=== PATIENT | female | born 1945 | race Caucasian/White ===

== ENCOUNTER 2018-07-31 06:57 | Inpatient (IN) | payer MEDICARE, OTHER ==
[2018-07-31 07:40] LABS: Basophils % (Auto) 0.5 % (0.0-1.8); Eosinophils # (Auto) 0.1 K/mm3 (0.0-0.4); Eosinophils % (Auto) 0.6 % (0.0-4.3); Hematocrit 25.4 % (30.3-42.9); Hemoglobin 8.3 gm/dl (10.1-14.3); Lymphocytes # (Auto) 0.5 K/mm3 (1.2-5.4); Mean Corpuscular HGB Conc 33 % (30-34); Mean Corpuscular Volume 76 fl (79-97); Monocytes # (Auto) 0.5 K/mm3 (0.0-0.8); Platelet Count 275 K/mm3 (140-440); Red Blood Count 3.35 M/mm3 (3.65-5.03); Red Cell Distribution Width 18.6 % (13.2-15.2)
[2018-07-31] MEDS ORDERED: NACL 0.9% 500 ML 500 ML IV ONE (07:59)
[2018-07-31] MEDS ORDERED: ZOFRAN IV ONE ×2 (07:59→10:54)
--- NOTE | 2018-07-31 08:00 | Emergency Department Report ---
ED Abdominal Pain HPI - General Chief Complaint: Nausea/Vomiting/Diarrhea Stated Complaint: NNV Time Seen by Provider: 07/31/18 07:54 Source: patient Mode of arrival: Ambulatory Limitations: No Limitations - History of Present Illness Initial Comments: Patient is a 73-year-old female who presents to emergency room for nausea vomiting and epigastric abdominal pain. Patient states her symptoms started last night at 8 PM and are worsening. Patient states her abdominal pain is a 10 out of 10. Patient states her pain is worse with vomiting and movement. Patient states her pain is better with rest. Patient states her pain is not radiating. Patient states she has a past medical history of diabetes, hypertension and GERD. Medication list reviewed. MD Complaint: abdominal pain -: Sudden Location: epigastric Radiation: none Migration to: no migration Severity: severe Severity scale (0 -10): 10 Quality: sharp Consistency: constant Improves With: eating, vomiting, movement Worsens With: rest Associated Symptoms: nausea, vomiting. denies: diarrhea, fever, chills, constipation, dysuria, hematemesis, hematochezia, melena, hematuria, syncope - Related Data Home Medications Medication Instructions Recorded Confirmed Last Taken Furosemide [Lasix] 20 mg PO QDAY 07/31/18 07/31/18 Unknown HYDROcodone/APAP 5-325 [[place] 1 each PO Q4HR PRN 07/31/18 07/31/18 Unknown 5/325] Pantoprazole Sodium [Protonix] 40 mg PO DAILY 07/31/18 07/31/18 Unknown amLODIPine [Norvasc] 10 mg PO DAILY 07/31/18 07/31/18 Unknown hydrALAZINE [Apresoline TAB] 100 mg PO TID 07/31/18 07/31/18 Unknown Allergies Allergy/AdvReac Type Severity Reaction Status Date / Time No Known Allergies Allergy Verified 07/31/18 07:06 ED Review of Systems ROS: Stated complaint: NNV Other details as noted in HPI Constitutional: denies: chills, fever Eyes: denies: eye pain, eye discharge, vision change ENT: denies: ear pain, throat pain Respiratory: denies: cough, shortness of breath, wheezing Cardiovascular: denies: chest pain, palpitations Endocrine: no symptoms reported Gastrointestinal: abdominal pain, nausea, vomiting. denies: diarrhea Genitourinary: denies: urgency, dysuria, discharge Musculoskeletal: denies: back pain, joint swelling, arthralgia Skin: denies: rash, lesions Neurological: denies: headache, weakness, paresthesias Psychiatric: denies: anxiety, depression Hematological/Lymphatic: denies: easy bleeding, easy bruising ED Past Medical Hx - Past Medical History Previous Medical History?: Yes Hx Hypertension: Yes Hx Diabetes: Yes Hx Liver Disease: No Hx Renal Disease: No - Surgical History Past Surgical History?: No - Family History Family history: no significant - Social History Smoking Status: Never Smoker Substance Use Type: None - Medications Home Medications: Home Medications Medication Instructions Recorded Confirmed Last Taken Type Furosemide [Lasix] 20 mg PO QDAY 07/31/18 07/31/18 Unknown History HYDROcodone/APAP 5-325 [[place] 1 each PO Q4HR PRN 07/31/18 07/31/18 Unknown History 5/325] Pantoprazole Sodium [Protonix] 40 mg PO DAILY 07/31/18 07/31/18 Unknown History amLODIPine [Norvasc] 10 mg PO DAILY 07/31/18 07/31/18 Unknown History hydrALAZINE [Apresoline TAB] 100 mg PO TID 07/31/18 07/31/18 Unknown History ED Physical Exam - General Limitations: No Limitations General appearance: alert, in no apparent distress - Head Head exam: Present: atraumatic, normocephalic - Eye Eye exam: Present: normal appearance - ENT ENT exam: Present: mucous membranes dry - Neck Neck exam: Present: normal inspection - Respiratory Respiratory exam: Present: normal lung sounds bilaterally. Absent: respiratory distress - Cardiovascular Cardiovascular Exam: Present: regular rate, normal rhythm. Absent: systolic murmur, diastolic murmur, rubs, gallop - GI/Abdominal GI/Abdominal exam: Present: soft, tenderness (epigastric tenderness), normal bowel sounds - Extremities Exam Extremities exam: Present: normal inspection - Back Exam Back exam: Present: normal inspection - Neurological Exam Neurological exam: Present: alert, oriented X3 - Psychiatric Psychiatric exam: Present: normal affect, normal mood - Skin Skin exam: Present: warm, dry, intact, normal color. Absent: rash ED Course Vital Signs 07/31/18 07/31/18 07/31/18 07:09 07:41 07:45 Temperature 97.9 F Pulse Rate 90 88 Respiratory 16 11 L 13 Rate Blood Pressure Blood Pressure 164/65 [Left] O2 Sat by Pulse 95 93 Oximetry 07/31/18 07/31/18 07/31/18 08:00 08:15 08:30 Temperature Pulse Rate 88 88 88 Respiratory 17 19 10 L Rate Blood Pressure 159/65 160/65 153/65 Blood Pressure [Left] O2 Sat by Pulse 93 89 91 Oximetry 07/31/18 07/31/18 07/31/18 08:45 08:48 09:00 Temperature 97.7 F Pulse Rate 86 87 Respiratory 17 16 Rate Blood Pressure 154/64 158/66 Blood Pressure [Left] O2 Sat by Pulse 92 91 Oximetry 07/31/18 07/31/18 07/31/18 09:21 09:31 09:45 Temperature Pulse Rate 102 H 86 86 Respiratory 16 15 Rate Blood Pressure 158/66 158/66 158/66 Blood Pressure [Left] O2 Sat by Pulse 96 92 94 Oximetry 07/31/18 07/31/18 07/31/18 10:01 10:15 10:30 Temperature Pulse Rate 87 86 86 Respiratory 20 15 10 L Rate Blood Pressure 158/66 153/67 155/70 Blood Pressure [Left] O2 Sat by Pulse 94 94 91 Oximetry 07/31/18 07/31/18 07/31/18 10:45 11:00 11:15 Temperature Pulse Rate 86 84 91 H Respiratory 14 10 L 21 Rate Blood Pressure 153/66 153/66 150/67 Blood Pressure [Left] O2 Sat by Pulse 93 92 94 Oximetry - Reevaluation(s) Reevaluation #1: Discussed all results with patient. Patient will be admitted to the hospitalist service. Patient agrees to plan of care. Patient denies history of kidney problems but does have history of anemia She is complaining of worsening abdominal pain. Patient was given Dilaudid and more saline. 07/31/18 10:53 - Consultations Consultation #1: Hospitalist consulted for admission. Hospitalist to admit patient. Hospitalist to assume care patient. 07/31/18 10:42 ED Medical Decision Making - Lab Data Result diagrams: 07/31/18 07:30 07/31/18 07:30 - Radiology Data Radiology results: report reviewed CT ABDOMEN PELVIS WITHOUT CONTRAST: HISTORY: abdominal pain. COMPARISON: none. TECHNIQUE: Helical CT in 1.25mm intervals without IV contrast. Sagittal and coronal reconstructions. FINDINGS: Lung bases: Normal heart size. Small layering left pleural effusion and moderate layering right pleural effusion are identified. Mild atelectatic changes are identified in the lower lung zones. No obvious infiltrate. Liver: Normal. Biliary system: Cholecystectomy changes. Pancreas: Normal. Spleen: Normal. Kidneys/ureters/bladder: Normal. Adrenal glands: Normal. Aorta: Mild scattered calcifications. No aneurysm. Intestines: There are a few scattered diverticula throughout the colon. No evidence for bowel obstruction or focal inflammation. Appendix: Normal. Pelvic viscera: Hysterectomy changes are suspected. The ovaries are unremarkable. Ascites: None. Adenopathy: None. Musculoskeletal: Moderate thoracolumbar spondylosis is identified. No evidence for fracture or suspicious bony lesion. IMPRESSION: No acute abdominal process is identified. Bilateral pleural effusions. Mild diverticulosis of the colon. Surgical changes as described. - Medical Decision Making Patient is a 73-year-old female presents emergency room with abdominal pain, nausea and vomiting. Patient's labs are unremarkable except for acute renal failure, anemia and electrolyte imbalances. Patient was admitted to the hospitalist service. Patient's CT scan is negative. - Differential Diagnosis gastroenteritis. Abdominal pain. Nausea and vomiting. Critical Care Time: Yes Critical care attestation.: If time is entered above; I have spent that time in minutes in the direct care of this critically ill patient, excluding procedure time. Critical Care Time: 35 minutes ED Disposition Clinical Impression: Acute renal insufficiency, Hyponatremia, Gastroenteritis, Dehydration Abdominal pain Qualifiers: Abdominal location: epigastric Qualified Code(s): R10.13 - Epigastric pain UTI (urinary tract infection) Qualifiers: Urinary tract infection type: acute cystitis Hematuria presence: with hematuria Qualified Code(s): N30.01 - Acute cystitis with hematuria Intractable nausea and vomiting Qualifiers: Vomiting type: unspecified Qualified Code(s): R11.2 - Nausea with vomiting, unspecified Renal failure Qualifiers: Renal failure chronicity: acute Acute renal failure type: unspecified Qualified Code(s): N17.9 - Acute kidney failure, unspecified Anemia Qualifiers: Anemia type: unspecified type Qualified Code(s): D64.9 - Anemia, unspecified Disposition: DC-09 OP ADMIT IP TO THIS HOSP Is pt being admited?: Yes Does the pt Need Aspirin: No Condition: Critical Time of Disposition: 10:53
[2018-07-31 08:03] LABS: Albumin 3.2 g/dL (3.9-5); Calcium 8.4 mg/dL (8.4-10.2)
[2018-07-31 08:09] LABS: Bacteria,Urine 2+ /HPF (Negative); Bilirubin,Urine NEG (Negative); Blood,Urine NEG (Negative); Color,Urine Yellow (Yellow); Mucus,Urine FEW /HPF; Urobilinogen,Urine < 2.0 mg/dL (<2.0)
[2018-07-31 08:13] LABS: WBC,Urine > 182.0 /HPF (0.0-6.0)
--- NOTE | 2018-07-31 09:42 | Cat Scan Report ---
CT ABDOMEN PELVIS WITHOUT CONTRAST: HISTORY: abdominal pain. COMPARISON: none. TECHNIQUE: Helical CT in 1.25mm intervals without IV contrast. Sagittal and coronal reconstructions. FINDINGS: Lung bases: Normal heart size. Small layering left pleural effusion and moderate layering right pleural effusion are identified. Mild atelectatic changes are identified in the lower lung zones. No obvious infiltrate. Liver: Normal. Biliary system: Cholecystectomy changes. Pancreas: Normal. Spleen: Normal. Kidneys/ureters/bladder: Normal. Adrenal glands: Normal. Aorta: Mild scattered calcifications. No aneurysm. Intestines: There are a few scattered diverticula throughout the colon. No evidence for bowel obstruction or focal inflammation. Appendix: Normal. Pelvic viscera: Hysterectomy changes are suspected. The ovaries are unremarkable. Ascites: None. Adenopathy: None. Musculoskeletal: Moderate thoracolumbar spondylosis is identified. No evidence for fracture or suspicious bony lesion. IMPRESSION: No acute abdominal process is identified. Bilateral pleural effusions. Mild diverticulosis of the colon. Surgical changes as described.
[2018-07-31] MEDS ORDERED: DILAUDID IV ONE (10:54)
[2018-07-31] MEDS ORDERED: NACL 0.9% 1000 ML 1,000 ML IV ONE (10:54)
[2018-07-31] MEDS ORDERED: NACL 0.9% 1000 ML 1,000 ML IV SCH (11:00)
[2018-07-31] MEDS ORDERED: PROVENTIL IH PRN (11:00)
[2018-07-31] MEDS ORDERED: TYLENOL PO PRN (11:00)
[2018-07-31] MEDS ORDERED: SODIUM CHLORIDE FLUSH SYRINGE 10 ML IV PRN (11:00)
[2018-07-31] MEDS ORDERED: D50W (25GM) Syringe IV PRN ×2 (11:01→11:05)
--- NOTE | 2018-07-31 11:05 | History and Physical Report ---
History of Present Illness Date of examination: 07/31/18 Date of admission: 07/31/2018 Chief complaint: Abdominal Pain, Nausea and vomiting. History of present illness: Patient is a 73-year-old female with past medical history of hypertension, GERD, diastolic congestive heart failure, diabetes mellitus, acute kidney injury with an unknown baseline but appears to have a CK D recent hospitalization at [facility] with a creatinine of 1.6, pulmonary edema with a recent contrast-induced nephropathy. I do not have the last creatinine number on discharge from the hospital when she was seen on the . She presents to the hospital complaining of abdominal pain epigastric in nature with associated nausea vomiting worsening to the early hours of this morning. Based on around 8 PM. She was admitted with her in intensity. At the hospital the pain has subsi ded somewhat but still present. Patient was noted to have significantly normal kidney function numbers. She also has been unable to keep any food down. Past History Past Medical History: diabetes, hypertension, hyperlipidemia Past Surgical History: cholecystectomy Social history: no significant social history, full code. denies: smoking, alcohol abuse, prescription drug abuse, IV drug use Family history: no significant family history Medications and Allergies Allergies Allergy/AdvReac Type Severity Reaction Status Date / Time No Known Allergies Allergy Verified 07/31/18 07:06 Home Medications Medication Instructions Recorded Confirmed Last Taken Type Furosemide [Lasix] 20 mg PO QDAY 07/31/18 07/31/18 Unknown History HYDROcodone/APAP 5-325 [[place] 1 each PO Q4HR PRN 07/31/18 07/31/18 Unknown History 5/325] Pantoprazole Sodium [Protonix] 40 mg PO DAILY 07/31/18 07/31/18 Unknown History amLODIPine [Norvasc] 10 mg PO DAILY 07/31/18 07/31/18 Unknown History hydrALAZINE [Apresoline TAB] 100 mg PO TID 07/31/18 07/31/18 Unknown History Active Meds: Active Medications Acetaminophen (Tylenol) 650 mg PO Q4H PRN PRN Reason: Pain MILD(1-3)/Fever >100.5/CASTELLANOS Albuterol (Proventil) 2.5 mg IH Q3HRT PRN PRN Reason: Shortness Of Breath Dextrose (D50w (25gm) Syringe) 50 ml IV PRN PRN PRN Reason: Hypoglycemia Sodium Chloride (Nacl 0.9% 1000 Ml) 1,000 mls @ 999 mls/hr IV BOLUS ONE Stop: 07/31/18 11:54 Sodium Chloride (Nacl 0.9% 1000 Ml) 1,000 mls @ 150 mls/hr IV DIRECT TERA Stop: 08/01/18 23:59 Ceftriaxone Sodium (Rocephin/Ns 1 Gm/50 Ml) 1 gm in 50 mls @ 100 mls/hr IV Q24HR TERA; Protocol Morphine Sulfate (Morphine) 2 mg IV Q4H PRN PRN Reason: Pain, Moderate (4-6) Ondansetron HCl (Zofran) 4 mg IV Q4H PRN PRN Reason: Nausea And Vomiting Sodium Chloride (Sodium Chloride Flush Syringe 10 Ml) 10 ml IV BID TERA Sodium Chloride (Sodium Chloride Flush Syringe 10 Ml) 10 ml IV PRN PRN PRN Reason: LINE FLUSH Exam - Physical Exam Narrative exam: VITAL SIGNS: Reviewed. GENERAL: The patient appeared well nourished and normally developed, Vital signs as documented. HEAD: No signs of head trauma. EYES: Pupils are equal. Extraocular motions intact. EARS: Hearing grossly intact. MOUTH: Oropharynx is normal. NECK: No adenopathy, no JVD. Mildly tender on the right side. CHEST: Chest with clear breath sounds bilaterally. No wheezes, rales, or rhonchi. CARDIAC: Regular rate and rhythm. S1 and S2, without murmurs, gallops, or rubs. VASCULAR: No Edema. Peripheral pulses normal and equal in all extremities. ABDOMEN: Tender at epigastric region with no rebound or guarding, Soft, non distended. no masses palpated. Bowel Sounds normal. MUSCULOSKELETAL: Good range of motion of all major joints. Extremities without clubbing, cyanosis or edema. NEUROLOGIC EXAM: Alert and oriented x 3 No focal sensory or strength deficits. Speech normal. Follows commands. PSYCHIATRIC: Mood normal. SKIN: No rash or lesions. - Constitutional Vitals: Temp Pulse Resp BP Pulse Ox 97.7 F 86 10 L 155/70 91 07/31/18 08:48 07/31/18 10:30 07/31/18 10:30 07/31/18 10:30 07/31/18 10:30 Results - Labs CBC & Chem 7: 07/31/18 07:30 07/31/18 07:30 Labs: Laboratory Last Values WBC 9.5 K/mm3 (4.5-11.0) 07/31/18 07:30 RBC 3.35 M/mm3 (3.65-5.03) L 07/31/18 07:30 Hgb 8.3 gm/dl (10.1-14.3) L 07/31/18 07:30 Hct 25.4 % (30.3-42.9) L 07/31/18 07:30 MCV 76 fl (79-97) L 07/31/18 07:30 MCH 25 pg (28-32) L 07/31/18 07:30 MCHC 33 % (30-34) 07/31/18 07:30 RDW 18.6 % (13.2-15.2) H 07/31/18 07:30 Plt Count 275 K/mm3 (140-440) 07/31/18 07:30 Lymph % (Auto) 5.0 % (13.4-35.0) L 07/31/18 07:30 [place] % (Auto) 5.0 % (0.0-7.3) 07/31/18 07:30 Eos % (Auto) 0.6 % (0.0-4.3) 07/31/18 07:30 Baso % (Auto) 0.5 % (0.0-1.8) 07/31/18 07:30 Lymph # 0.5 K/mm3 (1.2-5.4) L 07/31/18 07:30 [place] # 0.5 K/mm3 (0.0-0.8) 07/31/18 07:30 Eos # 0.1 K/mm3 (0.0-0.4) 07/31/18 07:30 Baso # 0.0 K/mm3 (0.0-0.1) 07/31/18 07:30 Seg Neutrophils % 88.9 % (40.0-70.0) H 07/31/18 07:30 Seg Neutrophils # 8.4 K/mm3 (1.8-7.7) H 07/31/18 07:30 Sodium 126 mmol/L (137-145) L 07/31/18 07:30 Potassium 4.4 mmol/L (3.6-5.0) 07/31/18 07:30 Chloride 90.2 mmol/L (98-107) L 07/31/18 07:30 Carbon Dioxide 20 mmol/L (22-30) L 07/31/18 07:30 20 mmol/L 07/31/18 07:30 BUN 37 mg/dL (7-17) H 07/31/18 07:30 2.7 mg/dL (0.7-1.2) H 07/31/18 07:30 Estimated GFR 17 ml/min 07/31/18 07:30 14 % 07/31/18 07:30 Glucose 198 mg/dL (65-100) H 07/31/18 07:30 Calcium 8.4 mg/dL (8.4-10.2) 07/31/18 07:30 0.30 mg/dL (0.1-1.2) 07/31/18 07:30 AST 106 units/L (5-40) H 07/31/18 07:30 ALT 76 units/L (7-56) H 07/31/18 07:30 99 units/L (35-129) 07/31/18 07:30 6.8 g/dL (6.3-8.2) 07/31/18 07:30 3.2 g/dL (3.9-5) L 07/31/18 07:30 0.9 % 07/31/18 07:30 34 units/L (13-60) 07/31/18 07:30 Yellow (Yellow) 07/31/18 07:58 Cloudy (Clear) 07/31/18 07:58 5.0 (5.0-7.0) 07/31/18 07:58 Ur Specific [place] 1.011 (1.003-1.030) 07/31/18 07:58 100 mg/dl mg/dL (Negative) 07/31/18 07:58 Neg mg/dL (Negative) 07/31/18 07:58 Neg mg/dL (Negative) 07/31/18 07:58 Neg (Negative) 07/31/18 07:58 Neg (Negative) 07/31/18 07:58 Neg (Negative) 07/31/18 07:58 < 2.0 mg/dL (<2.0) 07/31/18 07:58 Ur Leukocyte Esterase Lg (Negative) 07/31/18 07:58 > 182.0 /HPF (0.0-6.0) H 07/31/18 07:58 12.0 /HPF (0.0-6.0) 07/31/18 07:58 U Epithel Cells (Auto) 1.0 /HPF (0-13.0) 07/31/18 07:58 2+ /HPF (Negative) 07/31/18 07:58 3+ /HPF 07/31/18 07:58 Few /HPF 07/31/18 07:58 3+ /HPF 07/31/18 07:58 Assessment and Plan Assessment and plan: Patient is a 73-year-old female with past medical history of hypertension, GERD, diastolic congestive heart failure, diabetes mellitus, acute kidney injury with an unknown baseline but appears to have a CK D recent hospitalization at [facility] with a creatinine of 1.6, pulmonary edema with a recent contrast-induced nephropathy. I do not have the last creatinine number on discharge from the hospital when she was seen on the . She presents to the hospital complaining of abdominal pain epigastric in nature with associated nausea vomiting worsening to the early hours of this morning. Based on around 8 PM. She was admitted with her in intensity. At the hospital the pain has subsided somewhat but still present. Patient was noted to have significantly normal kidney function numbers. She also has been unable to keep any food down. ROS except as noted in HPI all 14 point system has been reviewed with patient and otherwise negative CT ABDOMEN PELVIS WITHOUT CONTRAST: No acute abdominal process is identified. Bilateral pleural effusions. Mild diverticulosis of the colon. Acute kidney injury secondary to visible nephropathy on chronic kidney disease stage III Recent diagnosis of contrast-induced nephropathy Acute cystitis with no evidence of sepsis HypoNatremia Anemia of chronic disease Peritoneal irritation Abdominal pain epigastric in nature Acute gastroenteritis stable diastolic congestive heart failure Recent pulmonary edema Bilateral pleural effusions Diabetes mellitus with hyperglycemia Hypertension Obesity Plan Admit patient to medical surgical unit. IV hydration and monitor Na levels also Monitor pulmonary status, sooner recent pulmonary edema with underlying congestive heart failure diastolic in nature Resume medications except the nephrotoxic medication Start patient on Rocephin. IV. Obtain urine culture Nephrology consult Plan of care discussed with the patient and family at bedside DVT prophylaxis Advance Directives: Yes Plan of care discussed with patient/family: Yes
[2018-07-31] MEDS ORDERED: MAXIPIME/NS 2 GM/100 ML 2 GM/100 ML BAG IV ONE (11:08)
[2018-07-31 11:47] LABS: Creatinine,Urine 108.9 mg/dL (0.1-20.0); Protein/Creatinine Ratio,Urine 1.54
--- NOTE | 2018-07-31 12:18 | Ultrasound Report ---
ULTRASOUND RENAL BILATERAL HISTORY: FLORIDALMA. TECHNIQUE: transabdominal ultrasound with color Doppler interrogation. COMPARISON: none. FINDINGS: The right kidney measures 10.1cm. Right renal cortex: 1.5cm. The left kidney measures 9.7cm. Left renal cortex: 1.3cm. The kidneys are normal size, contour and position. There is increased renal cortical echotexture bilaterally consistent with nonspecific renal parenchymal disease. Corticomedullary differentiation is preserved. A 2.8 cm cyst is noted in the superior left kidney. No evidence for mass, nephrolithiasis, hydronephrosis or perinephric fluid. The views of the bladder and the region of the ureters appear normal. IMPRESSION: Nonspecific renal parenchymal disease. Left renal cyst.
[2018-07-31] MEDS: ZOFRAN IV PRN (13:27)
[2018-07-31] MEDS: HumaLOG SUB-Q SCH ×2 (13:31→22:47)
[2018-07-31] MEDS: ROCEPHIN/NS 1 GM/50 ML 1 GM/50 ML BAG IV SCH (15:50)
[2018-07-31 16:20] LABS: Alanine Aminotransferase 77 units/L (7-56); Albumin 3.2 g/dL (3.9-5); Calcium 8.4 mg/dL (8.4-10.2)
[2018-07-31 16:24] LABS: Bilirubin,Direct < 0.2 mg/dL (0-0.2)
[2018-07-31] MEDS ORDERED: BENTYL PO PRN (19:02)
[2018-07-31] MEDS: MORPHINE IV PRN (20:15)
[2018-08-01] MEDS: ZOFRAN IV PRN ×2 (02:39→07:40)
[2018-08-01 06:58] LABS: Basophils % (Auto) 0.2 % (0.0-1.8); Eosinophils % (Auto) 0.1 % (0.0-4.3); Hematocrit 23.7 % (30.3-42.9); Hemoglobin 7.8 gm/dl (10.1-14.3); Lymphocytes # (Auto) 0.6 K/mm3 (1.2-5.4); Lymphocytes % (Auto) 6.3 % (13.4-35.0); Mean Corpuscular HGB Conc 33 % (30-34); Mean Corpuscular Volume 76 fl (79-97); Monocytes # (Auto) 0.6 K/mm3 (0.0-0.8); Monocytes % (Auto) 6.9 % (0.0-7.3); Platelet Count 291 K/mm3 (140-440); Red Blood Count 3.11 M/mm3 (3.65-5.03); Red Cell Distribution Width 18.8 % (13.2-15.2)
[2018-08-01 07:25] LABS: Calcium 8.3 mg/dL (8.4-10.2)
[2018-08-01] MEDS: MORPHINE IV PRN ×2 (07:40→22:18)
[2018-08-01] MEDS: SODIUM CHLORIDE FLUSH SYRINGE 10 ML IV SCH ×2 (10:16→22:28)
[2018-08-01] MEDS: ROCEPHIN/NS 1 GM/50 ML 1 GM/50 ML BAG IV SCH (10:16)
[2018-08-01 11:11] LABS: Hepatitis B Surface Antigen Non-Reactive (Negative); Hepatitis C Virus Antibody Non-Reactive (NonReactive)
--- NOTE | 2018-08-01 11:59 | Consultation ---
History of Present Illness - Reason for Consult Consult date: 08/01/18 - History of Present Illness This is a 73 year old female who presents to the hospital for abdominal pain with associated nausea and vomiting that has been present for 2 days now per son at bedside. Patient does not speak Telugu but son at bedside does. On evaluation patient was noted to have an elevated serum creatinine of 2.4. Labs from [facility] showed 07/24/18-serum creatinine was 2.51, 07/25/18-serum creatinine was 2.23, 07/26/18 was 1.8. Patient was hospitalized there in [facility] for Acute Diastolic Heart failure and underwent CTA of Chest with IV contrast during that hospitalization and was diagnosed with RASHEL vs Cardiorenal Syndrome as it relates to her renal disease. Her serum creatinine prior to contrast was 1.6 on 07/22/18. She was discharged on 07/29/18 from [facility] on Lasix 20 mg po daily. Renal ultrasound done showed 2.8cm cyst on left kidney and no hydronephrosis. Patient has history of Hypertension, Diabetes Mellitus and GERD. We are being consulted for management of this patient's Acute on Chronic Kidney Disease. Past History Past Medical History: diabetes, hypertension, hyperlipidemia Past Surgical History: cholecystectomy Social history: no significant social history, full code. denies: smoking, alcohol abuse, prescription drug abuse, IV drug use Family history: no significant family history Medications and Allergies Allergies Allergy/AdvReac Type Severity Reaction Status Date / Time No Known Allergies Allergy Verified 07/31/18 07:06 Home Medications Medication Instructions Recorded Confirmed Last Taken Type Furosemide [Lasix] 20 mg PO QDAY 07/31/18 07/31/18 Unknown History HYDROcodone/APAP 5-325 [[place] 1 each PO Q4HR PRN 07/31/18 07/31/18 Unknown History 5/325] Pantoprazole Sodium [Protonix] 40 mg PO DAILY 07/31/18 07/31/18 Unknown History Tamsulosin 0.4 mg PO HS 07/31/18 07/31/18 07/30/18 21:00 History amLODIPine [Norvasc] 10 mg PO DAILY 07/31/18 07/31/18 Unknown History hydrALAZINE [Apresoline TAB] 100 mg PO TID 07/31/18 07/31/18 Unknown History Active Meds: Active Medications Acetaminophen (Tylenol) 650 mg PO Q4H PRN PRN Reason: Pain MILD(1-3)/Fever >100.5/CASTELLANOS Albuterol (Proventil) 2.5 mg IH Q3HRT PRN PRN Reason: Shortness Of Breath Dextrose (D50w (25gm) Syringe) 50 ml IV PRN PRN PRN Reason: Hypoglycemia Dicyclomine HCl (Bentyl) 10 mg PO QID PRN PRN Reason: Nausea And Vomiting Hydralazine HCl (Apresoline) 10 mg IV Q4H PRN PRN Reason: SBP>160 OR DBP>105 Ceftriaxone Sodium (Rocephin/Ns 1 Gm/50 Ml) 1 gm in 50 mls @ 100 mls/hr IV Q24HR [facility]; Protocol Last Admin: 08/01/18 10:16 Dose: 100 mls/hr Documented by: Dextrose/Sodium Chloride (D5ns) 1,000 mls @ 100 mls/hr IV DIRECT TERA Insulin Human Lispro (Humalog) 0 unit SUB-Q Q6HR [facility]; Protocol Last Admin: 07/31/18 22:47 Dose: 2 unit Documented by: Morphine Sulfate (Morphine) 2 mg IV Q4H PRN PRN Reason: Pain, Moderate (4-6) Last Admin: 08/01/18 07:40 Dose: 2 mg Documented by: Ondansetron HCl (Zofran) 4 mg IV Q4H PRN PRN Reason: Nausea And Vomiting Last Admin: 08/01/18 07:40 Dose: 4 mg Documented by: Promethazine HCl (Phenergan) 12.5 mg ME Q6H PRN PRN Reason: Nausea And Vomiting Sodium Chloride (Sodium Chloride Flush Syringe 10 Ml) 10 ml IV BID TERA Last Admin: 08/01/18 10:16 Dose: 10 ml Documented by: Sodium Chloride (Sodium Chloride Flush Syringe 10 Ml) 10 ml IV PRN PRN PRN Reason: LINE FLUSH Review of Systems Constitutional: fatigue, poor appetite, no weight loss, no weight gain, no fever, no chills, no sweats Ears, nose, mouth and throat: no ear pain, no ear discharge, no tinnitis, no decreased hearing, no nose pain, no nasal congestion, no nasal discharge Cardiovascular: no chest pain, no orthopnea, no palpitations, no rapid/irregular heart beat, no edema, no syncope, no lightheadedness, no shortness of breath Respiratory: no cough with sputum, no excessive sputum, no hemoptysis, no shortness of breath, no dyspnea on exertion Gastrointestinal: abdominal pain, nausea, vomiting, no diarrhea, no constipation , no change in bowel habits Genitourinary Female: no pelvic pain, no flank pain, no menorrhagia, no dysuria, no urinary frequency, no urgency Musculoskeletal: no neck stiffness, no neck pain, no shooting arm pain, no arm numbness/tingling, no low back pain, no shooting leg pain Integumentary: no rash, no pruritis, no sores, no wounds, no jaundice Neurological: no transient paralysis, no paralysis, no parathesias, no numbness, no tingling, no seizures, no syncope Psychiatric: change in appetite, no memory loss, no change in sleep habits, no sleep disturbances, no insomnia, no hypersomnia Endocrine: no cold intolerance, no heat intolerance, no polyphagia, no excessive thirst, no polydipsia, no polyuria, no nocturia Exam - Vital Signs Vital signs: Vital Signs Temp Pulse Resp BP Pulse Ox 97.9 F 90 16 164/65 95 07/31/18 07:09 07/31/18 07:09 07/31/18 07:09 07/31/18 07:09 07/31/18 07:09 - General Appearance General appearance: well-developed, fatigue EENT: ATNC, PERRL, hearing intact, vision intact Neck: Present: neck supple, trachea midline Respiratory: Decreased Breath Sounds Heart: regular, S1S2 Gastrointestinal: Present: normoactive bowel sounds Integumentary: warm and dry Neurologic: alert and oriented x3 Musculoskeletal: Present: other (no edema) Results - Lab Results 08/01/18 05:07 08/01/18 05:07 Most recent lab results Calcium 8.3 mg/dL (8.4-10.2) L 08/01/18 05:07 108.9 mg/dL (0.1-20.0) H 07/31/18 Unknown 168 mg/dL (5-11.8) H 07/31/18 Unknown Assessment and Plan Acute Renal Failure seconary to prerenal etiology secondary to N/V on CKD stage 3-4 due to HTN and DM, also recent history of RASHEL and diuretics use with Lasix -Renal labs reviewed. Current serum creatinine 2.6 today, yesterdays' serum creatinine was 2.4. -Labs from [facility] showed 07/24/18-serum creatinine was 2.51, 07/25/18-serum creatinine was 2.23, 07/26/18 was 1.8. -Her serum creatinine prior to CTA contrast at [facility] was 1.6 on 07/22/18. -Renal Ultrasound done showed- known left renal cyst. Monitor outpatiently with renal ultrasound. -Patient has compensated Diastolic Heart Failure -Echo at [facility] on 07/22/18 showed LVEF was 62% -Was on Lasix 20 mg po daily at home -Holding home Lasix for now -On IV hydration with NS@ 75 ml/hr -Obtain CXR to assess volume status -Urine lytes reviewed, has proteinuria likely from DM -Monitor I/O's -Obtain daily weights -Renally dose medications -Will monitor renal function closely Nausea/Vomiting: -Abdominal CT- negative for acute process -NPO -On IVF -Has levated liver enzymes -May need GI consult UTI: -On IV Rocephin -On IV fluids -As per primary Hypertension: -Reconcile home medications -No NITIN or ARB for now until renal function stabilizes Diabetes Mellitus: -On insulin a per primary Compensated Diastolic Heart Failure: -Echo at [facility] on 07/22/18 showed LVEF was 62%
[2018-08-01] MEDS ORDERED: PHENERGAN PR PRN (12:30)
[2018-08-01] MEDS: D5NS 1,000 ML IV SCH (12:46)
--- NOTE | 2018-08-01 12:53 | Progress Note ---
Assessment and Plan Assessment and plan: Patient is a 73-year-old female with past medical history of hypertension, GERD, diastolic congestive heart failure, diabetes mellitus, acute kidney injury with an unknown baseline but appears to have a CK D recent hospitalization at [facility] with a creatinine of 1.6, pulmonary edema with a recent contrast-induced nephropathy. I do not have the last creatinine number on discharge from the hospital when she was seen on the . She presents to the hospital complaining of abdominal pain epigastric in nature with associated nausea vomiting worsening to the early hours of this morning. Based on around 8 PM. She was admitted with her in intensity. At the hospital the pain has subsided somewhat but still present. Patient was noted to have significantly normal kidney function numbers. She also has been unable to keep any food down. CT ABDOMEN PELVIS WITHOUT CONTRAST: No acute abdominal process is identified. Bilateral pleural effusions. Mild diverticulosis of the colon. Acute kidney injury secondary to visible nephropathy on chronic kidney disease stage III and underlying HTN and dm Recent diagnosis of contrast-induced nephropathy Intractable Nausea and vomiting Acute cystitis with no evidence of sepsis HypoNatremia Anemia of chronic disease Left renal cyst Peritoneal irritation Abdominal pain epigastric in nature Acute gastroenteritis stable diastolic congestive heart failure Recent pulmonary edema Bilateral pleural effusions Diabetes mellitus with hyperglycemia Hypertension Obesity Plan Continue supportive care IV hydration and monitor Na levels also Continue to Hold lasix CXR cho at [facility] on 07/22/18 showed LVEF was 62% Labs from [facility] showed 07/24/18-serum creatinine was 2.51, 07/25/18-serum creatinine was 2.23, 07/26/18 was 1.8. Monitor pulmonary status, sooner recent pulmonary edema with underlying congestive heart failure diastolic in nature Resume medications except the nephrotoxic medication Start patient on Rocephin IV. Obtain urine culture Nephrology consult Plan of care discussed with the patient and family at bedside DVT prophylaxis History Interval history: Patient seen and examined still with nausea and vomiting, unable to keep any food down. Hospitalist Physical - Physical exam Narrative exam: VITAL SIGNS: Reviewed. GENERAL: The patient appeared well nourished and normally developed, Vital signs as documented. HEAD: No signs of head trauma. EYES: Pupils are equal. Extraocular motions intact. EARS: Hearing grossly intact. MOUTH: Oropharynx is normal. NECK: No adenopathy, no JVD. Mildly tender on the right side. CHEST: Chest with clear breath sounds bilaterally. No wheezes, rales, or rhonchi. CARDIAC: Regular rate and rhythm. S1 and S2, without murmurs, gallops, or rubs. VASCULAR: No Edema. Peripheral pulses normal and equal in all extremities. ABDOMEN: Tender at epigastric region with no rebound or guarding, Soft, non distended. no masses palpated. Bowel Sounds normal. MUSCULOSKELETAL: Good range of motion of all major joints. Extremities without clubbing, cyanosis or edema. NEUROLOGIC EXAM: Alert and oriented x 3 No focal sensory or strength deficits. Speech normal. Follows commands. PSYCHIATRIC: Mood normal. SKIN: stage 1 decub ulcer POA - Constitutional Vitals: Temp Pulse Resp BP Pulse Ox 99.0 F 83 20 162/70 93 08/01/18 08:01 08/01/18 08:05 08/01/18 07:28 08/01/18 08:05 08/01/18 08:05 Results - Labs CBC & Chem 7: 08/01/18 05:07 08/01/18 05:07 Labs: Laboratory Last Values WBC 9.3 K/mm3 (4.5-11.0) 08/01/18 05:07 RBC 3.11 M/mm3 (3.65-5.03) L 08/01/18 05:07 Hgb 7.8 gm/dl (10.1-14.3) L 08/01/18 05:07 Hct 23.7 % (30.3-42.9) L 08/01/18 05:07 MCV 76 fl (79-97) L 08/01/18 05:07 MCH 25 pg (28-32) L 08/01/18 05:07 MCHC 33 % (30-34) 08/01/18 05:07 RDW 18.8 % (13.2-15.2) H 08/01/18 05:07 Plt Count 291 K/mm3 (140-440) 08/01/18 05:07 Lymph % (Auto) 6.3 % (13.4-35.0) L 08/01/18 05:07 [place] % (Auto) 6.9 % (0.0-7.3) 08/01/18 05:07 Eos % (Auto) 0.1 % (0.0-4.3) 08/01/18 05:07 Baso % (Auto) 0.2 % (0.0-1.8) 08/01/18 05:07 Lymph # 0.6 K/mm3 (1.2-5.4) L 08/01/18 05:07 [place] # 0.6 K/mm3 (0.0-0.8) 08/01/18 05:07 Eos # 0.0 K/mm3 (0.0-0.4) 08/01/18 05:07 Baso # 0.0 K/mm3 (0.0-0.1) 08/01/18 05:07 Seg Neutrophils % 86.5 % (40.0-70.0) H 08/01/18 05:07 Seg Neutrophils # 8.0 K/mm3 (1.8-7.7) H 08/01/18 05:07 Sodium 134 mmol/L (137-145) L 08/01/18 05:07 Potassium 4.6 mmol/L (3.6-5.0) 08/01/18 05:07 Chloride 98.5 mmol/L (98-107) 08/01/18 05:07 Carbon Dioxide 19 mmol/L (22-30) L 08/01/18 05:07 21 mmol/L 08/01/18 05:07 BUN 37 mg/dL (7-17) H 08/01/18 05:07 2.6 mg/dL (0.7-1.2) H 08/01/18 05:07 Estimated GFR 18 ml/min 08/01/18 05:07 14 % 08/01/18 05:07 Glucose 149 mg/dL (65-100) H 08/01/18 05:07 POC Glucose 148 (70-105) H 08/01/18 12:00 306 Mosm/kg 07/31/18 12:31 Calcium 8.3 mg/dL (8.4-10.2) L 08/01/18 05:07 0.20 mg/dL (0.1-1.2) 08/01/18 05:07 < 0.2 mg/dL (0-0.2) 07/31/18 15:07 0.1 mg/dL 07/31/18 15:07 AST 87 units/L (5-40) H 08/01/18 05:07 ALT 78 units/L (7-56) H 08/01/18 05:07 100 units/L (35-129) 08/01/18 05:07 6.5 g/dL (6.3-8.2) 08/01/18 05:07 3.0 g/dL (3.9-5) L 08/01/18 05:07 0.9 % 08/01/18 05:07 34 units/L (13-60) 07/31/18 07:30 Yellow (Yellow) 07/31/18 07:58 Cloudy (Clear) 07/31/18 07:58 5.0 (5.0-7.0) 07/31/18 07:58 Ur Specific [place] 1.011 (1.003-1.030) 07/31/18 07:58 100 mg/dl mg/dL (Negative) 07/31/18 07:58 Neg mg/dL (Negative) 07/31/18 07:58 Neg mg/dL (Negative) 07/31/18 07:58 Neg (Negative) 07/31/18 07:58 Neg (Negative) 07/31/18 07:58 Neg (Negative) 07/31/18 07:58 < 2.0 mg/dL (<2.0) 07/31/18 07:58 Ur Leukocyte Esterase Lg (Negative) 07/31/18 07:58 > 182.0 /HPF (0.0-6.0) H 07/31/18 07:58 12.0 /HPF (0.0-6.0) 07/31/18 07:58 U Epithel Cells (Auto) 1.0 /HPF (0-13.0) 07/31/18 07:58 2+ /HPF (Negative) 07/31/18 07:58 3+ /HPF 07/31/18 07:58 Few /HPF 07/31/18 07:58 3+ /HPF 07/31/18 07:58 268 Mosm/kg 07/31/18 Unknown 108.9 mg/dL (0.1-20.0) H 07/31/18 Unknown Protein/Creatinin Ratio 1.54 07/31/18 Unknown 168 mg/dL (5-11.8) H 07/31/18 Unknown Hepatitis A IgM Ab Non-reactive (NonReactive) 08/01/18 09:36 Hep Bs Antigen Non-reactive (Negative) 08/01/18 09:36 Hep B Core IgM Ab Non-reactive (NonReactive) 08/01/18 09:36 Non-reactive (NonReactive) 08/01/18 09:36 Active Medications - Current Medications Current Medications: Generic Name Dose Route Start Last Admin Trade Name Freq PRN Reason Stop Dose Admin Acetaminophen 650 mg 07/31/18 11:00 Tylenol PO Q4H PRN Pain MILD(1-3)/Fever >100.5/CASTELLANOS Albuterol 2.5 mg 07/31/18 11:00 Proventil IH Q3HRT PRN Shortness Of Breath Dextrose 50 ml 07/31/18 11:05 D50w (25gm) Syringe IV PRN PRN Hypoglycemia Dicyclomine HCl 10 mg 07/31/18 19:02 Bentyl PO QID PRN Nausea And Vomiting Hydralazine HCl 10 mg 08/01/18 09:19 Apresoline IV Q4H PRN SBP>160 OR DBP>105 Ceftriaxone Sodium 1 gm in 50 mls @ 100 mls/hr 07/31/18 12:00 08/01/18 10:16 Rocephin/Ns 1 Gm/50 Ml IV 100 mls/hr Q24HR TERA Administration Protocol Dextrose/Sodium Chloride 1,000 mls @ 100 mls/hr 08/01/18 11:00 08/01/18 12:46 D5ns IV 100 mls/hr DIRECT TERA Administration Insulin Human Lispro 0 unit 07/31/18 12:00 07/31/18 22:47 Humalog SUB-Q 2 unit Q6HR TERA Administration Protocol Morphine Sulfate 2 mg 07/31/18 11:01 08/01/18 07:40 Morphine IV 2 mg Q4H PRN Administration Pain, Moderate (4-6) Ondansetron HCl 4 mg 07/31/18 11:00 08/01/18 07:40 Zofran IV 4 mg Q4H PRN Administration Nausea And Vomiting Promethazine HCl 12.5 mg 08/01/18 12:30 08/01/18 12:46 Phenergan NE 12.5 mg Q6H PRN Administration Nausea And Vomiting Sodium Chloride 10 ml 07/31/18 22:00 08/01/18 10:16 Sodium Chloride Flush Syringe 10 Ml IV 10 ml BID TERA Administration Sodium Chloride 10 ml 07/31/18 11:00 Sodium Chloride Flush Syringe 10 Ml IV PRN PRN LINE FLUSH
[2018-08-01] MEDS: HumaLOG SUB-Q SCH ×2 (13:01→23:44)
--- NOTE | 2018-08-01 16:12 | XRay Report ---
PROCEDURE: XR CHEST 1V AP TECHNIQUE: Chest radiograph single view. HISTORY: Heart Failure COMPARISONS: None . FINDINGS: Limited examination due to prominent soft tissue attenuation. Posterior lung bases obscured. Cardiac silhouette size slightly enlarged possibly with mild vascular congestion. Nonspecific patchy and interstitial opacity is noted in both midlungs. Nonspecific consolidation in both lung bases may be pleural effusions. No pneumothorax. No visible acute displaced fracture. IMPRESSION: Nonspecific consolidation in both lung bases may be pleural effusions Slight cardiomegaly Patchy and interstitial opacities in both mid lungs may be edema, vascular congestion, and/or pneumon itis This document is electronically signed by Juan Troncoso MD., August 01 2018 05:10:28 PM ET
--- NOTE | 2018-08-01 19:47 | Gastroenterology Consultation ---
History of Present Illness - Reason for Consult Consult date: 08/01/18 nausea/vomiting, abdominal pain Requesting physician: KOFI DÍAZ - History of Present Illness This is a 73 yo Australian speaking female with pmh of HTN, GERD, diastolic heart fialure, DM, and FLORIDALMA admitted for epigastric abdominal pain and intractable nausea/vomiting. GI consulted for evaluation of nausea/vomiting. Patient was admitted at [facility] for dyspnea and was treated for diastol ic heart failure and ruled out PE with negative CT chest. She was discharged on Friday and starting , she has had frequent nausea/vomiting. Could not keep anything down associated with vomiting and epigastric pain. No hematemesis or blood in the stool/melena. Prior to this, she had not GI issues. No prior EGD or colonoscopy. During [facility] admission, she had blood transfusion for anemia, which is not clear if acute or chronic. Past History Past Medical History: diabetes, hypertension, hyperlipidemia Past Surgical History: cholecystectomy Social history: no significant social history, full code. denies: smoking, alcohol abuse, prescription drug abuse, IV drug use Family history: no significant family history Medications and Allergies Allergies Allergy/AdvReac Type Severity Reaction Status Date / Time No Known Allergies Allergy Verified 07/31/18 07:06 Home Medications Medication Instructions Recorded Confirmed Last Taken Type Furosemide [Lasix] 20 mg PO QDAY 07/31/18 07/31/18 Unknown History HYDROcodone/APAP 5-325 [[place] 1 each PO Q4HR PRN 07/31/18 07/31/18 Unknown Hist ory 5/325] Pantoprazole Sodium [Protonix] 40 mg PO DAILY 07/31/18 07/31/18 Unknown History Tamsulosin 0.4 mg PO HS 07/31/18 07/31/18 07/30/18 21:00 History amLODIPine [Norvasc] 10 mg PO DAILY 07/31/18 07/31/18 Unknown History hydrALAZINE [Apresoline TAB] 100 mg PO TID 07/31/18 07/31/18 Unknown History Active Meds: Active Medications Acetaminophen (Tylenol) 650 mg PO Q4H PRN PRN Reason: Pain MILD(1-3)/Fever >100.5/CASTELLANOS Albuterol (Proventil) 2.5 mg IH Q3HRT PRN PRN Reason: Shortness Of Breath Dextrose (D50w (25gm) Syringe) 50 ml IV PRN PRN PRN Reason: Hypoglycemia Dicyclomine HCl (Bentyl) 10 mg PO QID PRN PRN Reason: Nausea And Vomiting Hydralazine HCl (Apresoline) 10 mg IV Q4H PRN PRN Reason: SBP>160 OR DBP>105 Ceftriaxone Sodium (Rocephin/Ns 1 Gm/50 Ml) 1 gm in 50 mls @ 100 mls/hr IV Q24HR [facility]; Protocol Last Admin: 08/01/18 10:16 Dose: 100 mls/hr Documented by: Dextrose/Sodium Chloride (D5ns) 1,000 mls @ 100 mls/hr IV DIRECT TERA Last Admin: 08/01/18 12:46 Dose: 100 mls/hr Documented by: Insulin Human Lispro (Humalog) 0 unit SUB-Q Q6HR [facility]; Protocol Last Admin: 08/01/18 13:01 Dose: Not Given Documented by: Morphine Sulfate (Morphine) 2 mg IV Q4H PRN PRN Reason: Pain, Moderate (4-6) Last Admin: 08/01/18 07:40 Dose: 2 mg Documented by: Ondansetron HCl (Zofran) 4 mg IV Q4H PRN PRN Reason: Nausea And Vomiting Last Admin: 08/01/18 07:40 Dose: 4 mg Documented by: Promethazine HCl (Phenergan) 12.5 mg SC Q6H PRN PRN Reason: Nausea And Vomiting Last Admin: 08/01/18 12:46 Dose: 12.5 mg Documented by: Sodium Chloride (Sodium Chloride Flush Syringe 10 Ml) 10 ml IV BID [facility] Last Admin: 08/01/18 10:16 Dose: 10 ml Documented by: Sodium Chloride (Sodium Chloride Flush Syringe 10 Ml) 10 ml IV PRN PRN PRN Reason: LINE FLUSH Review of Systems - Review of Systems All systems: negative Constitutional: no weight loss, no weight gain Cardiovascular: no chest pain, no edema Gastrointestinal: abdominal pain, nausea, vomiting, loss of appetite, no diarrhe a, no BRBPR, no melena, no hematochezia Psychiatric: no anxiety Exam - Constitutional Vital Signs: Temp Pulse Resp BP Pulse Ox 97.8 F 94 H 20 155/49 94 08/01/18 13:02 08/01/18 13:02 08/01/18 13:02 08/01/18 13:02 08/01/18 13:37 General appearance: no acute distress, well-nourished - EENT Eyes: EOM intact ENT: hearing intact, clear oral mucosa - Neck Neck: supple - Respiratory Respiratory effort: normal Respiratory: bilateral: CTA - Breasts Breasts: deferred - Cardiovascular Rhythm: regular Heart Sounds: Present: S1 & S2 Extremities: pulses intact, No edema, normal color, Full ROM - Gastrointestinal General gastrointestinal: Present: soft, tender, non-distended, normal bowel sounds - Integumentary Integumentary: Present: clear, warm, dry - Neurologic Neurological: alert and oriented x3 - Psychiatric Psychiatric: appropriate mood/affect - Labs CBC & Chem 7: 08/01/18 05:07 08/01/18 05:07 Lab Results: Laboratory Results - last 24 hr 07/31/18 08/01/18 08/01/18 21:01 05:07 05:07 WBC 9.3 RBC 3.11 L Hgb 7.8 L Hct 23.7 L MCV 76 L MCH 25 L MCHC 33 RDW 18.8 H Plt Count 291 Lymph % (Auto) 6.3 L [place] % (Auto) 6.9 Eos % (Auto) 0.1 Baso % (Auto) 0.2 Lymph # 0.6 L [place] # 0.6 Eos # 0.0 Baso # 0.0 Seg Neutrophils % 86.5 H Seg Neutrophils # 8.0 H Sodium 134 L Potassium 4.6 Chloride 98.5 Carbon Dioxide 19 L Anion Gap 21 BUN 37 H Creatinine 2.6 H Estimated GFR 18 BUN/Creatinine Ratio 14 Glucose 149 H POC Glucose 213 H Calcium 8.3 L Total Bilirubin 0.20 AST 87 H ALT 78 H Alkaline Phosphatase 100 Total Protein 6.5 Albumin 3.0 L Albumin/Globulin Ratio 0.9 Urine Sodium Hepatitis A IgM Ab Hep Bs Antigen Hep B Core IgM Ab Hepatitis C Antibody 08/01/18 08/01/18 08/01/18 07:50 09:36 12:00 WBC RBC Hgb Hct MCV MCH MCHC RDW Plt Count Lymph % (Auto) [place] % (Auto) Eos % (Auto) Baso % (Auto) Lymph # [place] # Eos # Baso # Seg Neutrophils % Seg Neutrophils # Sodium Potassium Chloride Carbon Dioxide Anion Gap BUN Creatinine Estimated GFR BUN/Creatinine Ratio Glucose POC Glucose 150 H 148 H Calcium Total Bilirubin AST ALT Alkaline Phosphatase Total Protein Albumin Albumin/Globulin Ratio Urine Sodium Hepatitis A IgM Ab Non-reactive Hep Bs Antigen Non-reactive Hep B Core IgM Ab Non-reactive Hepatitis C Antibody Non-reactive 08/01/18 08/01/18 08/01/18 13:01 14:48 16:57 WBC RBC Hgb Hct MCV MCH MCHC RDW Plt Count Lymph % (Auto) [place] % (Auto) Eos % (Auto) Baso % (Auto) Lymph # [place] # Eos # Baso # Seg Neutrophils % Seg Neutrophils # Sodium Potassium Chloride Carbon Dioxide Anion Gap BUN Creatinine Estimated GFR BUN/Creatinine Ratio Glucose POC Glucose 174 H 254 H Calcium Total Bilirubin AST ALT Alkaline Phosphatase Total Protein Albumin Albumin/Globulin Ratio Urine Sodium 43 Hepatitis A IgM Ab Hep Bs Antigen Hep B Core IgM Ab Hepatitis C Antibody - Imaging CT Scan: report reviewed Assessment and Plan This is a 73 yo Australian speaking female with pmh of HTN, GERD, diastolic heart failure, DM, and FLORIDALMA admitted for epigastric abdominal pain and intractable nausea/vomiting. GI consulted for evaluation of nausea/vomiting. # Epigastric pain # Intractable nausea/vomiting - symptoms for past 2-3 days since admission at [facility] for dyspnea due to heart failure. - broad ddx including viral gastroenteritis, gastroparesis, H pylori gastritis, vs PUD. - reviewed CT imaging showing b/l pleural effusion, evidence of cholecystectomy, and diverticulosis. Rec: - continue with antiemetics prn. can switch to reglan prn if zofran and phenergan not effective - consider EGD if symptoms persist. Will need to ensure she is optimized pulmonary marie for sedation given signs of pleural effusion and possible vascular congestion on imaging. - continue with PPI. - will follow. - Patient Problems (1) Abdominal pain Current Visit: Yes Status: Acute Qualifiers: Abdominal location: epigastric Qualified Code(s): R10.13 - Epigastric pain (2) Anemia Current Visit: Yes Status: Acute Qualifiers: Anemia type: unspecified type Qualified Code(s): D64.9 - Anemia, unspecified (3) Intractable nausea and vomiting Current Visit: Yes Status: Acute Qualifiers: Vomiting type: unspecified Qualified Code(s): R11.2 - Nausea with vomiting, unspecified
[2018-08-01] MEDS: PROTONIX PO SCH (22:01)
[2018-08-01] MEDS: APRESOLINE IV PRN (23:42)
[2018-08-02] MEDS: HumaLOG SUB-Q SCH ×3 (00:25→17:54)
[2018-08-02] MEDS: MORPHINE IV PRN (03:40)
[2018-08-02] MEDS: APRESOLINE IV PRN ×3 (03:43→19:57)
[2018-08-02] MEDS: ZOFRAN IV PRN ×2 (03:56→10:36)
[2018-08-02 06:20] LABS: Basophils % (Auto) 0.4 % (0.0-1.8); Eosinophils % (Auto) 0.1 % (0.0-4.3); Hematocrit 26.8 % (30.3-42.9); Hemoglobin 8.7 gm/dl (10.1-14.3); Lymphocytes # (Auto) 0.5 K/mm3 (1.2-5.4); Lymphocytes % (Auto) 5.9 % (13.4-35.0); Mean Corpuscular HGB Conc 33 % (30-34); Mean Corpuscular Volume 76 fl (79-97); Monocytes # (Auto) 0.5 K/mm3 (0.0-0.8); Monocytes % (Auto) 5.3 % (0.0-7.3); Platelet Count 371 K/mm3 (140-440); Red Blood Count 3.51 M/mm3 (3.65-5.03); Red Cell Distribution Width 19.2 % (13.2-15.2)
[2018-08-02 09:45] LABS: Calcium 8.7 mg/dL (8.4-10.2)
--- NOTE | 2018-08-02 09:46 | XRay Report ---
PROCEDURE: XR CHEST ROUTINE 2V TECHNIQUE: PA and lateral chest radiographs were obtained. HISTORY: shortness of breath COMPARISONS: Chest x-ray August 01, 2018. FINDINGS: Heart: Heart size top normal. Mediastinum/Vessels: Trachea midline. Mild atherosclerotic tortuosity aorta. Lungs/Pleural space: Basilar aeration improved. Diaphragms visible. Decreased effusion and airspace opacity. Vascular and interstitial prominence remains.. Small bilateral effusions remain. Bony thorax: No acute osseous abnormality. IMPRESSION: Improved basilar aeration with decreased airspace disease and effusion. This document is electronically signed by Qasim Mrak MD., August 02 2018 10:44:41 AM ET
[2018-08-02] MEDS ORDERED: SOLU-Medrol IV ONE (10:00)
[2018-08-02] MEDS ORDERED: BUMEX IV ONE (10:00)
[2018-08-02] MEDS: DUONEB *Not for PRN Use IH SCH (10:28)
[2018-08-02] MEDS: ROCEPHIN/NS 1 GM/50 ML 1 GM/50 ML BAG IV SCH (10:32)
[2018-08-02] MEDS: D5NS 1,000 ML IV SCH ×2 (10:33→10:39)
--- NOTE | 2018-08-02 11:21 | Progress Note ---
Assessment and Plan Acute Renal Failure seconary to prerenal etiology secondary to N/V on CKD stage 3-4 due to HTN and DM, also recent history of RASHEL and diuretics use with Lasix -Renal labs reviewed. Current serum creatinine trend down to 2.0 today, yesterdays' serum creatinine was 2.6. -Labs from [facility] showed 07/24/18-serum creatinine was 2.51, 07/25/18-serum creatinine was 2.23, 07/26/18 was 1.8. -Her serum creatinine prior to CTA contrast at [facility] was 1.6 on 07/22/18. -Renal Ultrasound done showed- known left renal cyst. Monitor outpatiently with renal ultrasound. -Patient has compensated Diastolic Heart Failure -Echo at [facility] on 07/22/18 showed LVEF was 62% -Was on Lasix 20 mg po daily at home -Holding home Lasix for now -On IV hydration with D5NS@ 50 ml/hr -CXR- improved basilar aeration -Urine lytes reviewed, has proteinuria likely from DM -Monitor I/O's -Obtain daily weights -Renally dose medications -Will continue to monitor renal function closely Nausea/Vomiting: -Abdominal CT- negative for acute process -NPO -On IVF -On po Protonix -Has elevated liver enzymes -GI onboard, planning to do EGD UTI: -On IV Rocephin -On IV fluids -As per primary Hypertension: -Has prn IV Hydralazine. Start Amlodipine 10 mg po daily -No NITIN or ARB for now until renal function stabilizes Diabetes Mellitus: -On insulin a per primary Compensated Diastolic Heart Failure: -Echo at [facility] on 07/22/18 showed LVEF was 62% Subjective Date of service: 08/02/18 Principal diagnosis: ARF on CKD Interval history: Patient seen lying in bed. C/O abdominal pain. Son at bedside. Objective - Vital Signs Vital signs: Vital Signs - 12hr 08/01/18 08/02/18 08/02/18 23:42 03:23 03:43 Temperature 98.5 F Pulse Rate 99 H 98 H 99 H Pulse Rate [ Anterior Bilateral Throughout] Respiratory 20 Rate Respiratory Rate [Anterior Bilateral Throughout] Blood Pressure 190/80 194/87 194/87 O2 Sat by Pulse 94 Oximetry 08/02/18 08/02/18 08/02/18 08:09 10:00 10:29 Temperature 97.9 F Pulse Rate 96 H Pulse Rate [ 94 H Anterior Bilateral Throughout] Respiratory 20 Rate Respiratory 18 Rate [Anterior Bilateral Throughout] Blood Pressure 185/77 O2 Sat by Pulse 95 96 Oximetry - General Appearance General appearance: well-developed, fatigue EENT: ATNC, PERRL Neck: no JVD, supple Respiratory: Present: Decreased Breath Sounds Cardiology: S1S2 Gastrointestinal: normoactive bowel sounds Integumentary: warm and dry Neurologic: other (Awake and alert) Musculoskeletal: other (No edema) - Lab 08/02/18 06:10 08/02/18 06:10 Most recent lab results Calcium 8.7 mg/dL (8.4-10.2) 08/02/18 06:10 Phosphorus 4.10 mg/dL (2.5-4.5) 08/02/18 06:10 108.9 mg/dL (0.1-20.0) H 07/31/18 Unknown 43 mmol/L 08/01/18 14:48 168 mg/dL (5-11.8) H 07/31/18 Unknown Medications & Allergies - Medications Allergies/Adverse Reactions: Allergies No Known Allergies Allergy (Verified 07/31/18 07:06) Home Medications: Home Medications Medication Instructions Recorded Confirmed Last Taken Type Furosemide [Lasix] 20 mg PO QDAY 07/31/18 07/31/18 Unknown History HYDROcodone/APAP 5-325 [[place] 1 each PO Q4HR PRN 07/31/18 07/31/18 Unknown History 5/325] Pantoprazole Sodium [Protonix] 40 mg PO DAILY 07/31/18 07/31/18 Unknown History Tamsulosin 0.4 mg PO HS 07/31/18 07/31/18 07/30/18 21:00 History amLODIPine [Norvasc] 10 mg PO DAILY 07/31/18 07/31/18 Unknown History hydrALAZINE [Apresoline TAB] 100 mg PO TID 07/31/18 07/31/18 Unknown History Active Medications: Generic Name Dose Route Start Last Admin Trade Name Freq PRN Reason Stop Dose Admin Acetaminophen 650 mg 07/31/18 11:00 Tylenol PO Q4H PRN Pain MILD(1-3)/Fever >100.5/CASTELLANOS Albuterol 2.5 mg 07/31/18 11:00 Proventil IH Q3HRT PRN Shortness Of Breath Albuterol/Ipratropium 1 ampul 08/02/18 10:00 08/02/18 10:28 Duoneb *Not For Prn Use* IH 1 ampul Q6HRT TERA Administration Dextrose 50 ml 07/31/18 11:05 D50w (25gm) Syringe IV PRN PRN Hypoglycemia Dicyclomine HCl 10 mg 07/31/18 19:02 Bentyl PO QID PRN Nausea And Vomiting Hydralazine HCl 10 mg 08/01/18 09:19 08/02/18 03:43 Apresoline IV 10 mg Q4H PRN Administration SBP>160 OR DBP>105 Ceftriaxone Sodium 1 gm in 50 mls @ 100 mls/hr 07/31/18 12:00 08/02/18 10:32 Rocephin/Ns 1 Gm/50 Ml IV 100 mls/hr Q24HR TERA Administration Protocol Dextrose/Sodium Chloride 1,000 mls @ 50 mls/hr 08/01/18 11:00 08/02/18 10:39 D5ns IV 100 mls/hr DIRECT TERA Administration Insulin Human Lispro 0 unit 07/31/18 12:00 08/02/18 00:25 Humalog SUB-Q 2 unit Q6HR TERA Administration Protocol Morphine Sulfate 2 mg 07/31/18 11:01 08/02/18 03:40 Morphine IV 2 mg Q4H PRN Administration Pain, Moderate (4-6) Ondansetron HCl 4 mg 07/31/18 11:00 08/02/18 10:36 Zofran IV 4 mg Q4H PRN Administration Nausea And Vomiting Pantoprazole Sodium 40 mg 08/01/18 20:00 08/01/18 22:01 Protonix PO 40 mg QDAY TERA Administration Promethazine HCl 12.5 mg 08/01/18 12:30 08/01/18 12:46 Phenergan [place] 12.5 mg Q6H PRN Administration Nausea And Vomiting Sodium Chloride 10 ml 07/31/18 22:00 08/01/18 22:28 Sodium Chloride Flush Syringe 10 Ml IV 10 ml BID TERA Administration Sodium Chloride 10 ml 07/31/18 11:00 Sodium Chloride Flush Syringe 10 Ml IV PRN PRN LINE FLUSH
[2018-08-02] MEDS ORDERED: NACL 0.9% 1000 ML 1,000 ML ONE (12:52)
[2018-08-02] MEDS: NACL 0.9% 1000 ML 1,000 ML IV SCH (13:07)
--- NOTE | 2018-08-02 13:08 | Anesthesia Consultation ---
Anesthesia Consult and Med Hx Date of service: 08/02/18 - Airway Anesthetic Teeth Evaluation: Good ROM Head & Neck: Adequate Mental/Hyoid Distance: Adequate Mallampati Class: Class II Intubation Access Assessment: Good - Pulmonary Exam CTA: Yes - Cardiac Exam Cardiac Exam: No Murmur - Pre-Operative Health Status ASA Pre-Surgery Classification: ASA3 Proposed Anesthetic Plan: MAC - Cardiovascular System Hx Hypertension: Yes - Endocrine Hx Renal Disease: No Hx Liver Disease: No - Other Systems Hx Obesity: Yes
--- NOTE | 2018-08-02 13:09 | Anesthesia Day of Surgery ---
Anesthesia Day of Surgery - Day of Surgery Patient Examined: Yes Patient H&P Reviewed: Yes Patient is NPO: Yes Beta Blockers: No
[2018-08-02] MEDS ORDERED: DIPRIVAN 10 MG/ML IV ONE (13:15)
[2018-08-02] MEDS ORDERED: AMIDATE IV ONE (13:15)
[2018-08-02] MEDS ORDERED: XYLOCAINE 2% INFILTRATI ONE (13:15)
[2018-08-02] MEDS ORDERED: VERSED ONE (13:15)
[2018-08-02] MEDS ORDERED: HumuLIN R SUB-Q ONE (13:17)
[2018-08-02] MEDS ORDERED: HumuLIN R ONE (13:17)
[2018-08-02] MEDS ORDERED: ZOFRAN ONE (13:20)
[2018-08-02] MEDS ORDERED: NACL 0.9% 100 ML ONE (13:20)
--- NOTE | 2018-08-02 13:42 | Operative Report ---
Operative Report Operative Report: Date of procedure: 08/02/2018 Procedure: Esophagogastroduodenoscopy with biopsies Preprocedure diagnosis: nausea/vomiting, epigastric pain Post procedure diagnosis: antral and body gastritis, thickened mucosa Endoscopist: Lukasz Bailey MD Anesthesia: Monitored anesthesia care per anesthesia department Medications: Propofol per anesthesia Estimated blood loss: 0 After careful discussion of the nature and purpose of the procedure as well as details the technique risks benefits and alternatives consent was obtained. The patient was placed in the left lateral decubitus position and medicated per anesthesia. The tip of the Olympus 190 video scope was passed per orum under direct vision into the esophagus and advanced into the stomach and descending duodenum. The examined portion of the duodenum appeared normal. The scope was withdrawn into the stomach and the stomach then gently insufflated with air. The antrum showed erythematous mucosa with thickened gastric folds in a ring- like fashion. Biopsies were obtained from the antrum and the body. The stomach was further insufflated and the scope was then retroflexed and partially withdrawn. The cardia, and fundus of the stomach revealed normal findings. The distal body showed erythematous congested mucosa. There was a moderate amount of bile in the stomach. The scope was then withdrawn in the forward position. The esophagogastric junction was at 35 cm. The esophageal body was normal throughout. The procedure was was well tolerated and the patient was observed in recovery. Impressions: 1. Gastria antrum and body gastritis with erythema and congestion. 2. Thickened gastric fold in a ring-like circumferential fashion in the distal antrum. 3. Biospies obtained from the antrum and the body. 4. Moderate amount of bile in the stomach. 5. Otherwise, normal exam without any signs of gastric outlet obstruction. Plan: 1. Continue with PPI PO. 2. Add carafate TID between meals. 3. Clear liquid diet. 4. Will switch to reglan if continues to have nausea/vomiting 5. Follow up pathology results.
[2018-08-02] MEDS ORDERED: REGLAN IV PRN (14:10)
--- NOTE | 2018-08-02 14:10 | Progress Note ---
Assessment and Plan Assessment and plan: Patient is a 73-year-old female with past medical history of hypertension, GERD, diastolic congestive heart failure, diabetes mellitus, acute kidney injury with an unknown baseline but appears to have a CK D recent hospitalization at [facility] with a creatinine of 1.6, pulmonary edema with a recent contrast-induced nephropathy. I do not have the last creatinine number on discharge from the hospital when she was seen on the . She presents to the hospital complaining of abdominal pain epigastric in nature with associated nausea vomiting worsening to the early hours of this morning. Based on around 8 PM. She was admitted with her in intensity. At the hospital the pain has subsided somewhat but still present. Patient was noted to have significantly normal kidney function numbers. She also has been unable to keep any food down. Labs from [facility] showed 07/24/18-serum creatinine was 2.51, 07/25/18-serum creatinine was 2.23, 07/26/18 was 1.8. At the time there was concern for GI bleed for which she recieved 2 units of PRBC per family and lso a concern for contrast indued nephropathy Since admission, patient had remained NPO due to nausea with vomiting Hydration was given but renal function got worse Nephrology started trial BUMEX Repeat cxr shows improvement in bilateral opacitiy and pleural effusion Patient underwent EGD which showed Impressions: 1. Gastria antrum and body gastritis with erythema and congestion. 2. Thickened gastric fold in a ring-like circumferential fashion in the distal antrum. 3. Biospies obtained from the antrum and the body. 4. Moderate amount of bile in the stomach. 5. Otherwise, normal exam without any signs of gastric outlet obstruction. Plan: 1. Continue with PPI PO. 2. Add carafate TID between meals. 3. Clear liquid diet. 4. Will switch to reglan if continues to have nausea/vomiting 5. Follow up pathology results. CT ABDOMEN PELVIS WITHOUT CONTRAST: No acute abdominal process is identified. Bilateral pleural effusions. Mild diverticulosis of the colon. Acute kidney injury secondary to visible nephropathy on chronic kidney disease stage III and underlying HTN and dm Gastia antrum with congestion and erythema Recent diagnosis of contrast-induced nephropathy Intractable Nausea and vomiting Acute cystitis with no evidence of sepsis HypoNatremia- resolved Anemia of chronic disease Left renal cyst Peritoneal irritation Abdominal pain epigastric in nature Acute gastroenteritis stable diastolic congestive heart failure Recent pulmonary edema Bilateral pleural effusions Diabetes mellitus with hyperglycemia Hypertension Obesity Plan Continue supportive care stop Fluids Give a dose of Solumedrol IVF discontinued, expect improvement in blood glucose Give bumex Start Reglan as recommended if tolerating diet can be discharged in am Pulmonary eval Echo at [facility] on 07/22/18 showed LVEF was 62% Continue Rocephin Obtain urine culture Nephrology consult noted Plan of care discussed with the patient and family at bedside DVT prophylaxis History Interval history: Patient seen and examined still with nausea and vomiting, unable to keep any food down. Family at bedside. No shortness of breath reported. No fever. Hospitalist Physical - Physical exam Narrative exam: VITAL SIGNS: Reviewed. GENERAL: The patient appeared well nourished and normally developed, ill appearing Vital signs as documented. HEAD: No signs of head trauma. EYES: Pupils are equal. Extraocular motions intact. EARS: Hearing grossly intact. MOUTH: Oropharynx is normal. NECK: No adenopathy, no JVD. Mildly tender on the right side. CHEST: Chest with clear breath sounds bilaterally. No wheezes, rales, or rhonchi. CARDIAC: Regular rate and rhythm. S1 and S2, without murmurs, gallops, or rubs. VASCULAR: No Edema. Peripheral pulses normal and equal in all extremities. ABDOMEN: Tender at epigastric region with no rebound or guarding, Soft, non distended. no masses palpated. Bowel Sounds normal. MUSCULOSKELETAL: Good range of motion of all major joints. Extremities without clubbing, cyanosis or edema. NEUROLOGIC EXAM: Alert and oriented x 3 No focal sensory or strength deficits. Speech normal. Follows commands. PSYCHIATRIC: Mood normal. SKIN: stage 1 decub ulcer POA - Constitutional Vitals: Temp Pulse Resp BP Pulse Ox 98.2 F 101 H 15 188/84 96 08/02/18 12:40 08/02/18 12:40 08/02/18 12:40 08/02/18 12:40 08/02/18 12:40 Results - Labs CBC & Chem 7: 08/02/18 06:10 08/02/18 06:10 Labs: Laboratory Last Values WBC 8.6 K/mm3 (4.5-11.0) 08/02/18 06:10 RBC 3.51 M/mm3 (3.65-5.03) L 08/02/18 06:10 Hgb 8.7 gm/dl (10.1-14.3) L 08/02/18 06:10 Hct 26.8 % (30.3-42.9) L 08/02/18 06:10 MCV 76 fl (79-97) L 08/02/18 06:10 MCH 25 pg (28-32) L 08/02/18 06:10 MCHC 33 % (30-34) 08/02/18 06:10 RDW 19.2 % (13.2-15.2) H 08/02/18 06:10 Plt Count 371 K/mm3 (140-440) 08/02/18 06:10 Lymph % (Auto) 5.9 % (13.4-35.0) L 08/02/18 06:10 [place] % (Auto) 5.3 % (0.0-7.3) 08/02/18 06:10 Eos % (Auto) 0.1 % (0.0-4.3) 08/02/18 06:10 Baso % (Auto) 0.4 % (0.0-1.8) 08/02/18 06:10 Lymph # 0.5 K/mm3 (1.2-5.4) L 08/02/18 06:10 [place] # 0.5 K/mm3 (0.0-0.8) 08/02/18 06:10 Eos # 0.0 K/mm3 (0.0-0.4) 08/02/18 06:10 Baso # 0.0 K/mm3 (0.0-0.1) 08/02/18 06:10 Seg Neutrophils % 88.3 % (40.0-70.0) H 08/02/18 06:10 Seg Neutrophils # 7.6 K/mm3 (1.8-7.7) 08/02/18 06:10 Sodium 138 mmol/L (137-145) 08/02/18 06:10 Potassium 4.3 mmol/L (3.6-5.0) 08/02/18 06:10 Chloride 101.8 mmol/L (98-107) 08/02/18 06:10 Carbon Dioxide 19 mmol/L (22-30) L 08/02/18 06:10 22 mmol/L 08/02/18 06:10 BUN 31 mg/dL (7-17) H 08/02/18 06:10 2.0 mg/dL (0.7-1.2) H 08/02/18 06:10 Estimated GFR 24 ml/min 08/02/18 06:10 16 % 08/02/18 06:10 Glucose 234 mg/dL (65-100) H 08/02/18 06:10 POC Glucose 265 (70-105) H 08/02/18 13:44 306 Mosm/kg 07/31/18 12:31 Calcium 8.7 mg/dL (8.4-10.2) 08/02/18 06:10 Phosphorus 4.10 mg/dL (2.5-4.5) 08/02/18 06:10 0.20 mg/dL (0.1-1.2) 08/01/18 05:07 < 0.2 mg/dL (0-0.2) 07/31/18 15:07 0.1 mg/dL 07/31/18 15:07 AST 87 units/L (5-40) H 08/01/18 05:07 ALT 78 units/L (7-56) H 08/01/18 05:07 100 units/L (35-129) 08/01/18 05:07 6.5 g/dL (6.3-8.2) 08/01/18 05:07 3.0 g/dL (3.9-5) L 08/01/18 05:07 0.9 % 08/01/18 05:07 34 units/L (13-60) 07/31/18 07:30 Yellow (Yellow) 07/31/18 07:58 Cloudy (Clear) 07/31/18 07:58 5.0 (5.0-7.0) 07/31/18 07:58 Ur Specific [place] 1.011 (1.003-1.030) 07/31/18 07:58 100 mg/dl mg/dL (Negative) 07/31/18 07:58 Neg mg/dL (Negative) 07/31/18 07:58 Neg mg/dL (Negative) 07/31/18 07:58 Neg (Negative) 07/31/18 07:58 Neg (Negative) 07/31/18 07:58 Neg (Negative) 07/31/18 07:58 < 2.0 mg/dL (<2.0) 07/31/18 07:58 Ur Leukocyte Esterase Lg (Negative) 07/31/18 07:58 > 182.0 /HPF (0.0-6.0) H 07/31/18 07:58 12.0 /HPF (0.0-6.0) 07/31/18 07:58 U Epithel Cells (Auto) 1.0 /HPF (0-13.0) 07/31/18 07:58 2+ /HPF (Negative) 07/31/18 07:58 3+ /HPF 07/31/18 07:58 Few /HPF 07/31/18 07:58 3+ /HPF 07/31/18 07:58 268 Mosm/kg 07/31/18 Unknown 108.9 mg/dL (0.1-20.0) H 07/31/18 Unknown Protein/Creatinin Ratio 1.54 07/31/18 Unknown 43 mmol/L 08/01/18 14:48 168 mg/dL (5-11.8) H 07/31/18 Unknown Hepatitis A IgM Ab Non-reactive (NonReactive) 08/01/18 09:36 Hep Bs Antigen Non-reactive (Negative) 08/01/18 09:36 Hep B Core IgM Ab Non-reactive (NonReactive) 08/01/18 09:36 Non-reactive (NonReactive) 08/01/18 09:36 Active Medications - Current Medications Current Medications: Generic Name Dose Route Start Last Admin Trade Name Freq PRN Reason Stop Dose Admin Acetaminophen 650 mg 07/31/18 11:00 Tylenol PO Q4H PRN Pain MILD(1-3)/Fever >100.5/CASTELLANOS Albuterol 2.5 mg 07/31/18 11:00 Proventil IH Q3HRT PRN Shortness Of Breath Albuterol/Ipratropium 1 ampul 08/02/18 10:00 08/02/18 10:28 Duoneb *Not For Prn Use* IH 1 ampul Q6HRT TERA Administration Amlodipine Besylate 10 mg 08/02/18 12:00 Norvasc PO QDAY TERA Dextrose 50 ml 07/31/18 11:05 D50w (25gm) Syringe IV PRN PRN Hypoglycemia Dicyclomine HCl 10 mg 07/31/18 19:02 Bentyl PO QID PRN Nausea And Vomiting Hydralazine HCl 10 mg 08/01/18 09:19 08/02/18 03:43 Apresoline IV 10 mg Q4H PRN Administration SBP>160 OR DBP>105 Ceftriaxone Sodium 1 gm in 50 mls @ 100 mls/hr 07/31/18 12:00 08/02/18 10:32 Rocephin/Ns 1 Gm/50 Ml IV 100 mls/hr Q24HR TERA Administration Protocol Sodium Chloride 1,000 mls @ 50 mls/hr 08/02/18 13:00 08/02/18 13:07 Nacl 0.9% 1000 Ml IV 50 mls/hr DIRECT TERA Administration Insulin Human Lispro 0 unit 07/31/18 12:00 08/02/18 12:00 Humalog SUB-Q Not Given Q6HR TERA Protocol Morphine Sulfate 2 mg 07/31/18 11:01 08/02/18 03:40 Morphine IV 2 mg Q4H PRN Administration Pain, Moderate (4-6) Ondansetron HCl 4 mg 07/31/18 11:00 08/02/18 10:36 Zofran IV 4 mg Q4H PRN Administration Nausea And Vomiting Pantoprazole Sodium 40 mg 08/01/18 20:00 08/01/18 22:01 Protonix PO 40 mg QDAY TERA Administration Promethazine HCl 12.5 mg 08/01/18 12:30 08/01/18 12:46 Phenergan [place] 12.5 mg Q6H PRN Administration Nausea And Vomiting Sodium Chloride 10 ml 07/31/18 22:00 08/01/18 22:28 Sodium Chloride Flush Syringe 10 Ml IV 10 ml BID TERA Administration Sodium Chloride 10 ml 07/31/18 11:00 Sodium Chloride Flush Syringe 10 Ml IV PRN PRN LINE FLUSH
[2018-08-02] MEDS: NORVASC PO SCH (14:51)
[2018-08-02] MEDS: PROTONIX PO SCH (14:58)
[2018-08-02] MEDS: SODIUM CHLORIDE FLUSH SYRINGE 10 ML IV SCH ×2 (15:09→22:30)
--- NOTE | 2018-08-02 15:24 | Consultation ---
History of Present Illness Consult date: 08/02/18 Requesting physician: KOFI DÍAZ Reason for consult: pleural effusion, other (Pre-op clearance) History of present illness: PULMONARY/CCM CONSULT NOTE (Full dictation # [id number]) Please see dictated notes for full details A&P: Acute Hypoxemic Resp Failure Bilateral Pleural Effusions (R>L) FLORIDALMA (recent contrast nephropathy) Obesity - get right therapeutic and diagnostic thoracentesis (suspect transudate related to renal failure +/- CMOP) - wean oxygen to keep sats > 90% - s/p EGD (mild to moderate david-op risk) .... thanks for the consult .... further recommendations to follow Past History Past Medical History: diabetes, hypertension, hyperlipidemia Past Surgical History: cholecystectomy Social history: no significant social history, full code. denies: smoking, alcohol abuse, prescription drug abuse, IV drug use Family history: no significant family history Medications and Allergies Allergies Allergy/AdvReac Type Severity Reaction Status Date / Time No Known Allergies Allergy Verified 07/31/18 07:06 Home Medications Medication Instructions Recorded Confirmed Last Taken Type Furosemide [Lasix TAB] 20 mg PO QDAY 07/31/18 08/10/18 08/09/18 History HYDROcodone/APAP 5-325 [[place] 1 each PO Q4HR PRN 07/31/18 08/10/18 Unknown History 5-325 mg TAB] Pantoprazole Sodium [Protonix] 40 mg PO DAILY 07/31/18 08/10/18 08/09/18 History Tamsulosin 0.4 mg PO HS 07/31/18 08/10/18 08/09/18 History amLODIPine [Norvasc] 10 mg PO DAILY 07/31/18 08/10/18 08/09/18 History hydrALAZINE [Apresoline TAB] 100 mg PO TID 07/31/18 08/10/18 08/09/18 History ALBUTEROL Inhaler (OR & NICU) 2 puff IH QID PRN #1 inhalation 08/07/18 08/10/18 Unknown Rx [ProAir HFA Inhaler] Ipratropium/Albuter (Nf) 2 puff IH QID #1 inha 08/07/18 08/10/18 Unknown Rx [Combivent Inhaler] Sucralfate [Carafate] 1 gm PO ACHS #30 tablet 08/07/18 08/10/18 08/09/18 Rx cefUROXime [Ceftin] 250 mg PO Q12H #20 tablet 08/07/18 08/10/18 08/09/18 Rx Insulin Regular, Human [HumuLIN R] 0 unit SQ AC #1 vial 08/11/18 Unknown Rx Active Meds: Active Medications Acetaminophen (Tylenol) 650 mg PO Q4H PRN PRN Reason: Pain MILD(1-3)/Fever >100.5/CASTELLANOS Albuterol (Proventil) 2.5 mg IH Q3HRT PRN PRN Reason: Shortness Of Breath Albuterol/Ipratropium (Duoneb *Not For Prn Use*) 1 ampul IH Q6HRT [facility] Last Admin: 08/02/18 10:28 Dose: 1 ampul Documented by: Amlodipine Besylate (Norvasc) 10 mg PO QDAY [facility] Last Admin: 08/02/18 14:51 Dose: 10 mg Documented by: Dextrose (D50w (25gm) Syringe) 50 ml IV PRN PRN PRN Reason: Hypoglycemia Dicyclomine HCl (Bentyl) 10 mg PO QID PRN PRN Reason: Nausea And Vomiting Hydralazine HCl (Apresoline) 10 mg IV Q4H PRN PRN Reason: SBP>160 OR DBP>105 Last Admin: 08/02/18 14:51 Dose: 10 mg Documented by: Ceftriaxone Sodium (Rocephin/Ns 1 Gm/50 Ml) 1 gm in 50 mls @ 100 mls/hr IV Q24HR [facility]; Protocol Last Admin: 08/02/18 10:32 Dose: 100 mls/hr Documented by: Sodium Chloride (Nacl 0.9% 1000 Ml) 1,000 mls @ 50 mls/hr IV DIRECT TERA Last Admin: 08/02/18 13:07 Dose: 50 mls/hr Documented by: Insulin Human Lispro (Humalog) 0 unit SUB-Q Q6HR [facility]; Protocol Last Admin: 08/02/18 12:00 Dose: Not Given Documented by: Metoclopramide HCl (Reglan) 10 mg IV Q6H PRN PRN Reason: Nausea And Vomiting Last Admin: 08/02/18 14:52 Dose: 10 mg Documented by: Morphine Sulfate (Morphine) 2 mg IV Q4H PRN PRN Reason: Pain, Moderate (4-6) Last Admin: 08/02/18 03:40 Dose: 2 mg Documented by: Ondansetron HCl (Zofran) 4 mg IV Q4H PRN PRN Reason: Nausea And Vomiting Last Admin: 08/02/18 10:36 Dose: 4 mg Documented by: Pantoprazole Sodium (Protonix) 40 mg PO QDAY [facility] Last Admin: 08/02/18 14:58 Dose: 40 mg Documented by: Promethazine HCl (Phenergan) 12.5 mg [place] Q6H PRN PRN Reason: Nausea And Vomiting Last Admin: 08/01/18 12:46 Dose: 12.5 mg Documented by: Sodium Chloride (Sodium Chloride Flush Syringe 10 Ml) 10 ml IV BID [facility] Last Admin: 08/02/18 15:09 Dose: 10 ml Documented by: Sodium Chloride (Sodium Chloride Flush Syringe 10 Ml) 10 ml IV PRN PRN PRN Reason: LINE FLUSH Physical Examination Vital signs: Vital Signs Temp Pulse Resp BP Pulse Ox 97.9 F 90 16 164/65 95 07/31/18 07:09 07/31/18 07:09 07/31/18 07:09 07/31/18 07:09 07/31/18 07:09 Results - Laboratory Findings CBC and BMP: 08/04/18 06:45 08/07/18 05:16 Abnormal lab findings: Abnormal Labs 07/31/18 07/31/18 07/31/18 07:30 07:30 07:58 RBC 3.35 L Hgb 8.3 L Hct 25.4 L MCV 76 L MCH 25 L RDW 18.6 H Lymph % (Auto) 5.0 L Lymph # 0.5 L Seg Neutrophils % 88.9 H Seg Neutrophils # 8.4 H Sodium 126 L Chloride 90.2 L Carbon Dioxide 20 L BUN 37 H Creatinine 2.7 H Glucose 198 H POC Glucose Calcium AST 106 H ALT 76 H Albumin 3.2 L Urine WBC (Auto) > 182.0 H Urine Creatinine Urine Total Protein 07/31/18 07/31/18 07/31/18 15:07 15:07 16:51 RBC Hgb Hct MCV MCH RDW Lymph % (Auto) Lymph # Seg Neutrophils % Seg Neutrophils # Sodium 129 L Chloride 93.4 L Carbon Dioxide 21 L BUN 37 H Creatinine 2.4 H Glucose 198 H POC Glucose 196 H Calcium AST 98 H ALT 77 H Albumin 3.2 L Urine WBC (Auto) Urine Creatinine Urine Total Protein 07/31/18 07/31/18 08/01/18 21:01 Unknown 05:07 RBC 3.11 L Hgb 7.8 L Hct 23.7 L MCV 76 L MCH 25 L RDW 18.8 H Lymph % (Auto) 6.3 L Lymph # 0.6 L Seg Neutrophils % 86.5 H Seg Neutrophils # 8.0 H Sodium Chloride Carbon Dioxide BUN Creatinine Glucose POC Glucose 213 H Calcium AST ALT Albumin Urine WBC (Auto) Urine Creatinine 108.9 H Urine Total Protein 168 H 08/01/18 08/01/18 08/01/18 05:07 07:50 12:00 RBC Hgb Hct MCV MCH RDW Lymph % (Auto) Lymph # Seg Neutrophils % Seg Neutrophils # Sodium 134 L Chloride Carbon Dioxide 19 L BUN 37 H Creatinine 2.6 H Glucose 149 H POC Glucose 150 H 148 H Calcium 8.3 L AST 87 H ALT 78 H Albumin 3.0 L Urine WBC (Auto) Urine Creatinine Urine Total Protein 08/01/18 08/01/18 08/01/18 13:01 16:57 23:28 RBC Hgb Hct MCV MCH RDW Lymph % (Auto) Lymph # Seg Neutrophils % Seg Neutrophils # Sodium Chloride Carbon Dioxide BUN Creatinine Glucose POC Glucose 174 H 254 H 221 H Calcium AST ALT Albumin Urine WBC (Auto) Urine Creatinine Urine Total Protein 08/02/18 08/02/18 08/02/18 06:10 06:10 11:30 RBC 3.51 L Hgb 8.7 L Hct 26.8 L MCV 76 L MCH 25 L RDW 19.2 H Lymph % (Auto) 5.9 L Lymph # 0.5 L Seg Neutrophils % 88.3 H Seg Neutrophils # Sodium Chloride Carbon Dioxide 19 L BUN 31 H Creatinine 2.0 H Glucose 234 H POC Glucose 235 H Calcium AST ALT Albumin Urine WBC (Auto) Urine Creatinine Urine Total Protein 08/02/18 08/02/18 13:08 13:44 RBC Hgb Hct MCV MCH RDW Lymph % (Auto) Lymph # Seg Neutrophils % Seg Neutrophils # Sodium Chloride Carbon Dioxide BUN Creatinine Glucose POC Glucose 279 H 265 H Calcium AST ALT Albumin Urine WBC (Auto) Urine Creatinine Urine Total Protein
[2018-08-02 21:19] LABS: Albumin 3.4 g/dL (3.9-5); Calcium 8.6 mg/dL (8.4-10.2)
[2018-08-02 21:23] LABS: INR 1.15 (0.87-1.13)
[2018-08-03] MEDS: NACL 0.9% 1000 ML 1,000 ML IV SCH (00:08)
[2018-08-03] MEDS: HumaLOG SUB-Q SCH ×4 (00:30→17:51)
[2018-08-03] MEDS: DUONEB *Not for PRN Use IH SCH ×5 (01:00→20:00)
[2018-08-03] MEDS: APRESOLINE IV PRN ×2 (02:52→09:55)
[2018-08-03 06:26] LABS: Hematocrit 27.1 % (30.3-42.9); Hemoglobin 8.7 gm/dl (10.1-14.3); Mean Corpuscular HGB Conc 32 % (30-34); Mean Corpuscular Volume 78 fl (79-97); Platelet Count 387 K/mm3 (140-440); Red Cell Distribution Width 19.6 % (13.2-15.2)
--- NOTE | 2018-08-03 08:51 | Progress Note ---
Assessment and Plan Assessment and plan: --Hypertensive urgency; continue current antihypertensives Add hydralazine 25 3 times a day, when necessary hydralazine IV Closely monitor --Acute kidney injury; secondary to vasomotor nephropathy on chronic kidney disease stage II and underlying diabetic and hypertensive nephropathy, gentle hydration, nephrology following --Recent diagnosis of contrast-induced nephropathy --Intractable Nausea and vomiting ----Acute gastritis; status post EGD Continue PPI, advance diet as tolerated --Acute cystitis with no evidence of sepsis --HypoNatremia- resolved --Anemia of chronic disease --stable diastolic congestive heart failur --Bilateral pleural effusions; thoracentesis scheduled for today Pulmonary following, follow fluid analysis --Diabetes mellitus with hyperglycemia --Obesity; BMI 39.6 --Dnew-gl-oxwmbbzw malnutrition/hypoalbuminemia --DVT prophylaxis --FULL CODE STATUS Plan of care reviewed with the patient, daughter at the bedside and his nurse History Interval history: Patient seen and examined medical records reviewed Communicated through a bilingual family member No new events reported by the nursing Patient feels better , no new complaints Vital signs noted Schedule for thoracentesis today Hospitalist Physical - Constitutional Vitals: Temp Pulse Resp BP Pulse Ox 97.9 F 99 H 18 178/80 96 08/03/18 07:51 08/03/18 08:19 08/03/18 08:19 08/03/18 07:51 08/03/18 08:09 General appearance: Present: no acute distress, well-nourished, obese (morbidly obese) - EENT Eyes: Present: PERRL, EOM intact - Neck Neck: Present: supple, normal ROM - Respiratory Respiratory effort: normal Respiratory: bilateral: diminished, negative: rales, rhonchi, wheezing - Cardiovascular Rhythm: regular Heart Sounds: Present: S1 & S2 - Extremities Extremities: no ischemia, No edema - Abdominal General gastrointestinal: soft, non-tender, non-distended, normal bowel sounds - Integumentary Integumentary: Present: clear, warm - Psychiatric Psychiatric: appropriate mood/affect, cooperative, other (confused at times) - Neurologic Neurologic: moves all extremities Results - Labs CBC & Chem 7: 08/03/18 05:04 08/03/18 05:04 Labs: Laboratory Last Values WBC 10.3 K/mm3 (4.5-11.0) 08/03/18 05:04 RBC 3.50 M/mm3 (3.65-5.03) L 08/03/18 05:04 Hgb 8.7 gm/dl (10.1-14.3) L 08/03/18 05:04 Hct 27.1 % (30.3-42.9) L 08/03/18 05:04 MCV 78 fl (79-97) L 08/03/18 05:04 MCH 25 pg (28-32) L 08/03/18 05:04 MCHC 32 % (30-34) 08/03/18 05:04 RDW 19.6 % (13.2-15.2) H 08/03/18 05:04 Plt Count 387 K/mm3 (140-440) 08/03/18 05:04 Lymph % (Auto) 5.9 % (13.4-35.0) L 08/02/18 06:10 [place] % (Auto) 5.3 % (0.0-7.3) 08/02/18 06:10 Eos % (Auto) 0.1 % (0.0-4.3) 08/02/18 06:10 Baso % (Auto) 0.4 % (0.0-1.8) 08/02/18 06:10 Lymph # 0.5 K/mm3 (1.2-5.4) L 08/02/18 06:10 [place] # 0.5 K/mm3 (0.0-0.8) 08/02/18 06:10 Eos # 0.0 K/mm3 (0.0-0.4) 08/02/18 06:10 Baso # 0.0 K/mm3 (0.0-0.1) 08/02/18 06:10 Seg Neutrophils % 88.3 % (40.0-70.0) H 08/02/18 06:10 Seg Neutrophils # 7.6 K/mm3 (1.8-7.7) 08/02/18 06:10 PT 15.4 Sec. (12.2-14.9) H 08/02/18 20:51 INR 1.15 (0.87-1.13) H 08/02/18 20:51 Sodium 141 mmol/L (137-145) 08/03/18 05:04 Potassium 4.2 mmol/L (3.6-5.0) 08/03/18 05:04 Chloride 107.7 mmol/L (98-107) H 08/03/18 05:04 Carbon Dioxide 21 mmol/L (22-30) L 08/03/18 05:04 17 mmol/L 08/03/18 05:04 BUN 29 mg/dL (7-17) H 08/03/18 05:04 1.8 mg/dL (0.7-1.2) H 08/03/18 05:04 Estimated GFR 28 ml/min 08/03/18 05:04 16 % 08/03/18 05:04 Glucose 222 mg/dL (65-100) H 08/03/18 05:04 POC Glucose 186 (70-105) H 08/03/18 06:05 306 Mosm/kg 07/31/18 12:31 Calcium 9.0 mg/dL (8.4-10.2) 08/03/18 05:04 Phosphorus 3.80 mg/dL (2.5-4.5) 08/03/18 05:04 0.20 mg/dL (0.1-1.2) 08/02/18 20:51 < 0.2 mg/dL (0-0.2) 07/31/18 15:07 0.1 mg/dL 07/31/18 15:07 AST 37 units/L (5-40) 08/02/18 20:51 ALT 65 units/L (7-56) H 08/02/18 20:51 105 units/L (35-129) 08/02/18 20:51 215 units/L (91-180) H 08/02/18 20:51 7.1 g/dL (6.3-8.2) 08/02/18 20:51 3.4 g/dL (3.9-5) L 08/02/18 20:51 0.9 % 08/02/18 20:51 34 units/L (13-60) 07/31/18 07:30 Yellow (Yellow) 07/31/18 07:58 Cloudy (Clear) 07/31/18 07:58 5.0 (5.0-7.0) 07/31/18 07:58 Ur Specific [place] 1.011 (1.003-1.030) 07/31/18 07:58 100 mg/dl mg/dL (Negative) 07/31/18 07:58 Neg mg/dL (Negative) 07/31/18 07:58 Neg mg/dL (Negative) 07/31/18 07:58 Neg (Negative) 07/31/18 07:58 Neg (Negative) 07/31/18 07:58 Neg (Negative) 07/31/18 07:58 < 2.0 mg/dL (<2.0) 07/31/18 07:58 Ur Leukocyte Esterase Lg (Negative) 07/31/18 07:58 > 182.0 /HPF (0.0-6.0) H 07/31/18 07:58 12.0 /HPF (0.0-6.0) 07/31/18 07:58 U Epithel Cells (Auto) 1.0 /HPF (0-13.0) 07/31/18 07:58 2+ /HPF (Negative) 07/31/18 07:58 3+ /HPF 07/31/18 07:58 Few /HPF 07/31/18 07:58 3+ /HPF 07/31/18 07:58 268 Mosm/kg 07/31/18 Unknown 108.9 mg/dL (0.1-20.0) H 07/31/18 Unknown Protein/Creatinin Ratio 1.54 07/31/18 Unknown 43 mmol/L 08/01/18 14:48 168 mg/dL (5-11.8) H 07/31/18 Unknown Hepatitis A IgM Ab Non-reactive (NonReactive) 08/01/18 09:36 Hep Bs Antigen Non-reactive (Negative) 08/01/18 09:36 Hep B Core IgM Ab Non-reactive (NonReactive) 08/01/18 09:36 Non-reactive (NonReactive) 08/01/18 09:36 Active Medications - Current Medications Current Medications: Generic Name Dose Route Start Last Admin Trade Name Freq PRN Reason Stop Dose Admin Acetaminophen 650 mg 07/31/18 11:00 08/02/18 19:55 Tylenol PO 650 mg Q4H PRN Administration Pain MILD(1-3)/Fever >100.5/CASTELLANOS Albuterol 2.5 mg 07/31/18 11:00 Proventil IH Q3HRT PRN Shortness Of Breath Albuterol/Ipratropium 1 ampul 08/02/18 10:00 08/03/18 08:07 Duoneb *Not For Prn Use* IH 1 ampul Q6HRT [facility] Administration Amlodipine Besylate 10 mg 08/02/18 12:00 08/02/18 14:51 Norvasc PO 10 mg QDAY [facility] Administration Dextrose 50 ml 07/31/18 11:05 D50w (25gm) Syringe IV PRN PRN Hypoglycemia Dicyclomine HCl 10 mg 07/31/18 19:02 Bentyl PO QID PRN Nausea And Vomiting Hydralazine HCl 10 mg 08/01/18 09:19 08/03/18 02:52 Apresoline IV 10 mg Q4H PRN Administration SBP>160 OR DBP>105 Hydralazine HCl 25 mg 08/03/18 14:00 Apresoline PO Q8HR [facility] Ceftriaxone Sodium 1 gm in 50 mls @ 100 mls/hr 07/31/18 12:00 08/02/18 10:32 Rocephin/Ns 1 Gm/50 Ml IV 100 mls/hr Q24HR [facility] Administration Protocol Sodium Chloride 1,000 mls @ 50 mls/hr 08/02/18 13:00 08/03/18 00:08 Nacl 0.9% 1000 Ml IV 50 mls/hr DIRECT TERA Administration Insulin Human Lispro 0 unit 07/31/18 12:00 08/03/18 06:10 Humalog SUB-Q Not Given Q6HR [facility] Protocol Metoclopramide HCl 10 mg 08/02/18 14:10 08/02/18 14:52 Reglan IV 10 mg Q6H PRN Administration Nausea And Vomiting Morphine Sulfate 2 mg 07/31/18 11:01 08/02/18 03:40 Morphine IV 2 mg Q4H PRN Administration Pain, Moderate (4-6) Ondansetron HCl 4 mg 07/31/18 11:00 08/02/18 10:36 Zofran IV 4 mg Q4H PRN Administration Nausea And Vomiting Pantoprazole Sodium 40 mg 08/01/18 20:00 08/02/18 14:58 Protonix PO 40 mg QDAY [facility] Administration Promethazine HCl 12.5 mg 08/01/18 12:30 08/01/18 12:46 Phenergan [place] 12.5 mg Q6H PRN Administration Nausea And Vomiting Sodium Chloride 10 ml 07/31/18 22:00 08/02/18 22:30 Sodium Chloride Flush Syringe 10 Ml IV 10 ml BID [facility] Administration Sodium Chloride 10 ml 07/31/18 11:00 Sodium Chloride Flush Syringe 10 Ml IV PRN PRN LINE FLUSH
[2018-08-03] MEDS: ROCEPHIN/NS 1 GM/50 ML 1 GM/50 ML BAG IV SCH (09:47)
[2018-08-03] MEDS: SODIUM CHLORIDE FLUSH SYRINGE 10 ML IV SCH ×2 (09:49→21:51)
--- NOTE | 2018-08-03 11:30 | Progress Note ---
Assessment and Plan Acute Renal Failure seconary to prerenal etiology secondary to N/V on CKD stage 3-4 due to HTN and DM, also recent history of RASHEL and diuretics use with Lasix -Renal labs reviewed. Current serum creatinine trend down to 1.8 today, yesterdays' serum creatinine was 2.0. -Labs from [facility] showed 07/24/18-serum creatinine was 2.51, 07/25/18-serum creatinine was 2.23, 07/26/18 was 1.8. -Her serum creatinine prior to CTA contrast at [facility] was 1.6 on 07/22/18. -Renal Ultrasound done showed- known left renal cyst. Monitor outpatiently with renal ultrasound. -Patient has compensated Diastolic Heart Failure -Echo at [facility] on 07/22/18 showed LVEF was 62% -Was on Lasix 20 mg po daily at home -Holding home Lasix for now -On IV hydration with D5NS@ 50 ml/hr -CXR- improved basilar aeration -Urine lytes reviewed, has proteinuria likely from DM -Monitor I/O's -Obtain daily weights -Renally dose medications -Will continue to monitor renal function closely Nausea/Vomiting: -Abdominal CT- negative for acute process -NPO -On IVF -On po Protonix -Has elevated liver enzymes -GI onboard, planning to do EGD UTI: -On IV Rocephin -On IV fluids -As per primary Hypertension: -Has prn IV Hydralazine. -On Amlodipine 10 mg po daily -No NITIN or ARB for now until renal function stabilizes Diabetes Mellitus: -On insulin a per primary Compensated Diastolic Heart Failure: -Echo at [facility] on 07/22/18 showed LVEF was 62% Subjective Date of service: 08/03/18 Principal diagnosis: ARF on CKD Interval history: Patient seen lying in bed. C/o abdominal pain. Daughter at bedside. Objective - Vital Signs Vital signs: Vital Signs - 12hr 08/03/18 08/03/18 08/03/18 02:18 02:52 07:51 Temperature 97.9 F Pulse Rate 109 H 109 H 98 H Pulse Rate [ Anterior Bilateral Throughout] Respiratory 20 Rate Respiratory Rate [Anterior Bilateral Throughout] Blood Pressure 178/80 178/80 Blood Pressure 178/80 [Left] O2 Sat by Pulse 96 Oximetry 08/03/18 08/03/18 08/03/18 08:09 08:19 09:55 Temperature Pulse Rate 104 H Pulse Rate [ 96 H 99 H Anterior Bilateral Throughout] Respiratory Rate Respiratory 18 18 Rate [Anterior Bilateral Throughout] Blood Pressure 182/76 Blood Pressure [Left] O2 Sat by Pulse 96 95 Oximetry 08/03/18 10:00 Temperature Pulse Rate Pulse Rate [ Anterior Bilateral Throughout] Respiratory 18 Rate Respiratory Rate [Anterior Bilateral Throughout] Blood Pressure Blood Pressure [Left] O2 Sat by Pulse Oximetry - General Appearance General appearance: well-developed, fatigue EENT: ATNC, PERRL Neck: no JVD, supple Respiratory: Present: Decreased Breath Sounds Cardiology: tachycardia, S1S2 Gastrointestinal: normoactive bowel sounds Integumentary: warm and dry Neurologic: other (Awake and alert) Musculoskeletal: other (No edema) - Lab 08/03/18 05:04 08/03/18 05:04 Most recent lab results Calcium 9.0 mg/dL (8.4-10.2) 08/03/18 05:04 Phosphorus 3.80 mg/dL (2.5-4.5) 08/03/18 05:04 108.9 mg/dL (0.1-20.0) H 07/31/18 Unknown 43 mmol/L 08/01/18 14:48 168 mg/dL (5-11.8) H 07/31/18 Unknown Medications & Allergies - Medications Allergies/Adverse Reactions: Allergies No Known Allergies Allergy (Verified 07/31/18 07:06) Home Medications: Home Medications Medication Instructions Recorded Confirmed Last Taken Type Furosemide [Lasix] 20 mg PO QDAY 07/31/18 07/31/18 Unknown History HYDROcodone/APAP 5-325 [[place] 1 each PO Q4HR PRN 07/31/18 07/31/18 Unknown History 5/325] Pantoprazole Sodium [Protonix] 40 mg PO DAILY 07/31/18 07/31/18 Unknown History Tamsulosin 0.4 mg PO HS 07/31/18 07/31/18 07/30/18 21:00 History amLODIPine [Norvasc] 10 mg PO DAILY 07/31/18 07/31/18 Unknown History hydrALAZINE [Apresoline TAB] 100 mg PO TID 07/31/18 07/31/18 Unknown History Active Medications: Generic Name Dose Route Start Last Admin Trade Name Freq PRN Reason Stop Dose Admin Acetaminophen 650 mg 07/31/18 11:00 08/02/18 19:55 Tylenol PO 650 mg Q4H PRN Administration Pain MILD(1-3)/Fever >100.5/CASTELLANOS Albuterol 2.5 mg 07/31/18 11:00 Proventil IH Q3HRT PRN Shortness Of Breath Albuterol/Ipratropium 1 ampul 08/02/18 10:00 08/03/18 08:07 Duoneb *Not For Prn Use* IH 1 ampul Q6HRT [facility] Administration Amlodipine Besylate 10 mg 08/02/18 12:00 08/02/18 14:51 Norvasc PO 10 mg QDAY [facility] Administration Dextrose 50 ml 07/31/18 11:05 D50w (25gm) Syringe IV PRN PRN Hypoglycemia Dicyclomine HCl 10 mg 07/31/18 19:02 Bentyl PO QID PRN Nausea And Vomiting Hydralazine HCl 10 mg 08/01/18 09:19 08/03/18 09:55 Apresoline IV 10 mg Q4H PRN Administration SBP>160 OR DBP>105 Hydralazine HCl 25 mg 08/03/18 14:00 Apresoline PO Q8HR TERA Ceftriaxone Sodium 1 gm in 50 mls @ 100 mls/hr 07/31/18 12:00 08/03/18 09:47 Rocephin/Ns 1 Gm/50 Ml IV 100 mls/hr Q24HR [facility] Administration Protocol Sodium Chloride 1,000 mls @ 50 mls/hr 08/02/18 13:00 08/03/18 00:08 Nacl 0.9% 1000 Ml IV 50 mls/hr DIRECT TERA Administration Insulin Human Lispro 0 unit 07/31/18 12:00 08/03/18 06:10 Humalog SUB-Q Not Given Q6HR [facility] Protocol Metoclopramide HCl 10 mg 08/02/18 14:10 08/02/18 14:52 Reglan IV 10 mg Q6H PRN Administration Nausea And Vomiting Morphine Sulfate 2 mg 07/31/18 11:01 08/02/18 03:40 Morphine IV 2 mg Q4H PRN Administration Pain, Moderate (4-6) Ondansetron HCl 4 mg 07/31/18 11:00 08/02/18 10:36 Zofran IV 4 mg Q4H PRN Administration Nausea And Vomiting Pantoprazole Sodium 40 mg 08/01/18 20:00 08/02/18 14:58 Protonix PO 40 mg QDAY [facility] Administration Promethazine HCl 12.5 mg 08/01/18 12:30 08/01/18 12:46 Phenergan [place] 12.5 mg Q6H PRN Administration Nausea And Vomiting Sodium Chloride 10 ml 07/31/18 22:00 08/03/18 09:49 Sodium Chloride Flush Syringe 10 Ml IV 10 ml BID TERA Administration Sodium Chloride 10 ml 07/31/18 11:00 Sodium Chloride Flush Syringe 10 Ml IV PRN PRN LINE FLUSH
[2018-08-03] MEDS: NORVASC PO SCH (11:40)
[2018-08-03] MEDS: PROTONIX PO SCH (11:41)
--- NOTE | 2018-08-03 13:40 | Ultrasound Report ---
ULTRASOUND THORACENTESIS History: Right pleural effusion Description of procedure: Informed consent was obtained from the patient's daughter who served as personal support worker. Sterile technique was utilized. 1% lidocaine for skin anesthesia. Using ultrasound guidance, a 5 [place] centesis needle was advanced into the right pleural space. There was spontaneous return of clear yellow fluid. 600 cc of fluid was aspirated. 120 cc of fluid was sent to the lab for analysis. No complications. IMPRESSION: Successful ultrasound-guided right thoracentesis.
--- NOTE | 2018-08-03 13:57 | Procedure Note ---
Date of procedure: 08/03/18 Pre-op diagnosis: right pleural effusion Post-op diagnosis: same Procedure: US right thoracentesis Findings: small right pleural fluid Anesthesia: local Surgeon: JUAN BUCHANAN Estimated blood loss: none Pathology: list (120cc) Specimen disposition: to lab Condition: stable Disposition: floor
--- NOTE | 2018-08-03 14:18 | Progress Note ---
Assessment and Plan Patient resting on 2 litres O2. O2 saturation 94%. No acute respiratory distress.Complaining slight cough . Denies hemoptysis.Patient has right thoracentesis to day.Procedure is uneventful. Patients thoracentesis chest xray reported complete evacuation of right pleural effusion. No pneumothorax. - Patient Problems (1) Pleural effusion, right Current Visit: Yes Status: Acute Plan to address problem: Patient undergone right thoracentesis. Pleural fluid results pending. Post thoracentesis chest xray reported complete evacuation of right pleural effusion. No pneumothorax. (2) Hyponatremia Current Visit: Yes Status: Acute Plan to address problem: Improved . Todays NA+ 141. (3) Intractable nausea and vomiting Current Visit: Yes Status: Acute Qualifiers: Vomiting type: unspecified Qualified Code(s): R11.2 - Nausea with vomiting, unspecified Plan to address problem: Management as per primary care and gastroenterology. (4) Abdominal pain Current Visit: Yes Status: Acute Qualifiers: Abdominal location: epigastric Qualified Code(s): R10.13 - Epigastric pain Plan to address problem: Management as per primary care, surgery and gastroenterology. (5) Acute renal insufficiency Current Visit: Yes Status: Acute Plan to address problem: Management as per primary care and nephrology. (6) Anemia Current Visit: Yes Status: Acute Qualifiers: Anemia type: unspecified type Qualified Code(s): D64.9 - Anemia, unspecified Plan to address problem: Management as per primary care. (7) Dehydration Current Visit: Yes Status: Acute Plan to address problem: Improving. Management as per primary care. (8) Gastroenteritis Current Visit: Yes Status: Acute Plan to address problem: Management as per primary care and gastroenterology. (9) Morbid obesity with BMI of 40.0-44.9, adult Current Visit: Yes Status: Acute Plan to address problem: Weight reduction diet when abdominal pain got better. Recommend sleep study as out patient. Subjective Date of service: 08/03/18 Principal diagnosis: ARF on CKD Interval history: Patient resting on 2 litres O2. O2 saturation 94%. No acute respiratory distress.Complaining slight cough . Denies hemoptysis.Patient has right thoracentesis to day.Procedure is uneventful. Patients thoracentesis chest xray reported complete evacuation of right pleural effusion. No pneumothorax. Objective Vital Signs - 12hr 08/03/18 08/03/1819 02:18 02:52 07:51 Temperature 97.9 F Pulse Rate 109 H 109 H 98 H Pulse Rate [ Anterior Bilateral Throughout] Respiratory 20 Rate Respiratory Rate [Anterior Bilateral Throughout] Blood Pressure 178/80 178/80 Blood Pressure 178/80 [Left] O2 Sat by Pulse 96 Oximetry 08/03/18 08/03/18 08/03/18 08:09 08:19 09:55 Temperature Pulse Rate 104 H Pulse Rate [ 96 H 99 H Anterior Bilateral Throughout] Respiratory Rate Respiratory 18 18 Rate [Anterior Bilateral Throughout] Blood Pressure 182/76 Blood Pressure [Left] O2 Sat by Pulse 96 95 Oximetry 08/03/18 08/03/18 08/03/18 10:00 11:40 11:42 Temperature Pulse Rate 100 H 103 H 104 H Pulse Rate [ Anterior Bilateral Throughout] Respiratory 18 Rate Respiratory Rate [Anterior Bilateral Throughout] Blood Pressure 183/78 183/78 Blood Pressure [Left] O2 Sat by Pulse 97 Oximetry 08/03/18 11:54 Temperature 98.4 F Pulse Rate 103 H Pulse Rate [ Anterior Bilateral Throughout] Respiratory 20 Rate Respiratory Rate [Anterior Bilateral Throughout] Blood Pressure 171/85 Blood Pressure [Left] O2 Sat by Pulse 95 Oximetry Constitutional: no acute distress, alert Eyes: non-icteric Neck: supple, no lymphadenopathy Effort: mildly labored Ascultation: Bilateral: diminished breath sounds Cardiovascular: regular rate and rhythm Gastrointestinal: normoactive bowel sounds, soft, non-tender Integumentary: normal Extremities: no cyanosis, no edema Neurologic: normal mental status, non-focal exam, pupils equal and round, CN II- XII normal Psychiatric: mood appropriate CBC and BMP: 08/03/18 05:04 08/03/18 05:04 ABG, PT/INR, D-dimer: PT/INR, D-dimer PT 15.4 Sec. (12.2-14.9) H 08/02/18 20:51 INR 1.15 (0.87-1.13) H 08/02/18 20:51 Abnormal lab findings: Abnormal Labs 07/31/18 07/31/18 07/31/18 07:30 07:30 07:58 RBC 3.35 L Hgb 8.3 L Hct 25.4 L MCV 76 L MCH 25 L RDW 18.6 H Lymph % (Auto) 5.0 L Lymph # 0.5 L Seg Neutrophils % 88.9 H Seg Neutrophils # 8.4 H PT INR Sodium 126 L Chloride 90.2 L Carbon Dioxide 20 L BUN 37 H Creatinine 2.7 H Glucose 198 H POC Glucose Calcium AST 106 H ALT 76 H Lactate Dehydrogenase Albumin 3.2 L Urine WBC (Auto) > 182.0 H Urine Creatinine Urine Total Protein 07/31/18 07/31/18 07/31/18 15:07 15:07 16:51 RBC Hgb Hct MCV MCH RDW Lymph % (Auto) Lymph # Seg Neutrophils % Seg Neutrophils # PT INR Sodium 129 L Chloride 93.4 L Carbon Dioxide 21 L BUN 37 H Creatinine 2.4 H Glucose 198 H POC Glucose 196 H Calcium AST 98 H ALT 77 H Lactate Dehydrogenase Albumin 3.2 L Urine WBC (Auto) Urine Creatinine Urine Total Protein 07/31/18 07/31/18 08/01/18 21:01 Unknown 05:07 RBC 3.11 L Hgb 7.8 L Hct 23.7 L MCV 76 L MCH 25 L RDW 18.8 H Lymph % (Auto) 6.3 L Lymph # 0.6 L Seg Neutrophils % 86.5 H Seg Neutrophils # 8.0 H PT INR Sodium Chloride Carbon Dioxide BUN Creatinine Glucose POC Glucose 213 H Calcium AST ALT Lactate Dehydrogenase Albumin Urine WBC (Auto) Urine Creatinine 108.9 H Urine Total Protein 168 H 08/01/18 08/01/18 08/01/18 05:07 07:50 12:00 RBC Hgb Hct MCV MCH RDW Lymph % (Auto) Lymph # Seg Neutrophils % Seg Neutrophils # PT INR Sodium 134 L Chloride Carbon Dioxide 19 L BUN 37 H Creatinine 2.6 H Glucose 149 H POC Glucose 150 H 148 H Calcium 8.3 L AST 87 H ALT 78 H Lactate Dehydrogenase Albumin 3.0 L Urine WBC (Auto) Urine Creatinine Urine Total Protein 08/01/18 08/01/18 08/01/18 13:01 16:57 23:28 RBC Hgb Hct MCV MCH RDW Lymph % (Auto) Lymph # Seg Neutrophils % Seg Neutrophils # PT INR Sodium Chloride Carbon Dioxide BUN Creatinine Glucose POC Glucose 174 H 254 H 221 H Calcium AST ALT Lactate Dehydrogenase Albumin Urine WBC (Auto) Urine Creatinine Urine Total Protein 08/02/18 08/02/18 08/02/18 06:10 06:10 11:30 RBC 3.51 L Hgb 8.7 L Hct 26.8 L MCV 76 L MCH 25 L RDW 19.2 H Lymph % (Auto) 5.9 L Lymph # 0.5 L Seg Neutrophils % 88.3 H Seg Neutrophils # PT INR Sodium Chloride Carbon Dioxide 19 L BUN 31 H Creatinine 2.0 H Glucose 234 H POC Glucose 235 H Calcium AST ALT Lactate Dehydrogenase Albumin Urine WBC (Auto) Urine Creatinine Urine Total Protein 08/02/18 08/02/18 08/02/18 13:08 13:44 17:35 RBC Hgb Hct MCV MCH RDW Lymph % (Auto) Lymph # Seg Neutrophils % Seg Neutrophils # PT INR Sodium Chloride Carbon Dioxide BUN Creatinine Glucose POC Glucose 279 H 265 H 301 H Calcium AST ALT Lactate Dehydrogenase Albumin Urine WBC (Auto) Urine Creatinine Urine Total Protein 08/02/18 08/02/18 08/03/18 20:51 20:51 00:00 RBC Hgb Hct MCV MCH RDW Lymph % (Auto) Lymph # Seg Neutrophils % Seg Neutrophils # PT 15.4 H INR 1.15 H Sodium 136 L Chloride Carbon Dioxide 21 L BUN 31 H Creatinine 2.0 H Glucose 355 H POC Glucose 313 H Calcium AST ALT 65 H Lactate Dehydrogenase 215 H Albumin 3.4 L Urine WBC (Auto) Urine Creatinine Urine Total Protein 08/03/18 08/03/18 08/03/18 05:04 05:04 06:05 RBC 3.50 L Hgb 8.7 L Hct 27.1 L MCV 78 L MCH 25 L RDW 19.6 H Lymph % (Auto) Lymph # Seg Neutrophils % Seg Neutrophils # PT INR Sodium Chloride 107.7 H Carbon Dioxide 21 L BUN 29 H Creatinine 1.8 H Glucose 222 H POC Glucose 186 H Calcium AST ALT Lactate Dehydrogenase Albumin Urine WBC (Auto) Urine Creatinine Urine Total Protein 08/03/18 12:00 RBC Hgb Hct MCV MCH RDW Lymph % (Auto) Lymph # Seg Neutrophils % Seg Neutrophils # PT INR Sodium Chloride Carbon Dioxide BUN Creatinine Glucose POC Glucose 216 H Calcium AST ALT Lactate Dehydrogenase Albumin Urine WBC (Auto) Urine Creatinine Urine Total Protein Chest x-ray: report reviewed (Post thoracentesis chest xray, complete evacuation of right pleural effusion. No Pneumothorax.), image reviewed
[2018-08-03] MEDS: APRESOLINE PO SCH ×2 (14:31→21:50)
--- NOTE | 2018-08-03 14:54 | XRay Report ---
AP CHEST: HISTORY: Shortness of breath, recent right thoracentesis Recent ultrasound-guided right thoracentesis was performed. Complete evacuation of the right pleural fluid is demonstrated. No pneumothorax. Mild cardiomegaly and pulmonary venous congestion are present. IMPRESSION: Complete evacuation of the right pleural effusion. No pneumothorax.
--- NOTE | 2018-08-03 17:10 | Gastroenterology Progress Note ---
Assessment and Plan This is a 73 yo [place] speaking female with pmh of HTN, GERD, diastolic heart failure, DM, and FLORIDALMA admitted for epigastric abdominal pain and intractable nausea/vomiting. GI consulted for evaluation of nausea/vomiting. # Epigastric pain # Intractable nausea/vomiting - symptoms for past 2-3 days since admission at [facility] for dyspnea due to heart failure. - broad ddx including viral gastroenteritis, gastroparesis, H pylori gastritis, vs PUD. - reviewed CT imaging showing b/l pleural effusion, evidence of cholecystectomy, and diverticulosis. - s/p EGD with findings of gastritis and thickened gastric folds. Bx results pending. - clinically improving. tolerating liquids Rec: - continue with PPI oral - antiemetic prn - supportive care - management for pleural effusion per primary/pulmonary service - will sign off. Please call with questions. - Patient Problems (1) Abdominal pain Current Visit: Yes Status: Acute Qualifiers: Abdominal location: epigastric Qualified Code(s): R10.13 - Epigastric pain (2) Anemia Current Visit: Yes Status: Acute Qualifiers: Anemia type: unspecified type Qualified Code(s): D64.9 - Anemia, unspecified (3) Intractable nausea and vomiting Current Visit: Yes Status: Acute Qualifiers: Vomiting type: unspecified Qualified Code(s): R11.2 - Nausea with vomiting, unspecified Subjective Date of service: 08/03/18 Principal diagnosis: ARF on CKD Interval history: Patient had EGD yesterday with findings of gastritis. Reports tolerating liquids well today no abdominal pain or vomiting. Objective - Constitutional Vitals: Temp Pulse Resp BP Pulse Ox 98.0 F 102 H 20 155/67 99 08/03/18 14:30 08/03/18 15:47 08/03/18 15:47 08/03/18 14:31 08/03/18 14:30 - EENT ENT: hearing intact, clear oral mucosa, dentition normal - Neck Neck: supple, normal ROM - Respiratory Respiratory effort: normal Respiratory: bilateral: CTA - Cardiovascular Rhythm: regular - Extremities Extremities: pulses intact, No edema, normal color, Full ROM - Gastrointestinal General gastrointestinal: Present: soft, non-tender, non-distended, normal bowel sounds - Integumentary Integumentary: Present: clear, warm, dry - Neurologic Neurological: alert and oriented x3 - Labs CBC & Chem 7: 08/03/18 05:04 08/03/18 05:04 Labs: Laboratory Results - last 24 hr 08/02/18 08/02/18 08/02/18 17:35 20:51 20:51 WBC RBC Hgb Hct MCV MCH MCHC RDW Plt Count PT 15.4 H INR 1.15 H Sodium 136 L Potassium 4.2 Chloride 102.3 Carbon Dioxide 21 L Anion Gap 17 BUN 31 H Creatinine 2.0 H Estimated GFR 24 BUN/Creatinine Ratio 16 Glucose 355 H POC Glucose 301 H Calcium 8.6 Phosphorus Total Bilirubin 0.20 AST 37 ALT 65 H Alkaline Phosphatase 105 Lactate Dehydrogenase 215 H Total Protein 7.1 Albumin 3.4 L Albumin/Globulin Ratio 0.9 08/03/18 08/03/18 08/03/18 00:00 05:04 05:04 WBC 10.3 RBC 3.50 L Hgb 8.7 L Hct 27.1 L MCV 78 L MCH 25 L MCHC 32 RDW 19.6 H Plt Count 387 PT INR Sodium 141 Potassium 4.2 Chloride 107.7 H Carbon Dioxide 21 L Anion Gap 17 BUN 29 H Creatinine 1.8 H Estimated GFR 28 BUN/Creatinine Ratio 16 Glucose 222 H POC Glucose 313 H Calcium 9.0 Phosphorus 3.80 Total Bilirubin AST ALT Alkaline Phosphatase Lactate Dehydrogenase Total Protein Albumin Albumin/Globulin Ratio 08/03/18 08/03/18 06:05 12:00 WBC RBC Hgb Hct MCV MCH MCHC RDW Plt Count PT INR Sodium Potassium Chloride Carbon Dioxide Anion Gap BUN Creatinine Estimated GFR BUN/Creatinine Ratio Glucose POC Glucose 186 H 216 H Calcium Phosphorus Total Bilirubin AST ALT Alkaline Phosphatase Lactate Dehydrogenase Total Protein Albumin Albumin/Globulin Ratio
[2018-08-04] MEDS: HumaLOG SUB-Q SCH ×4 (00:34→17:39)
[2018-08-04] MEDS: NACL 0.9% 1000 ML 1,000 ML IV SCH ×2 (00:35→22:20)
[2018-08-04] MEDS: APRESOLINE IV PRN (03:53)
[2018-08-04] MEDS: APRESOLINE PO SCH ×3 (05:44→22:11)
[2018-08-04] MEDS: DUONEB *Not for PRN Use IH SCH ×3 (07:53→19:40)
[2018-08-04 08:12] LABS: Calcium 8.6 mg/dL (8.4-10.2)
[2018-08-04 08:32] LABS: Basophils % (Auto) 0.3 % (0.0-1.8); Eosinophils % (Auto) 0.3 % (0.0-4.3); Hematocrit 26.6 % (30.3-42.9); Hemoglobin 8.8 gm/dl (10.1-14.3); Lymphocytes # (Auto) 0.7 K/mm3 (1.2-5.4); Lymphocytes % (Auto) 6.7 % (13.4-35.0); Mean Corpuscular HGB Conc 33 % (30-34); Mean Corpuscular Volume 77 fl (79-97); Monocytes # (Auto) 0.7 K/mm3 (0.0-0.8); Monocytes % (Auto) 6.7 % (0.0-7.3); Platelet Count 352 K/mm3 (140-440); Red Blood Count 3.47 M/mm3 (3.65-5.03); Red Cell Distribution Width 19.7 % (13.2-15.2)
--- NOTE | 2018-08-04 10:21 | Progress Note ---
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 Cr fairly stable. -Labs from [facility] showed 07/24/18-serum creatinine was 2.51, 07/25/18-serum creatinine was 2.23, 07/26/18 was 1.8. -Her serum creatinine prior to CTA contrast at [facility] was 1.6 on 07/22/18. -Renal Ultrasound done showed- known left renal cyst. Monitor outpatient with renal ultrasound. -Patient has compensated Diastolic Heart Failure -Echo at [facility] on 07/22/18 showed LVEF was 62% -Was on Lasix 20 mg po daily at home -Holding home Lasix for now -On IV hydration with D5NS@ 50 ml/hr -CXR- improved basilar aeration -Urine lytes reviewed, has proteinuria likely from DM -Monitor I/O's -Obtain daily weights -Renally dose medications -Will continue to monitor renal function closely Nausea/Vomiting: -Abdominal CT- negative for acute process -On po Protonix -Has elevated liver enzymes -GI on board UTI: -As per primary Hypertension: -No NITIN or ARB for now until renal function stabilizes Diabetes Mellitus: -On insulin a per primary Compensated Diastolic Heart Failure: -Echo at [facility] on 07/22/18 showed LVEF was 62% Subjective Date of service: 08/04/18 Principal diagnosis: ARF on CKD Interval history: Making urine. Objective - Exam Narrative Exam: General appearance: well-developed, fatigue EENT: ATNC, PERRL Neck: no JVD, supple Respiratory: Present: Decreased Breath Sounds Cardiology: tachycardia, S1S2 Gastrointestinal: normoactive bowel sounds Integumentary: warm and dry Neurologic: other (Awake and alert) Musculoskeletal: other (No edema) - Vital Signs Vital signs: Vital Signs - 12hr 08/04/18 08/04/18 08/04/18 01:51 03:53 05:38 Temperature 97.6 F Pulse Rate 95 H 96 H Pulse Rate [ Anterior Bilateral Throughout] Respiratory 20 Rate Respiratory Rate [Anterior Bilateral Throughout] Blood Pressure 172/76 169/81 Blood Pressure 172/76 [Left] O2 Sat by Pulse 95 Oximetry 08/04/18 08/04/18 08/04/18 05:39 05:44 07:42 Temperature 98.3 F Pulse Rate 104 H 104 H 101 H Pulse Rate [ Anterior Bilateral Throughout] Respiratory 20 Rate Respiratory Rate [Anterior Bilateral Throughout] Blood Pressure 169/81 187/84 Blood Pressure 168/81 [Left] O2 Sat by Pulse 95 Oximetry 08/04/18 08/04/18 08/04/18 07:53 08:02 08:04 Temperature Pulse Rate Pulse Rate [ 99 H 98 H Anterior Bilateral Throughout] Respiratory Rate Respiratory 20 20 Rate [Anterior Bilateral Throughout] Blood Pressure Blood Pressure [Left] O2 Sat by Pulse 95 Oximetry - Lab 08/04/18 06:45 08/04/18 06:45 Most recent lab results Calcium 8.6 mg/dL (8.4-10.2) 08/04/18 06:45 Phosphorus 3.80 mg/dL (2.5-4.5) 08/03/18 05:04 Magnesium 1.80 mg/dL (1.7-2.3) 08/04/18 06:45 108.9 mg/dL (0.1-20.0) H 07/31/18 Unknown 43 mmol/L 08/01/18 14:48 168 mg/dL (5-11.8) H 07/31/18 Unknown Medications & Allergies - Medications Allergies/Adverse Reactions: Allergies No Known Allergies Allergy (Verified 07/31/18 07:06) Home Medications: Home Medications Medication Instructions Recorded Confirmed Last Taken Type Furosemide [Lasix] 20 mg PO QDAY 07/31/18 07/31/18 Unknown History HYDROcodone/APAP 5-325 [Aspers 1 each PO Q4HR PRN 07/31/18 07/31/18 Unknown History 5/325] Pantoprazole Sodium [Protonix] 40 mg PO DAILY 07/31/18 07/31/18 Unknown History Tamsulosin 0.4 mg PO HS 07/31/18 07/31/18 07/30/18 21:00 History amLODIPine [Norvasc] 10 mg PO DAILY 07/31/18 07/31/18 Unknown History hydrALAZINE [Apresoline TAB] 100 mg PO TID 07/31/18 07/31/18 Unknown History Active Medications: Generic Name Dose Route Start Last Admin Trade Name Freq PRN Reason Stop Dose Admin Acetaminophen 650 mg 07/31/18 11:00 06/02/19 19:55 Tylenol PO 650 mg Q4H PRN Administration Pain MILD(1-3)/Fever >100.5/CASTELLANOS Albuterol 2.5 mg 07/31/18 11:00 Proventil IH Q3HRT PRN Shortness Of Breath Albuterol/Ipratropium 1 ampul 08/03/18 20:00 08/04/18 07:53 Duoneb *Not For Prn Use* IH 1 ampul TIDRT TERA Administration Amlodipine Besylate 10 mg 08/02/18 12:00 08/03/18 11:40 Norvasc PO 10 mg QDAY TERA Administration Dextrose 50 ml 07/31/18 11:05 D50w (25gm) Syringe IV PRN PRN Hypoglycemia Dicyclomine HCl 10 mg 07/31/18 19:02 Bentyl PO QID PRN Nausea And Vomiting Hydralazine HCl 10 mg 08/01/18 09:19 08/04/18 03:53 Apresoline IV 10 mg Q4H PRN Administration SBP>160 OR DBP>105 Hydralazine HCl 25 mg 08/03/18 14:00 08/04/18 05:44 Apresoline PO 25 mg Q8HR TERA Administration Ceftriaxone Sodium 1 gm in 50 mls @ 100 mls/hr 07/31/18 12:00 08/03/18 09:47 Rocephin/Ns 1 Gm/50 Ml IV 100 mls/hr Q24HR TERA Administration Protocol Sodium Chloride 1,000 mls @ 50 mls/hr 08/02/18 13:00 08/04/18 00:35 Nacl 0.9% 1000 Ml IV 50 mls/hr DIRECT TERA Administration Insulin Human Lispro 0 unit 07/31/18 12:00 08/04/18 06:35 Humalog SUB-Q 1 unit Q6HR TERA Administration Protocol Metoclopramide HCl 10 mg 08/02/18 14:10 08/02/18 14:52 Reglan IV 10 mg Q6H PRN Administration Nausea And Vomiting Morphine Sulfate 2 mg 07/31/18 11:01 08/02/18 03:40 Morphine IV 2 mg Q4H PRN Administration Pain, Moderate (4-6) Ondansetron HCl 4 mg 07/31/18 11:00 08/02/18 10:36 Zofran IV 4 mg Q4H PRN Administration Nausea And Vomiting Pantoprazole Sodium 40 mg 08/01/18 20:00 08/03/18 11:41 Protonix PO 40 mg QDAY TERA Administration Promethazine HCl 12.5 mg 08/01/18 12:30 08/01/18 12:46 Phenergan MT 12.5 mg Q6H PRN Administration Nausea And Vomiting Sodium Chloride 10 ml 07/31/18 22:00 08/03/18 21:51 Sodium Chloride Flush Syringe 10 Ml IV 10 ml BID TERA Administration Sodium Chloride 10 ml 07/31/18 11:00 Sodium Chloride Flush Syringe 10 Ml IV PRN PRN LINE FLUSH
[2018-08-04] MEDS: ROCEPHIN/NS 1 GM/50 ML 1 GM/50 ML BAG IV SCH (10:26)
[2018-08-04] MEDS: SODIUM CHLORIDE FLUSH SYRINGE 10 ML IV SCH ×2 (10:26→22:12)
[2018-08-04] MEDS: NORVASC PO SCH (10:26)
[2018-08-04] MEDS: PROTONIX PO SCH (10:26)
--- NOTE | 2018-08-04 14:18 | Progress Note ---
Assessment and Plan Patient sleeping on 2 litres O2. O2 saturation 9%. No acute respiratory distress.Patient has right thoracentesis yesterday.Procedure is uneventful. Patients thoracentesis chest xray reported complete evacuation of right pleural effusion. No pneumothorax. Pleural fluid results still pending. - Patient Problems (1) Pleural effusion, right Current Visit: Yes Status: Acute Plan to address problem: Patient undergone right thoracentesis. Pleural fluid results pending. Post thoracentesis chest xray reported complete evacuation of right pleural effusion. No pneumothorax. (2) Hyponatremia Current Visit: Yes Status: Acute Plan to address problem: Improved . Todays NA+ 139. (3) Intractable nausea and vomiting Current Visit: Yes Status: Acute Qualifiers: Vomiting type: unspecified Qualified Code(s): R11.2 - Nausea with vomiting, unspecified Plan to address problem: Management as per primary care and gastroenterology. (4) Abdominal pain Current Visit: Yes Status: Acute Qualifiers: Abdominal location: epigastric Qualified Code(s): R10.13 - Epigastric pain Plan to address problem: Management as per primary care, surgery and gastroenterology. (5) Acute renal insufficiency Current Visit: Yes Status: Acute Plan to address problem: Management as per primary care and nephrology. (6) Anemia Current Visit: Yes Status: Acute Qualifiers: Anemia type: unspecified type Qualified Code(s): D64.9 - Anemia, uns pecified Plan to address problem: Management as per primary care. (7) Dehydration Current Visit: Yes Status: Acute Plan to address problem: Improving. Management as per primary care. (8) Gastroenteritis Current Visit: Yes Status: Acute Plan to address problem: Management as per primary care and gastroenterology. (9) Morbid obesity with BMI of 40.0-44.9, adult Current Visit: Yes Status: Acute Plan to address problem: Weight reduction diet when abdominal pain got better. Recommend sleep study as out patient. Subjective Date of service: 08/04/18 Principal diagnosis: ARF on CKD Interval history: Patient sleeping on 2 litres O2. O2 saturation 9%. No acute respiratory distress.Patient has right thoracentesis yesterday.Procedure is uneventful. Patients thoracentesis chest xray reported complete evacuation of right pleural effusion. No pneumothorax. Pleural fluid results still pending. Objective Vital Signs - 12hr 08/04/18 08/04/18 08/04/18 03:53 05:38 05:39 Temperature Pulse Rate 96 H 104 H Pulse Rate [ Anterior Bilateral Throughout] Respiratory Rate Respiratory Rate [Anterior Bilateral Throughout] Blood Pressure 172/76 169/81 Blood Pressure 168/81 [Left] O2 Sat by Pulse Oximetry 08/04/18 08/04/18 08/04/18 05:44 07:42 07:53 Temperature 98.3 F Pulse Rate 104 H 101 H Pulse Rate [ 99 H Anterior Bilateral Throughout] Respiratory 20 Rate Respiratory 20 Rate [Anterior Bilateral Throughout] Blood Pressure 169/81 187/84 Blood Pressure [Left] O2 Sat by Pulse 95 Oximetry 08/04/18 08/04/18 08/04/18 08:02 08:04 10:00 Temperature Pulse Rate 101 H Pulse Rate [ 98 H Anterior Bilateral Throughout] Respiratory Rate Respiratory 20 Rate [Anterior Bilateral Throughout] Blood Pressure Blood Pressure [Left] O2 Sat by Pulse 95 Oximetry 08/04/18 08/04/18 08/04/18 10:26 13:48 13:57 Temperature Pulse Rate 101 H Pulse Rate [ 94 H 92 H Anterior Bilateral Throughout] Respiratory Rate Respiratory 20 20 Rate [Anterior Bilateral Throughout] Blood Pressure 187/84 Blood Pressure [Left] O2 Sat by Pulse Oximetry Constitutional: no acute distress, asleep Eyes: non-icteric Neck: supple, no lymphadenopathy Effort: mildly labored Ascultation: Bilateral: diminished breath sounds Cardiovascular: regular rate and rhythm Gastrointestinal: normoactive bowel sounds, soft, non-tender Integumentary: normal Extremities: no cyanosis, no edema Neurologic: normal mental status, non-focal exam, pupils equal and round, CN II- XII normal Psychiatric: mood appropriate CBC and BMP: 08/04/18 06:45 08/04/18 06:45 ABG, PT/INR, D-dimer: PT/INR, D-dimer PT 15.4 Sec. (12.2-14.9) H 08/02/18 20:51 INR 1.15 (0.87-1.13) H 08/02/18 20:51 Abnormal lab findings: Abnormal Labs 07/31/18 07/31/18 07/31/18 07:30 07:30 07:58 RBC 3.35 L Hgb 8.3 L Hct 25.4 L MCV 76 L MCH 25 L RDW 18.6 H Lymph % (Auto) 5.0 L Lymph # 0.5 L Seg Neutrophils % 88.9 H Seg Neutrophils # 8.4 H PT INR Sodium 126 L Chloride 90.2 L Carbon Dioxide 20 L BUN 37 H Creatinine 2.7 H Glucose 198 H POC Glucose Calcium AST 106 H ALT 76 H Lactate Dehydrogenase Albumin 3.2 L Urine WBC (Auto) > 182.0 H Urine Creatinine Urine Total Protein 07/31/18 07/31/18 07/31/18 15:07 15:07 16:51 RBC Hgb Hct MCV MCH RDW Lymph % (Auto) Lymph # Seg Neutrophils % Seg Neutrophils # PT INR Sodium 129 L Chloride 93.4 L Carbon Dioxide 21 L BUN 37 H Creatinine 2.4 H Glucose 198 H POC Glucose 196 H Calcium AST 98 H ALT 77 H Lactate Dehydrogenase Albumin 3.2 L Urine WBC (Auto) Urine Creatinine Urine Total Protein 07/31/18 07/31/18 08/01/18 21:01 Unknown 05:07 RBC 3.11 L Hgb 7.8 L Hct 23.7 L MCV 76 L MCH 25 L RDW 18.8 H Lymph % (Auto) 6.3 L Lymph # 0.6 L Seg Neutrophils % 86.5 H Seg Neutrophils # 8.0 H PT INR Sodium Chloride Carbon Dioxide BUN Creatinine Glucose POC Glucose 213 H Calcium AST ALT Lactate Dehydrogenase Albumin Urine WBC (Auto) Urine Creatinine 108.9 H Urine Total Protein 168 H 08/01/18 08/01/18 08/01/18 05:07 07:50 12:00 RBC Hgb Hct MCV MCH RDW Lymph % (Auto) Lymph # Seg Neutrophils % Seg Neutrophils # PT INR Sodium 134 L Chloride Carbon Dioxide 19 L BUN 37 H Creatinine 2.6 H Glucose 149 H POC Glucose 150 H 148 H Calcium 8.3 L AST 87 H ALT 78 H Lactate Dehydrogenase Albumin 3.0 L Urine WBC (Auto) Urine Creatinine Urine Total Protein 08/01/18 08/01/18 08/01/18 13:01 16:57 23:28 RBC Hgb Hct MCV MCH RDW Lymph % (Auto) Lymph # Seg Neutrophils % Seg Neutrophils # PT INR Sodium Chloride Carbon Dioxide BUN Creatinine Glucose POC Glucose 174 H 254 H 221 H Calcium AST ALT Lactate Dehydrogenase Albumin Urine WBC (Auto) Urine Creatinine Urine Total Protein 08/02/18 08/02/18 08/02/18 06:10 06:10 11:30 RBC 3.51 L Hgb 8.7 L Hct 26.8 L MCV 76 L MCH 25 L RDW 19.2 H Lymph % (Auto) 5.9 L Lymph # 0.5 L Seg Neutrophils % 88.3 H Seg Neutrophils # PT INR Sodium Chloride Carbon Dioxide 19 L BUN 31 H Creatinine 2.0 H Glucose 234 H POC Glucose 235 H Calcium AST ALT Lactate Dehydrogenase Albumin Urine WBC (Auto) Urine Creatinine Urine Total Protein 08/02/18 08/02/18 08/02/18 13:08 13:44 17:35 RBC Hgb Hct MCV MCH RDW Lymph % (Auto) Lymph # Seg Neutrophils % Seg Neutrophils # PT INR Sodium Chloride Carbon Dioxide BUN Creatinine Glucose POC Glucose 279 H 265 H 301 H Calcium AST ALT Lactate Dehydrogenase Albumin Urine WBC (Auto) Urine Creatinine Urine Total Protein 08/02/18 08/02/18 08/03/18 20:51 20:51 00:00 RBC Hgb Hct MCV MCH RDW Lymph % (Auto) Lymph # Seg Neutrophils % Seg Neutrophils # PT 15.4 H INR 1.15 H Sodium 136 L Chloride Carbon Dioxide 21 L BUN 31 H Creatinine 2.0 H Glucose 355 H POC Glucose 313 H Calcium AST ALT 65 H Lactate Dehydrogenase 215 H Albumin 3.4 L Urine WBC (Auto) Urine Creatinine Urine Total Protein 08/03/18 08/03/18 08/03/18 05:04 05:04 06:05 RBC 3.50 L Hgb 8.7 L Hct 27.1 L MCV 78 L MCH 25 L RDW 19.6 H Lymph % (Auto) Lymph # Seg Neutrophils % Seg Neutrophils # PT INR Sodium Chloride 107.7 H Carbon Dioxide 21 L BUN 29 H Creatinine 1.8 H Glucose 222 H POC Glucose 186 H Calcium AST ALT Lactate Dehydrogenase Albumin Urine WBC (Auto) Urine Creatinine Urine Total Protein 08/03/18 08/03/18 08/04/18 12:00 17:33 00:12 RBC Hgb Hct MCV MCH RDW Lymph % (Auto) Lymph # Seg Neutrophils % Seg Neutrophils # PT INR Sodium Chloride Carbon Dioxide BUN Creatinine Glucose POC Glucose 216 H 287 H 232 H Calcium AST ALT Lactate Dehydrogenase Albumin Urine WBC (Auto) Urine Creatinine Urine Total Protein 08/04/18 08/04/18 08/04/18 06:05 06:45 06:45 RBC 3.47 L Hgb 8.8 L Hct 26.6 L MCV 77 L MCH 25 L RDW 19.7 H Lymph % (Auto) 6.7 L Lymph # 0.7 L Seg Neutrophils % 86.0 H Seg Neutrophils # 9.4 H PT INR Sodium Chloride Carbon Dioxide 21 L BUN 29 H Creatinine 2.0 H Glucose 176 H POC Glucose 174 H Calcium AST ALT Lactate Dehydrogenase Albumin Urine WBC (Auto) Urine Creatinine Urine Total Protein 08/04/18 12:14 RBC Hgb Hct MCV MCH RDW Lymph % (Auto) Lymph # Seg Neutrophils % Seg Neutrophils # PT INR Sodium Chloride Carbon Dioxide BUN Creatinine Glucose POC Glucose 267 H Calcium AST ALT Lactate Dehydrogenase Albumin Urine WBC (Auto) Urine Creatinine Urine Total Protein
--- NOTE | 2018-08-04 18:22 | Progress Note ---
Assessment and Plan Assessment and plan: --Hypertensive urgency; continue current antihypertensives Add hydralazine 25 3 times a day, when necessary hydralazine IV Closely monitor --Acute kidney injury; secondary to vasomotor nephropathy on chronic kidney disease stage II and underlying diabetic and hypertensive nephropathy, gentle hydration, nephrology following --Recent diagnosis of contrast-induced nephropathy --Intractable Nausea and vomiting ----Acute gastritis; status post EGD Continue PPI, advance diet as tolerated --Acute cystitis /urinary tract infection gram-negative rods Continue Rocephin and follow sensitivities --HypoNatremia- resolved --Anemia of chronic disease --stable diastolic congestive heart failur --Bilateral pleural effusions;s/p Rt. thoracentesis Removal of 600 mL pleural fluid, analysis pending Pulmonary following, follow fluid analysis, cultures --Diabetes mellitus with hyperglycemia --Obesity; BMI 39.6 --[id number] malnutrition/hypoalbuminemia --DVT prophylaxis --FULL CODE STATUS Plan of care reviewed with the patient, daughter at the bedside and his nurse History Interval history: Conversation through the help of a bilingual family member[son] Patient seen and examined medical records reviewed No new events reported by the nursing staff Patient underwent thoracic synthesis and removal of 600 and pleural fluid Analysis pending Vital signs noted Hospitalist Physical - Constitutional Vitals: Temp Pulse Resp BP Pulse Ox 98.0 F 94 H 20 131/72 95 08/04/18 14:00 08/04/18 14:00 08/04/18 14:00 08/04/18 15:27 08/04/18 14:00 General appearance: Present: no acute distress, well-nourished, obese (morbidly obese) - EENT Eyes: Present: PERRL, EOM intact - Neck Neck: Present: supple, normal ROM - Respiratory Respiratory effort: normal Respiratory: bilateral: diminished, negative: rales, rhonchi, wheezing - Cardiovascular Rhythm: regular Heart Sounds: Present: S1 & S2 - Extremities Extremities: no ischemia, No edema - Abdominal General gastrointestinal: soft, non-tender, non-distended, normal bowel sounds - Integumentary Integumentary: Present: clear, warm - Psychiatric Psychiatric: appropriate mood/affect, cooperative - Neurologic Neurologic: CNII-XII intact, moves all extremities Results - Labs CBC & Chem 7: 08/04/18 06:45 08/04/18 06:45 Labs: Laboratory Last Values WBC 10.9 K/mm3 (4.5-11.0) 08/04/18 06:45 RBC 3.47 M/mm3 (3.65-5.03) L 08/04/18 06:45 Hgb 8.8 gm/dl (10.1-14.3) L 08/04/18 06:45 Hct 26.6 % (30.3-42.9) L 08/04/18 06:45 MCV 77 fl (79-97) L 08/04/18 06:45 MCH 25 pg (28-32) L 08/04/18 06:45 MCHC 33 % (30-34) 08/04/18 06:45 RDW 19.7 % (13.2-15.2) H 08/04/18 06:45 Plt Count 352 K/mm3 (140-440) 08/04/18 06:45 Lymph % (Auto) 6.7 % (13.4-35.0) L 08/04/18 06:45 [place] % (Auto) 6.7 % (0.0-7.3) 08/04/18 06:45 Eos % (Auto) 0.3 % (0.0-4.3) 08/04/18 06:45 Baso % (Auto) 0.3 % (0.0-1.8) 08/04/18 06:45 Lymph # 0.7 K/mm3 (1.2-5.4) L 08/04/18 06:45 [place] # 0.7 K/mm3 (0.0-0.8) 08/04/18 06:45 Eos # 0.0 K/mm3 (0.0-0.4) 08/04/18 06:45 Baso # 0.0 K/mm3 (0.0-0.1) 08/04/18 06:45 Seg Neutrophils % 86.0 % (40.0-70.0) H 08/04/18 06:45 Seg Neutrophils # 9.4 K/mm3 (1.8-7.7) H 08/04/18 06:45 PT 15.4 Sec. (12.2-14.9) H 08/02/18 20:51 INR 1.15 (0.87-1.13) H 08/02/18 20:51 Sodium 139 mmol/L (137-145) 08/04/18 06:45 Potassium 4.0 mmol/L (3.6-5.0) 08/04/18 06:45 Chloride 104.6 mmol/L (98-107) 08/04/18 06:45 Carbon Dioxide 21 mmol/L (22-30) L 08/04/18 06:45 17 mmol/L 08/04/18 06:45 BUN 29 mg/dL (7-17) H 08/04/18 06:45 2.0 mg/dL (0.7-1.2) H 08/04/18 06:45 Estimated GFR 24 ml/min 08/04/18 06:45 15 % 08/04/18 06:45 Glucose 176 mg/dL (65-100) H 08/04/18 06:45 POC Glucose 196 (70-105) H 08/04/18 17:11 306 Mosm/kg 07/31/18 12:31 Calcium 8.6 mg/dL (8.4-10.2) 08/04/18 06:45 Phosphorus 3.80 mg/dL (2.5-4.5) 08/03/18 05:04 Magnesium 1.80 mg/dL (1.7-2.3) 08/04/18 06:45 0.20 mg/dL (0.1-1.2) 08/02/18 20:51 < 0.2 mg/dL (0-0.2) 07/31/18 15:07 0.1 mg/dL 07/31/18 15:07 AST 37 units/L (5-40) 08/02/18 20:51 ALT 65 units/L (7-56) H 08/02/18 20:51 105 units/L (35-129) 08/02/18 20:51 215 units/L (91-180) H 08/02/18 20:51 7.1 g/dL (6.3-8.2) 08/02/18 20:51 3.4 g/dL (3.9-5) L 08/02/18 20:51 0.9 % 08/02/18 20:51 34 units/L (13-60) 07/31/18 07:30 Yellow (Yellow) 07/31/18 07:58 Cloudy (Clear) 07/31/18 07:58 5.0 (5.0-7.0) 07/31/18 07:58 Ur Specific [place] 1.011 (1.003-1.030) 07/31/18 07:58 100 mg/dl mg/dL (Negative) 07/31/18 07:58 Neg mg/dL (Negative) 07/31/18 07:58 Neg mg/dL (Negative) 07/31/18 07:58 Neg (Negative) 07/31/18 07:58 Neg (Negative) 07/31/18 07:58 Neg (Negative) 07/31/18 07:58 < 2.0 mg/dL (<2.0) 07/31/18 07:58 Ur Leukocyte Esterase Lg (Negative) 07/31/18 07:58 > 182.0 /HPF (0.0-6.0) H 07/31/18 07:58 12.0 /HPF (0.0-6.0) 07/31/18 07:58 U Epithel Cells (Auto) 1.0 /HPF (0-13.0) 07/31/18 07:58 2+ /HPF (Negative) 07/31/18 07:58 3+ /HPF 07/31/18 07:58 Few /HPF 07/31/18 07:58 3+ /HPF 07/31/18 07:58 268 Mosm/kg 07/31/18 Unknown 108.9 mg/dL (0.1-20.0) H 07/31/18 Unknown Protein/Creatinin Ratio 1.54 07/31/18 Unknown 43 mmol/L 08/01/18 14:48 168 mg/dL (5-11.8) H 07/31/18 Unknown Hepatitis A IgM Ab Non-reactive (NonReactive) 08/01/18 09:36 Hep Bs Antigen Non-reactive (Negative) 08/01/18 09:36 Hep B Core IgM Ab Non-reactive (NonReactive) 08/01/18 09:36 Non-reactive (NonReactive) 08/01/18 09:36 Active Medications - Current Medications Current Medications: Generic Name Dose Route Start Last Admin Trade Name Freq PRN Reason Stop Dose Admin Acetaminophen 650 mg 07/31/18 11:00 08/02/18 19:55 Tylenol PO 650 mg Q4H PRN Administration Pain MILD(1-3)/Fever >100.5/CASTELLANOS Albuterol 2.5 mg 07/31/18 11:00 Proventil IH Q3HRT PRN Shortness Of Breath Albuterol/Ipratropium 1 ampul 08/03/18 20:00 08/04/18 13:48 Duoneb *Not For Prn Use* IH 1 ampul TIDRT TERA Administration Amlodipine Besylate 10 mg 08/02/18 12:00 08/04/18 10:26 Norvasc PO 10 mg QDAY TERA Administration Dextrose 50 ml 07/31/18 11:05 D50w (25gm) Syringe IV PRN PRN Hypoglycemia Dicyclomine HCl 10 mg 07/31/18 19:02 Bentyl PO QID PRN Nausea And Vomiting Hydralazine HCl 10 mg 08/01/18 09:19 08/04/18 03:53 Apresoline IV 10 mg Q4H PRN Administration SBP>160 OR DBP>105 Hydralazine HCl 25 mg 08/03/18 14:00 08/04/18 15:27 Apresoline PO 25 mg Q8HR TERA Administration Ceftriaxone Sodium 1 gm in 50 mls @ 100 mls/hr 07/31/18 12:00 08/04/18 10:26 Rocephin/Ns 1 Gm/50 Ml IV 100 mls/hr Q24HR TERA Administration Protocol Sodium Chloride 1,000 mls @ 50 mls/hr 08/02/18 13:00 08/04/18 00:35 Nacl 0.9% 1000 Ml IV 50 mls/hr DIRECT TERA Administration Insulin Human Lispro 0 unit 07/31/18 12:00 08/04/18 17:39 Humalog SUB-Q 1 unit Q6HR TERA Administration Protocol Metoclopramide HCl 10 mg 08/02/18 14:10 08/02/18 14:52 Reglan IV 10 mg Q6H PRN Administration Nausea And Vomiting Morphine Sulfate 2 mg 07/31/18 11:01 08/02/18 03:40 Morphine IV 2 mg Q4H PRN Administration Pain, Moderate (4-6) Ondansetron HCl 4 mg 07/31/18 11:00 08/02/18 10:36 Zofran IV 4 mg Q4H PRN Administration Nausea And Vomiting Pantoprazole Sodium 40 mg 08/01/18 20:00 08/04/18 10:26 Protonix PO 40 mg QDAY TERA Administration Promethazine HCl 12.5 mg 08/01/18 12:30 08/01/18 12:46 Phenergan [place] 12.5 mg Q6H PRN Administration Nausea And Vomiting Sodium Chloride 10 ml 07/31/18 22:00 08/04/18 10:26 Sodium Chloride Flush Syringe 10 Ml IV 10 ml BID TERA Administration Sodium Chloride 10 ml 07/31/18 11:00 Sodium Chloride Flush Syringe 10 Ml IV PRN PRN LINE FLUSH
[2018-08-05] MEDS: HumaLOG SUB-Q SCH ×5 (00:38→18:12)
[2018-08-05] MEDS: APRESOLINE PO SCH ×3 (06:40→22:22)
[2018-08-05 06:42] LABS: Calcium 8.2 mg/dL (8.4-10.2)
[2018-08-05] MEDS: DUONEB *Not for PRN Use IH SCH ×3 (08:35→22:11)
[2018-08-05] MEDS: SODIUM CHLORIDE FLUSH SYRINGE 10 ML IV SCH ×2 (10:22→22:22)
[2018-08-05] MEDS: PROTONIX PO SCH (10:22)
[2018-08-05] MEDS: ROCEPHIN/NS 1 GM/50 ML 1 GM/50 ML BAG IV SCH (10:22)
[2018-08-05] MEDS: NORVASC PO SCH (10:22)
--- NOTE | 2018-08-05 10:37 | Progress Note ---
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 Cr slightly up. Monitor. -Labs from [facility] showed 07/24/18-serum creatinine was 2.51, 07/25/18-serum creatinine was 2.23, 07/26/18 was 1.8. -Her serum creatinine prior to CTA contrast at [facility] was 1.6 on 07/22/18. -Renal Ultrasound done showed- known left renal cyst. Monitor outpatient with renal ultrasound. -Patient has compensated Diastolic Heart Failure -Echo at [facility] on 07/22/18 showed LVEF was 62% -Was on Lasix 20 mg po daily at home -Holding home Lasix for now -On IV hydration with D5NS@ 50 ml/hr -CXR- improved basilar aeration -Urine lytes reviewed, has proteinuria likely from DM -Monitor I/O's -Obtain daily weights -Renally dose medications -Will continue to monitor renal function closely Nausea/Vomiting: -Abdominal CT- negative for acute process -On po Protonix -Has elevated liver enzymes -GI on board UTI: -As per primary Hypertension: -No NITIN or ARB for now until renal function stabilizes Diabetes Mellitus: -On insulin a per primary Compensated Diastolic Heart Failure: -Echo at [facility] on 07/22/18 showed LVEF was 62% Subjective Date of service: 08/05/18 Principal diagnosis: ARF on CKD Interval history: Making urine. Objective - Exam Narrative Exam: General appearance: well-developed, fatigue EENT: ATNC, PERRL Neck: no JVD, supple Respiratory: Present: Decreased Breath Sounds Cardiology: tachycardia, S1S2 Gastrointestinal: normoactive bowel sounds Integumentary: warm and dry Neurologic: other (Awake and alert) Musculoskeletal: other (No edema) - Vital Signs Vital signs: Vital Signs - 12hr 08/05/18 08/05/18 08/05/18 02:00 02:04 06:40 Temperature 98.6 F Pulse Rate 108 H 93 H 94 H Respiratory 20 Rate Blood Pressure 139/83 140/82 O2 Sat by Pulse 88 93 Oximetry 08/05/18 08/05/18 07:43 10:22 Temperature 97.7 F Pulse Rate 90 90 Respiratory 20 Rate Blood Pressure 137/69 137/69 O2 Sat by Pulse 98 Oximetry - Lab 08/04/18 06:45 08/05/18 05:10 Most recent lab results Calcium 8.2 mg/dL (8.4-10.2) L 08/05/18 05:10 Phosphorus 3.80 mg/dL (2.5-4.5) 08/03/18 05:04 Magnesium 1.70 mg/dL (1.7-2.3) 08/05/18 05:10 108.9 mg/dL (0.1-20.0) H 07/31/18 Unknown 43 mmol/L 08/01/18 14:48 168 mg/dL (5-11.8) H 07/31/18 Unknown Medications & Allergies - Medications Allergies/Adverse Reactions: Allergies No Known Allergies Allergy (Verified 07/31/18 07:06) Home Medications: Home Medications Medication Instructions Recorded Confirmed Last Taken Type Furosemide [Lasix] 20 mg PO QDAY 07/31/18 07/31/18 Unknown History HYDROcodone/APAP 5-325 [[place] 1 each PO Q4HR PRN 07/31/18 07/31/18 Unknown History 5/325] Pantoprazole Sodium [Protonix] 40 mg PO DAILY 07/31/18 07/31/18 Unknown History Tamsulosin 0.4 mg PO HS 07/31/18 07/31/18 07/30/18 21:00 History amLODIPine [Norvasc] 10 mg PO DAILY 07/31/18 07/31/18 Unknown History hydrALAZINE [Apresoline TAB] 100 mg PO TID 07/31/18 07/31/18 Unknown History Active Medications: Generic Name Dose Route Start Last Admin Trade Name Freq PRN Reason Stop Dose Admin Acetaminophen 650 mg 07/31/18 11:00 08/02/18 19:55 Tylenol PO 650 mg Q4H PRN Administration Pain MILD(1-3)/Fever >100.5/CASTELLANOS Albuterol 2.5 mg 07/31/18 11:00 Proventil IH Q3HRT PRN Shortness Of Breath Albuterol/Ipratropium 1 ampul 08/03/18 20:00 08/05/18 08:35 Duoneb *Not For Prn Use* IH 1 ampul TIDRT TREA Administration Amlodipine Besylate 10 mg 08/02/18 12:00 08/05/18 10:22 Norvasc PO 10 mg QDAY TERA Administration Dextrose 50 ml 07/31/18 11:05 D50w (25gm) Syringe IV PRN PRN Hypoglycemia Dicyclomine HCl 10 mg 07/31/18 19:02 Bentyl PO QID PRN Nausea And Vomiting Hydralazine HCl 10 mg 08/01/18 09:19 08/04/18 03:53 Apresoline IV 10 mg Q4H PRN Administration SBP>160 OR DBP>105 Hydralazine HCl 25 mg 08/03/18 14:00 08/05/18 06:40 Apresoline PO 25 mg Q8HR TERA Administration Ceftriaxone Sodium 1 gm in 50 mls @ 100 mls/hr 07/31/18 12:00 08/05/18 10:22 Rocephin/Ns 1 Gm/50 Ml IV 100 mls/hr Q24HR TERA Administration Protocol Sodium Chloride 1,000 mls @ 50 mls/hr 08/02/18 13:00 08/04/18 22:20 Nacl 0.9% 1000 Ml IV 50 mls/hr DIRECT TERA Administration Insulin Human Lispro 0 unit 07/31/18 12:00 08/05/18 06:40 Humalog SUB-Q Not Given Q6HR [facility] Protocol Metoclopramide HCl 10 mg 08/02/18 14:10 08/02/18 14:52 Reglan IV 10 mg Q6H PRN Administration Nausea And Vomiting Morphine Sulfate 2 mg 07/31/18 11:01 08/02/18 03:40 Morphine IV 2 mg Q4H PRN Administration Pain, Moderate (4-6) Ondansetron HCl 4 mg 07/31/18 11:00 08/02/18 10:36 Zofran IV 4 mg Q4H PRN Administration Nausea And Vomiting Pantoprazole Sodium 40 mg 08/01/18 20:00 08/05/18 10:22 Protonix PO 40 mg QDAY TERA Administration Promethazine HCl 12.5 mg 08/01/18 12:30 08/01/18 12:46 Phenergan [place] 12.5 mg Q6H PRN Administration Nausea And Vomiting Sodium Chloride 10 ml 07/31/18 22:00 08/05/18 10:22 Sodium Chloride Flush Syringe 10 Ml IV 10 ml BID TERA Administration Sodium Chloride 10 ml 07/31/18 11:00 Sodium Chloride Flush Syringe 10 Ml IV PRN PRN LINE FLUSH
--- NOTE | 2018-08-05 11:31 | Progress Note ---
Assessment and Plan Patient awake. On 2 litres O2. O2 saturation 94% . No acute respiratory distress at rest. Complaining shortness of breath on exertion..Patient has right thoracentesis .Procedure is uneventful. Patients Post thoracentesis chest xray reported complete evacuation of right pleural effusion. No pneumothorax. Pleural fluid results still pending . Obtaining ABGs on room air. Repeating chest xray PA and Lateral. - Patient Problems (1) Pleural effusion, right Current Visit: Yes Status: Acute Plan to address problem: Patient undergone right thoracentesis. Pleural fluid results pending. Post thoracentesis chest xray reported complete evacuation of right pleural effusion. No pneumothorax. (2) Hyponatremia Current Visit: Yes Status: Acute Plan to address problem: Improved . Todays NA+ 138. (3) Intractable nausea and vomiting Current Visit: Yes Status: Acute Qualifiers: Vomiting type: unspecified Qualified Code(s): R11.2 - Nausea with vomiting, unspecified Plan to address problem: Management as per primary care and gastroenterology. (4) Abdominal pain Current Visit: Yes Status: Acute Qualifiers: Abdominal location: epigastric Qualified Code(s): R10.13 - Epigastric pain Plan to address problem: Management as per primary care, surgery and gastroenterology. (5) Acute renal insufficiency Current Visit: Yes Status: Acute Plan to address problem: Management as per primary care and nephrology. (6) Anemia Current Visit: Yes Status: Acute Qualifiers: Anemia type: unspecified type Qualified Code(s): D64.9 - Anemia, unspecified Plan to address problem: Management as per primary care. (7) Dehydration Current Visit: Yes Status: Acute Plan to address problem: Improving. Management as per primary care. (8) Gastroenteritis Current Visit: Yes Status: Acute Plan to address problem: Management as per primary care and gastroenterology. (9) Morbid obesity with BMI of 40.0-44.9, adult Current Visit: Yes Status: Acute Plan to address problem: Weight reduction diet when abdominal pain got better. Recommend sleep study as out patient. Subjective Date of service: 08/05/18 Principal diagnosis: ARF on CKD Interval history: Patient awake. On 2 litres O2. O2 saturation 94% . No acute respiratory distress at rest. Complaining shortness of breath on exertion..Patient has right thoracentesis .Procedure is uneventful. Patients Post thoracentesis chest xray reported complete evacuation of right pleural effusion. No pneumothorax. Pleural fluid results still pending . Obtaining ABGs on room air. Repeating chest xray PA and Lateral. Objective Vital Signs - 12hr 08/05/18 08/05/18 08/05/18 02:00 02:04 06:40 Temperature 98.6 F Pulse Rate 108 H 93 H 94 H Respiratory 20 Rate Blood Pressure 139/83 140/82 O2 Sat by Pulse 88 93 Oximetry 08/05/18 08/05/18 07:43 10:22 Temperature 97.7 F Pulse Rate 90 90 Respiratory 20 Rate Blood Pressure 137/69 137/69 O2 Sat by Pulse 98 Oximetry Constitutional: no acute distress, alert Eyes: non-icteric Neck: supple, no lymphadenopathy Effort: mildly labored Ascultation: Bilateral: diminished breath sounds Cardiovascular: regular rate and rhythm Gastrointestinal: normoactive bowel sounds, soft, non-tender Integumentary: normal Extremities: no cyanosis, no edema Neurologic: normal mental status, non-focal exam, pupils equal and round, CN II- XII normal Psychiatric: mood appropriate CBC and BMP: 08/04/18 06:45 08/05/18 05:10 ABG, PT/INR, D-dimer: PT/INR, D-dimer PT 15.4 Sec. (12.2-14.9) H 08/02/18 20:51 INR 1.15 (0.87-1.13) H 08/02/18 20:51 Abnormal lab findings: Abnormal Labs 07/31/18 07/31/18 07/31/18 07:30 07:30 07:58 RBC 3.35 L Hgb 8.3 L Hct 25.4 L MCV 76 L MCH 25 L RDW 18.6 H Lymph % (Auto) 5.0 L Lymph # 0.5 L Seg Neutrophils % 88.9 H Seg Neutrophils # 8.4 H PT INR Sodium 126 L Chloride 90.2 L Carbon Dioxide 20 L BUN 37 H Creatinine 2.7 H Glucose 198 H POC Glucose Calcium AST 106 H ALT 76 H Lactate Dehydrogenase Albumin 3.2 L Urine WBC (Auto) > 182.0 H Urine Creatinine Urine Total Protein 07/31/18 07/31/18 07/31/18 15:07 15:07 16:51 RBC Hgb Hct MCV MCH RDW Lymph % (Auto) Lymph # Seg Neutrophils % Seg Neutrophils # PT INR Sodium 129 L Chloride 93.4 L Carbon Dioxide 21 L BUN 37 H Creatinine 2.4 H Glucose 198 H POC Glucose 196 H Calcium AST 98 H ALT 77 H Lactate Dehydrogenase Albumin 3.2 L Urine WBC (Auto) Urine Creatinine Urine Total Protein 07/31/18 07/31/18 08/01/18 21:01 Unknown 05:07 RBC 3.11 L Hgb 7.8 L Hct 23.7 L MCV 76 L MCH 25 L RDW 18.8 H Lymph % (Auto) 6.3 L Lymph # 0.6 L Seg Neutrophils % 86.5 H Seg Neutrophils # 8.0 H PT INR Sodium Chloride Carbon Dioxide BUN Creatinine Glucose POC Glucose 213 H Calcium AST ALT Lactate Dehydrogenase Albumin Urine WBC (Auto) Urine Creatinine 108.9 H Urine Total Protein 168 H 08/01/18 08/01/18 08/01/18 05:07 07:50 12:00 RBC Hgb Hct MCV MCH RDW Lymph % (Auto) Lymph # Seg Neutrophils % Seg Neutrophils # PT INR Sodium 134 L Chloride Carbon Dioxide 19 L BUN 37 H Creatinine 2.6 H Glucose 149 H POC Glucose 150 H 148 H Calcium 8.3 L AST 87 H ALT 78 H Lactate Dehydrogenase Albumin 3.0 L Urine WBC (Auto) Urine Creatinine Urine Total Protein 08/01/18 08/01/18 08/01/18 13:01 16:57 23:28 RBC Hgb Hct MCV MCH RDW Lymph % (Auto) Lymph # Seg Neutrophils % Seg Neutrophils # PT INR Sodium Chloride Carbon Dioxide BUN Creatinine Glucose POC Glucose 174 H 254 H 221 H Calcium AST ALT Lactate Dehydrogenase Albumin Urine WBC (Auto) Urine Creatinine Urine Total Protein 08/02/18 08/02/18 08/02/18 06:10 06:10 11:30 RBC 3.51 L Hgb 8.7 L Hct 26.8 L MCV 76 L MCH 25 L RDW 19.2 H Lymph % (Auto) 5.9 L Lymph # 0.5 L Seg Neutrophils % 88.3 H Seg Neutrophils # PT INR Sodium Chloride Carbon Dioxide 19 L BUN 31 H Creatinine 2.0 H Glucose 234 H POC Glucose 235 H Calcium AST ALT Lactate Dehydrogenase Albumin Urine WBC (Auto) Urine Creatinine Urine Total Protein 08/02/18 08/02/18 08/02/18 13:08 13:44 17:35 RBC Hgb Hct MCV MCH RDW Lymph % (Auto) Lymph # Seg Neutrophils % Seg Neutrophils # PT INR Sodium Chloride Carbon Dioxide BUN Creatinine Glucose POC Glucose 279 H 265 H 301 H Calcium AST ALT Lactate Dehydrogenase Albumin Urine WBC (Auto) Urine Creatinine Urine Total Protein 08/02/18 08/02/18 08/03/18 20:51 20:51 00:00 RBC Hgb Hct MCV MCH RDW Lymph % (Auto) Lymph # Seg Neutrophils % Seg Neutrophils # PT 15.4 H INR 1.15 H Sodium 136 L Chloride Carbon Dioxide 21 L BUN 31 H Creatinine 2.0 H Glucose 355 H POC Glucose 313 H Calcium AST ALT 65 H Lactate Dehydrogenase 215 H Albumin 3.4 L Urine WBC (Auto) Urine Creatinine Urine Total Protein 08/03/18 08/03/18 08/03/18 05:04 05:04 06:05 RBC 3.50 L Hgb 8.7 L Hct 27.1 L MCV 78 L MCH 25 L RDW 19.6 H Lymph % (Auto) Lymph # Seg Neutrophils % Seg Neutrophils # PT INR Sodium Chloride 107.7 H Carbon Dioxide 21 L BUN 29 H Creatinine 1.8 H Glucose 222 H POC Glucose 186 H Calcium AST ALT Lactate Dehydrogenase Albumin Urine WBC (Auto) Urine Creatinine Urine Total Protein 08/03/18 08/03/18 08/04/18 12:00 17:33 00:12 RBC Hgb Hct MCV MCH RDW Lymph % (Auto) Lymph # Seg Neutrophils % Seg Neutrophils # PT INR Sodium Chloride Carbon Dioxide BUN Creatinine Glucose POC Glucose 216 H 287 H 232 H Calcium AST ALT Lactate Dehydrogenase Albumin Urine WBC (Auto) Urine Creatinine Urine Total Protein 08/04/18 08/04/18 08/04/18 06:05 06:45 06:45 RBC 3.47 L Hgb 8.8 L Hct 26.6 L MCV 77 L MCH 25 L RDW 19.7 H Lymph % (Auto) 6.7 L Lymph # 0.7 L Seg Neutrophils % 86.0 H Seg Neutrophils # 9.4 H PT INR Sodium Chloride Carbon Dioxide 21 L BUN 29 H Creatinine 2.0 H Glucose 176 H POC Glucose 174 H Calcium AST ALT Lactate Dehydrogenase Albumin Urine WBC (Auto) Urine Creatinine Urine Total Protein 08/04/18 08/04/18 08/04/18 12:14 17:11 23:46 RBC Hgb Hct MCV MCH RDW Lymph % (Auto) Lymph # Seg Neutrophils % Seg Neutrophils # PT INR Sodium Chloride Carbon Dioxide BUN Creatinine Glucose POC Glucose 267 H 196 H 215 H Calcium AST ALT Lactate Dehydrogenase Albumin Urine WBC (Auto) Urine Creatinine Urine Total Protein 08/05/18 08/05/18 05:10 05:56 RBC Hgb Hct MCV MCH RDW Lymph % (Auto) Lymph # Seg Neutrophils % Seg Neutrophils # PT INR Sodium Chloride Carbon Dioxide 21 L BUN 29 H Creatinine 2.2 H Glucose 115 H POC Glucose 114 H Calcium 8.2 L AST ALT Lactate Dehydrogenase Albumin Urine WBC (Auto) Urine Creatinine Urine Total Protein
[2018-08-05] MEDS: NACL 0.9% 1000 ML 1,000 ML IV SCH (12:11)
--- NOTE | 2018-08-05 19:02 | Progress Note ---
Assessment and Plan Assessment and plan: --Bilateral pleural effusions;s/p Rt. thoracentesis Removal of 600 mL pleural fluid, analysis pending Pulmonary following, follow fluid analysis, cultures --Acute cystitis /urinary tract infection gram-negative rods Continue Rocephin and follow sensitivities --Hypertensive urgency; continue current antihypertensives Add hydralazine 25 3 times a day, when necessary hydralazine IV Closely monitor --Acute kidney injury; secondary to vasomotor nephropathy on chronic kidney disease stage II and underlying diabetic and hypertensive nephropathy, gentle hydration, nephrology following --Recent diagnosis of contrast-induced nephropathy --Intractable Nausea and vomiting ----Acute gastritis; status post EGD Continue PPI, advance diet as tolerated --HypoNatremia- resolved --Anemia of chronic disease --stable diastolic congestive heart failur --Diabetes mellitus with hyperglycemia --Obesity; BMI 39.6 --[id number] malnutrition/hypoalbuminemia --DVT prophylaxis --FULL CODE STATUS Plan of care reviewed with the patient, daughter at the bedside and his nurse History Interval history: Patient seen and examined medical records reviewed Patient feels better no new complaints On IV antibiotics for UTI Escherichia coli Underwent thoracentesis, awaiting fluid analysis Alert awake oriented 3 Vital signs noted Hospitalist Physical - Constitutional Vitals: Temp Pulse Resp BP Pulse Ox 98.3 F 90 18 136/74 94 08/05/18 13:22 08/05/18 16:35 08/05/18 16:35 08/05/18 13:22 08/05/18 13:22 General appearance: Present: no acute distress, well-nourished, obese (morbidly obese) - EENT Eyes: Present: PERRL, EOM intact - Neck Neck: Present: supple, normal ROM - Respiratory Respiratory effort: normal Respiratory: bilateral: diminished, negative: rales, rhonchi, wheezing - Cardiovascular Rhythm: regular Heart Sounds: Present: S1 & S2 - Extremities Extremities: no ischemia, No edema - Abdominal General gastrointestinal: soft, non-tender, non-distended, normal bowel sounds - Integumentary Integumentary: Present: clear, warm - Psychiatric Psychiatric: appropriate mood/affect, cooperative - Neurologic Neurologic: moves all extremities Results - Labs CBC & Chem 7: 08/04/18 06:45 08/05/18 05:10 Labs: Laboratory Last Values WBC 10.9 K/mm3 (4.5-11.0) 08/04/18 06:45 RBC 3.47 M/mm3 (3.65-5.03) L 08/04/18 06:45 Hgb 8.8 gm/dl (10.1-14.3) L 08/04/18 06:45 Hct 26.6 % (30.3-42.9) L 08/04/18 06:45 MCV 77 fl (79-97) L 08/04/18 06:45 MCH 25 pg (28-32) L 08/04/18 06:45 MCHC 33 % (30-34) 08/04/18 06:45 RDW 19.7 % (13.2-15.2) H 08/04/18 06:45 Plt Count 352 K/mm3 (140-440) 08/04/18 06:45 Lymph % (Auto) 6.7 % (13.4-35.0) L 08/04/18 06:45 [place] % (Auto) 6.7 % (0.0-7.3) 08/04/18 06:45 Eos % (Auto) 0.3 % (0.0-4.3) 08/04/18 06:45 Baso % (Auto) 0.3 % (0.0-1.8) 08/04/18 06:45 Lymph # 0.7 K/mm3 (1.2-5.4) L 08/04/18 06:45 [place] # 0.7 K/mm3 (0.0-0.8) 08/04/18 06:45 Eos # 0.0 K/mm3 (0.0-0.4) 08/04/18 06:45 Baso # 0.0 K/mm3 (0.0-0.1) 08/04/18 06:45 Seg Neutrophils % 86.0 % (40.0-70.0) H 08/04/18 06:45 Seg Neutrophils # 9.4 K/mm3 (1.8-7.7) H 08/04/18 06:45 PT 15.4 Sec. (12.2-14.9) H 08/02/18 20:51 INR 1.15 (0.87-1.13) H 08/02/18 20:51 Sodium 138 mmol/L (137-145) 08/05/18 05:10 Potassium 4.1 mmol/L (3.6-5.0) 08/05/18 05:10 Chloride 105.2 mmol/L (98-107) 08/05/18 05:10 Carbon Dioxide 21 mmol/L (22-30) L 08/05/18 05:10 16 mmol/L 08/05/18 05:10 BUN 29 mg/dL (7-17) H 08/05/18 05:10 2.2 mg/dL (0.7-1.2) H 08/05/18 05:10 Estimated GFR 22 ml/min 08/05/18 05:10 13 % 08/05/18 05:10 Glucose 115 mg/dL (65-100) H 08/05/18 05:10 POC Glucose 205 (70-105) H 08/05/18 17:25 306 Mosm/kg 07/31/18 12:31 Calcium 8.2 mg/dL (8.4-10.2) L 08/05/18 05:10 Phosphorus 3.80 mg/dL (2.5-4.5) 08/03/18 05:04 Magnesium 1.70 mg/dL (1.7-2.3) 08/05/18 05:10 0.20 mg/dL (0.1-1.2) 08/02/18 20:51 < 0.2 mg/dL (0-0.2) 07/31/18 15:07 0.1 mg/dL 07/31/18 15:07 AST 37 units/L (5-40) 08/02/18 20:51 ALT 65 units/L (7-56) H 08/02/18 20:51 105 units/L (35-129) 08/02/18 20:51 215 units/L (91-180) H 08/02/18 20:51 7.1 g/dL (6.3-8.2) 08/02/18 20:51 3.4 g/dL (3.9-5) L 08/02/18 20:51 0.9 % 08/02/18 20:51 34 units/L (13-60) 07/31/18 07:30 Yellow (Yellow) 07/31/18 07:58 Cloudy (Clear) 07/31/18 07:58 5.0 (5.0-7.0) 07/31/18 07:58 Ur Specific [place] 1.011 (1.003-1.030) 07/31/18 07:58 100 mg/dl mg/dL (Negative) 07/31/18 07:58 Neg mg/dL (Negative) 07/31/18 07:58 Neg mg/dL (Negative) 07/31/18 07:58 Neg (Negative) 07/31/18 07:58 Neg (Negative) 07/31/18 07:58 Neg (Negative) 07/31/18 07:58 < 2.0 mg/dL (<2.0) 07/31/18 07:58 Ur Leukocyte Esterase Lg (Negative) 07/31/18 07:58 > 182.0 /HPF (0.0-6.0) H 07/31/18 07:58 12.0 /HPF (0.0-6.0) 07/31/18 07:58 U Epithel Cells (Auto) 1.0 /HPF (0-13.0) 07/31/18 07:58 2+ /HPF (Negative) 07/31/18 07:58 3+ /HPF 07/31/18 07:58 Few /HPF 07/31/18 07:58 3+ /HPF 07/31/18 07:58 268 Mosm/kg 07/31/18 Unknown 108.9 mg/dL (0.1-20.0) H 07/31/18 Unknown Protein/Creatinin Ratio 1.54 07/31/18 Unknown 43 mmol/L 08/01/18 14:48 168 mg/dL (5-11.8) H 07/31/18 Unknown Hepatitis A IgM Ab Non-reactive (NonReactive) 08/01/18 09:36 Hep Bs Antigen Non-reactive (Negative) 08/01/18 09:36 Hep B Core IgM Ab Non-reactive (NonReactive) 08/01/18 09:36 Non-reactive (NonReactive) 08/01/18 09:36 Active Medications - Current Medications Current Medications: Generic Name Dose Route Start Last Admin Trade Name Freq PRN Reason Stop Dose Admin Acetaminophen 650 mg 07/31/18 11:00 08/02/18 19:55 Tylenol PO 650 mg Q4H PRN Administration Pain MILD(1-3)/Fever >100.5/CASTELLANOS Albuterol 2.5 mg 07/31/18 11:00 Proventil IH Q3HRT PRN Shortness Of Breath Albuterol/Ipratropium 1 ampul 08/03/18 20:00 08/05/18 16:20 Duoneb *Not For Prn Use* IH 1 ampul TIDRT TERA Administration Amlodipine Besylate 10 mg 08/02/18 12:00 08/05/18 10:22 Norvasc PO 10 mg QDAY TERA Administration Dextrose 50 ml 07/31/18 11:05 D50w (25gm) Syringe IV PRN PRN Hypoglycemia Dicyclomine HCl 10 mg 07/31/18 19:02 Bentyl PO QID PRN Nausea And Vomiting Hydralazine HCl 10 mg 08/01/18 09:19 08/04/18 03:53 Apresoline IV 10 mg Q4H PRN Administration SBP>160 OR DBP>105 Hydralazine HCl 25 mg 08/03/18 14:00 08/05/18 13:37 Apresoline PO 25 mg Q8HR TERA Administration Ceftriaxone Sodium 1 gm in 50 mls @ 100 mls/hr 07/31/18 12:00 08/05/18 10:22 Rocephin/Ns 1 Gm/50 Ml IV 100 mls/hr Q24HR TERA Administration Protocol Sodium Chloride 1,000 mls @ 50 mls/hr 08/02/18 13:00 08/05/18 12:11 Nacl 0.9% 1000 Ml IV 50 mls/hr DIRECT TERA Administration Insulin Human Lispro 0 unit 07/31/18 12:00 08/05/18 18:12 Humalog SUB-Q 2 unit Q6HR TERA Administration Protocol Metoclopramide HCl 10 mg 08/02/18 14:10 08/02/18 14:52 Reglan IV 10 mg Q6H PRN Administration Nausea And Vomiting Morphine Sulfate 2 mg 07/31/18 11:01 08/02/18 03:40 Morphine IV 2 mg Q4H PRN Administration Pain, Moderate (4-6) Ondansetron HCl 4 mg 07/31/18 11:00 08/02/18 10:36 Zofran IV 4 mg Q4H PRN Administration Nausea And Vomiting Pantoprazole Sodium 40 mg 08/01/18 20:00 08/05/18 10:22 Protonix PO 40 mg QDAY TERA Administration Promethazine HCl 12.5 mg 08/01/18 12:30 08/01/18 12:46 Phenergan [place] 12.5 mg Q6H PRN Administration Nausea And Vomiting Sodium Chloride 10 ml 07/31/18 22:00 08/05/18 10:22 Sodium Chloride Flush Syringe 10 Ml IV 10 ml BID TERA Administration Sodium Chloride 10 ml 07/31/18 11:00 Sodium Chloride Flush Syringe 10 Ml IV PRN PRN LINE FLUSH
[2018-08-06] MEDS: HumaLOG SUB-Q SCH ×5 (00:45→18:40)
[2018-08-06] MEDS: APRESOLINE PO SCH ×3 (06:28→22:57)
[2018-08-06 06:45] LABS: Calcium 8.3 mg/dL (8.4-10.2)
--- NOTE | 2018-08-06 08:31 | XRay Report ---
ROUTINE CHEST, TWO VIEWS: HISTORY: Followup thoracentesis. Small bilateral pleural effusions are identified on the lateral image only. The lungs are clear otherwise. Mild hyperinflation is noted. Mild cardiomegaly and pulmonary venous congestion. No pneumothorax. IMPRESSION: Mild COPD and CHF as described.
--- NOTE | 2018-08-06 08:37 | Progress Note ---
Assessment and Plan Acute Hypoxemic Resp Failure on supplemental oxygen Bilateral Pleural Effusions (R>L) s/p thoracentesis FLORIDALMA (recent contrast nephropathy) Morbid Obesity Sleep apnea Pulmonary HTN, moderate RVSP 46 Acute kidney injury secondary to visible nephropathy on chronic kidney disease stage III and underlying HTN and dm Gastritis antrum with congestion and erythema Recent diagnosis of contrast-induced nephropathy Intractable Nausea and vomiting Acute cystitis with no evidence of sepsis Plan - Wean supplemental oxygen to keep O2 saturations >90% -Home oxygen evaluation when discharge appropriate -Increase activity, PT/OT -Monitor renal function closely, avoid nephrotoxic agents -Bronchodilators per protocol -Follow final pleural fluid report -Needs outpatient in lab sleep study when discharged , so she can get PAP therapy, the patient has pulmonary hypertension which could be as a result of untreated sleep apnea -Weight loss and life style modifications on discharge Discussed in details with RT and RN Updated the patient and her daughter at the bedside re care plan Initiate discharge planning Subjective Date of service: 08/06/18 Principal diagnosis: ARF on CKD Interval history: Patient is seen today for: Acute Hypoxemic Resp Failure,Bilateral Pleural Effusions (R>L), FLORIDALMA (recent contrast nephropathy) Morbid Obesity Seen and examined at bedside; 24hour events reviewed; Vitals, labs, medications, chart and imaging reviewed; nursing and respiratory care staff consulted; no adverse overnight events reported to me; Daughter at the bedside. Patient has on going shortness of breath, requiring supplemental oxygen. No sleeping well at night. She denies any chest pain, no nausea or vomiting, no diarrhea. Ambulated with PT yesterday. No fevers or chills, no cough. Generally beginning to feel better Objective Vital Signs - 12hr 08/05/18 08/05/18 08/05/18 21:13 21:52 22:00 Temperature 98.0 F Pulse Rate 81 86 Pulse Rate [ Anterior Bilateral Throughout] Respiratory 20 Rate Respiratory Rate [Anterior Bilateral Throughout] Blood Pressure 145/56 O2 Sat by Pulse 92 94 97 Oximetry 08/05/18 08/05/18 08/05/18 22:12 22:14 22:22 Temperature Pulse Rate 86 Pulse Rate [ 84 Anterior Bilateral Throughout] Respiratory Rate Respiratory 20 Rate [Anterior Bilateral Throughout] Blood Pressure 145/60 O2 Sat by Pulse 94 Oximetry 08/06/18 08/06/18 08/06/18 01:55 06:28 07:21 Temperature 98.5 F Pulse Rate 82 80 87 Pulse Rate [ Anterior Bilateral Throughout] Respiratory 20 Rate Respiratory Rate [Anterior Bilateral Throughout] Blood Pressure 177/87 170/84 148/58 O2 Sat by Pulse 92 93 Oximetry 08/06/18 08/06/18 07:50 08:02 Temperature 98.3 F Pulse Rate Pulse Rate [ Anterior Bilateral Throughout] Respiratory Rate Respiratory Rate [Anterior Bilateral Throughout] Blood Pressure O2 Sat by Pulse 93 Oximetry Constitutional: no acute distress, alert Eyes: non-icteric ENT: oropharynx moist, other (Mallampatti score 4/4, short neck) Neck: supple, no lymphadenopathy, no JVD, other Effort: mildly labored Ascultation: Bilateral: diminished breath sounds Cardiovascular: regular rate and rhythm, other (S1,S2, no murmurs) Gastrointestinal: normoactive bowel sounds, soft, non-tender, other (BS present and normoactive) Integumentary: normal Extremities: no cyanosis, no edema, pink and warm, pulses normal, no ischemia or petechiae Neurologic: normal mental status, non-focal exam, pupils equal and round, CN II- XII normal Psychiatric: mood appropriate, anxious CBC and BMP: 08/04/18 06:45 08/07/18 05:16 ABG, PT/INR, D-dimer: PT/INR, D-dimer PT 15.4 Sec. (12.2-14.9) H 08/02/18 20:51 INR 1.15 (0.87-1.13) H 08/02/18 20:51 Abnormal lab findings: Abnormal Labs 07/31/18 07/31/18 07/31/18 07:30 07:30 07:58 RBC 3.35 L Hgb 8.3 L Hct 25.4 L MCV 76 L MCH 25 L RDW 18.6 H Lymph % (Auto) 5.0 L Lymph # 0.5 L Seg Neutrophils % 88.9 H Seg Neutrophils # 8.4 H PT INR Sodium 126 L Chloride 90.2 L Carbon Dioxide 20 L BUN 37 H Creatinine 2.7 H Glucose 198 H POC Glucose Calcium AST 106 H ALT 76 H Lactate Dehydrogenase Albumin 3.2 L Urine WBC (Auto) > 182.0 H Urine Creatinine Urine Total Protein 07/31/18 07/31/18 07/31/18 15:07 15:07 16:51 RBC Hgb Hct MCV MCH RDW Lymph % (Auto) Lymph # Seg Neutrophils % Seg Neutrophils # PT INR Sodium 129 L Chloride 93.4 L Carbon Dioxide 21 L BUN 37 H Creatinine 2.4 H Glucose 198 H POC Glucose 196 H Calcium AST 98 H ALT 77 H Lactate Dehydrogenase Albumin 3.2 L Urine WBC (Auto) Urine Creatinine Urine Total Protein 07/31/18 07/31/18 08/01/18 21:01 Unknown 05:07 RBC 3.11 L Hgb 7.8 L Hct 23.7 L MCV 76 L MCH 25 L RDW 18.8 H Lymph % (Auto) 6.3 L Lymph # 0.6 L Seg Neutrophils % 86.5 H Seg Neutrophils # 8.0 H PT INR Sodium Chloride Carbon Dioxide BUN Creatinine Glucose POC Glucose 213 H Calcium AST ALT Lactate Dehydrogenase Albumin Urine WBC (Auto) Urine Creatinine 108.9 H Urine Total Protein 168 H 08/01/18 08/01/18 08/01/18 05:07 07:50 12:00 RBC Hgb Hct MCV MCH RDW Lymph % (Auto) Lymph # Seg Neutrophils % Seg Neutrophils # PT INR Sodium 134 L Chloride Carbon Dioxide 19 L BUN 37 H Creatinine 2.6 H Glucose 149 H POC Glucose 150 H 148 H Calcium 8.3 L AST 87 H ALT 78 H Lactate Dehydrogenase Albumin 3.0 L Urine WBC (Auto) Urine Creatinine Urine Total Protein 08/01/18 08/01/18 08/01/18 13:01 16:57 23:28 RBC Hgb Hct MCV MCH RDW Lymph % (Auto) Lymph # Seg Neutrophils % Seg Neutrophils # PT INR Sodium Chloride Carbon Dioxide BUN Creatinine Glucose POC Glucose 174 H 254 H 221 H Calcium AST ALT Lactate Dehydrogenase Albumin Urine WBC (Auto) Urine Creatinine Urine Total Protein 08/02/18 08/02/18 08/02/18 06:10 06:10 11:30 RBC 3.51 L Hgb 8.7 L Hct 26.8 L MCV 76 L MCH 25 L RDW 19.2 H Lymph % (Auto) 5.9 L Lymph # 0.5 L Seg Neutrophils % 88.3 H Seg Neutrophils # PT INR Sodium Chloride Carbon Dioxide 19 L BUN 31 H Creatinine 2.0 H Glucose 234 H POC Glucose 235 H Calcium AST ALT Lactate Dehydrogenase Albumin Urine WBC (Auto) Urine Creatinine Urine Total Protein 08/02/18 08/02/18 08/02/18 13:08 13:44 17:35 RBC Hgb Hct MCV MCH RDW Lymph % (Auto) Lymph # Seg Neutrophils % Seg Neutrophils # PT INR Sodium Chloride Carbon Dioxide BUN Creatinine Glucose POC Glucose 279 H 265 H 301 H Calcium AST ALT Lactate Dehydrogenase Albumin Urine WBC (Auto) Urine Creatinine Urine Total Protein 08/02/18 08/02/18 08/03/18 20:51 20:51 00:00 RBC Hgb Hct MCV MCH RDW Lymph % (Auto) Lymph # Seg Neutrophils % Seg Neutrophils # PT 15.4 H INR 1.15 H Sodium 136 L Chloride Carbon Dioxide 21 L BUN 31 H Creatinine 2.0 H Glucose 355 H POC Glucose 313 H Calcium AST ALT 65 H Lactate Dehydrogenase 215 H Albumin 3.4 L Urine WBC (Auto) Urine Creatinine Urine Total Protein 08/03/18 08/03/18 08/03/18 05:04 05:04 06:05 RBC 3.50 L Hgb 8.7 L Hct 27.1 L MCV 78 L MCH 25 L RDW 19.6 H Lymph % (Auto) Lymph # Seg Neutrophils % Seg Neutrophils # PT INR Sodium Chloride 107.7 H Carbon Dioxide 21 L BUN 29 H Creatinine 1.8 H Glucose 222 H POC Glucose 186 H Calcium AST ALT Lactate Dehydrogenase Albumin Urine WBC (Auto) Urine Creatinine Urine Total Protein 08/03/18 08/03/18 08/04/18 12:00 17:33 00:12 RBC Hgb Hct MCV MCH RDW Lymph % (Auto) Lymph # Seg Neutrophils % Seg Neutrophils # PT INR Sodium Chloride Carbon Dioxide BUN Creatinine Glucose POC Glucose 216 H 287 H 232 H Calcium AST ALT Lactate Dehydrogenase Albumin Urine WBC (Auto) Urine Creatinine Urine Total Protein 08/04/18 08/04/18 08/04/18 06:05 06:45 06:45 RBC 3.47 L Hgb 8.8 L Hct 26.6 L MCV 77 L MCH 25 L RDW 19.7 H Lymph % (Auto) 6.7 L Lymph # 0.7 L Seg Neutrophils % 86.0 H Seg Neutrophils # 9.4 H PT INR Sodium Chloride Carbon Dioxide 21 L BUN 29 H Creatinine 2.0 H Glucose 176 H POC Glucose 174 H Calcium AST ALT Lactate Dehydrogenase Albumin Urine WBC (Auto) Urine Creatinine Urine Total Protein 08/04/18 08/04/18 08/04/18 12:14 17:11 23:46 RBC Hgb Hct MCV MCH RDW Lymph % (Auto) Lymph # Seg Neutrophils % Seg Neutrophils # PT INR Sodium Chloride Carbon Dioxide BUN Creatinine Glucose POC Glucose 267 H 196 H 215 H Calcium AST ALT Lactate Dehydrogenase Albumin Urine WBC (Auto) Urine Creatinine Urine Total Protein 08/05/18 08/05/18 08/05/18 05:10 05:56 11:45 RBC Hgb Hct MCV MCH RDW Lymph % (Auto) Lymph # Seg Neutrophils % Seg Neutrophils # PT INR Sodium Chloride Carbon Dioxide 21 L BUN 29 H Creatinine 2.2 H Glucose 115 H POC Glucose 114 H 198 H Calcium 8.2 L AST ALT Lactate Dehydrogenase Albumin Urine WBC (Auto) Urine Creatinine Urine Total Protein 08/05/18 08/06/18 08/06/18 17:25 00:39 05:39 RBC Hgb Hct MCV MCH RDW Lymph % (Auto) Lymph # Seg Neutrophils % Seg Neutrophils # PT INR Sodium Chloride 108.8 H Carbon Dioxide 20 L BUN 29 H Creatinine 2.2 H Glucose 156 H POC Glucose 205 H 174 H Calcium 8.3 L AST ALT Lactate Dehydrogenase Albumin Urine WBC (Auto) Urine Creatinine Urine Total Protein 08/06/18 06:08 RBC Hgb Hct MCV MCH RDW Lymph % (Auto) Lymph # Seg Neutrophils % Seg Neutrophils # PT INR Sodium Chloride Carbon Dioxide BUN Creatinine Glucose POC Glucose 165 H Calcium AST ALT Lactate Dehydrogenase Albumin Urine WBC (Auto) Urine Creatinine Urine Total Protein Chest x-ray: image reviewed Additional Studies: Echo report reviewed. EF 50-55%; RVSP 46 Pleural fluid- Cytology--clusters of atypical cells, possibly reactive. Pending immunostains to r/o malignancy Allied health notes reviewed: nursing
[2018-08-06] MEDS: SODIUM CHLORIDE FLUSH SYRINGE 10 ML IV SCH ×2 (09:29→22:57)
[2018-08-06] MEDS: ROCEPHIN/NS 1 GM/50 ML 1 GM/50 ML BAG IV SCH (09:29)
[2018-08-06] MEDS: PROTONIX PO SCH (09:32)
[2018-08-06] MEDS: NORVASC PO SCH (09:32)
[2018-08-06] MEDS: DUONEB *Not for PRN Use IH SCH ×3 (09:55→19:26)
--- NOTE | 2018-08-06 11:02 | Progress Note ---
Assessment and Plan Aute Renal Failure seconary to prerenal etiology secondary to N/V on CKD stage 3-4 due to HTN and DM, also recent history of RASHEL and diuretics use with Lasix -decreased kidney function but stable Cr and BUN -Labs from [facility] showed 07/24/18-serum creatinine was 2.51, 07/25/18-serum creatinine was 2.23, 07/26/18 was 1.8. -Renal Ultrasound done showed- known left renal cyst. Monitor outpatient with renal ultrasound. -Patient has compensated Diastolic Heart Failure -Echo at [facility] on 07/22/18 showed LVEF was 62% - d/c IVF -Monitor I/O's -Obtain daily weights -Renally dose medications -Will continue to monitor renal function closely Nausea/Vomiting: -Abdominal CT- negative for acute process -On po Protonix -Has elevated liver enzymes -GI on board UTI: -As per primary Hypertension: -No NITIN or ARB for now until renal function stabilizes Diabetes Mellitus: -On insulin a per primary Compensated Diastolic Heart Failure: -Echo at [facility] on 07/22/18 showed LVEF was 62% Sunday Rosario MD [phone] Subjective Date of service: 08/06/18 Principal diagnosis: ARF on CKD Interval history: feels weak, family at bedside, all questions answered Objective - Vital Signs Vital signs: Vital Signs - 12hr 08/06/18 08/06/18 08/06/18 01:55 06:28 07:21 Temperature 98.5 F Pulse Rate 82 80 87 Pulse Rate [ Anterior Bilateral Throughout] Respiratory 20 Rate Respiratory Rate [Anterior Bilateral Throughout] Blood Pressure 177/87 170/84 148/58 O2 Sat by Pulse 92 93 Oximetry 08/06/18 08/06/18 08/06/18 07:50 08:02 09:55 Temperature 98.3 F Pulse Rate Pulse Rate [ 85 Anterior Bilateral Throughout] Respiratory Rate Respiratory 18 Rate [Anterior Bilateral Throughout] Blood Pressure O2 Sat by Pulse 93 Oximetry 08/06/18 08/06/18 09:59 10:08 Temperature Pulse Rate Pulse Rate [ 86 Anterior Bilateral Throughout] Respiratory Rate Respiratory 18 Rate [Anterior Bilateral Throughout] Blood Pressure O2 Sat by Pulse 97 Oximetry - General Appearance General appearance: well-developed, well-nourished, obese EENT: ATNC, PERRL, mucous membranes moist Neck: no JVD, no carotid bruit Respiratory: Present: Decreased Breath Sounds Cardiology: regular, S1S2 Gastrointestinal: normoactive bowel sounds, no tenderness, no distended Integumentary: no rash, warm and dry Neurologic: no focal deficit, no asterixis, alert and oriented x3 Musculoskeletal: other (azucena edema in BLE) Psychiatric: mood/affect appropriate, cooperative - Lab 08/04/18 06:45 08/06/18 05:39 Most recent lab results Calcium 8.3 mg/dL (8.4-10.2) L 08/06/18 05:39 Phosphorus 3.80 mg/dL (2.5-4.5) 08/03/18 05:04 Magnesium 1.70 mg/dL (1.7-2.3) 08/05/18 05:10 108.9 mg/dL (0.1-20.0) H 07/31/18 Unknown 43 mmol/L 08/01/18 14:48 168 mg/dL (5-11.8) H 07/31/18 Unknown Medications & Allergies - Medications Allergies/Adverse Reactions: Allergies No Known Allergies Allergy (Verified 07/31/18 07:06) Home Medications: Home Medications Medication Instructions Recorded Confirmed Last Taken Type Furosemide [Lasix] 20 mg PO QDAY 07/31/18 07/31/18 Unknown History HYDROcodone/APAP 5-325 [[place] 1 each PO Q4HR PRN 07/31/18 07/31/18 Unknown History 5/325] Pantoprazole Sodium [Protonix] 40 mg PO DAILY 07/31/18 07/31/18 Unknown History Tamsulosin 0.4 mg PO HS 07/31/18 07/31/18 07/30/18 21:00 History amLODIPine [Norvasc] 10 mg PO DAILY 07/31/18 07/31/18 Unknown History hydrALAZINE [Apresoline TAB] 100 mg PO TID 07/31/18 07/31/18 Unknown History Active Medications: Generic Name Dose Route Start Last Admin Trade Name Freq PRN Reason Stop Dose Admin Acetaminophen 650 mg 07/31/18 11:00 08/02/18 19:55 Tylenol PO 650 mg Q4H PRN Administration Pain MILD(1-3)/Fever >100.5/CASTELLANOS Albuterol 2.5 mg 07/31/18 11:00 Proventil IH Q3HRT PRN Shortness Of Breath Albuterol/Ipratropium 1 ampul 08/03/18 20:00 08/06/18 09:55 Duoneb *Not For Prn Use* IH 1 ampul TIDRT TERA Administration Amlodipine Besylate 10 mg 08/02/18 12:00 08/06/18 09:32 Norvasc PO 10 mg QDAY TERA Administration Dextrose 50 ml 07/31/18 11:05 D50w (25gm) Syringe IV PRN PRN Hypoglycemia Dicyclomine HCl 10 mg 07/31/18 19:02 Bentyl PO QID PRN Nausea And Vomiting Hydralazine HCl 10 mg 08/01/18 09:19 08/04/18 03:53 Apresoline IV 10 mg Q4H PRN Administration SBP>160 OR DBP>105 Hydralazine HCl 25 mg 08/03/18 14:00 08/06/18 06:28 Apresoline PO 25 mg Q8HR TERA Administration Ceftriaxone Sodium 1 gm in 50 mls @ 100 mls/hr 07/31/18 12:00 08/06/18 09:29 Rocephin/Ns 1 Gm/50 Ml IV 100 mls/hr Q24HR TEAR Administration Protocol Sodium Chloride 1,000 mls @ 50 mls/hr 08/02/18 13:00 08/05/18 12:11 Nacl 0.9% 1000 Ml IV 50 mls/hr DIRECT TEAR Administration Insulin Human Lispro 0 unit 07/31/18 12:00 08/06/18 06:28 Humalog SUB-Q 1 unit Q6HR TERA Administration Protocol Metoclopramide HCl 10 mg 08/02/18 14:10 08/02/18 14:52 Reglan IV 10 mg Q6H PRN Administration Nausea And Vomiting Morphine Sulfate 2 mg 07/31/18 11:01 08/02/18 03:40 Morphine IV 2 mg Q4H PRN Administration Pain, Moderate (4-6) Ondansetron HCl 4 mg 07/31/18 11:00 08/02/18 10:36 Zofran IV 4 mg Q4H PRN Administration Nausea And Vomiting Pantoprazole Sodium 40 mg 08/01/18 20:00 08/06/18 09:32 Protonix PO 40 mg QDAY TERA Administration Promethazine HCl 12.5 mg 06/01/19 12:30 08/01/18 12:46 Phenergan [place] 12.5 mg Q6H PRN Administration Nausea And Vomiting Sodium Chloride 10 ml 07/31/18 22:00 08/06/18 09:29 Sodium Chloride Flush Syringe 10 Ml IV 10 ml BID TERA Administration Sodium Chloride 10 ml 07/31/18 11:00 Sodium Chloride Flush Syringe 10 Ml IV PRN PRN LINE FLUSH
--- NOTE | 2018-08-06 11:04 | Progress Note ---
Assessment and Plan Assessment and plan: --Bilateral pleural effusions;s/p Rt. thoracentesis Removal of 600 mL pleural fluid, analysis pending Pulmonary following, follow fluid analysis, cultures --Acute cystitis /urinary tract infection gram-negative rods Continue Rocephin and follow sensitivities --Hypertensive urgency; continue current antihypertensives Add hydralazine 25 3 times a day, when necessary hydralazine IV Closely monitor --Acute kidney injury; secondary to vasomotor nephropathy on chronic kidney disease stage II and underlying diabetic and hypertensive nephropathy, gentle hydration, nephrology following --Recent diagnosis of contrast-induced nephropathy --Intractable Nausea and vomiting ----Acute gastritis; status post EGD Continue PPI, advance diet as tolerated --HypoNatremia- resolved --Anemia of chronic disease --stable diastolic congestive heart failur --Diabetes mellitus with hyperglycemia --Obesity; BMI 39.6 --[id number] malnutrition/hypoalbuminemia --DVT prophylaxis --FULL CODE STATUS Plan of care reviewed with the patient, daughter at the bedside and his nurse History Interval history: Patient seen and exam and medical records reviewed Complaints of mild shortness of breath O2 sats less than 88, indication for home oxygen Patient denies chest pain No nausea or vomiting Vital signs noted Hospitalist Physical - Constitutional Vitals: Temp Pulse Resp BP Pulse Ox 98.3 F 86 18 148/58 97 08/06/18 07:50 08/06/18 10:08 08/06/18 10:08 08/06/18 07:21 08/06/18 09:59 General appearance: Present: no acute distress, well-nourished, obese (morbidly obese) - EENT Eyes: Present: PERRL, EOM intact - Neck Neck: Present: supple, normal ROM - Respiratory Respiratory effort: normal Respiratory: bilateral: diminished, rhonchi, negative: rales, wheezing - Cardiovascular Rhythm: regular Heart Sounds: Present: S1 & S2 - Extremities Extremities: no ischemia, No edema - Abdominal General gastrointestinal: soft, non-tender, non-distended, normal bowel sounds - Integumentary Integumentary: Present: clear, warm - Psychiatric Psychiatric: appropriate mood/affect, cooperative - Neurologic Neurologic: CNII-XII intact, moves all extremities Results - Labs CBC & Chem 7: 08/04/18 06:45 08/06/18 05:39 Labs: Laboratory Last Values WBC 10.9 K/mm3 (4.5-11.0) 08/04/18 06:45 RBC 3.47 M/mm3 (3.65-5.03) L 08/04/18 06:45 Hgb 8.8 gm/dl (10.1-14.3) L 08/04/18 06:45 Hct 26.6 % (30.3-42.9) L 08/04/18 06:45 MCV 77 fl (79-97) L 08/04/18 06:45 MCH 25 pg (28-32) L 08/04/18 06:45 MCHC 33 % (30-34) 08/04/18 06:45 RDW 19.7 % (13.2-15.2) H 08/04/18 06:45 Plt Count 352 K/mm3 (140-440) 08/04/18 06:45 Lymph % (Auto) 6.7 % (13.4-35.0) L 08/04/18 06:45 [place] % (Auto) 6.7 % (0.0-7.3) 08/04/18 06:45 Eos % (Auto) 0.3 % (0.0-4.3) 08/04/18 06:45 Baso % (Auto) 0.3 % (0.0-1.8) 08/04/18 06:45 Lymph # 0.7 K/mm3 (1.2-5.4) L 08/04/18 06:45 [place] # 0.7 K/mm3 (0.0-0.8) 08/04/18 06:45 Eos # 0.0 K/mm3 (0.0-0.4) 08/04/18 06:45 Baso # 0.0 K/mm3 (0.0-0.1) 08/04/18 06:45 Seg Neutrophils % 86.0 % (40.0-70.0) H 08/04/18 06:45 Seg Neutrophils # 9.4 K/mm3 (1.8-7.7) H 08/04/18 06:45 PT 15.4 Sec. (12.2-14.9) H 08/02/18 20:51 INR 1.15 (0.87-1.13) H 08/02/18 20:51 Sodium 139 mmol/L (137-145) 08/06/18 05:39 Potassium 4.1 mmol/L (3.6-5.0) 08/06/18 05:39 Chloride 108.8 mmol/L (98-107) H 08/06/18 05:39 Carbon Dioxide 20 mmol/L (22-30) L 08/06/18 05:39 14 mmol/L 08/06/18 05:39 BUN 29 mg/dL (7-17) H 08/06/18 05:39 2.2 mg/dL (0.7-1.2) H 08/06/18 05:39 Estimated GFR 22 ml/min 08/06/18 05:39 13 % 08/06/18 05:39 Glucose 156 mg/dL (65-100) H 08/06/18 05:39 POC Glucose 165 (70-105) H 08/06/18 06:08 306 Mosm/kg 07/31/18 12:31 Calcium 8.3 mg/dL (8.4-10.2) L 08/06/18 05:39 Phosphorus 3.80 mg/dL (2.5-4.5) 08/03/18 05:04 Magnesium 1.70 mg/dL (1.7-2.3) 08/05/18 05:10 0.20 mg/dL (0.1-1.2) 08/02/18 20:51 < 0.2 mg/dL (0-0.2) 07/31/18 15:07 0.1 mg/dL 07/31/18 15:07 AST 37 units/L (5-40) 08/02/18 20:51 ALT 65 units/L (7-56) H 08/02/18 20:51 105 units/L (35-129) 08/02/18 20:51 215 units/L (91-180) H 08/02/18 20:51 7.1 g/dL (6.3-8.2) 08/02/18 20:51 3.4 g/dL (3.9-5) L 08/02/18 20:51 0.9 % 08/02/18 20:51 34 units/L (13-60) 07/31/18 07:30 Yellow (Yellow) 07/31/18 07:58 Cloudy (Clear) 07/31/18 07:58 5.0 (5.0-7.0) 07/31/18 07:58 Ur Specific [place] 1.011 (1.003-1.030) 07/31/18 07:58 100 mg/dl mg/dL (Negative) 07/31/18 07:58 Neg mg/dL (Negative) 07/31/18 07:58 Neg mg/dL (Negative) 07/31/18 07:58 Neg (Negative) 07/31/18 07:58 Neg (Negative) 07/31/18 07:58 Neg (Negative) 07/31/18 07:58 < 2.0 mg/dL (<2.0) 07/31/18 07:58 Ur Leukocyte Esterase Lg (Negative) 07/31/18 07:58 > 182.0 /HPF (0.0-6.0) H 07/31/18 07:58 12.0 /HPF (0.0-6.0) 07/31/18 07:58 U Epithel Cells (Auto) 1.0 /HPF (0-13.0) 07/31/18 07:58 2+ /HPF (Negative) 07/31/18 07:58 3+ /HPF 07/31/18 07:58 Few /HPF 07/31/18 07:58 3+ /HPF 07/31/18 07:58 268 Mosm/kg 07/31/18 Unknown 108.9 mg/dL (0.1-20.0) H 07/31/18 Unknown Protein/Creatinin Ratio 1.54 07/31/18 Unknown 43 mmol/L 08/01/18 14:48 168 mg/dL (5-11.8) H 07/31/18 Unknown Hepatitis A IgM Ab Non-reactive (NonReactive) 08/01/18 09:36 Hep Bs Antigen Non-reactive (Negative) 08/01/18 09:36 Hep B Core IgM Ab Non-reactive (NonReactive) 08/01/18 09:36 Non-reactive (NonReactive) 08/01/18 09:36 Active Medications - Current Medications Current Medications: Generic Name Dose Route Start Last Admin Trade Name Freq PRN Reason Stop Dose Admin Acetaminophen 650 mg 07/31/18 11:00 08/02/18 19:55 Tylenol PO 650 mg Q4H PRN Administration Pain MILD(1-3)/Fever >100.5/CASTELLANOS Albuterol 2.5 mg 07/31/18 11:00 Proventil IH Q3HRT PRN Shortness Of Breath Albuterol/Ipratropium 1 ampul 08/03/18 20:00 08/06/18 09:55 Duoneb *Not For Prn Use* IH 1 ampul TIDRT TERA Administration Amlodipine Besylate 10 mg 08/02/18 12:00 08/06/18 09:32 Norvasc PO 10 mg QDAY TERA Administration Dextrose 50 ml 07/31/18 11:05 D50w (25gm) Syringe IV PRN PRN Hypoglycemia Dicyclomine HCl 10 mg 07/31/18 19:02 Bentyl PO QID PRN Nausea And Vomiting Hydralazine HCl 10 mg 08/01/18 09:19 08/04/18 03:53 Apresoline IV 10 mg Q4H PRN Administration SBP>160 OR DBP>105 Hydralazine HCl 25 mg 08/03/18 14:00 08/06/18 06:28 Apresoline PO 25 mg Q8HR TERA Administration Ceftriaxone Sodium 1 gm in 50 mls @ 100 mls/hr 07/31/18 12:00 08/06/18 09:29 Rocephin/Ns 1 Gm/50 Ml IV 100 mls/hr Q24HR TERA Administration Protocol Insulin Human Lispro 0 unit 07/31/18 12:00 08/06/18 06:28 Humalog SUB-Q 1 unit Q6HR TERA Administration Protocol Metoclopramide HCl 10 mg 08/02/18 14:10 08/02/18 14:52 Reglan IV 10 mg Q6H PRN Administration Nausea And Vomiting Morphine Sulfate 2 mg 07/31/18 11:01 08/02/18 03:40 Morphine IV 2 mg Q4H PRN Administration Pain, Moderate (4-6) Ondansetron HCl 4 mg 07/31/18 11:00 08/02/18 10:36 Zofran IV 4 mg Q4H PRN Administration Nausea And Vomiting Pantoprazole Sodium 40 mg 08/01/18 20:00 08/06/18 09:32 Protonix PO 40 mg QDAY TERA Administration Promethazine HCl 12.5 mg 08/01/18 12:30 08/01/18 12:46 Phenergan [place] 12.5 mg Q6H PRN Administration Nausea And Vomiting Sodium Chloride 10 ml 07/31/18 22:00 08/06/18 09:29 Sodium Chloride Flush Syringe 10 Ml IV 10 ml BID TERA Administration Sodium Chloride 10 ml 07/31/18 11:00 Sodium Chloride Flush Syringe 10 Ml IV PRN PRN LINE FLUSH
[2018-08-07] MEDS: HumaLOG SUB-Q SCH ×2 (01:07→07:41)
[2018-08-07] MEDS: APRESOLINE PO SCH ×2 (06:39→13:39)
--- NOTE | 2018-08-07 07:42 | Progress Note ---
Assessment and Plan Acute Hypoxemic Resp Failure on supplemental oxygen Bilateral Pleural Effusions (R>L) s/p thoracentesis FLORIDALMA (recent contrast nephropathy) Morbid Obesity Sleep apnea Pulmonary HTN, moderate RVSP 46 Acute kidney injury secondary to visible nephropathy on chronic kidney disease stage III and underlying HTN and dm Gastritis antrum with congestion and erythema Recent diagnosis of contrast-induced nephropathy Intractable Nausea and vomiting Acute cystitis with no evidence of sepsis Plan - Wean supplemental oxygen to keep O2 saturations >90% -Home oxygen evaluation when discharge appropriate -Increase activity, PT/OT -Monitor renal function closely, avoid nephrotoxic agents -Bronchodilators per protocol -Follow final pleural fluid report -Needs outpatient in lab sleep study when discharged , so she can get PAP therapy, the patient has pulmonary hypertension which could be as a result of untreated sleep apnea -Weight loss and life style modifications on discharge Discussed in details with RT and RN Updated the patient and her daughter at the bedside re care plan Initiate discharge planning, discussed with hospitalist service. From respiratory standpoint she is ready for discharge planning with out patietn follow up. However there is a slight worsening of her renal function today, compared to yesterday. Subjective Date of service: 08/07/18 Principal diagnosis: ARF on CKD Interval history: Patient is seen today for: Acute Hypoxemic Resp Failure,Bilateral Pleural Effusions (R>L), FLORIDALMA (recent contrast nephropathy) Morbid Obesity Seen and examined at bedside; 24hour events reviewed; Vitals, labs, medications, chart and imaging reviewed; nursing and respiratory care staff consulted; no adverse overnight events reported to me; Daughter at the bedside. Patient has on going shortness of breath, requiring supplemental oxygen. She denies any chest pain, no nausea or vomiting, no diarrhea. Ambulated with PT yesterday, failed 6 minute walk keyana. No fevers or chills, no cough. Generally beginning to feel better, slept well last night Objective Vital Signs - 12hr 08/06/18 08/06/18 08/07/18 22:00 22:57 02:05 Temperature 97.9 F Pulse Rate 87 80 Respiratory 18 Rate Blood Pressure 147/69 162/79 O2 Sat by Pulse 93 94 Oximetry Constitutional: no acute distress, alert Eyes: non-icteric ENT: oropharynx moist, other (Mallampatti score 4/4, short neck) Neck: supple, no lymphadenopathy, no JVD, other Effort: mildly labored Ascultation: Bilateral: diminished breath sounds Cardiovascular: regular rate and rhythm, other (S1,S2, no murmurs) Gastrointestinal: normoactive bowel sounds, soft, non-tender, other (BS present and normoactive) Integumentary: normal Extremities: no cyanosis, no edema, pink and warm, pulses normal, no ischemia or petechiae Neurologic: normal mental status, non-focal exam, pupils equal and round, CN II- XII normal Psychiatric: mood appropriate, anxious CBC and BMP: 08/04/18 06:45 08/07/18 05:16 ABG, PT/INR, D-dimer: ABG POC ABG pH 7.318 (7.35-7.45) L 08/06/18 16:55 POC ABG pCO2 36.8 (35-45) 08/06/18 16:55 POC ABG HCO3 18.8 (22-26 mml/L) 08/06/18 16:55 POC ABG Total CO2 20 (23-27mmol/L) 08/06/18 16:55 POC ABG O2 Sat 72 08/06/18 16:55 PT/INR, D-dimer PT 15.4 Sec. (12.2-14.9) H 08/02/18 20:51 INR 1.15 (0.87-1.13) H 08/02/18 20:51 Abnormal lab findings: Abnormal Labs 07/31/18 07/31/18 07/31/18 07:30 07:30 07:58 RBC 3.35 L Hgb 8.3 L Hct 25.4 L MCV 76 L MCH 25 L RDW 18.6 H Lymph % (Auto) 5.0 L Lymph # 0.5 L Seg Neutrophils % 88.9 H Seg Neutrophils # 8.4 H PT INR POC ABG pH Sodium 126 L Chloride 90.2 L Carbon Dioxide 20 L BUN 37 H Creatinine 2.7 H Glucose 198 H POC Glucose Calcium AST 106 H ALT 76 H Lactate Dehydrogenase Albumin 3.2 L Urine WBC (Auto) > 182.0 H Urine Creatinine Urine Total Protein 07/31/18 07/31/18 07/31/18 15:07 15:07 16:51 RBC Hgb Hct MCV MCH RDW Lymph % (Auto) Lymph # Seg Neutrophils % Seg Neutrophils # PT INR POC ABG pH Sodium 129 L Chloride 93.4 L Carbon Dioxide 21 L BUN 37 H Creatinine 2.4 H Glucose 198 H POC Glucose 196 H Calcium AST 98 H ALT 77 H Lactate Dehydrogenase Albumin 3.2 L Urine WBC (Auto) Urine Creatinine Urine Total Protein 07/31/18 07/31/18 08/01/18 21:01 Unknown 05:07 RBC 3.11 L Hgb 7.8 L Hct 23.7 L MCV 76 L MCH 25 L RDW 18.8 H Lymph % (Auto) 6.3 L Lymph # 0.6 L Seg Neutrophils % 86.5 H Seg Neutrophils # 8.0 H PT INR POC ABG pH Sodium Chloride Carbon Dioxide BUN Creatinine Glucose POC Glucose 213 H Calcium AST ALT Lactate Dehydrogenase Albumin Urine WBC (Auto) Urine Creatinine 108.9 H Urine Total Protein 168 H 08/01/18 08/01/18 08/01/18 05:07 07:50 12:00 RBC Hgb Hct MCV MCH RDW Lymph % (Auto) Lymph # Seg Neutrophils % Seg Neutrophils # PT INR POC ABG pH Sodium 134 L Chloride Carbon Dioxide 19 L BUN 37 H Creatinine 2.6 H Glucose 149 H POC Glucose 150 H 148 H Calcium 8.3 L AST 87 H ALT 78 H Lactate Dehydrogenase Albumin 3.0 L Urine WBC (Auto) Urine Creatinine Urine Total Protein 08/01/18 08/01/18 08/01/18 13:01 16:57 23:28 RBC Hgb Hct MCV MCH RDW Lymph % (Auto) Lymph # Seg Neutrophils % Seg Neutrophils # PT INR POC ABG pH Sodium Chloride Carbon Dioxide BUN Creatinine Glucose POC Glucose 174 H 254 H 221 H Calcium AST ALT Lactate Dehydrogenase Albumin Urine WBC (Auto) Urine Creatinine Urine Total Protein 08/02/18 08/02/18 08/02/18 06:10 06:10 11:30 RBC 3.51 L Hgb 8.7 L Hct 26.8 L MCV 76 L MCH 25 L RDW 19.2 H Lymph % (Auto) 5.9 L Lymph # 0.5 L Seg Neutrophils % 88.3 H Seg Neutrophils # PT INR POC ABG pH Sodium Chloride Carbon Dioxide 19 L BUN 31 H Creatinine 2.0 H Glucose 234 H POC Glucose 235 H Calcium AST ALT Lactate Dehydrogenase Albumin Urine WBC (Auto) Urine Creatinine Urine Total Protein 08/02/18 08/02/18 08/02/18 13:08 13:44 17:35 RBC Hgb Hct MCV MCH RDW Lymph % (Auto) Lymph # Seg Neutrophils % Seg Neutrophils # PT INR POC ABG pH Sodium Chloride Carbon Dioxide BUN Creatinine Glucose POC Glucose 279 H 265 H 301 H Calcium AST ALT Lactate Dehydrogenase Albumin Urine WBC (Auto) Urine Creatinine Urine Total Protein 08/02/18 08/02/18 08/03/18 20:51 20:51 00:00 RBC Hgb Hct MCV MCH RDW Lymph % (Auto) Lymph # Seg Neutrophils % Seg Neutrophils # PT 15.4 H INR 1.15 H POC ABG pH Sodium 136 L Chloride Carbon Dioxide 21 L BUN 31 H Creatinine 2.0 H Glucose 355 H POC Glucose 313 H Calcium AST ALT 65 H Lactate Dehydrogenase 215 H Albumin 3.4 L Urine WBC (Auto) Urine Creatinine Urine Total Protein 08/03/18 08/03/18 08/03/18 05:04 05:04 06:05 RBC 3.50 L Hgb 8.7 L Hct 27.1 L MCV 78 L MCH 25 L RDW 19.6 H Lymph % (Auto) Lymph # Seg Neutrophils % Seg Neutrophils # PT INR POC ABG pH Sodium Chloride 107.7 H Carbon Dioxide 21 L BUN 29 H Creatinine 1.8 H Glucose 222 H POC Glucose 186 H Calcium AST ALT Lactate Dehydrogenase Albumin Urine WBC (Auto) Urine Creatinine Urine Total Protein 08/03/18 08/03/18 08/04/18 12:00 17:33 00:12 RBC Hgb Hct MCV MCH RDW Lymph % (Auto) Lymph # Seg Neutrophils % Seg Neutrophils # PT INR POC ABG pH Sodium Chloride Carbon Dioxide BUN Creatinine Glucose POC Glucose 216 H 287 H 232 H Calcium AST ALT Lactate Dehydrogenase Albumin Urine WBC (Auto) Urine Creatinine Urine Total Protein 08/04/18 08/04/18 08/04/18 06:05 06:45 06:45 RBC 3.47 L Hgb 8.8 L Hct 26.6 L MCV 77 L MCH 25 L RDW 19.7 H Lymph % (Auto) 6.7 L Lymph # 0.7 L Seg Neutrophils % 86.0 H Seg Neutrophils # 9.4 H PT INR POC ABG pH Sodium Chloride Carbon Dioxide 21 L BUN 29 H Creatinine 2.0 H Glucose 176 H POC Glucose 174 H Calcium AST ALT Lactate Dehydrogenase Albumin Urine WBC (Auto) Urine Creatinine Urine Total Protein 08/04/18 08/04/18 08/04/18 12:14 17:11 23:46 RBC Hgb Hct MCV MCH RDW Lymph % (Auto) Lymph # Seg Neutrophils % Seg Neutrophils # PT INR POC ABG pH Sodium Chloride Carbon Dioxide BUN Creatinine Glucose POC Glucose 267 H 196 H 215 H Calcium AST ALT Lactate Dehydrogenase Albumin Urine WBC (Auto) Urine Creatinine Urine Total Protein 08/05/18 08/05/18 08/05/18 05:10 05:56 11:45 RBC Hgb Hct MCV MCH RDW Lymph % (Auto) Lymph # Seg Neutrophils % Seg Neutrophils # PT INR POC ABG pH Sodium Chloride Carbon Dioxide 21 L BUN 29 H Creatinine 2.2 H Glucose 115 H POC Glucose 114 H 198 H Calcium 8.2 L AST ALT Lactate Dehydrogenase Albumin Urine WBC (Auto) Urine Creatinine Urine Total Protein 08/05/18 08/06/18 08/06/18 17:25 00:39 05:39 RBC Hgb Hct MCV MCH RDW Lymph % (Auto) Lymph # Seg Neutrophils % Seg Neutrophils # PT INR POC ABG pH Sodium Chloride 108.8 H Carbon Dioxide 20 L BUN 29 H Creatinine 2.2 H Glucose 156 H POC Glucose 205 H 174 H Calcium 8.3 L AST ALT Lactate Dehydrogenase Albumin Urine WBC (Auto) Urine Creatinine Urine Total Protein 08/06/18 08/06/18 08/06/18 06:08 11:44 16:55 RBC Hgb Hct MCV MCH RDW Lymph % (Auto) Lymph # Seg Neutrophils % Seg Neutrophils # PT INR POC ABG pH 7.318 L Sodium Chloride Carbon Dioxide BUN Creatinine Glucose POC Glucose 165 H 319 H Calcium AST ALT Lactate Dehydrogenase Albumin Urine WBC (Auto) Urine Creatinine Urine Total Protein 08/06/18 08/07/18 08/07/18 17:17 00:13 05:16 RBC Hgb Hct MCV MCH RDW Lymph % (Auto) Lymph # Seg Neutrophils % Seg Neutrophils # PT INR POC ABG pH Sodium Chloride Carbon Dioxide 21 L BUN 31 H Creatinine 2.5 H Glucose 160 H POC Glucose 192 H 288 H Calcium 8.0 L AST ALT Lactate Dehydrogenase Albumin Urine WBC (Auto) Urine Creatinine Urine Total Protein 08/07/18 06:19 RBC Hgb Hct MCV MCH RDW Lymph % (Auto) Lymph # Seg Neutrophils % Seg Neutrophils # PT INR POC ABG pH Sodium Chloride Carbon Dioxide BUN Creatinine Glucose POC Glucose 177 H Calcium AST ALT Lactate Dehydrogenase Albumin Urine WBC (Auto) Urine Creatinine Urine Total Protein Chest x-ray: image reviewed Allied health notes reviewed: nursing
--- NOTE | 2018-08-07 08:54 | Progress Note ---
Assessment and Plan Aute Renal Failure seconary to prerenal etiology secondary to N/V on CKD stage 3-4 due to HTN and DM, also recent history of RASHEL and diuretics use with Lasix -noted increased Cr since yesterday, if cont to rise but will avoid IVF for now due to edema in BLEm, she already has been challenged adequately -Labs from [facility] showed 07/24/18-serum creatinine was 2.51, 07/25/18-serum creatinine was 2.23, 07/26/18 was 1.8. -Renal Ultrasound done showed- known left renal cyst. Monitor outpatient with renal ultrasound. -Patient has compensated Diastolic Heart Failure -Echo at [facility] on 07/22/18 showed LVEF was 62% -Monitor I/O's -Obtain daily weights -Renally dose medications -Will continue to monitor renal function closely Nausea/Vomiting: -Abdominal CT- negative for acute process -On po Protonix -Has elevated liver enzymes -GI on board UTI: -As per primary Hypertension: -No NITIN or ARB for now until renal function stabilizes Diabetes Mellitus: -On insulin a per primary Compensated Diastolic Heart Failure: -Echo at [facility] on 07/22/18 showed LVEF was 62% Subjective Date of service: 08/07/18 Principal diagnosis: ARF on CKD Interval history: weak with mild SOB, family at bedside, all questions answered Objective - Vital Signs Vital signs: Vital Signs - 12hr 08/06/18 08/06/18 08/07/18 22:00 22:57 02:05 Temperature 97.9 F Pulse Rate 87 80 Respiratory 18 Rate Blood Pressure 147/69 162/79 Blood Pressure [Left] O2 Sat by Pulse 93 94 Oximetry 08/07/18 08/07/18 08/07/18 07:25 08:46 08:47 Temperature 98.3 F Pulse Rate 84 89 Respiratory 20 Rate Blood Pressure 175/76 158/81 Blood Pressure 158/81 [Left] O2 Sat by Pulse 96 Oximetry - General Appearance General appearance: well-developed, well-nourished, obese EENT: ATNC, PERRL, mucous membranes moist Neck: no JVD, no carotid bruit Respiratory: Present: Clear to Ascultation. Absent: Rales, Ronchi Cardiology: regular, S1S2 Gastrointestinal: normoactive bowel sounds, no tenderness, no distended Integumentary: no rash, warm and dry Neurologic: no focal deficit, no asterixis, alert and oriented x3 Musculoskeletal: other (1+ pitting edema in BLE) Psychiatric: mood/affect appropriate, cooperative - Lab 08/04/18 06:45 08/07/18 05:16 Most recent lab results Calcium 8.0 mg/dL (8.4-10.2) L 08/07/18 05:16 Phosphorus 3.80 mg/dL (2.5-4.5) 08/03/18 05:04 Magnesium 1.70 mg/dL (1.7-2.3) 08/05/18 05:10 108.9 mg/dL (0.1-20.0) H 07/31/18 Unknown 43 mmol/L 08/01/18 14:48 168 mg/dL (5-11.8) H 07/31/18 Unknown Medications & Allergies - Medications Allergies/Adverse Reactions: Allergies No Known Allergies Allergy (Verified 07/31/18 07:06) Home Medications: Home Medications Medication Instructions Recorded Confirmed Last Taken Type Furosemide [Lasix] 20 mg PO QDAY 07/31/18 07/31/18 Unknown History HYDROcodone/APAP 5-325 [[place] 1 each PO Q4HR PRN 07/31/18 07/31/18 Unknown History 5/325] Pantoprazole Sodium [Protonix] 40 mg PO DAILY 07/31/18 07/31/18 Unknown History Tamsulosin 0.4 mg PO HS 07/31/18 07/31/18 07/30/18 21:00 History amLODIPine [Norvasc] 10 mg PO DAILY 07/31/18 07/31/18 Unknown History hydrALAZINE [Apresoline TAB] 100 mg PO TID 07/31/18 07/31/18 Unknown History Active Medications: Generic Name Dose Route Start Last Admin Trade Name Freq PRN Reason Stop Dose Admin Acetaminophen 650 mg 07/31/18 11:00 08/02/18 19:55 Tylenol PO 650 mg Q4H PRN Administration Pain MILD(1-3)/Fever >100.5/CASTELLANOS Albuterol 2.5 mg 07/31/18 11:00 Proventil IH Q3HRT PRN Shortness Of Breath Albuterol/Ipratropium 1 ampul 08/03/18 20:00 08/06/18 19:26 Duoneb *Not For Prn Use* IH 1 ampul TIDRT TERA Administration Amlodipine Besylate 10 mg 08/02/18 12:00 08/06/18 09:32 Norvasc PO 10 mg QDAY TERA Administration Dextrose 50 ml 07/31/18 11:05 D50w (25gm) Syringe IV PRN PRN Hypoglycemia Dicyclomine HCl 10 mg 07/31/18 19:02 Bentyl PO QID PRN Nausea And Vomiting Hydralazine HCl 10 mg 08/01/18 09:19 08/04/18 03:53 Apresoline IV 10 mg Q4H PRN Administration SBP>160 OR DBP>105 Hydralazine HCl 25 mg 08/03/18 14:00 08/07/18 06:39 Apresoline PO 25 mg Q8HR TERA Administration Ceftriaxone Sodium 1 gm in 50 mls @ 100 mls/hr 07/31/18 12:00 08/06/18 10:59 Rocephin/Ns 1 Gm/50 Ml IV Infused Q24HR TERA Infusion Protocol Insulin Human Lispro 0 unit 08/07/18 11:30 Humalog SUB-Q ACHS TERA Protocol Metoclopramide HCl 10 mg 08/02/18 14:10 08/02/18 14:52 Reglan IV 10 mg Q6H PRN Administration Nausea And Vomiting Morphine Sulfate 2 mg 07/31/18 11:01 08/02/18 03:40 Morphine IV 2 mg Q4H PRN Administration Pain, Moderate (4-6) Ondansetron HCl 4 mg 07/31/18 11:00 08/02/18 10:36 Zofran IV 4 mg Q4H PRN Administration Nausea And Vomiting Pantoprazole Sodium 40 mg 08/01/18 20:00 08/06/18 09:32 Protonix PO 40 mg QDAY TERA Administration Promethazine HCl 12.5 mg 08/01/18 12:30 08/01/18 12:46 Phenergan LA 12.5 mg Q6H PRN Administration Nausea And Vomiting Sodium Chloride 10 ml 07/31/18 22:00 08/06/18 22:57 Sodium Chloride Flush Syringe 10 Ml IV 10 ml BID TERA Administration Sodium Chloride 10 ml 07/31/18 11:00 Sodium Chloride Flush Syringe 10 Ml IV PRN PRN LINE FLUSH
--- NOTE | 2018-08-07 08:57 | Progress Note ---
Assessment and Plan Assessment and plan: --Bilateral pleural effusions;s/p Rt. thoracentesis Removal of 600 mL pleural fluid, analysis pending Pulmonary following, follow fluid analysis, cultures --Acute cystitis /urinary tract infection gram-negative rods Continue Rocephin and follow sensitivities --Hypertensive urgency; continue current antihypertensives Add hydralazine 25 3 times a day, when necessary hydralazine IV Closely monitor --Acute kidney injury; secondary to vasomotor nephropathy on chronic kidney disease stage II and underlying diabetic and hypertensive nephropathy, gentle hydration, nephrology following --Recent diagnosis of contrast-induced nephropathy --Intractable Nausea and vomiting ----Acute gastritis; status post EGD Continue PPI, advance diet as tolerated --HypoNatremia- resolved --Anemia of chronic disease --stable diastolic congestive heart failur --Diabetes mellitus with hyperglycemia --Obesity; BMI 39.6 --[id number] malnutrition/hypoalbuminemia --DVT prophylaxis --FULL CODE STATUS Plan of care reviewed with the patient, daughter at the bedside and his nurse Hospitalist Physical - Constitutional Vitals: Temp Pulse Resp BP Pulse Ox 98.3 F 89 20 158/81 96 08/07/18 07:25 08/07/18 08:47 08/07/18 07:25 08/07/18 08:47 08/07/18 07:25 General appearance: Present: no acute distress, well-nourished, obese (morbidly obese) Results - Labs CBC & Chem 7: 08/04/18 06:45 08/07/18 05:16 Labs: Laboratory Last Values WBC 10.9 K/mm3 (4.5-11.0) 08/04/18 06:45 RBC 3.47 M/mm3 (3.65-5.03) L 08/04/18 06:45 Hgb 8.8 gm/dl (10.1-14.3) L 08/04/18 06:45 Hct 26.6 % (30.3-42.9) L 08/04/18 06:45 MCV 77 fl (79-97) L 08/04/18 06:45 MCH 25 pg (28-32) L 08/04/18 06:45 MCHC 33 % (30-34) 08/04/18 06:45 RDW 19.7 % (13.2-15.2) H 08/04/18 06:45 Plt Count 352 K/mm3 (140-440) 08/04/18 06:45 Lymph % (Auto) 6.7 % (13.4-35.0) L 08/04/18 06:45 [place] % (Auto) 6.7 % (0.0-7.3) 08/04/18 06:45 Eos % (Auto) 0.3 % (0.0-4.3) 08/04/18 06:45 Baso % (Auto) 0.3 % (0.0-1.8) 08/04/18 06:45 Lymph # 0.7 K/mm3 (1.2-5.4) L 08/04/18 06:45 [place] # 0.7 K/mm3 (0.0-0.8) 08/04/18 06:45 Eos # 0.0 K/mm3 (0.0-0.4) 08/04/18 06:45 Baso # 0.0 K/mm3 (0.0-0.1) 08/04/18 06:45 Seg Neutrophils % 86.0 % (40.0-70.0) H 08/04/18 06:45 Seg Neutrophils # 9.4 K/mm3 (1.8-7.7) H 08/04/18 06:45 PT 15.4 Sec. (12.2-14.9) H 08/02/18 20:51 INR 1.15 (0.87-1.13) H 08/02/18 20:51 POC ABG pH 7.318 (7.35-7.45) L 08/06/18 16:55 POC ABG pCO2 36.8 (35-45) 08/06/18 16:55 POC ABG HCO3 18.8 (22-26 mml/L) 08/06/18 16:55 POC ABG Total CO2 20 (23-27mmol/L) 08/06/18 16:55 POC ABG O2 Sat 72 08/06/18 16:55 POC ABG Base Excess -7 ((-2) - (+3)mmol/L) 08/06/18 16:55 21 % 08/06/18 16:55 Sodium 139 mmol/L (137-145) 08/07/18 05:16 Potassium 4.3 mmol/L (3.6-5.0) 08/07/18 05:16 Chloride 106.5 mmol/L (98-107) 08/07/18 05:16 Carbon Dioxide 21 mmol/L (22-30) L 08/07/18 05:16 16 mmol/L 08/07/18 05:16 BUN 31 mg/dL (7-17) H 08/07/18 05:16 2.5 mg/dL (0.7-1.2) H 08/07/18 05:16 Estimated GFR 19 ml/min 08/07/18 05:16 12 % 08/07/18 05:16 Glucose 160 mg/dL (65-100) H 08/07/18 05:16 POC Glucose 177 (70-105) H 08/07/18 06:19 306 Mosm/kg 07/31/18 12:31 Calcium 8.0 mg/dL (8.4-10.2) L 08/07/18 05:16 Phosphorus 3.80 mg/dL (2.5-4.5) 08/03/18 05:04 Magnesium 1.70 mg/dL (1.7-2.3) 08/05/18 05:10 0.20 mg/dL (0.1-1.2) 08/02/18 20:51 < 0.2 mg/dL (0-0.2) 07/31/18 15:07 0.1 mg/dL 07/31/18 15:07 AST 37 units/L (5-40) 08/02/18 20:51 ALT 65 units/L (7-56) H 08/02/18 20:51 105 units/L (35-129) 08/02/18 20:51 215 units/L (91-180) H 08/02/18 20:51 7.1 g/dL (6.3-8.2) 08/02/18 20:51 3.4 g/dL (3.9-5) L 08/02/18 20:51 0.9 % 08/02/18 20:51 34 units/L (13-60) 07/31/18 07:30 Yellow (Yellow) 07/31/18 07:58 Cloudy (Clear) 07/31/18 07:58 5.0 (5.0-7.0) 07/31/18 07:58 Ur Specific [place] 1.011 (1.003-1.030) 07/31/18 07:58 100 mg/dl mg/dL (Negative) 07/31/18 07:58 Neg mg/dL (Negative) 07/31/18 07:58 Neg mg/dL (Negative) 07/31/18 07:58 Neg (Negative) 07/31/18 07:58 Neg (Negative) 07/31/18 07:58 Neg (Negative) 07/31/18 07:58 < 2.0 mg/dL (<2.0) 07/31/18 07:58 Ur Leukocyte Esterase Lg (Negative) 07/31/18 07:58 > 182.0 /HPF (0.0-6.0) H 07/31/18 07:58 12.0 /HPF (0.0-6.0) 07/31/18 07:58 U Epithel Cells (Auto) 1.0 /HPF (0-13.0) 07/31/18 07:58 2+ /HPF (Negative) 07/31/18 07:58 3+ /HPF 07/31/18 07:58 Few /HPF 07/31/18 07:58 3+ /HPF 07/31/18 07:58 268 Mosm/kg 07/31/18 Unknown 108.9 mg/dL (0.1-20.0) H 07/31/18 Unknown Protein/Creatinin Ratio 1.54 07/31/18 Unknown 43 mmol/L 08/01/18 14:48 168 mg/dL (5-11.8) H 07/31/18 Unknown Hepatitis A IgM Ab Non-reactive (NonReactive) 08/01/18 09:36 Hep Bs Antigen Non-reactive (Negative) 08/01/18 09:36 Hep B Core IgM Ab Non-reactive (NonReactive) 08/01/18 09:36 Non-reactive (NonReactive) 08/01/18 09:36 Active Medications - Current Medications Current Medications: Generic Name Dose Route Start Last Admin Trade Name Freq PRN Reason Stop Dose Admin Acetaminophen 650 mg 07/31/18 11:00 08/02/18 19:55 Tylenol PO 650 mg Q4H PRN Administration Pain MILD(1-3)/Fever >100.5/CASTELLANOS Albuterol 2.5 mg 07/31/18 11:00 Proventil IH Q3HRT PRN Shortness Of Breath Albuterol/Ipratropium 1 ampul 08/03/18 20:00 08/06/18 19:26 Duoneb *Not For Prn Use* IH 1 ampul TIDRT TERA Administration Amlodipine Besylate 10 mg 08/02/18 12:00 08/06/18 09:32 Norvasc PO 10 mg QDAY TERA Administration Dextrose 50 ml 07/31/18 11:05 D50w (25gm) Syringe IV PRN PRN Hypoglycemia Dicyclomine HCl 10 mg 07/31/18 19:02 Bentyl PO QID PRN Nausea And Vomiting Hydralazine HCl 10 mg 08/01/18 09:19 08/04/18 03:53 Apresoline IV 10 mg Q4H PRN Administration SBP>160 OR DBP>105 Hydralazine HCl 25 mg 08/03/18 14:00 08/07/18 06:39 Apresoline PO 25 mg Q8HR TERA Administration Ceftriaxone Sodium 1 gm in 50 mls @ 100 mls/hr 07/31/18 12:00 08/06/18 10:59 Rocephin/Ns 1 Gm/50 Ml IV Infused Q24HR TERA Infusion Protocol Insulin Human Lispro 0 unit 08/07/18 11:30 Humalog SUB-Q ACHS [facility] Protocol Metoclopramide HCl 10 mg 08/02/18 14:10 08/02/18 14:52 Reglan IV 10 mg Q6H PRN Administration Nausea And Vomiting Morphine Sulfate 2 mg 07/31/18 11:01 08/02/18 03:40 Morphine IV 2 mg Q4H PRN Administration Pain, Moderate (4-6) Ondansetron HCl 4 mg 07/31/18 11:00 08/02/18 10:36 Zofran IV 4 mg Q4H PRN Administration Nausea And Vomiting Pantoprazole Sodium 40 mg 08/01/18 20:00 08/06/18 09:32 Protonix PO 40 mg QDAY TERA Administration Promethazine HCl 12.5 mg 08/01/18 12:30 08/01/18 12:46 Phenergan PA 12.5 mg Q6H PRN Administration Nausea And Vomiting Sodium Chloride 10 ml 07/31/18 22:00 08/06/18 22:57 Sodium Chloride Flush Syringe 10 Ml IV 10 ml BID TERA Administration Sodium Chloride 10 ml 07/31/18 11:00 Sodium Chloride Flush Syringe 10 Ml IV PRN PRN LINE FLUSH
[2018-08-07] MEDS: DUONEB *Not for PRN Use IH SCH (09:14)
[2018-08-07] MEDS: NORVASC PO SCH (09:33)
[2018-08-07] MEDS: PROTONIX PO SCH (09:33)
[2018-08-07] MEDS: ROCEPHIN/NS 1 GM/50 ML 1 GM/50 ML BAG IV SCH (09:33)
[2018-08-07] MEDS: SODIUM CHLORIDE FLUSH SYRINGE 10 ML IV SCH (09:34)
[2018-08-07 09:58] LABS: LDH,Body Fluid 56; Total Protein,Body Fluid < 3.0 (15.0-45.0)
[2018-08-07] MEDS ORDERED: HumaLOG SUB-Q SCH (11:30)
[2018-08-07 13:40] VITALS: BP 144/71
--- NOTE | 2018-08-07 14:40 | Discharge Summary ---
Providers - Providers Date of Admission: 07/31/18 10:56 Date of discharge: 08/07/18 Attending physician: PIERRE SCHMITT 07/31/18 14:31 Consult to Physician [CONS] Routine Comment: JUSTO Consulting Provider: STACY HERNANDEZ Physician Instructions: JAYLYN WAS NOTIFIED. Reason For Exam: FLORIDALMA 08/01/18 10:49 Consult to Physician [CONS] Routine Comment: JUSTO Consulting Provider: PETERSON IVLLANUEVA Physician Instructions: CONSULT WAS CALLED TO /RAGHU Reason For Exam: persistant nausea and vomiting. ?recent GI bleed 08/02/18 07:24 Consult to Physician [CONS] Routine Comment: Consulting Provider: RODRIGUEZ SALEH Physician Instructions: Reason For Exam: clearance for EGD, pleural effusion 08/04/18 19:53 Physical Therapy Evaluation and Treat [CONS] Routine Comment: Reason For Exam: gen debility/evaln for home PT Primary care physician: [facility], Hospitalization Reason for admission: Epigastric and abdominal pain /intractable nausea vomiting Condition: Fair Pertinent studies: CT abdomen and pelvis Renal ultrasound Chest x-ray Echocardiogram Procedures: ;s/p Rt. thoracentesis Removal of 600 mL pleural fluid, s/p EGD :antral and body gastritis, thickened mucosa s/p biopsy Hospital course: 73-year-old female with past medical history of hypertension, GERD, diastolic congestive heart failure, diabetes mellitus, acute kidney injury with an unknown baseline but appears to have a CK D recent hospitalization at [facility] with a creatinine of 1.6, pulmonary edema with a recent contrast-induced nephropathy. discharge from the hospital when she was seen on the . She presents to the hospital complaining of abdominal pain epigastric in nature with associated nausea vomiting worsening to the early hours of this morning. Based on around 8 PM. She was admitted with her in intensity. At the hospital the pain has subsided somewhat but still present. Patient was noted to have significantly normal kidney function numbers. She also has been unable to keep any food down. She was symptomatically managed, Evaluated by GI, underwent EGD and biopsies as mentioned above Patient was also noted to have bilateral pleural effusion right more than left, underwent ultrasound-guided thoracentesis and removal of the pleural fluid Fluid analysis so far is negative, pending results will be followed by school psychologist upon follow-up visit Patient is a physical therapy, very hypoxic , need for home oxygen evaluation was done patient needed 3-4 L of nasal cannula oxygen Patient also advised to follow with school psychologist for outpatient sleep study, and pulmonary function tests Renal function significantly improved however still elevated creatinine, advised to follow with car body inspector for further evaluation Today patient is hemodynamically and clinically stable for discharge Discharge diagnosis and management: --Bilateral pleural effusions;s/p Rt. thoracentesis Removal of 600 mL pleural fluid, analysis pending Pulmonary following, follow fluid analysis, cultures --Acute cystitis /urinary tract infection gram-negative rods Continue Rocephin and follow sensitivities --Hypertensive urgency; continue current antihypertensives Add hydralazine 25 3 times a day, when necessary hydralazine IV Closely monitor --Acute kidney injury; secondary to vasomotor nephropathy on chronic kidney disease stage II and underlying diabetic and hypertensive nephropathy, gentle hydration, nephrology following --Recent diagnosis of contrast-induced nephropathy --Intractable Nausea and vomiting ----Acute gastritis; status post EGD Continue PPI, advance diet as tolerated --HypoNatremia- resolved --Anemia of chronic disease --stable diastolic congestive heart failur --Diabetes mellitus with hyperglycemia --Obesity; BMI 39.6 --[id number] malnutrition/hypoalbuminemia Cleared by pulmonary, nephrology, GI for discharge and follow up with them in the office for scheduled Disposition: [id number] HOME UNDER HOME [facility] Time spent for discharge: 32 min Core Measure Documentation - Palliative Care Palliative Care/ Comfort Measures: Not Applicable - Core Measures Any of the following diagnoses?: none Exam - Constitutional Vitals: Temp Pulse Resp BP Pulse Ox 98.3 F 89 20 144/71 96 08/07/18 07:25 08/07/18 13:39 08/07/18 10:00 08/07/18 13:39 08/07/18 10:00 General appearance: Present: no acute distress, well-nourished, obese - EENT Eyes: Present: PERRL - Neck Neck: Present: supple, normal ROM - Respiratory Respiratory effort: normal Respiratory: bilateral: diminished, rhonchi, negative: rales, wheezing - Cardiovascular Rhythm: regular Heart Sounds: Present: S1 & S2 - Extremities Extremities: no ischemia, No edema - Abdominal General gastrointestinal: Present: soft, non-tender, non-distended, normal bowel sounds - Integumentary Integumentary: Present: clear, warm - Musculoskeletal Musculoskeletal: strength equal bilaterally - Psychiatric Psychiatric: appropriate mood/affect, cooperative - Neurologic Neurologic: moves all extremities Plan Activity: advance as tolerated, fall precautions Diet: diabetic Additional Instructions: Patient is being discharged with home oxygen 3 L continuous. Need outpatient sleep studies and pulmonary function tests at school psychologist office. Advise weight reduction when medically stable Follow up with: VENU MARTINEZ MD [Staff Physician] - 7 Days AMANDA HILLMAN MD [Staff Physician] - [address] [facility] MD DAYNE [Primary Care Provider] - 3-5 Days RALPH WEINER MD [Staff Physician] - 7 Days Prescriptions: Sucralfate [Carafate] 1 gm PO ACHS #30 tablet cefUROXime [Ceftin] 250 mg PO Q12H #20 tablet Ipratropium/Albuter (Nf) [Combivent (Nf)] 2 puff IH QID #1 inha glipiZIDE [Glucotrol] 5 mg PO BID #60 tablet ALBUTEROL Inhaler (OR & NICU) [ProAir HFA Inhaler] 2 puff IH QID PRN #1 inhalation PRN Reason: Shortness Of Breath
== END 2018-08-07 15:55 | disposition home health service (06) | DRG 682 ==
LOC: ED 06:57 → 2B-ACE 10:56
PROVIDERS: ADMIT Internal Medicine; ATTEND Internal Medicine
PROC: 0DB78ZX Excision of Stomach, Pylorus, Via Natural or Artificial Opening Endoscopic, Diagnostic (ICD-10-PCS; 2018-08-02)
PROC: 0W993ZZ Drainage of Right Pleural Cavity, Percutaneous Approach (ICD-10-PCS; 2018-08-03)
PROC: 4A033R1 Measurement of Arterial Saturation, Peripheral, Percutaneous Approach (ICD-10-PCS; principal; 2018-08-06)
DX: N17.0 Acute kidney failure with tubular necrosis (principal); K65.9 Peritonitis, unspecified; J96.01 Acute respiratory failure with hypoxia; E87.1 Hypo-osmolality and hyponatremia; E44.0 Moderate protein-calorie malnutrition; N30.01 Acute cystitis with hematuria; I50.32 Chronic diastolic (congestive) heart failure; I13.0 Hypertensive heart and chronic kidney disease with heart failure and stage 1 through stage 4 chronic kidney disease, or unspecified chronic kidney disease; J91.8 Pleural effusion in other conditions classified elsewhere; N18.4 Chronic kidney disease, stage 4 (severe); K29.00 Acute gastritis without bleeding; R11.2 Nausea with vomiting, unspecified; E11.22 Type 2 diabetes mellitus with diabetic chronic kidney disease; I16.0 Hypertensive urgency; K21.9 Gastro-esophageal reflux disease without esophagitis; K52.9 Noninfective gastroenteritis and colitis, unspecified; E86.0 Dehydration; E78.5 Hyperlipidemia, unspecified; D63.8 Anemia in other chronic diseases classified elsewhere; E11.65 Type 2 diabetes mellitus with hyperglycemia; K57.30 Diverticulosis of large intestine without perforation or abscess without bleeding; N28.1 Cyst of kidney, acquired; I27.20 Pulmonary hypertension, unspecified; E66.01 Morbid (severe) obesity due to excess calories; Z90.49 Acquired absence of other specified parts of digestive tract; Z68.39 Body mass index [BMI] 39.0-39.9, adult
CPT/HCPCS: 32555; 36415; 36600; 71045; 71046; 74176; 76770; 80048; 80053; 80074; 80076; 81001; 82570; 82803; 82962; 83605; 83615; 83690; 83735; 83930; 83935; 84100; 84156; 84160; 84300; 85025; 85027; 85610; 87076; 87086; 87116; 87186; 88112; 88305; 88341; 88342; 93306; 94640; 94760; 96374; 96375; G0378; J0360; J0696; J1170; J1815; J2250; J2270; J2405; J2704; J2765; J2930; J7030; J7040; J7042

== ENCOUNTER 2018-08-09 22:01 | Observation (INO) | payer MEDICARE ==
--- NOTE | 2018-08-09 22:20 | Emergency Department Report ---
HPI - General Time Seen by Provider: 08/09/18 22:07 - HPI HPI: Room 22 The patient is a 73-year-old female presented with a chief complaint of hypoglycemia. The patient has a history of diabetes and states she took her glipizide at 10:00 this morning. For breakfast the patient had eggs and soup. The patient didn't eat anything else until 16:00 when she had some vegetables and soup. Family states the proximal one hour prior to arrival the patient's face looked "weird" and the patient was unable to talk or walk. Family checked her glucose and it was 37. EMS was called.. In the ED the patient states when her blood sugar was low she felt heavy all over but now she feels improved. Patient currently denies complaints Location: [See above] Duration: [See above] Quality: [See above] Severity: [See above] Modifying factors: [see above] Context: [see above] Mode of transportation: [not driving] ED Past Medical Hx - Past Medical History Previous Medical History?: Yes Hx Hypertension: Yes Hx Congestive Heart Failure: Yes Hx Diabetes: Yes Hx GERD: Yes Additional medical history: Home O2 3-4 L - Surgical History Past Surgical History?: No - Family History Family history: no significant - Social History Smoking Status: Never Smoker Substance Use Type: None - Medications Home Medications: Home Medications Medication Instructions Recorded Confirmed Last Taken Type Furosemide [Lasix TAB] 20 mg PO QDAY 07/31/18 07/31/18 Unknown History HYDROcodone/APAP 5-325 [[place] 1 each PO Q4HR PRN 07/31/18 07/31/18 Unknown History 5-325 mg TAB] Pantoprazole Sodium [Protonix] 40 mg PO DAILY 07/31/18 07/31/18 Unknown History Tamsulosin 0.4 mg PO HS 07/31/18 07/31/18 07/30/18 21:00 History amLODIPine [Norvasc] 10 mg PO DAILY 07/31/18 07/31/18 Unknown History hydrALAZINE [Apresoline TAB] 100 mg PO TID 07/31/18 07/31/18 Unknown History ALBUTEROL Inhaler (OR & NICU) 2 puff IH QID PRN #1 inhalation 08/07/18 Unknown Rx [ProAir HFA Inhaler] Ipratropium/Albuter (Nf) 2 puff IH QID #1 inha 08/07/18 Unknown Rx [Combivent (Nf)] Sucralfate [Carafate] 1 gm PO ACHS #30 tablet 08/07/18 Unknown Rx cefUROXime [Ceftin] 250 mg PO Q12H #20 tablet 08/07/18 Unknown Rx glipiZIDE [Glucotrol] 5 mg PO BID #60 tablet 08/07/18 Unknown Rx ED Review of Systems ROS: Stated complaint: LOW BLOOD SUGAR Other details as noted in HPI Constitutional: weakness Eyes: denies: eye pain ENT: denies: throat pain Respiratory: no symptoms reported Cardiovascular: denies: chest pain Endocrine: no symptoms reported Gastrointestinal: denies: abdominal pain Musculoskeletal: denies: back pain Neurological: confusion, other (difficulty speaking) Physical Exam - Physical Exam Physical Exam: GENERAL: The patient is well-developed well-nourished female lying on stretcher not appear to be in acute distress. [] HEENT: Normocephalic. Atraumatic. Extraocular motions are intact. Patient has moist mucous membranes. NECK: Supple. Trachea midline CHEST/LUNGS: Clear to auscultation. There is no respiratory distress noted. HEART/CARDIOVASCULAR: Regular. There is no tachycardia. There is no gallop rub or murmur. ABDOMEN: Abdomen is soft, nontender. Patient has normal bowel sounds. There is no abdominal distention. SKIN: There is no rash. There is no edema. There is no diaphoresis. NEURO: The patient is awake, alert, and oriented. The patient is cooperative. The patient has no focal neurologic deficits. The patient has normal speech. Cranial nerves II through XII grossly intact, no drift MUSCULOSKELETAL: There is no evidence of acute injury. ED Medical Decision Making - Lab Data Result diagrams: 08/09/18 22:57 08/09/18 22:57 Laboratory Tests 08/09/18 08/09/18 08/09/18 22:21 22:40 22:57 WBC 8.8 RBC 3.36 L Hgb 8.5 L Hct 26.4 L MCV 79 MCH 25 L MCHC 32 RDW 21.3 H Plt Count 282 Lymph % (Auto) 6.8 L [place] % (Auto) 6.4 Eos % (Auto) 2.1 Baso % (Auto) 0.2 Lymph # 0.6 L [place] # 0.6 Eos # 0.2 Baso # 0.0 Seg Neutrophils % 84.5 H Seg Neutrophils # 7.4 Sodium Potassium Chloride Carbon Dioxide Anion Gap BUN Creatinine Estimated GFR BUN/Creatinine Ratio Glucose POC Glucose 77 58 L Calcium Total Creatine Kinase CK-MB (CK-2) CK-MB (CK-2) Rel Index Troponin T 08/09/18 08/09/18 22:57 23:09 WBC RBC Hgb Hct MCV MCH MCHC RDW Plt Count Lymph % (Auto) [place] % (Auto) Eos % (Auto) Baso % (Auto) Lymph # [place] # Eos # Baso # Seg Neutrophils % Seg Neutrophils # Sodium 134 L Potassium 4.3 Chloride 102.7 Carbon Dioxide 19 L Anion Gap 17 BUN 29 H Creatinine 1.7 H Estimated GFR 29 BUN/Creatinine Ratio 17 Glucose 127 H POC Glucose 130 H Calcium 8.5 Total Creatine Kinase 52 CK-MB (CK-2) 3.6 CK-MB (CK-2) Rel Index 6.9 H Troponin T < 0.010 - EKG Data -: EKG Interpreted by Me EKG shows normal: sinus rhythm Rate: normal - EKG Data When compared to previous EKG there are: previous EKG unavailable Interpretation: nonspecific ST-T wave dee (T-wave inversion in lead 3, V3, V4) - Differential Diagnosis hypoglycemia Critical care attestation.: If time is entered above; I have spent that time in minutes in the direct care of this critically ill patient, excluding procedure time. ED Disposition Clinical Impression: Hypoglycemia secondary to sulfonylurea Disposition: OP ADMIT IP TO THIS HOSP Is pt being admited?: Yes Does the pt Need Aspirin: No Condition: Fair Time of Disposition: 23:52 (hospitalist paged (Dr. Gris Fox))
[2018-08-09] MEDS ORDERED: D50W (25GM) Syringe IV ONE (22:35)
[2018-08-09 23:23] LABS: Basophils % (Auto) 0.2 % (0.0-1.8); Eosinophils # (Auto) 0.2 K/mm3 (0.0-0.4); Eosinophils % (Auto) 2.1 % (0.0-4.3); Hematocrit 26.4 % (30.3-42.9); Hemoglobin 8.5 gm/dl (10.1-14.3); Lymphocytes # (Auto) 0.6 K/mm3 (1.2-5.4); Lymphocytes % (Auto) 6.8 % (13.4-35.0); Mean Corpuscular HGB Conc 32 % (30-34); Mean Corpuscular Volume 79 fl (79-97); Monocytes # (Auto) 0.6 K/mm3 (0.0-0.8); Monocytes % (Auto) 6.4 % (0.0-7.3); Platelet Count 282 K/mm3 (140-440); Red Blood Count 3.36 M/mm3 (3.65-5.03)
[2018-08-09 23:30] LABS: Red Cell Distribution Width 21.3 % (13.2-15.2)
[2018-08-09 23:45] LABS: Creatine Kinase MB 3.6 ng/mL (0.0-4.0)
[2018-08-09 23:47] LABS: BUN/Creatinine Ratio 17; Blood Urea Nitrogen 29 mg/dL (7-17); Calcium 8.5 mg/dL (8.4-10.2); Hemolysis Index 5
[2018-08-10] MEDS ORDERED: SODIUM CHLORIDE FLUSH SYRINGE 10 ML IV PRN (00:14)
[2018-08-10] MEDS ORDERED: D50W (25GM) Syringe IV PRN (00:14)
[2018-08-10] MEDS ORDERED: PROVENTIL IH PRN (00:14)
[2018-08-10] MEDS ORDERED: ZOFRAN IV PRN (00:14)
[2018-08-10] MEDS ORDERED: TYLENOL PO PRN (00:14)
--- NOTE | 2018-08-10 00:49 | History and Physical Report ---
<OSCAR LEBRON - Last Filed: 08/10/18 01:14> History of Present Illness Date of examination: 08/10/18 Date of admission: 08/10/18 00:14 Chief complaint: Hypoglycemia History of present illness: 73-year-old [place]ruguayan-speaking female with history of chronic respiratory failure on 3-4L continuous supplemental oxygen, hypertension, GERD, heart failure, diabetes, CKD, pulmonary edema, contrast-induced nephropathy, bilateral pleural effusions status post therapeutic thoracentesis on 08/03/18, presents to [facility] ED via EMS with complaints of hypoglycemia. Vision is daughter is at bedside and patient has requested that her daughter translates. According to patient's daughter around 5:30 PM yesterday patient had a "weird look" on her face and was unable to talk or ambulate. The daughter checked her patient's blood sugar and it was 37. EMS was called and patient was transferred to a facility for further evaluation and treatment. Daughter states that mom had breakfast which consisted of 2 eggs, soup and a fruit drink. Patient did not have lunch but "picked on things" throughout the day. Patient had dinner around 4 PM which consisted of vegetables, lentil soup, and water to drink. Since arriving to our facility patient states that her symptoms have resolved. A review of medical records shows pt was recently discharges on 08/07/18. She was treated for acute respiratory failure, bilateral pleural effusions R>L, acute cystitis, HTN urgency, FLORIDALMA, hyperglycemia, hyponatremia, and anemia of chronic disease. 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 She was discharged with home oxygen. Denies decreased appetite, poor oral intake, headache, nausea, diaphoresis, chest pain, dyspnea, cough, hemoptysis, or fever Past History Past Medical History: anemia, diabetes, GERD ( GERD), heart failure, hypertension, other (CKD, pulmonary edema, contrast-induced nephropathy, bilateral pleural effusions s/p thoracentesis on 08/03/18, chronic respiratory failure on home oxygen) Past Surgical History: No surgical history Social history: lives with family Family history: no significant family history Medications and Allergies Allergies Allergy/AdvReac Type Severity Reaction Status Date / Time No Known Allergies Allergy Verified 07/31/18 07:06 Home Medications Medication Instructions Recorded Confirmed Last Taken Type Furosemide [Lasix TAB] 20 mg PO QDAY 07/31/18 08/10/18 08/09/18 History HYDROcodone/APAP 5-325 [[facility] 1 each PO Q4HR PRN 07/31/18 08/10/18 Unknown History 5-325 mg TAB] Pantoprazole Sodium [Protonix] 40 mg PO DAILY 07/31/18 08/10/18 08/09/18 History Tamsulosin 0.4 mg PO HS 07/31/18 08/10/18 08/09/18 History amLODIPine [Norvasc] 10 mg PO DAILY 07/31/18 08/10/18 08/09/18 History hydrALAZINE [Apresoline TAB] 100 mg PO TID 07/31/18 08/10/18 08/09/18 History ALBUTEROL Inhaler (OR & NICU) 2 puff IH QID PRN #1 inhalation 08/07/18 08/10/18 Unknown Rx [ProAir HFA Inhaler] Ipratropium/Albuter (Nf) 2 puff IH QID #1 inha 08/07/18 08/10/18 Unknown Rx [Combivent (Nf)] Sucralfate [Carafate] 1 gm PO ACHS #30 tablet 08/07/18 08/10/18 08/09/18 Rx cefUROXime [Ceftin] 250 mg PO Q12H #20 tablet 08/07/18 08/10/18 08/09/18 Rx glipiZIDE [Glucotrol] 5 mg PO BID #60 tablet 08/07/18 08/10/18 08/09/18 Rx Active Meds: Active Medications Acetaminophen (Tylenol) 650 mg PO Q4H PRN PRN Reason: Pain MILD(1-3)/Fever >100.5/CASTELLANOS Albuterol (Proventil) 2.5 mg IH Q4HRT PRN PRN Reason: Shortness Of Breath Amlodipine Besylate (Norvasc) 10 mg PO DAILY TERA Dextrose (D50w (25gm) Syringe) 50 ml IV PRN PRN PRN Reason: Hypoglycemia Docusate Sodium (Colace) 100 mg PO BID TERA Hydralazine HCl (Apresoline) 100 mg PO TID TERA Ondansetron HCl (Zofran) 4 mg IV Q8H PRN PRN Reason: Nausea And Vomiting Pantoprazole Sodium (Protonix) 40 mg PO DAILY TERA Sodium Chloride (Sodium Chloride Flush Syringe 10 Ml) 10 ml IV BID TERA Sodium Chloride (Sodium Chloride Flush Syringe 10 Ml) 10 ml IV PRN PRN PRN Reason: LINE FLUSH Sucralfate (Carafate) 1 gm PO ACHS TERA Review of Systems All systems: negative (reviewed and no additional remarkable complaints except as noted below) Endocrine: fatigue, other (unable to ambulate, unable to walk which has now been resolved) Exam - Physical Exam Narrative exam: Physical exam General appearance: Present: No acute distress, [place]ayan-speaking older adult female, alert and oriented 3 - EENT Eyes: Present: PERRL, EOM intact ENT: hearing intact, normal dentition - Neck Neck: Present: supple, normal ROM - Respiratory Respiratory effort: Non-labored Respiratory: bilateral: diminished (bases), on 3 L supplemental oxygen - Cardiovascular Heart rate: 78 (bpm) Rhythm: Sinus rhythm regular Heart Sounds: Present: S1 & S2. Absent: rub, click - Extremities Extremities: no ischemia, pulses intact, abnormal (bilateral lower extremity trace edema) - Peripheral Assessment Peripheral Pulses: within normal limits - Abdominal General gastrointestinal: soft, non-tender, normal bowel sounds - Integumentary Integumentary: Present: warm, dry - Musculoskeletal Musculoskeletal: generalized weakness -Neurological Neurological: CNII-XII intact - Psychiatric Psychiatric: Appropriate for situation, cooperative - Constitutional Vitals: Temp Pulse Resp BP Pulse Ox 98.6 F 72 16 187/93 97 08/09/18 22:12 08/10/18 00:16 08/10/18 00:16 08/10/18 00:16 08/10/18 00:16 Results - Labs CBC & Chem 7: 08/09/18 22:57 08/09/18 22:57 Labs: Laboratory Last Values WBC 8.8 K/mm3 (4.5-11.0) 08/09/18 22:57 RBC 3.36 M/mm3 (3.65-5.03) L 08/09/18 22:57 Hgb 8.5 gm/dl (10.1-14.3) L 08/09/18 22:57 Hct 26.4 % (30.3-42.9) L 08/09/18 22:57 MCV 79 fl (79-97) 08/09/18 22:57 MCH 25 pg (28-32) L 08/09/18 22:57 MCHC 32 % (30-34) 08/09/18 22:57 RDW 21.3 % (13.2-15.2) H 08/09/18 22:57 Plt Count 282 K/mm3 (140-440) 08/09/18 22:57 Lymph % (Auto) 6.8 % (13.4-35.0) L 08/09/18 22:57 [place] % (Auto) 6.4 % (0.0-7.3) 08/09/18 22:57 Eos % (Auto) 2.1 % (0.0-4.3) 08/09/18 22:57 Baso % (Auto) 0.2 % (0.0-1.8) 08/09/18 22:57 Lymph # 0.6 K/mm3 (1.2-5.4) L 08/09/18 22:57 [place] # 0.6 K/mm3 (0.0-0.8) 08/09/18 22:57 Eos # 0.2 K/mm3 (0.0-0.4) 08/09/18 22:57 Baso # 0.0 K/mm3 (0.0-0.1) 08/09/18 22:57 Seg Neutrophils % 84.5 % (40.0-70.0) H 08/09/18 22:57 Seg Neutrophils # 7.4 K/mm3 (1.8-7.7) 08/09/18 22:57 Sodium 134 mmol/L (137-145) L 08/09/18 22:57 Potassium 4.3 mmol/L (3.6-5.0) 08/09/18 22:57 Chloride 102.7 mmol/L (98-107) 08/09/18 22:57 Carbon Dioxide 19 mmol/L (22-30) L 08/09/18 22:57 17 mmol/L 08/09/18 22:57 BUN 29 mg/dL (7-17) H 08/09/18 22:57 1.7 mg/dL (0.7-1.2) H 08/09/18 22:57 Estimated GFR 29 ml/min 08/09/18 22:57 17 % 08/09/18 22:57 Glucose 127 mg/dL (65-100) H 08/09/18 22:57 POC Glucose 70 (70-105) 08/09/18 23:57 Calcium 8.5 mg/dL (8.4-10.2) 08/09/18 22:57 52 units/L (30-135) 08/09/18 22:57 CK-MB (CK-2) 3.6 ng/mL (0.0-4.0) 08/09/18 22:57 CK-MB (CK-2) Rel Index 6.9 (0-4) H 08/09/18 22:57 < 0.010 ng/mL (0.00-0.029) 08/09/18 22:57 Short CBC 08/09/18 08/09/18 08/09/18 Range/Units 22:21 22:40 22:57 WBC 8.8 (4.5-11.0) K/mm3 RBC 3.36 L (3.65-5.03) M/mm3 Hgb 8.5 L (10.1-14.3) gm/dl Hct 26.4 L (30.3-42.9) % MCV 79 (79-97) fl MCH 25 L (28-32) pg MCHC 32 (30-34) % RDW 21.3 H (13.2-15.2) % Plt Count 282 (140-440) K/mm3 Lymph % (Auto) 6.8 L (13.4-35.0) % [place] % (Auto) 6.4 (0.0-7.3) % Eos % (Auto) 2.1 (0.0-4.3) % Baso % (Auto) 0.2 (0.0-1.8) % Lymph # 0.6 L (1.2-5.4) K/mm3 [place] # 0.6 (0.0-0.8) K/mm3 Eos # 0.2 (0.0-0.4) K/mm3 Baso # 0.0 (0.0-0.1) K/mm3 Seg Neutrophils % 84.5 H (40.0-70.0) % Seg Neutrophils # 7.4 (1.8-7.7) K/mm3 Sodium (137-145) mmol/L Potassium (3.6-5.0) mmol/L Chloride (98-107) mmol/L Carbon Dioxide (22-30) mmol/L Anion Gap mmol/L BUN (7-17) mg/dL Creatinine (0.7-1.2) mg/dL Estimated GFR ml/min BUN/Creatinine Ratio % Glucose (65-100) mg/dL POC Glucose 77 58 L (70-105) Calcium (8.4-10.2) mg/dL Total Creatine Kinase (30-135) units/L CK-MB (CK-2) (0.0-4.0) ng/mL CK-MB (CK-2) Rel Index (0-4) Troponin T (0.00-0.029) ng/mL 08/09/18 08/09/18 08/09/18 Range/Units 22:57 23:09 23:57 WBC (4.5-11.0) K/mm3 RBC (3.65-5.03) M/mm3 Hgb (10.1-14.3) gm/dl Hct (30.3-42.9) % MCV (79-97) fl MCH (28-32) pg MCHC (30-34) % RDW (13.2-15.2) % Plt Count (140-440) K/mm3 Lymph % (Auto) (13.4-35.0) % [place] % (Auto) (0.0-7.3) % Eos % (Auto) (0.0-4.3) % Baso % (Auto) (0.0-1.8) % Lymph # (1.2-5.4) K/mm3 [place] # (0.0-0.8) K/mm3 Eos # (0.0-0.4) K/mm3 Baso # (0.0-0.1) K/mm3 Seg Neutrophils % (40.0-70.0) % Seg Neutrophils # (1.8-7.7) K/mm3 Sodium 134 L (137-145) mmol/L Potassium 4.3 (3.6-5.0) mmol/L Chloride 102.7 (98-107) mmol/L Carbon Dioxide 19 L (22-30) mmol/L Anion Gap 17 mmol/L BUN 29 H (7-17) mg/dL Creatinine 1.7 H (0.7-1.2) mg/dL Estimated GFR 29 ml/min BUN/Creatinine Ratio 17 % Glucose 127 H (65-100) mg/dL POC Glucose 130 H 70 (70-105) Calcium 8.5 (8.4-10.2) mg/dL Total Creatine Kinase 52 (30-135) units/L CK-MB (CK-2) 3.6 (0.0-4.0) ng/mL CK-MB (CK-2) Rel Index 6.9 H (0-4) Troponin T < 0.010 (0.00-0.029) ng/mL BMP 08/09/18 22:57 Sodium 134 L Potassium 4.3 Chloride 102.7 Carbon Dioxide 19 L BUN 29 H Creatinine 1.7 H Glucose 127 H Calcium 8.5 Cardiac Enzymes 08/09/18 Range/Units 22:57 Total Creatine Kinase 52 (30-135) units/L CK-MB (CK-2) 3.6 (0.0-4.0) ng/mL Troponin T < 0.010 (0.00-0.029) ng/mL - Imaging and Cardiology EKG: image reviewed (70 bpm sinus rhythm) Assessment and Plan Assessment and plan: 73-year-old [place]ayan-speaking female with history of chronic respiratory failure on 3-4L continuous supplemental oxygen, hypertension, GERD, heart failure, diabetes, CKD, pulmonary edema, contrast-induced nephropathy, bilateral pleural effusions status post therapeutic thoracentesis on 08/03/18, presents to [facility] ED via EMS with complaints of hypoglycemia. Initial BG on arrival was 58 she was given an amp D50, cup of juice, and wilder crackers. Her BG improved to 130 for a short period, and then dropped to 70. Will admit to [facility]. Hypoglycemia- likely secondary to glipizide DM2 HTN Urgency Hyponatremia Chronic hypoxic respiratory failure GERD CHF CKD3 Hx of bilateral pleural effusions s/p thoracentesis 08/03 Plan: Continue supportive care Q1hr POC BG monitoring Hypoglycemic protocol Hold glipizide for now; may benefit from another class of oral antihyperglycemic medication Monitor I&O's Monitor BP Resume home antihypertensive medication IV hydralazine when necessary Continue supplemental oxygen Monitor saturation Monitor electrolytes Na 134 monitor for now Continue Protonix 40mg daily DVT PPX on Heaparin and SCD's This patient was seen in conjunction with Dr. Luke Fox. Advance Directives: No VTE prophylaxis?: Chemical Plan of care discussed with patient/family: Yes <JOSE JUAN FOX - Last Filed: 08/10/18 04:54> History of Present Illness Date of admission: 08/10/18 00:14 Medications and Allergies Active Meds: Active Medications Acetaminophen (Tylenol) 650 mg PO Q4H PRN PRN Reason: Pain MILD(1-3)/Fever >100.5/CASTELLANOS Albuterol (Proventil) 2.5 mg IH Q4HRT PRN PRN Reason: Shortness Of Breath Amlodipine Besylate (Norvasc) 10 mg PO DAILY TERA Dextrose (D50w (25gm) Syringe) 50 ml IV PRN PRN PRN Reason: Hypoglycemia Last Admin: 08/10/18 00:51 Dose: 50 ml Documented by: Docusate Sodium (Colace) 100 mg PO BID TERA Heparin Sodium (Porcine) (Heparin) 5,000 unit SUB-Q Q12HR TERA Hydralazine HCl (Apresoline) 100 mg PO TID TERA Hydralazine HCl (Apresoline) 10 mg IV Q4HR PRN PRN Reason: Blood Pressure Ondansetron HCl (Zofran) 4 mg IV Q8H PRN PRN Reason: Nausea And Vomiting Pantoprazole Sodium (Protonix) 40 mg PO DAILY TERA Sodium Chloride (Sodium Chloride Flush Syringe 10 Ml) 10 ml IV BID TERA Sodium Chloride (Sodium Chloride Flush Syringe 10 Ml) 10 ml IV PRN PRN PRN Reason: LINE FLUSH Sucralfate (Carafate) 1 gm PO ACHS [facility] Exam - Constitutional Vitals: Temp Pulse Resp BP Pulse Ox 98.8 F 68 18 156/62 99 08/10/18 04:00 08/10/18 04:00 08/10/18 04:32 08/10/18 04:00 08/10/18 04:00 Results - Labs CBC & Chem 7: 08/09/18 22:57 08/09/18 22:57 Labs: Laboratory Last Values WBC 8.8 K/mm3 (4.5-11.0) 08/09/18 22:57 RBC 3.36 M/mm3 (3.65-5.03) L 08/09/18 22:57 Hgb 8.5 gm/dl (10.1-14.3) L 08/09/18 22:57 Hct 26.4 % (30.3-42.9) L 08/09/18 22:57 MCV 79 fl (79-97) 08/09/18 22:57 MCH 25 pg (28-32) L 08/09/18 22:57 MCHC 32 % (30-34) 08/09/18 22:57 RDW 21.3 % (13.2-15.2) H 08/09/18 22:57 Plt Count 282 K/mm3 (140-440) 08/09/18 22:57 Lymph % (Auto) 6.8 % (13.4-35.0) L 08/09/18 22:57 [place] % (Auto) 6.4 % (0.0-7.3) 08/09/18 22:57 Eos % (Auto) 2.1 % (0.0-4.3) 08/09/18 22:57 Baso % (Auto) 0.2 % (0.0-1.8) 08/09/18 22:57 Lymph # 0.6 K/mm3 (1.2-5.4) L 08/09/18 22:57 [place] # 0.6 K/mm3 (0.0-0.8) 08/09/18 22:57 Eos # 0.2 K/mm3 (0.0-0.4) 08/09/18 22:57 Baso # 0.0 K/mm3 (0.0-0.1) 08/09/18 22:57 Seg Neutrophils % 84.5 % (40.0-70.0) H 08/09/18 22:57 Seg Neutrophils # 7.4 K/mm3 (1.8-7.7) 08/09/18 22:57 Sodium 134 mmol/L (137-145) L 08/09/18 22:57 Potassium 4.3 mmol/L (3.6-5.0) 08/09/18 22:57 Chloride 102.7 mmol/L (98-107) 08/09/18 22:57 Carbon Dioxide 19 mmol/L (22-30) L 08/09/18 22:57 17 mmol/L 08/09/18 22:57 BUN 29 mg/dL (7-17) H 08/09/18 22:57 1.7 mg/dL (0.7-1.2) H 08/09/18 22:57 Estimated GFR 29 ml/min 08/09/18 22:57 17 % 08/09/18 22:57 Glucose 127 mg/dL (65-100) H 08/09/18 22:57 POC Glucose 74 (70-105) 08/10/18 04:09 6.1 % (4-6) H 08/10/18 00:44 Calcium 8.5 mg/dL (8.4-10.2) 08/09/18 22:57 52 units/L (30-135) 08/09/18 22:57 CK-MB (CK-2) 3.6 ng/mL (0.0-4.0) 08/09/18 22:57 CK-MB (CK-2) Rel Index 6.9 (0-4) H 08/09/18 22:57 < 0.010 ng/mL (0.00-0.029) 08/09/18 22:57 Assessment and Plan Assessment and plan: 73 -year-old with a history of diabetes, on oral agents, decrease oral intake, hypertension, GERD, CHF, chronic kidney disease was brought to the emergency room for hypo-glycemia. Her blood sugars drop twice in the emergency room, admitted with every hour blood sugar check, supplement with D50, check cardiac enzymes, UA. Agree with other plan as stated above. Patient seen and examined, d/w RELISH BLENDER
[2018-08-10] MEDS ORDERED: D50W (25GM) Syringe IV ONE (00:50)
[2018-08-10] MEDS ORDERED: APRESOLINE IV PRN (00:57)
[2018-08-10 06:34] LABS: Creatine Kinase MB 3.7 ng/mL (0.0-4.0)
[2018-08-10] MEDS ORDERED: HumuLIN R SUB-Q SCH (07:30)
[2018-08-10] MEDS: CARAFATE PO SCH ×4 (08:55→22:05)
[2018-08-10] MEDS: APRESOLINE PO SCH ×3 (08:55→20:06)
[2018-08-10] MEDS ORDERED: NON-FORMULARY (Pantoprazole Sodium [Protonix] 40 MG) PO SCH (10:00)
[2018-08-10] MEDS: HEPARIN SUB-Q SCH ×2 (10:26→22:05)
[2018-08-10] MEDS: COLACE PO SCH ×2 (10:26→22:05)
[2018-08-10] MEDS: NORVASC PO SCH (10:28)
[2018-08-10] MEDS: PROTONIX PO SCH (10:28)
[2018-08-10] MEDS: SODIUM CHLORIDE FLUSH SYRINGE 10 ML IV SCH ×2 (10:29→22:06)
--- NOTE | 2018-08-10 10:51 | Event Note ---
Date: 08/10/18 Patient with hypoglycemia. I have seen and examined her. Hold Glipizide. Check fingerstick glucose q 2hrs.
[2018-08-10 11:43] LABS: Creatine Kinase MB 3.2 ng/mL (0.0-4.0)
[2018-08-10 22:30] LABS: Bacteria,Urine 1+ /HPF (Negative); Bilirubin,Urine NEG (Negative); Blood,Urine NEG (Negative); Color,Urine Yellow (Yellow); Mucus,Urine FEW /HPF; Urobilinogen,Urine < 2.0 mg/dL (<2.0)
[2018-08-11 06:07] LABS: Basophils # (Auto) 0.1 K/mm3 (0.0-0.1); Basophils % (Auto) 1.2 % (0.0-1.8); Eosinophils # (Auto) 0.5 K/mm3 (0.0-0.4); Eosinophils % (Auto) 7.8 % (0.0-4.3); Hematocrit 23.7 % (30.3-42.9); Hemoglobin 7.6 gm/dl (10.1-14.3); Lymphocytes # (Auto) 0.8 K/mm3 (1.2-5.4); Mean Corpuscular HGB Conc 32 % (30-34); Mean Corpuscular Volume 79 fl (79-97); Monocytes # (Auto) 0.6 K/mm3 (0.0-0.8); Monocytes % (Auto) 9.1 % (0.0-7.3); Platelet Count 280 K/mm3 (140-440); Red Blood Count 3.02 M/mm3 (3.65-5.03)
[2018-08-11 06:19] LABS: Red Cell Distribution Width 21.6 % (13.2-15.2)
[2018-08-11 06:33] LABS: Calcium 8.3 mg/dL (8.4-10.2)
--- NOTE | 2018-08-11 07:27 | Discharge Summary ---
Providers - Providers Date of Admission: 08/10/18 00:14 Attending physician: KOFI DÍAZ MD 08/10/18 00:14 Consult to Dietitian/Nutrition [CONS] Routine Physician Instructions: Reason For Exam: Reason for Consult: Poor oral intake [facility] Reason for admission: hypoglycemia Condition: Stable Hospital course: 73-year-old Malaysian-speaking female with history of chronic respiratory failure on 3-4L continuous supplemental oxygen, hypertension, GERD, heart failure, diabetes, CKD, pulmonary edema, contrast-induced nephropathy, bilateral pleural effusions status post therapeutic thoracentesis on 08/03/18, presents to [facility] ED via EMS with complaints of hypoglycemia. Vision is daughter is at bedside and patient has requested that her daughter translates. According to patient's daughter around 5:30 PM yesterday patient had a "weird look" on her face and was unable to talk or ambulate. The daughter checked her patient's blood sugar and it was 37. EMS was called and patient was transferred to a facility for further evaluation and treatment. Daughter states that mom had breakfast which consisted of 2 eggs, soup and a fruit drink. Patient did not have lunch but "picked on things" throughout the day. Patient had dinner around 4 PM which consisted of vegetables, lentil soup, and water to drink. Since arriving to our facility patient states that her symptoms have resolved. A review of medical records shows pt was recently discharges on 08/07/18. She was treated for acute respiratory failure, bilateral pleural effusions R>L, acute cystitis, HTN urgency, FLORIDALMA, hyperglycemia, hyponatremia, and anemia of chronic disease. 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 She was discharged with home oxygen. Denies decreased appetite, poor oral intake, headache, nausea, diaphoresis, chest pain, dyspnea, cough, hemoptysis, or fever Patient on this admission was noted to be on Glipizd at home which was initiated on discharge from prior admission. This has been discontinued and patient is to continue with insulin and sliding scale to be adjusted by primary care physician. Discharge diagnosis Hypoglycemia- likely secondary to glipizide DM2 HTN Urgency Hyponatremia Chronic hypoxic respiratory failure GERD CHF CKD3 Hx of bilateral pleural effusions s/p thoracentesis 08/03 Disposition: [id number] HOME UNDER HOME HL[facility] Time spent for discharge: 35 mins Core Measure Documentation - Palliative Care Palliative Care/ Comfort Measures: Not Applicable - Core Measures Any of the following diagnoses?: none Exam - Physical Exam Narrative exam: General appearance: Present: No acute distress, Malaysian-speaking older adult female, alert and oriented 3 - EENT Eyes: Present: PERRL, EOM intact ENT: hearing intact, normal dentition - Neck Neck: Present: supple, normal ROM - Respiratory Respiratory effort: Non-labored Respiratory: bilateral: diminished (bases), on 3 L supplemental oxygen - Cardiovascular Heart rate: 78 (bpm) Rhythm: Sinus rhythm regular Heart Sounds: Present: S1 & S2. Absent: rub, click - Extremities Extremities: no ischemia, pulses intact, abnormal (bilateral lower extremity trace edema) - Peripheral Assessment Peripheral Pulses: within normal limits - Abdominal General gastrointestinal: soft, non-tender, normal bowel sounds - Integumentary Integumentary: Present: warm, dry - Musculoskeletal Musculoskeletal: generalized weakness -Neurological Neurological: CNII-XII intact - Psychiatric Psychiatric: Appropriate for situation, cooperative - Constitutional Vitals: Temp Pulse Resp BP Pulse Ox 98.9 F 78 20 153/60 96 08/11/18 03:04 08/11/18 03:04 08/11/18 03:04 08/11/18 03:04 08/11/18 03:04 Plan Activity: advance as tolerated, fall precautions Diet: diabetic, renal Special Instructions: record daily weights, record daily BP diary, record blood sugar diary, home health RN Follow up with: [facility] MD DAYNE [Primary Care Provider] - 7 Days VENU MARTINEZ MD [Staff Physician] - 7 Days SINDI MITTAL MD [Staff Physician] - 7 Days Prescriptions: Insulin Regular, Human [HumuLIN R] 0 unit SQ AC #1 vial Other Discharge Orders: Glucometer (Amb) Location: None Selected Glucometer supplies[Amb] Location: None Selected
[2018-08-11] MEDS: CARAFATE PO SCH ×2 (08:24→11:50)
[2018-08-11] MEDS: APRESOLINE PO SCH (08:24)
[2018-08-11] MEDS: COLACE PO SCH (09:44)
[2018-08-11] MEDS: NORVASC PO SCH (09:45)
[2018-08-11] MEDS: PROTONIX PO SCH (09:45)
[2018-08-11 09:46] VITALS: BP 166/63
[2018-08-11] MEDS: SODIUM CHLORIDE FLUSH SYRINGE 10 ML IV SCH (09:46)
[2018-08-11] MEDS: HEPARIN SUB-Q SCH (09:46)
--- NOTE | 2018-08-13 10:44 | Consultation ---
The patient is a 73-year-old female with past medical history significant, which complexed amongst other things for her diagnosis of chronic kidney disease and recent admission for an acute on chronic kidney injury with contrast-induced nephropathy as the presumed etiology. This was during a hospitalization at [facility] a few days before this presentation. She came into the Emergency Room complaining of abdominal pain epigastric in nature with nausea and vomiting. It got worse on the morning of presentation, began the day before she came in. As part of the evaluation, a chest x-ray was also done. The chest x-ray reported pleural effusion, ____. Also as part of our evaluation, there is a need for possible endoscopy and preprocedural pulmonary clearance was requested for her bilateral pleural effusions. When I stopped by to see her, she was resting in bed. Her daughter was in the room, was able to assist with translation. She denied any fevers or chills. She denied any chest wall trauma. She denied any history of prior pleural effusions. She denies any tobacco use or abuse history. She denied any sick contacts. She admitted to some, I believe, lower extremity swelling bilaterally that at all ____ few days that really is much of history of this presentation as I have. PAST MEDICAL HISTORY: Hypertension, diabetes. She is obese as she has had the recent acute kidney injury, presumed due to contrast-induced nephropathy. PAST SURGICAL HISTORY: She denies. Medications she was on at that time I stopped by to see her were reviewed. Pertinent medications included the following: Tylenol 650 mg p.o. q. 4 hours p.r.n. mild pain or fevers greater than 100.5 degrees Fahrenheit, DuoNeb nebulizer treatments nebulized q. 6 hours, amlodipine 10 mg p.o. daily, dicyclomine (Bentyl) 10 mg p.o. q.i.d. p.r.n. nausea and vomiting, hydralazine 10 mg IV q. 4 hours p.r.n. systolic blood pressure greater than 160 mmHg or diastolic greater than 105, Rocephin 1 gram IV daily, insulin via sliding scale, Reglan 10 mg IV q. 6 hours p.r.n. nausea and vomiting, morphine 2 mg IV q. 4 hours p.r.n. moderate pain, Zofran 4 mg IV q. 4 hours p.r.n. nausea and vomiting, Protonix 40 mg p.o. daily. ALLERGIES: No known drug allergies. DIET: Obese lady. Her daughter denies acute weight loss or gain in the preceding few weeks to months. FAMILY AND SOCIAL HISTORY: Lives in the community. Denies alcohol, tobacco, or illicit drug use or abuse. Family history is otherwise noncontributory. REVIEW OF SYSTEMS: Difficult to obtain, but no loss of consciousness, no new onset seizures, no new onset focal weakness, no gross hematochezia or melena, no gross hematuria, no hematemesis, no hemoptysis, no palpitations. Denied heat or cold intolerance. Denied polydipsia or polyuria. Denied any new onset leg pain. She does admit to the swelling. Complete 13-system review of systems obtained. Pertinent positives and/or negatives as in body of history above, otherwise noncontributory. PHYSICAL EXAMINATION: VITAL SIGNS: At initial presentation review of the vital signs, she was afebrile, temperature 97.9 degrees Fahrenheit with a pulse of 90, respiratory rate of 16, blood pressure 164/65 and O2 sats were 95%, inspired oxygen concentration at that time was not recorded. When I stopped by to see her, O2 sats were about 98%; however, that was on 2 liters nasal cannula. GENERAL: She is an elderly looking obese female, normocephalic, atraumatic, talking to me in slightly interrupted sentences with mildly increased respiratory effort. EXAMINATION OF THE HEAD, EYES, EARS, NOSE AND THROAT: She was anicteric. No conjunctival erythema. Oropharynx was moist. There was a Mallampati #3 oropharynx. No gross jugular venous distention, no thyromegaly. NECK: Grossly, there were no palpable lymph nodes in the supraclavicular or submandibular lymph node chains. LUNGS: Auscultation of both lung nair revealed diminished bibasilar air entry; however, clear to auscultation otherwise. Slightly diminished bilateral breath sounds also. HEART: Heart sounds 1 and 2 are heard. They were regular in rate and rhythm without rubs or murmurs. ABDOMEN: Soft, full, bowel sounds are positive, nontender, no palpable hepatosplenomegaly. She did have some epigastric tenderness that was mild. No rebound, no guarding. EXTREMITIES: Without overt digital clubbing or cyanosis. Trace bipedal pitting edema. Pedal pulses were palpable bilaterally and strong. NEUROLOGIC: Pupils were equal, round, about 3 mm, reactive to light. Extraocular muscle movements were intact. She moved all 4 extremities spontaneously. SKIN: The skin was of normal turgor without overt cellulitis or rashes. LABORATORY DATA: From my review were as follows: Admission white cell count 9500, hemoglobin 8.3, hematocrit 25.4 and platelet count of 275. No band forms. Serum sodium was 126, potassium 4.4, chloride 90, bicarbonate 20, BUN 37, creatinine 2.7 and a glucose of 198. AST was up at 108, ALT was up at 76. Albumin was slightly down at 3.2. Urinalysis showed large leukocyte esterase with greater than 182 white cells per high power field. Acute hepatitis panel was negative. Urine cultures were sent and results were pending. Radiographic studies have been reviewed. A chest x-ray done on admission does show borderline cardiomegaly, bilateral pleural effusions mild to moderate and mild hilar congestion consistent with mild pulmonary edema. She also had a CT of the abdomen and pelvis. I have reviewed the films, certainly does show a moderate right pleural effusion. They report no acute intraabdominal process was found. ASSESSMENT: 1. Acute hypoxemic respiratory failure presumably secondary to #2. 2. Bilateral pleural effusions with mild pulmonary edema, presumably secondary to #3. 3. Acute kidney injury, presumed secondary to contrast nephropathy. 4. Hypertension. 5. Diabetes. 6. Obesity. 7. Anemia that is microcytic. 8. Elevated serum transaminases. 9. Hypoalbuminemia. 10. Urinary tract infection. PLAN: The urinary tract infection may well be responsible for abdominal pain and abdominal symptoms. I do note that she according to her has never had effusions. This is the first time while I do feel this might all be a transudate secondary to the kidney injury and possible cardiomyopathy. I will go ahead and send her for a thoracentesis, especially taken at age into consideration, will go for right thoracentesis considering the size of that effusion. It will be therapeutic as well as hopefully diagnostic. We will send for studies to include LDH levels, total protein levels and cytology. Supplemental oxygen will be continued to keep sats greater than or equal to about 90%. Aspiration precautions will be maintained. Bilevel positive airway pressure ventilation therapy will be offered on a p.r.n. basis. She will benefit from an outpatient sleep study. She is going to be placed on GI and DVT prophylaxis. If possible, we should get the thoracentesis first before we go around for the EGD procedure, but otherwise she probably will be [id number] risk for perioperative or periprocedural pulmonary complications. Flu and pneumonia vaccination will be addressed per protocol. Thank you very much for the consult, Dr. Goss. We will follow along. We will make further recommendations as picture progresses/becomes better. JOB# [id number] PAOLA/PATTI
== END 2018-08-11 12:24 | disposition home health service (06) ==
LOC: ED 22:01 → IMCU 08-10 00:14 → 2B-ACE 08-10 14:56
PROVIDERS: ADMIT Internal Medicine; ATTEND Internal Medicine
DX: E11.649 Type 2 diabetes mellitus with hypoglycemia without coma (principal); I16.0 Hypertensive urgency; E87.1 Hypo-osmolality and hyponatremia; J96.11 Chronic respiratory failure with hypoxia; I13.0 Hypertensive heart and chronic kidney disease with heart failure and stage 1 through stage 4 chronic kidney disease, or unspecified chronic kidney disease; E11.22 Type 2 diabetes mellitus with diabetic chronic kidney disease; N18.3 Chronic kidney disease, stage 3 (moderate); I50.9 Heart failure, unspecified; K21.9 Gastro-esophageal reflux disease without esophagitis; J91.8 Pleural effusion in other conditions classified elsewhere; D64.9 Anemia, unspecified; N28.9 Disorder of kidney and ureter, unspecified; N17.9 Acute kidney failure, unspecified; R26.2 Difficulty in walking, not elsewhere classified; Z79.899 Other long term (current) drug therapy
CPT/HCPCS: 36415; 80048; 81001; 82550; 82553; 82962; 83036; 84484; 85025; 93005; 93010; 96372; 96374; 96376; 97116; 97164; 99284; G0378; J1644

== ENCOUNTER 2018-09-14 07:47 | Outpatient (CLI) | payer MEDICARE ==
[2018-09-14 08:10] LABS: Hematocrit 30.7 % (30.3-42.9); Hemoglobin 9.8 gm/dl (10.1-14.3); Mean Corpuscular HGB Conc 32 % (30-34); Mean Corpuscular Volume 81 fl (79-97); Platelet Count 239 K/mm3 (140-440); Red Blood Count 3.82 M/mm3 (3.65-5.03)
[2018-09-14 08:12] LABS: Red Cell Distribution Width 20.6 % (13.2-15.2)
[2018-09-14 08:18] LABS: Bacteria,Urine 3+ /HPF (Negative); Bilirubin,Urine NEG (Negative); Blood,Urine NEG (Negative); Color,Urine Yellow (Yellow); Mucus,Urine FEW /HPF; Protein,Urine >2000 mg dL mg/dL (Negative); Urobilinogen,Urine < 2.0 mg/dL (<2.0)
[2018-09-14 08:40] LABS: % Iron Saturation 6.01 %; Calcium 9.3 mg/dL (8.4-10.2)
[2018-09-14 12:14] LABS: Creatinine,Urine 97.2 mg/dL (0.1-20.0)
[2018-09-14 12:27] LABS: Protein/Creatinine Ratio,Urine 3.14
[2018-09-17 08:14] LABS: Vitamin D, 25-OH, D2 <4 ng/mL
== END 2018-09-14 07:48 | disposition home or self-care (01) ==
LOC: LAB 07:47
PROVIDERS: ATTEND Internal Medicine Nephrology
DX: I13.0 Hypertensive heart and chronic kidney disease with heart failure and stage 1 through stage 4 chronic kidney disease, or unspecified chronic kidney disease (principal); I50.9 Heart failure, unspecified; N18.9 Chronic kidney disease, unspecified; D63.1 Anemia in chronic kidney disease; N25.81 Secondary hyperparathyroidism of renal origin; E66.9 Obesity, unspecified; K21.9 Gastro-esophageal reflux disease without esophagitis
CPT/HCPCS: 36415; 80048; 81001; 82306; 82570; 82728; 83550; 83970; 84100; 84156; 85027

== ENCOUNTER 2018-12-01 09:25 | Outpatient (CLI) | payer MEDICARE ==
[2018-12-01 10:08] LABS: Hematocrit 32.1 % (30.3-42.9); Hemoglobin 10.5 gm/dl (10.1-14.3); Mean Corpuscular HGB Conc 33 % (30-34); Mean Corpuscular Volume 85 fl (79-97); Platelet Count 228 K/mm3 (140-440); Red Blood Count 3.79 M/mm3 (3.65-5.03); Red Cell Distribution Width 17.6 % (13.2-15.2)
[2018-12-01 10:11] LABS: Bilirubin,Urine NEG (Negative); Blood,Urine NEG (Negative); Color,Urine Yellow (Yellow); Urobilinogen,Urine < 2.0 mg/dL (<2.0); WBC,Urine < 1.0 /HPF (0.0-6.0)
[2018-12-01 10:29] LABS: Calcium 9.1 mg/dL (8.4-10.2)
[2018-12-05 13:04] LABS: Creatinine,Urine 41.7 mg/dL (0.1-20.0); Protein/Creatinine Ratio,Urine 1.63
== END 2018-12-01 09:26 | disposition home or self-care (01) ==
LOC: MAMMO 09:25 → LAB 09:25
PROVIDERS: ATTEND Internal Medicine Nephrology
DX: N18.3 Chronic kidney disease, stage 3 (moderate) (principal)
CPT/HCPCS: 36415; 80048; 81001; 82570; 84156; 85027

== ENCOUNTER 2019-02-25 08:19 | Outpatient (CLI) | payer MEDICARE ==
[2019-02-25 08:51] LABS: Hematocrit 31.5 % (30.3-42.9); Hemoglobin 10.6 gm/dl (10.1-14.3); Mean Corpuscular HGB Conc 34 % (30-34); Mean Corpuscular Volume 88 fl (79-97); Platelet Count 237 K/mm3 (140-440); Red Blood Count 3.58 M/mm3 (3.65-5.03); Red Cell Distribution Width 14.3 % (13.2-15.2)
[2019-02-25 08:53] LABS: Bacteria,Urine 1+ /HPF (Negative); Bilirubin,Urine NEG (Negative); Blood,Urine NEG (Negative); Color,Urine Straw (Yellow); Mucus,Urine FEW /HPF; Urobilinogen,Urine < 2.0 mg/dL (<2.0)
[2019-02-25 09:13] LABS: Calcium 9.3 mg/dL (8.4-10.2)
[2019-02-25 10:06] LABS: Creatinine,Urine 46.6 mg/dL (0.1-20.0); Protein/Creatinine Ratio,Urine 1.59
== END 2019-02-25 08:20 | disposition home or self-care (01) ==
LOC: LAB 08:19
PROVIDERS: ATTEND Internal Medicine Nephrology
DX: I12.9 Hypertensive chronic kidney disease with stage 1 through stage 4 chronic kidney disease, or unspecified chronic kidney disease (principal); N18.3 Chronic kidney disease, stage 3 (moderate)
CPT/HCPCS: 36415; 80048; 81001; 82570; 84156; 85027

== ENCOUNTER 2019-07-27 08:41 | Outpatient (CLI) | payer MEDICARE ==
[2019-07-27 09:40] LABS: Hematocrit 32.4 % (30.3-42.9); Hemoglobin 10.7 gm/dl (10.1-14.3); Mean Corpuscular HGB Conc 33 % (30-34); Mean Corpuscular Volume 88 fl (79-97); Platelet Count 237 K/mm3 (140-440); Red Blood Count 3.66 M/mm3 (3.65-5.03); Red Cell Distribution Width 14.3 % (13.2-15.2)
[2019-07-27 09:43] LABS: Bilirubin,Urine NEG (Negative); Blood,Urine NEG (Negative); Color,Urine Yellow (Yellow); Urobilinogen,Urine < 2.0 mg/dL (<2.0)
[2019-07-27 10:19] LABS: Calcium 9.4 mg/dL (8.4-10.2)
[2019-07-27 11:31] LABS: Creatinine,Urine 87.1 mg/dL (0.1-20.0)
[2019-07-27 11:43] LABS: Protein/Creatinine Ratio,Urine 3.07
[2019-07-30 13:17] LABS: Vitamin D, 25-OH, D2 <4 ng/mL
== END 2019-07-27 08:42 | disposition home or self-care (01) ==
LOC: LAB 08:41
PROVIDERS: ATTEND Internal Medicine Nephrology
DX: N25.81 Secondary hyperparathyroidism of renal origin (principal); N18.3 Chronic kidney disease, stage 3 (moderate)
CPT/HCPCS: 36415; 80048; 81001; 82306; 82570; 83970; 84100; 84156; 85027

== ENCOUNTER 2019-11-04 07:53 | Outpatient (CLI) | payer MEDICARE ==
[2019-11-04 08:22] LABS: Bilirubin,Urine NEG (Negative); Blood,Urine SM (Negative); Color,Urine Yellow (Yellow); Mucus,Urine FEW /HPF; Urobilinogen,Urine < 2.0 mg/dL (<2.0)
[2019-11-04 08:23] LABS: Protein,Urine >500 mg/dL (Negative)
[2019-11-04 08:41] LABS: Albumin 4.1 g/dL (3.9-5); Calcium 9.5 mg/dL (8.4-10.2)
[2019-11-04 11:47] LABS: Creatinine,Urine 63.7 mg/dL (0.1-20.0)
[2019-11-04 11:58] LABS: Protein/Creatinine Ratio,Urine 4.07
== END 2019-11-04 07:54 | disposition home or self-care (01) ==
LOC: LAB 07:53
PROVIDERS: ATTEND Internal Medicine Nephrology
DX: I12.9 Hypertensive chronic kidney disease with stage 1 through stage 4 chronic kidney disease, or unspecified chronic kidney disease (principal); N18.3 Chronic kidney disease, stage 3 (moderate); D63.1 Anemia in chronic kidney disease; R60.0 Localized edema; N25.81 Secondary hyperparathyroidism of renal origin
CPT/HCPCS: 36415; 80053; 81001; 82306; 82570; 83970; 84100; 84156

== ENCOUNTER 2019-11-11 13:12 | Emergency (ER) | payer MEDICARE ==
--- NOTE | 2019-11-11 14:04 | XRay Report ---
CHEST 2 VIEWS INDICATION / CLINICAL INFORMATION: Chest Pain. COMPARISON: None available. FINDINGS: SUPPORT DEVICES: None. HEART / MEDIASTINUM: No significant abnormality. LUNGS / PLEURA: No significant pulmonary or pleural abnormality. No pneumothorax. ADDITIONAL FINDINGS: No significant additional findings. IMPRESSION: No acute cardiopulmonary abnormality. Signer Name: Edis Erickson MD Signed: 11/11/2019 1:59 PM Workstation Name: [id number]
[2019-11-11] MEDS ORDERED: hydrALAZINE 100 MG TAB PO ONE (14:57)
[2019-11-11] MEDS ORDERED: amLODIPine 5 MG TAB PO ONE (14:57)
--- NOTE | 2019-11-11 14:59 | Emergency Department Report ---
ED General Adult HPI - General Chief complaint: High BP Stated complaint: ELEVATED HYPERTENSION PUI?: No Time Seen by Provider: 11/11/19 14:36 Source: patient, RN notes reviewed, old records reviewed Mode of arrival: Ambulatory Limitations: No Limitations - History of Present Illness Initial comments: The patient was evaluated in the emergency department for symptoms described in the history of present illness. He/she was evaluated in the context of the global COVID-19 pandemic, which necessitated consideration that the patient might be at risk for infection with the virus that causes COVID-19. Institutional protocols and algorithms that pertain to the evaluation of patients at risk for COVID-19 are in a state of rapid change based on information released by regulatory bodies including the CDC and federal and state organizations. These policies and algorithms were followed during the patient's care in the emergency department. Please note that these policies, procedures and recommendations changed on a rapid basis. Primary care doctor: Dr. Kris Berkowitz. Nephrology: Dr. Rosario pie filler: Patient advocate Ms Erum Bryant Patient is a pleasant 74-year-old female. She has a history of hypertension renal insufficiency, hypothyroidism and diabetes. She is currently on labetalol, 300 mg twice daily. She ran out of her medication. She ran out of her medication a few days ago. She went to her primary care doctor's office today to have her medication refilled. She was found to have asymptomatic hypertension, and thus referred to the emergency room. The patient denies all complaints at this time. She indicates that if her primary care doctor had not referred her to the emergency room for her asymptomatic hypertension, she would not have presented on her own. She specifically denies headache, neck pain, chest pain, abdominal pain, new or different shortness of breath, ocular pain, loss of vision, dysuria. She also indicates that she is not consuming caffeine, energy drinks or stimulants. Improves with: none Worsens with: none Associated Symptoms: denies other symptoms - Related Data Home Medications Medication Instructions Recorded Confirmed Last Taken Furosemide [Lasix TAB] 20 mg PO QDAY 07/31/18 08/10/18 08/09/18 HYDROcodone/APAP 5-325 [Rudolph 1 each PO Q4HR PRN 07/31/18 08/10/18 Unknown 5-325 mg TAB] Pantoprazole Sodium [Protonix] 40 mg PO DAILY 0508/10/18 08/09/18 Tamsulosin 0.4 mg PO HS 07/31/18 08/10/18 08/09/18 amLODIPine 10 mg PO DAILY 07/31/18 08/10/18 08/09/18 hydrALAZINE [Apresoline TAB] 100 mg PO TID 07/31/18 08/10/18 08/09/18 Previous Rx's Medication Instructions Recorded Last Taken Type Albuterol Mdi (or & Nicu Only) 2 puff IH QID PRN #1 inhalation 08/07/18 Unknown Rx [ProAir HFA Inhaler] Ipratropium/Albuter (Nf) 2 puff IH QID #1 inha 08/07/18 Unknown Rx [Combivent Inhaler] Sucralfate [Carafate] 1 gm PO ACHS #30 tablet 08/07/18 08/09/18 Rx cefUROXime [Ceftin] 250 mg PO Q12H #20 tablet 08/07/18 08/09/18 Rx Insulin Regular, Human [HumuLIN R] 0 unit SQ AC #1 vial 08/11/18 Unknown Rx Labetalol HCl [Labetalol 300mg TAB] 300 mg PO BID #60 tablet 11/11/19 Unknown Rx Allergies Allergy/AdvReac Type Severity Reaction Status Date / Time No Known Allergies Allergy Verified 07/31/18 07:06 ED Review of Systems ROS: Stated complaint: ELEVATED HYPERTENSION Other details as noted in HPI Comment: All other systems reviewed and negative ED Past Medical Hx - Past Medical History Hx Hypertension: Yes Hx Congestive Heart Failure: Yes Hx Diabetes: Yes Hx GERD: Yes Hx Liver Disease: No Hx Renal Disease: No Additional medical history: Home O2 3-4 L - Surgical History Past Surgical History?: No - Social History Smoking Status: Never Smoker - Medications Home Medications: Home Medications Medication Instructions Recorded Confirmed Last Taken Type Furosemide [Lasix TAB] 20 mg PO QDAY 07/31/18 08/10/18 08/09/18 History HYDROcodone/APAP 5-325 [Rudolph 1 each PO Q4HR PRN 07/31/18 08/10/18 Unknown History 5-325 mg TAB] Pantoprazole Sodium [Protonix] 40 mg PO DAILY 07/31/18 08/10/18 08/09/18 History Tamsulosin 0.4 mg PO HS 07/31/18 08/10/18 08/09/18 History amLODIPine 10 mg PO DAILY 07/31/18 08/10/18 08/09/18 History hydrALAZINE [Apresoline TAB] 100 mg PO TID 07/31/18 08/10/18 08/09/18 History Albuterol Mdi (or & Nicu Only) 2 puff IH QID PRN #1 inhalation 08/07/18 08/10/18 Unknown Rx [ProAir HFA Inhaler] Ipratropium/Albuter (Nf) 2 puff IH QID #1 inha 08/07/18 08/10/18 Unknown Rx [Combivent Inhaler] Sucralfate [Carafate] 1 gm PO ACHS #30 tablet 08/07/18 08/10/18 08/09/18 Rx cefUROXime [Ceftin] 250 mg PO Q12H #20 tablet 08/07/18 08/10/18 08/09/18 Rx Insulin Regular, Human [HumuLIN R] 0 unit SQ AC #1 vial 08/11/18 Unknown Rx Labetalol HCl [Labetalol 300mg TAB] 300 mg PO BID #60 tablet 11/11/19 Unknown Rx ED Physical Exam - General Limitations: Language Barrier General appearance: alert, in no apparent distress - Head Head exam: Present: atraumatic, normocephalic - Eye Eye exam: Present: normal appearance, PERRL, EOMI. Absent: nystagmus - ENT ENT exam: Present: normal exam, normal orophraynx, mucous membranes moist, normal external ear exam - Neck Neck exam: Present: normal inspection, full ROM. Absent: tenderness, meningismus - Respiratory Respiratory exam: Present: normal lung sounds bilaterally. Absent: respiratory distress - Cardiovascular Cardiovascular Exam: Present: regular rate, normal rhythm, normal heart sounds. Absent: bradycardia, tachycardia, irregular rhythm, systolic murmur, diastolic murmur, rubs, gallop - GI/Abdominal GI/Abdominal exam: Present: soft. Absent: distended, tenderness, guarding, rebound, rigid, pulsatile mass - Extremities Exam Extremities exam: Present: normal inspection, full ROM, other (2+ pulses noted in the bilateral upper and lower extremities. There is no palpable cord. negative Homans sign. Muscular compartments are soft. The pelvis is stable.). Absent: calf tenderness - Back Exam Back exam: Present: normal inspection, full ROM. Absent: tenderness, CVA tenderness (R), CVA tenderness (L), paraspinal tenderness, vertebral tenderness - Neurological Exam Neurological exam: Present: alert, normal gait, other (No facial droop. Tongue midline. Extraocular movements intact bilaterally. Facial sensation intact to light touch in V1, V2, V3 distribution bilaterally. 5 and a 5 strength in 4 extremities. Sensation intact to light touch in 4 extremities.) - Psychiatric Psychiatric exam: Present: normal affect, normal mood - Skin Skin exam: Present: warm, dry, intact, normal color. Absent: rash ED Course Vital Signs 11/11/19 11/11/19 11/11/19 13:28 14:30 14:32 Temperature 98.0 F Pulse Rate 76 Respiratory 18 14 18 Rate Blood Pressure 225/100 Blood Pressure [Right] O2 Sat by Pulse 97 98 98 Oximetry 11/11/19 11/11/19 11/11/19 14:33 14:36 14:44 Temperature Pulse Rate 74 74 74 Respiratory 20 Rate Blood Pressure Blood Pressure 180/95 [Right] O2 Sat by Pulse 98 Oximetry ED Medical Decision Making - EKG Data -: EKG Interpreted by Fl EKG shows normal: sinus rhythm Rate: normal - EKG Data 11/11/19 15:35 EKG today shows a sinus rhythm, 70 bpm, left axis deviation, left anterior fascicular block, left ventricular hypertrophy, QTC is prolonged, when compared to prior EKG, left ventricular hypertrophy is more pronounced, left axis deviation is more pronounced. The EKG is not a STEMI. - Radiology Data Radiology results: report reviewed, image reviewed X-ray of the chest is negative for acute disease - Medical Decision Making Vital Signs 11/11/19 11/11/19 11/11/19 13:28 14:30 14:32 Temperature 98.0 F Pulse Rate 76 Respiratory 18 14 18 Rate Blood Pressure 225/100 Blood Pressure [Right] O2 Sat by Pulse 97 98 98 Oximetry 11/11/19 11/11/19 11/11/19 14:33 14:36 14:44 Temperature Pulse Rate 74 74 74 Respiratory 20 Rate Blood Pressure Blood Pressure 180/95 [Right] O2 Sat by Pulse 98 Oximetry Differential diagnosis, including but not limited to: Chronic hypertension, medication refill Assessment and plan: 74-year-old female, who is pleasant, calm and cooperative, who is afebrile, with reassuring vital signs with exception of chronic hypertension, with no acute complaints at this time, with the exception of request for medication refill. We will give her her dose of labetalol. Please reference the [employer] clinical policy on hypertension which is not acutely symptomatic or decompensated. She has been out of her blood pressure medication for 2 days. She can follow-up with her outpatient primary care doctor. She has indicated that she does not require refills on any of her other prescriptions. Please note that an x-ray of the chest and an EKG were obtained prior to my personal evaluation of the patient. Critical care attestation.: If time is entered above; I have spent that time in minutes in the direct care of this critically ill patient, excluding procedure time. ED Disposition Clinical Impression: Medication refill Hypertension Qualifiers: Hypertension type: unspecified Qualified Code(s): I10 - Essential (primary) hypertension Disposition: DC- TO HOME OR SELFCARE Is pt being admited?: No Does the pt Need Aspirin: No Condition: Stable Instructions: Hypertension (ED) Additional Instructions: Do not take Motrin, ibuprofen, Naprosyn, Aleve. Limit salt intake. Avoid consumption of caffeine, energy drinks, and stimulants. Take blood pressure medication as directed. Follow-up with your primary care doctor or information analyst/kidney doctor within the next 3 to 4 weeks. Patient was found to have high blood pressure today in the emergency room. Long-term complications of hypertension and elevated blood pressure include stroke, heart attack, disability, paralysis, loss of quality of life. Please return to the emergency room right away with new pain, worsened pain, migration of pain, projectile vomiting, change in mental status, confusion, inability to tolerate liquid feeds, new, worsened or different symptoms not present on the initial emergency room evaluation. No tome Motrin, ibuprofeno, Naprosyn, Aleve. Limite el consumo de albert. Evite el consumo de cafena, bebidas energticas y estimulantes. Boswell los medicamentos para la presin arterial segn las indicaciones. Kimberley un seguimiento con sr mdico de atencin primaria o nefrlogo / mdico renal dentro de las prximas 3 a 4 semanas. Se descubri que el paciente carlene presin arterial chacorta hoy en la carmen de emergencias. Las complicaciones a maritza plazo de la hipertensin y la presin arterial elevada incluyen accidente cerebrovascular, ataque cardaco, discapacidad, parlisis y prdida de la calidad de negin. Regrese a la carmen de emergencias de inmediato con dolor nuevo, empeoramiento del dolor, migracin del dolor, vmitos en proyectil, cambio en el estado mental, confusin, incapacidad para tolerar alimentos lquidos, sntomas nuevos, empeorados o diferentes que no estn presentes en la evaluacin inicial de la carmen de emergencias. Prescriptions: Labetalol HCl [Labetalol 300mg TAB] 300 mg PO BID #60 tablet Referrals: VENU ROSARIO MD [Staff Physician] - 3-5 Days KRIS BERKOWITZ MD [Referring] - 3-5 Days Print Language: TAJIK
[2019-11-11 16:09] VITALS: BP 195/96
== END 2019-11-11 16:18 | disposition home or self-care (01) ==
LOC: ED 13:12
DX: I11.0 Hypertensive heart disease with heart failure (principal); I50.9 Heart failure, unspecified; E11.9 Type 2 diabetes mellitus without complications; K21.9 Gastro-esophageal reflux disease without esophagitis; Z76.0 Encounter for issue of repeat prescription; Z79.4 Long term (current) use of insulin; Z79.899 Other long term (current) drug therapy
CPT/HCPCS: 36415; 71046; 93005

== ENCOUNTER 2019-12-16 08:34 | Outpatient (CLI) | payer MEDICARE ==
[2019-12-16 09:17] LABS: Basophils # (Auto) 0.1 K/mm3 (0.0-0.1); Basophils % (Auto) 0.9 % (0.0-1.8); Eosinophils # (Auto) 0.5 K/mm3 (0.0-0.4); Eosinophils % (Auto) 7.8 % (0.0-4.3); Hematocrit 30.5 % (30.3-42.9); Lymphocytes # (Auto) 1.5 K/mm3 (1.2-5.4); Lymphocytes % (Auto) 24.4 % (13.4-35.0); Mean Corpuscular HGB Conc 33 % (30-34); Mean Corpuscular Volume 89 fl (79-97); Monocytes # (Auto) 0.5 K/mm3 (0.0-0.8); Monocytes % (Auto) 8.4 % (0.0-7.3); Platelet Count 251 K/mm3 (140-440); Red Blood Count 3.42 M/mm3 (3.65-5.03); Red Cell Distribution Width 14.1 % (13.2-15.2)
[2019-12-16 09:37] LABS: Bilirubin,Urine NEG (Negative); Blood,Urine NEG (Negative); Color,Urine Straw (Yellow); Mucus,Urine FEW /HPF; Urobilinogen,Urine < 2.0 mg/dL (<2.0)
[2019-12-16 09:39] LABS: Protein,Urine >500 mg/dL (Negative)
[2019-12-16 09:41] LABS: Calcium 9.1 mg/dL (8.4-10.2)
[2019-12-16 14:47] LABS: Creatinine,Urine 65.5 mg/dL (0.1-20.0)
[2019-12-16 14:59] LABS: Protein/Creatinine Ratio,Urine 3.04
== END 2019-12-16 08:35 | disposition home or self-care (01) ==
LOC: LAB 08:34
PROVIDERS: ATTEND Internal Medicine Nephrology
DX: N18.30 Chronic kidney disease, stage 3 unspecified (principal); R60.0 Localized edema; N25.81 Secondary hyperparathyroidism of renal origin
CPT/HCPCS: 36415; 80048; 81001; 82570; 83735; 84100; 84156; 85025

== ENCOUNTER 2020-03-02 08:30 | Outpatient (CLI) | payer MEDICARE ==
[2020-03-02 09:06] LABS: Hematocrit 30.4 % (30.3-42.9); Hemoglobin 10.2 gm/dl (10.1-14.3); Mean Corpuscular HGB Conc 34 % (30-34); Mean Corpuscular Volume 87 fl (79-97); Platelet Count 229 K/mm3 (140-440); Red Blood Count 3.49 M/mm3 (3.65-5.03); Red Cell Distribution Width 15.4 % (13.2-15.2)
[2020-03-02 09:08] LABS: Bilirubin,Urine NEG (Negative); Blood,Urine NEG (Negative); Color,Urine Yellow (Yellow); Urobilinogen,Urine < 2.0 mg/dL (<2.0)
[2020-03-02 09:11] LABS: Protein,Urine >500 mg/dL (Negative)
[2020-03-02 15:15] LABS: Protein/Creatinine Ratio,Urine 5.78
== END 2020-03-02 08:31 | disposition home or self-care (01) ==
LOC: LAB 08:30
PROVIDERS: ATTEND Internal Medicine Nephrology
DX: I12.9 Hypertensive chronic kidney disease with stage 1 through stage 4 chronic kidney disease, or unspecified chronic kidney disease (principal); N18.9 Chronic kidney disease, unspecified
CPT/HCPCS: 36415; 80048; 81001; 82570; 84156; 85027

== ENCOUNTER 2020-03-14 01:39 | Inpatient (IN) | payer MEDICARE ==
--- NOTE | 2020-03-14 02:06 | Emergency Department Report ---
ED Shortness of Breath HPI - General Chief Complaint: Dyspnea/Respdistress Stated Complaint: DIFF BREATHING Time Seen by Provider: 03/14/20 01:56 Source: patient, family Mode of arrival: Wheelchair Limitations: No Limitations - History of Present Illness Initial Comments: 75-year-old female, history of hypertension and diabetes, presents to ED with shortness of breath x1 day. Daughter reports over the last 3 days patient has had some nausea and vomiting. She was seen by her PCP and diagnosed with gastritis. Over the next couple of days patient developed a cough and is now having difficulty breathing. Patient denies fever, loss of smell or taste, body aches. No known exposure to anyone who has tested positive for COVID-19. MD Complaint: shortness of breath -: days(s) (1) Severity: moderate Consistency: constant Improves With: rest Worsens With: exertion Associated Symptoms: nausea/vomiting - Related Data Home Oxygen Therapy: No Previous Rx's Medication Instructions Recorded Last Taken Type Albuterol Mdi (or & Nicu Only) 2 puff IH QID PRN #1 inhalation 08/07/18 Unknown Rx [ProAir HFA Inhaler] Sucralfate [Carafate] 1 gm PO ACHS #30 tablet 08/07/18 03/13/20 Rx Insulin Regular, Human [HumuLIN R] 0 unit SQ AC #1 vial 08/11/18 Unknown Rx Labetalol HCl [Labetalol 300mg TAB] 300 mg PO BID #60 tablet 11/11/19 03/14/20 Rx Allergies Allergy/AdvReac Type Severity Reaction Status Date / Time No Known Allergies Allergy Verified 07/31/18 07:06 ED Review of Systems ROS: Stated complaint: DIFF BREATHING Other details as noted in HPI Comment: All other systems reviewed and negative Constitutional: denies: chills, fever ENT: other (Denies loss of smell or taste) Respiratory: cough, shortness of breath Gastrointestinal: nausea, vomiting ED Past Medical Hx - Past Medical History Previous Medical History?: Yes Hx Hypertension: Yes Hx Congestive Heart Failure: Yes Hx Diabetes: Yes Hx GERD: Yes Hx Liver Disease: No Hx Renal Disease: No Additional medical history: Home O2 3-4 L not anymore - Surgical History Past Surgical History?: Yes Additional Surgical History: hysterectom - Social History Smoking Status: Never Smoker Substance Use Type: None - Medications Home Medications: Home Medications Medication Instructions Recorded Confirmed Last Taken Type Albuterol Mdi (or & Nicu Only) 2 puff IH QID PRN #1 inhalation 08/07/18 03/14/20 Unknown Rx [ProAir HFA Inhaler] Sucralfate [Carafate] 1 gm PO ACHS #30 tablet 08/07/18 03/14/20 03/13/20 Rx Insulin Regular, Human [HumuLIN R] 0 unit SQ AC #1 vial 08/11/18 03/14/20 Unknown Rx Labetalol HCl [Labetalol 300mg TAB] 300 mg PO BID #60 tablet 11/11/19 03/14/20 03/14/20 Rx ED Physical Exam - General Limitations: No Limitations General appearance: alert, in no apparent distress - Head Head exam: Present: atraumatic, normocephalic - Eye Eye exam: Present: normal appearance - ENT ENT exam: Present: mucous membranes moist - Neck Neck exam: Present: normal inspection - Respiratory Respiratory exam: Present: normal lung sounds bilaterally, other (Slightly tachypneic) - Cardiovascular Cardiovascular Exam: Present: regular rate, normal rhythm - GI/Abdominal GI/Abdominal exam: Present: soft. Absent: distended, tenderness - Extremities Exam Extremities exam: Present: normal inspection - Neurological Exam Neurological exam: Present: alert, oriented X3 - Psychiatric Psychiatric exam: Present: normal affect, normal mood - Skin Skin exam: Present: warm, dry, intact, normal color ED Course Vital Signs 03/14/20 03/14/20 03/14/20 01:47 01:53 02:15 Temperature 98.6 F Pulse Rate 72 70 Respiratory 24 31 H Rate Blood Pressure 165/52 175/51 O2 Sat by Pulse 74 L 96 Oximetry 03/14/20 03/14/20 03/14/20 02:31 02:45 03:01 Temperature Pulse Rate 68 69 67 Respiratory 21 31 H 31 H Rate Blood Pressure 186/61 186/61 143/65 O2 Sat by Pulse 99 96 95 Oximetry 03/14/20 03:15 Temperature Pulse Rate 70 Respiratory 28 H Rate Blood Pressure 162/83 O2 Sat by Pulse 96 Oximetry ED Medical Decision Making - Lab Data Result diagrams: 03/14/20 02:52 03/14/20 02:52 - EKG Data -: EKG Interpreted by Me EKG shows normal: sinus rhythm, axis, intervals, QRS complexes, ST-T waves Rate: normal - EKG Data Interpretation: no acute changes - Radiology Data Radiology results: report reviewed, image reviewed - Medical Decision Making 75-year-old female presents to the ED with difficulty breathing x1 day. For the last couple of days patient has been having nausea, vomiting, generalized weakness. No fever. On presentation to the ED, O2 sats were 74% on room air. Patient placed on 6 L O2 via nasal cannula. Chest x-ray shows bilateral pulmonary opacities, worrisome for possible Covid infection. Covid markers are elevated. Blood cultures drawn. Patient given Rocephin, azithromycin, Decadron . Patient will be admitted to hospitalist, Dr. Borges, for further management. - Differential Diagnosis Pneumonia, CHF, COVID-19 Critical Care Time: Yes Critical care time in (mins) excluding proc time.: 35 Critical care attestation.: If time is entered above; I have spent that time in minutes in the direct care of this critically ill patient, excluding procedure time. Critical Care Time: 35 min ED Disposition Clinical Impression: Acute respiratory failure with hypoxia, Suspected COVID-19 virus infection, Acute renal failure superimposed on chronic kidney disease, Pneumonia Disposition: OP ADMIT IP TO THIS HOSP Is pt being admited?: Yes Condition: Stable Instructions: Bacterial Pneumonia (ED) Referrals: PRIMARY CARE, [Primary Care Provider] - 3-5 Days Time of Disposition: 04:00
--- NOTE | 2020-03-14 02:30 | XRay Report ---
CHEST 1 VIEW INDICATION / CLINICAL INFORMATION: cough, sob. COMPARISON: 11/11/2019 FINDINGS: SUPPORT DEVICES: None. HEART / MEDIASTINUM: Cardiac silhouette appears mildly enlarged. LUNGS / PLEURA: There are prominent bilateral pulmonary opacities with appearance most suggestive for multifocal bilateral pneumonia. No pneumothorax. ADDITIONAL FINDINGS: No significant additional findings. IMPRESSION: 1. Prominent bilateral pulmonary opacities most likely secondary to multifocal viral pneumonia. Signer Name: Diana Esteves MD Signed: 03/14/2020 2:26 AM Workstation Name: [facility]
[2020-03-14] MEDS ORDERED: cefTRIAXone/NS 1 GM/50 ML 1 GM/50 ML BAG IV ONE (02:34)
[2020-03-14] MEDS ORDERED: DEXAMETHASONE 4 MG TAB PO ONE (02:34)
[2020-03-14] MEDS ORDERED: AZITHROMYCIN 250 MG TAB PO ONE (02:34)
[2020-03-14 03:17] LABS: Basophils % (Auto) 0.2 % (0.0-1.8); Eosinophils % (Auto) 0.5 % (0.0-4.3); Hematocrit 28.8 % (30.3-42.9); Hemoglobin 9.4 gm/dl (10.1-14.3); Lymphocytes # (Auto) 0.6 K/mm3 (1.2-5.4); Lymphocytes % (Auto) 6.2 % (13.4-35.0); Mean Corpuscular HGB Conc 33 % (30-34); Mean Corpuscular Volume 85 fl (79-97); Monocytes # (Auto) 0.5 K/mm3 (0.0-0.8); Monocytes % (Auto) 5.5 % (0.0-7.3); Platelet Count 286 K/mm3 (140-440); Red Cell Distribution Width 15.6 % (13.2-15.2)
[2020-03-14 03:28] LABS: Albumin 2.8 g/dL (3.9-5); Calcium 7.8 mg/dL (8.4-10.2)
[2020-03-14 03:30] LABS: INR 1.05 (0.87-1.13); Partial Thromboplastin Time 33.7 Sec. (24.2-36.6)
[2020-03-14 03:33] LABS: C-Reactive Protein 10.3 mg/dL (0.00-1.30)
[2020-03-14] MEDS ORDERED: ALBUTEROL 8.5 GM MDI INHALATION IH PRN (04:19)
--- NOTE | 2020-03-14 04:35 | History and Physical Report ---
History of Present Illness Date of examination: 03/14/20 Chief complaint: Shortness of breath cough History of present illness: 75-year-old female, history of hypertension and diabetes was brought to the emergency room with shortness of breath x1 day. patient has had some nausea and vomiting. She was seen by her PCP and diagnosed with gastritis. Over the next couple of days patient developed a cough and is now having difficulty breathing. Patient denies fever, loss of smell or taste, body aches. No known exposure to anyone who has tested positive for COVID-19. In the emergency room patient was found to have COVID-19 positive test (U07.1, COVID-19) with Acute Pneumonia (J12.89, Other viral pneumonia) (If respiratory failure or sepsis present, add as separate assessment) Past History Past Medical History: diabetes, hypertension Medications and Allergies Allergies Allergy/AdvReac Type Severity Reaction Status Date / Time No Known Allergies Allergy Verified 07/31/18 07:06 Home Medications Medication Instructions Recorded Confirmed Last Taken Type Albuterol Mdi (or & Nicu Only) 2 puff IH QID PRN #1 inhalation 08/07/18 03/14/20 Unknown Rx [ProAir HFA Inhaler] Sucralfate [Carafate] 1 gm PO ACHS #30 tablet 08/07/18 03/14/20 03/13/20 Rx Insulin Regular, Human [HumuLIN R] 0 unit SQ AC #1 vial 08/11/18 03/14/20 Unknown Rx Labetalol HCl [Labetalol 300mg TAB] 300 mg PO BID #60 tablet 11/11/19 03/14/20 03/14/20 Rx Active Meds: Active Medications Albuterol (Albuterol 8.5 Gm Mdi Inhalation) 2 puff IH QID PRN PRN Reason: Shortness Of Breath Dexamethasone (Dexamethasone 4 Mg/Ml Vial) 6 mg IV DAILY TERA Famotidine (Famotidine 20 Mg Tab) 20 mg PO QAM TERA Heparin Sodium (Porcine) (Heparin 5,000 Unit/1 Ml Vial) 5,000 unit SUB-Q Q8HR TERA Ceftriaxone Sodium (Rocephin/Ns 2 Gm/100 Ml) 2 gm in 100 mls @ 200 mls/hr IV Q24HR TERA; Protocol Azithromycin 500 mg/ Sodium (Chloride) 250 mls @ 250 mls/hr IV Q24HR TERA; Protocol Labetalol HCl (Labetalol 100 Mg Tab) 100 mg PO BID TERA Labetalol HCl (Labetalol 200 Mg Tab) 200 mg PO BID TERA Pantoprazole Sodium (Pantoprazole 40 Mg Tab) 40 mg PO QDAC TERA Sucralfate (Sucralfate 1 Gm Tab) 1 gm PO ACHS TERA Review of Systems Ears, nose, mouth and throat: deferred Breasts: deferred Cardiovascular: shortness of breath Respiratory: cough, shortness of breath Exam - Constitutional Vitals: Temp Pulse Resp BP Pulse Ox 98.6 F 70 28 H 162/83 96 03/14/20 01:53 03/14/20 03:15 03/14/20 03:15 03/14/20 03:15 03/14/20 03:15 General appearance: Present: no acute distress, well-nourished - EENT Eyes: Present: PERRL ENT: hearing intact, clear oral mucosa - Neck Neck: Present: supple, normal ROM - Respiratory Respiratory effort: normal Respiratory: bilateral: diminished - Cardiovascular Rhythm: regular Heart Sounds: Present: S1 & S2 - Extremities Extremities: no ischemia Peripheral Pulses: within normal limits - Abdominal General gastrointestinal: Present: soft, non-tender, non-distended, normal bowel sounds Female genitourinary: Present: normal - Rectal Rectal Exam: deferred - Integumentary Integumentary: Present: clear, warm, dry - Musculoskeletal Musculoskeletal: gait normal, strength equal bilaterally - Psychiatric Psychiatric: appropriate mood/affect, intact judgment & insight - Neurologic Neurologic: CNII-XII intact, moves all extremities HEART Score - HEART Score Troponin: Troponin T 0.013 ng/mL (0.00-0.029) 03/14/20 02:52 Results - Labs CBC & Chem 7: 03/14/20 02:52 03/14/20 02:52 Labs: Laboratory Last Values WBC 9.3 K/mm3 (4.5-11.0) 03/14/20 02:52 RBC 3.40 M/mm3 (3.65-5.03) L 03/14/20 02:52 Hgb 9.4 gm/dl (10.1-14.3) L 03/14/20 02:52 Hct 28.8 % (30.3-42.9) L 03/14/20 02:52 MCV 85 fl (79-97) 03/14/20 02:52 MCH 28 pg (28-32) 03/14/20 02:52 MCHC 33 % (30-34) 03/14/20 02:52 RDW 15.6 % (13.2-15.2) H 03/14/20 02:52 Plt Count 286 K/mm3 (140-440) 03/14/20 02:52 Lymph % (Auto) 6.2 % (13.4-35.0) L 03/14/20 02:52 Tillman % (Auto) 5.5 % (0.0-7.3) 03/14/20 02:52 Eos % (Auto) 0.5 % (0.0-4.3) 03/14/20 02:52 Baso % (Auto) 0.2 % (0.0-1.8) 03/14/20 02:52 Lymph # (Auto) 0.6 K/mm3 (1.2-5.4) L 03/14/20 02:52 Tillman # (Auto) 0.5 K/mm3 (0.0-0.8) 03/14/20 02:52 Eos # (Auto) 0.0 K/mm3 (0.0-0.4) 03/14/20 02:52 Baso # (Auto) 0.0 K/mm3 (0.0-0.1) 03/14/20 02:52 Seg Neutrophils % 87.6 % (40.0-70.0) H 03/14/20 02:52 Seg Neutrophils # 8.2 K/mm3 (1.8-7.7) H 03/14/20 02:52 PT 13.6 Sec. (12.2-14.9) 03/14/20 02:52 INR 1.05 (0.87-1.13) 03/14/20 02:52 APTT 33.7 Sec. (24.2-36.6) 03/14/20 02:52 D-Dimer 845.52 ng/mlDDU (0-234) H 03/14/20 02:52 Sodium 131 mmol/L (137-145) L 03/14/20 02:52 Potassium 5.0 mmol/L (3.6-5.0) 03/14/20 02:52 Chloride 101.9 mmol/L (98-107) 03/14/20 02:52 Carbon Dioxide 17 mmol/L (22-30) L 03/14/20 02:52 Anion Gap 17 mmol/L 03/14/20 02:52 BUN 44 mg/dL (7-17) H 03/14/20 02:52 Creatinine 2.9 mg/dL (0.6-1.2) H 03/14/20 02:52 Estimated GFR 16 ml/min 03/14/20 02:52 BUN/Creatinine Ratio 15 % 03/14/20 02:52 Glucose 276 mg/dL (65-100) H 03/14/20 02:52 Lactic Acid 0.90 mmol/L (0.7-2.0) 03/14/20 02:52 Calcium 7.8 mg/dL (8.4-10.2) L 03/14/20 02:52 Ferritin 273.0 ng/mL (10.0-200.0) H 03/14/20 02:52 Total Bilirubin 0.30 mg/dL (0.1-1.2) 03/14/20 02:52 AST 26 units/L (5-40) 03/14/20 02:52 ALT 15 units/L (7-56) 03/14/20 02:52 Alkaline Phosphatase 89 units/L (35-129) 03/14/20 02:52 Lactate Dehydrogenase 413 units/L (91-180) H 03/14/20 02:52 Troponin T 0.013 ng/mL (0.00-0.029) 03/14/20 02:52 C-Reactive Protein 10.30 mg/dL (0.00-1.30) H 03/14/20 02:52 NT-Pro-B Natriuret Pep 45043 pg/mL (0-900) H 03/14/20 02:52 Total Protein 5.5 g/dL (6.3-8.2) L 03/14/20 02:52 Albumin 2.8 g/dL (3.9-5) L 03/14/20 02:52 Albumin/Globulin Ratio 1.0 % 03/14/20 02:52 Christina/IV: IV Catheter Type [Right INT / Saline Lock Antecubital] Assessment and Plan - Patient Problems (1) Acute renal failure superimposed on chronic kidney disease Current Visit: Yes Status: Acute Plan to address problem: Avoid nephrotoxic drug. Normal saline at the rate of 75 cc/h. We consulted n ephrology for further evaluation and treatment. Recheck CBC BMP in the morning. (2) Acute respiratory failure with hypoxia Current Visit: Yes Status: Acute Plan to address problem: Admit the patient to the medical telemetry. Put the patient on oxygen per nasal cannula 3 L/min. DuoNeb by nebulizer every 4 hours as needed. Decadron 6 mg IV daily. Rocephin 1 g IV daily and Zithromax 500 mg IV daily. To do the blood cultures sputum culture. Reconsult pulmonary as well as infectious disease for evaluation and treatment. We follow the inflammatory markers. Heparin 5000 units subcu every 8 hours (3) Pneumonia Current Visit: Yes Status: Acute Plan to address problem: Put the patient on oxygen per nasal cannula 3 L/min. DuoNeb by nebulizer every 4 hours as needed. Decadron 6 mg IV daily. Rocephin 1 g IV daily and Zithromax 500 mg IV daily. To do the blood cultures sputum culture. Reconsult pulmonary as well as infectious disease for evaluation and treatment. We follow the inflammatory markers. Heparin 5000 units subcu every 8 hours (4) Suspected COVID-19 virus infection Current Visit: Yes Status: Acute Plan to address problem: Put the patient on oxygen per nasal cannula 3 L/min. DuoNeb by nebulizer every 4 hours as needed. Decadron 6 mg IV daily. Rocephin 1 g IV daily and Zithromax 500 mg IV daily. To do the blood cultures sputum culture. Reconsult pulmonary as well as infectious disease for evaluation and treatment. We follow the inflammatory markers. Heparin 5000 units subcu every 8 hours
[2020-03-14] MEDS ORDERED: SODIUM CHLORIDE 0.9% 500 ML 500 ML IV SCH (05:00)
[2020-03-14] MEDS: HEPARIN 5,000 UNIT/1 ML VIAL SUB-Q SCH ×3 (06:02→23:06)
[2020-03-14 06:44] LABS: Hematocrit 30.7 % (30.3-42.9); Hemoglobin 9.9 gm/dl (10.1-14.3); Mean Corpuscular HGB Conc 32 % (30-34); Mean Corpuscular Volume 86 fl (79-97); Platelet Count 302 K/mm3 (140-440); Red Blood Count 3.57 M/mm3 (3.65-5.03); Red Cell Distribution Width 15.9 % (13.2-15.2)
[2020-03-14 06:45] LABS: Basophils % (Auto) 0.1 % (0.0-1.8); Eosinophils % (Auto) 0.1 % (0.0-4.3); Lymphocytes # (Auto) 0.5 K/mm3 (1.2-5.4); Lymphocytes % (Auto) 4.5 % (13.4-35.0); Monocytes # (Auto) 0.3 K/mm3 (0.0-0.8); Monocytes % (Auto) 3.4 % (0.0-7.3)
[2020-03-14] MEDS: SUCRALFATE 1 GM TAB PO SCH ×4 (07:24→23:07)
--- NOTE | 2020-03-14 09:07 | Consultation ---
History of Present Illness Consult date: 03/14/20 Reason for consult: hypoxemia, other (COVID 19) History of present illness: 75 y/o female with chronic renal disease is admitted with acute hypoxic respiratory failure secondary to COVID 19 pneumonia. Patient is currently on 12 liters at 40% with sats in the mid s. NO prior history of lung disease. She had some diarrhea earlier and was diagnosed with gastritis by her PCP. She then developed shortness of breath which is what brought her to the ED. Past History Past Medical History: diabetes, hypertension Medications and Allergies Allergies Allergy/AdvReac Type Severity Reaction Status Date / Time No Known Allergies Allergy Verified 07/31/18 07:06 Home Medications Medication Instructions Recorded Confirmed Last Taken Type Albuterol Mdi (or & Nicu Only) 2 puff IH QID PRN #1 inhalation 08/07/18 03/14/20 Unknown Rx [ProAir HFA Inhaler] Sucralfate [Carafate] 1 gm PO ACHS #30 tablet 08/07/18 03/14/20 03/13/20 Rx Insulin Regular, Human [HumuLIN R] 0 unit SQ AC #1 vial 08/11/18 03/14/20 Unknown Rx Labetalol HCl [Labetalol 300mg TAB] 300 mg PO BID #60 tablet 11/11/19 03/14/20 03/14/20 Rx Active Meds: Active Medications Albuterol (Albuterol 8.5 Gm Mdi Inhalation) 2 puff IH QID PRN PRN Reason: Shortness Of Breath Azithromycin (Azithromycin 250 Mg Tab) 500 mg PO QHS TERA Stop: 03/17/20 22:01 Dexamethasone (Dexamethasone 4 Mg/Ml Vial) 6 mg IV DAILY TERA Stop: 03/23/20 10:01 Famotidine (Famotidine 20 Mg Tab) 20 mg PO QAM TERA Heparin Sodium (Porcine) (Heparin 5,000 Unit/1 Ml Vial) 5,000 unit SUB-Q Q8HR TERA Last Admin: 03/14/20 06:02 Dose: 5,000 unit Documented by: Ceftriaxone Sodium (Rocephin/Ns 2 Gm/100 Ml) 2 gm in 100 mls @ 200 mls/hr IV Q24H TERA; Protocol Sodium Chloride (Nacl 0.9% 500 Ml) 500 mls @ 75 mls/hr IV DIRECT TERA Labetalol HCl (Labetalol 200 Mg Tab) 300 mg PO BID TERA Pantoprazole Sodium (Pantoprazole 40 Mg Tab) 40 mg PO QDAC TERA Sucralfate (Sucralfate 1 Gm Tab) 1 gm PO ACHS TERA Physical Examination Vital signs: Vital Signs Pulse Resp BP Pulse Ox 72 24 165/52 74 L 03/14/20 01:47 03/14/20 01:47 03/14/20 01:47 03/14/20 01:47 Patient not examined in person to preserve PPE during the global pandemic of COVID 19 Results - Laboratory Findings CBC and BMP: 03/14/20 05:40 03/14/20 02:52 PT/INR, D-dimer PT 13.6 Sec. (12.2-14.9) 03/14/20 02:52 INR 1.05 (0.87-1.13) 03/14/20 02:52 D-Dimer 845.52 ng/mlDDU (0-234) H 03/14/20 02:52 Abnormal lab findings: Abnormal Labs 03/14/20 03/14/20 03/14/20 02:52 02:52 02:52 RBC 3.40 L Hgb 9.4 L Hct 28.8 L RDW 15.6 H Lymph % (Auto) 6.2 L Lymph # (Auto) 0.6 L Seg Neutrophils % 87.6 H Seg Neutrophils # 8.2 H D-Dimer 845.52 H Sodium 131 L Carbon Dioxide 17 L BUN 44 H Creatinine 2.9 H Glucose 276 H Calcium 7.8 L Ferritin Lactate Dehydrogenase C-Reactive Protein NT-Pro-B Natriuret Pep Total Protein 5.5 L Albumin 2.8 L 03/14/20 03/14/20 03/14/20 02:52 02:52 05:40 RBC 3.57 L Hgb 9.9 L Hct RDW 15.9 H Lymph % (Auto) 4.5 L Lymph # (Auto) 0.5 L Seg Neutrophils % 91.9 H Seg Neutrophils # 9.2 H D-Dimer Sodium Carbon Dioxide BUN Creatinine Glucose Calcium Ferritin 273.0 H Lactate Dehydrogenase 413 H C-Reactive Protein 10.30 H NT-Pro-B Natriuret Pep 92366 H Total Protein Albumin 03/14/20 05:40 RBC Hgb Hct RDW Lymph % (Auto) Lymph # (Auto) Seg Neutrophils % Seg Neutrophils # D-Dimer Sodium Carbon Dioxide BUN Creatinine Glucose Calcium Ferritin Lactate Dehydrogenase C-Reactive Protein 11.90 H NT-Pro-B Natriuret Pep Total Protein Albumin - Diagnostic Findings Chest x-ray: report reviewed, image reviewed (unable to see image) Assessment and Plan 75 y/o female with acute respiratory failure secondary to COVID 19 pneumonia 1. Wean FiO2 for sats >88% 2. Prone as tolerated during the day and sleep prone at night if possible 3. Assess antibody status to see if patient would benefit from convalescent plasma 4. Agree with steroids for 10 days total 5. Patient does have chronic renal disease, but if possible would not give IVF. Need to keep these patients as dry as possible. Await renal follow up and recs 6. No aerosol therapy Guarded prognosis
[2020-03-14] MEDS ORDERED: dexAMETHasone 4 MG/ML VIAL IV SCH (10:00)
[2020-03-14] MEDS ORDERED: AZITHROMYCIN 500 MG in SODIUM CHLORIDE 0.9% 250ML 250 ML IV SCH (10:00)
[2020-03-14] MEDS ORDERED: FAMOTIDINE 20 MG TAB PO SCH (10:00)
[2020-03-14] MEDS: PANTOPRAZOLE 40 MG TAB PO SCH (11:24)
--- NOTE | 2020-03-14 11:44 | Consultation ---
History of Present Illness - Reason for Consult Consult date: 03/14/20 - History of Present Illness 75yr F c/o SOB & CXR revealed Pilateral Opacities consistent with COVID-19 Pneumonia. BUN/Cr 44/2.9 but prior renal status unknown Past History Past Medical History: diabetes, hypertension Social history: smoking, alcohol abuse, other (Pt with erratic respone) Family history: other (Difficult to obtain) Medications and Allergies Allergies Allergy/AdvReac Type Severity Reaction Status Date / Time No Known Allergies Allergy Verified 07/31/18 07:06 Home Medications Medication Instructions Recorded Confirmed Last Taken Type Albuterol Mdi (or & Nicu Only) 2 puff IH QID PRN #1 inhalation 08/07/18 03/14/20 Unknown Rx [ProAir HFA Inhaler] Sucralfate [Carafate] 1 gm PO ACHS #30 tablet 08/07/18 03/14/20 03/13/20 Rx Insulin Regular, Human [HumuLIN R] 0 unit SQ AC #1 vial 08/11/18 03/14/20 Unknown Rx Labetalol HCl [Labetalol 300mg TAB] 300 mg PO BID #60 tablet 11/11/19 03/14/20 03/14/20 Rx Active Meds: Active Medications Albuterol (Albuterol 8.5 Gm Mdi Inhalation) 2 puff IH QID PRN PRN Reason: Shortness Of Breath Azithromycin (Azithromycin 250 Mg Tab) 500 mg PO QHS TERA Stop: 03/17/20 22:01 Dexamethasone (Dexamethasone 4 Mg/Ml Vial) 6 mg IV DAILY TERA Stop: 03/23/20 10:01 Famotidine (Famotidine 20 Mg Tab) 20 mg PO QAM TERA Heparin Sodium (Porcine) (Heparin 5,000 Unit/1 Ml Vial) 5,000 unit SUB-Q Q8HR TERA Last Admin: 03/14/20 06:02 Dose: 5,000 unit Documented by: Ceftriaxone Sodium (Rocephin/Ns 2 Gm/100 Ml) 2 gm in 100 mls @ 200 mls/hr IV Q24H TERA; Protocol Sodium Chloride (Nacl 0.9% 500 Ml) 500 mls @ 75 mls/hr IV DIRECT TERA Labetalol HCl (Labetalol 200 Mg Tab) 300 mg PO BID TERA Pantoprazole Sodium (Pantoprazole 40 Mg Tab) 40 mg PO QDAC TERA Sucralfate (Sucralfate 1 Gm Tab) 1 gm PO ACHS TERA Review of Systems Constitutional: fatigue, no weight loss, no fever, no chills Cardiovascular: no chest pain, no orthopnea, no palpitations, no edema Respiratory: shortness of breath, no cough Gastrointestinal: no abdominal pain, no nausea, no vomiting, no diarrhea, no constipation Exam - Vital Signs Vital signs: Vital Signs Pulse Resp BP Pulse Ox 72 24 165/52 74 L 03/14/20 01:47 03/14/20 01:47 03/14/20 01:47 03/14/20 01:47 - General Appearance General appearance: well-developed, moderate distress (On O2 by N/c) EENT: mucous membranes moist, hearing intact, vision intact Neck: Present: neck supple. Absent: JVD/HJR Respiratory: Rales Heart: regular, S1S2 Gastrointestinal: Present: normal Neurologic: no focal deficit Results - Lab Results 03/14/20 05:40 03/14/20 02:52 Most recent lab results Calcium 7.8 mg/dL (8.4-10.2) L 03/14/20 02:52 Assessment and Plan FLORIDALMA (Acute Kidney Injury) - Likely prerenal azotemia 2/2 Dehydration R/o Acute on CKD - Currently Stage4. Possibly 2/2 HTN &/or DM HTN Electrolyte Imbalance - ?Hypovolemic HypoNa, A-G Metabolic Acidosis Plan: Spot Urine - UA/Micro, FENa, Prot/Cr ratio Renal u/s IVF with NS & f/u labs Review meds & adjust as necessary for better control Thanks very much, will f/u with you
[2020-03-14] MEDS ORDERED: SODIUM CHLORIDE 0.9% 1000 ML 1,000 ML IV SCH (12:15)
[2020-03-14] MEDS ORDERED: REMDESIVIR 200 MG in SODIUM CHLORIDE 0.9% 250ML 250 ML IV ONE (14:49)
[2020-03-14] MEDS ORDERED: FUROSEMIDE 40 MG/4 ML INJ IV ONE (14:56)
--- NOTE | 2020-03-14 15:40 | Progress Note ---
Assessment and Plan -- Acute renal failure superimposed on chronic kidney disease Likely due to vasomotor nephropathy Avoid nephrotoxic drug. Normal saline placed at the rate of 75 cc/h. We consulted nephrology for further evaluation and treatment. Recheck CBC BMP in the morning. -- Acute respiratory failure with hypoxia Due to COVID-19 pneumonia Patient currently on 6 L O2 DuoNeb by nebulizer every 4 hours as needed. Decadron 6 mg IV daily. Reconsult pulmonary as well as infectious disease for evaluation and treatment. We follow the inflammatory markers. --Diabetes mellitus type 2 Follow blood glucose with QACHS with SSI Consistent carb diet -- COVID-19 virus infection Start on dexamethasone, patient is not a candidate for remdesivir due to declining renal function DuoNeb by nebulizer every 4 hours as needed. Decadron 6 mg IV daily. Reconsult pulmonary as well as infectious disease for evaluation and treatment. We follow the inflammatory markers. --Morbid obesity, risks for poor outcome with COVID-19 Weight reduction diet and exercise when patient clinically more stable as outpatient --DVT prophylaxis, Heparin 5000 units subcu every 8 hours 03/14: Covid test is positive, started on dexamethasone. Will DC empiric antibiotics as procalcitonin level is normal. Follow ID recommendation, follow inflammatory markers. Patient is not a candidate for remdesivir due to declining renal function. Follow nephrology recommendation, monitor BMP Subjective Date of service: 03/14/20 Interval history: Patient seen and examined. Medical records and medication list reviewed. No acute event overnight noted by the RN. Patient complains of difficulty breathing even on resting. She is currently on 6 L nasal cannula Patient is tolerating diet. Patient tested positive for Covid Discussed plan of care at bedside with patient with a systolic mobile tonio editor [employer]. Objective - Exam Narrative Exam: Limited physical exam due to COVID-19 pandemic to minimize transmission of the disease. Vital reviewed and stable. GENERAL: well-developed morbidly obese elderly female on bed appeared to be in mild discomfort. HEENT: Normocephalic. Atraumatic. NECK: Supple. CHEST/LUNGS: breathing slightly labored with 6 L nasal cannula. HEART/CARDIOVASCULAR: Heart rate stable on telemetry ABDOMEN: Obese SKIN: There is no rash NEURO: No focal motor deficit. Follows command. MUSCULOSKELETAL: No joint effusion EXTRIMITY: No swelling, no cyanosis or clubbing. PSYCH: Cooperative. - Constitutional Vitals: Vital Signs - 12hr 03/14/20 03/14/20 03/14/20 03:45 04:00 04:31 Temperature Pulse Rate 70 71 70 Respiratory 31 H 35 H 28 H Rate Blood Pressure 145/79 197/82 139/85 Blood Pressure [Left] O2 Sat by Pulse 97 95 96 Oximetry 03/14/20 03/14/20 03/14/20 04:45 05:34 06:11 Temperature 97.5 F L 97.5 F L Pulse Rate 71 70 Respiratory 36 H 16 16 Rate Blood Pressure 139/85 172/56 Blood Pressure [Left] O2 Sat by Pulse 94 87 Oximetry 03/14/20 03/14/20 03/14/20 08:20 11:17 11:25 Temperature 98.3 F Pulse Rate 77 Respiratory 20 Rate Blood Pressure 190/70 Blood Pressure [Left] O2 Sat by Pulse 95 91 90 Oximetry 03/14/20 12:33 Temperature Pulse Rate 75 Respiratory 20 Rate Blood Pressure Blood Pressure 159/91 [Left] O2 Sat by Pulse 93 Oximetry - Labs CBC & Chem 7: 03/14/20 05:40 03/15/20 05:39 Labs: Abnormal lab results 03/14/20 03/14/20 03/14/20 Range/Units 02:52 02:52 02:52 RBC 3.40 L (3.65-5.03) M/mm3 Hgb 9.4 L (10.1-14.3) gm/dl Hct 28.8 L (30.3-42.9) % RDW 15.6 H (13.2-15.2) % Lymph % (Auto) 6.2 L (13.4-35.0) % Lymph # (Auto) 0.6 L (1.2-5.4) K/mm3 Seg Neutrophils % 87.6 H (40.0-70.0) % Seg Neutrophils # 8.2 H (1.8-7.7) K/mm3 D-Dimer 845.52 H (0-234) ng/mlDDU Sodium 131 L (137-145) mmol/L Carbon Dioxide 17 L (22-30) mmol/L BUN 44 H (7-17) mg/dL Creatinine 2.9 H (0.6-1.2) mg/dL Glucose 276 H (65-100) mg/dL Calcium 7.8 L (8.4-10.2) mg/dL Ferritin (10.0-200.0) ng/mL Lactate Dehydrogenase (91-180) units/L C-Reactive Protein (0.00-1.30) mg/dL NT-Pro-B Natriuret Pep (0-900) pg/mL Total Protein 5.5 L (6.3-8.2) g/dL Albumin 2.8 L (3.9-5) g/dL Coronavirus (PCR) (Negative) 03/14/20 03/14/20 03/14/20 Range/Units 02:52 02:52 05:40 RBC 3.57 L (3.65-5.03) M/mm3 Hgb 9.9 L (10.1-14.3) gm/dl Hct (30.3-42.9) % RDW 15.9 H (13.2-15.2) % Lymph % (Auto) 4.5 L (13.4-35.0) % Lymph # (Auto) 0.5 L (1.2-5.4) K/mm3 Seg Neutrophils % 91.9 H (40.0-70.0) % Seg Neutrophils # 9.2 H (1.8-7.7) K/mm3 D-Dimer (0-234) ng/mlDDU Sodium (137-145) mmol/L Carbon Dioxide (22-30) mmol/L BUN (7-17) mg/dL Creatinine (0.6-1.2) mg/dL Glucose (65-100) mg/dL Calcium (8.4-10.2) mg/dL Ferritin 273.0 H (10.0-200.0) ng/mL Lactate Dehydrogenase 413 H (91-180) units/L C-Reactive Protein 10.30 H (0.00-1.30) mg/dL NT-Pro-B Natriuret Pep 96517 H (0-900) pg/mL Total Protein (6.3-8.2) g/dL Albumin (3.9-5) g/dL Coronavirus (PCR) (Negative) 03/14/20 03/14/20 Range/Units 05:40 Unknown RBC (3.65-5.03) M/mm3 Hgb (10.1-14.3) gm/dl Hct (30.3-42.9) % RDW (13.2-15.2) % Lymph % (Auto) (13.4-35.0) % Lymph # (Auto) (1.2-5.4) K/mm3 Seg Neutrophils % (40.0-70.0) % Seg Neutrophils # (1.8-7.7) K/mm3 D-Dimer (0-234) ng/mlDDU Sodium (137-145) mmol/L Carbon Dioxide (22-30) mmol/L BUN (7-17) mg/dL Creatinine (0.6-1.2) mg/dL Glucose (65-100) mg/dL Calcium (8.4-10.2) mg/dL Ferritin (10.0-200.0) ng/mL Lactate Dehydrogenase (91-180) units/L C-Reactive Protein 11.90 H (0.00-1.30) mg/dL NT-Pro-B Natriuret Pep (0-900) pg/mL Total Protein (6.3-8.2) g/dL Albumin (3.9-5) g/dL Coronavirus (PCR) Positive A (Negative) HEART Score - HEART Score Troponin: Troponin T 0.013 ng/mL (0.00-0.029) 03/14/20 02:52
--- NOTE | 2020-03-14 16:55 | Consultation ---
History of Present Illness - Reason for Consult Consult date: 03/14/20 - History of Present Illness 75-year-old female past medical history hypertension, diabetes brought to emergency room because of shortness of breath. She also complained nausea and vomiting. Shortness of breath has been worsening since onset and now associated with cough. She denies any other symptoms such as fevers, chills, dysgeusia, myalgias. She denies any known exposures to Covid. Afebrile with a white count of 10. Covid positive. Procalcitonin 0.3 GFR 16. Blood cultures currently pending. She is currently on 6 L nasal cannula. Imaging personally reviewed: Chest x-ray: Bilateral pulmonary opacities Review of systems: Deferred due to PPE conservation strategy. Past History Past Medical History: diabetes, hypertension Social history: smoking, alcohol abuse, other (Pt with erratic respone) Family history: other (Difficult to obtain) Medications and Allergies Allergies Allergy/AdvReac Type Severity Reaction Status Date / Time No Known Allergies Allergy Verified 07/31/18 07:06 Home Medications Medication Instructions Recorded Confirmed Last Taken Type Albuterol Mdi (or & Nicu Only) 2 puff IH QID PRN #1 inhalation 08/07/18 03/14/20 Unknown Rx [ProAir HFA Inhaler] Sucralfate [Carafate] 1 gm PO ACHS #30 tablet 08/07/18 03/14/20 03/13/20 Rx Insulin Regular, Human [HumuLIN R] 0 unit SQ AC #1 vial 08/11/18 03/14/20 Unknown Rx Labetalol HCl [Labetalol 300mg TAB] 300 mg PO BID #60 tablet 11/11/19 03/14/20 03/14/20 Rx Active Meds: Active Medications Albuterol (Albuterol 8.5 Gm Mdi Inhalation) 2 puff IH QID PRN PRN Reason: Shortness Of Breath Dexamethasone (Dexamethasone 4 Mg/Ml Vial) 6 mg IV Q12HR TERA Stop: 03/18/20 22:01 Famotidine (Famotidine 20 Mg Tab) 20 mg PO QAM TERA Last Admin: 03/14/20 11:26 Dose: 20 mg Documented by: Heparin Sodium (Porcine) (Heparin 5,000 Unit/1 Ml Vial) 5,000 unit SUB-Q Q8HR TERA Last Admin: 03/14/20 16:27 Dose: 5,000 unit Documented by: Labetalol HCl (Labetalol 200 Mg Tab) 300 mg PO BID [facility] Last Admin: 03/14/20 11:25 Dose: 300 mg Documented by: Pantoprazole Sodium (Pantoprazole 40 Mg Tab) 40 mg PO QDAC [facility] Last Admin: 03/14/20 11:24 Dose: 40 mg Documented by: Sucralfate (Sucralfate 1 Gm Tab) 1 gm PO ACHS [facility] Last Admin: 03/14/20 16:27 Dose: 1 gm Documented by: Physical Examination - Physical Exam Narrative exam: Physical exam deferred due to PPE conservation strategy. Please refer to primary team's note. - Constitutional Vitals: Vital Signs Temp Pulse Resp BP Pulse Ox 98.3 F 75 20 159/91 93 03/14/20 11:17 03/14/20 12:33 03/14/20 12:33 03/14/20 12:33 03/14/20 12:33 Temperature -Last 24 Hours Temperature 98.3 F Temperature 97.5 F Temperature 97.5 F Temperature 98.6 F Results - Labs CBC & Chem 7: 03/14/20 05:40 03/14/20 02:52 Labs: Abnormal lab results 03/14/20 03/14/20 03/14/20 Range/Units 02:52 02:52 02:52 RBC 3.40 L (3.65-5.03) M/mm3 Hgb 9.4 L (10.1-14.3) gm/dl Hct 28.8 L (30.3-42.9) % RDW 15.6 H (13.2-15.2) % Lymph % (Auto) 6.2 L (13.4-35.0) % Lymph # (Auto) 0.6 L (1.2-5.4) K/mm3 Seg Neutrophils % 87.6 H (40.0-70.0) % Seg Neutrophils # 8.2 H (1.8-7.7) K/mm3 D-Dimer 845.52 H (0-234) ng/mlDDU Sodium 131 L (137-145) mmol/L Carbon Dioxide 17 L (22-30) mmol/L BUN 44 H (7-17) mg/dL Creatinine 2.9 H (0.6-1.2) mg/dL Glucose 276 H (65-100) mg/dL Calcium 7.8 L (8.4-10.2) mg/dL Ferritin (10.0-200.0) ng/mL Lactate Dehydrogenase (91-180) units/L C-Reactive Protein (0.00-1.30) mg/dL NT-Pro-B Natriuret Pep (0-900) pg/mL Total Protein 5.5 L (6.3-8.2) g/dL Albumin 2.8 L (3.9-5) g/dL Coronavirus (PCR) (Negative) 03/14/20 03/14/20 03/14/20 Range/Units 02:52 02:52 05:40 RBC 3.57 L (3.65-5.03) M/mm3 Hgb 9.9 L (10.1-14.3) gm/dl Hct (30.3-42.9) % RDW 15.9 H (13.2-15.2) % Lymph % (Auto) 4.5 L (13.4-35.0) % Lymph # (Auto) 0.5 L (1.2-5.4) K/mm3 Seg Neutrophils % 91.9 H (40.0-70.0) % Seg Neutrophils # 9.2 H (1.8-7.7) K/mm3 D-Dimer (0-234) ng/mlDDU Sodium (137-145) mmol/L Carbon Dioxide (22-30) mmol/L BUN (7-17) mg/dL Creatinine (0.6-1.2) mg/dL Glucose (65-100) mg/dL Calcium (8.4-10.2) mg/dL Ferritin 273.0 H (10.0-200.0) ng/mL Lactate Dehydrogenase 413 H (91-180) units/L C-Reactive Protein 10.30 H (0.00-1.30) mg/dL NT-Pro-B Natriuret Pep 73058 H (0-900) pg/mL Total Protein (6.3-8.2) g/dL Albumin (3.9-5) g/dL Coronavirus (PCR) (Negative) 03/14/20 03/14/20 Range/Units 05:40 Unknown RBC (3.65-5.03) M/mm3 Hgb (10.1-14.3) gm/dl Hct (30.3-42.9) % RDW (13.2-15.2) % Lymph % (Auto) (13.4-35.0) % Lymph # (Auto) (1.2-5.4) K/mm3 Seg Neutrophils % (40.0-70.0) % Seg Neutrophils # (1.8-7.7) K/mm3 D-Dimer (0-234) ng/mlDDU Sodium (137-145) mmol/L Carbon Dioxide (22-30) mmol/L BUN (7-17) mg/dL Creatinine (0.6-1.2) mg/dL Glucose (65-100) mg/dL Calcium (8.4-10.2) mg/dL Ferritin (10.0-200.0) ng/mL Lactate Dehydrogenase (91-180) units/L C-Reactive Protein 11.90 H (0.00-1.30) mg/dL NT-Pro-B Natriuret Pep (0-900) pg/mL Total Protein (6.3-8.2) g/dL Albumin (3.9-5) g/dL Coronavirus (PCR) Positive A (Negative) Assessment and Plan Cultures: Blood culture pending COVID-19 positive A/P: 75-year-old female past medical history hypertension, diabetes admitted with COVID-19 pneumonia #Severe COVID-19 pneumonia: Patient presented with a week of symptoms, chest x- ray with diffuse bilateral infiltrates. Inflammatory markers elevated #Acute hypoxemic respiratory failure: Likely secondary to COVID-19 infection. C urrently on 6 L nasal cannula #FLORIDALMA on CKD: Renally dose medications, not a candidate for remdesivir due to renal function. #Diabetes: tight glycemic control for best outcomes. Recs: -Dexamethasone 6 mg IV/PO daily for 10 days -Not a remdesivir candidate due to renal function -Okay to continue off antibiotics to normal procalcitonin. -Anticoagulation per hospital protocol -Proning as able -Obtain every 48 hour inflammatory markers Thank you for the consult, we will continue to follow. Joe Childress MD [facility] ([facility] O: [phone] F: [phone]
[2020-03-14] MEDS ORDERED: SODIUM CHLORIDE 0.9% 50 ML IVPB IV SCH (21:00)
[2020-03-14] MEDS ORDERED: cefTRIAXone/NS 2 GM/100 ML 2 GM/100 ML BAG IV SCH (22:00)
[2020-03-14] MEDS ORDERED: AZITHROMYCIN 250 MG TAB PO SCH (22:00)
[2020-03-14 22:52] LABS: Bacteria,Urine 1+ /HPF (Negative); Bilirubin,Urine NEG (Negative); Blood,Urine SM (Negative); Color,Urine Yellow (Yellow); Hyaline Casts,Urine 1 /LPF; Mucus,Urine FEW /HPF; RBC,Urine < 1.0 /HPF (0.0-6.0); Urobilinogen,Urine < 2.0 mg/dL (<2.0)
[2020-03-14 22:53] LABS: Protein,Urine >500 mg/dL (Negative)
[2020-03-14 22:55] LABS: Creatinine,Urine 89.5 mg/dL (0.1-20.0)
[2020-03-14] MEDS: dexAMETHasone 4 MG/ML VIAL IV SCH (23:05)
[2020-03-14 23:28] LABS: Protein/Creatinine Ratio,Urine 9.23
[2020-03-15] MEDS: HEPARIN 5,000 UNIT/1 ML VIAL SUB-Q SCH ×3 (06:02→21:30)
[2020-03-15 07:05] LABS: Calcium 8.8 mg/dL (8.4-10.2)
[2020-03-15] MEDS ORDERED: INSULIN REGULAR, HUMAN 100 UNIT/ML 3ML VIAL SUB-Q NR (09:15)
[2020-03-15] MEDS: PANTOPRAZOLE 40 MG TAB PO SCH (09:24)
[2020-03-15] MEDS: dexAMETHasone 4 MG/ML VIAL IV SCH (09:24)
[2020-03-15] MEDS: ZINC SULFATE 220 MG CAP PO SCH ×2 (09:24→21:28)
[2020-03-15] MEDS: SUCRALFATE 1 GM TAB PO SCH ×4 (09:24→21:29)
[2020-03-15] MEDS: ASCORBIC ACID 500 MG TAB PO SCH ×2 (09:25→21:29)
[2020-03-15] MEDS: CHOLECALCIFEROL (VIT D3) 5,000 UNIT TAB PO SCH (09:25)
[2020-03-15] MEDS: INSULIN REGULAR, HUMAN 100 UNIT/ML 3ML VIAL SUB-Q SCH ×5 (09:26→21:29)
[2020-03-15] MEDS: SODIUM CHLORIDE 0.9% 1000 ML 1,000 ML IV SCH ×2 (09:27→17:31)
[2020-03-15] MEDS ORDERED: INSULIN GLARGINE 100 UNITS/ML SUB-Q SCH (10:00)
--- NOTE | 2020-03-15 10:12 | Progress Note ---
Assessment and Plan 1. 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 Renal US ordered, pending. Monitor renal function. Decrease / stop IV fluids due to COVID PNA. Increase in the Creatinine level noted. Renal prognosis is guarded. Avoid nephrotoxic agents. Meds dosage based on GFR. Monitor for TECH[employer]CH[employer] needs. 2. FEN: Metabolic acidosis, PO Sodium bicarbonate. Hyponatremia, monitor. Monitor lytes. 3. Acute respiratory failure with hypoxia: Due to COVID-19 pneumonia. Patient currently on NC O2. DuoNeb by nebulizer every 4 hours as needed. Pulmonary consult. 4. COVID-19 virus infection: On Dexamethasone. Patient is not a candidate for remdesivir due to low GFR. ID consult. Follow the inflammatory markers. 5. Diabetes mellitus type 2: Follow blood glucose with QACHS with SSI. Consistent carb diet. 6. Hypertension: Monitor BP. 7. Anemia, POA: Monitor. Subjective: Patient was seen and examined at the bedside. Language barrier. Examination: General appearance: well-developed, well-nourished, appears stated age, obese, no distress HEENT: ATNC, ARUNA, vision intact Neck: supple Respiratory: rales heard Cardiology: regular, S1S2, no murmur Gastrointestinal: normoactive bowel sounds, no tenderness, not distended, obese Integumentary: no rash, warm and dry Neurologic: able to move extremities Ext: no edema Subjective Date of service: 03/15/20 Objective - Vital Signs Vital signs: Vital Signs - 12hr 03/14/20 03/15/20 03/15/20 22:31 02:47 04:22 Temperature 98.8 F 98.2 F Pulse Rate 73 73 Respiratory 17 17 Rate Blood Pressure 171/58 175/58 O2 Sat by Pulse 90 98 85 Oximetry - Lab 03/14/20 05:40 03/15/20 05:39 Most recent lab results Calcium 8.8 mg/dL (8.4-10.2) 03/15/20 05:39 Phosphorus 3.20 mg/dL (2.5-4.5) 03/15/20 05:39 Magnesium 2.00 mg/dL (1.7-2.3) 03/15/20 05:39 Urine Creatinine 89.5 mg/dL (0.1-20.0) H 03/14/20 Unknown Urine Total Protein 826 mg/dL (5-11.8) H 03/14/20 Unknown Medications & Allergies - Medications Allergies/Adverse Reactions: Allergies No Known Allergies Allergy (Verified 07/31/18 07:06) Home Medications: Home Medications Medication Instructions Recorded Confirmed Last Taken Type Albuterol Mdi (or & Nicu Only) 2 puff IH QID PRN #1 inhalation 08/07/18 03/14/20 Unknown Rx [ProAir HFA Inhaler] Sucralfate [Carafate] 1 gm PO ACHS #30 tablet 08/07/18 03/14/20 03/13/20 Rx Insulin Regular, Human [HumuLIN R] 0 unit SQ AC #1 vial 08/11/18 03/14/20 Un known Rx Labetalol HCl [Labetalol 300mg TAB] 300 mg PO BID #60 tablet 11/11/19 03/14/20 03/14/20 Rx Active Medications: Generic Name Dose Route Start Last Admin Trade Name Freq PRN Reason Stop Dose Admin Albuterol 2 puff 03/14/20 04:19 Albuterol 8.5 Gm Mdi Inhalation IH QID PRN Shortness Of Breath Ascorbic Acid 1,000 mg 03/15/20 10:00 03/15/20 09:25 Ascorbic Acid 500 Mg Tab PO 1,000 mg BID TERA Administration Cholecalciferol 5,000 unit 03/15/20 10:00 03/15/20 09:25 Cholecalciferol (Vit D3) 5,000 Unit Tab PO 5,000 unit DAILY TERA Administration Dexamethasone 6 mg 03/14/20 22:00 03/15/20 09:24 Dexamethasone 4 Mg/Ml Vial IV 03/18/20 22:01 6 mg Q12HR TERA Administration Heparin Sodium (Porcine) 5,000 unit 03/14/20 06:00 03/15/20 06:02 Heparin 5,000 Unit/1 Ml Vial SUB-Q 5,000 unit Q8HR TERA Administration Sodium Chloride 1,000 mls @ 100 mls/hr 03/15/20 09:15 03/15/20 09:27 Nacl 0.9% 1000 Ml IV 100 mls/hr DIRECT TERA Administration Insulin Glargine 10 units 03/15/20 10:00 Insulin Glargine 100 Units/Ml SUB-Q QAM TERA Insulin Human Regular 0 unit 03/15/20 11:30 03/15/20 09:26 Insulin Regular, Human 100 Unit/Ml 3ml Vial SUB-Q 10 unit ACHS TERA Administration Protocol Insulin Human Regular 10 unit 03/15/20 09:15 03/15/20 09:26 Insulin Regular, Human 100 Unit/Ml 3ml Vial SUB-Q 03/15/20 12:00 10 unit ONCE@0915 NR Administration Labetalol HCl 300 mg 03/14/20 10:00 03/15/20 09:24 Labetalol 200 Mg Tab PO 300 mg BID TERA Administration Pantoprazole Sodium 40 mg 03/14/20 07:30 03/15/20 09:24 Pantoprazole 40 Mg Tab PO 40 mg QDAC TERA Administration Sucralfate 1 gm 03/14/20 07:30 03/15/20 09:24 Sucralfate 1 Gm Tab PO 1 gm ACHS TERA Administration Zinc Sulfate 220 mg 03/15/20 10:00 03/15/20 09:24 Zinc Sulfate 220 Mg Cap PO 220 mg BID TERA Administration
--- NOTE | 2020-03-15 13:05 | Progress Note ---
Assessment and Plan -- Acute renal failure superimposed on chronic kidney disease Likely due to vasomotor nephropathy Avoid nephrotoxic drug. Normal saline placed at the rate of 75 cc/h. We consulted nephrology for further evaluation and treatment. Recheck CBC BMP in the morning. -- Acute respiratory failure with hypoxia Due to COVID-19 pneumonia Patient currently on 6 L O2 DuoNeb by nebulizer every 4 hours as needed. Decadron 6 mg IV daily. Reconsult pulmonary as well as infectious disease for evaluation and treatment. We follow the inflammatory markers. As needed IV Lasix to prevent pulmonary edema --Diabetes mellitus type 2 Follow blood glucose with QACHS with SSI Consistent carb diet, will add long-acting insulin -- COVID-19 virus infection Start on dexamethasone, patient is not a candidate for remdesivir due to declining renal function DuoNeb by nebulizer every 4 hours as needed. Decadron 6 mg IV daily. Reconsult pulmonary as well as infectious disease for evaluation and treatment. We follow the inflammatory markers. --Morbid obesity, risks for poor outcome with COVID-19 Weight reduction diet and exercise when patient clinically more stable as outpatient --DVT prophylaxis, Heparin 5000 units subcu every 8 hours 03/14: Covid test is positive, started on dexamethasone. Will DC empiric antibiotics as procalcitonin level is normal. Follow ID recommendation, follow inflammatory markers. Patient is not a candidate for remdesivir due to declining renal function. Follow nephrology recommendation, monitor BMP 03/15; blood glucose greater than 400 today, started on long-acting and premeal insulin along with sliding scale. patient WAS ON 40L VENTIM[place] THIS AM, now on 12 L high flow O2 today, will follow pulmonary recommendation. Continue Decadron, follow inflammatory markers, follow BMP, check A1c Subjective Date of service: 03/15/20 Interval history: Patient seen and examined. Medical records and medication list reviewed. No acute event overnight noted by the RN. Patient complains of difficulty breathing even on resting. She is currently on 12 L nasal cannula Patient is tolerating diet. 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 Objective - Exam Narrative Exam: Limited physical exam due to COVID-19 pandemic to minimize transmission of the disease. Vital reviewed and stable. GENERAL: well-developed morbidly obese elderly female on bed appeared to be in mild discomfort. HEENT: Normocephalic. Atraumatic. NECK: Supple. CHEST/LUNGS: breathing slightly labored with 12 L nasal cannula. HEART/CARDIOVASCULAR: Heart rate stable on telemetry ABDOMEN: Obese SKIN: There is no rash NEURO: No focal motor deficit. Follows command. MUSCULOSKELETAL: No joint effusion EXTRIMITY: No swelling, no cyanosis or clubbing. PSYCH: Cooperative. - Constitutional Vitals: Vital Signs - 12hr 03/15/20 03/15/20 03/15/20 02:47 04:22 10:27 Temperature 98.2 F 98.6 F Pulse Rate 73 79 Respiratory 17 18 Rate Blood Pressure 175/58 176/68 O2 Sat by Pulse 98 85 91 Oximetry - Labs CBC & Chem 7: 03/14/20 05:40 03/16/20 04:15 Labs: Abnormal lab results 03/14/20 03/14/20 03/15/20 Range/Units Unknown Unknown 05:39 Sodium 134 L (137-145) mmol/L Carbon Dioxide 15 L (22-30) mmol/L BUN 64 H (7-17) mg/dL Creatinine 3.5 H (0.6-1.2) mg/dL Glucose 532 H* (65-100) mg/dL POC Glucose (70-105) mg/dL Urine Creatinine 89.5 H (0.1-20.0) mg/dL Urine Total Protein 826 H (5-11.8) mg/dL Coronavirus (PCR) Positive A (Negative) 03/15/20 Range/Units 12:07 Sodium (137-145) mmol/L Carbon Dioxide (22-30) mmol/L BUN (7-17) mg/dL Creatinine (0.6-1.2) mg/dL Glucose (65-100) mg/dL POC Glucose 504 H (70-105) mg/dL Urine Creatinine (0.1-20.0) mg/dL Urine Total Protein (5-11.8) mg/dL Coronavirus (PCR) (Negative) HEART Score - HEART Score Troponin: Troponin T 0.013 ng/mL (0.00-0.029) 03/14/20 02:52
--- NOTE | 2020-03-15 13:22 | Progress Note ---
Assessment and Plan Cultures: Blood culture pending COVID-19 positive A/P: 75-year-old female past medical history hypertension, diabetes admitted with COVID-19 pneumonia #Severe COVID-19 pneumonia: Patient presented with a week of symptoms, chest x- ray with diffuse bilateral infiltrates. Inflammatory markers elevated #Acute hypoxemic respiratory failure: Likely secondary to COVID-19 infection. Currently on 8 L nasal cannula #FLORIDALMA on CKD: Renally dose medications, not a candidate for remdesivir due to renal function. #Diabetes: tight glycemic control for best outcomes. Recs: -Dexamethasone 6 mg IV/PO daily for 10 days -Not a remdesivir candidate due to renal function -Anticoagulation per hospital protocol -Proning as able -Obtain every 48 hour inflammatory markers Thank you for the consult, we will continue to follow. Joe Childress MD [facility] O: [phone] F: [phone] Subjective Date of service: 03/15/20 Interval history: Afebrile, normal white count. Currently on 8 L nasal cannula Objective - Exam Narrative Exam: Physical exam deferred due to PPE conservation strategy. Please refer to primary team's note. - Constitutional Vitals: Vital Signs Temp Pulse Resp BP Pulse Ox 98.6 F 79 18 176/68 91 03/15/20 10:27 03/15/20 10:27 03/15/20 10:27 03/15/20 10:27 03/15/20 10:27 Temperature -Last 24 Hours Temperature 98.6 F Temperature 98.2 F Temperature 98.8 F Temperature 99.5 F - Labs CBC & Chem 7: 03/14/20 05:40 03/15/20 05:39 Labs: Abnormal lab results 03/14/20 03/14/20 03/15/20 Range/Units Unknown Unknown 05:39 Sodium 134 L (137-145) mmol/L Carbon Dioxide 15 L (22-30) mmol/L BUN 64 H (7-17) mg/dL Creatinine 3.5 H (0.6-1.2) mg/dL Glucose 532 H* (65-100) mg/dL POC Glucose (70-105) mg/dL Urine Creatinine 89.5 H (0.1-20.0) mg/dL Urine Total Protein 826 H (5-11.8) mg/dL Coronavirus (PCR) Positive A (Negative) 03/15/20 Range/Units 12:07 Sodium (137-145) mmol/L Carbon Dioxide (22-30) mmol/L BUN (7-17) mg/dL Creatinine (0.6-1.2) mg/dL Glucose (65-100) mg/dL POC Glucose 504 H (70-105) mg/dL Urine Creatinine (0.1-20.0) mg/dL Urine Total Protein (5-11.8) mg/dL Coronavirus (PCR) (Negative)
--- NOTE | 2020-03-15 13:53 | Progress Note ---
Assessment and Plan 75 y/o female with acute respiratory failure secondary to COVID 19 pneumonia 03/15/20: No new recs from today, please see below. 1. Wean FiO2 for sats >88% 2. Prone as tolerated during the day and sleep prone at night if possible 3. Assess antibody status to see if patient would benefit from convalescent plasma 4. Agree with steroids for 10 days total 5. Patient does have chronic renal disease, but if possible would not give IVF. Need to keep these patients as dry as possible. Await renal follow up and recs 6. No aerosol therapy Guarded prognosis Subjective Date of service: 03/15/20 Interval history: No acute events. Weaned down to 8 liters. Objective Vital Signs - 12hr 03/15/20 03/15/20 03/15/20 02:47 04:22 10:27 Temperature 98.2 F 98.6 F Pulse Rate 73 79 Respiratory 17 18 Rate Blood Pressure 175/58 176/68 O2 Sat by Pulse 98 85 91 Oximetry CBC and BMP: 03/14/20 05:40 03/15/20 05:39 ABG, PT/INR, D-dimer: PT/INR, D-dimer PT 13.6 Sec. (12.2-14.9) 03/14/20 02:52 INR 1.05 (0.87-1.13) 03/14/20 02:52 D-Dimer 845.52 ng/mlDDU (0-234) H 03/14/20 02:52 Abnormal lab findings: Abnormal Labs 03/14/20 03/14/20 03/14/20 02:52 02:52 02:52 RBC 3.40 L Hgb 9.4 L Hct 28.8 L RDW 15.6 H Lymph % (Auto) 6.2 L Lymph # (Auto) 0.6 L Seg Neutrophils % 87.6 H Seg Neutrophils # 8.2 H D-Dimer 845.52 H Sodium 131 L Carbon Dioxide 17 L BUN 44 H Creatinine 2.9 H Glucose 276 H POC Glucose Calcium 7.8 L Ferritin Lactate Dehydrogenase C-Reactive Protein NT-Pro-B Natriuret Pep Total Protein 5.5 L Albumin 2.8 L Urine Creatinine Urine Total Protein Coronavirus (PCR) 03/14/20 03/14/20 03/14/20 02:52 02:52 05:40 RBC 3.57 L Hgb 9.9 L Hct RDW 15.9 H Lymph % (Auto) 4.5 L Lymph # (Auto) 0.5 L Seg Neutrophils % 91.9 H Seg Neutrophils # 9.2 H D-Dimer Sodium Carbon Dioxide BUN Creatinine Glucose POC Glucose Calcium Ferritin 273.0 H Lactate Dehydrogenase 413 H C-Reactive Protein 10.30 H NT-Pro-B Natriuret Pep 28955 H Total Protein Albumin Urine Creatinine Urine Total Protein Coronavirus (PCR) 03/14/20 03/14/20 03/14/20 05:40 Unknown Unknown RBC Hgb Hct RDW Lymph % (Auto) Lymph # (Auto) Seg Neutrophils % Seg Neutrophils # D-Dimer Sodium Carbon Dioxide BUN Creatinine Glucose POC Glucose Calcium Ferritin Lactate Dehydrogenase C-Reactive Protein 11.90 H NT-Pro-B Natriuret Pep Total Protein Albumin Urine Creatinine 89.5 H Urine Total Protein 826 H Coronavirus (PCR) Positive A 03/15/20 03/15/20 05:39 12:07 RBC Hgb Hct RDW Lymph % (Auto) Lymph # (Auto) Seg Neutrophils % Seg Neutrophils # D-Dimer Sodium 134 L Carbon Dioxide 15 L BUN 64 H Creatinine 3.5 H Glucose 532 H* POC Glucose 504 H Calcium Ferritin Lactate Dehydrogenase C-Reactive Protein NT-Pro-B Natriuret Pep Total Protein Albumin Urine Creatinine Urine Total Protein Coronavirus (PCR)
[2020-03-15] MEDS ORDERED: INSULIN GLARGINE 100 UNITS/ML SUB-Q ONE (17:00)
[2020-03-15] MEDS ORDERED: REMDESIVIR 100 MG in SODIUM CHLORIDE 0.9% 250ML 250 ML IV SCH (21:00)
[2020-03-15] MEDS: SODIUM BICARBONATE 650 MG TAB PO SCH (21:28)
[2020-03-16] MEDS: HEPARIN 5,000 UNIT/1 ML VIAL SUB-Q SCH ×3 (05:57→21:15)
[2020-03-16 06:36] LABS: Calcium 8.2 mg/dL (8.4-10.2)
[2020-03-16] MEDS: INSULIN REGULAR, HUMAN 100 UNIT/ML 3ML VIAL SUB-Q SCH ×7 (09:12→23:16)
[2020-03-16] MEDS: INSULIN GLARGINE 100 UNITS/ML SUB-Q SCH (09:12)
[2020-03-16] MEDS: SODIUM BICARBONATE 650 MG TAB PO SCH ×3 (09:12→21:10)
[2020-03-16] MEDS: CHOLECALCIFEROL (VIT D3) 5,000 UNIT TAB PO SCH (09:12)
[2020-03-16] MEDS: ASCORBIC ACID 500 MG TAB PO SCH ×2 (09:13→21:13)
[2020-03-16] MEDS: SUCRALFATE 1 GM TAB PO SCH ×4 (09:13→21:13)
[2020-03-16] MEDS: PANTOPRAZOLE 40 MG TAB PO SCH (09:13)
[2020-03-16] MEDS: ZINC SULFATE 220 MG CAP PO SCH ×2 (09:14→21:13)
--- NOTE | 2020-03-16 09:48 | Progress Note ---
Assessment and Plan 1. 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 Renal US ordered, pending. Nephrotic range proteinuria. Monitor renal function. Decrease / stop IV fluids due to COVID PNA. Increase in the Creatinine level noted. Renal prognosis is guarded. Avoid nephrotoxic agents. Meds dosage based on GFR. 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 2. FEN: Hyperkalemia, meds ordered. Metabolic acidosis, PO Sodium bicarbonate. Hyponatremia, improved, monitor. Diuretics as needed. Monitor lytes. 3. Acute respiratory failure with hypoxia: Due to COVID-19 pneumonia. Patient currently on NC O2. DuoNeb by nebulizer every 4 hours as needed. Followed by Pulmonary. 4. COVID-19 virus infection: On Dexamethasone. Patient is not a candidate for Remdesivir due to low GFR. Followed by ID. Follow the inflammatory markers. 5. Diabetes mellitus type 2: Follow blood glucose with QACHS with SSI. Consistent carb diet. 6. Hypertension: Monitor BP. 7. Anemia, POA: Monitor. Subjective: Patient was seen and examined at the bedside. Language barrier. Examination: General appearance: well-developed, well-nourished, appears stated age, obese, no distress HEENT: ATNC, ARUNA, vision intact Neck: supple Respiratory: faint rales heard Cardiology: regular, S1S2, no murmur Gastrointestinal: normoactive bowel sounds, no tenderness, not distended, obese Integumentary: no rash, warm and dry Neurologic: able to move extremities Ext: no edema Subjective Date of service: 03/16/20 Objective - Vital Signs Vital signs: Vital Signs - 12hr 03/15/20 03/15/20 03/15/20 22:00 23:00 23:34 Temperature Pulse Rate Respiratory 19 Rate Respiratory 18 Rate [Abdomen] Blood Pressure O2 Sat by Pulse 93 Oximetry 03/16/20 03/16/20 05:28 08:21 Temperature 97.5 F L Pulse Rate 69 Respiratory 20 Rate Respiratory Rate [Abdomen] Blood Pressure 178/67 O2 Sat by Pulse 90 94 Oximetry - Lab 03/14/20 05:40 03/16/20 04:15 Most recent lab results Calcium 8.2 mg/dL (8.4-10.2) L 03/16/20 04:15 Phosphorus 3.20 mg/dL (2.5-4.5) 03/15/20 05:39 Magnesium 2.00 mg/dL (1.7-2.3) 03/15/20 05:39 Urine Creatinine 89.5 mg/dL (0.1-20.0) H 03/14/20 Unknown Urine Total Protein 826 mg/dL (5-11.8) H 03/14/20 Unknown Medications & Allergies - Medications Allergies/Adverse Reactions: Allergies No Known Allergies Allergy (Verified 07/31/18 07:06) Home Medications: Home Medications Medication Instructions Recorded Confirmed Last Taken Type Albuterol Mdi (or & Nicu Only) 2 puff IH QID PRN #1 inhalation 08/07/18 03/14/20 Unknown Rx [ProAir HFA Inhaler] Sucralfate [Carafate] 1 gm PO ACHS #30 tablet 08/07/18 03/14/20 03/13/20 Rx Insulin Regular, Human [HumuLIN R] 0 unit SQ AC #1 vial 08/11/18 03/14/20 Unknown Rx Labetalol HCl [Labetalol 300mg TAB] 300 mg PO BID #60 tablet 11/11/19 03/14/20 03/14/20 Rx Active Medications: Generic Name Dose Route Start Last Admin Trade Name Freq PRN Reason Stop Dose Admin Albuterol 2 puff 03/14/20 04:19 Albuterol 8.5 Gm Mdi Inhalation IH QID PRN Shortness Of Breath Amlodipine Besylate 10 mg 03/16/20 10:00 Amlodipine 10 Mg Tab PO QDAY [facility] Ascorbic Acid 1,000 mg 03/15/20 10:00 03/16/20 09:13 Ascorbic Acid 500 Mg Tab PO 1,000 mg BID TERA Administration Carvedilol 6.25 mg 03/16/20 10:00 Carvedilol 6.25 Mg Tab PO BID TERA Cholecalciferol 5,000 unit 03/15/20 10:00 03/16/20 09:12 Cholecalciferol (Vit D3) 5,000 Unit Tab PO 5,000 unit DAILY TERA Administration Dexamethasone 6 mg 03/16/20 10:00 03/16/20 09:12 Dexamethasone 4 Mg/Ml Vial IV 03/16/20 14:00 6 mg Q24HR TERA Administration Dexamethasone 6 mg 03/17/20 10:00 Dexamethasone 4 Mg Tab PO 03/23/20 12:00 DAILY TERA Heparin Sodium (Porcine) 5,000 unit 03/14/20 06:00 03/16/20 05:57 Heparin 5,000 Unit/1 Ml Vial SUB-Q 5,000 unit Q8HR TERA Administration Hydralazine HCl 5 mg 03/16/20 09:43 Hydralazine 20 Mg/1 Ml Inj IV Q4HR PRN Hypertension Insulin Glargine 25 units 03/15/20 16:42 03/16/20 09:12 Insulin Glargine 100 Units/Ml SUB-Q 25 units QAM TERA Administration Insulin Human Regular 0 unit 03/15/20 11:30 03/16/20 09:12 Insulin Regular, Human 100 Unit/Ml 3ml Vial SUB-Q 6 unit ACHS TERA Administration Protocol Insulin Human Regular 10 unit 03/16/20 07:30 03/16/20 09:14 Insulin Regular, Human 100 Unit/Ml 3ml Vial SUB-Q 10 unit AC TERA Administration Labetalol HCl 300 mg 03/14/20 10:00 03/16/20 09:13 Labetalol 200 Mg Tab PO 300 mg BID TERA Administration Pantoprazole Sodium 40 mg 03/14/20 07:30 03/16/20 09:13 Pantoprazole 40 Mg Tab PO 40 mg QDAC TERA Administration Sodium Bicarbonate 650 mg 03/15/20 20:00 03/16/20 09:12 Sodium Bicarbonate 650 Mg Tab PO 650 mg TID TERA Administration Sucralfate 1 gm 03/14/20 07:30 03/16/20 09:13 Sucralfate 1 Gm Tab PO 1 gm ACHS TERA Administration Zinc Sulfate 220 mg 03/15/20 10:00 03/16/20 09:14 Zinc Sulfate 220 Mg Cap PO 220 mg BID TERA Administration
[2020-03-16] MEDS ORDERED: SODIUM POLYSTYRENE 15 GM/60 ML ORAL LIQD PO ONE (09:52)
[2020-03-16] MEDS ORDERED: SODIUM BICARB 8.4% 50 MEQ/50 ML SYRINGE IV NR (10:00)
[2020-03-16] MEDS ORDERED: DEXAMETHASONE 4 MG TAB PO SCH (10:00)
[2020-03-16] MEDS ORDERED: dexAMETHasone 4 MG/ML VIAL IV SCH (10:00)
[2020-03-16] MEDS ORDERED: SODIUM POLYSTYRENE 15 GM/60 ML ORAL LIQD PO NR (10:00)
[2020-03-16] MEDS ORDERED: FUROSEMIDE 40 MG/4 ML INJ IV NR (10:00)
[2020-03-16] MEDS: carvediloL 6.25 MG TAB PO SCH ×2 (10:18→21:13)
[2020-03-16] MEDS: amLODIPine 10 MG TAB PO SCH (10:18)
--- NOTE | 2020-03-16 12:01 | Progress Note ---
Assessment and Plan 75 y/o female with acute respiratory failure secondary to COVID 19 pneumonia 03/16/20: Continue to wean FiO2 for sats >88%. Still would consider checking antibodies to see if reactive and if patient would qualify for plasma therapy. 03/15/20: No new recs from today, please see below. 1. Wean FiO2 for sats >88% 2. Prone as tolerated during the day and sleep prone at night if possible 3. Assess antibody status to see if patient would benefit from convalescent plasma 4. Agree with steroids for 10 days total 5. Patient does have chronic renal disease, but if possible would not give IVF. Need to keep these patients as dry as possible. Await renal follow up and recs 6. No aerosol therapy Guarded prognosis Subjective Date of service: 03/16/20 Interval history: Down to 8 liters now. Sats in the mid 90's. No other acute events noted. Objective Vital Signs - 12hr 03/16/20 03/16/20 05:28 08:21 Temperature 97.5 F L Pulse Rate 69 Respiratory 20 Rate Blood Pressure 178/67 O2 Sat by Pulse 90 94 Oximetry CBC and BMP: 03/14/20 05:40 03/16/20 04:15 ABG, PT/INR, D-dimer: PT/INR, D-dimer PT 13.6 Sec. (12.2-14.9) 03/14/20 02:52 INR 1.05 (0.87-1.13) 03/14/20 02:52 D-Dimer 845.52 ng/mlDDU (0-234) H 03/14/20 02:52 Abnormal lab findings: Abnormal Labs 03/14/20 03/14/20 03/14/20 02:52 02:52 02:52 RBC 3.40 L Hgb 9.4 L Hct 28.8 L RDW 15.6 H Lymph % (Auto) 6.2 L Lymph # (Auto) 0.6 L Seg Neutrophils % 87.6 H Seg Neutrophils # 8.2 H D-Dimer 845.52 H Sodium 131 L Potassium Chloride Carbon Dioxide 17 L BUN 44 H Creatinine 2.9 H Glucose 276 H POC Glucose Hemoglobin A1c Calcium 7.8 L Ferritin Lactate Dehydrogenase C-Reactive Protein NT-Pro-B Natriuret Pep Total Protein 5.5 L Albumin 2.8 L Urine Creatinine Urine Total Protein Coronavirus (PCR) 03/14/20 03/14/20 03/14/20 02:52 02:52 05:40 RBC 3.57 L Hgb 9.9 L Hct RDW 15.9 H Lymph % (Auto) 4.5 L Lymph # (Auto) 0.5 L Seg Neutrophils % 91.9 H Seg Neutrophils # 9.2 H D-Dimer Sodium Potassium Chloride Carbon Dioxide BUN Creatinine Glucose POC Glucose Hemoglobin A1c Calcium Ferritin 273.0 H Lactate Dehydrogenase 413 H C-Reactive Protein 10.30 H NT-Pro-B Natriuret Pep 11143 H Total Protein Albumin Urine Creatinine Urine Total Protein Coronavirus (PCR) 03/14/20 03/14/20 03/14/20 05:40 Unknown Unknown RBC Hgb Hct RDW Lymph % (Auto) Lymph # (Auto) Seg Neutrophils % Seg Neutrophils # D-Dimer Sodium Potassium Chloride Carbon Dioxide BUN Creatinine Glucose POC Glucose Hemoglobin A1c Calcium Ferritin Lactate Dehydrogenase C-Reactive Protein 11.90 H NT-Pro-B Natriuret Pep Total Protein Albumin Urine Creatinine 89.5 H Urine Total Protein 826 H Coronavirus (PCR) Positive A 03/15/20 03/15/20 03/15/20 05:39 12:07 14:31 RBC Hgb Hct RDW Lymph % (Auto) Lymph # (Auto) Seg Neutrophils % Seg Neutrophils # D-Dimer Sodium 134 L Potassium Chloride Carbon Dioxide 15 L BUN 64 H Creatinine 3.5 H Glucose 532 H* POC Glucose 504 H Hemoglobin A1c 8.0 H Calcium Ferritin Lactate Dehydrogenase C-Reactive Protein NT-Pro-B Natriuret Pep Total Protein Albumin Urine Creatinine Urine Total Protein Coronavirus (PCR) 03/15/20 03/15/20 03/16/20 15:25 21:15 04:15 RBC Hgb Hct RDW Lymph % (Auto) Lymph # (Auto) Seg Neutrophils % Seg Neutrophils # D-Dimer Sodium Potassium 5.2 H Chloride 108.5 H Carbon Dioxide 15 L BUN 75 H Creatinine 3.6 H Glucose 305 H POC Glucose 528 H 438 H Hemoglobin A1c Calcium 8.2 L Ferritin Lactate Dehydrogenase C-Reactive Protein NT-Pro-B Natriuret Pep Total Protein Albumin Urine Creatinine Urine Total Protein Coronavirus (PCR) 03/16/20 03/16/20 08:05 11:29 RBC Hgb Hct RDW Lymph % (Auto) Lymph # (Auto) Seg Neutrophils % Seg Neutrophils # D-Dimer Sodium Potassium Chloride Carbon Dioxide BUN Creatinine Glucose POC Glucose 262 H 255 H Hemoglobin A1c Calcium Ferritin Lactate Dehydrogenase C-Reactive Protein NT-Pro-B Natriuret Pep Total Protein Albumin Urine Creatinine Urine Total Protein Coronavirus (PCR)
--- NOTE | 2020-03-16 12:18 | Progress Note ---
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 s/p gentle iv fluid but now d/aron We consulted nephrology for further evaluation and treatment. Recheck CBC BMP in the morning. -- Acute respiratory failure with hypoxia Due to COVID-19 pneumonia Patient currently on 6 L O2 DuoNeb by nebulizer every 4 hours as needed. Decadron 6 mg IV daily. Reconsult pulmonary as well as infectious disease for evaluation and treatment. We follow the inflammatory markers. As needed IV Lasix to prevent pulmonary edema --Diabetes mellitus type 2 Follow blood glucose with QACHS with SSI Consistent carb diet, will add long-acting insulin -- COVID-19 virus infection Start on dexamethasone, patient is not a candidate for remdesivir due to declining renal function DuoNeb by nebulizer every 4 hours as needed. Decadron 6 mg IV daily. Reconsult pulmonary as well as infectious disease for evaluation and treatment. We follow the inflammatory markers. --Morbid obesity, risks for poor outcome with COVID-19 Weight reduction diet and exercise when patient clinically more stable as outpatient --DVT prophylaxis, Heparin 5000 units subcu every 8 hours Daily course: 03/14: Covid test is positive, started on dexamethasone. Will DC empiric antibiotics as procalcitonin level is normal. Follow ID recommendation, follow inflammatory markers. Patient is not a candidate for remdesivir due to declining renal function. Follow nephrology recommendation, monitor BMP 03/15; blood glucose greater than 400 today, started on long-acting and premeal insulin along with sliding scale. patient WAS ON 40L [place] THIS AM, now on 12 L high flow O2 today, will follow pulmonary recommendation. Continue Decadron, follow inflammatory markers, follow BMP, check A1c 03/16: Patient today on 8L O2, cont to follow inflammatory markers. Continue Decadron, minimize iv fluid trnsfusion. follow bmp. Subjective Date of service: 03/16/20 Interval history: Patient seen and examined. Medical records and medication list reviewed. No acute event overnight noted by the RN. Patient complains of difficulty breathing even on resting. She is currently on 8 L nasal cannula Patient is tolerating diet. Patient tested positive for Covid Discussed plan of care at bedside with patient with a mobile [employer] front desk clerk. Objective - Exam Narrative Exam: Limited physical exam due to COVID-19 pandemic to minimize transmission of the disease. Vital reviewed and stable. GENERAL: well-developed morbidly obese elderly female on bed appeared to be in mild discomfort. HEENT: Normocephalic. Atraumatic. NECK: Supple. CHEST/LUNGS: breathing slightly labored with 12 L nasal cannula. HEART/CARDIOVASCULAR: Heart rate stable on telemetry ABDOMEN: Obese SKIN: There is no rash NEURO: No focal motor deficit. Follows command. MUSCULOSKELETAL: No joint effusion EXTRIMITY: No swelling, no cyanosis or clubbing. PSYCH: Cooperative. - Constitutional Vitals: Vital Signs - 12hr 03/16/20 03/16/20 05:28 08:21 Temperature 97.5 F L Pulse Rate 69 Respiratory 20 Rate Blood Pressure 178/67 O2 Sat by Pulse 90 94 Oximetry - Labs CBC & Chem 7: 03/14/20 05:40 03/17/20 04:32 Labs: Abnormal lab results 03/15/20 03/15/20 03/15/20 Range/Units 14:31 15:25 21:15 Potassium (3.6-5.0) mmol/L Chloride (98-107) mmol/L Carbon Dioxide (22-30) mmol/L BUN (7-17) mg/dL Creatinine (0.6-1.2) mg/dL Glucose (65-100) mg/dL POC Glucose 528 H 438 H (70-105) mg/dL Hemoglobin A1c 8.0 H (4-6) % Calcium (8.4-10.2) mg/dL 03/16/20 03/16/20 03/16/20 Range/Units 04:15 08:05 11:29 Potassium 5.2 H (3.6-5.0) mmol/L Chloride 108.5 H (98-107) mmol/L Carbon Dioxide 15 L (22-30) mmol/L BUN 75 H (7-17) mg/dL Creatinine 3.6 H (0.6-1.2) mg/dL Glucose 305 H (65-100) mg/dL POC Glucose 262 H 255 H (70-105) mg/dL Hemoglobin A1c (4-6) % Calcium 8.2 L (8.4-10.2) mg/dL HEART Score - HEART Score Troponin: Troponin T 0.013 ng/mL (0.00-0.029) 03/14/20 02:52
--- NOTE | 2020-03-16 16:03 | Progress Note ---
Assessment and Plan Cultures: Blood culture pending COVID-19 positive A/P: 75-year-old female past medical history hypertension, diabetes admitted with COVID-19 pneumonia #Severe COVID-19 pneumonia: Patient presented with a week of symptoms, chest x- ray with diffuse bilateral infiltrates. Inflammatory markers elevated #Acute hypoxemic respiratory failure: Likely secondary to COVID-19 infection. Currently on 8 L nasal cannula #FLORIDALMA on CKD: Renally dose medications, not a candidate for remdesivir due to renal function. #Diabetes: tight glycemic control for best outcomes. Recs: -Dexamethasone 6 mg IV/PO daily for 10 days -Not a remdesivir candidate due to renal function -Anticoagulation per hospital protocol -Proning as able -Obtain every 48 hour inflammatory markers Thank you for the consult, we will continue to follow. Joe Childress MD [facility], [facility] O: [phone] F: [phone] Subjective Date of service: 03/16/20 Interval history: Afebrile, no acute change. Currently on 8 L nasal cannula Objective - Exam Narrative Exam: Physical exam deferred due to PPE conservation strategy. Please refer to primary team's note. - Constitutional Vitals: Vital Signs Temp Pulse Resp BP Pulse Ox 97.7 F 64 24 213/78 95 03/16/20 11:26 03/16/20 11:26 03/16/20 11:26 03/16/20 11:26 03/16/20 11:26 Temperature -Last 24 Hours Temperature 97.7 F Temperature 97.5 F Temperature 98.7 F - Labs CBC & Chem 7: 03/14/20 05:40 03/16/20 04:15 Labs: Abnormal lab results 03/15/20 03/16/20 03/16/20 Range/Units 21:15 04:15 08:05 Potassium 5.2 H (3.6-5.0) mmol/L Chloride 108.5 H (98-107) mmol/L Carbon Dioxide 15 L (22-30) mmol/L BUN 75 H (7-17) mg/dL Creatinine 3.6 H (0.6-1.2) mg/dL Glucose 305 H (65-100) mg/dL POC Glucose 438 H 262 H (70-105) mg/dL Calcium 8.2 L (8.4-10.2) mg/dL 03/16/20 Range/Units 11:29 Potassium (3.6-5.0) mmol/L Chloride (98-107) mmol/L Carbon Dioxide (22-30) mmol/L BUN (7-17) mg/dL Creatinine (0.6-1.2) mg/dL Glucose (65-100) mg/dL POC Glucose 255 H (70-105) mg/dL Calcium (8.4-10.2) mg/dL
[2020-03-16] MEDS: hydrALAZINE 20 MG/1 ML INJ IV PRN (17:48)
[2020-03-17] MEDS: HEPARIN 5,000 UNIT/1 ML VIAL SUB-Q SCH ×3 (06:08→22:20)
[2020-03-17] MEDS: hydrALAZINE 20 MG/1 ML INJ IV PRN (06:09)
[2020-03-17 06:12] LABS: Calcium 8.4 mg/dL (8.4-10.2)
--- NOTE | 2020-03-17 07:28 | Progress Note ---
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 s/p gentle iv fluid but now d/aron We consulted nephrology for further evaluation and treatment. Recheck CBC BMP in the morning. -- Acute respiratory failure with hypoxia Due to COVID-19 pneumonia Patient currently on 6 L O2 DuoNeb by nebulizer every 4 hours as needed. Decadron 6 mg IV daily. Reconsult pulmonary as well as infectious disease for evaluation and treatment. We follow the inflammatory markers. As needed IV Lasix to prevent pulmonary edema --Diabetes mellitus type 2 Follow blood glucose with QACHS with SSI Consistent carb diet, will add long-acting insulin -- COVID-19 virus infection Start on dexamethasone, patient is not a candidate for remdesivir due to declining renal function DuoNeb by nebulizer every 4 hours as needed. Decadron 6 mg IV daily. Reconsult pulmonary as well as infectious disease for evaluation and treatment. We follow the inflammatory markers. --Morbid obesity, risks for poor outcome with COVID-19 Weight reduction diet and exercise when patient clinically more stable as outpatient --DVT prophylaxis, Heparin 5000 units subcu every 8 hours Daily course: 03/14: Covid test is positive, started on dexamethasone. Will DC empiric antibiotics as procalcitonin level is normal. Follow ID recommendation, follow inflammatory markers. Patient is not a candidate for remdesivir due to decli damari renal function. Follow nephrology recommendation, monitor BMP 03/15; blood glucose greater than 400 today, started on long-acting and premeal insulin along with sliding scale. patient WAS ON 40L [place] THIS AM, now on 12 L high flow O2 today, will follow pulmonary recommendation. Continue D ecadron, follow inflammatory markers, follow BMP, check A1c 03/16: Patient today on 8L O2, cont to follow inflammatory markers. Continue Decadron, minimize iv fluid trnsfusion. follow bmp. 03/17; patient is on 12 L of oxygen, ID is following the patient. Continue with Decadron. Nephrology is following. History Interval history: Patient admitted for hypoxia due to COVID-19 infection Patient is on 12 L of oxygen No complaints Hospitalist Physical - Physical exam Narrative exam: Not in cardiopulmonary distress. The patient appeared well nourished and normally developed. Vital signs as documented. Head exam is unremarkable. No scleral icterus . Neck is without jugular venous distension, thyromegaly, or carotid bruits. Lungs decreased breath sounds Cardiac exam reveals regular rate and Rhythm. Abdominal exam reveals normal bowel sounds, nontender, no organomegaly. Extremities are nonedematous and both femoral and pedal pulses are normal. HAND PATTERN MARKER: Alert and oriented 3. No focal weakness. - Constitutional Vitals: Temp Pulse Resp BP Pulse Ox 98.0 F 63 20 185/77 93 03/17/20 05:20 03/17/20 06:09 03/17/20 05:20 03/17/20 06:09 03/17/20 05:20 General appearance: Present: no acute distress, well-nourished HEART Score - HEART Score Troponin: Troponin T 0.013 ng/mL (0.00-0.029) 03/14/20 02:52 Results - Labs CBC & Chem 7: 03/14/20 05:40 03/17/20 04:32 Labs: Laboratory Last Values WBC 10.0 K/mm3 (4.5-11.0) 03/14/20 05:40 RBC 3.57 M/mm3 (3.65-5.03) L 03/14/20 05:40 Hgb 9.9 gm/dl (10.1-14.3) L 03/14/20 05:40 Hct 30.7 % (30.3-42.9) 03/14/20 05:40 MCV 86 fl (79-97) 03/14/20 05:40 MCH 28 pg (28-32) 03/14/20 05:40 MCHC 32 % (30-34) 03/14/20 05:40 RDW 15.9 % (13.2-15.2) H 03/14/20 05:40 Plt Count 302 K/mm3 (140-440) 03/14/20 05:40 Lymph % (Auto) 4.5 % (13.4-35.0) L 03/14/20 05:40 [place] % (Auto) 3.4 % (0.0-7.3) 03/14/20 05:40 Eos % (Auto) 0.1 % (0.0-4.3) 03/14/20 05:40 Baso % (Auto) 0.1 % (0.0-1.8) 03/14/20 05:40 Lymph # (Auto) 0.5 K/mm3 (1.2-5.4) L 03/14/20 05:40 [place] # (Auto) 0.3 K/mm3 (0.0-0.8) 03/14/20 05:40 Eos # (Auto) 0.0 K/mm3 (0.0-0.4) 03/14/20 05:40 Baso # (Auto) 0.0 K/mm3 (0.0-0.1) 03/14/20 05:40 Seg Neutrophils % 91.9 % (40.0-70.0) H 03/14/20 05:40 Seg Neutrophils # 9.2 K/mm3 (1.8-7.7) H 03/14/20 05:40 PT 13.6 Sec. (12.2-14.9) 03/14/20 02:52 INR 1.05 (0.87-1.13) 03/14/20 02:52 APTT 33.7 Sec. (24.2-36.6) 03/14/20 02:52 D-Dimer 845.52 ng/mlDDU (0-234) H 03/14/20 02:52 Sodium 143 mmol/L (137-145) 03/17/20 04:32 Potassium 3.7 mmol/L (3.6-5.0) D 03/17/20 04:32 Chloride 106.0 mmol/L (98-107) 03/17/20 04:32 Carbon Dioxide 20 mmol/L (22-30) L 03/17/20 04:32 Anion Gap 21 mmol/L 03/17/20 04:32 BUN 79 mg/dL (7-17) H 03/17/20 04:32 Creatinine 3.5 mg/dL (0.6-1.2) H 03/17/20 04:32 Estimated GFR 13 ml/min 03/17/20 04:32 BUN/Creatinine Ratio 23 % 03/17/20 04:32 Glucose 121 mg/dL (65-100) H 03/17/20 04:32 POC Glucose 195 mg/dL (70-105) H 03/16/20 23:01 Hemoglobin A1c 8.0 % (4-6) H 03/15/20 14:31 Osmolality 323 Mosm/kg 03/14/20 23:39 Lactic Acid 1.70 mmol/L (0.7-2.0) 03/14/20 05:40 Calcium 8.4 mg/dL (8.4-10.2) 03/17/20 04:32 Phosphorus 3.20 mg/dL (2.5-4.5) 03/15/20 05:39 Magnesium 2.00 mg/dL (1.7-2.3) 03/15/20 05:39 Ferritin 273.0 ng/mL (10.0-200.0) H 03/14/20 02:52 Total Bilirubin 0.30 mg/dL (0.1-1.2) 03/14/20 02:52 AST 26 units/L (5-40) 03/14/20 02:52 ALT 15 units/L (7-56) 03/14/20 02:52 Alkaline Phosphatase 89 units/L (35-129) 03/14/20 02:52 Lactate Dehydrogenase 413 units/L (91-180) H 03/14/20 02:52 Troponin T 0.013 ng/mL (0.00-0.029) 03/14/20 02:52 C-Reactive Protein 11.90 mg/dL (0.00-1.30) H 03/14/20 05:40 NT-Pro-B Natriuret Pep 55144 pg/mL (0-900) H 03/14/20 02:52 Total Protein 5.5 g/dL (6.3-8.2) L 03/14/20 02:52 Albumin 2.8 g/dL (3.9-5) L 03/14/20 02:52 Albumin/Globulin Ratio 1.0 % 03/14/20 02:52 Procalcitonin 0.30 ng/mL (<0.15) 03/14/20 02:52 Urine Color Yellow (Yellow) 03/14/20 Unknown Urine Turbidity Clear (Clear) 03/14/20 Unknown Urine pH 5.0 (5.0-7.0) 03/14/20 Unknown Ur Specific [place] 1.016 (1.003-1.030) 03/14/20 Unknown Urine Protein >500 mg/dL (Negative) 03/14/20 Unknown Urine Glucose (UA) >=500 mg/dL (Negative) 03/14/20 Unknown Urine Ketones Neg mg/dL (Negative) 03/14/20 Unknown Urine Blood Sm (Negative) 03/14/20 Unknown Urine Nitrite Neg (Negative) 03/14/20 Unknown Urine Bilirubin Neg (Negative) 03/14/20 Unknown Urine Urobilinogen < 2.0 mg/dL (<2.0) 03/14/20 Unknown Ur Leukocyte Esterase Neg (Negative) 03/14/20 Unknown Urine WBC (Auto) 2.0 /HPF (0.0-6.0) 03/14/20 Unknown Urine RBC (Auto) < 1.0 /HPF (0.0-6.0) 03/14/20 Unknown U Epithel Cells (Auto) 1.0 /HPF (0-13.0) 03/14/20 Unknown Urine Bacteria (Auto) 1+ /HPF (Negative) 03/14/20 Unknown Hyaline Casts 1 /LPF 03/14/20 Unknown Urine Mucus Few /HPF 03/14/20 Unknown Urine Yeast (Budding) 1+ /HPF 03/14/20 Unknown Urine Creatinine 89.5 mg/dL (0.1-20.0) H 03/14/20 Unknown Protein/Creatinin Ratio 9.23 03/14/20 Unknown Urine Total Protein 826 mg/dL (5-11.8) H 03/14/20 Unknown Coronavirus (PCR) Positive (Negative) A 03/14/20 Unknown Microbiology: Microbiology 03/14/20 02:52 Peripheral/Venous Blood Culture - Preliminary NO GROWTH AFTER 72 HOURS 03/14/20 02:52 Peripheral/Venous Blood Culture - Preliminary NO GROWTH AFTER 72 HOURS Christina/IV: Voiding Method Toilet IV Catheter Type [Right INT / Saline Lock Antecubital] Active Medications - Current Medications Current Medications: Generic Name Dose Route Start Last Admin Trade Name Freq PRN Reason Stop Dose Admin Albuterol 2 puff 03/14/20 04:19 Albuterol 8.5 Gm Mdi Inhalation IH QID PRN Shortness Of Breath Amlodipine Besylate 10 mg 03/16/20 10:00 03/16/20 10:18 Amlodipine 10 Mg Tab PO 10 mg QDAY TERA Administration Ascorbic Acid 1,000 mg 03/15/20 10:00 03/16/20 21:13 Ascorbic Acid 500 Mg Tab PO 1,000 mg BID TERA Administration Carvedilol 6.25 mg 03/16/20 10:00 03/16/20 21:13 Carvedilol 6.25 Mg Tab PO 6.25 mg BID TERA Administration Cholecalciferol 5,000 unit 03/15/20 10:00 03/16/20 09:12 Cholecalciferol (Vit D3) 5,000 Unit Tab PO 5,000 unit DAILY TERA Administration Dexamethasone 6 mg 03/17/20 10:00 Dexamethasone 4 Mg Tab PO 03/23/20 12:00 DAILY TERA Heparin Sodium (Porcine) 5,000 unit 03/14/20 06:00 03/17/20 06:08 Heparin 5,000 Unit/1 Ml Vial SUB-Q 5,000 unit Q8HR TERA Administration Hydralazine HCl 5 mg 03/16/20 09:43 03/17/20 06:09 Hydralazine 20 Mg/1 Ml Inj IV 5 mg Q4HR PRN Administration Hypertension Insulin Glargine 25 units 03/15/20 16:42 03/16/20 09:12 Insulin Glargine 100 Units/Ml SUB-Q 25 units QAM TERA Administration Insulin Human Regular 0 unit 03/15/20 11:30 03/16/20 23:16 Insulin Regular, Human 100 Unit/Ml 3ml Vial SUB-Q 3 unit ACHS [facility]–1983 Administration Protocol Insulin Human Regular 10 unit 03/16/20 07:30 03/16/20 17:30 Insulin Regular, Human 100 Unit/Ml 3ml Vial SUB-Q 10 unit AC TERA Administration Labetalol HCl 300 mg 03/14/20 10:00 03/16/20 21:15 Labetalol 200 Mg Tab PO 300 mg BID TERA Administration Pantoprazole Sodium 40 mg 03/14/20 07:30 03/16/20 09:13 Pantoprazole 40 Mg Tab PO 40 mg QDAC TERA Administration Sodium Bicarbonate 650 mg 03/15/20 20:00 03/16/20 21:10 Sodium Bicarbonate 650 Mg Tab PO 650 mg TID TERA Administration Sucralfate 1 gm 03/14/20 07:30 03/16/20 21:13 Sucralfate 1 Gm Tab PO 1 gm ACHS TERA Administration Zinc Sulfate 220 mg 03/15/20 10:00 03/16/20 21:13 Zinc Sulfate 220 Mg Cap PO 220 mg BID TERA Administration
--- NOTE | 2020-03-17 08:10 | Progress Note ---
Assessment and Plan 75 y/o female with acute respiratory failure secondary to COVID 19 pneumonia 03/17/20: Will ask RT to be more aggressive about weaning back down today. Still would check for antibodies to see if patient would qualify for plasma therapy. No additional IVF's unless absolutely necessary. Prognosis remains guarded. Continue steroids. May need to consider LTACH if weaning becomes more difficult and prolonged. 03/16/20: Continue to wean FiO2 for sats >88%. Still would consider checking antibodies to see if reactive and if patient would qualify for plasma therapy. 03/15/20: No new recs from today, please see below. 1. Wean FiO2 for sats >88% 2. Prone as tolerated during the day and sleep prone at night if possible 3. Assess antibody status to see if patient would benefit from convalescent plasma 4. Agree with steroids for 10 days total 5. Patient does have chronic renal disease, but if possible would not give IVF. Need to keep these patients as dry as possible. Await renal follow up and recs 6. No aerosol therapy Guarded prognosis Subjective Date of service: 03/17/20 Interval history: Apparently patient had some desats. Bumped up to 12 liters from 8. Last sat documented at 99%. Other vitals stable. REmainder is negative. Objective Vital Signs - 12hr 03/16/20 03/16/20 03/16/20 21:13 21:15 21:18 Temperature 97.3 F L Pulse Rate 82 82 82 Respiratory 18 Rate Respiratory Rate [Abdomen] Blood Pressure 189/84 189/84 189/84 O2 Sat by Pulse 96 Oximetry 03/16/20 03/16/20 03/17/20 22:00 23:14 00:00 Temperature Pulse Rate 74 Respiratory 20 18 Rate Respiratory 18 Rate [Abdomen] Blood Pressure 146/53 O2 Sat by Pulse 89 Oximetry 03/17/20 03/17/20 03/17/20 00:39 05:20 06:09 Temperature 98.0 F Pulse Rate 63 63 Respiratory 20 Rate Respiratory Rate [Abdomen] Blood Pressure 185/77 185/77 O2 Sat by Pulse 99 93 Oximetry CBC and BMP: 03/14/20 05:40 03/17/20 04:32 ABG, PT/INR, D-dimer: PT/INR, D-dimer PT 13.6 Sec. (12.2-14.9) 03/14/20 02:52 INR 1.05 (0.87-1.13) 03/14/20 02:52 D-Dimer 845.52 ng/mlDDU (0-234) H 03/14/20 02:52 Abnormal lab findings: Abnormal Labs 03/14/20 03/14/20 03/14/20 02:52 02:52 02:52 RBC 3.40 L Hgb 9.4 L Hct 28.8 L RDW 15.6 H Lymph % (Auto) 6.2 L Lymph # (Auto) 0.6 L Seg Neutrophils % 87.6 H Seg Neutrophils # 8.2 H D-Dimer 845.52 H Sodium 131 L Potassium Chloride Carbon Dioxide 17 L BUN 44 H Creatinine 2.9 H Glucose 276 H POC Glucose Hemoglobin A1c Calcium 7.8 L Ferritin Lactate Dehydrogenase C-Reactive Protein NT-Pro-B Natriuret Pep Total Protein 5.5 L Albumin 2.8 L Urine Creatinine Urine Total Protein Coronavirus (PCR) 03/14/20 03/14/20 03/14/20 02:52 02:52 05:40 RBC 3.57 L Hgb 9.9 L Hct RDW 15.9 H Lymph % (Auto) 4.5 L Lymph # (Auto) 0.5 L Seg Neutrophils % 91.9 H Seg Neutrophils # 9.2 H D-Dimer Sodium Potassium Chloride Carbon Dioxide BUN Creatinine Glucose POC Glucose Hemoglobin A1c Calcium Ferritin 273.0 H Lactate Dehydrogenase 413 H C-Reactive Protein 10.30 H NT-Pro-B Natriuret Pep 87227 H Total Protein Albumin Urine Creatinine Urine Total Protein Coronavirus (PCR) 03/14/20 03/14/20 03/14/20 05:40 Unknown Unknown RBC Hgb Hct RDW Lymph % (Auto) Lymph # (Auto) Seg Neutrophils % Seg Neutrophils # D-Dimer Sodium Potassium Chloride Carbon Dioxide BUN Creatinine Glucose POC Glucose Hemoglobin A1c Calcium Ferritin Lactate Dehydrogenase C-Reactive Protein 11.90 H NT-Pro-B Natriuret Pep Total Protein Albumin Urine Creatinine 89.5 H Urine Total Protein 826 H Coronavirus (PCR) Positive A 03/15/20 03/15/20 03/15/20 05:39 12:07 14:31 RBC Hgb Hct RDW Lymph % (Auto) Lymph # (Auto) Seg Neutrophils % Seg Neutrophils # D-Dimer Sodium 134 L Potassium Chloride Carbon Dioxide 15 L BUN 64 H Creatinine 3.5 H Glucose 532 H* POC Glucose 504 H Hemoglobin A1c 8.0 H Calcium Ferritin Lactate Dehydrogenase C-Reactive Protein NT-Pro-B Natriuret Pep Total Protein Albumin Urine Creatinine Urine Total Protein Coronavirus (PCR) 03/15/20 03/15/20 03/16/20 15:25 21:15 04:15 RBC Hgb Hct RDW Lymph % (Auto) Lymph # (Auto) Seg Neutrophils % Seg Neutrophils # D-Dimer Sodium Potassium 5.2 H Chloride 108.5 H Carbon Dioxide 15 L BUN 75 H Creatinine 3.6 H Glucose 305 H POC Glucose 528 H 438 H Hemoglobin A1c Calcium 8.2 L Ferritin Lactate Dehydrogenase C-Reactive Protein NT-Pro-B Natriuret Pep Total Protein Albumin Urine Creatinine Urine Total Protein Coronavirus (PCR) 03/16/20 03/16/20 03/16/20 08:05 11:29 17:25 RBC Hgb Hct RDW Lymph % (Auto) Lymph # (Auto) Seg Neutrophils % Seg Neutrophils # D-Dimer Sodium Potassium Chloride Carbon Dioxide BUN Creatinine Glucose POC Glucose 262 H 255 H 268 H Hemoglobin A1c Calcium Ferritin Lactate Dehydrogenase C-Reactive Protein NT-Pro-B Natriuret Pep Total Protein Albumin Urine Creatinine Urine Total Protein Coronavirus (PCR) 03/16/20 03/17/20 03/17/20 23:01 04:32 07:44 RBC Hgb Hct RDW Lymph % (Auto) Lymph # (Auto) Seg Neutrophils % Seg Neutrophils # D-Dimer Sodium Potassium Chloride Carbon Dioxide 20 L BUN 79 H Creatinine 3.5 H Glucose 121 H POC Glucose 195 H 129 H Hemoglobin A1c Calcium Ferritin Lactate Dehydrogenase C-Reactive Protein NT-Pro-B Natriuret Pep Total Protein Albumin Urine Creatinine Urine Total Protein Coronavirus (PCR)
[2020-03-17] MEDS: SODIUM BICARBONATE 650 MG TAB PO SCH ×3 (08:58→20:00)
[2020-03-17] MEDS: SUCRALFATE 1 GM TAB PO SCH ×4 (08:58→22:17)
[2020-03-17] MEDS: PANTOPRAZOLE 40 MG TAB PO SCH (08:59)
[2020-03-17] MEDS: INSULIN GLARGINE 100 UNITS/ML SUB-Q SCH (08:59)
[2020-03-17] MEDS: INSULIN REGULAR, HUMAN 100 UNIT/ML 3ML VIAL SUB-Q SCH ×7 (08:59→22:09)
[2020-03-17] MEDS: carvediloL 6.25 MG TAB PO SCH ×2 (09:00→22:18)
[2020-03-17] MEDS: ZINC SULFATE 220 MG CAP PO SCH ×2 (09:00→22:14)
[2020-03-17] MEDS: CHOLECALCIFEROL (VIT D3) 5,000 UNIT TAB PO SCH (09:00)
[2020-03-17] MEDS: ASCORBIC ACID 500 MG TAB PO SCH ×2 (09:00→22:14)
[2020-03-17] MEDS: DEXAMETHASONE 4 MG TAB PO SCH (09:00)
[2020-03-17] MEDS: amLODIPine 10 MG TAB PO SCH (09:01)
--- NOTE | 2020-03-17 10:16 | Progress Note ---
Assessment and Plan Cultures: Blood culture pending COVID-19 positive A/P: 75-year-old female past medical history hypertension, diabetes admitted with COVID-19 pneumonia #Severe COVID-19 pneumonia: Patient presented with a week of symptoms, chest x- ray with diffuse bilateral infiltrates. Inflammatory markers elevated #Acute hypoxemic respiratory failure: Likely secondary to COVID-19 infection. Currently on 12 L salter #FLORIDALMA on CKD: Renally dose medications, not a candidate for remdesivir due to renal function. #Diabetes: tight glycemic control for best outcomes. Recs: -Dexamethasone 6 mg IV/PO daily for 10 days -Not a remdesivir candidate due to renal function -Anticoagulation per hospital protocol -Proning as able -Obtain every 48 hour inflammatory markers As patient is not a remdesivir candidate, infectious disease will sign off at this time. Please call with any new questions. Joe Childress MD [facility] ([facility] O: [phone] F: [phone] Subjective Date of service: 03/17/20 Interval history: Afebrile, no acute changes. Currently on 12 L salter Objective - Exam Narrative Exam: Physical exam deferred due to PPE conservation strategy. Please refer to prima ry team's note. - Constitutional Vitals: Vital Signs Temp Pulse Resp BP Pulse Ox 98.0 F 63 20 185/77 93 03/17/20 05:20 03/17/20 06:09 03/17/20 05:20 03/17/20 06:09 03/17/20 05:20 Temperature -Last 24 Hours Temperature 98.0 F Temperature 97.3 F Temperature 97.9 F Temperature 97.7 F - Labs CBC & Chem 7: 03/14/20 05:40 03/17/20 04:32 Labs: Abnormal lab results 03/16/20 03/16/20 03/16/20 Range/Units 11:29 17:25 23:01 Carbon Dioxide (22-30) mmol/L BUN (7-17) mg/dL Creatinine (0.6-1.2) mg/dL Glucose (65-100) mg/dL POC Glucose 255 H 268 H 195 H (70-105) mg/dL 03/17/20 03/17/20 Range/Units 04:32 07:44 Carbon Dioxide 20 L (22-30) mmol/L BUN 79 H (7-17) mg/dL Creatinine 3.5 H (0.6-1.2) mg/dL Glucose 121 H (65-100) mg/dL POC Glucose 129 H (70-105) mg/dL
--- NOTE | 2020-03-17 13:49 | Progress Note ---
Assessment and Plan 1. 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 Renal US ordered, pending. Nephrotic range proteinuria. ANGIE, ANCA, GBM Ab, Complements and SPEP ordered. Monitor renal function. Creatinine leveled off. Renal prognosis is guarded. Avoid nephrotoxic agents. Meds dosage based on GFR. Monitor for RIGGER THIRD needs. 2. FEN: Hyperkalemia, improved. Metabolic acidosis, PO Sodium bicarbonate. Hyponatremia, improved, monitor. Diuretics as needed. Monitor lytes. 3. Acute respiratory failure with hypoxia: Due to COVID-19 pneumonia. Patient currently on [place] O2. DuoNeb as needed. Followed by Pulmonary. 4. COVID-19 virus infection: On Dexamethasone. Patient is not a candidate for Remdesivir due to low GFR. Followed by ID. Follow the inflammatory markers. 5. Diabetes mellitus type 2: Follow blood glucose with QACHS with SSI. Consistent carb diet. 6. Hypertension: Monitor BP. 7. Anemia, POA: Monitor. Subjective: Patient was seen and examined at the bedside. Language barrier. Examination: General appearance: well-developed, well-nourished, appears stated age, obese, no distress HEENT: [place], [place] Neck: supple Respiratory: faint rales heard Cardiology: regular, S1S2, no murmur Gastrointestinal: normoactive bowel sounds, no tenderness, not distended, obese Integumentary: no rash, warm and dry Neurologic: able to move extremities Ext: no edema Subjective Date of service: 03/17/20 Objective - Vital Signs Vital signs: Vital Signs - 12hr 03/17/20 03/17/20 03/17/20 05:20 06:09 12:36 Temperature 98.0 F 97.5 F L Pulse Rate 63 63 60 Respiratory 20 24 Rate Blood Pressure 185/77 185/77 142/61 O2 Sat by Pulse 93 88 Oximetry - Lab 03/14/20 05:40 03/17/20 04:32 Most recent lab results Calcium 8.4 mg/dL (8.4-10.2) 03/17/20 04:32 Phosphorus 3.20 mg/dL (2.5-4.5) 03/15/20 05:39 Magnesium 2.00 mg/dL (1.7-2.3) 03/15/20 05:39 Urine Creatinine 89.5 mg/dL (0.1-20.0) H 03/14/20 Unknown Urine Total Protein 826 mg/dL (5-11.8) H 03/14/20 Unknown Medications & Allergies - Medications Allergies/Adverse Reactions: Allergies No Known Allergies Allergy (Verified 07/31/18 07:06) Home Medications: Home Medications Medication Instructions Recorded Confirmed Last Taken Type Albuterol Mdi (or & Nicu Only) 2 puff IH QID PRN #1 inhalation 08/07/18 03/14/20 Unknown Rx [ProAir HFA Inhaler] Sucralfate [Carafate] 1 gm PO ACHS #30 tablet 08/07/18 03/14/20 03/13/20 Rx Insulin Regular, Human [HumuLIN R] 0 unit SQ AC #1 vial 08/11/18 03/14/20 Unknown Rx Labetalol HCl [Labetalol 300mg TAB] 300 mg PO BID #60 tablet 11/11/19 03/14/20 03/14/20 Rx Active Medications: Generic Name Dose Route Start Last Admin Trade Name Freq PRN Reason Stop Dose Admin Albuterol 2 puff 03/14/20 04:19 Albuterol 8.5 Gm Mdi Inhalation IH QID PRN Shortness Of Breath Amlodipine Besylate 10 mg 03/16/20 10:00 03/17/20 09:01 Amlodipine 10 Mg Tab PO 10 mg QDAY TERA Administration Ascorbic Acid 1,000 mg 03/15/20 10:00 03/17/20 09:00 Ascorbic Acid 500 Mg Tab PO 1,000 mg BID TERA Administration Carvedilol 6.25 mg 03/16/20 10:00 03/17/20 09:00 Carvedilol 6.25 Mg Tab PO 6.25 mg BID TERA Administration Cholecalciferol 5,000 unit 03/15/20 10:00 03/17/20 09:00 Cholecalciferol (Vit D3) 5,000 Unit Tab PO 5,000 unit DAILY TERA Administration Dexamethasone 6 mg 03/17/20 10:00 03/17/20 09:00 Dexamethasone 4 Mg Tab PO 03/23/20 12:00 6 mg DAILY TERA Administration Heparin Sodium (Porcine) 5,000 unit 03/14/20 06:00 03/17/20 13:15 Heparin 5,000 Unit/1 Ml Vial SUB-Q 5,000 unit Q8HR TERA Administration Hydralazine HCl 5 mg 03/16/20 09:43 03/17/20 06:09 Hydralazine 20 Mg/1 Ml Inj IV 5 mg Q4HR PRN Administration Hypertension Insulin Glargine 25 units 03/15/20 16:42 03/17/20 08:59 Insulin Glargine 100 Units/Ml SUB-Q 25 units QAM TERA Administration Insulin Human Regular 0 unit 03/15/20 11:30 03/17/20 13:16 Insulin Regular, Human 100 Unit/Ml 3ml Vial SUB-Q 6 unit ACHS TERA Administration Protocol Insulin Human Regular 10 unit 03/16/20 07:30 03/17/20 13:15 Insulin Regular, Human 100 Unit/Ml 3ml Vial SUB-Q 10 unit AC TERA Administration Labetalol HCl 300 mg 03/14/20 10:00 03/17/20 09:00 Labetalol 200 Mg Tab PO 300 mg BID TERA Administration Pantoprazole Sodium 40 mg 03/14/20 07:30 03/17/20 08:59 Pantoprazole 40 Mg Tab PO 40 mg QDAC TERA Administration Sodium Bicarbonate 650 mg 03/15/20 20:00 03/17/20 13:15 Sodium Bicarbonate 650 Mg Tab PO 650 mg TID TERA Administration Sucralfate 1 gm 03/14/20 07:30 03/17/20 13:15 Sucralfate 1 Gm Tab PO 1 gm ACHS TERA Administration Zinc Sulfate 220 mg 03/15/20 10:00 03/17/20 09:00 Zinc Sulfate 220 Mg Cap PO 220 mg BID TERA Administration
[2020-03-18] MEDS: HEPARIN 5,000 UNIT/1 ML VIAL SUB-Q SCH ×3 (06:44→22:02)
[2020-03-18 06:53] LABS: Calcium 8.4 mg/dL (8.4-10.2)
[2020-03-18] MEDS: SUCRALFATE 1 GM TAB PO SCH ×4 (07:00→22:02)
[2020-03-18] MEDS: INSULIN REGULAR, HUMAN 100 UNIT/ML 3ML VIAL SUB-Q SCH ×7 (07:03→22:12)
--- NOTE | 2020-03-18 08:09 | Progress Note ---
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 s/p gentle iv fluid but now d/aron We consulted nephrology for further evaluation and treatment. Recheck CBC BMP in the morning. -- Acute respiratory failure with hypoxia Due to COVID-19 pneumonia Patient currently on 6 L O2 DuoNeb by nebulizer every 4 hours as needed. Decadron 6 mg IV daily. Reconsult pulmonary as well as infectious disease for evaluation and treatment. We follow the inflammatory markers. As needed IV Lasix to prevent pulmonary edema --Diabetes mellitus type 2 Follow blood glucose with QACHS with SSI Consistent carb diet, will add long-acting insulin -- COVID-19 virus infection Start on dexamethasone, patient is not a candidate for remdesivir due to declining renal function DuoNeb by nebulizer every 4 hours as needed. Decadron 6 mg IV daily. Reconsult pulmonary as well as infectious disease for evaluation and treatment. We follow the inflammatory markers. --Morbid obesity, risks for poor outcome with COVID-19 Weight reduction diet and exercise when patient clinically more stable as outpatient --DVT prophylaxis, Heparin 5000 units subcu every 8 hours Daily course: 03/14: Covid test is positive, started on dexamethasone. Will DC empiric antibiotics as procalcitonin level is normal. Follow ID recommendation, follow inflammatory markers. Patient is not a candidate for remdesivir due to decli damari renal function. Follow nephrology recommendation, monitor BMP 03/15; blood glucose greater than 400 today, started on long-acting and premeal insulin along with sliding scale. patient WAS ON 40L [place] THIS AM, now on 12 L high flow O2 today, will follow pulmonary recommendation. Continue D ecadron, follow inflammatory markers, follow BMP, check A1c 03/16: Patient today on 8L O2, cont to follow inflammatory markers. Continue Decadron, minimize iv fluid trnsfusion. follow bmp. 03/17; patient is on 12 L of oxygen, ID is following the patient. Continue with Decadron. Nephrology is following. 03/18; patient is on 13 L of oxygen, ID and nephrology is following the patient. Patient is on Decadron, not a candidate for remdesivir because of her kidney function. Creatinine is trending down slightly. History Interval history: Patient admitted for hypoxia due to COVID-19 infection Patient is on 12 L of oxygen No complaints Management plan was discussed with her daughter Leena yesterday Hospitalist Physical - Physical exam Narrative exam: Not in cardiopulmonary distress. The patient appeared well nourished and normally developed. Vital signs as documented. Head exam is unremarkable. No scleral icterus . Neck is without jugular venous distension, thyromegaly, or carotid bruits. Lungs decreased breath sounds Cardiac exam reveals regular rate and Rhythm. Abdominal exam reveals normal bowel sounds, nontender, no organomegaly. Extremities are nonedematous and both femoral and pedal pulses are normal. [employer]: Alert and oriented 3. No focal weakness. - Constitutional Vitals: Temp Pulse Resp BP Pulse Ox 97.5 F L 67 18 144/62 93 03/17/20 23:23 03/17/20 23:23 03/17/20 23:23 03/17/20 23:23 03/18/20 04:36 General appearance: Present: no acute distress, well-nourished HEART Score - HEART Score Troponin: Troponin T 0.013 ng/mL (0.00-0.029) 03/14/20 02:52 Results - Labs CBC & Chem 7: 03/14/20 05:40 03/18/20 04:24 Labs: Laboratory Last Values WBC 10.0 K/mm3 (4.5-11.0) 03/14/20 05:40 RBC 3.57 M/mm3 (3.65-5.03) L 03/14/20 05:40 Hgb 9.9 gm/dl (10.1-14.3) L 03/14/20 05:40 Hct 30.7 % (30.3-42.9) 03/14/20 05:40 MCV 86 fl (79-97) 03/14/20 05:40 MCH 28 pg (28-32) 03/14/20 05:40 MCHC 32 % (30-34) 03/14/20 05:40 RDW 15.9 % (13.2-15.2) H 03/14/20 05:40 Plt Count 302 K/mm3 (140-440) 03/14/20 05:40 Lymph % (Auto) 4.5 % (13.4-35.0) L 03/14/20 05:40 [place] % (Auto) 3.4 % (0.0-7.3) 03/14/20 05:40 Eos % (Auto) 0.1 % (0.0-4.3) 03/14/20 05:40 Baso % (Auto) 0.1 % (0.0-1.8) 03/14/20 05:40 Lymph # (Auto) 0.5 K/mm3 (1.2-5.4) L 03/14/20 05:40 [place] # (Auto) 0.3 K/mm3 (0.0-0.8) 03/14/20 05:40 Eos # (Auto) 0.0 K/mm3 (0.0-0.4) 03/14/20 05:40 Baso # (Auto) 0.0 K/mm3 (0.0-0.1) 03/14/20 05:40 Seg Neutrophils % 91.9 % (40.0-70.0) H 03/14/20 05:40 Seg Neutrophils # 9.2 K/mm3 (1.8-7.7) H 03/14/20 05:40 PT 13.6 Sec. (12.2-14.9) 03/14/20 02:52 INR 1.05 (0.87-1.13) 03/14/20 02:52 APTT 33.7 Sec. (24.2-36.6) 03/14/20 02:52 D-Dimer 845.52 ng/mlDDU (0-234) H 03/14/20 02:52 Sodium 141 mmol/L (137-145) 03/18/20 04:24 Potassium 3.8 mmol/L (3.6-5.0) 03/18/20 04:24 Chloride 106.1 mmol/L (98-107) 03/18/20 04:24 Carbon Dioxide 20 mmol/L (22-30) L 03/18/20 04:24 Anion Gap 19 mmol/L 03/18/20 04:24 BUN 91 mg/dL (7-17) H 03/18/20 04:24 Creatinine 3.4 mg/dL (0.6-1.2) H 03/18/20 04:24 Estimated GFR 13 ml/min 03/18/20 04:24 BUN/Creatinine Ratio 27 % 03/18/20 04:24 Glucose 150 mg/dL (65-100) H 03/18/20 04:24 POC Glucose 218 mg/dL (70-105) H 03/17/20 22:04 Hemoglobin A1c 8.0 % (4-6) H 03/15/20 14:31 Osmolality 323 Mosm/kg 03/14/20 23:39 Lactic Acid 1.70 mmol/L (0.7-2.0) 03/14/20 05:40 Calcium 8.4 mg/dL (8.4-10.2) 03/18/20 04:24 Phosphorus 3.20 mg/dL (2.5-4.5) 03/15/20 05:39 Magnesium 2.00 mg/dL (1.7-2.3) 03/15/20 05:39 Ferritin 273.0 ng/mL (10.0-200.0) H 03/14/20 02:52 Total Bilirubin 0.30 mg/dL (0.1-1.2) 03/14/20 02:52 AST 26 units/L (5-40) 03/14/20 02:52 ALT 15 units/L (7-56) 03/14/20 02:52 Alkaline Phosphatase 89 units/L (35-129) 03/14/20 02:52 Lactate Dehydrogenase 413 units/L (91-180) H 03/14/20 02:52 Troponin T 0.013 ng/mL (0.00-0.029) 03/14/20 02:52 C-Reactive Protein 11.90 mg/dL (0.00-1.30) H 03/14/20 05:40 NT-Pro-B Natriuret Pep 08885 pg/mL (0-900) H 03/14/20 02:52 Total Protein 5.5 g/dL (6.3-8.2) L 03/14/20 02:52 Albumin 2.8 g/dL (3.9-5) L 03/14/20 02:52 Albumin/Globulin Ratio 1.0 % 03/14/20 02:52 Procalcitonin 0.30 ng/mL (<0.15) 03/14/20 02:52 Urine Color Yellow (Yellow) 03/14/20 Unknown Urine Turbidity Clear (Clear) 03/14/20 Unknown Urine pH 5.0 (5.0-7.0) 03/14/20 Unknown Ur Specific Jack 1.016 (1.003-1.030) 03/14/20 Unknown Urine Protein >500 mg/dL (Negative) 03/14/20 Unknown Urine Glucose (UA) >=500 mg/dL (Negative) 03/14/20 Unknown Urine Ketones Neg mg/dL (Negative) 03/14/20 Unknown Urine Blood Sm (Negative) 03/14/20 Unknown Urine Nitrite Neg (Negative) 03/14/20 Unknown Urine Bilirubin Neg (Negative) 03/14/20 Unknown Urine Urobilinogen < 2.0 mg/dL (<2.0) 03/14/20 Unknown Ur Leukocyte Esterase Neg (Negative) 03/14/20 Unknown Urine WBC (Auto) 2.0 /HPF (0.0-6.0) 03/14/20 Unknown Urine RBC (Auto) < 1.0 /HPF (0.0-6.0) 03/14/20 Unknown U Epithel Cells (Auto) 1.0 /HPF (0-13.0) 03/14/20 Unknown Urine Bacteria (Auto) 1+ /HPF (Negative) 03/14/20 Unknown Hyaline Casts 1 /LPF 03/14/20 Unknown Urine Mucus Few /HPF 03/14/20 Unknown Urine Yeast (Budding) 1+ /HPF 03/14/20 Unknown Urine Creatinine 89.5 mg/dL (0.1-20.0) H 03/14/20 Unknown Protein/Creatinin Ratio 9.23 03/14/20 Unknown Urine Total Protein 826 mg/dL (5-11.8) H 03/14/20 Unknown Coronavirus (PCR) Positive (Negative) A 03/14/20 Unknown Microbiology: Microbiology 03/14/20 02:52 Peripheral/Venous Blood Culture - Preliminary NO GROWTH AFTER 4 DAYS 03/14/20 02:52 Peripheral/Venous Blood Culture - Preliminary NO GROWTH AFTER 4 DAYS Christina/IV: Voiding Method Bedside Commode IV Catheter Type [Right INT / Saline Lock Antecubital] Active Medications - Current Medications Current Medications: Generic Name Dose Route Start Last Admin Trade Name Freq PRN Reason Stop Dose Admin Albuterol 2 puff 03/14/20 04:19 Albuterol 8.5 Gm Mdi Inhalation IH QID PRN Shortness Of Breath Amlodipine Besylate 10 mg 03/16/20 10:00 03/17/20 09:01 Amlodipine 10 Mg Tab PO 10 mg QDAY TERA Administration Ascorbic Acid 1,000 mg 03/15/20 10:00 03/17/20 22:14 Ascorbic Acid 500 Mg Tab PO 1,000 mg BID TERA Administration Carvedilol 6.25 mg 03/16/20 10:00 03/17/20 22:18 Carvedilol 6.25 Mg Tab PO 6.25 mg BID TERA Administration Cholecalciferol 5,000 unit 03/15/20 10:00 03/17/20 09:00 Cholecalciferol (Vit D3) 5,000 Unit Tab PO 5,000 unit DAILY TERA Administration Dexamethasone 6 mg 03/17/20 10:00 03/17/20 09:00 Dexamethasone 4 Mg Tab PO 03/23/20 12:00 6 mg DAILY TERA Administration Heparin Sodium (Porcine) 5,000 unit 03/14/20 06:00 03/18/20 06:44 Heparin 5,000 Unit/1 Ml Vial SUB-Q 5,000 unit Q8HR TERA Administration Hydralazine HCl 5 mg 03/16/20 09:43 03/17/20 06:09 Hydralazine 20 Mg/1 Ml Inj IV 5 mg Q4HR PRN Administration Hypertension Insulin Glargine 25 units 03/15/20 16:42 03/17/20 08:59 Insulin Glargine 100 Units/Ml SUB-Q 25 units QAM TERA Administration Insulin Human Regular 0 unit 03/15/20 11:30 03/17/20 22:09 Insulin Regular, Human 100 Unit/Ml 3ml Vial SUB-Q 4 unit ACHS TERA Administration Protocol Insulin Human Regular 10 unit 03/16/20 07:30 03/17/20 17:23 Insulin Regular, Human 100 Unit/Ml 3ml Vial SUB-Q 10 unit AC TERA Administration Labetalol HCl 300 mg 03/14/20 10:00 03/17/20 22:16 Labetalol 200 Mg Tab PO 300 mg BID TERA Administration Pantoprazole Sodium 40 mg 03/14/20 07:30 03/17/20 08:59 Pantoprazole 40 Mg Tab PO 40 mg QDAC TERA Administration Sodium Bicarbonate 650 mg 03/15/20 20:00 03/17/20 20:00 Sodium Bicarbonate 650 Mg Tab PO 650 mg TID TERA Administration Sucralfate 1 gm 03/14/20 07:30 03/17/20 22:17 Sucralfate 1 Gm Tab PO 1 gm ACHS TERA Administration Zinc Sulfate 220 mg 03/15/20 10:00 03/17/20 22:14 Zinc Sulfate 220 Mg Cap PO 220 mg BID TERA Administration
[2020-03-18] MEDS: SODIUM BICARBONATE 650 MG TAB PO SCH ×3 (09:57→22:01)
[2020-03-18] MEDS: DEXAMETHASONE 4 MG TAB PO SCH (10:00)
[2020-03-18] MEDS: INSULIN GLARGINE 100 UNITS/ML SUB-Q SCH (10:18)
[2020-03-18] MEDS: PANTOPRAZOLE 40 MG TAB PO SCH (10:18)
[2020-03-18] MEDS: ZINC SULFATE 220 MG CAP PO SCH ×2 (10:57→22:02)
[2020-03-18] MEDS: ASCORBIC ACID 500 MG TAB PO SCH ×2 (10:58→22:12)
[2020-03-18] MEDS: carvediloL 6.25 MG TAB PO SCH ×2 (10:58→22:02)
[2020-03-18] MEDS: CHOLECALCIFEROL (VIT D3) 5,000 UNIT TAB PO SCH (10:59)
[2020-03-18] MEDS: amLODIPine 10 MG TAB PO SCH (11:03)
[2020-03-18] MEDS ORDERED: FUROSEMIDE 20 MG/2 ML INJ IV ONE (12:21)
--- NOTE | 2020-03-18 12:23 | Progress Note ---
Assessment and Plan 75 y/o female with acute respiratory failure secondary to COVID 19 pneumonia 03/18/20: Wean FiO2 as tolerated. Will ask renal about the possiblity of HIGH dose lasix at least once to see if it will help with volume removal. Antibodies not assessed. Need to check with CM about LTACH availability and qualifications. 03/17/20: Will ask RT to be more aggressive about weaning back down today. Still would check for antibodies to see if patient would qualify for plasma therapy. No additional IVF's unless absolutely necessary. Prognosis remains guarded. Continue steroids. May need to consider LTACH if weaning becomes more difficult and prolonged. 03/16/20: Continue to wean FiO2 for sats >88%. Still would consider checking a ntibodies to see if reactive and if patient would qualify for plasma therapy. 03/15/20: No new recs from today, please see below. 1. Wean FiO2 for sats >88% 2. Prone as tolerated during the day and sleep prone at night if possible 3. Assess antibody status to see if patient would benefit from convalescent plasma 4. Agree with steroids for 10 days total 5. Patient does have chronic renal disease, but if possible would not give IVF. Need to keep these patients as dry as possible. Await renal follow up and recs 6. No aerosol therapy Guarded prognosis Subjective Date of service: 03/18/20 Interval history: Still on HFNC. Sats in the mid 90's. I/O not accurate but patient appears to be overall positive. Objective Vital Signs - 12hr 03/18/20 03/18/20 04:36 10:00 O2 Sat by Pulse 93 93 Oximetry CBC and BMP: 03/14/20 05:40 03/18/20 04:24 ABG, PT/INR, D-dimer: PT/INR, D-dimer PT 13.6 Sec. (12.2-14.9) 03/14/20 02:52 INR 1.05 (0.87-1.13) 03/14/20 02:52 D-Dimer 845.52 ng/mlDDU (0-234) H 03/14/20 02:52 Abnormal lab findings: Abnormal Labs 03/14/20 03/14/20 03/14/20 02:52 02:52 02:52 RBC 3.40 L Hgb 9.4 L Hct 28.8 L RDW 15.6 H Lymph % (Auto) 6.2 L Lymph # (Auto) 0.6 L Seg Neutrophils % 87.6 H Seg Neutrophils # 8.2 H D-Dimer 845.52 H Sodium 131 L Potassium Chloride Carbon Dioxide 17 L BUN 44 H Creatinine 2.9 H Glucose 276 H POC Glucose Hemoglobin A1c Calcium 7.8 L Ferritin Lactate Dehydrogenase C-Reactive Protein NT-Pro-B Natriuret Pep Total Protein 5.5 L Albumin 2.8 L Urine Creatinine Urine Total Protein Coronavirus (PCR) 03/14/20 03/14/20 03/14/20 02:52 02:52 05:40 RBC 3.57 L Hgb 9.9 L Hct RDW 15.9 H Lymph % (Auto) 4.5 L Lymph # (Auto) 0.5 L Seg Neutrophils % 91.9 H Seg Neutrophils # 9.2 H D-Dimer Sodium Potassium Chloride Carbon Dioxide BUN Creatinine Glucose POC Glucose Hemoglobin A1c Calcium Ferritin 273.0 H Lactate Dehydrogenase 413 H C-Reactive Protein 10.30 H NT-Pro-B Natriuret Pep 12677 H Total Protein Albumin Urine Creatinine Urine Total Protein Coronavirus (PCR) 03/14/20 03/14/20 03/14/20 05:40 Unknown Unknown RBC Hgb Hct RDW Lymph % (Auto) Lymph # (Auto) Seg Neutrophils % Seg Neutrophils # D-Dimer Sodium Potassium Chloride Carbon Dioxide BUN Creatinine Glucose POC Glucose Hemoglobin A1c Calcium Ferritin Lactate Dehydrogenase C-Reactive Protein 11.90 H NT-Pro-B Natriuret Pep Total Protein Albumin Urine Creatinine 89.5 H Urine Total Protein 826 H Coronavirus (PCR) Positive A 03/15/20 03/15/20 03/15/20 05:39 12:07 14:31 RBC Hgb Hct RDW Lymph % (Auto) Lymph # (Auto) Seg Neutrophils % Seg Neutrophils # D-Dimer Sodium 134 L Potassium Chloride Carbon Dioxide 15 L BUN 64 H Creatinine 3.5 H Glucose 532 H* POC Glucose 504 H Hemoglobin A1c 8.0 H Calcium Ferritin Lactate Dehydrogenase C-Reactive Protein NT-Pro-B Natriuret Pep Total Protein Albumin Urine Creatinine Urine Total Protein Coronavirus (PCR) 03/15/20 03/15/20 03/16/20 15:25 21:15 04:15 RBC Hgb Hct RDW Lymph % (Auto) Lymph # (Auto) Seg Neutrophils % Seg Neutrophils # D-Dimer Sodium Potassium 5.2 H Chloride 108.5 H Carbon Dioxide 15 L BUN 75 H Creatinine 3.6 H Glucose 305 H POC Glucose 528 H 438 H Hemoglobin A1c Calcium 8.2 L Ferritin Lactate Dehydrogenase C-Reactive Protein NT-Pro-B Natriuret Pep Total Protein Albumin Urine Creatinine Urine Total Protein Coronavirus (PCR) 03/16/20 03/16/20 03/16/20 08:05 11:29 17:25 RBC Hgb Hct RDW Lymph % (Auto) Lymph # (Auto) Seg Neutrophils % Seg Neutrophils # D-Dimer Sodium Potassium Chloride Carbon Dioxide BUN Creatinine Glucose POC Glucose 262 H 255 H 268 H Hemoglobin A1c Calcium Ferritin Lactate Dehydrogenase C-Reactive Protein NT-Pro-B Natriuret Pep Total Protein Albumin Urine Creatinine Urine Total Protein Coronavirus (PCR) 03/16/20 03/17/20 03/17/20 23:01 04:32 07:44 RBC Hgb Hct RDW Lymph % (Auto) Lymph # (Auto) Seg Neutrophils % Seg Neutrophils # D-Dimer Sodium Potassium Chloride Carbon Dioxide 20 L BUN 79 H Creatinine 3.5 H Glucose 121 H POC Glucose 195 H 129 H Hemoglobin A1c Calcium Ferritin Lactate Dehydrogenase C-Reactive Protein NT-Pro-B Natriuret Pep Total Protein Albumin Urine Creatinine Urine Total Protein Coronavirus (PCR) 03/17/20 03/17/20 03/17/20 12:33 16:12 22:04 RBC Hgb Hct RDW Lymph % (Auto) Lymph # (Auto) Seg Neutrophils % Seg Neutrophils # D-Dimer Sodium Potassium Chloride Carbon Dioxide BUN Creatinine Glucose POC Glucose 258 H 213 H 218 H Hemoglobin A1c Calcium Ferritin Lactate Dehydrogenase C-Reactive Protein NT-Pro-B Natriuret Pep Total Protein Albumin Urine Creatinine Urine Total Protein Coronavirus (PCR) 03/18/20 03/18/20 03/18/20 04:24 07:56 12:09 RBC Hgb Hct RDW Lymph % (Auto) Lymph # (Auto) Seg Neutrophils % Seg Neutrophils # D-Dimer Sodium Potassium Chloride Carbon Dioxide 20 L BUN 91 H Creatinine 3.4 H Glucose 150 H POC Glucose 118 H 254 H Hemoglobin A1c Calcium Ferritin Lactate Dehydrogenase C-Reactive Protein NT-Pro-B Natriuret Pep Total Protein Albumin Urine Creatinine Urine Total Protein Coronavirus (PCR)
--- NOTE | 2020-03-18 13:27 | Progress Note ---
Assessment and Plan 1. 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 Renal US ordered, pending. Nephrotic range proteinuria. ANGIE, ANCA, GBM Ab, Complements and SPEP ordered. Monitor renal function. Creatinine leveled off. Renal prognosis is guarded. Avoid nephrotoxic agents. Meds dosage based on GFR. Monitor for [employer] needs. 2. FEN: Hyperkalemia, improved. Metabolic acidosis, PO Sodium bicarbonate. Hyponatremia, improved, monitor. Diuretics as needed. Monitor lytes. 3. Acute respiratory failure with hypoxia: Due to COVID-19 pneumonia. Patient currently on NC O2. DuoNeb as needed. Followed by Pulmonary. 4. COVID-19 virus infection: On Dexamethasone. Patient is not a candidate for Remdesivir due to low GFR. Followed by ID. Follow the inflammatory markers. 5. Diabetes mellitus type 2: Follow blood glucose with QACHS with SSI. Consistent carb diet. 6. Hypertension: Monitor BP. 7. Anemia, POA: Monitor. Subjective: Patient was seen and examined at the bedside. Language barrier. Examination: General appearance: well-developed, well-nourished, appears stated age, obese, no distress HEENT: ATNC, [place] Neck: supple Respiratory: faint rales heard Cardiology: regular, S1S2, no murmur Gastrointestinal: normoactive bowel sounds, no tenderness, not distended, obese Integumentary: no rash, warm and dry Neurologic: able to move extremities Ext: no edema Subjective Date of service: 03/18/20 Objective - Vital Signs Vital signs: Vital Signs - 12hr 03/18/20 03/18/20 03/18/20 04:36 05:16 10:00 Temperature 97.6 F Pulse Rate 65 Respiratory 16 Rate Blood Pressure 128/50 O2 Sat by Pulse 93 90 93 Oximetry 03/18/20 12:01 Temperature 97.5 F L Pulse Rate 63 Respiratory 18 Rate Blood Pressure 173/71 O2 Sat by Pulse 93 Oximetry - Lab 03/14/20 05:40 03/18/20 04:24 Most recent lab results Calcium 8.4 mg/dL (8.4-10.2) 03/18/20 04:24 Phosphorus 3.20 mg/dL (2.5-4.5) 03/15/20 05:39 Magnesium 2.00 mg/dL (1.7-2.3) 03/15/20 05:39 Urine Creatinine 89.5 mg/dL (0.1-20.0) H 03/14/20 Unknown Urine Total Protein 826 mg/dL (5-11.8) H 03/14/20 Unknown Medications & Allergies - Medications Allergies/Adverse Reactions: Allergies No Known Allergies Allergy (Verified 07/31/18 07:06) Home Medications: Home Medications Medication Instructions Recorded Confirmed Last Taken Type Albuterol Mdi (or & Nicu Only) 2 puff IH QID PRN #1 inhalation 08/07/18 03/14/20 Unknown Rx [ProAir HFA Inhaler] Sucralfate [Carafate] 1 gm PO ACHS #30 tablet 08/07/18 03/14/20 03/13/20 Rx Insulin Regular, Human [HumuLIN R] 0 unit SQ AC #1 vial 08/11/18 03/14/20 Unkno wn Rx Labetalol HCl [Labetalol 300mg TAB] 300 mg PO BID #60 tablet 11/11/19 03/14/20 03/14/20 Rx Active Medications: Generic Name Dose Route Start Last Admin Trade Name Freq PRN Reason Stop Dose Admin Albuterol 2 puff 03/14/20 04:19 Albuterol 8.5 Gm Mdi Inhalation IH QID PRN Shortness Of Breath Amlodipine Besylate 10 mg 03/16/20 10:00 03/18/20 11:03 Amlodipine 10 Mg Tab PO 10 mg QDAY TERA Administration Ascorbic Acid 1,000 mg 03/15/20 10:00 03/18/20 10:58 Ascorbic Acid 500 Mg Tab PO 1,000 mg BID TERA Administration Carvedilol 6.25 mg 03/16/20 10:00 03/18/20 10:58 Carvedilol 6.25 Mg Tab PO 6.25 mg BID TERA Administration Cholecalciferol 5,000 unit 03/15/20 10:00 03/18/20 10:59 Cholecalciferol (Vit D3) 5,000 Unit Tab PO 5,000 unit DAILY TERA Administration Dexamethasone 6 mg 03/17/20 10:00 03/18/20 10:00 Dexamethasone 4 Mg Tab PO 03/23/20 12:00 6 mg DAILY TERA Administration Heparin Sodium (Porcine) 5,000 unit 03/14/20 06:00 03/18/20 06:44 Heparin 5,000 Unit/1 Ml Vial SUB-Q 5,000 unit Q8HR TERA Administration Hydralazine HCl 5 mg 03/16/20 09:43 03/17/20 06:09 Hydralazine 20 Mg/1 Ml Inj IV 5 mg Q4HR PRN Administration Hypertension Insulin Glargine 25 units 03/15/20 16:42 03/18/20 10:18 Insulin Glargine 100 Units/Ml SUB-Q 25 units QAM TERA Administration Insulin Human Regular 0 unit 03/15/20 11:30 03/18/20 07:03 Insulin Regular, Human 100 Unit/Ml 3ml Vial SUB-Q Not Given ACHS [facility] Protocol Insulin Human Regular 10 unit 03/16/20 07:30 03/18/20 12:06 Insulin Regular, Human 100 Unit/Ml 3ml Vial SUB-Q 10 unit AC TERA Administration Labetalol HCl 300 mg 03/14/20 10:00 03/18/20 10:01 Labetalol 200 Mg Tab PO 300 mg BID TERA Administration Pantoprazole Sodium 40 mg 03/14/20 07:30 03/18/20 10:18 Pantoprazole 40 Mg Tab PO 40 mg QDAC TERA Administration Sodium Bicarbonate 650 mg 03/15/20 20:00 03/18/20 09:57 Sodium Bicarbonate 650 Mg Tab PO 650 mg TID TERA Administration Sucralfate 1 gm 03/14/20 07:30 03/18/20 12:00 Sucralfate 1 Gm Tab PO 1 gm ACHS TERA Administration Zinc Sulfate 220 mg 03/15/20 10:00 03/18/20 10:57 Zinc Sulfate 220 Mg Cap PO 220 mg BID TERA Administration
[2020-03-19] MEDS: HEPARIN 5,000 UNIT/1 ML VIAL SUB-Q SCH ×3 (05:24→22:03)
--- NOTE | 2020-03-19 07:01 | Progress Note ---
Assessment and Plan 75 y/o female with acute respiratory failure secondary to COVID 19 pneumonia 03/19/20: no new recs for today. Still would consider at least a trial of high dose lasix to see if that will help with oxygen requirement. Ask CM this week about LTACH given prolonged weaning. 03/18/20: Wean FiO2 as tolerated. Will ask renal about the possiblity of HIGH dose lasix at least once to see if it will help with volume removal. Antibodies not assessed. Need to check with CM about LTACH availability and qualifications. 03/17/20: Will ask RT to be more aggressive about weaning back down today. Still would check for antibodies to see if patient would qualify for plasma therapy. No additional IVF's unless absolutely necessary. Prognosis remains guarded. Continue steroids. May need to consider LTACH if weaning becomes more difficult and prolonged. 03/16/20: Continue to wean FiO2 for sats >88%. Still would consider checking antibodies to see if reactive and if patient would qualify for plasma therapy. 03/15/20: No new recs from today, please see below. 1. Wean FiO2 for sats >88% 2. Prone as tolerated during the day and sleep prone at night if possible 3. Assess antibody status to see if patient would benefit from convalescent plasma 4. Agree with steroids for 10 days total 5. Patient does have chronic renal disease, but if possible would not give IVF. Need to keep these patients as dry as possible. Await renal follow up and recs 6. No aerosol therapy Guarded prognosis Subjective Date of service: 03/19/20 Interval history: No acute events. Still on HFNC. Was weaned to 8 liters on last evening but later that night had desats to 83% so bumped back up to 14 liters. Last documented sat was 91. Objective Vital Signs - 12hr 03/18/20 03/18/20 03/19/20 21:18 22:01 03:13 Temperature 97.3 F L Pulse Rate 59 L Respiratory 16 Rate Blood Pressure 153/56 O2 Sat by Pulse 89 89 96 Oximetry 03/19/20 03:57 Temperature 97.7 F Pulse Rate 61 Respiratory 20 Rate Blood Pressure 146/59 O2 Sat by Pulse 91 Oximetry CBC and BMP: 03/14/20 05:40 03/18/20 04:24 ABG, PT/INR, D-dimer: PT/INR, D-dimer PT 13.6 Sec. (12.2-14.9) 03/14/20 02:52 INR 1.05 (0.87-1.13) 03/14/20 02:52 D-Dimer 845.52 ng/mlDDU (0-234) H 03/14/20 02:52 Abnormal lab findings: Abnormal Labs 03/14/20 03/14/20 03/14/20 02:52 02:52 02:52 RBC 3.40 L Hgb 9.4 L Hct 28.8 L RDW 15.6 H Lymph % (Auto) 6.2 L Lymph # (Auto) 0.6 L Seg Neutrophils % 87.6 H Seg Neutrophils # 8.2 H D-Dimer 845.52 H Sodium 131 L Potassium Chloride Carbon Dioxide 17 L BUN 44 H Creatinine 2.9 H Glucose 276 H POC Glucose Hemoglobin A1c Calcium 7.8 L Ferritin Lactate Dehydrogenase C-Reactive Protein NT-Pro-B Natriuret Pep Total Protein 5.5 L Albumin 2.8 L Urine Creatinine Urine Total Protein Coronavirus (PCR) 03/14/20 03/14/20 03/14/20 02:52 02:52 05:40 RBC 3.57 L Hgb 9.9 L Hct RDW 15.9 H Lymph % (Auto) 4.5 L Lymph # (Auto) 0.5 L Seg Neutrophils % 91.9 H Seg Neutrophils # 9.2 H D-Dimer Sodium Potassium Chloride Carbon Dioxide BUN Creatinine Glucose POC Glucose Hemoglobin A1c Calcium Ferritin 273.0 H Lactate Dehydrogenase 413 H C-Reactive Protein 10.30 H NT-Pro-B Natriuret Pep 92510 H Total Protein Albumin Urine Creatinine Urine Total Protein Coronavirus (PCR) 03/14/20 03/14/20 03/14/20 05:40 Unknown Unknown RBC Hgb Hct RDW Lymph % (Auto) Lymph # (Auto) Seg Neutrophils % Seg Neutrophils # D-Dimer Sodium Potassium Chloride Carbon Dioxide BUN Creatinine Glucose POC Glucose Hemoglobin A1c Calcium Ferritin Lactate Dehydrogenase C-Reactive Protein 11.90 H NT-Pro-B Natriuret Pep Total Protein Albumin Urine Creatinine 89.5 H Urine Total Protein 826 H Coronavirus (PCR) Positive A 03/15/20 03/15/20 03/15/20 05:39 12:07 14:31 RBC Hgb Hct RDW Lymph % (Auto) Lymph # (Auto) Seg Neutrophils % Seg Neutrophils # D-Dimer Sodium 134 L Potassium Chloride Carbon Dioxide 15 L BUN 64 H Creatinine 3.5 H Glucose 532 H* POC Glucose 504 H Hemoglobin A1c 8.0 H Calcium Ferritin Lactate Dehydrogenase C-Reactive Protein NT-Pro-B Natriuret Pep Total Protein Albumin Urine Creatinine Urine Total Protein Coronavirus (PCR) 03/15/20 03/15/20 03/16/20 15:25 21:15 04:15 RBC Hgb Hct RDW Lymph % (Auto) Lymph # (Auto) Seg Neutrophils % Seg Neutrophils # D-Dimer Sodium Potassium 5.2 H Chloride 108.5 H Carbon Dioxide 15 L BUN 75 H Creatinine 3.6 H Glucose 305 H POC Glucose 528 H 438 H Hemoglobin A1c Calcium 8.2 L Ferritin Lactate Dehydrogenase C-Reactive Protein NT-Pro-B Natriuret Pep Total Protein Albumin Urine Creatinine Urine Total Protein Coronavirus (PCR) 03/16/20 03/16/20 03/16/20 08:05 11:29 17:25 RBC Hgb Hct RDW Lymph % (Auto) Lymph # (Auto) Seg Neutrophils % Seg Neutrophils # D-Dimer Sodium Potassium Chloride Carbon Dioxide BUN Creatinine Glucose POC Glucose 262 H 255 H 268 H Hemoglobin A1c Calcium Ferritin Lactate Dehydrogenase C-Reactive Protein NT-Pro-B Natriuret Pep Total Protein Albumin Urine Creatinine Urine Total Protein Coronavirus (PCR) 03/16/20 03/17/20 03/17/20 23:01 04:32 07:44 RBC Hgb Hct RDW Lymph % (Auto) Lymph # (Auto) Seg Neutrophils % Seg Neutrophils # D-Dimer Sodium Potassium Chloride Carbon Dioxide 20 L BUN 79 H Creatinine 3.5 H Glucose 121 H POC Glucose 195 H 129 H Hemoglobin A1c Calcium Ferritin Lactate Dehydrogenase C-Reactive Protein NT-Pro-B Natriuret Pep Total Protein Albumin Urine Creatinine Urine Total Protein Coronavirus (PCR) 03/17/20 03/17/20 03/17/20 12:33 16:12 22:04 RBC Hgb Hct RDW Lymph % (Auto) Lymph # (Auto) Seg Neutrophils % Seg Neutrophils # D-Dimer Sodium Potassium Chloride Carbon Dioxide BUN Creatinine Glucose POC Glucose 258 H 213 H 218 H Hemoglobin A1c Calcium Ferritin Lactate Dehydrogenase C-Reactive Protein NT-Pro-B Natriuret Pep Total Protein Albumin Urine Creatinine Urine Total Protein Coronavirus (PCR) 03/18/20 03/18/20 03/18/20 04:24 07:56 12:09 RBC Hgb Hct RDW Lymph % (Auto) Lymph # (Auto) Seg Neutrophils % Seg Neutrophils # D-Dimer Sodium Potassium Chloride Carbon Dioxide 20 L BUN 91 H Creatinine 3.4 H Glucose 150 H POC Glucose 118 H 254 H Hemoglobin A1c Calcium Ferritin Lactate Dehydrogenase C-Reactive Protein NT-Pro-B Natriuret Pep Total Protein Albumin Urine Creatinine Urine Total Protein Coronavirus (PCR) 03/18/20 03/18/20 16:51 21:59 RBC Hgb Hct RDW Lymph % (Auto) Lymph # (Auto) Seg Neutrophils % Seg Neutrophils # D-Dimer Sodium Potassium Chloride Carbon Dioxide BUN Creatinine Glucose POC Glucose 240 H 269 H Hemoglobin A1c Calcium Ferritin Lactate Dehydrogenase C-Reactive Protein NT-Pro-B Natriuret Pep Total Protein Albumin Urine Creatinine Urine Total Protein Coronavirus (PCR)
[2020-03-19 07:24] LABS: Calcium 8.4 mg/dL (8.4-10.2)
[2020-03-19] MEDS: INSULIN REGULAR, HUMAN 100 UNIT/ML 3ML VIAL SUB-Q SCH ×7 (08:00→22:05)
--- NOTE | 2020-03-19 08:45 | Progress Note ---
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 s/p gentle iv fluid but now d/aron We consulted nephrology for further evaluation and treatment. Recheck CBC BMP in the morning. -- Acute respiratory failure with hypoxia Due to COVID-19 pneumonia Patient currently on 6 L O2 DuoNeb by nebulizer every 4 hours as needed. Decadron 6 mg IV daily. Reconsult pulmonary as well as infectious disease for evaluation and treatment. We follow the inflammatory markers. As needed IV Lasix to prevent pulmonary edema --Diabetes mellitus type 2 Follow blood glucose with QACHS with SSI Consistent carb diet, will add long-acting insulin -- COVID-19 virus infection Start on dexamethasone, patient is not a candidate for remdesivir due to declining renal function DuoNeb by nebulizer every 4 hours as needed. Decadron 6 mg IV daily. Reconsult pulmonary as well as infectious disease for evaluation and treatment. We follow the inflammatory markers. --Morbid obesity, risks for poor outcome with COVID-19 Weight reduction diet and exercise when patient clinically more stable as outpatient --DVT prophylaxis, Heparin 5000 units subcu every 8 hours Daily course: 03/14: Covid test is positive, started on dexamethasone. Will DC empiric antibiotics as procalcitonin level is normal. Follow ID recommendation, follow inflammatory markers. Patient is not a candidate for remdesivir due to decli damari renal function. Follow nephrology recommendation, monitor BMP 03/15; blood glucose greater than 400 today, started on long-acting and premeal insulin along with sliding scale. patient WAS ON 40L [place] THIS AM, now on 12 L high flow O2 today, will follow pulmonary recommendation. Continue D ecadron, follow inflammatory markers, follow BMP, check A1c 03/16: Patient today on 8L O2, cont to follow inflammatory markers. Continue Decadron, minimize iv fluid trnsfusion. follow bmp. 03/17; patient is on 12 L of oxygen, ID is following the patient. Continue with Decadron. Nephrology is following. 03/18; patient is on 13 L of oxygen, ID and nephrology is following the patient. Patient is on Decadron, not a candidate for remdesivir because of her kidney function. Creatinine is trending down slightly. 03/19; patient is on 14 L of oxygen. ID, pulmonary and nephrology consult appreciated. Pulmonary recommends evaluation for LTAC because patient has prolonged weaning of high flow oxygen History Interval history: Patient admitted for hypoxia due to COVID-19 infection Patient is on 14 L of oxygen No complaints Management plan was discussed with her daughter Leena Hurtadoist Physical - Physical exam Narrative exam: Not in cardiopulmonary distress. The patient appeared well nourished and normally developed. Vital signs as documented. Head exam is unremarkable. No scleral icterus . Neck is without jugular venous distension, thyromegaly, or carotid bruits. Lungs decreased breath sounds Cardiac exam reveals regular rate and Rhythm. Abdominal exam reveals normal bowel sounds, nontender, no organomegaly. Extremities are nonedematous and both femoral and pedal pulses are normal. MONITORING ENGINEER: Alert and oriented 3. No focal weakness. - Constitutional Vitals: Temp Pulse Resp BP Pulse Ox 97.7 F 61 20 146/59 92 03/19/20 03:57 03/19/20 03:57 03/19/20 03:57 03/19/20 03:57 03/19/20 07:47 General appearance: Present: no acute distress, well-nourished HEART Score - HEART Score Troponin: Troponin T 0.013 ng/mL (0.00-0.029) 03/14/20 02:52 Results - Labs CBC & Chem 7: 03/14/20 05:40 03/19/20 04:34 Labs: Laboratory Last Values WBC 10.0 K/mm3 (4.5-11.0) 03/14/20 05:40 RBC 3.57 M/mm3 (3.65-5.03) L 03/14/20 05:40 Hgb 9.9 gm/dl (10.1-14.3) L 03/14/20 05:40 Hct 30.7 % (30.3-42.9) 03/14/20 05:40 MCV 86 fl (79-97) 03/14/20 05:40 MCH 28 pg (28-32) 03/14/20 05:40 MCHC 32 % (30-34) 03/14/20 05:40 RDW 15.9 % (13.2-15.2) H 03/14/20 05:40 Plt Count 302 K/mm3 (140-440) 03/14/20 05:40 Lymph % (Auto) 4.5 % (13.4-35.0) L 03/14/20 05:40 [place] % (Auto) 3.4 % (0.0-7.3) 03/14/20 05:40 Eos % (Auto) 0.1 % (0.0-4.3) 03/14/20 05:40 Baso % (Auto) 0.1 % (0.0-1.8) 03/14/20 05:40 Lymph # (Auto) 0.5 K/mm3 (1.2-5.4) L 03/14/20 05:40 [place] # (Auto) 0.3 K/mm3 (0.0-0.8) 03/14/20 05:40 Eos # (Auto) 0.0 K/mm3 (0.0-0.4) 03/14/20 05:40 Baso # (Auto) 0.0 K/mm3 (0.0-0.1) 03/14/20 05:40 Seg Neutrophils % 91.9 % (40.0-70.0) H 03/14/20 05:40 Seg Neutrophils # 9.2 K/mm3 (1.8-7.7) H 03/14/20 05:40 PT 13.6 Sec. (12.2-14.9) 03/14/20 02:52 INR 1.05 (0.87-1.13) 03/14/20 02:52 APTT 33.7 Sec. (24.2-36.6) 03/14/20 02:52 D-Dimer 845.52 ng/mlDDU (0-234) H 03/14/20 02:52 Sodium 139 mmol/L (137-145) 03/19/20 04:34 Potassium 3.9 mmol/L (3.6-5.0) 03/19/20 04:34 Chloride 102.8 mmol/L (98-107) 03/19/20 04:34 Carbon Dioxide 20 mmol/L (22-30) L 03/19/20 04:34 Anion Gap 20 mmol/L 03/19/20 04:34 BUN 94 mg/dL (7-17) H 03/19/20 04:34 Creatinine 3.4 mg/dL (0.6-1.2) H 03/19/20 04:34 Estimated GFR 13 ml/min 03/19/20 04:34 BUN/Creatinine Ratio 28 % 03/19/20 04:34 Glucose 132 mg/dL (65-100) H 03/19/20 04:34 POC Glucose 76 mg/dL (70-105) 03/19/20 07:42 Hemoglobin A1c 8.0 % (4-6) H 03/15/20 14:31 Osmolality 323 Mosm/kg 03/14/20 23:39 Lactic Acid 1.70 mmol/L (0.7-2.0) 03/14/20 05:40 Calcium 8.4 mg/dL (8.4-10.2) 03/19/20 04:34 Phosphorus 3.20 mg/dL (2.5-4.5) 03/15/20 05:39 Magnesium 2.00 mg/dL (1.7-2.3) 03/15/20 05:39 Ferritin 273.0 ng/mL (10.0-200.0) H 03/14/20 02:52 Total Bilirubin 0.30 mg/dL (0.1-1.2) 03/14/20 02:52 AST 26 units/L (5-40) 03/14/20 02:52 ALT 15 units/L (7-56) 03/14/20 02:52 Alkaline Phosphatase 89 units/L (35-129) 03/14/20 02:52 Lactate Dehydrogenase 413 units/L (91-180) H 03/14/20 02:52 Troponin T 0.013 ng/mL (0.00-0.029) 03/14/20 02:52 C-Reactive Protein 11.90 mg/dL (0.00-1.30) H 03/14/20 05:40 NT-Pro-B Natriuret Pep 91939 pg/mL (0-900) H 03/14/20 02:52 Total Protein 5.5 g/dL (6.3-8.2) L 03/14/20 02:52 Albumin 2.8 g/dL (3.9-5) L 03/14/20 02:52 Albumin/Globulin Ratio 1.0 % 03/14/20 02:52 Procalcitonin 0.30 ng/mL (<0.15) 03/14/20 02:52 Urine Color Yellow (Yellow) 03/14/20 Unknown Urine Turbidity Clear (Clear) 03/14/20 Unknown Urine pH 5.0 (5.0-7.0) 03/14/20 Unknown Ur Specific [place] 1.016 (1.003-1.030) 03/14/20 Unknown Urine Protein >500 mg/dL (Negative) 03/14/20 Unknown Urine Glucose (UA) >=500 mg/dL (Negative) 03/14/20 Unknown Urine Ketones Neg mg/dL (Negative) 03/14/20 Unknown Urine Blood Sm (Negative) 03/14/20 Unknown Urine Nitrite Neg (Negative) 03/14/20 Unknown Urine Bilirubin Neg (Negative) 03/14/20 Unknown Urine Urobilinogen < 2.0 mg/dL (<2.0) 03/14/20 Unknown Ur Leukocyte Esterase Neg (Negative) 03/14/20 Unknown Urine WBC (Auto) 2.0 /HPF (0.0-6.0) 03/14/20 Unknown Urine RBC (Auto) < 1.0 /HPF (0.0-6.0) 03/14/20 Unknown U Epithel Cells (Auto) 1.0 /HPF (0-13.0) 03/14/20 Unknown Urine Bacteria (Auto) 1+ /HPF (Negative) 03/14/20 Unknown Hyaline Casts 1 /LPF 03/14/20 Unknown Urine Mucus Few /HPF 03/14/20 Unknown Urine Yeast (Budding) 1+ /HPF 03/14/20 Unknown Urine Creatinine 89.5 mg/dL (0.1-20.0) H 03/14/20 Unknown Protein/Creatinin Ratio 9.23 03/14/20 Unknown Urine Total Protein 826 mg/dL (5-11.8) H 03/14/20 Unknown Coronavirus (PCR) Positive (Negative) A 03/14/20 Unknown Microbiology: Microbiology 03/14/20 02:52 Peripheral/Venous Blood Culture - Final NO GROWTH AFTER 5 DAYS 03/14/20 02:52 Peripheral/Venous Blood Culture - Final NO GROWTH AFTER 5 DAYS Christina/IV: Voiding Method Bedside Commode IV Catheter Type [Right INT / Saline Lock Antecubital] Active Medications - Current Medications Current Medications: Generic Name Dose Route Start Last Admin Trade Name Freq PRN Reason Stop Dose Admin Albuterol 2 puff 03/14/20 04:19 Albuterol 8.5 Gm Mdi Inhalation IH QID PRN Shortness Of Breath Amlodipine Besylate 10 mg 03/16/20 10:00 03/18/20 11:03 Amlodipine 10 Mg Tab PO 10 mg QDAY TERA Administration Ascorbic Acid 1,000 mg 03/15/20 10:00 03/18/20 22:12 Ascorbic Acid 500 Mg Tab PO 1,000 mg BID TERA Administration Carvedilol 6.25 mg 03/16/20 10:00 03/18/20 22:02 Carvedilol 6.25 Mg Tab PO 6.25 mg BID TERA Administration Cholecalciferol 5,000 unit 03/15/20 10:00 03/18/20 10:59 Cholecalciferol (Vit D3) 5,000 Unit Tab PO 5,000 unit DAILY TERA Administration Dexamethasone 6 mg 03/17/20 10:00 03/18/20 10:00 Dexamethasone 4 Mg Tab PO 03/23/20 12:00 6 mg DAILY TERA Administration Heparin Sodium (Porcine) 5,000 unit 03/14/20 06:00 03/19/20 05:24 Heparin 5,000 Unit/1 Ml Vial SUB-Q 5,000 unit Q8HR TERA Administration Hydralazine HCl 5 mg 03/16/20 09:43 03/17/20 06:09 Hydralazine 20 Mg/1 Ml Inj IV 5 mg Q4HR PRN Administration Hypertension Insulin Glargine 25 units 03/15/20 16:42 03/18/20 10:18 Insulin Glargine 100 Units/Ml SUB-Q 25 units QAM TERA Administration Insulin Human Regular 0 unit 03/15/20 11:30 03/18/20 22:12 Insulin Regular, Human 100 Unit/Ml 3ml Vial SUB-Q 6 unit ACHS TERA Administration Protocol Insulin Human Regular 10 unit 03/16/20 07:30 03/18/20 17:39 Insulin Regular, Human 100 Unit/Ml 3ml Vial SUB-Q 10 unit AC TERA Administration Labetalol HCl 300 mg 03/14/20 10:00 03/18/20 22:01 Labetalol 200 Mg Tab PO 300 mg BID TERA Administration Pantoprazole Sodium 40 mg 03/14/20 07:30 03/18/20 10:18 Pantoprazole 40 Mg Tab PO 40 mg QDAC TERA Administration Sodium Bicarbonate 650 mg 03/15/20 20:00 03/18/20 22:01 Sodium Bicarbonate 650 Mg Tab PO 650 mg TID TERA Administration Sucralfate 1 gm 03/14/20 07:30 03/18/20 22:02 Sucralfate 1 Gm Tab PO 1 gm ACHS TERA Administration Zinc Sulfate 220 mg 03/15/20 10:00 03/18/20 22:02 Zinc Sulfate 220 Mg Cap PO 220 mg BID TERA Administration
[2020-03-19] MEDS: SODIUM BICARBONATE 650 MG TAB PO SCH ×3 (10:00→22:03)
[2020-03-19] MEDS: SUCRALFATE 1 GM TAB PO SCH ×4 (10:38→22:03)
[2020-03-19] MEDS: carvediloL 6.25 MG TAB PO SCH ×2 (10:38→22:04)
[2020-03-19] MEDS: DEXAMETHASONE 4 MG TAB PO SCH (10:38)
[2020-03-19] MEDS: ASCORBIC ACID 500 MG TAB PO SCH ×2 (10:38→22:03)
[2020-03-19] MEDS: ZINC SULFATE 220 MG CAP PO SCH ×2 (10:38→22:03)
[2020-03-19] MEDS: amLODIPine 10 MG TAB PO SCH (10:39)
[2020-03-19] MEDS: CHOLECALCIFEROL (VIT D3) 5,000 UNIT TAB PO SCH (10:39)
[2020-03-19] MEDS: PANTOPRAZOLE 40 MG TAB PO SCH (10:49)
[2020-03-19] MEDS: INSULIN GLARGINE 100 UNITS/ML SUB-Q SCH (12:00)
--- NOTE | 2020-03-19 16:07 | Progress Note ---
Assessment and Plan 1. 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 Renal US ordered, pending. Nephrotic range proteinuria. ANGIE, ANCA, GBM Ab, Complements and SPEP ordered. Monitor renal function. Creatinine leveled off. Renal prognosis is guarded. Avoid nephrotoxic agents. Meds dosage based on GFR. Monitor for DENT REMOVER needs. 2. FEN: Hyperkalemia, improved. Metabolic acidosis, PO Sodium bicarbonate. Hyponatremia, improved, monitor. Diuretics as needed. Monitor lytes. 3. Acute respiratory failure with hypoxia: Due to COVID-19 pneumonia. Patient currently on NC O2. DuoNeb as needed. Followed by Pulmonary. 4. COVID-19 virus infection: On Dexamethasone. Patient is not a candidate for Remdesivir due to low GFR. Followed by ID. Follow the inflammatory markers. 5. Diabetes mellitus type 2: Follow blood glucose with QACHS with SSI. Consistent carb diet. 6. Hypertension: Monitor BP. 7. Anemia, POA: Monitor. Subjective: Patient was seen and examined at the bedside. No acute events reported overnight. Examination: General appearance: well-developed, well-nourished, appears stated age, obese, n o distress HEENT: ATNC, ARU[place] Neck: supple Respiratory: rales heard Cardiology: regular, S1S2, no murmur Gastrointestinal: normoactive bowel sounds, no tenderness, not distended, obese Integumentary: no rash, warm and dry Neurologic: able to move extremities Ext: no edema Subjective Date of service: 03/19/20 Objective - Vital Signs Vital signs: Vital Signs - 12hr 03/19/20 03/19/20 03/19/20 07:47 11:48 13:55 Temperature 97.3 F L Pulse Rate 55 L Respiratory 18 Rate Blood Pressure 161/59 O2 Sat by Pulse 92 93 95 Oximetry - Lab 03/14/20 05:40 03/20/20 04:29 Most recent lab results Calcium 8.4 mg/dL (8.4-10.2) 03/19/20 04:34 Phosphorus 3.20 mg/dL (2.5-4.5) 03/15/20 05:39 Magnesium 2.00 mg/dL (1.7-2.3) 03/15/20 05:39 Urine Creatinine 89.5 mg/dL (0.1-20.0) H 03/14/20 Unknown Urine Total Protein 826 mg/dL (5-11.8) H 03/14/20 Unknown Medications & Allergies - Medications Allergies/Adverse Reactions: Allergies No Known Allergies Allergy (Verified 07/31/18 07:06) Home Medications: Home Medications Medication Instructions Recorded Confirmed Last Taken Type Albuterol Mdi (or & Nicu Only) 2 puff IH QID PRN #1 inhalation 08/07/18 03/14/20 Unknown Rx [ProAir HFA Inhaler] Sucralfate [Carafate] 1 gm PO ACHS #30 tablet 08/07/18 03/14/20 03/13/20 Rx Insulin Regular, Human [HumuLIN R] 0 unit SQ AC #1 vial 08/11/18 03/14/20 Unknown Rx Labetalol HCl [Labetalol 300mg TAB] 300 mg PO BID #60 tablet 11/11/19 03/14/20 03/14/20 Rx Active Medications: Generic Name Dose Route Start Last Admin Trade Name Freq PRN Reason Stop Dose Admin Albuterol 2 puff 03/14/20 04:19 Albuterol 8.5 Gm Mdi Inhalation IH QID PRN Shortness Of Breath Amlodipine Besylate 10 mg 03/16/20 10:00 03/19/20 10:39 Amlodipine 10 Mg Tab PO 10 mg QDAY TERA Administration Ascorbic Acid 1,000 mg 03/15/20 10:00 03/19/20 10:38 Ascorbic Acid 500 Mg Tab PO 1,000 mg BID TERA Administration Carvedilol 6.25 mg 03/16/20 10:00 03/19/20 10:38 Carvedilol 6.25 Mg Tab PO 6.25 mg BID TERA Administration Cholecalciferol 5,000 unit 03/15/20 10:00 03/19/20 10:39 Cholecalciferol (Vit D3) 5,000 Unit Tab PO 5,000 unit DAILY TERA Administration Dexamethasone 6 mg 03/17/20 10:00 03/19/20 10:38 Dexamethasone 4 Mg Tab PO 03/23/20 12:00 6 mg DAILY TERA Administration Heparin Sodium (Porcine) 5,000 unit 03/14/20 06:00 03/19/20 05:24 Heparin 5,000 Unit/1 Ml Vial SUB-Q 5,000 unit Q8HR TERA Administration Hydralazine HCl 5 mg 03/16/20 09:43 03/17/20 06:09 Hydralazine 20 Mg/1 Ml Inj IV 5 mg Q4HR PRN Administration Hypertension Insulin Glargine 25 units 03/15/20 16:42 03/18/20 10:18 Insulin Glargine 100 Units/Ml SUB-Q 25 units QAM TERA Administration Insulin Human Regular 0 unit 03/15/20 11:30 03/18/20 22:12 Insulin Regular, Human 100 Unit/Ml 3ml Vial SUB-Q 6 unit ACHS TERA Administration Protocol Insulin Human Regular 10 unit 03/16/20 07:30 03/18/20 17:39 Insulin Regular, Human 100 Unit/Ml 3ml Vial SUB-Q 10 unit AC TERA Administration Labetalol HCl 300 mg 03/14/20 10:00 03/19/20 10:38 Labetalol 200 Mg Tab PO 300 mg BID TERA Administration Pantoprazole Sodium 40 mg 03/14/20 07:30 03/19/20 10:49 Pantoprazole 40 Mg Tab PO 40 mg QDAC TERA Administration Sodium Bicarbonate 650 mg 03/15/20 20:00 03/18/20 22:01 Sodium Bicarbonate 650 Mg Tab PO 650 mg TID TERA Administration Sucralfate 1 gm 03/14/20 07:30 03/19/20 10:38 Sucralfate 1 Gm Tab PO 1 gm ACHS TERA Administration Zinc Sulfate 220 mg 03/15/20 10:00 03/19/20 10:38 Zinc Sulfate 220 Mg Cap PO 220 mg BID TERA Administration
[2020-03-20] MEDS: HEPARIN 5,000 UNIT/1 ML VIAL SUB-Q SCH ×3 (05:11→22:29)
[2020-03-20 07:10] LABS: Calcium 8.3 mg/dL (8.4-10.2)
[2020-03-20] MEDS: INSULIN REGULAR, HUMAN 100 UNIT/ML 3ML VIAL SUB-Q SCH ×7 (07:30→22:28)
--- NOTE | 2020-03-20 07:53 | Progress Note ---
Assessment and Plan 1. 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 Renal US ordered, pending. Nephrotic range proteinuria. ANGIE, ANCA, GBM Ab, Complements and SPEP ordered. Monitor renal function. Creatinine leveled off. Renal prognosis is guarded. Avoid nephrotoxic agents. Meds dosage based on GFR. Monitor for BUSINESS COMMUNICATIONS INSTRUCTOR needs. 2. FEN: Hyperkalemia, improved. Metabolic acidosis, PO Sodium bicarbonate. Hyponatremia, monitor. Diuretics as needed. Monitor lytes. 3. Acute respiratory failure with hypoxia: Due to COVID-19 pneumonia. Patient currently on NC O2 (salter). DuoNeb as needed. Followed by Pulmonary. 4. COVID-19 virus infection: On Dexamethasone. Patient is not a candidate for Remdesivir due to low GFR. Followed by ID. Follow the inflammatory markers. 5. Diabetes mellitus type 2: Follow blood glucose with QACHS with SSI. Consistent carb diet. 6. Hypertension: Monitor BP. 7. Anemia, POA: Monitor. Subjective: Patient was seen and examined at the bedside. No acute events reported overnight. Examination: General appearance: well-developed, well-nourished, appears stated age, obese, no distress HEENT: ATNC, ARUNA Neck: supple Respiratory: rales heard Cardiology: regular, S1S2, no murmur Gastrointestinal: normoactive bowel sounds, no tenderness, not distended, obese Integumentary: no rash, warm and dry Neurologic: able to move extremities Ext: no edema Subjective Date of service: 03/20/20 Objective - Vital Signs Vital signs: Vital Signs - 12hr 03/19/20 03/20/20 03/20/20 21:59 04:00 04:03 Temperature 97.5 F L 97.8 F Pulse Rate 62 63 Respiratory 16 16 Rate Blood Pressure 146/57 Blood Pressure 148/55 [Left] O2 Sat by Pulse 93 87 87 Oximetry - Lab 03/14/20 05:40 03/20/20 04:29 Most recent lab results Calcium 8.3 mg/dL (8.4-10.2) L 03/20/20 04:29 Phosphorus 3.20 mg/dL (2.5-4.5) 03/15/20 05:39 Magnesium 2.00 mg/dL (1.7-2.3) 03/15/20 05:39 Urine Creatinine 89.5 mg/dL (0.1-20.0) H 03/14/20 Unknown Urine Total Protein 826 mg/dL (5-11.8) H 03/14/20 Unknown Medications & Allergies - Medications Allergies/Adverse Reactions: Allergies No Known Allergies Allergy (Verified 07/31/18 07:06) Home Medications: Home Medications Medication Instructions Recorded Confirmed Last Taken Type Albuterol Mdi (or & Nicu Only) 2 puff IH QID PRN #1 inhalation 08/07/18 03/14/20 Unknown Rx [ProAir HFA Inhaler] Sucralfate [Carafate] 1 gm PO ACHS #30 tablet 08/07/18 03/14/20 03/13/20 Rx Insulin Regular, Human [HumuLIN R] 0 unit SQ AC #1 vial 08/11/18 03/14/20 Unknown Rx Labetalol HCl [Labetalol 300mg TAB] 300 mg PO BID #60 tablet 11/11/19 03/14/20 03/14/20 Rx Active Medications: Generic Name Dose Route Start Last Admin Trade Name Freq PRN Reason Stop Dose Admin Albuterol 2 puff 03/14/20 04:19 Albuterol 8.5 Gm Mdi Inhalation IH QID PRN Shortness Of Breath Amlodipine Besylate 10 mg 03/16/20 10:00 03/19/20 10:39 Amlodipine 10 Mg Tab PO 10 mg QDAY TERA Administration Ascorbic Acid 1,000 mg 03/15/20 10:00 03/19/20 22:03 Ascorbic Acid 500 Mg Tab PO 1,000 mg BID TERA Administration Carvedilol 6.25 mg 03/16/20 10:00 03/19/20 22:04 Carvedilol 6.25 Mg Tab PO 6.25 mg BID TERA Administration Cholecalciferol 5,000 unit 03/15/20 10:00 03/19/20 10:39 Cholecalciferol (Vit D3) 5,000 Unit Tab PO 5,000 unit DAILY TERA Administration Dexamethasone 6 mg 03/17/20 10:00 03/19/20 10:38 Dexamethasone 4 Mg Tab PO 03/23/20 12:00 6 mg DAILY TERA Administration Heparin Sodium (Porcine) 5,000 unit 03/14/20 06:00 03/20/20 05:11 Heparin 5,000 Unit/1 Ml Vial SUB-Q 5,000 unit Q8HR TERA Administration Hydralazine HCl 5 mg 03/16/20 09:43 03/17/20 06:09 Hydralazine 20 Mg/1 Ml Inj IV 5 mg Q4HR PRN Administration Hypertension Insulin Glargine 25 units 03/15/20 16:42 03/19/20 12:00 Insulin Glargine 100 Units/Ml SUB-Q 25 units QAM TERA Administration Insulin Human Regular 0 unit 03/15/20 11:30 03/19/20 22:05 Insulin Regular, Human 100 Unit/Ml 3ml Vial SUB-Q 10 unit ACHS TERA Administration Protocol Insulin Human Regular 10 unit 03/16/20 07:30 03/19/20 17:28 Insulin Regular, Human 100 Unit/Ml 3ml Vial SUB-Q 10 unit AC TERA Administration Labetalol HCl 300 mg 03/14/20 10:00 03/19/20 22:05 Labetalol 200 Mg Tab PO 300 mg BID TERA Administration Pantoprazole Sodium 40 mg 03/14/20 07:30 03/19/20 10:49 Pantoprazole 40 Mg Tab PO 40 mg QDAC TERA Administration Sodium Bicarbonate 650 mg 03/15/20 20:00 03/19/20 22:03 Sodium Bicarbonate 650 Mg Tab PO 650 mg TID TERA Administration Sucralfate 1 gm 03/14/20 07:30 03/19/20 22:03 Sucralfate 1 Gm Tab PO 1 gm ACHS TERA Administration Zinc Sulfate 220 mg 03/15/20 10:00 03/19/20 22:03 Zinc Sulfate 220 Mg Cap PO 220 mg BID TERA Administration
[2020-03-20] MEDS: SUCRALFATE 1 GM TAB PO SCH ×4 (08:35→22:24)
[2020-03-20] MEDS: INSULIN GLARGINE 100 UNITS/ML SUB-Q SCH ×2 (08:36→13:15)
[2020-03-20] MEDS: PANTOPRAZOLE 40 MG TAB PO SCH (08:36)
[2020-03-20] MEDS: SODIUM BICARBONATE 650 MG TAB PO SCH ×3 (08:36→20:28)
[2020-03-20] MEDS: DEXAMETHASONE 4 MG TAB PO SCH (11:12)
[2020-03-20] MEDS: ASCORBIC ACID 500 MG TAB PO SCH ×2 (11:12→22:25)
[2020-03-20] MEDS: ZINC SULFATE 220 MG CAP PO SCH ×2 (11:14→22:25)
[2020-03-20] MEDS: amLODIPine 10 MG TAB PO SCH (11:19)
[2020-03-20] MEDS: carvediloL 6.25 MG TAB PO SCH ×2 (11:19→22:25)
[2020-03-20] MEDS: CHOLECALCIFEROL (VIT D3) 5,000 UNIT TAB PO SCH (11:20)
--- NOTE | 2020-03-20 12:41 | Progress Note ---
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 s/p gentle iv fluid but now d/aron We consulted nephrology for further evaluation and treatment. Recheck CBC BMP in the morning. -- Acute respiratory failure with hypoxia Due to COVID-19 pneumonia Patient currently on 6 L O2 DuoNeb by nebulizer every 4 hours as needed. Decadron 6 mg IV daily. Reconsult pulmonary as well as infectious disease for evaluation and treatment. We follow the inflammatory markers. As needed IV Lasix to prevent pulmonary edema --Diabetes mellitus type 2 Follow blood glucose with QACHS with SSI Consistent carb diet, will add long-acting insulin -- COVID-19 virus infection Start on dexamethasone, patient is not a candidate for remdesivir due to declining renal function DuoNeb by nebulizer every 4 hours as needed. Decadron 6 mg IV daily. Reconsult pulmonary as well as infectious disease for evaluation and treatment. We follow the inflammatory markers. --Morbid obesity, risks for poor outcome with COVID-19 Weight reduction diet and exercise when patient clinically more stable as outpatient --DVT prophylaxis, Heparin 5000 units subcu every 8 hours Daily course: 03/14: Covid test is positive, started on dexamethasone. Will DC empiric antibiotics as procalcitonin level is normal. Follow ID recommendation, follow inflammatory markers. Patient is not a candidate for remdesivir due to declining renal function. Follow nephrology recommendation, monitor BMP 03/15; blood glucose greater than 400 today, started on long-acting and premeal insulin along with sliding scale. patient WAS ON 40L [place] THIS AM, now on 12 L high flow O2 today, will follow pulmonary recommendation. Continue Decadron, follow inflammatory markers, follow BMP, check A1c 03/16: Patient today on 8L O2, cont to follow inflammatory markers. Continue Decadron, minimize iv fluid trnsfusion. follow bmp. 03/17; patient is on 12 L of oxygen, ID is following the patient. Continue with Decadron. Nephrology is following. 03/18; patient is on 13 L of oxygen, ID and nephrology is following the patient. Patient is on Decadron, not a candidate for remdesivir because of her kidney function. Creatinine is trending down slightly. 03/19; patient is on 14 L of oxygen. ID, pulmonary and nephrology consult appreciated. Pulmonary recommends evaluation for LTAC because patient has prolonged weaning of high flow oxygen. 03/20: patient on 12L O2 today, cont wean off O2 Subjective Date of service: 03/20/20 Interval history: Patient seen and examined. Medical records and medication list reviewed. No acute event overnight noted by the RN. Patient complains of difficulty breathing even on resting. She is currently on 12 L nasal cannula Patient is tolerating diet. Patient tested positive for Covid Discussed plan of care at bedside with patient with a mobile tonio egg breaking machine operator. Objective - Exam Narrative Exam: Limited physical exam due to COVID-19 pandemic to minimize transmission of the disease. Vital reviewed and stable. GENERAL: well-developed morbidly obese elderly female on bed appeared to be in mild discomfort. HEENT: Normocephalic. Atraumatic. NECK: Supple. CHEST/LUNGS: breathing slightly labored with 12 L nasal cannula. HEART/CARDIOVASCULAR: Heart rate stable on telemetry ABDOMEN: Obese SKIN: There is no rash NEURO: No focal motor deficit. Follows command. MUSCULOSKELETAL: No joint effusion EXTRIMITY: No swelling, no cyanosis or clubbing. PSYCH: Cooperative. - Constitutional Vitals: Vital Signs - 12hr 03/20/20 03/20/20 03/20/20 04:00 04:03 10:00 Temperature 97.8 F Pulse Rate 63 Respiratory 16 Rate Blood Pressure 146/57 O2 Sat by Pulse 87 87 98 Oximetry 03/20/20 11:19 Temperature Pulse Rate Respiratory Rate Blood Pressure 140/55 O2 Sat by Pulse Oximetry - Labs CBC & Chem 7: 03/14/20 05:40 03/24/20 04:23 Labs: Abnormal lab results 03/19/20 03/19/20 03/20/20 Range/Units 16:32 21:44 04:29 Sodium 136 L (137-145) mmol/L Carbon Dioxide 15 L (22-30) mmol/L BUN 107 H (7-17) mg/dL Creatinine 3.5 H (0.6-1.2) mg/dL Glucose 206 H (65-100) mg/dL POC Glucose 267 H 352 H (70-105) mg/dL Calcium 8.3 L (8.4-10.2) mg/dL 03/20/20 03/20/20 Range/Units 07:48 11:16 Sodium (137-145) mmol/L Carbon Dioxide (22-30) mmol/L BUN (7-17) mg/dL Creatinine (0.6-1.2) mg/dL Glucose (65-100) mg/dL POC Glucose 125 H 144 H (70-105) mg/dL Calcium (8.4-10.2) mg/dL HEART Score - HEART Score Troponin: Troponin T 0.013 ng/mL (0.00-0.029) 03/14/20 02:52
--- NOTE | 2020-03-20 14:00 | Ultrasound Report ---
ULTRASOUND RENAL INDICATION / CLINICAL INFORMATION: Acute kidney injury. COMPARISON: None available. FINDINGS: RIGHT KIDNEY: Length = 9.4 cm. [normal > 9 cm] - Parenchymal Thickness = 1.9 cm. [normal > 1.5 cm] - Echogenicity: Increased - Hydronephrosis: None. - Cyst or mass: No significant abnormality. - Stones: None seen. LEFT KIDNEY: Length = 9.7 cm. [normal > 9 cm] - Parenchymal Thickness = 1.5 cm. [normal > 1.5 cm] - Echogenicity: Increased - Hydronephrosis: None. - Cyst or mass: A 3 cm cyst is identified in the superior left kidney. - Stones: None seen. URINARY BLADDER: No significant abnormality. FREE FLUID: None. ADDITIONAL FINDINGS: None. IMPRESSION: Echogenic kidneys consistent with medical renal disease. No hydronephrosis. 3 cm left renal cyst. Signer Name: Bart Belle Jr, MD Signed: 03/20/2020 1:55 PM Workstation Name: [id number]
--- NOTE | 2020-03-20 14:50 | Progress Note ---
Assessment and Plan 75 y/o female with acute respiratory failure secondary to COVID 19 pneumonia 03/20/20: Continue to wean For sats >88%. Prone as tolerated if possible. Still would consider LTACH evaluation. 03/19/20: no new recs for today. Still would consider at least a trial of high dose lasix to see if that will help with oxygen requirement. Ask CM this week about LTACH given prolonged weaning. 03/18/20: Wean FiO2 as tolerated. Will ask renal about the possiblity of HIGH dose lasix at least once to see if it will help with volume removal. Antibodies not assessed. Need to check with CM about LTACH availability and qualifications. 03/17/20: Will ask RT to be more aggressive about weaning back down today. Still would check for antibodies to see if patient would qualify for plasma therapy. No additional IVF's unless absolutely necessary. Prognosis remains guarded. Continue steroids. May need to consider LTACH if weaning becomes more difficult and prolonged. 03/16/20: Continue to wean FiO2 for sats >88%. Still would consider checking antibodies to see if reactive and if patient would qualify for plasma therapy. 03/15/20: No new recs from today, please see below. 1. Wean FiO2 for sats >88% 2. Prone as tolerated during the day and sleep prone at night if possible 3. Assess antibody status to see if patient would benefit from convalescent plasma 4. Agree with steroids for 10 days total 5. Patient does have chronic renal disease, but if possible would not give IVF. Need to keep these patients as dry as possible. Await renal follow up and recs 6. No aerosol therapy Guarded prognosis Subjective Date of service: 03/20/20 Interval history: Down to 10 liters now. Sats holding. Objective Vital Signs - 12hr 03/20/20 03/20/20 03/20/20 04:00 04:03 08:00 Temperature 97.8 F Pulse Rate 63 Respiratory 16 Rate Blood Pressure 146/57 O2 Sat by Pulse 87 87 91 Oximetry 03/20/20 03/20/20 03/20/20 10:00 11:18 11:19 Temperature 97.8 F Pulse Rate 61 Respiratory 22 Rate Blood Pressure 147/55 140/55 O2 Sat by Pulse 98 84 Oximetry CBC and BMP: 03/14/20 05:40 03/20/20 04:29 ABG, PT/INR, D-dimer: PT/INR, D-dimer PT 13.6 Sec. (12.2-14.9) 03/14/20 02:52 INR 1.05 (0.87-1.13) 03/14/20 02:52 D-Dimer 845.52 ng/mlDDU (0-234) H 03/14/20 02:52 Abnormal lab findings: Abnormal Labs 03/14/20 03/14/20 03/14/20 02:52 02:52 02:52 RBC 3.40 L Hgb 9.4 L Hct 28.8 L RDW 15.6 H Lymph % (Auto) 6.2 L Lymph # (Auto) 0.6 L Seg Neutrophils % 87.6 H Seg Neutrophils # 8.2 H D-Dimer 845.52 H Sodium 131 L Potassium Chloride Carbon Dioxide 17 L BUN 44 H Creatinine 2.9 H Glucose 276 H POC Glucose Hemoglobin A1c Calcium 7.8 L Ferritin Lactate Dehydrogenase C-Reactive Protein NT-Pro-B Natriuret Pep Total Protein 5.5 L Albumin 2.8 L Urine Creatinine Urine Total Protein Coronavirus (PCR) 03/14/20 03/14/20 03/14/20 02:52 02:52 05:40 RBC 3.57 L Hgb 9.9 L Hct RDW 15.9 H Lymph % (Auto) 4.5 L Lymph # (Auto) 0.5 L Seg Neutrophils % 91.9 H Seg Neutrophils # 9.2 H D-Dimer Sodium Potassium Chloride Carbon Dioxide BUN Creatinine Glucose POC Glucose Hemoglobin A1c Calcium Ferritin 273.0 H Lactate Dehydrogenase 413 H C-Reactive Protein 10.30 H NT-Pro-B Natriuret Pep 23632 H Total Protein Albumin Urine Creatinine Urine Total Protein Coronavirus (PCR) 03/14/20 03/14/20 03/14/20 05:40 Unknown Unknown RBC Hgb Hct RDW Lymph % (Auto) Lymph # (Auto) Seg Neutrophils % Seg Neutrophils # D-Dimer Sodium Potassium Chloride Carbon Dioxide BUN Creatinine Glucose POC Glucose Hemoglobin A1c Calcium Ferritin Lactate Dehydrogenase C-Reactive Protein 11.90 H NT-Pro-B Natriuret Pep Total Protein Albumin Urine Creatinine 89.5 H Urine Total Protein 826 H Coronavirus (PCR) Positive A 03/15/20 03/15/20 03/15/20 05:39 12:07 14:31 RBC Hgb Hct RDW Lymph % (Auto) Lymph # (Auto) Seg Neutrophils % Seg Neutrophils # D-Dimer Sodium 134 L Potassium Chloride Carbon Dioxide 15 L BUN 64 H Creatinine 3.5 H Glucose 532 H* POC Glucose 504 H Hemoglobin A1c 8.0 H Calcium Ferritin Lactate Dehydrogenase C-Reactive Protein NT-Pro-B Natriuret Pep Total Protein Albumin Urine Creatinine Urine Total Protein Coronavirus (PCR) 03/15/20 03/15/20 03/16/20 15:25 21:15 04:15 RBC Hgb Hct RDW Lymph % (Auto) Lymph # (Auto) Seg Neutrophils % Seg Neutrophils # D-Dimer Sodium Potassium 5.2 H Chloride 108.5 H Carbon Dioxide 15 L BUN 75 H Creatinine 3.6 H Glucose 305 H POC Glucose 528 H 438 H Hemoglobin A1c Calcium 8.2 L Ferritin Lactate Dehydrogenase C-Reactive Protein NT-Pro-B Natriuret Pep Total Protein Albumin Urine Creatinine Urine Total Protein Coronavirus (PCR) 03/16/20 03/16/20 03/16/20 08:05 11:29 17:25 RBC Hgb Hct RDW Lymph % (Auto) Lymph # (Auto) Seg Neutrophils % Seg Neutrophils # D-Dimer Sodium Potassium Chloride Carbon Dioxide BUN Creatinine Glucose POC Glucose 262 H 255 H 268 H Hemoglobin A1c Calcium Ferritin Lactate Dehydrogenase C-Reactive Protein NT-Pro-B Natriuret Pep Total Protein Albumin Urine Creatinine Urine Total Protein Coronavirus (PCR) 03/16/20 03/17/20 03/17/20 23:01 04:32 07:44 RBC Hgb Hct RDW Lymph % (Auto) Lymph # (Auto) Seg Neutrophils % Seg Neutrophils # D-Dimer Sodium Potassium Chloride Carbon Dioxide 20 L BUN 79 H Creatinine 3.5 H Glucose 121 H POC Glucose 195 H 129 H Hemoglobin A1c Calcium Ferritin Lactate Dehydrogenase C-Reactive Protein NT-Pro-B Natriuret Pep Total Protein Albumin Urine Creatinine Urine Total Protein Coronavirus (PCR) 03/17/20 03/17/20 03/17/20 12:33 16:12 22:04 RBC Hgb Hct RDW Lymph % (Auto) Lymph # (Auto) Seg Neutrophils % Seg Neutrophils # D-Dimer Sodium Potassium Chloride Carbon Dioxide BUN Creatinine Glucose POC Glucose 258 H 213 H 218 H Hemoglobin A1c Calcium Ferritin Lactate Dehydrogenase C-Reactive Protein NT-Pro-B Natriuret Pep Total Protein Albumin Urine Creatinine Urine Total Protein Coronavirus (PCR) 03/18/20 03/18/20 03/18/20 04:24 07:56 12:09 RBC Hgb Hct RDW Lymph % (Auto) Lymph # (Auto) Seg Neutrophils % Seg Neutrophils # D-Dimer Sodium Potassium Chloride Carbon Dioxide 20 L BUN 91 H Creatinine 3.4 H Glucose 150 H POC Glucose 118 H 254 H Hemoglobin A1c Calcium Ferritin Lactate Dehydrogenase C-Reactive Protein NT-Pro-B Natriuret Pep Total Protein Albumin Urine Creatinine Urine Total Protein Coronavirus (PCR) 03/18/20 03/18/20 03/19/20 16:51 21:59 04:34 RBC Hgb Hct RDW Lymph % (Auto) Lymph # (Auto) Seg Neutrophils % Seg Neutrophils # D-Dimer Sodium Potassium Chloride Carbon Dioxide 20 L BUN 94 H Creatinine 3.4 H Glucose 132 H POC Glucose 240 H 269 H Hemoglobin A1c Calcium Ferritin Lactate Dehydrogenase C-Reactive Protein NT-Pro-B Natriuret Pep Total Protein Albumin Urine Creatinine Urine Total Protein Coronavirus (PCR) 03/19/20 03/19/20 03/19/20 11:45 16:32 21:44 RBC Hgb Hct RDW Lymph % (Auto) Lymph # (Auto) Seg Neutrophils % Seg Neutrophils # D-Dimer Sodium Potassium Chloride Carbon Dioxide BUN Creatinine Glucose POC Glucose 179 H 267 H 352 H Hemoglobin A1c Calcium Ferritin Lactate Dehydrogenase C-Reactive Protein NT-Pro-B Natriuret Pep Total Protein Albumin Urine Creatinine Urine Total Protein Coronavirus (PCR) 03/20/20 03/20/20 03/20/20 04:29 07:48 11:16 RBC Hgb Hct RDW Lymph % (Auto) Lymph # (Auto) Seg Neutrophils % Seg Neutrophils # D-Dimer Sodium 136 L Potassium Chloride Carbon Dioxide 15 L BUN 107 H Creatinine 3.5 H Glucose 206 H POC Glucose 125 H 144 H Hemoglobin A1c Calcium 8.3 L Ferritin Lactate Dehydrogenase C-Reactive Protein NT-Pro-B Natriuret Pep Total Protein Albumin Urine Creatinine Urine Total Protein Coronavirus (PCR)
[2020-03-21] MEDS: HEPARIN 5,000 UNIT/1 ML VIAL SUB-Q SCH ×3 (05:23→23:17)
[2020-03-21 05:53] LABS: Calcium 8.3 mg/dL (8.4-10.2)
[2020-03-21] MEDS: INSULIN REGULAR, HUMAN 100 UNIT/ML 3ML VIAL SUB-Q SCH ×7 (07:30→23:16)
[2020-03-21] MEDS: PANTOPRAZOLE 40 MG TAB PO SCH (07:45)
[2020-03-21] MEDS: SUCRALFATE 1 GM TAB PO SCH ×4 (07:45→23:17)
[2020-03-21] MEDS: SODIUM BICARBONATE 650 MG TAB PO SCH ×3 (07:45→23:16)
--- NOTE | 2020-03-21 07:54 | Progress Note ---
Assessment and Plan 1. 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 Renal US ordered, pending. Nephrotic range proteinuria. COmplements normal. ANGIE, ANCA, GBM Ab and SPEP ordered. Monitor renal function. Creatinine leveled off. High BUN - pt is on steroids. Renal prognosis is guarded. Avoid nephrotoxic agents. Meds dosage based on GFR. Monitor for CARE COORDINATOR needs. 2. FEN: Hyperkalemia, improved. Metabolic acidosis, PO Sodium bicarbonate. Hyponatremia, monitor. Diuretics as needed. Monitor lytes. 3. Acute respiratory failure with hypoxia: Due to COVID-19 pneumonia. Patient currently on NC O2 (salter). DuoNeb as needed. Followed by Pulmonary. 4. COVID-19 virus infection: On Dexamethasone. Patient is not a candidate for Remdesivir due to low GFR. Followed by ID. Follow the inflammatory markers. 5. Diabetes mellitus type 2: Follow blood glucose with QACHS with SSI. Consistent carb diet. 6. Hypertension: Monitor BP. 7. Anemia, POA: Monitor. Subjective: Patient was seen and examined at the bedside. No acute events reported overnight. Examination: General appearance: well-developed, well-nourished, appears stated age, obese, no distress HEENT: ATNC, ARUNA Neck: supple Respiratory: rales heard Cardiology: regular, S1S2, no murmur Gastrointestinal: normoactive bowel sounds, no tenderness, not distended, obese Integumentary: no rash, warm and dry Neurologic: able to move extremities Ext: no edema Subjective Date of service: 03/21/20 Objective - Vital Signs Vital signs: Vital Signs - 12hr 03/20/20 03/20/20 03/20/20 20:00 20:32 21:01 Temperature 97.5 F L Pulse Rate 63 Respiratory 18 20 Rate Respiratory Rate [Abdomen] Blood Pressure 127/56 127/49 O2 Sat by Pulse 95 93 Oximetry 03/20/20 03/20/20 03/20/20 22:00 22:07 22:25 Temperature Pulse Rate 61 Respiratory Rate Respiratory 18 Rate [Abdomen] Blood Pressure 127/56 O2 Sat by Pulse 95 Oximetry 03/20/20 03/21/20 03/21/20 22:30 03:34 04:25 Temperature 98.2 F Pulse Rate 61 66 Respiratory 20 Rate Respiratory Rate [Abdomen] Blood Pressure 127/56 158/68 O2 Sat by Pulse 93 93 Oximetry 03/21/20 07:47 Temperature Pulse Rate Respiratory Rate Respiratory Rate [Abdomen] Blood Pressure O2 Sat by Pulse 91 Oximetry - Lab 03/14/20 05:40 03/21/20 04:17 Most recent lab results Calcium 8.3 mg/dL (8.4-10.2) L 03/21/20 04:17 Phosphorus 3.20 mg/dL (2.5-4.5) 03/15/20 05:39 Magnesium 2.00 mg/dL (1.7-2.3) 03/15/20 05:39 Urine Creatinine 89.5 mg/dL (0.1-20.0) H 03/14/20 Unknown Urine Total Protein 826 mg/dL (5-11.8) H 03/14/20 Unknown Medications & Allergies - Medications Allergies/Adverse Reactions: Allergies No Known Allergies Allergy (Verified 07/31/18 07:06) Home Medications: Home Medications Medication Instructions Recorded Confirmed Last Taken Type Albuterol Mdi (or & Nicu Only) 2 puff IH QID PRN #1 inhalation 08/07/18 03/14/20 Unknown Rx [ProAir HFA Inhaler] Sucralfate [Carafate] 1 gm PO ACHS #30 tablet 08/07/18 03/14/20 03/13/20 Rx Insulin Regular, Human [HumuLIN R] 0 unit SQ AC #1 vial 08/11/18 03/14/20 Unknown Rx Labetalol HCl [Labetalol 300mg TAB] 300 mg PO BID #60 tablet 11/11/19 03/14/20 03/14/20 Rx Active Medications: Generic Name Dose Route Start Last Admin Trade Name Freq PRN Reason Stop Dose Admin Albuterol 2 puff 03/14/20 04:19 Albuterol 8.5 Gm Mdi Inhalation IH QID PRN Shortness Of Breath Amlodipine Besylate 10 mg 03/16/20 10:00 03/20/20 11:19 Amlodipine 10 Mg Tab PO 10 mg QDAY TERA Administration Ascorbic Acid 1,000 mg 03/15/20 10:00 03/20/20 22:25 Ascorbic Acid 500 Mg Tab PO 1,000 mg BID TREA Administration Carvedilol 6.25 mg 03/16/20 10:00 03/20/20 22:25 Carvedilol 6.25 Mg Tab PO 6.25 mg BID TERA Administration Cholecalciferol 5,000 unit 03/15/20 10:00 03/20/20 11:20 Cholecalciferol (Vit D3) 5,000 Unit Tab PO 5,000 unit DAILY TERA Administration Dexamethasone 6 mg 03/17/20 10:00 03/20/20 11:12 Dexamethasone 4 Mg Tab PO 03/23/20 12:00 6 mg DAILY TERA Administration Heparin Sodium (Porcine) 5,000 unit 03/14/20 06:00 03/21/20 05:23 Heparin 5,000 Unit/1 Ml Vial SUB-Q 5,000 unit Q8HR TERA Administration Hydralazine HCl 5 mg 03/16/20 09:43 03/17/20 06:09 Hydralazine 20 Mg/1 Ml Inj IV 5 mg Q4HR PRN Administration Hypertension Insulin Glargine 25 units 03/15/20 16:42 03/20/20 13:15 Insulin Glargine 100 Units/Ml SUB-Q Not Given QAM [facility] Insulin Human Regular 0 unit 03/15/20 11:30 03/21/20 07:34 Insulin Regular, Human 100 Unit/Ml 3ml Vial SUB-Q Not Given ACHS [facility] Protocol Insulin Human Regular 10 unit 03/16/20 07:30 03/20/20 17:36 Insulin Regular, Human 100 Unit/Ml 3ml Vial SUB-Q 10 unit AC TERA Administration Labetalol HCl 300 mg 03/14/20 10:00 03/20/20 22:30 Labetalol 200 Mg Tab PO Not Given BID TERA Pantoprazole Sodium 40 mg 03/14/20 07:30 03/21/20 07:45 Pantoprazole 40 Mg Tab PO 40 mg QDAC TERA Administration Sodium Bicarbonate 650 mg 03/15/20 20:00 03/21/20 07:45 Sodium Bicarbonate 650 Mg Tab PO 650 mg TID TERA Administration Sucralfate 1 gm 03/14/20 07:30 03/21/20 07:45 Sucralfate 1 Gm Tab PO 1 gm ACHS TERA Administration Zinc Sulfate 220 mg 03/15/20 10:00 03/20/20 22:25 Zinc Sulfate 220 Mg Cap PO 220 mg BID TERA Administration
[2020-03-21] MEDS: DEXAMETHASONE 4 MG TAB PO SCH (10:01)
[2020-03-21] MEDS: ASCORBIC ACID 500 MG TAB PO SCH ×2 (10:01→23:17)
[2020-03-21] MEDS: carvediloL 6.25 MG TAB PO SCH ×2 (10:01→23:18)
[2020-03-21] MEDS: amLODIPine 10 MG TAB PO SCH (10:03)
[2020-03-21] MEDS: ZINC SULFATE 220 MG CAP PO SCH ×2 (10:03→23:17)
[2020-03-21] MEDS: INSULIN GLARGINE 100 UNITS/ML SUB-Q SCH (10:04)
[2020-03-21] MEDS: CHOLECALCIFEROL (VIT D3) 5,000 UNIT TAB PO SCH (10:04)
--- NOTE | 2020-03-21 14:54 | Progress Note ---
Assessment and Plan 75 y/o female with acute respiratory failure secondary to COVID 19 pneumonia 03/21/20: Continue to wean for sats >88%. Proning if able. LTACH is still an option. 03/20/20: Continue to wean For sats >88%. Prone as tolerated if possible. Still would consider LTACH evaluation. 03/19/20: no new recs for today. Still would consider at least a trial of high dose lasix to see if that will help with oxygen requirement. Ask CM this week about LTACH given prolonged weaning. 03/18/20: Wean FiO2 as tolerated. Will ask renal about the possiblity of HIGH dose lasix at least once to see if it will help with volume removal. Antibodies not assessed. Need to check with CM about LTACH availability and qualifications. 03/17/20: Will ask RT to be more aggressive about weaning back down today. Still would check for antibodies to see if patient would qualify for plasma therapy. No additional IVF's unless absolutely necessary. Prognosis remains guarded. Continue steroids. May need to consider LTACH if weaning becomes more difficult and prolonged. 03/16/20: Continue to wean FiO2 for sats >88%. Still would consider checking antibodies to see if reactive and if patient would qualify for plasma therapy. 03/15/20: No new recs from today, please see below. 1. Wean FiO2 for sats >88% 2. Prone as tolerated during the day and sleep prone at night if possible 3. Assess antibody status to see if patient would benefit from convalescent plasma 4. Agree with steroids for 10 days total 5. Patient does have chronic renal disease, but if possible would not give IVF. Need to keep these patients as dry as possible. Await renal follow up and recs 6. No aerosol therapy Guarded prognosis Subjective Date of service: 03/21/20 Interval history: No acute events. down to 10 liters now. Good sats. Objective Vital Signs - 12hr 03/21/20 03/21/20 03/21/20 03:34 04:25 07:47 Temperature 98.2 F Pulse Rate 66 Respiratory 20 Rate Blood Pressure 158/68 O2 Sat by Pulse 93 93 91 Oximetry 03/21/20 03/21/20 03/21/20 07:58 09:40 09:55 Temperature Pulse Rate 66 Respiratory Rate Blood Pressure 150/80 O2 Sat by Pulse 91 91 Oximetry CBC and BMP: 03/14/20 05:40 03/21/20 04:17 ABG, PT/INR, D-dimer: PT/INR, D-dimer PT 13.6 Sec. (12.2-14.9) 03/14/20 02:52 INR 1.05 (0.87-1.13) 03/14/20 02:52 D-Dimer 845.52 ng/mlDDU (0-234) H 03/14/20 02:52 Abnormal lab findings: Abnormal Labs 03/14/20 03/14/20 03/14/20 02:52 02:52 02:52 RBC 3.40 L Hgb 9.4 L Hct 28.8 L RDW 15.6 H Lymph % (Auto) 6.2 L Lymph # (Auto) 0.6 L Seg Neutrophils % 87.6 H Seg Neutrophils # 8.2 H D-Dimer 845.52 H Sodium 131 L Potassium Chloride Carbon Dioxide 17 L BUN 44 H Creatinine 2.9 H Glucose 276 H POC Glucose Hemoglobin A1c Calcium 7.8 L Ferritin Lactate Dehydrogenase C-Reactive Protein NT-Pro-B Natriuret Pep Total Protein 5.5 L Albumin 2.8 L Urine Creatinine Urine Total Protein Coronavirus (PCR) 03/14/20 03/14/20 03/14/20 02:52 02:52 05:40 RBC 3.57 L Hgb 9.9 L Hct RDW 15.9 H Lymph % (Auto) 4.5 L Lymph # (Auto) 0.5 L Seg Neutrophils % 91.9 H Seg Neutrophils # 9.2 H D-Dimer Sodium Potassium Chloride Carbon Dioxide BUN Creatinine Glucose POC Glucose Hemoglobin A1c Calcium Ferritin 273.0 H Lactate Dehydrogenase 413 H C-Reactive Protein 10.30 H NT-Pro-B Natriuret Pep 41063 H Total Protein Albumin Urine Creatinine Urine Total Protein Coronavirus (PCR) 03/14/20 03/14/20 03/14/20 05:40 Unknown Unknown RBC Hgb Hct RDW Lymph % (Auto) Lymph # (Auto) Seg Neutrophils % Seg Neutrophils # D-Dimer Sodium Potassium Chloride Carbon Dioxide BUN Creatinine Glucose POC Glucose Hemoglobin A1c Calcium Ferritin Lactate Dehydrogenase C-Reactive Protein 11.90 H NT-Pro-B Natriuret Pep Total Protein Albumin Urine Creatinine 89.5 H Urine Total Protein 826 H Coronavirus (PCR) Positive A 03/15/20 03/15/20 03/15/20 05:39 12:07 14:31 RBC Hgb Hct RDW Lymph % (Auto) Lymph # (Auto) Seg Neutrophils % Seg Neutrophils # D-Dimer Sodium 134 L Potassium Chloride Carbon Dioxide 15 L BUN 64 H Creatinine 3.5 H Glucose 532 H* POC Glucose 504 H Hemoglobin A1c 8.0 H Calcium Ferritin Lactate Dehydrogenase C-Reactive Protein NT-Pro-B Natriuret Pep Total Protein Albumin Urine Creatinine Urine Total Protein Coronavirus (PCR) 03/15/20 03/15/20 03/16/20 15:25 21:15 04:15 RBC Hgb Hct RDW Lymph % (Auto) Lymph # (Auto) Seg Neutrophils % Seg Neutrophils # D-Dimer Sodium Potassium 5.2 H Chloride 108.5 H Carbon Dioxide 15 L BUN 75 H Creatinine 3.6 H Glucose 305 H POC Glucose 528 H 438 H Hemoglobin A1c Calcium 8.2 L Ferritin Lactate Dehydrogenase C-Reactive Protein NT-Pro-B Natriuret Pep Total Protein Albumin Urine Creatinine Urine Total Protein Coronavirus (PCR) 03/16/20 03/16/20 03/16/20 08:05 11:29 17:25 RBC Hgb Hct RDW Lymph % (Auto) Lymph # (Auto) Seg Neutrophils % Seg Neutrophils # D-Dimer Sodium Potassium Chloride Carbon Dioxide BUN Creatinine Glucose POC Glucose 262 H 255 H 268 H Hemoglobin A1c Calcium Ferritin Lactate Dehydrogenase C-Reactive Protein NT-Pro-B Natriuret Pep Total Protein Albumin Urine Creatinine Urine Total Protein Coronavirus (PCR) 03/16/20 03/17/20 03/17/20 23:01 04:32 07:44 RBC Hgb Hct RDW Lymph % (Auto) Lymph # (Auto) Seg Neutrophils % Seg Neutrophils # D-Dimer Sodium Potassium Chloride Carbon Dioxide 20 L BUN 79 H Creatinine 3.5 H Glucose 121 H POC Glucose 195 H 129 H Hemoglobin A1c Calcium Ferritin Lactate Dehydrogenase C-Reactive Protein NT-Pro-B Natriuret Pep Total Protein Albumin Urine Creatinine Urine Total Protein Coronavirus (PCR) 03/17/20 03/17/20 03/17/20 12:33 16:12 22:04 RBC Hgb Hct RDW Lymph % (Auto) Lymph # (Auto) Seg Neutrophils % Seg Neutrophils # D-Dimer Sodium Potassium Chloride Carbon Dioxide BUN Creatinine Glucose POC Glucose 258 H 213 H 218 H Hemoglobin A1c Calcium Ferritin Lactate Dehydrogenase C-Reactive Protein NT-Pro-B Natriuret Pep Total Protein Albumin Urine Creatinine Urine Total Protein Coronavirus (PCR) 03/18/20 03/18/20 03/18/20 04:24 07:56 12:09 RBC Hgb Hct RDW Lymph % (Auto) Lymph # (Auto) Seg Neutrophils % Seg Neutrophils # D-Dimer Sodium Potassium Chloride Carbon Dioxide 20 L BUN 91 H Creatinine 3.4 H Glucose 150 H POC Glucose 118 H 254 H Hemoglobin A1c Calcium Ferritin Lactate Dehydrogenase C-Reactive Protein NT-Pro-B Natriuret Pep Total Protein Albumin Urine Creatinine Urine Total Protein Coronavirus (PCR) 03/18/20 03/18/20 03/19/20 16:51 21:59 04:34 RBC Hgb Hct RDW Lymph % (Auto) Lymph # (Auto) Seg Neutrophils % Seg Neutrophils # D-Dimer Sodium Potassium Chloride Carbon Dioxide 20 L BUN 94 H Creatinine 3.4 H Glucose 132 H POC Glucose 240 H 269 H Hemoglobin A1c Calcium Ferritin Lactate Dehydrogenase C-Reactive Protein NT-Pro-B Natriuret Pep Total Protein Albumin Urine Creatinine Urine Total Protein Coronavirus (PCR) 03/19/20 03/19/20 03/19/20 11:45 16:32 21:44 RBC Hgb Hct RDW Lymph % (Auto) Lymph # (Auto) Seg Neutrophils % Seg Neutrophils # D-Dimer Sodium Potassium Chloride Carbon Dioxide BUN Creatinine Glucose POC Glucose 179 H 267 H 352 H Hemoglobin A1c Calcium Ferritin Lactate Dehydrogenase C-Reactive Protein NT-Pro-B Natriuret Pep Total Protein Albumin Urine Creatinine Urine Total Protein Coronavirus (PCR) 03/20/20 03/20/20 03/20/20 04:29 07:48 11:16 RBC Hgb Hct RDW Lymph % (Auto) Lymph # (Auto) Seg Neutrophils % Seg Neutrophils # D-Dimer Sodium 136 L Potassium Chloride Carbon Dioxide 15 L BUN 107 H Creatinine 3.5 H Glucose 206 H POC Glucose 125 H 144 H Hemoglobin A1c Calcium 8.3 L Ferritin Lactate Dehydrogenase C-Reactive Protein NT-Pro-B Natriuret Pep Total Protein Albumin Urine Creatinine Urine Total Protein Coronavirus (PCR) 03/20/20 03/20/20 03/21/20 17:25 21:00 04:17 RBC Hgb Hct RDW Lymph % (Auto) Lymph # (Auto) Seg Neutrophils % Seg Neutrophils # D-Dimer Sodium 136 L Potassium Chloride Carbon Dioxide 18 L BUN 111 H Creatinine 3.5 H Glucose POC Glucose 157 H 163 H Hemoglobin A1c Calcium 8.3 L Ferritin Lactate Dehydrogenase C-Reactive Protein NT-Pro-B Natriuret Pep Total Protein Albumin Urine Creatinine Urine Total Protein Coronavirus (PCR) 03/21/20 03/21/20 09:34 12:43 RBC Hgb Hct RDW Lymph % (Auto) Lymph # (Auto) Seg Neutrophils % Seg Neutrophils # D-Dimer Sodium Potassium Chloride Carbon Dioxide BUN Creatinine Glucose POC Glucose 219 H 209 H Hemoglobin A1c Calcium Ferritin Lactate Dehydrogenase C-Reactive Protein NT-Pro-B Natriuret Pep Total Protein Albumin Urine Creatinine Urine Total Protein Coronavirus (PCR)
--- NOTE | 2020-03-21 17:52 | Progress Note ---
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 s/p gentle iv fluid but now d/aron We consulted nephrology for further evaluation and treatment. Recheck CBC BMP in the morning. -- Acute respiratory failure with hypoxia Due to COVID-19 pneumonia DuoNeb by nebulizer every 4 hours as needed. completed Decadron 6 mg IV daily for 10 days. Reconsult pulmonary as well as infectious disease for evaluation and treatment. We follow the inflammatory markers. As needed IV Lasix to prevent pulmonary edema --Diabetes mellitus type 2 Follow blood glucose with QACHS with SSI Consistent carb diet, added long-acting insulin -- COVID-19 virus infection s/p 10 days dexamethasone, patient is not a candidate for remdesivir due to declining renal function DuoNeb by nebulizer every 4 hours as needed. Reconsulted pulmonary as well as infectious disease for evaluation and treatment. We follow the inflammatory markers. --Morbid obesity, risks for poor outcome with COVID-19 Weight reduction diet and exercise when patient clinically more stable as outpatient --DVT prophylaxis, Heparin 5000 units subcu every 8 hours Daily course: 03/14: Covid test is positive, started on dexamethasone. Will DC empiric antibiotics as procalcitonin level is normal. Follow ID recommendation, follow inflammatory markers. Patient is not a candidate for remdesivir due to declining renal function. Follow nephrology recommendation, monitor BMP 03/15; blood glucose greater than 400 today, started on long-acting and premeal insulin along with sliding scale. patient WAS ON 40L [place] THIS AM, now on 12 L high flow O2 today, will follow pulmonary recommendation. Continue Decadron, follow inflammatory markers, follow BMP, check A1c 03/16: Patient today on 8L O2, cont to follow inflammatory markers. Continue Decadron, minimize iv fluid trnsfusion. follow bmp. 03/17; patient is on 12 L of oxygen, ID is following the patient. Continue with Decadron. Nephrology is following. 03/18; patient is on 13 L of oxygen, ID and nephrology is following the patient. Patient is on Decadron, not a candidate for remdesivir because of her kidney fun ction. Creatinine is trending down slightly. 03/19; patient is on 14 L of oxygen. ID, pulmonary and nephrology consult appreciated. Pulmonary recommends evaluation for LTAC because patient has prolo nged weaning of high flow oxygen. 03/20: patient on 12L O2 today, cont wean off O2 03/21: patient remain on 10L O2. completed dexamethasone. wean off O2 as tolerated Subjective Date of service: 03/21/20 Interval history: Patient seen and examined. Medical records and medication list reviewed. No acute event overnight noted by the RN. Patient currently on 10 L nasal cannula Patient is tolerating diet. Discussed plan of care at bedside with patient with a mobile tonio box truck driver. Objective - Exam Narrative Exam: Limited physical exam due to COVID-19 pandemic to minimize transmission of the disease. Vital reviewed and stable. GENERAL: well-developed morbidly obese elderly female on bed appeared to be in mild discomfort. HEENT: Normocephalic. Atraumatic. NECK: Supple. CHEST/LUNGS: breathing slightly labored HEART/CARDIOVASCULAR: Heart rate stable on telemetry ABDOMEN: Obese SKIN: There is no rash NEURO: No focal motor deficit. Follows command. MUSCULOSKELETAL: No joint effusion EXTRIMITY: No swelling, no cyanosis or clubbing. PSYCH: Cooperative. - Constitutional Vitals: Vital Signs - 12hr 03/21/20 03/21/20 03/21/20 07:47 07:58 09:40 Pulse Rate Blood Pressure O2 Sat by Pulse 91 91 91 Oximetry 03/21/20 03/21/20 09:55 16:34 Pulse Rate 66 Blood Pressure 150/80 O2 Sat by Pulse 96 Oximetry - Labs CBC & Chem 7: 03/14/20 05:40 03/24/20 04:23 Labs: Abnormal lab results 03/20/20 03/21/20 03/21/20 Range/Units 21:00 04:17 09:34 Sodium 136 L (137-145) mmol/L Carbon Dioxide 18 L (22-30) mmol/L BUN 111 H (7-17) mg/dL Creatinine 3.5 H (0.6-1.2) mg/dL POC Glucose 163 H 219 H (70-105) mg/dL Calcium 8.3 L (8.4-10.2) mg/dL 03/21/20 03/21/20 Range/Units 12:43 15:56 Sodium (137-145) mmol/L Carbon Dioxide (22-30) mmol/L BUN (7-17) mg/dL Creatinine (0.6-1.2) mg/dL POC Glucose 209 H 210 H (70-105) mg/dL Calcium (8.4-10.2) mg/dL HEART Score - HEART Score Troponin: Troponin T 0.013 ng/mL (0.00-0.029) 03/14/20 02:52
[2020-03-21 22:14] LABS: Albumin 2.7 g/dL (3.8-4.8); Gamma Globulin 0.9 g/dL (0.8-1.7)
[2020-03-22] MEDS: HEPARIN 5,000 UNIT/1 ML VIAL SUB-Q SCH ×3 (05:25→21:32)
[2020-03-22 05:56] LABS: Calcium 7.6 mg/dL (8.4-10.2)
[2020-03-22] MEDS: INSULIN REGULAR, HUMAN 100 UNIT/ML 3ML VIAL SUB-Q SCH ×8 (08:00→21:43)
[2020-03-22] MEDS: SUCRALFATE 1 GM TAB PO SCH ×4 (08:06→21:31)
[2020-03-22] MEDS: PANTOPRAZOLE 40 MG TAB PO SCH (08:06)
[2020-03-22] MEDS: SODIUM BICARBONATE 650 MG TAB PO SCH (08:06)
--- NOTE | 2020-03-22 09:32 | Progress Note ---
Assessment and Plan 75 y/o female with acute respiratory failure secondary to COVID 19 pneumonia 03/22/20: Encouraged IMS to reach out to CM to check with LTACH option. Continue to try to wean for sats >88%. Please ask renal if high dose lasix is an option to help with volume removal to see if this will improve oxygenation. Prognosis remains guarded. 03/21/20: Continue to wean for sats >88%. Proning if able. LTACH is still an option. 03/20/20: Continue to wean For sats >88%. Prone as tolerated if possible. Still would consider LTACH evaluation. 03/19/20: no new recs for today. Still would consider at least a trial of high dose lasix to see if that will help with oxygen requirement. Ask CM this week about LTACH given prolonged weaning. 03/18/20: Wean FiO2 as tolerated. Will ask renal about the possiblity of HIGH dose lasix at least once to see if it will help with volume removal. Antibodies not assessed. Need to check with CM about LTACH availability and qualifications. 03/17/20: Will ask RT to be more aggressive about weaning back down today. Still would check for antibodies to see if patient would qualify for plasma ther apy. No additional IVF's unless absolutely necessary. Prognosis remains guarded. Continue steroids. May need to consider LTACH if weaning becomes more difficult and prolonged. 03/16/20: Continue to wean FiO2 for sats >88%. Still would consider checking antibodies to see if reactive and if patient would qualify for plasma therapy. 03/15/20: No new recs from today, please see below. 1. Wean FiO2 for sats >88% 2. Prone as tolerated during the day and sleep prone at night if possible 3. Assess antibody status to see if patient would benefit from convalescent plasma 4. Agree with steroids for 10 days total 5. Patient does have chronic renal disease, but if possible would not give IVF. Need to keep these patients as dry as possible. Await renal follow up and recs 6. No aerosol therapy Guarded prognosis Subjective Date of service: 03/22/20 Interval history: Overnight was actually weaned down to 5 liters. Not sure if she was proning or not. Found with a sat of [address] back up to 15, but now down to 10 again with sats in the high 90's. Objective Vital Signs - 12hr 03/21/20 03/22/20 03/22/20 22:36 01:30 05:05 Temperature 98.0 F 97.8 F Pulse Rate 64 58 L Respiratory 20 20 Rate Blood Pressure 147/54 159/57 O2 Sat by Pulse 94 78 L 93 Oximetry 03/22/20 07:48 Temperature Pulse Rate Respiratory Rate Blood Pressure O2 Sat by Pulse 98 Oximetry CBC and BMP: 03/14/20 05:40 03/22/20 04:14 ABG, PT/INR, D-dimer: PT/INR, D-dimer PT 13.6 Sec. (12.2-14.9) 03/14/20 02:52 INR 1.05 (0.87-1.13) 03/14/20 02:52 D-Dimer 845.52 ng/mlDDU (0-234) H 03/14/20 02:52 Abnormal lab findings: Abnormal Labs 03/14/20 03/14/20 03/14/20 02:52 02:52 02:52 RBC 3.40 L Hgb 9.4 L Hct 28.8 L RDW 15.6 H Lymph % (Auto) 6.2 L Lymph # (Auto) 0.6 L Seg Neutrophils % 87.6 H Seg Neutrophils # 8.2 H D-Dimer 845.52 H Sodium 131 L Potassium Chloride Carbon Dioxide 17 L BUN 44 H Creatinine 2.9 H Glucose 276 H POC Glucose Hemoglobin A1c Calcium 7.8 L Ferritin Lactate Dehydrogenase C-Reactive Protein NT-Pro-B Natriuret Pep Serum Total Protein Total Protein 5.5 L Albumin 2.8 L Pcpdf-2-Cmkjmmulj Txuwc-5-Ouokypazf PEP Interpretation Urine Creatinine Urine Total Protein Coronavirus (PCR) 03/14/20 03/14/20 03/14/20 02:52 02:52 05:40 RBC 3.57 L Hgb 9.9 L Hct RDW 15.9 H Lymph % (Auto) 4.5 L Lymph # (Auto) 0.5 L Seg Neutrophils % 91.9 H Seg Neutrophils # 9.2 H D-Dimer Sodium Potassium Chloride Carbon Dioxide BUN Creatinine Glucose POC Glucose Hemoglobin A1c Calcium Ferritin 273.0 H Lactate Dehydrogenase 413 H C-Reactive Protein 10.30 H NT-Pro-B Natriuret Pep 05275 H Serum Total Protein Total Protein Albumin Kjedw-8-Yamdjncce Qbjlh-9-Oqqzgznmj PEP Interpretation Urine Creatinine Urine Total Protein Coronavirus (PCR) 03/14/20 03/14/20 03/14/20 05:40 Unknown Unknown RBC Hgb Hct RDW Lymph % (Auto) Lymph # (Auto) Seg Neutrophils % Seg Neutrophils # D-Dimer Sodium Potassium Chloride Carbon Dioxide BUN Creatinine Glucose POC Glucose Hemoglobin A1c Calcium Ferritin Lactate Dehydrogenase C-Reactive Protein 11.90 H NT-Pro-B Natriuret Pep Serum Total Protein Total Protein Albumin Xsfvm-8-Kacslqpbj Mfwvo-9-Hoeswpltx PEP Interpretation Urine Creatinine 89.5 H Urine Total Protein 826 H Coronavirus (PCR) Positive A 03/15/20 03/15/20 03/15/20 05:39 12:07 14:31 RBC Hgb Hct RDW Lymph % (Auto) Lymph # (Auto) Seg Neutrophils % Seg Neutrophils # D-Dimer Sodium 134 L Potassium Chloride Carbon Dioxide 15 L BUN 64 H Creatinine 3.5 H Glucose 532 H* POC Glucose 504 H Hemoglobin A1c 8.0 H Calcium Ferritin Lactate Dehydrogenase C-Reactive Protein NT-Pro-B Natriuret Pep Serum Total Protein Total Protein Albumin Lpwcw-7-Ddhtlloxc Suhbs-2-Cgnxhjudv PEP Interpretation Urine Creatinine Urine Total Protein Coronavirus (PCR) 03/15/20 03/15/20 03/16/20 15:25 21:15 04:15 RBC Hgb Hct RDW Lymph % (Auto) Lymph # (Auto) Seg Neutrophils % Seg Neutrophils # D-Dimer Sodium Potassium 5.2 H Chloride 108.5 H Carbon Dioxide 15 L BUN 75 H Creatinine 3.6 H Glucose 305 H POC Glucose 528 H 438 H Hemoglobin A1c Calcium 8.2 L Ferritin Lactate Dehydrogenase C-Reactive Protein NT-Pro-B Natriuret Pep Serum Total Protein Total Protein Albumin Jntsi-4-Dicwosnod Dbcps-7-Qylacxbkj PEP Interpretation Urine Creatinine Urine Total Protein Coronavirus (PCR) 03/16/20 03/16/20 03/16/20 08:05 11:29 17:25 RBC Hgb Hct RDW Lymph % (Auto) Lymph # (Auto) Seg Neutrophils % Seg Neutrophils # D-Dimer Sodium Potassium Chloride Carbon Dioxide BUN Creatinine Glucose POC Glucose 262 H 255 H 268 H Hemoglobin A1c Calcium Ferritin Lactate Dehydrogenase C-Reactive Protein NT-Pro-B Natriuret Pep Serum Total Protein Total Protein Albumin Fhfdf-2-Zlhfvhpti Yykbj-4-Selxcbafa PEP Interpretation Urine Creatinine Urine Total Protein Coronavirus (PCR) 03/16/20 03/17/20 03/17/20 23:01 04:32 04:32 RBC Hgb Hct RDW Lymph % (Auto) Lymph # (Auto) Seg Neutrophils % Seg Neutrophils # D-Dimer Sodium Potassium Chloride Carbon Dioxide 20 L BUN 79 H Creatinine 3.5 H Glucose 121 H POC Glucose 195 H Hemoglobin A1c Calcium Ferritin Lactate Dehydrogenase C-Reactive Protein NT-Pro-B Natriuret Pep Serum Total Protein 6.0 L Total Protein Albumin 2.7 L Jjirr-4-Wnyfwemwe 0.6 H [place]-7-Cmwtoksdb 1.1 H PEP Interpretation see below H Urine Creatinine Urine Total Protein Coronavirus (PCR) 03/17/20 03/17/20 03/17/20 07:44 12:33 16:12 RBC Hgb Hct RDW Lymph % (Auto) Lymph # (Auto) Seg Neutrophils % Seg Neutrophils # D-Dimer Sodium Potassium Chloride Carbon Dioxide BUN Creatinine Glucose POC Glucose 129 H 258 H 213 H Hemoglobin A1c Calcium Ferritin Lactate Dehydrogenase C-Reactive Protein NT-Pro-B Natriuret Pep Serum Total Protein Total Protein Albumin Qwbmy-1-Egzvdabwb Qoeoq-7-Fbhqbsfim PEP Interpretation Urine Creatinine Urine Total Protein Coronavirus (PCR) 03/17/20 03/18/20 03/18/20 22:04 04:24 07:56 RBC Hgb Hct RDW Lymph % (Auto) Lymph # (Auto) Seg Neutrophils % Seg Neutrophils # D-Dimer Sodium Potassium Chloride Carbon Dioxide 20 L BUN 91 H Creatinine 3.4 H Glucose 150 H POC Glucose 218 H 118 H Hemoglobin A1c Calcium Ferritin Lactate Dehydrogenase C-Reactive Protein NT-Pro-B Natriuret Pep Serum Total Protein Total Protein Albumin Gsqqs-4-Dejyvgmyl Feead-5-Zmhtzxtyh PEP Interpretation Urine Creatinine Urine Total Protein Coronavirus (PCR) 03/18/20 03/18/20 03/18/20 12:09 16:51 21:59 RBC Hgb Hct RDW Lymph % (Auto) Lymph # (Auto) Seg Neutrophils % Seg Neutrophils # D-Dimer Sodium Potassium Chloride Carbon Dioxide BUN Creatinine Glucose POC Glucose 254 H 240 H 269 H Hemoglobin A1c Calcium Ferritin Lactate Dehydrogenase C-Reactive Protein NT-Pro-B Natriuret Pep Serum Total Protein Total Protein Albumin Qibtt-5-Zrkrnddmy Nmjhy-6-Asybmxhsr PEP Interpretation Urine Creatinine Urine Total Protein Coronavirus (PCR) 03/19/20 03/19/20 03/19/20 04:34 11:45 16:32 RBC Hgb Hct RDW Lymph % (Auto) Lymph # (Auto) Seg Neutrophils % Seg Neutrophils # D-Dimer Sodium Potassium Chloride Carbon Dioxide 20 L BUN 94 H Creatinine 3.4 H Glucose 132 H POC Glucose 179 H 267 H Hemoglobin A1c Calcium Ferritin Lactate Dehydrogenase C-Reactive Protein NT-Pro-B Natriuret Pep Serum Total Protein Total Protein Albumin Cvhjk-7-Dvawrbpan Bpreh-8-Oqdujikmz PEP Interpretation Urine Creatinine Urine Total Protein Coronavirus (PCR) 03/19/20 03/20/20 03/20/20 21:44 04:29 07:48 RBC Hgb Hct RDW Lymph % (Auto) Lymph # (Auto) Seg Neutrophils % Seg Neutrophils # D-Dimer Sodium 136 L Potassium Chloride Carbon Dioxide 15 L BUN 107 H Creatinine 3.5 H Glucose 206 H POC Glucose 352 H 125 H Hemoglobin A1c Calcium 8.3 L Ferritin Lactate Dehydrogenase C-Reactive Protein NT-Pro-B Natriuret Pep Serum Total Protein Total Protein Albumin Hddbh-1-Ygjlkoxbh Okrwj-1-Gdzyoaxbx PEP Interpretation Urine Creatinine Urine Total Protein Coronavirus (PCR) 03/20/20 03/20/20 03/20/20 11:16 17:25 21:00 RBC Hgb Hct RDW Lymph % (Auto) Lymph # (Auto) Seg Neutrophils % Seg Neutrophils # D-Dimer Sodium Potassium Chloride Carbon Dioxide BUN Creatinine Glucose POC Glucose 144 H 157 H 163 H Hemoglobin A1c Calcium Ferritin Lactate Dehydrogenase C-Reactive Protein NT-Pro-B Natriuret Pep Serum Total Protein Total Protein Albumin Vpvpf-4-Yrkwfdbdc Tjsea-6-Rygkedpqe PEP Interpretation Urine Creatinine Urine Total Protein Coronavirus (PCR) 03/21/20 03/21/20 03/21/20 04:17 09:34 12:43 RBC Hgb Hct RDW Lymph % (Auto) Lymph # (Auto) Seg Neutrophils % Seg Neutrophils # D-Dimer Sodium 136 L Potassium Chloride Carbon Dioxide 18 L BUN 111 H Creatinine 3.5 H Glucose POC Glucose 219 H 209 H Hemoglobin A1c Calcium 8.3 L Ferritin Lactate Dehydrogenase C-Reactive Protein NT-Pro-B Natriuret Pep Serum Total Protein Total Protein Albumin Jvmrs-4-Husfupsse Rztoq-8-Akuyjiuyu PEP Interpretation Urine Creatinine Urine Total Protein Coronavirus (PCR) 03/21/20 03/21/20 03/22/20 15:56 22:34 04:14 RBC Hgb Hct RDW Lymph % (Auto) Lymph # (Auto) Seg Neutrophils % Seg Neutrophils # D-Dimer Sodium 135 L Potassium Chloride Carbon Dioxide 21 L BUN 107 H Creatinine 3.6 H Glucose POC Glucose 210 H 198 H Hemoglobin A1c Calcium 7.6 L Ferritin Lactate Dehydrogenase C-Reactive Protein NT-Pro-B Natriuret Pep Serum Total Protein Total Protein Albumin Gxksb-3-Sopfnuned Bggya-8-Iqevvupbu PEP Interpretation Urine Creatinine Urine Total Protein Coronavirus (PCR) 03/22/20 03/22/20 07:28 08:40 RBC Hgb Hct RDW Lymph % (Auto) Lymph # (Auto) Seg Neutrophils % Seg Neutrophils # D-Dimer Sodium Potassium Chloride Carbon Dioxide BUN Creatinine Glucose POC Glucose 58 L 122 H Hemoglobin A1c Calcium Ferritin Lactate Dehydrogenase C-Reactive Protein NT-Pro-B Natriuret Pep Serum Total Protein Total Protein Albumin Fwesj-4-Lcbqdxkpw Nbsce-7-Msnzgehqd PEP Interpretation Urine Creatinine Urine Total Protein Coronavirus (PCR)
--- NOTE | 2020-03-22 09:39 | Progress Note ---
Assessment and Plan 1. 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 Renal US ordered, pending. Nephrotic range proteinuria. COmplements normal. ANGIE, ANCA, GBM Ab and SPEP pending. Monitor renal function. Creatinine leveled off. High BUN - pt is on steroids. Renal prognosis is guarded. Avoid nephrotoxic agents. Meds dosage based on GFR. Monitor for STUNNER ANIMAL needs. 2. FEN: Hyperkalemia, improved. Metabolic acidosis, PO Sodium bicarbonate. Hyponatremia, monitor. Suspected volume overload, IV Lasix ordered. Diuretics as needed. Monitor lytes. 3. Acute respiratory failure with hypoxia: Due to COVID-19 pneumonia. Patient currently on NC O2 (salter). DuoNeb as needed. Followed by Pulmonary. 4. COVID-19 virus infection: On Dexamethasone. Patient is not a candidate for Remdesivir due to low GFR. Followed by ID. Follow the inflammatory markers. 5. Diabetes mellitus type 2: Follow blood glucose with QACHS with SSI. Consistent carb diet. 6. Hypertension: Monitor BP. 7. Anemia, POA: Monitor. Subjective: Patient was seen and examined at the bedside. No acute events reported overnight. Examination: General appearance: well-developed, well-nourished, appears stated age, obese, no distress HEENT: ATNC, ARUNA Neck: supple Respiratory: rales heard Cardiology: regular, S1S2, no murmur Gastrointestinal: normoactive bowel sounds, no tenderness, not distended, obese Integumentary: no rash, warm and dry Neurologic: able to move extremities Ext: no edema Subjective Date of service: 03/22/20 Objective - Vital Signs Vital signs: Vital Signs - 12hr 03/21/20 03/22/20 03/22/20 22:36 01:30 05:05 Temperature 98.0 F 97.8 F Pulse Rate 64 58 L Respiratory 20 20 Rate Blood Pressure 147/54 159/57 O2 Sat by Pulse 94 78 L 93 Oximetry 03/22/20 07:48 Temperature Pulse Rate Respiratory Rate Blood Pressure O2 Sat by Pulse 98 Oximetry - Lab 03/14/20 05:40 03/22/20 04:14 Most recent lab results Calcium 7.6 mg/dL (8.4-10.2) L 03/22/20 04:14 Phosphorus 3.20 mg/dL (2.5-4.5) 03/15/20 05:39 Magnesium 2.00 mg/dL (1.7-2.3) 03/15/20 05:39 Urine Creatinine 89.5 mg/dL (0.1-20.0) H 03/14/20 Unknown Urine Total Protein 826 mg/dL (5-11.8) H 03/14/20 Unknown Medications & Allergies - Medications Allergies/Adverse Reactions: Allergies No Known Allergies Allergy (Verified 07/31/18 07:06) Home Medications: Home Medications Medication Instructions Recorded Confirmed Last Taken Type Albuterol Mdi (or & Nicu Only) 2 puff IH QID PRN #1 inhalation 08/07/18 03/14/20 Unknown Rx [ProAir HFA Inhaler] Sucralfate [Carafate] 1 gm PO ACHS #30 tablet 08/07/18 03/14/20 03/13/20 Rx Insulin Regular, Human [HumuLIN R] 0 unit SQ AC #1 vial 08/11/18 03/14/20 Unknown Rx Labetalol HCl [Labetalol 300mg TAB] 300 mg PO BID #60 tablet 11/11/19 03/14/20 03/14/20 Rx Active Medications: Generic Name Dose Route Start Last Admin Trade Name Freq PRN Reason Stop Dose Admin Albuterol 2 puff 03/14/20 04:19 Albuterol 8.5 Gm Mdi Inhalation IH QID PRN Shortness Of Breath Amlodipine Besylate 10 mg 03/16/20 10:00 03/21/20 10:03 Amlodipine 10 Mg Tab PO 10 mg QDAY TERA Administration Ascorbic Acid 1,000 mg 03/15/20 10:00 03/21/20 23:17 Ascorbic Acid 500 Mg Tab PO 1,000 mg BID TERA Administration Carvedilol 6.25 mg 03/16/20 10:00 03/21/20 23:18 Carvedilol 6.25 Mg Tab PO 6.25 mg BID TERA Administration Cholecalciferol 5,000 unit 03/15/20 10:00 03/21/20 10:04 Cholecalciferol (Vit D3) 5,000 Unit Tab PO 5,000 unit DAILY TERA Administration Dexamethasone 6 mg 03/17/20 10:00 03/21/20 10:01 Dexamethasone 4 Mg Tab PO 03/23/20 12:00 6 mg DAILY TERA Administration Heparin Sodium (Porcine) 5,000 unit 03/14/20 06:00 03/22/20 05:25 Heparin 5,000 Unit/1 Ml Vial SUB-Q 5,000 unit Q8HR TERA Administration Hydralazine HCl 5 mg 03/16/20 09:43 03/17/20 06:09 Hydralazine 20 Mg/1 Ml Inj IV 5 mg Q4HR PRN Administration Hypertension Insulin Glargine 15 units 03/22/20 10:00 Insulin Glargine 100 Units/Ml SUB-Q QAM TERA Insulin Human Regular 0 unit 03/15/20 11:30 03/22/20 08:00 Insulin Regular, Human 100 Unit/Ml 3ml Vial SUB-Q Not Given [facility] Protocol Insulin Human Regular 8 unit 03/21/20 16:30 03/21/20 16:30 Insulin Regular, Human 100 Unit/Ml 3ml Vial SUB-Q 8 unit AC TERA Administration Labetalol HCl 300 mg 03/14/20 10:00 03/21/20 23:17 Labetalol 200 Mg Tab PO 200 mg BID TERA Administration Pantoprazole Sodium 40 mg 03/14/20 07:30 03/22/20 08:06 Pantoprazole 40 Mg Tab PO 40 mg QDAC TERA Administration Sodium Bicarbonate 650 mg 03/15/20 20:00 03/22/20 08:06 Sodium Bicarbonate 650 Mg Tab PO 650 mg TID TERA Administration Sucralfate 1 gm 03/14/20 07:30 03/22/20 08:06 Sucralfate 1 Gm Tab PO 1 gm ACHS TERA Administration Zinc Sulfate 220 mg 03/15/20 10:00 03/21/20 23:17 Zinc Sulfate 220 Mg Cap PO 220 mg BID TERA Administration
--- NOTE | 2020-03-22 09:59 | XRay Report ---
CHEST 1 VIEW 03/22/2020 8:53 AM INDICATION / CLINICAL INFORMATION: SOB. COMPARISON: 03/14/2020 FINDINGS: SUPPORT DEVICES: None. HEART / MEDIASTINUM: Heart is mildly prominent, unchanged LUNGS / PLEURA: Diffuse bilateral pulmonary opacities persist. No pneumothorax. ADDITIONAL FINDINGS: No significant additional findings. IMPRESSION: 1. Diffuse bilateral pulmonary opacities persist which could represent multifocal bilateral pneumonia . No significant change. Signer Name: Maxwell Corrales MD Signed: 03/22/2020 9:55 AM Workstation Name: [id number]
[2020-03-22] MEDS: ASCORBIC ACID 500 MG TAB PO SCH ×2 (10:45→21:31)
[2020-03-22] MEDS: CHOLECALCIFEROL (VIT D3) 5,000 UNIT TAB PO SCH (10:45)
[2020-03-22] MEDS: DEXAMETHASONE 4 MG TAB PO SCH (10:45)
[2020-03-22] MEDS: ZINC SULFATE 220 MG CAP PO SCH ×2 (10:45→21:31)
[2020-03-22] MEDS: carvediloL 6.25 MG TAB PO SCH ×2 (10:46→21:31)
[2020-03-22] MEDS: amLODIPine 10 MG TAB PO SCH (10:46)
[2020-03-22] MEDS ORDERED: FUROSEMIDE 40 MG/4 ML INJ IV NR (11:30)
[2020-03-22 11:56] LABS: Myeloperoxidase Antibody <1.0 AI (<1.0)
[2020-03-22] MEDS: INSULIN GLARGINE 100 UNITS/ML SUB-Q SCH (12:28)
[2020-03-22 13:09] LABS: ANA Screen, IFA Negative (Negative)
--- NOTE | 2020-03-22 14:47 | Progress Note ---
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 s/p gentle iv fluid but now d/aron We consulted nephrology for further evaluation and treatment. Recheck CBC BMP in the morning. -- Acute respiratory failure with hypoxia Due to COVID-19 pneumonia DuoNeb by nebulizer every 4 hours as needed. completed Decadron 6 mg IV daily for 10 days. Reconsult pulmonary as well as infectious disease for evaluation and treatment. We follow the inflammatory markers. As needed IV Lasix to prevent pulmonary edema --Diabetes mellitus type 2 Follow blood glucose with QACHS with SSI Consistent carb diet, added long-acting insulin -- COVID-19 virus infection s/p 10 days dexamethasone, patient is not a candidate for remdesivir due to declining renal function DuoNeb by nebulizer every 4 hours as needed. Reconsulted pulmonary as well as infectious disease for evaluation and treatment. We follow the inflammatory markers. --Morbid obesity, risks for poor outcome with COVID-19 Weight reduction diet and exercise when patient clinically more stable as outpatient --DVT prophylaxis, Heparin 5000 units subcu every 8 hours Daily course: 03/14: Covid test is positive, started on dexamethasone. Will DC empiric antibiotics as procalcitonin level is normal. Follow ID recommendation, follow inflammatory markers. Patient is not a candidate for remdesivir due to declining renal function. Follow nephrology recommendation, monitor BMP 03/15; blood glucose greater than 400 today, started on long-acting and premeal insulin along with sliding scale. patient WAS ON 40L [place] THIS AM, now on 12 L high flow O2 today, will follow pulmonary recommendation. Continue Decadron, follow inflammatory markers, follow BMP, check A1c 03/16: Patient today on 8L O2, cont to follow inflammatory markers. Continue Decadron, minimize iv fluid trnsfusion. follow bmp. 03/17; patient is on 12 L of oxygen, ID is following the patient. Continue with Decadron. Nephrology is following. 03/18; patient is on 13 L of oxygen, ID and nephrology is following the patient. Patient is on Decadron, not a candidate for remdesivir because of her kidney fun ction. Creatinine is trending down slightly. 03/19; patient is on 14 L of oxygen. ID, pulmonary and nephrology consult appreciated. Pulmonary recommends evaluation for LTAC because patient has prolo nged weaning of high flow oxygen. 03/20: patient on 12L O2 today, cont wean off O2 03/21: patient remain on 10L O2. completed dexamethasone. wean off O2 as tolerated 03/22: cont to wean off O2, remains on high flow, sent referral for LTAC - pending Subjective Date of service: 03/22/20 Interval history: Patient seen and examined. Medical records and medication list reviewed. No acute event overnight noted by the RN. Patient currently on 10 L nasal cannula Patient is tolerating diet. Discussed plan of care at bedside with patient with a mobile tonio blueprint reader. Objective - Exam Narrative Exam: Limited physical exam due to COVID-19 pandemic to minimize transmission of the disease. Vital reviewed and stable. GENERAL: well-developed morbidly obese elderly female on bed appeared to be in mild discomfort. HEENT: Normocephalic. Atraumatic. NECK: Supple. CHEST/LUNGS: breathing slightly labored HEART/CARDIOVASCULAR: Heart rate stable on telemetry ABDOMEN: Obese SKIN: There is no rash NEURO: No focal motor deficit. Follows command. MUSCULOSKELETAL: No joint effusion EXTRIMITY: No swelling, no cyanosis or clubbing. PSYCH: Cooperative. - Constitutional Vitals: Vital Signs - 12hr 03/22/20 03/22/20 03/22/20 05:05 07:48 10:46 Temperature 97.8 F Pulse Rate 58 L Respiratory 20 Rate Blood Pressure 159/57 141/69 O2 Sat by Pulse 93 98 Oximetry 03/22/20 11:04 Temperature 97.7 F Pulse Rate 56 L Respiratory 22 Rate Blood Pressure 147/58 O2 Sat by Pulse 93 Oximetry - Labs CBC & Chem 7: 03/14/20 05:40 03/24/20 04:23 Labs: Abnormal lab results 03/17/20 03/21/20 03/21/20 Range/Units 04:32 15:56 22:34 Sodium (137-145) mmol/L Carbon Dioxide (22-30) mmol/L BUN (7-17) mg/dL Creatinine (0.6-1.2) mg/dL POC Glucose 210 H 198 H (70-105) mg/dL Calcium (8.4-10.2) mg/dL Serum Total Protein 6.0 L (6.1-8.1) g/dL Albumin 2.7 L (3.8-4.8) g/dL Egwfc-4-Ymkjvalez 0.6 H (0.2-0.3) g/dL Bnwyr-8-Qwkvtnchq 1.1 H (0.5-0.9) g/dL PEP Interpretation see below H 03/22/20 03/22/20 03/22/20 Range/Units 04:14 07:28 08:40 Sodium 135 L (137-145) mmol/L Carbon Dioxide 21 L (22-30) mmol/L BUN 107 H (7-17) mg/dL Creatinine 3.6 H (0.6-1.2) mg/dL POC Glucose 58 L 122 H (70-105) mg/dL Calcium 7.6 L (8.4-10.2) mg/dL Serum Total Protein (6.1-8.1) g/dL Albumin (3.8-4.8) g/dL Oapoz-2-Oesavogwe (0.2-0.3) g/dL Grqia-3-Vamnxyvri (0.5-0.9) g/dL PEP Interpretation 03/22/20 Range/Units 11:01 Sodium (137-145) mmol/L Carbon Dioxide (22-30) mmol/L BUN (7-17) mg/dL Creatinine (0.6-1.2) mg/dL POC Glucose 160 H (70-105) mg/dL Calcium (8.4-10.2) mg/dL Serum Total Protein (6.1-8.1) g/dL Albumin (3.8-4.8) g/dL Zngmt-8-Araroatow (0.2-0.3) g/dL Xednt-5-Vluetdbym (0.5-0.9) g/dL PEP Interpretation HEART Score - HEART Score Troponin: Troponin T 0.013 ng/mL (0.00-0.029) 03/14/20 02:52
[2020-03-23 06:05] LABS: Calcium 8.1 mg/dL (8.4-10.2)
[2020-03-23] MEDS: HEPARIN 5,000 UNIT/1 ML VIAL SUB-Q SCH ×3 (07:05→22:02)
[2020-03-23] MEDS: INSULIN REGULAR, HUMAN 100 UNIT/ML 3ML VIAL SUB-Q SCH ×7 (08:02→21:56)
[2020-03-23] MEDS: SUCRALFATE 1 GM TAB PO SCH ×4 (08:55→21:52)
[2020-03-23] MEDS: PANTOPRAZOLE 40 MG TAB PO SCH (08:55)
--- NOTE | 2020-03-23 08:56 | Progress Note ---
Assessment and Plan 1. 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 Renal US ordered, pending. Nephrotic range proteinuria. ANGIE, ANCA, Complements normal. SPEP negative for M-spike. GBM Ab pending. Monitor renal function. Creatinine leveled off. High BUN - 2/2 to steroids. Renal prognosis is guarded. Avoid nephrotoxic agents. Meds dosage based on GFR. Monitor for LEGAL PROCESS SPECIALIST needs. 2. FEN: Hyperkalemia, improved. Metabolic acidosis, PO Sodium bicarbonate. Hyponatremia, monitor. Suspected volume overload, IV Lasix. Monitor lytes. 3. Acute respiratory failure with hypoxia: Due to COVID-19 pneumonia. Patient currently on NC O2 (salter). DuoNeb as needed. Followed by Pulmonary. 4. COVID-19 virus infection: S/p Dexamethasone. Patient is not a candidate for Remdesivir due to low GFR. Followed by ID. Follow the inflammatory markers. 5. Diabetes mellitus type 2: Follow blood glucose with QACHS with SSI. Consistent carb diet. 6. Hypertension: Monitor BP. 7. Anemia, POA: Monitor. Subjective: Patient was seen and examined at the bedside. No acute events reported overnight. Examination: General appearance: well-developed, well-nourished, appears stated age, obese, no distress HEENT: ATNC, ARUNA Neck: supple Respiratory: rales heard Cardiology: regular, S1S2, no murmur Gastrointestinal: normoactive bowel sounds, no tenderness, not distended, obese Integumentary: no rash, warm and dry Neurologic: able to move extremities Ext: no edema Subjective Date of service: 03/23/20 Objective - Vital Signs Vital signs: Vital Signs - 12hr 03/22/20 03/22/20 03/22/20 21:05 21:30 21:31 Temperature 97.9 F Pulse Rate 62 78 78 Respiratory 16 Rate Blood Pressure 137/49 137/49 137/49 O2 Sat by Pulse 92 Oximetry 03/23/20 03/23/20 03/23/20 04:00 04:44 08:51 Temperature 98.0 F Pulse Rate 67 Respiratory 20 Rate Blood Pressure 141/60 O2 Sat by Pulse 97 91 92 Oximetry - Lab 03/14/20 05:40 03/23/20 04:26 Most recent lab results Calcium 8.1 mg/dL (8.4-10.2) L 03/23/20 04:26 Phosphorus 3.20 mg/dL (2.5-4.5) 03/15/20 05:39 Magnesium 2.00 mg/dL (1.7-2.3) 03/15/20 05:39 Urine Creatinine 89.5 mg/dL (0.1-20.0) H 03/14/20 Unknown Urine Total Protein 826 mg/dL (5-11.8) H 03/14/20 Unknown Medications & Allergies - Medications Allergies/Adverse Reactions: Allergies No Known Allergies Allergy (Verified 07/31/18 07:06) Home Medications: Home Medications Medication Instructions Recorded Confirmed Last Taken Type Albuterol Mdi (or & Nicu Only) 2 puff IH QID PRN #1 inhalation 08/07/18 03/14/20 Unknown Rx [ProAir HFA Inhaler] Sucralfate [Carafate] 1 gm PO ACHS #30 tablet 08/07/18 03/14/20 03/13/20 Rx Insulin Regular, Human [HumuLIN R] 0 unit SQ AC #1 vial 08/11/18 03/14/20 Unknown Rx Labetalol HCl [Labetalol 300mg TAB] 300 mg PO BID #60 tablet 11/11/19 03/14/20 03/14/20 Rx Active Medications: Generic Name Dose Route Start Last Admin Trade Name Freq PRN Reason Stop Dose Admin Albuterol 2 puff 03/14/20 04:19 Albuterol 8.5 Gm Mdi Inhalation IH QID PRN Shortness Of Breath Amlodipine Besylate 10 mg 03/16/20 10:00 03/22/20 10:46 Amlodipine 10 Mg Tab PO 10 mg QDAY TERA Administration Ascorbic Acid 1,000 mg 03/15/20 10:00 03/22/20 21:31 Ascorbic Acid 500 Mg Tab PO 1,000 mg BID TERA Administration Carvedilol 6.25 mg 03/16/20 10:00 03/22/20 21:31 Carvedilol 6.25 Mg Tab PO 6.25 mg BID TERA Administration Cholecalciferol 5,000 unit 03/15/20 10:00 03/22/20 10:45 Cholecalciferol (Vit D3) 5,000 Unit Tab PO 5,000 unit DAILY TERA Administration Dexamethasone 6 mg 03/17/20 10:00 03/22/20 10:45 Dexamethasone 4 Mg Tab PO 03/23/20 12:00 6 mg DAILY TERA Administration Heparin Sodium (Porcine) 5,000 unit 03/14/20 06:00 03/23/20 07:05 Heparin 5,000 Unit/1 Ml Vial SUB-Q 5,000 unit Q8HR TERA Administration Hydralazine HCl 5 mg 03/16/20 09:43 03/17/20 06:09 Hydralazine 20 Mg/1 Ml Inj IV 5 mg Q4HR PRN Administration Hypertension Insulin Glargine 15 units 03/22/20 10:00 03/22/20 12:28 Insulin Glargine 100 Units/Ml SUB-Q 15 units QAM TERA Administration Insulin Human Regular 0 unit 03/15/20 11:30 03/23/20 08:02 Insulin Regular, Human 100 Unit/Ml 3ml Vial SUB-Q Not Given ACHS [facility] Protocol Insulin Human Regular 8 unit 03/21/20 16:30 03/22/20 17:30 Insulin Regular, Human 100 Unit/Ml 3ml Vial SUB-Q 8 unit AC TERA Administration Labetalol HCl 300 mg 03/14/20 10:00 03/22/20 21:30 Labetalol 200 Mg Tab PO 300 mg BID TERA Administration Pantoprazole Sodium 40 mg 03/14/20 07:30 03/23/20 08:55 Pantoprazole 40 Mg Tab PO 40 mg QDAC TREA Administration Sucralfate 1 gm 03/14/20 07:30 03/23/20 08:55 Sucralfate 1 Gm Tab PO 1 gm ACHS TERA Administration Zinc Sulfate 220 mg 03/15/20 10:00 03/22/20 21:31 Zinc Sulfate 220 Mg Cap PO 220 mg BID TERA Administration
[2020-03-23] MEDS: ZINC SULFATE 220 MG CAP PO SCH ×2 (08:59→22:00)
[2020-03-23] MEDS: carvediloL 6.25 MG TAB PO SCH ×2 (08:59→21:53)
[2020-03-23] MEDS: CHOLECALCIFEROL (VIT D3) 5,000 UNIT TAB PO SCH (09:00)
[2020-03-23] MEDS: amLODIPine 10 MG TAB PO SCH (09:00)
[2020-03-23] MEDS: DEXAMETHASONE 4 MG TAB PO SCH (09:01)
[2020-03-23] MEDS: ASCORBIC ACID 500 MG TAB PO SCH ×2 (09:01→21:58)
[2020-03-23] MEDS: INSULIN GLARGINE 100 UNITS/ML SUB-Q SCH (09:02)
[2020-03-23] MEDS: FUROSEMIDE 40 MG/4 ML INJ IV SCH (12:26)
--- NOTE | 2020-03-23 13:10 | Progress Note ---
Assessment and Plan 75 y/o female with acute respiratory failure secondary to COVID 19 pneumonia 03/23/20: Continue to wean FiO2 as tolerated. Tough to tell with accurate I/O but does appear that lasix may have helped with oxygenation. Guarded prognosis. 03/22/20: Encouraged IMS to reach out to CM to check with LTACH option. Continue to try to wean for sats >88%. Please ask renal if high dose lasix is an option to help with volume removal to see if this will improve oxygenation. Prognosis remains guarded. 03/21/20: Continue to wean for sats >88%. Proning if able. LTACH is still an option. 03/20/20: Continue to wean For sats >88%. Prone as tolerated if possible. Still would consider LTACH evaluation. 03/19/20: no new recs for today. Still would consider at least a trial of high dose lasix to see if that will help with oxygen requirement. Ask CM this week about LTACH given prolonged weaning. 03/18/20: Wean FiO2 as tolerated. Will ask renal about the possiblity of HIGH dose lasix at least once to see if it will help with volume removal. Antibodies not assessed. Need to check with CM about LTACH availability and qualificatio ns. 03/17/20: Will ask RT to be more aggressive about weaning back down today. Still would check for antibodies to see if patient would qualify for plasma therapy. No additional IVF's unless absolutely necessary. Prognosis remains guarded. Continue steroids. May need to consider LTACH if weaning becomes more difficult and prolonged. 03/16/20: Continue to wean FiO2 for sats >88%. Still would consider checking antibodies to see if reactive and if patient would qualify for plasma therapy. 03/15/20: No new recs from today, please see below. 1. Wean FiO2 for sats >88% 2. Prone as tolerated during the day and sleep prone at night if possible 3. Assess antibody status to see if patient would benefit from convalescent plasma 4. Agree with steroids for 10 days total 5. Patient does have chronic renal disease, but if possible would not give IVF. Need to keep these patients as dry as possible. Await renal follow up and recs 6. No aerosol therapy Guarded prognosis Subjective Date of service: 03/23/20 Interval history: Down to 7 liters now on [place]. Good sats. Cr stable but BUN did bump. Got lasix yesterday. No output recorded so not sure how she responded to it. Objective Vital Signs - 12hr 03/23/20 03/23/20 03/23/20 04:00 04:44 08:51 Temperature 98.0 F Pulse Rate 67 Respiratory 20 Rate Blood Pressure 141/60 O2 Sat by Pulse 97 91 92 Oximetry 03/23/20 03/23/20 03/23/20 08:59 09:00 12:00 Temperature 97.9 F Pulse Rate 63 63 58 L Respiratory 18 Rate Blood Pressure 138/60 138/60 151/56 O2 Sat by Pulse 91 Oximetry CBC and BMP: 03/14/20 05:40 03/23/20 04:26 ABG, PT/INR, D-dimer: PT/INR, D-dimer PT 13.6 Sec. (12.2-14.9) 03/14/20 02:52 INR 1.05 (0.87-1.13) 03/14/20 02:52 D-Dimer 845.52 ng/mlDDU (0-234) H 03/14/20 02:52 Abnormal lab findings: Abnormal Labs 03/14/20 03/14/20 03/14/20 02:52 02:52 02:52 RBC 3.40 L Hgb 9.4 L Hct 28.8 L RDW 15.6 H Lymph % (Auto) 6.2 L Lymph # (Auto) 0.6 L Seg Neutrophils % 87.6 H Seg Neutrophils # 8.2 H D-Dimer 845.52 H Sodium 131 L Potassium Chloride Carbon Dioxide 17 L BUN 44 H Creatinine 2.9 H Glucose 276 H POC Glucose Hemoglobin A1c Calcium 7.8 L Ferritin Lactate Dehydrogenase C-Reactive Protein NT-Pro-B Natriuret Pep Serum Total Protein Total Protein 5.5 L Albumin 2.8 L Qxcna-4-Kjaamrhad Okanc-9-Avezgwtky PEP Interpretation Urine Creatinine Urine Total Protein Coronavirus (PCR) 03/14/20 03/14/20 03/14/20 02:52 02:52 05:40 RBC 3.57 L Hgb 9.9 L Hct RDW 15.9 H Lymph % (Auto) 4.5 L Lymph # (Auto) 0.5 L Seg Neutrophils % 91.9 H Seg Neutrophils # 9.2 H D-Dimer Sodium Potassium Chloride Carbon Dioxide BUN Creatinine Glucose POC Glucose Hemoglobin A1c Calcium Ferritin 273.0 H Lactate Dehydrogenase 413 H C-Reactive Protein 10.30 H NT-Pro-B Natriuret Pep 90106 H Serum Total Protein Total Protein Albumin Wppdj-2-Hpynidfrk Dkcqm-5-Dvbbomkmv PEP Interpretation Urine Creatinine Urine Total Protein Coronavirus (PCR) 03/14/20 03/14/20 03/14/20 05:40 Unknown Unknown RBC Hgb Hct RDW Lymph % (Auto) Lymph # (Auto) Seg Neutrophils % Seg Neutrophils # D-Dimer Sodium Potassium Chloride Carbon Dioxide BUN Creatinine Glucose POC Glucose Hemoglobin A1c Calcium Ferritin Lactate Dehydrogenase C-Reactive Protein 11.90 H NT-Pro-B Natriuret Pep Serum Total Protein Total Protein Albumin Slwwl-5-Eovfpeyyg Tgbhj-3-Sttvpqzrb PEP Interpretation Urine Creatinine 89.5 H Urine Total Protein 826 H Coronavirus (PCR) Positive A 03/15/20 03/15/20 03/15/20 05:39 12:07 14:31 RBC Hgb Hct RDW Lymph % (Auto) Lymph # (Auto) Seg Neutrophils % Seg Neutrophils # D-Dimer Sodium 134 L Potassium Chloride Carbon Dioxide 15 L BUN 64 H Creatinine 3.5 H Glucose 532 H* POC Glucose 504 H Hemoglobin A1c 8.0 H Calcium Ferritin Lactate Dehydrogenase C-Reactive Protein NT-Pro-B Natriuret Pep Serum Total Protein Total Protein Albumin Jksby-5-Eumwepubn Ybdjg-2-Huxrltnaq PEP Interpretation Urine Creatinine Urine Total Protein Coronavirus (PCR) 03/15/20 03/15/20 03/16/20 15:25 21:15 04:15 RBC Hgb Hct RDW Lymph % (Auto) Lymph # (Auto) Seg Neutrophils % Seg Neutrophils # D-Dimer Sodium Potassium 5.2 H Chloride 108.5 H Carbon Dioxide 15 L BUN 75 H Creatinine 3.6 H Glucose 305 H POC Glucose 528 H 438 H Hemoglobin A1c Calcium 8.2 L Ferritin Lactate Dehydrogenase C-Reactive Protein NT-Pro-B Natriuret Pep Serum Total Protein Total Protein Albumin Pppzp-2-Xkyfyigjs Hllrt-9-Dtwfdvtut PEP Interpretation Urine Creatinine Urine Total Protein Coronavirus (PCR) 03/16/20 03/16/20 03/16/20 08:05 11:29 17:25 RBC Hgb Hct RDW Lymph % (Auto) Lymph # (Auto) Seg Neutrophils % Seg Neutrophils # D-Dimer Sodium Potassium Chloride Carbon Dioxide BUN Creatinine Glucose POC Glucose 262 H 255 H 268 H Hemoglobin A1c Calcium Ferritin Lactate Dehydrogenase C-Reactive Protein NT-Pro-B Natriuret Pep Serum Total Protein Total Protein Albumin Exuzd-6-Ajqunzowo Drrsr-0-Ujarogmxi PEP Interpretation Urine Creatinine Urine Total Protein Coronavirus (PCR) 03/16/20 03/17/20 03/17/20 23:01 04:32 04:32 RBC Hgb Hct RDW Lymph % (Auto) Lymph # (Auto) Seg Neutrophils % Seg Neutrophils # D-Dimer Sodium Potassium Chloride Carbon Dioxide 20 L BUN 79 H Creatinine 3.5 H Glucose 121 H POC Glucose 195 H Hemoglobin A1c Calcium Ferritin Lactate Dehydrogenase C-Reactive Protein NT-Pro-B Natriuret Pep Serum Total Protein 6.0 L Total Protein Albumin 2.7 L Tmotf-3-Vkxkoefsw 0.6 H Jzmrm-4-Lzbjpxvxz 1.1 H PEP Interpretation see below H Urine Creatinine Urine Total Protein Coronavirus (PCR) 03/17/20 03/17/20 03/17/20 07:44 12:33 16:12 RBC Hgb Hct RDW Lymph % (Auto) Lymph # (Auto) Seg Neutrophils % Seg Neutrophils # D-Dimer Sodium Potassium Chloride Carbon Dioxide BUN Creatinine Glucose POC Glucose 129 H 258 H 213 H Hemoglobin A1c Calcium Ferritin Lactate Dehydrogenase C-Reactive Protein NT-Pro-B Natriuret Pep Serum Total Protein Total Protein Albumin Ukqjf-4-Hsnbumkqt Hlihj-1-Phhpdjhci PEP Interpretation Urine Creatinine Urine Total Protein Coronavirus (PCR) 03/17/20 03/18/20 03/18/20 22:04 04:24 07:56 RBC Hgb Hct RDW Lymph % (Auto) Lymph # (Auto) Seg Neutrophils % Seg Neutrophils # D-Dimer Sodium Potassium Chloride Carbon Dioxide 20 L BUN 91 H Creatinine 3.4 H Glucose 150 H POC Glucose 218 H 118 H Hemoglobin A1c Calcium Ferritin Lactate Dehydrogenase C-Reactive Protein NT-Pro-B Natriuret Pep Serum Total Protein Total Protein Albumin Nkqce-2-Yndkqspvr Bkckk-8-Pqlakbnqa PEP Interpretation Urine Creatinine Urine Total Protein Coronavirus (PCR) 03/18/20 03/18/20 03/18/20 12:09 16:51 21:59 RBC Hgb Hct RDW Lymph % (Auto) Lymph # (Auto) Seg Neutrophils % Seg Neutrophils # D-Dimer Sodium Potassium Chloride Carbon Dioxide BUN Creatinine Glucose POC Glucose 254 H 240 H 269 H Hemoglobin A1c Calcium Ferritin Lactate Dehydrogenase C-Reactive Protein NT-Pro-B Natriuret Pep Serum Total Protein Total Protein Albumin Acvrp-0-Ffimehlik Dluez-9-Hagfkmzsh PEP Interpretation Urine Creatinine Urine Total Protein Coronavirus (PCR) 03/19/20 03/19/20 03/19/20 04:34 11:45 16:32 RBC Hgb Hct RDW Lymph % (Auto) Lymph # (Auto) Seg Neutrophils % Seg Neutrophils # D-Dimer Sodium Potassium Chloride Carbon Dioxide 20 L BUN 94 H Creatinine 3.4 H Glucose 132 H POC Glucose 179 H 267 H Hemoglobin A1c Calcium Ferritin Lactate Dehydrogenase C-Reactive Protein NT-Pro-B Natriuret Pep Serum Total Protein Total Protein Albumin Fvzqm-8-Dnhctzuux Ijehc-8-Selkilclb PEP Interpretation Urine Creatinine Urine Total Protein Coronavirus (PCR) 03/19/20 03/20/20 03/20/20 21:44 04:29 07:48 RBC Hgb Hct RDW Lymph % (Auto) Lymph # (Auto) Seg Neutrophils % Seg Neutrophils # D-Dimer Sodium 136 L Potassium Chloride Carbon Dioxide 15 L BUN 107 H Creatinine 3.5 H Glucose 206 H POC Glucose 352 H 125 H Hemoglobin A1c Calcium 8.3 L Ferritin Lactate Dehydrogenase C-Reactive Protein NT-Pro-B Natriuret Pep Serum Total Protein Total Protein Albumin Sjlyw-5-Nsrhrgvpj Bufiy-8-Dplcnhgmn PEP Interpretation Urine Creatinine Urine Total Protein Coronavirus (PCR) 03/20/20 03/20/20 03/20/20 11:16 17:25 21:00 RBC Hgb Hct RDW Lymph % (Auto) Lymph # (Auto) Seg Neutrophils % Seg Neutrophils # D-Dimer Sodium Potassium Chloride Carbon Dioxide BUN Creatinine Glucose POC Glucose 144 H 157 H 163 H Hemoglobin A1c Calcium Ferritin Lactate Dehydrogenase C-Reactive Protein NT-Pro-B Natriuret Pep Serum Total Protein Total Protein Albumin Eldld-0-Vsslylkeq Ecmek-0-Ovuzfbsyr PEP Interpretation Urine Creatinine Urine Total Protein Coronavirus (PCR) 03/21/20 03/21/20 03/21/20 04:17 09:34 12:43 RBC Hgb Hct RDW Lymph % (Auto) Lymph # (Auto) Seg Neutrophils % Seg Neutrophils # D-Dimer Sodium 136 L Potassium Chloride Carbon Dioxide 18 L BUN 111 H Creatinine 3.5 H Glucose POC Glucose 219 H 209 H Hemoglobin A1c Calcium 8.3 L Ferritin Lactate Dehydrogenase C-Reactive Protein NT-Pro-B Natriuret Pep Serum Total Protein Total Protein Albumin Jrbix-4-Viavcalyg Hypix-0-Roxfnhvtj PEP Interpretation Urine Creatinine Urine Total Protein Coronavirus (PCR) 03/21/20 03/21/20 03/22/20 15:56 22:34 04:14 RBC Hgb Hct RDW Lymph % (Auto) Lymph # (Auto) Seg Neutrophils % Seg Neutrophils # D-Dimer Sodium 135 L Potassium Chloride Carbon Dioxide 21 L BUN 107 H Creatinine 3.6 H Glucose POC Glucose 210 H 198 H Hemoglobin A1c Calcium 7.6 L Ferritin Lactate Dehydrogenase C-Reactive Protein NT-Pro-B Natriuret Pep Serum Total Protein Total Protein Albumin Thndy-7-Hrtwomjmr Goiva-0-Zpiosgxwn PEP Interpretation Urine Creatinine Urine Total Protein Coronavirus (PCR) 03/22/20 03/22/20 03/22/20 07:28 08:40 11:01 RBC Hgb Hct RDW Lymph % (Auto) Lymph # (Auto) Seg Neutrophils % Seg Neutrophils # D-Dimer Sodium Potassium Chloride Carbon Dioxide BUN Creatinine Glucose POC Glucose 58 L 122 H 160 H Hemoglobin A1c Calcium Ferritin Lactate Dehydrogenase C-Reactive Protein NT-Pro-B Natriuret Pep Serum Total Protein Total Protein Albumin Hksxk-7-Bnztfdhlg Tzxnk-4-Xpciljdxo PEP Interpretation Urine Creatinine Urine Total Protein Coronavirus (PCR) 03/22/20 03/22/20 03/23/20 17:10 21:03 04:26 RBC Hgb Hct RDW Lymph % (Auto) Lymph # (Auto) Seg Neutrophils % Seg Neutrophils # D-Dimer Sodium 135 L Potassium Chloride Carbon Dioxide 18 L BUN 121 H Creatinine 3.6 H Glucose 173 H POC Glucose 139 H 166 H Hemoglobin A1c Calcium 8.1 L Ferritin Lactate Dehydrogenase C-Reactive Protein NT-Pro-B Natriuret Pep Serum Total Protein Total Protein Albumin Nyklf-9-Qgpuyxtzo Fvnks-3-Vgmlttnzr PEP Interpretation Urine Creatinine Urine Total Protein Coronavirus (PCR) 03/23/20 03/23/20 07:52 11:58 RBC Hgb Hct RDW Lymph % (Auto) Lymph # (Auto) Seg Neutrophils % Seg Neutrophils # D-Dimer Sodium Potassium Chloride Carbon Dioxide BUN Creatinine Glucose POC Glucose 138 H 252 H Hemoglobin A1c Calcium Ferritin Lactate Dehydrogenase C-Reactive Protein NT-Pro-B Natriuret Pep Serum Total Protein Total Protein Albumin Lolon-8-Jruwbzogd Ctidt-3-Kszdvykno PEP Interpretation Urine Creatinine Urine Total Protein Coronavirus (PCR)
--- NOTE | 2020-03-23 17:00 | Progress Note ---
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 s/p gentle iv fluid but now d/aron We consulted nephrology for further evaluation and treatment. Recheck CBC BMP in the morning. -- Acute respiratory failure with hypoxia Due to COVID-19 pneumonia DuoNeb by nebulizer every 4 hours as needed. completed Decadron 6 mg IV daily for 10 days. Reconsult pulmonary as well as infectious disease for evaluation and treatment. We follow the inflammatory markers. As needed IV Lasix to prevent pulmonary edema --Diabetes mellitus type 2 Follow blood glucose with QACHS with SSI Consistent carb diet, added long-acting insulin -- COVID-19 virus infection s/p 10 days dexamethasone, patient is not a candidate for remdesivir due to declining renal function DuoNeb by nebulizer every 4 hours as needed. Reconsulted pulmonary as well as infectious disease for evaluation and treatment. We follow the inflammatory markers. --Morbid obesity, risks for poor outcome with COVID-19 Weight reduction diet and exercise when patient clinically more stable as outpatient --DVT prophylaxis, Heparin 5000 units subcu every 8 hours Daily course: 03/14: Covid test is positive, started on dexamethasone. Will DC empiric antibiotics as procalcitonin level is normal. Follow ID recommendation, follow inflammatory markers. Patient is not a candidate for remdesivir due to declining renal function. Follow nephrology recommendation, monitor BMP 03/15; blood glucose greater than 400 today, started on long-acting and premeal insulin along with sliding scale. patient WAS ON 40L [place] THIS AM, now on 12 L high flow O2 today, will follow pulmonary recommendation. Continue Decadron, follow inflammatory markers, follow BMP, check A1c 03/16: Patient today on 8L O2, cont to follow inflammatory markers. Continue Decadron, minimize iv fluid trnsfusion. follow bmp. 03/17; patient is on 12 L of oxygen, ID is following the patient. Continue with Decadron. Nephrology is following. 03/18; patient is on 13 L of oxygen, ID and nephrology is following the patient. Patient is on Decadron, not a candidate for remdesivir because of her kidney fun ction. Creatinine is trending down slightly. 03/19; patient is on 14 L of oxygen. ID, pulmonary and nephrology consult appreciated. Pulmonary recommends evaluation for LTAC because patient has prolo nged weaning of high flow oxygen. 03/20: patient on 12L O2 today, cont wean off O2 03/21: patient remain on 10L O2. completed dexamethasone. wean off O2 as tolerated 03/22: cont to wean off O2, remains on high flow, sent referral for LTAC - pending 03/22: remains on 8L O2, pending LTAC, cont supportive care Subjective Date of service: 03/23/20 Interval history: Patient seen and examined. Medical records and medication list reviewed. No acute event overnight noted by the RN. Patient currently on 8 L nasal cannula Patient is tolerating diet. 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 Objective - Exam Narrative Exam: Limited physical exam due to COVID-19 pandemic to minimize transmission of the disease. Vital reviewed and stable. GENERAL: well-developed morbidly obese elderly female on bed appeared to be in mild discomfort. HEENT: Normocephalic. Atraumatic. NECK: Supple. CHEST/LUNGS: breathing slightly labored HEART/CARDIOVASCULAR: Heart rate stable on telemetry ABDOMEN: Obese SKIN: There is no rash NEURO: No focal motor deficit. Follows command. MUSCULOSKELETAL: No joint effusion EXTRIMITY: No swelling, no cyanosis or clubbing. PSYCH: Cooperative. - Constitutional Vitals: Vital Signs - 12hr 03/23/20 03/23/20 03/23/20 08:51 08:59 09:00 Temperature Pulse Rate 63 63 Respiratory Rate Blood Pressure 138/60 138/60 O2 Sat by Pulse 92 Oximetry 03/23/20 03/23/20 11:00 12:00 Temperature 97.9 F Pulse Rate 58 L Respiratory 18 Rate Blood Pressure 151/56 O2 Sat by Pulse 92 91 Oximetry - Labs CBC & Chem 7: 03/14/20 05:40 03/24/20 04:23 Labs: Abnormal lab results 03/22/20 03/22/20 03/23/20 Range/Units 17:10 21:03 04:26 Sodium 135 L (137-145) mmol/L Carbon Dioxide 18 L (22-30) mmol/L BUN 121 H (7-17) mg/dL Creatinine 3.6 H (0.6-1.2) mg/dL Glucose 173 H (65-100) mg/dL POC Glucose 139 H 166 H (70-105) mg/dL Calcium 8.1 L (8.4-10.2) mg/dL 03/23/20 03/23/20 03/23/20 Range/Units 07:52 11:58 16:35 Sodium (137-145) mmol/L Carbon Dioxide (22-30) mmol/L BUN (7-17) mg/dL Creatinine (0.6-1.2) mg/dL Glucose (65-100) mg/dL POC Glucose 138 H 252 H 272 H (70-105) mg/dL Calcium (8.4-10.2) mg/dL HEART Score - HEART Score Troponin: Troponin T 0.013 ng/mL (0.00-0.029) 03/14/20 02:52
[2020-03-24] MEDS: HEPARIN 5,000 UNIT/1 ML VIAL SUB-Q SCH ×3 (05:05→21:49)
[2020-03-24 07:07] LABS: Calcium 8.3 mg/dL (8.4-10.2)
--- NOTE | 2020-03-24 08:11 | Progress Note ---
Assessment and Plan 1. 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 Renal US negative for hydro. Nephrotic range proteinuria. ANGIE, ANCA, Complements normal. SPEP negative for M-spike. GBM Ab pending. Monitor renal function. I/O not reported. Creatinine level trending upwards. High BUN - 2/2 to steroids. Renal prognosis is guarded. Avoid nephrotoxic agents. Meds dosage based on GFR. Monitor for [employer] needs. 2. FEN: Hyperkalemia, improved. Metabolic acidosis, PO Sodium bicarbonate. Hyponatremia, monitor. Suspected volume overload, IV Lasix. Monitor lytes. 3. Acute respiratory failure with hypoxia: Due to COVID-19 pneumonia. Patient currently on NC O2 (salter). DuoNeb as needed. Followed by Pulmonary. 4. COVID-19 virus infection: S/p Dexamethasone. Patient is not a candidate for Remdesivir due to low GFR. Followed by ID. Follow the inflammatory markers. 5. Diabetes mellitus type 2: Follow blood glucose with QACHS with SSI. Consistent carb diet. 6. Hypertension: Monitor BP. 7. Anemia, POA: Monitor. Subjective: Patient was seen and examined at the bedside. No acute events reported overnight. Examination: General appearance: well-developed, well-nourished, appears stated age, obese, no distress HEENT: ATNC, ARUNA Neck: supple Respiratory: rales heard Cardiology: regular, S1S2, no murmur Gastrointestinal: normoactive bowel sounds, no tenderness, not distended, obese Integumentary: no rash, warm and dry Neurologic: able to move extremities Ext: no edema Subjective Date of service: 03/24/20 Objective - Vital Signs Vital signs: Vital Signs - 12hr 03/23/20 03/23/20 03/23/20 21:05 21:17 21:53 Temperature 97.9 F Pulse Rate 65 65 Respiratory 16 Rate Blood Pressure 142/59 142/59 O2 Sat by Pulse 92 91 Oximetry 03/23/20 03/23/20 03/24/20 21:59 23:00 04:56 Temperature 98.0 F Pulse Rate 65 61 Respiratory 16 Rate Blood Pressure 142/59 146/57 O2 Sat by Pulse 96 94 Oximetry - Lab 03/14/20 05:40 03/24/20 04:23 Most recent lab results Calcium 8.3 mg/dL (8.4-10.2) L 03/24/20 04:23 Phosphorus 3.20 mg/dL (2.5-4.5) 03/15/20 05:39 Magnesium 2.00 mg/dL (1.7-2.3) 03/15/20 05:39 Urine Creatinine 89.5 mg/dL (0.1-20.0) H 03/14/20 Unknown Urine Total Protein 826 mg/dL (5-11.8) H 03/14/20 Unknown Medications & Allergies - Medications Allergies/Adverse Reactions: Allergies No Known Allergies Allergy (Verified 07/31/18 07:06) Home Medications: Home Medications Medication Instructions Recorded Confirmed Last Taken Type Albuterol Mdi (or & Nicu Only) 2 puff IH QID PRN #1 inhalation 08/07/18 03/14/20 Unknown Rx [ProAir HFA Inhaler] Sucralfate [Carafate] 1 gm PO ACHS #30 tablet 08/07/18 03/14/20 03/13/20 Rx Insulin Regular, Human [HumuLIN R] 0 unit SQ AC #1 vial 08/11/18 03/14/20 Unknown Rx Labetalol HCl [Labetalol 300mg TAB] 300 mg PO BID #60 tablet 11/11/19 03/14/20 03/14/20 Rx Active Medications: Generic Name Dose Route Start Last Admin Trade Name Freq PRN Reason Stop Dose Admin Albuterol 2 puff 03/14/20 04:19 Albuterol 8.5 Gm Mdi Inhalation IH QID PRN Shortness Of Breath Amlodipine Besylate 10 mg 03/16/20 10:00 03/23/20 09:00 Amlodipine 10 Mg Tab PO 10 mg QDAY TERA Administration Ascorbic Acid 1,000 mg 03/15/20 10:00 03/23/20 21:58 Ascorbic Acid 500 Mg Tab PO 1,000 mg BID TERA Administration Carvedilol 6.25 mg 03/16/20 10:00 03/23/20 21:53 Carvedilol 6.25 Mg Tab PO 6.25 mg BID TERA Administration Cholecalciferol 5,000 unit 03/15/20 10:00 03/23/20 09:00 Cholecalciferol (Vit D3) 5,000 Unit Tab PO 5,000 unit DAILY TERA Administration Furosemide 80 mg 03/23/20 10:00 03/23/20 12:26 Furosemide 40 Mg/4 Ml Inj IV 80 mg QDAY TERA Administration Heparin Sodium (Porcine) 5,000 unit 03/14/20 06:00 03/24/20 05:05 Heparin 5,000 Unit/1 Ml Vial SUB-Q 5,000 unit Q8HR TERA Administration Hydralazine HCl 5 mg 03/16/20 09:43 03/17/20 06:09 Hydralazine 20 Mg/1 Ml Inj IV 5 mg Q4HR PRN Administration Hypertension Insulin Glargine 15 units 03/22/20 10:00 03/23/20 09:02 Insulin Glargine 100 Units/Ml SUB-Q 15 units QAM TERA Administration Insulin Human Regular 0 unit 03/15/20 11:30 03/23/20 21:56 Insulin Regular, Human 100 Unit/Ml 3ml Vial SUB-Q 8 unit ACHS TERA Administration Protocol Insulin Human Regular 8 unit 03/21/20 16:30 03/23/20 18:43 Insulin Regular, Human 100 Unit/Ml 3ml Vial SUB-Q 8 unit AC TERA Administration Labetalol HCl 300 mg 03/14/20 10:00 03/23/20 21:59 Labetalol 200 Mg Tab PO 300 mg BID TERA Administration Pantoprazole Sodium 40 mg 03/14/20 07:30 03/23/20 08:55 Pantoprazole 40 Mg Tab PO 40 mg QDAC TERA Administration Sucralfate 1 gm 03/14/20 07:30 03/23/20 21:52 Sucralfate 1 Gm Tab PO 1 gm ACHS TERA Administration Zinc Sulfate 220 mg 03/15/20 10:00 03/23/20 22:00 Zinc Sulfate 220 Mg Cap PO 220 mg BID TERA Administration
[2020-03-24] MEDS: INSULIN REGULAR, HUMAN 100 UNIT/ML 3ML VIAL SUB-Q SCH ×7 (08:37→22:18)
--- NOTE | 2020-03-24 08:48 | Progress Note ---
Assessment and Plan 75 y/o female with acute respiratory failure secondary to COVID 19 pneumonia 03/24/20: Continue to try to wean as tolerated. 4 maybe her new baseline. Follow up renal recs. Suggest CM work on oxygen for home. 03/23/20: Continue to wean FiO2 as tolerated. Tough to tell with accurate I/O but does appear that lasix may have helped with oxygenation. Guarded prognosis. 03/22/20: Encouraged IMS to reach out to CM to check with LTACH option. Continue to try to wean for sats >88%. Please ask renal if high dose lasix is an option to help with volume removal to see if this will improve oxygenation. Prognosis remains guarded. 03/21/20: Continue to wean for sats >88%. Proning if able. LTACH is still an option. 03/20/20: Continue to wean For sats >88%. Prone as tolerated if possible. Still would consider LTACH evaluation. 03/19/20: no new recs for today. Still would consider at least a trial of high dose lasix to see if that will help with oxygen requirement. Ask CM this week about LTACH given prolonged weaning. 03/18/20: Wean FiO2 as tolerated. Will ask renal about the possiblity of HIGH dose lasix at least once to see if it will help with volume removal. Antibodies not assessed. Need to check with CM about LTACH availability and qualifications. 03/17/20: Will ask RT to be more aggressive about weaning back down today. Still would check for antibodies to see if patient would qualify for plasma therapy. No additional IVF's unless absolutely necessary. Prognosis remains guarded. Continue steroids. May need to consider LTACH if weaning becomes more difficult and prolonged. 03/16/20: Continue to wean FiO2 for sats >88%. Still would consider checking antibodies to see if reactive and if patient would qualify for plasma therapy. 03/15/20: No new recs from today, please see below. 1. Wean FiO2 for sats >88% 2. Prone as tolerated during the day and sleep prone at night if possible 3. Assess antibody status to see if patient would benefit from convalescent plasma 4. Agree with steroids for 10 days total 5. Patient does have chronic renal disease, but if possible would not give IVF. Need to keep these patients as dry as possible. Await renal follow up and recs 6. No aerosol therapy Guarded prognosis Subjective Date of service: 03/24/20 Interval history: Stable on 4 liters. Sats in the low to mid 90's. Steroids finished yesterday. Objective Vital Signs - 12hr 03/23/20 03/23/20 03/23/20 21:05 21:17 21:53 Temperature 97.9 F Pulse Rate 65 65 Respiratory 16 Rate Blood Pressure 142/59 142/59 O2 Sat by Pulse 92 91 Oximetry 03/23/20 03/23/20 03/24/20 21:59 23:00 04:56 Temperature 98.0 F Pulse Rate 65 61 Respiratory 16 Rate Blood Pressure 142/59 146/57 O2 Sat by Pulse 96 94 Oximetry 03/24/20 08:42 Temperature Pulse Rate Respiratory Rate Blood Pressure O2 Sat by Pulse 91 Oximetry CBC and BMP: 03/14/20 05:40 03/24/20 04:23 ABG, PT/INR, D-dimer: PT/INR, D-dimer PT 13.6 Sec. (12.2-14.9) 03/14/20 02:52 INR 1.05 (0.87-1.13) 03/14/20 02:52 D-Dimer 845.52 ng/mlDDU (0-234) H 03/14/20 02:52 Abnormal lab findings: Abnormal Labs 03/14/20 03/14/20 03/14/20 02:52 02:52 02:52 RBC 3.40 L Hgb 9.4 L Hct 28.8 L RDW 15.6 H Lymph % (Auto) 6.2 L Lymph # (Auto) 0.6 L Seg Neutrophils % 87.6 H Seg Neutrophils # 8.2 H D-Dimer 845.52 H Sodium 131 L Potassium Chloride Carbon Dioxide 17 L BUN 44 H Creatinine 2.9 H Glucose 276 H POC Glucose Hemoglobin A1c Calcium 7.8 L Ferritin Lactate Dehydrogenase C-Reactive Protein NT-Pro-B Natriuret Pep Serum Total Protein Total Protein 5.5 L Albumin 2.8 L Yjyrq-3-Pdxwqczrt Qeomd-4-Rldpbgrgo PEP Interpretation Urine Creatinine Urine Total Protein Coronavirus (PCR) 03/14/20 03/14/20 03/14/20 02:52 02:52 05:40 RBC 3.57 L Hgb 9.9 L Hct RDW 15.9 H Lymph % (Auto) 4.5 L Lymph # (Auto) 0.5 L Seg Neutrophils % 91.9 H Seg Neutrophils # 9.2 H D-Dimer Sodium Potassium Chloride Carbon Dioxide BUN Creatinine Glucose POC Glucose Hemoglobin A1c Calcium Ferritin 273.0 H Lactate Dehydrogenase 413 H C-Reactive Protein 10.30 H NT-Pro-B Natriuret Pep 26904 H Serum Total Protein Total Protein Albumin Qyjxu-7-Bqtfdyhfh Irybu-5-Bruoljnsh PEP Interpretation Urine Creatinine Urine Total Protein Coronavirus (PCR) 03/14/20 03/14/20 03/14/20 05:40 Unknown Unknown RBC Hgb Hct RDW Lymph % (Auto) Lymph # (Auto) Seg Neutrophils % Seg Neutrophils # D-Dimer Sodium Potassium Chloride Carbon Dioxide BUN Creatinine Glucose POC Glucose Hemoglobin A1c Calcium Ferritin Lactate Dehydrogenase C-Reactive Protein 11.90 H NT-Pro-B Natriuret Pep Serum Total Protein Total Protein Albumin Pzzzl-1-Lphrpjadx Rajec-9-Ykcmmyhae PEP Interpretation Urine Creatinine 89.5 H Urine Total Protein 826 H Coronavirus (PCR) Positive A 03/15/20 03/15/20 03/15/20 05:39 12:07 14:31 RBC Hgb Hct RDW Lymph % (Auto) Lymph # (Auto) Seg Neutrophils % Seg Neutrophils # D-Dimer Sodium 134 L Potassium Chloride Carbon Dioxide 15 L BUN 64 H Creatinine 3.5 H Glucose 532 H* POC Glucose 504 H Hemoglobin A1c 8.0 H Calcium Ferritin Lactate Dehydrogenase C-Reactive Protein NT-Pro-B Natriuret Pep Serum Total Protein Total Protein Albumin Khjuf-7-Xqodrxhhq Ybazh-7-Mddlmjskw PEP Interpretation Urine Creatinine Urine Total Protein Coronavirus (PCR) 03/15/20 03/15/20 03/16/20 15:25 21:15 04:15 RBC Hgb Hct RDW Lymph % (Auto) Lymph # (Auto) Seg Neutrophils % Seg Neutrophils # D-Dimer Sodium Potassium 5.2 H Chloride 108.5 H Carbon Dioxide 15 L BUN 75 H Creatinine 3.6 H Glucose 305 H POC Glucose 528 H 438 H Hemoglobin A1c Calcium 8.2 L Ferritin Lactate Dehydrogenase C-Reactive Protein NT-Pro-B Natriuret Pep Serum Total Protein Total Protein Albumin Vpvlu-2-Dmckeymeg Nhkqm-7-Xbpngsjdt PEP Interpretation Urine Creatinine Urine Total Protein Coronavirus (PCR) 0103/16/20 03/16/20 08:05 11:29 17:25 RBC Hgb Hct RDW Lymph % (Auto) Lymph # (Auto) Seg Neutrophils % Seg Neutrophils # D-Dimer Sodium Potassium Chloride Carbon Dioxide BUN Creatinine Glucose POC Glucose 262 H 255 H 268 H Hemoglobin A1c Calcium Ferritin Lactate Dehydrogenase C-Reactive Protein NT-Pro-B Natriuret Pep Serum Total Protein Total Protein Albumin Uewgs-6-Yhjdkcqxq Wdpzv-0-Kxjeylajj PEP Interpretation Urine Creatinine Urine Total Protein Coronavirus (PCR) 03/16/20 03/17/20 03/17/20 23:01 04:32 04:32 RBC Hgb Hct RDW Lymph % (Auto) Lymph # (Auto) Seg Neutrophils % Seg Neutrophils # D-Dimer Sodium Potassium Chloride Carbon Dioxide 20 L BUN 79 H Creatinine 3.5 H Glucose 121 H POC Glucose 195 H Hemoglobin A1c Calcium Ferritin Lactate Dehydrogenase C-Reactive Protein NT-Pro-B Natriuret Pep Serum Total Protein 6.0 L Total Protein Albumin 2.7 L Coyiw-5-Hbcivpeei 0.6 H Hshbm-5-Gpevzpuko 1.1 H PEP Interpretation see below H Urine Creatinine Urine Total Protein Coronavirus (PCR) 03/17/20 03/17/20 03/17/20 07:44 12:33 16:12 RBC Hgb Hct RDW Lymph % (Auto) Lymph # (Auto) Seg Neutrophils % Seg Neutrophils # D-Dimer Sodium Potassium Chloride Carbon Dioxide BUN Creatinine Glucose POC Glucose 129 H 258 H 213 H Hemoglobin A1c Calcium Ferritin Lactate Dehydrogenase C-Reactive Protein NT-Pro-B Natriuret Pep Serum Total Protein Total Protein Albumin Mkuap-3-Bwlpcsbzq Wpchn-3-Ubnvvgxqe PEP Interpretation Urine Creatinine Urine Total Protein Coronavirus (PCR) 03/17/20 03/18/20 03/18/20 22:04 04:24 07:56 RBC Hgb Hct RDW Lymph % (Auto) Lymph # (Auto) Seg Neutrophils % Seg Neutrophils # D-Dimer Sodium Potassium Chloride Carbon Dioxide 20 L BUN 91 H Creatinine 3.4 H Glucose 150 H POC Glucose 218 H 118 H Hemoglobin A1c Calcium Ferritin Lactate Dehydrogenase C-Reactive Protein NT-Pro-B Natriuret Pep Serum Total Protein Total Protein Albumin Sahup-8-Pwsmdkoxy Xujhq-1-Iuqbgkxjk PEP Interpretation Urine Creatinine Urine Total Protein Coronavirus (PCR) 03/18/20 03/18/20 03/18/20 12:09 16:51 21:59 RBC Hgb Hct RDW Lymph % (Auto) Lymph # (Auto) Seg Neutrophils % Seg Neutrophils # D-Dimer Sodium Potassium Chloride Carbon Dioxide BUN Creatinine Glucose POC Glucose 254 H 240 H 269 H Hemoglobin A1c Calcium Ferritin Lactate Dehydrogenase C-Reactive Protein NT-Pro-B Natriuret Pep Serum Total Protein Total Protein Albumin Pwqgr-6-Ahtkgbhhx Finow-7-Nejihfrfn PEP Interpretation Urine Creatinine Urine Total Protein Coronavirus (PCR) 03/19/20 03/19/20 03/19/20 04:34 11:45 16:32 RBC Hgb Hct RDW Lymph % (Auto) Lymph # (Auto) Seg Neutrophils % Seg Neutrophils # D-Dimer Sodium Potassium Chloride Carbon Dioxide 20 L BUN 94 H Creatinine 3.4 H Glucose 132 H POC Glucose 179 H 267 H Hemoglobin A1c Calcium Ferritin Lactate Dehydrogenase C-Reactive Protein NT-Pro-B Natriuret Pep Serum Total Protein Total Protein Albumin Gqfqn-1-Fuvymklos Qqqsx-8-Jwrbtyjbe PEP Interpretation Urine Creatinine Urine Total Protein Coronavirus (PCR) 03/19/20 03/20/20 03/20/20 21:44 04:29 07:48 RBC Hgb Hct RDW Lymph % (Auto) Lymph # (Auto) Seg Neutrophils % Seg Neutrophils # D-Dimer Sodium 136 L Potassium Chloride Carbon Dioxide 15 L BUN 107 H Creatinine 3.5 H Glucose 206 H POC Glucose 352 H 125 H Hemoglobin A1c Calcium 8.3 L Ferritin Lactate Dehydrogenase C-Reactive Protein NT-Pro-B Natriuret Pep Serum Total Protein Total Protein Albumin Xvtpm-9-Cfloglykv Meucl-5-Hlysozdgc PEP Interpretation Urine Creatinine Urine Total Protein Coronavirus (PCR) 03/20/20 03/20/20 03/20/20 11:16 17:25 21:00 RBC Hgb Hct RDW Lymph % (Auto) Lymph # (Auto) Seg Neutrophils % Seg Neutrophils # D-Dimer Sodium Potassium Chloride Carbon Dioxide BUN Creatinine Glucose POC Glucose 144 H 157 H 163 H Hemoglobin A1c Calcium Ferritin Lactate Dehydrogenase C-Reactive Protein NT-Pro-B Natriuret Pep Serum Total Protein Total Protein Albumin Lycnc-6-Wyktlitln Entoy-2-Geqknjiti PEP Interpretation Urine Creatinine Urine Total Protein Coronavirus (PCR) 03/21/20 03/21/20 03/21/20 04:17 09:34 12:43 RBC Hgb Hct RDW Lymph % (Auto) Lymph # (Auto) Seg Neutrophils % Seg Neutrophils # D-Dimer Sodium 136 L Potassium Chloride Carbon Dioxide 18 L BUN 111 H Creatinine 3.5 H Glucose POC Glucose 219 H 209 H Hemoglobin A1c Calcium 8.3 L Ferritin Lactate Dehydrogenase C-Reactive Protein NT-Pro-B Natriuret Pep Serum Total Protein Total Protein Albumin Pstxc-5-Sargbouwv Bohqc-9-Cqwgyggam PEP Interpretation Urine Creatinine Urine Total Protein Coronavirus (PCR) 03/21/20 03/21/20 03/22/20 15:56 22:34 04:14 RBC Hgb Hct RDW Lymph % (Auto) Lymph # (Auto) Seg Neutrophils % Seg Neutrophils # D-Dimer Sodium 135 L Potassium Chloride Carbon Dioxide 21 L BUN 107 H Creatinine 3.6 H Glucose POC Glucose 210 H 198 H Hemoglobin A1c Calcium 7.6 L Ferritin Lactate Dehydrogenase C-Reactive Protein NT-Pro-B Natriuret Pep Serum Total Protein Total Protein Albumin Sowtz-3-Ewivzyrnv Hqqtz-9-Kohbrmbcm PEP Interpretation Urine Creatinine Urine Total Protein Coronavirus (PCR) 03/22/20 03/22/20 03/22/20 07:28 08:40 11:01 RBC Hgb Hct RDW Lymph % (Auto) Lymph # (Auto) Seg Neutrophils % Seg Neutrophils # D-Dimer Sodium Potassium Chloride Carbon Dioxide BUN Creatinine Glucose POC Glucose 58 L 122 H 160 H Hemoglobin A1c Calcium Ferritin Lactate Dehydrogenase C-Reactive Protein NT-Pro-B Natriuret Pep Serum Total Protein Total Protein Albumin Wxcdv-1-Wyvusuxjg Plipj-6-Curiwtseq PEP Interpretation Urine Creatinine Urine Total Protein Coronavirus (PCR) 03/22/20 03/22/20 03/23/20 17:10 21:03 04:26 RBC Hgb Hct RDW Lymph % (Auto) Lymph # (Auto) Seg Neutrophils % Seg Neutrophils # D-Dimer Sodium 135 L Potassium Chloride Carbon Dioxide 18 L BUN 121 H Creatinine 3.6 H Glucose 173 H POC Glucose 139 H 166 H Hemoglobin A1c Calcium 8.1 L Ferritin Lactate Dehydrogenase C-Reactive Protein NT-Pro-B Natriuret Pep Serum Total Protein Total Protein Albumin Nsqoo-8-Odupefjsr Kyhat-2-Nlecvxzvm PEP Interpretation Urine Creatinine Urine Total Protein Coronavirus (PCR) 03/23/20 03/23/20 03/23/20 07:52 11:58 16:35 RBC Hgb Hct RDW Lymph % (Auto) Lymph # (Auto) Seg Neutrophils % Seg Neutrophils # D-Dimer Sodium Potassium Chloride Carbon Dioxide BUN Creatinine Glucose POC Glucose 138 H 252 H 272 H Hemoglobin A1c Calcium Ferritin Lactate Dehydrogenase C-Reactive Protein NT-Pro-B Natriuret Pep Serum Total Protein Total Protein Albumin Jbmea-0-Aaxqfaibm Jxhbu-4-Izeboudhy PEP Interpretation Urine Creatinine Urine Total Protein Coronavirus (PCR) 03/23/20 03/24/20 21:16 04:23 RBC Hgb Hct RDW Lymph % (Auto) Lymph # (Auto) Seg Neutrophils % Seg Neutrophils # D-Dimer Sodium 135 L Potassium Chloride Carbon Dioxide 19 L BUN 125 H Creatinine 3.8 H Glucose 166 H POC Glucose 311 H Hemoglobin A1c Calcium 8.3 L Ferritin Lactate Dehydrogenase C-Reactive Protein NT-Pro-B Natriuret Pep Serum Total Protein Total Protein Albumin Aqclm-0-Hlchabscd Mqgod-1-Lwacnhkdh PEP Interpretation Urine Creatinine Urine Total Protein Coronavirus (PCR)
[2020-03-24] MEDS: ZINC SULFATE 220 MG CAP PO SCH ×2 (09:43→21:48)
[2020-03-24] MEDS: ASCORBIC ACID 500 MG TAB PO SCH ×2 (09:43→22:17)
[2020-03-24] MEDS: PANTOPRAZOLE 40 MG TAB PO SCH (09:43)
[2020-03-24] MEDS: SUCRALFATE 1 GM TAB PO SCH ×4 (09:43→21:48)
[2020-03-24] MEDS: FUROSEMIDE 40 MG/4 ML INJ IV SCH (09:45)
[2020-03-24] MEDS: amLODIPine 10 MG TAB PO SCH (09:45)
[2020-03-24] MEDS: carvediloL 6.25 MG TAB PO SCH ×2 (09:46→22:19)
[2020-03-24] MEDS: CHOLECALCIFEROL (VIT D3) 5,000 UNIT TAB PO SCH (09:47)
[2020-03-24] MEDS: INSULIN GLARGINE 100 UNITS/ML SUB-Q SCH (09:47)
--- NOTE | 2020-03-24 13:27 | Progress Note ---
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 s/p gentle iv fluid but now d/aron We consulted nephrology for further evaluation and treatment. Recheck CBC BMP in the morning. -- Acute respiratory failure with hypoxia Due to COVID-19 pneumonia DuoNeb by nebulizer every 4 hours as needed. completed Decadron 6 mg IV daily for 10 days. Reconsult pulmonary as well as infectious disease for evaluation and treatment. We follow the inflammatory markers. As needed IV Lasix to prevent pulmonary edema --Diabetes mellitus type 2 Follow blood glucose with QACHS with SSI Consistent carb diet, added long-acting insulin -- COVID-19 virus infection s/p 10 days dexamethasone, patient is not a candidate for remdesivir due to declining renal function DuoNeb by nebulizer every 4 hours and as needed. Reconsulted pulmonary as well as infectious disease for evaluation and treatment. We will cont to follow the inflammatory markers. --Morbid obesity, risks for poor outcome with COVID-19 Weight reduction diet and exercise when patient clinically more stable as outpatient --DVT prophylaxis, Heparin 5000 units subcu every 8 hours Daily course: 03/14: Covid test is positive, started on dexamethasone. Will DC empiric antibi otics as procalcitonin level is normal. Follow ID recommendation, follow inflammatory markers. Patient is not a candidate for remdesivir due to declining renal function. Follow nephrology recommendation, monitor BMP 03/15; blood glucose greater than 400 today, started on long-acting and premeal insulin along with sliding scale. patient WAS ON 40L VENTIMASK THIS AM, now on 12 L high flow O2 today, will follow pulmonary recommendation. Continue Decadron, follow inflammatory markers, follow BMP, check A1c 03/16: Patient today on 8L O2, cont to follow inflammatory markers. Continue Decadron, minimize iv fluid trnsfusion. follow bmp. 03/17; patient is on 12 L of oxygen, ID is following the patient. Continue with Decadron. Nephrology is following. 03/18; patient is on 13 L of oxygen, ID and nephrology is following the patient. Patient is on Decadron, not a candidate for remdesivir because of her kidney function. Creatinine is trending down slightly. 03/19; patient is on 14 L of oxygen. ID, pulmonary and nephrology consult appreciated. Pulmonary recommends evaluation for LTAC because patient has prolonged weaning of high flow oxygen. 03/20: patient on 12L O2 today, cont wean off O2 03/21: patient remain on 10L O2. completed dexamethasone. wean off O2 as tolerated 03/22: cont to wean off O2, remains on high flow, sent referral for LTAC - pending 03/23: remains on 8L O2, pending LTAC, cont supportive care 03/24: Patient accepted to [facility], waiting on insurance authorization. Re nga on supplemental O2, continue to provide supportive care, monitor BMP daily. Subjective Date of service: 03/24/20 Interval history: Patient seen and examined. Medical records and medication list reviewed. No acute event overnight noted by the RN. Patient currently on 7 L nasal cannula Patient is tolerating diet. Discussed plan of care at bedside with patient with a mobile tonio mobile marketing manager. Objective - Exam Narrative Exam: Limited physical exam due to COVID-19 pandemic to minimize transmission of the disease. Vital reviewed and stable. GENERAL: well-developed morbidly obese elderly female on bed appeared to be in mild discomfort. HEENT: Normocephalic. Atraumatic. NECK: Supple. CHEST/LUNGS: breathing slightly labored HEART/CARDIOVASCULAR: Heart rate stable on telemetry ABDOMEN: Obese SKIN: There is no rash NEURO: No focal motor deficit. Follows command. MUSCULOSKELETAL: No joint effusion EXTRIMITY: No swelling, no cyanosis or clubbing. PSYCH: Cooperative. - Constitutional Vitals: Vital Signs - 12hr 03/24/20 03/24/20 03/24/20 04:56 08:42 09:45 Temperature 98.0 F Pulse Rate 61 57 L Respiratory 16 Rate Blood Pressure 146/57 136/54 Blood Pressure [Left] O2 Sat by Pulse 94 91 Oximetry 03/24/20 03/24/20 09:46 13:08 Temperature 98.2 F Pulse Rate 57 L 89 Respiratory 18 Rate Blood Pressure 136/54 Blood Pressure 138/54 [Left] O2 Sat by Pulse Oximetry - Labs CBC & Chem 7: 03/14/20 05:40 03/25/20 04:16 Labs: Abnormal lab results 03/23/20 03/23/20 03/24/20 Range/Units 16:35 21:16 04:23 Sodium 135 L (137-145) mmol/L Carbon Dioxide 19 L (22-30) mmol/L BUN 125 H (7-17) mg/dL Creatinine 3.8 H (0.6-1.2) mg/dL Glucose 166 H (65-100) mg/dL POC Glucose 272 H 311 H (70-105) mg/dL Calcium 8.3 L (8.4-10.2) mg/dL 03/24/20 Range/Units 11:16 Sodium (137-145) mmol/L Carbon Dioxide (22-30) mmol/L BUN (7-17) mg/dL Creatinine (0.6-1.2) mg/dL Glucose (65-100) mg/dL POC Glucose 168 H (70-105) mg/dL Calcium (8.4-10.2) mg/dL HEART Score - HEART Score Troponin: Troponin T 0.013 ng/mL (0.00-0.029) 03/14/20 02:52
[2020-03-25] MEDS ORDERED: ALBUTEROL 2.5 MG/3 ML NEBU IH PRN (05:40)
[2020-03-25] MEDS: HEPARIN 5,000 UNIT/1 ML VIAL SUB-Q SCH ×3 (06:14→23:39)
[2020-03-25 06:19] LABS: Calcium 8.3 mg/dL (8.4-10.2)
[2020-03-25] MEDS: INSULIN REGULAR, HUMAN 100 UNIT/ML 3ML VIAL SUB-Q SCH ×7 (08:07→22:59)
[2020-03-25] MEDS: PANTOPRAZOLE 40 MG TAB PO SCH (08:12)
[2020-03-25] MEDS: SUCRALFATE 1 GM TAB PO SCH ×4 (08:13→23:39)
[2020-03-25] MEDS: INSULIN GLARGINE 100 UNITS/ML SUB-Q SCH (10:13)
[2020-03-25] MEDS: ASCORBIC ACID 500 MG TAB PO SCH ×2 (10:29→23:38)
[2020-03-25] MEDS: ZINC SULFATE 220 MG CAP PO SCH ×2 (10:31→23:39)
[2020-03-25] MEDS: CHOLECALCIFEROL (VIT D3) 5,000 UNIT TAB PO SCH (10:33)
[2020-03-25] MEDS: carvediloL 6.25 MG TAB PO SCH ×2 (10:45→23:39)
[2020-03-25] MEDS: FUROSEMIDE 40 MG/4 ML INJ IV SCH (10:48)
[2020-03-25] MEDS: amLODIPine 10 MG TAB PO SCH (10:50)
--- NOTE | 2020-03-25 11:02 | Progress Note ---
Assessment and Plan 75-year-old female past medical history hypertension, CKD, diabetes admitted with COVID-19 pneumonia: -- Acute renal failure superimposed on chronic kidney disease Likely due to vasomotor nephropathy and COVID Avoid nephrotoxic drug. s/p gentle iv fluid but now d/aron We consulted nephrology for further evaluation and treatment. Recheck CBC BMP in the morning. -- Acute respiratory failure with hypoxia Due to COVID-19 pneumonia DuoNeb by nebulizer every 4 hours as needed. completed Decadron 6 mg IV daily for 10 days. Not a candidate for remdesivir for CKD Reconsult pulmonary as well as infectious disease for evaluation and treatment. We follow the inflammatory markers. As needed IV Lasix to prevent pulmonary edema --Diabetes mellitus type 2 Follow blood glucose with QACHS with SSI Consistent carb diet, added long-acting insulin -- COVID-19 virus infection s/p 10 days dexamethasone, patient is not a candidate for remdesivir due to declining renal function DuoNeb by nebulizer every 4 hours and as needed. Reconsulted pulmonary as well as infectious disease for evaluation and treatment. We will cont to follow the inflammatory markers. --Morbid obesity, risks for poor outcome with COVID-19 Weight reduction diet and exercise when patient clinically more stable as outpatient --DVT prophylaxis, Heparin 5000 units subcu every 8 hours Daily course: 03/14: Covid test is positive, started on dexamethasone. Will DC empiric antibiotics as procalcitonin level is normal. Follow ID recommendation, follow inflammatory markers. Patient is not a candidate for remdesivir due to decl ining renal function. Follow nephrology recommendation, monitor BMP 03/15; blood glucose greater than 400 today, started on long-acting and premeal insulin along with sliding scale. patient WAS ON 40L VENTIMASK THIS AM, now on 12 L high flow O2 today, will follow pulmonary recommendation. Continue Decadron, follow inflammatory markers, follow BMP, check A1c 03/16: Patient today on 8L O2, cont to follow inflammatory markers. Continue Decadron, minimize iv fluid trnsfusion. follow bmp. 03/17; patient is on 12 L of oxygen, ID is following the patient. Continue with Decadron. Nephrology is following. 03/18; patient is on 13 L of oxygen, ID and nephrology is following the patient. Patient is on Decadron, not a candidate for remdesivir because of her kidney function. Creatinine is trending down slightly. 03/19; patient is on 14 L of oxygen. ID, pulmonary and nephrology consult appreciated. Pulmonary recommends evaluation for LTAC because patient has prolonged weaning of high flow oxygen. 03/20: patient on 12L O2 today, cont wean off O2 03/21: patient remain on 10L O2. completed dexamethasone. wean off O2 as tolerated 03/22: cont to wean off O2, remains on high flow, sent referral for LTAC - pending 03/23: remains on 8L O2, pending LTAC, cont supportive care 03/24: Patient accepted to [facility], waiting on insurance authorization. Remains on supplemental O2, continue to provide supportive care, monitor BMP daily. 03/25: patient on 4L O2 today. need home O2 on discharge, consult CM. assess ambulatory O2 requirement. renal function cont to decline, cont to monitor Subjective Date of service: 03/25/20 Interval history: Patient seen and examined. Medical records and medication list reviewed. No acute event overnight noted by the RN. Patient currently on 4 L nasal cannula Patient is tolerating diet. Discussed plan of care at bedside with patient with a mobile tonio communication engineer. Objective - Exam Narrative Exam: Limited physical exam due to COVID-19 pandemic to minimize transmission of the disease. Vital reviewed and stable. GENERAL: well-developed morbidly obese elderly female on bed appeared to be in mild discomfort. HEENT: Normocephalic. Atraumatic. NECK: Supple. CHEST/LUNGS: breathing slightly labored HEART/CARDIOVASCULAR: Heart rate stable on telemetry ABDOMEN: Obese SKIN: There is no rash NEURO: No focal motor deficit. Follows command. MUSCULOSKELETAL: No joint effusion EXTRIMITY: No swelling, no cyanosis or clubbing. PSYCH: Cooperative. - Constitutional Vitals: Vital Signs - 12hr 03/24/20 03/25/20 03/25/20 23:00 02:43 04:59 Temperature 97.6 F Pulse Rate 78 Respiratory 20 Rate Blood Pressure 129/53 O2 Sat by Pulse 94 96 95 Oximetry - Labs CBC & Chem 7: 03/14/20 05:40 03/26/20 04:57 Labs: Abnormal lab results 03/24/20 03/24/20 03/24/20 Range/Units 11:16 16:22 21:28 Carbon Dioxide (22-30) mmol/L BUN (7-17) mg/dL Creatinine (0.6-1.2) mg/dL POC Glucose 168 H 127 H 196 H (70-105) mg/dL Calcium (8.4-10.2) mg/dL 03/25/20 Range/Units 04:16 Carbon Dioxide 18 L (22-30) mmol/L BUN 128 H (7-17) mg/dL Creatinine 3.9 H (0.6-1.2) mg/dL POC Glucose (70-105) mg/dL Calcium 8.3 L (8.4-10.2) mg/dL HEART Score - HEART Score Troponin: Troponin T 0.013 ng/mL (0.00-0.029) 03/14/20 02:52
--- NOTE | 2020-03-25 14:05 | Progress Note ---
Assessment and Plan 1. 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 Renal US negative for hydro. Nephrotic range proteinuria. ANGIE, ANCA, Complements and GBM Ab negative. SPEP negative for M-spike. Monitor renal function. I/O not reported. BUN and Creatinine level trending upwards. Renal prognosis is guarded. Avoid nephrotoxic agents. Meds dosage based on GFR. Monitor for [employer] needs. 2. FEN: Hyperkalemia, improved. Metabolic acidosis, PO Sodium bicarbonate. Hyponatremia, improving, monitor. Suspected volume overload, IV Lasix. Monitor lytes. 3. Acute respiratory failure with hypoxia: Due to COVID-19 pneumonia. Patient currently on NC O2. DuoNeb as needed. Followed by Pulmonary. 4. COVID-19 virus infection: S/p Dexamethasone. Patient is not a candidate for Remdesivir due to low GFR. Followed by ID. Follow the inflammatory markers. 5. Diabetes mellitus type 2: Follow blood glucose with QACHS with SSI. Consistent carb diet. 6. Hypertension: Monitor BP. 7. Anemia, POA: Monitor. Subjective: Patient was seen and examined at the bedside. No acute events reported overnight. Examination: General appearance: well-developed, well-nourished, appears stated age, obese, no distress HEENT: ATNC, ARUNA Neck: supple Respiratory: rales heard Cardiology: regular, S1S2, no murmur Gastrointestinal: normoactive bowel sounds, no tenderness, not distended, obese Integumentary: no rash, warm and dry Neurologic: able to move extremities Ext: no edema Subjective Date of service: 03/25/20 Objective - Vital Signs Vital signs: Vital Signs - 12hr 03/25/20 03/25/20 03/25/20 02:43 04:59 10:00 Temperature 97.6 F Pulse Rate 78 Respiratory 20 Rate Blood Pressure 129/53 O2 Sat by Pulse 96 95 96 Oximetry 03/25/20 03/25/20 03/25/20 10:43 10:45 10:51 Temperature Pulse Rate 71 72 Respiratory Rate Blood Pressure 143/53 141/53 O2 Sat by Pulse 95 Oximetry 03/25/20 11:16 Temperature 98.0 F Pulse Rate 74 Respiratory 24 Rate Blood Pressure 136/55 O2 Sat by Pulse 94 Oximetry - Lab 03/14/20 05:40 03/25/20 04:16 Most recent lab results Calcium 8.3 mg/dL (8.4-10.2) L 03/25/20 04:16 Phosphorus 3.20 mg/dL (2.5-4.5) 03/15/20 05:39 Magnesium 2.00 mg/dL (1.7-2.3) 03/15/20 05:39 Urine Creatinine 89.5 mg/dL (0.1-20.0) H 03/14/20 Unknown Urine Total Protein 826 mg/dL (5-11.8) H 03/14/20 Unknown Medications & Allergies - Medications Allergies/Adverse Reactions: Allergies No Known Allergies Allergy (Verified 07/31/18 07:06) Home Medications: Home Medications Medication Instructions Recorded Confirmed Last Taken Type Albuterol Mdi (or & Nicu Only) 2 puff IH QID PRN #1 inhalation 08/07/18 03/14/20 Unknown Rx [ProAir HFA Inhaler] Sucralfate [Carafate] 1 gm PO ACHS #30 tablet 08/07/18 03/14/20 03/13/20 Rx Insulin Regular, Human [HumuLIN R] 0 unit SQ AC #1 vial 08/11/18 03/14/20 Unkn own Rx Labetalol HCl [Labetalol 300mg TAB] 300 mg PO BID #60 tablet 11/11/19 03/14/20 03/14/20 Rx Active Medications: Generic Name Dose Route Start Last Admin Trade Name Freq PRN Reason Stop Dose Admin Albuterol 2 puff 03/14/20 04:19 Albuterol 8.5 Gm Mdi Inhalation IH QID PRN Shortness Of Breath Amlodipine Besylate 10 mg 03/16/20 10:00 03/25/20 10:50 Amlodipine 10 Mg Tab PO 10 mg QDAY TERA Administration Ascorbic Acid 1,000 mg 03/15/20 10:00 03/25/20 10:29 Ascorbic Acid 500 Mg Tab PO 1,000 mg BID TERA Administration Carvedilol 6.25 mg 03/16/20 10:00 03/25/20 10:45 Carvedilol 6.25 Mg Tab PO 6.25 mg BID TERA Administration Cholecalciferol 5,000 unit 03/15/20 10:00 03/25/20 10:33 Cholecalciferol (Vit D3) 5,000 Unit Tab PO 5,000 unit DAILY TEAR Administration Furosemide 80 mg 03/23/20 10:00 03/25/20 10:48 Furosemide 40 Mg/4 Ml Inj IV 80 mg QDAY TERA Administration Heparin Sodium (Porcine) 5,000 unit 03/14/20 06:00 03/25/20 06:14 Heparin 5,000 Unit/1 Ml Vial SUB-Q 5,000 unit Q8HR TERA Administration Hydralazine HCl 5 mg 03/16/20 09:43 03/17/20 06:09 Hydralazine 20 Mg/1 Ml Inj IV 5 mg Q4HR PRN Administration Hypertension Insulin Glargine 15 units 03/22/20 10:00 03/25/20 10:13 Insulin Glargine 100 Units/Ml SUB-Q Not Given QAM [facility] Insulin Human Regular 0 unit 03/15/20 11:30 03/25/20 12:31 Insulin Regular, Human 100 Unit/Ml 3ml Vial SUB-Q 3 unit ACHS TERA Administration Protocol Insulin Human Regular 8 unit 03/21/20 16:30 03/25/20 12:33 Insulin Regular, Human 100 Unit/Ml 3ml Vial SUB-Q 8 unit AC TERA Administration Labetalol HCl 300 mg 03/14/20 10:00 03/25/20 10:43 Labetalol 200 Mg Tab PO 300 mg BID TERA Administration Pantoprazole Sodium 40 mg 03/14/20 07:30 03/25/20 08:12 Pantoprazole 40 Mg Tab PO 40 mg QDAC TERA Administration Sucralfate 1 gm 03/14/20 07:30 03/25/20 12:30 Sucralfate 1 Gm Tab PO 1 gm ACHS TERA Administration Zinc Sulfate 220 mg 03/15/20 10:00 03/25/20 10:31 Zinc Sulfate 220 Mg Cap PO 220 mg BID TERA Administration
[2020-03-25] MEDS ORDERED: ACETAMINOPHEN 325 MG TAB PO PRN (15:57)
--- NOTE | 2020-03-25 20:35 | Progress Note ---
Assessment and Plan Imp: 1. Covid-19 2. Viral pneumonia 3. Acute respiratory failure, hypoxia 4. FLORIDALMA 5. Morbid obesity Rec: 1. On 3L NC; cont. current therapy with close monitoring 2. Complex decision-making Plan of care reviewed w/ patient, she understands/agrees Subjective Date of service: 03/25/20 Principal diagnosis: Covid-19 Interval history: No events. Awake, alert. No complaints. Active Medications Acetaminophen (Acetaminophen 325 Mg Tab) 650 mg PO Q4H PRN PRN Reason: Pain, Mild (1-3) Last Admin: 03/25/20 16:14 Dose: 650 mg Documented by: Albuterol (Albuterol 8.5 Gm Mdi Inhalation) 2 puff IH QID PRN PRN Reason: Shortness Of Breath Amlodipine Besylate (Amlodipine 10 Mg Tab) 10 mg PO QDAY [facility] Last Admin: 03/25/20 10:50 Dose: 10 mg Documented by: Ascorbic Acid (Ascorbic Acid 500 Mg Tab) 1,000 mg PO BID [facility] Last Admin: 03/25/20 10:29 Dose: 1,000 mg Documented by: Carvedilol (Carvedilol 6.25 Mg Tab) 6.25 mg PO BID [facility] Last Admin: 03/25/20 10:45 Dose: 6.25 mg Documented by: Cholecalciferol (Cholecalciferol (Vit D3) 5,000 Unit Tab) 5,000 unit PO DAILY [facility] Last Admin: 03/25/20 10:33 Dose: 5,000 unit Documented by: Furosemide (Furosemide 40 Mg/4 Ml Inj) 80 mg IV QDAY [facility] Last Admin: 03/25/20 10:48 Dose: 80 mg Documented by: Heparin Sodium (Porcine) (Heparin 5,000 Unit/1 Ml Vial) 5,000 unit SUB-Q Q8HR [facility] Last Admin: 03/25/20 16:19 Dose: 5,000 unit Documented by: Hydralazine HCl (Hydralazine 20 Mg/1 Ml Inj) 5 mg IV Q4HR PRN PRN Reason: Hypertension Last Admin: 03/17/20 06:09 Dose: 5 mg Documented by: Insulin Glargine (Insulin Glargine 100 Units/Ml) 15 units SUB-Q QAM [facility] Last Admin: 03/25/20 10:13 Dose: Not Given Documented by: Insulin Human Regular (Insulin Regular, Human 100 Unit/Ml 3ml Vial) 0 unit SUB- Q ACHS [facility]; Protocol Last Admin: 03/25/20 17:58 Dose: 3 unit Documented by: Insulin Human Regular (Insulin Regular, Human 100 Unit/Ml 3ml Vial) 8 unit SUB- Q AC [facility] Last Admin: 03/25/20 17:51 Dose: Not Given Documented by: Labetalol HCl (Labetalol 200 Mg Tab) 300 mg PO BID [facility] Last Admin: 03/25/20 10:43 Dose: 300 mg Documented by: Pantoprazole Sodium (Pantoprazole 40 Mg Tab) 40 mg PO QDAC [facility] Last Admin: 03/25/20 08:12 Dose: 40 mg Documented by: Sucralfate (Sucralfate 1 Gm Tab) [address] [facility] Last Admin: 03/25/20 16:19 Dose: 1 gm Documented by: Zinc Sulfate (Zinc Sulfate 220 Mg Cap) 220 mg PO BID [facility] Last Admin: 03/25/20 10:31 Dose: 220 mg Documented by: Objective Vital Signs - 12hr 03/25/20 03/25/20 03/25/20 10:00 10:43 10:45 Temperature Pulse Rate 71 72 Respiratory Rate Blood Pressure 143/53 141/53 O2 Sat by Pulse 96 Oximetry 03/25/20 03/25/20 03/25/20 10:51 11:00 11:16 Temperature 98.0 F Pulse Rate 74 Respiratory 24 Rate Blood Pressure 136/55 O2 Sat by Pulse 95 93 94 Oximetry 03/25/20 03/25/20 16:20 16:43 Temperature 98.3 F Pulse Rate 65 Respiratory 26 H Rate Blood Pressure 116/46 O2 Sat by Pulse 93 95 Oximetry Constitutional: no acute distress, alert Eyes: non-icteric ENT: oropharynx moist Neck: supple Effort: normal (mild tachypnea) Cardiovascular: regular rate and rhythm (no mrg) Gastrointestinal: normoactive bowel sounds, soft, non-tender, non-distended Integumentary: normal Extremities: no cyanosis, no edema, pink and warm Neurologic: normal mental status, non-focal exam, pupils equal and round Psychiatric: mood appropriate, affect normal CBC and BMP: 03/14/20 05:40 03/25/20 04:16 ABG, PT/INR, D-dimer: PT/INR, D-dimer PT 13.6 Sec. (12.2-14.9) 03/14/20 02:52 INR 1.05 (0.87-1.13) 03/14/20 02:52 D-Dimer 845.52 ng/mlDDU (0-234) H 03/14/20 02:52 Abnormal lab findings: Abnormal Labs 03/14/20 03/14/20 03/14/20 02:52 02:52 02:52 RBC 3.40 L Hgb 9.4 L Hct 28.8 L RDW 15.6 H Lymph % (Auto) 6.2 L Lymph # (Auto) 0.6 L Seg Neutrophils % 87.6 H Seg Neutrophils # 8.2 H D-Dimer 845.52 H Sodium 131 L Potassium Chloride Carbon Dioxide 17 L BUN 44 H Creatinine 2.9 H Glucose 276 H POC Glucose Hemoglobin A1c Calcium 7.8 L Ferritin Lactate Dehydrogenase C-Reactive Protein NT-Pro-B Natriuret Pep Serum Total Protein Total Protein 5.5 L Albumin 2.8 L Miluz-6-Vcxokgbtk Hwmuu-8-Gjkjmvkzi PEP Interpretation Urine Creatinine Urine Total Protein Coronavirus (PCR) 03/14/20 03/14/20 03/14/20 02:52 02:52 05:40 RBC 3.57 L Hgb 9.9 L Hct RDW 15.9 H Lymph % (Auto) 4.5 L Lymph # (Auto) 0.5 L Seg Neutrophils % 91.9 H Seg Neutrophils # 9.2 H D-Dimer Sodium Potassium Chloride Carbon Dioxide BUN Creatinine Glucose POC Glucose Hemoglobin A1c Calcium Ferritin 273.0 H Lactate Dehydrogenase 413 H C-Reactive Protein 10.30 H NT-Pro-B Natriuret Pep 90133 H Serum Total Protein Total Protein Albumin Rhjet-0-Cuuqpoqyd Wyjus-9-Imwpedthr PEP Interpretation Urine Creatinine Urine Total Protein Coronavirus (PCR) 03/14/20 03/14/20 03/14/20 05:40 Unknown Unknown RBC Hgb Hct RDW Lymph % (Auto) Lymph # (Auto) Seg Neutrophils % Seg Neutrophils # D-Dimer Sodium Potassium Chloride Carbon Dioxide BUN Creatinine Glucose POC Glucose Hemoglobin A1c Calcium Ferritin Lactate Dehydrogenase C-Reactive Protein 11.90 H NT-Pro-B Natriuret Pep Serum Total Protein Total Protein Albumin Snpvk-8-Sgqgflegh Jtxwq-9-Ksajfledz PEP Interpretation Urine Creatinine 89.5 H Urine Total Protein 826 H Coronavirus (PCR) Positive A 03/15/20 03/15/20 03/15/20 05:39 12:07 14:31 RBC Hgb Hct RDW Lymph % (Auto) Lymph # (Auto) Seg Neutrophils % Seg Neutrophils # D-Dimer Sodium 134 L Potassium Chloride Carbon Dioxide 15 L BUN 64 H Creatinine 3.5 H Glucose 532 H* POC Glucose 504 H Hemoglobin A1c 8.0 H Calcium Ferritin Lactate Dehydrogenase C-Reactive Protein NT-Pro-B Natriuret Pep Serum Total Protein Total Protein Albumin Ichmj-3-Poifhumwn Ieiuq-2-Yzixjfqhb PEP Interpretation Urine Creatinine Urine Total Protein Coronavirus (PCR) 03/15/20 03/15/20 03/16/20 15:25 21:15 04:15 RBC Hgb Hct RDW Lymph % (Auto) Lymph # (Auto) Seg Neutrophils % Seg Neutrophils # D-Dimer Sodium Potassium 5.2 H Chloride 108.5 H Carbon Dioxide 15 L BUN 75 H Creatinine 3.6 H Glucose 305 H POC Glucose 528 H 438 H Hemoglobin A1c Calcium 8.2 L Ferritin Lactate Dehydrogenase C-Reactive Protein NT-Pro-B Natriuret Pep Serum Total Protein Total Protein Albumin Jmtkm-2-Zyzjpggbe Jeyeh-4-Fcknbmfdh PEP Interpretation Urine Creatinine Urine Total Protein Coronavirus (PCR) 03/16/20 03/16/20 03/16/20 08:05 11:29 17:25 RBC Hgb Hct RDW Lymph % (Auto) Lymph # (Auto) Seg Neutrophils % Seg Neutrophils # D-Dimer Sodium Potassium Chloride Carbon Dioxide BUN Creatinine Glucose POC Glucose 262 H 255 H 268 H Hemoglobin A1c Calcium Ferritin Lactate Dehydrogenase C-Reactive Protein NT-Pro-B Natriuret Pep Serum Total Protein Total Protein Albumin Esdbj-0-[place] Fvfjm-5-Smevxszfg PEP Interpretation Urine Creatinine Urine Total Protein Coronavirus (PCR) 03/16/20 03/17/20 03/17/20 23:01 04:32 04:32 RBC Hgb Hct RDW Lymph % (Auto) Lymph # (Auto) Seg Neutrophils % Seg Neutrophils # D-Dimer Sodium Potassium Chloride Carbon Dioxide 20 L BUN 79 H Creatinine 3.5 H Glucose 121 H POC Glucose 195 H Hemoglobin A1c Calcium Ferritin Lactate Dehydrogenase C-Reactive Protein NT-Pro-B Natriuret Pep Serum Total Protein 6.0 L Total Protein Albumin 2.7 L Yduwu-7-Ipzmavhkm 0.6 H Bcgim-0-Zudscyatd 1.1 H PEP Interpretation see below H Urine Creatinine Urine Total Protein Coronavirus (PCR) 03/17/20 03/17/20 03/17/20 07:44 12:33 16:12 RBC Hgb Hct RDW Lymph % (Auto) Lymph # (Auto) Seg Neutrophils % Seg Neutrophils # D-Dimer Sodium Potassium Chloride Carbon Dioxide BUN Creatinine Glucose POC Glucose 129 H 258 H 213 H Hemoglobin A1c Calcium Ferritin Lactate Dehydrogenase C-Reactive Protein NT-Pro-B Natriuret Pep Serum Total Protein Total Protein Albumin Xrfjo-7-Uaxxzcqnj Hyuld-2-Vylhfovhf PEP Interpretation Urine Creatinine Urine Total Protein Coronavirus (PCR) 03/17/20 03/18/20 03/18/20 22:04 04:24 07:56 RBC Hgb Hct RDW Lymph % (Auto) Lymph # (Auto) Seg Neutrophils % Seg Neutrophils # D-Dimer Sodium Potassium Chloride Carbon Dioxide 20 L BUN 91 H Creatinine 3.4 H Glucose 150 H POC Glucose 218 H 118 H Hemoglobin A1c Calcium Ferritin Lactate Dehydrogenase C-Reactive Protein NT-Pro-B Natriuret Pep Serum Total Protein Total Protein Albumin Ardju-3-Qmdnvidsk Ijhzz-8-Vzxoguged PEP Interpretation Urine Creatinine Urine Total Protein Coronavirus (PCR) 03/18/20 03/18/20 03/18/20 12:09 16:51 21:59 RBC Hgb Hct RDW Lymph % (Auto) Lymph # (Auto) Seg Neutrophils % Seg Neutrophils # D-Dimer Sodium Potassium Chloride Carbon Dioxide BUN Creatinine Glucose POC Glucose 254 H 240 H 269 H Hemoglobin A1c Calcium Ferritin Lactate Dehydrogenase C-Reactive Protein NT-Pro-B Natriuret Pep Serum Total Protein Total Protein Albumin Hxylt-0-Ubrpedfuj Ufcnt-6-Riodijsjy PEP Interpretation Urine Creatinine Urine Total Protein Coronavirus (PCR) 03/19/20 03/19/20 03/19/20 04:34 11:45 16:32 RBC Hgb Hct RDW Lymph % (Auto) Lymph # (Auto) Seg Neutrophils % Seg Neutrophils # D-Dimer Sodium Potassium Chloride Carbon Dioxide 20 L BUN 94 H Creatinine 3.4 H Glucose 132 H POC Glucose 179 H 267 H Hemoglobin A1c Calcium Ferritin Lactate Dehydrogenase C-Reactive Protein NT-Pro-B Natriuret Pep Serum Total Protein Total Protein Albumin Ewske-8-Hzqkobmel Ibxia-3-Sdkswnvop PEP Interpretation Urine Creatinine Urine Total Protein Coronavirus (PCR) 03/19/20 03/20/20 03/20/20 21:44 04:29 07:48 RBC Hgb Hct RDW Lymph % (Auto) Lymph # (Auto) Seg Neutrophils % Seg Neutrophils # D-Dimer Sodium 136 L Potassium Chloride Carbon Dioxide 15 L BUN 107 H Creatinine 3.5 H Glucose 206 H POC Glucose 352 H 125 H Hemoglobin A1c Calcium 8.3 L Ferritin Lactate Dehydrogenase C-Reactive Protein NT-Pro-B Natriuret Pep Serum Total Protein Total Protein Albumin Jwscz-9-Iotudgetm Jcced-3-Nnamaljhe PEP Interpretation Urine Creatinine Urine Total Protein Coronavirus (PCR) 03/20/20 03/20/20 03/20/20 11:16 17:25 21:00 RBC Hgb Hct RDW Lymph % (Auto) Lymph # (Auto) Seg Neutrophils % Seg Neutrophils # D-Dimer Sodium Potassium Chloride Carbon Dioxide BUN Creatinine Glucose POC Glucose 144 H 157 H 163 H Hemoglobin A1c Calcium Ferritin Lactate Dehydrogenase C-Reactive Protein NT-Pro-B Natriuret Pep Serum Total Protein Total Protein Albumin Zqbmu-1-Zwszihnba Yxrko-4-Ysnnlzcnv PEP Interpretation Urine Creatinine Urine Total Protein Coronavirus (PCR) 03/21/20 03/21/20 03/21/20 04:17 09:34 12:43 RBC Hgb Hct RDW Lymph % (Auto) Lymph # (Auto) Seg Neutrophils % Seg Neutrophils # D-Dimer Sodium 136 L Potassium Chloride Carbon Dioxide 18 L BUN 111 H Creatinine 3.5 H Glucose POC Glucose 219 H 209 H Hemoglobin A1c Calcium 8.3 L Ferritin Lactate Dehydrogenase C-Reactive Protein NT-Pro-B Natriuret Pep Serum Total Protein Total Protein Albumin Uqwob-4-Lqxldrxoz Mnicw-4-Afqbxvrem PEP Interpretation Urine Creatinine Urine Total Protein Coronavirus (PCR) 03/21/20 03/21/20 03/22/20 15:56 22:34 04:14 RBC Hgb Hct RDW Lymph % (Auto) Lymph # (Auto) Seg Neutrophils % Seg Neutrophils # D-Dimer Sodium 135 L Potassium Chloride Carbon Dioxide 21 L BUN 107 H Creatinine 3.6 H Glucose POC Glucose 210 H 198 H Hemoglobin A1c Calcium 7.6 L Ferritin Lactate Dehydrogenase C-Reactive Protein NT-Pro-B Natriuret Pep Serum Total Protein Total Protein Albumin Gkftq-9-Rimzxlvty Utrqj-3-Vqbayehth PEP Interpretation Urine Creatinine Urine Total Protein Coronavirus (PCR) 0103/22/20 03/22/20 07:28 08:40 11:01 RBC Hgb Hct RDW Lymph % (Auto) Lymph # (Auto) Seg Neutrophils % Seg Neutrophils # D-Dimer Sodium Potassium Chloride Carbon Dioxide BUN Creatinine Glucose POC Glucose 58 L 122 H 160 H Hemoglobin A1c Calcium Ferritin Lactate Dehydrogenase C-Reactive Protein NT-Pro-B Natriuret Pep Serum Total Protein Total Protein Albumin Wpnfy-8-Ideactkxr Axbyh-9-Ncnyfnjnw PEP Interpretation Urine Creatinine Urine Total Protein Coronavirus (PCR) 03/22/20 03/22/20 03/23/20 17:10 21:03 04:26 RBC Hgb Hct RDW Lymph % (Auto) Lymph # (Auto) Seg Neutrophils % Seg Neutrophils # D-Dimer Sodium 135 L Potassium Chloride Carbon Dioxide 18 L BUN 121 H Creatinine 3.6 H Glucose 173 H POC Glucose 139 H 166 H Hemoglobin A1c Calcium 8.1 L Ferritin Lactate Dehydrogenase C-Reactive Protein NT-Pro-B Natriuret Pep Serum Total Protein Total Protein Albumin Vgzio-5-Kracblfkh Grihz-2-Crvpspoeo PEP Interpretation Urine Creatinine Urine Total Protein Coronavirus (PCR) 03/23/20 03/23/20 03/23/20 07:52 11:58 16:35 RBC Hgb Hct RDW Lymph % (Auto) Lymph # (Auto) Seg Neutrophils % Seg Neutrophils # D-Dimer Sodium Potassium Chloride Carbon Dioxide BUN Creatinine Glucose POC Glucose 138 H 252 H 272 H Hemoglobin A1c Calcium Ferritin Lactate Dehydrogenase C-Reactive Protein NT-Pro-B Natriuret Pep Serum Total Protein Total Protein Albumin Nyxpr-7-Fnbebnqfo Mzifn-0-Ztocssaln PEP Interpretation Urine Creatinine Urine Total Protein Coronavirus (PCR) 03/23/20 03/24/20 03/24/20 21:16 04:23 11:16 RBC Hgb Hct RDW Lymph % (Auto) Lymph # (Auto) Seg Neutrophils % Seg Neutrophils # D-Dimer Sodium 135 L Potassium Chloride Carbon Dioxide 19 L BUN 125 H Creatinine 3.8 H Glucose 166 H POC Glucose 311 H 168 H Hemoglobin A1c Calcium 8.3 L Ferritin Lactate Dehydrogenase C-Reactive Protein NT-Pro-B Natriuret Pep Serum Total Protein Total Protein Albumin Clndl-9-Fzepgvotg Pyjzu-3-Lyfkcmxph PEP Interpretation Urine Creatinine Urine Total Protein Coronavirus (PCR) 03/24/20 03/24/20 03/25/20 16:22 21:28 04:16 RBC Hgb Hct RDW Lymph % (Auto) Lymph # (Auto) Seg Neutrophils % Seg Neutrophils # D-Dimer Sodium Potassium Chloride Carbon Dioxide 18 L BUN 128 H Creatinine 3.9 H Glucose POC Glucose 127 H 196 H Hemoglobin A1c Calcium 8.3 L Ferritin Lactate Dehydrogenase C-Reactive Protein NT-Pro-B Natriuret Pep Serum Total Protein Total Protein Albumin Nhizw-4-Mlvfehgif Lbcvt-9-Xmfkrbtkg PEP Interpretation Urine Creatinine Urine Total Protein Coronavirus (PCR) 03/25/20 03/25/20 11:14 16:42 RBC Hgb Hct RDW Lymph % (Auto) Lymph # (Auto) Seg Neutrophils % Seg Neutrophils # D-Dimer Sodium Potassium Chloride Carbon Dioxide BUN Creatinine Glucose POC Glucose 170 H 155 H Hemoglobin A1c Calcium Ferritin Lactate Dehydrogenase C-Reactive Protein NT-Pro-B Natriuret Pep Serum Total Protein Total Protein Albumin Xrpba-1-Kvigxigro Tnbex-2-Xjlrzdycj PEP Interpretation Urine Creatinine Urine Total Protein Coronavirus (PCR) Chest x-ray: report reviewed, image reviewed
[2020-03-26] MEDS: HEPARIN 5,000 UNIT/1 ML VIAL SUB-Q SCH ×3 (05:43→21:02)
[2020-03-26 06:30] LABS: Calcium 8.1 mg/dL (8.4-10.2)
[2020-03-26] MEDS: INSULIN REGULAR, HUMAN 100 UNIT/ML 3ML VIAL SUB-Q SCH ×7 (09:05→23:25)
[2020-03-26] MEDS: SUCRALFATE 1 GM TAB PO SCH ×4 (09:06→21:01)
[2020-03-26] MEDS: PANTOPRAZOLE 40 MG TAB PO SCH (09:06)
[2020-03-26] MEDS: ASCORBIC ACID 500 MG TAB PO SCH ×2 (10:54→21:01)
[2020-03-26] MEDS: amLODIPine 10 MG TAB PO SCH (10:55)
[2020-03-26] MEDS: CHOLECALCIFEROL (VIT D3) 5,000 UNIT TAB PO SCH (10:56)
[2020-03-26] MEDS: FUROSEMIDE 40 MG/4 ML INJ IV SCH (10:56)
[2020-03-26] MEDS: ZINC SULFATE 220 MG CAP PO SCH ×2 (10:56→21:02)
[2020-03-26] MEDS: INSULIN GLARGINE 100 UNITS/ML SUB-Q SCH (10:57)
[2020-03-26] MEDS: carvediloL 6.25 MG TAB PO SCH ×2 (11:01→22:22)
[2020-03-26] MEDS ORDERED: ONDANSETRON 4 MG/2 ML INJ IV PRN (13:15)
--- NOTE | 2020-03-26 13:50 | Progress Note ---
Assessment and Plan 1. 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 Renal US negative for hydro. Nephrotic range proteinuria. ANGIE, ANCA, Complements and GBM Ab negative. SPEP negative for M-spike. Monitor renal function. I/O not reported. BUN and Creatinine level trending upwards. Renal prognosis is guarded. Avoid nephrotoxic agents. Meds dosage based on GFR. Monitor for [employer] needs. Likely need hemodialysis soon. 2. FEN: Hyperkalemia, improved. Metabolic acidosis, PO Sodium bicarbonate. Hyponatremia, improved, monitor. Suspected volume overload, IV Lasix. Monitor lytes. 3. Acute respiratory failure with hypoxia: Due to COVID-19 pneumonia. Patient currently on NC O2. DuoNeb as needed. Followed by Pulmonary. 4. COVID-19 virus infection: S/p Dexamethasone. Patient is not a candidate for Remdesivir due to low GFR. Followed by ID. Follow the inflammatory markers. 5. Diabetes mellitus type 2: Follow blood glucose with QACHS with SSI. Consistent carb diet. 6. Hypertension: Monitor BP. 7. Anemia, POA: Monitor. Subjective: Patient was seen and examined at the bedside. Per RN pt is nauseated with decrease in appetite. Examination: General appearance: well-developed, well-nourished, appears stated age, obese, no distress HEENT: ATNC, ARUNA Neck: supple Respiratory: rales heard Cardiology: regular, S1S2, no murmur Gastrointestinal: normoactive bowel sounds, no tenderness, not distended, obese Integumentary: no rash, warm and dry Neurologic: able to move extremities Ext: no edema Subjective Date of service: 03/26/20 Principal diagnosis: Covid-19 Objective - Vital Signs Vital signs: Vital Signs - 12hr 03/26/20 03/26/20 03/26/20 05:34 05:35 10:54 Temperature 68.1 F L 98.1 F Pulse Rate 78 63 Pulse Rate [ Right Radial] Respiratory 20 Rate Blood Pressure 138/64 124/54 Blood Pressure [Left] O2 Sat by Pulse 93 Oximetry 03/26/20 03/26/20 03/26/20 10:55 10:57 11:00 Temperature 97.5 F L Pulse Rate 63 63 Pulse Rate [ 76 Right Radial] Respiratory 16 20 Rate Blood Pressure 124/54 Blood Pressure 124/54 [Left] O2 Sat by Pulse 94 94 Oximetry 03/26/20 11:01 Temperature Pulse Rate 63 Pulse Rate [ Right Radial] Respiratory Rate Blood Pressure 124/54 Blood Pressure [Left] O2 Sat by Pulse Oximetry - Lab 03/14/20 05:40 03/26/20 04:57 Most recent lab results Calcium 8.1 mg/dL (8.4-10.2) L 03/26/20 04:57 Phosphorus 3.20 mg/dL (2.5-4.5) 03/15/20 05:39 Magnesium 2.00 mg/dL (1.7-2.3) 03/15/20 05:39 Urine Creatinine 89.5 mg/dL (0.1-20.0) H 03/14/20 Unknown Urine Total Protein 826 mg/dL (5-11.8) H 03/14/20 Unknown Medications & Allergies - Medications Allergies/Adverse Reactions: Allergies No Known Allergies Allergy (Verified 07/31/18 07:06) Home Medications: Home Medications Medication Instructions Recorded Confirmed Last Taken Type Albuterol Mdi (or & Nicu Only) 2 puff IH QID PRN #1 inhalation 08/07/18 03/14/20 Unknown Rx [ProAir HFA Inhaler] Sucralfate [Carafate] 1 gm PO ACHS #30 tablet 08/07/18 03/14/20 03/13/20 Rx Insulin Regular, Human [HumuLIN R] 0 unit SQ AC #1 vial 08/11/18 03/14/20 Unknown Rx Labetalol HCl [Labetalol 300mg TAB] 300 mg PO BID #60 tablet 11/11/19 03/14/20 03/14/20 Rx Active Medications: Generic Name Dose Route Start Last Admin Trade Name Freq PRN Reason Stop Dose Admin Acetaminophen 650 mg 03/25/20 15:57 03/25/20 16:14 Acetaminophen 325 Mg Tab PO 650 mg Q4H PRN Administration Pain, Mild (1-3) Albuterol 2 puff 03/14/20 04:19 Albuterol 8.5 Gm Mdi Inhalation IH QID PRN Shortness Of Breath Amlodipine Besylate 10 mg 03/16/20 10:00 03/26/20 10:55 Amlodipine 10 Mg Tab PO 10 mg QDAY TERA Administration Ascorbic Acid 1,000 mg 03/15/20 10:00 03/26/20 10:54 Ascorbic Acid 500 Mg Tab PO 1,000 mg BID TERA Administration Carvedilol 6.25 mg 03/16/20 10:00 03/26/20 11:01 Carvedilol 6.25 Mg Tab PO 6.25 mg BID TERA Administration Cholecalciferol 5,000 unit 03/15/20 10:00 03/26/20 10:56 Cholecalciferol (Vit D3) 5,000 Unit Tab PO 5,000 unit DAILY TERA Administration Furosemide 80 mg 03/23/20 10:00 03/26/20 10:56 Furosemide 40 Mg/4 Ml Inj IV 80 mg QDAY TERA Administration Heparin Sodium (Porcine) 5,000 unit 03/14/20 06:00 03/26/20 05:43 Heparin 5,000 Unit/1 Ml Vial SUB-Q 5,000 unit Q8HR TERA Administration Hydralazine HCl 5 mg 03/16/20 09:43 03/17/20 06:09 Hydralazine 20 Mg/1 Ml Inj IV 5 mg Q4HR PRN Administration Hypertension Insulin Glargine 15 units 03/22/20 10:00 03/26/20 10:57 Insulin Glargine 100 Units/Ml SUB-Q Not Given QAM [facility] Insulin Human Regular 0 unit 03/15/20 11:30 03/26/20 12:57 Insulin Regular, Human 100 Unit/Ml 3ml Vial SUB-Q 6 unit ACHS TERA Administration Protocol Insulin Human Regular 8 unit 03/21/20 16:30 03/26/20 13:00 Insulin Regular, Human 100 Unit/Ml 3ml Vial SUB-Q 8 unit AC TERA Administration Labetalol HCl 300 mg 03/14/20 10:00 03/26/20 10:54 Labetalol 200 Mg Tab PO 300 mg BID TERA Administration Ondansetron HCl 4 mg 03/26/20 13:15 Ondansetron 4 Mg/2 Ml Inj IV Q8H PRN N/V unrelieved by Raymond Pantoprazole Sodium 40 mg 03/14/20 07:30 03/26/20 09:06 Pantoprazole 40 Mg Tab PO 40 mg QDAC TERA Administration Sucralfate 1 gm 03/14/20 07:30 03/26/20 12:57 Sucralfate 1 Gm Tab PO 1 gm ACHS TERA Administration Zinc Sulfate 220 mg 03/15/20 10:00 03/26/20 10:56 Zinc Sulfate 220 Mg Cap PO 220 mg BID TERA Administration
--- NOTE | 2020-03-26 19:35 | Progress Note ---
Assessment and Plan Imp: 1. Covid-19 2. Viral pneumonia 3. Acute respiratory failure, hypoxia 4. FLORIDALMA 5. Morbid obesity Rec: 1. On 3L NC; cont. current therapy with close monitoring 2. Complex decision-making Plan of care reviewed w/ patient, she understands/agrees Subjective Date of service: 03/26/20 Principal diagnosis: Covid-19 Interval history: No events. Awake, alert. No complaints. Active Medications Acetaminophen (Acetaminophen 325 Mg Tab) 650 mg PO Q4H PRN PRN Reason: Pain, Mild (1-3) Last Admin: 03/25/20 16:14 Dose: 650 mg Documented by: Albuterol (Albuterol 8.5 Gm Mdi Inhalation) 2 puff IH QID PRN PRN Reason: Shortness Of Breath Amlodipine Besylate (Amlodipine 10 Mg Tab) 10 mg PO QDAY [facility] Last Admin: 03/26/20 10:55 Dose: 10 mg Documented by: Ascorbic Acid (Ascorbic Acid 500 Mg Tab) 1,000 mg PO BID [facility] Last Admin: 03/26/20 10:54 Dose: 1,000 mg Documented by: Carvedilol (Carvedilol 6.25 Mg Tab) 6.25 mg PO BID [facility] Last Admin: 03/26/20 11:01 Dose: 6.25 mg Documented by: Cholecalciferol (Cholecalciferol (Vit D3) 5,000 Unit Tab) 5,000 unit PO DAILY [facility] Last Admin: 03/26/20 10:56 Dose: 5,000 unit Documented by: Furosemide (Furosemide 40 Mg/4 Ml Inj) 80 mg IV QDAY [facility] Last Admin: 03/26/20 10:56 Dose: 80 mg Documented by: Heparin Sodium (Porcine) (Heparin 5,000 Unit/1 Ml Vial) 5,000 unit SUB-Q Q8HR [facility] Last Admin: 03/26/20 14:00 Dose: 5,000 unit Documented by: Hydralazine HCl (Hydralazine 20 Mg/1 Ml Inj) 5 mg IV Q4HR PRN PRN Reason: Hypertension Last Admin: 03/17/20 06:09 Dose: 5 mg Documented by: Insulin Glargine (Insulin Glargine 100 Units/Ml) 15 units SUB-Q QAM [facility] Last Admin: 03/26/20 10:57 Dose: Not Given Documented by: Insulin Human Regular (Insulin Regular, Human 100 Unit/Ml 3ml Vial) 0 unit SUB- Q ACHS [facility]; Protocol Last Admin: 03/26/20 18:04 Dose: 4 unit Documented by: Insulin Human Regular (Insulin Regular, Human 100 Unit/Ml 3ml Vial) 8 unit SUB- Q [facility] Last Admin: 03/26/20 18:05 Dose: 8 unit Documented by: Labetalol HCl (Labetalol 200 Mg Tab) 300 mg PO BID [facility] Last Admin: 03/26/20 10:54 Dose: 300 mg Documented by: Ondansetron HCl (Ondansetron 4 Mg/2 Ml Inj) 4 mg IV Q8H PRN PRN Reason: N/V unrelieved by Reglan Last Admin: 03/26/20 14:01 Dose: 4 mg Documented by: Pantoprazole Sodium ([facility]antoprazole 40 Mg Tab) [facility] Last Admin: 03/26/20 09:06 Dose: 40 mg Documented by: Sucralfate (Sucralfate 1 Gm Tab) 1 gm PO [facility] Last Admin: 03/26/20 17:59 Dose: 1 gm Documented by: Zinc Sulfate (Zinc Sulfate 220 Mg Cap) 220 mg PO BID [facility] Last Admin: 03/26/20 10:56 Dose: 220 mg Documented by: Objective Vital Signs - 12hr 03/26/20 03/26/20 03/26/20 10:54 10:55 10:57 Temperature 97.5 F L Pulse Rate 63 63 63 Pulse Rate [ Right Radial] Respiratory 16 Rate Blood Pressure 124/54 124/54 Blood Pressure 124/54 [Left] O2 Sat by Pulse 94 Oximetry 03/26/20 03/26/20 03/26/20 11:00 11:01 12:37 Temperature 98.0 F Pulse Rate 63 65 Pulse Rate [ 76 Right Radial] Respiratory 20 24 Rate Blood Pressure 124/54 139/57 Blood Pressure [Left] O2 Sat by Pulse 94 91 Oximetry 03/26/20 16:13 Temperature 98.3 F Pulse Rate 61 Pulse Rate [ Right Radial] Respiratory 18 Rate Blood Pressure 134/50 Blood Pressure [Left] O2 Sat by Pulse 96 Oximetry Constitutional: no acute distress, alert Eyes: non-icteric ENT: oropharynx moist Neck: supple Effort: normal (mild tachypnea) Ascultation: Bilateral: rales Cardiovascular: regular rate and rhythm (no mrg) Gastrointestinal: normoactive bowel sounds, soft, non-tender, non-distended Integumentary: normal Extremities: no cyanosis, no edema, pink and warm Neurologic: normal mental status, non-focal exam, pupils equal and round Psychiatric: mood appropriate, affect normal CBC and BMP: 03/14/20 05:40 03/26/20 04:57 ABG, PT/INR, D-dimer: PT/INR, D-dimer PT 13.6 Sec. (12.2-14.9) 03/14/20 02:52 INR 1.05 (0.87-1.13) 03/14/20 02:52 D-Dimer 845.52 ng/mlDDU (0-234) H 03/14/20 02:52 Abnormal lab findings: Abnormal Labs 03/14/20 03/14/20 03/14/20 02:52 02:52 02:52 RBC 3.40 L Hgb 9.4 L Hct 28.8 L RDW 15.6 H Lymph % (Auto) 6.2 L Lymph # (Auto) 0.6 L Seg Neutrophils % 87.6 H Seg Neutrophils # 8.2 H D-Dimer 845.52 H Sodium 131 L Potassium Chloride Carbon Dioxide 17 L BUN 44 H Creatinine 2.9 H Glucose 276 H POC Glucose Hemoglobin A1c Calcium 7.8 L Ferritin Lactate Dehydrogenase C-Reactive Protein NT-Pro-B Natriuret Pep Serum Total Protein Total Protein 5.5 L Albumin 2.8 L Wwndf-0-Emgoehtyj Yselm-7-Ixfrgdaex PEP Interpretation Urine Creatinine Urine Total Protein Coronavirus (PCR) 03/14/20 03/14/20 03/14/20 02:52 02:52 05:40 RBC 3.57 L Hgb 9.9 L Hct RDW 15.9 H Lymph % (Auto) 4.5 L Lymph # (Auto) 0.5 L Seg Neutrophils % 91.9 H Seg Neutrophils # 9.2 H D-Dimer Sodium Potassium Chloride Carbon Dioxide BUN Creatinine Glucose POC Glucose Hemoglobin A1c Calcium Ferritin 273.0 H Lactate Dehydrogenase 413 H C-Reactive Protein 10.30 H NT-Pro-B Natriuret Pep 68309 H Serum Total Protein Total Protein Albumin Ycwko-5-Uzkqbiocg Adkvk-5-Etrlyjdrj PEP Interpretation Urine Creatinine Urine Total Protein Coronavirus (PCR) 03/14/20 03/14/20 03/14/20 05:40 Unknown Unknown RBC Hgb Hct RDW Lymph % (Auto) Lymph # (Auto) Seg Neutrophils % Seg Neutrophils # D-Dimer Sodium Potassium Chloride Carbon Dioxide BUN Creatinine Glucose POC Glucose Hemoglobin A1c Calcium Ferritin Lactate Dehydrogenase C-Reactive Protein 11.90 H NT-Pro-B Natriuret Pep Serum Total Protein Total Protein Albumin Mbkig-3-Ronmkqlnd Zyler-7-Afkivrmxd PEP Interpretation Urine Creatinine 89.5 H Urine Total Protein 826 H Coronavirus (PCR) Positive A 03/15/20 03/15/20 03/15/20 05:39 12:07 14:31 RBC Hgb Hct RDW Lymph % (Auto) Lymph # (Auto) Seg Neutrophils % Seg Neutrophils # D-Dimer Sodium 134 L Potassium Chloride Carbon Dioxide 15 L BUN 64 H Creatinine 3.5 H Glucose 532 H* POC Glucose 504 H Hemoglobin A1c 8.0 H Calcium Ferritin Lactate Dehydrogenase C-Reactive Protein NT-Pro-B Natriuret Pep Serum Total Protein Total Protein Albumin Urkuw-9-Lcjqrbzok Qludc-6-Ccdckkwas PEP Interpretation Urine Creatinine Urine Total Protein Coronavirus (PCR) 03/15/20 03/15/20 03/16/20 15:25 21:15 04:15 RBC Hgb Hct RDW Lymph % (Auto) Lymph # (Auto) Seg Neutrophils % Seg Neutrophils # D-Dimer Sodium Potassium 5.2 H Chloride 108.5 H Carbon Dioxide 15 L BUN 75 H Creatinine 3.6 H Glucose 305 H POC Glucose 528 H 438 H Hemoglobin A1c Calcium 8.2 L Ferritin Lactate Dehydrogenase C-Reactive Protein NT-Pro-B Natriuret Pep Serum Total Protein Total Protein Albumin Mzrfz-8-Raimfvttt Tysfm-9-Hoajqskie PEP Interpretation Urine Creatinine Urine Total Protein Coronavirus (PCR) 03/16/20 03/16/20 03/16/20 08:05 11:29 17:25 RBC Hgb Hct RDW Lymph % (Auto) Lymph # (Auto) Seg Neutrophils % Seg Neutrophils # D-Dimer Sodium Potassium Chloride Carbon Dioxide BUN Creatinine Glucose POC Glucose 262 H 255 H 268 H Hemoglobin A1c Calcium Ferritin Lactate Dehydrogenase C-Reactive Protein NT-Pro-B Natriuret Pep Serum Total Protein Total Protein Albumin Eoyke-6-Zzsxaaptv Ijwnq-3-Qputzyeqm PEP Interpretation Urine Creatinine Urine Total Protein Coronavirus (PCR) 03/16/20 03/17/2021 23:01 04:32 04:32 RBC Hgb Hct RDW Lymph % (Auto) Lymph # (Auto) Seg Neutrophils % Seg Neutrophils # D-Dimer Sodium Potassium Chloride Carbon Dioxide 20 L BUN 79 H Creatinine 3.5 H Glucose 121 H POC Glucose 195 H Hemoglobin A1c Calcium Ferritin Lactate Dehydrogenase C-Reactive Protein NT-Pro-B Natriuret Pep Serum Total Protein 6.0 L Total Protein Albumin 2.7 L Xygop-4-Qsxruoqhp 0.6 H Mgqwa-6-Zrykdwkja 1.1 H PEP Interpretation see below H Urine Creatinine Urine Total Protein Coronavirus (PCR) 03/17/20 03/17/20 03/17/20 07:44 12:33 16:12 RBC Hgb Hct RDW Lymph % (Auto) Lymph # (Auto) Seg Neutrophils % Seg Neutrophils # D-Dimer Sodium Potassium Chloride Carbon Dioxide BUN Creatinine Glucose POC Glucose 129 H 258 H 213 H Hemoglobin A1c Calcium Ferritin Lactate Dehydrogenase C-Reactive Protein NT-Pro-B Natriuret Pep Serum Total Protein Total Protein Albumin Dketj-8-Zjtektdbr Kxddg-0-Cjyklyvtp PEP Interpretation Urine Creatinine Urine Total Protein Coronavirus (PCR) 03/17/20 03/18/20 03/18/20 22:04 04:24 07:56 RBC Hgb Hct RDW Lymph % (Auto) Lymph # (Auto) Seg Neutrophils % Seg Neutrophils # D-Dimer Sodium Potassium Chloride Carbon Dioxide 20 L BUN 91 H Creatinine 3.4 H Glucose 150 H POC Glucose 218 H 118 H Hemoglobin A1c Calcium Ferritin Lactate Dehydrogenase C-Reactive Protein NT-Pro-B Natriuret Pep Serum Total Protein Total Protein Albumin Cotgj-9-Fznalaqkb Xjdri-0-Bkrewvgrs PEP Interpretation Urine Creatinine Urine Total Protein Coronavirus (PCR) 03/18/20 03/18/20 03/18/20 12:09 16:51 21:59 RBC Hgb Hct RDW Lymph % (Auto) Lymph # (Auto) Seg Neutrophils % Seg Neutrophils # D-Dimer Sodium Potassium Chloride Carbon Dioxide BUN Creatinine Glucose POC Glucose 254 H 240 H 269 H Hemoglobin A1c Calcium Ferritin Lactate Dehydrogenase C-Reactive Protein NT-Pro-B Natriuret Pep Serum Total Protein Total Protein Albumin Dkiyc-2-Cetkhkrlx Fhdci-9-Typreeswf PEP Interpretation Urine Creatinine Urine Total Protein Coronavirus (PCR) 03/19/20 03/19/20 03/19/20 04:34 11:45 16:32 RBC Hgb Hct RDW Lymph % (Auto) Lymph # (Auto) Seg Neutrophils % Seg Neutrophils # D-Dimer Sodium Potassium Chloride Carbon Dioxide 20 L BUN 94 H Creatinine 3.4 H Glucose 132 H POC Glucose 179 H 267 H Hemoglobin A1c Calcium Ferritin Lactate Dehydrogenase C-Reactive Protein NT-Pro-B Natriuret Pep Serum Total Protein Total Protein Albumin Jdpwc-3-Oewrbtjfa Hasgn-7-Kvpyriflr PEP Interpretation Urine Creatinine Urine Total Protein Coronavirus (PCR) 03/19/20 03/20/20 03/20/20 21:44 04:29 07:48 RBC Hgb Hct RDW Lymph % (Auto) Lymph # (Auto) Seg Neutrophils % Seg Neutrophils # D-Dimer Sodium 136 L Potassium Chloride Carbon Dioxide 15 L BUN 107 H Creatinine 3.5 H Glucose 206 H POC Glucose 352 H 125 H Hemoglobin A1c Calcium 8.3 L Ferritin Lactate Dehydrogenase C-Reactive Protein NT-Pro-B Natriuret Pep Serum Total Protein Total Protein Albumin Cgpxf-8-Ivdkgxpau Jkzlt-5-Xizdmllts PEP Interpretation Urine Creatinine Urine Total Protein Coronavirus (PCR) 03/20/20 03/20/20 03/20/20 11:16 17:25 21:00 RBC Hgb Hct RDW Lymph % (Auto) Lymph # (Auto) Seg Neutrophils % Seg Neutrophils # D-Dimer Sodium Potassium Chloride Carbon Dioxide BUN Creatinine Glucose POC Glucose 144 H 157 H 163 H Hemoglobin A1c Calcium Ferritin Lactate Dehydrogenase C-Reactive Protein NT-Pro-B Natriuret Pep Serum Total Protein Total Protein Albumin Dvlmm-9-Rwtvysgph Dprsg-6-Xcbwcnflh PEP Interpretation Urine Creatinine Urine Total Protein Coronavirus (PCR) 03/21/20 03/21/20 03/21/20 04:17 09:34 12:43 RBC Hgb Hct RDW Lymph % (Auto) Lymph # (Auto) Seg Neutrophils % Seg Neutrophils # D-Dimer Sodium 136 L Potassium Chloride Carbon Dioxide 18 L BUN 111 H Creatinine 3.5 H Glucose POC Glucose 219 H 209 H Hemoglobin A1c Calcium 8.3 L Ferritin Lactate Dehydrogenase C-Reactive Protein NT-Pro-B Natriuret Pep Serum Total Protein Total Protein Albumin Wftsf-1-Uwmtldnfp Qgoad-2-Rnqvlomqx PEP Interpretation Urine Creatinine Urine Total Protein Coronavirus (PCR) 03/21/20 03/21/20 03/22/20 15:56 22:34 04:14 RBC Hgb Hct RDW Lymph % (Auto) Lymph # (Auto) Seg Neutrophils % Seg Neutrophils # D-Dimer Sodium 135 L Potassium Chloride Carbon Dioxide 21 L BUN 107 H Creatinine 3.6 H Glucose POC Glucose 210 H 198 H Hemoglobin A1c Calcium 7.6 L Ferritin Lactate Dehydrogenase C-Reactive Protein NT-Pro-B Natriuret Pep Serum Total Protein Total Protein Albumin Nufwy-5-Hjeqqzsiq Eeplx-5-Uuvkqbqrd PEP Interpretation Urine Creatinine Urine Total Protein Coronavirus (PCR) 03/22/20 03/22/20 03/22/20 07:28 08:40 11:01 RBC Hgb Hct RDW Lymph % (Auto) Lymph # (Auto) Seg Neutrophils % Seg Neutrophils # D-Dimer Sodium Potassium Chloride Carbon Dioxide BUN Creatinine Glucose POC Glucose 58 L 122 H 160 H Hemoglobin A1c Calcium Ferritin Lactate Dehydrogenase C-Reactive Protein NT-Pro-B Natriuret Pep Serum Total Protein Total Protein Albumin Gibnj-5-Pdldqlygb Yqaao-0-Jqlfipzxd PEP Interpretation Urine Creatinine Urine Total Protein Coronavirus (PCR) 03/22/20 03/22/20 03/23/20 17:10 21:03 04:26 RBC Hgb Hct RDW Lymph % (Auto) Lymph # (Auto) Seg Neutrophils % Seg Neutrophils # D-Dimer Sodium 135 L Potassium Chloride Carbon Dioxide 18 L BUN 121 H Creatinine 3.6 H Glucose 173 H POC Glucose 139 H 166 H Hemoglobin A1c Calcium 8.1 L Ferritin Lactate Dehydrogenase C-Reactive Protein NT-Pro-B Natriuret Pep Serum Total Protein Total Protein Albumin Lzphy-8-Nyqnwljji Ijjoj-1-Mgfpaqeoo PEP Interpretation Urine Creatinine Urine Total Protein Coronavirus (PCR) 03/23/20 03/23/20 03/23/20 07:52 11:58 16:35 RBC Hgb Hct RDW Lymph % (Auto) Lymph # (Auto) Seg Neutrophils % Seg Neutrophils # D-Dimer Sodium Potassium Chloride Carbon Dioxide BUN Creatinine Glucose POC Glucose 138 H 252 H 272 H Hemoglobin A1c Calcium Ferritin Lactate Dehydrogenase C-Reactive Protein NT-Pro-B Natriuret Pep Serum Total Protein Total Protein Albumin Sbgda-5-Lnvuordpc Aolfn-0-Bvrihlxjr PEP Interpretation Urine Creatinine Urine Total Protein Coronavirus (PCR) 03/23/20 03/24/20 03/24/20 21:16 04:23 11:16 RBC Hgb Hct RDW Lymph % (Auto) Lymph # (Auto) Seg Neutrophils % Seg Neutrophils # D-Dimer Sodium 135 L Potassium Chloride Carbon Dioxide 19 L BUN 125 H Creatinine 3.8 H Glucose 166 H POC Glucose 311 H 168 H Hemoglobin A1c Calcium 8.3 L Ferritin Lactate Dehydrogenase C-Reactive Protein NT-Pro-B Natriuret Pep Serum Total Protein Total Protein Albumin Pwxkc-6-Luumqgcfn Nqmdk-5-Sjdxyduxv PEP Interpretation Urine Creatinine Urine Total Protein Coronavirus (PCR) 03/24/20 03/24/20 03/25/20 16:22 21:28 04:16 RBC Hgb Hct RDW Lymph % (Auto) Lymph # (Auto) Seg Neutrophils % Seg Neutrophils # D-Dimer Sodium Potassium Chloride Carbon Dioxide 18 L BUN 128 H Creatinine 3.9 H Glucose POC Glucose 127 H 196 H Hemoglobin A1c Calcium 8.3 L Ferritin Lactate Dehydrogenase C-Reactive Protein NT-Pro-B Natriuret Pep Serum Total Protein Total Protein Albumin Sgpef-3-Bfygpesmr Mrhrv-5-Jpiypeiyk PEP Interpretation Urine Creatinine Urine Total Protein Coronavirus (PCR) 03/25/20 03/25/20 03/25/20 11:14 16:42 22:07 RBC Hgb Hct RDW Lymph % (Auto) Lymph # (Auto) Seg Neutrophils % Seg Neutrophils # D-Dimer Sodium Potassium Chloride Carbon Dioxide BUN Creatinine Glucose POC Glucose 170 H 155 H 126 H Hemoglobin A1c Calcium Ferritin Lactate Dehydrogenase C-Reactive Protein NT-Pro-B Natriuret Pep Serum Total Protein Total Protein Albumin Itiam-4-Wobuazwiq Mmjdg-2-Pmnylpuld PEP Interpretation Urine Creatinine Urine Total Protein Coronavirus (PCR) 03/26/20 03/26/20 03/26/20 04:57 07:51 11:42 RBC Hgb Hct RDW Lymph % (Auto) Lymph # (Auto) Seg Neutrophils % Seg Neutrophils # D-Dimer Sodium Potassium Chloride Carbon Dioxide 21 L BUN 127 H Creatinine 4.0 H Glucose 126 H POC Glucose 135 H 257 H Hemoglobin A1c Calcium 8.1 L Ferritin Lactate Dehydrogenase C-Reactive Protein NT-Pro-B Natriuret Pep Serum Total Protein Total Protein Albumin Eazie-8-Xjfqauzbt Zqfws-5-Tihbdgnqf PEP Interpretation Urine Creatinine Urine Total Protein Coronavirus (PCR) 03/26/20 16:31 RBC Hgb Hct RDW Lymph % (Auto) Lymph # (Auto) Seg Neutrophils % Seg Neutrophils # D-Dimer Sodium Potassium Chloride Carbon Dioxide BUN Creatinine Glucose POC Glucose 234 H Hemoglobin A1c Calcium Ferritin Lactate Dehydrogenase C-Reactive Protein NT-Pro-B Natriuret Pep Serum Total Protein Total Protein Albumin Pqlej-8-Kmhlvonsp Knbor-6-Oqgebowff PEP Interpretation Urine Creatinine Urine Total Protein Coronavirus (PCR) Chest x-ray: report reviewed, image reviewed
[2020-03-27 06:08] LABS: Basophils % (Auto) 0.1 % (0.0-1.8); Eosinophils # (Auto) 0.4 K/mm3 (0.0-0.4); Eosinophils % (Auto) 3.2 % (0.0-4.3); Hematocrit 28.1 % (30.3-42.9); Lymphocytes # (Auto) 0.5 K/mm3 (1.2-5.4); Lymphocytes % (Auto) 4.6 % (13.4-35.0); Mean Corpuscular HGB Conc 32 % (30-34); Mean Corpuscular Volume 86 fl (79-97); Monocytes # (Auto) 0.9 K/mm3 (0.0-0.8); Monocytes % (Auto) 7.6 % (0.0-7.3); Platelet Count 268 K/mm3 (140-440); Red Blood Count 3.27 M/mm3 (3.65-5.03); Red Cell Distribution Width 16.6 % (13.2-15.2)
[2020-03-27 06:11] LABS: Calcium 8.3 mg/dL (8.4-10.2)
[2020-03-27] MEDS: HEPARIN 5,000 UNIT/1 ML VIAL SUB-Q SCH ×3 (06:22→21:45)
[2020-03-27] MEDS: INSULIN REGULAR, HUMAN 100 UNIT/ML 3ML VIAL SUB-Q SCH ×9 (08:00→21:48)
[2020-03-27] MEDS: PANTOPRAZOLE 40 MG TAB PO SCH (09:06)
[2020-03-27] MEDS: SUCRALFATE 1 GM TAB PO SCH ×4 (09:07→21:45)
--- NOTE | 2020-03-27 09:30 | Progress Note ---
Assessment and Plan 1. 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 Renal US negative for hydro. Nephrotic range proteinuria. ANGIE, ANCA, Complements and GBM Ab negative. SPEP negative for M-spike. Monitor renal function. I/O not reported. Creatinine leveled off. Renal prognosis is guarded. Avoid nephrotoxic agents. Meds dosage based on GFR. Monitor for MAP PLOTTER needs. No acute indication for MAP PLOTTER today. Also spoke to her daughter over the phone and and discussed the treatment optio ns if the renal function declines, possibly hemodialysis. She voiced understanding. 2. FEN: Hyperkalemia, improved. Metabolic acidosis, PO Sodium bicarbonate. Hyponatremia, improved, monitor. Suspected volume overload, IV Lasix. Goal is to keep euvolemic. Monitor lytes. 3. Acute respiratory failure with hypoxia: Due to COVID-19 pneumonia. Patient currently on [place] O2. DuoNeb as needed. Followed by Pulmonary. 4. COVID-19 virus infection: S/p Dexamethasone. Patient is not a candidate for Remdesivir due to low GFR. Followed by ID. Follow the inflammatory markers. 5. Diabetes mellitus type 2: Follow blood glucose with QACHS with SSI. Consistent carb diet. 6. Hypertension: Monitor BP. 7. Anemia, POA: Monitor. D/w Subjective: Patient was seen and examined at the bedside. Spoke to patient thru the marketing services coordinator phone at the bedside. She is doing ok. Decreased appetite. Sleeping ok. Able to get to the commode. No N, V, muscle weakness or confusion. Examination: General appearance: well-developed, well-nourished, appears stated age, obese, no distress, NC O2 HEENT: ATNC, [place] Neck: supple Respiratory: rales heard Cardiology: regular, S1S2, no murmur Gastrointestinal: normoactive bowel sounds, no tenderness, not distended, obese Integumentary: no rash, warm and dry Neurologic: conversing, able to move extremities Ext: no edema Subjective Date of service: 03/27/20 Principal diagnosis: Covid-19 Objective - Vital Signs Vital signs: Vital Signs - 12hr 03/26/20 03/26/20 03/26/20 21:34 22:22 22:23 Temperature 97.1 F L Pulse Rate 65 65 65 Respiratory 22 Rate Blood Pressure 137/47 137/47 137/47 O2 Sat by Pulse 94 Oximetry 03/27/20 03/27/20 03:34 07:55 Temperature 98.3 F Pulse Rate 71 Respiratory 25 H Rate Blood Pressure 139/51 O2 Sat by Pulse 92 96 Oximetry - Lab 03/27/20 03:52 03/27/20 03:52 Most recent lab results Calcium 8.3 mg/dL (8.4-10.2) L 03/27/20 03:52 Phosphorus 3.20 mg/dL (2.5-4.5) 03/15/20 05:39 Magnesium 2.00 mg/dL (1.7-2.3) 03/15/20 05:39 Urine Creatinine 89.5 mg/dL (0.1-20.0) H 03/14/20 Unknown Urine Total Protein 826 mg/dL (5-11.8) H 03/14/20 Unknown Medications & Allergies - Medications Allergies/Adverse Reactions: Allergies No Known Allergies Allergy (Verified 07/31/18 07:06) Home Medications: Home Medications Medication Instructions Recorded Confirmed Last Taken Type Albuterol Mdi (or & Nicu Only) 2 puff IH QID PRN #1 inhalation 08/07/18 03/14/20 Unknown Rx [ProAir HFA Inhaler] Sucralfate [Carafate] 1 gm PO ACHS #30 tablet 08/07/18 03/14/20 03/13/20 Rx Insulin Regular, Human [HumuLIN R] 0 unit SQ AC #1 vial 08/11/18 03/14/20 Unknown Rx Labetalol HCl [Labetalol 300mg TAB] 300 mg PO BID #60 tablet 11/11/19 03/14/20 03/14/20 Rx Active Medications: Generic Name Dose Route Start Last Admin Trade Name Freq PRN Reason Stop Dose Admin Acetaminophen 650 mg 03/25/20 15:57 03/25/20 16:14 Acetaminophen 325 Mg Tab PO 650 mg Q4H PRN Administration Pain, Mild (1-3) Albuterol 2 puff 03/14/20 04:19 Albuterol 8.5 Gm Mdi Inhalation IH QID PRN Shortness Of Breath Amlodipine Besylate 10 mg 03/16/20 10:00 03/26/20 10:55 Amlodipine 10 Mg Tab PO 10 mg QDAY TERA Administration Ascorbic Acid 1,000 mg 03/15/20 10:00 03/26/20 21:01 Ascorbic Acid 500 Mg Tab PO 1,000 mg BID TERA Administration Carvedilol 6.25 mg 03/16/20 10:00 03/26/20 22:22 Carvedilol 6.25 Mg Tab PO Not Given BID TERA Cholecalciferol 5,000 unit 03/15/20 10:00 03/26/20 10:56 Cholecalciferol (Vit D3) 5,000 Unit Tab PO 5,000 unit DAILY TERA Administration Furosemide 80 mg 03/23/20 10:00 03/26/20 10:56 Furosemide 40 Mg/4 Ml Inj IV 80 mg QDAY TERA Administration Heparin Sodium (Porcine) 5,000 unit 03/14/20 06:00 03/27/20 06:22 Heparin 5,000 Unit/1 Ml Vial SUB-Q 5,000 unit Q8HR TERA Administration Hydralazine HCl 5 mg 03/16/20 09:43 03/17/20 06:09 Hydralazine 20 Mg/1 Ml Inj IV 5 mg Q4HR PRN Administration Hypertension Insulin Glargine 15 units 03/22/20 10:00 03/26/20 10:57 Insulin Glargine 100 Units/Ml SUB-Q Not Given QAM [facility] Insulin Human Regular 0 unit 03/15/20 11:30 03/27/20 08:00 Insulin Regular, Human 100 Unit/Ml 3ml Vial SUB-Q Not Given ACHS [facility] Protocol Insulin Human Regular 8 unit 03/21/20 16:30 03/27/20 09:08 Insulin Regular, Human 100 Unit/Ml 3ml Vial SUB-Q 8 unit AC TERA Administration Labetalol HCl 300 mg 03/14/20 10:00 03/26/20 22:23 Labetalol 200 Mg Tab PO Not Given BID TERA Ondansetron HCl 4 mg 03/26/20 13:15 03/26/20 14:01 Ondansetron 4 Mg/2 Ml Inj IV 4 mg Q8H PRN Administration N/V unrelieved by Raymond Pantoprazole Sodium 40 mg 03/14/20 07:30 03/27/20 09:06 Pantoprazole 40 Mg Tab PO 40 mg QDAC [facility] Administration Sucralfate 1 gm 03/14/20 07:30 03/27/20 09:07 Sucralfate 1 Gm Tab PO 1 gm ACHS TERA Administration Zinc Sulfate 220 mg 03/15/20 10:00 03/26/20 21:02 Zinc Sulfate 220 Mg Cap PO 220 mg BID TERA Administration
--- NOTE | 2020-03-27 10:04 | Progress Note ---
Assessment and Plan 75-year-old female past medical history hypertension, CKD, diabetes admitted with COVID-19 pneumonia: -- Acute renal failure superimposed on chronic kidney disease Likely due to vasomotor nephropathy and COVID Avoid nephrotoxic drug. s/p gentle iv fluid but now d/aron We consulted nephrology for further evaluation and treatment. Recheck CBC BMP in the morning. -- Acute respiratory failure with hypoxia Due to COVID-19 pneumonia DuoNeb by nebulizer every 4 hours as needed. completed Decadron 6 mg IV daily for 10 days. Not a candidate for remdesivir for CKD Reconsult pulmonary as well as infectious disease for evaluation and treatment. We follow the inflammatory markers. As needed IV Lasix to prevent pulmonary edema --Diabetes mellitus type 2 Follow blood glucose with QACHS with SSI Consistent carb diet, added long-acting insulin -- COVID-19 virus infection s/p 10 days dexamethasone, patient is not a candidate for remdesivir due to declining renal function DuoNeb by nebulizer every 4 hours and as needed. Reconsulted pulmonary as well as infectious disease for evaluation and treatment. We will cont to follow the inflammatory markers. --Morbid obesity, risks for poor outcome with COVID-19 Weight reduction diet and exercise when patient clinically more stable as outpatient --DVT prophylaxis, Heparin 5000 units subcu every 8 hours Daily course: 03/14: Covid test is positive, started on dexamethasone. Will DC empiric antibiotics as procalcitonin level is normal. Follow ID recommendation, follow inflammatory markers. Patient is not a candidate for remdesivir due to decl ining renal function. Follow nephrology recommendation, monitor BMP 03/15; blood glucose greater than 400 today, started on long-acting and premeal insulin along with sliding scale. patient WAS ON 40L [place] THIS AM, now on 12 L high flow O2 today, will follow pulmonary recommendation. Continue Decadron, follow inflammatory markers, follow BMP, check A1c 03/16: Patient today on 8L O2, cont to follow inflammatory markers. Continue Decadron, minimize iv fluid trnsfusion. follow bmp. 03/17; patient is on 12 L of oxygen, ID is following the patient. Continue with Decadron. Nephrology is following. 03/18; patient is on 13 L of oxygen, ID and nephrology is following the patient. Patient is on Decadron, not a candidate for remdesivir because of her kidney function. Creatinine is trending down slightly. 03/19; patient is on 14 L of oxygen. ID, pulmonary and nephrology consult appreciated. Pulmonary recommends evaluation for LTAC because patient has prolonged weaning of high flow oxygen. 03/20: patient on 12L O2 today, cont wean off O2 03/21: patient remain on 10L O2. completed dexamethasone. wean off O2 as tolerated 03/22: cont to wean off O2, remains on high flow, sent referral for LTAC - pending 03/23: remains on 8L O2, pending LTAC, cont supportive care 03/24: Patient accepted to [facility], waiting on insurance authorization. Remains on supplemental O2, continue to provide supportive care, monitor BMP daily. 03/25: patient on 4L O2 today. need home O2 on discharge, consult CM. assess ambulatory O2 requirement. renal function cont to decline, cont to monitor 03/26: patient remains on 4L o2. will arrange home O2. wait for renal function to stabilize, monitor BMP Subjective Date of service: 03/26/20 Principal diagnosis: Covid-19 Interval history: Patient seen and examined. Medical records and medication list reviewed. No acute event overnight noted by the RN. Patient currently on 4 L nasal cannula Patient is tolerating diet. Discussed plan of care at bedside with patient with a mobile tonio bone process operator. Objective - Exam Narrative Exam: Limited physical exam due to COVID-19 pandemic to minimize transmission of the disease. Vital reviewed and stable. GENERAL: well-developed morbidly obese elderly female on bed appeared to be in mild discomfort. HEENT: Normocephalic. Atraumatic. NECK: Supple. CHEST/LUNGS: breathing slightly labored HEART/CARDIOVASCULAR: Heart rate stable on telemetry ABDOMEN: Obese SKIN: There is no rash NEURO: No focal motor deficit. Follows command. MUSCULOSKELETAL: No joint effusion EXTRIMITY: No swelling, no cyanosis or clubbing. PSYCH: Cooperative. - Constitutional Vitals: Vital Signs - 12hr 03/26/20 03/26/20 03/27/20 22:22 22:23 03:34 Temperature 98.3 F Pulse Rate 65 65 71 Respiratory 25 H Rate Blood Pressure 137/47 137/47 139/51 O2 Sat by Pulse 92 Oximetry 03/27/20 07:55 Temperature Pulse Rate Respiratory Rate Blood Pressure O2 Sat by Pulse 96 Oximetry - Labs CBC & Chem 7: 03/27/20 03:52 03/27/20 03:52 Labs: Abnormal lab results 03/26/20 03/26/20 03/26/20 Range/Units 11:42 16:31 21:31 WBC (4.5-11.0) K/mm3 RBC (3.65-5.03) M/mm3 Hgb (10.1-14.3) gm/dl Hct (30.3-42.9) % RDW (13.2-15.2) % Lymph % (Auto) (13.4-35.0) % [place] % (Auto) (0.0-7.3) % Lymph # (Auto) (1.2-5.4) K/mm3 [place] # (Auto) (0.0-0.8) K/mm3 Seg Neutrophils % (40.0-70.0) % Seg Neutrophils # (1.8-7.7) K/mm3 Sodium (137-145) mmol/L BUN (7-17) mg/dL Creatinine (0.6-1.2) mg/dL Glucose (65-100) mg/dL POC Glucose 257 H 234 H 176 H (70-105) mg/dL Calcium (8.4-10.2) mg/dL 03/27/20 03/27/20 03/27/20 Range/Units 03:52 03:52 07:51 WBC 11.9 H (4.5-11.0) K/mm3 RBC 3.27 L (3.65-5.03) M/mm3 Hgb 9.0 L (10.1-14.3) gm/dl Hct 28.1 L (30.3-42.9) % RDW 16.6 H (13.2-15.2) % Lymph % (Auto) 4.6 L (13.4-35.0) % [place] % (Auto) 7.6 H (0.0-7.3) % Lymph # (Auto) 0.5 L (1.2-5.4) K/mm3 [place] # (Auto) 0.9 H (0.0-0.8) K/mm3 Seg Neutrophils % 84.5 H (40.0-70.0) % Seg Neutrophils # 10.0 H (1.8-7.7) K/mm3 Sodium 136 L (137-145) mmol/L BUN 105 H (7-17) mg/dL Creatinine 4.0 H (0.6-1.2) mg/dL Glucose 123 H (65-100) mg/dL POC Glucose 130 H (70-105) mg/dL Calcium 8.3 L (8.4-10.2) mg/dL HEART Score - HEART Score Troponin: Troponin T 0.013 ng/mL (0.00-0.029) 03/14/20 02:52
--- NOTE | 2020-03-27 10:44 | Progress Note ---
Assessment and Plan 75 y/o female with acute respiratory failure secondary to COVID 19 pneumonia 03/27/20: Ok with discharge with home O2. Obtain ambulatory sat with oxygen if possible to determine exertion needs. 03/24/20: Continue to try to wean as tolerated. 4 maybe her new baseline. Follow up renal recs. Suggest CM work on oxygen for home. 03/23/20: Continue to wean FiO2 as tolerated. Tough to tell with accurate I/O but does appear that lasix may have helped with oxygenation. Guarded prognosis. 03/22/20: Encouraged IMS to reach out to CM to check with LTACH option. Continue to try to wean for sats >88%. Please ask renal if high dose lasix is an option to help with volume removal to see if this will improve oxygenation. Prognosis remains guarded. 03/21/20: Continue to wean for sats >88%. Proning if able. LTACH is still an option. 03/20/20: Continue to wean For sats >88%. Prone as tolerated if possible. Still would consider LTACH evaluation. 03/19/20: no new recs for today. Still would consider at least a trial of high dose lasix to see if that will help with oxygen requirement. Ask CM this week about LTACH given prolonged weaning. 03/18/20: Wean FiO2 as tolerated. Will ask renal about the possiblity of HIGH dose lasix at least once to see if it will help with volume removal. Antibodies not assessed. Need to check with CM about LTACH availability and qualifications. 03/17/20: Will ask RT to be more aggressive about weaning back down today. Still would check for antibodies to see if patient would qualify for plasma therapy. No additional IVF's unless absolutely necessary. Prognosis remains guarded. Continue steroids. May need to consider LTACH if weaning becomes more difficult and prolonged. 03/16/20: Continue to wean FiO2 for sats >88%. Still would consider checking antibodies to see if reactive and if patient would qualify for plasma therapy. 03/15/20: No new recs from today, please see below. 1. Wean FiO2 for sats >88% 2. Prone as tolerated during the day and sleep prone at night if possible 3. Assess antibody status to see if patient would benefit from convalescent plasma 4. Agree with steroids for 10 days total 5. Patient does have chronic renal disease, but if possible would not give IVF. Need to keep these patients as dry as possible. Await renal follow up and recs 6. No aerosol therapy Guarded prognosis Subjective Date of service: 03/27/20 Principal diagnosis: Covid-19 Interval history: No acute events. Down to 3 liters. Good sats. Objective Vital Signs - 12hr 03/27/20 03/27/20 03:34 07:55 Temperature 98.3 F Pulse Rate 71 Respiratory 25 H Rate Blood Pressure 139/51 O2 Sat by Pulse 92 96 Oximetry Constitutional: no acute distress, alert Eyes: non-icteric ENT: oropharynx moist Neck: supple Effort: normal (mild tachypnea) Ascultation: Bilateral: rales Cardiovascular: regular rate and rhythm (no mrg) Gastrointestinal: normoactive bowel sounds, soft, non-tender, non-distended Integumentary: normal Extremities: no cyanosis, no edema, pink and warm Neurologic: normal mental status, non-focal exam, pupils equal and round Psychiatric: mood appropriate, affect normal CBC and BMP: 03/27/20 03:52 03/27/20 03:52 ABG, PT/INR, D-dimer: PT/INR, D-dimer PT 13.6 Sec. (12.2-14.9) 03/14/20 02:52 INR 1.05 (0.87-1.13) 03/14/20 02:52 D-Dimer 845.52 ng/mlDDU (0-234) H 03/14/20 02:52 Abnormal lab findings: Abnormal Labs 03/14/20 03/14/20 03/14/20 02:52 02:52 02:52 WBC RBC 3.40 L Hgb 9.4 L Hct 28.8 L RDW 15.6 H Lymph % (Auto) 6.2 L Boyd % (Auto) Lymph # (Auto) 0.6 L [place] # (Auto) Seg Neutrophils % 87.6 H Seg Neutrophils # 8.2 H D-Dimer 845.52 H Sodium 131 L Potassium Chloride Carbon Dioxide 17 L BUN 44 H Creatinine 2.9 H Glucose 276 H POC Glucose Hemoglobin A1c Calcium 7.8 L Ferritin Lactate Dehydrogenase C-Reactive Protein NT-Pro-B Natriuret Pep Serum Total Protein Total Protein 5.5 L Albumin 2.8 L Xirbh-6-Nrulikatr Sehzz-8-Hyijqiljq PEP Interpretation Urine Creatinine Urine Total Protein Coronavirus (PCR) 03/14/20 03/14/20 03/14/20 02:52 02:52 05:40 WBC RBC 3.57 L Hgb 9.9 L Hct RDW 15.9 H Lymph % (Auto) 4.5 L [place] % (Auto) Lymph # (Auto) 0.5 L [place] # (Auto) Seg Neutrophils % 91.9 H Seg Neutrophils # 9.2 H D-Dimer Sodium Potassium Chloride Carbon Dioxide BUN Creatinine Glucose POC Glucose Hemoglobin A1c Calcium Ferritin 273.0 H Lactate Dehydrogenase 413 H C-Reactive Protein 10.30 H NT-Pro-B Natriuret Pep 65787 H Serum Total Protein Total Protein Albumin Jjcid-7-Dttukefqp Biabh-5-Tjqvxevzm PEP Interpretation Urine Creatinine Urine Total Protein Coronavirus (PCR) 03/14/20 03/14/20 03/14/20 05:40 Unknown Unknown WBC RBC Hgb Hct RDW Lymph % (Auto) [place] % (Auto) Lymph # (Auto) [place] # (Auto) Seg Neutrophils % Seg Neutrophils # D-Dimer Sodium Potassium Chloride Carbon Dioxide BUN Creatinine Glucose POC Glucose Hemoglobin A1c Calcium Ferritin Lactate Dehydrogenase C-Reactive Protein 11.90 H NT-Pro-B Natriuret Pep Serum Total Protein Total Protein Albumin Xaqmj-2-Xavdecyjh Ppnxl-3-Drzccxiix PEP Interpretation Urine Creatinine 89.5 H Urine Total Protein 826 H Coronavirus (PCR) Positive A 03/15/20 03/15/20 03/15/20 05:39 12:07 14:31 WBC RBC Hgb Hct RDW Lymph % (Auto) [place] % (Auto) Lymph # (Auto) [place] # (Auto) Seg Neutrophils % Seg Neutrophils # D-Dimer Sodium 134 L Potassium Chloride Carbon Dioxide 15 L BUN 64 H Creatinine 3.5 H Glucose 532 H* POC Glucose 504 H Hemoglobin A1c 8.0 H Calcium Ferritin Lactate Dehydrogenase C-Reactive Protein NT-Pro-B Natriuret Pep Serum Total Protein Total Protein Albumin Rwcyc-9-Ypnamqtsp Rsrzz-7-Upcsylwle PEP Interpretation Urine Creatinine Urine Total Protein Coronavirus (PCR) 03/15/20 03/15/20 03/16/20 15:25 21:15 04:15 WBC RBC Hgb Hct RDW Lymph % (Auto) [place] % (Auto) Lymph # (Auto) [place] # (Auto) Seg Neutrophils % Seg Neutrophils # D-Dimer Sodium Potassium 5.2 H Chloride 108.5 H Carbon Dioxide 15 L BUN 75 H Creatinine 3.6 H Glucose 305 H POC Glucose 528 H 438 H Hemoglobin A1c Calcium 8.2 L Ferritin Lactate Dehydrogenase C-Reactive Protein NT-Pro-B Natriuret Pep Serum Total Protein Total Protein Albumin Gxuns-2-Zzwsfkzkx Fsorh-7-Yijokitcb PEP Interpretation Urine Creatinine Urine Total Protein Coronavirus (PCR) 03/16/20 03/16/20 03/16/20 08:05 11:29 17:25 WBC RBC Hgb Hct RDW Lymph % (Auto) [place] % (Auto) Lymph # (Auto) [place] # (Auto) Seg Neutrophils % Seg Neutrophils # D-Dimer Sodium Potassium Chloride Carbon Dioxide BUN Creatinine Glucose POC Glucose 262 H 255 H 268 H Hemoglobin A1c Calcium Ferritin Lactate Dehydrogenase C-Reactive Protein NT-Pro-B Natriuret Pep Serum Total Protein Total Protein Albumin Ypzvo-0-Jxyhrsgap Mamkv-3-Tihcjviyp PEP Interpretation Urine Creatinine Urine Total Protein Coronavirus (PCR) 03/16/20 03/17/20 03/17/20 23:01 04:32 04:32 WBC RBC Hgb Hct RDW Lymph % (Auto) [place] % (Auto) Lymph # (Auto) [place] # (Auto) Seg Neutrophils % Seg Neutrophils # D-Dimer Sodium Potassium Chloride Carbon Dioxide 20 L BUN 79 H Creatinine 3.5 H Glucose 121 H POC Glucose 195 H Hemoglobin A1c Calcium Ferritin Lactate Dehydrogenase C-Reactive Protein NT-Pro-B Natriuret Pep Serum Total Protein 6.0 L Total Protein Albumin 2.7 L Znkjl-4-Ifhjzcdjx 0.6 H Knnzq-7-Mmwrlgdjj 1.1 H PEP Interpretation see below H Urine Creatinine Urine Total Protein Coronavirus (PCR) 03/17/20 03/17/20 03/17/20 07:44 12:33 16:12 WBC RBC Hgb Hct RDW Lymph % (Auto) [place] % (Auto) Lymph # (Auto) [place] # (Auto) Seg Neutrophils % Seg Neutrophils # D-Dimer Sodium Potassium Chloride Carbon Dioxide BUN Creatinine Glucose POC Glucose 129 H 258 H 213 H Hemoglobin A1c Calcium Ferritin Lactate Dehydrogenase C-Reactive Protein NT-Pro-B Natriuret Pep Serum Total Protein Total Protein Albumin Ztawr-6-Frqzzambv Tzvbu-1-Dzcuiicud PEP Interpretation Urine Creatinine Urine Total Protein Coronavirus (PCR) 03/17/20 03/18/20 03/18/20 22:04 04:24 07:56 WBC RBC Hgb Hct RDW Lymph % (Auto) [place] % (Auto) Lymph # (Auto) [place] # (Auto) Seg Neutrophils % Seg Neutrophils # D-Dimer Sodium Potassium Chloride Carbon Dioxide 20 L BUN 91 H Creatinine 3.4 H Glucose 150 H POC Glucose 218 H 118 H Hemoglobin A1c Calcium Ferritin Lactate Dehydrogenase C-Reactive Protein NT-Pro-B Natriuret Pep Serum Total Protein Total Protein Albumin Ttvqb-3-Rkvdyudvv Pzsmg-3-Ogiavefbk PEP Interpretation Urine Creatinine Urine Total Protein Coronavirus (PCR) 03/18/20 03/18/20 03/18/20 12:09 16:51 21:59 WBC RBC Hgb Hct RDW Lymph % (Auto) [place] % (Auto) Lymph # (Auto) [place] # (Auto) Seg Neutrophils % Seg Neutrophils # D-Dimer Sodium Potassium Chloride Carbon Dioxide BUN Creatinine Glucose POC Glucose 254 H 240 H 269 H Hemoglobin A1c Calcium Ferritin Lactate Dehydrogenase C-Reactive Protein NT-Pro-B Natriuret Pep Serum Total Protein Total Protein Albumin Aeeut-1-Bimbduekb Qvvoh-7-Keyqoagvh PEP Interpretation Urine Creatinine Urine Total Protein Coronavirus (PCR) 03/19/20 03/19/20 03/19/20 04:34 11:45 16:32 WBC RBC Hgb Hct RDW Lymph % (Auto) [place] % (Auto) Lymph # (Auto) [place] # (Auto) Seg Neutrophils % Seg Neutrophils # D-Dimer Sodium Potassium Chloride Carbon Dioxide 20 L BUN 94 H Creatinine 3.4 H Glucose 132 H POC Glucose 179 H 267 H Hemoglobin A1c Calcium Ferritin Lactate Dehydrogenase C-Reactive Protein NT-Pro-B Natriuret Pep Serum Total Protein Total Protein Albumin Orcgn-4-Iasvahzhe Aesff-8-Qortojadg PEP Interpretation Urine Creatinine Urine Total Protein Coronavirus (PCR) 03/19/20 03/20/20 03/20/20 21:44 04:29 07:48 WBC RBC Hgb Hct RDW Lymph % (Auto) [place] % (Auto) Lymph # (Auto) [place] # (Auto) Seg Neutrophils % Seg Neutrophils # D-Dimer Sodium 136 L Potassium Chloride Carbon Dioxide 15 L BUN 107 H Creatinine 3.5 H Glucose 206 H POC Glucose 352 H 125 H Hemoglobin A1c Calcium 8.3 L Ferritin Lactate Dehydrogenase C-Reactive Protein NT-Pro-B Natriuret Pep Serum Total Protein Total Protein Albumin Iluyw-1-Pqssjygml Jaotz-1-Ikqmjslkd PEP Interpretation Urine Creatinine Urine Total Protein Coronavirus (PCR) 03/20/20 03/20/20 03/20/20 11:16 17:25 21:00 WBC RBC Hgb Hct RDW Lymph % (Auto) [place] % (Auto) Lymph # (Auto) [place] # (Auto) Seg Neutrophils % Seg Neutrophils # D-Dimer Sodium Potassium Chloride Carbon Dioxide BUN Creatinine Glucose POC Glucose 144 H 157 H 163 H Hemoglobin A1c Calcium Ferritin Lactate Dehydrogenase C-Reactive Protein NT-Pro-B Natriuret Pep Serum Total Protein Total Protein Albumin Ubeix-6-Nssvdnwzw Gicao-6-Tiehymvch PEP Interpretation Urine Creatinine Urine Total Protein Coronavirus (PCR) 03/21/20 03/21/20 03/21/20 04:17 09:34 12:43 WBC RBC Hgb Hct RDW Lymph % (Auto) [place] % (Auto) Lymph # (Auto) [place] # (Auto) Seg Neutrophils % Seg Neutrophils # D-Dimer Sodium 136 L Potassium Chloride Carbon Dioxide 18 L BUN 111 H Creatinine 3.5 H Glucose POC Glucose 219 H 209 H Hemoglobin A1c Calcium 8.3 L Ferritin Lactate Dehydrogenase C-Reactive Protein NT-Pro-B Natriuret Pep Serum Total Protein Total Protein Albumin Wtlzk-3-Vdvfvndqg Grhzo-5-Samexyfru PEP Interpretation Urine Creatinine Urine Total Protein Coronavirus (PCR) 03/21/20 03/21/20 03/22/20 15:56 22:34 04:14 WBC RBC Hgb Hct RDW Lymph % (Auto) [place] % (Auto) Lymph # (Auto) [place] # (Auto) Seg Neutrophils % Seg Neutrophils # D-Dimer Sodium 135 L Potassium Chloride Carbon Dioxide 21 L BUN 107 H Creatinine 3.6 H Glucose POC Glucose 210 H 198 H Hemoglobin A1c Calcium 7.6 L Ferritin Lactate Dehydrogenase C-Reactive Protein NT-Pro-B Natriuret Pep Serum Total Protein Total Protein Albumin Jfwkj-0-Iqcbqhznq Xjjho-4-Geonkbwod PEP Interpretation Urine Creatinine Urine Total Protein Coronavirus (PCR) 03/22/20 03/22/20 03/22/20 07:28 08:40 11:01 WBC RBC Hgb Hct RDW Lymph % (Auto) [place] % (Auto) Lymph # (Auto) [place] # (Auto) Seg Neutrophils % Seg Neutrophils # D-Dimer Sodium Potassium Chloride Carbon Dioxide BUN Creatinine Glucose POC Glucose 58 L 122 H 160 H Hemoglobin A1c Calcium Ferritin Lactate Dehydrogenase C-Reactive Protein NT-Pro-B Natriuret Pep Serum Total Protein Total Protein Albumin Kkatz-9-Fcjzrtpjn Gmblo-3-Qoccyeknv PEP Interpretation Urine Creatinine Urine Total Protein Coronavirus (PCR) 03/22/20 03/22/20 03/23/20 17:10 21:03 04:26 WBC RBC Hgb Hct RDW Lymph % (Auto) Boyd % (Auto) Lymph # (Auto) [place] # (Auto) Seg Neutrophils % Seg Neutrophils # D-Dimer Sodium 135 L Potassium Chloride Carbon Dioxide 18 L BUN 121 H Creatinine 3.6 H Glucose 173 H POC Glucose 139 H 166 H Hemoglobin A1c Calcium 8.1 L Ferritin Lactate Dehydrogenase C-Reactive Protein NT-Pro-B Natriuret Pep Serum Total Protein Total Protein Albumin Vaolv-4-Zxcnymerw Ocrlm-5-Vqnylwkwb PEP Interpretation Urine Creatinine Urine Total Protein Coronavirus (PCR) 03/23/20 03/23/20 03/23/20 07:52 11:58 16:35 WBC RBC Hgb Hct RDW Lymph % (Auto) [place] % (Auto) Lymph # (Auto) Boyd # (Auto) Seg Neutrophils % Seg Neutrophils # D-Dimer Sodium Potassium Chloride Carbon Dioxide BUN Creatinine Glucose POC Glucose 138 H 252 H 272 H Hemoglobin A1c Calcium Ferritin Lactate Dehydrogenase C-Reactive Protein NT-Pro-B Natriuret Pep Serum Total Protein Total Protein Albumin Habkf-2-Jonkbwjoc Hhppa-0-Hgkmjambt PEP Interpretation Urine Creatinine Urine Total Protein Coronavirus (PCR) 03/23/20 03/24/20 03/24/20 21:16 04:23 11:16 WBC RBC Hgb Hct RDW Lymph % (Auto) [place] % (Auto) Lymph # (Auto) [place] # (Auto) Seg Neutrophils % Seg Neutrophils # D-Dimer Sodium 135 L Potassium Chloride Carbon Dioxide 19 L BUN 125 H Creatinine 3.8 H Glucose 166 H POC Glucose 311 H 168 H Hemoglobin A1c Calcium 8.3 L Ferritin Lactate Dehydrogenase C-Reactive Protein NT-Pro-B Natriuret Pep Serum Total Protein Total Protein Albumin Hnivp-6-Eujmtyuuo Srjjk-9-Udbxtbgvc PEP Interpretation Urine Creatinine Urine Total Protein Coronavirus (PCR) 03/24/20 03/24/20 03/25/20 16:22 21:28 04:16 WBC RBC Hgb Hct RDW Lymph % (Auto) Boyd % (Auto) Lymph # (Auto) [place] # (Auto) Seg Neutrophils % Seg Neutrophils # D-Dimer Sodium Potassium Chloride Carbon Dioxide 18 L BUN 128 H Creatinine 3.9 H Glucose POC Glucose 127 H 196 H Hemoglobin A1c Calcium 8.3 L Ferritin Lactate Dehydrogenase C-Reactive Protein NT-Pro-B Natriuret Pep Serum Total Protein Total Protein Albumin Hhbgn-0-Pgezhnokc Opslz-1-Cwmtnwnjr PEP Interpretation Urine Creatinine Urine Total Protein Coronavirus (PCR) 03/25/20 03/25/20 03/25/20 11:14 16:42 22:07 WBC RBC Hgb Hct RDW Lymph % (Auto) Boyd % (Auto) Lymph # (Auto) Boyd # (Auto) Seg Neutrophils % Seg Neutrophils # D-Dimer Sodium Potassium Chloride Carbon Dioxide BUN Creatinine Glucose POC Glucose 170 H 155 H 126 H Hemoglobin A1c Calcium Ferritin Lactate Dehydrogenase C-Reactive Protein NT-Pro-B Natriuret Pep Serum Total Protein Total Protein Albumin Dgutq-1-Rbvvkpskc Cypug-5-Urolglwsn PEP Interpretation Urine Creatinine Urine Total Protein Coronavirus (PCR) 03/26/20 03/26/20 03/26/20 04:57 07:51 11:42 WBC RBC Hgb Hct RDW Lymph % (Auto) [place] % (Auto) Lymph # (Auto) Boyd # (Auto) Seg Neutrophils % Seg Neutrophils # D-Dimer Sodium Potassium Chloride Carbon Dioxide 21 L BUN 127 H Creatinine 4.0 H Glucose 126 H POC Glucose 135 H 257 H Hemoglobin A1c Calcium 8.1 L Ferritin Lactate Dehydrogenase C-Reactive Protein NT-Pro-B Natriuret Pep Serum Total Protein Total Protein Albumin Wxaoa-2-Upmmvdwkk Vvqli-6-Xrepqinnn PEP Interpretation Urine Creatinine Urine Total Protein Coronavirus (PCR) 03/26/20 03/26/20 03/27/20 16:31 21:31 03:52 WBC RBC Hgb Hct RDW Lymph % (Auto) [place] % (Auto) Lymph # (Auto) Boyd # (Auto) Seg Neutrophils % Seg Neutrophils # D-Dimer Sodium 136 L Potassium Chloride Carbon Dioxide BUN 105 H Creatinine 4.0 H Glucose 123 H POC Glucose 234 H 176 H Hemoglobin A1c Calcium 8.3 L Ferritin Lactate Dehydrogenase C-Reactive Protein NT-Pro-B Natriuret Pep Serum Total Protein Total Protein Albumin Gqvnp-5-[place] Euhch-7-Bsirtxvnx PEP Interpretation Urine Creatinine Urine Total Protein Coronavirus (PCR) 01/25/21 01/25/21 03:52 07:51 WBC 11.9 H RBC 3.27 L Hgb 9.0 L Hct 28.1 L RDW 16.6 H Lymph % (Auto) 4.6 L Boyd % (Auto) 7.6 H Lymph # (Auto) 0.5 L Boyd # (Auto) 0.9 H Seg Neutrophils % 84.5 H Seg Neutrophils # 10.0 H D-Dimer Sodium Potassium Chloride Carbon Dioxide BUN Creatinine Glucose POC Glucose 130 H Hemoglobin A1c Calcium Ferritin Lactate Dehydrogenase C-Reactive Protein NT-Pro-B Natriuret Pep Serum Total Protein Total Protein Albumin Gvzfl-9-Eaeyhdamr Yhwaf-6-Makpqregq PEP Interpretation Urine Creatinine Urine Total Protein Coronavirus (PCR)
[2020-03-27] MEDS: amLODIPine 10 MG TAB PO SCH (11:26)
[2020-03-27] MEDS: ASCORBIC ACID 500 MG TAB PO SCH ×2 (11:26→21:56)
[2020-03-27] MEDS: CHOLECALCIFEROL (VIT D3) 5,000 UNIT TAB PO SCH (11:26)
[2020-03-27] MEDS: carvediloL 6.25 MG TAB PO SCH (11:27)
[2020-03-27] MEDS: FUROSEMIDE 40 MG/4 ML INJ IV SCH (11:27)
[2020-03-27] MEDS: INSULIN GLARGINE 100 UNITS/ML SUB-Q SCH (11:28)
[2020-03-27] MEDS: ZINC SULFATE 220 MG CAP PO SCH ×2 (11:28→21:46)
--- NOTE | 2020-03-27 13:10 | Progress Note ---
Assessment and Plan 75-year-old female past medical history hypertension, CKD, diabetes admitted with COVID-19 pneumonia: -- Acute renal failure superimposed on chronic kidney disease Likely due to vasomotor nephropathy and COVID Avoid nephrotoxic drug. s/p gentle iv fluid but now d/aron We consulted nephrology for further evaluation and treatment. Recheck CBC BMP in the morning. -- Acute respiratory failure with hypoxia Due to COVID-19 pneumonia DuoNeb by nebulizer every 4 hours as needed. completed Decadron 6 mg IV daily for 10 days. Not a candidate for remdesivir for CKD Reconsult pulmonary as well as infectious disease for evaluation and treatment. We follow the inflammatory markers. As needed IV Lasix to prevent pulmonary edema --Diabetes mellitus type 2 Follow blood glucose with QACHS with SSI Consistent carb diet, added long-acting insulin -- COVID-19 virus infection s/p 10 days dexamethasone, patient is not a candidate for remdesivir due to declining renal function DuoNeb by nebulizer every 4 hours and as needed. Reconsulted pulmonary as well as infectious disease for evaluation and treatment. We will cont to follow the inflammatory markers. --Morbid obesity, risks for poor outcome with COVID-19 Weight reduction diet and exercise when patient clinically more stable as outpatient --DVT prophylaxis, Heparin 5000 units subcu every 8 hours Daily course: 03/14: Covid test is positive, started on dexamethasone. Will DC empiric antibiotics as procalcitonin level is normal. Follow ID recommendation, follow inflammatory markers. Patient is not a candidate for remdesivir due to decl ining renal function. Follow nephrology recommendation, monitor BMP 03/15; blood glucose greater than 400 today, started on long-acting and premeal insulin along with sliding scale. patient WAS ON 40L [place] THIS AM, now on 12 L high flow O2 today, will follow pulmonary recommendation. Continue Decadron, follow inflammatory markers, follow BMP, check A1c 03/16: Patient today on 8L O2, cont to follow inflammatory markers. Continue Decadron, minimize iv fluid trnsfusion. follow bmp. 03/17; patient is on 12 L of oxygen, ID is following the patient. Continue with Decadron. Nephrology is following. 03/18; patient is on 13 L of oxygen, ID and nephrology is following the patient. Patient is on Decadron, not a candidate for remdesivir because of her kidney function. Creatinine is trending down slightly. 03/19; patient is on 14 L of oxygen. ID, pulmonary and nephrology consult appreciated. Pulmonary recommends evaluation for LTAC because patient has prolonged weaning of high flow oxygen. 03/20: patient on 12L O2 today, cont wean off O2 03/21: patient remain on 10L O2. completed dexamethasone. wean off O2 as tolerated 03/22: cont to wean off O2, remains on high flow, sent referral for LTAC - pending 03/23: remains on 8L O2, pending LTAC, cont supportive care 03/24: Patient accepted to [facility], waiting on insurance authorization. Remains on supplemental O2, continue to provide supportive care, monitor BMP daily. 03/25: patient on 4L O2 today. need home O2 on discharge, consult CM. assess ambulatory O2 requirement. renal function cont to decline, cont to monitor 03/26: patient remains on 4L o2. will arrange home O2. wait for renal function to stabilize, monitor BMP 03/27: Patient need rehab and remains on 4L with elevated BUN/cr. cont to monitor, accepted to LTAC but they can only take her tomorrow am. cont to follow Subjective Date of service: 03/27/20 Principal diagnosis: Covid-19 Objective - Constitutional Vitals: Vital Signs - 12hr 03/27/20 03/27/20 03/27/20 03:34 07:55 11:06 Temperature 98.3 F 99.4 F Pulse Rate 71 68 Respiratory 25 H 24 Rate Blood Pressure 139/51 139/53 O2 Sat by Pulse 92 96 95 Oximetry 03/27/20 03/27/20 11:26 11:27 Temperature Pulse Rate Respiratory Rate Blood Pressure 139/53 139/53 O2 Sat by Pulse Oximetry - Labs CBC & Chem 7: 03/27/20 03:52 03/27/20 03:52 Labs: Abnormal lab results 03/26/20 03/26/20 03/27/20 Range/Units 16:31 21:31 03:52 WBC (4.5-11.0) K/mm3 RBC (3.65-5.03) M/mm3 Hgb (10.1-14.3) gm/dl Hct (30.3-42.9) % RDW (13.2-15.2) % Lymph % (Auto) (13.4-35.0) % [place] % (Auto) (0.0-7.3) % Lymph # (Auto) (1.2-5.4) K/mm3 [place] # (Auto) (0.0-0.8) K/mm3 Seg Neutrophils % (40.0-70.0) % Seg Neutrophils # (1.8-7.7) K/mm3 Sodium 136 L (137-145) mmol/L BUN 105 H (7-17) mg/dL Creatinine 4.0 H (0.6-1.2) mg/dL Glucose 123 H (65-100) mg/dL POC Glucose 234 H 176 H (70-105) mg/dL Calcium 8.3 L (8.4-10.2) mg/dL 03/27/20 03/27/20 03/27/20 Range/Units 03:52 07:51 11:04 WBC 11.9 H (4.5-11.0) K/mm3 RBC 3.27 L (3.65-5.03) M/mm3 Hgb 9.0 L (10.1-14.3) gm/dl Hct 28.1 L (30.3-42.9) % RDW 16.6 H (13.2-15.2) % Lymph % (Auto) 4.6 L (13.4-35.0) % [place] % (Auto) 7.6 H (0.0-7.3) % Lymph # (Auto) 0.5 L (1.2-5.4) K/mm3 [place] # (Auto) 0.9 H (0.0-0.8) K/mm3 Seg Neutrophils % 84.5 H (40.0-70.0) % Seg Neutrophils # 10.0 H (1.8-7.7) K/mm3 Sodium (137-145) mmol/L BUN (7-17) mg/dL Creatinine (0.6-1.2) mg/dL Glucose (65-100) mg/dL POC Glucose 130 H 189 H (70-105) mg/dL Calcium (8.4-10.2) mg/dL HEART Score - HEART Score Troponin: Troponin T 0.013 ng/mL (0.00-0.029) 03/14/20 02:52
--- NOTE | 2020-03-27 14:21 | Discharge Summary ---
Providers - Providers Date of Admission: 03/14/20 10:10 Date of discharge: 03/28/20 Attending physician: BRIAN RAM 03/14/20 04:20 Consult to Physician [CONS] Routine Comment: Consulting Provider: JONA PAPPAS Physician Instructions: Reason For Exam: COVID-19 positive test (U07.1, COVID-19) with A 03/14/20 04:25 Consult to Physician [CONS] Routine Comment: Consulting Provider: LUPE WILSON Physician Instructions: COVID-19 positive test (U07.1, COVID-19) with A Reason For Exam: COVID-19 positive test (U07.1, COVID-19) with A 03/14/20 04:28 Consult to Physician [CONS] Routine Comment: Consulting Provider: JOSE ADLER Physician Instructions: Chronic kidney disease Reason For Exam: Chronic kidney disease 03/26/20 11:18 Physical Therapy Evaluation and Treat [CONS] Routine Comment: Reason For Exam: Debility Primary care physician: DEALERSHIP MANAGER Hospitalization Condition: Stable Pertinent studies: CXR Renal US Hospital course: 75-year-old female past medical history hypertension, CKD, diabetes admitted with COVID-19 pneumonia: Daily course: 03/14: Covid test is positive, started on dexamethasone. Will DC empiric antibiotics as procalcitonin level is normal. Follow ID recommendation, follow inflammatory markers. Patient is not a candidate for remdesivir due to declining renal function. Follow nephrology recommendation, monitor BMP 03/15; blood glucose greater than 400 today, started on long-acting and premeal insulin along with sliding scale. patient WAS ON 40L [place] THIS AM, now on 12 L high flow O2 today, will follow pulmonary recommendation. Continue Decadron, follow inflammatory markers, follow BMP, check A1c 03/16: Patient today on 8L O2, cont to follow inflammatory markers. Continue Decadron, minimize iv fluid trnsfusion. follow bmp. 03/17; patient is on 12 L of oxygen, ID is following the patient. Continue with Decadron. Nephrology is following. 03/18; patient is on 13 L of oxygen, ID and nephrology is following the patient. Patient is on Decadron, not a candidate for remdesivir because of her kidney function. Creatinine is trending down slightly. 03/19; patient is on 14 L of oxygen. ID, pulmonary and nephrology consult appreciated. Pulmonary recommends evaluation for LTAC because patient has prolonged weaning of high flow oxygen. 03/20: patient on 12L O2 today, cont wean off O2 03/21: patient remain on 10L O2. completed dexamethasone. wean off O2 as tolerated 03/22: cont to wean off O2, remains on high flow, sent referral for LTAC - pending 03/23: remains on 8L O2, pending LTAC, cont supportive care 03/24: Patient accepted to [facility], waiting on insurance authorization. Remains on supplemental O2, continue to provide supportive care, monitor BMP daily. 03/25: patient on 4L O2 today. need home O2 on discharge, consult CM. assess ambulatory O2 requirement. renal function cont to decline, cont to monitor 03/26: patient remains on 4L o2. will arrange home O2. wait for renal function to stabilize, monitor BMP 03/27: Patient remains on 4L and pulmonary cleared for discharge to home. Also discussed with nephrology and patient will be followed up as an outpatient for possible hemodialysis in the near future. Patient is clinically stable to go home with home O2. also accepted to LTAC and can accept her tomorrow. 03/28: patient clinically stable and maintaining O2 sat with 3L n/c. Clinically stable for discharge. Discharge Diagnosis and Mx: -- Acute renal failure superimposed on chronic kidney disease Likely due to vasomotor nephropathy and COVID Avoid nephrotoxic drug. s/p gentle iv fluid but now d/aron We consulted nephrology for further evaluation and treatment. Patient may need hemodialysis near future which will be followed up as an outpatient by Dr. Vazquez -- Acute respiratory failure with hypoxia Due to COVID-19 pneumonia s/p DuoNeb by nebulizer every 4 hours as needed. completed Decadron 6 mg IV daily for 10 days. Not a candidate for remdesivir for CKD s/p As needed IV Lasix to prevent pulmonary edema Need 4 L home O2 for discharge --Diabetes mellitus type 2 Follow blood glucose with QACHS with SSI Consistent carb diet, added long-acting insulin -- COVID-19 virus infection s/p 10 days dexamethasone, patient is not a candidate for remdesivir due to declining renal function s/p DuoNeb by nebulizer every 4 hours and as needed. --Morbid obesity, risks for poor outcome with COVID-19 Weight reduction diet and exercise when patient clinically more stable as outpatient --DVT prophylaxis, Heparin 5000 units subcu every 8 hours Disposition: DC/[place]-[address] [facility] Time spent for discharge: 34 minutes Core Measure Documentation - Palliative Care Palliative Care/ Comfort Measures: Not Applicable - Core Measures Any of the following diagnoses?: none Exam - Physical Exam Narrative exam: Limited physical exam due to COVID-19 pandemic to minimize transmission of the disease. Vital reviewed and stable. GENERAL: well-developed morbidly obese elderly female on bed appeared to be in mild discomfort. HEENT: Normocephalic. Atraumatic. NECK: Supple. CHEST/LUNGS: breathing slightly labored HEART/CARDIOVASCULAR: Heart rate stable on telemetry ABDOMEN: Obese SKIN: There is no rash NEURO: No focal motor deficit. Follows command. MUSCULOSKELETAL: No joint effusion EXTRIMITY: No swelling, no cyanosis or clubbing. PSYCH: Cooperative. - Constitutional Vitals: Temp Pulse Resp BP Pulse Ox 99.4 F 68 24 139/53 95 03/27/20 11:06 03/27/20 11:06 03/27/20 11:06 03/27/20 11:27 03/27/20 11:06 Plan Activity: fall precautions Weight Bearing Status: Non-Weight Bearing Diet: diabetic, renal Special Instructions: record daily BP diary, record blood sugar diary Additional Instructions: Repeat BMP in 1 week. Follow-up with road traffic controller in 1 week Follow up with: ROBY MORRIS MD [Primary Care Provider] - 3-5 Days KIET VAZQUEZ MD [Staff Physician] - 7 Days Prescriptions: amLODIPine 10 mg PO QDAY #30 tablet Insulin Glargine [Lantus VIAL] 15 units SUB-Q QAM #1 vial Furosemide [Lasix TAB] 80 mg PO DAILY #14 tablet
[2020-03-27] MEDS ORDERED: INSULIN REGULAR, HUMAN 100 UNITS/1 ML ONE (21:51)
[2020-03-28 05:46] LABS: Calcium 8.1 mg/dL (8.4-10.2)
[2020-03-28] MEDS: HEPARIN 5,000 UNIT/1 ML VIAL SUB-Q SCH (05:59)
--- NOTE | 2020-03-28 08:28 | Progress Note ---
Assessment and Plan 75 y/o female with acute respiratory failure secondary to COVID 19 pneumonia 03/28/20: No objection to discharge today. 03/27/20: Ok with discharge with home O2. Obtain ambulatory sat with oxygen if possible to determine exertion needs. 03/24/20: Continue to try to wean as tolerated. 4 maybe her new baseline. Follow up renal recs. Suggest CM work on oxygen for home. 03/23/20: Continue to wean FiO2 as tolerated. Tough to tell with accurate I/O but does appear that lasix may have helped with oxygenation. Guarded prognosis. 03/22/20: Encouraged IMS to reach out to CM to check with LTACH option. Continue to try to wean for sats >88%. Please ask renal if high dose lasix is an option to help with volume removal to see if this will improve oxygenation. Prognosis remains guarded. 03/21/20: Continue to wean for sats >88%. Proning if able. LTACH is still an option. 03/20/20: Continue to wean For sats >88%. Prone as tolerated if possible. Still would consider LTACH evaluation. 03/19/20: no new recs for today. Still would consider at least a trial of high dose lasix to see if that will help with oxygen requirement. Ask CM this week about LTACH given prolonged weaning. 03/18/20: Wean FiO2 as tolerated. Will ask renal about the possiblity of HIGH dose lasix at least once to see if it will help with volume removal. Antibodies not assessed. Need to check with CM about LTACH availability and qualificati ons. 03/17/20: Will ask RT to be more aggressive about weaning back down today. Still would check for antibodies to see if patient would qualify for plasma therapy. No additional IVF's unless absolutely necessary. Prognosis remains guarded. Continue steroids. May need to consider LTACH if weaning becomes more difficult and prolonged. 03/16/20: Continue to wean FiO2 for sats >88%. Still would consider checking antibodies to see if reactive and if patient would qualify for plasma therapy. 03/15/20: No new recs from today, please see below. 1. Wean FiO2 for sats >88% 2. Prone as tolerated during the day and sleep prone at night if possible 3. Assess antibody status to see if patient would benefit from convalescent plasma 4. Agree with steroids for 10 days total 5. Patient does have chronic renal disease, but if possible would not give IVF. Need to keep these patients as dry as possible. Await renal follow up and recs 6. No aerosol therapy Guarded prognosis Subjective Date of service: 03/28/20 Principal diagnosis: Covid-19 Interval history: Patient to be discharged to [facility] today. Objective Vital Signs - 12hr 03/27/20 03/27/20 03/28/20 22:00 23:20 00:20 Temperature 98.7 F Pulse Rate 66 68 66 Respiratory 18 Rate Blood Pressure 118/46 Blood Pressure 119/36 118/46 [Left] O2 Sat by Pulse 95 Oximetry 03/28/20 05:54 Temperature 97.9 F Pulse Rate 66 Respiratory 16 Rate Blood Pressure 139/57 Blood Pressure [Left] O2 Sat by Pulse 94 Oximetry Constitutional: no acute distress, alert Eyes: non-icteric ENT: oropharynx moist Neck: supple Effort: normal (mild tachypnea) Ascultation: Bilateral: rales Cardiovascular: regular rate and rhythm (no mrg) Gastrointestinal: normoactive bowel sounds, soft, non-tender, non-distended Integumentary: normal Extremities: no cyanosis, no edema, pink and warm Neurologic: normal mental status, non-focal exam, pupils equal and round Psychiatric: mood appropriate, affect normal CBC and BMP: 03/27/20 03:52 03/28/20 04:37 ABG, PT/INR, D-dimer: PT/INR, D-dimer PT 13.6 Sec. (12.2-14.9) 03/14/20 02:52 INR 1.05 (0.87-1.13) 03/14/20 02:52 D-Dimer 845.52 ng/mlDDU (0-234) H 03/14/20 02:52 Abnormal lab findings: Abnormal Labs 03/14/20 03/14/20 03/14/20 02:52 02:52 02:52 WBC RBC 3.40 L Hgb 9.4 L Hct 28.8 L RDW 15.6 H Lymph % (Auto) 6.2 L [place] % (Auto) Lymph # (Auto) 0.6 L [place] # (Auto) Seg Neutrophils % 87.6 H Seg Neutrophils # 8.2 H D-Dimer 845.52 H Sodium 131 L Potassium Chloride Carbon Dioxide 17 L BUN 44 H Creatinine 2.9 H Glucose 276 H POC Glucose Hemoglobin A1c Calcium 7.8 L Ferritin Lactate Dehydrogenase C-Reactive Protein NT-Pro-B Natriuret Pep Serum Total Protein Total Protein 5.5 L Albumin 2.8 L Bzbmx-6-Hkksutbou Elhig-0-Tpovvwllz PEP Interpretation Urine Creatinine Urine Total Protein Coronavirus (PCR) 03/14/20 03/14/20 03/14/20 02:52 02:52 05:40 WBC RBC 3.57 L Hgb 9.9 L Hct RDW 15.9 H Lymph % (Auto) 4.5 L [place] % (Auto) Lymph # (Auto) 0.5 L [place] # (Auto) Seg Neutrophils % 91.9 H Seg Neutrophils # 9.2 H D-Dimer Sodium Potassium Chloride Carbon Dioxide BUN Creatinine Glucose POC Glucose Hemoglobin A1c Calcium Ferritin 273.0 H Lactate Dehydrogenase 413 H C-Reactive Protein 10.30 H NT-Pro-B Natriuret Pep 54777 H Serum Total Protein Total Protein Albumin Ifekj-6-Gslsofalx Gqoml-3-Uclxxvvrx PEP Interpretation Urine Creatinine Urine Total Protein Coronavirus (PCR) 03/14/20 03/14/20 03/14/20 05:40 Unknown Unknown WBC RBC Hgb Hct RDW Lymph % (Auto) [place] % (Auto) Lymph # (Auto) [place] # (Auto) Seg Neutrophils % Seg Neutrophils # D-Dimer Sodium Potassium Chloride Carbon Dioxide BUN Creatinine Glucose POC Glucose Hemoglobin A1c Calcium Ferritin Lactate Dehydrogenase C-Reactive Protein 11.90 H NT-Pro-B Natriuret Pep Serum Total Protein Total Protein Albumin Anrhh-8-Uiyzbhtpm Rgefg-1-Yiguyzixg PEP Interpretation Urine Creatinine 89.5 H Urine Total Protein 826 H Coronavirus (PCR) Positive A 03/15/20 03/15/20 03/15/20 05:39 12:07 14:31 WBC RBC Hgb Hct RDW Lymph % (Auto) [place] % (Auto) Lymph # (Auto) [place] # (Auto) Seg Neutrophils % Seg Neutrophils # D-Dimer Sodium 134 L Potassium Chloride Carbon Dioxide 15 L BUN 64 H Creatinine 3.5 H Glucose 532 H* POC Glucose 504 H Hemoglobin A1c 8.0 H Calcium Ferritin Lactate Dehydrogenase C-Reactive Protein NT-Pro-B Natriuret Pep Serum Total Protein Total Protein Albumin Fdkwe-2-Dayiyhrwf Irhxh-4-Nhstqywxj PEP Interpretation Urine Creatinine Urine Total Protein Coronavirus (PCR) 03/15/20 03/15/20 03/16/20 15:25 21:15 04:15 WBC RBC Hgb Hct RDW Lymph % (Auto) [place] % (Auto) Lymph # (Auto) [place] # (Auto) Seg Neutrophils % Seg Neutrophils # D-Dimer Sodium Potassium 5.2 H Chloride 108.5 H Carbon Dioxide 15 L BUN 75 H Creatinine 3.6 H Glucose 305 H POC Glucose 528 H 438 H Hemoglobin A1c Calcium 8.2 L Ferritin Lactate Dehydrogenase C-Reactive Protein NT-Pro-B Natriuret Pep Serum Total Protein Total Protein Albumin Plxyl-5-Pkhpclbpu Lhbth-9-Mcvjcldyw PEP Interpretation Urine Creatinine Urine Total Protein Coronavirus (PCR) 03/16/20 03/16/20 03/16/20 08:05 11:29 17:25 WBC RBC Hgb Hct RDW Lymph % (Auto) [place] % (Auto) Lymph # (Auto) [place] # (Auto) Seg Neutrophils % Seg Neutrophils # D-Dimer Sodium Potassium Chloride Carbon Dioxide BUN Creatinine Glucose POC Glucose 262 H 255 H 268 H Hemoglobin A1c Calcium Ferritin Lactate Dehydrogenase C-Reactive Protein NT-Pro-B Natriuret Pep Serum Total Protein Total Protein Albumin Czrjr-6-Averbkbyy Cjagf-3-Sroqbzsee PEP Interpretation Urine Creatinine Urine Total Protein Coronavirus (PCR) 03/16/20 03/17/20 03/17/20 23:01 04:32 04:32 WBC RBC Hgb Hct RDW Lymph % (Auto) [place] % (Auto) Lymph # (Auto) [place] # (Auto) Seg Neutrophils % Seg Neutrophils # D-Dimer Sodium Potassium Chloride Carbon Dioxide 20 L BUN 79 H Creatinine 3.5 H Glucose 121 H POC Glucose 195 H Hemoglobin A1c Calcium Ferritin Lactate Dehydrogenase C-Reactive Protein NT-Pro-B Natriuret Pep Serum Total Protein 6.0 L Total Protein Albumin 2.7 L Acgwz-4-Epioeffqq 0.6 H Lenua-1-Qinzfhlle 1.1 H PEP Interpretation see below H Urine Creatinine Urine Total Protein Coronavirus (PCR) 03/17/20 03/17/20 03/17/20 07:44 12:33 16:12 WBC RBC Hgb Hct RDW Lymph % (Auto) [place] % (Auto) Lymph # (Auto) [place] # (Auto) Seg Neutrophils % Seg Neutrophils # D-Dimer Sodium Potassium Chloride Carbon Dioxide BUN Creatinine Glucose POC Glucose 129 H 258 H 213 H Hemoglobin A1c Calcium Ferritin Lactate Dehydrogenase C-Reactive Protein NT-Pro-B Natriuret Pep Serum Total Protein Total Protein Albumin Dgejv-6-Swuowxqon Rekpk-7-Quujtfysw PEP Interpretation Urine Creatinine Urine Total Protein Coronavirus (PCR) 03/17/20 03/18/20 03/18/20 22:04 04:24 07:56 WBC RBC Hgb Hct RDW Lymph % (Auto) [place] % (Auto) Lymph # (Auto) [place] # (Auto) Seg Neutrophils % Seg Neutrophils # D-Dimer Sodium Potassium Chloride Carbon Dioxide 20 L BUN 91 H Creatinine 3.4 H Glucose 150 H POC Glucose 218 H 118 H Hemoglobin A1c Calcium Ferritin Lactate Dehydrogenase C-Reactive Protein NT-Pro-B Natriuret Pep Serum Total Protein Total Protein Albumin Jhbjm-0-Hsjmhiomu Rxekq-0-Frofrcwwr PEP Interpretation Urine Creatinine Urine Total Protein Coronavirus (PCR) 03/18/20 03/18/20 03/18/20 12:09 16:51 21:59 WBC RBC Hgb Hct RDW Lymph % (Auto) [place] % (Auto) Lymph # (Auto) [place] # (Auto) Seg Neutrophils % Seg Neutrophils # D-Dimer Sodium Potassium Chloride Carbon Dioxide BUN Creatinine Glucose POC Glucose 254 H 240 H 269 H Hemoglobin A1c Calcium Ferritin Lactate Dehydrogenase C-Reactive Protein NT-Pro-B Natriuret Pep Serum Total Protein Total Protein Albumin Mfurw-4-Tdcgbijiq Souzm-9-Bkqaccvub PEP Interpretation Urine Creatinine Urine Total Protein Coronavirus (PCR) 03/19/20 03/19/20 03/19/20 04:34 11:45 16:32 WBC RBC Hgb Hct RDW Lymph % (Auto) [place] % (Auto) Lymph # (Auto) [place] # (Auto) Seg Neutrophils % Seg Neutrophils # D-Dimer Sodium Potassium Chloride Carbon Dioxide 20 L BUN 94 H Creatinine 3.4 H Glucose 132 H POC Glucose 179 H 267 H Hemoglobin A1c Calcium Ferritin Lactate Dehydrogenase C-Reactive Protein NT-Pro-B Natriuret Pep Serum Total Protein Total Protein Albumin Ddslx-1-Yzclittlc Jfqer-4-Gimvdkxhs PEP Interpretation Urine Creatinine Urine Total Protein Coronavirus (PCR) 03/19/20 03/20/20 03/20/20 21:44 04:29 07:48 WBC RBC Hgb Hct RDW Lymph % (Auto) [place] % (Auto) Lymph # (Auto) [place] # (Auto) Seg Neutrophils % Seg Neutrophils # D-Dimer Sodium 136 L Potassium Chloride Carbon Dioxide 15 L BUN 107 H Creatinine 3.5 H Glucose 206 H POC Glucose 352 H 125 H Hemoglobin A1c Calcium 8.3 L Ferritin Lactate Dehydrogenase C-Reactive Protein NT-Pro-B Natriuret Pep Serum Total Protein Total Protein Albumin Ydcok-1-Ytbcpnkug Sidhz-0-Qspnluzth PEP Interpretation Urine Creatinine Urine Total Protein Coronavirus (PCR) 03/20/20 03/20/20 03/20/20 11:16 17:25 21:00 WBC RBC Hgb Hct RDW Lymph % (Auto) [place] % (Auto) Lymph # (Auto) [place] # (Auto) Seg Neutrophils % Seg Neutrophils # D-Dimer Sodium Potassium Chloride Carbon Dioxide BUN Creatinine Glucose POC Glucose 144 H 157 H 163 H Hemoglobin A1c Calcium Ferritin Lactate Dehydrogenase C-Reactive Protein NT-Pro-B Natriuret Pep Serum Total Protein Total Protein Albumin Nnrlw-1-Tcduwtzii Bkcyk-9-Kmdabjucd PEP Interpretation Urine Creatinine Urine Total Protein Coronavirus (PCR) 03/21/20 03/21/20 03/21/20 04:17 09:34 12:43 WBC RBC Hgb Hct RDW Lymph % (Auto) [place] % (Auto) Lymph # (Auto) [place] # (Auto) Seg Neutrophils % Seg Neutrophils # D-Dimer Sodium 136 L Potassium Chloride Carbon Dioxide 18 L BUN 111 H Creatinine 3.5 H Glucose POC Glucose 219 H 209 H Hemoglobin A1c Calcium 8.3 L Ferritin Lactate Dehydrogenase C-Reactive Protein NT-Pro-B Natriuret Pep Serum Total Protein Total Protein Albumin Frpeb-0-Mbwakopwt Ptghg-1-Pnvmwvzax PEP Interpretation Urine Creatinine Urine Total Protein Coronavirus (PCR) 03/21/20 03/21/20 03/22/20 15:56 22:34 04:14 WBC RBC Hgb Hct RDW Lymph % (Auto) [place] % (Auto) Lymph # (Auto) [place] # (Auto) Seg Neutrophils % Seg Neutrophils # D-Dimer Sodium 135 L Potassium Chloride Carbon Dioxide 21 L BUN 107 H Creatinine 3.6 H Glucose POC Glucose 210 H 198 H Hemoglobin A1c Calcium 7.6 L Ferritin Lactate Dehydrogenase C-Reactive Protein NT-Pro-B Natriuret Pep Serum Total Protein Total Protein Albumin Qjtdp-1-Keafydbev Emgjx-7-Njvcdmszs PEP Interpretation Urine Creatinine Urine Total Protein Coronavirus (PCR) 03/22/20 03/22/20 03/22/20 07:28 08:40 11:01 WBC RBC Hgb Hct RDW Lymph % (Auto) [place] % (Auto) Lymph # (Auto) [place] # (Auto) Seg Neutrophils % Seg Neutrophils # D-Dimer Sodium Potassium Chloride Carbon Dioxide BUN Creatinine Glucose POC Glucose 58 L 122 H 160 H Hemoglobin A1c Calcium Ferritin Lactate Dehydrogenase C-Reactive Protein NT-Pro-B Natriuret Pep Serum Total Protein Total Protein Albumin Qfjbv-8-Ccxrrymxj Srkre-2-Ptbgkzfhc PEP Interpretation Urine Creatinine Urine Total Protein Coronavirus (PCR) 03/22/20 03/22/20 03/23/20 17:10 21:03 04:26 WBC RBC Hgb Hct RDW Lymph % (Auto) [place] % (Auto) Lymph # (Auto) [place] # (Auto) Seg Neutrophils % Seg Neutrophils # D-Dimer Sodium 135 L Potassium Chloride Carbon Dioxide 18 L BUN 121 H Creatinine 3.6 H Glucose 173 H POC Glucose 139 H 166 H Hemoglobin A1c Calcium 8.1 L Ferritin Lactate Dehydrogenase C-Reactive Protein NT-Pro-B Natriuret Pep Serum Total Protein Total Protein Albumin Qefsx-1-Cmzxvdsex Ynxxy-3-Wotqrmpnq PEP Interpretation Urine Creatinine Urine Total Protein Coronavirus (PCR) 03/23/20 03/23/20 03/23/20 07:52 11:58 16:35 WBC RBC Hgb Hct RDW Lymph % (Auto) [place] % (Auto) Lymph # (Auto) [place] # (Auto) Seg Neutrophils % Seg Neutrophils # D-Dimer Sodium Potassium Chloride Carbon Dioxide BUN Creatinine Glucose POC Glucose 138 H 252 H 272 H Hemoglobin A1c Calcium Ferritin Lactate Dehydrogenase C-Reactive Protein NT-Pro-B Natriuret Pep Serum Total Protein Total Protein Albumin Peceh-0-Ueondxjwp Pofrr-6-Tnckesotq PEP Interpretation Urine Creatinine Urine Total Protein Coronavirus (PCR) 03/23/20 03/24/20 03/24/20 21:16 04:23 11:16 WBC RBC Hgb Hct RDW Lymph % (Auto) [place] % (Auto) Lymph # (Auto) [place] # (Auto) Seg Neutrophils % Seg Neutrophils # D-Dimer Sodium 135 L Potassium Chloride Carbon Dioxide 19 L BUN 125 H Creatinine 3.8 H Glucose 166 H POC Glucose 311 H 168 H Hemoglobin A1c Calcium 8.3 L Ferritin Lactate Dehydrogenase C-Reactive Protein NT-Pro-B Natriuret Pep Serum Total Protein Total Protein Albumin Vpmfl-9-Lwdjscxep Cuqag-0-Dfmiilfdp PEP Interpretation Urine Creatinine Urine Total Protein Coronavirus (PCR) 03/24/20 03/24/20 03/25/20 16:22 21:28 04:16 WBC RBC Hgb Hct RDW Lymph % (Auto) [place] % (Auto) Lymph # (Auto) [place] # (Auto) Seg Neutrophils % Seg Neutrophils # D-Dimer Sodium Potassium Chloride Carbon Dioxide 18 L BUN 128 H Creatinine 3.9 H Glucose POC Glucose 127 H 196 H Hemoglobin A1c Calcium 8.3 L Ferritin Lactate Dehydrogenase C-Reactive Protein NT-Pro-B Natriuret Pep Serum Total Protein Total Protein Albumin Vmufh-5-Eksmnkxgf Ktrcy-7-Sogrvnsca PEP Interpretation Urine Creatinine Urine Total Protein Coronavirus (PCR) 03/25/20 03/25/20 03/25/20 11:14 16:42 22:07 WBC RBC Hgb Hct RDW Lymph % (Auto) [place] % (Auto) Lymph # (Auto) [place] # (Auto) Seg Neutrophils % Seg Neutrophils # D-Dimer Sodium Potassium Chloride Carbon Dioxide BUN Creatinine Glucose POC Glucose 170 H 155 H 126 H Hemoglobin A1c Calcium Ferritin Lactate Dehydrogenase C-Reactive Protein NT-Pro-B Natriuret Pep Serum Total Protein Total Protein Albumin Otxjl-7-Muiyodtsm Wlqwc-0-Hpwkvnmek PEP Interpretation Urine Creatinine Urine Total Protein Coronavirus (PCR) 03/26/20 03/26/20 03/26/20 04:57 07:51 11:42 WBC RBC Hgb Hct RDW Lymph % (Auto) [place] % (Auto) Lymph # (Auto) [place] # (Auto) Seg Neutrophils % Seg Neutrophils # D-Dimer Sodium Potassium Chloride Carbon Dioxide 21 L BUN 127 H Creatinine 4.0 H Glucose 126 H POC Glucose 135 H 257 H Hemoglobin A1c Calcium 8.1 L Ferritin Lactate Dehydrogenase C-Reactive Protein NT-Pro-B Natriuret Pep Serum Total Protein Total Protein Albumin Cpuhi-5-Ympardego Quguy-4-Lmzvytkyh PEP Interpretation Urine Creatinine Urine Total Protein Coronavirus (PCR) 03/26/20 03/26/20 03/27/20 16:31 21:31 03:52 WBC RBC Hgb Hct RDW Lymph % (Auto) [place] % (Auto) Lymph # (Auto) [place] # (Auto) Seg Neutrophils % Seg Neutrophils # D-Dimer Sodium 136 L Potassium Chloride Carbon Dioxide BUN 105 H Creatinine 4.0 H Glucose 123 H POC Glucose 234 H 176 H Hemoglobin A1c Calcium 8.3 L Ferritin Lactate Dehydrogenase C-Reactive Protein NT-Pro-B Natriuret Pep Serum Total Protein Total Protein Albumin Obdnh-4-Imyplntly Erfka-5-Mymiyfaxi PEP Interpretation Urine Creatinine Urine Total Protein Coronavirus (PCR) 03/27/20 03/27/20 03/27/20 03:52 07:51 11:04 WBC 11.9 H RBC 3.27 L Hgb 9.0 L Hct 28.1 L RDW 16.6 H Lymph % (Auto) 4.6 L [place] % (Auto) 7.6 H Lymph # (Auto) 0.5 L [place] # (Auto) 0.9 H Seg Neutrophils % 84.5 H Seg Neutrophils # 10.0 H D-Dimer Sodium Potassium Chloride Carbon Dioxide BUN Creatinine Glucose POC Glucose 130 H 189 H Hemoglobin A1c Calcium Ferritin Lactate Dehydrogenase C-Reactive Protein NT-Pro-B Natriuret Pep Serum Total Protein Total Protein Albumin Ikyzr-4-Xabupxzma Hgxum-2-Bkicvujuo PEP Interpretation Urine Creatinine Urine Total Protein Coronavirus (PCR) 03/27/20 03/27/20 03/28/20 16:58 21:46 04:37 WBC RBC Hgb Hct RDW Lymph % (Auto) [place] % (Auto) Lymph # (Auto) [place] # (Auto) Seg Neutrophils % Seg Neutrophils # D-Dimer Sodium Potassium Chloride Carbon Dioxide 20 L BUN 101 H Creatinine 4.0 H Glucose 135 H POC Glucose 157 H 199 H Hemoglobin A1c Calcium 8.1 L Ferritin Lactate Dehydrogenase C-Reactive Protein NT-Pro-B Natriuret Pep Serum Total Protein Total Protein Albumin Fcknw-2-Swaprzptc Mhrpi-8-Hemkjpqdj PEP Interpretation Urine Creatinine Urine Total Protein Coronavirus (PCR)
--- NOTE | 2020-03-28 08:42 | Progress Note ---
Assessment and Plan 1. 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 Renal US negative for hydro. Nephrotic range proteinuria. ANGIE, ANCA, Complements and GBM Ab negative. SPEP negative for M-spike. Monitor renal function. I/O not reported. Creatinine leveled off. Renal prognosis is guarded. Avoid nephrotoxic agents. Meds dosage based on GFR. Monitor for KEG VARNISHER needs. No acute indication for KEG VARNISHER today. Also spoke to her daughter (03/27) over the phone and and discussed the treatment options if the renal function declines, possibly hemodialysis. She voiced understanding. 2. FEN: Hyperkalemia, improved. Metabolic acidosis, PO Sodium bicarbonate. Hyponatremia, improved, monitor. Suspected volume overload, IV Lasix. Goal is to keep euvolemic. Monitor lytes. 3. Acute respiratory failure with hypoxia: Due to COVID-19 pneumonia. Patient currently on NC O2. DuoNeb as needed. Followed by Pulmonary. 4. COVID-19 virus infection: S/p Dexamethasone. Patient is not a candidate for Remdesivir due to low GFR. Followed by ID. Follow the inflammatory markers. 5. Diabetes mellitus type 2: Follow blood glucose with QACHS with SSI. Consistent carb diet. 6. Hypertension: Monitor BP. 7. Anemia, POA: Monitor. F/u with me in 1-2 weeks. Subjective: Patient was seen and examined at the bedside. Doing ok. Examination: General appearance: well-developed, well-nourished, appears stated age, obese, no distress, NC O2 HEENT: ATNC, ARUNA Neck: supple Respiratory: rales heard Cardiology: regular, S1S2, no murmur Gastrointestinal: normoactive bowel sounds, no tenderness, not distended, obese Integumentary: no rash, warm and dry Neurologic: conversing, able to move extremities Ext: no edema Subjective Date of service: 03/28/20 Principal diagnosis: Covid-19 Objective - Vital Signs Vital signs: Vital Signs - 12hr 03/27/20 03/27/20 03/28/20 22:00 23:20 00:20 Temperature 98.7 F Pulse Rate 66 68 66 Respiratory 18 Rate Blood Pressure 118/46 Blood Pressure 119/36 118/46 [Left] O2 Sat by Pulse 95 Oximetry 03/28/20 03/28/20 05:54 08:37 Temperature 97.9 F Pulse Rate 66 Respiratory 16 Rate Blood Pressure 139/57 Blood Pressure [Left] O2 Sat by Pulse 94 92 Oximetry - Lab 03/27/20 03:52 03/28/20 04:37 Most recent lab results Calcium 8.1 mg/dL (8.4-10.2) L 03/28/20 04:37 Phosphorus 3.20 mg/dL (2.5-4.5) 03/15/20 05:39 Magnesium 2.00 mg/dL (1.7-2.3) 03/15/20 05:39 Urine Creatinine 89.5 mg/dL (0.1-20.0) H 03/14/20 Unknown Urine Total Protein 826 mg/dL (5-11.8) H 03/14/20 Unknown Medications & Allergies - Medications Allergies/Adverse Reactions: Allergies No Known Allergies Allergy (Verified 07/31/18 07:06) Home Medications: Home Medications Medication Instructions Recorded Confirmed Last Taken Type Albuterol Mdi (or & Nicu Only) 2 puff IH QID PRN #1 inhalation 08/07/18 03/14/20 Unknown Rx [ProAir HFA Inhaler] Sucralfate [Carafate] 1 gm PO ACHS #30 tablet 08/07/18 03/14/20 03/13/20 Rx Insulin Regular, Human [HumuLIN R] 0 unit SQ AC #1 vial 08/11/18 03/14/20 Unknown Rx Labetalol HCl [Labetalol 300mg TAB] 300 mg PO BID #60 tablet 11/11/19 03/14/20 03/14/20 Rx Furosemide [Lasix TAB] 80 mg PO DAILY #14 tablet 03/27/20 Unknown Rx Insulin Glargine [Lantus VIAL] 15 units SUB-Q QAM #1 vial 03/27/20 Unknown Rx amLODIPine 10 mg PO QDAY #30 tablet 03/27/20 Unknown Rx Active Medications: Generic Name Dose Route Start Last Admin Trade Name Freq PRN Reason Stop Dose Admin Acetaminophen 650 mg 03/25/20 15:57 03/25/20 16:14 Acetaminophen 325 Mg Tab PO 650 mg Q4H PRN Administration Pain, Mild (1-3) Albuterol 2 puff 03/14/20 04:19 Albuterol 8.5 Gm Mdi Inhalation IH QID PRN Shortness Of Breath Amlodipine Besylate 10 mg 03/16/20 10:00 03/27/20 11:26 Amlodipine 10 Mg Tab PO 10 mg QDAY TERA Administration Ascorbic Acid 1,000 mg 03/15/20 10:00 03/27/20 21:56 Ascorbic Acid 500 Mg Tab PO 1,000 mg BID TERA Administration Cholecalciferol 5,000 unit 03/15/20 10:00 03/27/20 11:26 Cholecalciferol (Vit D3) 5,000 Unit Tab PO 5,000 unit DAILY TERA Administration Furosemide 80 mg 03/23/20 10:00 03/27/20 11:27 Furosemide 40 Mg/4 Ml Inj IV 80 mg QDAY TERA Administration Heparin Sodium (Porcine) 5,000 unit 03/14/20 06:00 03/28/20 05:59 Heparin 5,000 Unit/1 Ml Vial SUB-Q 5,000 unit Q8HR TERA Administration Hydralazine HCl 5 mg 03/16/20 09:43 03/17/20 06:09 Hydralazine 20 Mg/1 Ml Inj IV 5 mg Q4HR PRN Administration Hypertension Insulin Glargine 15 units 03/22/20 10:00 03/27/20 11:28 Insulin Glargine 100 Units/Ml SUB-Q 15 units QAM TERA Administration Insulin Human Regular 0 unit 03/15/20 11:30 03/27/20 21:48 Insulin Regular, Human 100 Unit/Ml 3ml Vial SUB-Q 3 unit ACHS TERA Administration Protocol Insulin Human Regular 8 unit 03/21/20 16:30 03/27/20 17:41 Insulin Regular, Human 100 Unit/Ml 3ml Vial SUB-Q Not Given AC TERA Labetalol HCl 300 mg 03/14/20 10:00 03/27/20 22:00 Labetalol 200 Mg Tab PO Not Given BID TERA Ondansetron HCl 4 mg 03/26/20 13:15 03/26/20 14:01 Ondansetron 4 Mg/2 Ml Inj IV 4 mg Q8H PRN Administration N/V unrelieved by Raymond Pantoprazole Sodium 40 mg 03/14/20 07:30 03/27/20 09:06 Pantoprazole 40 Mg Tab PO 40 mg QDAC TERA Administration Sucralfate 1 gm 03/14/20 07:30 03/27/20 21:45 Sucralfate 1 Gm Tab PO 1 gm ACHS TERA Administration Zinc Sulfate 220 mg 03/15/20 10:00 03/27/20 21:46 Zinc Sulfate 220 Mg Cap PO 220 mg BID TERA Administration
[2020-03-28] MEDS: SUCRALFATE 1 GM TAB PO SCH (08:47)
[2020-03-28] MEDS: INSULIN REGULAR, HUMAN 100 UNIT/ML 3ML VIAL SUB-Q SCH ×2 (08:47→09:08)
[2020-03-28] MEDS: PANTOPRAZOLE 40 MG TAB PO SCH (08:48)
[2020-03-28] MEDS: FUROSEMIDE 40 MG/4 ML INJ IV SCH (09:00)
[2020-03-28] MEDS: amLODIPine 10 MG TAB PO SCH (09:00)
[2020-03-28] MEDS: CHOLECALCIFEROL (VIT D3) 5,000 UNIT TAB PO SCH (09:01)
[2020-03-28] MEDS: ASCORBIC ACID 500 MG TAB PO SCH (09:01)
[2020-03-28] MEDS: ZINC SULFATE 220 MG CAP PO SCH (09:06)
[2020-03-28] MEDS: INSULIN GLARGINE 100 UNITS/ML SUB-Q SCH (09:08)
--- NOTE | 2020-03-28 10:46 | Progress Note ---
Assessment and Plan 75-year-old female past medical history hypertension, CKD, diabetes admitted with COVID-19 pneumonia: -- Acute renal failure superimposed on chronic kidney disease Likely due to vasomotor nephropathy and COVID Avoid nephrotoxic drug. s/p gentle iv fluid but now d/aron We consulted nephrology for further evaluation and treatment. Recheck CBC BMP in the morning. -- Acute respiratory failure with hypoxia Due to COVID-19 pneumonia DuoNeb by nebulizer every 4 hours as needed. completed Decadron 6 mg IV daily for 10 days. Not a candidate for remdesivir for CKD Reconsult pulmonary as well as infectious disease for evaluation and treatment. We follow the inflammatory markers. As needed IV Lasix to prevent pulmonary edema --Diabetes mellitus type 2 Follow blood glucose with QACHS with SSI Consistent carb diet, added long-acting insulin -- COVID-19 virus infection s/p 10 days dexamethasone, patient is not a candidate for remdesivir due to declining renal function DuoNeb by nebulizer every 4 hours and as needed. Reconsulted pulmonary as well as infectious disease for evaluation and treatment. We will cont to follow the inflammatory markers. --Morbid obesity, risks for poor outcome with COVID-19 Weight reduction diet and exercise when patient clinically more stable as outpatient --DVT prophylaxis, Heparin 5000 units subcu every 8 hours Daily course: 03/14: Covid test is positive, started on dexamethasone. Will DC empiric antibiotics as procalcitonin level is normal. Follow ID recommendation, follow inflammatory markers. Patient is not a candidate for remdesivir due to dec lining renal function. Follow nephrology recommendation, monitor BMP 03/15; blood glucose greater than 400 today, started on long-acting and premeal insulin along with sliding scale. patient WAS ON 40L [place] THIS AM, now on 12 L high flow O2 today, will follow pulmonary recommendation. Continue Decadron, follow inflammatory markers, follow BMP, check A1c 03/16: Patient today on 8L O2, cont to follow inflammatory markers. Continue Decadron, minimize iv fluid trnsfusion. follow bmp. 03/17; patient is on 12 L of oxygen, ID is following the patient. Continue with Decadron. Nephrology is following. 03/18; patient is on 13 L of oxygen, ID and nephrology is following the patient. Patient is on Decadron, not a candidate for remdesivir because of her kidney function. Creatinine is trending down slightly. 03/19; patient is on 14 L of oxygen. ID, pulmonary and nephrology consult appreciated. Pulmonary recommends evaluation for LTAC because patient has prolonged weaning of high flow oxygen. 03/20: patient on 12L O2 today, cont wean off O2 03/21: patient remain on 10L O2. completed dexamethasone. wean off O2 as tolerated 03/22: cont to wean off O2, remains on high flow, sent referral for LTAC - pending 03/23: remains on 8L O2, pending LTAC, cont supportive care 03/24: Patient accepted to [facility], waiting on insurance authorization. Remains on supplemental O2, continue to provide supportive care, monitor BMP daily. 03/25: patient on 4L O2 today. need home O2 on discharge, consult CM. assess ambulatory O2 requirement. renal function cont to decline, cont to monitor 03/26: patient remains on 4L o2. will arrange home O2. wait for renal function to stabilize, monitor BMP 03/27: Patient remains on 4L and pulmonary cleared for discharge to home. Also discussed with nephrology and patient will be followed up as an outpatient for possible hemodialysis in the near future. Patient is clinically stable to go home with home O2. also accepted to LTAC and can accept her tomorrow. Subjective Date of service: 03/27/20 Principal diagnosis: Covid-19 Interval history: Patient seen and examined. Medical records and medication list reviewed. No acute event overnight noted by the RN. Patient currently on 4 L nasal cannula Patient is tolerating diet. Discussed plan of care at bedside with patient with a mobile tonio welfare director. Objective - Exam Narrative Exam: Limited physical exam due to COVID-19 pandemic to minimize transmission of the disease. Vital reviewed and stable. GENERAL: well-developed morbidly obese elderly female on bed appeared to be in mild discomfort. HEENT: Normocephalic. Atraumatic. NECK: Supple. CHEST/LUNGS: breathing slightly labored HEART/CARDIOVASCULAR: Heart rate stable on telemetry ABDOMEN: Obese SKIN: There is no rash NEURO: No focal motor deficit. Follows command. MUSCULOSKELETAL: No joint effusion EXTRIMITY: No swelling, no cyanosis or clubbing. PSYCH: Cooperative. - Constitutional Vitals: Vital Signs - 12hr 03/27/20 03/28/20 03/28/20 23:20 00:20 05:54 Temperature 98.7 F 97.9 F Pulse Rate 68 66 66 Respiratory 18 16 Rate Blood Pressure 139/57 Blood Pressure 119/36 118/46 [Left] O2 Sat by Pulse 95 94 Oximetry 03/28/20 08:37 Temperature Pulse Rate Respiratory Rate Blood Pressure Blood Pressure [Left] O2 Sat by Pulse 92 Oximetry - Labs CBC & Chem 7: 03/27/20 03:52 03/28/20 04:37 Labs: Abnormal lab results 03/27/20 03/27/20 03/27/20 Range/Units 11:04 16:58 21:46 Carbon Dioxide (22-30) mmol/L BUN (7-17) mg/dL Creatinine (0.6-1.2) mg/dL Glucose (65-100) mg/dL POC Glucose 189 H 157 H 199 H (70-105) mg/dL Calcium (8.4-10.2) mg/dL 03/28/20 Range/Units 04:37 Carbon Dioxide 20 L (22-30) mmol/L BUN 101 H (7-17) mg/dL Creatinine 4.0 H (0.6-1.2) mg/dL Glucose 135 H (65-100) mg/dL POC Glucose (70-105) mg/dL Calcium 8.1 L (8.4-10.2) mg/dL HEART Score - HEART Score Troponin: Troponin T 0.013 ng/mL (0.00-0.029) 03/14/20 02:52
[2020-03-28 17:29] VITALS: BP 131/49
== END 2020-03-28 11:15 | DRG 177 ==
LOC: ED 01:39 → 3A 04:07 → OBSVTOIN 10:10
PROVIDERS: ADMIT Hospitalist; ATTEND Internal Medicine
DX: U07.1 COVID-19 (principal); J96.01 Acute respiratory failure with hypoxia; N17.0 Acute kidney failure with tubular necrosis; J12.82 Pneumonia due to coronavirus disease 2019; I13.0 Hypertensive heart and chronic kidney disease with heart failure and stage 1 through stage 4 chronic kidney disease, or unspecified chronic kidney disease; E87.1 Hypo-osmolality and hyponatremia; K21.9 Gastro-esophageal reflux disease without esophagitis; I50.9 Heart failure, unspecified; E11.22 Type 2 diabetes mellitus with diabetic chronic kidney disease; F10.10 Alcohol abuse, uncomplicated; D64.9 Anemia, unspecified; N18.30 Chronic kidney disease, stage 3 unspecified; E87.5 Hyperkalemia; Y90.9 Presence of alcohol in blood, level not specified; E66.01 Morbid (severe) obesity due to excess calories; Z79.899 Other long term (current) drug therapy; Z90.710 Acquired absence of both cervix and uterus; Z79.51 Long term (current) use of inhaled steroids; Z79.84 Long term (current) use of oral hypoglycemic drugs; Z68.39 Body mass index [BMI] 39.0-39.9, adult
CPT/HCPCS: 36415; 71045; 76770; 80048; 80053; 81001; 82140; 82570; 82728; 82962; 83036; 83520; 83615; 83735; 83880; 83930; 84100; 84145; 84156; 84165; 84484; 85025; 85379; 85610; 85730; 86021; 86038; 86140; 86160; 87040; 93005; 94640; 94760; 96365; G0378; J0360; J0696; J1100; J1644; J1815; J1940; J2405; J7030; J8540; U0003

== ENCOUNTER 2020-08-25 10:58 | Inpatient (IN) | payer MEDICARE ==
--- NOTE | 2020-08-25 11:04 | Emergency Department Report ---
ED CPR HPI - General Stated Complaint: CARDIAC Time Seen by Provider: 08/25/20 10:59 - History of Present Illness Initial Comments: Chief complaint: Cardiac arrest This is a 75-year-old female with history of diabetes mellitus and pneumonia who presents in cardiac arrest. Patient was last known well at 0940 am according to family's report to EMS. Patient was found unresponsive 0950. EMS discovered patient at 0958 apneic, unresponsive. Patient was pulseless. Asystole was the intial rhythm. Patient received chest compressions for 15 minutes. Patient received two doses of epinephrine. Patient also received naloxone. Patient had slightly elevated blood sugar per EMS. Blood sugar was in the 200s range. Patient was intubated in the field was agonal ETT. After 15 minutes of ACLS, ROSC achieved. History obtained from EMR additional medical history includes hypertension, CKD, GERD, CHF, hypertension According to electronic medical record patient was admitted to this hospital for COVID-19 pneumonia in March of this year. Patient required high flow oxygen. After prolonged hospitalization, patient was discharged home with oxygen via nasal cannula. MD Complaint: found unresponsive, stopped breathing Place: home Bystander CPR Performed: No (No compressions were performed by family) Shock Advised: No Downtime Before ACLS Arrival (mins): 10 Initial Findings in the Field: unresponsive, other rhythm (Asystole) ROSC in the Field: Yes Associated Injuries: No Treatments Prior to Arrival: intubation, epinephrine mgs # (2 doses of epinephrine), other (1 dose of Narcan) - Related Data Previous Rx's Medication Instructions Recorded Last Taken Type Albuterol Mdi (or & Nicu Only) 2 puff IH QID PRN #1 inhalation 08/07/18 Unknown Rx [ProAir HFA Inhaler] Sucralfate [Carafate] 1 gm PO ACHS #30 tablet 08/07/18 03/13/20 Rx Insulin Regular, Human [HumuLIN R] 0 unit SQ AC #1 vial 08/11/18 Unknown Rx Labetalol HCl [Labetalol 300mg TAB] 300 mg PO BID #60 tablet 11/11/19 03/14/20 Rx Furosemide [Lasix TAB] 80 mg PO DAILY #14 tablet 03/27/20 Unknown Rx Insulin Glargine [Lantus VIAL] 15 units SUB-Q QAM #1 vial 03/27/20 Unknown Rx amLODIPine 10 mg PO QDAY #30 tablet 03/27/20 Unknown Rx Allergies Allergy/AdvReac Type Severity Reaction Status Date / Time No Known Allergies Allergy Verified 07/31/18 07:06 ED Review of Systems ROS: Stated complaint: CARDIAC Other details as noted in HPI Comment: Unobtainable due to pts medical conditions (Lifeless unresponsive status post cardiac arrest) ED Past Medical Hx - Past Medical History Previous Medical History?: Yes Hx Hypertension: Yes Hx Congestive Heart Failure: Yes Hx Diabetes: Yes Hx GERD: Yes Hx Liver Disease: No Hx Renal Disease: No Additional medical history: Home O2 3-4 L - Surgical History Past Surgical History?: Yes Additional Surgical History: hysterectomy - Social History Smoking Status: Never Smoker Substance Use Type: None - Medications Home Medications: Home Medications Medication Instructions Recorded Confirmed Last Taken Type Albuterol Mdi (or & Nicu Only) 2 puff IH QID PRN #1 inhalation 08/07/18 03/14/20 Unknown Rx [ProAir HFA Inhaler] Sucralfate [Carafate] 1 gm PO ACHS #30 tablet 08/07/18 03/14/20 03/13/20 Rx Insulin Regular, Human [HumuLIN R] 0 unit SQ AC #1 vial 08/11/18 03/14/20 Unknown Rx Labetalol HCl [Labetalol 300mg TAB] 300 mg PO BID #60 tablet 11/11/19 03/14/20 03/14/20 Rx Furosemide [Lasix TAB] 80 mg PO DAILY #14 tablet 03/27/20 Unknown Rx Insulin Glargine [Lantus VIAL] 15 units SUB-Q QAM #1 vial 03/27/20 Unknown Rx amLODIPine 10 mg PO QDAY #30 tablet 03/27/20 Unknown Rx ED Physical Exam - General Limitations: Other (Cardiac arrest lifeless) General appearance: other (Pale lifeless no spontaneous movement eyes open) - Head Head exam: Present: atraumatic, normocephalic - Eye Eye exam: Present: other (Eyes open, dried corneas pupils fixed dilated ) - ENT ENT exam: Present: other (Pale mucosa ETT in place) - Neck Neck exam: Present: normal inspection - Respiratory Respiratory exam: Present: decreased breath sounds. Absent: wheezes, rales, rhonchi - Cardiovascular Cardiovascular Exam: Present: normal rhythm, bradycardia, systolic murmur. 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) - Back Exam Back exam: Present: normal inspection - Neurological Exam Neurological exam: Present: other (Lifeless nonresponsive no spontaneous movement) - Psychiatric Psychiatric exam: Present: other (Lifeless nonresponsive) - Skin Skin exam: Present: dry, intact, pallor ED Course Vital Signs 08/25/20 08/25/20 08/25/20 10:42 10:46 10:50 Temperature Pulse Rate 53 L 53 L 53 L Respiratory 16 8 L 9 L Rate Blood Pressure 159/69 159/69 O2 Sat by Pulse 95 99 100 Oximetry 08/25/20 08/25/20 08/25/20 10:56 10:58 11:00 Temperature Pulse Rate 52 L 52 L 53 L Respiratory 16 11 L Rate Blood Pressure 159/69 165/78 157/63 O2 Sat by Pulse 100 100 100 Oximetry 08/25/20 08/25/20 08/25/20 11:06 11:09 11:10 Temperature 97.5 F L Pulse Rate 52 L 48 L 54 L Respiratory 14 18 20 Rate Blood Pressure 168/73 157/62 168/73 O2 Sat by Pulse 100 100 100 Oximetry 08/25/20 08/25/20 08/25/20 11:16 11:20 11:21 Temperature Pulse Rate 50 L 48 L Respiratory 17 18 18 Rate Blood Pressure 168/73 157/62 O2 Sat by Pulse 100 100 100 Oximetry 08/25/20 08/25/20 08/25/20 11:25 11:31 11:35 Temperature Pulse Rate 46 L 46 L 46 L Respiratory 18 18 18 Rate Blood Pressure 157/62 163/70 163/70 O2 Sat by Pulse 100 100 100 Oximetry 08/25/20 08/25/20 08/25/20 11:41 11:45 11:51 Temperature Pulse Rate 47 L 47 L 46 L Respiratory 15 16 5 L Rate Blood Pressure 141/60 141/60 153/67 O2 Sat by Pulse 100 100 100 Oximetry 08/25/20 08/25/20 08/25/20 11:55 12:01 12:05 Temperature Pulse Rate 47 L 57 L 56 L Respiratory 5 L 18 18 Rate Blood Pressure 153/67 163/67 163/67 O2 Sat by Pulse 100 100 100 Oximetry 08/25/20 08/25/20 08/25/20 12:11 12:15 12:21 Temperature Pulse Rate 56 L 56 L 56 L Respiratory 15 18 18 Rate Blood Pressure 181/75 181/75 190/79 O2 Sat by Pulse 100 100 100 Oximetry 08/25/20 08/25/20 08/25/20 12:25 12:31 12:35 Temperature Pulse Rate 55 L 55 L 54 L Respiratory 18 18 18 Rate Blood Pressure 190/79 195/79 195/79 O2 Sat by Pulse 100 100 100 Oximetry 08/25/20 08/25/20 08/25/20 12:41 12:45 12:51 Temperature Pulse Rate 53 L 53 L 52 L Respiratory 18 18 18 Rate Blood Pressure 197/80 197/80 200/83 O2 Sat by Pulse 100 100 100 Oximetry 08/25/20 08/25/20 08/25/20 12:55 13:00 13:33 Temperature Pulse Rate 53 L 53 L 61 Respiratory 18 18 18 Rate Blood Pressure 197/80 197/80 204/84 O2 Sat by Pulse 100 100 100 Oximetry 08/25/20 08/25/20 08/25/20 13:35 13:41 13:45 Temperature Pulse Rate 61 61 61 Respiratory 18 18 18 Rate Blood Pressure 204/84 197/82 197/82 O2 Sat by Pulse 100 100 100 Oximetry 08/25/20 08/25/20 08/25/20 13:51 13:55 14:01 Temperature Pulse Rate 61 60 66 Respiratory 18 18 18 Rate Blood Pressure 206/83 206/83 202/79 O2 Sat by Pulse 100 100 98 Oximetry 08/25/20 08/25/20 14:05 14:11 Temperature Pulse Rate 69 68 Respiratory 18 18 Rate Blood Pressure 202/79 195/80 O2 Sat by Pulse 98 98 Oximetry ED Medical Decision Making - Lab Data Result diagrams: 08/25/20 11:23 08/25/20 11:23 - EKG Data -: EKG Interpreted by Ct EKG shows normal: sinus rhythm, axis Rate: bradycardia - EKG Data Interpretation: nonspecific ST-T wave dee 08/25/20 12:13 EKG obtained 1207 EKG interpreted by ga Sinus bradycardia rate 55 bpm normal axis normal QTC no ST elevation nonspecific T wave pattern - Radiology Data Radiology results: report reviewed Patient Name: MARI YOUNG Gender: Female Date of : 1945 Referring Provider: GUADALUPE BOJORQUEZ Organization: [facility] Accession Number: [id number] Requested Date: August 25, 2020 11:06 Report Status: Final Requested Procedure: 1 Procedure Description: CT abdomen pelvis w con Modality: CT Findings Reporting MD: Johan Sosa Dictation Time: August 25, 2020 13:15 Events Administrative Assistant: Not available Parking Meter Attendant Date: CT ABDOMEN AND PELVIS WITH IV CONTRAST INDICATION: unresponsive cardiac arrest 100 ML OMNI 350 . COMPARISON: CT 07/31/2018. TECHNIQUE: All CT scans at this facility use dose modulation, automated exposure control, iterative reconstruction or weight based dosing, when appropriate, to reduce radiation dose to as low as reasonably achievable. FINDINGS: Skeletal System: No acute abnormality. ABDOMEN: Liver: No significant abnormality. Gallbladder: Removed. Bile Ducts: No significant abnormality. Pancreas: No significant abnormality. Spleen: No significant abnormality. Adrenals: No significant abnormality. Right Kidney: No significant abnormality. There is a tiny exophytic lower pole cyst. Left Kidney: No significant abnormality. There is a simple cyst in the medial cortex of the upper pole. Upper GI tract: Esophagogastric tube is in satisfactory position. Lymph Nodes: No significant adenopathy. Aorta: No significant abnormality. Additional Findings: There is mild anasarca. PELVIS: Colon: No acute abnormality. Diverticulosis is noted. Urinary Bladder and Distal Ureters: There is a Christina catheter, gas in the lumen is likely related to the catheter placement. Appendix: No significant abnormality. Lymph Nodes: No significant adenopathy. Additional Findings: There is trace free fluid in the pelvis. IMPRESSION: 1. No acute process in the abdomen or pelvis. 2. Incidental findings, as above. 3. Chest findings are reported separately. [facility] [address], [address] [place] [address] P [phone] F [phone] [facility] - Report exported on Aug 25, 2020 13:48:11 -[id number] - Page 2 of 2 Signer Name: Johan Sosa MD Signed: 08/25/2020 1:15 PM Workstation Name: [id number] Patient Name: MARI YOUNG Gender: Female Date of : 1945 Referring Provider: GUADALUPE BOJORQUEZ Organization: [facility] Accession Number: [id number] Requested Date: August 25, 2020 11:06 Report Status: Final Requested Procedure: 1 Procedure Description: CT abdomen pelvis w con Modality: CT Findings Reporting MD: Johan Sosa Dictation Time: August 25, 2020 13:15 Events Administrative Assistant: Not available Parking Meter Attendant Date: CT ABDOMEN AND PELVIS WITH IV CONTRAST INDICATION: unresponsive cardiac arrest 100 ML OMNI 350 . COMPARISON: CT 07/31/2018. TECHNIQUE: All CT scans at this facility use dose modulation, automated exposure control, iterative reconstruction or weight based dosing, when appropriate, to reduce radiation dose to as low as reasonably achievable. FINDINGS: Skeletal System: No acute abnormality. ABDOMEN: Liver: No significant abnormality. Gallbladder: Removed. Bile Ducts: No significant abnormality. Pancreas: No significant abnormality. Spleen: No significant abnormality. Adrenals: No significant abnormality. Right Kidney: No significant abnormality. There is a tiny exophytic lower pole cyst. Left Kidney: No significant abnormality. There is a simple cyst in the medial cortex of the upper pole. Upper GI tract: Esophagogastric tube is in satisfactory position. Lymph Nodes: No significant adenopathy. Aorta: No significant abnormality. Additional Findings: There is mild anasarca. PELVIS: Colon: No acute abnormality. Diverticulosis is noted. Urinary Bladder and Distal Ureters: There is a Christina catheter, gas in the lumen is likely related to the catheter placement. Appendix: No significant abnormality. Lymph Nodes: No significant adenopathy. Additional Findings: There is trace free fluid in the pelvis. IMPRESSION: 1. No acute process in the abdomen or pelvis. 2. Incidental findings, as above. 3. Chest findings are reported separately. [facility] [address], [address] [place] [address] P [phone] F [phone] [facility] - Report exported on Aug 25, 2020 13:48:11 -[id number] - Page 2 of 2 Signer Name: Johan Sosa MD Signed: 08/25/2020 1:15 PM Workstation Name: [id number] Patient Name: MARI YOUNG Gender: Female Date of : 1945 Referring Provider: GUADALUPE BOJORQUEZ Organization: [facility] Accession Number: [id number] Requested Date: August 25, 2020 11:06 Report Status: Final Requested Procedure: 1 Procedure Description: CT head/brain wo con Modality: CT Findings Reporting MD: Jacinto Dillon Dictation Time: August 25, 2020 13:15 Events Administrative Assistant: Not available Parking Meter Attendant Date: CT BRAIN: 08/25/2020 INDICATION / CLINICAL INFORMATION: unresponsive cardiac arrest. COMPARISON: None available. FINDINGS: BRAIN/INTRACRANIAL STRUCTURES: Unenhanced CT images of the brain demonstrate no evidence of acute abnormality. Ventricles and sulci are slightly prominent in size, consistent with age-related atrophic change. There is no evidence of acute ischemic injury, hemorrhage, or mass. There are no abnormal extra-axial fluid collections. EXTRACRANIAL STRUCTURES: Unremarkable. IMPRESSION: No CT evidence of acute abnormality. All CT scans at this location are performed using dose reduction to ALARA by means of automated exposure control. Signer Name: Jacinto Dillon MD Signed: 08/25/2020 1:15 PM Workstation Name: [id number] . Patient Name: MARI YOUNG Gender: Female Date of : 1945 Referring Provider: GUADALUPE BOJORQUEZ Organization: [facility] Accession Number: [id number] Requested Date: August 25, 2020 11:05 Report Status: Final Requested Procedure: 1 Procedure Description: XR chest 1V ap Modality: XR Findings Reporting MD: Renzo Russell Dictation Time: August 25, 2020 11:09 Events Administrative Assistant: Not available Parking Meter Attendant Date: CHEST 1 VIEW 08/25/2020 11:00 AM INDICATION / CLINICAL INFORMATION: cardiac arrest. COMPARISON: 08/20/2020 FINDINGS: SUPPORT DEVICES: The tip of ET tube is in the right main bronchus. NG tube is seen extending below the diaphragm. HEART / MEDIASTINUM: Stable. LUNGS / PLEURA: Worsening patchy bilateral opacities. No pneumothorax. ADDITIONAL FINDINGS: No significant additional findings. IMPRESSION: 1. ET tube tip is in the right main bronchus and retraction is necessary. 2. Worsening patchy bilateral pulmonary opacities. Signer Name: Renzo Russell MD Signed: 08/25/2020 11:09 AM Workstation Name: [id number] - Medical Decision Making 1. Ms. Campos is a 75-year-old female with several comorbidities who presents status post asystole cardiac arrest. Patient maintained blood pressure without vasopressor therapy however with persistent bradycardia. Differential diagnosis includes septic shock, arrhythmia due to hyperkalemia, arrhythmia due to structural heart disease. 2. Acute on chronic kidney injury possibly due to progressive diabetic nephropathy. Hyperkalemia addressed with calcium, sodium bicarbonate and insulin/dextrose therapy 3. CT chest revealed bilateral pleural effusions differential diagnosis includes multifocal pneumonia, pulmonary contusion due to chest compression, aspiration pneumonitis, malignancy. Treatment deferred to hospitalist team. 4. Anoxic encephalopathy: Patient GCS 3, no spontaneous movement. Pupils fixed dilated with dried corneas. Prognosis is extremely poor. Patient admitted to CCU in poor condition Critical Care Time: Yes Critical care time in (mins) excluding proc time.: 40 Critical care attestation.: If time is entered above; I have spent that time in minutes in the direct care of this critically ill patient, excluding procedure time. 40 minutes of critical care time excluding procedures were used in the care of the patient. After hearing EMS report, I asked charge nurse to contact respiratory therapist. Ventilator was brought to the treatment room prior to patient's arrival. Code cart made available. I waited for patient to arrive in the treatment room. I obtained history from EMS at the bedside. I discussed treatment plan with the nursing team members and respiratory therapist. I reviewed electronic record. I kept the family members informed. Patient required multiple interventions and reassessments. ED Disposition Clinical Impression: Cardiac arrest, Anoxic encephalopathy, Acute renal failure superimposed on chronic kidney disease, Acute respiratory failure, Multifocal pneumonia Disposition: OP ADMIT IP TO THIS HOSP Is pt being admited?: Yes Does the pt Need Aspirin: No Condition: Poor Instructions: Bacterial Pneumonia (ED)
[2020-08-25] MEDS ORDERED: SODIUM CHLORIDE 0.9% 1000 ML 1,000 ML IV ONE (11:05)
[2020-08-25] MEDS ORDERED: LIP THERAPY VASELINE TP PRN (11:07)
[2020-08-25] MEDS ORDERED: MINERAL OIL/PETROLATUM, WHITE OPHTH OINT 3.5 GM OU PRN (11:07)
[2020-08-25] MEDS ORDERED: FAMOTIDINE 20 MG/2 ML INJ IV ONE (11:55)
[2020-08-25 11:57] LABS: Bacteria,Urine 1+ /HPF (Negative); Bilirubin,Urine NEG (Negative); Blood,Urine SM (Negative); Color,Urine Yellow (Yellow); Hyaline Casts,Urine 28 /LPF; Renal Epithelial Cells,Urine 4 /LPF; Urobilinogen,Urine < 2.0 mg/dL (<2.0)
[2020-08-25 12:00] LABS: Protein,Urine >500 mg/dL (Negative)
--- NOTE | 2020-08-25 12:13 | XRay Report ---
CHEST 1 VIEW 08/25/2020 11:00 AM INDICATION / CLINICAL INFORMATION: cardiac arrest. COMPARISON: 08/20/2020 FINDINGS: SUPPORT DEVICES: The tip of ET tube is in the right main bronchus. NG tube is seen extending below th e diaphragm. HEART / MEDIASTINUM: Stable. LUNGS / PLEURA: Worsening patchy bilateral opacities. No pneumothorax. ADDITIONAL FINDINGS: No significant additional findings. IMPRESSION: 1. ET tube tip is in the right main bronchus and retraction is necessary. 2. Worsening patchy bilateral pulmonary opacities. Signer Name: Renzo Russell MD Signed: 08/25/2020 12:09 PM Workstation Name: [id number]
[2020-08-25 12:14] LABS: Hematocrit 27.6 % (30.3-42.9); Hemoglobin 8.6 gm/dl (10.1-14.3); Mean Corpuscular HGB Conc 31 % (30-34); Mean Corpuscular Volume 86 fl (79-97); Platelet Count 212 K/mm3 (140-440); Red Blood Count 3.22 M/mm3 (3.65-5.03); Red Cell Distribution Width 15.6 % (13.2-15.2)
[2020-08-25 12:43] LABS: Albumin 3.4 g/dL (3.9-5); Calcium 8.1 mg/dL (8.4-10.2)
[2020-08-25 12:49] LABS: Band Neutrophils # (Manual) 0.2 K/mm3; Total Cells Counted 100
[2020-08-25 12:50] LABS: Anisocytosis 1+; Ovalocytes 1+; Platelet Estimate Consistent w Auto; Poikilocytosis 1+; Tear Drop Cells Rare
[2020-08-25] MEDS ORDERED: DEXTROSE 50% IN WATER (25GM) 50 ML VIAL IV ONE (12:52)
[2020-08-25] MEDS ORDERED: INSULIN REGULAR, HUMAN 100 UNITS/1 ML IV ONE (12:52)
[2020-08-25] MEDS ORDERED: CALCIUM GLUCONATE 1,000 MG in SODIUM CHLORIDE 0.9% 100 ML IV ONE (12:53)
[2020-08-25] MEDS ORDERED: SODIUM BICARB 8.4% 50 MEQ/50 ML SYRINGE IV ONE (12:53)
[2020-08-25] MEDS ORDERED: DEXTROSE 50% IN WATER (25GM) 50 ML SYRINGE IV ONE (13:00)
[2020-08-25 13:47] LABS: Chol/HDL Ratio 3.16 %
--- NOTE | 2020-08-25 14:19 | Cat Scan Report ---
CT ABDOMEN AND PELVIS WITH IV CONTRAST INDICATION: unresponsive cardiac arrest 100 ML OMNI 350 . COMPARISON: CT 07/31/2018. TECHNIQUE: All CT scans at this facility use dose modulation, automated exposure control, iterative reconstructi on or weight based dosing, when appropriate, to reduce radiation dose to as low as reasonably achieva ble. FINDINGS: Skeletal System: No acute abnormality. ABDOMEN: Liver: No significant abnormality. Gallbladder: Removed. Bile Ducts: No significant abnormality. Pancreas: No significant abnormality. Spleen: No significant abnormality. Adrenals: No significant abnormality. Right Kidney: No significant abnormality. There is a tiny exophytic lower pole cyst. Left Kidney: No significant abnormality. There is a simple cyst in the medial cortex of the upper femi e. Upper GI tract: Esophagogastric tube is in satisfactory position. Lymph Nodes: No significant adenopathy. Aorta: No significant abnormality. Additional Findings: There is mild anasarca. PELVIS: Colon: No acute abnormality. Diverticulosis is noted. Urinary Bladder and Distal Ureters: There is a Christina catheter, gas in the lumen is likely related to the catheter placement. Appendix: No significant abnormality. Lymph Nodes: No significant adenopathy. Additional Findings: There is trace free fluid in the pelvis. IMPRESSION: 1. No acute process in the abdomen or pelvis. 2. Incidental findings, as above. 3. Chest findings are reported separately. Signer Name: Johan Sosa MD Signed: 08/25/2020 2:15 PM Workstation Name: [id number]
--- NOTE | 2020-08-25 14:19 | Cat Scan Report ---
CTA CHEST WITH IV CONTRAST INDICATION / CLINICAL INFORMATION: unresponsive cardiac arrest 100 ML OMNI 350 . TECHNIQUE: Axial CT images were obtained through the chest after injection of IV contrast. 3 plane MIP and/or 3D reconstructions were produced. All CT scans at this location are performed using CT dose reduction f or ALARA by means of automated exposure control. COMPARISON: None available. FINDINGS: PULMONARY ARTERIES: No pulmonary emboli. THORACIC AORTA: No significant abnormality. HEART: Cardiac enlargement. CORONARY ARTERIES: No significant calcification. PLEURA: Large bilateral pleural effusions. No pneumothorax. LYMPH NODES: No significant adenopathy. LUNGS: Bilateral prominent interstitium with patchy airspace disease throughout both lungs ADDITIONAL FINDINGS: Endotracheal tubes in good position SKELETAL STRUCTURES: No significant osseous abnormality. IMPRESSION: 1. No CT evidence for pulmonary embolism. 2. Bilateral pulmonary process with large bilateral pleural effusions, pneumonia is a concern. Pulmon alison edema, similar appearance Signer Name: Kenny Alvarado MD Signed: 08/25/2020 2:15 PM Workstation Name: [id number]
--- NOTE | 2020-08-25 14:20 | Cat Scan Report ---
CT BRAIN: 08/25/2020 INDICATION / CLINICAL INFORMATION: unresponsive cardiac arrest. COMPARISON: None available. FINDINGS: BRAIN/INTRACRANIAL STRUCTURES: Unenhanced CT images of the brain demonstrate no evidence of acute abn ormality. Ventricles and sulci are slightly prominent in size, consistent with age-related atrophic change. There is no evidence of acute ischemic injury, hemorrhage, or mass. There are no abnormal extra-axial fluid collections. EXTRACRANIAL STRUCTURES: Unremarkable. IMPRESSION: No CT evidence of acute abnormality. All CT scans at this location are performed using dose reduction to ALARA by means of automated expos ure control. Signer Name: Jacinto Dillon MD Signed: 08/25/2020 2:15 PM Workstation Name: [id number]
--- NOTE | 2020-08-25 14:47 | History and Physical Report ---
History of Present Illness Chief complaint: Unresponsive History of present illness: 75 YO Female with Obesity Hypoventilation Syndrome, DM, CHF, GERD, HTN, Chronic Respiratory Failure on Home Oxygen @3L NC presents to ED for evaluation. Patient is intubated and on ventilatory support at the time of my evaluation and unable to provide history. Patient history provided by EMS staff, ED staff, as well as patient's family who was made available by telephone interview. As per family the patient was in her usual state of health upon awakening from sleep around 0830 hrs. The patient was found down and unresponsive at 0950 hrs. EMS was notified and upon arrival the patient was found to be unresponsive and asystolic arrest. Patient treated" with ACLS protocol with eventual return of perfusing cardiac rhythm. Patient subsequently transported to [facility] for further care and evaluation of the aforementioned symptoms. The patient was seen and evaluated in the emergency department. All lab and imaging studies reviewed. Patient was found to have acute hypoxemic respiratory failure and was subsequently intubated and placed on ventilatory support. Patient also underwent chest x-ray and was found to have bilateral pneumonia, as well as systemic inflammatory response syndrome. Critical care team consulted in ED. Patient admitted to ICU and initiated on pneumonia protocol. Cardiology team consulted. No further history is obtainable. Prior admission on 03/14/2020 reviewed. All medication listed at time of admission has been reconciled. Advanced care planning conducted in ED. Past History Past Medical History: diabetes, GERD, heart failure, hypertension, other (See HPI) Past Surgical History: hysterectomy Social history: , lives with family. denies: smoking, alcohol abuse, prescription drug abuse Family history: diabetes, hypertension Medications and Allergies Allergies Allergy/AdvReac Type Severity Reaction Status Date / Time No Known Allergies Allergy Verified 07/31/18 07:06 Home Medications Medication Instructions Recorded Confirmed Last Taken Type Albuterol Mdi (or & Nicu Only) 2 puff IH QID PRN #1 inhalation 08/07/18 03/14/20 Unknown Rx [ProAir HFA Inhaler] Sucralfate [Carafate] 1 gm PO ACHS #30 tablet 08/07/18 03/14/20 03/13/20 Rx Insulin Regular, Human [HumuLIN R] 0 unit SQ AC #1 vial 08/11/18 03/14/20 Unknown Rx Labetalol HCl [Labetalol 300mg TAB] 300 mg PO BID #60 tablet 11/11/19 03/14/20 03/14/20 Rx Furosemide [Lasix TAB] 80 mg PO DAILY #14 tablet 03/27/20 Unknown Rx Insulin Glargine [Lantus VIAL] 15 units SUB-Q QAM #1 vial 03/27/20 Unknown Rx amLODIPine 10 mg PO QDAY #30 tablet 03/27/20 Unknown Rx Active Meds: Active Medications Famotidine (Famotidine 20 Mg/2 Ml Inj) 20 mg IV BID TERA Hydrophilic Ointment (Lip Therapy Vaseline) 1 applic TP Q2HR PRN PRN Reason: Dry Lips Last Admin: 08/25/20 11:57 Dose: 1 applic Documented by: Multi-Ingred Cream/Lotion/Oil/Oint (Mineral Oil/Petrolatum, White Ophth Oint 3.5 Gm) 1 applic OU Q4HR PRN PRN Reason: Dry Eye(s) Senna/Docusate Sodium (Sennosides/Docusate Sodium 8.6/50 Mg Tab) 1 tab FEEDTUBE BID [facility] Review of Systems ROS unobtainable: due to endotracheal tube, due to mental status Exam - Constitutional Vitals: Temp Pulse Resp BP Pulse Ox 97.5 F L 68 18 195/80 98 08/25/20 11:09 08/25/20 14:11 08/25/20 14:11 08/25/20 14:11 08/25/20 14:11 General appearance: Present: severe distress, obese - EENT Eyes: Present: PERRL ENT: clear oral mucosa, hearing decreased - Neck Neck: Present: supple, normal ROM - Respiratory Respiratory effort: labored Respiratory: bilateral: diminished, rhonchi - Cardiovascular Heart Sounds: Present: S1 & S2. Absent: rub, click - Extremities Extremities: pulses symmetrical, No edema Peripheral Pulses: within normal limits - Abdominal General gastrointestinal: Present: soft, non-tender, non-distended, normal bowel sounds Female genitourinary: Present: normal - Integumentary Integumentary: Present: clear, dry, decreased turgor - Musculoskeletal Musculoskeletal: generalized weakness - Psychiatric Psychiatric: no appropriate mood/affect, no intact judgment & insight, no memory intact - Neurologic Neurologic: CNII-XII intact, no focal deficits, moves all extremities, no gait normal HEART Score - HEART Score Troponin: Troponin T 0.057 ng/mL (0.00-0.029) H 08/25/20 11:23 Results - Labs CBC & Chem 7: 08/25/20 11:23 08/25/20 11:23 Labs: Abnormal lab results 08/25/20 08/25/20 08/25/20 Range/Units 11:14 11:17 11:23 WBC 11.5 H (4.5-11.0) K/mm3 RBC 3.22 L (3.65-5.03) M/mm3 Hgb 8.6 L (10.1-14.3) gm/dl Hct 27.6 L (30.3-42.9) % MCH 27 L (28-32) pg RDW 15.6 H (13.2-15.2) % Seg Neuts % (Manual) 89.0 H (40.0-70.0) % Lymphocytes % (Manual) 5.0 L (13.4-35.0) % Seg Neutrophils # Man 10.2 H (1.8-7.7) K/mm3 Lymphocytes # (Manual) 0.6 L (1.2-5.4) K/mm3 D-Dimer (0-234) ng/mlDDU ABG pH 7.290 L (7.320-7.450) POC ABG pO2 161.1 H (83-108) mmHg ABG Hemoglobin 8.9 L (12.0-17.5) ABG Oxyhemoglobin 98.6 H (94-98) ABG Sodium 135.2 L (136.0-145.0) mmol/L ABG Potassium 5.9 H (3.40-4.50) mmol/L ABG Glucose 210 H (65-95) mg/dL Carboxyhemoglobin 0.4 L (0.5-1.5) Potassium (3.6-5.0) mmol/L Carbon Dioxide (22-30) mmol/L BUN (7-17) mg/dL Creatinine (0.6-1.2) mg/dL Glucose (65-100) mg/dL POC Glucose (70-105) mg/dL Lactic Acid (0.7-2.0) mmol/L Calcium (8.4-10.2) mg/dL AST (5-40) units/L ALT (7-56) units/L Troponin T (0.00-0.029) ng/mL Total Protein (6.3-8.2) g/dL Albumin (3.9-5) g/dL Arterial Blood Glucose 210 H (65-95) mg/dL Arterial Blood Ionized Calcium 4.4 L (4.6-5.3) mg/dL Urine WBC (Auto) 31.0 H (0.0-6.0) /HPF 08/25/20 08/25/20 08/25/20 Range/Units 11:23 11:23 11:23 WBC (4.5-11.0) K/mm3 RBC (3.65-5.03) M/mm3 Hgb (10.1-14.3) gm/dl Hct (30.3-42.9) % MCH (28-32) pg RDW (13.2-15.2) % Seg Neuts % (Manual) (40.0-70.0) % Lymphocytes % (Manual) (13.4-35.0) % Seg Neutrophils # Man (1.8-7.7) K/mm3 Lymphocytes # (Manual) (1.2-5.4) K/mm3 D-Dimer > 29815 H (0-234) ng/mlDDU ABG pH (7.320-7.450) POC ABG pO2 (83-108) mmHg ABG Hemoglobin (12.0-17.5) ABG Oxyhemoglobin (94-98) ABG Sodium (136.0-145.0) mmol/L ABG Potassium (3.40-4.50) mmol/L ABG Glucose (65-95) mg/dL Carboxyhemoglobin (0.5-1.5) Potassium 6.4 H* (3.6-5.0) mmol/L Carbon Dioxide 21 L (22-30) mmol/L BUN 52 H (7-17) mg/dL Creatinine 3.5 H (0.6-1.2) mg/dL Glucose 194 H (65-100) mg/dL POC Glucose (70-105) mg/dL Lactic Acid 3.30 H* (0.7-2.0) mmol/L Calcium 8.1 L (8.4-10.2) mg/dL AST 103 H (5-40) units/L ALT 77 H (7-56) units/L Troponin T 0.057 H (0.00-0.029) ng/mL Total Protein 5.8 L (6.3-8.2) g/dL Albumin 3.4 L (3.9-5) g/dL Arterial Blood Glucose (65-95) mg/dL Arterial Blood Ionized Calcium (4.6-5.3) mg/dL Urine WBC (Auto) (0.0-6.0) /HPF 08/25/20 Range/Units 13:51 WBC (4.5-11.0) K/mm3 RBC (3.65-5.03) M/mm3 Hgb (10.1-14.3) gm/dl Hct (30.3-42.9) % MCH (28-32) pg RDW (13.2-15.2) % Seg Neuts % (Manual) (40.0-70.0) % Lymphocytes % (Manual) (13.4-35.0) % Seg Neutrophils # Man (1.8-7.7) K/mm3 Lymphocytes # (Manual) (1.2-5.4) K/mm3 D-Dimer (0-234) ng/mlDDU ABG pH (7.320-7.450) POC ABG pO2 (83-108) mmHg ABG Hemoglobin (12.0-17.5) ABG Oxyhemoglobin (94-98) ABG Sodium (136.0-145.0) mmol/L ABG Potassium (3.40-4.50) mmol/L ABG Glucose (65-95) mg/dL Carboxyhemoglobin (0.5-1.5) Potassium (3.6-5.0) mmol/L Carbon Dioxide (22-30) mmol/L BUN (7-17) mg/dL Creatinine (0.6-1.2) mg/dL Glucose (65-100) mg/dL POC Glucose 188 H (70-105) mg/dL Lactic Acid (0.7-2.0) mmol/L Calcium (8.4-10.2) mg/dL AST (5-40) units/L ALT (7-56) units/L Troponin T (0.00-0.029) ng/mL Total Protein (6.3-8.2) g/dL Albumin (3.9-5) g/dL Arterial Blood Glucose (65-95) mg/dL Arterial Blood Ionized Calcium (4.6-5.3) mg/dL Urine WBC (Auto) (0.0-6.0) /HPF Assessment and Plan - Patient Problems (1) Acute respiratory failure with hypoxia Current Visit: No Status: Acute Plan to address problem: Patient dependent on ventilatory support: Wean vent as tolerated, critical care team consulted in ED, sedation holiday, daily spontaneous breathing trial, daily arterial blood gas, The high probability of a clinically significant, sudden or life threatening deterioration of the [cardiac, pulmonary, neuro, renal, infectious disease] system(s) required my full and direct attention, intervention and personal management. The aggregate critical care time was [65] minutes. This time is in addition to time spent performing reported procedures but includes the following: [x] Data Review and interpretation [x] Patient assessment and monitoring of vital signs [x] Documentation [x] Medication orders and management (2) Anoxic encephalopathy Current Visit: Yes Status: Acute Plan to address problem: CT head, neuro check, supportive care, (3) Cardiac arrest Current Visit: Yes Status: Acute Plan to address problem: Patient treated" with ACLS protocol with the eventual return of perfusing cardiac rhythm. Echocardiogram ordered and is pending at time of admission, cardiology team consulted, (4) Multifocal pneumonia Current Visit: Yes Status: Acute Plan to address problem: Pneumonia protocol: Chest x-ray, CBC, CMP, IV antibiotic therapy, blood culture. (5) DVT prophylaxis Current Visit: Yes Status: Acute Plan to address problem: SCD to bilateral lower extremities while in bed, prophylactic anticoagulation (6) Advance care planning Current Visit: Yes Status: Acute Plan to address problem: Disease education conducted, care plan discussed, diagnoses discussed, prognosis discussed, patient remains full code, patient poor prognosis related family members. Patient family knowledge understanding and agreement with current care plan. Patient is full code, +30 minutes. Jhonny Payton
[2020-08-25] MEDS ORDERED: ALBUTEROL 2.5 MG/3 ML NEBU IH PRN (14:55)
--- NOTE | 2020-08-25 15:12 | XRay Report ---
CHEST 1 VIEW 08/25/2020 2:04 PM INDICATION / CLINICAL INFORMATION: tube placement; resp distress. COMPARISON: CTA chest on 08/25/2020 FINDINGS: SUPPORT DEVICES: ET tube tip is about 4 cm above the isabel. NG tube is seen extending below the diap hragm. HEART / MEDIASTINUM: Stable. LUNGS / PLEURA: Stable diffuse pulmonary opacities. No pneumothorax. ADDITIONAL FINDINGS: No significant additional findings. IMPRESSION: 1. Endotracheal tube in expected position. Signer Name: Renzo Russell MD Signed: 08/25/2020 3:07 PM Workstation Name: [id number]
[2020-08-25] MEDS ORDERED: DEXTROSE 50% IN WATER (25GM) 50 ML SYRINGE IV PRN (18:46)
[2020-08-25] MEDS ORDERED: LORazepam 2 MG/ML VIAL ONE (20:16)
[2020-08-25] MEDS ORDERED: LORazepam 2 MG/ML VIAL IV PRN (20:22)
[2020-08-25] MEDS: INSULIN LISPRO 100 UNIT/ML SUB-Q SCH (20:34)
[2020-08-25] MEDS ORDERED: LORazepam 2 MG/ML VIAL IV ONE (20:48)
[2020-08-25] MEDS ORDERED: levETIRAcetam 1000 MG/NS 0.75% 1,000 MG/100 ML BAG IV ONE (21:00)
[2020-08-25] MEDS ORDERED: levETIRAcetam 1,000 MG in DEXTROSE 5% IN WATER 100 ML IV ONE (21:00)
[2020-08-25] MEDS: FAMOTIDINE 20 MG/2 ML INJ IV SCH (21:09)
[2020-08-25] MEDS: SENNOSIDES/DOCUSATE SODIUM 8.6/50 MG TAB FEEDTUBE SCH (21:09)
[2020-08-26] MEDS ORDERED: MIDAZOLAM 100 MG in SODIUM CHLORIDE 0.9% 80 ML IV SCH (01:20)
[2020-08-26] MEDS ORDERED: MIDAZOLAM 2 MG/2 ML INJ IV PRN (01:20)
[2020-08-26] MEDS ORDERED: hydrALAZINE 20 MG/1 ML INJ IV STA (01:31)
[2020-08-26 06:09] LABS: Hematocrit 25.6 % (30.3-42.9); Hemoglobin 8.3 gm/dl (10.1-14.3); Mean Corpuscular HGB Conc 32 % (30-34); Mean Corpuscular Volume 84 fl (79-97); Platelet Count 188 K/mm3 (140-440); Red Blood Count 3.05 M/mm3 (3.65-5.03); Red Cell Distribution Width 15.3 % (13.2-15.2)
[2020-08-26 06:52] LABS: Albumin 2.9 g/dL (3.9-5); Calcium 8.3 mg/dL (8.4-10.2)
--- NOTE | 2020-08-26 08:02 | XRay Report ---
CHEST 1 VIEW INDICATION / CLINICAL INFORMATION: follow up respiratory failure. FINDINGS: SUPPORT DEVICES: No significant change in position. HEART / MEDIASTINUM: The cardiomediastinal silhouette has not significantly changed in the interim. LUNGS / PLEURA: Severe bilateral airspace disease has not significantly improved from yesterday's exa m Signer Name: Luis Taylor MD Signed: 08/26/2020 7:58 AM Workstation Name: [id number]
[2020-08-26 08:05] LABS: Total Cells Counted 100
[2020-08-26 08:06] LABS: Anisocytosis 1+; Platelet Estimate Consistent w Auto
[2020-08-26] MEDS: INSULIN LISPRO 100 UNIT/ML SUB-Q SCH ×3 (09:14→17:52)
[2020-08-26] MEDS: FAMOTIDINE 20 MG/2 ML INJ IV SCH (09:15)
[2020-08-26] MEDS: SENNOSIDES/DOCUSATE SODIUM 8.6/50 MG TAB FEEDTUBE SCH ×2 (09:15→21:22)
--- NOTE | 2020-08-26 10:20 | Progress Note ---
Assessment and Plan Assessment and plan: 75 YO Female with Obesity Hypoventilation Syndrome, DM, CHF, GERD, HTN, Chronic Respiratory Failure on Home Oxygen @3L NC presents to ED for evaluation. Patient is intubated and on ventilatory support at the time of my evaluation and unable to provide history. Patient history provided by EMS staff, ED staff, as well as patient's family who was made available by telephone interview. As per family the patient was in her usual state of health upon awakening from sleep around 0830 hrs. The patient was found down and unresponsive at 0950 hrs. EMS was notified and upon arrival the patient was found to be unresponsive and asystolic arrest. Patient treated" with ACLS protocol with eventual return of perfusing cardiac rhythm. Patient subsequently transported to [facility] for further care and evaluation of the aforementioned symptoms. The patient was seen and evaluated in the emergency department. All lab and imaging studies reviewed. Patient was found to have acute hypoxemic respiratory failure and was subsequently intubated and placed on ventilatory support. Patient also underwent chest x-ray and was found to have bilateral pneumonia, as well as systemic inflammatory response syndrome. Critical care team consulted in ED. Patient admitted to ICU and initiated on pneumonia protocol. Cardiology team consulted. No further history is obtainable. Prior admission on 03/14/2020 reviewed. All medication listed at time of admission has been reconciled. Advanced care planning conducted in ED. Assessment and Plan - Patient Problems (1) Acute respiratory failure with hypoxia Current Visit: No Status: Acute Plan to address problem: Patient dependent on ventilatory support: Wean vent as tolerated, critical care team consulted in ED, sedation holiday, daily spontaneous breathing trial, daily arterial blood gas, The high probability of a clinically significant, sudden or life threatening deterioration of the [cardiac, pulmonary, neuro, renal, infectious disease] system(s) required my full and direct attention, intervention and personal management. The aggregate critical care time was [65] minutes. This time is in addition to time spent performing reported procedures but includes the following: [x] Data Review and interpretation [x] Patient assessment and monitoring of vital signs [x] Documentation [x] Medication orders and management (2) Anoxic encephalopathy Current Visit: Yes Status: Acute Plan to address problem: CT head, neuro check, supportive care, (3) Cardiac arrest Current Visit: Yes Status: Acute Plan to address problem: Patient treated" with ACLS protocol with the eventual return of perfusing cardiac rhythm. Echocardiogram ordered and is pending at time of admission, cardiology team consulted, (4) Multifocal pneumonia Current Visit: Yes Status: Acute Plan to address problem: Pneumonia protocol: Chest x-ray, CBC, CMP, IV antibiotic therapy, blood culture. (5) DVT prophylaxis Current Visit: Yes Status: Acute Plan to address problem: SCD to bilateral lower extremities while in bed, prophylactic anticoagulation (6) Advance care planning Current Visit: Yes Status: Acute Plan to address problem: Disease education conducted, care plan discussed, diagnoses discussed, prognosis discussed, patient remains full code, patient poor prognosis related family members. Patient family knowledge understanding and agreement with current care plan. Patient is full code, +30 minutes. Jhonny Payton 08/26/20 patient is seen and examined. Patient is on vent. WBC 17.9 and hemoglobin 8.3 hematocrit 25.6. Patient may have 1 episode of questionable seizure. Patient BUN is 56 creatinine 3.4. Will consult nephrology. We also start the patient on Rocephin 2 g IV daily and Zithromax. Aspirin 81 mg p.o. daily and Lipitor. Patient is having echocardiogram. Cardiology and critical care will see the patient as consult tension. Continue current management. We have started on NG tube feeding and consult nutrition for evaluation. Recheck CBC BMP in the morning. Case discussed with daughter Leena [phone] History Interval history: Patient is seen and examined Lab and medication reviewed Patient is on vent. WBC 17.9. Hemoglobin 8.3 hematocrit 25.6 Hospitalist Physical - Constitutional Vitals: Temp Pulse Resp BP Pulse Ox 99.0 F 71 18 162/67 98 08/26/20 07:00 08/26/20 08:00 08/26/20 05:51 08/26/20 08:00 08/26/20 08:00 General appearance: Present: severe distress, obese - EENT Eyes: Present: PERRL ENT: clear oral mucosa, dentition normal - Neck Neck: Present: supple, normal ROM - Respiratory Respiratory effort: normal Respiratory: left: diminished - Cardiovascular Rhythm: regular Heart Sounds: Present: S1 & S2 - Extremities Extremities: no ischemia Peripheral Pulses: within normal limits - Abdominal General gastrointestinal: soft, non-tender, normal bowel sounds - Psychiatric Psychiatric: other (On vent) - Neurologic Neurologic: other (On vent) HEART Score - HEART Score Troponin: Troponin T 0.057 ng/mL (0.00-0.029) H 08/25/20 11:23 Results - Labs CBC & Chem 7: 08/26/20 05:04 08/26/20 05:04 Labs: Laboratory Last Values WBC 17.9 K/mm3 (4.5-11.0) H 08/26/20 05:04 RBC 3.05 M/mm3 (3.65-5.03) L 08/26/20 05:04 Hgb 8.3 gm/dl (10.1-14.3) L 08/26/20 05:04 Hct 25.6 % (30.3-42.9) L 08/26/20 05:04 MCV 84 fl (79-97) 08/26/20 05:04 MCH 27 pg (28-32) L 08/26/20 05:04 MCHC 32 % (30-34) 08/26/20 05:04 RDW 15.3 % (13.2-15.2) H 08/26/20 05:04 Plt Count 188 K/mm3 (140-440) 08/26/20 05:04 Add Manual Diff Complete 08/26/20 05:04 Total Counted 100 08/26/20 05:04 Seg Neutrophils % [place] 08/26/20 05:04 Seg Neuts % (Manual) 96.0 % (40.0-70.0) H 08/26/20 05:04 Band Neutrophils % 2.0 % 08/25/20 11:23 Lymphocytes % (Manual) 1.0 % (13.4-35.0) L 08/26/20 05:04 Monocytes % (Manual) 3.0 % (0.0-7.3) 08/26/20 05:04 Eosinophils % (Manual) 3.0 % (0.0-4.3) 08/25/20 11:23 Metamyelocytes % 1.0 % 08/25/20 11:23 Nucleated RBC % Not Reportable 08/26/20 05:04 Seg Neutrophils # Man 17.2 K/mm3 (1.8-7.7) H 08/26/20 05:04 Band Neutrophils # 0.0 K/mm3 08/26/20 05:04 Lymphocytes # (Manual) 0.2 K/mm3 (1.2-5.4) L 08/26/20 05:04 Abs React Lymphs (Man) 0.0 K/mm3 08/26/20 05:04 Monocytes # (Manual) 0.5 K/mm3 (0.0-0.8) 08/26/20 05:04 Eosinophils # (Manual) 0.0 K/mm3 (0.0-0.4) 08/26/20 05:04 Basophils # (Manual) 0.0 K/mm3 (0.0-0.1) 08/26/20 05:04 Metamyelocytes # 0.0 K/mm3 08/26/20 05:04 Myelocytes # 0.0 K/mm3 08/26/20 05:04 Promyelocytes # 0.0 K/mm3 08/26/20 05:04 Blast Cells # 0.0 K/mm3 08/26/20 05:04 WBC Morphology Not Reportable 08/26/20 05:04 Hypersegmented Neuts Not Reportable 08/26/20 05:04 Hyposegmented Neuts Not Reportable 08/26/20 05:04 Hypogranular Neuts Not Reportable 08/26/20 05:04 Smudge Cells Not Reportable 08/26/20 05:04 Toxic Granulation Not Reportable 08/26/20 05:04 Toxic Vacuolation Not Reportable 08/26/20 05:04 Dohle Bodies Not Reportable 08/26/20 05:04 Pelger-Huet Anomaly Not Reportable 08/26/20 05:04 Jannette Rods Not Reportable 08/26/20 05:04 Platelet Estimate Consistent w auto 08/26/20 05:04 Clumped Platelets Not Reportable 08/26/20 05:04 Plt Clumps, EDTA Not Reportable 08/26/20 05:04 Large Platelets Not Reportable 08/26/20 05:04 Giant Platelets Not Reportable 08/26/20 05:04 Platelet Satelliting Not Reportable 08/26/20 05:04 Plt Morphology Comment Not Reportable 08/26/20 05:04 RBC Morphology Not Reportable 08/26/20 05:04 Dimorphic RBCs Not Reportable 08/26/20 05:04 Polychromasia Not Reportable 08/26/20 05:04 Hypochromasia Not Reportable 08/26/20 05:04 Poikilocytosis Not Reportable 08/26/20 05:04 Anisocytosis 1+ 08/26/20 05:04 Microcytosis Not Reportable 08/26/20 05:04 Macrocytosis Not Reportable 08/26/20 05:04 Spherocytes Not Reportable 08/26/20 05:04 Pappenheimer Bodies Not Reportable 08/26/20 05:04 Sickle Cells Not Reportable 08/26/20 05:04 Target Cells Not Reportable 08/26/20 05:04 Tear Drop Cells Not Reportable 08/26/20 05:04 Ovalocytes Not Reportable 08/26/20 05:04 Helmet Cells Not Reportable 08/26/20 05:04 Fernando-Barbourmeade Bodies Not Reportable 08/26/20 05:04 Troy Rings Not Reportable 08/26/20 05:04 Lindsey Cells Not Reportable 08/26/20 05:04 Bite Cells Not Reportable 08/26/20 05:04 Crenated Cell Not Reportable 08/26/20 05:04 Elliptocytes Not Reportable 08/26/20 05:04 Acanthocytes (Spur) Not Reportable 08/26/20 05:04 Rouleaux Not Reportable 08/26/20 05:04 Hemoglobin C Crystals Not Reportable 08/26/20 05:04 Schistocytes Not Reportable 08/26/20 05:04 Malaria parasites Not Reportable 08/26/20 05:04 Shabbir Bodies Not Reportable 08/26/20 05:04 Hem Pathologist Commnt No 08/26/20 05:04 D-Dimer > 40348 ng/mlDDU (0-234) H 08/25/20 11:23 ABG pH 7.433 (7.320-7.450) 08/26/20 04:14 POC ABG pCO2 34.4 mmHg (32.0-48.0) 08/26/20 04:14 POC ABG pO2 131.3 mmHg (83-108) H 08/26/20 04:14 POC ABG HCO3 22.5 08/26/20 04:14 ABG O2 Saturation 98.7 (0-100) 08/26/20 04:14 POC ABG Base Excess -1.5 08/26/20 04:14 ABG Hemoglobin 8.6 (12.0-17.5) L 08/26/20 04:14 ABG Oxyhemoglobin 98.2 (94-98) H 08/26/20 04:14 ABG Methemoglobin 0.3 (0.0-1.5) 08/26/20 04:14 ABG Sodium 136.3 mmol/L (136.0-145.0) 08/26/20 04:14 ABG Potassium 4.3 mmol/L (3.40-4.50) 08/26/20 04:14 ABG Chloride 103.0 mmol/L (98-107) 08/26/20 04:14 ABG Glucose 182 mg/dL (65-95) H 08/26/20 04:14 Carboxyhemoglobin 0.2 (0.5-1.5) L 08/26/20 04:14 FiO2 % 70.0 08/26/20 04:14 Sodium 140 mmol/L (137-145) 08/26/20 05:04 Potassium 4.6 mmol/L (3.6-5.0) D 08/26/20 05:04 Chloride 103.3 mmol/L (98-107) 08/26/20 05:04 Carbon Dioxide 24 mmol/L (22-30) 08/26/20 05:04 Anion Gap 17 mmol/L 08/26/20 05:04 BUN 56 mg/dL (7-17) H 08/26/20 05:04 Creatinine 3.4 mg/dL (0.6-1.2) H 08/26/20 05:04 Estimated GFR 13 ml/min 08/26/20 05:04 BUN/Creatinine Ratio 16 % 08/26/20 05:04 Glucose 187 mg/dL (65-100) H 08/26/20 05:04 POC Glucose 171 mg/dL (70-105) H 08/26/20 07:36 Lactic Acid 1.80 mmol/L (0.7-2.0) 08/25/20 12:45 Calcium 8.3 mg/dL (8.4-10.2) L 08/26/20 05:04 Total Bilirubin 0.20 mg/dL (0.1-1.2) 08/26/20 05:04 AST 54 units/L (5-40) H 08/26/20 05:04 ALT 57 units/L (7-56) H 08/26/20 05:04 Alkaline Phosphatase 83 units/L (35-129) 08/26/20 05:04 Troponin T 0.057 ng/mL (0.00-0.029) H 08/25/20 11:23 Total Protein 5.4 g/dL (6.3-8.2) L 08/26/20 05:04 Albumin 2.9 g/dL (3.9-5) L 08/26/20 05:04 Albumin/Globulin Ratio 1.2 % 08/26/20 05:04 Triglycerides 89 mg/dL (2-149) 08/25/20 11:23 Cholesterol 158 mg/dL (50-199) 08/25/20 11:23 LDL Cholesterol Direct 101 mg/dL (50-130) 08/25/20 11:23 HDL Cholesterol 50 mg/dL (40-59) 08/25/20 11:23 Cholesterol/HDL Ratio 3.16 % 08/25/20 11:23 Arterial Blood Glucose 182 mg/dL (65-95) H 08/26/20 04:14 Arterial Blood Ionized Calcium 4.3 mg/dL (4.6-5.3) L 08/26/20 04:14 Urine Color Yellow (Yellow) 08/25/20 11:17 Urine Turbidity Cloudy (Clear) 08/25/20 11:17 Urine pH 7.0 (5.0-7.0) 08/25/20 11:17 Ur Specific Wittmann 1.012 (1.003-1.030) 08/25/20 11:17 Urine Protein >500 mg/dL (Negative) 08/25/20 11:17 Urine Glucose (UA) >=500 mg/dL (Negative) 08/25/20 11:17 Urine Ketones Neg mg/dL (Negative) 08/25/20 11:17 Urine Blood Sm (Negative) 08/25/20 11:17 Urine Nitrite Neg (Negative) 08/25/20 11:17 Urine Bilirubin Neg (Negative) 08/25/20 11:17 Urine Urobilinogen < 2.0 mg/dL (<2.0) 08/25/20 11:17 Ur Leukocyte Esterase Neg (Negative) 08/25/20 11:17 Urine WBC (Auto) 31.0 /HPF (0.0-6.0) H 08/25/20 11:17 Urine RBC (Auto) 28.0 /HPF (0.0-6.0) 08/25/20 11:17 U Epithel Cells (Auto) 5.0 /HPF (0-13.0) 08/25/20 11:17 Urine Bacteria (Auto) 1+ /HPF (Negative) 08/25/20 11:17 Urine WBC Clumps Few /HPF 08/25/20 11:17 Ur Renal Epithelial Cell 4 /LPF 08/25/20 11:17 Hyaline Casts 28 /LPF 08/25/20 11:17 Microbiology: Microbiology 08/25/20 11:23 Peripheral/Venous Blood Culture - Preliminary Culture in Progress 08/25/20 11:23 Peripheral/Venous Blood Culture - Preliminary Culture in Progress - Imaging and Cardiology Chest x-ray: report reviewed Christina/IV: Voiding Method Indwelling Catheter Active Medications - Current Medications Current Medications: Generic Name Dose Route Start Last Admin Trade Name Freq PRN Reason Stop Dose Admin Albuterol 2.5 mg 08/25/20 14:55 Albuterol 2.5 Mg/3 Ml Nebu IH Q3HRT PRN Shortness Of Breath Aspirin 81 mg 08/27/20 10:00 Aspirin 81 Mg Tab Chew PO QDAY TERA Atorvastatin Calcium 40 mg 08/26/20 22:00 Atorvastatin 40 Mg Tab PO QHS TERA Azithromycin 250 mg 08/27/20 10:00 Azithromycin 250 Mg Tab PO QDAY [facility] Protocol Dextrose 50 ml 08/25/20 18:46 Dextrose 50% In Water (25gm) 50 Ml Syringe IV Q30MIN PRN Hypoglycemia Protocol Famotidine 20 mg 08/25/20 22:00 08/26/20 09:15 Famotidine 20 Mg/2 Ml Inj IV 20 mg BID TERA Administration Hydralazine HCl 10 mg 08/26/20 01:20 Hydralazine 20 Mg/1 Ml Inj IV Q4HR PRN Blood Pressure Hydrophilic Ointment 1 applic 08/25/20 11:07 08/25/20 11:57 Lip Therapy Vaseline TP 1 applic Q2HR PRN Administration Dry Lips Levetiracetam 500 mg/ Dextrose 105 mls @ 400 mls/hr 08/26/20 10:00 IV Q12HR TERA Propofol 1,000 mg in 100 mls @ 2.838 mls/hr 08/25/20 20:48 08/26/20 08:00 Diprivan 10 Mg/Ml IV 35 mcg/kg/min TITR TERA 19.866 mls/hr Administration Protocol 5 MCG/KG/MIN Midazolam HCl 100 mg/ Sodium 100 mls @ 1 mls/hr 08/26/20 01:20 08/26/20 09:14 Chloride IV 2 mg/hr TITR TERA 2 mls/hr Titration Protocol 1 MG/HR Ceftriaxone Sodium 2 gm in 100 mls @ 200 mls/hr 08/26/20 11:00 Rocephin/Ns 2 Gm/100 Ml IV Q24H TERA Protocol Insulin Human Lispro 0 unit 08/25/20 22:00 08/26/20 09:14 Insulin Lispro 100 Unit/Ml SUB-Q Not Given ACHS [facility] Protocol Midazolam HCl 2 mg 08/26/20 01:20 Midazolam 2 Mg/2 Ml Inj IV Q10MIN PRN for control seizures Multi-Ingred Cream/Lotion/Oil/Oint 1 applic 08/25/20 11:07 Mineral Oil/Petrolatum, White Ophth Oint 3.5 Gm OU Q4HR PRN Dry Eye(s) Senna/Docusate Sodium 1 tab 08/25/20 22:00 08/26/20 09:15 Sennosides/Docusate Sodium 8.6/50 Mg Tab FEEDTUBE 1 tab BID TERA Administration Sodium Chloride 10 ml 08/25/20 22:00 08/26/20 09:16 Sodium Chloride 0.9% 10 Ml Flush Syringe IV 10 ml BID TERA Administration Sodium Chloride 10 ml 08/25/20 14:55 08/26/20 01:50 Sodium Chloride 0.9% 10 Ml Flush Syringe IV 10 ml PRN PRN Administration LINE FLUSH Nutrition/Malnutrition Assess - Malnutrition Assessment Minimum of two criteria: Yes - Attestation Statement I have reviewed and agreed w/ Malnutrition eval & tx plan: Yes
[2020-08-26] MEDS: cefTRIAXone/NS 2 GM/100 ML 2 GM/100 ML BAG IV SCH (11:09)
[2020-08-26] MEDS: levETIRAcetam 500 MG in DEXTROSE 5% IN WATER 100 ML IV SCH (11:10)
[2020-08-26] MEDS: hydrALAZINE 20 MG/1 ML INJ IV PRN (11:40)
[2020-08-26] MEDS ORDERED: LIPASE 10,500/PROTEASE 25,000/AMYLASE 43,750 (UNITS) DR CAP FEEDTUBE PRN (12:15)
[2020-08-26] MEDS ORDERED: SIMPLE SYRUP 15 ML FEEDTUBE PRN ×2 (12:15)
[2020-08-26] MEDS ORDERED: SODIUM BICARBONATE 325 MG TAB FEEDTUBE PRN (12:15)
--- NOTE | 2020-08-26 13:13 | Consultation ---
History of Present Illness - Reason for Consult Consult date: 08/26/20 acute renal failure, chronic renal failure - History of Present Illness The patient is a 75 YO female with history significant for Obesity, DM type 2, CHF, GERD, HTN, Chronic Respiratory Failure on Home Oxygen @3L [place], proteinuria and CKD stage 4 who presented to [facility] ED s/p Cardiac arrest. Patient was not able to provide any history an there was no family member at the bedside. Patient was last known well at 0940 am according to family's report to EMS. Patient was found unresponsive 0950. EMS discovered patient at 0958 apneic, unresponsive. Patient was pulseless. Asystole was the intial rhythm. Patient received chest compressions for 15 minutes. Patient received two doses of epinephrine. Patient also received naloxone. Per EMS intial blood sugar was in the 200s range. Patient was intubated in the field. After 15 minutes of ACLS, ROSC achieved. Currently patient is intubated, on vent and admitted to ICU. CXR showed bilateral pneumonia. Labs significant for Creat 3.4 and BUN 56. Nephrology was consulted for further evaluation and treatment of FLORIDALMA and hyperkalemia. Past History Past Medical History: diabetes, GERD, heart failure, hypertension, renal failure, other (See HPI) Past Surgical History: hysterectomy Social history: , lives with family. denies: smoking, alcohol abuse, prescription drug abuse Family history: diabetes, hypertension Medications and Allergies Allergies Allergy/AdvReac Type Severity Reaction Status Date / Time No Known Allergies Allergy Verified 07/31/18 07:06 Home Medications Medication Instructions Recorded Confirmed Last Taken Type Albuterol Mdi (or & Nicu Only) 2 puff IH QID PRN #1 inhalation 08/07/18 03/14/20 Unknown Rx [ProAir HFA Inhaler] Sucralfate [Carafate] 1 gm PO ACHS #30 tablet 08/07/18 03/14/20 03/13/20 Rx Insulin Regular, Human [HumuLIN R] 0 unit SQ AC #1 vial 08/11/18 03/14/20 Unknown Rx Labetalol HCl [Labetalol 300mg TAB] 300 mg PO BID #60 tablet 11/11/19 03/14/20 03/14/20 Rx Furosemide [Lasix TAB] 80 mg PO DAILY #14 tablet 03/27/20 Unknown Rx Insulin Glargine [Lantus VIAL] 15 units SUB-Q QAM #1 vial 03/27/20 Unknown Rx amLODIPine 10 mg PO QDAY #30 tablet 03/27/20 Unknown Rx Active Meds: Active Medications Albuterol (Albuterol 2.5 Mg/3 Ml Nebu) 2.5 mg IH Q3HRT PRN PRN Reason: Shortness Of Breath Lipase/Protease/Amylase (Lipase 10,500/Protease 25,000/Amylase 43,750 (Units) Dr Gu) 1 each FEEDTUBE PRN PRN PRN Reason: For Clogged Feeding Tube Aspirin (Aspirin 81 Mg Tab Chew) 81 mg PO QDAY TERA Atorvastatin Calcium (Atorvastatin 40 Mg Tab) 40 mg PO QHS TERA Azithromycin (Azithromycin 250 Mg Tab) 250 mg PO QDAY TERA; Protocol Dextrose (Dextrose 50% In Water (25gm) 50 Ml Syringe) 50 ml IV Q30MIN PRN; Protocol PRN Reason: Hypoglycemia Famotidine (Famotidine 20 Mg/2 Ml Inj) 20 mg IV DAILY TERA Hydralazine HCl (Hydralazine 20 Mg/1 Ml Inj) 10 mg IV Q4HR PRN PRN Reason: Blood Pressure Last Admin: 08/26/20 11:40 Dose: 10 mg Documented by: Hydrophilic Ointment (Lip Therapy Vaseline) 1 applic TP Q2HR PRN PRN Reason: Dry Lips Last Admin: 08/25/20 11:57 Dose: 1 applic Documented by: Levetiracetam 500 mg/ Dextrose 105 mls @ 400 mls/hr IV Q12HR TERA Last Admin: 08/26/20 11:10 Dose: 400 mls/hr Documented by: Propofol (Diprivan 10 Mg/Ml) 1,000 mg in 100 mls @ 2.838 mls/hr IV TITR TERA; Protocol Last Admin: 08/26/20 13:07 Dose: 35 mcg/kg/min, 19.866 mls/hr Documented by: Midazolam HCl 100 mg/ Sodium (Chloride) 100 mls @ 1 mls/hr IV TITR TERA; Protocol Last Titration: 08/26/20 09:14 Dose: 2 mg/hr, 2 mls/hr Documented by: Ceftriaxone Sodium (Rocephin/Ns 2 Gm/100 Ml) 2 gm in 100 mls @ 200 mls/hr IV Q24H TERA; Protocol Last Admin: 08/26/20 11:09 Dose: 200 mls/hr Documented by: Insulin Human Lispro (Insulin Lispro 100 Unit/Ml) 0 unit SUB-Q ACHS [facility]; Protocol Last Admin: 08/26/20 13:09 Dose: 2 unit Documented by: Midazolam HCl (Midazolam 2 Mg/2 Ml Inj) 2 mg IV Q10MIN PRN PRN Reason: for control seizures Multi-Ingred Cream/Lotion/Oil/Oint (Mineral Oil/Petrolatum, White Ophth Oint 3.5 Gm) 1 applic OU Q4HR PRN PRN Reason: Dry Eye(s) Senna/Docusate Sodium (Sennosides/Docusate Sodium 8.6/50 Mg Tab) 1 tab FEEDTUBE BID [facility] Last Admin: 08/26/20 09:15 Dose: 1 tab Documented by: Simple Syrup (Simple Syrup 15 Ml) 15 ml FEEDTUBE PRN PRN PRN Reason: Hypoglycemia Simple Syrup (Simple Syrup 15 Ml) 30 ml FEEDTUBE PRN PRN PRN Reason: Hypoglycemia Sodium Bicarbonate (Sodium Bicarbonate 325 Mg Tab) 325 mg FEEDTUBE PRN PRN PRN Reason: For Clogged Feeding Tube Sodium Chloride (Sodium Chloride 0.9% 10 Ml Flush Syringe) 10 ml IV BID [facility] Last Admin: 08/26/20 09:16 Dose: 10 ml Documented by: Sodium Chloride (Sodium Chloride 0.9% 10 Ml Flush Syringe) 10 ml IV PRN PRN PRN Reason: LINE FLUSH Last Admin: 08/26/20 01:50 Dose: 10 ml Documented by: Review of Systems ROS unobtainable: due to mental status Exam - Vital Signs Vital signs: Vital Signs Pulse Resp Pulse Ox 53 L 16 95 08/25/20 10:42 08/25/20 10:42 08/25/20 10:42 Results - Lab Results 08/26/20 05:04 08/26/20 05:04 Most recent lab results ABG pH 7.433 (7.320-7.450) 08/26/20 04:14 ABG O2 Saturation 98.7 (0-100) 08/26/20 04:14 Calcium 8.3 mg/dL (8.4-10.2) L 08/26/20 05:04 Assessment and Plan 1. Acute kidney injury: Vasomotor FLORIDALMA superimposed on CKD stage 4 in the setting Cardiac arrest. Low FeNa. CT abdomen negative for hydro. Monitor renal function. Renal prognosis is guarded. Avoid nephrotoxic agents. Meds dosage based on GFR. Monitor for [employer]CE[employer] EXPORT AGENT needs. No acute indication for [employer]CE[employer] EXPORT AGENT today. 2. FEN: Hyperkalemia, improved. Metabolic acidosis, improving. Monitor lytes. 3. Acute respiratory failure with hypoxia: 2/2 b/p pneumonia. Covid test negative. Intubated, on vent. Abx for CAP. Pulmonary consulted. 4. S/p OOH Cardiac arrest: Monitor. Cards consulted. 5. Diabetes mellitus type 2: Follow blood glucose. 6. Hypertension: Monitor BP. 7. Anemia, POA: Monitor. Subjective: Patient was seen and examined at the bedside. Examination: General appearance: well-developed, well-nourished, appears stated age, intubated, on vent HEENT: ATNC Neck: supple Respiratory: coarse breath sounds Cardiology: regular, S1S2, no murmur Gastrointestinal: soft, bowel sounds heard, not tender Integumentary: no rash, warm and dry Neurologic: not responding Ext: no edema : Christina catheter
--- NOTE | 2020-08-26 16:48 | Consultation ---
History of Present Illness Consult date: 08/26/20 Requesting physician: ROSALVA CAMARILLO Reason for consult: other (Cardiac Arrest with [facility]; AHRF on MVS) History of present illness: PULMONARY/CCM CONSULT NOTE (Full dictation # [id number]) Please see dictated notes for full details Past History Past Medical History: diabetes, GERD, heart failure, hypertension, other (See HPI) Past Surgical History: hysterectomy Social history: , lives with family. denies: smoking, alcohol abuse, prescription drug abuse Family history: diabetes, hypertension Medications and Allergies Allergies Allergy/AdvReac Type Severity Reaction Status Date / Time No Known Allergies Allergy Verified 07/31/18 07:06 Home Medications Medication Instructions Recorded Confirmed Last Taken Type Albuterol Mdi (or & Nicu Only) 2 puff IH QID PRN #1 inhalation 08/07/18 03/14/20 Unknown Rx [ProAir HFA Inhaler] Sucralfate [Carafate] 1 gm PO ACHS #30 tablet 08/07/18 03/14/20 03/13/20 Rx Insulin Regular, Human [HumuLIN R] 0 unit SQ AC #1 vial 08/11/18 03/14/20 Unknown Rx Labetalol HCl [Labetalol 300mg TAB] 300 mg PO BID #60 tablet 11/11/19 03/14/20 03/14/20 Rx Furosemide [Lasix TAB] 80 mg PO DAILY #14 tablet 03/27/20 Unknown Rx Insulin Glargine [Lantus VIAL] 15 units SUB-Q QAM #1 vial 03/27/20 Unknown Rx amLODIPine 10 mg PO QDAY #30 tablet 03/27/20 Unknown Rx Active Meds: Active Medications Albuterol (Albuterol 2.5 Mg/3 Ml Nebu) 2.5 mg IH Q3HRT PRN PRN Reason: Shortness Of Breath Lipase/Protease/Amylase (Lipase 10,500/Protease 25,000/Amylase 43,750 (Units) Dr Gu) 1 each FEEDTUBE PRN PRN PRN Reason: For Clogged Feeding Tube Aspirin (Aspirin 81 Mg Tab Chew) 81 mg PO QDAY TERA Atorvastatin Calcium (Atorvastatin 40 Mg Tab) 40 mg PO QHS TERA Azithromycin (Azithromycin 250 Mg Tab) 250 mg PO QDAY TERA; Protocol Dextrose (Dextrose 50% In Water (25gm) 50 Ml Syringe) 50 ml IV Q30MIN PRN; Protocol PRN Reason: Hypoglycemia Famotidine (Famotidine 20 Mg/2 Ml Inj) 20 mg IV DAILY TERA Hydralazine HCl (Hydralazine 20 Mg/1 Ml Inj) 10 mg IV Q4HR PRN PRN Reason: Blood Pressure Last Admin: 08/26/20 11:40 Dose: 10 mg Documented by: Hydrophilic Ointment (Lip Therapy Vaseline) 1 applic TP Q2HR PRN PRN Reason: Dry Lips Last Admin: 08/25/20 11:57 Dose: 1 applic Documented by: Levetiracetam 500 mg/ Dextrose 105 mls @ 400 mls/hr IV Q12HR TERA Last Admin: 08/26/20 11:10 Dose: 400 mls/hr Documented by: Propofol (Diprivan 10 Mg/Ml) 1,000 mg in 100 mls @ 2.838 mls/hr IV TITR TERA; Protocol Last Admin: 08/26/20 13:07 Dose: 35 mcg/kg/min, 19.866 mls/hr Documented by: Midazolam HCl 100 mg/ Sodium (Chloride) 100 mls @ 1 mls/hr IV TITR TERA; Protocol Last Titration: 08/26/20 09:14 Dose: 2 mg/hr, 2 mls/hr Documented by: Ceftriaxone Sodium (Rocephin/Ns 2 Gm/100 Ml) 2 gm in 100 mls @ 200 mls/hr IV Q24H TERA; Protocol Last Admin: 08/26/20 11:09 Dose: 200 mls/hr Documented by: Insulin Human Lispro (Insulin Lispro 100 Unit/Ml) 0 unit SUB-Q ACHS TERA; Protocol Last Admin: 08/26/20 13:09 Dose: 2 unit Documented by: Midazolam HCl (Midazolam 2 Mg/2 Ml Inj) 2 mg IV Q10MIN PRN PRN Reason: for control seizures Multi-Ingred Cream/Lotion/Oil/Oint (Mineral Oil/Petrolatum, White Ophth Oint 3.5 Gm) 1 applic OU Q4HR PRN PRN Reason: Dry Eye(s) Senna/Docusate Sodium (Sennosides/Docusate Sodium 8.6/50 Mg Tab) 1 tab FEEDTUBE BID TERA Last Admin: 08/26/20 09:15 Dose: 1 tab Documented by: Simple Syrup (Simple Syrup 15 Ml) 15 ml FEEDTUBE PRN PRN PRN Reason: Hypoglycemia Simple Syrup (Simple Syrup 15 Ml) 30 ml FEEDTUBE PRN PRN PRN Reason: Hypoglycemia Sodium Bicarbonate (Sodium Bicarbonate 325 Mg Tab) 325 mg FEEDTUBE PRN PRN PRN Reason: For Clogged Feeding Tube Sodium Chloride (Sodium Chloride 0.9% 10 Ml Flush Syringe) 10 ml IV BID TERA Last Admin: 08/26/20 09:16 Dose: 10 ml Documented by: Sodium Chloride (Sodium Chloride 0.9% 10 Ml Flush Syringe) 10 ml IV PRN PRN PRN Reason: LINE FLUSH Last Admin: 08/26/20 01:50 Dose: 10 ml Documented by: Physical Examination Vital signs: Vital Signs Pulse Resp Pulse Ox 53 L 16 95 08/25/20 10:42 08/25/20 10:42 08/25/20 10:42 Results - Laboratory Findings CBC and BMP: 08/26/20 05:04 08/26/20 05:04 ABG ABG pH 7.433 (7.320-7.450) 08/26/20 04:14 POC ABG pCO2 34.4 mmHg (32.0-48.0) 08/26/20 04:14 POC ABG pO2 131.3 mmHg (83-108) H 08/26/20 04:14 POC ABG HCO3 22.5 08/26/20 04:14 ABG O2 Saturation 98.7 (0-100) 08/26/20 04:14 PT/INR, D-dimer D-Dimer > 23697 ng/mlDDU (0-234) H 08/25/20 11:23 Abnormal lab findings: Abnormal Labs 08/25/20 08/25/20 08/25/20 11:14 11:17 11:23 WBC 11.5 H RBC 3.22 L Hgb 8.6 L Hct 27.6 L MCH 27 L RDW 15.6 H Seg Neuts % (Manual) 89.0 H Lymphocytes % (Manual) 5.0 L Seg Neutrophils # Man 10.2 H Lymphocytes # (Manual) 0.6 L D-Dimer ABG pH 7.290 L POC ABG pO2 161.1 H ABG Hemoglobin 8.9 L ABG Oxyhemoglobin 98.6 H ABG Sodium 135.2 L ABG Potassium 5.9 H ABG Glucose 210 H Carboxyhemoglobin 0.4 L Potassium Carbon Dioxide BUN Creatinine Glucose POC Glucose Lactic Acid Calcium AST ALT Troponin T Total Protein Albumin Arterial Blood Glucose 210 H Arterial Blood Ionized Calcium 4.4 L Urine WBC (Auto) 31.0 H 08/25/20 08/25/20 08/25/20 11:23 11:23 11:23 WBC RBC Hgb Hct MCH RDW Seg Neuts % (Manual) Lymphocytes % (Manual) Seg Neutrophils # Man Lymphocytes # (Manual) D-Dimer > 50068 H ABG pH POC ABG pO2 ABG Hemoglobin ABG Oxyhemoglobin ABG Sodium ABG Potassium ABG Glucose Carboxyhemoglobin Potassium 6.4 H* Carbon Dioxide 21 L BUN 52 H Creatinine 3.5 H Glucose 194 H POC Glucose Lactic Acid 3.30 H* Calcium 8.1 L AST 103 H ALT 77 H Troponin T 0.057 H Total Protein 5.8 L Albumin 3.4 L Arterial Blood Glucose Arterial Blood Ionized Calcium Urine WBC (Auto) 08/25/20 08/25/20 08/25/20 13:51 15:45 20:34 WBC RBC Hgb Hct MCH RDW Seg Neuts % (Manual) Lymphocytes % (Manual) Seg Neutrophils # Man Lymphocytes # (Manual) D-Dimer ABG pH POC ABG pO2 66.3 L ABG Hemoglobin 9.1 L ABG Oxyhemoglobin 92.5 L ABG Sodium ABG Potassium ABG Glucose 225 H Carboxyhemoglobin Potassium Carbon Dioxide BUN Creatinine Glucose POC Glucose 188 H 233 H Lactic Acid Calcium AST ALT Troponin T Total Protein Albumin Arterial Blood Glucose 225 H Arterial Blood Ionized Calcium 4.4 L Urine WBC (Auto) 08/26/20 08/26/20 08/26/20 04:14 05:04 05:04 WBC 17.9 H RBC 3.05 L Hgb 8.3 L Hct 25.6 L MCH 27 L RDW 15.3 H Seg Neuts % (Manual) 96.0 H Lymphocytes % (Manual) 1.0 L Seg Neutrophils # Man 17.2 H Lymphocytes # (Manual) 0.2 L D-Dimer ABG pH POC ABG pO2 131.3 H ABG Hemoglobin 8.6 L ABG Oxyhemoglobin 98.2 H ABG Sodium ABG Potassium ABG Glucose 182 H Carboxyhemoglobin 0.2 L Potassium Carbon Dioxide BUN 56 H Creatinine 3.4 H Glucose 187 H POC Glucose Lactic Acid Calcium 8.3 L AST 54 H ALT 57 H Troponin T Total Protein 5.4 L Albumin 2.9 L Arterial Blood Glucose 182 H Arterial Blood Ionized Calcium 4.3 L Urine WBC (Auto) 08/26/20 08/26/20 08/26/20 05:40 07:36 11:54 WBC RBC Hgb Hct MCH RDW Seg Neuts % (Manual) Lymphocytes % (Manual) Seg Neutrophils # Man Lymphocytes # (Manual) D-Dimer ABG pH POC ABG pO2 ABG Hemoglobin ABG Oxyhemoglobin ABG Sodium ABG Potassium ABG Glucose Carboxyhemoglobin Potassium Carbon Dioxide BUN Creatinine Glucose POC Glucose 179 H 171 H 190 H Lactic Acid Calcium AST ALT Troponin T Total Protein Albumin Arterial Blood Glucose Arterial Blood Ionized Calcium Urine WBC (Auto) 08/26/20 15:14 WBC RBC Hgb Hct MCH RDW Seg Neuts % (Manual) Lymphocytes % (Manual) Seg Neutrophils # Man Lymphocytes # (Manual) D-Dimer ABG pH POC ABG pO2 ABG Hemoglobin ABG Oxyhemoglobin ABG Sodium ABG Potassium ABG Glucose Carboxyhemoglobin Potassium Carbon Dioxide BUN Creatinine Glucose POC Glucose 158 H Lactic Acid Calcium AST ALT Troponin T Total Protein Albumin Arterial Blood Glucose Arterial Blood Ionized Calcium Urine WBC (Auto)
[2020-08-26] MEDS ORDERED: fentaNYL 100 MCG/2 ML INJ IV PRN (17:11)
[2020-08-26] MEDS: FUROSEMIDE 40 MG/4 ML INJ IV SCH (17:46)
[2020-08-26] MEDS: fentaNYL DRIP Premix 2,000 MCG/100 ML BAG IV SCH (17:49)
[2020-08-26 18:16] LABS: Creatinine,Urine 67.4 mg/dL (0.1-20.0)
[2020-08-26] MEDS ORDERED: DEXTROSE 50% IN WATER (25GM) 50 ML SYRINGE IV PRN (19:18)
[2020-08-26] MEDS: HEPARIN 5,000 UNIT/1 ML VIAL SUB-Q SCH (21:22)
--- NOTE | 2020-08-26 22:41 | Consultation ---
DATE OF CONSULTATION: 08/26/2020 CARDIOLOGY CONSULTATION REFERRING PHYSICIAN: Hospitalist tom. The patient is seen in room #255. HISTORY OF PRESENT ILLNESS: The patient is a 75-year-old female with obesity hypoventilation syndrome, diabetes, heart failure, hypertension, chronic respiratory failure on home O2, was found down at home, unknown downtime, was in asystole when brought to the emergency room. Return of spontaneous circulation after ACLS protocol. The patient is intubated and sedated. Recent admission from 03/23 is also reviewed. At that time, the patient was discharged with COVID pneumonia and placed at LTAC on home O2. She is now sedated, intubated, and unresponsive. She is on no pressors. PAST MEDICAL HISTORY: As per chart. Diabetes, GERD. Her last echocardiogram was 08/16/2018. This revealed ejection fraction of 50%-55%, mild LVH, [id number] pulmonary hypertension. Echocardiogram from 08/25/2020 revealed EF of 40%-45%, [id number] pulmonary hypertension. EKG reveals sinus bradycardia, heart rate of 57, nonspecific ST-T wave changes. PHYSICAL EXAMINATION: VITAL SIGNS: She is in sinus rhythm at this point. Blood pressure is 150s/60s. O2 sat is 99% on ventilator. HEENT: Sclerae are anicteric. PERRLA. NECK: Supple no masses. CHEST: Decreased breath sounds at bilateral bases. Overall, moderate air movement. CARDIAC: Regular rhythm, S1, S2. ABDOMEN: Soft, nontender, nondistended. Normoactive bowel sounds in all 4 quadrants. EXTREMITIES: No cyanosis, clubbing, or edema. Good peripheral pulses. SKIN: Dry and intact. No rashes. LABORATORY DATA: EKG is aforementioned. Hemoglobin is 8.3, hematocrit 25.6, WBC is 17.9, platelets are 188. Potassium is 4.6, was 6.4 initially. Creatinine is 3.4. glucose 187. Troponin is 0.057. Chest x-ray shows bilateral severe airspace disease. ASSESSMENT AND PLAN: In summary, the patient is a 75-year-old female with acute cardiopulmonary arrest with asystole of unclear etiology. EKG and troponin are unremarkable at this time. Echocardiogram is reviewed. This may very well be a primary pulmonary event, but we will follow along. Her cardiac status is acceptable at this time. Pulmonary critical care consultation is pending. Thank you for this consultation. We will follow along. TID: [id number] RECEIPT: [id number] SBM/VIS
--- NOTE | 2020-08-27 00:21 | Consultation ---
DATE OF CONSULTATION: 08/26/2020 PULMONARY CRITICAL CARE CONSULTATION DATE OF CONSULTATION: 08/26/2020. CONSULTING PHYSICIAN: Dr. Fernando Rodriguez. REASON FOR CONSULTATION: Cardiac arrest with return of spontaneous circulation, acute hypoxemic respiratory failure, on mechanical ventilatory support. CHIEF COMPLAINT/HISTORY OF PRESENT ILLNESS: The patient is a 75-year-old female with past medical history significant amongst other things both for a diagnosis of diabetes, but also obesity hypoventilation syndrome and chronic hypoxemic respiratory failure, on baseline home oxygen of 3 liters nasal cannula, presented to the Emergency Department. According to the EMS, she was in her usual state of health at awakening from sleep around 8:00 a.m. on the morning of presentation. An hour later, she was found down and unresponsive. EMS found the patient with asystole arrest. ACLS protocol was started. There was return of spontaneous circulation. In the Emergency Room, she was diagnosed with acute hypoxemic respiratory failure. She was intubated, placed on mechanical ventilatory support. A chest x-ray revealed bilateral pneumonia. She was also diagnosed with systemic inflammatory response syndrome. She was admitted to the intensive care unit on the pneumonia protocol. We are asked to assist with management. When I stopped by to see her, she was resting in bed. She was sedated, I believe she was on Versed and propofol at that time. Well sedated to a scale of at least about -1 to -2. I do not have any history of vomiting or overt aspiration, although I cannot rule out that out. Family had denied tobacco use or abuse. The above is as much of the history of presentation as I have. PAST MEDICAL HISTORY: Obesity hypoventilation syndrome, chronic hypoxemic respiratory failure, diabetes, congestive heart failure, gastroesophageal reflux disease, hypertension. She is obese. PAST SURGICAL HISTORY: She has had a hysterectomy. MEDICATIONS: She was on at the time I stopped by to see her, according to the medication included the following: Albuterol 2.5 mg nebulized q.3h hours p.r.n. shortness of breath. Baby aspirin 81 mg p.o. daily, all p.o. meds via the feeding tube. Lipitor 40 mg p.o. at bedtime, Zithromax 250 mg p.o. daily, Rocephin 2 grams IV daily, Pepcid 20 mg IV daily, hydralazine 10 mg IV q. 4 hours p.r.n. elevated blood pressure, insulin via sliding scale. Versed drip was going at 2 mg per hour, propofol was going at 35 mcg per kilogram per minute. Docusate senna, docusate 1 tablet p.o. b.i.d. ALLERGIES: No known drug allergies. DIET: Obese lady, acute weight loss or gain history is unknown. FAMILY AND SOCIAL HISTORY: Lives in the community. , lives with her family. Family had denied alcohol, tobacco, or illicit drug use or abuse. There is a family history of diabetes and hypertension. REVIEW OF SYSTEMS: Unobtainable secondary to patient's medical and mental condition. Since she has been here, no gross hematochezia or melena, no gross hematuria, no bloody tracheal secretions, no witnessed seizures. No hematemesis. Review of systems is otherwise unobtainable or as in the body of the history above. PHYSICAL EXAMINATION: VITAL SIGNS: At presentation in the Emergency Room first vital temperature I have 97.5 rectally, pulse was 53, respiratory rate was 16, blood pressure was 159/69, O2 sats were 95%, inspired oxygen concentration at that time was not recorded. When I stopped by to see her, O2 sats were 98% that was on the assist control mode of ventilation, rate of 18, tidal volume 450, PEEP, I believe of 6 on 40% FiO2. GENERAL: Elderly looking, obese female. Normocephalic, atraumatic, looks her stated age, resting in bed without significant patient-ventilator dyssynchrony. HEENT: Anicteric, no conjunctival erythema. Oropharynx was moist. ET tube was taped around 24 cm at the lip. NECK: No gross jugular venous distention, no thyromegaly. Grossly, there were no palpable lymph nodes in the supraclavicular or submandibular lymph node chains. LUNGS: Auscultation of both lung nair, good bilateral breath sounds. Occasional basilar rhonchi, no wheezing. HEART: Sounds 1 and 2 are heard at the time of my evaluation, regular rate and rhythm without overt rubs or murmurs. ABDOMEN: Soft, full, bowel sounds are positive, nontender, no palpable hepatosplenomegaly. EXTREMITIES: Without overt digital clubbing or cyanosis, no pedal edema. Pedal pulses are 2+ bilaterally. NEUROLOGIC: Pupils are equal, round, about 3 mm, very sluggishly reactive to light. Extraocular muscle movements cannot be assessed. She did not have any spontaneous movements for me or follow commands while I was in the room and she was on sedation. SKIN: Normal turgor in the areas I examined without overt cellulitis or rash. Please see the wound care nurses' notes for full description of her skin. PSYCHIATRIC: Mood and affect could not be assessed. She was sedated. LABORATORY DATA: From my review as follows: Admission white cell count 11,500, hemoglobin 8.6, hematocrit 27.6, platelet count was 212. No significant band forms on the manual differential. No parasites seen. D-dimer was greater than 10,000. Arterial blood gas showed a pH of 7.29, pCO2 of 42, pO2 of 161 that was on 70% FIO2. Today on the above-mentioned ventilator settings, ABG 7.4 on the pH 7.43, pCO2 of 34, pO2 of 131 on 70% FiO2 at that time on the above-mentioned vent settings. Presentation serum sodium was 138, potassium was 6.4, chloride 104, bicarbonate was 21, BUN was 52. Creatinine was 3.5, glucose was 194. Lactic acid level was up at 3.3, AST was 103, ALT 77. Troponin up at 0.057, albumin 3.4, otherwise liver function test within normal limits. LDL cholesterol 101. Lactic acid is now within level normal limits. Urinalysis, small blood, negative for nitrites and leukocyte esterase. She did have 31 white cells per high power field. She has had coronavirus PCR testing was negative. Two sets of blood cultures, tracheal aspirate urine cultures no growth to date. Radiographic studies have been reviewed. I have also reviewed the radiologist's interpretation. A CT scan of the head was done, it was read as no CT evidence of an acute abnormality. Presentation chest x-ray shows diffuse bilateral infiltrates, cardiomegaly. The film is rotated to the left. Most recent chest x-ray continues to show diffuse bilateral infiltrates. I cannot rule out small bilateral pleural effusions. There is gross cardiomegaly. ET tube tip is at the level of the aortic knob. No gross pneumothorax, no gross bony fractures that I can see. The infiltrates appear to be slowly improving. She has had an echocardiogram that shows EF of 40-45% with right ventricular systolic pressures elevated at 45 mmHg. ASSESSMENT: 1. Acute hypoxemic respiratory failure, now on mechanical ventilatory support. 2. Cardiac arrest with return of spontaneous circulation. 3. Acute encephalopathy, toxic metabolic versus anoxic. 4. Multifocal pneumonia. 5. Possible bilateral pulmonary edema. 6. Congestive heart failure with an acute exacerbation. 7. Anemia, that is normocytic. 8. Hyperkalemia, now resolved. 9. Lactic acidosis, resolved. 10. Acute kidney injury, possible chronic component. 11. Elevated serum transaminases. 12. Non-ST elevation MA. 13. Oropharyngeal dysphagia. PLAN: We will keep her on full mechanical ventilatory support in the short time. Ventilator-associated pneumonia bundle has been introduced. Oxygen will be weaned to keep sats greater than or equal to about 90%. Aspiration precautions will be maintained. Blood pressure is pretty decent. She is not on any vasopressors. I do believe that she will benefit from diuresis as I do feel that some of this infiltrates, probably pulmonary edema, either as a result of renal failure, congestive heart failure or both. I do note that Nephrology consultation has been placed. I will order urine electrolytes. Calculated fractional excretion of sodium. In the meantime, I will start her on Lasix 40 mg IV b.i.d. for 4 doses and see how she responds and to follow her BUN and creatinine at that time. Empiric community-acquired pneumonia therapy will also be continued. Azithromycin will be increased to 500 mg daily and she will get 3 to 5 days of treatment on azithromycin and 5 days of Rocephin. She is appropriately on GI prophylaxis. She will be placed on DVT prophylaxis with heparin. Enteral nutrition will be the feeding modality of choice. A follow azotemia management will be deferred to the insulation machine operator. Neurology consultation is appropriate. It will be deferred to the attending physician. Flu and pneumonia vaccination will be addressed per protocol. Cardiology consultation will also be of benefit for management of her congestive heart failure. Non-ST elevation myocardial infarction. Thank you very much for the consult. We will follow along and make further recommendations as picture progresses/becomes clearer. She is critically ill on life-sustaining interventions including mechanical ventilatory support at very high risk of from cardiopulmonary system decompensation. At this time, I spent about 35-40 minutes of critical care time without overlap and excluding any procedural time that may be necessary. TID: [id number] RECEIPT: [id number] PAOLA/KRISTI
--- NOTE | 2020-08-27 04:22 | XRay Report ---
CHEST 1 VIEW INDICATION / CLINICAL INFORMATION: follow up respiratory failure. FINDINGS: SUPPORT DEVICES: No significant change in position. HEART / MEDIASTINUM: The cardiomediastinal silhouette has not significantly changed in the interim. LUNGS / PLEURA: Bilateral airspace disease has not significantly improved yesterday's exam. Worsening lung volumes. Signer Name: Luis Taylor MD Signed: 08/27/2020 4:18 AM Workstation Name: [id number]
[2020-08-27] MEDS: FUROSEMIDE 40 MG/4 ML INJ IV SCH ×2 (05:54→18:00)
[2020-08-27] MEDS: INSULIN LISPRO 100 UNIT/ML SUB-Q SCH ×3 (07:33→17:44)
[2020-08-27 07:48] LABS: Basophils % (Auto) 0.4 % (0.0-1.8); Eosinophils # (Auto) 0.3 K/mm3 (0.0-0.4); Eosinophils % (Auto) 2.2 % (0.0-4.3); Hematocrit 24.4 % (30.3-42.9); Hemoglobin 8.1 gm/dl (10.1-14.3); Lymphocytes # (Auto) 0.8 K/mm3 (1.2-5.4); Lymphocytes % (Auto) 5.9 % (13.4-35.0); Mean Corpuscular HGB Conc 33 % (30-34); Mean Corpuscular Volume 84 fl (79-97); Monocytes # (Auto) 0.6 K/mm3 (0.0-0.8); Monocytes % (Auto) 4.6 % (0.0-7.3); Platelet Count 190 K/mm3 (140-440); Red Blood Count 2.92 M/mm3 (3.65-5.03); Red Cell Distribution Width 15.4 % (13.2-15.2)
[2020-08-27 08:56] LABS: Albumin 2.6 g/dL (3.9-5); Calcium 8.5 mg/dL (8.4-10.2)
[2020-08-27] MEDS: HEPARIN 5,000 UNIT/1 ML VIAL SUB-Q SCH ×2 (09:10→21:17)
[2020-08-27] MEDS: SENNOSIDES/DOCUSATE SODIUM 8.6/50 MG TAB FEEDTUBE SCH ×2 (09:13→21:17)
[2020-08-27] MEDS: ASPIRIN 81 MG TAB CHEW PO SCH (09:13)
[2020-08-27] MEDS: levETIRAcetam 500 MG in DEXTROSE 5% IN WATER 100 ML IV SCH ×3 (09:14→21:17)
--- NOTE | 2020-08-27 09:20 | Progress Note ---
Assessment and Plan 1. Acute kidney injury: Vasomotor FLORIDALMA superimposed on CKD stage 4 in the setting Cardiac arrest. Low FeNa. CT abdomen negative for hydro. Monitor renal function. Creatinine leveled off. Renal prognosis is guarded. Avoid nephrotoxic agents. Meds dosage based on GFR. Monitor for PSYCHIATRIC ASSISTANT needs. No acute indication for PSYCHIATRIC ASSISTANT today. 2. FEN: Hyperkalemia, improved. Metabolic acidosis, improved. Monitor lytes. 3. Acute respiratory failure with hypoxia: 2/2 b/p pneumonia. Covid test negative. Intubated, on vent. Abx for CAP. Followed by Pulmonary. 4. S/p OOH Cardiac arrest: Monitor. Followed by Cards. 5. Diabetes mellitus type 2: Follow blood glucose. 6. Hypertension: Monitor BP. 7. Anemia, POA: Monitor. Subjective: Patient was seen and examined at the bedside. Examination: General appearance: well-developed, well-nourished, appears stated age, intubated, on vent HEENT: ATNC Neck: supple Respiratory: coarse breath sounds Cardiology: regular, S1S2, no murmur Gastrointestinal: soft, bowel sounds heard, not tender Integumentary: no rash, warm and dry Neurologic: not responding Ext: no edema : Christina catheter Subjective Date of service: 08/27/20 Objective - Vital Signs Vital signs: Vital Signs - 12hr 08/26/20 08/26/20 08/26/20 21:20 21:30 21:40 Temperature Pulse Rate 59 L 61 60 Respiratory 18 18 18 Rate Blood Pressure 137/54 153/53 153/53 O2 Sat by Pulse 99 97 99 Oximetry 08/26/20 08/26/20 08/26/20 21:50 22:00 22:10 Temperature Pulse Rate 60 62 63 Respiratory 18 18 18 Rate Blood Pressure 131/51 124/55 124/55 O2 Sat by Pulse 99 99 100 Oximetry 08/26/20 08/26/20 08/26/20 22:20 22:30 22:40 Temperature Pulse Rate 64 64 64 Respiratory 18 18 18 Rate Blood Pressure 149/55 150/58 150/58 O2 Sat by Pulse 99 99 100 Oximetry 08/26/20 08/26/20 08/26/20 22:50 23:00 23:02 Temperature Pulse Rate 63 63 63 Respiratory 18 18 Rate Blood Pressure 160/58 156/60 160/58 O2 Sat by Pulse 100 99 100 Oximetry 08/26/20 08/26/20 08/26/20 23:10 23:20 23:26 Temperature Pulse Rate 62 62 63 Respiratory 18 18 18 Rate Blood Pressure 156/60 165/61 138/54 O2 Sat by Pulse 100 100 100 Oximetry 08/26/20 08/26/20 08/26/20 23:30 23:40 23:50 Temperature Pulse Rate 63 62 63 Respiratory 18 18 18 Rate Blood Pressure 167/62 167/62 169/62 O2 Sat by Pulse 100 100 100 Oximetry 08/26/20 08/26/20 08/27/20 23:56 23:57 00:00 Temperature 98.0 F Pulse Rate 63 75 Respiratory 18 18 Rate Blood Pressure 165/61 154/67 O2 Sat by Pulse 100 99 Oximetry 08/27/20 08/27/20 08/27/20 00:10 00:20 00:30 Temperature Pulse Rate 74 63 62 Respiratory 18 18 19 Rate Blood Pressure 154/67 174/72 169/64 O2 Sat by Pulse 100 100 Oximetry 08/27/20 08/27/20 08/27/20 00:40 00:50 01:00 Temperature Pulse Rate 75 63 63 Respiratory 18 18 18 Rate Blood Pressure 169/64 161/63 167/63 O2 Sat by Pulse 100 100 99 Oximetry 08/27/20 08/27/20 08/27/20 01:10 01:20 01:30 Temperature Pulse Rate 63 63 61 Respiratory 18 14 18 Rate Blood Pressure 167/63 171/62 167/68 O2 Sat by Pulse 100 98 96 Oximetry 08/27/20 08/27/20 08/27/20 01:40 01:50 02:00 Temperature Pulse Rate 61 61 61 Respiratory 18 18 18 Rate Blood Pressure 167/68 167/67 167/68 O2 Sat by Pulse 97 97 97 Oximetry 08/27/20 08/27/20 08/27/20 02:10 02:20 02:30 Temperature Pulse Rate 64 60 61 Respiratory 18 18 18 Rate Blood Pressure 167/68 171/68 169/69 O2 Sat by Pulse 98 98 Oximetry 08/27/20 08/27/20 08/27/20 02:40 02:50 03:00 Temperature Pulse Rate 61 61 62 Respiratory 18 18 18 Rate Blood Pressure 169/69 166/59 176/72 O2 Sat by Pulse 98 98 97 Oximetry 08/27/20 08/27/20 08/27/20 03:10 03:20 03:30 Temperature Pulse Rate 62 62 62 Respiratory 18 18 17 Rate Blood Pressure 176/72 176/72 173/77 O2 Sat by Pulse 98 98 96 Oximetry 08/27/20 08/27/20 08/27/20 03:35 03:40 03:50 Temperature Pulse Rate 80 82 82 Respiratory 18 18 Rate Blood Pressure 173/77 173/77 187/82 O2 Sat by Pulse 98 97 97 Oximetry 08/27/20 08/27/20 08/27/20 04:00 04:10 04:20 Temperature 98.3 F Pulse Rate 82 67 64 Respiratory 18 18 18 Rate Blood Pressure 175/87 176/72 168/72 O2 Sat by Pulse 97 97 97 Oximetry 08/27/20 08/27/20 08/27/20 04:30 04:40 04:50 Temperature Pulse Rate 67 73 64 Respiratory 18 18 18 Rate Blood Pressure 177/73 177/73 176/82 O2 Sat by Pulse 97 97 Oximetry 08/27/20 08/27/20 08/27/20 05:00 05:10 05:20 Temperature Pulse Rate 74 72 76 Respiratory 18 18 18 Rate Blood Pressure 183/85 183/85 182/73 O2 Sat by Pulse 97 97 97 Oximetry 08/27/20 08/27/20 08/27/20 05:30 05:40 05:50 Temperature Pulse Rate 73 82 83 Respiratory 18 18 18 Rate Blood Pressure 184/82 184/82 174/71 O2 Sat by Pulse 96 97 97 Oximetry 08/27/20 08/27/20 08/27/20 06:00 06:10 06:20 Temperature Pulse Rate 73 65 67 Respiratory 18 18 18 Rate Blood Pressure 190/83 190/83 183/71 O2 Sat by Pulse 97 98 97 Oximetry 08/27/20 08/27/20 08/27/20 06:30 06:40 06:50 Temperature Pulse Rate 80 77 71 Respiratory 18 18 18 Rate Blood Pressure 163/65 163/65 173/65 O2 Sat by Pulse 94 97 97 Oximetry 08/27/20 08/27/20 08/27/20 07:00 07:10 07:17 Temperature 98.0 F Pulse Rate 81 87 Respiratory 18 18 Rate Blood Pressure 162/74 183/71 O2 Sat by Pulse 96 97 Oximetry 08/27/20 08/27/2021 07:20 07:26 07:30 Temperature Pulse Rate 86 69 88 Respiratory 18 18 Rate Blood Pressure 172/77 156/61 172/77 O2 Sat by Pulse 97 97 97 Oximetry 08/27/20 08/27/20 08/27/20 07:40 07:50 08:00 Temperature Pulse Rate 88 88 79 Respiratory 18 18 18 Rate Blood Pressure 156/61 162/71 O2 Sat by Pulse 97 97 96 Oximetry 08/27/20 08:10 Temperature Pulse Rate 81 Respiratory 18 Rate Blood Pressure 162/71 O2 Sat by Pulse 98 Oximetry - Lab 08/27/20 07:24 08/27/20 07:24 Most recent lab results ABG pH 7.454 (7.320-7.450) H 08/27/20 04:10 ABG O2 Saturation 95.0 (0-100) 08/27/20 04:10 Calcium 8.5 mg/dL (8.4-10.2) 08/27/20 07:24 Urine Creatinine 67.4 mg/dL (0.1-20.0) H 08/26/20 17:00 Urine Sodium 12 mmol/L 08/26/20 17:00 Medications & Allergies - Medications Allergies/Adverse Reactions: Allergies No Known Allergies Allergy (Verified 07/31/18 07:06) Home Medications: Home Medications Medication Instructions Recorded Confirmed Last Taken Type Albuterol Mdi (or & Nicu Only) 2 puff IH QID PRN #1 inhalation 08/07/18 03/14/20 Unknown Rx [ProAir HFA Inhaler] Sucralfate [Carafate] 1 gm PO ACHS #30 tablet 08/07/18 03/14/20 03/13/20 Rx Insulin Regular, Human [HumuLIN R] 0 unit SQ AC #1 vial 08/11/18 03/14/20 Unknown Rx Labetalol HCl [Labetalol 300mg TAB] 300 mg PO BID #60 tablet 11/11/19 03/14/20 03/14/20 Rx Furosemide [Lasix TAB] 80 mg PO DAILY #14 tablet 03/27/20 Unknown Rx Insulin Glargine [Lantus VIAL] 15 units SUB-Q QAM #1 vial 03/27/20 Unknown Rx amLODIPine 10 mg PO QDAY #30 tablet 03/27/20 Unknown Rx Active Medications: Generic Name Dose Route Start Last Admin Trade Name Freq PRN Reason Stop Dose Admin Albuterol 2.5 mg 08/25/20 14:55 Albuterol 2.5 Mg/3 Ml Nebu IH Q3HRT PRN Shortness Of Breath Lipase/Protease/Amylase 1 each 08/26/20 12:15 Lipase 10,500/Protease 25,000/Amylase 43,750 (Units) Dr Gu FEEDTUBE PRN PRN For Clogged Feeding Tube Aspirin 81 mg 08/27/20 10:00 08/27/20 09:13 Aspirin 81 Mg Tab Chew PO 81 mg QDAY TERA Administration Atorvastatin Calcium 40 mg 08/26/20 22:00 08/26/20 21:22 Atorvastatin 40 Mg Tab PO 40 mg QHS TERA Administration Azithromycin 250 mg 08/27/20 10:00 08/27/20 09:17 Azithromycin 250 Mg Tab PO 250 mg QDAY TERA Administration Protocol Dextrose 50 ml 08/25/20 18:46 Dextrose 50% In Water (25gm) 50 Ml Syringe IV Q30MIN PRN Hypoglycemia Protocol Dextrose 50 ml 08/26/20 19:18 Dextrose 50% In Water (25gm) 50 Ml Syringe IV Q30MIN PRN Hypoglycemia Protocol Famotidine 20 mg 08/27/20 10:00 08/27/20 09:13 Famotidine 20 Mg/2 Ml Inj IV 20 mg DAILY TERA Administration Fentanyl 50 mcg 08/26/20 17:11 Fentanyl 100 Mcg/2 Ml Inj IV Q10MIN PRN ANALGESIA Furosemide 40 mg 08/26/20 18:00 08/27/20 05:54 Furosemide 40 Mg/4 Ml Inj IV 08/28/20 06:01 40 mg 0600,1800 TERA Administration Heparin Sodium (Porcine) 5,000 unit 08/26/20 22:00 08/27/20 09:10 Heparin 5,000 Unit/1 Ml Vial SUB-Q 5,000 unit Q12HR TERA Administration Hydralazine HCl 10 mg 08/26/20 01:20 08/26/20 11:40 Hydralazine 20 Mg/1 Ml Inj IV 10 mg Q4HR PRN Administration Blood Pressure Hydrophilic Ointment 1 applic 08/25/20 11:07 08/25/20 11:57 Lip Therapy Vaseline TP 1 applic Q2HR PRN Administration Dry Lips Levetiracetam 500 mg/ Dextrose 105 mls @ 400 mls/hr 08/26/20 10:00 08/27/20 09:15 IV 400 mls/hr Q12HR TERA Administration Propofol 1,000 mg in 100 mls @ 2.838 mls/hr 08/25/20 20:48 08/27/20 06:37 Diprivan 10 Mg/Ml IV 35 mcg/kg/min TITR TERA 19.866 mls/hr Administration Protocol 5 MCG/KG/MIN Ceftriaxone Sodium 2 gm in 100 mls @ 200 mls/hr 08/26/20 11:00 08/26/20 11:09 Rocephin/Ns 2 Gm/100 Ml IV 200 mls/hr Q24H TERA Administration Protocol Fentanyl Citrate 2,000 mcg in 100 mls @ 4.605 mls/hr 08/26/20 18:00 08/26/20 17:49 Fentanyl Drip Premix IV 1 mcg/kg/hr TITR TERA 4.605 mls/hr Administration Protocol 1 MCG/KG/HR Insulin Human Lispro 0 unit 08/27/20 12:00 Insulin Lispro 100 Unit/Ml SUB-Q Q6HR TERA Protocol Multi-Ingred Cream/Lotion/Oil/Oint 1 applic 08/25/20 11:07 Mineral Oil/Petrolatum, White Ophth Oint 3.5 Gm OU Q4HR PRN Dry Eye(s) Senna/Docusate Sodium 1 tab 08/25/20 22:00 08/27/20 09:13 Sennosides/Docusate Sodium 8.6/50 Mg Tab FEEDTUBE 1 tab BID TERA Administration Simple Syrup 15 ml 08/26/20 12:15 Simple Syrup 15 Ml FEEDTUBE PRN PRN Hypoglycemia Simple Syrup 30 ml 08/26/20 12:15 Simple Syrup 15 Ml FEEDTUBE PRN PRN Hypoglycemia Sodium Bicarbonate 325 mg 08/26/20 12:15 Sodium Bicarbonate 325 Mg Tab FEEDTUBE PRN PRN For Clogged Feeding Tube Sodium Chloride 10 ml 08/25/20 22:00 08/27/20 09:15 Sodium Chloride 0.9% 10 Ml Flush Syringe IV 10 ml BID TERA Administration Sodium Chloride 10 ml 08/25/20 14:55 08/26/20 01:50 Sodium Chloride 0.9% 10 Ml Flush Syringe IV 10 ml PRN PRN Administration LINE FLUSH
[2020-08-27] MEDS ORDERED: AZITHROMYCIN 250 MG TAB PO SCH (10:00)
[2020-08-27] MEDS ORDERED: FAMOTIDINE 20 MG/2 ML INJ IV SCH (10:00)
--- NOTE | 2020-08-27 11:09 | Progress Note ---
Assessment and Plan Assessment and plan: 75 YO Female with Obesity Hypoventilation Syndrome, DM, CHF, GERD, HTN, Chronic Respiratory Failure on Home Oxygen @3L NC presents to ED for evaluation. Patient is intubated and on ventilatory support at the time of my evaluation and unable to provide history. Patient history provided by EMS staff, ED staff, as well as patient's family who was made available by telephone interview. As per family the patient was in her usual state of health upon awakening from sleep around 0830 hrs. The patient was found down and unresponsive at 0950 hrs. EMS was notified and upon arrival the patient was found to be unresponsive and asystolic arrest. Patient treated" with ACLS protocol with eventual return of perfusing cardiac rhythm. Patient subsequently transported to [facility] for further care and evaluation of the aforementioned symptoms. The patient was seen and evaluated in the emergency department. All lab and imaging studies reviewed. Patient was found to have acute hypoxemic respiratory failure and was subsequently intubated and placed on ventilatory support. Patient also underwent chest x-ray and was found to have bilateral pneumonia, as well as systemic inflammatory response syndrome. Critical care team consulted in ED. Patient admitted to ICU and initiated on pneumonia protocol. Cardiology team consulted. No further history is obtainable. Prior admission on 03/14/2020 reviewed. All medication listed at time of admission has been reconciled. Advanced care planning conducted in ED. Assessment and Plan - Patient Problems (1) Acute respiratory failure with hypoxia Current Visit: No Status: Acute Plan to address problem: Patient dependent on ventilatory support: Wean vent as tolerated, critical care team consulted in ED, sedation holiday, daily spontaneous breathing trial, daily arterial blood gas, (2) Anoxic encephalopathy Current Visit: Yes Status: Acute Plan to address problem: CT head, neuro check, supportive care, (3) Cardiac arrest Current Visit: Yes Status: Acute Plan to address problem: Patient treated" with ACLS protocol with the eventual return of perfusing cardiac rhythm. Echocardiogram ordered and is pending at time of admission, cardiology team consulted, (4) Multifocal pneumonia Current Visit: Yes Status: Acute Plan to address problem: Pneumonia protocol: Chest x-ray, CBC, CMP, IV antibiotic therapy, blood culture. 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 Patient family knowledge understanding and agreement with current care plan. Patient is full code, +30 minutes. Jhonny Payton 08/26/20 patient is seen and examined. Patient is on vent. WBC 17.9 and hemogl obin 8.3 hematocrit 25.6. Patient may have 1 episode of questionable seizure. Patient BUN is 56 creatinine 3.4. Will consult nephrology. We also start the patient on Rocephin 2 g IV daily and Zithromax. Aspirin 81 mg p.o. daily and Lipitor. Patient is having echocardiogram. Cardiology and critical care will see the patient as consult tension. Continue current management. We have started on NG tube feeding and consult nutrition for evaluation. Recheck CBC BMP in the morning. Case discussed with daughter Leena [id number] 08/27: Patient remains on full ventilatory support, considering concern for seizure yesterday under the circumstance of out of hospital cardiac arrest, and concern for anoxic encephalopathy, will proceed with Neurology consultation. The high probability of a clinically significant, sudden or life threatening deterioration of the [cardiac, pulmonary, neuro, renal, infectious disease] system(s) required my full and direct attention, intervention and personal ma kimi. The aggregate critical care time was [65] minutes. This time is in addition to time spent performing reported procedures but includes the following: [x] Data Review and interpretation [x] Patient assessment and monitoring of vital signs [x] Documentation [x] Medication orders and management History Interval history: Patient seen and examined, remains on the vent, unresponsive. Hospitalist Physical - Physical exam Narrative exam: General appearance: Present: Resting on the ventilator, obese - EENT Eyes: Present: PERRL ENT: clear oral mucosa, dentition normal - Neck Neck: Present: supple, normal ROM - Respiratory Respiratory effort: normal Respiratory: left: diminished - Cardiovascular Rhythm: regular Heart Sounds: Present: S1 & S2 - Extremities Extremities: no ischemia Peripheral Pulses: within normal limits - Abdominal General gastrointestinal: soft, non-tender, normal bowel sounds - Psychiatric Psychiatric: other (On vent) - Neurologic Neurologic: other (On vent) - Constitutional Vitals: Temp Pulse Resp BP Pulse Ox 98.0 F 85 18 189/75 97 08/27/20 07:17 08/27/20 09:30 08/27/20 09:30 08/27/20 09:30 08/27/20 09:30 General appearance: Present: severe distress, obese HEART Score - HEART Score Troponin: Troponin T 0.057 ng/mL (0.00-0.029) H 08/25/20 11:23 Results - Labs CBC & Chem 7: 08/28/20 04:19 08/28/20 04:19 Labs: Laboratory Last Values WBC 12.7 K/mm3 (4.5-11.0) H 08/27/20 07:24 RBC 2.92 M/mm3 (3.65-5.03) L 08/27/20 07:24 Hgb 8.1 gm/dl (10.1-14.3) L 08/27/20 07:24 Hct 24.4 % (30.3-42.9) L 08/27/20 07:24 MCV 84 fl (79-97) 08/27/20 07:24 MCH 28 pg (28-32) 08/27/20 07:24 MCHC 33 % (30-34) 08/27/20 07:24 RDW 15.4 % (13.2-15.2) H 08/27/20 07:24 Plt Count 190 K/mm3 (140-440) 08/27/20 07:24 Lymph % (Auto) 5.9 % (13.4-35.0) L 08/27/20 07:24 Bond % (Auto) 4.6 % (0.0-7.3) 08/27/20 07:24 Eos % (Auto) 2.2 % (0.0-4.3) 08/27/20 07:24 Baso % (Auto) 0.4 % (0.0-1.8) 08/27/20 07:24 Lymph # (Auto) 0.8 K/mm3 (1.2-5.4) L 08/27/20 07:24 Bond # (Auto) 0.6 K/mm3 (0.0-0.8) 08/27/20 07:24 Eos # (Auto) 0.3 K/mm3 (0.0-0.4) 08/27/20 07:24 Baso # (Auto) 0.0 K/mm3 (0.0-0.1) 08/27/20 07:24 Add Manual Diff Complete 08/26/20 05:04 Total Counted 100 08/26/20 05:04 Seg Neutrophils % 86.9 % (40.0-70.0) H 08/27/20 07:24 Seg Neuts % (Manual) 96.0 % (40.0-70.0) H 08/26/20 05:04 Band Neutrophils % 2.0 % 08/25/20 11:23 Lymphocytes % (Manual) 1.0 % (13.4-35.0) L 08/26/20 05:04 Monocytes % (Manual) 3.0 % (0.0-7.3) 08/26/20 05:04 Eosinophils % (Manual) 3.0 % (0.0-4.3) 08/25/20 11:23 Metamyelocytes % 1.0 % 08/25/20 11:23 Nucleated RBC % Not Reportable 08/26/20 05:04 Seg Neutrophils # 11.0 K/mm3 (1.8-7.7) H 08/27/20 07:24 Seg Neutrophils # Man 17.2 K/mm3 (1.8-7.7) H 08/26/20 05:04 Band Neutrophils # 0.0 K/mm3 08/26/20 05:04 Lymphocytes # (Manual) 0.2 K/mm3 (1.2-5.4) L 08/26/20 05:04 Abs React Lymphs (Man) 0.0 K/mm3 08/26/20 05:04 Monocytes # (Manual) 0.5 K/mm3 (0.0-0.8) 08/26/20 05:04 Eosinophils # (Manual) 0.0 K/mm3 (0.0-0.4) 08/26/20 05:04 Basophils # (Manual) 0.0 K/mm3 (0.0-0.1) 08/26/20 05:04 Metamyelocytes # 0.0 K/mm3 08/26/20 05:04 Myelocytes # 0.0 K/mm3 08/26/20 05:04 Promyelocytes # 0.0 K/mm3 08/26/20 05:04 Blast Cells # 0.0 K/mm3 08/26/20 05:04 WBC Morphology Not Reportable 08/26/20 05:04 Hypersegmented Neuts Not Reportable 08/26/20 05:04 Hyposegmented Neuts Not Reportable 08/26/20 05:04 Hypogranular Neuts Not Reportable 08/26/20 05:04 Smudge Cells Not Reportable 08/26/20 05:04 Toxic Granulation Not Reportable 08/26/20 05:04 Toxic Vacuolation Not Reportable 08/26/20 05:04 Dohle Bodies Not Reportable 08/26/20 05:04 Pelger-Huet Anomaly Not Reportable 08/26/20 05:04 Jannette Rods Not Reportable 08/26/20 05:04 Platelet Estimate Consistent w auto 08/26/20 05:04 Clumped Platelets Not Reportable 08/26/20 05:04 Plt Clumps, EDTA Not Reportable 08/26/20 05:04 Large Platelets Not Reportable 08/26/20 05:04 Giant Platelets Not Reportable 08/26/20 05:04 Platelet Satelliting Not Reportable 08/26/20 05:04 Plt Morphology Comment Not Reportable 08/26/20 05:04 RBC Morphology Not Reportable 08/26/20 05:04 Dimorphic RBCs Not Reportable 08/26/20 05:04 Polychromasia Not Reportable 08/26/20 05:04 Hypochromasia Not Reportable 08/26/20 05:04 Poikilocytosis Not Reportable 08/26/20 05:04 Anisocytosis 1+ 08/26/20 05:04 Microcytosis Not Reportable 08/26/20 05:04 Macrocytosis Not Reportable 08/26/20 05:04 Spherocytes Not Reportable 08/26/20 05:04 Pappenheimer Bodies Not Reportable 08/26/20 05:04 Sickle Cells Not Reportable 08/26/20 05:04 Target Cells Not Reportable 08/26/20 05:04 Tear Drop Cells Not Reportable 08/26/20 05:04 Ovalocytes Not Reportable 08/26/20 05:04 Helmet Cells Not Reportable 08/26/20 05:04 Fernando-[place] Bodies Not Reportable 08/26/20 05:04 [place] Rings Not Reportable 08/26/20 05:04 Lindsey Cells Not Reportable 08/26/20 05:04 Bite Cells Not Reportable 08/26/20 05:04 Crenated Cell Not Reportable 08/26/20 05:04 Elliptocytes Not Reportable 08/26/20 05:04 Acanthocytes (Spur) Not Reportable 08/26/20 05:04 Rouleaux Not Reportable 08/26/20 05:04 Hemoglobin C Crystals Not Reportable 08/26/20 05:04 Schistocytes Not Reportable 08/26/20 05:04 Malaria parasites Not Reportable 08/26/20 05:04 Shabbir Bodies Not Reportable 08/26/20 05:04 Hem Pathologist Commnt No 08/26/20 05:04 D-Dimer > 36155 ng/mlDDU (0-234) H 08/25/20 11:23 ABG pH 7.454 (7.320-7.450) H 08/27/20 04:10 POC ABG pCO2 33.7 mmHg (32.0-48.0) 08/27/20 04:10 POC ABG pO2 74.9 mmHg (83-108) L 08/27/20 04:10 POC ABG HCO3 23.1 08/27/20 04:10 ABG O2 Saturation 95.0 (0-100) 08/27/20 04:10 POC ABG Base Excess -0.6 08/27/20 04:10 ABG Hemoglobin 7.9 (12.0-17.5) L 08/27/20 04:10 ABG Oxyhemoglobin 94.0 (94-98) 08/27/20 04:10 ABG Methemoglobin 0.3 (0.0-1.5) 08/27/20 04:10 ABG Sodium 136.3 mmol/L (136.0-145.0) 08/27/20 04:10 ABG Potassium 3.8 mmol/L (3.40-4.50) 08/27/20 04:10 ABG Chloride 103.0 mmol/L (98-107) 08/27/20 04:10 ABG Glucose 117 mg/dL (65-95) H 08/27/20 04:10 Carboxyhemoglobin 0.8 (0.5-1.5) 08/27/20 04:10 FiO2 % 40.0 08/27/20 04:10 Sodium 137 mmol/L (137-145) 08/27/20 07:24 Potassium 3.7 mmol/L (3.6-5.0) 08/27/20 07:24 Chloride 101.0 mmol/L (98-107) 08/27/20 07:24 Carbon Dioxide 27 mmol/L (22-30) 08/27/20 07:24 Anion Gap 13 mmol/L 08/27/20 07:24 BUN 60 mg/dL (7-17) H 08/27/20 07:24 Creatinine 3.6 mg/dL (0.6-1.2) H 08/27/20 07:24 Estimated GFR 12 ml/min 08/27/20 07:24 BUN/Creatinine Ratio 17 % 08/27/20 07:24 Glucose 135 mg/dL (65-100) H 08/27/20 07:24 POC Glucose 117 mg/dL (70-105) H 08/27/20 05:12 Lactic Acid 1.80 mmol/L (0.7-2.0) 08/25/20 12:45 Calcium 8.5 mg/dL (8.4-10.2) 08/27/20 07:24 Total Bilirubin 0.20 mg/dL (0.1-1.2) 08/27/20 07:24 AST 39 units/L (5-40) 08/27/20 07:24 ALT 35 units/L (7-56) 08/27/20 07:24 Alkaline Phosphatase 83 units/L (35-129) 08/27/20 07:24 Troponin T 0.057 ng/mL (0.00-0.029) H 08/25/20 11:23 C-Reactive Protein 7.80 mg/dL (0.00-1.30) H 08/26/20 18:50 Total Protein 5.3 g/dL (6.3-8.2) L 08/27/20 07:24 Albumin 2.6 g/dL (3.9-5) L 08/27/20 07:24 Albumin/Globulin Ratio 1.0 % 08/27/20 07:24 Triglycerides 89 mg/dL (2-149) 08/25/20 11:23 Cholesterol 158 mg/dL (50-199) 08/25/20 11:23 LDL Cholesterol Direct 101 mg/dL (50-130) 08/25/20 11:23 HDL Cholesterol 50 mg/dL (40-59) 08/25/20 11:23 Cholesterol/HDL Ratio 3.16 % 08/25/20 11:23 Procalcitonin 0.41 ng/mL (<0.15) 08/26/20 18:50 Arterial Blood Glucose 117 mg/dL (65-95) H 08/27/20 04:10 Arterial Blood Ionized Calcium 4.4 mg/dL (4.6-5.3) L 08/27/20 04:10 Urine Color Yellow (Yellow) 08/25/20 11:17 Urine Turbidity Cloudy (Clear) 08/25/20 11:17 Urine pH 7.0 (5.0-7.0) 08/25/20 11:17 Ur Specific [place] 1.012 (1.003-1.030) 08/25/20 11:17 Urine Protein >500 mg/dL (Negative) 08/25/20 11:17 Urine Glucose (UA) >=500 mg/dL (Negative) 08/25/20 11:17 Urine Ketones Neg mg/dL (Negative) 08/25/20 11:17 Urine Blood Sm (Negative) 08/25/20 11:17 Urine Nitrite Neg (Negative) 08/25/20 11:17 Urine Bilirubin Neg (Negative) 08/25/20 11:17 Urine Urobilinogen < 2.0 mg/dL (<2.0) 08/25/20 11:17 Ur Leukocyte Esterase Neg (Negative) 08/25/20 11:17 Urine WBC (Auto) 31.0 /HPF (0.0-6.0) H 08/25/20 11:17 Urine RBC (Auto) 28.0 /HPF (0.0-6.0) 08/25/20 11:17 U Epithel Cells (Auto) 5.0 /HPF (0-13.0) 08/25/20 11:17 Urine Bacteria (Auto) 1+ /HPF (Negative) 08/25/20 11:17 Urine WBC Clumps Few /HPF 08/25/20 11:17 Ur Renal Epithelial Cell 4 /LPF 08/25/20 11:17 Hyaline Casts 28 /LPF 08/25/20 11:17 Urine Creatinine 67.4 mg/dL (0.1-20.0) H 08/26/20 17:00 Urine Sodium 12 mmol/L 08/26/20 17:00 Coronavirus (PCR) Negative (Negative) 08/26/20 Unknown Microbiology: Microbiology 08/25/20 11:29 Sputum - Endotracheal Wash Sputum Culture - Preliminary 08/25/20 11:23 Peripheral/Venous Blood Culture - Preliminary NO GROWTH AFTER 24 HOURS 08/25/20 11:23 Peripheral/Venous Blood Culture - Preliminary NO GROWTH AFTER 24 HOURS 08/25/20 11:17 Urine,Clean Catch Urine Culture - Preliminary Christina/IV: Voiding Method Indwelling Catheter Active Medications - Current Medications Current Medications: Generic Name Dose Route Start Last Admin Trade Name Freq PRN Reason Stop Dose Admin Albuterol 2.5 mg 08/25/20 14:55 Albuterol 2.5 Mg/3 Ml Nebu IH Q3HRT PRN Shortness Of Breath Lipase/Protease/Amylase 1 each 08/26/20 12:15 Lipase 10,500/Protease 25,000/Amylase 43,750 (Units) Dr Gu FEEDTUBE PRN PRN For Clogged Feeding Tube Aspirin 81 mg 08/27/20 10:00 08/27/20 09:13 Aspirin 81 Mg Tab Chew PO 81 mg QDAY TERA Administration Atorvastatin Calcium 40 mg 08/26/20 22:00 08/26/20 21:22 Atorvastatin 40 Mg Tab PO 40 mg QHS TERA Administration Azithromycin 250 mg 08/27/20 10:00 08/27/20 09:17 Azithromycin 250 Mg Tab PO 250 mg QDAY TERA Administration Protocol Dextrose 50 ml 08/25/20 18:46 Dextrose 50% In Water (25gm) 50 Ml Syringe IV Q30MIN PRN Hypoglycemia Protocol Dextrose 50 ml 08/26/20 19:18 Dextrose 50% In Water (25gm) 50 Ml Syringe IV Q30MIN PRN Hypoglycemia Protocol Famotidine 20 mg 08/27/20 10:00 08/27/20 09:13 Famotidine 20 Mg/2 Ml Inj IV 20 mg DAILY TERA Administration Fentanyl 50 mcg 08/26/20 17:11 Fentanyl 100 Mcg/2 Ml Inj IV Q10MIN PRN ANALGESIA Furosemide 40 mg 08/26/20 18:00 08/27/20 05:54 Furosemide 40 Mg/4 Ml Inj IV 08/28/20 06:01 40 mg 0600,1800 TERA Administration Heparin Sodium (Porcine) 5,000 unit 08/26/20 22:00 08/27/20 09:10 Heparin 5,000 Unit/1 Ml Vial SUB-Q 5,000 unit Q12HR TERA Administration Hydralazine HCl 10 mg 08/26/20 01:20 08/26/20 11:40 Hydralazine 20 Mg/1 Ml Inj IV 10 mg Q4HR PRN Administration Blood Pressure Hydrophilic Ointment 1 applic 08/25/20 11:07 08/25/20 11:57 Lip Therapy Vaseline TP 1 applic Q2HR PRN Administration Dry Lips Levetiracetam 500 mg/ Dextrose 105 mls @ 400 mls/hr 08/26/20 10:00 08/27/20 09:15 IV 400 mls/hr Q12HR TERA Administration Propofol 1,000 mg in 100 mls @ 2.838 mls/hr 08/25/20 20:48 08/27/20 09:15 Diprivan 10 Mg/Ml IV 25 mcg/kg/min TITR TERA 14.19 mls/hr Titration Protocol 5 MCG/KG/MIN Ceftriaxone Sodium 2 gm in 100 mls @ 200 mls/hr 08/26/20 11:00 08/26/20 11:09 Rocephin/Ns 2 Gm/100 Ml IV 200 mls/hr Q24H TERA Administration Protocol Fentanyl Citrate 2,000 mcg in 100 mls @ 4.605 mls/hr 08/26/20 18:00 08/26/20 17:49 Fentanyl Drip Premix IV 1 mcg/kg/hr TITR TERA 4.605 mls/hr Administration Protocol 1 MCG/KG/HR Insulin Human Lispro 0 unit 08/27/20 12:00 Insulin Lispro 100 Unit/Ml SUB-Q Q6HR TERA Protocol Multi-Ingred Cream/Lotion/Oil/Oint 1 applic 08/25/20 11:07 Mineral Oil/Petrolatum, White Ophth Oint 3.5 Gm OU Q4HR PRN Dry Eye(s) Senna/Docusate Sodium 1 tab 08/25/20 22:00 08/27/20 09:13 Sennosides/Docusate Sodium 8.6/50 Mg Tab FEEDTUBE 1 tab BID TERA Administration Simple Syrup 15 ml 08/26/20 12:15 Simple Syrup 15 Ml FEEDTUBE PRN PRN Hypoglycemia Simple Syrup 30 ml 08/26/20 12:15 Simple Syrup 15 Ml FEEDTUBE PRN PRN Hypoglycemia Sodium Bicarbonate 325 mg 08/26/20 12:15 Sodium Bicarbonate 325 Mg Tab FEEDTUBE PRN PRN For Clogged Feeding Tube Sodium Chloride 10 ml 08/25/20 22:00 08/27/20 09:15 Sodium Chloride 0.9% 10 Ml Flush Syringe IV 10 ml BID TERA Administration Sodium Chloride 10 ml 08/25/20 14:55 08/26/20 01:50 Sodium Chloride 0.9% 10 Ml Flush Syringe IV 10 ml PRN PRN Administration LINE FLUSH Nutrition/Malnutrition Assess - Dietary Evaluation Nutrition/Malnutrition Findings: Nutrition Notes Start: 08/26/20 10:21 Freq: Status: Active Protocol: Document 08/26/20 10:21 CW (Rec: 08/26/20 10:54 CW [id number]) Nutrition Notes Need for Assessment generated from: MD Order,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 Initial or Follow up Assessment Current Diagnosis Acute Kidney Injury,CKD(stage I-IV),Diabetes,Hypertension, Heart Failure,Respiratory Failure Other Pertinent Diagnosis cardiac arrest, acute encephalopathy, pneu, anoxIC brain injury, GERD Current Diet NPO Labs/Tests BUN 56 Cr 3.4 BG 187 Pertinent Medications [place] propofol at 19.866 ml/hr (524 kcal) [id number] 50 mEQ Humulin NS 1L Height 5 ft 5 in Weight 92.1 kg [place] Body Weight (kg) 56.81 BMI 33.7 Weight change and time frame +2% x 5 months per past chart history Weight Status Obese Subjective/Other Information MD consult for evaluate nutritional intake. RN consult for hx of hcewing difficulty. RN consult for skin risk. Leroy score of 12. Skin is intact. Pt unabel to provide hx on chewing at this time.Per past chart hx pt had a regular consistency diet. Pt on mechanical vent. Recommend initiatig TF regimen of Nepro once medically feasible. Per MD notes, NGT has been placed. Addendum: TF consult order received. TF order placed. Burn Absent Trauma Absent Skin Integrity/Comment intact Current % PO Negligible Minimum of two criteria No physical signs of malnutrition #1 Nutrition Diagnosis Inadequate oral intake Etiology mechanically ventilated As Evidenced by Signs and Symptoms Pt unabel to consume via PO at this time Is patient on ventilator? Yes Is Patient Ambulatory and/or Out of Bed No REE-([place]-St. Jeor-confined to bed) 1700.436 Kcal/Kg value to use for calculation 14 Approximate Energy Requirements Using 1289 kcal/Kg Calculation Used for Recommendations Kcal/kg Additional Notes protein needs: >114g (>2 g/ kgIBW) fluid needs 1500 - 1900 ml or per MD order Nutrition Intervention Change Diet Order: Initiate nutrition support when medically feasible Nutrition Support: Recommend Nepro at 30 ml/hr with a free water flush of 130 ml q4h Kcal 1,296 Protein (gm) 58 Fluid (mL) 523 Goal #1 Meet at least 75% of kcal and protein needs as best as possible Anticipated Discharge Needs: unable to determine at this time Follow-Up By: 08/28/20 Additional Comments F/U vent status; propofol status; renal labs
[2020-08-27] MEDS: fentaNYL DRIP Premix 2,000 MCG/100 ML BAG IV SCH (11:15)
[2020-08-27] MEDS: cefTRIAXone/NS 2 GM/100 ML 2 GM/100 ML BAG IV SCH (11:28)
--- NOTE | 2020-08-27 11:52 | Progress Note ---
Assessment and Plan Please see detailed consultation from yesterday. 75-year-old female: 1. Status post cardiopulmonary arrest with unknown downtime (asystole was primary noted rhythm). * Intubated and sedated 2. Acute kidney injury with metabolic acidemia. 3. Likely anoxic encephalopathy. 4. Questionable multifocal pneumonia 5. Mild cardiomyopathy 6. Hypertension 7. History of diabetes 8. Obesity hypoventilation syndrome 9. Anemia 10. Coronavirus negative Echocardiogram is reviewed. We will initiate low-dose IV beta-skylar. Continue as needed IV hydralazine. Continue aspirin therapy. Guarded/grim prognosis given the above. We will follow. - Patient Problems (1) Acute renal failure superimposed on chronic kidney disease Current Visit: Yes Status: Acute (2) Anoxic brain injury Current Visit: Yes Status: Acute (3) Anoxic encephalopathy Current Visit: Yes Status: Acute (4) Cardiac arrest Current Visit: Yes Status: Acute (5) Multifocal pneumonia Current Visit: Yes Status: Acute (6) Acute respiratory failure with hypoxia Current Visit: No Status: Acute (7) Anemia Current Visit: No Status: Acute Qualifiers: Anemia type: unspecified type Qualified Code(s): D64.9 - Anemia, unspecified Subjective Date of service: 08/27/20 Interval history: No changes overnight. No acute events overnight. Objective Vital Signs Temp Pulse Resp BP Pulse Ox 08/27/20 11:44 98.0 F 08/27/20 09:30 85 18 189/75 97 08/27/20 09:20 86 18 187/74 99 08/27/20 09:10 74 18 182/72 99 08/27/20 09:00 82 18 182/72 98 08/27/20 08:50 84 18 181/74 98 08/27/20 08:40 83 18 183/74 98 08/27/20 08:30 76 18 183/74 97 08/27/20 08:20 87 18 161/75 98 08/27/20 08:10 81 18 162/71 98 08/27/20 08:00 79 18 162/71 96 08/27/20 07:50 88 18 156/61 97 08/27/20 07:40 88 18 97 08/27/20 07:30 88 18 172/77 97 08/27/20 07:26 69 156/61 97 08/27/20 07:20 86 18 172/77 97 08/27/20 07:17 98.0 F 08/27/20 07:10 87 18 183/71 97 08/27/20 07:00 81 18 162/74 96 08/27/20 06:50 71 18 173/65 97 08/27/20 06:40 77 18 163/65 97 08/27/20 06:30 80 18 163/65 94 08/27/20 06:20 67 18 183/71 97 08/27/20 06:10 65 18 190/83 98 08/27/20 06:00 73 18 190/83 97 08/27/20 05:50 83 18 174/71 97 08/27/20 05:40 82 18 184/82 97 08/27/20 05:30 73 18 184/82 96 08/27/20 05:20 76 18 182/73 97 08/27/20 05:10 72 18 183/85 97 08/27/20 05:00 74 18 183/85 97 08/27/20 04:50 64 18 176/82 97 08/27/20 04:40 73 18 177/73 97 08/27/20 04:30 67 18 177/73 08/27/20 04:20 64 18 168/72 97 08/27/20 04:10 67 18 176/72 97 08/27/20 04:00 98.3 F 82 18 175/87 97 08/27/20 03:50 82 18 187/82 97 08/27/20 03:40 82 18 173/77 97 08/27/20 03:35 80 173/77 98 08/27/20 03:30 62 17 173/77 96 08/27/20 03:20 62 18 176/72 98 08/27/20 03:10 62 18 176/72 98 08/27/20 03:00 62 18 176/72 97 08/27/20 02:50 61 18 166/59 98 08/27/20 02:40 61 18 169/69 98 08/27/20 02:30 61 18 169/69 08/27/20 02:20 60 18 171/68 98 08/27/20 02:10 64 18 167/68 98 08/27/20 02:00 61 18 167/68 97 08/27/20 01:50 61 18 167/67 97 08/27/20 01:40 61 18 167/68 97 06/27/21 01:30 61 18 167/68 96 08/27/20 01:20 63 14 171/62 98 08/27/20 01:10 63 18 167/63 100 08/27/20 01:00 63 18 167/63 99 08/27/20 00:50 63 18 161/63 100 08/27/20 00:40 75 18 169/64 100 08/27/20 00:30 62 19 169/64 08/27/20 00:20 63 18 174/72 100 08/27/20 00:10 74 18 154/67 100 08/27/20 00:00 75 18 154/67 99 08/26/20 23:57 98.0 F 08/26/20 23:56 63 18 165/61 100 08/26/20 23:50 63 18 169/62 100 08/26/20 23:40 62 18 167/62 100 08/26/20 23:30 63 18 167/62 100 08/26/20 23:26 63 18 138/54 100 08/26/20 23:20 62 18 165/61 100 08/26/20 23:10 62 18 156/60 100 08/26/20 23:02 63 160/58 100 08/26/20 23:00 63 18 156/60 99 08/26/20 22:50 63 18 160/58 100 08/26/20 22:40 64 18 150/58 100 08/26/20 22:30 64 18 150/58 99 08/26/20 22:20 64 18 149/55 99 08/26/20 22:10 63 18 124/55 100 08/26/20 22:00 62 18 124/55 99 08/26/20 21:50 60 18 131/51 99 08/26/20 21:40 60 18 153/53 99 08/26/20 21:30 61 18 153/53 97 08/26/20 21:20 59 L 18 137/54 99 08/26/20 21:10 59 L 18 149/56 99 08/26/20 21:00 59 L 18 149/56 98 08/26/20 20:50 59 L 18 140/53 99 08/26/20 20:40 59 L 18 144/56 99 08/26/20 20:30 59 L 18 106/55 97 08/26/20 20:20 59 L 18 106/55 99 08/26/20 20:10 59 L 18 99/57 98 08/26/20 20:00 60 18 113/59 96 08/26/20 19:53 97.9 F 08/26/20 19:50 60 18 113/59 98 08/26/20 19:40 63 18 105/60 98 08/26/20 19:30 61 18 105/60 97 08/26/20 19:20 58 L 18 124/52 98 08/26/20 19:16 63 105/60 98 08/26/20 19:10 57 L 18 150/58 98 08/26/20 19:00 60 18 150/58 97 08/26/20 18:50 61 18 148/55 99 08/26/20 18:40 61 18 151/62 98 08/26/20 18:30 62 18 151/62 96 08/26/20 18:20 63 18 140/55 98 08/26/20 18:10 64 18 152/59 98 08/26/20 18:00 64 17 152/59 96 08/26/20 17:50 63 18 138/54 97 08/26/20 17:40 63 18 143/55 97 08/26/20 17:30 63 18 143/55 96 08/26/20 17:20 62 18 138/54 96 08/26/20 17:10 62 18 132/54 96 08/26/20 17:00 63 18 152/60 96 08/26/20 16:50 64 18 152/60 97 08/26/20 16:40 66 18 146/58 99 08/26/20 16:30 66 18 146/58 97 08/26/20 16:20 65 18 146/56 99 08/26/20 16:10 65 18 146/58 99 08/26/20 16:00 68 18 146/58 96 08/26/20 15:50 67 18 147/57 98 08/26/20 15:40 66 18 142/55 98 08/26/20 15:30 67 18 142/55 96 08/26/20 15:23 98.8 F 08/26/20 15:20 66 18 140/58 98 08/26/20 15:10 71 18 137/57 98 08/26/20 15:04 77 136/57 97 08/26/20 15:00 71 18 137/57 95 08/26/20 14:50 72 18 135/56 97 08/26/20 14:40 73 18 133/57 97 08/26/20 14:30 73 18 133/57 95 08/26/20 14:20 77 18 136/57 97 08/26/20 14:10 66 18 129/53 97 08/26/20 14:00 66 18 129/53 95 08/26/20 13:50 67 18 133/55 97 08/26/20 13:40 68 18 138/56 97 08/26/20 13:30 69 18 138/56 96 08/26/20 13:20 71 18 151/63 97 08/26/20 13:10 75 19 165/69 98 08/26/20 13:00 76 22 165/69 95 08/26/20 12:50 75 22 151/63 98 08/26/20 12:40 74 22 146/57 98 08/26/20 12:30 74 22 146/57 95 08/26/20 12:20 75 19 143/56 98 08/26/20 12:10 72 19 146/68 98 08/26/20 12:00 98.5 F 69 18 121/49 96 08/26/20 11:50 68 18 123/52 98 - Labs and Meds Cardiac Enzymes 08/27/20 Range/Units 07:24 AST 39 (5-40) units/L CBC 08/27/20 Range/Units 07:24 WBC 12.7 H (4.5-11.0) K/mm3 RBC 2.92 L (3.65-5.03) M/mm3 Hgb 8.1 L (10.1-14.3) gm/dl Hct 24.4 L (30.3-42.9) % Plt Count 190 (140-440) K/mm3 Lymph # (Auto) 0.8 L (1.2-5.4) K/mm3 [place] # (Auto) 0.6 (0.0-0.8) K/mm3 Eos # (Auto) 0.3 (0.0-0.4) K/mm3 Baso # (Auto) 0.0 (0.0-0.1) K/mm3 Comprehensive Metabolic Panel 08/27/20 Range/Units 07:24 Sodium 137 (137-145) mmol/L Potassium 3.7 (3.6-5.0) mmol/L Chloride 101.0 (98-107) mmol/L Carbon Dioxide 27 (22-30) mmol/L BUN 60 H (7-17) mg/dL Creatinine 3.6 H (0.6-1.2) mg/dL Glucose 135 H (65-100) mg/dL Calcium 8.5 (8.4-10.2) mg/dL AST 39 (5-40) units/L ALT 35 (7-56) units/L Alkaline Phosphatase 83 (35-129) units/L Total Protein 5.3 L (6.3-8.2) g/dL Albumin 2.6 L (3.9-5) g/dL
[2020-08-27] MEDS: METOPROLOL TARTRATE 5 MG/5 ML INJ IV SCH ×2 (13:56→18:42)
--- NOTE | 2020-08-27 16:21 | Progress Note ---
Assessment and Plan Acute hypoxemic respiratory failure Cardiac arrest with ROSC Acute encephalopathy Multifocal pneumonia Possible bilateral pulmonary edema Congestive heart failure with an acute exacerbation Anemia Hyperkalemia Lactic acidosis Acute kidney injury Elevated serum transaminases Non-ST elevation MT Oropharyngeal dysphagia -reduced set rate to 14/min - continue to wean supplemental oxygen for target O2 sat's > 92% acutely - VAP bundle addressed - continue lung protective strategies - continue bronchodilators with pulmonary hygiene per RT - continue Daily SAT and SBT assessment as tolerated - wean per pulmonary driven protocols otherwise - continue accuchecks with glycemic control per SSI (While critically ill target blood glucose of 140-180 mg/dL; avoid hypoglycemia) - sedation prn for target RASS -1 to -2 - avoid nephrotoxins, renally dose all medications - continue to avoid benzodiazepine's, reduce the possibility of delirium - complete AB's per ID rec's - prn analgesia per CPOT score - Maintenance of sleep-wake cycle, avoid delirium - enteral nutritional support at goal rate as tolerated - G.I. & VTE prophylaxis - PT/OT/ROM exercises - continue mobility protocols for pressure ulcer prophylaxis - Monitor hemodynamics closely - continue other care per attending / other consultants - discharge planning ongoing concurrently COVID SPECIFIC INTERVENTIONS - COVID-19 PCR negative .... Re-evaluate in am & prn CONDITION: CRITICAL PROGNOSIS: GUARDED CODE STATUS: FULL CODE The high probability of a clinically significant, sudden or life-threatening deterioration of the [respiratory, cardiovascular & neurologic] system(s) required my full and direct attention, intervention and personal management. The aggregate critical care time was [33] minutes without overlap. Time includes spent on; [x] Data Review and interpretation [x] Patient assessment and monitoring of vital signs [x] Documentation [x] Medication orders and management Subjective Date of service: 08/27/20 Principal diagnosis: Ac. hypoxemic resp failure; Cardiac arrest; AMS; AE-CHF; Hyperkalemia; FLORIDALMA Interval history: Patient is seen today for: Acute hypoxemic respiratory failure; Cardiac arrest with ROSC; Acute encephalopathy; Multifocal pneumonia; pulmonary edema; AE-CHF; Hyperkalemia; FLORIDALMA; NSTEMI Seen and examined at bedside; 24hour events reviewed; nursing and respiratory care staff consulted; no adverse overnight events reported to me; resting in bed; remains on MVS; AMS is persistent; afebrile; no emesis or overt aspiration and no seizures Objective Vital Signs - 12hr 08/27/20 08/27/20 08/27/20 04:20 04:30 04:40 Temperature Pulse Rate 64 67 73 Respiratory 18 18 18 Rate Blood Pressure 168/72 177/73 177/73 O2 Sat by Pulse 97 97 Oximetry 08/27/20 08/27/20 08/27/20 04:50 05:00 05:10 Temperature Pulse Rate 64 74 72 Respiratory 18 18 18 Rate Blood Pressure 176/82 183/85 183/85 O2 Sat by Pulse 97 97 97 Oximetry 08/27/20 08/27/20 08/27/20 05:20 05:30 05:40 Temperature Pulse Rate 76 73 82 Respiratory 18 18 18 Rate Blood Pressure 182/73 184/82 184/82 O2 Sat by Pulse 97 96 97 Oximetry 08/27/20 08/27/20 08/27/20 05:50 06:00 06:10 Temperature Pulse Rate 83 73 65 Respiratory 18 18 18 Rate Blood Pressure 174/71 190/83 190/83 O2 Sat by Pulse 97 97 98 Oximetry 08/27/20 08/27/20 08/27/20 06:20 06:30 06:40 Temperature Pulse Rate 67 80 77 Respiratory 18 18 18 Rate Blood Pressure 183/71 163/65 163/65 O2 Sat by Pulse 97 94 97 Oximetry 08/27/20 08/27/20 08/27/20 06:50 07:00 07:10 Temperature Pulse Rate 71 81 87 Respiratory 18 18 18 Rate Blood Pressure 173/65 162/74 183/71 O2 Sat by Pulse 97 96 97 Oximetry 08/27/20 08/27/20 08/27/20 07:17 07:20 07:26 Temperature 98.0 F Pulse Rate 86 69 Respiratory 18 Rate Blood Pressure 172/77 156/61 O2 Sat by Pulse 97 97 Oximetry 08/27/20 08/27/20 08/27/20 07:30 07:40 07:50 Temperature Pulse Rate 88 88 88 Respiratory 18 18 18 Rate Blood Pressure 172/77 156/61 O2 Sat by Pulse 97 97 97 Oximetry 08/27/20 08/27/20 08/27/20 08:00 08:10 08:20 Temperature Pulse Rate 79 81 87 Respiratory 18 18 18 Rate Blood Pressure 162/71 162/71 161/75 O2 Sat by Pulse 96 98 98 Oximetry 08/27/20 08/27/20 08/27/20 08:30 08:40 08:50 Temperature Pulse Rate 76 83 84 Respiratory 18 18 18 Rate Blood Pressure 183/74 183/74 181/74 O2 Sat by Pulse 97 98 98 Oximetry 08/27/20 08/27/20 08/27/20 09:00 09:10 09:20 Temperature Pulse Rate 82 74 86 Respiratory 18 18 18 Rate Blood Pressure 182/72 182/72 187/74 O2 Sat by Pulse 98 99 99 Oximetry 08/27/20 08/27/20 08/27/20 09:30 09:40 09:50 Temperature Pulse Rate 85 77 83 Respiratory 18 18 18 Rate Blood Pressure 189/75 189/75 189/75 O2 Sat by Pulse 97 99 99 Oximetry 08/27/20 08/27/20 08/27/20 10:00 10:10 10:20 Temperature Pulse Rate 85 83 86 Respiratory 18 18 18 Rate Blood Pressure 174/81 174/81 174/81 O2 Sat by Pulse 97 98 99 Oximetry 08/27/20 08/27/20 08/27/20 10:30 10:40 10:50 Temperature Pulse Rate 89 88 75 Respiratory 18 18 18 Rate Blood Pressure 169/80 169/80 169/80 O2 Sat by Pulse 97 99 99 Oximetry 08/27/20 08/27/20 08/27/20 11:00 11:10 11:20 Temperature Pulse Rate 85 89 78 Respiratory 18 18 18 Rate Blood Pressure 176/83 176/83 176/83 O2 Sat by Pulse 98 99 98 Oximetry 08/27/20 08/27/20 08/27/20 11:30 11:40 11:44 Temperature 98.0 F Pulse Rate 82 89 Respiratory 18 18 Rate Blood Pressure 181/68 181/68 O2 Sat by Pulse 97 99 Oximetry 08/27/20 08/27/20 08/27/20 11:50 11:55 12:00 Temperature Pulse Rate 83 85 84 Respiratory 18 18 Rate Blood Pressure 181/68 173/69 173/69 O2 Sat by Pulse 97 97 98 Oximetry 08/27/20 08/27/20 08/27/20 12:10 12:20 12:30 Temperature Pulse Rate 83 82 85 Respiratory 18 17 18 Rate Blood Pressure 173/69 173/69 162/70 O2 Sat by Pulse 97 97 97 Oximetry 06/27/21 06/27/21 06/27/21 12:40 12:50 13:00 Temperature Pulse Rate 80 84 85 Respiratory 18 18 18 Rate Blood Pressure 162/70 162/70 159/70 O2 Sat by Pulse 97 97 97 Oximetry 08/27/20 08/27/20 08/27/20 13:10 13:20 13:30 Temperature Pulse Rate 82 83 93 H Respiratory 18 18 18 Rate Blood Pressure 159/70 159/70 149/79 O2 Sat by Pulse 98 99 95 Oximetry 08/27/20 08/27/20 08/27/20 13:40 13:50 13:56 Temperature Pulse Rate 85 76 84 Respiratory 0 L 18 Rate Blood Pressure 149/79 149/79 152/79 O2 Sat by Pulse 95 Oximetry 08/27/20 08/27/20 08/27/20 14:00 14:10 14:20 Temperature Pulse Rate 79 81 81 Respiratory 18 18 18 Rate Blood Pressure 151/74 151/74 151/74 O2 Sat by Pulse 97 97 Oximetry 08/27/20 08/27/20 08/27/20 14:30 15:31 16:00 Temperature 98.8 F Pulse Rate 79 81 Respiratory 17 Rate Blood Pressure 171/77 171/72 O2 Sat by Pulse 96 98 Oximetry Constitutional: other (elderly obese female with mildly increased respirtatory effort at rest on MVS ) Eyes: non-icteric ENT: oropharynx moist, other (ETT 24 cm DIMAS) Neck: supple, no lymphadenopathy, no JVD Effort: mildly labored Ascultation: Bilateral: diminished breath sounds, rhonchi Percussion: Bilateral: not dull Cardiovascular: regular rate and rhythm Gastrointestinal: normoactive bowel sounds, soft, non-tender, non-distended Integumentary: normal Extremities: no cyanosis, no edema, pulses normal, no ischemia or petechiae Neurologic: non-focal exam (grossly), pupils equal and round, unable to assess Psychiatric: other (unable to assess re: AMS) CBC and BMP: 08/29/20 04:32 08/29/20 04:32 ABG, PT/INR, D-dimer: ABG ABG pH 7.454 (7.320-7.450) H 08/27/20 04:10 POC ABG pCO2 33.7 mmHg (32.0-48.0) 08/27/20 04:10 POC ABG pO2 74.9 mmHg (83-108) L 08/27/20 04:10 POC ABG HCO3 23.1 08/27/20 04:10 ABG O2 Saturation 95.0 (0-100) 08/27/20 04:10 PT/INR, D-dimer D-Dimer > 94907 ng/mlDDU (0-234) H 08/25/20 11:23 Abnormal lab findings: Abnormal Labs 08/25/20 08/25/20 08/25/20 11:14 11:17 11:23 WBC 11.5 H RBC 3.22 L Hgb 8.6 L Hct 27.6 L MCH 27 L RDW 15.6 H Lymph % (Auto) Lymph # (Auto) Seg Neutrophils % Seg Neuts % (Manual) 89.0 H Lymphocytes % (Manual) 5.0 L Seg Neutrophils # Seg Neutrophils # Man 10.2 H Lymphocytes # (Manual) 0.6 L D-Dimer ABG pH 7.290 L POC ABG pO2 161.1 H ABG Hemoglobin 8.9 L ABG Oxyhemoglobin 98.6 H ABG Sodium 135.2 L ABG Potassium 5.9 H ABG Glucose 210 H Carboxyhemoglobin 0.4 L Potassium Carbon Dioxide BUN Creatinine Glucose POC Glucose Lactic Acid Calcium AST ALT Troponin T C-Reactive Protein Total Protein Albumin Arterial Blood Glucose 210 H Arterial Blood Ionized Calcium 4.4 L Urine WBC (Auto) 31.0 H Urine Creatinine 08/25/20 08/25/20 08/25/20 11:23 11:23 11:23 WBC RBC Hgb Hct MCH RDW Lymph % (Auto) Lymph # (Auto) Seg Neutrophils % Seg Neuts % (Manual) Lymphocytes % (Manual) Seg Neutrophils # Seg Neutrophils # Man Lymphocytes # (Manual) D-Dimer > 88287 H ABG pH POC ABG pO2 ABG Hemoglobin ABG Oxyhemoglobin ABG Sodium ABG Potassium ABG Glucose Carboxyhemoglobin Potassium 6.4 H* Carbon Dioxide 21 L BUN 52 H Creatinine 3.5 H Glucose 194 H POC Glucose Lactic Acid 3.30 H* Calcium 8.1 L AST 103 H ALT 77 H Troponin T 0.057 H C-Reactive Protein Total Protein 5.8 L Albumin 3.4 L Arterial Blood Glucose Arterial Blood Ionized Calcium Urine WBC (Auto) Urine Creatinine 08/25/20 08/25/20 08/25/20 13:51 15:45 20:34 WBC RBC Hgb Hct MCH RDW Lymph % (Auto) Lymph # (Auto) Seg Neutrophils % Seg Neuts % (Manual) Lymphocytes % (Manual) Seg Neutrophils # Seg Neutrophils # Man Lymphocytes # (Manual) D-Dimer ABG pH POC ABG pO2 66.3 L ABG Hemoglobin 9.1 L ABG Oxyhemoglobin 92.5 L ABG Sodium ABG Potassium ABG Glucose 225 H Carboxyhemoglobin Potassium Carbon Dioxide BUN Creatinine Glucose POC Glucose 188 H 233 H Lactic Acid Calcium AST ALT Troponin T C-Reactive Protein Total Protein Albumin Arterial Blood Glucose 225 H Arterial Blood Ionized Calcium 4.4 L Urine WBC (Auto) Urine Creatinine 08/26/20 08/26/20 08/26/20 04:14 05:04 05:04 WBC 17.9 H RBC 3.05 L Hgb 8.3 L Hct 25.6 L MCH 27 L RDW 15.3 H Lymph % (Auto) Lymph # (Auto) Seg Neutrophils % Seg Neuts % (Manual) 96.0 H Lymphocytes % (Manual) 1.0 L Seg Neutrophils # Seg Neutrophils # Man 17.2 H Lymphocytes # (Manual) 0.2 L D-Dimer ABG pH POC ABG pO2 131.3 H ABG Hemoglobin 8.6 L ABG Oxyhemoglobin 98.2 H ABG Sodium ABG Potassium ABG Glucose 182 H Carboxyhemoglobin 0.2 L Potassium Carbon Dioxide BUN 56 H Creatinine 3.4 H Glucose 187 H POC Glucose Lactic Acid Calcium 8.3 L AST 54 H ALT 57 H Troponin T C-Reactive Protein Total Protein 5.4 L Albumin 2.9 L Arterial Blood Glucose 182 H Arterial Blood Ionized Calcium 4.3 L Urine WBC (Auto) Urine Creatinine 08/26/20 08/26/20 08/26/20 05:40 07:36 11:54 WBC RBC Hgb Hct MCH RDW Lymph % (Auto) Lymph # (Auto) Seg Neutrophils % Seg Neuts % (Manual) Lymphocytes % (Manual) Seg Neutrophils # Seg Neutrophils # Man Lymphocytes # (Manual) D-Dimer ABG pH POC ABG pO2 ABG Hemoglobin ABG Oxyhemoglobin ABG Sodium ABG Potassium ABG Glucose Carboxyhemoglobin Potassium Carbon Dioxide BUN Creatinine Glucose POC Glucose 179 H 171 H 190 H Lactic Acid Calcium AST ALT Troponin T C-Reactive Protein Total Protein Albumin Arterial Blood Glucose Arterial Blood Ionized Calcium Urine WBC (Auto) Urine Creatinine 0608/26/20 08/26/20 15:14 17:00 18:50 WBC RBC Hgb Hct MCH RDW Lymph % (Auto) Lymph # (Auto) Seg Neutrophils % Seg Neuts % (Manual) Lymphocytes % (Manual) Seg Neutrophils # Seg Neutrophils # Man Lymphocytes # (Manual) D-Dimer ABG pH POC ABG pO2 ABG Hemoglobin ABG Oxyhemoglobin ABG Sodium ABG Potassium ABG Glucose Carboxyhemoglobin Potassium Carbon Dioxide BUN Creatinine Glucose POC Glucose 158 H Lactic Acid Calcium AST ALT Troponin T C-Reactive Protein 7.80 H Total Protein Albumin Arterial Blood Glucose Arterial Blood Ionized Calcium Urine WBC (Auto) Urine Creatinine 67.4 H 08/26/20 08/27/20 08/27/20 22:01 04:10 05:12 WBC RBC Hgb Hct MCH RDW Lymph % (Auto) Lymph # (Auto) Seg Neutrophils % Seg Neuts % (Manual) Lymphocytes % (Manual) Seg Neutrophils # Seg Neutrophils # Man Lymphocytes # (Manual) D-Dimer ABG pH 7.454 H POC ABG pO2 74.9 L ABG Hemoglobin 7.9 L ABG Oxyhemoglobin ABG Sodium ABG Potassium ABG Glucose 117 H Carboxyhemoglobin Potassium Carbon Dioxide BUN Creatinine Glucose POC Glucose 122 H 117 H Lactic Acid Calcium AST ALT Troponin T C-Reactive Protein Total Protein Albumin Arterial Blood Glucose 117 H Arterial Blood Ionized Calcium 4.4 L Urine WBC (Auto) Urine Creatinine 08/27/20 08/27/20 08/27/20 07:24 07:24 11:08 WBC 12.7 H RBC 2.92 L Hgb 8.1 L Hct 24.4 L MCH RDW 15.4 H Lymph % (Auto) 5.9 L Lymph # (Auto) 0.8 L Seg Neutrophils % 86.9 H Seg Neuts % (Manual) Lymphocytes % (Manual) Seg Neutrophils # 11.0 H Seg Neutrophils # Man Lymphocytes # (Manual) D-Dimer ABG pH POC ABG pO2 ABG Hemoglobin ABG Oxyhemoglobin ABG Sodium ABG Potassium ABG Glucose Carboxyhemoglobin Potassium Carbon Dioxide BUN 60 H Creatinine 3.6 H Glucose 135 H POC Glucose 139 H Lactic Acid Calcium AST ALT Troponin T C-Reactive Protein Total Protein 5.3 L Albumin 2.6 L Arterial Blood Glucose Arterial Blood Ionized Calcium Urine WBC (Auto) Urine Creatinine 08/27/20 11:19 WBC RBC Hgb Hct MCH RDW Lymph % (Auto) Lymph # (Auto) Seg Neutrophils % Seg Neuts % (Manual) Lymphocytes % (Manual) Seg Neutrophils # Seg Neutrophils # Man Lymphocytes # (Manual) D-Dimer ABG pH POC ABG pO2 ABG Hemoglobin ABG Oxyhemoglobin ABG Sodium ABG Potassium ABG Glucose Carboxyhemoglobin Potassium Carbon Dioxide BUN Creatinine Glucose POC Glucose 143 H Lactic Acid Calcium AST ALT Troponin T C-Reactive Protein Total Protein Albumin Arterial Blood Glucose Arterial Blood Ionized Calcium Urine WBC (Auto) Urine Creatinine Chest x-ray: image reviewed (very lordotic film; + basilar atelectasis; stable t o slightly worse from yesterday) Allied health notes reviewed: nursing
[2020-08-28] MEDS: METOPROLOL TARTRATE 5 MG/5 ML INJ IV SCH ×4 (01:57→19:42)
--- NOTE | 2020-08-28 03:33 | XRay Report ---
CHEST 1 VIEW INDICATION / CLINICAL INFORMATION: follow up respiratory failure. FINDINGS: SUPPORT DEVICES: No significant change in position. HEART / MEDIASTINUM: The cardiomediastinal silhouette has not significantly changed in the interim. LUNGS / PLEURA: Persistent severe pleural parenchymal opacities project throughout both lungs. Signer Name: Luis Taylor MD Signed: 08/28/2020 3:28 AM Workstation Name: [id number]
[2020-08-28] MEDS: INSULIN LISPRO 100 UNIT/ML SUB-Q SCH ×5 (03:43→23:25)
[2020-08-28 04:10] LABS: ABG Base Excess 0.8 mmol/L (-2.0-3.0); ABG Methemoglobin 0.6 % (0.0-1.5); ABG Oxygen Saturation 95.9 % (95.0-99.0); ABG PCO2 52.4 mm Hg; ABG PH 7.329 pH Units (7.350-7.450); ABG PO2 76.7 mm Hg (80.0-90.0)
[2020-08-28 04:47] LABS: Hematocrit 23.6 % (30.3-42.9); Hemoglobin 7.8 gm/dl (10.1-14.3); Mean Corpuscular HGB Conc 33 % (30-34); Mean Corpuscular Volume 84 fl (79-97); Platelet Count 188 K/mm3 (140-440); Red Cell Distribution Width 15.8 % (13.2-15.2)
[2020-08-28 05:17] LABS: Alanine Aminotransferase 27 units/L (7-56); Albumin 2.4 g/dL (3.9-5); Blood Urea Nitrogen 64 mg/dL (7-17); Hemolysis Index 2
[2020-08-28 05:27] LABS: BUN/Creatinine Ratio 17
[2020-08-28] MEDS: FUROSEMIDE 40 MG/4 ML INJ IV SCH (06:27)
--- NOTE | 2020-08-28 07:58 | Progress Note ---
Assessment and Plan Acute hypoxemic respiratory failure Cardiac arrest with ROSC Acute encephalopathy Multifocal pneumonia Possible bilateral pulmonary edema Congestive heart failure with an acute exacerbation Anemia Hyperkalemia Lactic acidosis Acute kidney injury Elevated serum transaminases Non-ST elevation AK Oropharyngeal dysphagia -reduced set rate to 12/min for respiratory alkalosis - continue totitrate supplemental oxygen for target sPO2 89-92% -Follow up on EEG- called for it to be done - VAP bundle addressed - continue lung protective strategies - continue bronchodilators with pulmonary hygiene per RT - continue Daily SAT and SBT assessment as tolerated - continue accuchecks with glycemic control per SSI (while critically ill target blood glucose of 140-180 mg/dL; avoid hypoglycemia) - avoid nephrotoxins, renally dose all medications - continue to avoid benzodiazepines, reduce the possibility of delirium - enteral nutritional support at goal rate as tolerated -Stress ulcer and VTE prophylaxis - PT/OT/ROM exercises - continue mobility, off loading and frequent turning per facility protocol for pressure ulcer prevention - continue to monitor hemodynamics closely - continue other care per attending / other consultants COVID SPECIFIC INTERVENTIONS - COVID-19 PCR negative CONDITION: CRITICAL PROGNOSIS: GUARDED CODE STATUS: FULL CODE The high probability of a clinically significant, sudden or life-threatening deterioration of the [respiratory, cardiovascular & neurologic] system(s) required my full and direct attention, intervention and personal management. The aggregate critical care time was [33] minutes without overlap. Time includes spent on; [x] Data Review and interpretation [x] Patient assessment and monitoring of vital signs [x] Documentation [x] Medication orders and management Subjective Date of service: 08/28/20 Principal diagnosis: Ac. hypoxemic resp failure; Cardiac arrest; AMS; AE-CHF; Hyperkalemia; FLORIDALMA Interval history: Patient is seen today for: Acute hypoxemic respiratory failure; Cardiac arrest with ROSC; Acute encephalopathy; Multifocal pneumonia; pulmonary edema; AE-CHF; Hyperkalemia; FLORIDALMA; NSTEMI Seen and examined at bedside; 24hour events reviewed; nursing and respiratory care staff consulted; no adverse overnight events reported to me; resting in bed; remains on MVS; AMS is persistent; afebrile; no emesis or overt aspiration and no seizures EEG pending;Poor blood pressure control with episodes of tachycardia Objective Vital Signs - 12hr 08/27/20 08/27/20 08/27/20 20:00 20:10 20:20 Temperature 99.0 F Pulse Rate 76 78 79 Respiratory 14 15 13 Rate Blood Pressure 148/63 150/62 150/62 O2 Sat by Pulse 92 95 95 Oximetry 08/27/20 08/27/20 08/27/20 20:30 20:40 20:50 Temperature Pulse Rate 80 80 79 Respiratory 13 13 12 Rate Blood Pressure 158/70 158/70 158/70 O2 Sat by Pulse 94 95 96 Oximetry 08/27/20 08/27/20 08/27/20 21:00 21:10 21:20 Temperature Pulse Rate 78 78 78 Respiratory 14 14 14 Rate Blood Pressure 158/69 158/69 158/69 O2 Sat by Pulse 95 95 95 Oximetry 08/27/20 08/27/20 08/27/20 21:30 21:40 21:50 Temperature Pulse Rate 78 77 77 Respiratory 14 13 14 Rate Blood Pressure 151/68 151/68 151/68 O2 Sat by Pulse 95 96 96 Oximetry 08/27/20 08/27/20 08/27/20 22:00 22:10 22:20 Temperature Pulse Rate 77 76 76 Respiratory 14 13 15 Rate Blood Pressure 154/69 154/69 154/69 O2 Sat by Pulse 96 95 96 Oximetry 08/27/20 08/27/20 08/27/20 22:30 22:40 22:48 Temperature Pulse Rate 76 75 74 Respiratory 14 14 14 Rate Blood Pressure 148/65 148/65 148/65 O2 Sat by Pulse 95 95 95 Oximetry 08/27/20 08/27/20 08/27/20 22:50 23:00 23:10 Temperature Pulse Rate 74 74 73 Respiratory 12 17 15 Rate Blood Pressure 148/65 146/65 146/65 O2 Sat by Pulse 94 94 95 Oximetry 08/27/20 08/27/20 08/27/20 23:20 23:30 23:33 Temperature Pulse Rate 73 73 73 Respiratory 14 14 Rate Blood Pressure 146/65 146/59 146/65 O2 Sat by Pulse 96 95 95 Oximetry 08/27/20 08/27/20 08/28/20 23:40 23:50 00:00 Temperature 99.6 F Pulse Rate 71 71 71 Respiratory 14 14 13 Rate Blood Pressure 146/59 146/59 144/59 O2 Sat by Pulse 96 96 95 Oximetry 08/28/20 08/28/20 08/28/20 00:10 00:20 00:30 Temperature Pulse Rate 70 71 72 Respiratory 14 14 14 Rate Blood Pressure 144/59 144/59 143/57 O2 Sat by Pulse 96 96 94 Oximetry 08/28/20 08/28/20 08/28/20 00:40 00:50 01:00 Temperature Pulse Rate 73 71 71 Respiratory 14 14 14 Rate Blood Pressure 143/57 143/57 148/55 O2 Sat by Pulse 94 94 92 Oximetry 08/28/20 08/28/20 08/28/20 01:10 01:20 01:30 Temperature Pulse Rate 70 70 70 Respiratory 14 15 14 Rate Blood Pressure 148/55 148/55 137/52 O2 Sat by Pulse 93 93 93 Oximetry 08/28/20 08/28/20 08/28/20 01:40 01:50 02:00 Temperature Pulse Rate 90 87 87 Respiratory 14 14 14 Rate Blood Pressure 137/52 137/52 143/55 O2 Sat by Pulse 92 92 90 Oximetry 08/28/20 08/28/20 08/28/20 02:10 02:20 02:30 Temperature Pulse Rate 74 73 73 Respiratory 14 14 14 Rate Blood Pressure 143/55 143/55 140/55 O2 Sat by Pulse 91 91 92 Oximetry 08/28/20 08/28/20 08/28/20 02:40 02:50 03:00 Temperature Pulse Rate 71 70 69 Respiratory 14 14 14 Rate Blood Pressure 140/55 143/55 127/51 O2 Sat by Pulse 93 93 93 Oximetry 08/28/20 08/28/20 08/28/20 03:10 03:20 03:30 Temperature Pulse Rate 69 68 68 Respiratory 14 14 14 Rate Blood Pressure 127/51 127/51 133/56 O2 Sat by Pulse 94 95 94 Oximetry 08/28/20 08/28/20 08/28/20 03:36 03:40 03:50 Temperature 99.1 F Pulse Rate 67 67 66 Respiratory 14 14 Rate Blood Pressure 127/51 133/56 133/56 O2 Sat by Pulse 95 95 96 Oximetry 08/28/20 08/28/20 08/28/20 04:00 04:10 04:20 Temperature Pulse Rate 66 66 65 Respiratory 14 14 14 Rate Blood Pressure 134/54 134/54 134/54 O2 Sat by Pulse 95 96 97 Oximetry 08/28/20 08/28/20 08/28/20 04:30 04:40 04:50 Temperature Pulse Rate 65 64 66 Respiratory 14 14 14 Rate Blood Pressure 135/55 135/55 135/55 O2 Sat by Pulse 96 98 96 Oximetry 08/28/20 08/28/20 08/28/20 05:00 05:10 05:20 Temperature Pulse Rate 66 65 65 Respiratory 14 14 14 Rate Blood Pressure 135/55 135/55 135/55 O2 Sat by Pulse 95 97 97 Oximetry 08/28/20 08/28/20 08/28/20 05:30 05:40 05:50 Temperature Pulse Rate 66 66 65 Respiratory 14 14 14 Rate Blood Pressure 129/52 129/52 129/52 O2 Sat by Pulse 96 97 97 Oximetry 08/28/20 08/28/20 08/28/20 06:00 06:10 06:20 Temperature Pulse Rate 65 64 64 Respiratory 18 18 18 Rate Blood Pressure 132/54 132/54 132/54 O2 Sat by Pulse 97 99 99 Oximetry 08/28/20 08/28/20 08/28/20 06:30 06:40 06:50 Temperature Pulse Rate 79 84 68 Respiratory 18 15 18 Rate Blood Pressure 132/54 181/74 181/74 O2 Sat by Pulse 98 99 98 Oximetry 08/28/20 08/28/20 08/28/20 07:00 07:10 07:20 Temperature 97.8 F Pulse Rate 66 64 65 Respiratory 18 18 19 Rate Blood Pressure 167/69 167/69 167/69 O2 Sat by Pulse 96 98 98 Oximetry 08/28/20 08/28/20 07:30 07:40 Temperature Pulse Rate 67 70 Respiratory 18 18 Rate Blood Pressure 187/75 187/75 O2 Sat by Pulse 99 Oximetry Constitutional: other (elderly obese female with mildly increased respirtatory effort at rest on MVS ) Eyes: non-icteric ENT: oropharynx moist, other (ETT 24 cm DIMAS) Neck: supple, no lymphadenopathy, no JVD Effort: mildly labored Ascultation: Bilateral: diminished breath sounds, rhonchi Percussion: Bilateral: not dull Cardiovascular: regular rate and rhythm, other (S1,S2) Gastrointestinal: normoactive bowel sounds, soft, non-tender, non-distended Integumentary: normal Extremities: no cyanosis, no edema, pulses normal, no ischemia or petechiae Neurologic: pupils equal and round, unable to assess, other (encephalopathic) Psychiatric: other (unable to assess re: AMS) CBC and BMP: 09/01/20 09:41 09/01/20 09:41 ABG, PT/INR, D-dimer: ABG ABG pH 7.329 pH Units (7.350-7.450) L 08/28/20 03:50 POC ABG pCO2 33.7 mmHg (32.0-48.0) 08/27/20 04:10 ABG pCO2 52.4 mm Hg 08/28/20 03:50 POC ABG pO2 74.9 mmHg (83-108) L 08/27/20 04:10 ABG pO2 76.7 mm Hg (80.0-90.0) L 08/28/20 03:50 POC ABG HCO3 23.1 08/27/20 04:10 ABG O2 Saturation 95.9 % (95.0-99.0) 08/28/20 03:50 PT/INR, D-dimer D-Dimer > 92706 ng/mlDDU (0-234) H 08/25/20 11:23 Abnormal lab findings: Abnormal Labs 08/25/20 08/25/20 08/25/20 11:14 11:17 11:23 WBC 11.5 H RBC 3.22 L Hgb 8.6 L Hct 27.6 L MCH 27 L RDW 15.6 H Lymph % (Auto) Lymph # (Auto) Seg Neutrophils % Seg Neuts % (Manual) 89.0 H Lymphocytes % (Manual) 5.0 L Seg Neutrophils # Seg Neutrophils # Man 10.2 H Lymphocytes # (Manual) 0.6 L D-Dimer ABG pH 7.290 L POC ABG pO2 161.1 H ABG pO2 ABG HCO3 ABG Hemoglobin 8.9 L ABG Oxyhemoglobin 98.6 H ABG Sodium 135.2 L ABG Potassium 5.9 H ABG Glucose 210 H Oxyhemoglobin Carboxyhemoglobin 0.4 L Sodium Potassium Carbon Dioxide BUN Creatinine Glucose POC Glucose Lactic Acid Calcium AST ALT Troponin T C-Reactive Protein Total Protein Albumin Arterial Blood Glucose 210 H Arterial Blood Ionized Calcium 4.4 L Urine WBC (Auto) 31.0 H Urine Creatinine 08/25/20 08/25/20 08/25/20 11:23 11:23 11:23 WBC RBC Hgb Hct MCH RDW Lymph % (Auto) Lymph # (Auto) Seg Neutrophils % Seg Neuts % (Manual) Lymphocytes % (Manual) Seg Neutrophils # Seg Neutrophils # Man Lymphocytes # (Manual) D-Dimer > 72626 H ABG pH POC ABG pO2 ABG pO2 ABG HCO3 ABG Hemoglobin ABG Oxyhemoglobin ABG Sodium ABG Potassium ABG Glucose Oxyhemoglobin Carboxyhemoglobin Sodium Potassium 6.4 H* Carbon Dioxide 21 L BUN 52 H Creatinine 3.5 H Glucose 194 H POC Glucose Lactic Acid 3.30 H* Calcium 8.1 L AST 103 H ALT 77 H Troponin T 0.057 H C-Reactive Protein Total Protein 5.8 L Albumin 3.4 L Arterial Blood Glucose Arterial Blood Ionized Calcium Urine WBC (Auto) Urine Creatinine 08/25/20 08/25/20 08/25/20 13:51 15:45 20:34 WBC RBC Hgb Hct MCH RDW Lymph % (Auto) Lymph # (Auto) Seg Neutrophils % Seg Neuts % (Manual) Lymphocytes % (Manual) Seg Neutrophils # Seg Neutrophils # Man Lymphocytes # (Manual) D-Dimer ABG pH POC ABG pO2 66.3 L ABG pO2 ABG HCO3 ABG Hemoglobin 9.1 L ABG Oxyhemoglobin 92.5 L ABG Sodium ABG Potassium ABG Glucose 225 H Oxyhemoglobin Carboxyhemoglobin Sodium Potassium Carbon Dioxide BUN Creatinine Glucose POC Glucose 188 H 233 H Lactic Acid Calcium AST ALT Troponin T C-Reactive Protein Total Protein Albumin Arterial Blood Glucose 225 H Arterial Blood Ionized Calcium 4.4 L Urine WBC (Auto) Urine Creatinine 08/26/20 08/26/20 08/26/20 04:14 05:04 05:04 WBC 17.9 H RBC 3.05 L Hgb 8.3 L Hct 25.6 L MCH 27 L RDW 15.3 H Lymph % (Auto) Lymph # (Auto) Seg Neutrophils % Seg Neuts % (Manual) 96.0 H Lymphocytes % (Manual) 1.0 L Seg Neutrophils # Seg Neutrophils # Man 17.2 H Lymphocytes # (Manual) 0.2 L D-Dimer ABG pH POC ABG pO2 131.3 H ABG pO2 ABG HCO3 ABG Hemoglobin 8.6 L ABG Oxyhemoglobin 98.2 H ABG Sodium ABG Potassium ABG Glucose 182 H Oxyhemoglobin Carboxyhemoglobin 0.2 L Sodium Potassium Carbon Dioxide BUN 56 H Creatinine 3.4 H Glucose 187 H POC Glucose Lactic Acid Calcium 8.3 L AST 54 H ALT 57 H Troponin T C-Reactive Protein Total Protein 5.4 L Albumin 2.9 L Arterial Blood Glucose 182 H Arterial Blood Ionized Calcium 4.3 L Urine WBC (Auto) Urine Creatinine 08/26/20 08/26/20 08/26/20 05:40 07:36 11:54 WBC RBC Hgb Hct MCH RDW Lymph % (Auto) Lymph # (Auto) Seg Neutrophils % Seg Neuts % (Manual) Lymphocytes % (Manual) Seg Neutrophils # Seg Neutrophils # Man Lymphocytes # (Manual) D-Dimer ABG pH POC ABG pO2 ABG pO2 ABG HCO3 ABG Hemoglobin ABG Oxyhemoglobin ABG Sodium ABG Potassium ABG Glucose Oxyhemoglobin Carboxyhemoglobin Sodium Potassium Carbon Dioxide BUN Creatinine Glucose POC Glucose 179 H 171 H 190 H Lactic Acid Calcium AST ALT Troponin T C-Reactive Protein Total Protein Albumin Arterial Blood Glucose Arterial Blood Ionized Calcium Urine WBC (Auto) Urine Creatinine 08/26/20 08/26/20 08/26/20 15:14 17:00 18:50 WBC RBC Hgb Hct MCH RDW Lymph % (Auto) Lymph # (Auto) Seg Neutrophils % Seg Neuts % (Manual) Lymphocytes % (Manual) Seg Neutrophils # Seg Neutrophils # Man Lymphocytes # (Manual) D-Dimer ABG pH POC ABG pO2 ABG pO2 ABG HCO3 ABG Hemoglobin ABG Oxyhemoglobin ABG Sodium ABG Potassium ABG Glucose Oxyhemoglobin Carboxyhemoglobin Sodium Potassium Carbon Dioxide BUN Creatinine Glucose POC Glucose 158 H Lactic Acid Calcium AST ALT Troponin T C-Reactive Protein 7.80 H Total Protein Albumin Arterial Blood Glucose Arterial Blood Ionized Calcium Urine WBC (Auto) Urine Creatinine 67.4 H 08/26/20 08/27/20 08/27/20 22:01 04:10 05:12 WBC RBC Hgb Hct MCH RDW Lymph % (Auto) Lymph # (Auto) Seg Neutrophils % Seg Neuts % (Manual) Lymphocytes % (Manual) Seg Neutrophils # Seg Neutrophils # Man Lymphocytes # (Manual) D-Dimer ABG pH 7.454 H POC ABG pO2 74.9 L ABG pO2 ABG HCO3 ABG Hemoglobin 7.9 L ABG Oxyhemoglobin ABG Sodium ABG Potassium ABG Glucose 117 H Oxyhemoglobin Carboxyhemoglobin Sodium Potassium Carbon Dioxide BUN Creatinine Glucose POC Glucose 122 H 117 H Lactic Acid Calcium AST ALT Troponin T C-Reactive Protein Total Protein Albumin Arterial Blood Glucose 117 H Arterial Blood Ionized Calcium 4.4 L Urine WBC (Auto) Urine Creatinine 08/27/20 08/27/20 08/27/20 07:24 07:24 11:08 WBC 12.7 H RBC 2.92 L Hgb 8.1 L Hct 24.4 L MCH RDW 15.4 H Lymph % (Auto) 5.9 L Lymph # (Auto) 0.8 L Seg Neutrophils % 86.9 H Seg Neuts % (Manual) Lymphocytes % (Manual) Seg Neutrophils # 11.0 H Seg Neutrophils # Man Lymphocytes # (Manual) D-Dimer ABG pH POC ABG pO2 ABG pO2 ABG HCO3 ABG Hemoglobin ABG Oxyhemoglobin ABG Sodium ABG Potassium ABG Glucose Oxyhemoglobin Carboxyhemoglobin Sodium Potassium Carbon Dioxide BUN 60 H Creatinine 3.6 H Glucose 135 H POC Glucose 139 H Lactic Acid Calcium AST ALT Troponin T C-Reactive Protein Total Protein 5.3 L Albumin 2.6 L Arterial Blood Glucose Arterial Blood Ionized Calcium Urine WBC (Auto) Urine Creatinine 08/27/20 08/27/20 08/27/20 11:19 17:31 23:25 WBC RBC Hgb Hct MCH RDW Lymph % (Auto) Lymph # (Auto) Seg Neutrophils % Seg Neuts % (Manual) Lymphocytes % (Manual) Seg Neutrophils # Seg Neutrophils # Man Lymphocytes # (Manual) D-Dimer ABG pH POC ABG pO2 ABG pO2 ABG HCO3 ABG Hemoglobin ABG Oxyhemoglobin ABG Sodium ABG Potassium ABG Glucose Oxyhemoglobin Carboxyhemoglobin Sodium Potassium Carbon Dioxide BUN Creatinine Glucose POC Glucose 143 H 140 H 123 H Lactic Acid Calcium AST ALT Troponin T C-Reactive Protein Total Protein Albumin Arterial Blood Glucose Arterial Blood Ionized Calcium Urine WBC (Auto) Urine Creatinine 08/28/20 08/28/20 08/28/20 03:50 04:19 04:19 WBC RBC 2.80 L Hgb 7.8 L Hct 23.6 L MCH RDW 15.8 H Lymph % (Auto) Lymph # (Auto) Seg Neutrophils % Seg Neuts % (Manual) Lymphocytes % (Manual) Seg Neutrophils # Seg Neutrophils # Man Lymphocytes # (Manual) D-Dimer ABG pH 7.329 L POC ABG pO2 ABG pO2 76.7 L ABG HCO3 27.0 H ABG Hemoglobin 7.5 L ABG Oxyhemoglobin ABG Sodium ABG Potassium ABG Glucose Oxyhemoglobin 93.6 L Carboxyhemoglobin Sodium 135 L Potassium Carbon Dioxide BUN 64 H Creatinine 3.8 H Glucose 143 H POC Glucose Lactic Acid Calcium 8.0 L AST ALT Troponin T C-Reactive Protein Total Protein 4.8 L Albumin 2.4 L Arterial Blood Glucose Arterial Blood Ionized Calcium Urine WBC (Auto) Urine Creatinine 08/28/20 05:35 WBC RBC Hgb Hct MCH RDW Lymph % (Auto) Lymph # (Auto) Seg Neutrophils % Seg Neuts % (Manual) Lymphocytes % (Manual) Seg Neutrophils # Seg Neutrophils # Man Lymphocytes # (Manual) D-Dimer ABG pH POC ABG pO2 ABG pO2 ABG HCO3 ABG Hemoglobin ABG Oxyhemoglobin ABG Sodium ABG Potassium ABG Glucose Oxyhemoglobin Carboxyhemoglobin Sodium Potassium Carbon Dioxide BUN Creatinine Glucose POC Glucose 147 H Lactic Acid Calcium AST ALT Troponin T C-Reactive Protein Total Protein Albumin Arterial Blood Glucose Arterial Blood Ionized Calcium Urine WBC (Auto) Urine Creatinine Allied health notes reviewed: nursing
[2020-08-28] MEDS: hydrALAZINE 20 MG/1 ML INJ IV PRN ×3 (08:14→21:22)
--- NOTE | 2020-08-28 08:28 | Progress Note ---
Assessment and Plan 1. Acute kidney injury: Vasomotor FLORIDALMA superimposed on CKD stage 4 in the setting Cardiac arrest. Low FeNa. CT abdomen negative for hydro. Monitor renal function. Creatinine level is increasing. Non-oliguric. Renal prognosis is guarded. Avoid nephrotoxic agents. Meds dosage based on GFR. Monitor for [employer] needs. No acute indication for [employer] today. 2. FEN: Hyperkalemia, improved. Metabolic acidosis, improved. Monitor lytes. 3. Acute respiratory failure with hypoxia: 2/2 b/p pneumonia. Covid test negative. Intubated, on vent. Abx for CAP. Followed by Pulmonary. 4. S/p OOH Cardiac arrest: Monitor. Followed by Cards. 5. Diabetes mellitus type 2: Follow blood glucose. 6. Hypertension: Monitor BP. 7. Anemia, POA: Monitor. 8. Anoxic encephalopathy. Subjective: Patient was seen and examined at the bedside. Examination: General appearance: well-developed, well-nourished, appears stated age, intubated, on vent HEENT: ATNC, pupils not reacting to light Neck: supple Respiratory: coarse breath sounds Cardiology: regular, S1S2, no murmur Gastrointestinal: soft, bowel sounds heard, not tender Integumentary: no rash, warm and dry Neurologic: not responding Ext: no edema : Christina catheter Subjective Date of service: 08/28/20 Principal diagnosis: Ac. hypoxemic resp failure; Cardiac arrest; AMS; AE-CHF; Hyperkalemia; FLORIDALMA Objective - Vital Signs Vital signs: Vital Signs - 12hr 08/27/20 08/27/20 08/27/20 20:30 20:40 20:50 Temperature Pulse Rate 80 80 79 Respiratory 13 13 12 Rate Blood Pressure 158/70 158/70 158/70 O2 Sat by Pulse 94 95 96 Oximetry 08/27/20 08/27/20 08/27/20 21:00 21:10 21:20 Temperature Pulse Rate 78 78 78 Respiratory 14 14 14 Rate Blood Pressure 158/69 158/69 158/69 O2 Sat by Pulse 95 95 95 Oximetry 08/27/20 08/27/20 08/27/20 21:30 21:40 21:50 Temperature Pulse Rate 78 77 77 Respiratory 14 13 14 Rate Blood Pressure 151/68 151/68 151/68 O2 Sat by Pulse 95 96 96 Oximetry 08/27/20 08/27/2021 22:00 22:10 22:20 Temperature Pulse Rate 77 76 76 Respiratory 14 13 15 Rate Blood Pressure 154/69 154/69 154/69 O2 Sat by Pulse 96 95 96 Oximetry 08/27/20 08/27/20 08/27/20 22:30 22:40 22:48 Temperature Pulse Rate 76 75 74 Respiratory 14 14 14 Rate Blood Pressure 148/65 148/65 148/65 O2 Sat by Pulse 95 95 95 Oximetry 08/27/20 08/27/20 08/27/20 22:50 23:00 23:10 Temperature Pulse Rate 74 74 73 Respiratory 12 17 15 Rate Blood Pressure 148/65 146/65 146/65 O2 Sat by Pulse 94 94 95 Oximetry 08/27/20 08/27/20 08/27/20 23:20 23:30 23:33 Temperature Pulse Rate 73 73 73 Respiratory 14 14 Rate Blood Pressure 146/65 146/59 146/65 O2 Sat by Pulse 96 95 95 Oximetry 08/27/20 08/27/20 08/28/20 23:40 23:50 00:00 Temperature 99.6 F Pulse Rate 71 71 71 Respiratory 14 14 13 Rate Blood Pressure 146/59 146/59 144/59 O2 Sat by Pulse 96 96 95 Oximetry 08/28/20 08/28/20 08/28/20 00:10 00:20 00:30 Temperature Pulse Rate 70 71 72 Respiratory 14 14 14 Rate Blood Pressure 144/59 144/59 143/57 O2 Sat by Pulse 96 96 94 Oximetry 08/28/20 08/28/20 08/28/20 00:40 00:50 01:00 Temperature Pulse Rate 73 71 71 Respiratory 14 14 14 Rate Blood Pressure 143/57 143/57 148/55 O2 Sat by Pulse 94 94 92 Oximetry 08/28/20 08/28/20 08/28/20 01:10 01:20 01:30 Temperature Pulse Rate 70 70 70 Respiratory 14 15 14 Rate Blood Pressure 148/55 148/55 137/52 O2 Sat by Pulse 93 93 93 Oximetry 08/28/20 08/28/20 08/28/20 01:40 01:50 02:00 Temperature Pulse Rate 90 87 87 Respiratory 14 14 14 Rate Blood Pressure 137/52 137/52 143/55 O2 Sat by Pulse 92 92 90 Oximetry 08/28/20 08/28/20 08/28/20 02:10 02:20 02:30 Temperature Pulse Rate 74 73 73 Respiratory 14 14 14 Rate Blood Pressure 143/55 143/55 140/55 O2 Sat by Pulse 91 91 92 Oximetry 08/28/20 08/28/20 08/28/20 02:40 02:50 03:00 Temperature Pulse Rate 71 70 69 Respiratory 14 14 14 Rate Blood Pressure 140/55 143/55 127/51 O2 Sat by Pulse 93 93 93 Oximetry 08/28/20 08/28/20 08/28/20 03:10 03:20 03:30 Temperature Pulse Rate 69 68 68 Respiratory 14 14 14 Rate Blood Pressure 127/51 127/51 133/56 O2 Sat by Pulse 94 95 94 Oximetry 08/28/20 08/28/20 08/28/20 03:36 03:40 03:50 Temperature 99.1 F Pulse Rate 67 67 66 Respiratory 14 14 Rate Blood Pressure 127/51 133/56 133/56 O2 Sat by Pulse 95 95 96 Oximetry 08/28/20 08/28/20 08/28/20 04:00 04:10 04:20 Temperature Pulse Rate 66 66 65 Respiratory 14 14 14 Rate Blood Pressure 134/54 134/54 134/54 O2 Sat by Pulse 95 96 97 Oximetry 08/28/20 08/28/20 08/28/20 04:30 04:40 04:50 Temperature Pulse Rate 65 64 66 Respiratory 14 14 14 Rate Blood Pressure 135/55 135/55 135/55 O2 Sat by Pulse 96 98 96 Oximetry 08/28/20 08/28/20 08/28/20 05:00 05:10 05:20 Temperature Pulse Rate 66 65 65 Respiratory 14 14 14 Rate Blood Pressure 135/55 135/55 135/55 O2 Sat by Pulse 95 97 97 Oximetry 08/28/20 08/28/20 08/28/20 05:30 05:40 05:50 Temperature Pulse Rate 66 66 65 Respiratory 14 14 14 Rate Blood Pressure 129/52 129/52 129/52 O2 Sat by Pulse 96 97 97 Oximetry 08/28/20 08/28/20 08/28/20 06:00 06:10 06:20 Temperature Pulse Rate 65 64 64 Respiratory 18 18 18 Rate Blood Pressure 132/54 132/54 132/54 O2 Sat by Pulse 97 99 99 Oximetry 08/28/20 08/28/20 08/28/20 06:30 06:40 06:50 Temperature Pulse Rate 79 84 68 Respiratory 18 15 18 Rate Blood Pressure 132/54 181/74 181/74 O2 Sat by Pulse 98 99 98 Oximetry 08/28/20 08/28/20 08/28/20 07:00 07:10 07:20 Temperature 97.8 F Pulse Rate 66 64 65 Respiratory 18 18 19 Rate Blood Pressure 167/69 167/69 167/69 O2 Sat by Pulse 96 98 98 Oximetry 08/28/20 08/28/20 08/28/20 07:30 07:40 08:14 Temperature Pulse Rate 67 70 69 Respiratory 18 18 Rate Blood Pressure 187/75 187/75 211/81 O2 Sat by Pulse 99 Oximetry - Lab 08/28/20 04:19 08/28/20 04:19 Most recent lab results ABG pH 7.329 pH Units (7.350-7.450) L 08/28/20 03:50 ABG pCO2 52.4 mm Hg 08/28/20 03:50 ABG pO2 76.7 mm Hg (80.0-90.0) L 08/28/20 03:50 ABG HCO3 27.0 mmol/L (20.0-26.0) H 08/28/20 03:50 ABG O2 Saturation 95.9 % (95.0-99.0) 08/28/20 03:50 Calcium 8.0 mg/dL (8.4-10.2) L 08/28/20 04:19 Urine Creatinine 67.4 mg/dL (0.1-20.0) H 08/26/20 17:00 Urine Sodium 12 mmol/L 08/26/20 17:00 Medications & Allergies - Medications Allergies/Adverse Reactions: Allergies No Known Allergies Allergy (Verified 07/31/18 07:06) Home Medications: Home Medications Medication Instructions Recorded Confirmed Last Taken Type Albuterol Mdi (or & Nicu Only) 2 puff IH QID PRN #1 inhalation 08/07/18 03/14/20 Unknown Rx [ProAir HFA Inhaler] Sucralfate [Carafate] 1 gm PO ACHS #30 tablet 08/07/18 03/14/20 03/13/20 Rx Insulin Regular, Human [HumuLIN R] 0 unit SQ AC #1 vial 08/11/18 03/14/20 Unknown Rx Labetalol HCl [Labetalol 300mg TAB] 300 mg PO BID #60 tablet 11/11/19 03/14/20 03/14/20 Rx Furosemide [Lasix TAB] 80 mg PO DAILY #14 tablet 03/27/20 Unknown Rx Insulin Glargine [Lantus VIAL] 15 units SUB-Q QAM #1 vial 03/27/20 Unknown Rx amLODIPine 10 mg PO QDAY #30 tablet 03/27/20 Unknown Rx Active Medications: Generic Name Dose Route Start Last Admin Trade Name Freq PRN Reason Stop Dose Admin Albuterol 2.5 mg 08/25/20 14:55 Albuterol 2.5 Mg/3 Ml Nebu IH Q3HRT PRN Shortness Of Breath Amlodipine Besylate 5 mg 08/28/20 10:00 Amlodipine 5 Mg Tab PO QDAY TERA Lipase/Protease/Amylase 1 each 08/26/20 12:15 Lipase 10,500/Protease 25,000/Amylase 43,750 (Units) Dr Gu FEEDTUBE PRN PRN For Clogged Feeding Tube Aspirin 81 mg 08/27/20 10:00 08/27/20 09:13 Aspirin 81 Mg Tab Chew PO 81 mg QDAY TERA Administration Atorvastatin Calcium 40 mg 08/26/20 22:00 08/27/20 21:17 Atorvastatin 40 Mg Tab PO 40 mg QHS TERA Administration Azithromycin 250 mg 08/28/20 10:00 Azithromycin 250 Mg Tab PO 08/31/20 10:01 QDAY TERA Protocol Dextrose 50 ml 08/26/20 19:18 Dextrose 50% In Water (25gm) 50 Ml Syringe IV Q30MIN PRN Hypoglycemia Protocol Famotidine 20 mg 08/28/20 10:00 Famotidine 20 Mg Tab PO DAILY TERA Fentanyl 50 mcg 08/26/20 17:11 Fentanyl 100 Mcg/2 Ml Inj IV Q10MIN PRN ANALGESIA Heparin Sodium (Porcine) 5,000 unit 08/26/20 22:00 08/27/20 21:17 Heparin 5,000 Unit/1 Ml Vial SUB-Q 5,000 unit Q12HR TERA Administration Hydralazine HCl 10 mg 08/26/20 01:20 08/28/20 08:14 Hydralazine 20 Mg/1 Ml Inj IV 10 mg Q4HR PRN Administration Blood Pressure Hydrophilic Ointment 1 applic 08/25/20 11:07 08/25/20 11:57 Lip Therapy Vaseline TP 1 applic Q2HR PRN Administration Dry Lips Levetiracetam 500 mg/ Dextrose 105 mls @ 400 mls/hr 08/26/20 10:00 08/27/20 21:17 IV 400 mls/hr Q12HR TERA Administration Propofol 1,000 mg in 100 mls @ 2.838 mls/hr 08/25/20 20:48 08/28/20 00:33 Diprivan 10 Mg/Ml IV 30 mcg/kg/min TITR TERA 17.028 mls/hr Administration Protocol 5 MCG/KG/MIN Ceftriaxone Sodium 2 gm in 100 mls @ 200 mls/hr 08/26/20 11:00 08/27/20 11:28 Rocephin/Ns 2 Gm/100 Ml IV 08/30/20 11:29 200 mls/hr Q24H TERA Administration Protocol Fentanyl Citrate 2,000 mcg in 100 mls @ 4.605 mls/hr 08/26/20 18:00 08/27/20 11:15 Fentanyl Drip Premix IV 1 mcg/kg/hr TITR TERA 4.605 mls/hr Administration Protocol 1 MCG/KG/HR Insulin Human Lispro 0 unit 08/27/20 12:00 08/28/20 03:43 Insulin Lispro 100 Unit/Ml SUB-Q Not Given Q6HR [facility] Protocol Metoprolol Tartrate 2.5 mg 08/27/20 13:30 08/28/20 01:57 Metoprolol Tartrate 5 Mg/5 Ml Inj IV 2.5 mg Q6H TERA Administration Multi-Ingred Cream/Lotion/Oil/Oint 1 applic 08/25/20 11:07 Mineral Oil/Petrolatum, White Ophth Oint 3.5 Gm OU Q4HR PRN Dry Eye(s) Senna/Docusate Sodium 1 tab 08/25/20 22:00 08/27/20 21:17 Sennosides/Docusate Sodium 8.6/50 Mg Tab FEEDTUBE 1 tab BID TERA Administration Simple Syrup 15 ml 08/26/20 12:15 Simple Syrup 15 Ml FEEDTUBE PRN PRN Hypoglycemia Simple Syrup 30 ml 08/26/20 12:15 Simple Syrup 15 Ml FEEDTUBE PRN PRN Hypoglycemia Sodium Bicarbonate 325 mg 08/26/20 12:15 Sodium Bicarbonate 325 Mg Tab FEEDTUBE PRN PRN For Clogged Feeding Tube Sodium Chloride 10 ml 08/25/20 22:00 08/27/20 21:22 Sodium Chloride 0.9% 10 Ml Flush Syringe IV 10 ml BID TERA Administration Sodium Chloride 10 ml 08/25/20 14:55 08/26/20 01:50 Sodium Chloride 0.9% 10 Ml Flush Syringe IV 10 ml PRN PRN Administration LINE FLUSH
[2020-08-28] MEDS: amLODIPine 5 MG TAB PO SCH (09:11)
[2020-08-28] MEDS: AZITHROMYCIN 250 MG TAB PO SCH (09:12)
[2020-08-28] MEDS: HEPARIN 5,000 UNIT/1 ML VIAL SUB-Q SCH ×2 (09:13→21:24)
[2020-08-28] MEDS: FAMOTIDINE 20 MG TAB PO SCH (09:13)
[2020-08-28] MEDS: SENNOSIDES/DOCUSATE SODIUM 8.6/50 MG TAB FEEDTUBE SCH ×2 (09:17→21:23)
[2020-08-28] MEDS: levETIRAcetam 500 MG in DEXTROSE 5% IN WATER 100 ML IV SCH ×2 (09:20→21:22)
[2020-08-28] MEDS: ASPIRIN 81 MG TAB CHEW PO SCH (09:52)
[2020-08-28] MEDS: cefTRIAXone/NS 2 GM/100 ML 2 GM/100 ML BAG IV SCH (10:39)
--- NOTE | 2020-08-28 13:23 | Progress Note ---
Assessment and Plan S/p cardiac arrest with ROSC * Prevailing rhythm during arrest is reportedly asystole. Patient is currently off sedation and unresponsive. Anoxic injury is suspected Acute respiratory failure and suspected multifocal pneumonia * Currently intubated management per primary team Mild cardiomyopathy * Echocardiogram reviewed: LVEF is 40 to 45%. LV is normal size. LV SF is mildly decreased. Mild diastolic dysfunction. Right ventricle is mildly dilated. Moderate pulmonary hypertension RVSP 45 mmHg. * Continue GDMT: Aspirin 81, atorvastatin 40, metoprolol 2.5 mg IV every 6, no NITIN/ARB in setting of FLORIDALMA. Acute kidney injury in setting of chronic renal disease * No NITIN/ARB in setting of FLORIDALMA. Avoid nephrotoxic agents Hypertension * Optimize antihypertensive regimen: Initiate hydralazine 50 mg 3 times daily DVT prophylaxis * Heparin SQ Cardiology will follow This patient was seen in conjunction with Dr. Monge who agrees with assessment and plan of care - Patient Problems (1) Cardiac arrest Current Visit: Yes Status: Acute (2) Anoxic encephalopathy Current Visit: Yes Status: Acute (3) Acute respiratory failure Current Visit: Yes Status: Acute (4) Multifocal pneumonia Current Visit: Yes Status: Acute (5) Acute renal failure superimposed on chronic kidney disease Current Visit: Yes Status: Acute (6) Cardiomyopathy Current Visit: Yes Status: Chronic (7) Diabetes Current Visit: Yes Status: Chronic (8) Hypertension Current Visit: Yes Status: Chronic (9) DVT prophylaxis Current Visit: Yes Status: Acute (10) Anemia Current Visit: Yes Status: Chronic Qualifiers: Anemia type: unspecified type Qualified Code(s): D64.9 - Anemia, unspecified Subjective Date of service: 08/28/20 Principal diagnosis: Ac. hypoxemic resp failure; Cardiac arrest; AMS; AE-CHF; Hyperkalemia; FLORIDALMA Interval history: Patient is currently intubated and unresponsive. Anoxic injury is suspected Telemetry reviewed: Sinus bradycardia 58. No events Objective Last Vital Signs Temp 97.8 F 08/28/20 07:00 Pulse 84 08/28/20 12:13 Resp 18 08/28/20 11:10 BP 198/83 08/28/20 12:13 Pulse Ox 97 08/28/20 11:25 - Physical Examination General: Other (Intubated unresponsive) HEENT: Positive: Normocephaly, Mucus Membranes Moist Neck: Positive: neck supple, trachea midline Cardiac: Positive: Reg Rate and Rhythm Lungs: Positive: Ventilated Respirations Neuro: Positive: Other (Intubated unresponsive) Abdomen: Positive: Unremarkable Skin: Negative: Rash Musculoskeletal: other (Intubated unresponsive) Extremities: Present: upper extr. pulses, lower extr. pulses. Absent: edema - Labs and Meds Cardiac Enzymes 08/28/20 Range/Units 04:19 AST 37 (5-40) units/L CBC 08/28/20 Range/Units 04:19 WBC 10.6 (4.5-11.0) K/mm3 RBC 2.80 L (3.65-5.03) M/mm3 Hgb 7.8 L (10.1-14.3) gm/dl Hct 23.6 L (30.3-42.9) % Plt Count 188 (140-440) K/mm3 Comprehensive Metabolic Panel 08/28/20 Range/Units 04:19 Sodium 135 L (137-145) mmol/L Potassium 4.1 (3.6-5.0) mmol/L Chloride 98.3 (98-107) mmol/L Carbon Dioxide 28 (22-30) mmol/L BUN 64 H (7-17) mg/dL Creatinine 3.8 H (0.6-1.2) mg/dL Glucose 143 H (65-100) mg/dL Calcium 8.0 L (8.4-10.2) mg/dL AST 37 (5-40) units/L ALT 27 (7-56) units/L Alkaline Phosphatase 84 (35-129) units/L Total Protein 4.8 L (6.3-8.2) g/dL Albumin 2.4 L (3.9-5) g/dL - Imaging and Cardiology EKG: report reviewed, image reviewed Echo: report reviewed (Echocardiogram reviewed: LVEF is 40 to 45%. LV is normal size. LV SF is mildly decreased. Mild diastolic dysfunction. Right ventricle is mildly dilated. Moderate pulmonary hypertension RVSP 45 mmHg. ) - Telemetry EKG Rhythm: Sinus Bradycardia - EKG Sinus rhythms and dysrhythmias: sinus bradycardia - Allied health notes Allied health notes reviewed: nursing
[2020-08-28] MEDS: hydrALAZINE 25 MG TAB PO SCH ×2 (14:05→21:22)
--- NOTE | 2020-08-28 15:23 | Consultation ---
History of Present Illness Consult date: 08/28/20 Reason for Consult: s/p Cardiac Arrest; Encephalopathy Chief complaint: Acute Encephalopathy s/p cardiac arrest History of present illness: 75 yo female with chf, htn, dm, ckdx, neuropathy, who presents with an out of hospital cardiac arrest with ROSC requiring at least 15 minutes of ACLS. Patient is noted to be encephalopathic and noted with quadriplegia. Per RN, no clinical seizure activity is noted. Per daughter, the patient has always had problems with her legs. Patient has not received any sedation for >48 hours. Past History Past Medical History: diabetes, GERD, heart failure, hypertension, renal failure, other (See HPI) Past Surgical History: hysterectomy Social history: , lives with family. denies: smoking, alcohol abuse, prescription drug abuse Family history: diabetes, hypertension Medications and Allergies Allergies Allergy/AdvReac Type Severity Reaction Status Date / Time No Known Allergies Allergy Verified 07/31/18 07:06 Home Medications Medication Instructions Recorded Confirmed Last Taken Type Albuterol Mdi (or & Nicu Only) 2 puff IH QID PRN #1 inhalation 08/07/18 03/14/20 Unknown Rx [ProAir HFA Inhaler] Sucralfate [Carafate] 1 gm PO ACHS #30 tablet 08/07/18 03/14/20 03/13/20 Rx Insulin Regular, Human [HumuLIN R] 0 unit SQ AC #1 vial 08/11/18 03/14/20 Unkno wn Rx Labetalol HCl [Labetalol 300mg TAB] 300 mg PO BID #60 tablet 11/11/19 03/14/20 03/14/20 Rx Furosemide [Lasix TAB] 80 mg PO DAILY #14 tablet 03/27/20 Unknown Rx Insulin Glargine [Lantus VIAL] 15 units SUB-Q QAM #1 vial 03/27/20 Unknown Rx amLODIPine 10 mg PO QDAY #30 tablet 03/27/20 Unknown Rx Active Meds: Active Medications Albuterol (Albuterol 2.5 Mg/3 Ml Nebu) 2.5 mg IH Q3HRT PRN PRN Reason: Shortness Of Breath Amlodipine Besylate (Amlodipine 5 Mg Tab) 5 mg PO QDAY TERA Last Admin: 08/28/20 09:11 Dose: 5 mg Documented by: Lipase/Protease/Amylase (Lipase 10,500/Protease 25,000/Amylase 43,750 (Units) Dr Gu) 1 each FEEDTUBE PRN PRN PRN Reason: For Clogged Feeding Tube Aspirin (Aspirin 81 Mg Tab Chew) 81 mg PO QDAY [facility] Last Admin: 08/28/20 09:52 Dose: 81 mg Documented by: Atorvastatin Calcium (Atorvastatin 40 Mg Tab) 40 mg PO QHS [facility] Last Admin: 08/27/20 21:17 Dose: 40 mg Documented by: Azithromycin (Azithromycin 250 Mg Tab) 250 mg PO QDAY [facility]; Protocol Stop: 08/31/20 10:01 Last Admin: 08/28/20 09:12 Dose: 250 mg Documented by: Dextrose (Dextrose 50% In Water (25gm) 50 Ml Syringe) 50 ml IV Q30MIN PRN; Protocol PRN Reason: Hypoglycemia Famotidine (Famotidine 20 Mg Tab) 20 mg PO DAILY [facility] Last Admin: 08/28/20 09:13 Dose: 20 mg Documented by: Fentanyl (Fentanyl 100 Mcg/2 Ml Inj) 50 mcg IV Q10MIN PRN PRN Reason: ANALGESIA Heparin Sodium (Porcine) (Heparin 5,000 Unit/1 Ml Vial) 5,000 unit SUB-Q Q12HR [facility] Last Admin: 08/28/20 09:13 Dose: 5,000 unit Documented by: Hydralazine HCl (Hydralazine 20 Mg/1 Ml Inj) 10 mg IV Q4HR PRN PRN Reason: Blood Pressure Last Admin: 08/28/20 12:13 Dose: 10 mg Documented by: Hydralazine HCl (Hydralazine 25 Mg Tab) 50 mg PO Q8HR [facility] Hydrophilic Ointment (Lip Therapy Vaseline) 1 applic TP Q2HR PRN PRN Reason: Dry Lips Last Admin: 08/25/20 11:57 Dose: 1 applic Documented by: Levetiracetam 500 mg/ Dextrose 105 mls @ 400 mls/hr IV Q12HR [facility] Last Admin: 08/28/20 09:20 Dose: 400 mls/hr Documented by: Propofol (Diprivan 10 Mg/Ml) 1,000 mg in 100 mls @ 2.838 mls/hr IV TITR [facility]; Protocol Last Titration: 08/28/20 07:45 Dose: Infused Documented by: Ceftriaxone Sodium (Rocephin/Ns 2 Gm/100 Ml) 2 gm in 100 mls @ 200 mls/hr IV Q24H [facility]; Protocol Stop: 08/30/20 11:29 Last Admin: 08/28/20 10:39 Dose: 200 mls/hr Documented by: Fentanyl Citrate (Fentanyl Drip Premix) 2,000 mcg in 100 mls @ 4.605 mls/hr IV TITR [facility]; Protocol Last Titration: 08/28/20 08:54 Dose: 0 mcg/kg/hr, 0 mls/hr Documented by: Insulin Human Lispro (Insulin Lispro 100 Unit/Ml) 0 unit SUB-Q Q6HR [facility]; Protocol Last Admin: 08/28/20 11:53 Dose: 2 unit Documented by: Metoprolol Tartrate (Metoprolol Tartrate 5 Mg/5 Ml Inj) 2.5 mg IV Q6H [facility] Last Admin: 08/28/20 07:12 Dose: 2.5 mg Documented by: Multi-Ingred Cream/Lotion/Oil/Oint (Mineral Oil/Petrolatum, White Ophth Oint 3.5 Gm) 1 applic OU Q4HR PRN PRN Reason: Dry Eye(s) Senna/Docusate Sodium (Sennosides/Docusate Sodium 8.6/50 Mg Tab) 1 tab FEEDTUBE BID [facility] Last Admin: 08/28/20 09:17 Dose: 1 tab Documented by: Simple Syrup (Simple Syrup 15 Ml) 15 ml FEEDTUBE PRN PRN PRN Reason: Hypoglycemia Simple Syrup (Simple Syrup 15 Ml) 30 ml FEEDTUBE PRN PRN PRN Reason: Hypoglycemia Sodium Bicarbonate (Sodium Bicarbonate 325 Mg Tab) 325 mg FEEDTUBE PRN PRN PRN Reason: For Clogged Feeding Tube Sodium Chloride (Sodium Chloride 0.9% 10 Ml Flush Syringe) 10 ml IV BID TERA Last Admin: 08/28/20 09:18 Dose: 10 ml Documented by: Sodium Chloride (Sodium Chloride 0.9% 10 Ml Flush Syringe) 10 ml IV PRN PRN PRN Reason: LINE FLUSH Last Admin: 08/26/20 01:50 Dose: 10 ml Documented by: Review of Systems ROS unobtainable: due to mental status Physical Examination - Vital Signs Vital Signs: Vital Signs Pulse Resp Pulse Ox 53 L 16 95 08/25/20 10:42 08/25/20 10:42 08/25/20 10:42 - Physical Exam Narrative exam: Gen: nad, well-nourished, intubated; Head: normocephalic; Eyes: right gaze preference; no ptosis appreciated; ENT: +ETT; CVS: warm and well-perfused; Pulm: no respiratory distress; GI: non-distended, protuberant; Ext: no cyanosis or edema at distal extremities; Skin: no acute rash or hives at distal extremities; Heme: no bruising or ecchymosis at distal extremities; Neuro: comatose, intubated, CN 2 - non-reactive pupils, CN 3, 4, 6 - oculocephalic absent, CN 5/7 - corneal reflex intact on left, CN 9/10 - cough reflex elicited via ETT, CN 11/12 - pt cannot cooperate secondary to LOC; Motor/Sensory - 0/5 at all exts to tactile stimuli; Cerebellar/Gait - pt cannot cooperate secondary to LOC; NIHSS>30; Results - Laboratory Findings CBC and BMP: 08/28/20 04:19 08/28/20 04:19 Abnormal Lab Findings: Abnormal Labs 08/25/20 08/25/20 08/25/20 11:14 11:17 11:23 WBC 11.5 H RBC 3.22 L Hgb 8.6 L Hct 27.6 L MCH 27 L RDW 15.6 H Lymph % (Auto) Lymph # (Auto) Seg Neutrophils % Seg Neuts % (Manual) 89.0 H Lymphocytes % (Manual) 5.0 L Seg Neutrophils # Seg Neutrophils # Man 10.2 H Lymphocytes # (Manual) 0.6 L D-Dimer ABG pH 7.290 L POC ABG pO2 161.1 H ABG pO2 ABG HCO3 ABG Hemoglobin 8.9 L ABG Oxyhemoglobin 98.6 H ABG Sodium 135.2 L ABG Potassium 5.9 H ABG Glucose 210 H Oxyhemoglobin Carboxyhemoglobin 0.4 L Sodium Potassium Carbon Dioxide BUN Creatinine Glucose POC Glucose Lactic Acid Calcium AST ALT Troponin T C-Reactive Protein Total Protein Albumin Arterial Blood Glucose 210 H Arterial Blood Ionized Calcium 4.4 L Urine WBC (Auto) 31.0 H Urine Creatinine 08/25/20 08/25/20 08/25/20 11:23 11:23 11:23 WBC RBC Hgb Hct MCH RDW Lymph % (Auto) Lymph # (Auto) Seg Neutrophils % Seg Neuts % (Manual) Lymphocytes % (Manual) Seg Neutrophils # Seg Neutrophils # Man Lymphocytes # (Manual) D-Dimer > 48896 H ABG pH POC ABG pO2 ABG pO2 ABG HCO3 ABG Hemoglobin ABG Oxyhemoglobin ABG Sodium ABG Potassium ABG Glucose Oxyhemoglobin Carboxyhemoglobin Sodium Potassium 6.4 H* Carbon Dioxide 21 L BUN 52 H Creatinine 3.5 H Glucose 194 H POC Glucose Lactic Acid 3.30 H* Calcium 8.1 L AST 103 H ALT 77 H Troponin T 0.057 H C-Reactive Protein Total Protein 5.8 L Albumin 3.4 L Arterial Blood Glucose Arterial Blood Ionized Calcium Urine WBC (Auto) Urine Creatinine 08/25/20 08/25/20 08/25/20 13:51 15:45 20:34 WBC RBC Hgb Hct MCH RDW Lymph % (Auto) Lymph # (Auto) Seg Neutrophils % Seg Neuts % (Manual) Lymphocytes % (Manual) Seg Neutrophils # Seg Neutrophils # Man Lymphocytes # (Manual) D-Dimer ABG pH POC ABG pO2 66.3 L ABG pO2 ABG HCO3 ABG Hemoglobin 9.1 L ABG Oxyhemoglobin 92.5 L ABG Sodium ABG Potassium ABG Glucose 225 H Oxyhemoglobin Carboxyhemoglobin Sodium Potassium Carbon Dioxide BUN Creatinine Glucose POC Glucose 188 H 233 H Lactic Acid Calcium AST ALT Troponin T C-Reactive Protein Total Protein Albumin Arterial Blood Glucose 225 H Arterial Blood Ionized Calcium 4.4 L Urine WBC (Auto) Urine Creatinine 08/26/20 08/26/20 08/26/20 04:14 05:04 05:04 WBC 17.9 H RBC 3.05 L Hgb 8.3 L Hct 25.6 L MCH 27 L RDW 15.3 H Lymph % (Auto) Lymph # (Auto) Seg Neutrophils % Seg Neuts % (Manual) 96.0 H Lymphocytes % (Manual) 1.0 L Seg Neutrophils # Seg Neutrophils # Man 17.2 H Lymphocytes # (Manual) 0.2 L D-Dimer ABG pH POC ABG pO2 131.3 H ABG pO2 ABG HCO3 ABG Hemoglobin 8.6 L ABG Oxyhemoglobin 98.2 H ABG Sodium ABG Potassium ABG Glucose 182 H Oxyhemoglobin Carboxyhemoglobin 0.2 L Sodium Potassium Carbon Dioxide BUN 56 H Creatinine 3.4 H Glucose 187 H POC Glucose Lactic Acid Calcium 8.3 L AST 54 H ALT 57 H Troponin T C-Reactive Protein Total Protein 5.4 L Albumin 2.9 L Arterial Blood Glucose 182 H Arterial Blood Ionized Calcium 4.3 L Urine WBC (Auto) Urine Creatinine 08/26/20 08/26/20 08/26/20 05:40 07:36 11:54 WBC RBC Hgb Hct MCH RDW Lymph % (Auto) Lymph # (Auto) Seg Neutrophils % Seg Neuts % (Manual) Lymphocytes % (Manual) Seg Neutrophils # Seg Neutrophils # Man Lymphocytes # (Manual) D-Dimer ABG pH POC ABG pO2 ABG pO2 ABG HCO3 ABG Hemoglobin ABG Oxyhemoglobin ABG Sodium ABG Potassium ABG Glucose Oxyhemoglobin Carboxyhemoglobin Sodium Potassium Carbon Dioxide BUN Creatinine Glucose POC Glucose 179 H 171 H 190 H Lactic Acid Calcium AST ALT Troponin T C-Reactive Protein Total Protein Albumin Arterial Blood Glucose Arterial Blood Ionized Calcium Urine WBC (Auto) Urine Creatinine 08/26/20 08/26/20 08/26/20 15:14 17:00 18:50 WBC RBC Hgb Hct MCH RDW Lymph % (Auto) Lymph # (Auto) Seg Neutrophils % Seg Neuts % (Manual) Lymphocytes % (Manual) Seg Neutrophils # Seg Neutrophils # Man Lymphocytes # (Manual) D-Dimer ABG pH POC ABG pO2 ABG pO2 ABG HCO3 ABG Hemoglobin ABG Oxyhemoglobin ABG Sodium ABG Potassium ABG Glucose Oxyhemoglobin Carboxyhemoglobin Sodium Potassium Carbon Dioxide BUN Creatinine Glucose POC Glucose 158 H Lactic Acid Calcium AST ALT Troponin T C-Reactive Protein 7.80 H Total Protein Albumin Arterial Blood Glucose Arterial Blood Ionized Calcium Urine WBC (Auto) Urine Creatinine 67.4 H 08/26/20 08/27/20 08/27/20 22:01 04:10 05:12 WBC RBC Hgb Hct MCH RDW Lymph % (Auto) Lymph # (Auto) Seg Neutrophils % Seg Neuts % (Manual) Lymphocytes % (Manual) Seg Neutrophils # Seg Neutrophils # Man Lymphocytes # (Manual) D-Dimer ABG pH 7.454 H POC ABG pO2 74.9 L ABG pO2 ABG HCO3 ABG Hemoglobin 7.9 L ABG Oxyhemoglobin ABG Sodium ABG Potassium ABG Glucose 117 H Oxyhemoglobin Carboxyhemoglobin Sodium Potassium Carbon Dioxide BUN Creatinine Glucose POC Glucose 122 H 117 H Lactic Acid Calcium AST ALT Troponin T C-Reactive Protein Total Protein Albumin Arterial Blood Glucose 117 H Arterial Blood Ionized Calcium 4.4 L Urine WBC (Auto) Urine Creatinine 08/27/20 08/27/20 08/27/20 07:24 07:24 11:08 WBC 12.7 H RBC 2.92 L Hgb 8.1 L Hct 24.4 L MCH RDW 15.4 H Lymph % (Auto) 5.9 L Lymph # (Auto) 0.8 L Seg Neutrophils % 86.9 H Seg Neuts % (Manual) Lymphocytes % (Manual) Seg Neutrophils # 11.0 H Seg Neutrophils # Man Lymphocytes # (Manual) D-Dimer ABG pH POC ABG pO2 ABG pO2 ABG HCO3 ABG Hemoglobin ABG Oxyhemoglobin ABG Sodium ABG Potassium ABG Glucose Oxyhemoglobin Carboxyhemoglobin Sodium Potassium Carbon Dioxide BUN 60 H Creatinine 3.6 H Glucose 135 H POC Glucose 139 H Lactic Acid Calcium AST ALT Troponin T C-Reactive Protein Total Protein 5.3 L Albumin 2.6 L Arterial Blood Glucose Arterial Blood Ionized Calcium Urine WBC (Auto) Urine Creatinine 08/27/20 08/27/20 08/27/20 11:19 17:31 23:25 WBC RBC Hgb Hct MCH RDW Lymph % (Auto) Lymph # (Auto) Seg Neutrophils % Seg Neuts % (Manual) Lymphocytes % (Manual) Seg Neutrophils # Seg Neutrophils # Man Lymphocytes # (Manual) D-Dimer ABG pH POC ABG pO2 ABG pO2 ABG HCO3 ABG Hemoglobin ABG Oxyhemoglobin ABG Sodium ABG Potassium ABG Glucose Oxyhemoglobin Carboxyhemoglobin Sodium Potassium Carbon Dioxide BUN Creatinine Glucose POC Glucose 143 H 140 H 123 H Lactic Acid Calcium AST ALT Troponin T C-Reactive Protein Total Protein Albumin Arterial Blood Glucose Arterial Blood Ionized Calcium Urine WBC (Auto) Urine Creatinine 08/28/20 08/28/20 08/28/20 03:50 04:19 04:19 WBC RBC 2.80 L Hgb 7.8 L Hct 23.6 L MCH RDW 15.8 H Lymph % (Auto) Lymph # (Auto) Seg Neutrophils % Seg Neuts % (Manual) Lymphocytes % (Manual) Seg Neutrophils # Seg Neutrophils # Man Lymphocytes # (Manual) D-Dimer ABG pH 7.329 L POC ABG pO2 ABG pO2 76.7 L ABG HCO3 27.0 H ABG Hemoglobin 7.5 L ABG Oxyhemoglobin ABG Sodium ABG Potassium ABG Glucose Oxyhemoglobin 93.6 L Carboxyhemoglobin Sodium 135 L Potassium Carbon Dioxide BUN 64 H Creatinine 3.8 H Glucose 143 H POC Glucose Lactic Acid Calcium 8.0 L AST ALT Troponin T C-Reactive Protein Total Protein 4.8 L Albumin 2.4 L Arterial Blood Glucose Arterial Blood Ionized Calcium Urine WBC (Auto) Urine Creatinine 08/28/20 08/28/20 05:35 11:22 WBC RBC Hgb Hct MCH RDW Lymph % (Auto) Lymph # (Auto) Seg Neutrophils % Seg Neuts % (Manual) Lymphocytes % (Manual) Seg Neutrophils # Seg Neutrophils # Man Lymphocytes # (Manual) D-Dimer ABG pH POC ABG pO2 ABG pO2 ABG HCO3 ABG Hemoglobin ABG Oxyhemoglobin ABG Sodium ABG Potassium ABG Glucose Oxyhemoglobin Carboxyhemoglobin Sodium Potassium Carbon Dioxide BUN Creatinine Glucose POC Glucose 147 H 182 H Lactic Acid Calcium AST ALT Troponin T C-Reactive Protein Total Protein Albumin Arterial Blood Glucose Arterial Blood Ionized Calcium Urine WBC (Auto) Urine Creatinine Assessment and Plan 75 yo female with chf, htn, dm, ckdx, neuropathy, who presents with an out of hospital cardiac arrest with ROSC requiring at least 15 minutes of ACLS. Patient is noted to be encephalopathic and noted with quadriplegia. Per RN, no clinical seizure activity is noted. Per daughter, the patient has always had problems with her legs. Patient has not received any sedation for >48 hours. 1. Hypoxic / Anoxic Encephalopathy - recommend MR Brain w/o contrast if pt can tolerate. 2. Seizure - awaiting EEG findings. 3. Metabolic Encephalopathy - in the setting acidosis, respiratory failure, acute on chronic renal failure w/ uremia. 4. Acute Ischemic Stroke - ASA 325 mg NGT qday, statin therapy for a goal LDL of 70; MR Brain w/o contrast w/ further studies based on MR findings. 5. Out of Hospital Cardiac Arrest - cardiac prognosis per Cardiology. 6. HTN - SBP 160-200 mmHg / DBP 80-100 mmHg x 72 hours. 7. DM - maintain euglycemia. 8. Concern for a poor prognosis is raised based on clinical history / exam. Awaiting MRI / EEG findings. Judson Martino MD Neurology
--- NOTE | 2020-08-28 17:46 | Progress Note ---
<ERICHMIN SandeepMaura - Last Filed: 08/28/20 17:50> Assessment and Plan Assessment and plan: This is a 75-year-old female with CHF, OHS DM, CKD, morbid obesity, GERD, hypertension, chronic respiratory failure admitted s/p cardiac arrest S/p cardiac arrest -ACLS per EMS with ROSC -Cardiology, neurology, CCM consulted and appreciate recommendations Acute hypoxic respiratory failure -Chronic respiratory insufficiency at home with 3 L oxygen via nasal cannula -Intubated for airway protection and hypoxia and adamant -Mechanical ventilation -Wean as tolerated -CCM consulted, patient recommendation -VAP bundle -Pulmonary hygiene Anoxic encephalopathy -Neurology consulted, appreciate recommendations -08/25 CT head shows no CT evidence of acute abnormality -08/28 MRI brain without contrast pending Seizure -08/28 EEG pending -Valeri -Seizure/aspiration precautions Multifocal pneumonia -08/25 CXR shows worsening patchy bilateral pulmonary opacities -08/25 CTA chest shows no evidence of pulmonary embolism, bilateral pulmonary processes with large bilateral pleural effusions, pneumonia is a concern, pulmonary edema could be a similar appearance versus pulmonary edema -Antibiotic therapy with Zithromax and Rocephin -Pulmonary hygiene, VAP bundle Mild cardiomyopathy -08/25 echocardiogram shows LVEF 40 to 45%, LV normal size, LV systolic function mildly decreased, mild diastolic dysfunction, mildly dilated right ventricle, pulmonary hypertension RVSP 45 mmHg -Continue aspirin, statin, metoprolol -Avoid NITIN/ARB in setting of FLORIDALMA Elevated D-Dimer -Ddimer >1000 -CTA (-) PE -heparin subq -s/p cardaic arrest FLORIDALMA on CKD secondary to patient under nephropathy -Nephrology consulted, patient recommendations -Strict intake and output -Daily weights -Avoid nephrotoxic medications ? Acute Ischemic Stroke - ASA 325 mg NGT qday, statin therapy for a goal LDL of 70 -MR Brain w/o contrast w/ further studies based on MR findings. Diabetes mellitus -SSI -Accu-Cheks every 6 -Tube feedings Anemia -Admit H/H 8.6/27.8 -Transfuse for hemoglobin less than 7 -Trend CBC Hypertension -Resume home amlodipine -Initiate hydralazine 50mg TID per cardiology -Blood pressure monitoring per protocol -IV hydralazine as needed Morbid obesity -Dietary and lifestyle modification counseling when appropriate DVT/GI prophylaxis: SCDs to bilateral lower extremities while in bed, heparin subcu, PPI Disposition: ICU Lines: PIV, foreman catheter History Interval history: This is a 69-year-old female with OHS, DM, CKD stage IV, morbid obesity CHF, GERD, HTN, chronic respiratory failure on 3 L of home oxygen via nasal cannula who presented to the emergency department on 08/25 after being found down unresponsive at 0950 hours by family and upon EMS arrival she was unresponsive and asystolic arrest. Patient was treated with ACLS protocol with eventual ROSC after at least 15 minutes of ACLS and patient was transported to [facility] In the emergency department patient was found to have acute hypoxic respiratory failure and subsequently intubated on vasopressor support, she underwent a CXR which showed bilateral pneumonia and exam is consistent with SIRS. [facility] and cardiology were consulted and patient was admitted to the hospital service with acute hypoxic respiratory failure, anoxic encephalopathy, s/p cardiac arrest, multifocal pneumonia, FLORIDALMA on CKD. 08/26/20 patient is seen and examined. Patient is on vent. WBC 17.9 and hemoglobin 8.3 hematocrit 25.6. Patient may have 1 episode of questionable seizure. Patient BUN is 56 creatinine 3.4. Will consult nephrology. We also start the patient on Rocephin 2 g IV daily and Zithromax. Aspirin 81 mg p.o. daily and Lipitor. Patient is having echocardiogram. Cardiology and critical care will see the patient as consult tension. Continue current management. We have started on NG tube feeding and consult nutrition for evaluation. Recheck CBC BMP in the morning. Case discussed with daughter Leena [phone] 08/27: Patient remains on full ventilatory support, considering concern for seizure yesterday under the circumstance of out of hospital cardiac arrest, and concern for anoxic encephalopathy, will proceed with Neurology consultation. 08/28: At the time my examination patient sedation of propofol 30 and fentanyl 1 was being held and she was on CMV tidal and 450, rate of 18, PEEP of 6 and FiO2 of 35%. Neurology was consulted. I updated the patient's daughter Leena Payton at bedside and told her of the pending tests the neurologist has ordered. Hospitalist Physical - Constitutional Vitals: Temp Pulse Resp BP Pulse Ox 97.8 F 66 18 147/61 99 08/28/20 16:00 08/28/20 17:30 08/28/20 17:30 08/28/20 17:30 08/28/20 17:30 General appearance: Present: obese - EENT Eyes: Absent: PERRL, EOM intact ENT: clear oral mucosa - Neck Neck: Absent: masses or JVD, cervical LAD - Respiratory Respiratory effort: normal Respiratory: bilateral: diminished - Cardiovascular Rhythm: regular Heart Sounds: Present: S1 & S2. Absent: systolic murmur, diastolic murmur - Extremities Extremities: no ischemia, pulses intact, pulses symmetrical, No edema, normal temperature, normal color Peripheral Pulses: within normal limits - Abdominal General gastrointestinal: soft, non-tender, non-distended, normal bowel sounds - Integumentary Integumentary: Present: warm, dry - Psychiatric Psychiatric: other (not interactive) - Neurologic Neurologic: other (pupils not reactive to light, no gag, hypoactive cough reflex) - Allied Health Allied health notes reviewed: nursing, RT, social work HEART Score - HEART Score Troponin: Troponin T 0.057 ng/mL (0.00-0.029) H 08/25/20 11:23 Results - Labs CBC & Chem 7: 08/28/20 04:19 08/28/20 04:19 Labs: Laboratory Last Values WBC 10.6 K/mm3 (4.5-11.0) 08/28/20 04:19 RBC 2.80 M/mm3 (3.65-5.03) L 08/28/20 04:19 Hgb 7.8 gm/dl (10.1-14.3) L 08/28/20 04:19 Hct 23.6 % (30.3-42.9) L 08/28/20 04:19 MCV 84 fl (79-97) 08/28/20 04:19 MCH 28 pg (28-32) 08/28/20 04:19 MCHC 33 % (30-34) 08/28/20 04:19 RDW 15.8 % (13.2-15.2) H 08/28/20 04:19 Plt Count 188 K/mm3 (140-440) 08/28/20 04:19 Lymph % (Auto) 5.9 % (13.4-35.0) L 08/27/20 07:24 Clinch % (Auto) 4.6 % (0.0-7.3) 08/27/20 07:24 Eos % (Auto) 2.2 % (0.0-4.3) 08/27/20 07:24 Baso % (Auto) 0.4 % (0.0-1.8) 08/27/20 07:24 Lymph # (Auto) 0.8 K/mm3 (1.2-5.4) L 08/27/20 07:24 Clinch # (Auto) 0.6 K/mm3 (0.0-0.8) 08/27/20 07:24 Eos # (Auto) 0.3 K/mm3 (0.0-0.4) 08/27/20 07:24 Baso # (Auto) 0.0 K/mm3 (0.0-0.1) 08/27/20 07:24 Add Manual Diff Complete 08/26/20 05:04 Total Counted 100 08/26/20 05:04 Seg Neutrophils % 86.9 % (40.0-70.0) H 08/27/20 07:24 Seg Neuts % (Manual) 96.0 % (40.0-70.0) H 08/26/20 05:04 Band Neutrophils % 2.0 % 08/25/20 11:23 Lymphocytes % (Manual) 1.0 % (13.4-35.0) L 08/26/20 05:04 Monocytes % (Manual) 3.0 % (0.0-7.3) 08/26/20 05:04 Eosinophils % (Manual) 3.0 % (0.0-4.3) 08/25/20 11:23 Metamyelocytes % 1.0 % 08/25/20 11:23 Nucleated RBC % Not Reportable 08/26/20 05:04 Seg Neutrophils # 11.0 K/mm3 (1.8-7.7) H 08/27/20 07:24 Seg Neutrophils # Man 17.2 K/mm3 (1.8-7.7) H 08/26/20 05:04 Band Neutrophils # 0.0 K/mm3 08/26/20 05:04 Lymphocytes # (Manual) 0.2 K/mm3 (1.2-5.4) L 08/26/20 05:04 Abs React Lymphs (Man) 0.0 K/mm3 08/26/20 05:04 Monocytes # (Manual) 0.5 K/mm3 (0.0-0.8) 08/26/20 05:04 Eosinophils # (Manual) 0.0 K/mm3 (0.0-0.4) 08/26/20 05:04 Basophils # (Manual) 0.0 K/mm3 (0.0-0.1) 08/26/20 05:04 Metamyelocytes # 0.0 K/mm3 08/26/20 05:04 Myelocytes # 0.0 K/mm3 08/26/20 05:04 Promyelocytes # 0.0 K/mm3 08/26/20 05:04 Blast Cells # 0.0 K/mm3 08/26/20 05:04 WBC Morphology Not Reportable 08/26/20 05:04 Hypersegmented Neuts Not Reportable 08/26/20 05:04 Hyposegmented Neuts Not Reportable 08/26/20 05:04 Hypogranular Neuts Not Reportable 08/26/20 05:04 Smudge Cells Not Reportable 08/26/20 05:04 Toxic Granulation Not Reportable 08/26/20 05:04 Toxic Vacuolation Not Reportable 08/26/20 05:04 Dohle Bodies Not Reportable 08/26/20 05:04 Pelger-Huet Anomaly Not Reportable 08/26/20 05:04 Jannette Rods Not Reportable 08/26/20 05:04 Platelet Estimate Consistent w auto 08/26/20 05:04 Clumped Platelets Not Reportable 08/26/20 05:04 Plt Clumps, EDTA Not Reportable 08/26/20 05:04 Large Platelets Not Reportable 08/26/20 05:04 Giant Platelets Not Reportable 08/26/20 05:04 Platelet Satelliting Not Reportable 08/26/20 05:04 Plt Morphology Comment Not Reportable 08/26/20 05:04 RBC Morphology Not Reportable 08/26/20 05:04 Dimorphic RBCs Not Reportable 08/26/20 05:04 Polychromasia Not Reportable 08/26/20 05:04 Hypochromasia Not Reportable 08/26/20 05:04 Poikilocytosis Not Reportable 08/26/20 05:04 Anisocytosis 1+ 08/26/20 05:04 Microcytosis Not Reportable 08/26/20 05:04 Macrocytosis Not Reportable 08/26/20 05:04 Spherocytes Not Reportable 08/26/20 05:04 Pappenheimer Bodies Not Reportable 08/26/20 05:04 Sickle Cells Not Reportable 08/26/20 05:04 Target Cells Not Reportable 08/26/20 05:04 Tear Drop Cells Not Reportable 08/26/20 05:04 Ovalocytes Not Reportable 08/26/20 05:04 Helmet Cells Not Reportable 08/26/20 05:04 [place] Bodies Not Reportable 08/26/20 05:04 [place] Rings Not Reportable 08/26/20 05:04 [place] Cells Not Reportable 08/26/20 05:04 Bite Cells Not Reportable 08/26/20 05:04 Crenated Cell Not Reportable 08/26/20 05:04 Elliptocytes Not Reportable 08/26/20 05:04 Acanthocytes (Spur) Not Reportable 08/26/20 05:04 Rouleaux Not Reportable 08/26/20 05:04 Hemoglobin C Crystals Not Reportable 08/26/20 05:04 Schistocytes Not Reportable 08/26/20 05:04 Malaria parasites Not Reportable 08/26/20 05:04 Shabbir Bodies Not Reportable 08/26/20 05:04 Hem Pathologist Commnt No 08/26/20 05:04 D-Dimer > 65534 ng/mlDDU (0-234) H 08/25/20 11:23 ABG pH 7.329 pH Units (7.350-7.450) L 08/28/20 03:50 POC ABG pCO2 33.7 mmHg (32.0-48.0) 08/27/20 04:10 ABG pCO2 52.4 mm Hg 08/28/20 03:50 POC ABG pO2 74.9 mmHg (83-108) L 08/27/20 04:10 ABG pO2 76.7 mm Hg (80.0-90.0) L 08/28/20 03:50 POC ABG HCO3 23.1 08/27/20 04:10 ABG HCO3 27.0 mmol/L (20.0-26.0) H 08/28/20 03:50 ABG O2 Saturation 95.9 % (95.0-99.0) 08/28/20 03:50 ABG O2 Content 10.1 (0.0-44) 08/28/20 03:50 POC ABG Base Excess -0.6 08/27/20 04:10 ABG Base Excess 0.8 mmol/L (-2.0-3.0) 08/28/20 03:50 ABG Hemoglobin 7.5 gm/dl (12.0-16.0) L 08/28/20 03:50 ABG Oxyhemoglobin 94.0 (94-98) 08/27/20 04:10 ABG Carboxyhemoglobin 1.8 % (0.0-5.0) 08/28/20 03:50 ABG Methemoglobin 0.6 % (0.0-1.5) 08/28/20 03:50 ABG Sodium 136.3 mmol/L (136.0-145.0) 08/27/20 04:10 ABG Potassium 3.8 mmol/L (3.40-4.50) 08/27/20 04:10 ABG Chloride 103.0 mmol/L (98-107) 08/27/20 04:10 ABG Glucose 117 mg/dL (65-95) H 08/27/20 04:10 Oxyhemoglobin 93.6 % (95.0-99.0) L 08/28/20 03:50 Carboxyhemoglobin 0.8 (0.5-1.5) 08/27/20 04:10 FiO2 35 % 08/28/20 03:50 FiO2 % 40.0 08/27/20 04:10 Sodium 135 mmol/L (137-145) L 08/28/20 04:19 Potassium 4.1 mmol/L (3.6-5.0) 08/28/20 04:19 Chloride 98.3 mmol/L (98-107) 08/28/20 04:19 Carbon Dioxide 28 mmol/L (22-30) 08/28/20 04:19 Anion Gap 13 mmol/L 08/28/20 04:19 BUN 64 mg/dL (7-17) H 08/28/20 04:19 Creatinine 3.8 mg/dL (0.6-1.2) H 08/28/20 04:19 Estimated GFR 12 ml/min 08/28/20 04:19 BUN/Creatinine Ratio 17 % 08/28/20 04:19 Glucose 143 mg/dL (65-100) H 08/28/20 04:19 POC Glucose 216 mg/dL (70-105) H 08/28/20 17:18 Lactic Acid 1.80 mmol/L (0.7-2.0) 08/25/20 12:45 Calcium 8.0 mg/dL (8.4-10.2) L 08/28/20 04:19 Total Bilirubin < 0.20 mg/dL (0.1-1.2) 08/28/20 04:19 AST 37 units/L (5-40) 08/28/20 04:19 ALT 27 units/L (7-56) 08/28/20 04:19 Alkaline Phosphatase 84 units/L (35-129) 08/28/20 04:19 Troponin T 0.057 ng/mL (0.00-0.029) H 08/25/20 11:23 C-Reactive Protein 7.80 mg/dL (0.00-1.30) H 08/26/20 18:50 Total Protein 4.8 g/dL (6.3-8.2) L 08/28/20 04:19 Albumin 2.4 g/dL (3.9-5) L 08/28/20 04:19 Albumin/Globulin Ratio 1.0 % 08/28/20 04:19 Triglycerides 89 mg/dL (2-149) 08/25/20 11:23 Cholesterol 158 mg/dL (50-199) 08/25/20 11:23 LDL Cholesterol Direct 101 mg/dL (50-130) 08/25/20 11:23 HDL Cholesterol 50 mg/dL (40-59) 08/25/20 11:23 Cholesterol/HDL Ratio 3.16 % 08/25/20 11:23 Procalcitonin 0.41 ng/mL (<0.15) 08/26/20 18:50 Arterial Blood Glucose 117 mg/dL (65-95) H 08/27/20 04:10 Arterial Blood Ionized Calcium 4.4 mg/dL (4.6-5.3) L 08/27/20 04:10 Urine Color Yellow (Yellow) 08/25/20 11:17 Urine Turbidity Cloudy (Clear) 08/25/20 11:17 Urine pH 7.0 (5.0-7.0) 08/25/20 11:17 Ur Specific [place] 1.012 (1.003-1.030) 08/25/20 11:17 Urine Protein >500 mg/dL (Negative) 08/25/20 11:17 Urine Glucose (UA) >=500 mg/dL (Negative) 08/25/20 11:17 Urine Ketones Neg mg/dL (Negative) 08/25/20 11:17 Urine Blood Sm (Negative) 08/25/20 11:17 Urine Nitrite Neg (Negative) 08/25/20 11:17 Urine Bilirubin Neg (Negative) 08/25/20 11:17 Urine Urobilinogen < 2.0 mg/dL (<2.0) 08/25/20 11:17 Ur Leukocyte Esterase Neg (Negative) 08/25/20 11:17 Urine WBC (Auto) 31.0 /HPF (0.0-6.0) H 08/25/20 11:17 Urine RBC (Auto) 28.0 /HPF (0.0-6.0) 08/25/20 11:17 U Epithel Cells (Auto) 5.0 /HPF (0-13.0) 08/25/20 11:17 Urine Bacteria (Auto) 1+ /HPF (Negative) 08/25/20 11:17 Urine WBC Clumps Few /HPF 08/25/20 11:17 Ur Renal Epithelial Cell 4 /LPF 08/25/20 11:17 Hyaline Casts 28 /LPF 08/25/20 11:17 Urine Creatinine 67.4 mg/dL (0.1-20.0) H 08/26/20 17:00 Urine Sodium 12 mmol/L 08/26/20 17:00 Coronavirus (PCR) Negative (Negative) 08/26/20 Unknown Microbiology: Microbiology 08/25/20 11:23 Peripheral/Venous Blood Culture - Preliminary NO GROWTH AFTER 72 HOURS 08/25/20 11:23 Peripheral/Venous Blood Culture - Preliminary NO GROWTH AFTER 72 HOURS Foreman/IV: Voiding Method Indwelling Catheter Active Medications - Current Medications Current Medications: Generic Name Dose Route Start Last Admin Trade Name Freq PRN Reason Stop Dose Admin Albuterol 2.5 mg 08/25/20 14:55 Albuterol 2.5 Mg/3 Ml Nebu IH Q3HRT PRN Shortness Of Breath Amlodipine Besylate 5 mg 08/28/20 10:00 08/28/20 09:11 Amlodipine 5 Mg Tab PO 5 mg QDAY TERA Administration Lipase/Protease/Amylase 1 each 08/26/20 12:15 Lipase 10,500/Protease 25,000/Amylase 43,750 (Units) Dr Gu FEEDTUBE PRN PRN For Clogged Feeding Tube Aspirin 81 mg 08/27/20 10:00 08/28/20 09:52 Aspirin 81 Mg Tab Chew PO 81 mg QDAY TERA Administration Atorvastatin Calcium 40 mg 08/26/20 22:00 08/27/20 21:17 Atorvastatin 40 Mg Tab PO 40 mg QHS TERA Administration Azithromycin 250 mg 08/28/20 10:00 08/28/20 09:12 Azithromycin 250 Mg Tab PO 08/31/20 10:01 250 mg QDAY TERA Administration Protocol Dextrose 50 ml 08/26/20 19:18 Dextrose 50% In Water (25gm) 50 Ml Syringe IV Q30MIN PRN Hypoglycemia Protocol Famotidine 20 mg 08/28/20 10:00 08/28/20 09:13 Famotidine 20 Mg Tab PO 20 mg DAILY TERA Administration Fentanyl 50 mcg 08/26/20 17:11 Fentanyl 100 Mcg/2 Ml Inj IV Q10MIN PRN ANALGESIA Heparin Sodium (Porcine) 5,000 unit 08/26/20 22:00 08/28/20 09:13 Heparin 5,000 Unit/1 Ml Vial SUB-Q 5,000 unit Q12HR TERA Administration Hydralazine HCl 10 mg 08/26/20 01:20 08/28/20 12:13 Hydralazine 20 Mg/1 Ml Inj IV 10 mg Q4HR PRN Administration Blood Pressure Hydralazine HCl 50 mg 08/28/20 14:00 08/28/20 14:05 Hydralazine 25 Mg Tab PO 50 mg Q8HR TERA Administration Hydrophilic Ointment 1 applic 08/25/20 11:07 08/25/20 11:57 Lip Therapy Vaseline TP 1 applic Q2HR PRN Administration Dry Lips Levetiracetam 500 mg/ Dextrose 105 mls @ 400 mls/hr 08/26/20 10:00 08/28/20 09:20 IV 400 mls/hr Q12HR TERA Administration Propofol 1,000 mg in 100 mls @ 2.838 mls/hr 08/25/20 20:48 08/28/20 07:45 Diprivan 10 Mg/Ml IV Infused TITR TERA Titration Protocol 5 MCG/KG/MIN Ceftriaxone Sodium 2 gm in 100 mls @ 200 mls/hr 08/26/20 11:00 08/28/20 10:39 Rocephin/Ns 2 Gm/100 Ml IV 08/30/20 11:29 200 mls/hr Q24H TERA Administration Protocol Fentanyl Citrate 2,000 mcg in 100 mls @ 4.605 mls/hr 08/26/20 18:00 08/28/20 08:54 Fentanyl Drip Premix IV 0 mcg/kg/hr TITR TERA 0 mls/hr Titration Protocol 1 MCG/KG/HR Insulin Human Lispro 0 unit 08/27/20 12:00 08/28/20 17:26 Insulin Lispro 100 Unit/Ml SUB-Q 3 unit Q6HR TERA Administration Protocol Metoprolol Tartrate 2.5 mg 08/27/20 13:30 08/28/20 13:05 Metoprolol Tartrate 5 Mg/5 Ml Inj IV 2.5 mg Q6H TERA Administration Multi-Ingred Cream/Lotion/Oil/Oint 1 applic 08/25/20 11:07 Mineral Oil/Petrolatum, White Ophth Oint 3.5 Gm OU Q4HR PRN Dry Eye(s) Senna/Docusate Sodium 1 tab 08/25/20 22:00 08/28/20 09:17 Sennosides/Docusate Sodium 8.6/50 Mg Tab FEEDTUBE 1 tab BID TERA Administration Simple Syrup 15 ml 08/26/20 12:15 Simple Syrup 15 Ml FEEDTUBE PRN PRN Hypoglycemia Simple Syrup 30 ml 08/26/20 12:15 Simple Syrup 15 Ml FEEDTUBE PRN PRN Hypoglycemia Sodium Bicarbonate 325 mg 08/26/20 12:15 Sodium Bicarbonate 325 Mg Tab FEEDTUBE PRN PRN For Clogged Feeding Tube Sodium Chloride 10 ml 08/25/20 22:00 08/28/20 09:18 Sodium Chloride 0.9% 10 Ml Flush Syringe IV 10 ml BID TERA Administration Sodium Chloride 10 ml 08/25/20 14:55 08/26/20 01:50 Sodium Chloride 0.9% 10 Ml Flush Syringe IV 10 ml PRN PRN Administration LINE FLUSH Nutrition/Malnutrition Assess - Dietary Evaluation Nutrition/Malnutrition Findings: Nutrition Notes Start: 08/26/20 10:21 Freq: Status: Active Protocol: Document 08/28/20 11:02 (Rec: 08/28/20 11:06 [id number]) Nutrition Notes Initial or Follow up Reassessment Current Diagnosis Acute Kidney Injury,CKD(stage I-IV),Diabetes,Hypertension, Heart Failure,Respiratory Failure Other Pertinent Diagnosis cardiac arrest, acute encephalopathy, pneu, anoxIC brain injury, GERD Current Diet Nepro 1.8 at 30 ml/hr Labs/Tests Na 135 BUN 64 Cr 3.8 Pertinent Medications Propofol at 17.028 ml/hr ( 449kcal) Lasix Height 5 ft 5 in Weight 92.1 kg [place] Body Weight (kg) 56.81 BMI 33.7 Weight Status Obese Subjective/Other Information FU for TF tolerance and propofol. Pt still receiving substantial amount of calories from propofol. Per RN, pt tolerating TF. Percent of energy/protein needs met: 100%/58% Burn Absent Trauma Absent Current % PO Negligible Minimum of two criteria No physical signs of malnutrition #1 Nutrition Diagnosis Inadequate oral intake Diagnosis Progress(for reassessment Continues documentation) Is patient on ventilator? Yes Is Patient Ambulatory and/or Out of Bed No REE-([facility]-confined to bed) 1700.436 Kcal/Kg value to use for calculation 14 Approximate Energy Requirements Using 1289 kcal/Kg Calculation Used for Recommendations Kcal/kg Additional Notes protein needs: >114g (>2 g/ kgIBW) fluid needs 1500 - 1900 ml or per MD order Nutrition Intervention Change Diet Order: Continue TF Nutrition Support: Recommend Nepro at 30 ml/hr with a free water flush of 130 ml q4h Kcal 1,296 Protein (gm) 58 Fluid (mL) 523 Goal #1 Meet at least 75% of kcal and protein needs as best as possible Anticipated Discharge Needs: unable to determine at this time Follow-Up By: 08/30/20 Additional Comments FU for TF tolernace and propofol rate <KOFI DÍAZ - Last Filed: 09/07/20 07:19> Assessment and Plan Assessment and plan: I saw and evaluated the patient. I agree with the findings and the plan of care as documented in the Nurse Practitioner's~note, with the following corrections and additions. Hospitalist Physical - Constitutional Vitals: Temp Pulse Resp BP Pulse Ox 98.8 F 65 13 89/41 97 09/07/20 03:35 07/08/21 06:26 09/07/20 06:00 09/07/20 06:26 09/07/20 06:00 HEART Score - HEART Score Troponin: Troponin T 0.057 ng/mL (0.00-0.029) H 08/25/20 11:23 Results - Labs CBC & Chem 7: 09/06/20 Unknown 09/06/20 Unknown Labs: Laboratory Last Values WBC 17.3 K/mm3 (4.5-11.0) H 09/06/20 Unknown RBC 3.25 M/mm3 (3.65-5.03) L 09/06/20 Unknown Hgb 8.7 gm/dl (10.1-14.3) L 09/06/20 Unknown Hct 26.2 % (30.3-42.9) L 09/06/20 Unknown MCV 81 fl (79-97) 09/06/20 Unknown MCH 27 pg (28-32) L 09/06/20 Unknown MCHC 33 % (30-34) 09/06/20 Unknown RDW 15.6 % (13.2-15.2) H 09/06/20 Unknown Plt Count 388 K/mm3 (140-440) 09/06/20 Unknown Lymph % (Auto) 4.4 % (13.4-35.0) L 09/06/20 Unknown Clinch % (Auto) 4.1 % (0.0-7.3) 09/06/20 Unknown Eos % (Auto) 1.9 % (0.0-4.3) 09/06/20 Unknown Baso % (Auto) 0.1 % (0.0-1.8) 09/06/20 Unknown Lymph # (Auto) 0.8 K/mm3 (1.2-5.4) L 09/06/20 Unknown Clinch # (Auto) 0.7 K/mm3 (0.0-0.8) 09/06/20 Unknown Eos # (Auto) 0.3 K/mm3 (0.0-0.4) 09/06/20 Unknown Baso # (Auto) 0.0 K/mm3 (0.0-0.1) 09/06/20 Unknown Add Manual Diff Complete 08/26/20 05:04 Total Counted 100 08/26/20 05:04 Seg Neutrophils % 89.5 % (40.0-70.0) H 09/06/20 Unknown Seg Neuts % (Manual) 96.0 % (40.0-70.0) H 08/26/20 05:04 Band Neutrophils % 2.0 % 08/25/20 11:23 Lymphocytes % (Manual) 1.0 % (13.4-35.0) L 08/26/20 05:04 Monocytes % (Manual) 3.0 % (0.0-7.3) 08/26/20 05:04 Eosinophils % (Manual) 3.0 % (0.0-4.3) 08/25/20 11:23 Metamyelocytes % 1.0 % 08/25/20 11:23 Nucleated RBC % Not Reportable 08/26/20 05:04 Seg Neutrophils # 15.5 K/mm3 (1.8-7.7) H 09/06/20 Unknown Seg Neutrophils # Man 17.2 K/mm3 (1.8-7.7) H 08/26/20 05:04 Band Neutrophils # 0.0 K/mm3 08/26/20 05:04 Lymphocytes # (Manual) 0.2 K/mm3 (1.2-5.4) L 08/26/20 05:04 Abs React Lymphs (Man) 0.0 K/mm3 08/26/20 05:04 Monocytes # (Manual) 0.5 K/mm3 (0.0-0.8) 08/26/20 05:04 Eosinophils # (Manual) 0.0 K/mm3 (0.0-0.4) 08/26/20 05:04 Basophils # (Manual) 0.0 K/mm3 (0.0-0.1) 08/26/20 05:04 Metamyelocytes # 0.0 K/mm3 08/26/20 05:04 Myelocytes # 0.0 K/mm3 08/26/20 05:04 Promyelocytes # 0.0 K/mm3 08/26/20 05:04 Blast Cells # 0.0 K/mm3 08/26/20 05:04 WBC Morphology Not Reportable 08/26/20 05:04 Hypersegmented Neuts Not Reportable 08/26/20 05:04 Hyposegmented Neuts Not Reportable 08/26/20 05:04 Hypogranular Neuts Not Reportable 08/26/20 05:04 Smudge Cells Not Reportable 08/26/20 05:04 Toxic Granulation Not Reportable 08/26/20 05:04 Toxic Vacuolation Not Reportable 08/26/20 05:04 Dohle Bodies Not Reportable 08/26/20 05:04 Pelger-Huet Anomaly Not Reportable 08/26/20 05:04 Jannette Rods Not Reportable 08/26/20 05:04 Platelet Estimate Consistent w auto 08/26/20 05:04 Clumped Platelets Not Reportable 08/26/20 05:04 Plt Clumps, EDTA Not Reportable 08/26/20 05:04 Large Platelets Not Reportable 08/26/20 05:04 Giant Platelets Not Reportable 08/26/20 05:04 Platelet Satelliting Not Reportable 08/26/20 05:04 Plt Morphology Comment Not Reportable 08/26/20 05:04 RBC Morphology Not Reportable 08/26/20 05:04 Dimorphic RBCs Not Reportable 08/26/20 05:04 Polychromasia Not Reportable 08/26/20 05:04 Hypochromasia Not Reportable 08/26/20 05:04 Poikilocytosis Not Reportable 08/26/20 05:04 Anisocytosis 1+ 08/26/20 05:04 Microcytosis Not Reportable 08/26/20 05:04 Macrocytosis Not Reportable 08/26/20 05:04 Spherocytes Not Reportable 08/26/20 05:04 Pappenheimer Bodies Not Reportable 08/26/20 05:04 Sickle Cells Not Reportable 08/26/20 05:04 Target Cells Not Reportable 08/26/20 05:04 Tear Drop Cells Not Reportable 08/26/20 05:04 Ovalocytes Not Reportable 08/26/20 05:04 Helmet Cells Not Reportable 08/26/20 05:04 [place] Bodies Not Reportable 08/26/20 05:04 [place] Rings Not Reportable 08/26/20 05:04 [place] Cells Not Reportable 08/26/20 05:04 Bite Cells Not Reportable 08/26/20 05:04 Crenated Cell Not Reportable 08/26/20 05:04 Elliptocytes Not Reportable 08/26/20 05:04 Acanthocytes (Spur) Not Reportable 08/26/20 05:04 Rouleaux Not Reportable 08/26/20 05:04 Hemoglobin C Crystals Not Reportable 08/26/20 05:04 Schistocytes Not Reportable 08/26/20 05:04 Malaria parasites Not Reportable 08/26/20 05:04 Shabbir Bodies Not Reportable 08/26/20 05:04 Hem Pathologist Commnt No 08/26/20 05:04 D-Dimer > 98650 ng/mlDDU (0-234) H 08/25/20 11:23 ABG pH 7.462 (7.320-7.450) H 09/01/20 12:51 POC ABG pCO2 39.5 mmHg (32.0-48.0) 09/01/20 12:51 ABG pCO2 36.6 mm Hg 08/31/20 04:10 POC ABG pO2 102.7 mmHg (83-108) 09/01/20 12:51 ABG pO2 99.6 mm Hg (80.0-90.0) H 08/31/20 04:10 POC ABG HCO3 27.6 09/01/20 12:51 ABG HCO3 24.9 mmol/L (20.0-26.0) 08/31/20 04:10 ABG O2 Saturation 98.0 (0-100) 09/01/20 12:51 ABG O2 Content 11.6 (0.0-44) 08/31/20 04:10 POC ABG Base Excess 3.6 09/01/20 12:51 ABG Base Excess 1.0 mmol/L (-2.0-3.0) 08/31/20 04:10 ABG Hemoglobin 9.5 (12.0-17.5) L 09/01/20 12:51 ABG Oxyhemoglobin 97.3 (94-98) 09/01/20 12:51 ABG Carboxyhemoglobin 1.4 % (0.0-5.0) 08/31/20 04:10 ABG Methemoglobin 0.3 (0.0-1.5) 09/01/20 12:51 ABG Sodium 130.4 mmol/L (136.0-145.0) L 09/01/20 12:51 ABG Potassium 3.4 mmol/L (3.40-4.50) 09/01/20 12:51 ABG Chloride 98.0 mmol/L (98-107) 09/01/20 12:51 ABG Glucose 208 mg/dL (65-95) H 09/01/20 12:51 Oxyhemoglobin 95.9 % (95.0-99.0) 08/31/20 04:10 Carboxyhemoglobin 0.4 (0.5-1.5) L 09/01/20 12:51 FiO2 30 % 08/31/20 04:10 FiO2 % 30.0 09/01/20 12:51 Sodium 132 mmol/L (137-145) L 09/06/20 Unknown Potassium 4.1 mmol/L (3.6-5.0) 09/06/20 Unknown Chloride 91.9 mmol/L (98-107) L 09/06/20 Unknown Carbon Dioxide 29 mmol/L (22-30) 09/06/20 Unknown Anion Gap 15 mmol/L 09/06/20 Unknown BUN 104 mg/dL (7-17) H 09/06/20 Unknown Creatinine 3.8 mg/dL (0.6-1.2) H 09/06/20 Unknown Estimated GFR 12 ml/min 09/06/20 Unknown BUN/Creatinine Ratio 27 % 09/06/20 Unknown Glucose 177 mg/dL (65-100) H 09/06/20 Unknown POC Glucose 151 mg/dL (70-105) H 09/07/20 05:36 Lactic Acid 1.80 mmol/L (0.7-2.0) 08/25/20 12:45 Calcium 8.8 mg/dL (8.4-10.2) 09/06/20 Unknown Phosphorus 4.60 mg/dL (2.5-4.5) H 09/01/20 09:41 Magnesium 2.60 mg/dL (1.7-2.3) H 09/06/20 Unknown Total Bilirubin < 0.20 mg/dL (0.1-1.2) 08/28/20 04:19 AST 37 units/L (5-40) 08/28/20 04:19 ALT 27 units/L (7-56) 08/28/20 04:19 Alkaline Phosphatase 84 units/L (35-129) 08/28/20 04:19 Troponin T 0.057 ng/mL (0.00-0.029) H 08/25/20 11:23 C-Reactive Protein 7.80 mg/dL (0.00-1.30) H 08/26/20 18:50 Total Protein 4.8 g/dL (6.3-8.2) L 08/28/20 04:19 Albumin 2.4 g/dL (3.9-5) L 08/28/20 04:19 Albumin/Globulin Ratio 1.0 % 08/28/20 04:19 Triglycerides 111 mg/dL (2-149) 08/29/20 04:32 Cholesterol 158 mg/dL (50-199) 08/25/20 11:23 LDL Cholesterol Direct 101 mg/dL (50-130) 08/25/20 11:23 HDL Cholesterol 50 mg/dL (40-59) 08/25/20 11:23 Cholesterol/HDL Ratio 3.16 % 08/25/20 11:23 Procalcitonin 0.41 ng/mL (<0.15) 08/26/20 18:50 Arterial Blood Glucose 208 mg/dL (65-95) H 09/01/20 12:51 Arterial Blood Ionized Calcium 4.5 mg/dL (4.6-5.3) L 09/01/20 12:51 Urine Color Yellow (Yellow) 08/25/20 11:17 Urine Turbidity Cloudy (Clear) 08/25/20 11:17 Urine pH 7.0 (5.0-7.0) 08/25/20 11:17 Ur Specific [place] 1.012 (1.003-1.030) 08/25/20 11:17 Urine Protein >500 mg/dL (Negative) 08/25/20 11:17 Urine Glucose (UA) >=500 mg/dL (Negative) 08/25/20 11:17 Urine Ketones Neg mg/dL (Negative) 08/25/20 11:17 Urine Blood Sm (Negative) 08/25/20 11:17 Urine Nitrite Neg (Negative) 08/25/20 11:17 Urine Bilirubin Neg (Negative) 08/25/20 11:17 Urine Urobilinogen < 2.0 mg/dL (<2.0) 08/25/20 11:17 Ur Leukocyte Esterase Neg (Negative) 08/25/20 11:17 Urine WBC (Auto) 31.0 /HPF (0.0-6.0) H 08/25/20 11:17 Urine RBC (Auto) 28.0 /HPF (0.0-6.0) 08/25/20 11:17 U Epithel Cells (Auto) 5.0 /HPF (0-13.0) 08/25/20 11:17 Urine Bacteria (Auto) 1+ /HPF (Negative) 08/25/20 11:17 Urine WBC Clumps Few /HPF 08/25/20 11:17 Ur Renal Epithelial Cell 4 /LPF 08/25/20 11:17 Hyaline Casts 28 /LPF 08/25/20 11:17 Urine Creatinine 67.4 mg/dL (0.1-20.0) H 08/26/20 17:00 Urine Sodium 12 mmol/L 08/26/20 17:00 Coronavirus (PCR) Negative (Negative) 08/26/20 Unknown Foreman/IV: Voiding Method Indwelling Catheter Active Medications - Current Medications Current Medications: Generic Name Dose Route Start Last Admin Trade Name Freq PRN Reason Stop Dose Admin Albuterol 2.5 mg 08/25/20 14:55 Albuterol 2.5 Mg/3 Ml Nebu IH Q3HRT PRN Shortness Of Breath Lipase/Protease/Amylase 1 each 08/26/20 12:15 Lipase 10,500/Protease 25,000/Amylase 43,750 (Units) Dr Gu FEEDTUBE PRN PRN For Clogged Feeding Tube Aspirin 81 mg 08/27/20 10:00 09/06/20 09:54 Aspirin 81 Mg Tab Chew PO 81 mg QDAY TERA Administration Atorvastatin Calcium 40 mg 08/26/20 22:00 09/06/20 22:06 Atorvastatin 40 Mg Tab PO 40 mg QHS TERA Administration Atropine Sulfate 0.5 mg 09/05/20 13:09 09/05/20 13:44 Atropine 0.1% (1 Mg/10 Ml) Cardiac Syringe IV 0.5 mg Q5MIN PRN Administration Bradycardia Dextrose 50 ml 08/26/20 19:18 Dextrose 50% In Water (25gm) 50 Ml Syringe IV Q30MIN PRN Hypoglycemia Protocol Famotidine 20 mg 08/28/20 10:00 09/06/20 09:54 Famotidine 20 Mg Tab PO 20 mg DAILY TERA Administration Heparin Sodium (Porcine) 5,000 unit 08/26/20 22:00 09/06/20 22:06 Heparin 5,000 Unit/1 Ml Vial SUB-Q 5,000 unit Q12HR TERA Administration Hydralazine HCl 10 mg 08/26/20 01:20 09/04/20 11:06 Hydralazine 20 Mg/1 Ml Inj IV 10 mg Q4HR PRN Administration Blood Pressure Hydralazine HCl 50 mg 09/01/20 14:00 09/07/20 06:26 Hydralazine 25 Mg Tab PO Not Given Q8HR TERA Hydrophilic Ointment 1 applic 08/25/20 11:07 08/25/20 11:57 Lip Therapy Vaseline TP 1 applic Q2HR PRN Administration Dry Lips Lacosamide 200 mg/ Sodium 120 mls @ 100 mls/hr 09/04/20 11:00 09/06/20 22:05 Chloride IV 100 mls/hr Q12H TERA Administration Levetiracetam 500 mg/ Dextrose 105 mls @ 400 mls/hr 09/04/20 11:00 09/06/20 22:06 IV 400 mls/hr Q12HR TERA Administration Valproate Sodium 750 mg/ 107.5 mls @ 100 mls/hr 09/05/20 14:00 09/07/20 06:25 Sodium Chloride IV 100 mls/hr Q8HR TERA Administration Dopamine HCl/Dextrose 800 mg in 250 mls @ 3.563 mls/hr 09/05/20 15:00 09/07/20 06:25 Intropin Drip 800 Mg/D5w 250 Ml IV 6 mcg/kg/min TITR TERA 10.688 mls/hr Administration Protocol 2 MCG/KG/MIN Midazolam HCl 100 mg/ Sodium 100 mls @ 1 mls/hr 09/06/20 14:00 09/06/20 15:46 Chloride IV 1 mg/hr TITR TERA 1 mls/hr Administration Protocol 1 MG/HR Insulin Glargine 25 units 09/01/20 22:00 09/06/20 22:06 Insulin Glargine 100 Units/Ml SUB-Q 25 units QHS TERA Administration Insulin Human Lispro 0 unit 08/27/20 12:00 09/07/20 06:27 Insulin Lispro 100 Unit/Ml SUB-Q 2 unit Q6HR TERA Administration Protocol Lorazepam 2 mg 09/03/20 15:12 09/05/20 13:41 Lorazepam 2 Mg/Ml Vial IV 2 mg Q1H PRN Administration Seizures Multi-Ingred Cream/Lotion/Oil/Oint 1 applic 08/25/20 11:07 Mineral Oil/Petrolatum, White Ophth Oint 3.5 Gm OU Q4HR PRN Dry Eye(s) Senna/Docusate Sodium 1 tab 08/25/20 22:00 09/06/20 22:06 Sennosides/Docusate Sodium 8.6/50 Mg Tab FEEDTUBE 1 tab BID TERA Administration Simple Syrup 15 ml 08/26/20 12:15 Simple Syrup 15 Ml FEEDTUBE PRN PRN Hypoglycemia Simple Syrup 30 ml 08/26/20 12:15 Simple Syrup 15 Ml FEEDTUBE PRN PRN Hypoglycemia Sodium Bicarbonate 325 mg 08/26/20 12:15 Sodium Bicarbonate 325 Mg Tab FEEDTUBE PRN PRN For Clogged Feeding Tube Sodium Chloride 10 ml 08/25/20 22:00 09/06/20 22:12 Sodium Chloride 0.9% 10 Ml Flush Syringe IV 10 ml BID TERA Administration Sodium Chloride 10 ml 08/25/20 14:55 08/29/20 04:05 Sodium Chloride 0.9% 10 Ml Flush Syringe IV 10 ml PRN PRN Administration LINE FLUSH Tamsulosin HCl 0.8 mg 09/06/20 10:00 09/06/20 09:54 Tamsulosin 0.4 Mg Cap PO 0.8 mg QDAY TERA Administration Nutrition/Malnutrition Assess - Dietary Evaluation Nutrition/Malnutrition Findings: Nutrition Notes Start: 08/26/20 10:21 Freq: Status: Active Protocol: Document 09/06/20 10:14 (Rec: 09/06/20 10:15 [id number]) Nutrition Notes Initial or Follow up Brief Note Current Diagnosis Acute Kidney Injury,CKD(stage I-IV),Diabetes,Hypertension, Heart Failure,Respiratory Failure Other Pertinent Diagnosis cardiac arrest, acute encephalopathy, pneu, anoxIC brain injury, GERD Current Diet Nepro 1.8 at 30 ml/hr Subjective/Other Information FU off for possible trach and PEG this AM. Pt previously tolerating. Pt had BM on 09/03. Nutrition Intervention Follow-Up By: 09/08/20 Additional Comments FU for TF restart and tolerance
[2020-08-28] MEDS ORDERED: INSULIN GLARGINE 100 UNITS/ML SUB-Q SCH (22:00)
[2020-08-29] MEDS: METOPROLOL TARTRATE 5 MG/5 ML INJ IV SCH ×2 (01:55→09:10)
--- NOTE | 2020-08-29 03:30 | XRay Report ---
CHEST 1 VIEW INDICATION / CLINICAL INFORMATION: follow up respiratory failure. FINDINGS: SUPPORT DEVICES: No significant change in position. HEART / MEDIASTINUM: The cardiomediastinal silhouette has not significantly changed in the interim. LUNGS / PLEURA: Bilateral pleural parenchymal opacities have minimally improved from yesterday's exam . Signer Name: Luis Taylor MD Signed: 08/29/2020 3:25 AM Workstation Name: [id number]
[2020-08-29] MEDS: hydrALAZINE 20 MG/1 ML INJ IV PRN (04:03)
[2020-08-29 05:07] LABS: Mean Corpuscular HGB Conc 33 % (30-34); Mean Corpuscular Volume 83 fl (79-97); Platelet Count 192 K/mm3 (140-440); Red Blood Count 3.25 M/mm3 (3.65-5.03); Red Cell Distribution Width 16.1 % (13.2-15.2)
[2020-08-29] MEDS: INSULIN LISPRO 100 UNIT/ML SUB-Q SCH ×3 (05:07→18:06)
[2020-08-29] MEDS: hydrALAZINE 25 MG TAB PO SCH ×3 (05:09→21:33)
[2020-08-29 05:14] LABS: ABG HCO3 25.3 mmol/L (20.0-26.0); ABG Methemoglobin 0.5 % (0.0-1.5); ABG Oxygen Saturation 97.1 % (95.0-99.0); ABG PCO2 38.5 mm Hg; ABG PH 7.435 pH Units (7.350-7.450); ABG PO2 86.1 mm Hg (80.0-90.0)
[2020-08-29 05:26] LABS: Calcium 8.2 mg/dL (8.4-10.2)
[2020-08-29] MEDS: SENNOSIDES/DOCUSATE SODIUM 8.6/50 MG TAB FEEDTUBE SCH ×2 (09:13→21:33)
[2020-08-29] MEDS: ASPIRIN 81 MG TAB CHEW PO SCH (09:13)
[2020-08-29] MEDS: FAMOTIDINE 20 MG TAB PO SCH (09:14)
[2020-08-29] MEDS: AZITHROMYCIN 250 MG TAB PO SCH (09:14)
[2020-08-29] MEDS: amLODIPine 5 MG TAB PO SCH (09:14)
[2020-08-29] MEDS: HEPARIN 5,000 UNIT/1 ML VIAL SUB-Q SCH ×2 (09:16→21:32)
[2020-08-29] MEDS: levETIRAcetam 500 MG in DEXTROSE 5% IN WATER 100 ML IV SCH ×2 (09:18→21:34)
--- NOTE | 2020-08-29 09:23 | Progress Note ---
Assessment and Plan S/p cardiac arrest with ROSC * Prevailing rhythm during arrest is reportedly asystole. Patient is currently off sedation and unresponsive. Anoxic injury is suspected * Neurology is following. MRI brain, EEG is pending. Neurology recommends permissive hypertension x72 hours. Acute respiratory failure and suspected multifocal pneumonia * Currently intubated, management per primary team. Patient has been off sedation for 48 hours. Continues to be unresponsive. Mild cardiomyopathy * Echocardiogram reviewed: LVEF is 40 to 45%. LV is normal size. LV SF is mildly decreased. Mild diastolic dysfunction. Right ventricle is mildly dilated. Moderate pulmonary hypertension RVSP 45 mmHg. * Continue GDMT: Aspirin 81, atorvastatin 40, metoprolol 2.5 mg IV every 6, no NITIN/ARB in setting of FLORIDALMA. Acute kidney injury in setting of chronic renal disease * No NITIN/ARB in setting of FLORIDALMA. Avoid nephrotoxic agents Hypertension * Reduce Hydralazine to 25mg TID per neurology recommendations for permissive HTN x 72 hours. We will plan to optimize hypertensive regimen once okay per neurology. DVT prophylaxis * Heparin SQ Cardiology will follow This patient was seen in conjunction with Dr. Monge who agrees with assessment and plan of care - Patient Problems (1) Cardiac arrest Current Visit: Yes Status: Acute (2) Anoxic encephalopathy Current Visit: Yes Status: Acute (3) Acute respiratory failure Current Visit: Yes Status: Acute (4) Multifocal pneumonia Current Visit: Yes Status: Acute (5) Acute renal failure superimposed on chronic kidney disease Current Visit: Yes Status: Acute (6) Cardiomyopathy Current Visit: Yes Status: Chronic (7) Diabetes Current Visit: Yes Status: Chronic (8) Hypertension Current Visit: Yes Status: Chronic (9) DVT prophylaxis Current Visit: Yes Status: Acute (10) Anemia Current Visit: Yes Status: Chronic Qualifiers: Anemia type: unspecified type Qualified Code(s): D64.9 - Anemia, unspecified Subjective Date of service: 08/29/20 Principal diagnosis: Ac. hypoxemic resp failure; Cardiac arrest; AMS; AE-CHF; Hyperkalemia; FLORIDALMA Interval history: Patient is currently intubated and unresponsive. Anoxic injury is suspected Telemetry reviewed: Sinus rhythm 82. No events Objective Last Vital Signs Temp 97.8 F 08/29/20 12:00 Pulse 77 08/29/20 12:36 Resp 27 H 08/29/20 12:36 BP 129/61 08/29/20 12:36 Pulse Ox 97 06/29/21 12:36 - Physical Examination General: Other (Intubated unresponsive) HEENT: Positive: Normocephaly, Mucus Membranes Moist Neck: Positive: neck supple, trachea midline Cardiac: Positive: Reg Rate and Rhythm, S1/S2 Lungs: Positive: Ventilated Respirations Neuro: Positive: Other (Intubated unresponsive) Abdomen: Positive: Unremarkable Skin: Negative: Rash Musculoskeletal: other (Intubated unresponsive) Extremities: Present: upper extr. pulses, lower extr. pulses. Absent: edema - Labs and Meds Lipids 08/29/20 Range/Units 04:32 Triglycerides 111 (2-149) mg/dL CBC 08/29/20 Range/Units 04:32 WBC 10.8 (4.5-11.0) K/mm3 RBC 3.25 L (3.65-5.03) M/mm3 Hgb 9.0 L (10.1-14.3) gm/dl Hct 27.0 L (30.3-42.9) % Plt Count 192 (140-440) K/mm3 Comprehensive Metabolic Panel 08/29/20 Range/Units 04:32 Sodium 135 L (137-145) mmol/L Potassium 3.9 (3.6-5.0) mmol/L Chloride 96.0 L (98-107) mmol/L Carbon Dioxide 25 (22-30) mmol/L BUN 67 H (7-17) mg/dL Creatinine 3.8 H (0.6-1.2) mg/dL Glucose 200 H (65-100) mg/dL Calcium 8.2 L (8.4-10.2) mg/dL - Imaging and Cardiology EKG: report reviewed, image reviewed Echo: report reviewed (Echocardiogram reviewed: LVEF is 40 to 45%. LV is normal size. LV SF is mildly decreased. Mild diastolic dysfunction. Right ventricle is mildly dilated. Moderate pulmonary hypertension RVSP 45 mmHg. ) - Telemetry EKG Rhythm: Sinus Rhythm - EKG Sinus rhythms and dysrhythmias: sinus bradycardia - Allied health notes Allied health notes reviewed: nursing
--- NOTE | 2020-08-29 10:05 | Progress Note ---
Assessment and Plan 1. Acute kidney injury: Vasomotor FLORIDALMA superimposed on CKD stage 4 in the setting Cardiac arrest. Low FeNa. CT abdomen negative for hydro. Monitor renal function. Creatinine leveled off. Non-oliguric. Renal prognosis is guarded. Avoid nephrotoxic agents. Meds dosage based on GFR. Monitor for [employer] needs. 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 2. FEN: Hyperkalemia, improved. Metabolic acidosis, improved. Monitor lytes. 3. Acute respiratory failure with hypoxia: 2/2 b/p pneumonia. Covid test negative. Intubated, on vent. Abx for CAP. Followed by Pulmonary. 4. S/p OOH Cardiac arrest: Monitor. Followed by Cards. 5. Diabetes mellitus type 2: Follow blood glucose. 6. Hypertension: Monitor BP. 7. Anemia, POA: Monitor. 8. Anoxic encephalopathy. Subjective: Patient was seen and examined at the bedside. Examination: General appearance: well-developed, well-nourished, appears stated age, intubated, on vent HEENT: ATNC, pupils not reacting to light Neck: supple Respiratory: coarse breath sounds Cardiology: regular, S1S2, no murmur Gastrointestinal: soft, bowel sounds heard, not tender Integumentary: no rash, warm and dry Neurologic: not responding Ext: trace dependent edema : Christina catheter Subjective Date of service: 08/29/20 Principal diagnosis: Ac. hypoxemic resp failure; Cardiac arrest; AMS; AE-CHF; Hyperkalemia; FLORIDALMA Objective - Vital Signs Vital signs: Vital Signs - 12hr 08/28/20 08/28/20 08/28/20 22:10 22:20 22:30 Temperature Pulse Rate 67 67 66 Respiratory 18 18 18 Rate Blood Pressure 148/58 138/59 138/59 O2 Sat by Pulse 97 97 97 Oximetry 08/28/20 08/28/20 08/28/20 22:40 22:50 22:59 Temperature Pulse Rate 66 66 66 Respiratory 18 18 Rate Blood Pressure 130/54 137/55 O2 Sat by Pulse 98 98 Oximetry 08/28/20 08/28/20 08/28/20 23:00 23:10 23:15 Temperature Pulse Rate 65 64 66 Respiratory 18 18 Rate Blood Pressure 137/55 134/55 O2 Sat by Pulse 98 98 Oximetry 08/28/20 08/28/20 08/28/20 23:20 23:22 23:30 Temperature Pulse Rate 70 70 67 Respiratory 18 18 18 Rate Blood Pressure 135/56 135/56 135/56 O2 Sat by Pulse 98 98 98 Oximetry 08/28/20 08/28/20 08/28/20 23:39 23:40 23:50 Temperature 98.6 F Pulse Rate 65 65 Respiratory 18 18 Rate Blood Pressure 134/53 133/53 O2 Sat by Pulse 98 98 Oximetry 08/29/20 08/29/20 08/29/20 00:00 00:05 00:10 Temperature Pulse Rate 64 64 64 Respiratory 18 18 Rate Blood Pressure 133/53 135/56 135/56 O2 Sat by Pulse 99 99 99 Oximetry 08/29/20 08/29/20 08/29/20 00:20 00:30 00:40 Temperature Pulse Rate 63 65 64 Respiratory 18 18 18 Rate Blood Pressure 123/51 123/51 142/58 O2 Sat by Pulse 99 99 98 Oximetry 08/29/20 08/29/20 08/29/20 00:50 01:00 01:10 Temperature Pulse Rate 63 63 62 Respiratory 18 18 18 Rate Blood Pressure 143/58 143/58 145/59 O2 Sat by Pulse 99 98 98 Oximetry 08/29/20 08/29/20 08/29/20 01:20 01:30 01:40 Temperature Pulse Rate 62 68 63 Respiratory 18 18 18 Rate Blood Pressure 140/56 140/56 171/63 O2 Sat by Pulse 99 98 99 Oximetry 08/29/20 08/29/20 08/29/20 01:50 01:55 02:00 Temperature Pulse Rate 62 62 61 Respiratory 18 18 Rate Blood Pressure 161/56 161/87 161/56 O2 Sat by Pulse 99 99 Oximetry 08/29/20 08/29/20 08/29/20 02:10 02:20 02:30 Temperature Pulse Rate 60 60 62 Respiratory 18 18 16 Rate Blood Pressure 187/52 129/52 129/52 O2 Sat by Pulse 98 99 99 Oximetry 08/29/20 08/29/20 08/29/20 02:40 02:50 03:00 Temperature Pulse Rate 69 94 H 74 Respiratory 18 20 18 Rate Blood Pressure 143/58 176/81 176/81 O2 Sat by Pulse 97 95 98 Oximetry 08/29/20 08/29/20 08/29/20 03:10 03:12 03:20 Temperature 97.7 F Pulse Rate 72 71 Respiratory 18 18 Rate Blood Pressure 200/79 200/79 O2 Sat by Pulse 98 99 Oximetry 08/29/20 08/29/20 08/29/20 03:30 03:40 03:41 Temperature Pulse Rate 68 89 83 Respiratory 18 29 H Rate Blood Pressure 200/79 194/68 194/68 O2 Sat by Pulse 100 54 L 100 Oximetry 08/29/20 08/29/20 08/29/20 03:50 04:00 04:03 Temperature Pulse Rate 77 75 73 Respiratory 18 18 Rate Blood Pressure 194/68 194/68 194/74 O2 Sat by Pulse 99 98 Oximetry 08/29/20 08/29/20 08/29/20 04:10 04:20 04:30 Temperature Pulse Rate 72 74 70 Respiratory 18 18 18 Rate Blood Pressure 194/74 161/69 161/69 O2 Sat by Pulse 98 99 98 Oximetry 08/29/20 08/29/20 08/29/20 04:40 04:50 05:00 Temperature Pulse Rate 72 72 72 Respiratory 18 18 18 Rate Blood Pressure 159/63 161/68 161/68 O2 Sat by Pulse 98 98 98 Oximetry 08/29/20 08/29/20 08/29/20 05:09 05:10 05:20 Temperature Pulse Rate 71 71 68 Respiratory 18 18 Rate Blood Pressure 155/66 155/66 154/58 O2 Sat by Pulse 98 98 Oximetry 08/29/20 08/29/20 08/29/20 05:30 05:40 05:50 Temperature Pulse Rate 72 70 71 Respiratory 18 18 18 Rate Blood Pressure 154/58 168/70 162/69 O2 Sat by Pulse 98 98 98 Oximetry 08/29/20 08/29/20 08/29/20 06:00 06:10 06:20 Temperature Pulse Rate 71 71 70 Respiratory 18 18 18 Rate Blood Pressure 162/69 166/69 166/70 O2 Sat by Pulse 98 98 98 Oximetry 08/29/20 08/29/20 08/29/20 06:30 06:40 07:56 Temperature 97.7 F Pulse Rate 68 72 Respiratory 18 18 Rate Blood Pressure 166/69 139/60 O2 Sat by Pulse 98 98 Oximetry 08/29/20 08/29/20 08/29/20 08:41 08:45 09:10 Temperature Pulse Rate 74 76 79 Respiratory 23 Rate Blood Pressure 105/79 197/74 187/69 O2 Sat by Pulse 100 97 Oximetry 08/29/20 09:14 Temperature Pulse Rate 74 Respiratory Rate Blood Pressure 187/89 O2 Sat by Pulse Oximetry - Lab 08/29/20 04:32 08/29/20 04:32 Most recent lab results ABG pH 7.435 pH Units (7.350-7.450) 08/29/20 04:50 ABG pCO2 38.5 mm Hg 08/29/20 04:50 ABG pO2 86.1 mm Hg (80.0-90.0) 08/29/20 04:50 ABG HCO3 25.3 mmol/L (20.0-26.0) 08/29/20 04:50 ABG O2 Saturation 97.1 % (95.0-99.0) 08/29/20 04:50 Calcium 8.2 mg/dL (8.4-10.2) L 08/29/20 04:32 Phosphorus 4.40 mg/dL (2.5-4.5) 08/29/20 04:32 Urine Creatinine 67.4 mg/dL (0.1-20.0) H 08/26/20 17:00 Urine Sodium 12 mmol/L 08/26/20 17:00 Medications & Allergies - Medications Allergies/Adverse Reactions: Allergies No Known Allergies Allergy (Verified 07/31/18 07:06) Home Medications: Home Medications Medication Instructions Recorded Confirmed Last Taken Type Albuterol Mdi (or & Nicu Only) 2 puff IH QID PRN #1 inhalation 08/07/18 03/14/20 Unknown Rx [ProAir HFA Inhaler] Sucralfate [Carafate] 1 gm PO ACHS #30 tablet 08/07/18 03/14/20 03/13/20 Rx Insulin Regular, Human [HumuLIN R] 0 unit SQ AC #1 vial 08/11/18 03/14/20 Unknown Rx Labetalol HCl [Labetalol 300mg TAB] 300 mg PO BID #60 tablet 11/11/19 03/14/20 03/14/20 Rx Furosemide [Lasix TAB] 80 mg PO DAILY #14 tablet 03/27/20 Unknown Rx Insulin Glargine [Lantus VIAL] 15 units SUB-Q QAM #1 vial 03/27/20 Unknown Rx amLODIPine 10 mg PO QDAY #30 tablet 03/27/20 Unknown Rx Active Medications: Generic Name Dose Route Start Last Admin Trade Name Freq PRN Reason Stop Dose Admin Albuterol 2.5 mg 08/25/20 14:55 Albuterol 2.5 Mg/3 Ml Nebu IH Q3HRT PRN Shortness Of Breath Amlodipine Besylate 5 mg 08/28/20 10:00 08/29/20 09:14 Amlodipine 5 Mg Tab PO 5 mg QDAY TERA Administration Lipase/Protease/Amylase 1 each 08/26/20 12:15 Lipase 10,500/Protease 25,000/Amylase 43,750 (Units) Dr Gu FEEDTUBE PRN PRN For Clogged Feeding Tube Aspirin 81 mg 08/27/20 10:00 08/29/20 09:13 Aspirin 81 Mg Tab Chew PO 81 mg QDAY TERA Administration Atorvastatin Calcium 40 mg 08/26/20 22:00 08/28/20 21:23 Atorvastatin 40 Mg Tab PO 40 mg QHS TERA Administration Azithromycin 250 mg 08/28/20 10:00 08/29/20 09:14 Azithromycin 250 Mg Tab PO 08/31/20 10:01 250 mg QDAY TERA Administration Protocol Dextrose 50 ml 08/26/20 19:18 Dextrose 50% In Water (25gm) 50 Ml Syringe IV Q30MIN PRN Hypoglycemia Protocol Famotidine 20 mg 08/28/20 10:00 08/29/20 09:14 Famotidine 20 Mg Tab PO 20 mg DAILY TERA Administration Fentanyl 50 mcg 08/26/20 17:11 Fentanyl 100 Mcg/2 Ml Inj IV Q10MIN PRN ANALGESIA Heparin Sodium (Porcine) 5,000 unit 08/26/20 22:00 08/29/20 09:16 Heparin 5,000 Unit/1 Ml Vial SUB-Q 5,000 unit Q12HR TERA Administration Hydralazine HCl 10 mg 08/26/20 01:20 08/29/20 04:03 Hydralazine 20 Mg/1 Ml Inj IV 10 mg Q4HR PRN Administration Blood Pressure Hydralazine HCl 50 mg 08/28/20 14:00 08/29/20 05:09 Hydralazine 25 Mg Tab PO 50 mg Q8HR TERA Administration Hydrophilic Ointment 1 applic 08/25/20 11:07 08/25/20 11:57 Lip Therapy Vaseline TP 1 applic Q2HR PRN Administration Dry Lips Levetiracetam 500 mg/ Dextrose 105 mls @ 400 mls/hr 08/26/20 10:00 08/29/20 09:18 IV 400 mls/hr Q12HR TERA Administration Propofol 1,000 mg in 100 mls @ 2.838 mls/hr 08/25/20 20:48 08/28/20 07:45 Diprivan 10 Mg/Ml IV Infused TITR TERA Titration Protocol 5 MCG/KG/MIN Ceftriaxone Sodium 2 gm in 100 mls @ 200 mls/hr 08/26/20 11:00 08/28/20 10:39 Rocephin/Ns 2 Gm/100 Ml IV 08/30/20 11:29 200 mls/hr Q24H TERA Administration Protocol Fentanyl Citrate 2,000 mcg in 100 mls @ 4.605 mls/hr 08/26/20 18:00 08/28/20 19:00 Fentanyl Drip Premix IV 0 mcg/kg/hr TITR TERA 0 mls/hr Titration Protocol 1 MCG/KG/HR Insulin Glargine 10 units 08/29/20 22:00 Insulin Glargine 100 Units/Ml SUB-Q QHS TERA Insulin Human Lispro 0 unit 08/27/20 12:00 08/29/20 05:07 Insulin Lispro 100 Unit/Ml SUB-Q 3 unit Q6HR TERA Administration Protocol Metoprolol Tartrate 2.5 mg 08/27/20 13:30 08/29/20 09:10 Metoprolol Tartrate 5 Mg/5 Ml Inj IV 2.5 mg Q6H TERA Administration Multi-Ingred Cream/Lotion/Oil/Oint 1 applic 08/25/20 11:07 Mineral Oil/Petrolatum, White Ophth Oint 3.5 Gm OU Q4HR PRN Dry Eye(s) Senna/Docusate Sodium 1 tab 08/25/20 22:00 08/29/20 09:13 Sennosides/Docusate Sodium 8.6/50 Mg Tab FEEDTUBE 1 tab BID TERA Administration Simple Syrup 15 ml 08/26/20 12:15 Simple Syrup 15 Ml FEEDTUBE PRN PRN Hypoglycemia Simple Syrup 30 ml 08/26/20 12:15 Simple Syrup 15 Ml FEEDTUBE PRN PRN Hypoglycemia Sodium Bicarbonate 325 mg 08/26/20 12:15 Sodium Bicarbonate 325 Mg Tab FEEDTUBE PRN PRN For Clogged Feeding Tube Sodium Chloride 10 ml 08/25/20 22:00 08/29/20 09:15 Sodium Chloride 0.9% 10 Ml Flush Syringe IV 10 ml BID TERA Administration Sodium Chloride 10 ml 08/25/20 14:55 08/29/20 04:05 Sodium Chloride 0.9% 10 Ml Flush Syringe IV 10 ml PRN PRN Administration LINE FLUSH
[2020-08-29 11:21] LABS: ABG Base Excess 1.4 mmol/L (-2.0-3.0); ABG HCO3 26.6 mmol/L (20.0-26.0); ABG Methemoglobin 0.6 % (0.0-1.5); ABG Oxygen Saturation 96.2 % (95.0-99.0); ABG PH 7.39 pH Units (7.350-7.450); ABG PO2 78.7 mm Hg (80.0-90.0)
[2020-08-29] MEDS: cefTRIAXone/NS 2 GM/100 ML 2 GM/100 ML BAG IV SCH (11:35)
[2020-08-29] MEDS ORDERED: LORazepam 2 MG/ML VIAL IV NR (11:36)
--- NOTE | 2020-08-29 12:53 | Progress Note ---
Assessment and Plan Acute hypoxemic respiratory failure Cardiac arrest with ROSC Acute encephalopathy Multifocal pneumonia Possible bilateral pulmonary edema Congestive heart failure with an acute exacerbation Anemia Hyperkalemia Lactic acidosis Acute kidney injury Elevated serum transaminases Non-ST elevation SD Oropharyngeal dysphagia - get US chest +/- thoracentesis - she will likely need a tracheostomy tube if AMS is persistent - neurology evaluation ongoing (for MRI) - change toprol from I.V. to p.o. - discontinue foreman catheter if OK with nephrology - azotemia management per nephrology team - continue care as below otherwise; - continue Daily SAT and SBT assessment as tolerated - continue to wean supplemental oxygen for target O2 sat's > 92% acutely - VAP bundle addressed - continue lung protective strategies - continue bronchodilators with pulmonary hygiene per RT - wean per pulmonary driven protocols otherwise - continue accuchecks with glycemic control per SSI (While critically ill target blood glucose of 140-180 mg/dL; avoid hypoglycemia) - sedation prn for target RASS -1 to -2 - avoid nephrotoxins, renally dose all medications - continue to avoid benzodiazepine's, reduce the possibility of delirium - complete AB's per ID rec's - prn analgesia per CPOT score - Maintenance of sleep-wake cycle, avoid delirium - enteral nutritional support at goal rate as tolerated - G.I. & VTE prophylaxis - PT/OT/ROM exercises - continue mobility protocols for pressure ulcer prophylaxis - Monitor hemodynamics closely - continue other care per attending / other consultants - discharge planning ongoing concurrently COVID SPECIFIC INTERVENTIONS - COVID-19 PCR negative .... Re-evaluate in am & prn CONDITION: CRITICAL PROGNOSIS: GUARDED CODE STATUS: FULL CODE The high probability of a clinically significant, sudden or life-threatening deterioration of the [respiratory, cardiovascular & neurologic] system(s) required my full and direct attention, intervention and personal management. The aggregate critical care time was [35] minutes without overlap. Time includes spent on; [x] Data Review and interpretation [x] Patient assessment and monitoring of vital signs [x] Documentation [x] Medication orders and management Subjective Date of service: 08/29/20 Principal diagnosis: Ac. hypoxemic resp failure; Cardiac arrest; AMS; AE-CHF; Hyperkalemia; FLORIDALMA Interval history: Patient is seen today for: Acute hypoxemic respiratory failure; Cardiac arrest with ROSC; Acute encephalopathy; Multifocal pneumonia; pulmonary edema; AE-CHF; Hyperkalemia; FLORIDALMA; NSTEMI Seen and examined at bedside; 24hour events reviewed; nursing and respiratory care staff consulted; no adverse overnight events reported to me; resting in bed; remains on MVS; tolerating SBT now with p-supp at 12; AMS is persistent Objective Vital Signs - 12hr 08/29/20 08/29/20 08/29/20 01:00 01:10 01:20 Temperature Pulse Rate 63 62 62 Respiratory 18 18 18 Rate Blood Pressure 143/58 145/59 140/56 O2 Sat by Pulse 98 98 99 Oximetry 08/29/20 08/29/20 08/29/20 01:30 01:40 01:50 Temperature Pulse Rate 68 63 62 Respiratory 18 18 18 Rate Blood Pressure 140/56 171/63 161/56 O2 Sat by Pulse 98 99 99 Oximetry 08/29/20 08/29/20 08/29/20 01:55 02:00 02:10 Temperature Pulse Rate 62 61 60 Respiratory 18 18 Rate Blood Pressure 161/87 161/56 187/52 O2 Sat by Pulse 99 98 Oximetry 08/29/20 08/29/20 08/29/20 02:20 02:30 02:40 Temperature Pulse Rate 60 62 69 Respiratory 18 16 18 Rate Blood Pressure 129/52 129/52 143/58 O2 Sat by Pulse 99 99 97 Oximetry 08/29/20 08/29/20 08/29/20 02:50 03:00 03:10 Temperature Pulse Rate 94 H 74 72 Respiratory 20 18 18 Rate Blood Pressure 176/81 176/81 200/79 O2 Sat by Pulse 95 98 98 Oximetry 08/29/20 08/29/20 08/29/20 03:12 03:20 03:30 Temperature 97.7 F Pulse Rate 71 68 Respiratory 18 18 Rate Blood Pressure 200/79 200/79 O2 Sat by Pulse 99 100 Oximetry 08/29/20 08/29/20 08/29/20 03:40 03:41 03:50 Temperature Pulse Rate 89 83 77 Respiratory 29 H 18 Rate Blood Pressure 194/68 194/68 194/68 O2 Sat by Pulse 54 L 100 99 Oximetry 08/29/20 08/29/20 08/29/20 04:00 04:03 04:10 Temperature Pulse Rate 75 73 72 Respiratory 18 18 Rate Blood Pressure 194/68 194/74 194/74 O2 Sat by Pulse 98 98 Oximetry 08/29/20 08/29/20 08/29/20 04:20 04:30 04:40 Temperature Pulse Rate 74 70 72 Respiratory 18 18 18 Rate Blood Pressure 161/69 161/69 159/63 O2 Sat by Pulse 99 98 98 Oximetry 08/29/20 08/29/20 08/29/20 04:50 05:00 05:09 Temperature Pulse Rate 72 72 71 Respiratory 18 18 Rate Blood Pressure 161/68 161/68 155/66 O2 Sat by Pulse 98 98 Oximetry 08/29/20 08/29/20 08/29/20 05:10 05:20 05:30 Temperature Pulse Rate 71 68 72 Respiratory 18 18 18 Rate Blood Pressure 155/66 154/58 154/58 O2 Sat by Pulse 98 98 98 Oximetry 08/29/20 08/29/20 08/29/20 05:40 05:50 06:00 Temperature Pulse Rate 70 71 71 Respiratory 18 18 18 Rate Blood Pressure 168/70 162/69 162/69 O2 Sat by Pulse 98 98 98 Oximetry 08/29/20 08/29/20 08/29/20 06:10 06:20 06:30 Temperature Pulse Rate 71 70 68 Respiratory 18 18 18 Rate Blood Pressure 166/69 166/70 166/69 O2 Sat by Pulse 98 98 98 Oximetry 08/29/20 08/29/20 08/29/20 06:40 07:56 08:41 Temperature 97.7 F Pulse Rate 72 74 Respiratory 18 Rate Blood Pressure 139/60 105/79 O2 Sat by Pulse 98 100 Oximetry 08/29/20 08/29/20 08/29/20 08:45 09:10 09:14 Temperature Pulse Rate 76 79 74 Respiratory 23 Rate Blood Pressure 197/74 187/69 187/89 O2 Sat by Pulse 97 Oximetry 08/29/20 12:36 Temperature Pulse Rate 77 Respiratory 27 H Rate Blood Pressure 129/61 O2 Sat by Pulse 97 Oximetry Constitutional: no acute distress, other (elderly obese female with mildly increased respirtatory effort at rest on MVS ) Eyes: non-icteric ENT: oropharynx moist, other (ETT 24 cm DIMAS) Neck: supple, no lymphadenopathy, no JVD Effort: mildly labored Ascultation: Bilateral: diminished breath sounds, rhonchi Percussion: Bilateral: not dull Cardiovascular: regular rate and rhythm Gastrointestinal: normoactive bowel sounds, soft, non-tender, non-distended Integumentary: normal Extremities: no cyanosis, no edema, pulses normal, no ischemia or petechiae Neurologic: non-focal exam (grossly), pupils equal and round, unable to assess Psychiatric: other (unable to assess re: AMS) CBC and BMP: 08/29/20 04:32 08/29/20 04:32 ABG, PT/INR, D-dimer: ABG ABG pH 7.390 pH Units (7.350-7.450) 08/29/20 11:10 POC ABG pCO2 33.7 mmHg (32.0-48.0) 08/27/20 04:10 ABG pCO2 45.0 mm Hg 08/29/20 11:10 POC ABG pO2 74.9 mmHg (83-108) L 08/27/20 04:10 ABG pO2 78.7 mm Hg (80.0-90.0) L 08/29/20 11:10 POC ABG HCO3 23.1 08/27/20 04:10 ABG O2 Saturation 96.2 % (95.0-99.0) 08/29/20 11:10 PT/INR, D-dimer D-Dimer > 77628 ng/mlDDU (0-234) H 08/25/20 11:23 Abnormal lab findings: Abnormal Labs 08/25/20 08/25/20 08/25/20 11:14 11:17 11:23 WBC 11.5 H RBC 3.22 L Hgb 8.6 L Hct 27.6 L MCH 27 L RDW 15.6 H Lymph % (Auto) Lymph # (Auto) Seg Neutrophils % Seg Neuts % (Manual) 89.0 H Lymphocytes % (Manual) 5.0 L Seg Neutrophils # Seg Neutrophils # Man 10.2 H Lymphocytes # (Manual) 0.6 L D-Dimer ABG pH 7.290 L POC ABG pO2 161.1 H ABG pO2 ABG HCO3 ABG Hemoglobin 8.9 L ABG Oxyhemoglobin 98.6 H ABG Sodium 135.2 L ABG Potassium 5.9 H ABG Glucose 210 H Oxyhemoglobin Carboxyhemoglobin 0.4 L Sodium Potassium Chloride Carbon Dioxide BUN Creatinine Glucose POC Glucose Lactic Acid Calcium AST ALT Troponin T C-Reactive Protein Total Protein Albumin Arterial Blood Glucose 210 H Arterial Blood Ionized Calcium 4.4 L Urine WBC (Auto) 31.0 H Urine Creatinine 08/25/20 08/25/20 08/25/20 11:23 11:23 11:23 WBC RBC Hgb Hct MCH RDW Lymph % (Auto) Lymph # (Auto) Seg Neutrophils % Seg Neuts % (Manual) Lymphocytes % (Manual) Seg Neutrophils # Seg Neutrophils # Man Lymphocytes # (Manual) D-Dimer > 40282 H ABG pH POC ABG pO2 ABG pO2 ABG HCO3 ABG Hemoglobin ABG Oxyhemoglobin ABG Sodium ABG Potassium ABG Glucose Oxyhemoglobin Carboxyhemoglobin Sodium Potassium 6.4 H* Chloride Carbon Dioxide 21 L BUN 52 H Creatinine 3.5 H Glucose 194 H POC Glucose Lactic Acid 3.30 H* Calcium 8.1 L AST 103 H ALT 77 H Troponin T 0.057 H C-Reactive Protein Total Protein 5.8 L Albumin 3.4 L Arterial Blood Glucose Arterial Blood Ionized Calcium Urine WBC (Auto) Urine Creatinine 08/25/20 08/25/20 08/25/20 13:51 15:45 20:34 WBC RBC Hgb Hct MCH RDW Lymph % (Auto) Lymph # (Auto) Seg Neutrophils % Seg Neuts % (Manual) Lymphocytes % (Manual) Seg Neutrophils # Seg Neutrophils # Man Lymphocytes # (Manual) D-Dimer ABG pH POC ABG pO2 66.3 L ABG pO2 ABG HCO3 ABG Hemoglobin 9.1 L ABG Oxyhemoglobin 92.5 L ABG Sodium ABG Potassium ABG Glucose 225 H Oxyhemoglobin Carboxyhemoglobin Sodium Potassium Chloride Carbon Dioxide BUN Creatinine Glucose POC Glucose 188 H 233 H Lactic Acid Calcium AST ALT Troponin T C-Reactive Protein Total Protein Albumin Arterial Blood Glucose 225 H Arterial Blood Ionized Calcium 4.4 L Urine WBC (Auto) Urine Creatinine 08/26/20 08/26/20 08/26/20 04:14 05:04 05:04 WBC 17.9 H RBC 3.05 L Hgb 8.3 L Hct 25.6 L MCH 27 L RDW 15.3 H Lymph % (Auto) Lymph # (Auto) Seg Neutrophils % Seg Neuts % (Manual) 96.0 H Lymphocytes % (Manual) 1.0 L Seg Neutrophils # Seg Neutrophils # Man 17.2 H Lymphocytes # (Manual) 0.2 L D-Dimer ABG pH POC ABG pO2 131.3 H ABG pO2 ABG HCO3 ABG Hemoglobin 8.6 L ABG Oxyhemoglobin 98.2 H ABG Sodium ABG Potassium ABG Glucose 182 H Oxyhemoglobin Carboxyhemoglobin 0.2 L Sodium Potassium Chloride Carbon Dioxide BUN 56 H Creatinine 3.4 H Glucose 187 H POC Glucose Lactic Acid Calcium 8.3 L AST 54 H ALT 57 H Troponin T C-Reactive Protein Total Protein 5.4 L Albumin 2.9 L Arterial Blood Glucose 182 H Arterial Blood Ionized Calcium 4.3 L Urine WBC (Auto) Urine Creatinine 08/26/20 08/26/20 08/26/20 05:40 07:36 11:54 WBC RBC Hgb Hct MCH RDW Lymph % (Auto) Lymph # (Auto) Seg Neutrophils % Seg Neuts % (Manual) Lymphocytes % (Manual) Seg Neutrophils # Seg Neutrophils # Man Lymphocytes # (Manual) D-Dimer ABG pH POC ABG pO2 ABG pO2 ABG HCO3 ABG Hemoglobin ABG Oxyhemoglobin ABG Sodium ABG Potassium ABG Glucose Oxyhemoglobin Carboxyhemoglobin Sodium Potassium Chloride Carbon Dioxide BUN Creatinine Glucose POC Glucose 179 H 171 H 190 H Lactic Acid Calcium AST ALT Troponin T C-Reactive Protein Total Protein Albumin Arterial Blood Glucose Arterial Blood Ionized Calcium Urine WBC (Auto) Urine Creatinine 08/26/20 08/26/20 08/26/20 15:14 17:00 18:50 WBC RBC Hgb Hct MCH RDW Lymph % (Auto) Lymph # (Auto) Seg Neutrophils % Seg Neuts % (Manual) Lymphocytes % (Manual) Seg Neutrophils # Seg Neutrophils # Man Lymphocytes # (Manual) D-Dimer ABG pH POC ABG pO2 ABG pO2 ABG HCO3 ABG Hemoglobin ABG Oxyhemoglobin ABG Sodium ABG Potassium ABG Glucose Oxyhemoglobin Carboxyhemoglobin Sodium Potassium Chloride Carbon Dioxide BUN Creatinine Glucose POC Glucose 158 H Lactic Acid Calcium AST ALT Troponin T C-Reactive Protein 7.80 H Total Protein Albumin Arterial Blood Glucose Arterial Blood Ionized Calcium Urine WBC (Auto) Urine Creatinine 67.4 H 08/26/20 08/27/20 08/27/20 22:01 04:10 05:12 WBC RBC Hgb Hct MCH RDW Lymph % (Auto) Lymph # (Auto) Seg Neutrophils % Seg Neuts % (Manual) Lymphocytes % (Manual) Seg Neutrophils # Seg Neutrophils # Man Lymphocytes # (Manual) D-Dimer ABG pH 7.454 H POC ABG pO2 74.9 L ABG pO2 ABG HCO3 ABG Hemoglobin 7.9 L ABG Oxyhemoglobin ABG Sodium ABG Potassium ABG Glucose 117 H Oxyhemoglobin Carboxyhemoglobin Sodium Potassium Chloride Carbon Dioxide BUN Creatinine Glucose POC Glucose 122 H 117 H Lactic Acid Calcium AST ALT Troponin T C-Reactive Protein Total Protein Albumin Arterial Blood Glucose 117 H Arterial Blood Ionized Calcium 4.4 L Urine WBC (Auto) Urine Creatinine 08/27/20 08/27/20 08/27/20 07:24 07:24 11:08 WBC 12.7 H RBC 2.92 L Hgb 8.1 L Hct 24.4 L MCH RDW 15.4 H Lymph % (Auto) 5.9 L Lymph # (Auto) 0.8 L Seg Neutrophils % 86.9 H Seg Neuts % (Manual) Lymphocytes % (Manual) Seg Neutrophils # 11.0 H Seg Neutrophils # Man Lymphocytes # (Manual) D-Dimer ABG pH POC ABG pO2 ABG pO2 ABG HCO3 ABG Hemoglobin ABG Oxyhemoglobin ABG Sodium ABG Potassium ABG Glucose Oxyhemoglobin Carboxyhemoglobin Sodium Potassium Chloride Carbon Dioxide BUN 60 H Creatinine 3.6 H Glucose 135 H POC Glucose 139 H Lactic Acid Calcium AST ALT Troponin T C-Reactive Protein Total Protein 5.3 L Albumin 2.6 L Arterial Blood Glucose Arterial Blood Ionized Calcium Urine WBC (Auto) Urine Creatinine 08/27/20 08/27/20 08/27/20 11:19 17:31 23:25 WBC RBC Hgb Hct MCH RDW Lymph % (Auto) Lymph # (Auto) Seg Neutrophils % Seg Neuts % (Manual) Lymphocytes % (Manual) Seg Neutrophils # Seg Neutrophils # Man Lymphocytes # (Manual) D-Dimer ABG pH POC ABG pO2 ABG pO2 ABG HCO3 ABG Hemoglobin ABG Oxyhemoglobin ABG Sodium ABG Potassium ABG Glucose Oxyhemoglobin Carboxyhemoglobin Sodium Potassium Chloride Carbon Dioxide BUN Creatinine Glucose POC Glucose 143 H 140 H 123 H Lactic Acid Calcium AST ALT Troponin T C-Reactive Protein Total Protein Albumin Arterial Blood Glucose Arterial Blood Ionized Calcium Urine WBC (Auto) Urine Creatinine 08/28/20 08/28/20 08/28/20 03:50 04:19 04:19 WBC RBC 2.80 L Hgb 7.8 L Hct 23.6 L MCH RDW 15.8 H Lymph % (Auto) Lymph # (Auto) Seg Neutrophils % Seg Neuts % (Manual) Lymphocytes % (Manual) Seg Neutrophils # Seg Neutrophils # Man Lymphocytes # (Manual) D-Dimer ABG pH 7.329 L POC ABG pO2 ABG pO2 76.7 L ABG HCO3 27.0 H ABG Hemoglobin 7.5 L ABG Oxyhemoglobin ABG Sodium ABG Potassium ABG Glucose Oxyhemoglobin 93.6 L Carboxyhemoglobin Sodium 135 L Potassium Chloride Carbon Dioxide BUN 64 H Creatinine 3.8 H Glucose 143 H POC Glucose Lactic Acid Calcium 8.0 L AST ALT Troponin T C-Reactive Protein Total Protein 4.8 L Albumin 2.4 L Arterial Blood Glucose Arterial Blood Ionized Calcium Urine WBC (Auto) Urine Creatinine 08/28/20 08/28/20 08/28/20 05:35 11:22 17:18 WBC RBC Hgb Hct MCH RDW Lymph % (Auto) Lymph # (Auto) Seg Neutrophils % Seg Neuts % (Manual) Lymphocytes % (Manual) Seg Neutrophils # Seg Neutrophils # Man Lymphocytes # (Manual) D-Dimer ABG pH POC ABG pO2 ABG pO2 ABG HCO3 ABG Hemoglobin ABG Oxyhemoglobin ABG Sodium ABG Potassium ABG Glucose Oxyhemoglobin Carboxyhemoglobin Sodium Potassium Chloride Carbon Dioxide BUN Creatinine Glucose POC Glucose 147 H 182 H 216 H Lactic Acid Calcium AST ALT Troponin T C-Reactive Protein Total Protein Albumin Arterial Blood Glucose Arterial Blood Ionized Calcium Urine WBC (Auto) Urine Creatinine 08/28/20 08/28/20 08/29/20 21:04 23:20 04:32 WBC RBC Hgb Hct MCH RDW Lymph % (Auto) Lymph # (Auto) Seg Neutrophils % Seg Neuts % (Manual) Lymphocytes % (Manual) Seg Neutrophils # Seg Neutrophils # Man Lymphocytes # (Manual) D-Dimer ABG pH POC ABG pO2 ABG pO2 ABG HCO3 ABG Hemoglobin ABG Oxyhemoglobin ABG Sodium ABG Potassium ABG Glucose Oxyhemoglobin Carboxyhemoglobin Sodium 135 L Potassium Chloride 96.0 L Carbon Dioxide BUN 67 H Creatinine 3.8 H Glucose 200 H POC Glucose 204 H 242 H Lactic Acid Calcium 8.2 L AST ALT Troponin T C-Reactive Protein Total Protein Albumin Arterial Blood Glucose Arterial Blood Ionized Calcium Urine WBC (Auto) Urine Creatinine 08/29/20 08/29/20 08/29/20 04:32 04:50 04:59 WBC RBC 3.25 L Hgb 9.0 L Hct 27.0 L MCH RDW 16.1 H Lymph % (Auto) Lymph # (Auto) Seg Neutrophils % Seg Neuts % (Manual) Lymphocytes % (Manual) Seg Neutrophils # Seg Neutrophils # Man Lymphocytes # (Manual) D-Dimer ABG pH POC ABG pO2 ABG pO2 ABG HCO3 ABG Hemoglobin 8.8 L ABG Oxyhemoglobin ABG Sodium ABG Potassium ABG Glucose Oxyhemoglobin Carboxyhemoglobin Sodium Potassium Chloride Carbon Dioxide BUN Creatinine Glucose POC Glucose 201 H Lactic Acid Calcium AST ALT Troponin T C-Reactive Protein Total Protein Albumin Arterial Blood Glucose Arterial Blood Ionized Calcium Urine WBC (Auto) Urine Creatinine 08/29/20 08/29/20 11:10 11:28 WBC RBC Hgb Hct MCH RDW Lymph % (Auto) Lymph # (Auto) Seg Neutrophils % Seg Neuts % (Manual) Lymphocytes % (Manual) Seg Neutrophils # Seg Neutrophils # Man Lymphocytes # (Manual) D-Dimer ABG pH POC ABG pO2 ABG pO2 78.7 L ABG HCO3 26.6 H ABG Hemoglobin 9.8 L ABG Oxyhemoglobin ABG Sodium ABG Potassium ABG Glucose Oxyhemoglobin 94.3 L Carboxyhemoglobin Sodium Potassium Chloride Carbon Dioxide BUN Creatinine Glucose POC Glucose 219 H Lactic Acid Calcium AST ALT Troponin T C-Reactive Protein Total Protein Albumin Arterial Blood Glucose Arterial Blood Ionized Calcium Urine WBC (Auto) Urine Creatinine Chest x-ray: image reviewed (persistent infiltrates / effusions) Allied health notes reviewed: nursing
--- NOTE | 2020-08-29 15:36 | Progress Note ---
<ERICHMIN HMaura - Last Filed: 08/29/20 15:37> Assessment and Plan Assessment and plan: This is a 75-year-old female with CHF, OHS DM, CKD, morbid obesity, GERD, hypertension, chronic respiratory failure admitted s/p cardiac arrest S/p cardiac arrest -ACLS per EMS with ROSC -Cardiology, neurology, CCM consulted and appreciate recommendations Acute hypoxic respiratory failure -Chronic respiratory insufficiency at home with 3 L oxygen via nasal cannula -Intubated for airway protection and hypoxia and adamant -Mechanical ventilation -Wean as tolerated -CCM consulted, patient recommendation -VAP bundle -Pulmonary hygiene Anoxic encephalopathy -Neurology consulted, appreciate recommendations -08/25 CT head shows no CT evidence of acute abnormality -08/28 MRI brain without contrast pending Seizure -08/28 EEG pending -Valeri -Seizure/aspiration precautions Multifocal pneumonia -08/25 CXR shows worsening patchy bilateral pulmonary opacities -08/25 CTA chest shows no evidence of pulmonary embolism, bilateral pulmonary processes with large bilateral pleural effusions, pneumonia is a concern, pulmonary edema could be a similar appearance versus pulmonary edema -Antibiotic therapy with Zithromax and Rocephin -Pulmonary hygiene, VAP bundle Mild cardiomyopathy -08/25 echocardiogram shows LVEF 40 to 45%, LV normal size, LV systolic function mildly decreased, mild diastolic dysfunction, mildly dilated right ventricle, pulmonary hypertension RVSP 45 mmHg -Continue aspirin, statin, metoprolol -Avoid NITIN/ARB in setting of FLORIDALMA Elevated D-Dimer -Ddimer >1000 -CTA (-) PE -heparin subq -s/p cardiac arrest Pleural effusions -Evidence on CT chest -Bilateral chest ultrasound ordered -Possible ultrasound-guided thoracentesis FLORIDALMA on CKD secondary to patient under nephropathy -Nephrology consulted, patient recommendations -Strict intake and output -Daily weights -Avoid nephrotoxic medications ? Acute Ischemic Stroke -ASA 325 mg NGT qday, statin therapy for a goal LDL of 70 -MR Brain w/o contrast w/ further studies based on MR findings. -Permissive hypertension for 72 hours per neurology Diabetes mellitus -SSI -Accu-Cheks every 6 -Tube feedings Anemia -Admit H/H 8.6/27.8 -Transfuse for hemoglobin less than 7 -Trend CBC Hypertension -Resume home amlodipine -Initiate hydralazine 50mg TID per cardiology -Blood pressure monitoring per protocol -IV hydralazine as needed Morbid obesity -Dietary and lifestyle modification counseling when appropriate DVT/GI prophylaxis: SCDs to bilateral lower extremities while in bed, heparin subcu, PPI Disposition: ICU Lines: PIV, foreman catheter/ remove if okay with nephrology The high probability of a clinically significant, sudden or life threatening deterioration of the [cardiac, pulmonary, neuro, renal, infectious disease] system(s) required my full and direct attention, intervention and personal management. The aggregate critical care time was [35] minutes. This time is in addition to time spent performing reported procedures but includes the followin g: [x] Data Review and interpretation [x] Patient assessment and monitoring of vital signs [x] Documentation [x] Medication orders and management History Interval history: This is a 69-year-old female with OHS, DM, CKD stage IV, morbid obesity CHF, GE RD, HTN, chronic respiratory failure on 3 L of home oxygen via nasal cannula who presented to the emergency department on 08/25 after being found down unresponsive at 0950 hours by family and upon EMS arrival she was unresponsive and asystolic arrest. Patient was treated with ACLS protocol with eventual ROSC after at least 15 minutes of ACLS and patient was transported to [facility]. In the emergency department patient was found to have acute hypoxic respiratory failure and subsequently intubated on vasopressor support, she underwent a CXR which showed bilateral pneumonia and exam is consistent with SIRS. CCM and cardiology were consulted and patient was admitted to the hospital service with acute hypoxic respiratory failure, anoxic encephalopathy, s/p cardiac arrest, multifocal pneumonia, FLORIDALMA on CKD. 08/26/20 patient is seen and examined. Patient is on vent. WBC 17.9 and hemoglobin 8.3 hematocrit 25.6. Patient may have 1 episode of questionable seizure. Patient BUN is 56 creatinine 3.4. Will consult nephrology. We also start the patient on Rocephin 2 g IV daily and Zithromax. Aspirin 81 mg p.o. daily and Lipitor. Patient is having echocardiogram. Cardiology and critical care will see the patient as consult tension. Continue current management. We have started on NG tube feeding and consult nutrition for evaluation. Recheck CBC BMP in the morning. Case discussed with daughter Leena [phone] 08/27: Patient remains on full ventilatory support, considering concern for seizure yesterday under the circumstance of out of hospital cardiac arrest, and concern for anoxic encephalopathy, will proceed with Neurology consultation. 08/28: At the time my examination patient sedation of propofol 30 and fentanyl 1 was being held and she was on CMV tidal and 450, rate of 18, PEEP of 6 and FiO2 of 35%. Neurology was consulted. I updated the patient's daughter Leena Payton at bedside and told her of the pending tests the neurologist has ordered. 08/29: Increase in Lantus due to persistent hypoglycemia, chest ultrasound ordered for possible thoracentesis by [facility], MRI brain pending. Remove Foreman catheter if okay with nephrology. Increase in beta-skylar by [facility] however cardiology decreased hydralazine per neurology recommendatiuons. At the time my examination patient was on CPAP trial pressure support of 12, PEEP of 6 and 35% FiO2. RT obtain an ABG we will continue CPAP as tolerated. Hospitalist Physical - Constitutional Vitals: Temp Pulse Resp BP Pulse Ox 97.8 F 73 26 H 162/68 97 08/29/20 12:00 08/29/20 14:15 08/29/20 14:00 08/29/20 14:15 08/29/20 14:00 General appearance: Present: obese - EENT Eyes: Present: PERRL, EOM intact ENT: poor dentition - Neck Neck: Present: normal ROM - Respiratory Respiratory effort: normal Respiratory: bilateral: diminished - Cardiovascular Rhythm: regular Heart Sounds: Present: S1 & S2. Absent: systolic murmur, diastolic murmur - Extremities Extremities: no ischemia, pulses intact, pulses symmetrical, normal temperature, normal color Peripheral Pulses: within normal limits - Abdominal General gastrointestinal: soft, non-tender, non-distended, normal bowel sounds - Integumentary Integumentary: Present: warm, dry - Neurologic Neurologic: other (weak cough, pupils not reactive to light, no response to verbal or tactile stimulation) - Allied Health Allied health notes reviewed: nursing, RT, social work HEART Score - HEART Score Troponin: Troponin T 0.057 ng/mL (0.00-0.029) H 08/25/20 11:23 Results - Labs CBC & Chem 7: 08/29/20 04:32 08/29/20 04:32 Labs: Laboratory Last Values WBC 10.8 K/mm3 (4.5-11.0) 08/29/20 04:32 RBC 3.25 M/mm3 (3.65-5.03) L 08/29/20 04:32 Hgb 9.0 gm/dl (10.1-14.3) L 08/29/20 04:32 Hct 27.0 % (30.3-42.9) L 08/29/20 04:32 MCV 83 fl (79-97) 08/29/20 04:32 MCH 28 pg (28-32) 08/29/20 04:32 MCHC 33 % (30-34) 08/29/20 04:32 RDW 16.1 % (13.2-15.2) H 08/29/20 04:32 Plt Count 192 K/mm3 (140-440) 08/29/20 04:32 Lymph % (Auto) 5.9 % (13.4-35.0) L 08/27/20 07:24 [place] % (Auto) 4.6 % (0.0-7.3) 08/27/20 07:24 Eos % (Auto) 2.2 % (0.0-4.3) 08/27/20 07:24 Baso % (Auto) 0.4 % (0.0-1.8) 08/27/20 07:24 Lymph # (Auto) 0.8 K/mm3 (1.2-5.4) L 08/27/20 07:24 [place] # (Auto) 0.6 K/mm3 (0.0-0.8) 08/27/20 07:24 Eos # (Auto) 0.3 K/mm3 (0.0-0.4) 08/27/20 07:24 Baso # (Auto) 0.0 K/mm3 (0.0-0.1) 08/27/20 07:24 Add Manual Diff Complete 08/26/20 05:04 Total Counted 100 08/26/20 05:04 Seg Neutrophils % 86.9 % (40.0-70.0) H 08/27/20 07:24 Seg Neuts % (Manual) 96.0 % (40.0-70.0) H 08/26/20 05:04 Band Neutrophils % 2.0 % 08/25/20 11:23 Lymphocytes % (Manual) 1.0 % (13.4-35.0) L 08/26/20 05:04 Monocytes % (Manual) 3.0 % (0.0-7.3) 08/26/20 05:04 Eosinophils % (Manual) 3.0 % (0.0-4.3) 08/25/20 11:23 Metamyelocytes % 1.0 % 08/25/20 11:23 Nucleated RBC % Not Reportable 08/26/20 05:04 Seg Neutrophils # 11.0 K/mm3 (1.8-7.7) H 08/27/20 07:24 Seg Neutrophils # Man 17.2 K/mm3 (1.8-7.7) H 08/26/20 05:04 Band Neutrophils # 0.0 K/mm3 08/26/20 05:04 Lymphocytes # (Manual) 0.2 K/mm3 (1.2-5.4) L 08/26/20 05:04 Abs React Lymphs (Man) 0.0 K/mm3 08/26/20 05:04 Monocytes # (Manual) 0.5 K/mm3 (0.0-0.8) 08/26/20 05:04 Eosinophils # (Manual) 0.0 K/mm3 (0.0-0.4) 08/26/20 05:04 Basophils # (Manual) 0.0 K/mm3 (0.0-0.1) 08/26/20 05:04 Metamyelocytes # 0.0 K/mm3 08/26/20 05:04 Myelocytes # 0.0 K/mm3 08/26/20 05:04 Promyelocytes # 0.0 K/mm3 08/26/20 05:04 Blast Cells # 0.0 K/mm3 08/26/20 05:04 WBC Morphology Not Reportable 08/26/20 05:04 Hypersegmented Neuts Not Reportable 08/26/20 05:04 Hyposegmented Neuts Not Reportable 08/26/20 05:04 Hypogranular Neuts Not Reportable 08/26/20 05:04 Smudge Cells Not Reportable 08/26/20 05:04 Toxic Granulation Not Reportable 08/26/20 05:04 Toxic Vacuolation Not Reportable 08/26/20 05:04 Dohle Bodies Not Reportable 08/26/20 05:04 Pelger-Huet Anomaly Not Reportable 08/26/20 05:04 Jannette Rods Not Reportable 08/26/20 05:04 Platelet Estimate Consistent w auto 08/26/20 05:04 Clumped Platelets Not Reportable 08/26/20 05:04 Plt Clumps, EDTA Not Reportable 08/26/20 05:04 Large Platelets Not Reportable 08/26/20 05:04 Giant Platelets Not Reportable 08/26/20 05:04 Platelet Satelliting Not Reportable 08/26/20 05:04 Plt Morphology Comment Not Reportable 08/26/20 05:04 RBC Morphology Not Reportable 08/26/20 05:04 Dimorphic RBCs Not Reportable 08/26/20 05:04 Polychromasia Not Reportable 08/26/20 05:04 Hypochromasia Not Reportable 08/26/20 05:04 Poikilocytosis Not Reportable 08/26/20 05:04 Anisocytosis 1+ 08/26/20 05:04 Microcytosis Not Reportable 08/26/20 05:04 Macrocytosis Not Reportable 08/26/20 05:04 Spherocytes Not Reportable 08/26/20 05:04 Pappenheimer Bodies Not Reportable 08/26/20 05:04 Sickle Cells Not Reportable 08/26/20 05:04 Target Cells Not Reportable 08/26/20 05:04 Tear Drop Cells Not Reportable 08/26/20 05:04 Ovalocytes Not Reportable 08/26/20 05:04 Helmet Cells Not Reportable 08/26/20 05:04 Fernando-Leach Bodies Not Reportable 08/26/20 05:04 [place] Rings Not Reportable 08/26/20 05:04 Spring Cells Not Reportable 08/26/20 05:04 Bite Cells Not Reportable 08/26/20 05:04 Crenated Cell Not Reportable 08/26/20 05:04 Elliptocytes Not Reportable 08/26/20 05:04 Acanthocytes (Spur) Not Reportable 08/26/20 05:04 Rouleaux Not Reportable 08/26/20 05:04 Hemoglobin C Crystals Not Reportable 08/26/20 05:04 Schistocytes Not Reportable 08/26/20 05:04 Malaria parasites Not Reportable 08/26/20 05:04 Shabbir Bodies Not Reportable 08/26/20 05:04 Hem Pathologist Commnt No 08/26/20 05:04 D-Dimer > 66497 ng/mlDDU (0-234) H 08/25/20 11:23 ABG pH 7.390 pH Units (7.350-7.450) 08/29/20 11:10 POC ABG pCO2 33.7 mmHg (32.0-48.0) 08/27/20 04:10 ABG pCO2 45.0 mm Hg 08/29/20 11:10 POC ABG pO2 74.9 mmHg (83-108) L 08/27/20 04:10 ABG pO2 78.7 mm Hg (80.0-90.0) L 08/29/20 11:10 POC ABG HCO3 23.1 08/27/20 04:10 ABG HCO3 26.6 mmol/L (20.0-26.0) H 08/29/20 11:10 ABG O2 Saturation 96.2 % (95.0-99.0) 08/29/20 11:10 ABG O2 Content 13.1 (0.0-44) 08/29/20 11:10 POC ABG Base Excess -0.6 08/27/20 04:10 ABG Base Excess 1.4 mmol/L (-2.0-3.0) 08/29/20 11:10 ABG Hemoglobin 9.8 gm/dl (12.0-16.0) L 08/29/20 11:10 ABG Oxyhemoglobin 94.0 (94-98) 08/27/20 04:10 ABG Carboxyhemoglobin 1.4 % (0.0-5.0) 08/29/20 11:10 ABG Methemoglobin 0.6 % (0.0-1.5) 08/29/20 11:10 ABG Sodium 136.3 mmol/L (136.0-145.0) 08/27/20 04:10 ABG Potassium 3.8 mmol/L (3.40-4.50) 08/27/20 04:10 ABG Chloride 103.0 mmol/L (98-107) 08/27/20 04:10 ABG Glucose 117 mg/dL (65-95) H 08/27/20 04:10 Oxyhemoglobin 94.3 % (95.0-99.0) L 08/29/20 11:10 Carboxyhemoglobin 0.8 (0.5-1.5) 08/27/20 04:10 FiO2 35 % 08/29/20 11:10 FiO2 % 40.0 08/27/20 04:10 Sodium 135 mmol/L (137-145) L 08/29/20 04:32 Potassium 3.9 mmol/L (3.6-5.0) 08/29/20 04:32 Chloride 96.0 mmol/L (98-107) L 08/29/20 04:32 Carbon Dioxide 25 mmol/L (22-30) 08/29/20 04:32 Anion Gap 18 mmol/L 08/29/20 04:32 BUN 67 mg/dL (7-17) H 08/29/20 04:32 Creatinine 3.8 mg/dL (0.6-1.2) H 08/29/20 04:32 Estimated GFR 12 ml/min 08/29/20 04:32 BUN/Creatinine Ratio 18 % 08/29/20 04:32 Glucose 200 mg/dL (65-100) H 08/29/20 04:32 POC Glucose 219 mg/dL (70-105) H 08/29/20 11:28 Lactic Acid 1.80 mmol/L (0.7-2.0) 08/25/20 12:45 Calcium 8.2 mg/dL (8.4-10.2) L 08/29/20 04:32 Phosphorus 4.40 mg/dL (2.5-4.5) 08/29/20 04:32 Total Bilirubin < 0.20 mg/dL (0.1-1.2) 08/28/20 04:19 AST 37 units/L (5-40) 08/28/20 04:19 ALT 27 units/L (7-56) 08/28/20 04:19 Alkaline Phosphatase 84 units/L (35-129) 08/28/20 04:19 Troponin T 0.057 ng/mL (0.00-0.029) H 08/25/20 11:23 C-Reactive Protein 7.80 mg/dL (0.00-1.30) H 08/26/20 18:50 Total Protein 4.8 g/dL (6.3-8.2) L 08/28/20 04:19 Albumin 2.4 g/dL (3.9-5) L 08/28/20 04:19 Albumin/Globulin Ratio 1.0 % 08/28/20 04:19 Triglycerides 111 mg/dL (2-149) 08/29/20 04:32 Cholesterol 158 mg/dL (50-199) 08/25/20 11:23 LDL Cholesterol Direct 101 mg/dL (50-130) 08/25/20 11:23 HDL Cholesterol 50 mg/dL (40-59) 08/25/20 11:23 Cholesterol/HDL Ratio 3.16 % 08/25/20 11:23 Procalcitonin 0.41 ng/mL (<0.15) 08/26/20 18:50 Arterial Blood Glucose 117 mg/dL (65-95) H 08/27/20 04:10 Arterial Blood Ionized Calcium 4.4 mg/dL (4.6-5.3) L 08/27/20 04:10 Urine Color Yellow (Yellow) 08/25/20 11:17 Urine Turbidity Cloudy (Clear) 08/25/20 11:17 Urine pH 7.0 (5.0-7.0) 08/25/20 11:17 Ur Specific [place] 1.012 (1.003-1.030) 08/25/20 11:17 Urine Protein >500 mg/dL (Negative) 08/25/20 11:17 Urine Glucose (UA) >=500 mg/dL (Negative) 08/25/20 11:17 Urine Ketones Neg mg/dL (Negative) 08/25/20 11:17 Urine Blood Sm (Negative) 08/25/20 11:17 Urine Nitrite Neg (Negative) 08/25/20 11:17 Urine Bilirubin Neg (Negative) 08/25/20 11:17 Urine Urobilinogen < 2.0 mg/dL (<2.0) 08/25/20 11:17 Ur Leukocyte Esterase Neg (Negative) 08/25/20 11:17 Urine WBC (Auto) 31.0 /HPF (0.0-6.0) H 08/25/20 11:17 Urine RBC (Auto) 28.0 /HPF (0.0-6.0) 08/25/20 11:17 U Epithel Cells (Auto) 5.0 /HPF (0-13.0) 08/25/20 11:17 Urine Bacteria (Auto) 1+ /HPF (Negative) 08/25/20 11:17 Urine WBC Clumps Few /HPF 08/25/20 11:17 Ur Renal Epithelial Cell 4 /LPF 08/25/20 11:17 Hyaline Casts 28 /LPF 08/25/20 11:17 Urine Creatinine 67.4 mg/dL (0.1-20.0) H 08/26/20 17:00 Urine Sodium 12 mmol/L 08/26/20 17:00 Coronavirus (PCR) Negative (Negative) 08/26/20 Unknown Microbiology: Microbiology 08/25/20 11:23 Peripheral/Venous Blood Culture - Preliminary NO GROWTH AFTER 4 DAYS 08/25/20 11:23 Peripheral/Venous Blood Culture - Preliminary NO GROWTH AFTER 4 DAYS Foreman/IV: Voiding Method Indwelling Catheter Active Medications - Current Medications Current Medications: Generic Name Dose Route Start Last Admin Trade Name Freq PRN Reason Stop Dose Admin Albuterol 2.5 mg 08/25/20 14:55 Albuterol 2.5 Mg/3 Ml Nebu IH Q3HRT PRN Shortness Of Breath Amlodipine Besylate 5 mg 08/28/20 10:00 08/29/20 09:14 Amlodipine 5 Mg Tab PO 5 mg QDAY TERA Administration Lipase/Protease/Amylase 1 each 08/26/20 12:15 Lipase 10,500/Protease 25,000/Amylase 43,750 (Units) Dr Gu FEEDTUBE PRN PRN For Clogged Feeding Tube Aspirin 81 mg 08/27/20 10:00 08/29/20 09:13 Aspirin 81 Mg Tab Chew PO 81 mg QDAY TERA Administration Atorvastatin Calcium 40 mg 08/26/20 22:00 08/28/20 21:23 Atorvastatin 40 Mg Tab PO 40 mg QHS TERA Administration Azithromycin 250 mg 08/28/20 10:00 08/29/20 09:14 Azithromycin 250 Mg Tab PO 08/31/20 10:01 250 mg QDAY TERA Administration Protocol Dextrose 50 ml 08/26/20 19:18 Dextrose 50% In Water (25gm) 50 Ml Syringe IV Q30MIN PRN Hypoglycemia Protocol Famotidine 20 mg 08/28/20 10:00 08/29/20 09:14 Famotidine 20 Mg Tab PO 20 mg DAILY TERA Administration Fentanyl 50 mcg 08/26/20 17:11 Fentanyl 100 Mcg/2 Ml Inj IV Q10MIN PRN ANALGESIA Heparin Sodium (Porcine) 5,000 unit 08/26/20 22:00 08/29/20 09:16 Heparin 5,000 Unit/1 Ml Vial SUB-Q 5,000 unit Q12HR TERA Administration Hydralazine HCl 10 mg 08/26/20 01:20 08/29/20 04:03 Hydralazine 20 Mg/1 Ml Inj IV 10 mg Q4HR PRN Administration Blood Pressure Hydralazine HCl 25 mg 08/29/20 15:00 08/29/20 14:15 Hydralazine 25 Mg Tab PO 25 mg Q8HR TERA Administration Hydrophilic Ointment 1 applic 08/25/20 11:07 08/25/20 11:57 Lip Therapy Vaseline TP 1 applic Q2HR PRN Administration Dry Lips Levetiracetam 500 mg/ Dextrose 105 mls @ 400 mls/hr 08/26/20 10:00 08/29/20 09:18 IV 400 mls/hr Q12HR TERA Administration Propofol 1,000 mg in 100 mls @ 2.838 mls/hr 08/25/20 20:48 08/28/20 07:45 Diprivan 10 Mg/Ml IV Infused TITR TERA Titration Protocol 5 MCG/KG/MIN Ceftriaxone Sodium 2 gm in 100 mls @ 200 mls/hr 08/26/20 11:00 08/29/20 11:35 Rocephin/Ns 2 Gm/100 Ml IV 08/30/20 11:29 200 mls/hr Q24H TERA Administration Protocol Fentanyl Citrate 2,000 mcg in 100 mls @ 4.605 mls/hr 08/26/20 18:00 08/28/20 19:00 Fentanyl Drip Premix IV 0 mcg/kg/hr TITR TERA 0 mls/hr Titration Protocol 1 MCG/KG/HR Insulin Glargine 10 units 08/29/20 22:00 Insulin Glargine 100 Units/Ml SUB-Q QHS TERA Insulin Human Lispro 0 unit 08/27/20 12:00 08/29/20 11:47 Insulin Lispro 100 Unit/Ml SUB-Q 3 unit Q6HR TERA Administration Protocol Lorazepam 1 mg 08/29/20 11:36 08/29/20 11:47 Lorazepam 2 Mg/Ml Vial IV 08/29/20 23:59 1 mg ONCE NR Administration Metoprolol Tartrate 12.5 mg 08/29/20 22:00 Metoprolol Tartrate 25 Mg Tab PO BID TERA Multi-Ingred Cream/Lotion/Oil/Oint 1 applic 08/25/20 11:07 Mineral Oil/Petrolatum, White Ophth Oint 3.5 Gm OU Q4HR PRN Dry Eye(s) Senna/Docusate Sodium 1 tab 08/25/20 22:00 08/29/20 09:13 Sennosides/Docusate Sodium 8.6/50 Mg Tab FEEDTUBE 1 tab BID TERA Administration Simple Syrup 15 ml 08/26/20 12:15 Simple Syrup 15 Ml FEEDTUBE PRN PRN Hypoglycemia Simple Syrup 30 ml 08/26/20 12:15 Simple Syrup 15 Ml FEEDTUBE PRN PRN Hypoglycemia Sodium Bicarbonate 325 mg 08/26/20 12:15 Sodium Bicarbonate 325 Mg Tab FEEDTUBE PRN PRN For Clogged Feeding Tube Sodium Chloride 10 ml 08/25/20 22:00 08/29/20 09:15 Sodium Chloride 0.9% 10 Ml Flush Syringe IV 10 ml BID TERA Administration Sodium Chloride 10 ml 08/25/20 14:55 08/29/20 04:05 Sodium Chloride 0.9% 10 Ml Flush Syringe IV 10 ml PRN PRN Administration LINE FLUSH Nutrition/Malnutrition Assess - Dietary Evaluation Nutrition/Malnutrition Findings: Nutrition Notes Start: 08/26/20 10:21 Freq: Status: Active Protocol: Document 08/28/20 11:02 (Rec: 08/28/20 11:06 [email or web address]) Nutrition Notes Initial or Follow up Reassessment Current Diagnosis Acute Kidney Injury,CKD(stage I-IV),Diabetes,Hypertension, Heart Failure,Respiratory Failure Other Pertinent Diagnosis cardiac arrest, acute encephalopathy, pneu, anoxIC brain injury, GERD Current Diet Nepro 1.8 at 30 ml/hr Labs/Tests Na 135 BUN 64 Cr 3.8 Pertinent Medications Propofol at 17.028 ml/hr ( 449kcal) Lasix Height 5 ft 5 in Weight 92.1 kg [place] Body Weight (kg) 56.81 BMI 33.7 Weight Status Obese Subjective/Other Information FU for TF tolerance and propofol. Pt still receiving substantial amount of calories from propofol. Per RN, pt tolerating TF. Percent of energy/protein needs met: 100%/58% Burn Absent Trauma Absent Current % PO Negligible Minimum of two criteria No physical signs of malnutrition #1 Nutrition Diagnosis Inadequate oral intake Diagnosis Progress(for reassessment Continues documentation) Is patient on ventilator? Yes Is Patient Ambulatory and/or Out of Bed No REE-([place]-confined to bed) 1700.436 Kcal/Kg value to use for calculation 14 Approximate Energy Requirements Using 1289 kcal/Kg Calculation Used for Recommendations Kcal/kg Additional Notes protein needs: >114g (>2 g/ kgIBW) fluid needs 1500 - 1900 ml or per MD order Nutrition Intervention Change Diet Order: Continue TF Nutrition Support: Recommend Nepro at 30 ml/hr with a free water flush of 130 ml q4h Kcal 1,296 Protein (gm) 58 Fluid (mL) 523 Goal #1 Meet at least 75% of kcal and protein needs as best as possible Anticipated Discharge Needs: unable to determine at this time Follow-Up By: 08/30/20 Additional Comments FU for TF tolernace and propofol rate <AMBER GONZALEZ - Last Filed: 08/29/20 15:47> Assessment and Plan Assessment and plan: Patient seen and examined, intubated, updated patient's daughter pertaining to MRI. Insulin has been adjusted. Neurology following. Prognosis is poor, possibly anoxic brain injury, will need to examine the MRI for confirmation. Hospitalist Physical - Constitutional Vitals: Temp Pulse Resp BP Pulse Ox 97.8 F 73 26 H 162/68 97 08/29/20 12:00 08/29/20 14:15 08/29/20 14:00 08/29/20 14:15 08/29/20 14:00 HEART Score - HEART Score Troponin: Troponin T 0.057 ng/mL (0.00-0.029) H 08/25/20 11:23 Results - Labs CBC & Chem 7: 08/29/20 04:32 08/29/20 04:32 Labs: Laboratory Last Values WBC 10.8 K/mm3 (4.5-11.0) 08/29/20 04:32 RBC 3.25 M/mm3 (3.65-5.03) L 08/29/20 04:32 Hgb 9.0 gm/dl (10.1-14.3) L 08/29/20 04:32 Hct 27.0 % (30.3-42.9) L 08/29/20 04:32 MCV 83 fl (79-97) 08/29/20 04:32 MCH 28 pg (28-32) 08/29/20 04:32 MCHC 33 % (30-34) 08/29/20 04:32 RDW 16.1 % (13.2-15.2) H 08/29/20 04:32 Plt Count 192 K/mm3 (140-440) 08/29/20 04:32 Lymph % (Auto) 5.9 % (13.4-35.0) L 08/27/20 07:24 [place] % (Auto) 4.6 % (0.0-7.3) 08/27/20 07:24 Eos % (Auto) 2.2 % (0.0-4.3) 08/27/20 07:24 Baso % (Auto) 0.4 % (0.0-1.8) 08/27/20 07:24 Lymph # (Auto) 0.8 K/mm3 (1.2-5.4) L 08/27/20 07:24 [place] # (Auto) 0.6 K/mm3 (0.0-0.8) 08/27/20 07:24 Eos # (Auto) 0.3 K/mm3 (0.0-0.4) 08/27/20 07:24 Baso # (Auto) 0.0 K/mm3 (0.0-0.1) 08/27/20 07:24 Add Manual Diff Complete 08/26/20 05:04 Total Counted 100 08/26/20 05:04 Seg Neutrophils % 86.9 % (40.0-70.0) H 08/27/20 07:24 Seg Neuts % (Manual) 96.0 % (40.0-70.0) H 08/26/20 05:04 Band Neutrophils % 2.0 % 08/25/20 11:23 Lymphocytes % (Manual) 1.0 % (13.4-35.0) L 08/26/20 05:04 Monocytes % (Manual) 3.0 % (0.0-7.3) 08/26/20 05:04 Eosinophils % (Manual) 3.0 % (0.0-4.3) 08/25/20 11:23 Metamyelocytes % 1.0 % 08/25/20 11:23 Nucleated RBC % Not Reportable 08/26/20 05:04 Seg Neutrophils # 11.0 K/mm3 (1.8-7.7) H 08/27/20 07:24 Seg Neutrophils # Man 17.2 K/mm3 (1.8-7.7) H 08/26/20 05:04 Band Neutrophils # 0.0 K/mm3 08/26/20 05:04 Lymphocytes # (Manual) 0.2 K/mm3 (1.2-5.4) L 08/26/20 05:04 Abs React Lymphs (Man) 0.0 K/mm3 08/26/20 05:04 Monocytes # (Manual) 0.5 K/mm3 (0.0-0.8) 08/26/20 05:04 Eosinophils # (Manual) 0.0 K/mm3 (0.0-0.4) 08/26/20 05:04 Basophils # (Manual) 0.0 K/mm3 (0.0-0.1) 08/26/20 05:04 Metamyelocytes # 0.0 K/mm3 08/26/20 05:04 Myelocytes # 0.0 K/mm3 08/26/20 05:04 Promyelocytes # 0.0 K/mm3 08/26/20 05:04 Blast Cells # 0.0 K/mm3 08/26/20 05:04 WBC Morphology Not Reportable 08/26/20 05:04 Hypersegmented Neuts Not Reportable 08/26/20 05:04 Hyposegmented Neuts Not Reportable 08/26/20 05:04 Hypogranular Neuts Not Reportable 08/26/20 05:04 Smudge Cells Not Reportable 08/26/20 05:04 Toxic Granulation Not Reportable 08/26/20 05:04 Toxic Vacuolation Not Reportable 08/26/20 05:04 Dohle Bodies Not Reportable 08/26/20 05:04 Pelger-Huet Anomaly Not Reportable 08/26/20 05:04 Jannette Rods Not Reportable 08/26/20 05:04 Platelet Estimate Consistent w auto 08/26/20 05:04 Clumped Platelets Not Reportable 08/26/20 05:04 Plt Clumps, EDTA Not Reportable 08/26/20 05:04 Large Platelets Not Reportable 08/26/20 05:04 Giant Platelets Not Reportable 08/26/20 05:04 Platelet Satelliting Not Reportable 08/26/20 05:04 Plt Morphology Comment Not Reportable 08/26/20 05:04 RBC Morphology Not Reportable 08/26/20 05:04 Dimorphic RBCs Not Reportable 08/26/20 05:04 Polychromasia Not Reportable 08/26/20 05:04 Hypochromasia Not Reportable 08/26/20 05:04 Poikilocytosis Not Reportable 08/26/20 05:04 Anisocytosis 1+ 08/26/20 05:04 Microcytosis Not Reportable 08/26/20 05:04 Macrocytosis Not Reportable 08/26/20 05:04 Spherocytes Not Reportable 08/26/20 05:04 Pappenheimer Bodies Not Reportable 08/26/20 05:04 Sickle Cells Not Reportable 08/26/20 05:04 Target Cells Not Reportable 08/26/20 05:04 Tear Drop Cells Not Reportable 08/26/20 05:04 Ovalocytes Not Reportable 08/26/20 05:04 Helmet Cells Not Reportable 08/26/20 05:04 Fernando-Leach Bodies Not Reportable 08/26/20 05:04 [place] Rings Not Reportable 08/26/20 05:04 Spring Cells Not Reportable 08/26/20 05:04 Bite Cells Not Reportable 08/26/20 05:04 Crenated Cell Not Reportable 08/26/20 05:04 Elliptocytes Not Reportable 08/26/20 05:04 Acanthocytes (Spur) Not Reportable 08/26/20 05:04 Rouleaux Not Reportable 08/26/20 05:04 Hemoglobin C Crystals Not Reportable 08/26/20 05:04 Schistocytes Not Reportable 08/26/20 05:04 Malaria parasites Not Reportable 08/26/20 05:04 Shabbir Bodies Not Reportable 08/26/20 05:04 Hem Pathologist Commnt No 08/26/20 05:04 D-Dimer > 09996 ng/mlDDU (0-234) H 08/25/20 11:23 ABG pH 7.390 pH Units (7.350-7.450) 08/29/20 11:10 POC ABG pCO2 33.7 mmHg (32.0-48.0) 08/27/20 04:10 ABG pCO2 45.0 mm Hg 08/29/20 11:10 POC ABG pO2 74.9 mmHg (83-108) L 08/27/20 04:10 ABG pO2 78.7 mm Hg (80.0-90.0) L 08/29/20 11:10 POC ABG HCO3 23.1 08/27/20 04:10 ABG HCO3 26.6 mmol/L (20.0-26.0) H 08/29/20 11:10 ABG O2 Saturation 96.2 % (95.0-99.0) 08/29/20 11:10 ABG O2 Content 13.1 (0.0-44) 08/29/20 11:10 POC ABG Base Excess -0.6 08/27/20 04:10 ABG Base Excess 1.4 mmol/L (-2.0-3.0) 08/29/20 11:10 ABG Hemoglobin 9.8 gm/dl (12.0-16.0) L 08/29/20 11:10 ABG Oxyhemoglobin 94.0 (94-98) 08/27/20 04:10 ABG Carboxyhemoglobin 1.4 % (0.0-5.0) 08/29/20 11:10 ABG Methemoglobin 0.6 % (0.0-1.5) 08/29/20 11:10 ABG Sodium 136.3 mmol/L (136.0-145.0) 08/27/20 04:10 ABG Potassium 3.8 mmol/L (3.40-4.50) 08/27/20 04:10 ABG Chloride 103.0 mmol/L (98-107) 08/27/20 04:10 ABG Glucose 117 mg/dL (65-95) H 08/27/20 04:10 Oxyhemoglobin 94.3 % (95.0-99.0) L 08/29/20 11:10 Carboxyhemoglobin 0.8 (0.5-1.5) 08/27/20 04:10 FiO2 35 % 08/29/20 11:10 FiO2 % 40.0 08/27/20 04:10 Sodium 135 mmol/L (137-145) L 08/29/20 04:32 Potassium 3.9 mmol/L (3.6-5.0) 08/29/20 04:32 Chloride 96.0 mmol/L (98-107) L 08/29/20 04:32 Carbon Dioxide 25 mmol/L (22-30) 08/29/20 04:32 Anion Gap 18 mmol/L 08/29/20 04:32 BUN 67 mg/dL (7-17) H 08/29/20 04:32 Creatinine 3.8 mg/dL (0.6-1.2) H 08/29/20 04:32 Estimated GFR 12 ml/min 08/29/20 04:32 BUN/Creatinine Ratio 18 % 08/29/20 04:32 Glucose 200 mg/dL (65-100) H 08/29/20 04:32 POC Glucose 219 mg/dL (70-105) H 08/29/20 11:28 Lactic Acid 1.80 mmol/L (0.7-2.0) 08/25/20 12:45 Calcium 8.2 mg/dL (8.4-10.2) L 08/29/20 04:32 Phosphorus 4.40 mg/dL (2.5-4.5) 08/29/20 04:32 Total Bilirubin < 0.20 mg/dL (0.1-1.2) 08/28/20 04:19 AST 37 units/L (5-40) 08/28/20 04:19 ALT 27 units/L (7-56) 08/28/20 04:19 Alkaline Phosphatase 84 units/L (35-129) 08/28/20 04:19 Troponin T 0.057 ng/mL (0.00-0.029) H 08/25/20 11:23 C-Reactive Protein 7.80 mg/dL (0.00-1.30) H 08/26/20 18:50 Total Protein 4.8 g/dL (6.3-8.2) L 08/28/20 04:19 Albumin 2.4 g/dL (3.9-5) L 08/28/20 04:19 Albumin/Globulin Ratio 1.0 % 08/28/20 04:19 Triglycerides 111 mg/dL (2-149) 08/29/20 04:32 Cholesterol 158 mg/dL (50-199) 08/25/20 11:23 LDL Cholesterol Direct 101 mg/dL (50-130) 08/25/20 11:23 HDL Cholesterol 50 mg/dL (40-59) 08/25/20 11:23 Cholesterol/HDL Ratio 3.16 % 08/25/20 11:23 Procalcitonin 0.41 ng/mL (<0.15) 08/26/20 18:50 Arterial Blood Glucose 117 mg/dL (65-95) H 08/27/20 04:10 Arterial Blood Ionized Calcium 4.4 mg/dL (4.6-5.3) L 08/27/20 04:10 Urine Color Yellow (Yellow) 08/25/20 11:17 Urine Turbidity Cloudy (Clear) 08/25/20 11:17 Urine pH 7.0 (5.0-7.0) 08/25/20 11:17 Ur Specific [place] 1.012 (1.003-1.030) 08/25/20 11:17 Urine Protein >500 mg/dL (Negative) 08/25/20 11:17 Urine Glucose (UA) >=500 mg/dL (Negative) 08/25/20 11:17 Urine Ketones Neg mg/dL (Negative) 08/25/20 11:17 Urine Blood Sm (Negative) 08/25/20 11:17 Urine Nitrite Neg (Negative) 08/25/20 11:17 Urine Bilirubin Neg (Negative) 08/25/20 11:17 Urine Urobilinogen < 2.0 mg/dL (<2.0) 08/25/20 11:17 Ur Leukocyte Esterase Neg (Negative) 08/25/20 11:17 Urine WBC (Auto) 31.0 /HPF (0.0-6.0) H 08/25/20 11:17 Urine RBC (Auto) 28.0 /HPF (0.0-6.0) 08/25/20 11:17 U Epithel Cells (Auto) 5.0 /HPF (0-13.0) 08/25/20 11:17 Urine Bacteria (Auto) 1+ /HPF (Negative) 08/25/20 11:17 Urine WBC Clumps Few /HPF 08/25/20 11:17 Ur Renal Epithelial Cell 4 /LPF 08/25/20 11:17 Hyaline Casts 28 /LPF 08/25/20 11:17 Urine Creatinine 67.4 mg/dL (0.1-20.0) H 08/26/20 17:00 Urine Sodium 12 mmol/L 08/26/20 17:00 Coronavirus (PCR) Negative (Negative) 08/26/20 Unknown Microbiology: Microbiology 08/25/20 11:23 Peripheral/Venous Blood Culture - Preliminary NO GROWTH AFTER 4 DAYS 08/25/20 11:23 Peripheral/Venous Blood Culture - Preliminary NO GROWTH AFTER 4 DAYS Foreman/IV: Voiding Method Indwelling Catheter Active Medications - Current Medications Current Medications: Generic Name Dose Route Start Last Admin Trade Name Freq PRN Reason Stop Dose Admin Albuterol 2.5 mg 08/25/20 14:55 Albuterol 2.5 Mg/3 Ml Nebu IH Q3HRT PRN Shortness Of Breath Amlodipine Besylate 5 mg 08/28/20 10:00 08/29/20 09:14 Amlodipine 5 Mg Tab PO 5 mg QDAY TERA Administration Lipase/Protease/Amylase 1 each 08/26/20 12:15 Lipase 10,500/Protease 25,000/Amylase 43,750 (Units) Dr Gu FEEDTUBE PRN PRN For Clogged Feeding Tube Aspirin 81 mg 08/27/20 10:00 08/29/20 09:13 Aspirin 81 Mg Tab Chew PO 81 mg QDAY TERA Administration Atorvastatin Calcium 40 mg 08/26/20 22:00 08/28/20 21:23 Atorvastatin 40 Mg Tab PO 40 mg QHS TERA Administration Azithromycin 250 mg 08/28/20 10:00 08/29/20 09:14 Azithromycin 250 Mg Tab PO 08/31/20 10:01 250 mg QDAY TERA Administration Protocol Dextrose 50 ml 08/26/20 19:18 Dextrose 50% In Water (25gm) 50 Ml Syringe IV Q30MIN PRN Hypoglycemia Protocol Famotidine 20 mg 08/28/20 10:00 08/29/20 09:14 Famotidine 20 Mg Tab PO 20 mg DAILY TERA Administration Fentanyl 50 mcg 08/26/20 17:11 Fentanyl 100 Mcg/2 Ml Inj IV Q10MIN PRN ANALGESIA Heparin Sodium (Porcine) 5,000 unit 08/26/20 22:00 08/29/20 09:16 Heparin 5,000 Unit/1 Ml Vial SUB-Q 5,000 unit Q12HR TERA Administration Hydralazine HCl 10 mg 08/26/20 01:20 08/29/20 04:03 Hydralazine 20 Mg/1 Ml Inj IV 10 mg Q4HR PRN Administration Blood Pressure Hydralazine HCl 25 mg 08/29/20 15:00 08/29/20 14:15 Hydralazine 25 Mg Tab PO 25 mg Q8HR TERA Administration Hydrophilic Ointment 1 applic 08/25/20 11:07 08/25/20 11:57 Lip Therapy Vaseline TP 1 applic Q2HR PRN Administration Dry Lips Levetiracetam 500 mg/ Dextrose 105 mls @ 400 mls/hr 08/26/20 10:00 08/29/20 09:18 IV 400 mls/hr Q12HR TERA Administration Propofol 1,000 mg in 100 mls @ 2.838 mls/hr 08/25/20 20:48 08/28/20 07:45 Diprivan 10 Mg/Ml IV Infused TITR TERA Titration Protocol 5 MCG/KG/MIN Ceftriaxone Sodium 2 gm in 100 mls @ 200 mls/hr 08/26/20 11:00 08/29/20 11:35 Rocephin/Ns 2 Gm/100 Ml IV 08/30/20 11:29 200 mls/hr Q24H TERA Administration Protocol Fentanyl Citrate 2,000 mcg in 100 mls @ 4.605 mls/hr 08/26/20 18:00 08/28/20 19:00 Fentanyl Drip Premix IV 0 mcg/kg/hr TITR TERA 0 mls/hr Titration Protocol 1 MCG/KG/HR Insulin Glargine 10 units 08/29/20 22:00 Insulin Glargine 100 Units/Ml SUB-Q QHS TERA Insulin Human Lispro 0 unit 08/27/20 12:00 08/29/20 11:47 Insulin Lispro 100 Unit/Ml SUB-Q 3 unit Q6HR TERA Administration Protocol Lorazepam 1 mg 08/29/20 11:36 08/29/20 11:47 Lorazepam 2 Mg/Ml Vial IV 08/29/20 23:59 1 mg ONCE NR Administration Metoprolol Tartrate 12.5 mg 08/29/20 22:00 Metoprolol Tartrate 25 Mg Tab PO BID TERA Multi-Ingred Cream/Lotion/Oil/Oint 1 applic 08/25/20 11:07 Mineral Oil/Petrolatum, White Ophth Oint 3.5 Gm OU Q4HR PRN Dry Eye(s) Senna/Docusate Sodium 1 tab 08/25/20 22:00 08/29/20 09:13 Sennosides/Docusate Sodium 8.6/50 Mg Tab FEEDTUBE 1 tab BID TERA Administration Simple Syrup 15 ml 08/26/20 12:15 Simple Syrup 15 Ml FEEDTUBE PRN PRN Hypoglycemia Simple Syrup 30 ml 08/26/20 12:15 Simple Syrup 15 Ml FEEDTUBE PRN PRN Hypoglycemia Sodium Bicarbonate 325 mg 08/26/20 12:15 Sodium Bicarbonate 325 Mg Tab FEEDTUBE PRN PRN For Clogged Feeding Tube Sodium Chloride 10 ml 08/25/20 22:00 08/29/20 09:15 Sodium Chloride 0.9% 10 Ml Flush Syringe IV 10 ml BID TERA Administration Sodium Chloride 10 ml 08/25/20 14:55 08/29/20 04:05 Sodium Chloride 0.9% 10 Ml Flush Syringe IV 10 ml PRN PRN Administration LINE FLUSH Nutrition/Malnutrition Assess - Dietary Evaluation Nutrition/Malnutrition Findings: Nutrition Notes Start: 08/26/20 10:21 Freq: Status: Active Protocol: Document 08/28/20 11:02 (Rec: 08/28/20 11:06 [email or web address]) Nutrition Notes Initial or Follow up Reassessment Current Diagnosis Acute Kidney Injury,CKD(stage I-IV),Diabetes,Hypertension, Heart Failure,Respiratory Failure Other Pertinent Diagnosis cardiac arrest, acute encephalopathy, pneu, anoxIC brain injury, GERD Current Diet Nepro 1.8 at 30 ml/hr Labs/Tests Na 135 BUN 64 Cr 3.8 Pertinent Medications Propofol at 17.028 ml/hr ( 449kcal) Lasix Height 5 ft 5 in Weight 92.1 kg [place] Body Weight (kg) 56.81 BMI 33.7 Weight Status Obese Subjective/Other Information FU for TF tolerance and propofol. Pt still receiving substantial amount of calories from propofol. Per RN, pt tolerating TF. Percent of energy/protein needs met: 100%/58% Burn Absent Trauma Absent Current % PO Negligible Minimum of two criteria No physical signs of malnutrition #1 Nutrition Diagnosis Inadequate oral intake Diagnosis Progress(for reassessment Continues documentation) Is patient on ventilator? Yes Is Patient Ambulatory and/or Out of Bed No REE-([facility]-confined to bed) 1700.436 Kcal/Kg value to use for calculation 14 Approximate Energy Requirements Using 1289 kcal/Kg Calculation Used for Recommendations Kcal/kg Additional Notes protein needs: >114g (>2 g/ kgIBW) fluid needs 1500 - 1900 ml or per MD order Nutrition Intervention Change Diet Order: Continue TF Nutrition Support: Recommend Nepro at 30 ml/hr with a free water flush of 130 ml q4h Kcal 1,296 Protein (gm) 58 Fluid (mL) 523 Goal #1 Meet at least 75% of kcal and protein needs as best as possible Anticipated Discharge Needs: unable to determine at this time Follow-Up By: 08/30/20 Additional Comments FU for TF tolernace and propofol rate
--- NOTE | 2020-08-29 18:47 | Magnetic Resonance Report ---
MR brain wo con INDICATION / CLINICAL INFORMATION: 75 years Female; encephalopathy. TECHNIQUE: Multiplanar, multisequence MR images of the brain were obtained. COMPARISON: CT-08/25/2020 FINDINGS: BRAIN / INTRACRANIAL CONTENTS: Diffusion imaging demonstrates increased signal in a symmetric pattern in the parietal-occipital regions. These findings are positive on the ADC map, suggesting the possib ility of acute/early subacute ischemia. Subtle increased signal is also seen in the corpus striatal r egions, as well as the thalami bilaterally. FLAIR imaging demonstrates significant increased signal in the corpus striatal regions and thalami, a nd mild increased signal in the parietal-occipital cortical areas. No significant white matter involv ement. No signs of significant mass effect. Otherwise, no acute hemorrhage, mass effect, midline shift, hydrocephalus, or acute, large territori al infarct. No chronic infarct or atrophy. No significant white matter abnormality. CRANIOCERVICAL JUNCTION: No significant abnormality. VASCULAR FLOW-VOIDS: No significant abnormality. ORBITS: No significant abnormality of visualized orbits. SINUSES / MASTOIDS: Patient appears be intubated. There is partial opacification of the paranasal sinuses with multiple air-fluid levels. Mild to moder ate mucosal thickening seen in the mastoids. Secretions are layering in the nasopharynx. ADDITIONAL FINDINGS: Small, simple cyst is seen adjacent to the masseter muscle on the left-of uncert ain clinical significance. Small amount of subcutaneous fluid is seen superficial to the posterior parietal bone the left. Pleas e clinically correlate. IMPRESSION: 1. Abnormal diffusion and FLAIR signal abnormality as described above. Differential diagnosis might i nclude hypoxic-ischemic brain injury, hypoglycemic encephalopathy, and perhaps Creutzfeldt-Cornelius dise ase. Please clinically correlate. 2. Otherwise, no focal mass, hemorrhage, or hydrocephalus seen. Signer Name: Russ Butcher MD, III Signed: 08/29/2020 6:43 PM Workstation Name: [id number]
[2020-08-29] MEDS: METOPROLOL TARTRATE 25 MG TAB PO SCH (21:34)
[2020-08-29] MEDS ORDERED: INSULIN GLARGINE 100 UNITS/ML SUB-Q SCH (22:00)
[2020-08-30] MEDS: INSULIN LISPRO 100 UNIT/ML SUB-Q SCH ×4 (00:13→17:57)
--- NOTE | 2020-08-30 02:26 | XRay Report ---
CHEST 1 VIEW INDICATION / CLINICAL INFORMATION: follow up respiratory failure. FINDINGS: SUPPORT DEVICES: No significant change in position. HEART / MEDIASTINUM: The cardiomediastinal silhouette has not significantly changed in the interim. LUNGS / PLEURA: Worsening bilateral pleural parenchymal opacities when compared to yesterday's exam. Signer Name: Luis Taylor MD Signed: 08/30/2020 2:22 AM Workstation Name: [id number]
[2020-08-30 04:51] LABS: Calcium 8.4 mg/dL (8.4-10.2)
[2020-08-30 05:33] LABS: ABG Base Excess 1.7 mmol/L (-2.0-3.0); ABG Methemoglobin 0.5 % (0.0-1.5); ABG Oxygen Saturation 97.6 % (95.0-99.0); ABG PCO2 39.4 mm Hg; ABG PH 7.437 pH Units (7.350-7.450)
[2020-08-30] MEDS: hydrALAZINE 25 MG TAB PO SCH ×3 (06:03→21:43)
--- NOTE | 2020-08-30 07:27 | Progress Note ---
Assessment and Plan 75 yo female with chf, htn, dm, ckdx, neuropathy, who presents with an out of hospital cardiac arrest with ROSC requiring at least 15 minutes of ACLS. Patient is noted to be encephalopathic and noted with quadriplegia. Per RN, no clinical seizure activity is noted. Per daughter, the patient has always had problems with her legs. Patient has not received any sedation for >48 hours. 1. Hypoxic / Anoxic Encephalopathy - confirmed on MR Brain w/o contrast; EEG results pending. 2. Seizure - pending EEG results. 3. Metabolic Encephalopathy - in the setting acidosis, respiratory failure, acute on chronic renal failure w/ uremia. 4. Out of Hospital Cardiac Arrest - cardiac prognosis per Cardiology. 5. HTN - SBP 160-200 mmHg / DBP 80-100 mmHg x 72 hours. 6. DM - maintain euglycemia. 7. Concern for a poor prognosis is raised based on clinical history / exam. Awaiting MRI / EEG findings. Judson Martino MD Neurology Subjective Date of service: 08/30/20 Principal diagnosis: Ac. hypoxemic resp failure; Cardiac arrest; AMS; AE-CHF; Hyperkalemia; FLORIDALMA Interval history: HPI - 75 yo female with chf, htn, dm, ckdx, neuropathy, who presents with an out of hospital cardiac arrest with ROSC requiring at least 15 minutes of ACLS. Patient is noted to be encephalopathic and noted with quadriplegia. Per RN, no clinical seizure activity is noted. Per daughter, the patient has always had problems with her legs. Patient has not received any sedation for >48 hours. Objective - Vital Sign Vital Signs - 12hr 08/29/20 08/29/20 08/29/20 19:31 20:00 20:04 Temperature 98.9 F Pulse Rate 70 80 67 Pulse Rate [ 74 From Monitor] Respiratory 18 18 18 Rate Respiratory Rate [Abdomen] Blood Pressure 134/61 135/67 113/55 O2 Sat by Pulse 99 100 100 Oximetry 08/29/20 08/29/20 08/29/20 20:25 20:30 21:01 Temperature Pulse Rate 64 65 88 Pulse Rate [ From Monitor] Respiratory 19 25 H Rate Respiratory Rate [Abdomen] Blood Pressure 135/67 122/54 216/104 O2 Sat by Pulse 100 100 100 Oximetry 08/29/20 08/29/20 08/29/20 21:31 21:33 21:34 Temperature Pulse Rate 83 84 84 Pulse Rate [ From Monitor] Respiratory 21 Rate Respiratory Rate [Abdomen] Blood Pressure 176/71 176/71 176/71 O2 Sat by Pulse 98 Oximetry 08/29/20 08/29/20 08/29/20 22:00 22:01 22:30 Temperature Pulse Rate 85 82 Pulse Rate [ From Monitor] Respiratory 21 20 Rate Respiratory 23 Rate [Abdomen] Blood Pressure 163/68 144/62 O2 Sat by Pulse 99 99 Oximetry 08/29/20 08/29/20 08/29/20 23:01 23:31 23:57 Temperature 98.0 F Pulse Rate 82 79 Pulse Rate [ From Monitor] Respiratory 22 21 Rate Respiratory Rate [Abdomen] Blood Pressure 178/70 185/74 O2 Sat by Pulse 99 99 Oximetry 08/30/20 08/30/20 08/30/20 00:00 00:01 00:31 Temperature Pulse Rate 75 77 81 Pulse Rate [ 74 From Monitor] Respiratory 25 H 19 21 Rate Respiratory Rate [Abdomen] Blood Pressure 173/72 178/75 O2 Sat by Pulse 98 99 99 Oximetry 08/30/20 08/30/20 08/30/20 00:43 01:00 01:31 Temperature Pulse Rate 79 82 86 Pulse Rate [ From Monitor] Respiratory 22 21 Rate Respiratory Rate [Abdomen] Blood Pressure 178/75 178/75 159/83 O2 Sat by Pulse 99 99 99 Oximetry 08/30/20 08/30/20 08/30/20 02:01 02:31 03:01 Temperature Pulse Rate 87 79 88 Pulse Rate [ From Monitor] Respiratory 22 20 21 Rate Respiratory Rate [Abdomen] Blood Pressure 157/73 162/64 171/61 O2 Sat by Pulse 100 99 98 Oximetry 08/30/20 08/30/20 08/30/20 03:30 03:31 04:00 Temperature 99.0 F Pulse Rate 86 80 Pulse Rate [ 74 From Monitor] Respiratory 22 24 Rate Respiratory Rate [Abdomen] Blood Pressure 160/64 147/66 O2 Sat by Pulse 99 99 Oximetry 08/30/20 08/30/20 08/30/20 04:17 04:31 05:01 Temperature Pulse Rate 87 84 80 Pulse Rate [ From Monitor] Respiratory 22 20 Rate Respiratory Rate [Abdomen] Blood Pressure 147/66 158/64 162/64 O2 Sat by Pulse 99 99 99 Oximetry 08/30/20 08/30/20 08/30/20 05:31 06:01 06:03 Temperature Pulse Rate 84 83 83 Pulse Rate [ From Monitor] Respiratory 23 22 Rate Respiratory Rate [Abdomen] Blood Pressure 133/64 147/72 147/72 O2 Sat by Pulse 98 98 Oximetry 08/30/20 08/30/20 08/30/20 06:31 07:00 07:01 Temperature 99.4 F Pulse Rate 83 85 Pulse Rate [ From Monitor] Respiratory 21 25 H Rate Respiratory Rate [Abdomen] Blood Pressure 167/65 177/63 O2 Sat by Pulse 97 88 Oximetry - Laboratory Findings CBC and BMP: 08/29/20 04:32 08/30/20 04:14 Abnormal Lab Findings: Abnormal Labs 08/25/20 08/25/20 08/25/20 11:14 11:17 11:23 WBC 11.5 H RBC 3.22 L Hgb 8.6 L Hct 27.6 L MCH 27 L RDW 15.6 H Lymph % (Auto) Lymph # (Auto) Seg Neutrophils % Seg Neuts % (Manual) 89.0 H Lymphocytes % (Manual) 5.0 L Seg Neutrophils # Seg Neutrophils # Man 10.2 H Lymphocytes # (Manual) 0.6 L D-Dimer ABG pH 7.290 L POC ABG pO2 161.1 H ABG pO2 ABG HCO3 ABG Hemoglobin 8.9 L ABG Oxyhemoglobin 98.6 H ABG Sodium 135.2 L ABG Potassium 5.9 H ABG Glucose 210 H Oxyhemoglobin Carboxyhemoglobin 0.4 L Sodium Potassium Chloride Carbon Dioxide BUN Creatinine Glucose POC Glucose Lactic Acid Calcium AST ALT Troponin T C-Reactive Protein Total Protein Albumin Arterial Blood Glucose 210 H Arterial Blood Ionized Calcium 4.4 L Urine WBC (Auto) 31.0 H Urine Creatinine 08/25/20 08/25/20 08/25/20 11:23 11:23 11:23 WBC RBC Hgb Hct MCH RDW Lymph % (Auto) Lymph # (Auto) Seg Neutrophils % Seg Neuts % (Manual) Lymphocytes % (Manual) Seg Neutrophils # Seg Neutrophils # Man Lymphocytes # (Manual) D-Dimer > 75657 H ABG pH POC ABG pO2 ABG pO2 ABG HCO3 ABG Hemoglobin ABG Oxyhemoglobin ABG Sodium ABG Potassium ABG Glucose Oxyhemoglobin Carboxyhemoglobin Sodium Potassium 6.4 H* Chloride Carbon Dioxide 21 L BUN 52 H Creatinine 3.5 H Glucose 194 H POC Glucose Lactic Acid 3.30 H* Calcium 8.1 L AST 103 H ALT 77 H Troponin T 0.057 H C-Reactive Protein Total Protein 5.8 L Albumin 3.4 L Arterial Blood Glucose Arterial Blood Ionized Calcium Urine WBC (Auto) Urine Creatinine 08/25/20 08/25/20 08/25/20 13:51 15:45 20:34 WBC RBC Hgb Hct MCH RDW Lymph % (Auto) Lymph # (Auto) Seg Neutrophils % Seg Neuts % (Manual) Lymphocytes % (Manual) Seg Neutrophils # Seg Neutrophils # Man Lymphocytes # (Manual) D-Dimer ABG pH POC ABG pO2 66.3 L ABG pO2 ABG HCO3 ABG Hemoglobin 9.1 L ABG Oxyhemoglobin 92.5 L ABG Sodium ABG Potassium ABG Glucose 225 H Oxyhemoglobin Carboxyhemoglobin Sodium Potassium Chloride Carbon Dioxide BUN Creatinine Glucose POC Glucose 188 H 233 H Lactic Acid Calcium AST ALT Troponin T C-Reactive Protein Total Protein Albumin Arterial Blood Glucose 225 H Arterial Blood Ionized Calcium 4.4 L Urine WBC (Auto) Urine Creatinine 08/26/20 08/26/20 08/26/20 04:14 05:04 05:04 WBC 17.9 H RBC 3.05 L Hgb 8.3 L Hct 25.6 L MCH 27 L RDW 15.3 H Lymph % (Auto) Lymph # (Auto) Seg Neutrophils % Seg Neuts % (Manual) 96.0 H Lymphocytes % (Manual) 1.0 L Seg Neutrophils # Seg Neutrophils # Man 17.2 H Lymphocytes # (Manual) 0.2 L D-Dimer ABG pH POC ABG pO2 131.3 H ABG pO2 ABG HCO3 ABG Hemoglobin 8.6 L ABG Oxyhemoglobin 98.2 H ABG Sodium ABG Potassium ABG Glucose 182 H Oxyhemoglobin Carboxyhemoglobin 0.2 L Sodium Potassium Chloride Carbon Dioxide BUN 56 H Creatinine 3.4 H Glucose 187 H POC Glucose Lactic Acid Calcium 8.3 L AST 54 H ALT 57 H Troponin T C-Reactive Protein Total Protein 5.4 L Albumin 2.9 L Arterial Blood Glucose 182 H Arterial Blood Ionized Calcium 4.3 L Urine WBC (Auto) Urine Creatinine 08/26/20 08/26/20 08/26/20 05:40 07:36 11:54 WBC RBC Hgb Hct MCH RDW Lymph % (Auto) Lymph # (Auto) Seg Neutrophils % Seg Neuts % (Manual) Lymphocytes % (Manual) Seg Neutrophils # Seg Neutrophils # Man Lymphocytes # (Manual) D-Dimer ABG pH POC ABG pO2 ABG pO2 ABG HCO3 ABG Hemoglobin ABG Oxyhemoglobin ABG Sodium ABG Potassium ABG Glucose Oxyhemoglobin Carboxyhemoglobin Sodium Potassium Chloride Carbon Dioxide BUN Creatinine Glucose POC Glucose 179 H 171 H 190 H Lactic Acid Calcium AST ALT Troponin T C-Reactive Protein Total Protein Albumin Arterial Blood Glucose Arterial Blood Ionized Calcium Urine WBC (Auto) Urine Creatinine 08/26/20 08/26/20 08/26/20 15:14 17:00 18:50 WBC RBC Hgb Hct MCH RDW Lymph % (Auto) Lymph # (Auto) Seg Neutrophils % Seg Neuts % (Manual) Lymphocytes % (Manual) Seg Neutrophils # Seg Neutrophils # Man Lymphocytes # (Manual) D-Dimer ABG pH POC ABG pO2 ABG pO2 ABG HCO3 ABG Hemoglobin ABG Oxyhemoglobin ABG Sodium ABG Potassium ABG Glucose Oxyhemoglobin Carboxyhemoglobin Sodium Potassium Chloride Carbon Dioxide BUN Creatinine Glucose POC Glucose 158 H Lactic Acid Calcium AST ALT Troponin T C-Reactive Protein 7.80 H Total Protein Albumin Arterial Blood Glucose Arterial Blood Ionized Calcium Urine WBC (Auto) Urine Creatinine 67.4 H 08/26/20 08/27/20 08/27/20 22:01 04:10 05:12 WBC RBC Hgb Hct MCH RDW Lymph % (Auto) Lymph # (Auto) Seg Neutrophils % Seg Neuts % (Manual) Lymphocytes % (Manual) Seg Neutrophils # Seg Neutrophils # Man Lymphocytes # (Manual) D-Dimer ABG pH 7.454 H POC ABG pO2 74.9 L ABG pO2 ABG HCO3 ABG Hemoglobin 7.9 L ABG Oxyhemoglobin ABG Sodium ABG Potassium ABG Glucose 117 H Oxyhemoglobin Carboxyhemoglobin Sodium Potassium Chloride Carbon Dioxide BUN Creatinine Glucose POC Glucose 122 H 117 H Lactic Acid Calcium AST ALT Troponin T C-Reactive Protein Total Protein Albumin Arterial Blood Glucose 117 H Arterial Blood Ionized Calcium 4.4 L Urine WBC (Auto) Urine Creatinine 08/27/20 08/27/20 08/27/20 07:24 07:24 11:08 WBC 12.7 H RBC 2.92 L Hgb 8.1 L Hct 24.4 L MCH RDW 15.4 H Lymph % (Auto) 5.9 L Lymph # (Auto) 0.8 L Seg Neutrophils % 86.9 H Seg Neuts % (Manual) Lymphocytes % (Manual) Seg Neutrophils # 11.0 H Seg Neutrophils # Man Lymphocytes # (Manual) D-Dimer ABG pH POC ABG pO2 ABG pO2 ABG HCO3 ABG Hemoglobin ABG Oxyhemoglobin ABG Sodium ABG Potassium ABG Glucose Oxyhemoglobin Carboxyhemoglobin Sodium Potassium Chloride Carbon Dioxide BUN 60 H Creatinine 3.6 H Glucose 135 H POC Glucose 139 H Lactic Acid Calcium AST ALT Troponin T C-Reactive Protein Total Protein 5.3 L Albumin 2.6 L Arterial Blood Glucose Arterial Blood Ionized Calcium Urine WBC (Auto) Urine Creatinine 08/27/20 08/27/20 08/27/20 11:19 17:31 23:25 WBC RBC Hgb Hct MCH RDW Lymph % (Auto) Lymph # (Auto) Seg Neutrophils % Seg Neuts % (Manual) Lymphocytes % (Manual) Seg Neutrophils # Seg Neutrophils # Man Lymphocytes # (Manual) D-Dimer ABG pH POC ABG pO2 ABG pO2 ABG HCO3 ABG Hemoglobin ABG Oxyhemoglobin ABG Sodium ABG Potassium ABG Glucose Oxyhemoglobin Carboxyhemoglobin Sodium Potassium Chloride Carbon Dioxide BUN Creatinine Glucose POC Glucose 143 H 140 H 123 H Lactic Acid Calcium AST ALT Troponin T C-Reactive Protein Total Protein Albumin Arterial Blood Glucose Arterial Blood Ionized Calcium Urine WBC (Auto) Urine Creatinine 08/28/20 08/28/20 08/28/20 03:50 04:19 04:19 WBC RBC 2.80 L Hgb 7.8 L Hct 23.6 L MCH RDW 15.8 H Lymph % (Auto) Lymph # (Auto) Seg Neutrophils % Seg Neuts % (Manual) Lymphocytes % (Manual) Seg Neutrophils # Seg Neutrophils # Man Lymphocytes # (Manual) D-Dimer ABG pH 7.329 L POC ABG pO2 ABG pO2 76.7 L ABG HCO3 27.0 H ABG Hemoglobin 7.5 L ABG Oxyhemoglobin ABG Sodium ABG Potassium ABG Glucose Oxyhemoglobin 93.6 L Carboxyhemoglobin Sodium 135 L Potassium Chloride Carbon Dioxide BUN 64 H Creatinine 3.8 H Glucose 143 H POC Glucose Lactic Acid Calcium 8.0 L AST ALT Troponin T C-Reactive Protein Total Protein 4.8 L Albumin 2.4 L Arterial Blood Glucose Arterial Blood Ionized Calcium Urine WBC (Auto) Urine Creatinine 08/28/20 08/28/20 08/28/20 05:35 11:22 17:18 WBC RBC Hgb Hct MCH RDW Lymph % (Auto) Lymph # (Auto) Seg Neutrophils % Seg Neuts % (Manual) Lymphocytes % (Manual) Seg Neutrophils # Seg Neutrophils # Man Lymphocytes # (Manual) D-Dimer ABG pH POC ABG pO2 ABG pO2 ABG HCO3 ABG Hemoglobin ABG Oxyhemoglobin ABG Sodium ABG Potassium ABG Glucose Oxyhemoglobin Carboxyhemoglobin Sodium Potassium Chloride Carbon Dioxide BUN Creatinine Glucose POC Glucose 147 H 182 H 216 H Lactic Acid Calcium AST ALT Troponin T C-Reactive Protein Total Protein Albumin Arterial Blood Glucose Arterial Blood Ionized Calcium Urine WBC (Auto) Urine Creatinine 08/28/20 08/28/20 08/29/20 21:04 23:20 04:32 WBC RBC Hgb Hct MCH RDW Lymph % (Auto) Lymph # (Auto) Seg Neutrophils % Seg Neuts % (Manual) Lymphocytes % (Manual) Seg Neutrophils # Seg Neutrophils # Man Lymphocytes # (Manual) D-Dimer ABG pH POC ABG pO2 ABG pO2 ABG HCO3 ABG Hemoglobin ABG Oxyhemoglobin ABG Sodium ABG Potassium ABG Glucose Oxyhemoglobin Carboxyhemoglobin Sodium 135 L Potassium Chloride 96.0 L Carbon Dioxide BUN 67 H Creatinine 3.8 H Glucose 200 H POC Glucose 204 H 242 H Lactic Acid Calcium 8.2 L AST ALT Troponin T C-Reactive Protein Total Protein Albumin Arterial Blood Glucose Arterial Blood Ionized Calcium Urine WBC (Auto) Urine Creatinine 08/29/20 08/29/20 08/29/20 04:32 04:50 04:59 WBC RBC 3.25 L Hgb 9.0 L Hct 27.0 L MCH RDW 16.1 H Lymph % (Auto) Lymph # (Auto) Seg Neutrophils % Seg Neuts % (Manual) Lymphocytes % (Manual) Seg Neutrophils # Seg Neutrophils # Man Lymphocytes # (Manual) D-Dimer ABG pH POC ABG pO2 ABG pO2 ABG HCO3 ABG Hemoglobin 8.8 L ABG Oxyhemoglobin ABG Sodium ABG Potassium ABG Glucose Oxyhemoglobin Carboxyhemoglobin Sodium Potassium Chloride Carbon Dioxide BUN Creatinine Glucose POC Glucose 201 H Lactic Acid Calcium AST ALT Troponin T C-Reactive Protein Total Protein Albumin Arterial Blood Glucose Arterial Blood Ionized Calcium Urine WBC (Auto) Urine Creatinine 08/29/20 08/29/20 08/29/20 11:10 11:28 17:50 WBC RBC Hgb Hct MCH RDW Lymph % (Auto) Lymph # (Auto) Seg Neutrophils % Seg Neuts % (Manual) Lymphocytes % (Manual) Seg Neutrophils # Seg Neutrophils # Man Lymphocytes # (Manual) D-Dimer ABG pH POC ABG pO2 ABG pO2 78.7 L ABG HCO3 26.6 H ABG Hemoglobin 9.8 L ABG Oxyhemoglobin ABG Sodium ABG Potassium ABG Glucose Oxyhemoglobin 94.3 L Carboxyhemoglobin Sodium Potassium Chloride Carbon Dioxide BUN Creatinine Glucose POC Glucose 219 H 203 H Lactic Acid Calcium AST ALT Troponin T C-Reactive Protein Total Protein Albumin Arterial Blood Glucose Arterial Blood Ionized Calcium Urine WBC (Auto) Urine Creatinine 08/29/20 08/29/20 08/30/20 21:31 23:28 04:14 WBC RBC Hgb Hct MCH RDW Lymph % (Auto) Lymph # (Auto) Seg Neutrophils % Seg Neuts % (Manual) Lymphocytes % (Manual) Seg Neutrophils # Seg Neutrophils # Man Lymphocytes # (Manual) D-Dimer ABG pH POC ABG pO2 ABG pO2 ABG HCO3 ABG Hemoglobin ABG Oxyhemoglobin ABG Sodium ABG Potassium ABG Glucose Oxyhemoglobin Carboxyhemoglobin Sodium 132 L Potassium Chloride 94.8 L Carbon Dioxide BUN 68 H Creatinine 3.7 H Glucose 214 H POC Glucose 204 H 215 H Lactic Acid Calcium AST ALT Troponin T C-Reactive Protein Total Protein Albumin Arterial Blood Glucose Arterial Blood Ionized Calcium Urine WBC (Auto) Urine Creatinine 08/30/20 08/30/20 05:10 Unknown WBC RBC Hgb Hct MCH RDW Lymph % (Auto) Lymph # (Auto) Seg Neutrophils % Seg Neuts % (Manual) Lymphocytes % (Manual) Seg Neutrophils # Seg Neutrophils # Man Lymphocytes # (Manual) D-Dimer ABG pH POC ABG pO2 ABG pO2 99.0 H ABG HCO3 ABG Hemoglobin 9.8 L ABG Oxyhemoglobin ABG Sodium ABG Potassium ABG Glucose Oxyhemoglobin Carboxyhemoglobin Sodium Potassium Chloride Carbon Dioxide BUN Creatinine Glucose POC Glucose 210 H Lactic Acid Calcium AST ALT Troponin T C-Reactive Protein Total Protein Albumin Arterial Blood Glucose Arterial Blood Ionized Calcium Urine WBC (Auto) Urine Creatinine
[2020-08-30] MEDS ORDERED: LORazepam 2 MG/ML VIAL IV ONE (09:15)
[2020-08-30] MEDS: HEPARIN 5,000 UNIT/1 ML VIAL SUB-Q SCH ×2 (09:50→21:42)
[2020-08-30] MEDS: SENNOSIDES/DOCUSATE SODIUM 8.6/50 MG TAB FEEDTUBE SCH ×3 (09:50→21:44)
[2020-08-30] MEDS: FAMOTIDINE 20 MG TAB PO SCH (09:51)
[2020-08-30] MEDS: amLODIPine 5 MG TAB PO SCH (09:51)
[2020-08-30] MEDS: METOPROLOL TARTRATE 25 MG TAB PO SCH ×2 (09:51→21:43)
[2020-08-30] MEDS: levETIRAcetam 500 MG/5 ML ORAL LIQD PO SCH ×2 (09:51→21:44)
[2020-08-30] MEDS: ASPIRIN 81 MG TAB CHEW PO SCH (09:52)
[2020-08-30] MEDS: AZITHROMYCIN 250 MG TAB PO SCH (09:52)
--- NOTE | 2020-08-30 10:15 | Progress Note ---
Assessment and Plan S/p cardiac arrest with ROSC * Prevailing rhythm during arrest was asystole. Patient is currently off sedation and continues to be unresponsive. 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 EEG is pending. * Neurology recommending permissive hypertension x72 hours. Plan to optimize antihypertensive regimen tomorrow. Acute respiratory failure and suspected multifocal pneumonia * Currently intubated, management per primary team. Mild cardiomyopathy * Echocardiogram reviewed: LVEF is 40 to 45%. LV is normal size. LV SF is mildly decreased. Mild diastolic dysfunction. Right ventricle is mildly dilated. Moderate pulmonary hypertension RVSP 45 mmHg. * Continue GDMT: Aspirin 81, atorvastatin 40, metoprolol 2.5 mg IV every 6, no NITIN/ARB in setting of FLORIDALMA. Acute kidney injury in setting of chronic renal disease * No NITIN/ARB in setting of FLORIDALMA. Avoid nephrotoxic agents. Nephrology is following. Hypertension * Continue current antihypertensive regimen. Patient is currently at goal blood pressure per neurology recommendations. DVT prophylaxis * Heparin SQ Patient is currently stable cardiac status. Will follow This patient was seen in conjunction with Dr. Monge who agrees with assessment and plan of care - Patient Problems (1) Cardiac arrest Current Visit: Yes Status: Acute (2) Anoxic encephalopathy Current Visit: Yes Status: Acute (3) Acute respiratory failure Current Visit: Yes Status: Acute (4) Multifocal pneumonia Current Visit: Yes Status: Acute (5) Acute renal failure superimposed on chronic kidney disease Current Visit: Yes Status: Acute (6) Cardiomyopathy Current Visit: Yes Status: Chronic (7) Diabetes Current Visit: Yes Status: Chronic (8) Hypertension Current Visit: Yes Status: Chronic (9) DVT prophylaxis Current Visit: Yes Status: Acute (10) Anemia Current Visit: Yes Status: Chronic Qualifiers: Anemia type: unspecified type Qualified Code(s): D64.9 - Anemia, unspecified Subjective Date of service: 08/30/20 Principal diagnosis: Ac. hypoxemic resp failure; Cardiac arrest; AMS; AE-CHF; Hyperkalemia; FLORIDALMA Interval history: Patient is currently intubated, no sedation and unresponsive. Telemetry reviewed: Sinus rhythm 90. No events Objective Last Vital Signs Temp 99.4 F 08/30/20 07:00 Pulse 88 08/30/20 10:06 Resp 30 H 08/30/20 08:33 BP 174/76 08/30/20 10:06 Pulse Ox 97 08/30/20 10:06 - Physical Examination General: Other (Intubated unresponsive) HEENT: Positive: Normocephaly, Mucus Membranes Moist Neck: Positive: neck supple, trachea midline Cardiac: Positive: Reg Rate and Rhythm, S1/S2 Lungs: Positive: Ventilated Respirations Neuro: Positive: Other (Intubated unresponsive) Abdomen: Positive: Unremarkable Skin: Negative: Rash Musculoskeletal: other (Intubated unresponsive) Extremities: Present: upper extr. pulses, lower extr. pulses. Absent: edema - Labs and Meds Comprehensive Metabolic Panel 08/30/20 Range/Units 04:14 Sodium 132 L (137-145) mmol/L Potassium 3.8 (3.6-5.0) mmol/L Chloride 94.8 L (98-107) mmol/L Carbon Dioxide 25 (22-30) mmol/L BUN 68 H (7-17) mg/dL Creatinine 3.7 H (0.6-1.2) mg/dL Glucose 214 H (65-100) mg/dL Calcium 8.4 (8.4-10.2) mg/dL - Imaging and Cardiology EKG: report reviewed, image reviewed Echo: report reviewed (Echocardiogram reviewed: LVEF is 40 to 45%. LV is normal size. LV SF is mildly decreased. Mild diastolic dysfunction. Right ventricle is mildly dilated. Moderate pulmonary hypertension RVSP 45 mmHg. ) - Telemetry EKG Rhythm: Sinus Rhythm - EKG Sinus rhythms and dysrhythmias: sinus bradycardia - Allied health notes Allied health notes reviewed: nursing
[2020-08-30] MEDS: cefTRIAXone/NS 2 GM/100 ML 2 GM/100 ML BAG IV SCH (12:20)
--- NOTE | 2020-08-30 13:14 | Progress Note ---
Assessment and Plan 1. Acute kidney injury: Vasomotor FLORIDALMA superimposed on CKD stage 4 in the setting Cardiac arrest. Low FeNa. CT abdomen negative for hydro. Monitor renal function. Creatinine leveled off. Non-oliguric. Renal prognosis is guarded. Avoid nephrotoxic agents. Meds dosage based on GFR. Monitor for [employer] needs. No acute indication for [employer] today. D/w her daughter at the bedside along with . 2. FEN: Hyperkalemia, improved. Metabolic acidosis, improved. Monitor lytes. 3. Acute respiratory failure with hypoxia: 2/2 b/p pneumonia. Covid test negative. Intubated, on vent. Abx for CAP. Followed by Pulmonary. 4. S/p OOH Cardiac arrest: Monitor. Followed by Cards. 5. Diabetes mellitus type 2: Follow blood glucose. 6. Hypertension: Monitor BP. 7. Anemia, POA: Monitor. 8. 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 Subjective: Patient was seen and examined at the bedside. Daughter at the bedside. Examination: General appearance: well-developed, well-nourished, appears stated age, intubated, on vent HEENT: ATNC, pupils not reacting to light Neck: supple Respiratory: coarse breath sounds Cardiology: regular, S1S2, no murmur Gastrointestinal: soft, bowel sounds heard, not tender Integumentary: no rash, warm and dry Neurologic: not responding Ext: trace dependent edema : Christina catheter Subjective Date of service: 08/30/20 Principal diagnosis: Ac. hypoxemic resp failure; Cardiac arrest; AMS; AE-CHF; Hyperkalemia; FLORIDALMA Objective - Vital Signs Vital signs: Vital Signs - 12hr 08/30/20 08/30/20 08/30/20 01:31 02:01 02:31 Temperature Pulse Rate 86 87 79 Pulse Rate [ From Monitor] Respiratory 21 22 20 Rate Blood Pressure 159/83 157/73 162/64 O2 Sat by Pulse 99 100 99 Oximetry 08/30/20 08/30/20 08/30/20 03:01 03:30 03:31 Temperature 99.0 F Pulse Rate 88 86 Pulse Rate [ From Monitor] Respiratory 21 22 Rate Blood Pressure 171/61 160/64 O2 Sat by Pulse 98 99 Oximetry 08/30/20 08/30/20 08/30/20 04:00 04:17 04:31 Temperature Pulse Rate 80 87 84 Pulse Rate [ 74 From Monitor] Respiratory 24 22 Rate Blood Pressure 147/66 147/66 158/64 O2 Sat by Pulse 99 99 99 Oximetry 08/30/20 08/30/20 08/30/20 05:01 05:31 06:01 Temperature Pulse Rate 80 84 83 Pulse Rate [ From Monitor] Respiratory 20 23 22 Rate Blood Pressure 162/64 133/64 147/72 O2 Sat by Pulse 99 98 98 Oximetry 08/30/20 08/30/20 08/30/20 06:03 06:31 07:00 Temperature 99.4 F Pulse Rate 83 83 Pulse Rate [ From Monitor] Respiratory 21 Rate Blood Pressure 147/72 167/65 O2 Sat by Pulse 97 Oximetry 08/30/20 08/30/20 08/30/20 07:01 07:31 08:00 Temperature Pulse Rate 85 83 88 Pulse Rate [ From Monitor] Respiratory 25 H 22 Rate Blood Pressure 177/63 167/63 O2 Sat by Pulse 88 97 Oximetry 08/30/20 08/30/20 08/30/20 08:01 08:31 08:33 Temperature Pulse Rate 77 85 87 Pulse Rate [ From Monitor] Respiratory 19 22 30 H Rate Blood Pressure 121/49 169/66 169/66 O2 Sat by Pulse 96 94 98 Oximetry 08/30/20 08/30/20 08/30/20 09:01 09:30 09:51 Temperature Pulse Rate 89 90 89 Pulse Rate [ From Monitor] Respiratory 32 H 34 H Rate Blood Pressure 192/78 191/75 191/75 O2 Sat by Pulse 95 98 Oximetry 08/30/20 08/30/20 08/30/20 10:01 10:06 10:31 Temperature Pulse Rate 86 88 83 Pulse Rate [ From Monitor] Respiratory 35 H 24 Rate Blood Pressure 174/76 174/76 146/55 O2 Sat by Pulse 97 97 96 Oximetry 08/30/20 08/30/20 08/30/20 11:01 11:31 11:51 Temperature 98.8 F Pulse Rate 81 81 Pulse Rate [ From Monitor] Respiratory 27 H 26 H Rate Blood Pressure 168/63 172/65 O2 Sat by Pulse 97 97 Oximetry 08/30/20 12:16 Temperature Pulse Rate 97 H Pulse Rate [ From Monitor] Respiratory Rate Blood Pressure 177/70 O2 Sat by Pulse 98 Oximetry - Lab 08/29/20 04:32 08/30/20 04:14 Most recent lab results ABG pH 7.437 pH Units (7.350-7.450) 08/30/20 Unknown ABG pCO2 39.4 mm Hg 08/30/20 Unknown ABG pO2 99.0 mm Hg (80.0-90.0) H 08/30/20 Unknown ABG HCO3 26.0 mmol/L (20.0-26.0) 08/30/20 Unknown ABG O2 Saturation 97.6 % (95.0-99.0) 08/30/20 Unknown Calcium 8.4 mg/dL (8.4-10.2) 08/30/20 04:14 Phosphorus 4.40 mg/dL (2.5-4.5) 08/29/20 04:32 Urine Creatinine 67.4 mg/dL (0.1-20.0) H 08/26/20 17:00 Urine Sodium 12 mmol/L 08/26/20 17:00 Medications & Allergies - Medications Allergies/Adverse Reactions: Allergies No Known Allergies Allergy (Verified 07/31/18 07:06) Home Medications: Home Medications Medication Instructions Recorded Confirmed Last Taken Type Albuterol Mdi (or & Nicu Only) 2 puff IH QID PRN #1 inhalation 08/07/18 03/14/20 Unknown Rx [ProAir HFA Inhaler] Sucralfate [Carafate] 1 gm PO ACHS #30 tablet 08/07/18 03/14/20 03/13/20 Rx Insulin Regular, Human [HumuLIN R] 0 unit SQ AC #1 vial 08/11/18 03/14/20 Unknown Rx Labetalol HCl [Labetalol 300mg TAB] 300 mg PO BID #60 tablet 11/11/19 03/14/20 03/14/20 Rx Furosemide [Lasix TAB] 80 mg PO DAILY #14 tablet 03/27/20 Unknown Rx Insulin Glargine [Lantus VIAL] 15 units SUB-Q QAM #1 vial 03/27/20 Unknown Rx amLODIPine 10 mg PO QDAY #30 tablet 03/27/20 Unknown Rx Active Medications: Generic Name Dose Route Start Last Admin Trade Name Freq PRN Reason Stop Dose Admin Albuterol 2.5 mg 08/25/20 14:55 Albuterol 2.5 Mg/3 Ml Nebu IH Q3HRT PRN Shortness Of Breath Amlodipine Besylate 5 mg 08/28/20 10:00 08/30/20 09:51 Amlodipine 5 Mg Tab PO 5 mg QDAY TERA Administration Lipase/Protease/Amylase 1 each 08/26/20 12:15 Lipase 10,500/Protease 25,000/Amylase 43,750 (Units) Dr Gu FEEDTUBE PRN PRN For Clogged Feeding Tube Aspirin 81 mg 08/27/20 10:00 08/30/20 09:52 Aspirin 81 Mg Tab Chew PO 81 mg QDAY TERA Administration Atorvastatin Calcium 40 mg 08/26/20 22:00 08/29/20 21:33 Atorvastatin 40 Mg Tab PO 40 mg QHS TERA Administration Azithromycin 250 mg 08/28/20 10:00 08/30/20 09:52 Azithromycin 250 Mg Tab PO 08/31/20 10:01 250 mg QDAY TERA Administration Protocol Dextrose 50 ml 08/26/20 19:18 Dextrose 50% In Water (25gm) 50 Ml Syringe IV Q30MIN PRN Hypoglycemia Protocol Famotidine 20 mg 08/28/20 10:00 08/30/20 09:51 Famotidine 20 Mg Tab PO 20 mg DAILY TERA Administration Heparin Sodium (Porcine) 5,000 unit 08/26/20 22:00 08/30/20 09:50 Heparin 5,000 Unit/1 Ml Vial SUB-Q 5,000 unit Q12HR TERA Administration Hydralazine HCl 10 mg 08/26/20 01:20 08/29/20 04:03 Hydralazine 20 Mg/1 Ml Inj IV 10 mg Q4HR PRN Administration Blood Pressure Hydralazine HCl 25 mg 08/29/20 15:00 08/30/20 06:03 Hydralazine 25 Mg Tab PO 25 mg Q8HR TERA Administration Hydrophilic Ointment 1 applic 08/25/20 11:07 08/25/20 11:57 Lip Therapy Vaseline TP 1 applic Q2HR PRN Administration Dry Lips Insulin Glargine 15 units 08/30/20 22:00 Insulin Glargine 100 Units/Ml SUB-Q QHS [facility] Insulin Human Lispro 0 unit 08/27/20 12:00 08/30/20 12:19 Insulin Lispro 100 Unit/Ml SUB-Q 2 unit Q6HR TERA Administration Protocol Levetiracetam 500 mg 08/30/20 10:00 08/30/20 09:51 Levetiracetam 500 Mg/5 Ml Oral Liqd PO 500 mg BID TERA Administration Metoprolol Tartrate 12.5 mg 08/29/20 22:00 08/30/20 09:51 Metoprolol Tartrate 25 Mg Tab PO 12.5 mg BID TERA Administration Multi-Ingred Cream/Lotion/Oil/Oint 1 applic 08/25/20 11:07 Mineral Oil/Petrolatum, White Ophth Oint 3.5 Gm OU Q4HR PRN Dry Eye(s) Senna/Docusate Sodium 1 tab 08/25/20 22:00 08/30/20 09:51 Sennosides/Docusate Sodium 8.6/50 Mg Tab FEEDTUBE 1 tab BID TERA Administration Simple Syrup 15 ml 08/26/20 12:15 Simple Syrup 15 Ml FEEDTUBE PRN PRN Hypoglycemia Simple Syrup 30 ml 08/26/20 12:15 Simple Syrup 15 Ml FEEDTUBE PRN PRN Hypoglycemia Sodium Bicarbonate 325 mg 08/26/20 12:15 Sodium Bicarbonate 325 Mg Tab FEEDTUBE PRN PRN For Clogged Feeding Tube Sodium Chloride 10 ml 08/25/20 22:00 08/30/20 09:52 Sodium Chloride 0.9% 10 Ml Flush Syringe IV 10 ml BID TERA Administration Sodium Chloride 10 ml 08/25/20 14:55 08/29/20 04:05 Sodium Chloride 0.9% 10 Ml Flush Syringe IV 10 ml PRN PRN Administration LINE FLUSH
--- NOTE | 2020-08-30 13:33 | Progress Note ---
Assessment and Plan Acute hypoxemic respiratory failure Cardiac arrest with ROSC Acute encephalopathy Multifocal pneumonia Possible bilateral pulmonary edema Congestive heart failure with an acute exacerbation Anemia Hyperkalemia Lactic acidosis Acute kidney injury Elevated serum transaminases Non-ST elevation SD Oropharyngeal dysphagia - discussed prognosis details with her daughter today - family awaiting completion of neurology evaluation so they can make decisions on care plan going forwards - EEG ongoing currently - increased hydralazine to 50 mg p.o. q8h for better BP control - continue Daily SAT and SBT assessment as tolerated meantime - follow US chest +/- thoracentesis - she will likely need a tracheostomy tube if AMS is persistent - discontinue foreman catheter as OK with nephrology team - continue care as below otherwise; - continue to wean supplemental oxygen for target O2 sat's > 92% acutely - VAP bundle addressed - continue lung protective strategies - continue bronchodilators with pulmonary hygiene per RT - wean per pulmonary driven protocols otherwise - continue accuchecks with glycemic control per SSI (While critically ill target blood glucose of 140-180 mg/dL; avoid hypoglycemia) - sedation prn for target RASS -1 to -2 - avoid nephrotoxins, renally dose all medications - continue to avoid benzodiazepine's, reduce the possibility of delirium - complete AB's per ID rec's - prn analgesia per CPOT score - Maintenance of sleep-wake cycle, avoid delirium - enteral nutritional support at goal rate as tolerated - G.I. & VTE prophylaxis - PT/OT/ROM exercises - continue mobility protocols for pressure ulcer prophylaxis - Monitor hemodynamics closely - continue other care per attending / other consultants - discharge planning ongoing concurrently COVID SPECIFIC INTERVENTIONS - COVID-19 PCR negative .... Re-evaluate in am & prn CONDITION: CRITICAL PROGNOSIS: GUARDED CODE STATUS: FULL CODE The high probability of a clinically significant, sudden or life-threatening deterioration of the [respiratory, cardiovascular & neurologic] system(s) required my full and direct attention, intervention and personal management. The aggregate critical care time was [37] minutes without overlap. Time includes spent on; [x] Data Review and interpretation [x] Patient assessment and monitoring of vital signs [x] Documentation [x] Medication orders and management Subjective Date of service: 08/30/20 Principal diagnosis: Ac. hypoxemic resp failure; Cardiac arrest; AMS; AE-CHF; Hyperkalemia; FLORIDALMA Interval history: Patient is seen today for: Acute hypoxemic respiratory failure; Cardiac arrest with ROSC; Acute encephalopathy; Multifocal pneumonia; pulmonary edema; AE-CHF; Hyperkalemia; FLORIDALMA; NSTEMI Seen and examined at bedside; 24hour events reviewed; nursing and respiratory care staff consulted; no adverse overnight events reported to me; resting in bed; remains on MVS; US Chest pending; weaning tenuously but back on PSV with p- supp @ 18; her daughter is visiting; MRI is consistent with Anoxic injury Objective Vital Signs - 12hr 08/30/20 08/30/20 08/30/20 02:01 02:31 03:01 Temperature Pulse Rate 87 79 88 Pulse Rate [ From Monitor] Respiratory 22 20 21 Rate Blood Pressure 157/73 162/64 171/61 O2 Sat by Pulse 100 99 98 Oximetry 08/30/20 08/30/20 08/30/20 03:30 03:31 04:00 Temperature 99.0 F Pulse Rate 86 80 Pulse Rate [ 74 From Monitor] Respiratory 22 24 Rate Blood Pressure 160/64 147/66 O2 Sat by Pulse 99 99 Oximetry 08/30/20 08/30/20 08/30/20 04:17 04:31 05:01 Temperature Pulse Rate 87 84 80 Pulse Rate [ From Monitor] Respiratory 22 20 Rate Blood Pressure 147/66 158/64 162/64 O2 Sat by Pulse 99 99 99 Oximetry 08/30/20 08/30/20 08/30/20 05:31 06:01 06:03 Temperature Pulse Rate 84 83 83 Pulse Rate [ From Monitor] Respiratory 23 22 Rate Blood Pressure 133/64 147/72 147/72 O2 Sat by Pulse 98 98 Oximetry 08/30/20 08/30/20 08/30/20 06:31 07:00 07:01 Temperature 99.4 F Pulse Rate 83 85 Pulse Rate [ From Monitor] Respiratory 21 25 H Rate Blood Pressure 167/65 177/63 O2 Sat by Pulse 97 88 Oximetry 08/30/20 08/30/20 08/30/20 07:31 08:00 08:01 Temperature Pulse Rate 83 88 77 Pulse Rate [ From Monitor] Respiratory 22 19 Rate Blood Pressure 167/63 121/49 O2 Sat by Pulse 97 96 Oximetry 08/30/20 08/30/20 08/30/20 08:31 08:33 09:01 Temperature Pulse Rate 85 87 89 Pulse Rate [ From Monitor] Respiratory 22 30 H 32 H Rate Blood Pressure 169/66 169/66 192/78 O2 Sat by Pulse 94 98 95 Oximetry 08/30/20 08/30/20 08/30/20 09:30 09:51 10:01 Temperature Pulse Rate 90 89 86 Pulse Rate [ From Monitor] Respiratory 34 H 35 H Rate Blood Pressure 191/75 191/75 174/76 O2 Sat by Pulse 98 97 Oximetry 08/30/20 08/30/20 08/30/20 10:06 10:31 11:01 Temperature Pulse Rate 88 83 81 Pulse Rate [ From Monitor] Respiratory 24 27 H Rate Blood Pressure 174/76 146/55 168/63 O2 Sat by Pulse 97 96 97 Oximetry 08/30/20 08/30/20 08/30/20 11:31 11:51 12:16 Temperature 98.8 F Pulse Rate 81 97 H Pulse Rate [ From Monitor] Respiratory 26 H Rate Blood Pressure 172/65 177/70 O2 Sat by Pulse 97 98 Oximetry Constitutional: appears uncomfortable, other (elderly obese female with mildly increased respirtatory effort at rest on MVS ) Eyes: non-icteric ENT: oropharynx moist, oropharyngeal exudate pre (mild), other (ETT 24 cm DIMAS) Neck: supple, no lymphadenopathy, no JVD Effort: mildly labored Ascultation: Bilateral: diminished breath sounds, rhonchi Percussion: Bilateral: not dull Cardiovascular: regular rate and rhythm Gastrointestinal: normoactive bowel sounds, soft, non-tender, non-distended Integumentary: normal Extremities: no cyanosis, no edema, pulses normal, no ischemia or petechiae Neurologic: non-focal exam (grossly), pupils equal and round, unable to assess Psychiatric: other (unable to assess re: AMS) CBC and BMP: 08/29/20 04:32 08/30/20 04:14 ABG, PT/INR, D-dimer: ABG ABG pH 7.437 pH Units (7.350-7.450) 08/30/20 Unknown POC ABG pCO2 33.7 mmHg (32.0-48.0) 08/27/20 04:10 ABG pCO2 39.4 mm Hg 08/30/20 Unknown POC ABG pO2 74.9 mmHg (83-108) L 08/27/20 04:10 ABG pO2 99.0 mm Hg (80.0-90.0) H 08/30/20 Unknown POC ABG HCO3 23.1 08/27/20 04:10 ABG O2 Saturation 97.6 % (95.0-99.0) 08/30/20 Unknown PT/INR, D-dimer D-Dimer > 12516 ng/mlDDU (0-234) H 08/25/20 11:23 Abnormal lab findings: Abnormal Labs 08/25/20 08/25/20 08/25/20 11:14 11:17 11:23 WBC 11.5 H RBC 3.22 L Hgb 8.6 L Hct 27.6 L MCH 27 L RDW 15.6 H Lymph % (Auto) Lymph # (Auto) Seg Neutrophils % Seg Neuts % (Manual) 89.0 H Lymphocytes % (Manual) 5.0 L Seg Neutrophils # Seg Neutrophils # Man 10.2 H Lymphocytes # (Manual) 0.6 L D-Dimer ABG pH 7.290 L POC ABG pO2 161.1 H ABG pO2 ABG HCO3 ABG Hemoglobin 8.9 L ABG Oxyhemoglobin 98.6 H ABG Sodium 135.2 L ABG Potassium 5.9 H ABG Glucose 210 H Oxyhemoglobin Carboxyhemoglobin 0.4 L Sodium Potassium Chloride Carbon Dioxide BUN Creatinine Glucose POC Glucose Lactic Acid Calcium AST ALT Troponin T C-Reactive Protein Total Protein Albumin Arterial Blood Glucose 210 H Arterial Blood Ionized Calcium 4.4 L Urine WBC (Auto) 31.0 H Urine Creatinine 08/25/20 08/25/20 08/25/20 11:23 11:23 11:23 WBC RBC Hgb Hct MCH RDW Lymph % (Auto) Lymph # (Auto) Seg Neutrophils % Seg Neuts % (Manual) Lymphocytes % (Manual) Seg Neutrophils # Seg Neutrophils # Man Lymphocytes # (Manual) D-Dimer > 44595 H ABG pH POC ABG pO2 ABG pO2 ABG HCO3 ABG Hemoglobin ABG Oxyhemoglobin ABG Sodium ABG Potassium ABG Glucose Oxyhemoglobin Carboxyhemoglobin Sodium Potassium 6.4 H* Chloride Carbon Dioxide 21 L BUN 52 H Creatinine 3.5 H Glucose 194 H POC Glucose Lactic Acid 3.30 H* Calcium 8.1 L AST 103 H ALT 77 H Troponin T 0.057 H C-Reactive Protein Total Protein 5.8 L Albumin 3.4 L Arterial Blood Glucose Arterial Blood Ionized Calcium Urine WBC (Auto) Urine Creatinine 08/25/20 08/25/20 08/25/20 13:51 15:45 20:34 WBC RBC Hgb Hct MCH RDW Lymph % (Auto) Lymph # (Auto) Seg Neutrophils % Seg Neuts % (Manual) Lymphocytes % (Manual) Seg Neutrophils # Seg Neutrophils # Man Lymphocytes # (Manual) D-Dimer ABG pH POC ABG pO2 66.3 L ABG pO2 ABG HCO3 ABG Hemoglobin 9.1 L ABG Oxyhemoglobin 92.5 L ABG Sodium ABG Potassium ABG Glucose 225 H Oxyhemoglobin Carboxyhemoglobin Sodium Potassium Chloride Carbon Dioxide BUN Creatinine Glucose POC Glucose 188 H 233 H Lactic Acid Calcium AST ALT Troponin T C-Reactive Protein Total Protein Albumin Arterial Blood Glucose 225 H Arterial Blood Ionized Calcium 4.4 L Urine WBC (Auto) Urine Creatinine 08/26/20 08/26/20 08/26/20 04:14 05:04 05:04 WBC 17.9 H RBC 3.05 L Hgb 8.3 L Hct 25.6 L MCH 27 L RDW 15.3 H Lymph % (Auto) Lymph # (Auto) Seg Neutrophils % Seg Neuts % (Manual) 96.0 H Lymphocytes % (Manual) 1.0 L Seg Neutrophils # Seg Neutrophils # Man 17.2 H Lymphocytes # (Manual) 0.2 L D-Dimer ABG pH POC ABG pO2 131.3 H ABG pO2 ABG HCO3 ABG Hemoglobin 8.6 L ABG Oxyhemoglobin 98.2 H ABG Sodium ABG Potassium ABG Glucose 182 H Oxyhemoglobin Carboxyhemoglobin 0.2 L Sodium Potassium Chloride Carbon Dioxide BUN 56 H Creatinine 3.4 H Glucose 187 H POC Glucose Lactic Acid Calcium 8.3 L AST 54 H ALT 57 H Troponin T C-Reactive Protein Total Protein 5.4 L Albumin 2.9 L Arterial Blood Glucose 182 H Arterial Blood Ionized Calcium 4.3 L Urine WBC (Auto) Urine Creatinine 08/26/20 08/26/20 08/26/20 05:40 07:36 11:54 WBC RBC Hgb Hct MCH RDW Lymph % (Auto) Lymph # (Auto) Seg Neutrophils % Seg Neuts % (Manual) Lymphocytes % (Manual) Seg Neutrophils # Seg Neutrophils # Man Lymphocytes # (Manual) D-Dimer ABG pH POC ABG pO2 ABG pO2 ABG HCO3 ABG Hemoglobin ABG Oxyhemoglobin ABG Sodium ABG Potassium ABG Glucose Oxyhemoglobin Carboxyhemoglobin Sodium Potassium Chloride Carbon Dioxide BUN Creatinine Glucose POC Glucose 179 H 171 H 190 H Lactic Acid Calcium AST ALT Troponin T C-Reactive Protein Total Protein Albumin Arterial Blood Glucose Arterial Blood Ionized Calcium Urine WBC (Auto) Urine Creatinine 08/26/20 08/26/20 08/26/20 15:14 17:00 18:50 WBC RBC Hgb Hct MCH RDW Lymph % (Auto) Lymph # (Auto) Seg Neutrophils % Seg Neuts % (Manual) Lymphocytes % (Manual) Seg Neutrophils # Seg Neutrophils # Man Lymphocytes # (Manual) D-Dimer ABG pH POC ABG pO2 ABG pO2 ABG HCO3 ABG Hemoglobin ABG Oxyhemoglobin ABG Sodium ABG Potassium ABG Glucose Oxyhemoglobin Carboxyhemoglobin Sodium Potassium Chloride Carbon Dioxide BUN Creatinine Glucose POC Glucose 158 H Lactic Acid Calcium AST ALT Troponin T C-Reactive Protein 7.80 H Total Protein Albumin Arterial Blood Glucose Arterial Blood Ionized Calcium Urine WBC (Auto) Urine Creatinine 67.4 H 08/26/20 08/27/20 08/27/20 22:01 04:10 05:12 WBC RBC Hgb Hct MCH RDW Lymph % (Auto) Lymph # (Auto) Seg Neutrophils % Seg Neuts % (Manual) Lymphocytes % (Manual) Seg Neutrophils # Seg Neutrophils # Man Lymphocytes # (Manual) D-Dimer ABG pH 7.454 H POC ABG pO2 74.9 L ABG pO2 ABG HCO3 ABG Hemoglobin 7.9 L ABG Oxyhemoglobin ABG Sodium ABG Potassium ABG Glucose 117 H Oxyhemoglobin Carboxyhemoglobin Sodium Potassium Chloride Carbon Dioxide BUN Creatinine Glucose POC Glucose 122 H 117 H Lactic Acid Calcium AST ALT Troponin T C-Reactive Protein Total Protein Albumin Arterial Blood Glucose 117 H Arterial Blood Ionized Calcium 4.4 L Urine WBC (Auto) Urine Creatinine 08/27/20 08/27/20 08/27/20 07:24 07:24 11:08 WBC 12.7 H RBC 2.92 L Hgb 8.1 L Hct 24.4 L MCH RDW 15.4 H Lymph % (Auto) 5.9 L Lymph # (Auto) 0.8 L Seg Neutrophils % 86.9 H Seg Neuts % (Manual) Lymphocytes % (Manual) Seg Neutrophils # 11.0 H Seg Neutrophils # Man Lymphocytes # (Manual) D-Dimer ABG pH POC ABG pO2 ABG pO2 ABG HCO3 ABG Hemoglobin ABG Oxyhemoglobin ABG Sodium ABG Potassium ABG Glucose Oxyhemoglobin Carboxyhemoglobin Sodium Potassium Chloride Carbon Dioxide BUN 60 H Creatinine 3.6 H Glucose 135 H POC Glucose 139 H Lactic Acid Calcium AST ALT Troponin T C-Reactive Protein Total Protein 5.3 L Albumin 2.6 L Arterial Blood Glucose Arterial Blood Ionized Calcium Urine WBC (Auto) Urine Creatinine 08/27/20 08/27/20 08/27/20 11:19 17:31 23:25 WBC RBC Hgb Hct MCH RDW Lymph % (Auto) Lymph # (Auto) Seg Neutrophils % Seg Neuts % (Manual) Lymphocytes % (Manual) Seg Neutrophils # Seg Neutrophils # Man Lymphocytes # (Manual) D-Dimer ABG pH POC ABG pO2 ABG pO2 ABG HCO3 ABG Hemoglobin ABG Oxyhemoglobin ABG Sodium ABG Potassium ABG Glucose Oxyhemoglobin Carboxyhemoglobin Sodium Potassium Chloride Carbon Dioxide BUN Creatinine Glucose POC Glucose 143 H 140 H 123 H Lactic Acid Calcium AST ALT Troponin T C-Reactive Protein Total Protein Albumin Arterial Blood Glucose Arterial Blood Ionized Calcium Urine WBC (Auto) Urine Creatinine 08/28/20 08/28/20 08/28/20 03:50 04:19 04:19 WBC RBC 2.80 L Hgb 7.8 L Hct 23.6 L MCH RDW 15.8 H Lymph % (Auto) Lymph # (Auto) Seg Neutrophils % Seg Neuts % (Manual) Lymphocytes % (Manual) Seg Neutrophils # Seg Neutrophils # Man Lymphocytes # (Manual) D-Dimer ABG pH 7.329 L POC ABG pO2 ABG pO2 76.7 L ABG HCO3 27.0 H ABG Hemoglobin 7.5 L ABG Oxyhemoglobin ABG Sodium ABG Potassium ABG Glucose Oxyhemoglobin 93.6 L Carboxyhemoglobin Sodium 135 L Potassium Chloride Carbon Dioxide BUN 64 H Creatinine 3.8 H Glucose 143 H POC Glucose Lactic Acid Calcium 8.0 L AST ALT Troponin T C-Reactive Protein Total Protein 4.8 L Albumin 2.4 L Arterial Blood Glucose Arterial Blood Ionized Calcium Urine WBC (Auto) Urine Creatinine 08/28/20 08/28/20 08/28/20 05:35 11:22 17:18 WBC RBC Hgb Hct MCH RDW Lymph % (Auto) Lymph # (Auto) Seg Neutrophils % Seg Neuts % (Manual) Lymphocytes % (Manual) Seg Neutrophils # Seg Neutrophils # Man Lymphocytes # (Manual) D-Dimer ABG pH POC ABG pO2 ABG pO2 ABG HCO3 ABG Hemoglobin ABG Oxyhemoglobin ABG Sodium ABG Potassium ABG Glucose Oxyhemoglobin Carboxyhemoglobin Sodium Potassium Chloride Carbon Dioxide BUN Creatinine Glucose POC Glucose 147 H 182 H 216 H Lactic Acid Calcium AST ALT Troponin T C-Reactive Protein Total Protein Albumin Arterial Blood Glucose Arterial Blood Ionized Calcium Urine WBC (Auto) Urine Creatinine 08/28/20 08/28/20 08/29/20 21:04 23:20 04:32 WBC RBC Hgb Hct MCH RDW Lymph % (Auto) Lymph # (Auto) Seg Neutrophils % Seg Neuts % (Manual) Lymphocytes % (Manual) Seg Neutrophils # Seg Neutrophils # Man Lymphocytes # (Manual) D-Dimer ABG pH POC ABG pO2 ABG pO2 ABG HCO3 ABG Hemoglobin ABG Oxyhemoglobin ABG Sodium ABG Potassium ABG Glucose Oxyhemoglobin Carboxyhemoglobin Sodium 135 L Potassium Chloride 96.0 L Carbon Dioxide BUN 67 H Creatinine 3.8 H Glucose 200 H POC Glucose 204 H 242 H Lactic Acid Calcium 8.2 L AST ALT Troponin T C-Reactive Protein Total Protein Albumin Arterial Blood Glucose Arterial Blood Ionized Calcium Urine WBC (Auto) Urine Creatinine 08/29/20 08/29/20 08/29/20 04:32 04:50 04:59 WBC RBC 3.25 L Hgb 9.0 L Hct 27.0 L MCH RDW 16.1 H Lymph % (Auto) Lymph # (Auto) Seg Neutrophils % Seg Neuts % (Manual) Lymphocytes % (Manual) Seg Neutrophils # Seg Neutrophils # Man Lymphocytes # (Manual) D-Dimer ABG pH POC ABG pO2 ABG pO2 ABG HCO3 ABG Hemoglobin 8.8 L ABG Oxyhemoglobin ABG Sodium ABG Potassium ABG Glucose Oxyhemoglobin Carboxyhemoglobin Sodium Potassium Chloride Carbon Dioxide BUN Creatinine Glucose POC Glucose 201 H Lactic Acid Calcium AST ALT Troponin T C-Reactive Protein Total Protein Albumin Arterial Blood Glucose Arterial Blood Ionized Calcium Urine WBC (Auto) Urine Creatinine 08/29/20 08/29/20 08/29/20 11:10 11:28 17:50 WBC RBC Hgb Hct MCH RDW Lymph % (Auto) Lymph # (Auto) Seg Neutrophils % Seg Neuts % (Manual) Lymphocytes % (Manual) Seg Neutrophils # Seg Neutrophils # Man Lymphocytes # (Manual) D-Dimer ABG pH POC ABG pO2 ABG pO2 78.7 L ABG HCO3 26.6 H ABG Hemoglobin 9.8 L ABG Oxyhemoglobin ABG Sodium ABG Potassium ABG Glucose Oxyhemoglobin 94.3 L Carboxyhemoglobin Sodium Potassium Chloride Carbon Dioxide BUN Creatinine Glucose POC Glucose 219 H 203 H Lactic Acid Calcium AST ALT Troponin T C-Reactive Protein Total Protein Albumin Arterial Blood Glucose Arterial Blood Ionized Calcium Urine WBC (Auto) Urine Creatinine 08/29/20 08/29/20 08/30/20 21:31 23:28 04:14 WBC RBC Hgb Hct MCH RDW Lymph % (Auto) Lymph # (Auto) Seg Neutrophils % Seg Neuts % (Manual) Lymphocytes % (Manual) Seg Neutrophils # Seg Neutrophils # Man Lymphocytes # (Manual) D-Dimer ABG pH POC ABG pO2 ABG pO2 ABG HCO3 ABG Hemoglobin ABG Oxyhemoglobin ABG Sodium ABG Potassium ABG Glucose Oxyhemoglobin Carboxyhemoglobin Sodium 132 L Potassium Chloride 94.8 L Carbon Dioxide BUN 68 H Creatinine 3.7 H Glucose 214 H POC Glucose 204 H 215 H Lactic Acid Calcium AST ALT Troponin T C-Reactive Protein Total Protein Albumin Arterial Blood Glucose Arterial Blood Ionized Calcium Urine WBC (Auto) Urine Creatinine 08/30/20 08/30/20 08/30/20 05:10 11:33 Unknown WBC RBC Hgb Hct MCH RDW Lymph % (Auto) Lymph # (Auto) Seg Neutrophils % Seg Neuts % (Manual) Lymphocytes % (Manual) Seg Neutrophils # Seg Neutrophils # Man Lymphocytes # (Manual) D-Dimer ABG pH POC ABG pO2 ABG pO2 99.0 H ABG HCO3 ABG Hemoglobin 9.8 L ABG Oxyhemoglobin ABG Sodium ABG Potassium ABG Glucose Oxyhemoglobin Carboxyhemoglobin Sodium Potassium Chloride Carbon Dioxide BUN Creatinine Glucose POC Glucose 210 H 194 H Lactic Acid Calcium AST ALT Troponin T C-Reactive Protein Total Protein Albumin Arterial Blood Glucose Arterial Blood Ionized Calcium Urine WBC (Auto) Urine Creatinine Chest x-ray: image reviewed (persistent infiltrates and R>L effusion) Allied health notes reviewed: nursing
--- NOTE | 2020-08-30 14:17 | Electrocardiograph Report ---
[facility] Test Date: 2020-08-25 Test Time: 12:10:08 Pat Name: MARI YUSUF Department: Room: A255 1 Gender: F Program Trainer: Ann : 1945 Requested By: GUADALUPE BOJORQUEZ Order Number: [id number] Reading MD: Tahir Gil Measurements Intervals [place] Rate: 56 P: 18 ID: [id number] QRS: 35 QRSD: 95 T: 147 QT: 494 QTc: 476 Interpretive Statements Sinus bradycardia Nonspecific T abnormalities, lateral leads No previous ECG available for comparison Electronically Signed On 08-30-2020 14:16:47 EDT by Tahir Gil
--- NOTE | 2020-08-30 14:23 | Progress Note ---
<JENNY AMOS - Last Filed: 08/30/20 14:59> Assessment and Plan Assessment and plan: This is a 75-year-old female with CHF, OHS DM, CKD, morbid obesity, GERD, hypertension, chronic respiratory failure admitted s/p cardiac arrest NEURO Anoxic encephalopathy -Neurology consulted, appreciate recommendations -08/25 CT head shows no CT evidence of acute abnormality -08/28 MRI brain without contrast Seizure -EEG completed: no sz; low voltage activity noted -Valeri -Seizure/aspiration precautions -per neuro prognosis based on MRI -NO mind altering medications - to allow for neuro assessment and brain function -ativan given this AM for twitching of her mouth concerning for seizure Family at bedside and updated on plan of care/ discussed goals of care Case Management following CV SR S/p cardiac arrest with prolonged down time- see ER note -ACLS per EMS with ROSC -ddimer elevated following cardiac arrest -Cardiology has seen and signed off- call if needed -08/25 echocardiogram shows LVEF 40 to 45%, LV normal size, LV systolic function mildly decreased, mild diastolic dysfunction, mildly dilated right ventricle, pulmonary hypertension RVSP 45 mmHg -asa and statin Hypertension -home norvasc -Initiate hydralazine 50mg TID per cardiology -Blood pressure monitoring per protocol -IV hydralazine as needed RESP Acute hypoxic respiratory failure -Chronic respiratory insufficiency at home with 3 L oxygen via nasal cannula -Intubated for airway protection and hypoxia -requiring Mechanical ventilation -Wean as tolerated; trend pulse ox -CCM consulted, patient recommendation -VAP bundle -xray today worsening pulm infiltrates -nebs as needed Multifocal pneumonia/ ? aspiration event -08/25 CXR shows worsening patchy bilateral pulmonary opacities -08/25 CTA chest shows no evidence of pulmonary embolism, bilateral pulmonary processes with large bilateral pleural effusions, pneumonia is a concern, pulmonary edema could be a similar appearance versus pulmonary edema -Antibiotic therapy with Zithromax and Rocephin- today is the last dose GI protein roberto carlos malnutrition PPI for GI prophylaxis TF per nutrition bowel reg. FLORIDALMA on CKD secondary to patient under nephropathy -Nephrology consulted, patient recommendations -Daily weights -Avoid nephrotoxic medications; avoid NITIN/ARB -net pos 185 ml over the last 24 hours -foreman dc today -trend and replace electrolytes as needed -Trend Cr -AM labs ordered HEME Anemia -Admit H/H 8.6/27.8 -Transfuse for hemoglobin less than 7 -Trend CBC VTE prophylaxis with SCD and SQH ID pneumonia -trend WBC and temp curve -afebrile -WBC down trending -trend cultures -completing rochephin and azithromycin today -covid neg on admit ENDO Diabetes mellitus -SSI -Accu-Cheks every 6h -avoid hypoglycemia -hx obesity DVT/GI prophylaxis: SCDs to bilateral lower extremities heparin subcu, PPI Disposition: ICU Lines: PIV The high probability of a clinically significant, sudden or life threatening deterioration of the [cardiac, pulmonary, neuro, renal, infectious disease] system(s) required my full and direct attention, intervention and personal management. The aggregate critical care time was [35] minutes. This time is in addition to time spent performing reported procedures but includes the following: [x] Data Review and interpretation [x] Patient assessment and monitoring of vital signs [x] Documentation [x] Medication orders and management HPI This is a 69-year-old female with OHS, DM, CKD stage IV, morbid obesity CHF, GERD, HTN, chronic respiratory failure on 3 L of home oxygen via nasal cannula who presented to the emergency department on 08/25 after being found down unresponsive at 0950 hours by family and upon EMS arrival she was unresponsive and asystolic arrest. Patient was treated with ACLS protocol with eventual ROSC after at least 15 minutes of ACLS and patient was transported to [facility]. In the emergency department patient was found to have acute hypoxic respiratory failure and subsequently intubated on vasopressor support, she underwent a CXR which showed bilateral pneumonia and exam is consistent with SIRS. [facility] and cardiology were consulted and patient was admitted to the hospital service with acute hypoxic respiratory failure, anoxic encephalopathy, s/p cardiac arrest, multifocal pneumonia, FLORIDALMA on CKD. 08/26/20 patient is seen and examined. Patient is on vent. WBC 17.9 and hemoglobin 8.3 hematocrit 25.6. Patient may have 1 episode of questionable seizure. Patient BUN is 56 creatinine 3.4. Will consult nephrology. We also start the patient on Rocephin 2 g IV daily and Zithromax. Aspirin 81 mg p.o. daily and Lipitor. Patient is having echocardiogram. Cardiology and critical care will see the patient as consult tension. Continue current management. We have started on NG tube feeding and consult nutrition for evaluation. Recheck CBC BMP in the morning. Case discussed with daughter Leena [phone] 08/27: Patient remains on full ventilatory support, considering concern for seizure yesterday under the circumstance of out of hospital cardiac arrest, and concern for anoxic encephalopathy, will proceed with Neurology consultation. 08/28: At the time my examination patient sedation of propofol 30 and fentanyl 1 was being held and she was on CMV tidal and 450, rate of 18, PEEP of 6 and FiO2 of 35%. Neurology was consulted. I updated the patient's daughter Leena Payton at bedside and told her of the pending tests the neurologist has ordered. 08/29: Increase in Lantus due to persistent hypoglycemia, chest ultrasound ordered for possible thoracentesis by [facility], MRI brain pending. Remove Foreman catheter if okay with nephrology. Increase in beta-skylar by [facility] however cardiology decreased hydralazine per neurology recommendatiuons. At the time my examination patient was on CPAP trial pressure support of 12, PEEP of 6 and 35% FiO2. RT obtain an ABG we will continue CPAP as tolerated. 08/30 No acute overnight events Disposition Plan: TBD Total Time Spent with Patient (Minutes): 60 - Patient Problems (1) Acute renal failure superimposed on chronic kidney disease Current Visit: Yes Status: Acute (2) Acute respiratory failure Current Visit: Yes Status: Acute (3) Advance care planning Current Visit: Yes Status: Acute (4) Anoxic brain injury Current Visit: Yes Status: Acute (5) Anoxic encephalopathy Current Visit: Yes Status: Acute (6) Cardiac arrest Current Visit: Yes Status: Acute (7) DVT prophylaxis Current Visit: Yes Status: Acute (8) Anemia Current Visit: Yes Status: Chronic Qualifiers: Anemia type: unspecified type Qualified Code(s): D64.9 - Anemia, unspecified (9) Cardiomyopathy Current Visit: Yes Status: Chronic (10) Diabetes Current Visit: Yes Status: Chronic (11) Morbid obesity with BMI of 40.0-44.9, adult Current Visit: No Status: Acute History Interval history: No acute events overnight Hospitalist Physical - Constitutional Vitals: Temp Pulse Resp BP Pulse Ox 98.8 F 81 29 H 179/78 97 08/30/20 11:51 08/30/20 14:16 08/30/20 14:16 08/30/20 14:16 08/30/20 14:16 General appearance: Present: no acute distress, obese, other (pallor) - EENT Eyes: Absent: PERRL, EOM intact, irregular pupil ENT: clear oral mucosa - Neck Neck: Present: supple - Respiratory Respiratory effort: normal, other (intubated and ventilated; minimal secretions this afternoon ) - Cardiovascular Heart rate: 92 Rhythm: regular Heart Sounds: Present: S1 & S2 - Extremities Extremity abnormal: edema (generalized) Peripheral Pulses: within normal limits - Abdominal General gastrointestinal: soft, non-tender - Integumentary Integumentary: Present: clear, warm, dry - Psychiatric Psychiatric: other - Neurologic Neurologic: no CNII-XII intact, focal deficits, no moves all extremities, no gait normal - Additional findings Additional findings: bilateral guaze pref to right Pupils 3 and NR pos cough withdrawals to deep pain ativan given this AM for mouth twitching concerning for sz activity - Allied Health Allied health notes reviewed: nursing, RT, social work, case management HEART Score - HEART Score Troponin: Troponin T 0.057 ng/mL (0.00-0.029) H 08/25/20 11:23 Results - Labs CBC & Chem 7: 08/29/20 04:32 08/30/20 04:14 Labs: Laboratory Last Values WBC 10.8 K/mm3 (4.5-11.0) 08/29/20 04:32 RBC 3.25 M/mm3 (3.65-5.03) L 08/29/20 04:32 Hgb 9.0 gm/dl (10.1-14.3) L 08/29/20 04:32 Hct 27.0 % (30.3-42.9) L 08/29/20 04:32 MCV 83 fl (79-97) 08/29/20 04:32 MCH 28 pg (28-32) 08/29/20 04:32 MCHC 33 % (30-34) 08/29/20 04:32 RDW 16.1 % (13.2-15.2) H 08/29/20 04:32 Plt Count 192 K/mm3 (140-440) 08/29/20 04:32 Lymph % (Auto) 5.9 % (13.4-35.0) L 08/27/20 07:24 [place] % (Auto) 4.6 % (0.0-7.3) 08/27/20 07:24 Eos % (Auto) 2.2 % (0.0-4.3) 08/27/20 07:24 Baso % (Auto) 0.4 % (0.0-1.8) 08/27/20 07:24 Lymph # (Auto) 0.8 K/mm3 (1.2-5.4) L 08/27/20 07:24 [place] # (Auto) 0.6 K/mm3 (0.0-0.8) 08/27/20 07:24 Eos # (Auto) 0.3 K/mm3 (0.0-0.4) 08/27/20 07:24 Baso # (Auto) 0.0 K/mm3 (0.0-0.1) 08/27/20 07:24 Add Manual Diff Complete 08/26/20 05:04 Total Counted 100 08/26/20 05:04 Seg Neutrophils % 86.9 % (40.0-70.0) H 08/27/20 07:24 Seg Neuts % (Manual) 96.0 % (40.0-70.0) H 08/26/20 05:04 Band Neutrophils % 2.0 % 08/25/20 11:23 Lymphocytes % (Manual) 1.0 % (13.4-35.0) L 08/26/20 05:04 Monocytes % (Manual) 3.0 % (0.0-7.3) 08/26/20 05:04 Eosinophils % (Manual) 3.0 % (0.0-4.3) 08/25/20 11:23 Metamyelocytes % 1.0 % 08/25/20 11:23 Nucleated RBC % Not Reportable 08/26/20 05:04 Seg Neutrophils # 11.0 K/mm3 (1.8-7.7) H 08/27/20 07:24 Seg Neutrophils # Man 17.2 K/mm3 (1.8-7.7) H 08/26/20 05:04 Band Neutrophils # 0.0 K/mm3 08/26/20 05:04 Lymphocytes # (Manual) 0.2 K/mm3 (1.2-5.4) L 08/26/20 05:04 Abs React Lymphs (Man) 0.0 K/mm3 08/26/20 05:04 Monocytes # (Manual) 0.5 K/mm3 (0.0-0.8) 08/26/20 05:04 Eosinophils # (Manual) 0.0 K/mm3 (0.0-0.4) 08/26/20 05:04 Basophils # (Manual) 0.0 K/mm3 (0.0-0.1) 08/26/20 05:04 Metamyelocytes # 0.0 K/mm3 08/26/20 05:04 Myelocytes # 0.0 K/mm3 08/26/20 05:04 Promyelocytes # 0.0 K/mm3 08/26/20 05:04 Blast Cells # 0.0 K/mm3 08/26/20 05:04 WBC Morphology Not Reportable 08/26/20 05:04 Hypersegmented Neuts Not Reportable 08/26/20 05:04 Hyposegmented Neuts Not Reportable 08/26/20 05:04 Hypogranular Neuts Not Reportable 08/26/20 05:04 Smudge Cells Not Reportable 08/26/20 05:04 Toxic Granulation Not Reportable 08/26/20 05:04 Toxic Vacuolation Not Reportable 08/26/20 05:04 Dohle Bodies Not Reportable 08/26/20 05:04 Pelger-Huet Anomaly Not Reportable 08/26/20 05:04 Jannette Rods Not Reportable 08/26/20 05:04 Platelet Estimate Consistent w auto 08/26/20 05:04 Clumped Platelets Not Reportable 08/26/20 05:04 Plt Clumps, EDTA Not Reportable 08/26/20 05:04 Large Platelets Not Reportable 08/26/20 05:04 Giant Platelets Not Reportable 08/26/20 05:04 Platelet Satelliting Not Reportable 08/26/20 05:04 Plt Morphology Comment Not Reportable 08/26/20 05:04 RBC Morphology Not Reportable 08/26/20 05:04 Dimorphic RBCs Not Reportable 08/26/20 05:04 Polychromasia Not Reportable 08/26/20 05:04 Hypochromasia Not Reportable 08/26/20 05:04 Poikilocytosis Not Reportable 08/26/20 05:04 Anisocytosis 1+ 08/26/20 05:04 Microcytosis Not Reportable 08/26/20 05:04 Macrocytosis Not Reportable 08/26/20 05:04 Spherocytes Not Reportable 08/26/20 05:04 Pappenheimer Bodies Not Reportable 08/26/20 05:04 Sickle Cells Not Reportable 08/26/20 05:04 Target Cells Not Reportable 08/26/20 05:04 Tear Drop Cells Not Reportable 08/26/20 05:04 Ovalocytes Not Reportable 08/26/20 05:04 Helmet Cells Not Reportable 08/26/20 05:04 Fernando-Orion Bodies Not Reportable 08/26/20 05:04 [place] Rings Not Reportable 08/26/20 05:04 Lindsey Cells Not Reportable 08/26/20 05:04 Bite Cells Not Reportable 08/26/20 05:04 Crenated Cell Not Reportable 08/26/20 05:04 Elliptocytes Not Reportable 08/26/20 05:04 Acanthocytes (Spur) Not Reportable 08/26/20 05:04 Rouleaux Not Reportable 08/26/20 05:04 Hemoglobin C Crystals Not Reportable 08/26/20 05:04 Schistocytes Not Reportable 08/26/20 05:04 Malaria parasites Not Reportable 08/26/20 05:04 Shabbir Bodies Not Reportable 08/26/20 05:04 Hem Pathologist Commnt No 08/26/20 05:04 D-Dimer > 52309 ng/mlDDU (0-234) H 08/25/20 11:23 ABG pH 7.437 pH Units (7.350-7.450) 08/30/20 Unknown POC ABG pCO2 33.7 mmHg (32.0-48.0) 08/27/20 04:10 ABG pCO2 39.4 mm Hg 08/30/20 Unknown POC ABG pO2 74.9 mmHg (83-108) L 08/27/20 04:10 ABG pO2 99.0 mm Hg (80.0-90.0) H 08/30/20 Unknown POC ABG HCO3 23.1 08/27/20 04:10 ABG HCO3 26.0 mmol/L (20.0-26.0) 08/30/20 Unknown ABG O2 Saturation 97.6 % (95.0-99.0) 08/30/20 Unknown ABG O2 Content 13.4 (0.0-44) 08/30/20 Unknown POC ABG Base Excess -0.6 08/27/20 04:10 ABG Base Excess 1.7 mmol/L (-2.0-3.0) 08/30/20 Unknown ABG Hemoglobin 9.8 gm/dl (12.0-16.0) L 08/30/20 Unknown ABG Oxyhemoglobin 94.0 (94-98) 08/27/20 04:10 ABG Carboxyhemoglobin 1.3 % (0.0-5.0) 08/30/20 Unknown ABG Methemoglobin 0.5 % (0.0-1.5) 08/30/20 Unknown ABG Sodium 136.3 mmol/L (136.0-145.0) 08/27/20 04:10 ABG Potassium 3.8 mmol/L (3.40-4.50) 08/27/20 04:10 ABG Chloride 103.0 mmol/L (98-107) 08/27/20 04:10 ABG Glucose 117 mg/dL (65-95) H 08/27/20 04:10 Oxyhemoglobin 95.8 % (95.0-99.0) 08/30/20 Unknown Carboxyhemoglobin 0.8 (0.5-1.5) 08/27/20 04:10 FiO2 35 % 08/30/20 Unknown FiO2 % 40.0 08/27/20 04:10 Sodium 132 mmol/L (137-145) L 08/30/20 04:14 Potassium 3.8 mmol/L (3.6-5.0) 08/30/20 04:14 Chloride 94.8 mmol/L (98-107) L 08/30/20 04:14 Carbon Dioxide 25 mmol/L (22-30) 08/30/20 04:14 Anion Gap 16 mmol/L 08/30/20 04:14 BUN 68 mg/dL (7-17) H 08/30/20 04:14 Creatinine 3.7 mg/dL (0.6-1.2) H 08/30/20 04:14 Estimated GFR 12 ml/min 08/30/20 04:14 BUN/Creatinine Ratio 18 % 08/30/20 04:14 Glucose 214 mg/dL (65-100) H 08/30/20 04:14 POC Glucose 194 mg/dL (70-105) H 08/30/20 11:33 Lactic Acid 1.80 mmol/L (0.7-2.0) 08/25/20 12:45 Calcium 8.4 mg/dL (8.4-10.2) 08/30/20 04:14 Phosphorus 4.40 mg/dL (2.5-4.5) 08/29/20 04:32 Total Bilirubin < 0.20 mg/dL (0.1-1.2) 08/28/20 04:19 AST 37 units/L (5-40) 08/28/20 04:19 ALT 27 units/L (7-56) 08/28/20 04:19 Alkaline Phosphatase 84 units/L (35-129) 08/28/20 04:19 Troponin T 0.057 ng/mL (0.00-0.029) H 08/25/20 11:23 C-Reactive Protein 7.80 mg/dL (0.00-1.30) H 08/26/20 18:50 Total Protein 4.8 g/dL (6.3-8.2) L 08/28/20 04:19 Albumin 2.4 g/dL (3.9-5) L 08/28/20 04:19 Albumin/Globulin Ratio 1.0 % 08/28/20 04:19 Triglycerides 111 mg/dL (2-149) 08/29/20 04:32 Cholesterol 158 mg/dL (50-199) 08/25/20 11:23 LDL Cholesterol Direct 101 mg/dL (50-130) 08/25/20 11:23 HDL Cholesterol 50 mg/dL (40-59) 08/25/20 11:23 Cholesterol/HDL Ratio 3.16 % 08/25/20 11:23 Procalcitonin 0.41 ng/mL (<0.15) 08/26/20 18:50 Arterial Blood Glucose 117 mg/dL (65-95) H 08/27/20 04:10 Arterial Blood Ionized Calcium 4.4 mg/dL (4.6-5.3) L 08/27/20 04:10 Urine Color Yellow (Yellow) 08/25/20 11:17 Urine Turbidity Cloudy (Clear) 08/25/20 11:17 Urine pH 7.0 (5.0-7.0) 08/25/20 11:17 Ur Specific [place] 1.012 (1.003-1.030) 08/25/20 11:17 Urine Protein >500 mg/dL (Negative) 08/25/20 11:17 Urine Glucose (UA) >=500 mg/dL (Negative) 08/25/20 11:17 Urine Ketones Neg mg/dL (Negative) 08/25/20 11:17 Urine Blood Sm (Negative) 08/25/20 11:17 Urine Nitrite Neg (Negative) 08/25/20 11:17 Urine Bilirubin Neg (Negative) 08/25/20 11:17 Urine Urobilinogen < 2.0 mg/dL (<2.0) 08/25/20 11:17 Ur Leukocyte Esterase Neg (Negative) 08/25/20 11:17 Urine WBC (Auto) 31.0 /HPF (0.0-6.0) H 08/25/20 11:17 Urine RBC (Auto) 28.0 /HPF (0.0-6.0) 08/25/20 11:17 U Epithel Cells (Auto) 5.0 /HPF (0-13.0) 08/25/20 11:17 Urine Bacteria (Auto) 1+ /HPF (Negative) 08/25/20 11:17 Urine WBC Clumps Few /HPF 08/25/20 11:17 Ur Renal Epithelial Cell 4 /LPF 08/25/20 11:17 Hyaline Casts 28 /LPF 08/25/20 11:17 Urine Creatinine 67.4 mg/dL (0.1-20.0) H 08/26/20 17:00 Urine Sodium 12 mmol/L 08/26/20 17:00 Coronavirus (PCR) Negative (Negative) 08/26/20 Unknown Microbiology: Microbiology 08/25/20 11:23 Peripheral/Venous Blood Culture - Final NO GROWTH AFTER 5 DAYS 08/25/20 11:23 Peripheral/Venous Blood Culture - Final NO GROWTH AFTER 5 DAYS - Imaging and Cardiology Chest x-ray: image reviewed - Diagnostic Impressions Diagnostic Impressions: MRI HEAD NOTED EEG official read pending Foreman/IV: Voiding Method Indwelling Catheter Active Medications - Current Medications Current Medications: Generic Name Dose Route Start Last Admin Trade Name Freq PRN Reason Stop Dose Admin Albuterol 2.5 mg 08/25/20 14:55 Albuterol 2.5 Mg/3 Ml Nebu IH Q3HRT PRN Shortness Of Breath Amlodipine Besylate 5 mg 08/28/20 10:00 08/30/20 09:51 Amlodipine 5 Mg Tab PO 5 mg QDAY TERA Administration Lipase/Protease/Amylase 1 each 08/26/20 12:15 Lipase 10,500/Protease 25,000/Amylase 43,750 (Units) Dr Gu FEEDTUBE PRN PRN For Clogged Feeding Tube Aspirin 81 mg 08/27/20 10:00 08/30/20 09:52 Aspirin 81 Mg Tab Chew PO 81 mg QDAY TERA Administration Atorvastatin Calcium 40 mg 08/26/20 22:00 08/29/20 21:33 Atorvastatin 40 Mg Tab PO 40 mg QHS TERA Administration Azithromycin 250 mg 08/28/20 10:00 08/30/20 09:52 Azithromycin 250 Mg Tab PO 08/31/20 10:01 250 mg QDAY TERA Administration Protocol Dextrose 50 ml 08/26/20 19:18 Dextrose 50% In Water (25gm) 50 Ml Syringe IV Q30MIN PRN Hypoglycemia Protocol Famotidine 20 mg 08/28/20 10:00 08/30/20 09:51 Famotidine 20 Mg Tab PO 20 mg DAILY TERA Administration Heparin Sodium (Porcine) 5,000 unit 08/26/20 22:00 08/30/20 09:50 Heparin 5,000 Unit/1 Ml Vial SUB-Q 5,000 unit Q12HR TERA Administration Hydralazine HCl 10 mg 08/26/20 01:20 08/29/20 04:03 Hydralazine 20 Mg/1 Ml Inj IV 10 mg Q4HR PRN Administration Blood Pressure Hydralazine HCl 50 mg 08/30/20 22:00 Hydralazine 25 Mg Tab PO Q8HR [facility] Hydrophilic Ointment 1 applic 08/25/20 11:07 08/25/20 11:57 Lip Therapy Vaseline TP 1 applic Q2HR PRN Administration Dry Lips Insulin Glargine 15 units 08/30/20 22:00 Insulin Glargine 100 Units/Ml SUB-Q QHS [facility] Insulin Human Lispro 0 unit 08/27/20 12:00 08/30/20 12:19 Insulin Lispro 100 Unit/Ml SUB-Q 2 unit Q6HR TERA Administration Protocol Levetiracetam 500 mg 08/30/20 10:00 08/30/20 09:51 Levetiracetam 500 Mg/5 Ml Oral Liqd PO 500 mg BID TERA Administration Metoprolol Tartrate 12.5 mg 08/29/20 22:00 08/30/20 09:51 Metoprolol Tartrate 25 Mg Tab PO 12.5 mg BID TERA Administration Multi-Ingred Cream/Lotion/Oil/Oint 1 applic 08/25/20 11:07 Mineral Oil/Petrolatum, White Ophth Oint 3.5 Gm OU Q4HR PRN Dry Eye(s) Senna/Docusate Sodium 1 tab 08/25/20 22:00 08/30/20 09:51 Sennosides/Docusate Sodium 8.6/50 Mg Tab FEEDTUBE 1 tab BID TERA Administration Simple Syrup 15 ml 08/26/20 12:15 Simple Syrup 15 Ml FEEDTUBE PRN PRN Hypoglycemia Simple Syrup 30 ml 08/26/20 12:15 Simple Syrup 15 Ml FEEDTUBE PRN PRN Hypoglycemia Sodium Bicarbonate 325 mg 08/26/20 12:15 Sodium Bicarbonate 325 Mg Tab FEEDTUBE PRN PRN For Clogged Feeding Tube Sodium Chloride 10 ml 08/25/20 22:00 08/30/20 09:52 Sodium Chloride 0.9% 10 Ml Flush Syringe IV 10 ml BID TERA Administration Sodium Chloride 10 ml 08/25/20 14:55 08/29/20 04:05 Sodium Chloride 0.9% 10 Ml Flush Syringe IV 10 ml PRN PRN Administration LINE FLUSH Nutrition/Malnutrition Assess - Dietary Evaluation Nutrition/Malnutrition Findings: Nutrition Notes Start: 08/26/20 10:21 Freq: Status: Active Protocol: Document 08/30/20 13:05 CW (Rec: 08/30/20 13:09 [id number]) Nutrition Notes Initial or Follow up Reassessment Current Diagnosis Acute Kidney Injury,CKD(stage I-IV),Diabetes,Hypertension, Heart Failure,Respiratory Failure Other Pertinent Diagnosis cardiac arrest, acute encephalopathy, pneu, anoxIC brain injury, GERD Current Diet Nepro 1.8 at 30 ml/hr Labs/Tests Na 132 BUN 68 Cr 3.7 BG 214 Pertinent Medications Humalog Senokot Height 5 ft 5 in Weight 92.1 kg [place] Body Weight (kg) 56.81 BMI 33.7 Weight Status Obese Subjective/Other Information F/U for TF tolerance. Pt no longer recieving propofol. TF running at goal of 30. No reports of TF intolerance. Percent of energy/protein needs met: 100%/58% Burn Absent Trauma Absent Current % PO Negligible Minimum of two criteria No physical signs of malnutrition #1 Nutrition Diagnosis Inadequate oral intake Diagnosis Progress(for reassessment Continues documentation) Is patient on ventilator? Yes Is Patient Ambulatory and/or Out of Bed No REE-(Cunningham-St. Jeor-confined to bed) 1700.436 Kcal/Kg value to use for calculation 14 Approximate Energy Requirements Using 1289 kcal/Kg Calculation Used for Recommendations Kcal/kg Additional Notes protein needs: >114g (>2 g/ kgIBW) fluid needs 1500 - 1900 ml or per MD order Nutrition Intervention Change Diet Order: Continue TF Nutrition Support: Nepro at 30 ml/hr with a free water flush of 130 ml q4h Kcal 1,296 Protein (gm) 58 Fluid (mL) 523 Goal #1 Meet at least 75% of kcal and protein needs as best as possible Anticipated Discharge Needs: unable to determine at this time Follow-Up By: 09/01/20 Additional Comments F/U for TF tolerance - Attestation Statement I have reviewed and agreed w/ Malnutrition eval & tx plan: Yes <AMBER GONZALEZ - Last Filed: 08/31/20 16:32> Assessment and Plan Assessment and plan: Agree with assessment and plan as outlined by nurse practitioner. Family at the bedside, nephrology at the bedside also, spoke to patient's daughter pertaining to hospice care. Will need to speak with family before making any decisions. Hospitalist Physical - Constitutional Vitals: Temp Pulse Resp BP Pulse Ox 97.7 F 60 18 163/77 99 08/31/20 12:00 08/31/20 16:26 08/31/20 16:01 08/31/20 16:26 08/31/20 16:26 HEART Score - HEART Score Troponin: Troponin T 0.057 ng/mL (0.00-0.029) H 08/25/20 11:23 Results - Labs CBC & Chem 7: 08/31/20 10:57 08/31/20 10:57 Labs: Laboratory Last Values WBC 11.4 K/mm3 (4.5-11.0) H 08/31/20 10:57 RBC 3.24 M/mm3 (3.65-5.03) L 08/31/20 10:57 Hgb 8.5 gm/dl (10.1-14.3) L 08/31/20 10:57 Hct 26.6 % (30.3-42.9) L 08/31/20 10:57 MCV 82 fl (79-97) 08/31/20 10:57 MCH 26 pg (28-32) L 08/31/20 10:57 MCHC 32 % (30-34) 08/31/20 10:57 RDW 15.6 % (13.2-15.2) H 08/31/20 10:57 Plt Count 258 K/mm3 (140-440) 08/31/20 10:57 Lymph % (Auto) 5.9 % (13.4-35.0) L 08/27/20 07:24 [place] % (Auto) 4.6 % (0.0-7.3) 08/27/20 07:24 Eos % (Auto) 2.2 % (0.0-4.3) 08/27/20 07:24 Baso % (Auto) 0.4 % (0.0-1.8) 08/27/20 07:24 Lymph # (Auto) 0.8 K/mm3 (1.2-5.4) L 08/27/20 07:24 [place] # (Auto) 0.6 K/mm3 (0.0-0.8) 08/27/20 07:24 Eos # (Auto) 0.3 K/mm3 (0.0-0.4) 08/27/20 07:24 Baso # (Auto) 0.0 K/mm3 (0.0-0.1) 08/27/20 07:24 Add Manual Diff Complete 08/26/20 05:04 Total Counted 100 08/26/20 05:04 Seg Neutrophils % 86.9 % (40.0-70.0) H 08/27/20 07:24 Seg Neuts % (Manual) 96.0 % (40.0-70.0) H 08/26/20 05:04 Band Neutrophils % 2.0 % 08/25/20 11:23 Lymphocytes % (Manual) 1.0 % (13.4-35.0) L 08/26/20 05:04 Monocytes % (Manual) 3.0 % (0.0-7.3) 08/26/20 05:04 Eosinophils % (Manual) 3.0 % (0.0-4.3) 08/25/20 11:23 Metamyelocytes % 1.0 % 08/25/20 11:23 Nucleated RBC % Not Reportable 08/26/20 05:04 Seg Neutrophils # 11.0 K/mm3 (1.8-7.7) H 08/27/20 07:24 Seg Neutrophils # Man 17.2 K/mm3 (1.8-7.7) H 08/26/20 05:04 Band Neutrophils # 0.0 K/mm3 08/26/20 05:04 Lymphocytes # (Manual) 0.2 K/mm3 (1.2-5.4) L 08/26/20 05:04 Abs React Lymphs (Man) 0.0 K/mm3 08/26/20 05:04 Monocytes # (Manual) 0.5 K/mm3 (0.0-0.8) 08/26/20 05:04 Eosinophils # (Manual) 0.0 K/mm3 (0.0-0.4) 08/26/20 05:04 Basophils # (Manual) 0.0 K/mm3 (0.0-0.1) 08/26/20 05:04 Metamyelocytes # 0.0 K/mm3 08/26/20 05:04 Myelocytes # 0.0 K/mm3 08/26/20 05:04 Promyelocytes # 0.0 K/mm3 08/26/20 05:04 Blast Cells # 0.0 K/mm3 08/26/20 05:04 WBC Morphology Not Reportable 08/26/20 05:04 Hypersegmented Neuts Not Reportable 08/26/20 05:04 Hyposegmented Neuts Not Reportable 08/26/20 05:04 Hypogranular Neuts Not Reportable 08/26/20 05:04 Smudge Cells Not Reportable 08/26/20 05:04 Toxic Granulation Not Reportable 08/26/20 05:04 Toxic Vacuolation Not Reportable 08/26/20 05:04 Dohle Bodies Not Reportable 08/26/20 05:04 Pelger-Huet Anomaly Not Reportable 08/26/20 05:04 Jannette Rods Not Reportable 08/26/20 05:04 Platelet Estimate Consistent w auto 08/26/20 05:04 Clumped Platelets Not Reportable 08/26/20 05:04 Plt Clumps, EDTA Not Reportable 08/26/20 05:04 Large Platelets Not Reportable 08/26/20 05:04 Giant Platelets Not Reportable 08/26/20 05:04 Platelet Satelliting Not Reportable 08/26/20 05:04 Plt Morphology Comment Not Reportable 08/26/20 05:04 RBC Morphology Not Reportable 08/26/20 05:04 Dimorphic RBCs Not Reportable 08/26/20 05:04 Polychromasia Not Reportable 08/26/20 05:04 Hypochromasia Not Reportable 08/26/20 05:04 Poikilocytosis Not Reportable 08/26/20 05:04 Anisocytosis 1+ 08/26/20 05:04 Microcytosis Not Reportable 08/26/20 05:04 Macrocytosis Not Reportable 08/26/20 05:04 Spherocytes Not Reportable 08/26/20 05:04 Pappenheimer Bodies Not Reportable 08/26/20 05:04 Sickle Cells Not Reportable 08/26/20 05:04 Target Cells Not Reportable 08/26/20 05:04 Tear Drop Cells Not Reportable 08/26/20 05:04 Ovalocytes Not Reportable 08/26/20 05:04 Helmet Cells Not Reportable 08/26/20 05:04 [place] Bodies Not Reportable 08/26/20 05:04 [place] Rings Not Reportable 08/26/20 05:04 [place] Cells Not Reportable 08/26/20 05:04 Bite Cells Not Reportable 08/26/20 05:04 Crenated Cell Not Reportable 08/26/20 05:04 Elliptocytes Not Reportable 08/26/20 05:04 Acanthocytes (Spur) Not Reportable 08/26/20 05:04 Rouleaux Not Reportable 08/26/20 05:04 Hemoglobin C Crystals Not Reportable 08/26/20 05:04 Schistocytes Not Reportable 08/26/20 05:04 Malaria parasites Not Reportable 08/26/20 05:04 Shabbir Bodies Not Reportable 08/26/20 05:04 Hem Pathologist Commnt No 08/26/20 05:04 D-Dimer > 36818 ng/mlDDU (0-234) H 08/25/20 11:23 ABG pH 7.451 pH Units (7.350-7.450) H 08/31/20 04:10 POC ABG pCO2 33.7 mmHg (32.0-48.0) 08/27/20 04:10 ABG pCO2 36.6 mm Hg 08/31/20 04:10 POC ABG pO2 74.9 mmHg (83-108) L 08/27/20 04:10 ABG pO2 99.6 mm Hg (80.0-90.0) H 08/31/20 04:10 POC ABG HCO3 23.1 08/27/20 04:10 ABG HCO3 24.9 mmol/L (20.0-26.0) 08/31/20 04:10 ABG O2 Saturation 97.7 % (95.0-99.0) 08/31/20 04:10 ABG O2 Content 11.6 (0.0-44) 08/31/20 04:10 POC ABG Base Excess -0.6 08/27/20 04:10 ABG Base Excess 1.0 mmol/L (-2.0-3.0) 08/31/20 04:10 ABG Hemoglobin 8.4 gm/dl (12.0-16.0) L 08/31/20 04:10 ABG Oxyhemoglobin 94.0 (94-98) 08/27/20 04:10 ABG Carboxyhemoglobin 1.4 % (0.0-5.0) 08/31/20 04:10 ABG Methemoglobin 0.5 % (0.0-1.5) 08/31/20 04:10 ABG Sodium 136.3 mmol/L (136.0-145.0) 08/27/20 04:10 ABG Potassium 3.8 mmol/L (3.40-4.50) 08/27/20 04:10 ABG Chloride 103.0 mmol/L (98-107) 08/27/20 04:10 ABG Glucose 117 mg/dL (65-95) H 08/27/20 04:10 Oxyhemoglobin 95.9 % (95.0-99.0) 08/31/20 04:10 Carboxyhemoglobin 0.8 (0.5-1.5) 08/27/20 04:10 FiO2 30 % 08/31/20 04:10 FiO2 % 40.0 08/27/20 04:10 Sodium 133 mmol/L (137-145) L 08/31/20 10:57 Potassium 3.7 mmol/L (3.6-5.0) 08/31/20 10:57 Chloride 96.4 mmol/L (98-107) L 08/31/20 10:57 Carbon Dioxide 24 mmol/L (22-30) 08/31/20 10:57 Anion Gap 16 mmol/L 08/31/20 10:57 BUN 74 mg/dL (7-17) H 08/31/20 10:57 Creatinine 3.8 mg/dL (0.6-1.2) H 08/31/20 10:57 Estimated GFR 12 ml/min 08/31/20 10:57 BUN/Creatinine Ratio 19 % 08/31/20 10:57 Glucose 201 mg/dL (65-100) H 08/31/20 10:57 POC Glucose 217 mg/dL (70-105) H 08/31/20 12:32 Lactic Acid 1.80 mmol/L (0.7-2.0) 08/25/20 12:45 Calcium 7.6 mg/dL (8.4-10.2) L 08/31/20 10:57 Phosphorus 4.40 mg/dL (2.5-4.5) 08/29/20 04:32 Total Bilirubin < 0.20 mg/dL (0.1-1.2) 08/28/20 04:19 AST 37 units/L (5-40) 08/28/20 04:19 ALT 27 units/L (7-56) 08/28/20 04:19 Alkaline Phosphatase 84 units/L (35-129) 08/28/20 04:19 Troponin T 0.057 ng/mL (0.00-0.029) H 08/25/20 11:23 C-Reactive Protein 7.80 mg/dL (0.00-1.30) H 08/26/20 18:50 Total Protein 4.8 g/dL (6.3-8.2) L 08/28/20 04:19 Albumin 2.4 g/dL (3.9-5) L 08/28/20 04:19 Albumin/Globulin Ratio 1.0 % 08/28/20 04:19 Triglycerides 111 mg/dL (2-149) 08/29/20 04:32 Cholesterol 158 mg/dL (50-199) 08/25/20 11:23 LDL Cholesterol Direct 101 mg/dL (50-130) 08/25/20 11:23 HDL Cholesterol 50 mg/dL (40-59) 08/25/20 11:23 Cholesterol/HDL Ratio 3.16 % 08/25/20 11:23 Procalcitonin 0.41 ng/mL (<0.15) 08/26/20 18:50 Arterial Blood Glucose 117 mg/dL (65-95) H 08/27/20 04:10 Arterial Blood Ionized Calcium 4.4 mg/dL (4.6-5.3) L 08/27/20 04:10 Urine Color Yellow (Yellow) 08/25/20 11:17 Urine Turbidity Cloudy (Clear) 08/25/20 11:17 Urine pH 7.0 (5.0-7.0) 08/25/20 11:17 Ur Specific [place] 1.012 (1.003-1.030) 08/25/20 11:17 Urine Protein >500 mg/dL (Negative) 08/25/20 11:17 Urine Glucose (UA) >=500 mg/dL (Negative) 08/25/20 11:17 Urine Ketones Neg mg/dL (Negative) 08/25/20 11:17 Urine Blood Sm (Negative) 08/25/20 11:17 Urine Nitrite Neg (Negative) 08/25/20 11:17 Urine Bilirubin Neg (Negative) 08/25/20 11:17 Urine Urobilinogen < 2.0 mg/dL (<2.0) 08/25/20 11:17 Ur Leukocyte Esterase Neg (Negative) 08/25/20 11:17 Urine WBC (Auto) 31.0 /HPF (0.0-6.0) H 08/25/20 11:17 Urine RBC (Auto) 28.0 /HPF (0.0-6.0) 08/25/20 11:17 U Epithel Cells (Auto) 5.0 /HPF (0-13.0) 08/25/20 11:17 Urine Bacteria (Auto) 1+ /HPF (Negative) 08/25/20 11:17 Urine WBC Clumps Few /HPF 08/25/20 11:17 Ur Renal Epithelial Cell 4 /LPF 08/25/20 11:17 Hyaline Casts 28 /LPF 08/25/20 11:17 Urine Creatinine 67.4 mg/dL (0.1-20.0) H 08/26/20 17:00 Urine Sodium 12 mmol/L 08/26/20 17:00 Coronavirus (PCR) Negative (Negative) 08/26/20 Unknown Foreman/IV: Voiding Method Indwelling Catheter Active Medications - Current Medications Current Medications: Generic Name Dose Route Start Last Admin Trade Name Freq PRN Reason Stop Dose Admin Albuterol 2.5 mg 08/25/20 14:55 Albuterol 2.5 Mg/3 Ml Nebu IH Q3HRT PRN Shortness Of Breath Amlodipine Besylate 5 mg 08/28/20 10:00 08/31/20 11:08 Amlodipine 5 Mg Tab PO 5 mg QDAY TERA Administration Lipase/Protease/Amylase 1 each 08/26/20 12:15 Lipase 10,500/Protease 25,000/Amylase 43,750 (Units) Dr Gu FEEDTUBE PRN PRN For Clogged Feeding Tube Aspirin 81 mg 08/27/20 10:00 08/31/20 11:09 Aspirin 81 Mg Tab Chew PO 81 mg QDAY TERA Administration Atorvastatin Calcium 40 mg 08/26/20 22:00 08/30/20 21:44 Atorvastatin 40 Mg Tab PO 40 mg QHS TERA Administration Dextrose 50 ml 08/26/20 19:18 Dextrose 50% In Water (25gm) 50 Ml Syringe IV Q30MIN PRN Hypoglycemia Protocol Famotidine 20 mg 08/28/20 10:00 08/31/20 13:40 Famotidine 20 Mg Tab PO 20 mg DAILY TERA Administration Heparin Sodium (Porcine) 5,000 unit 08/26/20 22:00 08/31/20 11:09 Heparin 5,000 Unit/1 Ml Vial SUB-Q 5,000 unit Q12HR TERA Administration Hydralazine HCl 10 mg 08/26/20 01:20 08/31/20 08:45 Hydralazine 20 Mg/1 Ml Inj IV 10 mg Q4HR PRN Administration Blood Pressure Hydralazine HCl 100 mg 08/31/20 14:00 08/31/20 14:10 Hydralazine 100 Mg Tab PO 100 mg TID TERA Administration Hydrophilic Ointment 1 applic 08/25/20 11:07 08/25/20 11:57 Lip Therapy Vaseline TP 1 applic Q2HR PRN Administration Dry Lips Lacosamide 100 mg/ Sodium 110 mls @ 100 mls/hr 08/31/20 14:00 08/31/20 14:10 Chloride IV 09/01/20 23:05 100 mls/hr Q12HR TERA Administration Insulin Glargine 20 units 08/31/20 22:00 Insulin Glargine 100 Units/Ml SUB-Q QHS TERA Insulin Human Lispro 0 unit 08/27/20 12:00 08/31/20 12:53 Insulin Lispro 100 Unit/Ml SUB-Q 2 unit Q6HR TERA Administration Protocol Lacosamide 100 mg 09/02/20 10:00 Lacosamide 100 Mg Tab PO Q12HR TERA Levetiracetam 750 mg 08/31/20 13:00 08/31/20 13:40 Levetiracetam 500 Mg/5 Ml Oral Liqd PO 750 mg BID TERA Administration Metoprolol Tartrate 12.5 mg 08/29/20 22:00 08/31/20 11:09 Metoprolol Tartrate 25 Mg Tab PO 12.5 mg BID TERA Administration Multi-Ingred Cream/Lotion/Oil/Oint 1 applic 08/25/20 11:07 Mineral Oil/Petrolatum, White Ophth Oint 3.5 Gm OU Q4HR PRN Dry Eye(s) Senna/Docusate Sodium 1 tab 08/25/20 22:00 08/31/20 11:08 Sennosides/Docusate Sodium 8.6/50 Mg Tab FEEDTUBE 1 tab BID TERA Administration Simple Syrup 15 ml 08/26/20 12:15 Simple Syrup 15 Ml FEEDTUBE PRN PRN Hypoglycemia Simple Syrup 30 ml 08/26/20 12:15 Simple Syrup 15 Ml FEEDTUBE PRN PRN Hypoglycemia Sodium Bicarbonate 325 mg 08/26/20 12:15 Sodium Bicarbonate 325 Mg Tab FEEDTUBE PRN PRN For Clogged Feeding Tube Sodium Chloride 10 ml 08/25/20 22:00 08/31/20 13:44 Sodium Chloride 0.9% 10 Ml Flush Syringe IV 10 ml BID TERA Administration Sodium Chloride 10 ml 06/25/21 14:55 08/29/20 04:05 Sodium Chloride 0.9% 10 Ml Flush Syringe IV 10 ml PRN PRN Administration LINE FLUSH Tamsulosin HCl 0.4 mg 08/31/20 15:00 Tamsulosin 0.4 Mg Cap PO QDAY TERA Nutrition/Malnutrition Assess - Dietary Evaluation Nutrition/Malnutrition Findings: Nutrition Notes Start: 08/26/20 10:21 Freq: Status: Active Protocol: Document 08/30/20 13:05 CW (Rec: 08/30/20 13:09 CW [id number]) Nutrition Notes Initial or Follow up Reassessment Current Diagnosis Acute Kidney Injury,CKD(stage I-IV),Diabetes,Hypertension, Heart Failure,Respiratory Failure Other Pertinent Diagnosis cardiac arrest, acute encephalopathy, pneu, anoxIC brain injury, GERD Current Diet Nepro 1.8 at 30 ml/hr Labs/Tests Na 132 BUN 68 Cr 3.7 BG 214 Pertinent Medications Humalog Senokot Height 5 ft 5 in Weight 92.1 kg [place] Body Weight (kg) 56.81 BMI 33.7 Weight Status Obese Subjective/Other Information F/U for TF tolerance. Pt no longer recieving propofol. TF running at goal of 30. Percent of energy/protein needs met: 100%/58% Burn Absent Trauma Absent Current % PO Negligible Minimum of two criteria No physical signs of malnutrition #1 Nutrition Diagnosis Inadequate oral intake Diagnosis Progress(for reassessment Continues documentation) Is patient on ventilator? Yes Is Patient Ambulatory and/or Out of Bed No REE-([facility]-confined to bed) 1700.436 Kcal/Kg value to use for calculation 14 Approximate Energy Requirements Using 1289 kcal/Kg Calculation Used for Recommendations Kcal/kg Additional Notes protein needs: >114g (>2 g/ kgIBW) fluid needs 1500 - 1900 ml or per MD order Nutrition Intervention Change Diet Order: Continue TF Nutrition Support: Nepro at 30 ml/hr with a free water flush of 130 ml q4h Kcal 1,296 Protein (gm) 58 Fluid (mL) 523 Goal #1 Meet at least 75% of kcal and protein needs as best as possible Anticipated Discharge Needs: unable to determine at this time Follow-Up By: 09/01/20 Additional Comments F/U for TF tolerance
[2020-08-30] MEDS: hydrALAZINE 20 MG/1 ML INJ IV PRN (18:13)
[2020-08-30] MEDS ORDERED: INSULIN GLARGINE 100 UNITS/ML SUB-Q SCH (22:00)
[2020-08-31] MEDS: INSULIN LISPRO 100 UNIT/ML SUB-Q SCH ×4 (00:40→17:21)
[2020-08-31 04:38] LABS: ABG HCO3 24.9 mmol/L (20.0-26.0); ABG Methemoglobin 0.5 % (0.0-1.5); ABG Oxygen Saturation 97.7 % (95.0-99.0); ABG PCO2 36.6 mm Hg; ABG PH 7.451 pH Units (7.350-7.450); ABG PO2 99.6 mm Hg (80.0-90.0)
--- NOTE | 2020-08-31 04:56 | XRay Report ---
CHEST 1 VIEW INDICATION / CLINICAL INFORMATION: follow up respiratory failure. FINDINGS: SUPPORT DEVICES: No change in position.. HEART / MEDIASTINUM: No significant change. LUNGS / PLEURA: Mild bilateral interstitial edema with bilateral pleural effusions unchanged Signer Name: Luis Taylor MD Signed: 08/31/2020 4:52 AM Workstation Name: [id number]
[2020-08-31] MEDS: hydrALAZINE 25 MG TAB PO SCH (06:29)
[2020-08-31] MEDS: hydrALAZINE 20 MG/1 ML INJ IV PRN (08:45)
--- NOTE | 2020-08-31 09:53 | Progress Note ---
Assessment and Plan 1. Acute kidney injury: Vasomotor FLORIDALMA superimposed on CKD stage 4 in the setting Cardiac arrest. Low FeNa. CT abdomen negative for hydro. Monitor renal function. Creatinine leveled off. Remain non-oliguric. Renal prognosis is guarded. Avoid nephrotoxic agents. Meds dosage based on GFR. Monitor for [employer]IST needs. No labs from today. 2. FEN: Hyperkalemia, improved. Metabolic acidosis, improved. Monitor lytes. 3. Acute respiratory failure with hypoxia: 2/2 b/p pneumonia. Covid test negative. Intubated, on vent. On Abx. Followed by Pulmonary. 4. S/p OOH Cardiac arrest: Monitor. Followed by Cards. 5. Diabetes mellitus type 2: Follow blood glucose. 6. Hypertension: Monitor BP. 7. Anemia, POA: Monitor. 8. 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 Subjective: Patient was seen and examined at the bedside. Examination: General appearance: well-developed, well-nourished, appears stated age, intubated, on vent HEENT: ATNC, pupils not reacting to light Neck: supple Respiratory: coarse breath sounds Cardiology: regular, S1S2, no murmur Gastrointestinal: soft, bowel sounds heard, not tender Integumentary: no rash, warm and dry Neurologic: not responding Ext: trace dependent edema Subjective Date of service: 08/31/20 Principal diagnosis: Ac. hypoxemic resp failure; Cardiac arrest; AMS; AE-CHF; Hyperkalemia; FLORIDALMA Objective - Vital Signs Vital signs: Vital Signs - 12hr 08/30/20 08/30/20 08/30/20 22:01 22:03 22:31 Temperature Pulse Rate 80 81 85 Pulse Rate [ From Monitor] Respiratory 19 16 21 Rate Blood Pressure 203/76 203/76 203/76 O2 Sat by Pulse 99 98 98 Oximetry 08/30/20 08/30/20 08/31/20 23:01 23:31 00:00 Temperature 98.4 F Pulse Rate 79 77 83 Pulse Rate [ 77 From Monitor] Respiratory 17 17 16 Rate Blood Pressure 154/79 182/72 O2 Sat by Pulse 99 98 99 Oximetry 08/31/20 08/31/20 08/31/20 00:01 00:02 00:31 Temperature Pulse Rate 78 79 76 Pulse Rate [ From Monitor] Respiratory 23 21 Rate Blood Pressure 207/81 207/81 166/71 O2 Sat by Pulse 100 99 98 Oximetry 08/31/20 08/31/20 08/31/20 01:01 01:31 02:01 Temperature Pulse Rate 82 81 77 Pulse Rate [ From Monitor] Respiratory 26 H 24 22 Rate Blood Pressure 178/72 183/74 174/69 O2 Sat by Pulse 98 98 99 Oximetry 08/31/20 08/31/20 08/31/20 02:30 03:01 03:31 Temperature Pulse Rate 76 78 72 Pulse Rate [ From Monitor] Respiratory 23 23 22 Rate Blood Pressure 171/75 171/75 153/63 O2 Sat by Pulse 99 99 98 Oximetry 08/31/20 08/31/20 08/31/20 03:40 04:00 04:01 Temperature 99.1 F Pulse Rate 77 71 Pulse Rate [ 83 From Monitor] Respiratory 16 18 Rate Blood Pressure 133/55 O2 Sat by Pulse 99 99 Oximetry 08/31/20 08/31/20 08/31/20 04:11 04:31 05:01 Temperature Pulse Rate 70 77 70 Pulse Rate [ From Monitor] Respiratory 22 16 Rate Blood Pressure 133/55 133/55 123/63 O2 Sat by Pulse 99 99 99 Oximetry 08/31/20 08/31/20 08/31/20 05:31 06:01 06:29 Temperature Pulse Rate 73 86 77 Pulse Rate [ From Monitor] Respiratory 19 19 Rate Blood Pressure 115/55 151/52 151/52 O2 Sat by Pulse 99 98 Oximetry 08/31/20 08/31/20 08/31/20 06:31 07:01 07:30 Temperature Pulse Rate 76 71 70 Pulse Rate [ From Monitor] Respiratory 19 20 19 Rate Blood Pressure 186/65 148/55 148/56 O2 Sat by Pulse 97 98 98 Oximetry 08/31/20 08/31/20 08/31/20 08:00 08:01 08:24 Temperature Pulse Rate 80 74 Pulse Rate [ 72 From Monitor] Respiratory 16 23 19 Rate Blood Pressure 214/90 211/78 O2 Sat by Pulse 99 96 99 Oximetry 08/31/20 08/31/20 08:31 08:45 Temperature Pulse Rate 74 70 Pulse Rate [ From Monitor] Respiratory 19 Rate Blood Pressure 211/79 207/83 O2 Sat by Pulse 96 Oximetry - Lab 08/29/20 04:32 08/30/20 04:14 Most recent lab results ABG pH 7.451 pH Units (7.350-7.450) H 08/31/20 04:10 ABG pCO2 36.6 mm Hg 08/31/20 04:10 ABG pO2 99.6 mm Hg (80.0-90.0) H 08/31/20 04:10 ABG HCO3 24.9 mmol/L (20.0-26.0) 08/31/20 04:10 ABG O2 Saturation 97.7 % (95.0-99.0) 08/31/20 04:10 Calcium 8.4 mg/dL (8.4-10.2) 08/30/20 04:14 Phosphorus 4.40 mg/dL (2.5-4.5) 08/29/20 04:32 Urine Creatinine 67.4 mg/dL (0.1-20.0) H 08/26/20 17:00 Urine Sodium 12 mmol/L 08/26/20 17:00 Medications & Allergies - Medications Allergies/Adverse Reactions: Allergies No Known Allergies Allergy (Verified 07/31/18 07:06) Home Medications: Home Medications Medication Instructions Recorded Confirmed Last Taken Type Albuterol Mdi (or & Nicu Only) 2 puff IH QID PRN #1 inhalation 08/07/18 03/14/20 Unknown Rx [ProAir HFA Inhaler] Sucralfate [Carafate] 1 gm PO ACHS #30 tablet 08/07/18 03/14/20 03/13/20 Rx Insulin Regular, Human [HumuLIN R] 0 unit SQ AC #1 vial 08/11/18 03/14/20 Unknown Rx Labetalol HCl [Labetalol 300mg TAB] 300 mg PO BID #60 tablet 11/11/19 03/14/20 03/14/20 Rx Furosemide [Lasix TAB] 80 mg PO DAILY #14 tablet 03/27/20 Unknown Rx Insulin Glargine [Lantus VIAL] 15 units SUB-Q QAM #1 vial 03/27/20 Unknown Rx amLODIPine 10 mg PO QDAY #30 tablet 03/27/20 Unknown Rx Active Medications: Generic Name Dose Route Start Last Admin Trade Name Freq PRN Reason Stop Dose Admin Albuterol 2.5 mg 08/25/20 14:55 Albuterol 2.5 Mg/3 Ml Nebu IH Q3HRT PRN Shortness Of Breath Amlodipine Besylate 5 mg 06/28/21 10:00 08/30/20 09:51 Amlodipine 5 Mg Tab PO 5 mg QDAY TERA Administration Lipase/Protease/Amylase 1 each 08/26/20 12:15 Lipase 10,500/Protease 25,000/Amylase 43,750 (Units) Dr Gu FEEDTUBE PRN PRN For Clogged Feeding Tube Aspirin 81 mg 08/27/20 10:00 08/30/20 09:52 Aspirin 81 Mg Tab Chew PO 81 mg QDAY TERA Administration Atorvastatin Calcium 40 mg 08/26/20 22:00 08/30/20 21:44 Atorvastatin 40 Mg Tab PO 40 mg QHS TERA Administration Azithromycin 250 mg 08/28/20 10:00 08/30/20 09:52 Azithromycin 250 Mg Tab PO 08/31/20 10:01 250 mg QDAY TERA Administration Protocol Dextrose 50 ml 08/26/20 19:18 Dextrose 50% In Water (25gm) 50 Ml Syringe IV Q30MIN PRN Hypoglycemia Protocol Famotidine 20 mg 08/28/20 10:00 08/30/20 09:51 Famotidine 20 Mg Tab PO 20 mg DAILY TERA Administration Heparin Sodium (Porcine) 5,000 unit 08/26/20 22:00 08/30/20 21:42 Heparin 5,000 Unit/1 Ml Vial SUB-Q 5,000 unit Q12HR TERA Administration Hydralazine HCl 10 mg 08/26/20 01:20 08/31/20 08:45 Hydralazine 20 Mg/1 Ml Inj IV 10 mg Q4HR PRN Administration Blood Pressure Hydralazine HCl 100 mg 08/31/20 14:00 Hydralazine 100 Mg Tab PO TID [facility] Hydrophilic Ointment 1 applic 08/25/20 11:07 08/25/20 11:57 Lip Therapy Vaseline TP 1 applic Q2HR PRN Administration Dry Lips Insulin Glargine 15 units 08/30/20 22:00 08/30/20 21:41 Insulin Glargine 100 Units/Ml SUB-Q 15 units QHS TERA Administration Insulin Human Lispro 0 unit 08/27/20 12:00 08/31/20 06:30 Insulin Lispro 100 Unit/Ml SUB-Q 2 unit Q6HR TERA Administration Protocol Levetiracetam 500 mg 08/30/20 10:00 08/30/20 21:44 Levetiracetam 500 Mg/5 Ml Oral Liqd PO 500 mg BID TERA Administration Metoprolol Tartrate 12.5 mg 08/29/20 22:00 08/30/20 21:43 Metoprolol Tartrate 25 Mg Tab PO 12.5 mg BID TERA Administration Multi-Ingred Cream/Lotion/Oil/Oint 1 applic 08/25/20 11:07 Mineral Oil/Petrolatum, White Ophth Oint 3.5 Gm OU Q4HR PRN Dry Eye(s) Senna/Docusate Sodium 1 tab 08/25/20 22:00 08/30/20 21:44 Sennosides/Docusate Sodium 8.6/50 Mg Tab FEEDTUBE 1 tab BID TERA Administration Simple Syrup 15 ml 08/26/20 12:15 Simple Syrup 15 Ml FEEDTUBE PRN PRN Hypoglycemia Simple Syrup 30 ml 08/26/20 12:15 Simple Syrup 15 Ml FEEDTUBE PRN PRN Hypoglycemia Sodium Bicarbonate 325 mg 08/26/20 12:15 Sodium Bicarbonate 325 Mg Tab FEEDTUBE PRN PRN For Clogged Feeding Tube Sodium Chloride 10 ml 08/25/20 22:00 08/31/20 00:41 Sodium Chloride 0.9% 10 Ml Flush Syringe IV 10 ml BID TERA Administration Sodium Chloride 10 ml 08/25/20 14:55 08/29/20 04:05 Sodium Chloride 0.9% 10 Ml Flush Syringe IV 10 ml PRN PRN Administration LINE FLUSH
[2020-08-31] MEDS: SENNOSIDES/DOCUSATE SODIUM 8.6/50 MG TAB FEEDTUBE SCH ×2 (11:08→21:17)
[2020-08-31] MEDS: AZITHROMYCIN 250 MG TAB PO SCH (11:08)
[2020-08-31] MEDS: amLODIPine 5 MG TAB PO SCH (11:08)
[2020-08-31] MEDS: levETIRAcetam 500 MG/5 ML ORAL LIQD PO SCH ×3 (11:08→21:18)
[2020-08-31] MEDS: METOPROLOL TARTRATE 25 MG TAB PO SCH ×2 (11:09→21:18)
[2020-08-31] MEDS: ASPIRIN 81 MG TAB CHEW PO SCH (11:09)
[2020-08-31] MEDS: HEPARIN 5,000 UNIT/1 ML VIAL SUB-Q SCH ×2 (11:09→21:17)
--- NOTE | 2020-08-31 12:07 | Progress Note ---
<MENDEZJENNY HADLEY Veronique - Last Filed: 08/31/20 13:58> Assessment and Plan Assessment and plan: This is a 75-year-old female with CHF, OHS DM, CKD, morbid obesity, GERD, hypertension, chronic respiratory failure admitted s/p cardiac arrest NEURO Anoxic encephalopathy -Neurology consulted, appreciate recommendations -08/25 CT head shows no CT evidence of acute abnormality -08/28 MRI brain without contrast -08/30 EEG- results pending Seizure -Keppra BID -Seizure/aspiration precautions -per neuro prognosis poor based on MRI -left side sz noted today; started with facial twitching but did progress to the entire left side of the body twitching ativan 1 mg IV given keppra inc to 750 mg BID will add vimpat -NO mind altering medications - to allow for neuro assessment and brain function -opens eyes; PERRL; neg threat; pos cough; withdrawal on right to deep pain; no response to deep pain on left Pt has 8 living children- updated on plan of care Case Management following if decision is not made by family in 48 hours we will order trach/Peg Friday CV SR S/p cardiac arrest with prolonged down time- see ER note -ddimer elevated on admit following cardiac arrest -Cardiology has seen and signed off- call if needed -08/25 echocardiogram shows LVEF 40 to 45%, LV normal size, LV systolic function mildly decreased, mild diastolic dysfunction, mildly dilated right ventricle, pulmonary hypertension RVSP 45 mmHg -asa and statin Hypertension -home norvasc -hydral dose increased -Blood pressure monitoring per protocol -IV hydralazine as needed RESP Acute hypoxic respiratory failure -Chronic respiratory insufficiency at home with 3 L oxygen via nasal cannula -remains intubated and ventilated on cpap this AM placed back on support p sz -Wean as tolerated; trend pulse ox -CCM following -VAP bundle -nebs as needed Multifocal pneumonia/ ? aspiration event -08/25 CXR shows worsening patchy bilateral pulmonary opacities -08/25 CTA chest shows no evidence of pulmonary embolism, bilateral pulmonary processes with large bilateral pleural effusions, pneumonia is a concern, pulmonary edema could be a similar appearance versus pulmonary edema GI protein roberto carlos malnutrition PPI for GI prophylaxis TF per nutrition bowel reg. FLORIDALMA on CKD secondary to patient under nephropathy -Nephrology consulted, patient recommendations -Daily weights -Avoid nephrotoxic medications; avoid NITIN/ARB -bladder scan with high residuals requiring frequent intermittent caths so foreman replaced at 1230 -trend and replace electrolytes as needed -Trend Cr -AM labs ordered HEME Anemia -Admit H/H 8.6/27.8 -Transfuse for hemoglobin less than 7 -Trend CBC VTE prophylaxis with SCD and SQH ID pneumonia -trend WBC and temp curve -afebrile -trend cultures -covid neg on admit ENDO Diabetes mellitus -SSI -inc lantus to 20 BID given persistent hyperglycemia reevaluate if pt is NPO for any reason -Accu-Cheks every 6h -avoid hypoglycemia -hx obesity DVT/GI prophylaxis: SCDs to bilateral lower extremities heparin subcu, PPI Disposition: ICU Lines: PIV; foreman The high probability of a clinically significant, sudden or life threatening deterioration of the [cardiac, pulmonary, neuro, renal, infectious disease] system(s) required my full and direct attention, intervention and personal management. The aggregate critical care time was [35] minutes. This time is in addition to time spent performing reported procedures but includes the following: [x] Data Review and interpretation [x] Patient assessment and monitoring of vital signs [x] Documentation [x] Medication orders and management HPI This is a 69-year-old female with OHS, DM, CKD stage IV, morbid obesity CHF, GERD, HTN, chronic respiratory failure on 3 L of home oxygen via nasal cannula who presented to the emergency department on 08/25 after being found down unresponsive at 0950 hours by family and upon EMS arrival she was unresponsive and asystolic arrest. Patient was treated with ACLS protocol with eventual ROSC after at least 15 minutes of ACLS and patient was transported to [facility]. In the emergency department patient was found to have acute hypoxic respiratory failure and subsequently intubated on vasopressor support, she underwent a CXR which showed bilateral pneumonia and exam is consistent with SIRS. CCM and cardiology were consulted and patient was admitted to the hospital service with acute hypoxic respiratory failure, anoxic encephalopathy, s/p cardiac arrest, multifocal pneumonia, FLORIDALMA on CKD. 08/26/20 patient is seen and examined. Patient is on vent. WBC 17.9 and hemoglobin 8.3 hematocrit 25.6. Patient may have 1 episode of questionable seizure. Patient BUN is 56 creatinine 3.4. Will consult nephrology. We also start the patient on Rocephin 2 g IV daily and Zithromax. Aspirin 81 mg p.o. daily and Lipitor. Patient is having echocardiogram. Cardiology and critical care will see the patient as consult tension. Continue current management. We have started on NG tube feeding and consult nutrition for evaluation. Recheck CBC BMP in the morning. Case discussed with daughter Leena [phone] 08/27: Patient remains on full ventilatory support, considering concern for seizure yesterday under the circumstance of out of hospital cardiac arrest, and concern for anoxic encephalopathy, will proceed with Neurology consultation. 08/28: At the time my examination patient sedation of propofol 30 and fentanyl 1 was being held and she was on CMV tidal and 450, rate of 18, PEEP of 6 and FiO2 of 35%. Neurology was consulted. I updated the patient's daughter Leena Payton at bedside and told her of the pending tests the neurologist has ordered. 08/29: Increase in Lantus due to persistent hypoglycemia, chest ultrasound ordered for possible thoracentesis by [place], MRI brain pending. Remove Foreman catheter if okay with nephrology. Increase in beta-skylar by [place] however cardiology decreased hydralazine per neurology recommendatiuons. At the time my examination patient was on CPAP trial pressure support of 12, PEEP of 6 and 35% FiO2. RT obtain an ABG we will continue CPAP as tolerated. 08/30 No acute overnight events Disposition Plan: TBD Total Time Spent with Patient (Minutes): 60 - Patient Problems (1) Acute renal failure superimposed on chronic kidney disease Current Visit: Yes Status: Acute (2) Acute respiratory failure Current Visit: Yes Status: Acute (3) Advance care planning Current Visit: Yes Status: Acute (4) Anoxic brain injury Current Visit: Yes Status: Acute (5) Anoxic encephalopathy Current Visit: Yes Status: Acute (6) Cardiac arrest Current Visit: Yes Status: Acute (7) DVT prophylaxis Current Visit: Yes Status: Acute (8) Anemia Current Visit: Yes Status: Chronic Qualifiers: Anemia type: unspecified type Qualified Code(s): D64.9 - Anemia, unspecified (9) Cardiomyopathy Current Visit: Yes Status: Chronic (10) Diabetes Current Visit: Yes Status: Chronic (11) Morbid obesity with BMI of 40.0-44.9, adult Current Visit: No Status: Acute History Interval history: No acute events overnight Hospitalist Physical - Constitutional Vitals: Temp Pulse Resp BP Pulse Ox 98.3 F 66 19 142/57 96 08/31/20 08:00 08/31/20 11:09 08/31/20 08:31 08/31/20 11:09 08/31/20 08:31 General appearance: Present: no acute distress, obese, other (pallor) - Neck Neck: Present: supple - Respiratory Respiratory effort: normal - Cardiovascular Rhythm: regular Heart Sounds: Present: S1 & S2 Peripheral Pulses: within normal limits - Abdominal General gastrointestinal: soft, non-tender - Integumentary Integumentary: Present: clear, warm, dry - Psychiatric Psychiatric: other - Allied Health Allied health notes reviewed: nursing, RT, social work, case management HEART Score - HEART Score Troponin: Troponin T 0.057 ng/mL (0.00-0.029) H 08/25/20 11:23 Results - Labs CBC & Chem 7: 08/31/20 10:57 08/31/20 10:57 Labs: Laboratory Last Values WBC 10.8 K/mm3 (4.5-11.0) 08/29/20 04:32 RBC 3.25 M/mm3 (3.65-5.03) L 08/29/20 04:32 Hgb 9.0 gm/dl (10.1-14.3) L 08/29/20 04:32 Hct 27.0 % (30.3-42.9) L 08/29/20 04:32 MCV 83 fl (79-97) 08/29/20 04:32 MCH 28 pg (28-32) 08/29/20 04:32 MCHC 33 % (30-34) 08/29/20 04:32 RDW 16.1 % (13.2-15.2) H 08/29/20 04:32 Plt Count 192 K/mm3 (140-440) 08/29/20 04:32 Lymph % (Auto) 5.9 % (13.4-35.0) L 08/27/20 07:24 [place] % (Auto) 4.6 % (0.0-7.3) 08/27/20 07:24 Eos % (Auto) 2.2 % (0.0-4.3) 08/27/20 07:24 Baso % (Auto) 0.4 % (0.0-1.8) 08/27/20 07:24 Lymph # (Auto) 0.8 K/mm3 (1.2-5.4) L 08/27/20 07:24 [place] # (Auto) 0.6 K/mm3 (0.0-0.8) 08/27/20 07:24 Eos # (Auto) 0.3 K/mm3 (0.0-0.4) 08/27/20 07:24 Baso # (Auto) 0.0 K/mm3 (0.0-0.1) 08/27/20 07:24 Add Manual Diff Complete 08/26/20 05:04 Total Counted 100 08/26/20 05:04 Seg Neutrophils % 86.9 % (40.0-70.0) H 08/27/20 07:24 Seg Neuts % (Manual) 96.0 % (40.0-70.0) H 08/26/20 05:04 Band Neutrophils % 2.0 % 08/25/20 11:23 Lymphocytes % (Manual) 1.0 % (13.4-35.0) L 08/26/20 05:04 Monocytes % (Manual) 3.0 % (0.0-7.3) 08/26/20 05:04 Eosinophils % (Manual) 3.0 % (0.0-4.3) 08/25/20 11:23 Metamyelocytes % 1.0 % 08/25/20 11:23 Nucleated RBC % Not Reportable 08/26/20 05:04 Seg Neutrophils # 11.0 K/mm3 (1.8-7.7) H 08/27/20 07:24 Seg Neutrophils # Man 17.2 K/mm3 (1.8-7.7) H 08/26/20 05:04 Band Neutrophils # 0.0 K/mm3 08/26/20 05:04 Lymphocytes # (Manual) 0.2 K/mm3 (1.2-5.4) L 08/26/20 05:04 Abs React Lymphs (Man) 0.0 K/mm3 08/26/20 05:04 Monocytes # (Manual) 0.5 K/mm3 (0.0-0.8) 08/26/20 05:04 Eosinophils # (Manual) 0.0 K/mm3 (0.0-0.4) 08/26/20 05:04 Basophils # (Manual) 0.0 K/mm3 (0.0-0.1) 08/26/20 05:04 Metamyelocytes # 0.0 K/mm3 08/26/20 05:04 Myelocytes # 0.0 K/mm3 08/26/20 05:04 Promyelocytes # 0.0 K/mm3 08/26/20 05:04 Blast Cells # 0.0 K/mm3 08/26/20 05:04 WBC Morphology Not Reportable 08/26/20 05:04 Hypersegmented Neuts Not Reportable 08/26/20 05:04 Hyposegmented Neuts Not Reportable 08/26/20 05:04 Hypogranular Neuts Not Reportable 08/26/20 05:04 Smudge Cells Not Reportable 08/26/20 05:04 Toxic Granulation Not Reportable 08/26/20 05:04 Toxic Vacuolation Not Reportable 08/26/20 05:04 Dohle Bodies Not Reportable 08/26/20 05:04 Pelger-Huet Anomaly Not Reportable 08/26/20 05:04 Jannette Rods Not Reportable 08/26/20 05:04 Platelet Estimate Consistent w auto 08/26/20 05:04 Clumped Platelets Not Reportable 08/26/20 05:04 Plt Clumps, EDTA Not Reportable 08/26/20 05:04 Large Platelets Not Reportable 08/26/20 05:04 Giant Platelets Not Reportable 08/26/20 05:04 Platelet Satelliting Not Reportable 08/26/20 05:04 Plt Morphology Comment Not Reportable 08/26/20 05:04 RBC Morphology Not Reportable 08/26/20 05:04 Dimorphic RBCs Not Reportable 08/26/20 05:04 Polychromasia Not Reportable 08/26/20 05:04 Hypochromasia Not Reportable 08/26/20 05:04 Poikilocytosis Not Reportable 08/26/20 05:04 Anisocytosis 1+ 08/26/20 05:04 Microcytosis Not Reportable 08/26/20 05:04 Macrocytosis Not Reportable 08/26/20 05:04 Spherocytes Not Reportable 08/26/20 05:04 Pappenheimer Bodies Not Reportable 08/26/20 05:04 Sickle Cells Not Reportable 08/26/20 05:04 Target Cells Not Reportable 08/26/20 05:04 Tear Drop Cells Not Reportable 08/26/20 05:04 Ovalocytes Not Reportable 08/26/20 05:04 Helmet Cells Not Reportable 08/26/20 05:04 [place] Bodies Not Reportable 08/26/20 05:04 [place] Rings Not Reportable 08/26/20 05:04 [place] Cells Not Reportable 08/26/20 05:04 Bite Cells Not Reportable 08/26/20 05:04 Crenated Cell Not Reportable 08/26/20 05:04 Elliptocytes Not Reportable 08/26/20 05:04 Acanthocytes (Spur) Not Reportable 08/26/20 05:04 Rouleaux Not Reportable 08/26/20 05:04 Hemoglobin C Crystals Not Reportable 08/26/20 05:04 Schistocytes Not Reportable 08/26/20 05:04 Malaria parasites Not Reportable 08/26/20 05:04 Shabbir Bodies Not Reportable 08/26/20 05:04 Hem Pathologist Commnt No 08/26/20 05:04 D-Dimer > 43831 ng/mlDDU (0-234) H 08/25/20 11:23 ABG pH 7.451 pH Units (7.350-7.450) H 08/31/20 04:10 POC ABG pCO2 33.7 mmHg (32.0-48.0) 08/27/20 04:10 ABG pCO2 36.6 mm Hg 08/31/20 04:10 POC ABG pO2 74.9 mmHg (83-108) L 08/27/20 04:10 ABG pO2 99.6 mm Hg (80.0-90.0) H 08/31/20 04:10 POC ABG HCO3 23.1 08/27/20 04:10 ABG HCO3 24.9 mmol/L (20.0-26.0) 08/31/20 04:10 ABG O2 Saturation 97.7 % (95.0-99.0) 08/31/20 04:10 ABG O2 Content 11.6 (0.0-44) 08/31/20 04:10 POC ABG Base Excess -0.6 08/27/20 04:10 ABG Base Excess 1.0 mmol/L (-2.0-3.0) 08/31/20 04:10 ABG Hemoglobin 8.4 gm/dl (12.0-16.0) L 08/31/20 04:10 ABG Oxyhemoglobin 94.0 (94-98) 08/27/20 04:10 ABG Carboxyhemoglobin 1.4 % (0.0-5.0) 08/31/20 04:10 ABG Methemoglobin 0.5 % (0.0-1.5) 08/31/20 04:10 ABG Sodium 136.3 mmol/L (136.0-145.0) 08/27/20 04:10 ABG Potassium 3.8 mmol/L (3.40-4.50) 08/27/20 04:10 ABG Chloride 103.0 mmol/L (98-107) 08/27/20 04:10 ABG Glucose 117 mg/dL (65-95) H 08/27/20 04:10 Oxyhemoglobin 95.9 % (95.0-99.0) 08/31/20 04:10 Carboxyhemoglobin 0.8 (0.5-1.5) 08/27/20 04:10 FiO2 30 % 08/31/20 04:10 FiO2 % 40.0 08/27/20 04:10 Sodium 132 mmol/L (137-145) L 08/30/20 04:14 Potassium 3.8 mmol/L (3.6-5.0) 08/30/20 04:14 Chloride 94.8 mmol/L (98-107) L 08/30/20 04:14 Carbon Dioxide 25 mmol/L (22-30) 08/30/20 04:14 Anion Gap 16 mmol/L 08/30/20 04:14 BUN 68 mg/dL (7-17) H 08/30/20 04:14 Creatinine 3.7 mg/dL (0.6-1.2) H 08/30/20 04:14 Estimated GFR 12 ml/min 08/30/20 04:14 BUN/Creatinine Ratio 18 % 08/30/20 04:14 Glucose 214 mg/dL (65-100) H 08/30/20 04:14 POC Glucose 182 mg/dL (70-105) H 08/31/20 05:19 Lactic Acid 1.80 mmol/L (0.7-2.0) 08/25/20 12:45 Calcium 8.4 mg/dL (8.4-10.2) 08/30/20 04:14 Phosphorus 4.40 mg/dL (2.5-4.5) 08/29/20 04:32 Total Bilirubin < 0.20 mg/dL (0.1-1.2) 08/28/20 04:19 AST 37 units/L (5-40) 08/28/20 04:19 ALT 27 units/L (7-56) 08/28/20 04:19 Alkaline Phosphatase 84 units/L (35-129) 08/28/20 04:19 Troponin T 0.057 ng/mL (0.00-0.029) H 08/25/20 11:23 C-Reactive Protein 7.80 mg/dL (0.00-1.30) H 08/26/20 18:50 Total Protein 4.8 g/dL (6.3-8.2) L 08/28/20 04:19 Albumin 2.4 g/dL (3.9-5) L 08/28/20 04:19 Albumin/Globulin Ratio 1.0 % 08/28/20 04:19 Triglycerides 111 mg/dL (2-149) 08/29/20 04:32 Cholesterol 158 mg/dL (50-199) 08/25/20 11:23 LDL Cholesterol Direct 101 mg/dL (50-130) 08/25/20 11:23 HDL Cholesterol 50 mg/dL (40-59) 08/25/20 11:23 Cholesterol/HDL Ratio 3.16 % 08/25/20 11:23 Procalcitonin 0.41 ng/mL (<0.15) 08/26/20 18:50 Arterial Blood Glucose 117 mg/dL (65-95) H 08/27/20 04:10 Arterial Blood Ionized Calcium 4.4 mg/dL (4.6-5.3) L 08/27/20 04:10 Urine Color Yellow (Yellow) 08/25/20 11:17 Urine Turbidity Cloudy (Clear) 08/25/20 11:17 Urine pH 7.0 (5.0-7.0) 08/25/20 11:17 Ur Specific [place] 1.012 (1.003-1.030) 08/25/20 11:17 Urine Protein >500 mg/dL (Negative) 08/25/20 11:17 Urine Glucose (UA) >=500 mg/dL (Negative) 08/25/20 11:17 Urine Ketones Neg mg/dL (Negative) 08/25/20 11:17 Urine Blood Sm (Negative) 08/25/20 11:17 Urine Nitrite Neg (Negative) 08/25/20 11:17 Urine Bilirubin Neg (Negative) 08/25/20 11:17 Urine Urobilinogen < 2.0 mg/dL (<2.0) 08/25/20 11:17 Ur Leukocyte Esterase Neg (Negative) 08/25/20 11:17 Urine WBC (Auto) 31.0 /HPF (0.0-6.0) H 08/25/20 11:17 Urine RBC (Auto) 28.0 /HPF (0.0-6.0) 08/25/20 11:17 U Epithel Cells (Auto) 5.0 /HPF (0-13.0) 08/25/20 11:17 Urine Bacteria (Auto) 1+ /HPF (Negative) 08/25/20 11:17 Urine WBC Clumps Few /HPF 08/25/20 11:17 Ur Renal Epithelial Cell 4 /LPF 08/25/20 11:17 Hyaline Casts 28 /LPF 08/25/20 11:17 Urine Creatinine 67.4 mg/dL (0.1-20.0) H 08/26/20 17:00 Urine Sodium 12 mmol/L 08/26/20 17:00 Coronavirus (PCR) Negative (Negative) 08/26/20 Unknown Microbiology: Microbiology 08/25/20 11:23 Peripheral/Venous Blood Culture - Final NO GROWTH AFTER 5 DAYS 08/25/20 11:23 Peripheral/Venous Blood Culture - Final NO GROWTH AFTER 5 DAYS Foreman/IV: Voiding Method External Female Catheter Active Medications - Current Medications Current Medications: Generic Name Dose Route Start Last Admin Trade Name Freq PRN Reason Stop Dose Admin Albuterol 2.5 mg 08/25/20 14:55 Albuterol 2.5 Mg/3 Ml Nebu IH Q3HRT PRN Shortness Of Breath Amlodipine Besylate 5 mg 08/28/20 10:00 08/31/20 11:08 Amlodipine 5 Mg Tab PO 5 mg QDAY TERA Administration Lipase/Protease/Amylase 1 each 08/26/20 12:15 Lipase 10,500/Protease 25,000/Amylase 43,750 (Units) Dr Riccardo PHOENIXTUBE PRN PRN For Clogged Feeding Tube Aspirin 81 mg 08/27/20 10:00 08/31/20 11:09 Aspirin 81 Mg Tab Chew PO 81 mg QDAY TERA Administration Atorvastatin Calcium 40 mg 08/26/20 22:00 08/30/20 21:44 Atorvastatin 40 Mg Tab PO 40 mg QHS TERA Administration Dextrose 50 ml 08/26/20 19:18 Dextrose 50% In Water (25gm) 50 Ml Syringe IV Q30MIN PRN Hypoglycemia Protocol Famotidine 20 mg 08/28/20 10:00 08/30/20 09:51 Famotidine 20 Mg Tab PO 20 mg DAILY TERA Administration Heparin Sodium (Porcine) 5,000 unit 08/26/20 22:00 08/31/20 11:09 Heparin 5,000 Unit/1 Ml Vial SUB-Q 5,000 unit Q12HR TERA Administration Hydralazine HCl 10 mg 08/26/20 01:20 08/31/20 08:45 Hydralazine 20 Mg/1 Ml Inj IV 10 mg Q4HR PRN Administration Blood Pressure Hydralazine HCl 100 mg 08/31/20 14:00 Hydralazine 100 Mg Tab PO TID TERA Hydrophilic Ointment 1 applic 08/25/20 11:07 08/25/20 11:57 Lip Therapy Vaseline TP 1 applic Q2HR PRN Administration Dry Lips Insulin Glargine 15 units 08/30/20 22:00 08/30/20 21:41 Insulin Glargine 100 Units/Ml SUB-Q 15 units QHS TERA Administration Insulin Human Lispro 0 unit 08/27/20 12:00 08/31/20 06:30 Insulin Lispro 100 Unit/Ml SUB-Q 2 unit Q6HR TERA Administration Protocol Levetiracetam 500 mg 08/30/20 10:00 08/31/20 11:08 Levetiracetam 500 Mg/5 Ml Oral Liqd PO 500 mg BID TERA Administration Metoprolol Tartrate 12.5 mg 08/29/20 22:00 08/31/20 11:09 Metoprolol Tartrate 25 Mg Tab PO 12.5 mg BID TERA Administration Multi-Ingred Cream/Lotion/Oil/Oint 1 applic 08/25/20 11:07 Mineral Oil/Petrolatum, White Ophth Oint 3.5 Gm OU Q4HR PRN Dry Eye(s) Senna/Docusate Sodium 1 tab 08/25/20 22:00 08/31/20 11:08 Sennosides/Docusate Sodium 8.6/50 Mg Tab FEEDTUBE 1 tab BID TERA Administration Simple Syrup 15 ml 08/26/20 12:15 Simple Syrup 15 Ml FEEDTUBE PRN PRN Hypoglycemia Simple Syrup 30 ml 08/26/20 12:15 Simple Syrup 15 Ml FEEDTUBE PRN PRN Hypoglycemia Sodium Bicarbonate 325 mg 08/26/20 12:15 Sodium Bicarbonate 325 Mg Tab FEEDTUBE PRN PRN For Clogged Feeding Tube Sodium Chloride 10 ml 08/25/20 22:00 08/31/20 00:41 Sodium Chloride 0.9% 10 Ml Flush Syringe IV 10 ml BID TERA Administration Sodium Chloride 10 ml 08/25/20 14:55 08/29/20 04:05 Sodium Chloride 0.9% 10 Ml Flush Syringe IV 10 ml PRN PRN Administration LINE FLUSH Nutrition/Malnutrition Assess - Dietary Evaluation Nutrition/Malnutrition Findings: Nutrition Notes Start: 08/26/20 10:21 Freq: Status: Active Protocol: Document 08/30/20 13:05 CW (Rec: 08/30/20 13:09 CW [email or web address]) Nutrition Notes Initial or Follow up Reassessment Current Diagnosis Acute Kidney Injury,CKD(stage I-IV),Diabetes,Hypertension, Heart Failure,Respiratory Failure Other Pertinent Diagnosis cardiac arrest, acute encephalopathy, pneu, anoxIC brain injury, GERD Current Diet Nepro 1.8 at 30 ml/hr Labs/Tests Na 132 BUN 68 Cr 3.7 BG 214 Pertinent Medications Humalog Senokot Height 5 ft 5 in Weight 92.1 kg [place] Body Weight (kg) 56.81 BMI 33.7 Weight Status Obese Subjective/Other Information F/U for TF tolerance. Pt no longer recieving propofol. TF running at goal of 30. Percent of energy/protein needs met: 100%/58% Burn Absent Trauma Absent Current % PO Negligible Minimum of two criteria No physical signs of malnutrition #1 Nutrition Diagnosis Inadequate oral intake Diagnosis Progress(for reassessment Continues documentation) Is patient on ventilator? Yes Is Patient Ambulatory and/or Out of Bed No REE-([place]-St. Jeor-confined to bed) 1700.436 Kcal/Kg value to use for calculation 14 Approximate Energy Requirements Using 1289 kcal/Kg Calculation Used for Recommendations Kcal/kg Additional Notes protein needs: >114g (>2 g/ kgIBW) fluid needs 1500 - 1900 ml or per MD order Nutrition Intervention Change Diet Order: Continue TF Nutrition Support: Nepro at 30 ml/hr with a free water flush of 130 ml q4h Kcal 1,296 Protein (gm) 58 Fluid (mL) 523 Goal #1 Meet at least 75% of kcal and protein needs as best as possible Anticipated Discharge Needs: unable to determine at this time Follow-Up By: 09/01/20 Additional Comments F/U for TF tolerance - Attestation Statement I have reviewed and agreed w/ Malnutrition eval & tx plan: Yes <AMEBR GONZALEZ - Last Filed: 08/31/20 16:31> Assessment and Plan Assessment and plan: Patient seen and examined, family at the bedside, questions answered. Agree with assessment and plan as outlined by nurse practitioner. Patient family needs to make a decision on the patient's care. No change with the patient, continues to be intubated, no neurological response. Hospitalist Physical - Constitutional Vitals: Temp Pulse Resp BP Pulse Ox 97.7 F 60 18 163/77 99 08/31/20 12:00 08/31/20 16:26 08/31/20 16:01 08/31/20 16:26 08/31/20 16:26 HEART Score - HEART Score Troponin: Troponin T 0.057 ng/mL (0.00-0.029) H 08/25/20 11:23 Results - Labs CBC & Chem 7: 08/31/20 10:57 08/31/20 10:57 Labs: Laboratory Last Values WBC 11.4 K/mm3 (4.5-11.0) H 08/31/20 10:57 RBC 3.24 M/mm3 (3.65-5.03) L 08/31/20 10:57 Hgb 8.5 gm/dl (10.1-14.3) L 08/31/20 10:57 Hct 26.6 % (30.3-42.9) L 08/31/20 10:57 MCV 82 fl (79-97) 08/31/20 10:57 MCH 26 pg (28-32) L 08/31/20 10:57 MCHC 32 % (30-34) 08/31/20 10:57 RDW 15.6 % (13.2-15.2) H 08/31/20 10:57 Plt Count 258 K/mm3 (140-440) 08/31/20 10:57 Lymph % (Auto) 5.9 % (13.4-35.0) L 08/27/20 07:24 [place] % (Auto) 4.6 % (0.0-7.3) 08/27/20 07:24 Eos % (Auto) 2.2 % (0.0-4.3) 08/27/20 07:24 Baso % (Auto) 0.4 % (0.0-1.8) 08/27/20 07:24 Lymph # (Auto) 0.8 K/mm3 (1.2-5.4) L 08/27/20 07:24 [place] # (Auto) 0.6 K/mm3 (0.0-0.8) 08/27/20 07:24 Eos # (Auto) 0.3 K/mm3 (0.0-0.4) 08/27/20 07:24 Baso # (Auto) 0.0 K/mm3 (0.0-0.1) 08/27/20 07:24 Add Manual Diff Complete 08/26/20 05:04 Total Counted 100 08/26/20 05:04 Seg Neutrophils % 86.9 % (40.0-70.0) H 08/27/20 07:24 Seg Neuts % (Manual) 96.0 % (40.0-70.0) H 08/26/20 05:04 Band Neutrophils % 2.0 % 08/25/20 11:23 Lymphocytes % (Manual) 1.0 % (13.4-35.0) L 08/26/20 05:04 Monocytes % (Manual) 3.0 % (0.0-7.3) 08/26/20 05:04 Eosinophils % (Manual) 3.0 % (0.0-4.3) 08/25/20 11:23 Metamyelocytes % 1.0 % 08/25/20 11:23 Nucleated RBC % Not Reportable 08/26/20 05:04 Seg Neutrophils # 11.0 K/mm3 (1.8-7.7) H 08/27/20 07:24 Seg Neutrophils # Man 17.2 K/mm3 (1.8-7.7) H 08/26/20 05:04 Band Neutrophils # 0.0 K/mm3 08/26/20 05:04 Lymphocytes # (Manual) 0.2 K/mm3 (1.2-5.4) L 08/26/20 05:04 Abs React Lymphs (Man) 0.0 K/mm3 08/26/20 05:04 Monocytes # (Manual) 0.5 K/mm3 (0.0-0.8) 08/26/20 05:04 Eosinophils # (Manual) 0.0 K/mm3 (0.0-0.4) 08/26/20 05:04 Basophils # (Manual) 0.0 K/mm3 (0.0-0.1) 08/26/20 05:04 Metamyelocytes # 0.0 K/mm3 08/26/20 05:04 Myelocytes # 0.0 K/mm3 08/26/20 05:04 Promyelocytes # 0.0 K/mm3 08/26/20 05:04 Blast Cells # 0.0 K/mm3 08/26/20 05:04 WBC Morphology Not Reportable 08/26/20 05:04 Hypersegmented Neuts Not Reportable 08/26/20 05:04 Hyposegmented Neuts Not Reportable 08/26/20 05:04 Hypogranular Neuts Not Reportable 08/26/20 05:04 Smudge Cells Not Reportable 08/26/20 05:04 Toxic Granulation Not Reportable 08/26/20 05:04 Toxic Vacuolation Not Reportable 08/26/20 05:04 Dohle Bodies Not Reportable 08/26/20 05:04 Pelger-Huet Anomaly Not Reportable 08/26/20 05:04 Jannette Rods Not Reportable 08/26/20 05:04 Platelet Estimate Consistent w auto 08/26/20 05:04 Clumped Platelets Not Reportable 08/26/20 05:04 Plt Clumps, EDTA Not Reportable 08/26/20 05:04 Large Platelets Not Reportable 08/26/20 05:04 Giant Platelets Not Reportable 08/26/20 05:04 Platelet Satelliting Not Reportable 08/26/20 05:04 Plt Morphology Comment Not Reportable 08/26/20 05:04 RBC Morphology Not Reportable 08/26/20 05:04 Dimorphic RBCs Not Reportable 08/26/20 05:04 Polychromasia Not Reportable 08/26/20 05:04 Hypochromasia Not Reportable 08/26/20 05:04 Poikilocytosis Not Reportable 08/26/20 05:04 Anisocytosis 1+ 08/26/20 05:04 Microcytosis Not Reportable 08/26/20 05:04 Macrocytosis Not Reportable 08/26/20 05:04 Spherocytes Not Reportable 08/26/20 05:04 Pappenheimer Bodies Not Reportable 08/26/20 05:04 Sickle Cells Not Reportable 08/26/20 05:04 Target Cells Not Reportable 08/26/20 05:04 Tear Drop Cells Not Reportable 08/26/20 05:04 Ovalocytes Not Reportable 08/26/20 05:04 Helmet Cells Not Reportable 08/26/20 05:04 [place] Bodies Not Reportable 08/26/20 05:04 [place] Rings Not Reportable 08/26/20 05:04 [place] Cells Not Reportable 08/26/20 05:04 Bite Cells Not Reportable 08/26/20 05:04 Crenated Cell Not Reportable 08/26/20 05:04 Elliptocytes Not Reportable 08/26/20 05:04 Acanthocytes (Spur) Not Reportable 08/26/20 05:04 Rouleaux Not Reportable 08/26/20 05:04 Hemoglobin C Crystals Not Reportable 08/26/20 05:04 Schistocytes Not Reportable 08/26/20 05:04 Malaria parasites Not Reportable 08/26/20 05:04 [place] Bodies Not Reportable 08/26/20 05:04 Hem Pathologist Commnt No 08/26/20 05:04 D-Dimer > 26681 ng/mlDDU (0-234) H 08/25/20 11:23 ABG pH 7.451 pH Units (7.350-7.450) H 08/31/20 04:10 POC ABG pCO2 33.7 mmHg (32.0-48.0) 08/27/20 04:10 ABG pCO2 36.6 mm Hg 08/31/20 04:10 POC ABG pO2 74.9 mmHg (83-108) L 08/27/20 04:10 ABG pO2 99.6 mm Hg (80.0-90.0) H 08/31/20 04:10 POC ABG HCO3 23.1 08/27/20 04:10 ABG HCO3 24.9 mmol/L (20.0-26.0) 08/31/20 04:10 ABG O2 Saturation 97.7 % (95.0-99.0) 08/31/20 04:10 ABG O2 Content 11.6 (0.0-44) 08/31/20 04:10 POC ABG Base Excess -0.6 08/27/20 04:10 ABG Base Excess 1.0 mmol/L (-2.0-3.0) 08/31/20 04:10 ABG Hemoglobin 8.4 gm/dl (12.0-16.0) L 08/31/20 04:10 ABG Oxyhemoglobin 94.0 (94-98) 08/27/20 04:10 ABG Carboxyhemoglobin 1.4 % (0.0-5.0) 08/31/20 04:10 ABG Methemoglobin 0.5 % (0.0-1.5) 08/31/20 04:10 ABG Sodium 136.3 mmol/L (136.0-145.0) 08/27/20 04:10 ABG Potassium 3.8 mmol/L (3.40-4.50) 08/27/20 04:10 ABG Chloride 103.0 mmol/L (98-107) 08/27/20 04:10 ABG Glucose 117 mg/dL (65-95) H 08/27/20 04:10 Oxyhemoglobin 95.9 % (95.0-99.0) 08/31/20 04:10 Carboxyhemoglobin 0.8 (0.5-1.5) 08/27/20 04:10 FiO2 30 % 08/31/20 04:10 FiO2 % 40.0 08/27/20 04:10 Sodium 133 mmol/L (137-145) L 08/31/20 10:57 Potassium 3.7 mmol/L (3.6-5.0) 08/31/20 10:57 Chloride 96.4 mmol/L (98-107) L 08/31/20 10:57 Carbon Dioxide 24 mmol/L (22-30) 08/31/20 10:57 Anion Gap 16 mmol/L 08/31/20 10:57 BUN 74 mg/dL (7-17) H 08/31/20 10:57 Creatinine 3.8 mg/dL (0.6-1.2) H 08/31/20 10:57 Estimated GFR 12 ml/min 08/31/20 10:57 BUN/Creatinine Ratio 19 % 08/31/20 10:57 Glucose 201 mg/dL (65-100) H 08/31/20 10:57 POC Glucose 217 mg/dL (70-105) H 08/31/20 12:32 Lactic Acid 1.80 mmol/L (0.7-2.0) 08/25/20 12:45 Calcium 7.6 mg/dL (8.4-10.2) L 08/31/20 10:57 Phosphorus 4.40 mg/dL (2.5-4.5) 08/29/20 04:32 Total Bilirubin < 0.20 mg/dL (0.1-1.2) 08/28/20 04:19 AST 37 units/L (5-40) 08/28/20 04:19 ALT 27 units/L (7-56) 08/28/20 04:19 Alkaline Phosphatase 84 units/L (35-129) 08/28/20 04:19 Troponin T 0.057 ng/mL (0.00-0.029) H 08/25/20 11:23 C-Reactive Protein 7.80 mg/dL (0.00-1.30) H 08/26/20 18:50 Total Protein 4.8 g/dL (6.3-8.2) L 08/28/20 04:19 Albumin 2.4 g/dL (3.9-5) L 08/28/20 04:19 Albumin/Globulin Ratio 1.0 % 08/28/20 04:19 Triglycerides 111 mg/dL (2-149) 08/29/20 04:32 Cholesterol 158 mg/dL (50-199) 08/25/20 11:23 LDL Cholesterol Direct 101 mg/dL (50-130) 08/25/20 11:23 HDL Cholesterol 50 mg/dL (40-59) 08/25/20 11:23 Cholesterol/HDL Ratio 3.16 % 08/25/20 11:23 Procalcitonin 0.41 ng/mL (<0.15) 08/26/20 18:50 Arterial Blood Glucose 117 mg/dL (65-95) H 08/27/20 04:10 Arterial Blood Ionized Calcium 4.4 mg/dL (4.6-5.3) L 08/27/20 04:10 Urine Color Yellow (Yellow) 08/25/20 11:17 Urine Turbidity Cloudy (Clear) 08/25/20 11:17 Urine pH 7.0 (5.0-7.0) 08/25/20 11:17 Ur Specific [place] 1.012 (1.003-1.030) 08/25/20 11:17 Urine Protein >500 mg/dL (Negative) 08/25/20 11:17 Urine Glucose (UA) >=500 mg/dL (Negative) 08/25/20 11:17 Urine Ketones Neg mg/dL (Negative) 08/25/20 11:17 Urine Blood Sm (Negative) 08/25/20 11:17 Urine Nitrite Neg (Negative) 08/25/20 11:17 Urine Bilirubin Neg (Negative) 08/25/20 11:17 Urine Urobilinogen < 2.0 mg/dL (<2.0) 08/25/20 11:17 Ur Leukocyte Esterase Neg (Negative) 08/25/20 11:17 Urine WBC (Auto) 31.0 /HPF (0.0-6.0) H 08/25/20 11:17 Urine RBC (Auto) 28.0 /HPF (0.0-6.0) 08/25/20 11:17 U Epithel Cells (Auto) 5.0 /HPF (0-13.0) 08/25/20 11:17 Urine Bacteria (Auto) 1+ /HPF (Negative) 08/25/20 11:17 Urine WBC Clumps Few /HPF 08/25/20 11:17 Ur Renal Epithelial Cell 4 /LPF 08/25/20 11:17 Hyaline Casts 28 /LPF 08/25/20 11:17 Urine Creatinine 67.4 mg/dL (0.1-20.0) H 08/26/20 17:00 Urine Sodium 12 mmol/L 08/26/20 17:00 Coronavirus (PCR) Negative (Negative) 08/26/20 Unknown Foreman/IV: Voiding Method Indwelling Catheter Active Medications - Current Medications Current Medications: Generic Name Dose Route Start Last Admin Trade Name Freq PRN Reason Stop Dose Admin Albuterol 2.5 mg 08/25/20 14:55 Albuterol 2.5 Mg/3 Ml Nebu IH Q3HRT PRN Shortness Of Breath Amlodipine Besylate 5 mg 08/28/20 10:00 08/31/20 11:08 Amlodipine 5 Mg Tab PO 5 mg QDAY TERA Administration Lipase/Protease/Amylase 1 each 08/26/20 12:15 Lipase 10,500/Protease 25,000/Amylase 43,750 (Units) Dr Gu FEEDTUBE PRN PRN For Clogged Feeding Tube Aspirin 81 mg 08/27/20 10:00 08/31/20 11:09 Aspirin 81 Mg Tab Chew PO 81 mg QDAY TERA Administration Atorvastatin Calcium 40 mg 08/26/20 22:00 08/30/20 21:44 Atorvastatin 40 Mg Tab PO 40 mg QHS TERA Administration Dextrose 50 ml 08/26/20 19:18 Dextrose 50% In Water (25gm) 50 Ml Syringe IV Q30MIN PRN Hypoglycemia Protocol Famotidine 20 mg 08/28/20 10:00 08/31/20 13:40 Famotidine 20 Mg Tab PO 20 mg DAILY TERA Administration Heparin Sodium (Porcine) 5,000 unit 08/26/20 22:00 08/31/20 11:09 Heparin 5,000 Unit/1 Ml Vial SUB-Q 5,000 unit Q12HR TERA Administration Hydralazine HCl 10 mg 08/26/20 01:20 08/31/20 08:45 Hydralazine 20 Mg/1 Ml Inj IV 10 mg Q4HR PRN Administration Blood Pressure Hydralazine HCl 100 mg 08/31/20 14:00 08/31/20 14:10 Hydralazine 100 Mg Tab PO 100 mg TID TERA Administration Hydrophilic Ointment 1 applic 08/25/20 11:07 08/25/20 11:57 Lip Therapy Vaseline TP 1 applic Q2HR PRN Administration Dry Lips Lacosamide 100 mg/ Sodium 110 mls @ 100 mls/hr 08/31/20 14:00 08/31/20 14:10 Chloride IV 09/01/20 23:05 100 mls/hr Q12HR TERA Administration Insulin Glargine 20 units 08/31/20 22:00 Insulin Glargine 100 Units/Ml SUB-Q QHS TERA Insulin Human Lispro 0 unit 08/27/20 12:00 08/31/20 12:53 Insulin Lispro 100 Unit/Ml SUB-Q 2 unit Q6HR [facility] Administration Protocol Lacosamide 100 mg 09/02/20 10:00 Lacosamide 100 Mg Tab PO Q12HR [facility] Levetiracetam 750 mg 08/31/20 13:00 08/31/20 13:40 Levetiracetam 500 Mg/5 Ml Oral Liqd PO 750 mg BID TERA Administration Metoprolol Tartrate 12.5 mg 08/29/20 22:00 08/31/20 11:09 Metoprolol Tartrate 25 Mg Tab PO 12.5 mg BID TERA Administration Multi-Ingred Cream/Lotion/Oil/Oint 1 applic 08/25/20 11:07 Mineral Oil/Petrolatum, White Ophth Oint 3.5 Gm OU Q4HR PRN Dry Eye(s) Senna/Docusate Sodium 1 tab 08/25/20 22:00 08/31/20 11:08 Sennosides/Docusate Sodium 8.6/50 Mg Tab FEEDTUBE 1 tab BID TERA Administration Simple Syrup 15 ml 08/26/20 12:15 Simple Syrup 15 Ml FEEDTUBE PRN PRN Hypoglycemia Simple Syrup 30 ml 08/26/20 12:15 Simple Syrup 15 Ml FEEDTUBE PRN PRN Hypoglycemia Sodium Bicarbonate 325 mg 08/26/20 12:15 Sodium Bicarbonate 325 Mg Tab FEEDTUBE PRN PRN For Clogged Feeding Tube Sodium Chloride 10 ml 08/25/20 22:00 08/31/20 13:44 Sodium Chloride 0.9% 10 Ml Flush Syringe IV 10 ml BID TERA Administration Sodium Chloride 10 ml 08/25/20 14:55 08/29/20 04:05 Sodium Chloride 0.9% 10 Ml Flush Syringe IV 10 ml PRN PRN Administration LINE FLUSH Tamsulosin HCl 0.4 mg 08/31/20 15:00 Tamsulosin 0.4 Mg Cap PO QDAY [facility] Nutrition/Malnutrition Assess - Dietary Evaluation Nutrition/Malnutrition Findings: Nutrition Notes Start: 08/26/20 10:21 Freq: Status: Active Protocol: Document 08/30/20 13:05 CW (Rec: 08/30/20 13:09 CW [id number]) Nutrition Notes Initial or Follow up Reassessment Current Diagnosis Acute Kidney Injury,CKD(stage I-IV),Diabetes,Hypertension, Heart Failure,Respiratory Failure Other Pertinent Diagnosis cardiac arrest, acute encephalopathy, pneu, anoxIC brain injury, GERD Current Diet Nepro 1.8 at 30 ml/hr Labs/Tests Na 132 BUN 68 Cr 3.7 BG 214 Pertinent Medications Humalog Senokot Height 5 ft 5 in Weight 92.1 kg [place] Body Weight (kg) 56.81 BMI 33.7 Weight Status Obese Subjective/Other Information F/U for TF tolerance. Pt no longer recieving propofol. TF running at goal of 30. Percent of energy/protein needs met: 100%/58% Burn Absent Trauma Absent Current % PO Negligible Minimum of two criteria No physical signs of malnutrition #1 Nutrition Diagnosis Inadequate oral intake Diagnosis Progress(for reassessment Continues documentation) Is patient on ventilator? Yes Is Patient Ambulatory and/or Out of Bed No REE-([place]-confined to bed) [phone] Kcal/Kg value to use for calculation 14 Approximate Energy Requirements Using 1289 kcal/Kg Calculation Used for Recommendations Kcal/kg Additional Notes protein needs: >114g (>2 g/ kgIBW) fluid needs 1500 - 1900 ml or per MD order Nutrition Intervention Change Diet Order: Continue TF Nutrition Support: Nepro at 30 ml/hr with a free water flush of 130 ml q4h Kcal 1,296 Protein (gm) 58 Fluid (mL) 523 Goal #1 Meet at least 75% of kcal and protein needs as best as possible Anticipated Discharge Needs: unable to determine at this time Follow-Up By: 09/01/20 Additional Comments F/U for TF tolerance
[2020-08-31 12:16] LABS: Calcium 7.6 mg/dL (8.4-10.2)
[2020-08-31 12:30] LABS: Hematocrit 26.6 % (30.3-42.9); Hemoglobin 8.5 gm/dl (10.1-14.3); Mean Corpuscular HGB Conc 32 % (30-34); Mean Corpuscular Volume 82 fl (79-97); Platelet Count 258 K/mm3 (140-440); Red Blood Count 3.24 M/mm3 (3.65-5.03); Red Cell Distribution Width 15.6 % (13.2-15.2)
[2020-08-31] MEDS ORDERED: LORazepam 2 MG/ML VIAL IV ONE (12:32)
--- NOTE | 2020-08-31 12:56 | Progress Note ---
Assessment and Plan Acute hypoxemic respiratory failure Cardiac arrest with ROSC Acute encephalopathy Multifocal pneumonia Possible bilateral pulmonary edema Congestive heart failure with an acute exacerbation Anemia Hyperkalemia Lactic acidosis Acute kidney injury Elevated serum transaminases Non-ST elevation CA Oropharyngeal dysphagia - increased Keppra to 750 mg bid - add Vimpat - increased Lantus for tighter glycemic control - add Flomax for retention - continue neurology evaluation - continue Daily SAT and SBT assessment as tolerated meantime - US chest re-ordered - she will likely need a tracheostomy tube if AMS is persistent - continue care as below otherwise; - continue to wean supplemental oxygen for target O2 sat's > 92% acutely - VAP bundle addressed - continue lung protective strategies - continue bronchodilators with pulmonary hygiene per RT - wean per pulmonary driven protocols otherwise - continue accuchecks with glycemic control per SSI (While critically ill target blood glucose of 140-180 mg/dL; avoid hypoglycemia) - sedation prn for target RASS -1 to -2 - avoid nephrotoxins, renally dose all medications - continue to avoid benzodiazepine's, reduce the possibility of delirium - complete AB's per ID rec's - prn analgesia per CPOT score - Maintenance of sleep-wake cycle, avoid delirium - enteral nutritional support at goal rate as tolerated - G.I. & VTE prophylaxis - PT/OT/ROM exercises - continue mobility protocols for pressure ulcer prophylaxis - Monitor hemodynamics closely - continue other care per attending / other consultants - discharge planning ongoing concurrently COVID SPECIFIC INTERVENTIONS - COVID-19 PCR negative .... Re-evaluate in am & prn CONDITION: CRITICAL PROGNOSIS: GUARDED CODE STATUS: FULL CODE The high probability of a clinically significant, sudden or life-threatening deterioration of the [respiratory, cardiovascular & neurologic] system(s) r equired my full and direct attention, intervention and personal management. The aggregate critical care time was [32] minutes without overlap. Time includes spent on; [x] Data Review and interpretation [x] Patient assessment and monitoring of vital signs [x] Documentation [x] Medication orders and management Subjective Date of service: 08/31/20 Principal diagnosis: Ac. hypoxemic resp failure; Cardiac arrest; AMS; AE-CHF; Hyperkalemia; FLORIDALMA Interval history: Patient is seen today for: Acute hypoxemic respiratory failure; Cardiac arrest with ROSC; Acute encephalopathy; Multifocal pneumonia; pulmonary edema; AE-CHF; Hyperkalemia; FLORIDALMA; NSTEMI Seen and examined at bedside; 24hour events reviewed; nursing and respiratory care staff consulted; no adverse overnight events reported to me; resting in bed; remains on MVS; foreman replaced due to retention; failed SBT after a couple hours; family still contemplating end-of-life issues; seizure activity noted to left body & face; sugars running on high side Objective Vital Signs - 12hr 08/31/20 08/31/20 08/31/20 01:01 01:31 02:01 Temperature Pulse Rate 82 81 77 Pulse Rate [ From Monitor] Respiratory 26 H 24 22 Rate Blood Pressure 178/72 183/74 174/69 O2 Sat by Pulse 98 98 99 Oximetry 08/31/20 08/31/20 08/31/20 02:30 03:01 03:31 Temperature Pulse Rate 76 78 72 Pulse Rate [ From Monitor] Respiratory 23 23 22 Rate Blood Pressure 171/75 171/75 153/63 O2 Sat by Pulse 99 99 98 Oximetry 08/31/20 08/31/20 08/31/20 03:40 04:00 04:01 Temperature 99.1 F Pulse Rate 77 71 Pulse Rate [ 83 From Monitor] Respiratory 16 18 Rate Blood Pressure 133/55 O2 Sat by Pulse 99 99 Oximetry 08/31/20 08/31/20 08/31/20 04:11 04:31 05:01 Temperature Pulse Rate 70 77 70 Pulse Rate [ From Monitor] Respiratory 22 16 Rate Blood Pressure 133/55 133/55 123/63 O2 Sat by Pulse 99 99 99 Oximetry 08/31/20 08/31/20 08/31/20 05:31 06:01 06:29 Temperature Pulse Rate 73 86 77 Pulse Rate [ From Monitor] Respiratory 19 19 Rate Blood Pressure 115/55 151/52 151/52 O2 Sat by Pulse 99 98 Oximetry 08/31/20 08/31/20 08/31/20 06:31 07:01 07:30 Temperature Pulse Rate 76 71 70 Pulse Rate [ From Monitor] Respiratory 19 20 19 Rate Blood Pressure 186/65 148/55 148/56 O2 Sat by Pulse 97 98 98 Oximetry 08/31/20 08/31/20 08/31/20 08:00 08:01 08:24 Temperature 98.3 F Pulse Rate 80 74 Pulse Rate [ 72 From Monitor] Respiratory 16 23 19 Rate Blood Pressure 214/90 211/78 O2 Sat by Pulse 99 96 99 Oximetry 08/31/20 08/31/20 08/31/20 08:31 08:45 11:08 Temperature Pulse Rate 74 70 66 Pulse Rate [ From Monitor] Respiratory 19 Rate Blood Pressure 211/79 207/83 142/57 O2 Sat by Pulse 96 Oximetry 08/31/20 08/31/20 08/31/20 11:09 12:00 12:05 Temperature 97.7 F Pulse Rate 66 60 Pulse Rate [ From Monitor] Respiratory 15 Rate Blood Pressure 142/57 129/57 O2 Sat by Pulse 100 Oximetry Constitutional: no acute distress, other (elderly obese female with mildly increased respirtatory effort at rest on MVS ) Eyes: non-icteric ENT: oropharynx moist, oropharyngeal exudate pre (mild), other (ETT 24 cm DIMAS) Neck: supple, no lymphadenopathy, no JVD Effort: mildly labored Ascultation: Bilateral: diminished breath sounds, rhonchi Percussion: Bilateral: not dull Cardiovascular: regular rate and rhythm Gastrointestinal: normoactive bowel sounds, soft, non-tender, non-distended Integumentary: normal Extremities: no cyanosis, no edema, pulses normal, no ischemia or petechiae Neurologic: non-focal exam (grossly), pupils equal and round, unable to assess, other (twitches & tremors to left face) Psychiatric: other (unable to assess re: AMS) CBC and BMP: 08/31/20 10:57 08/31/20 10:57 ABG, PT/INR, D-dimer: ABG ABG pH 7.451 pH Units (7.350-7.450) H 08/31/20 04:10 POC ABG pCO2 33.7 mmHg (32.0-48.0) 08/27/20 04:10 ABG pCO2 36.6 mm Hg 08/31/20 04:10 POC ABG pO2 74.9 mmHg (83-108) L 08/27/20 04:10 ABG pO2 99.6 mm Hg (80.0-90.0) H 08/31/20 04:10 POC ABG HCO3 23.1 08/27/20 04:10 ABG O2 Saturation 97.7 % (95.0-99.0) 08/31/20 04:10 PT/INR, D-dimer D-Dimer > 66647 ng/mlDDU (0-234) H 08/25/20 11:23 Abnormal lab findings: Abnormal Labs 08/25/20 08/25/20 08/25/20 11:14 11:17 11:23 WBC 11.5 H RBC 3.22 L Hgb 8.6 L Hct 27.6 L MCH 27 L RDW 15.6 H Lymph % (Auto) Lymph # (Auto) Seg Neutrophils % Seg Neuts % (Manual) 89.0 H Lymphocytes % (Manual) 5.0 L Seg Neutrophils # Seg Neutrophils # Man 10.2 H Lymphocytes # (Manual) 0.6 L D-Dimer ABG pH 7.290 L POC ABG pO2 161.1 H ABG pO2 ABG HCO3 ABG Hemoglobin 8.9 L ABG Oxyhemoglobin 98.6 H ABG Sodium 135.2 L ABG Potassium 5.9 H ABG Glucose 210 H Oxyhemoglobin Carboxyhemoglobin 0.4 L Sodium Potassium Chloride Carbon Dioxide BUN Creatinine Glucose POC Glucose Lactic Acid Calcium AST ALT Troponin T C-Reactive Protein Total Protein Albumin Arterial Blood Glucose 210 H Arterial Blood Ionized Calcium 4.4 L Urine WBC (Auto) 31.0 H Urine Creatinine 08/25/20 08/25/20 08/25/20 11:23 11:23 11:23 WBC RBC Hgb Hct MCH RDW Lymph % (Auto) Lymph # (Auto) Seg Neutrophils % Seg Neuts % (Manual) Lymphocytes % (Manual) Seg Neutrophils # Seg Neutrophils # Man Lymphocytes # (Manual) D-Dimer > 52719 H ABG pH POC ABG pO2 ABG pO2 ABG HCO3 ABG Hemoglobin ABG Oxyhemoglobin ABG Sodium ABG Potassium ABG Glucose Oxyhemoglobin Carboxyhemoglobin Sodium Potassium 6.4 H* Chloride Carbon Dioxide 21 L BUN 52 H Creatinine 3.5 H Glucose 194 H POC Glucose Lactic Acid 3.30 H* Calcium 8.1 L AST 103 H ALT 77 H Troponin T 0.057 H C-Reactive Protein Total Protein 5.8 L Albumin 3.4 L Arterial Blood Glucose Arterial Blood Ionized Calcium Urine WBC (Auto) Urine Creatinine 08/25/20 08/25/20 08/25/20 13:51 15:45 20:34 WBC RBC Hgb Hct MCH RDW Lymph % (Auto) Lymph # (Auto) Seg Neutrophils % Seg Neuts % (Manual) Lymphocytes % (Manual) Seg Neutrophils # Seg Neutrophils # Man Lymphocytes # (Manual) D-Dimer ABG pH POC ABG pO2 66.3 L ABG pO2 ABG HCO3 ABG Hemoglobin 9.1 L ABG Oxyhemoglobin 92.5 L ABG Sodium ABG Potassium ABG Glucose 225 H Oxyhemoglobin Carboxyhemoglobin Sodium Potassium Chloride Carbon Dioxide BUN Creatinine Glucose POC Glucose 188 H 233 H Lactic Acid Calcium AST ALT Troponin T C-Reactive Protein Total Protein Albumin Arterial Blood Glucose 225 H Arterial Blood Ionized Calcium 4.4 L Urine WBC (Auto) Urine Creatinine 08/26/20 08/26/20 08/26/20 04:14 05:04 05:04 WBC 17.9 H RBC 3.05 L Hgb 8.3 L Hct 25.6 L MCH 27 L RDW 15.3 H Lymph % (Auto) Lymph # (Auto) Seg Neutrophils % Seg Neuts % (Manual) 96.0 H Lymphocytes % (Manual) 1.0 L Seg Neutrophils # Seg Neutrophils # Man 17.2 H Lymphocytes # (Manual) 0.2 L D-Dimer ABG pH POC ABG pO2 131.3 H ABG pO2 ABG HCO3 ABG Hemoglobin 8.6 L ABG Oxyhemoglobin 98.2 H ABG Sodium ABG Potassium ABG Glucose 182 H Oxyhemoglobin Carboxyhemoglobin 0.2 L Sodium Potassium Chloride Carbon Dioxide BUN 56 H Creatinine 3.4 H Glucose 187 H POC Glucose Lactic Acid Calcium 8.3 L AST 54 H ALT 57 H Troponin T C-Reactive Protein Total Protein 5.4 L Albumin 2.9 L Arterial Blood Glucose 182 H Arterial Blood Ionized Calcium 4.3 L Urine WBC (Auto) Urine Creatinine 08/26/20 08/26/20 08/26/20 05:40 07:36 11:54 WBC RBC Hgb Hct MCH RDW Lymph % (Auto) Lymph # (Auto) Seg Neutrophils % Seg Neuts % (Manual) Lymphocytes % (Manual) Seg Neutrophils # Seg Neutrophils # Man Lymphocytes # (Manual) D-Dimer ABG pH POC ABG pO2 ABG pO2 ABG HCO3 ABG Hemoglobin ABG Oxyhemoglobin ABG Sodium ABG Potassium ABG Glucose Oxyhemoglobin Carboxyhemoglobin Sodium Potassium Chloride Carbon Dioxide BUN Creatinine Glucose POC Glucose 179 H 171 H 190 H Lactic Acid Calcium AST ALT Troponin T C-Reactive Protein Total Protein Albumin Arterial Blood Glucose Arterial Blood Ionized Calcium Urine WBC (Auto) Urine Creatinine 08/26/20 08/26/20 08/26/20 15:14 17:00 18:50 WBC RBC Hgb Hct MCH RDW Lymph % (Auto) Lymph # (Auto) Seg Neutrophils % Seg Neuts % (Manual) Lymphocytes % (Manual) Seg Neutrophils # Seg Neutrophils # Man Lymphocytes # (Manual) D-Dimer ABG pH POC ABG pO2 ABG pO2 ABG HCO3 ABG Hemoglobin ABG Oxyhemoglobin ABG Sodium ABG Potassium ABG Glucose Oxyhemoglobin Carboxyhemoglobin Sodium Potassium Chloride Carbon Dioxide BUN Creatinine Glucose POC Glucose 158 H Lactic Acid Calcium AST ALT Troponin T C-Reactive Protein 7.80 H Total Protein Albumin Arterial Blood Glucose Arterial Blood Ionized Calcium Urine WBC (Auto) Urine Creatinine 67.4 H 08/26/20 08/27/20 08/27/20 22:01 04:10 05:12 WBC RBC Hgb Hct MCH RDW Lymph % (Auto) Lymph # (Auto) Seg Neutrophils % Seg Neuts % (Manual) Lymphocytes % (Manual) Seg Neutrophils # Seg Neutrophils # Man Lymphocytes # (Manual) D-Dimer ABG pH 7.454 H POC ABG pO2 74.9 L ABG pO2 ABG HCO3 ABG Hemoglobin 7.9 L ABG Oxyhemoglobin ABG Sodium ABG Potassium ABG Glucose 117 H Oxyhemoglobin Carboxyhemoglobin Sodium Potassium Chloride Carbon Dioxide BUN Creatinine Glucose POC Glucose 122 H 117 H Lactic Acid Calcium AST ALT Troponin T C-Reactive Protein Total Protein Albumin Arterial Blood Glucose 117 H Arterial Blood Ionized Calcium 4.4 L Urine WBC (Auto) Urine Creatinine 08/27/20 08/27/20 08/27/20 07:24 07:24 11:08 WBC 12.7 H RBC 2.92 L Hgb 8.1 L Hct 24.4 L MCH RDW 15.4 H Lymph % (Auto) 5.9 L Lymph # (Auto) 0.8 L Seg Neutrophils % 86.9 H Seg Neuts % (Manual) Lymphocytes % (Manual) Seg Neutrophils # 11.0 H Seg Neutrophils # Man Lymphocytes # (Manual) D-Dimer ABG pH POC ABG pO2 ABG pO2 ABG HCO3 ABG Hemoglobin ABG Oxyhemoglobin ABG Sodium ABG Potassium ABG Glucose Oxyhemoglobin Carboxyhemoglobin Sodium Potassium Chloride Carbon Dioxide BUN 60 H Creatinine 3.6 H Glucose 135 H POC Glucose 139 H Lactic Acid Calcium AST ALT Troponin T C-Reactive Protein Total Protein 5.3 L Albumin 2.6 L Arterial Blood Glucose Arterial Blood Ionized Calcium Urine WBC (Auto) Urine Creatinine 08/27/20 08/27/20 08/27/20 11:19 17:31 23:25 WBC RBC Hgb Hct MCH RDW Lymph % (Auto) Lymph # (Auto) Seg Neutrophils % Seg Neuts % (Manual) Lymphocytes % (Manual) Seg Neutrophils # Seg Neutrophils # Man Lymphocytes # (Manual) D-Dimer ABG pH POC ABG pO2 ABG pO2 ABG HCO3 ABG Hemoglobin ABG Oxyhemoglobin ABG Sodium ABG Potassium ABG Glucose Oxyhemoglobin Carboxyhemoglobin Sodium Potassium Chloride Carbon Dioxide BUN Creatinine Glucose POC Glucose 143 H 140 H 123 H Lactic Acid Calcium AST ALT Troponin T C-Reactive Protein Total Protein Albumin Arterial Blood Glucose Arterial Blood Ionized Calcium Urine WBC (Auto) Urine Creatinine 08/28/20 08/28/20 08/28/20 03:50 04:19 04:19 WBC RBC 2.80 L Hgb 7.8 L Hct 23.6 L MCH RDW 15.8 H Lymph % (Auto) Lymph # (Auto) Seg Neutrophils % Seg Neuts % (Manual) Lymphocytes % (Manual) Seg Neutrophils # Seg Neutrophils # Man Lymphocytes # (Manual) D-Dimer ABG pH 7.329 L POC ABG pO2 ABG pO2 76.7 L ABG HCO3 27.0 H ABG Hemoglobin 7.5 L ABG Oxyhemoglobin ABG Sodium ABG Potassium ABG Glucose Oxyhemoglobin 93.6 L Carboxyhemoglobin Sodium 135 L Potassium Chloride Carbon Dioxide BUN 64 H Creatinine 3.8 H Glucose 143 H POC Glucose Lactic Acid Calcium 8.0 L AST ALT Troponin T C-Reactive Protein Total Protein 4.8 L Albumin 2.4 L Arterial Blood Glucose Arterial Blood Ionized Calcium Urine WBC (Auto) Urine Creatinine 08/28/20 08/28/20 08/28/20 05:35 11:22 17:18 WBC RBC Hgb Hct MCH RDW Lymph % (Auto) Lymph # (Auto) Seg Neutrophils % Seg Neuts % (Manual) Lymphocytes % (Manual) Seg Neutrophils # Seg Neutrophils # Man Lymphocytes # (Manual) D-Dimer ABG pH POC ABG pO2 ABG pO2 ABG HCO3 ABG Hemoglobin ABG Oxyhemoglobin ABG Sodium ABG Potassium ABG Glucose Oxyhemoglobin Carboxyhemoglobin Sodium Potassium Chloride Carbon Dioxide BUN Creatinine Glucose POC Glucose 147 H 182 H 216 H Lactic Acid Calcium AST ALT Troponin T C-Reactive Protein Total Protein Albumin Arterial Blood Glucose Arterial Blood Ionized Calcium Urine WBC (Auto) Urine Creatinine 08/28/20 08/28/20 08/29/20 21:04 23:20 04:32 WBC RBC Hgb Hct MCH RDW Lymph % (Auto) Lymph # (Auto) Seg Neutrophils % Seg Neuts % (Manual) Lymphocytes % (Manual) Seg Neutrophils # Seg Neutrophils # Man Lymphocytes # (Manual) D-Dimer ABG pH POC ABG pO2 ABG pO2 ABG HCO3 ABG Hemoglobin ABG Oxyhemoglobin ABG Sodium ABG Potassium ABG Glucose Oxyhemoglobin Carboxyhemoglobin Sodium 135 L Potassium Chloride 96.0 L Carbon Dioxide BUN 67 H Creatinine 3.8 H Glucose 200 H POC Glucose 204 H 242 H Lactic Acid Calcium 8.2 L AST ALT Troponin T C-Reactive Protein Total Protein Albumin Arterial Blood Glucose Arterial Blood Ionized Calcium Urine WBC (Auto) Urine Creatinine 08/29/20 08/29/20 08/29/20 04:32 04:50 04:59 WBC RBC 3.25 L Hgb 9.0 L Hct 27.0 L MCH RDW 16.1 H Lymph % (Auto) Lymph # (Auto) Seg Neutrophils % Seg Neuts % (Manual) Lymphocytes % (Manual) Seg Neutrophils # Seg Neutrophils # Man Lymphocytes # (Manual) D-Dimer ABG pH POC ABG pO2 ABG pO2 ABG HCO3 ABG Hemoglobin 8.8 L ABG Oxyhemoglobin ABG Sodium ABG Potassium ABG Glucose Oxyhemoglobin Carboxyhemoglobin Sodium Potassium Chloride Carbon Dioxide BUN Creatinine Glucose POC Glucose 201 H Lactic Acid Calcium AST ALT Troponin T C-Reactive Protein Total Protein Albumin Arterial Blood Glucose Arterial Blood Ionized Calcium Urine WBC (Auto) Urine Creatinine 08/29/20 08/29/20 08/29/20 11:10 11:28 17:50 WBC RBC Hgb Hct MCH RDW Lymph % (Auto) Lymph # (Auto) Seg Neutrophils % Seg Neuts % (Manual) Lymphocytes % (Manual) Seg Neutrophils # Seg Neutrophils # Man Lymphocytes # (Manual) D-Dimer ABG pH POC ABG pO2 ABG pO2 78.7 L ABG HCO3 26.6 H ABG Hemoglobin 9.8 L ABG Oxyhemoglobin ABG Sodium ABG Potassium ABG Glucose Oxyhemoglobin 94.3 L Carboxyhemoglobin Sodium Potassium Chloride Carbon Dioxide BUN Creatinine Glucose POC Glucose 219 H 203 H Lactic Acid Calcium AST ALT Troponin T C-Reactive Protein Total Protein Albumin Arterial Blood Glucose Arterial Blood Ionized Calcium Urine WBC (Auto) Urine Creatinine 08/29/20 08/29/20 08/30/20 21:31 23:28 04:14 WBC RBC Hgb Hct MCH RDW Lymph % (Auto) Lymph # (Auto) Seg Neutrophils % Seg Neuts % (Manual) Lymphocytes % (Manual) Seg Neutrophils # Seg Neutrophils # Man Lymphocytes # (Manual) D-Dimer ABG pH POC ABG pO2 ABG pO2 ABG HCO3 ABG Hemoglobin ABG Oxyhemoglobin ABG Sodium ABG Potassium ABG Glucose Oxyhemoglobin Carboxyhemoglobin Sodium 132 L Potassium Chloride 94.8 L Carbon Dioxide BUN 68 H Creatinine 3.7 H Glucose 214 H POC Glucose 204 H 215 H Lactic Acid Calcium AST ALT Troponin T C-Reactive Protein Total Protein Albumin Arterial Blood Glucose Arterial Blood Ionized Calcium Urine WBC (Auto) Urine Creatinine 08/30/20 08/30/20 08/30/20 05:10 11:33 17:32 WBC RBC Hgb Hct MCH RDW Lymph % (Auto) Lymph # (Auto) Seg Neutrophils % Seg Neuts % (Manual) Lymphocytes % (Manual) Seg Neutrophils # Seg Neutrophils # Man Lymphocytes # (Manual) D-Dimer ABG pH POC ABG pO2 ABG pO2 ABG HCO3 ABG Hemoglobin ABG Oxyhemoglobin ABG Sodium ABG Potassium ABG Glucose Oxyhemoglobin Carboxyhemoglobin Sodium Potassium Chloride Carbon Dioxide BUN Creatinine Glucose POC Glucose 210 H 194 H 202 H Lactic Acid Calcium AST ALT Troponin T C-Reactive Protein Total Protein Albumin Arterial Blood Glucose Arterial Blood Ionized Calcium Urine WBC (Auto) Urine Creatinine 08/30/20 08/30/20 08/30/20 21:39 23:21 Unknown WBC RBC Hgb Hct MCH RDW Lymph % (Auto) Lymph # (Auto) Seg Neutrophils % Seg Neuts % (Manual) Lymphocytes % (Manual) Seg Neutrophils # Seg Neutrophils # Man Lymphocytes # (Manual) D-Dimer ABG pH POC ABG pO2 ABG pO2 99.0 H ABG HCO3 ABG Hemoglobin 9.8 L ABG Oxyhemoglobin ABG Sodium ABG Potassium ABG Glucose Oxyhemoglobin Carboxyhemoglobin Sodium Potassium Chloride Carbon Dioxide BUN Creatinine Glucose POC Glucose 199 H 209 H Lactic Acid Calcium AST ALT Troponin T C-Reactive Protein Total Protein Albumin Arterial Blood Glucose Arterial Blood Ionized Calcium Urine WBC (Auto) Urine Creatinine 08/31/20 08/31/20 08/31/20 04:10 05:19 10:57 WBC RBC Hgb Hct MCH RDW Lymph % (Auto) Lymph # (Auto) Seg Neutrophils % Seg Neuts % (Manual) Lymphocytes % (Manual) Seg Neutrophils # Seg Neutrophils # Man Lymphocytes # (Manual) D-Dimer ABG pH 7.451 H POC ABG pO2 ABG pO2 99.6 H ABG HCO3 ABG Hemoglobin 8.4 L ABG Oxyhemoglobin ABG Sodium ABG Potassium ABG Glucose Oxyhemoglobin Carboxyhemoglobin Sodium 133 L Potassium Chloride 96.4 L Carbon Dioxide BUN 74 H Creatinine 3.8 H Glucose 201 H POC Glucose 182 H Lactic Acid Calcium 7.6 L AST ALT Troponin T C-Reactive Protein Total Protein Albumin Arterial Blood Glucose Arterial Blood Ionized Calcium Urine WBC (Auto) Urine Creatinine 08/31/20 08/31/20 10:57 12:32 WBC 11.4 H RBC 3.24 L Hgb 8.5 L Hct 26.6 L MCH 26 L RDW 15.6 H Lymph % (Auto) Lymph # (Auto) Seg Neutrophils % Seg Neuts % (Manual) Lymphocytes % (Manual) Seg Neutrophils # Seg Neutrophils # Man Lymphocytes # (Manual) D-Dimer ABG pH POC ABG pO2 ABG pO2 ABG HCO3 ABG Hemoglobin ABG Oxyhemoglobin ABG Sodium ABG Potassium ABG Glucose Oxyhemoglobin Carboxyhemoglobin Sodium Potassium Chloride Carbon Dioxide BUN Creatinine Glucose POC Glucose 217 H Lactic Acid Calcium AST ALT Troponin T C-Reactive Protein Total Protein Albumin Arterial Blood Glucose Arterial Blood Ionized Calcium Urine WBC (Auto) Urine Creatinine Chest x-ray: pending Allied health notes reviewed: nursing
[2020-08-31] MEDS: FAMOTIDINE 20 MG TAB PO SCH (13:40)
[2020-08-31] MEDS: hydrALAZINE 100 MG TAB PO SCH ×2 (14:10→20:04)
[2020-08-31] MEDS: LACOSAMIDE 100 MG in SODIUM CHLORIDE 0.9% 100 ML IV SCH ×2 (14:10→21:18)
[2020-08-31] MEDS: TAMSULOSIN 0.4 MG CAP PO SCH (16:53)
[2020-08-31] MEDS ORDERED: INSULIN GLARGINE 100 UNITS/ML SUB-Q SCH (22:00)
[2020-09-01] MEDS: INSULIN LISPRO 100 UNIT/ML SUB-Q SCH ×4 (00:10→18:58)
--- NOTE | 2020-09-01 01:48 | XRay Report ---
CHEST 1 VIEW INDICATION / CLINICAL INFORMATION: follow up respiratory failure. FINDINGS: SUPPORT DEVICES: The endotracheal tube and esophagogastric tube both project in expected position.. HEART / MEDIASTINUM: No significant abnormality. LUNGS / PLEURA: Severe bilateral airspace disease present. This has slightly worsened from yesterday' s exam. Signer Name: Luis Taylor MD Signed: 09/01/2020 1:44 AM Workstation Name: [id number]
--- NOTE | 2020-09-01 07:39 | Ultrasound Report ---
Ultrasound chest bilateral INDICATION: Pleural effusion TECHNIQUE: Real-time grayscale imaging obtained along the chest for evaluation of pleural effusion IMPRESSION: Large bilateral pleural effusions, somewhat larger on the right. Signer Name: Luis Taylor MD Signed: 09/01/2020 7:35 AM Workstation Name: [id number]
[2020-09-01] MEDS: hydrALAZINE 100 MG TAB PO SCH (07:45)
[2020-09-01] MEDS: METOPROLOL TARTRATE 25 MG TAB PO SCH ×2 (09:13→21:33)
[2020-09-01] MEDS: FAMOTIDINE 20 MG TAB PO SCH (09:13)
[2020-09-01] MEDS: ASPIRIN 81 MG TAB CHEW PO SCH (09:13)
[2020-09-01] MEDS: TAMSULOSIN 0.4 MG CAP PO SCH (09:14)
[2020-09-01] MEDS: amLODIPine 5 MG TAB PO SCH (09:15)
[2020-09-01] MEDS: levETIRAcetam 500 MG/5 ML ORAL LIQD PO SCH ×2 (09:15→21:29)
[2020-09-01] MEDS: HEPARIN 5,000 UNIT/1 ML VIAL SUB-Q SCH ×2 (09:24→21:30)
[2020-09-01] MEDS: LACOSAMIDE 100 MG in SODIUM CHLORIDE 0.9% 100 ML IV SCH ×2 (10:11→21:31)
[2020-09-01] MEDS: SENNOSIDES/DOCUSATE SODIUM 8.6/50 MG TAB FEEDTUBE SCH (10:11)
[2020-09-01 10:29] LABS: Calcium 8.6 mg/dL (8.4-10.2)
[2020-09-01 11:03] LABS: Hematocrit 29.7 % (30.3-42.9); Hemoglobin 9.2 gm/dl (10.1-14.3); Mean Corpuscular HGB Conc 31 % (30-34); Mean Corpuscular Volume 83 fl (79-97); Platelet Count 287 K/mm3 (140-440); Red Blood Count 3.58 M/mm3 (3.65-5.03)
--- NOTE | 2020-09-01 13:16 | Progress Note ---
Assessment and Plan 1. Acute kidney injury: Vasomotor FLORIDALMA superimposed on CKD stage 4 in the setting Cardiac arrest. Low FeNa. CT abdomen negative for hydro. Monitor renal function. Creatinine leveled off. Remain non-oliguric. Renal prognosis is guarded. Avoid nephrotoxic agents. Meds dosage based on GFR. Monitor for [employer] needs. 2. FEN: Volume overload, IV lasix. Hyperkalemia, improved. Metabolic acidosis, improved. Monitor lytes. 3. Acute respiratory failure with hypoxia: 2/2 b/p pneumonia. Covid test negative. Intubated, on vent. On Abx. Followed by Pulmonary. 4. S/p OOH Cardiac arrest: Monitor. Followed by Cards. 5. Bladder retention: Christina catheter. 6. Diabetes mellitus type 2: Follow blood glucose. 7. Hypertension: Monitor BP. 8. Anemia, POA: Monitor. 9. 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 Family is aware of slim prognosis. 10. Faicl twitching: Vimpat. Subjective: Patient was seen and examined at the bedside. Son at the bedside. Examination: General appearance: well-developed, well-nourished, appears stated age, intubated, on vent HEENT: ATNC, pupils not reacting to light, facial twitching noted Neck: supple Respiratory: coarse breath sounds Cardiology: regular, S1S2, no murmur Gastrointestinal: soft, bowel sounds heard, not tender Integumentary: no rash, warm and dry Neurologic: not responding Ext: trace dependent edema : Christina catheter Subjective Date of service: 09/01/20 Principal diagnosis: Ac. hypoxemic resp failure; Cardiac arrest; AMS; AE-CHF; Hyperkalemia; FLORIDALMA Objective - Vital Signs Vital signs: Vital Signs - 12hr 09/01/20 09/01/20 09/01/20 01:30 02:01 02:31 Temperature Pulse Rate 67 65 65 Pulse Rate [ From Monitor] Respiratory 13 18 18 Rate Blood Pressure 124/67 115/70 146/68 O2 Sat by Pulse 97 97 98 Oximetry 09/01/20 09/01/20 09/01/20 03:00 03:30 03:43 Temperature Pulse Rate 63 64 64 Pulse Rate [ 64 From Monitor] Respiratory 16 18 Rate Blood Pressure 119/57 129/60 129/60 O2 Sat by Pulse 97 98 100 Oximetry 09/01/20 09/01/2021 04:00 04:31 05:00 Temperature Pulse Rate 65 68 63 Pulse Rate [ From Monitor] Respiratory 17 17 16 Rate Blood Pressure 129/60 118/64 124/55 O2 Sat by Pulse 100 98 98 Oximetry 09/01/20 09/01/20 09/01/20 05:30 06:01 06:30 Temperature Pulse Rate 64 70 69 Pulse Rate [ From Monitor] Respiratory 16 18 20 Rate Blood Pressure 127/58 164/67 162/69 O2 Sat by Pulse 97 99 98 Oximetry 09/01/20 09/01/20 09/01/20 07:00 07:31 08:00 Temperature 97.5 F L Pulse Rate 69 70 Pulse Rate [ From Monitor] Respiratory 20 17 Rate Blood Pressure 150/71 168/65 O2 Sat by Pulse 98 98 Oximetry 09/01/20 09/01/20 09/01/20 08:01 08:30 08:37 Temperature Pulse Rate 66 67 74 Pulse Rate [ From Monitor] Respiratory 18 17 23 Rate Blood Pressure 126/54 135/61 135/61 O2 Sat by Pulse 98 99 100 Oximetry 09/01/20 09/01/20 09/01/20 09:00 09:13 09:15 Temperature Pulse Rate 66 67 66 Pulse Rate [ From Monitor] Respiratory 14 Rate Blood Pressure 138/61 138/61 138/61 O2 Sat by Pulse 99 Oximetry 09/01/20 09/01/20 09/01/20 09:30 10:00 10:31 Temperature Pulse Rate 66 63 63 Pulse Rate [ From Monitor] Respiratory 15 15 18 Rate Blood Pressure 128/58 135/57 120/66 O2 Sat by Pulse 99 98 99 Oximetry 09/01/20 09/01/20 09/01/20 11:01 11:31 12:00 Temperature Pulse Rate 63 57 L 57 L Pulse Rate [ From Monitor] Respiratory 18 16 16 Rate Blood Pressure 109/67 121/54 132/58 O2 Sat by Pulse 99 99 99 Oximetry 09/01/20 13:05 Temperature Pulse Rate 61 Pulse Rate [ From Monitor] Respiratory 16 Rate Blood Pressure 133/64 O2 Sat by Pulse 100 Oximetry - Lab 09/01/20 09:41 09/01/20 09:41 Most recent lab results ABG pH 7.451 pH Units (7.350-7.450) H 08/31/20 04:10 ABG pCO2 36.6 mm Hg 07/01/21 04:10 ABG pO2 99.6 mm Hg (80.0-90.0) H 08/31/20 04:10 ABG HCO3 24.9 mmol/L (20.0-26.0) 08/31/20 04:10 ABG O2 Saturation 97.7 % (95.0-99.0) 08/31/20 04:10 Calcium 8.6 mg/dL (8.4-10.2) 09/01/20 09:41 Phosphorus 4.60 mg/dL (2.5-4.5) H 09/01/20 09:41 Magnesium 2.40 mg/dL (1.7-2.3) H 09/01/20 09:41 Urine Creatinine 67.4 mg/dL (0.1-20.0) H 08/26/20 17:00 Urine Sodium 12 mmol/L 08/26/20 17:00 Medications & Allergies - Medications Allergies/Adverse Reactions: Allergies No Known Allergies Allergy (Verified 07/31/18 07:06) Home Medications: Home Medications Medication Instructions Recorded Confirmed Last Taken Type Albuterol Mdi (or & Nicu Only) 2 puff IH QID PRN #1 inhalation 08/07/18 03/14/20 Unknown Rx [ProAir HFA Inhaler] Sucralfate [Carafate] 1 gm PO ACHS #30 tablet 08/07/18 03/14/20 03/13/20 Rx Insulin Regular, Human [HumuLIN R] 0 unit SQ AC #1 vial 08/11/18 03/14/20 Unknown Rx Labetalol HCl [Labetalol 300mg TAB] 300 mg PO BID #60 tablet 11/11/19 03/14/20 03/14/20 Rx Furosemide [Lasix TAB] 80 mg PO DAILY #14 tablet 03/27/20 Unknown Rx Insulin Glargine [Lantus VIAL] 15 units SUB-Q QAM #1 vial 03/27/20 Unknown Rx amLODIPine 10 mg PO QDAY #30 tablet 03/27/20 Unknown Rx Active Medications: Generic Name Dose Route Start Last Admin Trade Name Freq PRN Reason Stop Dose Admin Albuterol 2.5 mg 08/25/20 14:55 Albuterol 2.5 Mg/3 Ml Nebu IH Q3HRT PRN Shortness Of Breath Amlodipine Besylate 5 mg 08/28/20 10:00 09/01/20 09:15 Amlodipine 5 Mg Tab PO 5 mg QDAY TERA Administration Lipase/Protease/Amylase 1 each 08/26/20 12:15 Lipase 10,500/Protease 25,000/Amylase 43,750 (Units) Dr Gu FEEDTUBE PRN PRN For Clogged Feeding Tube Aspirin 81 mg 08/27/20 10:00 09/01/20 09:13 Aspirin 81 Mg Tab Chew PO 81 mg QDAY TERA Administration Atorvastatin Calcium 40 mg 08/26/20 22:00 08/31/20 21:18 Atorvastatin 40 Mg Tab PO 40 mg QHS TERA Administration Dextrose 50 ml 08/26/20 19:18 Dextrose 50% In Water (25gm) 50 Ml Syringe IV Q30MIN PRN Hypoglycemia Protocol Famotidine 20 mg 08/28/20 10:00 09/01/20 09:13 Famotidine 20 Mg Tab PO 20 mg DAILY TERA Administration Furosemide 80 mg 09/01/20 13:12 Furosemide 40 Mg/4 Ml Inj IV 09/01/20 13:13 ONCE ONE Heparin Sodium (Porcine) 5,000 unit 08/26/20 22:00 09/01/20 09:24 Heparin 5,000 Unit/1 Ml Vial SUB-Q 5,000 unit Q12HR TERA Administration Hydralazine HCl 10 mg 08/26/20 01:20 08/31/20 08:45 Hydralazine 20 Mg/1 Ml Inj IV 10 mg Q4HR PRN Administration Blood Pressure Hydralazine HCl 50 mg 09/01/20 13:13 Hydralazine 100 Mg Tab PO TID [facility] Hydrophilic Ointment 1 applic 08/25/20 11:07 08/25/20 11:57 Lip Therapy Vaseline TP 1 applic Q2HR PRN Administration Dry Lips Lacosamide 100 mg/ Sodium 110 mls @ 100 mls/hr 08/31/20 14:00 09/01/20 10:11 Chloride IV 09/01/20 23:05 100 mls/hr Q12HR TERA Administration Insulin Glargine 25 units 09/01/20 22:00 Insulin Glargine 100 Units/Ml SUB-Q QHS [facility] Insulin Human Lispro 0 unit 08/27/20 12:00 09/01/20 13:10 Insulin Lispro 100 Unit/Ml SUB-Q 2 unit Q6HR TERA Administration Protocol Lacosamide 100 mg 09/02/20 10:00 Lacosamide 100 Mg Tab PO Q12HR TERA Levetiracetam 750 mg 08/31/20 13:00 09/01/20 09:15 Levetiracetam 500 Mg/5 Ml Oral Liqd PO 750 mg BID TERA Administration Metoprolol Tartrate 12.5 mg 08/29/20 22:00 09/01/20 09:13 Metoprolol Tartrate 25 Mg Tab PO 12.5 mg BID TERA Administration Multi-Ingred Cream/Lotion/Oil/Oint 1 applic 08/25/20 11:07 Mineral Oil/Petrolatum, White Ophth Oint 3.5 Gm OU Q4HR PRN Dry Eye(s) Senna/Docusate Sodium 1 tab 08/25/20 22:00 09/01/20 10:11 Sennosides/Docusate Sodium 8.6/50 Mg Tab FEEDTUBE 1 tab BID TERA Administration Simple Syrup 15 ml 08/26/20 12:15 Simple Syrup 15 Ml FEEDTUBE PRN PRN Hypoglycemia Simple Syrup 30 ml 08/26/20 12:15 Simple Syrup 15 Ml FEEDTUBE PRN PRN Hypoglycemia Sodium Bicarbonate 325 mg 08/26/20 12:15 Sodium Bicarbonate 325 Mg Tab FEEDTUBE PRN PRN For Clogged Feeding Tube Sodium Chloride 10 ml 08/25/20 22:00 09/01/20 09:24 Sodium Chloride 0.9% 10 Ml Flush Syringe IV 10 ml BID TERA Administration Sodium Chloride 10 ml 08/25/20 14:55 08/29/20 04:05 Sodium Chloride 0.9% 10 Ml Flush Syringe IV 10 ml PRN PRN Administration LINE FLUSH Tamsulosin HCl 0.4 mg 08/31/20 15:00 09/01/20 09:14 Tamsulosin 0.4 Mg Cap PO 0.4 mg QDAY TERA Administration
[2020-09-01] MEDS ORDERED: FUROSEMIDE 40 MG/4 ML INJ IV ONE (14:00)
--- NOTE | 2020-09-01 14:22 | Progress Note ---
<ERICHMIN SandeepMaura - Last Filed: 09/01/20 16:12> Assessment and Plan Assessment and plan: This is a 75-year-old female with CHF, OHS DM, CKD, morbid obesity, GERD, hypertension, chronic respiratory failure admitted s/p cardiac arrest NEURO Anoxic encephalopathy -Neurology consulted, appreciate recommendations -08/25 CT head shows no CT evidence of acute abnormality -08/28 MRI brain without contrast -08/30 EEG- results pending Seizure -Keppra BID , vimpat -Seizure/aspiration precautions -per neuro prognosis poor based on MRI -NO mind altering medications - to allow for neuro assessment and brain function -opens eyes spontaneously ; pupils not reactive to light; neg threat; pos cough; withdrawal on right to deep pain; no response to deep pain on left Pt has 8 living children- updated on plan of care Case Management following if decision is not made by family in 48 hours we will order trach/Peg Friday CV SR S/p cardiac arrest with prolonged down time- see ER note -ddimer elevated on admit following cardiac arrest -Cardiology has seen and signed off- call if needed -08/25 echocardiogram shows LVEF 40 to 45%, LV normal size, LV systolic function mildly decreased, mild diastolic dysfunction, mildly dilated right ventricle, pulmonary hypertension RVSP 45 mmHg -asa and statin Hypertension -home norvasc -hydral dose increased -Blood pressure monitoring per protocol -IV hydralazine as needed RESP Acute hypoxic respiratory failure -Chronic respiratory insufficiency at home with 3 L oxygen via nasal cannula -remains intubated and ventilated on cpap this AM placed back on support p sz -Wean as tolerated; trend pulse ox -CCM following -VAP bundle -nebs as needed Multifocal pneumonia/ ? aspiration event -08/25 CXR shows worsening patchy bilateral pulmonary opacities -08/25 CTA chest shows no evidence of pulmonary embolism, bilateral pulmonary processes with large bilateral pleural effusions, pneumonia is a concern, pulmonary edema could be a similar appearance versus pulmonary edema GI Protein Calorie Malnutrition TF per nutrition bowel reg. FLORIDALMA on CKD secondary to patient under nephropathy -Nephrology consulted, patient recommendations -Daily weights -Avoid nephrotoxic medications; avoid NITIN/ARB -bladder scan with high residuals requiring frequent intermittent caths so foreman replaced at 1230 -trend and replace electrolytes as needed -Trend Cr Urinary retention -Foreman replaced 08/31 for urinary retention HEME Anemia -Admit H/H 8.6/27.8 -Transfuse for hemoglobin less than 7 -Trend CBC VTE prophylaxis with SCD and SQH ID Pneumonia -trend WBC and temp curve -afebrile -trend cultures -covid neg on admit ENDO Diabetes mellitus -SSI -Lantus, increase as needed -Accu-Cheks every 6h -avoid hypoglycemia -hx obesity DVT/GI prophylaxis: SCDs to bilateral lower extremities heparin subcu, PPI Disposition: ICU Lines: PIV; foreman The high probability of a clinically significant, sudden or life threatening deterioration of the [cardiac, pulmonary, neuro, renal, infectious disease] system(s) required my full and direct attention, intervention and personal management. The aggregate critical care time was [35] minutes. This time is in addition to time spent performing reported procedures but includes the following: [x] Data Review and interpretation [x] Patient assessment and monitoring of vital signs [x] Documentation [x] Medication orders and management History Interval history: This is a 69-year-old female with OHS, DM, CKD stage IV, morbid obesity CHF, GERD, HTN, chronic respiratory failure on 3 L of home oxygen via nasal cannula who presented to the emergency department on 08/25 after being found down unresponsive at 0950 hours by family and upon EMS arrival she was unresponsive and asystolic arrest. Patient was treated with ACLS protocol with eventual ROSC after at least 15 minutes of ACLS and patient was transported to [facility]. In the emergency department patient was found to have acute hypoxic respiratory failure and subsequently intubated on vasopressor support, she underwent a CXR which showed bilateral pneumonia and exam is consistent with SIRS. [facility] and cardiology were consulted and patient was admitted to the hospital service with acute hypoxic respiratory failure, anoxic encephalopathy, s/p cardiac arrest, multifocal pneumonia, FLORIDALMA on CKD. 08/26/20 patient is seen and examined. Patient is on vent. WBC 17.9 and hemoglobin 8.3 hematocrit 25.6. Patient may have 1 episode of questionable seizure. Patient BUN is 56 creatinine 3.4. Will consult nephrology. We also start the patient on Rocephin 2 g IV daily and Zithromax. Aspirin 81 mg p.o. daily and Lipitor. Patient is having echocardiogram. Cardiology and critical care will see the patient as consult tension. Continue current management. We have started on NG tube feeding and consult nutrition for evaluation. Recheck CBC BMP in the morning. Case discussed with daughter Leena [phone] 08/27: Patient remains on full ventilatory support, considering concern for seizure yesterday under the circumstance of out of hospital cardiac arrest, and concern for anoxic encephalopathy, will proceed with Neurology consultation. 08/28: At the time my examination patient sedation of propofol 30 and fentanyl 1 was being held and she was on CMV tidal and 450, rate of 18, PEEP of 6 and FiO2 of 35%. Neurology was consulted. I updated the patient's daughter Leena Payton at bedside and told her of the pending tests the neurologist has ordered. 08/29: Increase in Lantus due to persistent hypoglycemia, chest ultrasound ordered for possible thoracentesis by [facility], MRI brain pending. Remove Foreman catheter if okay with nephrology. Increase in beta-skylar by [facility] however cardiology decreased hydralazine per neurology recommendations. At the time my examination patient was on CPAP trial pressure support of 12, PEEP of 6 and 35% FiO2. RT obtain an ABG we will continue CPAP as tolerated. 08/28: No acute events overnight. Noted to have seizure, addition of vimpat 08/29: Chest US noted to have pleural effusions, cxr shows pulmonary edema, nephro ordered lasix x1. CCM and nephro had conversation son at bedside. Surgery consulted for trach/peg. [facility] plans for IR thora if family decides aggressive care Hospitalist Physical - Constitutional Vitals: Temp Pulse Resp BP Pulse Ox 97.5 F L 61 16 133/64 100 09/01/20 13:13 09/01/20 13:05 09/01/20 13:05 09/01/20 13:05 09/01/20 13:05 General appearance: Present: no acute distress, obese, other (pallor) - EENT Eyes: Absent: PERRL, EOM intact ENT: dentition normal - Neck Neck: Absent: masses or JVD, cervical LAD - Respiratory Respiratory effort: normal Respiratory: bilateral: diminished - Cardiovascular Rhythm: regular Heart Sounds: Present: S1 & S2. Absent: systolic murmur, diastolic murmur - Extremities Extremities: no ischemia, pulses intact, pulses symmetrical, normal temperature, normal color Extremity abnormal: edema Peripheral Pulses: within normal limits - Abdominal General gastrointestinal: soft, non-tender, non-distended, normal bowel sounds - Integumentary Integumentary: Present: warm, dry - Psychiatric Psychiatric: other (not interactive) - Neurologic Neurologic: no moves all extremities - Allied Health Allied health notes reviewed: nursing, RT, social work HEART Score - HEART Score Troponin: Troponin T 0.057 ng/mL (0.00-0.029) H 08/25/20 11:23 Results - Labs CBC & Chem 7: 09/01/20 09:41 09/01/20 09:41 Labs: Laboratory Last Values WBC 11.5 K/mm3 (4.5-11.0) H 09/01/20 09:41 RBC 3.58 M/mm3 (3.65-5.03) L 09/01/20 09:41 Hgb 9.2 gm/dl (10.1-14.3) L 09/01/20 09:41 Hct 29.7 % (30.3-42.9) L 09/01/20 09:41 MCV 83 fl (79-97) 09/01/20 09:41 MCH 26 pg (28-32) L 09/01/20 09:41 MCHC 31 % (30-34) 09/01/20 09:41 RDW 16.0 % (13.2-15.2) H 09/01/20 09:41 Plt Count 287 K/mm3 (140-440) 09/01/20 09:41 Lymph % (Auto) 5.9 % (13.4-35.0) L 08/27/20 07:24 [place] % (Auto) 4.6 % (0.0-7.3) 08/27/20 07:24 Eos % (Auto) 2.2 % (0.0-4.3) 08/27/20 07:24 Baso % (Auto) 0.4 % (0.0-1.8) 08/27/20 07:24 Lymph # (Auto) 0.8 K/mm3 (1.2-5.4) L 08/27/20 07:24 [place] # (Auto) 0.6 K/mm3 (0.0-0.8) 08/27/20 07:24 Eos # (Auto) 0.3 K/mm3 (0.0-0.4) 08/27/20 07:24 Baso # (Auto) 0.0 K/mm3 (0.0-0.1) 08/27/20 07:24 Add Manual Diff Complete 08/26/20 05:04 Total Counted 100 08/26/20 05:04 Seg Neutrophils % 86.9 % (40.0-70.0) H 08/27/20 07:24 Seg Neuts % (Manual) 96.0 % (40.0-70.0) H 08/26/20 05:04 Band Neutrophils % 2.0 % 08/25/20 11:23 Lymphocytes % (Manual) 1.0 % (13.4-35.0) L 08/26/20 05:04 Monocytes % (Manual) 3.0 % (0.0-7.3) 08/26/20 05:04 Eosinophils % (Manual) 3.0 % (0.0-4.3) 08/25/20 11:23 Metamyelocytes % 1.0 % 08/25/20 11:23 Nucleated RBC % Not Reportable 08/26/20 05:04 Seg Neutrophils # 11.0 K/mm3 (1.8-7.7) H 08/27/20 07:24 Seg Neutrophils # Man 17.2 K/mm3 (1.8-7.7) H 08/26/20 05:04 Band Neutrophils # 0.0 K/mm3 08/26/20 05:04 Lymphocytes # (Manual) 0.2 K/mm3 (1.2-5.4) L 08/26/20 05:04 Abs React Lymphs (Man) 0.0 K/mm3 08/26/20 05:04 Monocytes # (Manual) 0.5 K/mm3 (0.0-0.8) 08/26/20 05:04 Eosinophils # (Manual) 0.0 K/mm3 (0.0-0.4) 08/26/20 05:04 Basophils # (Manual) 0.0 K/mm3 (0.0-0.1) 08/26/20 05:04 Metamyelocytes # 0.0 K/mm3 08/26/20 05:04 Myelocytes # 0.0 K/mm3 08/26/20 05:04 Promyelocytes # 0.0 K/mm3 08/26/20 05:04 Blast Cells # 0.0 K/mm3 08/26/20 05:04 WBC Morphology Not Reportable 08/26/20 05:04 Hypersegmented Neuts Not Reportable 08/26/20 05:04 Hyposegmented Neuts Not Reportable 08/26/20 05:04 Hypogranular Neuts Not Reportable 08/26/20 05:04 Smudge Cells Not Reportable 08/26/20 05:04 Toxic Granulation Not Reportable 08/26/20 05:04 Toxic Vacuolation Not Reportable 08/26/20 05:04 Dohle Bodies Not Reportable 08/26/20 05:04 Pelger-Huet Anomaly Not Reportable 08/26/20 05:04 Jannette Rods Not Reportable 08/26/20 05:04 Platelet Estimate Consistent w auto 08/26/20 05:04 Clumped Platelets Not Reportable 08/26/20 05:04 Plt Clumps, EDTA Not Reportable 08/26/20 05:04 Large Platelets Not Reportable 08/26/20 05:04 Giant Platelets Not Reportable 08/26/20 05:04 Platelet Satelliting Not Reportable 08/26/20 05:04 Plt Morphology Comment Not Reportable 08/26/20 05:04 RBC Morphology Not Reportable 08/26/20 05:04 Dimorphic RBCs Not Reportable 08/26/20 05:04 Polychromasia Not Reportable 08/26/20 05:04 Hypochromasia Not Reportable 08/26/20 05:04 Poikilocytosis Not Reportable 08/26/20 05:04 Anisocytosis 1+ 08/26/20 05:04 Microcytosis Not Reportable 08/26/20 05:04 Macrocytosis Not Reportable 08/26/20 05:04 Spherocytes Not Reportable 08/26/20 05:04 Pappenheimer Bodies Not Reportable 08/26/20 05:04 Sickle Cells Not Reportable 08/26/20 05:04 Target Cells Not Reportable 08/26/20 05:04 Tear Drop Cells Not Reportable 08/26/20 05:04 Ovalocytes Not Reportable 08/26/20 05:04 Helmet Cells Not Reportable 08/26/20 05:04 [place] Bodies Not Reportable 08/26/20 05:04 [place] Rings Not Reportable 08/26/20 05:04 [place] Cells Not Reportable 08/26/20 05:04 Bite Cells Not Reportable 08/26/20 05:04 Crenated Cell Not Reportable 08/26/20 05:04 Elliptocytes Not Reportable 08/26/20 05:04 Acanthocytes (Spur) Not Reportable 08/26/20 05:04 Rouleaux Not Reportable 08/26/20 05:04 Hemoglobin C Crystals Not Reportable 08/26/20 05:04 Schistocytes Not Reportable 08/26/20 05:04 Malaria parasites Not Reportable 08/26/20 05:04 Shabbir Bodies Not Reportable 08/26/20 05:04 Hem Pathologist Commnt No 08/26/20 05:04 D-Dimer > 50021 ng/mlDDU (0-234) H 08/25/20 11:23 ABG pH 7.462 (7.320-7.450) H 09/01/20 12:51 POC ABG pCO2 39.5 mmHg (32.0-48.0) 09/01/20 12:51 ABG pCO2 36.6 mm Hg 08/31/20 04:10 POC ABG pO2 102.7 mmHg (83-108) 09/01/20 12:51 ABG pO2 99.6 mm Hg (80.0-90.0) H 08/31/20 04:10 POC ABG HCO3 27.6 09/01/20 12:51 ABG HCO3 24.9 mmol/L (20.0-26.0) 08/31/20 04:10 ABG O2 Saturation 98.0 (0-100) 09/01/20 12:51 ABG O2 Content 11.6 (0.0-44) 08/31/20 04:10 POC ABG Base Excess 3.6 09/01/20 12:51 ABG Base Excess 1.0 mmol/L (-2.0-3.0) 08/31/20 04:10 ABG Hemoglobin 9.5 (12.0-17.5) L 09/01/20 12:51 ABG Oxyhemoglobin 97.3 (94-98) 09/01/20 12:51 ABG Carboxyhemoglobin 1.4 % (0.0-5.0) 08/31/20 04:10 ABG Methemoglobin 0.3 (0.0-1.5) 09/01/20 12:51 ABG Sodium 130.4 mmol/L (136.0-145.0) L 09/01/20 12:51 ABG Potassium 3.4 mmol/L (3.40-4.50) 09/01/20 12:51 ABG Chloride 98.0 mmol/L (98-107) 09/01/20 12:51 ABG Glucose 208 mg/dL (65-95) H 09/01/20 12:51 Oxyhemoglobin 95.9 % (95.0-99.0) 08/31/20 04:10 Carboxyhemoglobin 0.4 (0.5-1.5) L 09/01/20 12:51 FiO2 30 % 08/31/20 04:10 FiO2 % 30.0 09/01/20 12:51 Sodium 134 mmol/L (137-145) L 09/01/20 09:41 Potassium 4.0 mmol/L (3.6-5.0) 09/01/20 09:41 Chloride 95.2 mmol/L (98-107) L 09/01/20 09:41 Carbon Dioxide 23 mmol/L (22-30) 09/01/20 09:41 Anion Gap 20 mmol/L 09/01/20 09:41 BUN 81 mg/dL (7-17) H 09/01/20 09:41 Creatinine 3.7 mg/dL (0.6-1.2) H 09/01/20 09:41 Estimated GFR 12 ml/min 09/01/20 09:41 BUN/Creatinine Ratio 22 % 09/01/20 09:41 Glucose 201 mg/dL (65-100) H 09/01/20 09:41 POC Glucose 182 mg/dL (70-105) H 09/01/20 13:08 Lactic Acid 1.80 mmol/L (0.7-2.0) 08/25/20 12:45 Calcium 8.6 mg/dL (8.4-10.2) 09/01/20 09:41 Phosphorus 4.60 mg/dL (2.5-4.5) H 09/01/20 09:41 Magnesium 2.40 mg/dL (1.7-2.3) H 09/01/20 09:41 Total Bilirubin < 0.20 mg/dL (0.1-1.2) 08/28/20 04:19 AST 37 units/L (5-40) 08/28/20 04:19 ALT 27 units/L (7-56) 08/28/20 04:19 Alkaline Phosphatase 84 units/L (35-129) 08/28/20 04:19 Troponin T 0.057 ng/mL (0.00-0.029) H 08/25/20 11:23 C-Reactive Protein 7.80 mg/dL (0.00-1.30) H 08/26/20 18:50 Total Protein 4.8 g/dL (6.3-8.2) L 08/28/20 04:19 Albumin 2.4 g/dL (3.9-5) L 08/28/20 04:19 Albumin/Globulin Ratio 1.0 % 08/28/20 04:19 Triglycerides 111 mg/dL (2-149) 08/29/20 04:32 Cholesterol 158 mg/dL (50-199) 08/25/20 11:23 LDL Cholesterol Direct 101 mg/dL (50-130) 08/25/20 11:23 HDL Cholesterol 50 mg/dL (40-59) 08/25/20 11:23 Cholesterol/HDL Ratio 3.16 % 08/25/20 11:23 Procalcitonin 0.41 ng/mL (<0.15) 08/26/20 18:50 Arterial Blood Glucose 208 mg/dL (65-95) H 09/01/20 12:51 Arterial Blood Ionized Calcium 4.5 mg/dL (4.6-5.3) L 09/01/20 12:51 Urine Color Yellow (Yellow) 08/25/20 11:17 Urine Turbidity Cloudy (Clear) 08/25/20 11:17 Urine pH 7.0 (5.0-7.0) 08/25/20 11:17 Ur Specific [place] 1.012 (1.003-1.030) 08/25/20 11:17 Urine Protein >500 mg/dL (Negative) 08/25/20 11:17 Urine Glucose (UA) >=500 mg/dL (Negative) 08/25/20 11:17 Urine Ketones Neg mg/dL (Negative) 08/25/20 11:17 Urine Blood Sm (Negative) 08/25/20 11:17 Urine Nitrite Neg (Negative) 08/25/20 11:17 Urine Bilirubin Neg (Negative) 08/25/20 11:17 Urine Urobilinogen < 2.0 mg/dL (<2.0) 08/25/20 11:17 Ur Leukocyte Esterase Neg (Negative) 08/25/20 11:17 Urine WBC (Auto) 31.0 /HPF (0.0-6.0) H 08/25/20 11:17 Urine RBC (Auto) 28.0 /HPF (0.0-6.0) 08/25/20 11:17 U Epithel Cells (Auto) 5.0 /HPF (0-13.0) 08/25/20 11:17 Urine Bacteria (Auto) 1+ /HPF (Negative) 08/25/20 11:17 Urine WBC Clumps Few /HPF 08/25/20 11:17 Ur Renal Epithelial Cell 4 /LPF 08/25/20 11:17 Hyaline Casts 28 /LPF 08/25/20 11:17 Urine Creatinine 67.4 mg/dL (0.1-20.0) H 08/26/20 17:00 Urine Sodium 12 mmol/L 08/26/20 17:00 Coronavirus (PCR) Negative (Negative) 08/26/20 Unknown Foreman/IV: Voiding Method Indwelling Catheter Active Medications - Current Medications Current Medications: Generic Name Dose Route Start Last Admin Trade Name Freq PRN Reason Stop Dose Admin Albuterol 2.5 mg 08/25/20 14:55 Albuterol 2.5 Mg/3 Ml Nebu IH Q3HRT PRN Shortness Of Breath Amlodipine Besylate 5 mg 08/28/20 10:00 09/01/20 09:15 Amlodipine 5 Mg Tab PO 5 mg QDAY TERA Administration Lipase/Protease/Amylase 1 each 08/26/20 12:15 Lipase 10,500/Protease 25,000/Amylase 43,750 (Units) Dr Gu FEEDTUBE PRN PRN For Clogged Feeding Tube Aspirin 81 mg 08/27/20 10:00 09/01/20 09:13 Aspirin 81 Mg Tab Chew PO 81 mg QDAY TERA Administration Atorvastatin Calcium 40 mg 08/26/20 22:00 08/31/20 21:18 Atorvastatin 40 Mg Tab PO 40 mg QHS TERA Administration Dextrose 50 ml 08/26/20 19:18 Dextrose 50% In Water (25gm) 50 Ml Syringe IV Q30MIN PRN Hypoglycemia Protocol Famotidine 20 mg 08/28/20 10:00 09/01/20 09:13 Famotidine 20 Mg Tab PO 20 mg DAILY TERA Administration Heparin Sodium (Porcine) 5,000 unit 08/26/20 22:00 09/01/20 09:24 Heparin 5,000 Unit/1 Ml Vial SUB-Q 5,000 unit Q12HR TERA Administration Hydralazine HCl 10 mg 08/26/20 01:20 08/31/20 08:45 Hydralazine 20 Mg/1 Ml Inj IV 10 mg Q4HR PRN Administration Blood Pressure Hydralazine HCl 50 mg 09/01/20 14:00 Hydralazine 25 Mg Tab PO Q8HR TERA Hydrophilic Ointment 1 applic 08/25/20 11:07 08/25/20 11:57 Lip Therapy Vaseline TP 1 applic Q2HR PRN Administration Dry Lips Lacosamide 100 mg/ Sodium 110 mls @ 100 mls/hr 08/31/20 14:00 09/01/20 10:11 Chloride IV 09/01/20 23:05 100 mls/hr Q12HR TERA Administration Insulin Glargine 25 units 09/01/20 22:00 Insulin Glargine 100 Units/Ml SUB-Q QHS TERA Insulin Human Lispro 0 unit 08/27/20 12:00 09/01/20 13:10 Insulin Lispro 100 Unit/Ml SUB-Q 2 unit Q6HR [facility] Administration Protocol Lacosamide 100 mg 09/02/20 10:00 Lacosamide 100 Mg Tab PO Q12HR TERA Levetiracetam 750 mg 08/31/20 13:00 09/01/20 09:15 Levetiracetam 500 Mg/5 Ml Oral Liqd PO 750 mg BID TERA Administration Metoprolol Tartrate 12.5 mg 08/29/20 22:00 09/01/20 09:13 Metoprolol Tartrate 25 Mg Tab PO 12.5 mg BID TERA Administration Multi-Ingred Cream/Lotion/Oil/Oint 1 applic 08/25/20 11:07 Mineral Oil/Petrolatum, White Ophth Oint 3.5 Gm OU Q4HR PRN Dry Eye(s) Senna/Docusate Sodium 1 tab 08/25/20 22:00 09/01/20 10:11 Sennosides/Docusate Sodium 8.6/50 Mg Tab FEEDTUBE 1 tab BID TERA Administration Simple Syrup 15 ml 08/26/20 12:15 Simple Syrup 15 Ml FEEDTUBE PRN PRN Hypoglycemia Simple Syrup 30 ml 08/26/20 12:15 Simple Syrup 15 Ml FEEDTUBE PRN PRN Hypoglycemia Sodium Bicarbonate 325 mg 08/26/20 12:15 Sodium Bicarbonate 325 Mg Tab FEEDTUBE PRN PRN For Clogged Feeding Tube Sodium Chloride 10 ml 08/25/20 22:00 09/01/20 09:24 Sodium Chloride 0.9% 10 Ml Flush Syringe IV 10 ml BID TERA Administration Sodium Chloride 10 ml 08/25/20 14:55 08/29/20 04:05 Sodium Chloride 0.9% 10 Ml Flush Syringe IV 10 ml PRN PRN Administration LINE FLUSH Tamsulosin HCl 0.4 mg 08/31/20 15:00 09/01/20 09:14 Tamsulosin 0.4 Mg Cap PO 0.4 mg QDAY TERA Administration Nutrition/Malnutrition Assess - Dietary Evaluation Nutrition/Malnutrition Findings: Nutrition Notes Start: 08/26/20 10:21 Freq: Status: Active Protocol: Document 09/01/20 11:05 (Rec: 09/01/20 11:13 [id number]) Nutrition Notes Initial or Follow up Reassessment Current Diagnosis Acute Kidney Injury,CKD(stage I-IV),Diabetes,Hypertension, Heart Failure,Respiratory Failure Other Pertinent Diagnosis cardiac arrest, acute encephalopathy, pneu, anoxIC brain injury, GERD Current Diet Nepro 1.8 at 30 ml/hr Labs/Tests Na 134 BUN 81 Cr 3.7 Phos 4.6 Mg 2.4 Pertinent Medications [place] Height 5 ft 5 in Weight 95.4 kg [place] Body Weight (kg) 56.81 BMI 34.9 Weight change and time frame wt change noted, pt has edema Weight Status Obese Subjective/Other Information FU for TF tolerance. Observed TF running at goal rate. No BM in chart, informed RN. Percent of energy/protein needs met: 100%/58% Burn Absent Trauma Absent Current % PO Negligible Minimum of two criteria No physical signs of malnutrition #1 Nutrition Diagnosis Inadequate oral intake Diagnosis Progress(for reassessment Continues documentation) Is patient on ventilator? Yes Is Patient Ambulatory and/or Out of Bed No REE-([place] or-confined to bed) 1740.000 Kcal/Kg value to use for calculation 13 Approximate Energy Requirements Using 1240 kcal/Kg Calculation Used for Recommendations Kcal/kg Additional Notes protein needs: >114g (>2 g/ kgIBW) fluid needs 1500 - 1900 ml or per MD order Nutrition Intervention Change Diet Order: Continue TF Nutrition Support: Nepro at 30 ml/hr with a free water flush of 130 ml q4h Kcal 1,296 Protein (gm) 58 Fluid (mL) 523 Goal #1 Meet at least 75% of kcal and protein needs as best as possible Anticipated Discharge Needs: unable to determine at this time Follow-Up By: 09/06/20 Additional Comments FU for TF tolerance, BM <AMBER GONZALEZ - Last Filed: 09/02/20 12:53> Assessment and Plan Assessment and plan: Agree with assessment and plan by nurse practitioner, I have personally examined the patient, conducted chart review. Spoke with son at the bedside, explained to him the situation pertaining to anoxic brain injury. Explained to him transfer to LTAC but stressed hospice and palliative care. Family will be here on Friday to make decision about the patient. Hospitalist Physical - Constitutional Vitals: Temp Pulse Resp BP Pulse Ox 97.8 F 68 18 115/41 100 09/02/20 12:00 09/02/20 11:21 09/02/20 11:21 09/02/20 11:21 09/02/20 11:21 HEART Score - HEART Score Troponin: Troponin T 0.057 ng/mL (0.00-0.029) H 08/25/20 11:23 Results - Labs CBC & Chem 7: 09/01/20 09:41 09/02/20 07:35 Labs: Laboratory Last Values WBC 11.5 K/mm3 (4.5-11.0) H 09/01/20 09:41 RBC 3.58 M/mm3 (3.65-5.03) L 09/01/20 09:41 Hgb 9.2 gm/dl (10.1-14.3) L 09/01/20 09:41 Hct 29.7 % (30.3-42.9) L 09/01/20 09:41 MCV 83 fl (79-97) 09/01/20 09:41 MCH 26 pg (28-32) L 09/01/20 09:41 MCHC 31 % (30-34) 09/01/20 09:41 RDW 16.0 % (13.2-15.2) H 09/01/20 09:41 Plt Count 287 K/mm3 (140-440) 09/01/20 09:41 Lymph % (Auto) 5.9 % (13.4-35.0) L 08/27/20 07:24 [place] % (Auto) 4.6 % (0.0-7.3) 08/27/20 07:24 Eos % (Auto) 2.2 % (0.0-4.3) 08/27/20 07:24 Baso % (Auto) 0.4 % (0.0-1.8) 08/27/20 07:24 Lymph # (Auto) 0.8 K/mm3 (1.2-5.4) L 08/27/20 07:24 [place] # (Auto) 0.6 K/mm3 (0.0-0.8) 08/27/20 07:24 Eos # (Auto) 0.3 K/mm3 (0.0-0.4) 08/27/20 07:24 Baso # (Auto) 0.0 K/mm3 (0.0-0.1) 08/27/20 07:24 Add Manual Diff Complete 08/26/20 05:04 Total Counted 100 08/26/20 05:04 Seg Neutrophils % 86.9 % (40.0-70.0) H 08/27/20 07:24 Seg Neuts % (Manual) 96.0 % (40.0-70.0) H 08/26/20 05:04 Band Neutrophils % 2.0 % 08/25/20 11:23 Lymphocytes % (Manual) 1.0 % (13.4-35.0) L 08/26/20 05:04 Monocytes % (Manual) 3.0 % (0.0-7.3) 08/26/20 05:04 Eosinophils % (Manual) 3.0 % (0.0-4.3) 08/25/20 11:23 Metamyelocytes % 1.0 % 08/25/20 11:23 Nucleated RBC % Not Reportable 08/26/20 05:04 Seg Neutrophils # 11.0 K/mm3 (1.8-7.7) H 08/27/20 07:24 Seg Neutrophils # Man 17.2 K/mm3 (1.8-7.7) H 08/26/20 05:04 Band Neutrophils # 0.0 K/mm3 08/26/20 05:04 Lymphocytes # (Manual) 0.2 K/mm3 (1.2-5.4) L 08/26/20 05:04 Abs React Lymphs (Man) 0.0 K/mm3 08/26/20 05:04 Monocytes # (Manual) 0.5 K/mm3 (0.0-0.8) 08/26/20 05:04 Eosinophils # (Manual) 0.0 K/mm3 (0.0-0.4) 08/26/20 05:04 Basophils # (Manual) 0.0 K/mm3 (0.0-0.1) 08/26/20 05:04 Metamyelocytes # 0.0 K/mm3 08/26/20 05:04 Myelocytes # 0.0 K/mm3 08/26/20 05:04 Promyelocytes # 0.0 K/mm3 08/26/20 05:04 Blast Cells # 0.0 K/mm3 08/26/20 05:04 WBC Morphology Not Reportable 08/26/20 05:04 Hypersegmented Neuts Not Reportable 08/26/20 05:04 Hyposegmented Neuts Not Reportable 08/26/20 05:04 Hypogranular Neuts Not Reportable 08/26/20 05:04 Smudge Cells Not Reportable 08/26/20 05:04 Toxic Granulation Not Reportable 08/26/20 05:04 Toxic Vacuolation Not Reportable 08/26/20 05:04 Dohle Bodies Not Reportable 08/26/20 05:04 Pelger-Huet Anomaly Not Reportable 08/26/20 05:04 Jannette Rods Not Reportable 08/26/20 05:04 Platelet Estimate Consistent w auto 08/26/20 05:04 Clumped Platelets Not Reportable 08/26/20 05:04 Plt Clumps, EDTA Not Reportable 08/26/20 05:04 Large Platelets Not Reportable 08/26/20 05:04 Giant Platelets Not Reportable 08/26/20 05:04 Platelet Satelliting Not Reportable 08/26/20 05:04 Plt Morphology Comment Not Reportable 08/26/20 05:04 RBC Morphology Not Reportable 08/26/20 05:04 Dimorphic RBCs Not Reportable 08/26/20 05:04 Polychromasia Not Reportable 08/26/20 05:04 Hypochromasia Not Reportable 08/26/20 05:04 Poikilocytosis Not Reportable 08/26/20 05:04 Anisocytosis 1+ 08/26/20 05:04 Microcytosis Not Reportable 08/26/20 05:04 Macrocytosis Not Reportable 08/26/20 05:04 Spherocytes Not Reportable 08/26/20 05:04 Pappenheimer Bodies Not Reportable 08/26/20 05:04 Sickle Cells Not Reportable 08/26/20 05:04 Target Cells Not Reportable 08/26/20 05:04 Tear Drop Cells Not Reportable 08/26/20 05:04 Ovalocytes Not Reportable 08/26/20 05:04 Helmet Cells Not Reportable 08/26/20 05:04 [place] Bodies Not Reportable 08/26/20 05:04 [place] Rings Not Reportable 08/26/20 05:04 [place] Cells Not Reportable 08/26/20 05:04 Bite Cells Not Reportable 08/26/20 05:04 Crenated Cell Not Reportable 08/26/20 05:04 Elliptocytes Not Reportable 08/26/20 05:04 Acanthocytes (Spur) Not Reportable 08/26/20 05:04 Rouleaux Not Reportable 08/26/20 05:04 Hemoglobin C Crystals Not Reportable 08/26/20 05:04 Schistocytes Not Reportable 08/26/20 05:04 Malaria parasites Not Reportable 08/26/20 05:04 Shabbir Bodies Not Reportable 08/26/20 05:04 Hem Pathologist Commnt No 08/26/20 05:04 D-Dimer > 70041 ng/mlDDU (0-234) H 08/25/20 11:23 ABG pH 7.462 (7.320-7.450) H 09/01/20 12:51 POC ABG pCO2 39.5 mmHg (32.0-48.0) 09/01/20 12:51 ABG pCO2 36.6 mm Hg 08/31/20 04:10 POC ABG pO2 102.7 mmHg (83-108) 09/01/20 12:51 ABG pO2 99.6 mm Hg (80.0-90.0) H 08/31/20 04:10 POC ABG HCO3 27.6 09/01/20 12:51 ABG HCO3 24.9 mmol/L (20.0-26.0) 08/31/20 04:10 ABG O2 Saturation 98.0 (0-100) 09/01/20 12:51 ABG O2 Content 11.6 (0.0-44) 08/31/20 04:10 POC ABG Base Excess 3.6 09/01/20 12:51 ABG Base Excess 1.0 mmol/L (-2.0-3.0) 08/31/20 04:10 ABG Hemoglobin 9.5 (12.0-17.5) L 09/01/20 12:51 ABG Oxyhemoglobin 97.3 (94-98) 09/01/20 12:51 ABG Carboxyhemoglobin 1.4 % (0.0-5.0) 08/31/20 04:10 ABG Methemoglobin 0.3 (0.0-1.5) 09/01/20 12:51 ABG Sodium 130.4 mmol/L (136.0-145.0) L 09/01/20 12:51 ABG Potassium 3.4 mmol/L (3.40-4.50) 09/01/20 12:51 ABG Chloride 98.0 mmol/L (98-107) 09/01/20 12:51 ABG Glucose 208 mg/dL (65-95) H 09/01/20 12:51 Oxyhemoglobin 95.9 % (95.0-99.0) 08/31/20 04:10 Carboxyhemoglobin 0.4 (0.5-1.5) L 09/01/20 12:51 FiO2 30 % 08/31/20 04:10 FiO2 % 30.0 09/01/20 12:51 Sodium 135 mmol/L (137-145) L 09/02/20 07:35 Potassium 3.8 mmol/L (3.6-5.0) 09/02/20 07:35 Chloride 96.0 mmol/L (98-107) L 09/02/20 07:35 Carbon Dioxide 26 mmol/L (22-30) 09/02/20 07:35 Anion Gap 17 mmol/L 09/02/20 07:35 BUN 88 mg/dL (7-17) H 09/02/20 07:35 Creatinine 3.7 mg/dL (0.6-1.2) H 09/02/20 07:35 Estimated GFR 12 ml/min 09/02/20 07:35 BUN/Creatinine Ratio 24 % 09/02/20 07:35 Glucose 187 mg/dL (65-100) H 09/02/20 07:35 POC Glucose 228 mg/dL (70-105) H 09/02/20 11:16 Lactic Acid 1.80 mmol/L (0.7-2.0) 08/25/20 12:45 Calcium 8.8 mg/dL (8.4-10.2) 09/02/20 07:35 Phosphorus 4.60 mg/dL (2.5-4.5) H 09/01/20 09:41 Magnesium 2.40 mg/dL (1.7-2.3) H 09/01/20 09:41 Total Bilirubin < 0.20 mg/dL (0.1-1.2) 08/28/20 04:19 AST 37 units/L (5-40) 08/28/20 04:19 ALT 27 units/L (7-56) 08/28/20 04:19 Alkaline Phosphatase 84 units/L (35-129) 08/28/20 04:19 Troponin T 0.057 ng/mL (0.00-0.029) H 08/25/20 11:23 C-Reactive Protein 7.80 mg/dL (0.00-1.30) H 08/26/20 18:50 Total Protein 4.8 g/dL (6.3-8.2) L 08/28/20 04:19 Albumin 2.4 g/dL (3.9-5) L 08/28/20 04:19 Albumin/Globulin Ratio 1.0 % 08/28/20 04:19 Triglycerides 111 mg/dL (2-149) 08/29/20 04:32 Cholesterol 158 mg/dL (50-199) 08/25/20 11:23 LDL Cholesterol Direct 101 mg/dL (50-130) 08/25/20 11:23 HDL Cholesterol 50 mg/dL (40-59) 08/25/20 11:23 Cholesterol/HDL Ratio 3.16 % 08/25/20 11:23 Procalcitonin 0.41 ng/mL (<0.15) 08/26/20 18:50 Arterial Blood Glucose 208 mg/dL (65-95) H 09/01/20 12:51 Arterial Blood Ionized Calcium 4.5 mg/dL (4.6-5.3) L 09/01/20 12:51 Urine Color Yellow (Yellow) 08/25/20 11:17 Urine Turbidity Cloudy (Clear) 08/25/20 11:17 Urine pH 7.0 (5.0-7.0) 08/25/20 11:17 Ur Specific [place] 1.012 (1.003-1.030) 08/25/20 11:17 Urine Protein >500 mg/dL (Negative) 08/25/20 11:17 Urine Glucose (UA) >=500 mg/dL (Negative) 08/25/20 11:17 Urine Ketones Neg mg/dL (Negative) 08/25/20 11:17 Urine Blood Sm (Negative) 08/25/20 11:17 Urine Nitrite Neg (Negative) 08/25/20 11:17 Urine Bilirubin Neg (Negative) 08/25/20 11:17 Urine Urobilinogen < 2.0 mg/dL (<2.0) 08/25/20 11:17 Ur Leukocyte Esterase Neg (Negative) 08/25/20 11:17 Urine WBC (Auto) 31.0 /HPF (0.0-6.0) H 08/25/20 11:17 Urine RBC (Auto) 28.0 /HPF (0.0-6.0) 08/25/20 11:17 U Epithel Cells (Auto) 5.0 /HPF (0-13.0) 08/25/20 11:17 Urine Bacteria (Auto) 1+ /HPF (Negative) 08/25/20 11:17 Urine WBC Clumps Few /HPF 08/25/20 11:17 Ur Renal Epithelial Cell 4 /LPF 08/25/20 11:17 Hyaline Casts 28 /LPF 08/25/20 11:17 Urine Creatinine 67.4 mg/dL (0.1-20.0) H 08/26/20 17:00 Urine Sodium 12 mmol/L 08/26/20 17:00 Coronavirus (PCR) Negative (Negative) 08/26/20 Unknown Foreman/IV: Voiding Method Indwelling Catheter Active Medications - Current Medications Current Medications: Generic Name Dose Route Start Last Admin Trade Name Freq PRN Reason Stop Dose Admin Albuterol 2.5 mg 08/25/20 14:55 Albuterol 2.5 Mg/3 Ml Nebu IH Q3HRT PRN Shortness Of Breath Amlodipine Besylate 5 mg 08/28/20 10:00 09/02/20 09:11 Amlodipine 5 Mg Tab PO Not Given QDAY TERA Lipase/Protease/Amylase 1 each 08/26/20 12:15 Lipase 10,500/Protease 25,000/Amylase 43,750 (Units) Dr Gu FEEDTUBE PRN PRN For Clogged Feeding Tube Aspirin 81 mg 08/27/20 10:00 09/02/20 09:10 Aspirin 81 Mg Tab Chew PO 81 mg QDAY TERA Administration Atorvastatin Calcium 40 mg 08/26/20 22:00 09/01/20 21:33 Atorvastatin 40 Mg Tab PO 40 mg QHS TERA Administration Dextrose 50 ml 08/26/20 19:18 Dextrose 50% In Water (25gm) 50 Ml Syringe IV Q30MIN PRN Hypoglycemia Protocol Famotidine 20 mg 08/28/20 10:00 09/02/20 09:10 Famotidine 20 Mg Tab PO 20 mg DAILY TERA Administration Heparin Sodium (Porcine) 5,000 unit 08/26/20 22:00 09/02/20 09:13 Heparin 5,000 Unit/1 Ml Vial SUB-Q 5,000 unit Q12HR TERA Administration Hydralazine HCl 10 mg 08/26/20 01:20 08/31/20 08:45 Hydralazine 20 Mg/1 Ml Inj IV 10 mg Q4HR PRN Administration Blood Pressure Hydralazine HCl 50 mg 09/01/20 14:00 09/02/20 06:30 Hydralazine 25 Mg Tab PO 50 mg Q8HR TERA Administration Hydrophilic Ointment 1 applic 08/25/20 11:07 08/25/20 11:57 Lip Therapy Vaseline TP 1 applic Q2HR PRN Administration Dry Lips Insulin Glargine 25 units 09/01/20 22:00 09/01/20 21:37 Insulin Glargine 100 Units/Ml SUB-Q 25 units QHS TERA Administration Insulin Human Lispro 0 unit 08/27/20 12:00 09/02/20 06:32 Insulin Lispro 100 Unit/Ml SUB-Q 2 unit Q6HR TERA Administration Protocol Lacosamide 100 mg 09/02/20 10:00 09/02/20 09:10 Lacosamide 100 Mg Tab PO 100 mg Q12HR TERA Administration Levetiracetam 750 mg 08/31/20 13:00 09/02/20 09:10 Levetiracetam 500 Mg/5 Ml Oral Liqd PO 750 mg BID TERA Administration Metoprolol Tartrate 12.5 mg 08/29/20 22:00 09/02/20 09:12 Metoprolol Tartrate 25 Mg Tab PO Not Given BID TERA Multi-Ingred Cream/Lotion/Oil/Oint 1 applic 08/25/20 11:07 Mineral Oil/Petrolatum, White Ophth Oint 3.5 Gm OU Q4HR PRN Dry Eye(s) Senna/Docusate Sodium 1 tab 08/25/20 22:00 09/02/20 03:20 Sennosides/Docusate Sodium 8.6/50 Mg Tab FEEDTUBE 1 tab BID TERA Administration Simple Syrup 15 ml 08/26/20 12:15 Simple Syrup 15 Ml FEEDTUBE PRN PRN Hypoglycemia Simple Syrup 30 ml 08/26/20 12:15 Simple Syrup 15 Ml FEEDTUBE PRN PRN Hypoglycemia Sodium Bicarbonate 325 mg 08/26/20 12:15 Sodium Bicarbonate 325 Mg Tab FEEDTUBE PRN PRN For Clogged Feeding Tube Sodium Chloride 10 ml 08/25/20 22:00 09/02/20 09:12 Sodium Chloride 0.9% 10 Ml Flush Syringe IV 10 ml BID TERA Administration Sodium Chloride 10 ml 08/25/20 14:55 08/29/20 04:05 Sodium Chloride 0.9% 10 Ml Flush Syringe IV 10 ml PRN PRN Administration LINE FLUSH Tamsulosin HCl 0.4 mg 08/31/20 15:00 09/02/20 09:10 Tamsulosin 0.4 Mg Cap PO 0.4 mg QDAY TERA Administration Nutrition/Malnutrition Assess - Dietary Evaluation Nutrition/Malnutrition Findings: Nutrition Notes Start: 08/26/20 10:21 Freq: Status: Active Protocol: Document 09/01/20 11:05 JUAN (Rec: 09/01/20 11:13 JUAN [id number]) Nutrition Notes Initial or Follow up Reassessment Current Diagnosis Acute Kidney Injury,CKD(stage I-IV),Diabetes,Hypertension, Heart Failure,Respiratory Failure Other Pertinent Diagnosis cardiac arrest, acute encephalopathy, pneu, anoxIC brain injury, GERD Current Diet Nepro 1.8 at 30 ml/hr Labs/Tests Na 134 BUN 81 Cr 3.7 Phos 4.6 Mg 2.4 Pertinent Medications [place] Height 5 ft 5 in Weight 95.4 kg [place] Body Weight (kg) 56.81 BMI 34.9 Weight change and time frame wt change noted, pt has edema Weight Status Obese Subjective/Other Information FU for TF tolerance. Observed TF running at goal rate. No BM in chart, informed RN. Percent of energy/protein needs met: 100%/58% Burn Absent Trauma Absent Current % PO Negligible Minimum of two criteria No physical signs of malnutrition #1 Nutrition Diagnosis Inadequate oral intake Diagnosis Progress(for reassessment Continues documentation) Is patient on ventilator? Yes Is Patient Ambulatory and/or Out of Bed No REE-([facility]-confined to bed) 1740.000 Kcal/Kg value to use for calculation 13 Approximate Energy Requirements Using 1240 kcal/Kg Calculation Used for Recommendations Kcal/kg Additional Notes protein needs: >114g (>2 g/ kgIBW) fluid needs 1500 - 1900 ml or per MD order Nutrition Intervention Change Diet Order: Continue TF Nutrition Support: Nepro at 30 ml/hr with a free water flush of 130 ml q4h Kcal 1,296 Protein (gm) 58 Fluid (mL) 523 Goal #1 Meet at least 75% of kcal and protein needs as best as possible Anticipated Discharge Needs: unable to determine at this time Follow-Up By: 09/06/20 Additional Comments FU for TF tolerance, BM
[2020-09-01] MEDS: hydrALAZINE 25 MG TAB PO SCH ×2 (14:40→21:32)
--- NOTE | 2020-09-01 15:22 | Progress Note ---
Assessment and Plan Acute hypoxemic respiratory failure Cardiac arrest with ROSC Acute encephalopathy Multifocal pneumonia Possible bilateral pulmonary edema Congestive heart failure with an acute exacerbation Anemia Hyperkalemia Lactic acidosis Acute kidney injury Elevated serum transaminases Non-ST elevation SC Oropharyngeal dysphagia - Surgery consulted for trach & PEG - will plan for thoracentesis next week iof family decides on continued aggressive care - they will also discuss CODE status this weekend - continue Keppra at 750 mg bid - continue Vimpat - continue neurology evaluation - continue Daily SAT and SBT assessment as tolerated meantime - continue care as below otherwise; - continue to wean supplemental oxygen for target O2 sat's > 92% acutely - VAP bundle addressed - continue lung protective strategies - continue bronchodilators with pulmonary hygiene per RT - wean per pulmonary driven protocols otherwise - continue accuchecks with glycemic control per SSI (While critically ill target blood glucose of 140-180 mg/dL; avoid hypoglycemia) - sedation prn for target RASS -1 to -2 - avoid nephrotoxins, renally dose all medications - continue to avoid benzodiazepine's, reduce the possibility of delirium - complete AB's per ID rec's - prn analgesia per CPOT score - Maintenance of sleep-wake cycle, avoid delirium - enteral nutritional support at goal rate as tolerated - G.I. & VTE prophylaxis - PT/OT/ROM exercises - continue mobility protocols for pressure ulcer prophylaxis - Monitor hemodynamics closely - continue other care per attending / other consultants - discharge planning ongoing concurrently COVID SPECIFIC INTERVENTIONS - COVID-19 PCR negative .... Re-evaluate in am & prn CONDITION: CRITICAL PROGNOSIS: GUARDED CODE STATUS: FULL CODE The high probability of a clinically significant, sudden or life-threatening deterioration of the [respiratory, cardiovascular & neurologic] system(s) required my full and direct attention, intervention and personal management. The aggregate critical care time was [35] minutes without overlap. Time includes spent on; [x] Data Review and interpretation [x] Patient assessment and monitoring of vital signs [x] Documentation [x] Medication orders and management Subjective Date of service: 09/01/20 Principal diagnosis: Ac. hypoxemic resp failure; Cardiac arrest; AMS; AE-CHF; Hyperkalemia; FLORIDALMA Interval history: Patient is seen today for: Acute hypoxemic respiratory failure; Cardiac arrest with ROSC; Acute encephalopathy; Multifocal pneumonia; pulmonary edema; AE-CHF; Hyperkalemia; FLORIDALMA; NSTEMI Seen and examined at bedside; 24hour events reviewed; nursing and respiratory care staff consulted; no adverse overnight events reported to me; resting in be d; remains on MVS; her son visited and care plan was discussed; i also discussed trach & PEG with him and consult placed so family can have details for their weekend deliberations on goals of carer going forwards Objective Vital Signs - 12hr 09/01/20 09/01/20 09/01/20 03:30 03:43 04:00 Temperature Pulse Rate 64 64 65 Respiratory 18 17 Rate Blood Pressure 129/60 129/60 129/60 O2 Sat by Pulse 98 100 100 Oximetry 09/01/20 09/01/20 09/01/20 04:31 05:00 05:30 Temperature Pulse Rate 68 63 64 Respiratory 17 16 16 Rate Blood Pressure 118/64 124/55 127/58 O2 Sat by Pulse 98 98 97 Oximetry 09/01/20 09/01/20 09/01/20 06:01 06:30 07:00 Temperature Pulse Rate 70 69 69 Respiratory 18 20 20 Rate Blood Pressure 164/67 162/69 150/71 O2 Sat by Pulse 99 98 98 Oximetry 09/01/20 09/01/20 09/01/20 07:31 08:00 08:01 Temperature 97.5 F L Pulse Rate 70 66 Respiratory 17 18 Rate Blood Pressure 168/65 126/54 O2 Sat by Pulse 98 98 Oximetry 09/01/20 09/01/20 09/01/20 08:30 08:37 09:00 Temperature Pulse Rate 67 74 66 Respiratory 17 23 14 Rate Blood Pressure 135/61 135/61 138/61 O2 Sat by Pulse 99 100 99 Oximetry 09/01/20 09/01/20 09/01/20 09:13 09:15 09:30 Temperature Pulse Rate 67 66 66 Respiratory 15 Rate Blood Pressure 138/61 138/61 128/58 O2 Sat by Pulse 99 Oximetry 09/01/20 09/01/20 09/01/20 10:00 10:31 11:01 Temperature Pulse Rate 63 63 63 Respiratory 15 18 18 Rate Blood Pressure 135/57 120/66 109/67 O2 Sat by Pulse 98 99 99 Oximetry 09/01/20 09/01/20 09/01/20 11:31 12:00 12:30 Temperature Pulse Rate 57 L 57 L 57 L Respiratory 16 16 14 Rate Blood Pressure 121/54 132/58 136/55 O2 Sat by Pulse 99 99 99 Oximetry 09/01/20 09/01/20 09/01/20 13:01 13:05 13:13 Temperature 97.5 F L Pulse Rate 62 61 Respiratory 17 16 Rate Blood Pressure 133/64 133/64 O2 Sat by Pulse 100 100 Oximetry 09/01/20 14:40 Temperature Pulse Rate 62 Respiratory Rate Blood Pressure 144/42 O2 Sat by Pulse Oximetry Constitutional: other (elderly obese female with mildly increased respirtatory effort at rest on MVS ) Eyes: non-icteric ENT: oropharynx moist, oropharyngeal exudate pre (clear), other (ETT 24 cm DIMAS) Neck: supple, no lymphadenopathy, no JVD Effort: mildly labored Ascultation: Bilateral: diminished breath sounds (bases), rhonchi Percussion: Bilateral: not dull Cardiovascular: regular rate and rhythm, other (S1,S2) Gastrointestinal: normoactive bowel sounds, soft, non-tender, non-distended Integumentary: normal Extremities: no cyanosis, no edema, pulses normal, no ischemia or petechiae Neurologic: pupils equal and round, unable to assess, other (encephalopathic) Psychiatric: other (unable to assess re: AMS) CBC and BMP: 09/01/20 09:41 09/01/20 09:41 ABG, PT/INR, D-dimer: ABG ABG pH 7.462 (7.320-7.450) H 09/01/20 12:51 POC ABG pCO2 39.5 mmHg (32.0-48.0) 09/01/20 12:51 ABG pCO2 36.6 mm Hg 08/31/20 04:10 POC ABG pO2 102.7 mmHg (83-108) 09/01/20 12:51 ABG pO2 99.6 mm Hg (80.0-90.0) H 08/31/20 04:10 POC ABG HCO3 27.6 09/01/20 12:51 ABG O2 Saturation 98.0 (0-100) 09/01/20 12:51 PT/INR, D-dimer D-Dimer > 51838 ng/mlDDU (0-234) H 08/25/20 11:23 Abnormal lab findings: Abnormal Labs 08/25/20 08/25/20 08/25/20 11:14 11:17 11:23 WBC 11.5 H RBC 3.22 L Hgb 8.6 L Hct 27.6 L MCH 27 L RDW 15.6 H Lymph % (Auto) Lymph # (Auto) Seg Neutrophils % Seg Neuts % (Manual) 89.0 H Lymphocytes % (Manual) 5.0 L Seg Neutrophils # Seg Neutrophils # Man 10.2 H Lymphocytes # (Manual) 0.6 L D-Dimer ABG pH 7.290 L POC ABG pO2 161.1 H ABG pO2 ABG HCO3 ABG Hemoglobin 8.9 L ABG Oxyhemoglobin 98.6 H ABG Sodium 135.2 L ABG Potassium 5.9 H ABG Glucose 210 H Oxyhemoglobin Carboxyhemoglobin 0.4 L Sodium Potassium Chloride Carbon Dioxide BUN Creatinine Glucose POC Glucose Lactic Acid Calcium Phosphorus Magnesium AST ALT Troponin T C-Reactive Protein Total Protein Albumin Arterial Blood Glucose 210 H Arterial Blood Ionized Calcium 4.4 L Urine WBC (Auto) 31.0 H Urine Creatinine 08/25/20 08/25/20 08/25/20 11:23 11:23 11:23 WBC RBC Hgb Hct MCH RDW Lymph % (Auto) Lymph # (Auto) Seg Neutrophils % Seg Neuts % (Manual) Lymphocytes % (Manual) Seg Neutrophils # Seg Neutrophils # Man Lymphocytes # (Manual) D-Dimer > 85758 H ABG pH POC ABG pO2 ABG pO2 ABG HCO3 ABG Hemoglobin ABG Oxyhemoglobin ABG Sodium ABG Potassium ABG Glucose Oxyhemoglobin Carboxyhemoglobin Sodium Potassium 6.4 H* Chloride Carbon Dioxide 21 L BUN 52 H Creatinine 3.5 H Glucose 194 H POC Glucose Lactic Acid 3.30 H* Calcium 8.1 L Phosphorus Magnesium AST 103 H ALT 77 H Troponin T 0.057 H C-Reactive Protein Total Protein 5.8 L Albumin 3.4 L Arterial Blood Glucose Arterial Blood Ionized Calcium Urine WBC (Auto) Urine Creatinine 08/25/20 08/25/20 08/25/20 13:51 15:45 20:34 WBC RBC Hgb Hct MCH RDW Lymph % (Auto) Lymph # (Auto) Seg Neutrophils % Seg Neuts % (Manual) Lymphocytes % (Manual) Seg Neutrophils # Seg Neutrophils # Man Lymphocytes # (Manual) D-Dimer ABG pH POC ABG pO2 66.3 L ABG pO2 ABG HCO3 ABG Hemoglobin 9.1 L ABG Oxyhemoglobin 92.5 L ABG Sodium ABG Potassium ABG Glucose 225 H Oxyhemoglobin Carboxyhemoglobin Sodium Potassium Chloride Carbon Dioxide BUN Creatinine Glucose POC Glucose 188 H 233 H Lactic Acid Calcium Phosphorus Magnesium AST ALT Troponin T C-Reactive Protein Total Protein Albumin Arterial Blood Glucose 225 H Arterial Blood Ionized Calcium 4.4 L Urine WBC (Auto) Urine Creatinine 08/26/20 08/26/20 08/26/20 04:14 05:04 05:04 WBC 17.9 H RBC 3.05 L Hgb 8.3 L Hct 25.6 L MCH 27 L RDW 15.3 H Lymph % (Auto) Lymph # (Auto) Seg Neutrophils % Seg Neuts % (Manual) 96.0 H Lymphocytes % (Manual) 1.0 L Seg Neutrophils # Seg Neutrophils # Man 17.2 H Lymphocytes # (Manual) 0.2 L D-Dimer ABG pH POC ABG pO2 131.3 H ABG pO2 ABG HCO3 ABG Hemoglobin 8.6 L ABG Oxyhemoglobin 98.2 H ABG Sodium ABG Potassium ABG Glucose 182 H Oxyhemoglobin Carboxyhemoglobin 0.2 L Sodium Potassium Chloride Carbon Dioxide BUN 56 H Creatinine 3.4 H Glucose 187 H POC Glucose Lactic Acid Calcium 8.3 L Phosphorus Magnesium AST 54 H ALT 57 H Troponin T C-Reactive Protein Total Protein 5.4 L Albumin 2.9 L Arterial Blood Glucose 182 H Arterial Blood Ionized Calcium 4.3 L Urine WBC (Auto) Urine Creatinine 08/26/20 08/26/20 08/26/20 05:40 07:36 11:54 WBC RBC Hgb Hct MCH RDW Lymph % (Auto) Lymph # (Auto) Seg Neutrophils % Seg Neuts % (Manual) Lymphocytes % (Manual) Seg Neutrophils # Seg Neutrophils # Man Lymphocytes # (Manual) D-Dimer ABG pH POC ABG pO2 ABG pO2 ABG HCO3 ABG Hemoglobin ABG Oxyhemoglobin ABG Sodium ABG Potassium ABG Glucose Oxyhemoglobin Carboxyhemoglobin Sodium Potassium Chloride Carbon Dioxide BUN Creatinine Glucose POC Glucose 179 H 171 H 190 H Lactic Acid Calcium Phosphorus Magnesium AST ALT Troponin T C-Reactive Protein Total Protein Albumin Arterial Blood Glucose Arterial Blood Ionized Calcium Urine WBC (Auto) Urine Creatinine 08/26/20 08/26/20 08/26/20 15:14 17:00 18:50 WBC RBC Hgb Hct MCH RDW Lymph % (Auto) Lymph # (Auto) Seg Neutrophils % Seg Neuts % (Manual) Lymphocytes % (Manual) Seg Neutrophils # Seg Neutrophils # Man Lymphocytes # (Manual) D-Dimer ABG pH POC ABG pO2 ABG pO2 ABG HCO3 ABG Hemoglobin ABG Oxyhemoglobin ABG Sodium ABG Potassium ABG Glucose Oxyhemoglobin Carboxyhemoglobin Sodium Potassium Chloride Carbon Dioxide BUN Creatinine Glucose POC Glucose 158 H Lactic Acid Calcium Phosphorus Magnesium AST ALT Troponin T C-Reactive Protein 7.80 H Total Protein Albumin Arterial Blood Glucose Arterial Blood Ionized Calcium Urine WBC (Auto) Urine Creatinine 67.4 H 08/26/20 08/27/20 08/27/20 22:01 04:10 05:12 WBC RBC Hgb Hct MCH RDW Lymph % (Auto) Lymph # (Auto) Seg Neutrophils % Seg Neuts % (Manual) Lymphocytes % (Manual) Seg Neutrophils # Seg Neutrophils # Man Lymphocytes # (Manual) D-Dimer ABG pH 7.454 H POC ABG pO2 74.9 L ABG pO2 ABG HCO3 ABG Hemoglobin 7.9 L ABG Oxyhemoglobin ABG Sodium ABG Potassium ABG Glucose 117 H Oxyhemoglobin Carboxyhemoglobin Sodium Potassium Chloride Carbon Dioxide BUN Creatinine Glucose POC Glucose 122 H 117 H Lactic Acid Calcium Phosphorus Magnesium AST ALT Troponin T C-Reactive Protein Total Protein Albumin Arterial Blood Glucose 117 H Arterial Blood Ionized Calcium 4.4 L Urine WBC (Auto) Urine Creatinine 08/27/20 08/27/20 08/27/20 07:24 07:24 11:08 WBC 12.7 H RBC 2.92 L Hgb 8.1 L Hct 24.4 L MCH RDW 15.4 H Lymph % (Auto) 5.9 L Lymph # (Auto) 0.8 L Seg Neutrophils % 86.9 H Seg Neuts % (Manual) Lymphocytes % (Manual) Seg Neutrophils # 11.0 H Seg Neutrophils # Man Lymphocytes # (Manual) D-Dimer ABG pH POC ABG pO2 ABG pO2 ABG HCO3 ABG Hemoglobin ABG Oxyhemoglobin ABG Sodium ABG Potassium ABG Glucose Oxyhemoglobin Carboxyhemoglobin Sodium Potassium Chloride Carbon Dioxide BUN 60 H Creatinine 3.6 H Glucose 135 H POC Glucose 139 H Lactic Acid Calcium Phosphorus Magnesium AST ALT Troponin T C-Reactive Protein Total Protein 5.3 L Albumin 2.6 L Arterial Blood Glucose Arterial Blood Ionized Calcium Urine WBC (Auto) Urine Creatinine 08/27/20 08/27/20 08/27/20 11:19 17:31 23:25 WBC RBC Hgb Hct MCH RDW Lymph % (Auto) Lymph # (Auto) Seg Neutrophils % Seg Neuts % (Manual) Lymphocytes % (Manual) Seg Neutrophils # Seg Neutrophils # Man Lymphocytes # (Manual) D-Dimer ABG pH POC ABG pO2 ABG pO2 ABG HCO3 ABG Hemoglobin ABG Oxyhemoglobin ABG Sodium ABG Potassium ABG Glucose Oxyhemoglobin Carboxyhemoglobin Sodium Potassium Chloride Carbon Dioxide BUN Creatinine Glucose POC Glucose 143 H 140 H 123 H Lactic Acid Calcium Phosphorus Magnesium AST ALT Troponin T C-Reactive Protein Total Protein Albumin Arterial Blood Glucose Arterial Blood Ionized Calcium Urine WBC (Auto) Urine Creatinine 08/28/20 08/28/20 08/28/20 03:50 04:19 04:19 WBC RBC 2.80 L Hgb 7.8 L Hct 23.6 L MCH RDW 15.8 H Lymph % (Auto) Lymph # (Auto) Seg Neutrophils % Seg Neuts % (Manual) Lymphocytes % (Manual) Seg Neutrophils # Seg Neutrophils # Man Lymphocytes # (Manual) D-Dimer ABG pH 7.329 L POC ABG pO2 ABG pO2 76.7 L ABG HCO3 27.0 H ABG Hemoglobin 7.5 L ABG Oxyhemoglobin ABG Sodium ABG Potassium ABG Glucose Oxyhemoglobin 93.6 L Carboxyhemoglobin Sodium 135 L Potassium Chloride Carbon Dioxide BUN 64 H Creatinine 3.8 H Glucose 143 H POC Glucose Lactic Acid Calcium 8.0 L Phosphorus Magnesium AST ALT Troponin T C-Reactive Protein Total Protein 4.8 L Albumin 2.4 L Arterial Blood Glucose Arterial Blood Ionized Calcium Urine WBC (Auto) Urine Creatinine 08/28/20 08/28/20 08/28/20 05:35 11:22 17:18 WBC RBC Hgb Hct MCH RDW Lymph % (Auto) Lymph # (Auto) Seg Neutrophils % Seg Neuts % (Manual) Lymphocytes % (Manual) Seg Neutrophils # Seg Neutrophils # Man Lymphocytes # (Manual) D-Dimer ABG pH POC ABG pO2 ABG pO2 ABG HCO3 ABG Hemoglobin ABG Oxyhemoglobin ABG Sodium ABG Potassium ABG Glucose Oxyhemoglobin Carboxyhemoglobin Sodium Potassium Chloride Carbon Dioxide BUN Creatinine Glucose POC Glucose 147 H 182 H 216 H Lactic Acid Calcium Phosphorus Magnesium AST ALT Troponin T C-Reactive Protein Total Protein Albumin Arterial Blood Glucose Arterial Blood Ionized Calcium Urine WBC (Auto) Urine Creatinine 08/28/20 08/28/20 08/29/20 21:04 23:20 04:32 WBC RBC Hgb Hct MCH RDW Lymph % (Auto) Lymph # (Auto) Seg Neutrophils % Seg Neuts % (Manual) Lymphocytes % (Manual) Seg Neutrophils # Seg Neutrophils # Man Lymphocytes # (Manual) D-Dimer ABG pH POC ABG pO2 ABG pO2 ABG HCO3 ABG Hemoglobin ABG Oxyhemoglobin ABG Sodium ABG Potassium ABG Glucose Oxyhemoglobin Carboxyhemoglobin Sodium 135 L Potassium Chloride 96.0 L Carbon Dioxide BUN 67 H Creatinine 3.8 H Glucose 200 H POC Glucose 204 H 242 H Lactic Acid Calcium 8.2 L Phosphorus Magnesium AST ALT Troponin T C-Reactive Protein Total Protein Albumin Arterial Blood Glucose Arterial Blood Ionized Calcium Urine WBC (Auto) Urine Creatinine 08/29/20 08/29/20 08/29/20 04:32 04:50 04:59 WBC RBC 3.25 L Hgb 9.0 L Hct 27.0 L MCH RDW 16.1 H Lymph % (Auto) Lymph # (Auto) Seg Neutrophils % Seg Neuts % (Manual) Lymphocytes % (Manual) Seg Neutrophils # Seg Neutrophils # Man Lymphocytes # (Manual) D-Dimer ABG pH POC ABG pO2 ABG pO2 ABG HCO3 ABG Hemoglobin 8.8 L ABG Oxyhemoglobin ABG Sodium ABG Potassium ABG Glucose Oxyhemoglobin Carboxyhemoglobin Sodium Potassium Chloride Carbon Dioxide BUN Creatinine Glucose POC Glucose 201 H Lactic Acid Calcium Phosphorus Magnesium AST ALT Troponin T C-Reactive Protein Total Protein Albumin Arterial Blood Glucose Arterial Blood Ionized Calcium Urine WBC (Auto) Urine Creatinine 08/29/20 08/29/20 08/29/20 11:10 11:28 17:50 WBC RBC Hgb Hct MCH RDW Lymph % (Auto) Lymph # (Auto) Seg Neutrophils % Seg Neuts % (Manual) Lymphocytes % (Manual) Seg Neutrophils # Seg Neutrophils # Man Lymphocytes # (Manual) D-Dimer ABG pH POC ABG pO2 ABG pO2 78.7 L ABG HCO3 26.6 H ABG Hemoglobin 9.8 L ABG Oxyhemoglobin ABG Sodium ABG Potassium ABG Glucose Oxyhemoglobin 94.3 L Carboxyhemoglobin Sodium Potassium Chloride Carbon Dioxide BUN Creatinine Glucose POC Glucose 219 H 203 H Lactic Acid Calcium Phosphorus Magnesium AST ALT Troponin T C-Reactive Protein Total Protein Albumin Arterial Blood Glucose Arterial Blood Ionized Calcium Urine WBC (Auto) Urine Creatinine 08/29/20 08/29/20 08/30/20 21:31 23:28 04:14 WBC RBC Hgb Hct MCH RDW Lymph % (Auto) Lymph # (Auto) Seg Neutrophils % Seg Neuts % (Manual) Lymphocytes % (Manual) Seg Neutrophils # Seg Neutrophils # Man Lymphocytes # (Manual) D-Dimer ABG pH POC ABG pO2 ABG pO2 ABG HCO3 ABG Hemoglobin ABG Oxyhemoglobin ABG Sodium ABG Potassium ABG Glucose Oxyhemoglobin Carboxyhemoglobin Sodium 132 L Potassium Chloride 94.8 L Carbon Dioxide BUN 68 H Creatinine 3.7 H Glucose 214 H POC Glucose 204 H 215 H Lactic Acid Calcium Phosphorus Magnesium AST ALT Troponin T C-Reactive Protein Total Protein Albumin Arterial Blood Glucose Arterial Blood Ionized Calcium Urine WBC (Auto) Urine Creatinine 08/30/20 08/30/20 08/30/20 05:10 11:33 17:32 WBC RBC Hgb Hct MCH RDW Lymph % (Auto) Lymph # (Auto) Seg Neutrophils % Seg Neuts % (Manual) Lymphocytes % (Manual) Seg Neutrophils # Seg Neutrophils # Man Lymphocytes # (Manual) D-Dimer ABG pH POC ABG pO2 ABG pO2 ABG HCO3 ABG Hemoglobin ABG Oxyhemoglobin ABG Sodium ABG Potassium ABG Glucose Oxyhemoglobin Carboxyhemoglobin Sodium Potassium Chloride Carbon Dioxide BUN Creatinine Glucose POC Glucose 210 H 194 H 202 H Lactic Acid Calcium Phosphorus Magnesium AST ALT Troponin T C-Reactive Protein Total Protein Albumin Arterial Blood Glucose Arterial Blood Ionized Calcium Urine WBC (Auto) Urine Creatinine 08/30/20 08/30/20 08/30/20 21:39 23:21 Unknown WBC RBC Hgb Hct MCH RDW Lymph % (Auto) Lymph # (Auto) Seg Neutrophils % Seg Neuts % (Manual) Lymphocytes % (Manual) Seg Neutrophils # Seg Neutrophils # Man Lymphocytes # (Manual) D-Dimer ABG pH POC ABG pO2 ABG pO2 99.0 H ABG HCO3 ABG Hemoglobin 9.8 L ABG Oxyhemoglobin ABG Sodium ABG Potassium ABG Glucose Oxyhemoglobin Carboxyhemoglobin Sodium Potassium Chloride Carbon Dioxide BUN Creatinine Glucose POC Glucose 199 H 209 H Lactic Acid Calcium Phosphorus Magnesium AST ALT Troponin T C-Reactive Protein Total Protein Albumin Arterial Blood Glucose Arterial Blood Ionized Calcium Urine WBC (Auto) Urine Creatinine 08/31/20 08/31/20 08/31/20 04:10 05:19 10:57 WBC RBC Hgb Hct MCH RDW Lymph % (Auto) Lymph # (Auto) Seg Neutrophils % Seg Neuts % (Manual) Lymphocytes % (Manual) Seg Neutrophils # Seg Neutrophils # Man Lymphocytes # (Manual) D-Dimer ABG pH 7.451 H POC ABG pO2 ABG pO2 99.6 H ABG HCO3 ABG Hemoglobin 8.4 L ABG Oxyhemoglobin ABG Sodium ABG Potassium ABG Glucose Oxyhemoglobin Carboxyhemoglobin Sodium 133 L Potassium Chloride 96.4 L Carbon Dioxide BUN 74 H Creatinine 3.8 H Glucose 201 H POC Glucose 182 H Lactic Acid Calcium 7.6 L Phosphorus Magnesium AST ALT Troponin T C-Reactive Protein Total Protein Albumin Arterial Blood Glucose Arterial Blood Ionized Calcium Urine WBC (Auto) Urine Creatinine 08/31/20 08/31/20 08/31/20 10:57 12:32 17:15 WBC 11.4 H RBC 3.24 L Hgb 8.5 L Hct 26.6 L MCH 26 L RDW 15.6 H Lymph % (Auto) Lymph # (Auto) Seg Neutrophils % Seg Neuts % (Manual) Lymphocytes % (Manual) Seg Neutrophils # Seg Neutrophils # Man Lymphocytes # (Manual) D-Dimer ABG pH POC ABG pO2 ABG pO2 ABG HCO3 ABG Hemoglobin ABG Oxyhemoglobin ABG Sodium ABG Potassium ABG Glucose Oxyhemoglobin Carboxyhemoglobin Sodium Potassium Chloride Carbon Dioxide BUN Creatinine Glucose POC Glucose 217 H 203 H Lactic Acid Calcium Phosphorus Magnesium AST ALT Troponin T C-Reactive Protein Total Protein Albumin Arterial Blood Glucose Arterial Blood Ionized Calcium Urine WBC (Auto) Urine Creatinine 09/01/20 09/01/20 09/01/20 00:06 05:05 09:41 WBC RBC Hgb Hct MCH RDW Lymph % (Auto) Lymph # (Auto) Seg Neutrophils % Seg Neuts % (Manual) Lymphocytes % (Manual) Seg Neutrophils # Seg Neutrophils # Man Lymphocytes # (Manual) D-Dimer ABG pH POC ABG pO2 ABG pO2 ABG HCO3 ABG Hemoglobin ABG Oxyhemoglobin ABG Sodium ABG Potassium ABG Glucose Oxyhemoglobin Carboxyhemoglobin Sodium 134 L Potassium Chloride 95.2 L Carbon Dioxide BUN 81 H Creatinine 3.7 H Glucose 201 H POC Glucose 223 H 225 H Lactic Acid Calcium Phosphorus 4.60 H Magnesium 2.40 H AST ALT Troponin T C-Reactive Protein Total Protein Albumin Arterial Blood Glucose Arterial Blood Ionized Calcium Urine WBC (Auto) Urine Creatinine 09/01/20 09/01/20 09/01/20 09:41 12:51 13:08 WBC 11.5 H RBC 3.58 L Hgb 9.2 L Hct 29.7 L MCH 26 L RDW 16.0 H Lymph % (Auto) Lymph # (Auto) Seg Neutrophils % Seg Neuts % (Manual) Lymphocytes % (Manual) Seg Neutrophils # Seg Neutrophils # Man Lymphocytes # (Manual) D-Dimer ABG pH 7.462 H POC ABG pO2 ABG pO2 ABG HCO3 ABG Hemoglobin 9.5 L ABG Oxyhemoglobin ABG Sodium 130.4 L ABG Potassium ABG Glucose 208 H Oxyhemoglobin Carboxyhemoglobin 0.4 L Sodium Potassium Chloride Carbon Dioxide BUN Creatinine Glucose POC Glucose 182 H Lactic Acid Calcium Phosphorus Magnesium AST ALT Troponin T C-Reactive Protein Total Protein Albumin Arterial Blood Glucose 208 H Arterial Blood Ionized Calcium 4.5 L Urine WBC (Auto) Urine Creatinine Additional Studies: US chest with large bilateral pleural effusions Allied health notes reviewed: nursing
[2020-09-01] MEDS: INSULIN GLARGINE 100 UNITS/ML SUB-Q SCH (21:37)
[2020-09-02] MEDS: SENNOSIDES/DOCUSATE SODIUM 8.6/50 MG TAB FEEDTUBE SCH ×3 (03:20→21:42)
[2020-09-02] MEDS: INSULIN LISPRO 100 UNIT/ML SUB-Q SCH ×5 (03:21→18:16)
[2020-09-02] MEDS: hydrALAZINE 25 MG TAB PO SCH ×3 (06:30→21:45)
[2020-09-02 08:39] LABS: Calcium 8.8 mg/dL (8.4-10.2)
[2020-09-02] MEDS: TAMSULOSIN 0.4 MG CAP PO SCH (09:10)
[2020-09-02] MEDS: levETIRAcetam 500 MG/5 ML ORAL LIQD PO SCH ×2 (09:10→21:41)
[2020-09-02] MEDS: FAMOTIDINE 20 MG TAB PO SCH (09:10)
[2020-09-02] MEDS: ASPIRIN 81 MG TAB CHEW PO SCH (09:10)
[2020-09-02] MEDS: LACOSAMIDE 100 MG TAB PO SCH ×2 (09:10→21:42)
[2020-09-02] MEDS: amLODIPine 5 MG TAB PO SCH (09:11)
[2020-09-02] MEDS: METOPROLOL TARTRATE 25 MG TAB PO SCH ×2 (09:12→21:42)
[2020-09-02] MEDS: HEPARIN 5,000 UNIT/1 ML VIAL SUB-Q SCH ×2 (09:13→21:44)
[2020-09-02] MEDS ORDERED: LORazepam 2 MG/ML VIAL IV ONE (10:00)
--- NOTE | 2020-09-02 11:14 | Progress Note ---
Assessment and Plan 1. Acute kidney injury: Vasomotor FLORIDALMA superimposed on CKD stage 4 in the setting Cardiac arrest. Low FeNa. CT abdomen negative for hydro. Monitor renal function. Creatinine leveled off. Remain non-oliguric. Renal prognosis is guarded. Avoid nephrotoxic agents. Meds dosage based on GFR. Monitor for [employer] needs. 2. FEN: Volume overload, IV lasix. Hyperkalemia, improved. Metabolic acidosis, improved. Monitor lytes. 3. Acute respiratory failure with hypoxia: 2/2 b/p pneumonia. Covid test negative. Intubated, on vent. Followed by Pulmonary. 4. S/p OOH Cardiac arrest: Prolonged downtime. Followed by Cards. 5. Bladder retention: Christina catheter. 6. Diabetes mellitus type 2: Follow blood glucose. 7. Hypertension: Monitor BP. 8. Anemia, POA: Monitor. 9. 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 Family is aware of slim prognosis. 10. Facial twitching: Vimpat. Subjective: Patient was not examined today. However the examination findings from other providers noted. The current and previous medical records are reviewed in detail as are laboratory and imaging data reviewed when appropriate. Medications being given are also reviewed. In addition the case has been discussed with the attending hospitalist and the nurse when needed. New renal recommendations as above. seen and examined at the bedside. Examination: Subjective Date of service: 09/02/20 Principal diagnosis: Ac. hypoxemic resp failure; Cardiac arrest; AMS; AE-CHF; Hyperkalemia; FLORIDALMA Objective - Vital Signs Vital signs: Vital Signs - 12hr 09/01/20 09/01/20 09/01/20 23:25 23:31 23:33 Temperature 97.9 F Pulse Rate 60 58 L Pulse Rate [ From Monitor] Respiratory 14 14 Rate Blood Pressure 111/49 117/48 O2 Sat by Pulse 99 98 Oximetry 09/02/20 09/02/20 09/02/20 00:00 00:05 00:31 Temperature Pulse Rate 63 64 65 Pulse Rate [ 63 From Monitor] Respiratory 18 21 Rate Blood Pressure 120/55 120/55 149/59 O2 Sat by Pulse 98 99 97 Oximetry 09/02/20 09/02/20 09/02/20 01:01 01:31 02:00 Temperature Pulse Rate 63 61 61 Pulse Rate [ From Monitor] Respiratory 18 17 17 Rate Blood Pressure 153/57 144/54 141/57 O2 Sat by Pulse 99 98 98 Oximetry 09/02/20 09/02/20 09/02/20 02:30 03:01 03:31 Temperature Pulse Rate 58 L 62 66 Pulse Rate [ From Monitor] Respiratory 15 18 20 Rate Blood Pressure 127/50 150/58 179/72 O2 Sat by Pulse 97 97 95 Oximetry 09/02/20 09/02/20 09/02/20 03:35 03:59 04:00 Temperature 97.8 F Pulse Rate 63 50 L Pulse Rate [ 50 L From Monitor] Respiratory Rate Blood Pressure 179/72 O2 Sat by Pulse 99 Oximetry 09/02/20 09/02/20 09/02/20 04:01 04:31 05:01 Temperature Pulse Rate 63 60 63 Pulse Rate [ From Monitor] Respiratory 18 16 18 Rate Blood Pressure 137/64 133/61 160/66 O2 Sat by Pulse 96 96 96 Oximetry 09/02/20 09/02/20 09/02/20 05:31 06:00 06:30 Temperature Pulse Rate 61 62 52 L Pulse Rate [ From Monitor] Respiratory 15 16 Rate Blood Pressure 157/62 130/66 130/66 O2 Sat by Pulse 96 95 Oximetry 09/02/20 09/02/20 09/02/20 06:31 07:01 07:31 Temperature Pulse Rate 62 64 64 Pulse Rate [ From Monitor] Respiratory 17 18 16 Rate Blood Pressure 120/63 120/63 130/51 O2 Sat by Pulse 97 94 Oximetry 09/02/20 09/02/20 09/02/20 07:37 08:00 08:01 Temperature 97.8 F Pulse Rate 67 67 Pulse Rate [ From Monitor] Respiratory 20 Rate Blood Pressure 130/51 130/51 O2 Sat by Pulse 94 98 Oximetry 09/02/20 09/02/20 09/02/20 08:31 09:01 09:11 Temperature Pulse Rate 71 67 68 Pulse Rate [ From Monitor] Respiratory 16 17 Rate Blood Pressure 113/56 104/50 104/50 O2 Sat by Pulse 98 97 Oximetry 09/02/20 09:12 Temperature Pulse Rate 68 Pulse Rate [ From Monitor] Respiratory Rate Blood Pressure 104/50 O2 Sat by Pulse Oximetry - Lab 09/03/20 08:31 09/03/20 08:31 Most recent lab results ABG pH 7.462 (7.320-7.450) H 09/01/20 12:51 ABG pCO2 36.6 mm Hg 08/31/20 04:10 ABG pO2 99.6 mm Hg (80.0-90.0) H 08/31/20 04:10 ABG HCO3 24.9 mmol/L (20.0-26.0) 08/31/20 04:10 ABG O2 Saturation 98.0 (0-100) 09/01/20 12:51 Calcium 8.8 mg/dL (8.4-10.2) 09/02/20 07:35 Phosphorus 4.60 mg/dL (2.5-4.5) H 09/01/20 09:41 Magnesium 2.40 mg/dL (1.7-2.3) H 09/01/20 09:41 Urine Creatinine 67.4 mg/dL (0.1-20.0) H 08/26/20 17:00 Urine Sodium 12 mmol/L 08/26/20 17:00 Medications & Allergies - Medications Allergies/Adverse Reactions: Allergies No Known Allergies Allergy (Verified 07/31/18 07:06) Home Medications: Home Medications Medication Instructions Recorded Confirmed Last Taken Type Albuterol Mdi (or & Nicu Only) 2 puff IH QID PRN #1 inhalation 08/07/18 03/14/20 Unknown Rx [ProAir HFA Inhaler] Sucralfate [Carafate] 1 gm PO ACHS #30 tablet 08/07/18 03/14/20 03/13/20 Rx Insulin Regular, Human [HumuLIN R] 0 unit SQ AC #1 vial 08/11/18 03/14/20 Unknown Rx Labetalol HCl [Labetalol 300mg TAB] 300 mg PO BID #60 tablet 11/11/19 03/14/20 03/14/20 Rx Furosemide [Lasix TAB] 80 mg PO DAILY #14 tablet 03/27/20 Unknown Rx Insulin Glargine [Lantus VIAL] 15 units SUB-Q QAM #1 vial 03/27/20 Unknown Rx amLODIPine 10 mg PO QDAY #30 tablet 03/27/20 Unknown Rx Active Medications: Generic Name Dose Route Start Last Admin Trade Name Freq PRN Reason Stop Dose Admin Albuterol 2.5 mg 08/25/20 14:55 Albuterol 2.5 Mg/3 Ml Nebu IH Q3HRT PRN Shortness Of Breath Amlodipine Besylate 5 mg 08/28/20 10:00 09/02/20 09:11 Amlodipine 5 Mg Tab PO Not Given QDAY TERA Lipase/Protease/Amylase 1 each 08/26/20 12:15 Lipase 10,500/Protease 25,000/Amylase 43,750 (Units) Dr Gu FEEDTUBE PRN PRN For Clogged Feeding Tube Aspirin 81 mg 08/27/20 10:00 09/02/20 09:10 Aspirin 81 Mg Tab Chew PO 81 mg QDAY TERA Administration Atorvastatin Calcium 40 mg 08/26/20 22:00 09/01/20 21:33 Atorvastatin 40 Mg Tab PO 40 mg QHS TERA Administration Dextrose 50 ml 08/26/20 19:18 Dextrose 50% In Water (25gm) 50 Ml Syringe IV Q30MIN PRN Hypoglycemia Protocol Famotidine 20 mg 08/28/20 10:00 09/02/20 09:10 Famotidine 20 Mg Tab PO 20 mg DAILY TERA Administration Heparin Sodium (Porcine) 5,000 unit 08/26/20 22:00 09/02/20 09:13 Heparin 5,000 Unit/1 Ml Vial SUB-Q 5,000 unit Q12HR TERA Administration Hydralazine HCl 10 mg 08/26/20 01:20 08/31/20 08:45 Hydralazine 20 Mg/1 Ml Inj IV 10 mg Q4HR PRN Administration Blood Pressure Hydralazine HCl 50 mg 09/01/20 14:00 09/02/20 06:30 Hydralazine 25 Mg Tab PO 50 mg Q8HR TERA Administration Hydrophilic Ointment 1 applic 08/25/20 11:07 08/25/20 11:57 Lip Therapy Vaseline TP 1 applic Q2HR PRN Administration Dry Lips Insulin Glargine 25 units 09/01/20 22:00 09/01/20 21:37 Insulin Glargine 100 Units/Ml SUB-Q 25 units QHS TERA Administration Insulin Human Lispro 0 unit 08/27/20 12:00 09/02/20 06:32 Insulin Lispro 100 Unit/Ml SUB-Q 2 unit Q6HR TERA Administration Protocol Lacosamide 100 mg 09/02/20 10:00 09/02/20 09:10 Lacosamide 100 Mg Tab PO 100 mg Q12HR TERA Administration Levetiracetam 750 mg 08/31/20 13:00 09/02/20 09:10 Levetiracetam 500 Mg/5 Ml Oral Liqd PO 750 mg BID TERA Administration Metoprolol Tartrate 12.5 mg 08/29/20 22:00 09/02/20 09:12 Metoprolol Tartrate 25 Mg Tab PO Not Given BID TERA Multi-Ingred Cream/Lotion/Oil/Oint 1 applic 08/25/20 11:07 Mineral Oil/Petrolatum, White Ophth Oint 3.5 Gm OU Q4HR PRN Dry Eye(s) Senna/Docusate Sodium 1 tab 08/25/20 22:00 09/02/20 03:20 Sennosides/Docusate Sodium 8.6/50 Mg Tab FEEDTUBE 1 tab BID TERA Administration Simple Syrup 15 ml 08/26/20 12:15 Simple Syrup 15 Ml FEEDTUBE PRN PRN Hypoglycemia Simple Syrup 30 ml 08/26/20 12:15 Simple Syrup 15 Ml FEEDTUBE PRN PRN Hypoglycemia Sodium Bicarbonate 325 mg 08/26/20 12:15 Sodium Bicarbonate 325 Mg Tab FEEDTUBE PRN PRN For Clogged Feeding Tube Sodium Chloride 10 ml 08/25/20 22:00 09/02/20 09:12 Sodium Chloride 0.9% 10 Ml Flush Syringe IV 10 ml BID TERA Administration Sodium Chloride 10 ml 08/25/20 14:55 08/29/20 04:05 Sodium Chloride 0.9% 10 Ml Flush Syringe IV 10 ml PRN PRN Administration LINE FLUSH Tamsulosin HCl 0.4 mg 08/31/20 15:00 09/02/20 09:10 Tamsulosin 0.4 Mg Cap PO 0.4 mg QDAY TERA Administration
--- NOTE | 2020-09-02 12:14 | Progress Note ---
<MIN JUNG - Last Filed: 09/02/20 12:27> Assessment and Plan Assessment and plan: This is a 75-year-old female with CHF, OHS DM, CKD, morbid obesity, GERD, hypertension, chronic respiratory failure admitted s/p cardiac arrest NEURO Anoxic encephalopathy -Neurology consulted, appreciate recommendations -08/[address] head shows no CT evidence of acute abnormality -08/28 MRI brain without contrast shows abnormal diffusion and FLAIR signal abnormality which may suggest hypoxic/ischemic brain injury, hypoglycemic encephalopathy and perhaps Creutsfeldt-Cornelius disease otherwise no focal mass, he morrhage or hydrocephalus seen -08/30 EEG- results pending Seizure -Keppra BID , vimpat -Seizure/aspiration precautions -per neuro prognosis poor based on MRI -NO mind altering medications - to allow for neuro assessment and brain function -opens eyes spontaneously ; pupils not reactive to light; neg threat; pos cough; withdrawal on right to deep pain; no response to deep pain on left Pt has 8 living children- updated on plan of care Case Management following if decision is not made by family in 48 hours we will order trach/Peg Friday (09/04) CV SR S/p cardiac arrest with prolonged down time- see ER note -ddimer elevated on admit following cardiac arrest -Cardiology has seen and signed off- call if needed -08/25 echocardiogram shows LVEF 40 to 45%, LV normal size, LV systolic function mildly decreased, mild diastolic dysfunction, mildly dilated right ventricle, pulmonary hypertension RVSP 45 mmHg -asa and statin Hypertension -home norvasc , hydral added -Blood pressure monitoring per protocol -IV hydralazine as needed RESP Acute hypoxic respiratory failure -Chronic respiratory insufficiency at home with 3 L oxygen via nasal cannula -remains intubated and ventilated on cpap this AM -Wean as tolerated; trend pulse ox -CCM following -VAP bundle -nebs as needed Multifocal pneumonia/ ? aspiration event -08/25 CXR shows worsening patchy bilateral pulmonary opacities -08/25 CTA chest shows no evidence of pulmonary embolism, bilateral pulmonary processes with large bilateral pleural effusions, pneumonia is a concern, pulmonary edema could be a similar appearance versus pulmonary edema GI Protein Calorie Malnutrition TF per nutrition bowel reg. FLORIDALMA on CKD secondary to patient under nephropathy -Nephrology consulted, patient recommendations -Daily weights -Avoid nephrotoxic medications; avoid NITIN/ARB -bladder scan with high residuals requiring frequent intermittent caths so foreman replaced at 1230 -trend and replace electrolytes as needed -Trend Cr Urinary retention -Foreman replaced 08/31 for urinary retention HEME Anemia -Admit H/H 8.6/27.8 -Transfuse for hemoglobin less than 7 -Trend CBC VTE prophylaxis with SCD and SQH ID Pneumonia -trend WBC and temp curve -afebrile -trend cultures -covid neg on admit ENDO Diabetes mellitus -SSI -Lantus, increase as needed -Accu-Cheks every 6h -avoid hypoglycemia -hx obesity DVT/GI prophylaxis: SCDs to bilateral lower extremities heparin subcu, PPI Disposition: ICU Lines: PIV; foreman The high probability of a clinically significant, sudden or life threatening deterioration of the [cardiac, pulmonary, neuro, renal, infectious disease] system(s) required my full and direct attention, intervention and personal management. The aggregate critical care time was [35] minutes. This time is in addition to time spent performing reported procedures but includes the following: [x] Data Review and interpretation [x] Patient assessment and monitoring of vital signs [x] Documentation [x] Medication orders and management History Interval history: This is a 69-year-old female with OHS, DM, CKD stage IV, morbid obesity CHF, GERD, HTN, chronic respiratory failure on 3 L of home oxygen via nasal cannula who presented to the emergency department on 08/25 after being found down unresponsive at 0950 hours by family and upon EMS arrival she was unresponsive and asystolic arrest. Patient was treated with ACLS protocol with eventual ROSC after at least 15 minutes of ACLS and patient was transported to [facility]. In the emergency department patient was found to have acute hypoxic respiratory failure and subsequently intubated on vasopressor support, she underwent a CXR which showed bilateral pneumonia and exam is consistent with SIRS. CCM and cardiology were consulted and patient was admitted to the hospital service with acute hypoxic respiratory failure, anoxic encephalopathy, s/p cardiac arrest, multifocal pneumonia, FLORIDALMA on CKD. 08/26/20 patient is seen and examined. Patient is on vent. WBC 17.9 and hemo globin 8.3 hematocrit 25.6. Patient may have 1 episode of questionable seizure. Patient BUN is 56 creatinine 3.4. Will consult nephrology. We also start the patient on Rocephin 2 g IV daily and Zithromax. Aspirin 81 mg p.o. daily and Lipitor. Patient is having echocardiogram. Cardiology and critical care will see the patient as consult tension. Continue current management. We have started on NG tube feeding and consult nutrition for evaluation. Recheck CBC BMP in the morning. Case discussed with daughter Leena [phone] 08/27: Patient remains on full ventilatory support, considering concern for seizure yesterday under the circumstance of out of hospital cardiac arrest, and concern for anoxic encephalopathy, will proceed with Neurology consultation. 08/28: At the time my examination patient sedation of propofol 30 and fentanyl 1 was being held and she was on CMV tidal and 450, rate of 18, PEEP of 6 and FiO2 of 35%. Neurology was consulted. I updated the patient's daughter Leena Payton at bedside and told her of the pending tests the neurologist has ordered. 08/29: Increase in Lantus due to persistent hypoglycemia, chest ultrasound ordered for possible thoracentesis by [facility], MRI brain pending. Remove Foreman catheter if okay with nephrology. Increase in beta-skylar by [facility] however cardiology decreased hydralazine per neurology recommendations. At the time my examination patient was on CPAP trial pressure support of 12, PEEP of 6 and 35% FiO2. RT obtain an ABG we will continue CPAP as tolerated. 08/28: No acute events overnight. Noted to have seizure, addition of vimpat 08/29: Chest US noted to have pleural effusions, cxr shows pulmonary edema, nephro ordered lasix x1. CCM and nephro had conversation son at bedside. Surgery consulted for trach/peg. [facility] plans for IR thora if family decides aggressive care 08/30 No acute overnight events 08/31: given 80mg lasix by nephro, increase in lantus, Dulcolax suppository given for no recorded BM for 5 to 6 days 09/01: Patient did not have a further response to 80 mg of Lasix yesterday, no acute events reported overnight, patient is having several loose BMs Hospitalist Physical - Constitutional Vitals: Temp Pulse Resp BP Pulse Ox 97.8 F 68 18 115/41 100 09/02/20 12:00 09/02/20 11:21 09/02/20 11:21 09/02/20 11:21 09/02/20 11:21 General appearance: Present: no acute distress, obese, other (pallor) - EENT Eyes: Absent: PERRL - Neck Neck: Absent: masses or JVD, cervical LAD - Respiratory Respiratory effort: normal Respiratory: bilateral: diminished - Cardiovascular Rhythm: regular Heart Sounds: Present: S1 & S2. Absent: systolic murmur, diastolic murmur - Extremities Extremities: no ischemia, pulses intact, pulses symmetrical, normal temperature, normal color Extremity abnormal: edema Peripheral Pulses: within normal limits - Abdominal General gastrointestinal: soft, non-tender, non-distended, normal bowel sounds - Integumentary Integumentary: Present: warm, dry - Psychiatric Psychiatric: other (not interactive) - Neurologic Neurologic: other (decorticate to painful stimuli) - Allied Health Allied health notes reviewed: nursing, RT, social work HEART Score - HEART Score Troponin: Troponin T 0.057 ng/mL (0.00-0.029) H 08/25/20 11:23 Results - Labs CBC & Chem 7: 09/01/20 09:41 09/02/20 07:35 Labs: Laboratory Last Values WBC 11.5 K/mm3 (4.5-11.0) H 09/01/20 09:41 RBC 3.58 M/mm3 (3.65-5.03) L 09/01/20 09:41 Hgb 9.2 gm/dl (10.1-14.3) L 09/01/20 09:41 Hct 29.7 % (30.3-42.9) L 09/01/20 09:41 MCV 83 fl (79-97) 09/01/20 09:41 MCH 26 pg (28-32) L 09/01/20 09:41 MCHC 31 % (30-34) 09/01/20 09:41 RDW 16.0 % (13.2-15.2) H 09/01/20 09:41 Plt Count 287 K/mm3 (140-440) 09/01/20 09:41 Lymph % (Auto) 5.9 % (13.4-35.0) L 08/27/20 07:24 [place] % (Auto) 4.6 % (0.0-7.3) 08/27/20 07:24 Eos % (Auto) 2.2 % (0.0-4.3) 08/27/20 07:24 Baso % (Auto) 0.4 % (0.0-1.8) 08/27/20 07:24 Lymph # (Auto) 0.8 K/mm3 (1.2-5.4) L 08/27/20 07:24 [place] # (Auto) 0.6 K/mm3 (0.0-0.8) 08/27/20 07:24 Eos # (Auto) 0.3 K/mm3 (0.0-0.4) 08/27/20 07:24 Baso # (Auto) 0.0 K/mm3 (0.0-0.1) 08/27/20 07:24 Add Manual Diff Complete 08/26/20 05:04 Total Counted 100 08/26/20 05:04 Seg Neutrophils % 86.9 % (40.0-70.0) H 08/27/20 07:24 Seg Neuts % (Manual) 96.0 % (40.0-70.0) H 08/26/20 05:04 Band Neutrophils % 2.0 % 08/25/20 11:23 Lymphocytes % (Manual) 1.0 % (13.4-35.0) L 08/26/20 05:04 Monocytes % (Manual) 3.0 % (0.0-7.3) 08/26/20 05:04 Eosinophils % (Manual) 3.0 % (0.0-4.3) 08/25/20 11:23 Metamyelocytes % 1.0 % 08/25/20 11:23 Nucleated RBC % Not Reportable 08/26/20 05:04 Seg Neutrophils # 11.0 K/mm3 (1.8-7.7) H 08/27/20 07:24 Seg Neutrophils # Man 17.2 K/mm3 (1.8-7.7) H 08/26/20 05:04 Band Neutrophils # 0.0 K/mm3 08/26/20 05:04 Lymphocytes # (Manual) 0.2 K/mm3 (1.2-5.4) L 08/26/20 05:04 Abs React Lymphs (Man) 0.0 K/mm3 08/26/20 05:04 Monocytes # (Manual) 0.5 K/mm3 (0.0-0.8) 08/26/20 05:04 Eosinophils # (Manual) 0.0 K/mm3 (0.0-0.4) 08/26/20 05:04 Basophils # (Manual) 0.0 K/mm3 (0.0-0.1) 08/26/20 05:04 Metamyelocytes # 0.0 K/mm3 08/26/20 05:04 Myelocytes # 0.0 K/mm3 08/26/20 05:04 Promyelocytes # 0.0 K/mm3 08/26/20 05:04 Blast Cells # 0.0 K/mm3 08/26/20 05:04 WBC Morphology Not Reportable 08/26/20 05:04 Hypersegmented Neuts Not Reportable 08/26/20 05:04 Hyposegmented Neuts Not Reportable 08/26/20 05:04 Hypogranular Neuts Not Reportable 08/26/20 05:04 Smudge Cells Not Reportable 08/26/20 05:04 Toxic Granulation Not Reportable 08/26/20 05:04 Toxic Vacuolation Not Reportable 08/26/20 05:04 Dohle Bodies Not Reportable 08/26/20 05:04 Pelger-Huet Anomaly Not Reportable 08/26/20 05:04 Jannette Rods Not Reportable 08/26/20 05:04 Platelet Estimate Consistent w auto 08/26/20 05:04 Clumped Platelets Not Reportable 08/26/20 05:04 Plt Clumps, EDTA Not Reportable 08/26/20 05:04 Large Platelets Not Reportable 08/26/20 05:04 Giant Platelets Not Reportable 08/26/20 05:04 Platelet Satelliting Not Reportable 08/26/20 05:04 Plt Morphology Comment Not Reportable 08/26/20 05:04 RBC Morphology Not Reportable 08/26/20 05:04 Dimorphic RBCs Not Reportable 08/26/20 05:04 Polychromasia Not Reportable 08/26/20 05:04 Hypochromasia Not Reportable 08/26/20 05:04 Poikilocytosis Not Reportable 08/26/20 05:04 Anisocytosis 1+ 08/26/20 05:04 Microcytosis Not Reportable 08/26/20 05:04 Macrocytosis Not Reportable 08/26/20 05:04 Spherocytes Not Reportable 08/26/20 05:04 Pappenheimer Bodies Not Reportable 08/26/20 05:04 Sickle Cells Not Reportable 08/26/20 05:04 Target Cells Not Reportable 08/26/20 05:04 Tear Drop Cells Not Reportable 08/26/20 05:04 Ovalocytes Not Reportable 08/26/20 05:04 Helmet Cells Not Reportable 08/26/20 05:04 [place] Bodies Not Reportable 08/26/20 05:04 [place] Rings Not Reportable 08/26/20 05:04 Danube Cells Not Reportable 08/26/20 05:04 Bite Cells Not Reportable 08/26/20 05:04 Crenated Cell Not Reportable 08/26/20 05:04 Elliptocytes Not Reportable 08/26/20 05:04 Acanthocytes (Spur) Not Reportable 08/26/20 05:04 Rouleaux Not Reportable 08/26/20 05:04 Hemoglobin C Crystals Not Reportable 08/26/20 05:04 Schistocytes Not Reportable 08/26/20 05:04 Malaria parasites Not Reportable 08/26/20 05:04 Shabbir Bodies Not Reportable 08/26/20 05:04 Hem Pathologist Commnt No 08/26/20 05:04 D-Dimer > 75189 ng/mlDDU (0-234) H 08/25/20 11:23 ABG pH 7.462 (7.320-7.450) H 09/01/20 12:51 POC ABG pCO2 39.5 mmHg (32.0-48.0) 09/01/20 12:51 ABG pCO2 36.6 mm Hg 08/31/20 04:10 POC ABG pO2 102.7 mmHg (83-108) 09/01/20 12:51 ABG pO2 99.6 mm Hg (80.0-90.0) H 08/31/20 04:10 POC ABG HCO3 27.6 09/01/20 12:51 ABG HCO3 24.9 mmol/L (20.0-26.0) 08/31/20 04:10 ABG O2 Saturation 98.0 (0-100) 09/01/20 12:51 ABG O2 Content 11.6 (0.0-44) 08/31/20 04:10 POC ABG Base Excess 3.6 09/01/20 12:51 ABG Base Excess 1.0 mmol/L (-2.0-3.0) 08/31/20 04:10 ABG Hemoglobin 9.5 (12.0-17.5) L 09/01/20 12:51 ABG Oxyhemoglobin 97.3 (94-98) 09/01/20 12:51 ABG Carboxyhemoglobin 1.4 % (0.0-5.0) 08/31/20 04:10 ABG Methemoglobin 0.3 (0.0-1.5) 09/01/20 12:51 ABG Sodium 130.4 mmol/L (136.0-145.0) L 09/01/20 12:51 ABG Potassium 3.4 mmol/L (3.40-4.50) 09/01/20 12:51 ABG Chloride 98.0 mmol/L (98-107) 09/01/20 12:51 ABG Glucose 208 mg/dL (65-95) H 09/01/20 12:51 Oxyhemoglobin 95.9 % (95.0-99.0) 08/31/20 04:10 Carboxyhemoglobin 0.4 (0.5-1.5) L 09/01/20 12:51 FiO2 30 % 08/31/20 04:10 FiO2 % 30.0 09/01/20 12:51 Sodium 135 mmol/L (137-145) L 09/02/20 07:35 Potassium 3.8 mmol/L (3.6-5.0) 09/02/20 07:35 Chloride 96.0 mmol/L (98-107) L 09/02/20 07:35 Carbon Dioxide 26 mmol/L (22-30) 09/02/20 07:35 Anion Gap 17 mmol/L 09/02/20 07:35 BUN 88 mg/dL (7-17) H 09/02/20 07:35 Creatinine 3.7 mg/dL (0.6-1.2) H 09/02/20 07:35 Estimated GFR 12 ml/min 09/02/20 07:35 BUN/Creatinine Ratio 24 % 09/02/20 07:35 Glucose 187 mg/dL (65-100) H 09/02/20 07:35 POC Glucose 228 mg/dL (70-105) H 09/02/20 11:16 Lactic Acid 1.80 mmol/L (0.7-2.0) 08/25/20 12:45 Calcium 8.8 mg/dL (8.4-10.2) 09/02/20 07:35 Phosphorus 4.60 mg/dL (2.5-4.5) H 09/01/20 09:41 Magnesium 2.40 mg/dL (1.7-2.3) H 09/01/20 09:41 Total Bilirubin < 0.20 mg/dL (0.1-1.2) 08/28/20 04:19 AST 37 units/L (5-40) 08/28/20 04:19 ALT 27 units/L (7-56) 08/28/20 04:19 Alkaline Phosphatase 84 units/L (35-129) 08/28/20 04:19 Troponin T 0.057 ng/mL (0.00-0.029) H 08/25/20 11:23 C-Reactive Protein 7.80 mg/dL (0.00-1.30) H 08/26/20 18:50 Total Protein 4.8 g/dL (6.3-8.2) L 08/28/20 04:19 Albumin 2.4 g/dL (3.9-5) L 08/28/20 04:19 Albumin/Globulin Ratio 1.0 % 08/28/20 04:19 Triglycerides 111 mg/dL (2-149) 08/29/20 04:32 Cholesterol 158 mg/dL (50-199) 08/25/20 11:23 LDL Cholesterol Direct 101 mg/dL (50-130) 08/25/20 11:23 HDL Cholesterol 50 mg/dL (40-59) 08/25/20 11:23 Cholesterol/HDL Ratio 3.16 % 08/25/20 11:23 Procalcitonin 0.41 ng/mL (<0.15) 08/26/20 18:50 Arterial Blood Glucose 208 mg/dL (65-95) H 09/01/20 12:51 Arterial Blood Ionized Calcium 4.5 mg/dL (4.6-5.3) L 09/01/20 12:51 Urine Color Yellow (Yellow) 08/25/20 11:17 Urine Turbidity Cloudy (Clear) 08/25/20 11:17 Urine pH 7.0 (5.0-7.0) 08/25/20 11:17 Ur Specific [place] 1.012 (1.003-1.030) 08/25/20 11:17 Urine Protein >500 mg/dL (Negative) 08/25/20 11:17 Urine Glucose (UA) >=500 mg/dL (Negative) 08/25/20 11:17 Urine Ketones Neg mg/dL (Negative) 08/25/20 11:17 Urine Blood Sm (Negative) 08/25/20 11:17 Urine Nitrite Neg (Negative) 08/25/20 11:17 Urine Bilirubin Neg (Negative) 08/25/20 11:17 Urine Urobilinogen < 2.0 mg/dL (<2.0) 08/25/20 11:17 Ur Leukocyte Esterase Neg (Negative) 08/25/20 11:17 Urine WBC (Auto) 31.0 /HPF (0.0-6.0) H 08/25/20 11:17 Urine RBC (Auto) 28.0 /HPF (0.0-6.0) 08/25/20 11:17 U Epithel Cells (Auto) 5.0 /HPF (0-13.0) 08/25/20 11:17 Urine Bacteria (Auto) 1+ /HPF (Negative) 08/25/20 11:17 Urine WBC Clumps Few /HPF 08/25/20 11:17 Ur Renal Epithelial Cell 4 /LPF 08/25/20 11:17 Hyaline Casts 28 /LPF 08/25/20 11:17 Urine Creatinine 67.4 mg/dL (0.1-20.0) H 08/26/20 17:00 Urine Sodium 12 mmol/L 08/26/20 17:00 Coronavirus (PCR) Negative (Negative) 08/26/20 Unknown Foreman/IV: Voiding Method Indwelling Catheter Active Medications - Current Medications Current Medications: Generic Name Dose Route Start Last Admin Trade Name Freq PRN Reason Stop Dose Admin Albuterol 2.5 mg 08/25/20 14:55 Albuterol 2.5 Mg/3 Ml Nebu IH Q3HRT PRN Shortness Of Breath Amlodipine Besylate 5 mg 08/28/20 10:00 09/02/20 09:11 Amlodipine 5 Mg Tab PO Not Given QDAY TERA Lipase/Protease/Amylase 1 each 08/26/20 12:15 Lipase 10,500/Protease 25,000/Amylase 43,750 (Units) Dr Gu FEEDTUBE PRN PRN For Clogged Feeding Tube Aspirin 81 mg 08/27/20 10:00 09/02/20 09:10 Aspirin 81 Mg Tab Chew PO 81 mg QDAY TERA Administration Atorvastatin Calcium 40 mg 08/26/20 22:00 09/01/20 21:33 Atorvastatin 40 Mg Tab PO 40 mg QHS TERA Administration Dextrose 50 ml 08/26/20 19:18 Dextrose 50% In Water (25gm) 50 Ml Syringe IV Q30MIN PRN Hypoglycemia Protocol Famotidine 20 mg 08/28/20 10:00 09/02/20 09:10 Famotidine 20 Mg Tab PO 20 mg DAILY TERA Administration Heparin Sodium (Porcine) 5,000 unit 08/26/20 22:00 09/02/20 09:13 Heparin 5,000 Unit/1 Ml Vial SUB-Q 5,000 unit Q12HR TERA Administration Hydralazine HCl 10 mg 08/26/20 01:20 08/31/20 08:45 Hydralazine 20 Mg/1 Ml Inj IV 10 mg Q4HR PRN Administration Blood Pressure Hydralazine HCl 50 mg 09/01/20 14:00 09/02/20 06:30 Hydralazine 25 Mg Tab PO 50 mg Q8HR TERA Administration Hydrophilic Ointment 1 applic 08/25/20 11:07 08/25/20 11:57 Lip Therapy Vaseline TP 1 applic Q2HR PRN Administration Dry Lips Insulin Glargine 25 units 09/01/20 22:00 09/01/20 21:37 Insulin Glargine 100 Units/Ml SUB-Q 25 units QHS TERA Administration Insulin Human Lispro 0 unit 08/27/20 12:00 09/02/20 06:32 Insulin Lispro 100 Unit/Ml SUB-Q 2 unit Q6HR TERA Administration Protocol Lacosamide 100 mg 09/02/20 10:00 09/02/20 09:10 Lacosamide 100 Mg Tab PO 100 mg Q12HR TERA Administration Levetiracetam 750 mg 08/31/20 13:00 09/02/20 09:10 Levetiracetam 500 Mg/5 Ml Oral Liqd PO 750 mg BID TERA Administration Metoprolol Tartrate 12.5 mg 08/29/20 22:00 09/02/20 09:12 Metoprolol Tartrate 25 Mg Tab PO Not Given BID TERA Multi-Ingred Cream/Lotion/Oil/Oint 1 applic 08/25/20 11:07 Mineral Oil/Petrolatum, White Ophth Oint 3.5 Gm OU Q4HR PRN Dry Eye(s) Senna/Docusate Sodium 1 tab 08/25/20 22:00 09/02/20 03:20 Sennosides/Docusate Sodium 8.6/50 Mg Tab FEEDTUBE 1 tab BID TERA Administration Simple Syrup 15 ml 08/26/20 12:15 Simple Syrup 15 Ml FEEDTUBE PRN PRN Hypoglycemia Simple Syrup 30 ml 08/26/20 12:15 Simple Syrup 15 Ml FEEDTUBE PRN PRN Hypoglycemia Sodium Bicarbonate 325 mg 08/26/20 12:15 Sodium Bicarbonate 325 Mg Tab FEEDTUBE PRN PRN For Clogged Feeding Tube Sodium Chloride 10 ml 08/25/20 22:00 09/02/20 09:12 Sodium Chloride 0.9% 10 Ml Flush Syringe IV 10 ml BID TERA Administration Sodium Chloride 10 ml 08/25/20 14:55 08/29/20 04:05 Sodium Chloride 0.9% 10 Ml Flush Syringe IV 10 ml PRN PRN Administration LINE FLUSH Tamsulosin HCl 0.4 mg 08/31/20 15:00 09/02/20 09:10 Tamsulosin 0.4 Mg Cap PO 0.4 mg QDAY TERA Administration Nutrition/Malnutrition Assess - Dietary Evaluation Nutrition/Malnutrition Findings: Nutrition Notes Start: 08/26/20 10:21 Freq: Status: Active Protocol: Document 09/01/20 11:05 JUAN (Rec: 09/01/20 11:13 JUAN [id number]) Nutrition Notes Initial or Follow up Reassessment Current Diagnosis Acute Kidney Injury,CKD(stage I-IV),Diabetes,Hypertension, Heart Failure,Respiratory Failure Other Pertinent Diagnosis cardiac arrest, acute encephalopathy, pneu, anoxIC brain injury, GERD Current Diet Nepro 1.8 at 30 ml/hr Labs/Tests Na 134 BUN 81 Cr 3.7 Phos 4.6 Mg 2.4 Pertinent Medications [place] Height 5 ft 5 in Weight 95.4 kg Ages [place] Body Weight (kg) 56.81 BMI 34.9 Weight change and time frame wt change noted, pt has edema Weight Status Obese Subjective/Other Information FU for TF tolerance. Observed TF running at goal rate. No BM in chart, informed RN. Percent of energy/protein needs met: 100%/58% Burn Absent Trauma Absent Current % PO Negligible Minimum of two criteria No physical signs of malnutrition #1 Nutrition Diagnosis Inadequate oral intake Diagnosis Progress(for reassessment Continues documentation) Is patient on ventilator? Yes Is Patient Ambulatory and/or Out of Bed No REE-(Story-St. Jeor-confined to bed) 1740.000 Kcal/Kg value to use for calculation 13 Approximate Energy Requirements Using 1240 kcal/Kg Calculation Used for Recommendations Kcal/kg Additional Notes protein needs: >114g (>2 g/ kgIBW) fluid needs 1500 - 1900 ml or per MD order Nutrition Intervention Change Diet Order: Continue TF Nutrition Support: Nepro at 30 ml/hr with a free water flush of 130 ml q4h Kcal 1,296 Protein (gm) 58 Fluid (mL) 523 Goal #1 Meet at least 75% of kcal and protein needs as best as possible Anticipated Discharge Needs: unable to determine at this time Follow-Up By: 09/06/20 Additional Comments FU for TF tolerance, BM <AMBER GONZALEZ - Last Filed: 09/03/20 15:00> Assessment and Plan Assessment and plan: Patient seen and examined, continues to be intubated. Patient was having some facial twitching, given Ativan. Reassessment plan as outlined by nurse practitioner as above. Hospitalist Physical - Constitutional Vitals: Temp Pulse Resp BP Pulse Ox 98.3 F 83 24 151/63 98 09/03/20 12:00 09/03/20 13:36 09/03/20 13:31 09/03/20 13:36 09/03/20 13:31 HEART Score - HEART Score Troponin: Troponin T 0.057 ng/mL (0.00-0.029) H 08/25/20 11:23 Results - Labs CBC & Chem 7: 09/03/20 08:31 09/03/20 08:31 Labs: Laboratory Last Values WBC 18.5 K/mm3 (4.5-11.0) H 09/03/20 08:31 RBC 2.80 M/mm3 (3.65-5.03) L 09/03/20 08:31 Hgb 7.8 gm/dl (10.1-14.3) L 09/03/20 08:31 Hct 22.7 % (30.3-42.9) L D 09/03/20 08:31 MCV 81 fl (79-97) 09/03/20 08:31 MCH 28 pg (28-32) 09/03/20 08:31 MCHC 35 % (30-34) H 09/03/20 08:31 RDW 15.3 % (13.2-15.2) H 09/03/20 08:31 Plt Count 277 K/mm3 (140-440) 09/03/20 08:31 Lymph % (Auto) 5.9 % (13.4-35.0) L 08/27/20 07:24 [place] % (Auto) 4.6 % (0.0-7.3) 08/27/20 07:24 Eos % (Auto) 2.2 % (0.0-4.3) 08/27/20 07:24 Baso % (Auto) 0.4 % (0.0-1.8) 08/27/20 07:24 Lymph # (Auto) 0.8 K/mm3 (1.2-5.4) L 08/27/20 07:24 [place] # (Auto) 0.6 K/mm3 (0.0-0.8) 08/27/20 07:24 Eos # (Auto) 0.3 K/mm3 (0.0-0.4) 08/27/20 07:24 Baso # (Auto) 0.0 K/mm3 (0.0-0.1) 08/27/20 07:24 Add Manual Diff Complete 08/26/20 05:04 Total Counted 100 08/26/20 05:04 Seg Neutrophils % 86.9 % (40.0-70.0) H 08/27/20 07:24 Seg Neuts % (Manual) 96.0 % (40.0-70.0) H 08/26/20 05:04 Band Neutrophils % 2.0 % 08/25/20 11:23 Lymphocytes % (Manual) 1.0 % (13.4-35.0) L 08/26/20 05:04 Monocytes % (Manual) 3.0 % (0.0-7.3) 08/26/20 05:04 Eosinophils % (Manual) 3.0 % (0.0-4.3) 08/25/20 11:23 Metamyelocytes % 1.0 % 08/25/20 11:23 Nucleated RBC % Not Reportable 08/26/20 05:04 Seg Neutrophils # 11.0 K/mm3 (1.8-7.7) H 08/27/20 07:24 Seg Neutrophils # Man 17.2 K/mm3 (1.8-7.7) H 08/26/20 05:04 Band Neutrophils # 0.0 K/mm3 08/26/20 05:04 Lymphocytes # (Manual) 0.2 K/mm3 (1.2-5.4) L 08/26/20 05:04 Abs React Lymphs (Man) 0.0 K/mm3 08/26/20 05:04 Monocytes # (Manual) 0.5 K/mm3 (0.0-0.8) 08/26/20 05:04 Eosinophils # (Manual) 0.0 K/mm3 (0.0-0.4) 08/26/20 05:04 Basophils # (Manual) 0.0 K/mm3 (0.0-0.1) 08/26/20 05:04 Metamyelocytes # 0.0 K/mm3 08/26/20 05:04 Myelocytes # 0.0 K/mm3 08/26/20 05:04 Promyelocytes # 0.0 K/mm3 08/26/20 05:04 Blast Cells # 0.0 K/mm3 08/26/20 05:04 WBC Morphology Not Reportable 08/26/20 05:04 Hypersegmented Neuts Not Reportable 08/26/20 05:04 Hyposegmented Neuts Not Reportable 08/26/20 05:04 Hypogranular Neuts Not Reportable 08/26/20 05:04 Smudge Cells Not Reportable 08/26/20 05:04 Toxic Granulation Not Reportable 08/26/20 05:04 Toxic Vacuolation Not Reportable 08/26/20 05:04 Dohle Bodies Not Reportable 08/26/20 05:04 Pelger-Huet Anomaly Not Reportable 08/26/20 05:04 Jannette Rods Not Reportable 08/26/20 05:04 Platelet Estimate Consistent w auto 08/26/20 05:04 Clumped Platelets Not Reportable 08/26/20 05:04 Plt Clumps, EDTA Not Reportable 08/26/20 05:04 Large Platelets Not Reportable 08/26/20 05:04 Giant Platelets Not Reportable 08/26/20 05:04 Platelet Satelliting Not Reportable 08/26/20 05:04 Plt Morphology Comment Not Reportable 08/26/20 05:04 RBC Morphology Not Reportable 08/26/20 05:04 Dimorphic RBCs Not Reportable 08/26/20 05:04 Polychromasia Not Reportable 08/26/20 05:04 Hypochromasia Not Reportable 08/26/20 05:04 Poikilocytosis Not Reportable 08/26/20 05:04 Anisocytosis 1+ 08/26/20 05:04 Microcytosis Not Reportable 08/26/20 05:04 Macrocytosis Not Reportable 08/26/20 05:04 Spherocytes Not Reportable 08/26/20 05:04 Pappenheimer Bodies Not Reportable 08/26/20 05:04 Sickle Cells Not Reportable 08/26/20 05:04 Target Cells Not Reportable 08/26/20 05:04 Tear Drop Cells Not Reportable 08/26/20 05:04 Ovalocytes Not Reportable 08/26/20 05:04 Helmet Cells Not Reportable 08/26/20 05:04 [place] Bodies Not Reportable 08/26/20 05:04 [place] Rings Not Reportable 08/26/20 05:04 Danube Cells Not Reportable 08/26/20 05:04 Bite Cells Not Reportable 08/26/20 05:04 Crenated Cell Not Reportable 08/26/20 05:04 Elliptocytes Not Reportable 08/26/20 05:04 Acanthocytes (Spur) Not Reportable 08/26/20 05:04 Rouleaux Not Reportable 08/26/20 05:04 Hemoglobin C Crystals Not Reportable 08/26/20 05:04 Schistocytes Not Reportable 08/26/20 05:04 Malaria parasites Not Reportable 08/26/20 05:04 Shabbir Bodies Not Reportable 08/26/20 05:04 Hem Pathologist Commnt No 08/26/20 05:04 D-Dimer > 91035 ng/mlDDU (0-234) H 08/25/20 11:23 ABG pH 7.462 (7.320-7.450) H 09/01/20 12:51 POC ABG pCO2 39.5 mmHg (32.0-48.0) 09/01/20 12:51 ABG pCO2 36.6 mm Hg 08/31/20 04:10 POC ABG pO2 102.7 mmHg (83-108) 09/01/20 12:51 ABG pO2 99.6 mm Hg (80.0-90.0) H 08/31/20 04:10 POC ABG HCO3 27.6 09/01/20 12:51 ABG HCO3 24.9 mmol/L (20.0-26.0) 08/31/20 04:10 ABG O2 Saturation 98.0 (0-100) 09/01/20 12:51 ABG O2 Content 11.6 (0.0-44) 08/31/20 04:10 POC ABG Base Excess 3.6 09/01/20 12:51 ABG Base Excess 1.0 mmol/L (-2.0-3.0) 08/31/20 04:10 ABG Hemoglobin 9.5 (12.0-17.5) L 09/01/20 12:51 ABG Oxyhemoglobin 97.3 (94-98) 09/01/20 12:51 ABG Carboxyhemoglobin 1.4 % (0.0-5.0) 08/31/20 04:10 ABG Methemoglobin 0.3 (0.0-1.5) 09/01/20 12:51 ABG Sodium 130.4 mmol/L (136.0-145.0) L 09/01/20 12:51 ABG Potassium 3.4 mmol/L (3.40-4.50) 09/01/20 12:51 ABG Chloride 98.0 mmol/L (98-107) 09/01/20 12:51 ABG Glucose 208 mg/dL (65-95) H 09/01/20 12:51 Oxyhemoglobin 95.9 % (95.0-99.0) 08/31/20 04:10 Carboxyhemoglobin 0.4 (0.5-1.5) L 09/01/20 12:51 FiO2 30 % 08/31/20 04:10 FiO2 % 30.0 09/01/20 12:51 Sodium 134 mmol/L (137-145) L 09/03/20 08:31 Potassium 3.6 mmol/L (3.6-5.0) 09/03/20 08:31 Chloride 96.6 mmol/L (98-107) L 09/03/20 08:31 Carbon Dioxide 24 mmol/L (22-30) 09/03/20 08:31 Anion Gap 17 mmol/L 09/03/20 08:31 BUN 96 mg/dL (7-17) H 09/03/20 08:31 Creatinine 3.7 mg/dL (0.6-1.2) H 09/03/20 08:31 Estimated GFR 12 ml/min 09/03/20 08:31 BUN/Creatinine Ratio 26 % 09/03/20 08:31 Glucose 190 mg/dL (65-100) H 09/03/20 08:31 POC Glucose 156 mg/dL (70-105) H 09/03/20 12:02 Lactic Acid 1.80 mmol/L (0.7-2.0) 08/25/20 12:45 Calcium 8.1 mg/dL (8.4-10.2) L 09/03/20 08:31 Phosphorus 4.60 mg/dL (2.5-4.5) H 09/01/20 09:41 Magnesium 2.40 mg/dL (1.7-2.3) H 09/01/20 09:41 Total Bilirubin < 0.20 mg/dL (0.1-1.2) 08/28/20 04:19 AST 37 units/L (5-40) 08/28/20 04:19 ALT 27 units/L (7-56) 08/28/20 04:19 Alkaline Phosphatase 84 units/L (35-129) 08/28/20 04:19 Troponin T 0.057 ng/mL (0.00-0.029) H 08/25/20 11:23 C-Reactive Protein 7.80 mg/dL (0.00-1.30) H 08/26/20 18:50 Total Protein 4.8 g/dL (6.3-8.2) L 08/28/20 04:19 Albumin 2.4 g/dL (3.9-5) L 08/28/20 04:19 Albumin/Globulin Ratio 1.0 % 08/28/20 04:19 Triglycerides 111 mg/dL (2-149) 08/29/20 04:32 Cholesterol 158 mg/dL (50-199) 08/25/20 11:23 LDL Cholesterol Direct 101 mg/dL (50-130) 08/25/20 11:23 HDL Cholesterol 50 mg/dL (40-59) 08/25/20 11:23 Cholesterol/HDL Ratio 3.16 % 08/25/20 11:23 Procalcitonin 0.41 ng/mL (<0.15) 08/26/20 18:50 Arterial Blood Glucose 208 mg/dL (65-95) H 09/01/20 12:51 Arterial Blood Ionized Calcium 4.5 mg/dL (4.6-5.3) L 09/01/20 12:51 Urine Color Yellow (Yellow) 08/25/20 11:17 Urine Turbidity Cloudy (Clear) 08/25/20 11:17 Urine pH 7.0 (5.0-7.0) 08/25/20 11:17 Ur Specific [place] 1.012 (1.003-1.030) 08/25/20 11:17 Urine Protein >500 mg/dL (Negative) 08/25/20 11:17 Urine Glucose (UA) >=500 mg/dL (Negative) 08/25/20 11:17 Urine Ketones Neg mg/dL (Negative) 08/25/20 11:17 Urine Blood Sm (Negative) 08/25/20 11:17 Urine Nitrite Neg (Negative) 08/25/20 11:17 Urine Bilirubin Neg (Negative) 08/25/20 11:17 Urine Urobilinogen < 2.0 mg/dL (<2.0) 08/25/20 11:17 Ur Leukocyte Esterase Neg (Negative) 08/25/20 11:17 Urine WBC (Auto) 31.0 /HPF (0.0-6.0) H 08/25/20 11:17 Urine RBC (Auto) 28.0 /HPF (0.0-6.0) 08/25/20 11:17 U Epithel Cells (Auto) 5.0 /HPF (0-13.0) 08/25/20 11:17 Urine Bacteria (Auto) 1+ /HPF (Negative) 08/25/20 11:17 Urine WBC Clumps Few /HPF 08/25/20 11:17 Ur Renal Epithelial Cell 4 /LPF 08/25/20 11:17 Hyaline Casts 28 /LPF 08/25/20 11:17 Urine Creatinine 67.4 mg/dL (0.1-20.0) H 08/26/20 17:00 Urine Sodium 12 mmol/L 08/26/20 17:00 Coronavirus (PCR) Negative (Negative) 08/26/20 Unknown Foreman/IV: Voiding Method Indwelling Catheter Active Medications - Current Medications Current Medications: Generic Name Dose Route Start Last Admin Trade Name Freq PRN Reason Stop Dose Admin Albuterol 2.5 mg 08/25/20 14:55 Albuterol 2.5 Mg/3 Ml Nebu IH Q3HRT PRN Shortness Of Breath Amlodipine Besylate 5 mg 08/28/20 10:00 09/03/20 10:31 Amlodipine 5 Mg Tab PO 5 mg QDAY TERA Administration Lipase/Protease/Amylase 1 each 08/26/20 12:15 Lipase 10,500/Protease 25,000/Amylase 43,750 (Units) Dr Gu FEEDTUBE PRN PRN For Clogged Feeding Tube Aspirin 81 mg 08/27/20 10:00 09/03/20 10:30 Aspirin 81 Mg Tab Chew PO 81 mg QDAY TERA Administration Atorvastatin Calcium 40 mg 08/26/20 22:00 09/02/20 21:43 Atorvastatin 40 Mg Tab PO 40 mg QHS TERA Administration Dextrose 50 ml 08/26/20 19:18 Dextrose 50% In Water (25gm) 50 Ml Syringe IV Q30MIN PRN Hypoglycemia Protocol Famotidine 20 mg 08/28/20 10:00 09/03/20 10:30 Famotidine 20 Mg Tab PO 20 mg DAILY TERA Administration Furosemide 40 mg 09/03/20 11:00 09/03/20 13:36 Furosemide 40 Mg/4 Ml Inj IV 40 mg 0600,1800 TERA Administration Heparin Sodium (Porcine) 5,000 unit 08/26/20 22:00 09/03/20 10:30 Heparin 5,000 Unit/1 Ml Vial SUB-Q 5,000 unit Q12HR TERA Administration Hydralazine HCl 10 mg 08/26/20 01:20 08/31/20 08:45 Hydralazine 20 Mg/1 Ml Inj IV 10 mg Q4HR PRN Administration Blood Pressure Hydralazine HCl 50 mg 09/01/20 14:00 09/03/20 13:36 Hydralazine 25 Mg Tab PO 50 mg Q8HR TERA Administration Hydrophilic Ointment 1 applic 08/25/20 11:07 08/25/20 11:57 Lip Therapy Vaseline TP 1 applic Q2HR PRN Administration Dry Lips Insulin Glargine 25 units 09/01/20 22:00 09/02/20 21:44 Insulin Glargine 100 Units/Ml SUB-Q 25 units QHS TERA Administration Insulin Human Lispro 0 unit 08/27/20 12:00 09/03/20 13:37 Insulin Lispro 100 Unit/Ml SUB-Q 2 unit Q6HR TERA Administration Protocol Lacosamide 100 mg 09/02/20 10:00 09/03/20 10:29 Lacosamide 100 Mg Tab PO 100 mg Q12HR TERA Administration Levetiracetam 1,000 mg 09/03/20 10:00 09/03/20 10:29 Levetiracetam 500 Mg/5 Ml Oral Liqd PO 1,000 mg BID TERA Administration Metoprolol Tartrate 12.5 mg 08/29/20 22:00 09/03/20 10:31 Metoprolol Tartrate 25 Mg Tab PO 12.5 mg BID TERA Administration Multi-Ingred Cream/Lotion/Oil/Oint 1 applic 08/25/20 11:07 Mineral Oil/Petrolatum, White Ophth Oint 3.5 Gm OU Q4HR PRN Dry Eye(s) Senna/Docusate Sodium 1 tab 08/25/20 22:00 09/03/20 10:30 Sennosides/Docusate Sodium 8.6/50 Mg Tab FEEDTUBE 1 tab BID TERA Administration Simple Syrup 15 ml 08/26/20 12:15 Simple Syrup 15 Ml FEEDTUBE PRN PRN Hypoglycemia Simple Syrup 30 ml 08/26/20 12:15 Simple Syrup 15 Ml FEEDTUBE PRN PRN Hypoglycemia Sodium Bicarbonate 325 mg 08/26/20 12:15 Sodium Bicarbonate 325 Mg Tab FEEDTUBE PRN PRN For Clogged Feeding Tube Sodium Chloride 10 ml 08/25/20 22:00 09/03/20 10:32 Sodium Chloride 0.9% 10 Ml Flush Syringe IV 10 ml BID TERA Administration Sodium Chloride 10 ml 08/25/20 14:55 08/29/20 04:05 Sodium Chloride 0.9% 10 Ml Flush Syringe IV 10 ml PRN PRN Administration LINE FLUSH Tamsulosin HCl 0.4 mg 08/31/20 15:00 09/03/20 10:35 Tamsulosin 0.4 Mg Cap PO 0.4 mg QDAY TERA Administration Nutrition/Malnutrition Assess - Dietary Evaluation Nutrition/Malnutrition Findings: Nutrition Notes Start: 08/26/20 10:21 Freq: Status: Active Protocol: Document 09/01/20 11:05 (Rec: 09/01/20 11:13 [id number]) Nutrition Notes Initial or Follow up Reassessment Current Diagnosis Acute Kidney Injury,CKD(stage I-IV),Diabetes,Hypertension, Heart Failure,Respiratory Failure Other Pertinent Diagnosis cardiac arrest, acute encephalopathy, pneu, anoxIC brain injury, GERD Current Diet Nepro 1.8 at 30 ml/hr Labs/Tests Na 134 BUN 81 Cr 3.7 Phos 4.6 Mg 2.4 Pertinent Medications [place] Height 5 ft 5 in Weight 95.4 kg Ages [place] Body Weight (kg) 56.81 BMI 34.9 Weight change and time frame wt change noted, pt has edema Weight Status Obese Subjective/Other Information FU for TF tolerance. Observed TF running at goal rate. No BM in chart, informed RN. Percent of energy/protein needs met: 100%/58% Burn Absent Trauma Absent Current % PO Negligible Minimum of two criteria No physical signs of malnutrition #1 Nutrition Diagnosis Inadequate oral intake Diagnosis Progress(for reassessment Continues documentation) Is patient on ventilator? Yes Is Patient Ambulatory and/or Out of Bed No REE-([facility]-confined to bed) 1740.000 Kcal/Kg value to use for calculation 13 Approximate Energy Requirements Using 1240 kcal/Kg Calculation Used for Recommendations Kcal/kg Additional Notes protein needs: >114g (>2 g/ kgIBW) fluid needs 1500 - 1900 ml or per MD order Nutrition Intervention Change Diet Order: Continue TF Nutrition Support: Nepro at 30 ml/hr with a free water flush of 130 ml q4h Kcal 1,296 Protein (gm) 58 Fluid (mL) 523 Goal #1 Meet at least 75% of kcal and protein needs as best as possible Anticipated Discharge Needs: unable to determine at this time Follow-Up By: 09/06/20 Additional Comments FU for TF tolerance, BM
--- NOTE | 2020-09-02 13:23 | Progress Note ---
Assessment and Plan Patient admitted to ICU with Acute hypoxemic respiratory failure; Cardiac arrest with ROSC; Acute encephalopathy; Multifocal pneumonia; pulmonary edema; AE-CHF; Hyperkalemia; FLORIDALMA; NSTEMI This is a 69-year-old female with OHS, DM, CKD stage IV, obesity ,CHF, GERD, HTN, chronic respiratory failure on 3 L of home oxygen via nasal cannula who presented to the emergency department on 08/25 after being found down un responsive at 0950 hours by family and upon EMS arrival she was unresponsive and asystolic arrest. Patient was treated with ACLS protocol with eventual ROSC after at least 15 minutes of ACLS and patient was transported to [facility]. In the emergency department patient was found to have acute hypoxic respiratory failure and subsequently intubated on vasopressor support, CXR which showed bilateral pneumonia and exam is consistent with SIRS. Patient not responding to verbal stimuli. Patient is pressure support mechanical ventilation, Pressure support 12, FIO2 30%, PEEP 6 and O2 saturation running 98%. I was told patient having seizures . Patient was given Keppra and lacosamide. Patient resting on ventilator at this time. No ventilator asynchorny. Patient afebrile and has mild leukocytosis. Blood pressure 108/39. Heart rate 65. Chest xray 09/01/20 reported Severe bilateral airspace disease present. This has slightly worsened from yesterday's exam. Patient is on S/C Heparin, Famotidine, Albuterol inhaler as needed for shortness of breath. Patients son at bed side and explained to him patients respiratory status. I spent critical care time of 40 minutes by reviewing the chart, examine the patient, review labs, chest xray and talking to the nursing and respiratory therapy and work out plan of treatment in this critically ill patient. - Patient Problems (1) Acute respiratory failure with hypoxia Current Visit: No Status: Acute Plan to address problem: Mechanical ventilation, Pressure support 12, FIO2 30%,PEEP 6 Albuterol inhaler S/C heparin Famotidine. (2) Multifocal pneumonia Current Visit: Yes Status: Acute Plan to address problem: Patient treated with Levaquin (3) Acute renal failure superimposed on chronic kidney disease Current Visit: Yes Status: Acute Plan to address problem: Management as per nephrology. (4) Anoxic encephalopathy Current Visit: Yes Status: Acute Plan to address problem: Supportive care. Management as per primary care. (5) Cardiac arrest Current Visit: Yes Status: Acute Plan to address problem: Patient resucitated, ROSC and on Mechanical ventilation. (6) Cardiomyopathy Current Visit: Yes Status: Chronic Plan to address problem: Management as per cardiology. (7) Diabetes Current Visit: Yes Status: Chronic Plan to address problem: Management as per primary care. (8) Hypertension Current Visit: Yes Status: Chronic Plan to address problem: Management as per primary care. (9) Suspected COVID-19 virus infection Current Visit: No Status: Acute Plan to address problem: Null virus PCR Negative. Subjective Date of service: 09/02/20 Principal diagnosis: Ac. hypoxemic resp failure; Cardiac arrest; AMS; AE-CHF; Hyperkalemia; FLORIDALMA Interval history: Patient admitted to ICU with Acute hypoxemic respiratory failure; Cardiac arrest with ROSC; Acute encephalopathy; Multifocal pneumonia; pulmonary edema; AE-CHF; Hyperkalemia; FLORIDALMA; NSTEMI This is a 69-year-old female with OHS, DM, CKD stage IV, obesity ,CHF, GERD, HTN, chronic respiratory failure on 3 L of home oxygen via nasal cannula who presented to the emergency department on 08/25 after being found down unresponsive at 0950 hours by family and upon EMS arrival she was unresponsive and asystolic arrest. Patient was treated with ACLS protocol with eventual ROSC after at least 15 minutes of ACLS and patient was transported to [facility]. In the emergency department patient was found to have acute hypoxic respiratory failure and subsequently intubated on vasopressor support, CXR which showed bilateral pneumonia and exam is consistent with SIRS. Patient not responding to verbal stimuli. Patient is pressure support mechanical ventilation, Pressure support 12, FIO2 30%, PEEP 6 and O2 saturation running 98%. I was told patient having seizures . Patient was given Keppra and lacosamid e. Patient resting on ventilator at this time. No ventilator asynchorny. Patient afebrile and has mild leukocytosis. Blood pressure 108/39. Heart rate 65. Chest xray 09/01/20 reported Severe bilateral airspace disease present. This has slightly worsened from yesterday's exam. Patient is on S/C Heparin, Famotidine, Albuterol inhaler as needed for shortness of breath. Objective Vital Signs - 12hr 09/02/20 09/02/20 09/02/20 01:31 02:00 02:30 Temperature Pulse Rate 61 61 58 L Pulse Rate [ From Monitor] Respiratory 17 17 15 Rate Blood Pressure 144/54 141/57 127/50 O2 Sat by Pulse 98 98 97 Oximetry 09/02/20 09/02/20 09/02/20 03:01 03:31 03:35 Temperature Pulse Rate 62 66 63 Pulse Rate [ From Monitor] Respiratory 18 20 Rate Blood Pressure 150/58 179/72 179/72 O2 Sat by Pulse 97 95 99 Oximetry 09/02/20 09/02/20 09/02/20 03:59 04:00 04:01 Temperature 97.8 F Pulse Rate 50 L 63 Pulse Rate [ 50 L From Monitor] Respiratory 18 Rate Blood Pressure 137/64 O2 Sat by Pulse 96 Oximetry 09/02/20 09/02/20 09/02/20 04:31 05:01 05:31 Temperature Pulse Rate 60 63 61 Pulse Rate [ From Monitor] Respiratory 16 18 15 Rate Blood Pressure 133/61 160/66 157/62 O2 Sat by Pulse 96 96 96 Oximetry 09/02/20 09/02/20 09/02/20 06:00 06:30 06:31 Temperature Pulse Rate 62 52 L 62 Pulse Rate [ From Monitor] Respiratory 16 17 Rate Blood Pressure 130/66 130/66 120/63 O2 Sat by Pulse 95 97 Oximetry 09/02/20 09/02/20 09/02/20 07:01 07:31 07:37 Temperature Pulse Rate 64 64 67 Pulse Rate [ From Monitor] Respiratory 18 16 Rate Blood Pressure 120/63 130/51 130/51 O2 Sat by Pulse 94 94 Oximetry 09/02/20 09/02/20 09/02/20 08:00 08:01 08:31 Temperature 97.8 F Pulse Rate 67 71 Pulse Rate [ From Monitor] Respiratory 20 16 Rate Blood Pressure 130/51 113/56 O2 Sat by Pulse 98 98 Oximetry 09/02/20 09/02/20 09/02/20 09:01 09:11 09:12 Temperature Pulse Rate 67 68 68 Pulse Rate [ From Monitor] Respiratory 17 Rate Blood Pressure 104/50 104/50 104/50 O2 Sat by Pulse 97 Oximetry 09/02/20 09/02/20 09/02/20 09:31 10:01 10:30 Temperature Pulse Rate 67 66 66 Pulse Rate [ From Monitor] Respiratory 17 19 17 Rate Blood Pressure 96/42 107/38 107/46 O2 Sat by Pulse 97 98 98 Oximetry 09/02/20 09/02/20 09/02/20 11:01 11:21 11:31 Temperature Pulse Rate 67 68 67 Pulse Rate [ From Monitor] Respiratory 19 18 18 Rate Blood Pressure 115/41 115/41 108/51 O2 Sat by Pulse 98 100 100 Oximetry 09/02/20 09/02/20 09/02/20 12:00 12:01 12:31 Temperature 97.8 F Pulse Rate 65 66 Pulse Rate [ From Monitor] Respiratory 20 18 Rate Blood Pressure 114/45 124/47 O2 Sat by Pulse 98 98 Oximetry 09/02/20 13:01 Temperature Pulse Rate 65 Pulse Rate [ From Monitor] Respiratory 19 Rate Blood Pressure 108/39 O2 Sat by Pulse 97 Oximetry Constitutional: no acute distress, asleep, other (elderly obese female with mildly increased respirtatory effort at rest on MVS ) Eyes: non-icteric ENT: oropharynx moist, oropharyngeal exudate pre (clear), other (ETT 24 cm DIMAS) Neck: supple, no lymphadenopathy, no JVD Effort: mildly labored Ascultation: Bilateral: diminished breath sounds (bases), rhonchi Percussion: Bilateral: not dull Cardiovascular: regular rate and rhythm, other (S1,S2) Gastrointestinal: normoactive bowel sounds, soft, non-tender, non-distended Integumentary: normal Extremities: no cyanosis, no edema, pulses normal, no ischemia or petechiae Neurologic: pupils equal and round, unable to assess, other (encephalopathic) Psychiatric: other (unable to assess re: AMS) CBC and BMP: 09/01/20 09:41 09/02/20 07:35 ABG, PT/INR, D-dimer: ABG ABG pH 7.462 (7.320-7.450) H 09/01/20 12:51 POC ABG pCO2 39.5 mmHg (32.0-48.0) 09/01/20 12:51 ABG pCO2 36.6 mm Hg 08/31/20 04:10 POC ABG pO2 102.7 mmHg (83-108) 09/01/20 12:51 ABG pO2 99.6 mm Hg (80.0-90.0) H 08/31/20 04:10 POC ABG HCO3 27.6 09/01/20 12:51 ABG O2 Saturation 98.0 (0-100) 09/01/20 12:51 PT/INR, D-dimer D-Dimer > 34931 ng/mlDDU (0-234) H 08/25/20 11:23 Abnormal lab findings: Abnormal Labs 08/25/20 08/25/20 08/25/20 11:14 11:17 11:23 WBC 11.5 H RBC 3.22 L Hgb 8.6 L Hct 27.6 L MCH 27 L RDW 15.6 H Lymph % (Auto) Lymph # (Auto) Seg Neutrophils % Seg Neuts % (Manual) 89.0 H Lymphocytes % (Manual) 5.0 L Seg Neutrophils # Seg Neutrophils # Man 10.2 H Lymphocytes # (Manual) 0.6 L D-Dimer ABG pH 7.290 L POC ABG pO2 161.1 H ABG pO2 ABG HCO3 ABG Hemoglobin 8.9 L ABG Oxyhemoglobin 98.6 H ABG Sodium 135.2 L ABG Potassium 5.9 H ABG Glucose 210 H Oxyhemoglobin Carboxyhemoglobin 0.4 L Sodium Potassium Chloride Carbon Dioxide BUN Creatinine Glucose POC Glucose Lactic Acid Calcium Phosphorus Magnesium AST ALT Troponin T C-Reactive Protein Total Protein Albumin Arterial Blood Glucose 210 H Arterial Blood Ionized Calcium 4.4 L Urine WBC (Auto) 31.0 H Urine Creatinine 08/25/20 08/25/20 08/25/20 11:23 11:23 11:23 WBC RBC Hgb Hct MCH RDW Lymph % (Auto) Lymph # (Auto) Seg Neutrophils % Seg Neuts % (Manual) Lymphocytes % (Manual) Seg Neutrophils # Seg Neutrophils # Man Lymphocytes # (Manual) D-Dimer > 23629 H ABG pH POC ABG pO2 ABG pO2 ABG HCO3 ABG Hemoglobin ABG Oxyhemoglobin ABG Sodium ABG Potassium ABG Glucose Oxyhemoglobin Carboxyhemoglobin Sodium Potassium 6.4 H* Chloride Carbon Dioxide 21 L BUN 52 H Creatinine 3.5 H Glucose 194 H POC Glucose Lactic Acid 3.30 H* Calcium 8.1 L Phosphorus Magnesium AST 103 H ALT 77 H Troponin T 0.057 H C-Reactive Protein Total Protein 5.8 L Albumin 3.4 L Arterial Blood Glucose Arterial Blood Ionized Calcium Urine WBC (Auto) Urine Creatinine 08/25/20 08/25/20 08/25/20 13:51 15:45 20:34 WBC RBC Hgb Hct MCH RDW Lymph % (Auto) Lymph # (Auto) Seg Neutrophils % Seg Neuts % (Manual) Lymphocytes % (Manual) Seg Neutrophils # Seg Neutrophils # Man Lymphocytes # (Manual) D-Dimer ABG pH POC ABG pO2 66.3 L ABG pO2 ABG HCO3 ABG Hemoglobin 9.1 L ABG Oxyhemoglobin 92.5 L ABG Sodium ABG Potassium ABG Glucose 225 H Oxyhemoglobin Carboxyhemoglobin Sodium Potassium Chloride Carbon Dioxide BUN Creatinine Glucose POC Glucose 188 H 233 H Lactic Acid Calcium Phosphorus Magnesium AST ALT Troponin T C-Reactive Protein Total Protein Albumin Arterial Blood Glucose 225 H Arterial Blood Ionized Calcium 4.4 L Urine WBC (Auto) Urine Creatinine 08/26/20 08/26/20 08/26/20 04:14 05:04 05:04 WBC 17.9 H RBC 3.05 L Hgb 8.3 L Hct 25.6 L MCH 27 L RDW 15.3 H Lymph % (Auto) Lymph # (Auto) Seg Neutrophils % Seg Neuts % (Manual) 96.0 H Lymphocytes % (Manual) 1.0 L Seg Neutrophils # Seg Neutrophils # Man 17.2 H Lymphocytes # (Manual) 0.2 L D-Dimer ABG pH POC ABG pO2 131.3 H ABG pO2 ABG HCO3 ABG Hemoglobin 8.6 L ABG Oxyhemoglobin 98.2 H ABG Sodium ABG Potassium ABG Glucose 182 H Oxyhemoglobin Carboxyhemoglobin 0.2 L Sodium Potassium Chloride Carbon Dioxide BUN 56 H Creatinine 3.4 H Glucose 187 H POC Glucose Lactic Acid Calcium 8.3 L Phosphorus Magnesium AST 54 H ALT 57 H Troponin T C-Reactive Protein Total Protein 5.4 L Albumin 2.9 L Arterial Blood Glucose 182 H Arterial Blood Ionized Calcium 4.3 L Urine WBC (Auto) Urine Creatinine 08/26/20 08/26/20 08/26/20 05:40 07:36 11:54 WBC RBC Hgb Hct MCH RDW Lymph % (Auto) Lymph # (Auto) Seg Neutrophils % Seg Neuts % (Manual) Lymphocytes % (Manual) Seg Neutrophils # Seg Neutrophils # Man Lymphocytes # (Manual) D-Dimer ABG pH POC ABG pO2 ABG pO2 ABG HCO3 ABG Hemoglobin ABG Oxyhemoglobin ABG Sodium ABG Potassium ABG Glucose Oxyhemoglobin Carboxyhemoglobin Sodium Potassium Chloride Carbon Dioxide BUN Creatinine Glucose POC Glucose 179 H 171 H 190 H Lactic Acid Calcium Phosphorus Magnesium AST ALT Troponin T C-Reactive Protein Total Protein Albumin Arterial Blood Glucose Arterial Blood Ionized Calcium Urine WBC (Auto) Urine Creatinine 08/26/20 08/26/20 08/26/20 15:14 17:00 18:50 WBC RBC Hgb Hct MCH RDW Lymph % (Auto) Lymph # (Auto) Seg Neutrophils % Seg Neuts % (Manual) Lymphocytes % (Manual) Seg Neutrophils # Seg Neutrophils # Man Lymphocytes # (Manual) D-Dimer ABG pH POC ABG pO2 ABG pO2 ABG HCO3 ABG Hemoglobin ABG Oxyhemoglobin ABG Sodium ABG Potassium ABG Glucose Oxyhemoglobin Carboxyhemoglobin Sodium Potassium Chloride Carbon Dioxide BUN Creatinine Glucose POC Glucose 158 H Lactic Acid Calcium Phosphorus Magnesium AST ALT Troponin T C-Reactive Protein 7.80 H Total Protein Albumin Arterial Blood Glucose Arterial Blood Ionized Calcium Urine WBC (Auto) Urine Creatinine 67.4 H 08/26/20 08/27/20 08/27/20 22:01 04:10 05:12 WBC RBC Hgb Hct MCH RDW Lymph % (Auto) Lymph # (Auto) Seg Neutrophils % Seg Neuts % (Manual) Lymphocytes % (Manual) Seg Neutrophils # Seg Neutrophils # Man Lymphocytes # (Manual) D-Dimer ABG pH 7.454 H POC ABG pO2 74.9 L ABG pO2 ABG HCO3 ABG Hemoglobin 7.9 L ABG Oxyhemoglobin ABG Sodium ABG Potassium ABG Glucose 117 H Oxyhemoglobin Carboxyhemoglobin Sodium Potassium Chloride Carbon Dioxide BUN Creatinine Glucose POC Glucose 122 H 117 H Lactic Acid Calcium Phosphorus Magnesium AST ALT Troponin T C-Reactive Protein Total Protein Albumin Arterial Blood Glucose 117 H Arterial Blood Ionized Calcium 4.4 L Urine WBC (Auto) Urine Creatinine 08/27/20 08/27/20 08/27/20 07:24 07:24 11:08 WBC 12.7 H RBC 2.92 L Hgb 8.1 L Hct 24.4 L MCH RDW 15.4 H Lymph % (Auto) 5.9 L Lymph # (Auto) 0.8 L Seg Neutrophils % 86.9 H Seg Neuts % (Manual) Lymphocytes % (Manual) Seg Neutrophils # 11.0 H Seg Neutrophils # Man Lymphocytes # (Manual) D-Dimer ABG pH POC ABG pO2 ABG pO2 ABG HCO3 ABG Hemoglobin ABG Oxyhemoglobin ABG Sodium ABG Potassium ABG Glucose Oxyhemoglobin Carboxyhemoglobin Sodium Potassium Chloride Carbon Dioxide BUN 60 H Creatinine 3.6 H Glucose 135 H POC Glucose 139 H Lactic Acid Calcium Phosphorus Magnesium AST ALT Troponin T C-Reactive Protein Total Protein 5.3 L Albumin 2.6 L Arterial Blood Glucose Arterial Blood Ionized Calcium Urine WBC (Auto) Urine Creatinine 08/27/20 08/27/20 08/27/20 11:19 17:31 23:25 WBC RBC Hgb Hct MCH RDW Lymph % (Auto) Lymph # (Auto) Seg Neutrophils % Seg Neuts % (Manual) Lymphocytes % (Manual) Seg Neutrophils # Seg Neutrophils # Man Lymphocytes # (Manual) D-Dimer ABG pH POC ABG pO2 ABG pO2 ABG HCO3 ABG Hemoglobin ABG Oxyhemoglobin ABG Sodium ABG Potassium ABG Glucose Oxyhemoglobin Carboxyhemoglobin Sodium Potassium Chloride Carbon Dioxide BUN Creatinine Glucose POC Glucose 143 H 140 H 123 H Lactic Acid Calcium Phosphorus Magnesium AST ALT Troponin T C-Reactive Protein Total Protein Albumin Arterial Blood Glucose Arterial Blood Ionized Calcium Urine WBC (Auto) Urine Creatinine 08/28/20 08/28/20 08/28/20 03:50 04:19 04:19 WBC RBC 2.80 L Hgb 7.8 L Hct 23.6 L MCH RDW 15.8 H Lymph % (Auto) Lymph # (Auto) Seg Neutrophils % Seg Neuts % (Manual) Lymphocytes % (Manual) Seg Neutrophils # Seg Neutrophils # Man Lymphocytes # (Manual) D-Dimer ABG pH 7.329 L POC ABG pO2 ABG pO2 76.7 L ABG HCO3 27.0 H ABG Hemoglobin 7.5 L ABG Oxyhemoglobin ABG Sodium ABG Potassium ABG Glucose Oxyhemoglobin 93.6 L Carboxyhemoglobin Sodium 135 L Potassium Chloride Carbon Dioxide BUN 64 H Creatinine 3.8 H Glucose 143 H POC Glucose Lactic Acid Calcium 8.0 L Phosphorus Magnesium AST ALT Troponin T C-Reactive Protein Total Protein 4.8 L Albumin 2.4 L Arterial Blood Glucose Arterial Blood Ionized Calcium Urine WBC (Auto) Urine Creatinine 08/28/20 08/28/20 08/28/20 05:35 11:22 17:18 WBC RBC Hgb Hct MCH RDW Lymph % (Auto) Lymph # (Auto) Seg Neutrophils % Seg Neuts % (Manual) Lymphocytes % (Manual) Seg Neutrophils # Seg Neutrophils # Man Lymphocytes # (Manual) D-Dimer ABG pH POC ABG pO2 ABG pO2 ABG HCO3 ABG Hemoglobin ABG Oxyhemoglobin ABG Sodium ABG Potassium ABG Glucose Oxyhemoglobin Carboxyhemoglobin Sodium Potassium Chloride Carbon Dioxide BUN Creatinine Glucose POC Glucose 147 H 182 H 216 H Lactic Acid Calcium Phosphorus Magnesium AST ALT Troponin T C-Reactive Protein Total Protein Albumin Arterial Blood Glucose Arterial Blood Ionized Calcium Urine WBC (Auto) Urine Creatinine 08/28/20 08/28/20 08/29/20 21:04 23:20 04:32 WBC RBC Hgb Hct MCH RDW Lymph % (Auto) Lymph # (Auto) Seg Neutrophils % Seg Neuts % (Manual) Lymphocytes % (Manual) Seg Neutrophils # Seg Neutrophils # Man Lymphocytes # (Manual) D-Dimer ABG pH POC ABG pO2 ABG pO2 ABG HCO3 ABG Hemoglobin ABG Oxyhemoglobin ABG Sodium ABG Potassium ABG Glucose Oxyhemoglobin Carboxyhemoglobin Sodium 135 L Potassium Chloride 96.0 L Carbon Dioxide BUN 67 H Creatinine 3.8 H Glucose 200 H POC Glucose 204 H 242 H Lactic Acid Calcium 8.2 L Phosphorus Magnesium AST ALT Troponin T C-Reactive Protein Total Protein Albumin Arterial Blood Glucose Arterial Blood Ionized Calcium Urine WBC (Auto) Urine Creatinine 08/29/20 08/29/20 08/29/20 04:32 04:50 04:59 WBC RBC 3.25 L Hgb 9.0 L Hct 27.0 L MCH RDW 16.1 H Lymph % (Auto) Lymph # (Auto) Seg Neutrophils % Seg Neuts % (Manual) Lymphocytes % (Manual) Seg Neutrophils # Seg Neutrophils # Man Lymphocytes # (Manual) D-Dimer ABG pH POC ABG pO2 ABG pO2 ABG HCO3 ABG Hemoglobin 8.8 L ABG Oxyhemoglobin ABG Sodium ABG Potassium ABG Glucose Oxyhemoglobin Carboxyhemoglobin Sodium Potassium Chloride Carbon Dioxide BUN Creatinine Glucose POC Glucose 201 H Lactic Acid Calcium Phosphorus Magnesium AST ALT Troponin T C-Reactive Protein Total Protein Albumin Arterial Blood Glucose Arterial Blood Ionized Calcium Urine WBC (Auto) Urine Creatinine 08/29/20 08/29/20 08/29/20 11:10 11:28 17:50 WBC RBC Hgb Hct MCH RDW Lymph % (Auto) Lymph # (Auto) Seg Neutrophils % Seg Neuts % (Manual) Lymphocytes % (Manual) Seg Neutrophils # Seg Neutrophils # Man Lymphocytes # (Manual) D-Dimer ABG pH POC ABG pO2 ABG pO2 78.7 L ABG HCO3 26.6 H ABG Hemoglobin 9.8 L ABG Oxyhemoglobin ABG Sodium ABG Potassium ABG Glucose Oxyhemoglobin 94.3 L Carboxyhemoglobin Sodium Potassium Chloride Carbon Dioxide BUN Creatinine Glucose POC Glucose 219 H 203 H Lactic Acid Calcium Phosphorus Magnesium AST ALT Troponin T C-Reactive Protein Total Protein Albumin Arterial Blood Glucose Arterial Blood Ionized Calcium Urine WBC (Auto) Urine Creatinine 08/29/20 08/29/20 08/30/20 21:31 23:28 04:14 WBC RBC Hgb Hct MCH RDW Lymph % (Auto) Lymph # (Auto) Seg Neutrophils % Seg Neuts % (Manual) Lymphocytes % (Manual) Seg Neutrophils # Seg Neutrophils # Man Lymphocytes # (Manual) D-Dimer ABG pH POC ABG pO2 ABG pO2 ABG HCO3 ABG Hemoglobin ABG Oxyhemoglobin ABG Sodium ABG Potassium ABG Glucose Oxyhemoglobin Carboxyhemoglobin Sodium 132 L Potassium Chloride 94.8 L Carbon Dioxide BUN 68 H Creatinine 3.7 H Glucose 214 H POC Glucose 204 H 215 H Lactic Acid Calcium Phosphorus Magnesium AST ALT Troponin T C-Reactive Protein Total Protein Albumin Arterial Blood Glucose Arterial Blood Ionized Calcium Urine WBC (Auto) Urine Creatinine 08/30/20 08/30/20 08/30/20 05:10 11:33 17:32 WBC RBC Hgb Hct MCH RDW Lymph % (Auto) Lymph # (Auto) Seg Neutrophils % Seg Neuts % (Manual) Lymphocytes % (Manual) Seg Neutrophils # Seg Neutrophils # Man Lymphocytes # (Manual) D-Dimer ABG pH POC ABG pO2 ABG pO2 ABG HCO3 ABG Hemoglobin ABG Oxyhemoglobin ABG Sodium ABG Potassium ABG Glucose Oxyhemoglobin Carboxyhemoglobin Sodium Potassium Chloride Carbon Dioxide BUN Creatinine Glucose POC Glucose 210 H 194 H 202 H Lactic Acid Calcium Phosphorus Magnesium AST ALT Troponin T C-Reactive Protein Total Protein Albumin Arterial Blood Glucose Arterial Blood Ionized Calcium Urine WBC (Auto) Urine Creatinine 08/30/20 08/30/20 08/30/20 21:39 23:21 Unknown WBC RBC Hgb Hct MCH RDW Lymph % (Auto) Lymph # (Auto) Seg Neutrophils % Seg Neuts % (Manual) Lymphocytes % (Manual) Seg Neutrophils # Seg Neutrophils # Man Lymphocytes # (Manual) D-Dimer ABG pH POC ABG pO2 ABG pO2 99.0 H ABG HCO3 ABG Hemoglobin 9.8 L ABG Oxyhemoglobin ABG Sodium ABG Potassium ABG Glucose Oxyhemoglobin Carboxyhemoglobin Sodium Potassium Chloride Carbon Dioxide BUN Creatinine Glucose POC Glucose 199 H 209 H Lactic Acid Calcium Phosphorus Magnesium AST ALT Troponin T C-Reactive Protein Total Protein Albumin Arterial Blood Glucose Arterial Blood Ionized Calcium Urine WBC (Auto) Urine Creatinine 08/31/20 08/31/20 08/31/20 04:10 05:19 10:57 WBC RBC Hgb Hct MCH RDW Lymph % (Auto) Lymph # (Auto) Seg Neutrophils % Seg Neuts % (Manual) Lymphocytes % (Manual) Seg Neutrophils # Seg Neutrophils # Man Lymphocytes # (Manual) D-Dimer ABG pH 7.451 H POC ABG pO2 ABG pO2 99.6 H ABG HCO3 ABG Hemoglobin 8.4 L ABG Oxyhemoglobin ABG Sodium ABG Potassium ABG Glucose Oxyhemoglobin Carboxyhemoglobin Sodium 133 L Potassium Chloride 96.4 L Carbon Dioxide BUN 74 H Creatinine 3.8 H Glucose 201 H POC Glucose 182 H Lactic Acid Calcium 7.6 L Phosphorus Magnesium AST ALT Troponin T C-Reactive Protein Total Protein Albumin Arterial Blood Glucose Arterial Blood Ionized Calcium Urine WBC (Auto) Urine Creatinine 08/31/20 08/31/20 08/31/20 10:57 12:32 17:15 WBC 11.4 H RBC 3.24 L Hgb 8.5 L Hct 26.6 L MCH 26 L RDW 15.6 H Lymph % (Auto) Lymph # (Auto) Seg Neutrophils % Seg Neuts % (Manual) Lymphocytes % (Manual) Seg Neutrophils # Seg Neutrophils # Man Lymphocytes # (Manual) D-Dimer ABG pH POC ABG pO2 ABG pO2 ABG HCO3 ABG Hemoglobin ABG Oxyhemoglobin ABG Sodium ABG Potassium ABG Glucose Oxyhemoglobin Carboxyhemoglobin Sodium Potassium Chloride Carbon Dioxide BUN Creatinine Glucose POC Glucose 217 H 203 H Lactic Acid Calcium Phosphorus Magnesium AST ALT Troponin T C-Reactive Protein Total Protein Albumin Arterial Blood Glucose Arterial Blood Ionized Calcium Urine WBC (Auto) Urine Creatinine 09/01/20 09/01/20 09/01/20 00:06 05:05 09:41 WBC RBC Hgb Hct MCH RDW Lymph % (Auto) Lymph # (Auto) Seg Neutrophils % Seg Neuts % (Manual) Lymphocytes % (Manual) Seg Neutrophils # Seg Neutrophils # Man Lymphocytes # (Manual) D-Dimer ABG pH POC ABG pO2 ABG pO2 ABG HCO3 ABG Hemoglobin ABG Oxyhemoglobin ABG Sodium ABG Potassium ABG Glucose Oxyhemoglobin Carboxyhemoglobin Sodium 134 L Potassium Chloride 95.2 L Carbon Dioxide BUN 81 H Creatinine 3.7 H Glucose 201 H POC Glucose 223 H 225 H Lactic Acid Calcium Phosphorus 4.60 H Magnesium 2.40 H AST ALT Troponin T C-Reactive Protein Total Protein Albumin Arterial Blood Glucose Arterial Blood Ionized Calcium Urine WBC (Auto) Urine Creatinine 09/01/20 09/01/20 09/01/20 09:41 12:51 13:08 WBC 11.5 H RBC 3.58 L Hgb 9.2 L Hct 29.7 L MCH 26 L RDW 16.0 H Lymph % (Auto) Lymph # (Auto) Seg Neutrophils % Seg Neuts % (Manual) Lymphocytes % (Manual) Seg Neutrophils # Seg Neutrophils # Man Lymphocytes # (Manual) D-Dimer ABG pH 7.462 H POC ABG pO2 ABG pO2 ABG HCO3 ABG Hemoglobin 9.5 L ABG Oxyhemoglobin ABG Sodium 130.4 L ABG Potassium ABG Glucose 208 H Oxyhemoglobin Carboxyhemoglobin 0.4 L Sodium Potassium Chloride Carbon Dioxide BUN Creatinine Glucose POC Glucose 182 H Lactic Acid Calcium Phosphorus Magnesium AST ALT Troponin T C-Reactive Protein Total Protein Albumin Arterial Blood Glucose 208 H Arterial Blood Ionized Calcium 4.5 L Urine WBC (Auto) Urine Creatinine 09/01/20 09/01/20 09/02/20 18:34 23:14 05:22 WBC RBC Hgb Hct MCH RDW Lymph % (Auto) Lymph # (Auto) Seg Neutrophils % Seg Neuts % (Manual) Lymphocytes % (Manual) Seg Neutrophils # Seg Neutrophils # Man Lymphocytes # (Manual) D-Dimer ABG pH POC ABG pO2 ABG pO2 ABG HCO3 ABG Hemoglobin ABG Oxyhemoglobin ABG Sodium ABG Potassium ABG Glucose Oxyhemoglobin Carboxyhemoglobin Sodium Potassium Chloride Carbon Dioxide BUN Creatinine Glucose POC Glucose 183 H 181 H 178 H Lactic Acid Calcium Phosphorus Magnesium AST ALT Troponin T C-Reactive Protein Total Protein Albumin Arterial Blood Glucose Arterial Blood Ionized Calcium Urine WBC (Auto) Urine Creatinine 09/02/20 09/02/20 07:35 11:16 WBC RBC Hgb Hct MCH RDW Lymph % (Auto) Lymph # (Auto) Seg Neutrophils % Seg Neuts % (Manual) Lymphocytes % (Manual) Seg Neutrophils # Seg Neutrophils # Man Lymphocytes # (Manual) D-Dimer ABG pH POC ABG pO2 ABG pO2 ABG HCO3 ABG Hemoglobin ABG Oxyhemoglobin ABG Sodium ABG Potassium ABG Glucose Oxyhemoglobin Carboxyhemoglobin Sodium 135 L Potassium Chloride 96.0 L Carbon Dioxide BUN 88 H Creatinine 3.7 H Glucose 187 H POC Glucose 228 H Lactic Acid Calcium Phosphorus Magnesium AST ALT Troponin T C-Reactive Protein Total Protein Albumin Arterial Blood Glucose Arterial Blood Ionized Calcium Urine WBC (Auto) Urine Creatinine Chest x-ray: report reviewed, image reviewed Additional Studies: CHEST 1 VIEW 09/01/20 INDICATION / CLINICAL INFORMATION: follow up respiratory failure. FINDINGS: SUPPORT DEVICES: The endotracheal tube and esophagogastric tube both project in expected position.. HEART / MEDIASTINUM: No significant abnormality. LUNGS / PLEURA: Severe bilateral airspace disease present. This has slightly worsened from yesterday's exam. Allied health notes reviewed: nursing
[2020-09-02] MEDS: INSULIN GLARGINE 100 UNITS/ML SUB-Q SCH (21:44)
[2020-09-03] MEDS: INSULIN LISPRO 100 UNIT/ML SUB-Q SCH ×4 (00:49→17:13)
[2020-09-03] MEDS: hydrALAZINE 25 MG TAB PO SCH ×3 (06:30→21:21)
[2020-09-03 09:29] LABS: Hematocrit 22.7 % (30.3-42.9); Hemoglobin 7.8 gm/dl (10.1-14.3); Mean Corpuscular HGB Conc 35 % (30-34); Mean Corpuscular Volume 81 fl (79-97); Platelet Count 277 K/mm3 (140-440); Red Cell Distribution Width 15.3 % (13.2-15.2)
[2020-09-03 09:44] LABS: BUN/Creatinine Ratio 26
[2020-09-03] MEDS ORDERED: LORazepam 2 MG/ML VIAL IV ONE ×2 (10:00→15:13)
[2020-09-03 10:24] LABS: Blood Urea Nitrogen 96 mg/dL (7-17); Calcium 8.1 mg/dL (8.4-10.2)
[2020-09-03] MEDS: levETIRAcetam 500 MG/5 ML ORAL LIQD PO SCH ×2 (10:29→21:21)
[2020-09-03] MEDS: LACOSAMIDE 100 MG TAB PO SCH ×2 (10:29→21:22)
[2020-09-03] MEDS: FAMOTIDINE 20 MG TAB PO SCH (10:30)
[2020-09-03] MEDS: HEPARIN 5,000 UNIT/1 ML VIAL SUB-Q SCH ×2 (10:30→21:21)
[2020-09-03] MEDS: ASPIRIN 81 MG TAB CHEW PO SCH (10:30)
[2020-09-03] MEDS: SENNOSIDES/DOCUSATE SODIUM 8.6/50 MG TAB FEEDTUBE SCH ×2 (10:30→21:23)
[2020-09-03] MEDS: METOPROLOL TARTRATE 25 MG TAB PO SCH ×2 (10:31→21:22)
[2020-09-03] MEDS: amLODIPine 5 MG TAB PO SCH (10:31)
[2020-09-03] MEDS: TAMSULOSIN 0.4 MG CAP PO SCH (10:35)
[2020-09-03] MEDS: FUROSEMIDE 40 MG/4 ML INJ IV SCH ×2 (13:36→17:13)
--- NOTE | 2020-09-03 14:07 | Progress Note ---
Assessment and Plan Assessment and plan: This is a 75-year-old female with CHF, OHS DM, CKD, morbid obesity, GERD, hypertension, chronic respiratory failure admitted s/p cardiac arrest NEURO Anoxic encephalopathy -Neurology consulted, appreciate recommendations -08/25 [address] head shows no CT evidence of acute abnormality -08/28 MRI brain without contrast shows abnormal diffusion and FLAIR signal abnormality which may suggest hypoxic/ischemic brain injury, hypoglycemic encephalopathy and perhaps Creutsfeldt-Cornelius disease otherwise no focal mass, hemorrhage or hydrocephalus seen -08/30 EEG- results pending Seizure -Keppra increased to 1000 mg BID , vimpat, Ativan as needed for facial twitching -Seizure/aspiration precautions -per neuro prognosis poor based on MRI -NO mind altering medications - to allow for neuro assessment and brain function -opens eyes spontaneously ; pupils not reactive to light; neg threat; pos cough; withdrawal on right to deep pain; no response to deep pain on left Pt has 8 living children- updated on plan of care Case Management following if decision is not made by family in 48 hours we will order trach/Peg Friday (09/04) CV SR S/p cardiac arrest with prolonged down time- see ER note -ddimer elevated on admit following cardiac arrest -Cardiology has seen and signed off- call if needed -08/25 echocardiogram shows LVEF 40 to 45%, LV normal size, LV systolic function mildly decreased, mild diastolic dysfunction, mildly dilated right ventricle, pulmonary hypertension RVSP 45 mmHg -asa and statin Hypertension -home norvasc , hydral added -Blood pressure monitoring per protocol -IV hydralazine as needed RESP Acute hypoxic respiratory failure -Chronic respiratory insufficiency at home with 3 L oxygen via nasal cannula -remains intubated and ventilated on cpap this AM -Wean as tolerated; trend pulse ox -CCM following -VAP bundle -nebs as needed Multifocal pneumonia/ ? aspiration event -08/25 CXR shows worsening patchy bilateral pulmonary opacities -08/25 CTA chest shows no evidence of pulmonary embolism, bilateral pulmonary processes with large bilateral pleural effusions, pneumonia is a concern, pulmonary edema could be a similar appearance versus pulmonary edema GI Protein Calorie Malnutrition TF per nutrition bowel reg. FLORIDALMA on CKD secondary to patient under nephropathy -Nephrology consulted, patient recommendations -Daily weights -Avoid nephrotoxic medications; avoid NITIN/ARB -bladder scan with high residuals requiring frequent intermittent caths so foreman replaced at 1230 -trend and replace electrolytes as needed -Trend Cr Urinary retention -Foreman replaced 08/31 for urinary retention HEME Anemia -Admit H/H 8.6/27.8 -Transfuse for hemoglobin less than 7 -Trend CBC VTE prophylaxis with SCD and SQH ID Pneumonia -trend WBC and temp curve -afebrile -trend cultures -covid neg on admit ENDO Diabetes mellitus -SSI -Lantus, increase as needed -Accu-Cheks every 6h -avoid hypoglycemia -hx obesity DVT/GI prophylaxis: SCDs to bilateral lower extremities heparin subcu, PPI Disposition: ICU, need to discuss with family plan of care Lines: PIV; foreman The high probability of a clinically significant, sudden or life threatening deterioration of the [cardiac, pulmonary, neuro, renal, infectious disease] system(s) required my full and direct attention, intervention and personal management. The aggregate critical care time was [35] minutes. This time is in addition to time spent performing reported procedures but includes the following: [x] Data Review and interpretation [x] Patient assessment and monitoring of vital signs [x] Documentation [x] Medication orders and management History Interval history: This is a 69-year-old female with OHS, DM, CKD stage IV, morbid obesity CHF, GERD, HTN, chronic respiratory failure on 3 L of home oxygen via nasal cannula who presented to the emergency department on 08/25 after being found down unresponsive at 0950 hours by family and upon EMS arrival she was unresponsive and asystolic arrest. Patient was treated with ACLS protocol with eventual ROSC after at least 15 minutes of ACLS and patient was transported to [facility]. In the emergency department patient was found to have acute hypoxic respiratory failure and subsequently intubated on vasopressor support, she underwent a CXR which showed bilateral pneumonia and exam is consistent with SIRS. CCM and cardiology were consulted and patient was admitted to the hospital service with acute hypoxic respiratory failure, anoxic encephalopathy, s/p cardiac arrest, multifocal pneumonia, FLORIDALMA on CKD. 08/26/20 patient is seen and examined. Patient is on vent. WBC 17.9 and hemoglobin 8.3 hematocrit 25.6. Patient may have 1 episode of questionable seizure. Patient BUN is 56 creatinine 3.4. Will consult nephrology. We also start the patient on Rocephin 2 g IV daily and Zithromax. Aspirin 81 mg p.o. daily and Lipitor. Patient is having echocardiogram. Cardiology and critical care will see the patient as consult tension. Continue current management. We have started on NG tube feeding and consult nutrition for evaluation. Recheck CBC BMP in the morning. Case discussed with daughter Leena [phone] 08/27: Patient remains on full ventilatory support, considering concern for seizure yesterday under the circumstance of out of hospital cardiac arrest, and concern for anoxic encephalopathy, will proceed with Neurology consultation. 08/28: At the time my examination patient sedation of propofol 30 and fentanyl 1 was being held and she was on CMV tidal and 450, rate of 18, PEEP of 6 and FiO2 of 35%. Neurology was consulted. I updated the patient's daughter Leena Payton at bedside and told her of the pending tests the neurologist has ordered. 08/29: Increase in Lantus due to persistent hypoglycemia, chest ultrasound ordered for possible thoracentesis by [facility], MRI brain pending. Remove Foreman cat heter if okay with nephrology. Increase in beta-skylar by [facility] however cardiology decreased hydralazine per neurology recommendations. At the time my examination patient was on CPAP trial pressure support of 12, PEEP of 6 and 35% FiO2. RT obtain an ABG we will continue CPAP as tolerated. 08/28: No acute events overnight. Noted to have seizure, addition of vimpat 08/29: Chest US noted to have pleural effusions, cxr shows pulmonary edema, nephro ordered lasix x1. CCM and nephro had conversation son at bedside. Surgery consulted for trach/peg. [facility] plans for IR thora if family decides aggressive care 08/30 No acute overnight events 08/31: given 80mg lasix by nephro, increase in lantus, Dulcolax suppository given for no recorded BM for 5 to 6 days 09/01: Patient did not have a further response to 80 mg of Lasix yesterday, no acute events reported overnight, patient is having several loose BMs 09/02: Patient was having facial twitching this morning, 1 mg of Ativan was given to the patient, Keppra was increased. No family at the bedside. Hospitalist Physical - Physical exam Narrative exam: General appearance: no acute distress, well-nourished Respiratory: Intubated, crackles and rales heard bilaterally Cardiovascular: Regular rate/rhythm, Normal S1 & S2. No gallop, rub Extremities: no ischemia, No edema, normal temperature, normal color, Full ROM Abdominal: soft, no tenderness, non-distended, normal bowel sounds Integumentary: Present: clear, warm, dry no wounds, no erythema noted Neurologic: Twitching in left side of face, no movement of upper or lower extremities, patient obtunded - Constitutional Vitals: Temp Pulse Resp BP Pulse Ox 98.3 F 83 24 151/63 98 09/03/20 12:00 09/03/20 13:36 09/03/20 13:31 09/03/20 13:36 09/03/20 13:31 HEART Score - HEART Score Troponin: Troponin T 0.057 ng/mL (0.00-0.029) H 08/25/20 11:23 Results - Labs CBC & Chem 7: 09/03/20 08:31 09/03/20 08:31 Labs: Laboratory Last Values WBC 18.5 K/mm3 (4.5-11.0) H 09/03/20 08:31 RBC 2.80 M/mm3 (3.65-5.03) L 09/03/20 08:31 Hgb 7.8 gm/dl (10.1-14.3) L 09/03/20 08:31 Hct 22.7 % (30.3-42.9) L D 09/03/20 08:31 MCV 81 fl (79-97) 09/03/20 08:31 MCH 28 pg (28-32) 09/03/20 08:31 MCHC 35 % (30-34) H 09/03/20 08:31 RDW 15.3 % (13.2-15.2) H 09/03/20 08:31 Plt Count 277 K/mm3 (140-440) 09/03/20 08:31 Lymph % (Auto) 5.9 % (13.4-35.0) L 08/27/20 07:24 [place] % (Auto) 4.6 % (0.0-7.3) 08/27/20 07:24 Eos % (Auto) 2.2 % (0.0-4.3) 08/27/20 07:24 Baso % (Auto) 0.4 % (0.0-1.8) 08/27/20 07:24 Lymph # (Auto) 0.8 K/mm3 (1.2-5.4) L 08/27/20 07:24 [place] # (Auto) 0.6 K/mm3 (0.0-0.8) 08/27/20 07:24 Eos # (Auto) 0.3 K/mm3 (0.0-0.4) 08/27/20 07:24 Baso # (Auto) 0.0 K/mm3 (0.0-0.1) 08/27/20 07:24 Add Manual Diff Complete 08/26/20 05:04 Total Counted 100 08/26/20 05:04 Seg Neutrophils % 86.9 % (40.0-70.0) H 08/27/20 07:24 Seg Neuts % (Manual) 96.0 % (40.0-70.0) H 08/26/20 05:04 Band Neutrophils % 2.0 % 08/25/20 11:23 Lymphocytes % (Manual) 1.0 % (13.4-35.0) L 08/26/20 05:04 Monocytes % (Manual) 3.0 % (0.0-7.3) 08/26/20 05:04 Eosinophils % (Manual) 3.0 % (0.0-4.3) 08/25/20 11:23 Metamyelocytes % 1.0 % 08/25/20 11:23 Nucleated RBC % Not Reportable 08/26/20 05:04 Seg Neutrophils # 11.0 K/mm3 (1.8-7.7) H 08/27/20 07:24 Seg Neutrophils # Man 17.2 K/mm3 (1.8-7.7) H 08/26/20 05:04 Band Neutrophils # 0.0 K/mm3 08/26/20 05:04 Lymphocytes # (Manual) 0.2 K/mm3 (1.2-5.4) L 08/26/20 05:04 Abs React Lymphs (Man) 0.0 K/mm3 08/26/20 05:04 Monocytes # (Manual) 0.5 K/mm3 (0.0-0.8) 08/26/20 05:04 Eosinophils # (Manual) 0.0 K/mm3 (0.0-0.4) 08/26/20 05:04 Basophils # (Manual) 0.0 K/mm3 (0.0-0.1) 08/26/20 05:04 Metamyelocytes # 0.0 K/mm3 08/26/20 05:04 Myelocytes # 0.0 K/mm3 08/26/20 05:04 Promyelocytes # 0.0 K/mm3 08/26/20 05:04 Blast Cells # 0.0 K/mm3 08/26/20 05:04 WBC Morphology Not Reportable 08/26/20 05:04 Hypersegmented Neuts Not Reportable 08/26/20 05:04 Hyposegmented Neuts Not Reportable 08/26/20 05:04 Hypogranular Neuts Not Reportable 08/26/20 05:04 Smudge Cells Not Reportable 08/26/20 05:04 Toxic Granulation Not Reportable 08/26/20 05:04 Toxic Vacuolation Not Reportable 08/26/20 05:04 Dohle Bodies Not Reportable 08/26/20 05:04 Pelger-Huet Anomaly Not Reportable 08/26/20 05:04 Jannette Rods Not Reportable 08/26/20 05:04 Platelet Estimate Consistent w auto 08/26/20 05:04 Clumped Platelets Not Reportable 08/26/20 05:04 Plt Clumps, EDTA Not Reportable 08/26/20 05:04 Large Platelets Not Reportable 08/26/20 05:04 Giant Platelets Not Reportable 08/26/20 05:04 Platelet Satelliting Not Reportable 08/26/20 05:04 Plt Morphology Comment Not Reportable 08/26/20 05:04 RBC Morphology Not Reportable 08/26/20 05:04 Dimorphic RBCs Not Reportable 08/26/20 05:04 Polychromasia Not Reportable 08/26/20 05:04 Hypochromasia Not Reportable 08/26/20 05:04 Poikilocytosis Not Reportable 08/26/20 05:04 Anisocytosis 1+ 08/26/20 05:04 Microcytosis Not Reportable 08/26/20 05:04 Macrocytosis Not Reportable 08/26/20 05:04 Spherocytes Not Reportable 08/26/20 05:04 Pappenheimer Bodies Not Reportable 08/26/20 05:04 Sickle Cells Not Reportable 08/26/20 05:04 Target Cells Not Reportable 08/26/20 05:04 Tear Drop Cells Not Reportable 08/26/20 05:04 Ovalocytes Not Reportable 08/26/20 05:04 Helmet Cells Not Reportable 08/26/20 05:04 [place] Bodies Not Reportable 08/26/20 05:04 [place] Rings Not Reportable 08/26/20 05:04 [place] Cells Not Reportable 08/26/20 05:04 Bite Cells Not Reportable 08/26/20 05:04 Crenated Cell Not Reportable 08/26/20 05:04 Elliptocytes Not Reportable 08/26/20 05:04 Acanthocytes (Spur) Not Reportable 08/26/20 05:04 Rouleaux Not Reportable 08/26/20 05:04 Hemoglobin C Crystals Not Reportable 08/26/20 05:04 Schistocytes Not Reportable 08/26/20 05:04 Malaria parasites Not Reportable 08/26/20 05:04 Shabbir Bodies Not Reportable 08/26/20 05:04 Hem Pathologist Commnt No 08/26/20 05:04 D-Dimer > 36090 ng/mlDDU (0-234) H 08/25/20 11:23 ABG pH 7.462 (7.320-7.450) H 09/01/20 12:51 POC ABG pCO2 39.5 mmHg (32.0-48.0) 09/01/20 12:51 ABG pCO2 36.6 mm Hg 08/31/20 04:10 POC ABG pO2 102.7 mmHg (83-108) 09/01/20 12:51 ABG pO2 99.6 mm Hg (80.0-90.0) H 08/31/20 04:10 POC ABG HCO3 27.6 09/01/20 12:51 ABG HCO3 24.9 mmol/L (20.0-26.0) 08/31/20 04:10 ABG O2 Saturation 98.0 (0-100) 09/01/20 12:51 ABG O2 Content 11.6 (0.0-44) 08/31/20 04:10 POC ABG Base Excess 3.6 09/01/20 12:51 ABG Base Excess 1.0 mmol/L (-2.0-3.0) 08/31/20 04:10 ABG Hemoglobin 9.5 (12.0-17.5) L 09/01/20 12:51 ABG Oxyhemoglobin 97.3 (94-98) 09/01/20 12:51 ABG Carboxyhemoglobin 1.4 % (0.0-5.0) 08/31/20 04:10 ABG Methemoglobin 0.3 (0.0-1.5) 09/01/20 12:51 ABG Sodium 130.4 mmol/L (136.0-145.0) L 09/01/20 12:51 ABG Potassium 3.4 mmol/L (3.40-4.50) 09/01/20 12:51 ABG Chloride 98.0 mmol/L (98-107) 09/01/20 12:51 ABG Glucose 208 mg/dL (65-95) H 09/01/20 12:51 Oxyhemoglobin 95.9 % (95.0-99.0) 08/31/20 04:10 Carboxyhemoglobin 0.4 (0.5-1.5) L 09/01/20 12:51 FiO2 30 % 08/31/20 04:10 FiO2 % 30.0 09/01/20 12:51 Sodium 134 mmol/L (137-145) L 09/03/20 08:31 Potassium 3.6 mmol/L (3.6-5.0) 09/03/20 08:31 Chloride 96.6 mmol/L (98-107) L 09/03/20 08:31 Carbon Dioxide 24 mmol/L (22-30) 09/03/20 08:31 Anion Gap 17 mmol/L 09/03/20 08:31 BUN 96 mg/dL (7-17) H 09/03/20 08:31 Creatinine 3.7 mg/dL (0.6-1.2) H 09/03/20 08:31 Estimated GFR 12 ml/min 09/03/20 08:31 BUN/Creatinine Ratio 26 % 09/03/20 08:31 Glucose 190 mg/dL (65-100) H 09/03/20 08:31 POC Glucose 156 mg/dL (70-105) H 09/03/20 12:02 Lactic Acid 1.80 mmol/L (0.7-2.0) 08/25/20 12:45 Calcium 8.1 mg/dL (8.4-10.2) L 09/03/20 08:31 Phosphorus 4.60 mg/dL (2.5-4.5) H 09/01/20 09:41 Magnesium 2.40 mg/dL (1.7-2.3) H 09/01/20 09:41 Total Bilirubin < 0.20 mg/dL (0.1-1.2) 08/28/20 04:19 AST 37 units/L (5-40) 08/28/20 04:19 ALT 27 units/L (7-56) 08/28/20 04:19 Alkaline Phosphatase 84 units/L (35-129) 08/28/20 04:19 Troponin T 0.057 ng/mL (0.00-0.029) H 08/25/20 11:23 C-Reactive Protein 7.80 mg/dL (0.00-1.30) H 08/26/20 18:50 Total Protein 4.8 g/dL (6.3-8.2) L 08/28/20 04:19 Albumin 2.4 g/dL (3.9-5) L 08/28/20 04:19 Albumin/Globulin Ratio 1.0 % 08/28/20 04:19 Triglycerides 111 mg/dL (2-149) 08/29/20 04:32 Cholesterol 158 mg/dL (50-199) 08/25/20 11:23 LDL Cholesterol Direct 101 mg/dL (50-130) 08/25/20 11:23 HDL Cholesterol 50 mg/dL (40-59) 08/25/20 11:23 Cholesterol/HDL Ratio 3.16 % 08/25/20 11:23 Procalcitonin 0.41 ng/mL (<0.15) 08/26/20 18:50 Arterial Blood Glucose 208 mg/dL (65-95) H 09/01/20 12:51 Arterial Blood Ionized Calcium 4.5 mg/dL (4.6-5.3) L 09/01/20 12:51 Urine Color Yellow (Yellow) 08/25/20 11:17 Urine Turbidity Cloudy (Clear) 08/25/20 11:17 Urine pH 7.0 (5.0-7.0) 08/25/20 11:17 Ur Specific [place] 1.012 (1.003-1.030) 08/25/20 11:17 Urine Protein >500 mg/dL (Negative) 08/25/20 11:17 Urine Glucose (UA) >=500 mg/dL (Negative) 08/25/20 11:17 Urine Ketones Neg mg/dL (Negative) 08/25/20 11:17 Urine Blood Sm (Negative) 08/25/20 11:17 Urine Nitrite Neg (Negative) 08/25/20 11:17 Urine Bilirubin Neg (Negative) 08/25/20 11:17 Urine Urobilinogen < 2.0 mg/dL (<2.0) 08/25/20 11:17 Ur Leukocyte Esterase Neg (Negative) 08/25/20 11:17 Urine WBC (Auto) 31.0 /HPF (0.0-6.0) H 08/25/20 11:17 Urine RBC (Auto) 28.0 /HPF (0.0-6.0) 08/25/20 11:17 U Epithel Cells (Auto) 5.0 /HPF (0-13.0) 08/25/20 11:17 Urine Bacteria (Auto) 1+ /HPF (Negative) 08/25/20 11:17 Urine WBC Clumps Few /HPF 08/25/20 11:17 Ur Renal Epithelial Cell 4 /LPF 08/25/20 11:17 Hyaline Casts 28 /LPF 08/25/20 11:17 Urine Creatinine 67.4 mg/dL (0.1-20.0) H 08/26/20 17:00 Urine Sodium 12 mmol/L 08/26/20 17:00 Coronavirus (PCR) Negative (Negative) 08/26/20 Unknown Foreman/IV: Voiding Method Indwelling Catheter Active Medications - Current Medications Current Medications: Generic Name Dose Route Start Last Admin Trade Name Freq PRN Reason Stop Dose Admin Albuterol 2.5 mg 08/25/20 14:55 Albuterol 2.5 Mg/3 Ml Nebu IH Q3HRT PRN Shortness Of Breath Amlodipine Besylate 5 mg 08/28/20 10:00 09/03/20 10:31 Amlodipine 5 Mg Tab PO 5 mg QDAY TERA Administration Lipase/Protease/Amylase 1 each 08/26/20 12:15 Lipase 10,500/Protease 25,000/Amylase 43,750 (Units) Dr Gu FEEDTUBE PRN PRN For Clogged Feeding Tube Aspirin 81 mg 08/27/20 10:00 09/03/20 10:30 Aspirin 81 Mg Tab Chew PO 81 mg QDAY TERA Administration Atorvastatin Calcium 40 mg 08/26/20 22:00 09/02/20 21:43 Atorvastatin 40 Mg Tab PO 40 mg QHS TERA Administration Dextrose 50 ml 08/26/20 19:18 Dextrose 50% In Water (25gm) 50 Ml Syringe IV Q30MIN PRN Hypoglycemia Protocol Famotidine 20 mg 08/28/20 10:00 09/03/20 10:30 Famotidine 20 Mg Tab PO 20 mg DAILY TERA Administration Furosemide 40 mg 09/03/20 11:00 09/03/20 13:36 Furosemide 40 Mg/4 Ml Inj IV 40 mg 0600,1800 TERA Administration Heparin Sodium (Porcine) 5,000 unit 08/26/20 22:00 09/03/20 10:30 Heparin 5,000 Unit/1 Ml Vial SUB-Q 5,000 unit Q12HR TERA Administration Hydralazine HCl 10 mg 08/26/20 01:20 08/31/20 08:45 Hydralazine 20 Mg/1 Ml Inj IV 10 mg Q4HR PRN Administration Blood Pressure Hydralazine HCl 50 mg 09/01/20 14:00 09/03/20 13:36 Hydralazine 25 Mg Tab PO 50 mg Q8HR TERA Administration Hydrophilic Ointment 1 applic 08/25/20 11:07 08/25/20 11:57 Lip Therapy Vaseline TP 1 applic Q2HR PRN Administration Dry Lips Insulin Glargine 25 units 09/01/20 22:00 09/02/20 21:44 Insulin Glargine 100 Units/Ml SUB-Q 25 units QHS TERA Administration Insulin Human Lispro 0 unit 08/27/20 12:00 09/03/20 13:37 Insulin Lispro 100 Unit/Ml SUB-Q 2 unit Q6HR TERA Administration Protocol Lacosamide 100 mg 09/02/20 10:00 09/03/20 10:29 Lacosamide 100 Mg Tab PO 100 mg Q12HR TERA Administration Levetiracetam 1,000 mg 09/03/20 10:00 09/03/20 10:29 Levetiracetam 500 Mg/5 Ml Oral Liqd PO 1,000 mg BID TERA Administration Metoprolol Tartrate 12.5 mg 08/29/20 22:00 09/03/20 10:31 Metoprolol Tartrate 25 Mg Tab PO 12.5 mg BID TERA Administration Multi-Ingred Cream/Lotion/Oil/Oint 1 applic 08/25/20 11:07 Mineral Oil/Petrolatum, White Ophth Oint 3.5 Gm OU Q4HR PRN Dry Eye(s) Senna/Docusate Sodium 1 tab 08/25/20 22:00 09/03/20 10:30 Sennosides/Docusate Sodium 8.6/50 Mg Tab FEEDTUBE 1 tab BID TERA Administration Simple Syrup 15 ml 08/26/20 12:15 Simple Syrup 15 Ml FEEDTUBE PRN PRN Hypoglycemia Simple Syrup 30 ml 08/26/20 12:15 Simple Syrup 15 Ml FEEDTUBE PRN PRN Hypoglycemia Sodium Bicarbonate 325 mg 08/26/20 12:15 Sodium Bicarbonate 325 Mg Tab FEEDTUBE PRN PRN For Clogged Feeding Tube Sodium Chloride 10 ml 08/25/20 22:00 09/03/20 10:32 Sodium Chloride 0.9% 10 Ml Flush Syringe IV 10 ml BID TERA Administration Sodium Chloride 10 ml 08/25/20 14:55 08/29/20 04:05 Sodium Chloride 0.9% 10 Ml Flush Syringe IV 10 ml PRN PRN Administration LINE FLUSH Tamsulosin HCl 0.4 mg 08/31/20 15:00 09/03/20 10:35 Tamsulosin 0.4 Mg Cap PO 0.4 mg QDAY TERA Administration Nutrition/Malnutrition Assess - Dietary Evaluation Nutrition/Malnutrition Findings: Nutrition Notes Start: 08/26/20 10:21 Freq: Status: Active Protocol: Document 09/01/20 11:05 (Rec: 09/01/20 11:13 [email or web address]) Nutrition Notes Initial or Follow up Reassessment Current Diagnosis Acute Kidney Injury,CKD(stage I-IV),Diabetes,Hypertension, Heart Failure,Respiratory Failure Other Pertinent Diagnosis cardiac arrest, acute encephalopathy, pneu, anoxIC brain injury, GERD Current Diet Nepro 1.8 at 30 ml/hr Labs/Tests Na 134 BUN 81 Cr 3.7 Phos 4.6 Mg 2.4 Pertinent Medications Senokot Height 5 ft 5 in Weight 95.4 kg [place] Body Weight (kg) 56.81 BMI 34.9 Weight change and time frame wt change noted, pt has edema Weight Status Obese Subjective/Other Information FU for TF tolerance. Observed TF running at goal rate. No BM in chart, informed RN. Percent of energy/protein needs met: 100%/58% Burn Absent Trauma Absent Current % PO Negligible Minimum of two criteria No physical signs of malnutrition #1 Nutrition Diagnosis Inadequate oral intake Diagnosis Progress(for reassessment Continues documentation) Is patient on ventilator? Yes Is Patient Ambulatory and/or Out of Bed No REE-(Campo-St. Jeor-confined to bed) 1740.000 Kcal/Kg value to use for calculation 13 Approximate Energy Requirements Using 1240 kcal/Kg Calculation Used for Recommendations Kcal/kg Additional Notes protein needs: >114g (>2 g/ kgIBW) fluid needs 1500 - 1900 ml or per MD order Nutrition Intervention Change Diet Order: Continue TF Nutrition Support: Nepro at 30 ml/hr with a free water flush of 130 ml q4h Kcal 1,296 Protein (gm) 58 Fluid (mL) 523 Goal #1 Meet at least 75% of kcal and protein needs as best as possible Anticipated Discharge Needs: unable to determine at this time Follow-Up By: 09/06/20 Additional Comments FU for TF tolerance, BM
[2020-09-03] MEDS: LORazepam 2 MG/ML VIAL IV PRN (15:24)
--- NOTE | 2020-09-03 18:56 | Progress Note ---
Assessment and Plan Patient admitted to ICU with Acute hypoxemic respiratory failure; Cardiac arrest with ROSC; Acute encephalopathy; Multifocal pneumonia; pulmonary edema; AE-CHF; Hyperkalemia; FLORIDALMA; NSTEMI This is a 69-year-old female with OHS, DM, CKD stage IV, obesity ,CHF, GERD, HTN, chronic respiratory failure on 3 L of home oxygen via nasal cannula who presented to the emergency department on 08/25 after being found down un responsive at 0950 hours by family and upon EMS arrival she was unresponsive and asystolic arrest. Patient was treated with ACLS protocol with eventual ROSC after at least 15 minutes of ACLS and patient was transported to [facility]. In the emergency department patient was found to have acute hypoxic respiratory failure and subsequently intubated on vasopressor support, CXR which showed bilateral pneumonia and exam is consistent with SIRS. Patient not responding to verbal stimuli. Patient is o pressure support mechanical ventilation, Pressure support 12, FIO2 30%, PEEP 6 and O2 saturation running 100%. Patient resting on ventilator at this time. No ventilator asynchorny. Patient afebrile and has leukocytosis. Blood pressure 128/61 Heart rate 66 Chest xray 09/01/20 reported Severe bilateral airspace disease present. This has slightly worsened from yesterday's exam. Patient is on S/C Heparin, Famotidine, Albuterol inhaler as needed for shortness of breath. I spent critical care time of 35 minutes by reviewing the chart, examine the patient, review labs, chest xray and talking to the nursing and respiratory therapy and work out plan of treatment in this critically ill patient. - Patient Problems (1) Acute respiratory failure with hypoxia Current Visit: No Status: Acute Plan to address problem: Mechanical ventilation, Pressure support 12, FIO2 30%,PEEP 6 Albuterol inhaler S/C heparin Famotidine. (2) Multifocal pneumonia Current Visit: Yes Status: Acute Plan to address problem: Patient treated with Levaquin (3) Acute renal failure superimposed on chronic kidney disease Current Visit: Yes Status: Acute Plan to address problem: Management as per nephrology. (4) Anoxic encephalopathy Current Visit: Yes Status: Acute Plan to address problem: Supportive care. Management as per primary care. (5) Cardiac arrest Current Visit: Yes Status: Acute Plan to address problem: Patient resucitated, ROSC and on Mechanical ventilation. (6) Cardiomyopathy Current Visit: Yes Status: Chronic Plan to address problem: Management as per cardiology. (7) Diabetes Current Visit: Yes Status: Chronic Plan to address problem: Management as per primary care. (8) Hypertension Current Visit: Yes Status: Chronic Plan to address problem: Management as per primary care. (9) Suspected COVID-19 virus infection Current Visit: No Status: Acute Plan to address problem: Null virus PCR Negative. Subjective Date of service: 09/03/20 Principal diagnosis: Ac. hypoxemic resp failure; Cardiac arrest; AMS; AE-CHF; Hyperkalemia; FLORIDALMA Interval history: Patient admitted to ICU with Acute hypoxemic respiratory failure; Cardiac arrest with ROSC; Acute encephalopathy; Multifocal pneumonia; pulmonary edema; AE-CHF; Hyperkalemia; FLORIDALMA; NSTEMI This is a 69-year-old female with OHS, DM, CKD stage IV, obesity ,CHF, GERD, HTN, chronic respiratory failure on 3 L of home oxygen via nasal cannula who presented to the emergency department on 08/25 after being found down unresponsive at 0950 hours by family and upon EMS arrival she was unresponsive and asystolic arrest. Patient was treated with ACLS protocol with eventual ROSC after at least 15 minutes of ACLS and patient was transported to [facility]. In the emergency department patient was found to have acute hypoxic respiratory failure and subsequently intubated on vasopressor support, CXR which showed bilateral pneumonia and exam is consistent with SIRS. Patient not responding to verbal stimuli. Patient is o pressure support mechanical ventilation, Pressure support 12, FIO2 30%, PEEP 6 and O2 saturation running 100%. Patient resting on ventilator at this time. No ventilator asynchorny. Patient afebrile and has leukocytosis. Blood pressure 128/61 Heart rate 66 Chest xray 09/01/20 reported Severe bilateral airspace disease present. This has slightly worsened from yesterday's exam. Patient is on S/C Heparin, Famotidine, Albuterol inhaler as needed for shortness of breath. Objective Vital Signs - 12hr 09/03/20 09/03/20 09/03/20 07:00 07:25 07:31 Temperature Pulse Rate 70 71 75 Pulse Rate [ From Monitor] Respiratory 18 19 21 Rate Blood Pressure 103/39 103/39 147/54 O2 Sat by Pulse 98 98 100 Oximetry 09/03/20 09/03/20 09/03/20 08:00 08:01 08:30 Temperature 98.1 F Pulse Rate 73 71 72 Pulse Rate [ 71 From Monitor] Respiratory 19 19 20 Rate Blood Pressure 113/43 114/41 O2 Sat by Pulse 99 99 98 Oximetry 09/03/20 09/03/20 09/03/20 09:01 09:31 10:01 Temperature Pulse Rate 78 79 78 Pulse Rate [ From Monitor] Respiratory 22 21 22 Rate Blood Pressure 166/56 152/58 137/57 O2 Sat by Pulse 99 99 98 Oximetry 09/03/20 09/03/20 09/03/20 10:31 11:01 11:31 Temperature Pulse Rate 76 88 84 Pulse Rate [ From Monitor] Respiratory 20 28 H 23 Rate Blood Pressure 129/47 160/64 124/49 O2 Sat by Pulse 98 96 97 Oximetry 09/03/20 09/03/20 09/03/20 12:00 12:01 12:30 Temperature 98.3 F Pulse Rate 80 80 81 Pulse Rate [ 80 From Monitor] Respiratory 22 22 21 Rate Blood Pressure 124/53 135/55 O2 Sat by Pulse 98 98 98 Oximetry 09/03/20 09/03/20 09/03/20 13:01 13:31 13:36 Temperature Pulse Rate 83 85 83 Pulse Rate [ From Monitor] Respiratory 22 24 Rate Blood Pressure 149/60 151/63 151/63 O2 Sat by Pulse 97 98 Oximetry 09/03/20 09/03/20 09/03/20 14:00 14:31 15:00 Temperature Pulse Rate 83 79 82 Pulse Rate [ From Monitor] Respiratory 24 22 23 Rate Blood Pressure 146/66 119/49 144/62 O2 Sat by Pulse 99 98 99 Oximetry 09/03/20 09/03/20 09/03/20 15:08 15:30 16:00 Temperature 98.3 F Pulse Rate 80 76 Pulse Rate [ From Monitor] Respiratory 24 21 Rate Blood Pressure 144/62 135/58 O2 Sat by Pulse 98 98 Oximetry 09/03/20 09/03/20 09/03/20 16:01 16:03 16:30 Temperature Pulse Rate 77 72 70 Pulse Rate [ 72 From Monitor] Respiratory 23 21 20 Rate Blood Pressure 125/59 123/53 O2 Sat by Pulse 99 99 99 Oximetry 09/03/20 09/03/20 09/03/20 17:00 17:30 18:00 Temperature Pulse Rate 69 70 66 Pulse Rate [ From Monitor] Respiratory 14 22 24 Rate Blood Pressure 123/54 128/56 120/51 O2 Sat by Pulse 99 99 99 Oximetry Constitutional: no acute distress, asleep Eyes: non-icteric ENT: oropharynx moist, oropharyngeal exudate pre (clear), other (ETT 24 cm DIMAS) Neck: supple, no lymphadenopathy, no JVD Effort: mildly labored Ascultation: Bilateral: diminished breath sounds (bases), rhonchi Percussion: Bilateral: not dull Cardiovascular: regular rate and rhythm, other (S1,S2) Gastrointestinal: normoactive bowel sounds, soft, non-tender, non-distended Integumentary: normal Extremities: no cyanosis, no edema, pulses normal, no ischemia or petechiae Neurologic: pupils equal and round, unable to assess, other (encephalopathic) Psychiatric: other (unable to assess re: AMS) CBC and BMP: 09/03/20 08:31 09/03/20 08:31 ABG, PT/INR, D-dimer: ABG ABG pH 7.462 (7.320-7.450) H 09/01/20 12:51 POC ABG pCO2 39.5 mmHg (32.0-48.0) 09/01/20 12:51 ABG pCO2 36.6 mm Hg 08/31/20 04:10 POC ABG pO2 102.7 mmHg (83-108) 09/01/20 12:51 ABG pO2 99.6 mm Hg (80.0-90.0) H 08/31/20 04:10 POC ABG HCO3 27.6 09/01/20 12:51 ABG O2 Saturation 98.0 (0-100) 09/01/20 12:51 PT/INR, D-dimer D-Dimer > 28365 ng/mlDDU (0-234) H 08/25/20 11:23 Abnormal lab findings: Abnormal Labs 08/25/20 08/25/20 08/25/20 11:14 11:17 11:23 WBC 11.5 H RBC 3.22 L Hgb 8.6 L Hct 27.6 L MCH 27 L MCHC RDW 15.6 H Lymph % (Auto) Lymph # (Auto) Seg Neutrophils % Seg Neuts % (Manual) 89.0 H Lymphocytes % (Manual) 5.0 L Seg Neutrophils # Seg Neutrophils # Man 10.2 H Lymphocytes # (Manual) 0.6 L D-Dimer ABG pH 7.290 L POC ABG pO2 161.1 H ABG pO2 ABG HCO3 ABG Hemoglobin 8.9 L ABG Oxyhemoglobin 98.6 H ABG Sodium 135.2 L ABG Potassium 5.9 H ABG Glucose 210 H Oxyhemoglobin Carboxyhemoglobin 0.4 L Sodium Potassium Chloride Carbon Dioxide BUN Creatinine Glucose POC Glucose Lactic Acid Calcium Phosphorus Magnesium AST ALT Troponin T C-Reactive Protein Total Protein Albumin Arterial Blood Glucose 210 H Arterial Blood Ionized Calcium 4.4 L Urine WBC (Auto) 31.0 H Urine Creatinine 08/25/20 08/25/20 08/25/20 11:23 11:23 11:23 WBC RBC Hgb Hct MCH MCHC RDW Lymph % (Auto) Lymph # (Auto) Seg Neutrophils % Seg Neuts % (Manual) Lymphocytes % (Manual) Seg Neutrophils # Seg Neutrophils # Man Lymphocytes # (Manual) D-Dimer > 88917 H ABG pH POC ABG pO2 ABG pO2 ABG HCO3 ABG Hemoglobin ABG Oxyhemoglobin ABG Sodium ABG Potassium ABG Glucose Oxyhemoglobin Carboxyhemoglobin Sodium Potassium 6.4 H* Chloride Carbon Dioxide 21 L BUN 52 H Creatinine 3.5 H Glucose 194 H POC Glucose Lactic Acid 3.30 H* Calcium 8.1 L Phosphorus Magnesium AST 103 H ALT 77 H Troponin T 0.057 H C-Reactive Protein Total Protein 5.8 L Albumin 3.4 L Arterial Blood Glucose Arterial Blood Ionized Calcium Urine WBC (Auto) Urine Creatinine 08/25/20 08/25/20 08/25/20 13:51 15:45 20:34 WBC RBC Hgb Hct MCH MCHC RDW Lymph % (Auto) Lymph # (Auto) Seg Neutrophils % Seg Neuts % (Manual) Lymphocytes % (Manual) Seg Neutrophils # Seg Neutrophils # Man Lymphocytes # (Manual) D-Dimer ABG pH POC ABG pO2 66.3 L ABG pO2 ABG HCO3 ABG Hemoglobin 9.1 L ABG Oxyhemoglobin 92.5 L ABG Sodium ABG Potassium ABG Glucose 225 H Oxyhemoglobin Carboxyhemoglobin Sodium Potassium Chloride Carbon Dioxide BUN Creatinine Glucose POC Glucose 188 H 233 H Lactic Acid Calcium Phosphorus Magnesium AST ALT Troponin T C-Reactive Protein Total Protein Albumin Arterial Blood Glucose 225 H Arterial Blood Ionized Calcium 4.4 L Urine WBC (Auto) Urine Creatinine 08/26/20 08/26/20 08/26/20 04:14 05:04 05:04 WBC 17.9 H RBC 3.05 L Hgb 8.3 L Hct 25.6 L MCH 27 L MCHC RDW 15.3 H Lymph % (Auto) Lymph # (Auto) Seg Neutrophils % Seg Neuts % (Manual) 96.0 H Lymphocytes % (Manual) 1.0 L Seg Neutrophils # Seg Neutrophils # Man 17.2 H Lymphocytes # (Manual) 0.2 L D-Dimer ABG pH POC ABG pO2 131.3 H ABG pO2 ABG HCO3 ABG Hemoglobin 8.6 L ABG Oxyhemoglobin 98.2 H ABG Sodium ABG Potassium ABG Glucose 182 H Oxyhemoglobin Carboxyhemoglobin 0.2 L Sodium Potassium Chloride Carbon Dioxide BUN 56 H Creatinine 3.4 H Glucose 187 H POC Glucose Lactic Acid Calcium 8.3 L Phosphorus Magnesium AST 54 H ALT 57 H Troponin T C-Reactive Protein Total Protein 5.4 L Albumin 2.9 L Arterial Blood Glucose 182 H Arterial Blood Ionized Calcium 4.3 L Urine WBC (Auto) Urine Creatinine 08/26/20 08/26/20 08/26/20 05:40 07:36 11:54 WBC RBC Hgb Hct MCH MCHC RDW Lymph % (Auto) Lymph # (Auto) Seg Neutrophils % Seg Neuts % (Manual) Lymphocytes % (Manual) Seg Neutrophils # Seg Neutrophils # Man Lymphocytes # (Manual) D-Dimer ABG pH POC ABG pO2 ABG pO2 ABG HCO3 ABG Hemoglobin ABG Oxyhemoglobin ABG Sodium ABG Potassium ABG Glucose Oxyhemoglobin Carboxyhemoglobin Sodium Potassium Chloride Carbon Dioxide BUN Creatinine Glucose POC Glucose 179 H 171 H 190 H Lactic Acid Calcium Phosphorus Magnesium AST ALT Troponin T C-Reactive Protein Total Protein Albumin Arterial Blood Glucose Arterial Blood Ionized Calcium Urine WBC (Auto) Urine Creatinine 08/26/20 08/26/20 08/26/20 15:14 17:00 18:50 WBC RBC Hgb Hct MCH MCHC RDW Lymph % (Auto) Lymph # (Auto) Seg Neutrophils % Seg Neuts % (Manual) Lymphocytes % (Manual) Seg Neutrophils # Seg Neutrophils # Man Lymphocytes # (Manual) D-Dimer ABG pH POC ABG pO2 ABG pO2 ABG HCO3 ABG Hemoglobin ABG Oxyhemoglobin ABG Sodium ABG Potassium ABG Glucose Oxyhemoglobin Carboxyhemoglobin Sodium Potassium Chloride Carbon Dioxide BUN Creatinine Glucose POC Glucose 158 H Lactic Acid Calcium Phosphorus Magnesium AST ALT Troponin T C-Reactive Protein 7.80 H Total Protein Albumin Arterial Blood Glucose Arterial Blood Ionized Calcium Urine WBC (Auto) Urine Creatinine 67.4 H 08/26/20 08/27/20 08/27/20 22:01 04:10 05:12 WBC RBC Hgb Hct MCH MCHC RDW Lymph % (Auto) Lymph # (Auto) Seg Neutrophils % Seg Neuts % (Manual) Lymphocytes % (Manual) Seg Neutrophils # Seg Neutrophils # Man Lymphocytes # (Manual) D-Dimer ABG pH 7.454 H POC ABG pO2 74.9 L ABG pO2 ABG HCO3 ABG Hemoglobin 7.9 L ABG Oxyhemoglobin ABG Sodium ABG Potassium ABG Glucose 117 H Oxyhemoglobin Carboxyhemoglobin Sodium Potassium Chloride Carbon Dioxide BUN Creatinine Glucose POC Glucose 122 H 117 H Lactic Acid Calcium Phosphorus Magnesium AST ALT Troponin T C-Reactive Protein Total Protein Albumin Arterial Blood Glucose 117 H Arterial Blood Ionized Calcium 4.4 L Urine WBC (Auto) Urine Creatinine 08/27/20 08/27/20 08/27/20 07:24 07:24 11:08 WBC 12.7 H RBC 2.92 L Hgb 8.1 L Hct 24.4 L MCH MCHC RDW 15.4 H Lymph % (Auto) 5.9 L Lymph # (Auto) 0.8 L Seg Neutrophils % 86.9 H Seg Neuts % (Manual) Lymphocytes % (Manual) Seg Neutrophils # 11.0 H Seg Neutrophils # Man Lymphocytes # (Manual) D-Dimer ABG pH POC ABG pO2 ABG pO2 ABG HCO3 ABG Hemoglobin ABG Oxyhemoglobin ABG Sodium ABG Potassium ABG Glucose Oxyhemoglobin Carboxyhemoglobin Sodium Potassium Chloride Carbon Dioxide BUN 60 H Creatinine 3.6 H Glucose 135 H POC Glucose 139 H Lactic Acid Calcium Phosphorus Magnesium AST ALT Troponin T C-Reactive Protein Total Protein 5.3 L Albumin 2.6 L Arterial Blood Glucose Arterial Blood Ionized Calcium Urine WBC (Auto) Urine Creatinine 08/27/20 08/27/20 08/27/20 11:19 17:31 23:25 WBC RBC Hgb Hct MCH MCHC RDW Lymph % (Auto) Lymph # (Auto) Seg Neutrophils % Seg Neuts % (Manual) Lymphocytes % (Manual) Seg Neutrophils # Seg Neutrophils # Man Lymphocytes # (Manual) D-Dimer ABG pH POC ABG pO2 ABG pO2 ABG HCO3 ABG Hemoglobin ABG Oxyhemoglobin ABG Sodium ABG Potassium ABG Glucose Oxyhemoglobin Carboxyhemoglobin Sodium Potassium Chloride Carbon Dioxide BUN Creatinine Glucose POC Glucose 143 H 140 H 123 H Lactic Acid Calcium Phosphorus Magnesium AST ALT Troponin T C-Reactive Protein Total Protein Albumin Arterial Blood Glucose Arterial Blood Ionized Calcium Urine WBC (Auto) Urine Creatinine 08/28/20 08/28/20 08/28/20 03:50 04:19 04:19 WBC RBC 2.80 L Hgb 7.8 L Hct 23.6 L MCH MCHC RDW 15.8 H Lymph % (Auto) Lymph # (Auto) Seg Neutrophils % Seg Neuts % (Manual) Lymphocytes % (Manual) Seg Neutrophils # Seg Neutrophils # Man Lymphocytes # (Manual) D-Dimer ABG pH 7.329 L POC ABG pO2 ABG pO2 76.7 L ABG HCO3 27.0 H ABG Hemoglobin 7.5 L ABG Oxyhemoglobin ABG Sodium ABG Potassium ABG Glucose Oxyhemoglobin 93.6 L Carboxyhemoglobin Sodium 135 L Potassium Chloride Carbon Dioxide BUN 64 H Creatinine 3.8 H Glucose 143 H POC Glucose Lactic Acid Calcium 8.0 L Phosphorus Magnesium AST ALT Troponin T C-Reactive Protein Total Protein 4.8 L Albumin 2.4 L Arterial Blood Glucose Arterial Blood Ionized Calcium Urine WBC (Auto) Urine Creatinine 08/28/20 08/28/20 08/28/20 05:35 11:22 17:18 WBC RBC Hgb Hct MCH MCHC RDW Lymph % (Auto) Lymph # (Auto) Seg Neutrophils % Seg Neuts % (Manual) Lymphocytes % (Manual) Seg Neutrophils # Seg Neutrophils # Man Lymphocytes # (Manual) D-Dimer ABG pH POC ABG pO2 ABG pO2 ABG HCO3 ABG Hemoglobin ABG Oxyhemoglobin ABG Sodium ABG Potassium ABG Glucose Oxyhemoglobin Carboxyhemoglobin Sodium Potassium Chloride Carbon Dioxide BUN Creatinine Glucose POC Glucose 147 H 182 H 216 H Lactic Acid Calcium Phosphorus Magnesium AST ALT Troponin T C-Reactive Protein Total Protein Albumin Arterial Blood Glucose Arterial Blood Ionized Calcium Urine WBC (Auto) Urine Creatinine 08/28/20 08/28/20 08/29/20 21:04 23:20 04:32 WBC RBC Hgb Hct MCH MCHC RDW Lymph % (Auto) Lymph # (Auto) Seg Neutrophils % Seg Neuts % (Manual) Lymphocytes % (Manual) Seg Neutrophils # Seg Neutrophils # Man Lymphocytes # (Manual) D-Dimer ABG pH POC ABG pO2 ABG pO2 ABG HCO3 ABG Hemoglobin ABG Oxyhemoglobin ABG Sodium ABG Potassium ABG Glucose Oxyhemoglobin Carboxyhemoglobin Sodium 135 L Potassium Chloride 96.0 L Carbon Dioxide BUN 67 H Creatinine 3.8 H Glucose 200 H POC Glucose 204 H 242 H Lactic Acid Calcium 8.2 L Phosphorus Magnesium AST ALT Troponin T C-Reactive Protein Total Protein Albumin Arterial Blood Glucose Arterial Blood Ionized Calcium Urine WBC (Auto) Urine Creatinine 08/29/20 08/29/20 08/29/20 04:32 04:50 04:59 WBC RBC 3.25 L Hgb 9.0 L Hct 27.0 L MCH MCHC RDW 16.1 H Lymph % (Auto) Lymph # (Auto) Seg Neutrophils % Seg Neuts % (Manual) Lymphocytes % (Manual) Seg Neutrophils # Seg Neutrophils # Man Lymphocytes # (Manual) D-Dimer ABG pH POC ABG pO2 ABG pO2 ABG HCO3 ABG Hemoglobin 8.8 L ABG Oxyhemoglobin ABG Sodium ABG Potassium ABG Glucose Oxyhemoglobin Carboxyhemoglobin Sodium Potassium Chloride Carbon Dioxide BUN Creatinine Glucose POC Glucose 201 H Lactic Acid Calcium Phosphorus Magnesium AST ALT Troponin T C-Reactive Protein Total Protein Albumin Arterial Blood Glucose Arterial Blood Ionized Calcium Urine WBC (Auto) Urine Creatinine 08/29/20 08/29/20 08/29/20 11:10 11:28 17:50 WBC RBC Hgb Hct MCH MCHC RDW Lymph % (Auto) Lymph # (Auto) Seg Neutrophils % Seg Neuts % (Manual) Lymphocytes % (Manual) Seg Neutrophils # Seg Neutrophils # Man Lymphocytes # (Manual) D-Dimer ABG pH POC ABG pO2 ABG pO2 78.7 L ABG HCO3 26.6 H ABG Hemoglobin 9.8 L ABG Oxyhemoglobin ABG Sodium ABG Potassium ABG Glucose Oxyhemoglobin 94.3 L Carboxyhemoglobin Sodium Potassium Chloride Carbon Dioxide BUN Creatinine Glucose POC Glucose 219 H 203 H Lactic Acid Calcium Phosphorus Magnesium AST ALT Troponin T C-Reactive Protein Total Protein Albumin Arterial Blood Glucose Arterial Blood Ionized Calcium Urine WBC (Auto) Urine Creatinine 08/29/20 08/29/20 08/30/20 21:31 23:28 04:14 WBC RBC Hgb Hct MCH MCHC RDW Lymph % (Auto) Lymph # (Auto) Seg Neutrophils % Seg Neuts % (Manual) Lymphocytes % (Manual) Seg Neutrophils # Seg Neutrophils # Man Lymphocytes # (Manual) D-Dimer ABG pH POC ABG pO2 ABG pO2 ABG HCO3 ABG Hemoglobin ABG Oxyhemoglobin ABG Sodium ABG Potassium ABG Glucose Oxyhemoglobin Carboxyhemoglobin Sodium 132 L Potassium Chloride 94.8 L Carbon Dioxide BUN 68 H Creatinine 3.7 H Glucose 214 H POC Glucose 204 H 215 H Lactic Acid Calcium Phosphorus Magnesium AST ALT Troponin T C-Reactive Protein Total Protein Albumin Arterial Blood Glucose Arterial Blood Ionized Calcium Urine WBC (Auto) Urine Creatinine 08/30/20 08/30/20 08/30/20 05:10 11:33 17:32 WBC RBC Hgb Hct MCH MCHC RDW Lymph % (Auto) Lymph # (Auto) Seg Neutrophils % Seg Neuts % (Manual) Lymphocytes % (Manual) Seg Neutrophils # Seg Neutrophils # Man Lymphocytes # (Manual) D-Dimer ABG pH POC ABG pO2 ABG pO2 ABG HCO3 ABG Hemoglobin ABG Oxyhemoglobin ABG Sodium ABG Potassium ABG Glucose Oxyhemoglobin Carboxyhemoglobin Sodium Potassium Chloride Carbon Dioxide BUN Creatinine Glucose POC Glucose 210 H 194 H 202 H Lactic Acid Calcium Phosphorus Magnesium AST ALT Troponin T C-Reactive Protein Total Protein Albumin Arterial Blood Glucose Arterial Blood Ionized Calcium Urine WBC (Auto) Urine Creatinine 08/30/20 08/30/20 08/30/20 21:39 23:21 Unknown WBC RBC Hgb Hct MCH MCHC RDW Lymph % (Auto) Lymph # (Auto) Seg Neutrophils % Seg Neuts % (Manual) Lymphocytes % (Manual) Seg Neutrophils # Seg Neutrophils # Man Lymphocytes # (Manual) D-Dimer ABG pH POC ABG pO2 ABG pO2 99.0 H ABG HCO3 ABG Hemoglobin 9.8 L ABG Oxyhemoglobin ABG Sodium ABG Potassium ABG Glucose Oxyhemoglobin Carboxyhemoglobin Sodium Potassium Chloride Carbon Dioxide BUN Creatinine Glucose POC Glucose 199 H 209 H Lactic Acid Calcium Phosphorus Magnesium AST ALT Troponin T C-Reactive Protein Total Protein Albumin Arterial Blood Glucose Arterial Blood Ionized Calcium Urine WBC (Auto) Urine Creatinine 08/31/20 08/31/20 08/31/20 04:10 05:19 10:57 WBC RBC Hgb Hct MCH MCHC RDW Lymph % (Auto) Lymph # (Auto) Seg Neutrophils % Seg Neuts % (Manual) Lymphocytes % (Manual) Seg Neutrophils # Seg Neutrophils # Man Lymphocytes # (Manual) D-Dimer ABG pH 7.451 H POC ABG pO2 ABG pO2 99.6 H ABG HCO3 ABG Hemoglobin 8.4 L ABG Oxyhemoglobin ABG Sodium ABG Potassium ABG Glucose Oxyhemoglobin Carboxyhemoglobin Sodium 133 L Potassium Chloride 96.4 L Carbon Dioxide BUN 74 H Creatinine 3.8 H Glucose 201 H POC Glucose 182 H Lactic Acid Calcium 7.6 L Phosphorus Magnesium AST ALT Troponin T C-Reactive Protein Total Protein Albumin Arterial Blood Glucose Arterial Blood Ionized Calcium Urine WBC (Auto) Urine Creatinine 08/31/20 08/31/20 08/31/20 10:57 12:32 17:15 WBC 11.4 H RBC 3.24 L Hgb 8.5 L Hct 26.6 L MCH 26 L MCHC RDW 15.6 H Lymph % (Auto) Lymph # (Auto) Seg Neutrophils % Seg Neuts % (Manual) Lymphocytes % (Manual) Seg Neutrophils # Seg Neutrophils # Man Lymphocytes # (Manual) D-Dimer ABG pH POC ABG pO2 ABG pO2 ABG HCO3 ABG Hemoglobin ABG Oxyhemoglobin ABG Sodium ABG Potassium ABG Glucose Oxyhemoglobin Carboxyhemoglobin Sodium Potassium Chloride Carbon Dioxide BUN Creatinine Glucose POC Glucose 217 H 203 H Lactic Acid Calcium Phosphorus Magnesium AST ALT Troponin T C-Reactive Protein Total Protein Albumin Arterial Blood Glucose Arterial Blood Ionized Calcium Urine WBC (Auto) Urine Creatinine 09/01/20 09/01/20 09/01/20 00:06 05:05 09:41 WBC RBC Hgb Hct MCH MCHC RDW Lymph % (Auto) Lymph # (Auto) Seg Neutrophils % Seg Neuts % (Manual) Lymphocytes % (Manual) Seg Neutrophils # Seg Neutrophils # Man Lymphocytes # (Manual) D-Dimer ABG pH POC ABG pO2 ABG pO2 ABG HCO3 ABG Hemoglobin ABG Oxyhemoglobin ABG Sodium ABG Potassium ABG Glucose Oxyhemoglobin Carboxyhemoglobin Sodium 134 L Potassium Chloride 95.2 L Carbon Dioxide BUN 81 H Creatinine 3.7 H Glucose 201 H POC Glucose 223 H 225 H Lactic Acid Calcium Phosphorus 4.60 H Magnesium 2.40 H AST ALT Troponin T C-Reactive Protein Total Protein Albumin Arterial Blood Glucose Arterial Blood Ionized Calcium Urine WBC (Auto) Urine Creatinine 09/01/20 09/01/20 09/01/20 09:41 12:51 13:08 WBC 11.5 H RBC 3.58 L Hgb 9.2 L Hct 29.7 L MCH 26 L MCHC RDW 16.0 H Lymph % (Auto) Lymph # (Auto) Seg Neutrophils % Seg Neuts % (Manual) Lymphocytes % (Manual) Seg Neutrophils # Seg Neutrophils # Man Lymphocytes # (Manual) D-Dimer ABG pH 7.462 H POC ABG pO2 ABG pO2 ABG HCO3 ABG Hemoglobin 9.5 L ABG Oxyhemoglobin ABG Sodium 130.4 L ABG Potassium ABG Glucose 208 H Oxyhemoglobin Carboxyhemoglobin 0.4 L Sodium Potassium Chloride Carbon Dioxide BUN Creatinine Glucose POC Glucose 182 H Lactic Acid Calcium Phosphorus Magnesium AST ALT Troponin T C-Reactive Protein Total Protein Albumin Arterial Blood Glucose 208 H Arterial Blood Ionized Calcium 4.5 L Urine WBC (Auto) Urine Creatinine 09/01/20 09/01/20 09/02/20 18:34 23:14 05:22 WBC RBC Hgb Hct MCH MCHC RDW Lymph % (Auto) Lymph # (Auto) Seg Neutrophils % Seg Neuts % (Manual) Lymphocytes % (Manual) Seg Neutrophils # Seg Neutrophils # Man Lymphocytes # (Manual) D-Dimer ABG pH POC ABG pO2 ABG pO2 ABG HCO3 ABG Hemoglobin ABG Oxyhemoglobin ABG Sodium ABG Potassium ABG Glucose Oxyhemoglobin Carboxyhemoglobin Sodium Potassium Chloride Carbon Dioxide BUN Creatinine Glucose POC Glucose 183 H 181 H 178 H Lactic Acid Calcium Phosphorus Magnesium AST ALT Troponin T C-Reactive Protein Total Protein Albumin Arterial Blood Glucose Arterial Blood Ionized Calcium Urine WBC (Auto) Urine Creatinine 09/02/20 09/02/20 09/02/20 07:35 11:16 17:39 WBC RBC Hgb Hct MCH MCHC RDW Lymph % (Auto) Lymph # (Auto) Seg Neutrophils % Seg Neuts % (Manual) Lymphocytes % (Manual) Seg Neutrophils # Seg Neutrophils # Man Lymphocytes # (Manual) D-Dimer ABG pH POC ABG pO2 ABG pO2 ABG HCO3 ABG Hemoglobin ABG Oxyhemoglobin ABG Sodium ABG Potassium ABG Glucose Oxyhemoglobin Carboxyhemoglobin Sodium 135 L Potassium Chloride 96.0 L Carbon Dioxide BUN 88 H Creatinine 3.7 H Glucose 187 H POC Glucose 228 H 165 H Lactic Acid Calcium Phosphorus Magnesium AST ALT Troponin T C-Reactive Protein Total Protein Albumin Arterial Blood Glucose Arterial Blood Ionized Calcium Urine WBC (Auto) Urine Creatinine 09/02/20 09/03/20 09/03/20 23:24 05:35 08:31 WBC 18.5 H RBC 2.80 L Hgb 7.8 L Hct 22.7 L D MCH MCHC 35 H RDW 15.3 H Lymph % (Auto) Lymph # (Auto) Seg Neutrophils % Seg Neuts % (Manual) Lymphocytes % (Manual) Seg Neutrophils # Seg Neutrophils # Man Lymphocytes # (Manual) D-Dimer ABG pH POC ABG pO2 ABG pO2 ABG HCO3 ABG Hemoglobin ABG Oxyhemoglobin ABG Sodium ABG Potassium ABG Glucose Oxyhemoglobin Carboxyhemoglobin Sodium Potassium Chloride Carbon Dioxide BUN Creatinine Glucose POC Glucose 167 H 180 H Lactic Acid Calcium Phosphorus Magnesium AST ALT Troponin T C-Reactive Protein Total Protein Albumin Arterial Blood Glucose Arterial Blood Ionized Calcium Urine WBC (Auto) Urine Creatinine 09/03/20 09/03/20 09/03/20 08:31 12:02 17:05 WBC RBC Hgb Hct MCH MCHC RDW Lymph % (Auto) Lymph # (Auto) Seg Neutrophils % Seg Neuts % (Manual) Lymphocytes % (Manual) Seg Neutrophils # Seg Neutrophils # Man Lymphocytes # (Manual) D-Dimer ABG pH POC ABG pO2 ABG pO2 ABG HCO3 ABG Hemoglobin ABG Oxyhemoglobin ABG Sodium ABG Potassium ABG Glucose Oxyhemoglobin Carboxyhemoglobin Sodium 134 L Potassium Chloride 96.6 L Carbon Dioxide BUN 96 H Creatinine 3.7 H Glucose 190 H POC Glucose 156 H 150 H Lactic Acid Calcium 8.1 L Phosphorus Magnesium AST ALT Troponin T C-Reactive Protein Total Protein Albumin Arterial Blood Glucose Arterial Blood Ionized Calcium Urine WBC (Auto) Urine Creatinine Allied health notes reviewed: nursing
--- NOTE | 2020-09-03 19:44 | Progress Note ---
Assessment and Plan 1. Acute kidney injury: Vasomotor FLORIDALMA superimposed on CKD stage 4 in the setting Cardiac arrest. Low FeNa. CT abdomen negative for hydro. Monitor renal function. Creatinine leveled off. Remain non-oliguric. Renal prognosis is guarded. Avoid nephrotoxic agents. Meds dosage based on GFR. Monitor for [place]UP[place] MAN needs. 2. FEN: Volume overload, IV lasix. Hyperkalemia, improved. Metabolic acidosis, improved. Monitor lytes. 3. Acute respiratory failure with hypoxia: 2/2 b/p pneumonia. Covid test negative. Intubated, on vent. Followed by Pulmonary. 4. S/p OOH Cardiac arrest: Prolonged downtime. Followed by Cards. 5. Bladder retention: Christina catheter. 6. Diabetes mellitus type 2: Follow blood glucose. 7. Hypertension: Monitor BP. 8. Anemia, POA: Monitor. 9. 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 Family is aware of slim prognosis. 10. Facial twitching: Vimpat. Subjective: Patient was not examined today. However the examination findings from other providers noted. The current and previous medical records are reviewed in detail as are laboratory and imaging data reviewed when appropriate. Medications being given are also reviewed. In addition the case has been discussed with the attending hospitalist and the nurse when needed. New renal recommendations as above. seen and examined at the bedside. Examination: Subjective Date of service: 09/03/20 Principal diagnosis: Ac. hypoxemic resp failure; Cardiac arrest; AMS; AE-CHF; Hyperkalemia; FLORIDALMA Objective - Vital Signs Vital signs: Vital Signs - 12hr 09/03/20 09/03/20 09/03/20 08:00 08:01 08:30 Temperature 98.1 F Pulse Rate 73 71 72 Pulse Rate [ 71 From Monitor] Respiratory 19 19 20 Rate Blood Pressure 113/43 114/41 O2 Sat by Pulse 99 99 98 Oximetry 09/03/20 09/03/20 09/03/20 09:01 09:31 10:01 Temperature Pulse Rate 78 79 78 Pulse Rate [ From Monitor] Respiratory 22 21 22 Rate Blood Pressure 166/56 152/58 137/57 O2 Sat by Pulse 99 99 98 Oximetry 09/03/20 09/03/20 09/03/20 10:31 11:01 11:31 Temperature Pulse Rate 76 88 84 Pulse Rate [ From Monitor] Respiratory 20 28 H 23 Rate Blood Pressure 129/47 160/64 124/49 O2 Sat by Pulse 98 96 97 Oximetry 09/03/20 09/03/20 09/03/20 12:00 12:01 12:30 Temperature 98.3 F Pulse Rate 80 80 81 Pulse Rate [ 80 From Monitor] Respiratory 22 21 Rate Blood Pressure 124/53 135/55 O2 Sat by Pulse 98 98 98 Oximetry 09/03/20 09/03/20 09/03/20 13:01 13:31 13:36 Temperature Pulse Rate 83 85 83 Pulse Rate [ From Monitor] Respiratory 22 24 Rate Blood Pressure 149/60 151/63 151/63 O2 Sat by Pulse 97 98 Oximetry 09/03/20 09/03/20 09/03/20 14:00 14:31 15:00 Temperature Pulse Rate 83 79 82 Pulse Rate [ From Monitor] Respiratory 24 23 Rate Blood Pressure 146/66 119/49 144/62 O2 Sat by Pulse 99 98 99 Oximetry 09/03/20 09/03/20 09/03/20 15:08 15:30 16:00 Temperature 98.3 F Pulse Rate 80 76 Pulse Rate [ From Monitor] Respiratory 24 Rate Blood Pressure 144/62 135/58 O2 Sat by Pulse 98 98 Oximetry 09/03/20 09/03/20 09/03/20 16:01 16:03 16:30 Temperature Pulse Rate 77 72 70 Pulse Rate [ 72 From Monitor] Respiratory 23 20 Rate Blood Pressure 125/59 123/53 O2 Sat by Pulse 99 99 99 Oximetry 09/03/20 09/03/20 09/03/20 17:00 17:30 18:00 Temperature Pulse Rate 69 70 66 Pulse Rate [ From Monitor] Respiratory 14 24 Rate Blood Pressure 123/54 128/56 120/51 O2 Sat by Pulse 99 99 99 Oximetry 09/03/20 09/03/20 09/03/20 18:30 19:00 19:30 Temperature Pulse Rate 66 67 69 Pulse Rate [ From Monitor] Respiratory 25 H 24 23 Rate Blood Pressure 119/50 120/52 128/51 O2 Sat by Pulse 99 99 99 Oximetry - Lab 09/03/20 08:31 09/03/20 08:31 Most recent lab results ABG pH 7.462 (7.320-7.450) H 09/01/20 12:51 ABG pCO2 36.6 mm Hg 08/31/20 04:10 ABG pO2 99.6 mm Hg (80.0-90.0) H 08/31/20 04:10 ABG HCO3 24.9 mmol/L (20.0-26.0) 08/31/20 04:10 ABG O2 Saturation 98.0 (0-100) 09/01/20 12:51 Calcium 8.1 mg/dL (8.4-10.2) L 09/03/20 08:31 Phosphorus 4.60 mg/dL (2.5-4.5) H 09/01/20 09:41 Magnesium 2.40 mg/dL (1.7-2.3) H 09/01/20 09:41 Urine Creatinine 67.4 mg/dL (0.1-20.0) H 08/26/20 17:00 Urine Sodium 12 mmol/L 08/26/20 17:00 Medications & Allergies - Medications Allergies/Adverse Reactions: Allergies No Known Allergies Allergy (Verified 07/31/18 07:06) Home Medications: Home Medications Medication Instructions Recorded Confirmed Last Taken Type Albuterol Mdi (or & Nicu Only) 2 puff IH QID PRN #1 inhalation 08/07/18 03/14/20 Unknown Rx [ProAir HFA Inhaler] Sucralfate [Carafate] 1 gm PO ACHS #30 tablet 08/07/18 03/14/20 03/13/20 Rx Insulin Regular, Human [HumuLIN R] 0 unit SQ AC #1 vial 08/11/18 03/14/20 Unknown Rx Labetalol HCl [Labetalol 300mg TAB] 300 mg PO BID #60 tablet 11/11/19 03/14/20 0 03/14/20 Rx Furosemide [Lasix TAB] 80 mg PO DAILY #14 tablet 03/27/20 Unknown Rx Insulin Glargine [Lantus VIAL] 15 units SUB-Q QAM #1 vial 03/27/20 Unknown Rx amLODIPine 10 mg PO QDAY #30 tablet 03/27/20 Unknown Rx Active Medications: Generic Name Dose Route Start Last Admin Trade Name Freq PRN Reason Stop Dose Admin Albuterol 2.5 mg 08/25/20 14:55 Albuterol 2.5 Mg/3 Ml Nebu IH Q3HRT PRN Shortness Of Breath Amlodipine Besylate 5 mg 08/28/20 10:00 07/04/21 10:31 Amlodipine 5 Mg Tab PO 5 mg QDAY TERA Administration Lipase/Protease/Amylase 1 each 08/26/20 12:15 Lipase 10,500/Protease 25,000/Amylase 43,750 (Units) Dr Gu FEEDTUBE PRN PRN For Clogged Feeding Tube Aspirin 81 mg 08/27/20 10:00 09/03/20 10:30 Aspirin 81 Mg Tab Chew PO 81 mg QDAY TERA Administration Atorvastatin Calcium 40 mg 08/26/20 22:00 09/02/20 21:43 Atorvastatin 40 Mg Tab PO 40 mg QHS TERA Administration Dextrose 50 ml 08/26/20 19:18 Dextrose 50% In Water (25gm) 50 Ml Syringe IV Q30MIN PRN Hypoglycemia Protocol Famotidine 20 mg 08/28/20 10:00 09/03/20 10:30 Famotidine 20 Mg Tab PO 20 mg DAILY TERA Administration Furosemide 40 mg 09/03/20 11:00 09/03/20 17:13 Furosemide 40 Mg/4 Ml Inj IV 40 mg 0600,1800 TERA Administration Heparin Sodium (Porcine) 5,000 unit 08/26/20 22:00 09/03/20 10:30 Heparin 5,000 Unit/1 Ml Vial SUB-Q 5,000 unit Q12HR TERA Administration Hydralazine HCl 10 mg 08/26/20 01:20 08/31/20 08:45 Hydralazine 20 Mg/1 Ml Inj IV 10 mg Q4HR PRN Administration Blood Pressure Hydralazine HCl 50 mg 09/01/20 14:00 09/03/20 13:36 Hydralazine 25 Mg Tab PO 50 mg Q8HR TERA Administration Hydrophilic Ointment 1 applic 08/25/20 11:07 08/25/20 11:57 Lip Therapy Vaseline TP 1 applic Q2HR PRN Administration Dry Lips Insulin Glargine 25 units 09/01/20 22:00 09/02/20 21:44 Insulin Glargine 100 Units/Ml SUB-Q 25 units QHS TERA Administration Insulin Human Lispro 0 unit 08/27/20 12:00 09/03/20 17:13 Insulin Lispro 100 Unit/Ml SUB-Q 2 unit Q6HR TERA Administration Protocol Lacosamide 100 mg 09/02/20 10:00 09/03/20 10:29 Lacosamide 100 Mg Tab PO 100 mg Q12HR TERA Administration Levetiracetam 1,000 mg 09/03/20 10:00 09/03/20 10:29 Levetiracetam 500 Mg/5 Ml Oral Liqd PO 1,000 mg BID TERA Administration Lorazepam 2 mg 09/03/20 15:12 09/03/20 15:24 Lorazepam 2 Mg/Ml Vial IV 2 mg Q1H PRN Administration Seizures Metoprolol Tartrate 12.5 mg 08/29/20 22:00 09/03/20 10:31 Metoprolol Tartrate 25 Mg Tab PO 12.5 mg BID TERA Administration Multi-Ingred Cream/Lotion/Oil/Oint 1 applic 08/25/20 11:07 Mineral Oil/Petrolatum, White Ophth Oint 3.5 Gm OU Q4HR PRN Dry Eye(s) Senna/Docusate Sodium 1 tab 08/25/20 22:00 09/03/20 10:30 Sennosides/Docusate Sodium 8.6/50 Mg Tab FEEDTUBE 1 tab BID TERA Administration Simple Syrup 15 ml 08/26/20 12:15 Simple Syrup 15 Ml FEEDTUBE PRN PRN Hypoglycemia Simple Syrup 30 ml 08/26/20 12:15 Simple Syrup 15 Ml FEEDTUBE PRN PRN Hypoglycemia Sodium Bicarbonate 325 mg 08/26/20 12:15 Sodium Bicarbonate 325 Mg Tab FEEDTUBE PRN PRN For Clogged Feeding Tube Sodium Chloride 10 ml 08/25/20 22:00 09/03/20 10:32 Sodium Chloride 0.9% 10 Ml Flush Syringe IV 10 ml BID TERA Administration Sodium Chloride 10 ml 08/25/20 14:55 08/29/20 04:05 Sodium Chloride 0.9% 10 Ml Flush Syringe IV 10 ml PRN PRN Administration LINE FLUSH Tamsulosin HCl 0.4 mg 08/31/20 15:00 09/03/20 10:35 Tamsulosin 0.4 Mg Cap PO 0.4 mg QDAY TERA Administration
[2020-09-03] MEDS: INSULIN GLARGINE 100 UNITS/ML SUB-Q SCH (21:21)
[2020-09-04] MEDS: INSULIN LISPRO 100 UNIT/ML SUB-Q SCH ×4 (02:41→18:18)
[2020-09-04] MEDS: hydrALAZINE 25 MG TAB PO SCH ×3 (07:29→21:31)
[2020-09-04] MEDS: FUROSEMIDE 40 MG/4 ML INJ IV SCH ×2 (07:29→18:18)
--- NOTE | 2020-09-04 08:34 | Consultation ---
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 Patient is intubated and on ventilatory support at the time of my evaluation and unable to provide history. Patient history provided by EMS staff, ED staff, as well as patient's family who was made available by telephone interview. As per family the patient was in her usual state of health upon awakening from sleep around 0830 hrs. The patient was found down and unresponsive at 0950 hrs. EMS was notified and upon arrival the patient was found to be unresponsive and asystolic arrest. Patient treated" with ACLS protocol with eventual return of perfusing cardiac rhythm. Patient subsequently transported to [facility] for further care and evaluation of the aforementioned symptoms. The patient was seen and evaluated in the emergency department. All lab and imaging studies reviewed. Patient was found to have acute hypoxemic respiratory failure and was subsequently intubated and placed on ventilatory support. Patient also underwent chest x-ray and was found to have bilateral pneumonia, as well as systemic inflammatory response syndrome. Critical care team consulted in ED. Patient admitted to ICU and initiated on pneumonia protocol. Cardiology team consulted. No further history is obtainable. Prior admission on 03/14/2020 reviewed. All medication listed at time of admission has been reconciled. Advanced care planning conducted in ED. pt. continues to have facial twitching she is unresponsive to command intubated and is off sedation . Kidney function is stable at creat.#3.7 MRI brain on 08/29 is remarkable for diffuse signal abnormalities with findinigs is suggestive of post anoxic brain injury EEG form 08/30 is remarkable for diffuse slowing 3-4 Hz with no clear electrographic findings or focal slowing she is on Keppra 1000 mg bid and Vimpat 100 mg bid Past History Past Medical History: diabetes, GERD, heart failure, hypertension, other (See HPI) Past Surgical History: hysterectomy Social history: , lives with family. denies: smoking, alcohol abuse, prescription drug abuse Family history: diabetes, hypertension Medications and Allergies Allergies Allergy/AdvReac Type Severity Reaction Status Date / Time No Known Allergies Allergy Verified 07/31/18 07:06 Home Medications Medication Instructions Recorded Confirmed Last Taken Type Albuterol Mdi (or & Nicu Only) 2 puff IH QID PRN #1 inhalation 08/07/18 03/14/20 Unknown Rx [ProAir HFA Inhaler] Sucralfate [Carafate] 1 gm PO ACHS #30 tablet 08/07/18 03/14/20 03/13/20 Rx Insulin Regular, Human [HumuLIN R] 0 unit SQ AC #1 vial 08/11/18 03/14/20 Unknown Rx Labetalol HCl [Labetalol 300mg TAB] 300 mg PO BID #60 tablet 11/11/19 03/14/20 03/14/20 Rx Furosemide [Lasix TAB] 80 mg PO DAILY #14 tablet 03/27/20 Unknown Rx Insulin Glargine [Lantus VIAL] 15 units SUB-Q QAM #1 vial 03/27/20 Unknown Rx amLODIPine 10 mg PO QDAY #30 tablet 03/27/20 Unknown Rx Active Meds: Active Medications Famotidine (Famotidine 20 Mg/2 Ml Inj) 20 mg IV BID [facility] Hydrophilic Ointment (Lip Therapy Vaseline) 1 applic TP Q2HR PRN PRN Reason: Dry Lips Last Admin: 08/25/20 11:57 Dose: 1 applic Documented by: Multi-Ingred Cream/Lotion/Oil/Oint (Mineral Oil/Petrolatum, White Ophth Oint 3.5 Gm) 1 applic OU Q4HR PRN PRN Reason: Dry Eye(s) Senna/Docusate Sodium (Sennosides/Docusate Sodium 8.6/50 Mg Tab) 1 tab FEEDTUBE BID [facility] Review of Systems ROS unobtainable: due to endotracheal tube, due to mental status Past History Past Medical History: diabetes, GERD, heart failure, hypertension, renal failure, other (See HPI) Past Surgical History: hysterectomy Social history: , lives with family. denies: smoking, alcohol abuse, prescription drug abuse Family history: diabetes, hypertension Medications and Allergies Allergies Allergy/AdvReac Type Severity Reaction Status Date / Time No Known Allergies Allergy Verified 07/31/18 07:06 Home Medications Medication Instructions Recorded Confirmed Last Taken Type Albuterol Mdi (or & Nicu Only) 2 puff IH QID PRN #1 inhalation 08/07/18 03/14/20 Unknown Rx [ProAir HFA Inhaler] Sucralfate [Carafate] 1 gm PO ACHS #30 tablet 08/07/18 03/14/20 03/13/20 Rx Insulin Regular, Human [HumuLIN R] 0 unit SQ AC #1 vial 08/11/18 03/14/20 Unknown Rx Labetalol HCl [Labetalol 300mg TAB] 300 mg PO BID #60 tablet 11/11/19 03/14/20 03/14/20 Rx Furosemide [Lasix TAB] 80 mg PO DAILY #14 tablet 03/27/20 Unknown Rx Insulin Glargine [Lantus VIAL] 15 units SUB-Q QAM #1 vial 03/27/20 Unknown Rx amLODIPine 10 mg PO QDAY #30 tablet 03/27/20 Unknown Rx Active Meds: Active Medications Albuterol (Albuterol 2.5 Mg/3 Ml Nebu) 2.5 mg IH Q3HRT PRN PRN Reason: Shortness Of Breath Amlodipine Besylate (Amlodipine 5 Mg Tab) 5 mg PO QDAY [facility] Last Admin: 09/03/20 10:31 Dose: 5 mg Documented by: Lipase/Protease/Amylase (Lipase 10,500/Protease 25,000/Amylase 43,750 (Units) Dr Gu) 1 each FEEDTUBE PRN PRN PRN Reason: For Clogged Feeding Tube Aspirin (Aspirin 81 Mg Tab Chew) 81 mg PO QDAY [facility] Last Admin: 09/03/20 10:30 Dose: 81 mg Documented by: Atorvastatin Calcium (Atorvastatin 40 Mg Tab) 40 mg PO QHS [facility] Last Admin: 09/03/20 21:22 Dose: 40 mg Documented by: Dextrose (Dextrose 50% In Water (25gm) 50 Ml Syringe) 50 ml IV Q30MIN PRN; Protocol PRN Reason: Hypoglycemia Famotidine (Famotidine 20 Mg Tab) 20 mg PO DAILY [facility] Last Admin: 09/03/20 10:30 Dose: 20 mg Documented by: Furosemide (Furosemide 40 Mg/4 Ml Inj) 40 mg IV 0600,1800 [facility] Last Admin: 09/04/20 07:29 Dose: 40 mg Documented by: Heparin Sodium (Porcine) (Heparin 5,000 Unit/1 Ml Vial) 5,000 unit SUB-Q Q12HR [facility] Last Admin: 09/03/20 21:21 Dose: 5,000 unit Documented by: Hydralazine HCl (Hydralazine 20 Mg/1 Ml Inj) 10 mg IV Q4HR PRN PRN Reason: Blood Pressure Last Admin: 08/31/20 08:45 Dose: 10 mg Documented by: Hydralazine HCl (Hydralazine 25 Mg Tab) 50 mg PO Q8HR [facility] Last Admin: 09/04/20 07:29 Dose: 50 mg Documented by: Hydrophilic Ointment (Lip Therapy Vaseline) 1 applic TP Q2HR PRN PRN Reason: Dry Lips Last Admin: 08/25/20 11:57 Dose: 1 applic Documented by: Insulin Glargine (Insulin Glargine 100 Units/Ml) 25 units SUB-Q QHS [facility] Last Admin: 09/03/20 21:21 Dose: 25 units Documented by: Insulin Human Lispro (Insulin Lispro 100 Unit/Ml) 0 unit SUB-Q Q6HR [facility]; Protocol Last Admin: 09/04/20 07:29 Dose: 2 unit Documented by: Lacosamide (Lacosamide 100 Mg Tab) 100 mg PO Q12HR [facility] Last Admin: 09/03/20 21:22 Dose: 100 mg Documented by: Levetiracetam (Levetiracetam 500 Mg/5 Ml Oral Liqd) 1,000 mg PO BID [facility] Last Admin: 09/03/20 21:21 Dose: 1,000 mg Documented by: Lorazepam (Lorazepam 2 Mg/Ml Vial) 2 mg IV Q1H PRN PRN Reason: Seizures Last Admin: 09/03/20 15:24 Dose: 2 mg Documented by: Metoprolol Tartrate (Metoprolol Tartrate 25 Mg Tab) 12.5 mg PO BID [facility] Last Admin: 09/03/20 21:22 Dose: 12.5 mg Documented by: Multi-Ingred Cream/Lotion/Oil/Oint (Mineral Oil/Petrolatum, White Ophth Oint 3.5 Gm) 1 applic OU Q4HR PRN PRN Reason: Dry Eye(s) Senna/Docusate Sodium (Sennosides/Docusate Sodium 8.6/50 Mg Tab) 1 tab FEEDTUBE BID [facility] Last Admin: 09/03/20 21:23 Dose: Not Given Documented by: Simple Syrup (Simple Syrup 15 Ml) 15 ml FEEDTUBE PRN PRN PRN Reason: Hypoglycemia Simple Syrup (Simple Syrup 15 Ml) 30 ml FEEDTUBE PRN PRN PRN Reason: Hypoglycemia Sodium Bicarbonate (Sodium Bicarbonate 325 Mg Tab) 325 mg FEEDTUBE PRN PRN PRN Reason: For Clogged Feeding Tube Sodium Chloride (Sodium Chloride 0.9% 10 Ml Flush Syringe) 10 ml IV BID [facility] Last Admin: 09/03/20 21:23 Dose: 10 ml Documented by: Sodium Chloride (Sodium Chloride 0.9% 10 Ml Flush Syringe) 10 ml IV PRN PRN PRN Reason: LINE FLUSH Last Admin: 08/29/20 04:05 Dose: 10 ml Documented by: Tamsulosin HCl (Tamsulosin 0.4 Mg Cap) 0.4 mg PO QDAY [facility] Last Admin: 09/03/20 10:35 Dose: 0.4 mg Documented by: Physical Examination - Vital Signs Vital Signs: Vital Signs Pulse Resp Pulse Ox 53 L 16 95 08/25/20 10:42 08/25/20 10:42 08/25/20 10:42 - Constitutional General appearance: other (Intubated off sedation she is with intermittent left> Right facial twitching ) - EENT EENT: Present: PERRL, mucous membranes moist - Respiratory Respiratory: Present: chest non-tender, lungs clear, rhonchi - Cardiovascular Cardiovascular: Present: regular rate, normal S1, normal S2 Extremities: Present: no peripheral edema bilatateraly - Gastrointestinal Gastrointestinal: Present: normoactive bowel sounds - Integumentary Integumentary: Present: normal - Neurologic Cranial nerve examination: PERRL, EOMI, other (pupil dilated but reactive , eyes are deviated to right with left facial twitching , no corneal reflexes slight gag is noted ) Sensorimotor examination: other (no movment no withdrwal to stimuli ) Results - Laboratory Findings CBC and BMP: 09/03/20 08:31 09/03/20 08:31 Abnormal Lab Findings: Abnormal Labs 08/25/20 08/25/20 08/25/20 11:14 11:17 11:23 WBC 11.5 H RBC 3.22 L Hgb 8.6 L Hct 27.6 L MCH 27 L MCHC RDW 15.6 H Lymph % (Auto) Lymph # (Auto) Seg Neutrophils % Seg Neuts % (Manual) 89.0 H Lymphocytes % (Manual) 5.0 L Seg Neutrophils # Seg Neutrophils # Man 10.2 H Lymphocytes # (Manual) 0.6 L D-Dimer ABG pH 7.290 L POC ABG pO2 161.1 H ABG pO2 ABG HCO3 ABG Hemoglobin 8.9 L ABG Oxyhemoglobin 98.6 H ABG Sodium 135.2 L ABG Potassium 5.9 H ABG Glucose 210 H Oxyhemoglobin Carboxyhemoglobin 0.4 L Sodium Potassium Chloride Carbon Dioxide BUN Creatinine Glucose POC Glucose Lactic Acid Calcium Phosphorus Magnesium AST ALT Troponin T C-Reactive Protein Total Protein Albumin Arterial Blood Glucose 210 H Arterial Blood Ionized Calcium 4.4 L Urine WBC (Auto) 31.0 H Urine Creatinine 08/25/20 08/25/20 08/25/20 11:23 11:23 11:23 WBC RBC Hgb Hct MCH MCHC RDW Lymph % (Auto) Lymph # (Auto) Seg Neutrophils % Seg Neuts % (Manual) Lymphocytes % (Manual) Seg Neutrophils # Seg Neutrophils # Man Lymphocytes # (Manual) D-Dimer > 27243 H ABG pH POC ABG pO2 ABG pO2 ABG HCO3 ABG Hemoglobin ABG Oxyhemoglobin ABG Sodium ABG Potassium ABG Glucose Oxyhemoglobin Carboxyhemoglobin Sodium Potassium 6.4 H* Chloride Carbon Dioxide 21 L BUN 52 H Creatinine 3.5 H Glucose 194 H POC Glucose Lactic Acid 3.30 H* Calcium 8.1 L Phosphorus Magnesium AST 103 H ALT 77 H Troponin T 0.057 H C-Reactive Protein Total Protein 5.8 L Albumin 3.4 L Arterial Blood Glucose Arterial Blood Ionized Calcium Urine WBC (Auto) Urine Creatinine 08/25/20 08/25/20 08/25/20 13:51 15:45 20:34 WBC RBC Hgb Hct MCH MCHC RDW Lymph % (Auto) Lymph # (Auto) Seg Neutrophils % Seg Neuts % (Manual) Lymphocytes % (Manual) Seg Neutrophils # Seg Neutrophils # Man Lymphocytes # (Manual) D-Dimer ABG pH POC ABG pO2 66.3 L ABG pO2 ABG HCO3 ABG Hemoglobin 9.1 L ABG Oxyhemoglobin 92.5 L ABG Sodium ABG Potassium ABG Glucose 225 H Oxyhemoglobin Carboxyhemoglobin Sodium Potassium Chloride Carbon Dioxide BUN Creatinine Glucose POC Glucose 188 H 233 H Lactic Acid Calcium Phosphorus Magnesium AST ALT Troponin T C-Reactive Protein Total Protein Albumin Arterial Blood Glucose 225 H Arterial Blood Ionized Calcium 4.4 L Urine WBC (Auto) Urine Creatinine 08/26/20 08/26/20 08/26/20 04:14 05:04 05:04 WBC 17.9 H RBC 3.05 L Hgb 8.3 L Hct 25.6 L MCH 27 L MCHC RDW 15.3 H Lymph % (Auto) Lymph # (Auto) Seg Neutrophils % Seg Neuts % (Manual) 96.0 H Lymphocytes % (Manual) 1.0 L Seg Neutrophils # Seg Neutrophils # Man 17.2 H Lymphocytes # (Manual) 0.2 L D-Dimer ABG pH POC ABG pO2 131.3 H ABG pO2 ABG HCO3 ABG Hemoglobin 8.6 L ABG Oxyhemoglobin 98.2 H ABG Sodium ABG Potassium ABG Glucose 182 H Oxyhemoglobin Carboxyhemoglobin 0.2 L Sodium Potassium Chloride Carbon Dioxide BUN 56 H Creatinine 3.4 H Glucose 187 H POC Glucose Lactic Acid Calcium 8.3 L Phosphorus Magnesium AST 54 H ALT 57 H Troponin T C-Reactive Protein Total Protein 5.4 L Albumin 2.9 L Arterial Blood Glucose 182 H Arterial Blood Ionized Calcium 4.3 L Urine WBC (Auto) Urine Creatinine 08/26/20 08/26/20 08/26/20 05:40 07:36 11:54 WBC RBC Hgb Hct MCH MCHC RDW Lymph % (Auto) Lymph # (Auto) Seg Neutrophils % Seg Neuts % (Manual) Lymphocytes % (Manual) Seg Neutrophils # Seg Neutrophils # Man Lymphocytes # (Manual) D-Dimer ABG pH POC ABG pO2 ABG pO2 ABG HCO3 ABG Hemoglobin ABG Oxyhemoglobin ABG Sodium ABG Potassium ABG Glucose Oxyhemoglobin Carboxyhemoglobin Sodium Potassium Chloride Carbon Dioxide BUN Creatinine Glucose POC Glucose 179 H 171 H 190 H Lactic Acid Calcium Phosphorus Magnesium AST ALT Troponin T C-Reactive Protein Total Protein Albumin Arterial Blood Glucose Arterial Blood Ionized Calcium Urine WBC (Auto) Urine Creatinine 08/26/20 08/26/20 08/26/20 15:14 17:00 18:50 WBC RBC Hgb Hct MCH MCHC RDW Lymph % (Auto) Lymph # (Auto) Seg Neutrophils % Seg Neuts % (Manual) Lymphocytes % (Manual) Seg Neutrophils # Seg Neutrophils # Man Lymphocytes # (Manual) D-Dimer ABG pH POC ABG pO2 ABG pO2 ABG HCO3 ABG Hemoglobin ABG Oxyhemoglobin ABG Sodium ABG Potassium ABG Glucose Oxyhemoglobin Carboxyhemoglobin Sodium Potassium Chloride Carbon Dioxide BUN Creatinine Glucose POC Glucose 158 H Lactic Acid Calcium Phosphorus Magnesium AST ALT Troponin T C-Reactive Protein 7.80 H Total Protein Albumin Arterial Blood Glucose Arterial Blood Ionized Calcium Urine WBC (Auto) Urine Creatinine 67.4 H 08/26/20 08/27/20 08/27/20 22:01 04:10 05:12 WBC RBC Hgb Hct MCH MCHC RDW Lymph % (Auto) Lymph # (Auto) Seg Neutrophils % Seg Neuts % (Manual) Lymphocytes % (Manual) Seg Neutrophils # Seg Neutrophils # Man Lymphocytes # (Manual) D-Dimer ABG pH 7.454 H POC ABG pO2 74.9 L ABG pO2 ABG HCO3 ABG Hemoglobin 7.9 L ABG Oxyhemoglobin ABG Sodium ABG Potassium ABG Glucose 117 H Oxyhemoglobin Carboxyhemoglobin Sodium Potassium Chloride Carbon Dioxide BUN Creatinine Glucose POC Glucose 122 H 117 H Lactic Acid Calcium Phosphorus Magnesium AST ALT Troponin T C-Reactive Protein Total Protein Albumin Arterial Blood Glucose 117 H Arterial Blood Ionized Calcium 4.4 L Urine WBC (Auto) Urine Creatinine 08/27/20 08/27/20 08/27/20 07:24 07:24 11:08 WBC 12.7 H RBC 2.92 L Hgb 8.1 L Hct 24.4 L MCH MCHC RDW 15.4 H Lymph % (Auto) 5.9 L Lymph # (Auto) 0.8 L Seg Neutrophils % 86.9 H Seg Neuts % (Manual) Lymphocytes % (Manual) Seg Neutrophils # 11.0 H Seg Neutrophils # Man Lymphocytes # (Manual) D-Dimer ABG pH POC ABG pO2 ABG pO2 ABG HCO3 ABG Hemoglobin ABG Oxyhemoglobin ABG Sodium ABG Potassium ABG Glucose Oxyhemoglobin Carboxyhemoglobin Sodium Potassium Chloride Carbon Dioxide BUN 60 H Creatinine 3.6 H Glucose 135 H POC Glucose 139 H Lactic Acid Calcium Phosphorus Magnesium AST ALT Troponin T C-Reactive Protein Total Protein 5.3 L Albumin 2.6 L Arterial Blood Glucose Arterial Blood Ionized Calcium Urine WBC (Auto) Urine Creatinine 08/27/20 08/27/20 08/27/20 11:19 17:31 23:25 WBC RBC Hgb Hct MCH MCHC RDW Lymph % (Auto) Lymph # (Auto) Seg Neutrophils % Seg Neuts % (Manual) Lymphocytes % (Manual) Seg Neutrophils # Seg Neutrophils # Man Lymphocytes # (Manual) D-Dimer ABG pH POC ABG pO2 ABG pO2 ABG HCO3 ABG Hemoglobin ABG Oxyhemoglobin ABG Sodium ABG Potassium ABG Glucose Oxyhemoglobin Carboxyhemoglobin Sodium Potassium Chloride Carbon Dioxide BUN Creatinine Glucose POC Glucose 143 H 140 H 123 H Lactic Acid Calcium Phosphorus Magnesium AST ALT Troponin T C-Reactive Protein Total Protein Albumin Arterial Blood Glucose Arterial Blood Ionized Calcium Urine WBC (Auto) Urine Creatinine 08/28/20 08/28/20 08/28/20 03:50 04:19 04:19 WBC RBC 2.80 L Hgb 7.8 L Hct 23.6 L MCH MCHC RDW 15.8 H Lymph % (Auto) Lymph # (Auto) Seg Neutrophils % Seg Neuts % (Manual) Lymphocytes % (Manual) Seg Neutrophils # Seg Neutrophils # Man Lymphocytes # (Manual) D-Dimer ABG pH 7.329 L POC ABG pO2 ABG pO2 76.7 L ABG HCO3 27.0 H ABG Hemoglobin 7.5 L ABG Oxyhemoglobin ABG Sodium ABG Potassium ABG Glucose Oxyhemoglobin 93.6 L Carboxyhemoglobin Sodium 135 L Potassium Chloride Carbon Dioxide BUN 64 H Creatinine 3.8 H Glucose 143 H POC Glucose Lactic Acid Calcium 8.0 L Phosphorus Magnesium AST ALT Troponin T C-Reactive Protein Total Protein 4.8 L Albumin 2.4 L Arterial Blood Glucose Arterial Blood Ionized Calcium Urine WBC (Auto) Urine Creatinine 08/28/20 08/28/20 08/28/20 05:35 11:22 17:18 WBC RBC Hgb Hct MCH MCHC RDW Lymph % (Auto) Lymph # (Auto) Seg Neutrophils % Seg Neuts % (Manual) Lymphocytes % (Manual) Seg Neutrophils # Seg Neutrophils # Man Lymphocytes # (Manual) D-Dimer ABG pH POC ABG pO2 ABG pO2 ABG HCO3 ABG Hemoglobin ABG Oxyhemoglobin ABG Sodium ABG Potassium ABG Glucose Oxyhemoglobin Carboxyhemoglobin Sodium Potassium Chloride Carbon Dioxide BUN Creatinine Glucose POC Glucose 147 H 182 H 216 H Lactic Acid Calcium Phosphorus Magnesium AST ALT Troponin T C-Reactive Protein Total Protein Albumin Arterial Blood Glucose Arterial Blood Ionized Calcium Urine WBC (Auto) Urine Creatinine 08/28/20 08/28/20 08/29/20 21:04 23:20 04:32 WBC RBC Hgb Hct MCH MCHC RDW Lymph % (Auto) Lymph # (Auto) Seg Neutrophils % Seg Neuts % (Manual) Lymphocytes % (Manual) Seg Neutrophils # Seg Neutrophils # Man Lymphocytes # (Manual) D-Dimer ABG pH POC ABG pO2 ABG pO2 ABG HCO3 ABG Hemoglobin ABG Oxyhemoglobin ABG Sodium ABG Potassium ABG Glucose Oxyhemoglobin Carboxyhemoglobin Sodium 135 L Potassium Chloride 96.0 L Carbon Dioxide BUN 67 H Creatinine 3.8 H Glucose 200 H POC Glucose 204 H 242 H Lactic Acid Calcium 8.2 L Phosphorus Magnesium AST ALT Troponin T C-Reactive Protein Total Protein Albumin Arterial Blood Glucose Arterial Blood Ionized Calcium Urine WBC (Auto) Urine Creatinine 08/29/20 08/29/20 08/29/20 04:32 04:50 04:59 WBC RBC 3.25 L Hgb 9.0 L Hct 27.0 L MCH MCHC RDW 16.1 H Lymph % (Auto) Lymph # (Auto) Seg Neutrophils % Seg Neuts % (Manual) Lymphocytes % (Manual) Seg Neutrophils # Seg Neutrophils # Man Lymphocytes # (Manual) D-Dimer ABG pH POC ABG pO2 ABG pO2 ABG HCO3 ABG Hemoglobin 8.8 L ABG Oxyhemoglobin ABG Sodium ABG Potassium ABG Glucose Oxyhemoglobin Carboxyhemoglobin Sodium Potassium Chloride Carbon Dioxide BUN Creatinine Glucose POC Glucose 201 H Lactic Acid Calcium Phosphorus Magnesium AST ALT Troponin T C-Reactive Protein Total Protein Albumin Arterial Blood Glucose Arterial Blood Ionized Calcium Urine WBC (Auto) Urine Creatinine 08/29/20 08/29/20 08/29/20 11:10 11:28 17:50 WBC RBC Hgb Hct MCH MCHC RDW Lymph % (Auto) Lymph # (Auto) Seg Neutrophils % Seg Neuts % (Manual) Lymphocytes % (Manual) Seg Neutrophils # Seg Neutrophils # Man Lymphocytes # (Manual) D-Dimer ABG pH POC ABG pO2 ABG pO2 78.7 L ABG HCO3 26.6 H ABG Hemoglobin 9.8 L ABG Oxyhemoglobin ABG Sodium ABG Potassium ABG Glucose Oxyhemoglobin 94.3 L Carboxyhemoglobin Sodium Potassium Chloride Carbon Dioxide BUN Creatinine Glucose POC Glucose 219 H 203 H Lactic Acid Calcium Phosphorus Magnesium AST ALT Troponin T C-Reactive Protein Total Protein Albumin Arterial Blood Glucose Arterial Blood Ionized Calcium Urine WBC (Auto) Urine Creatinine 08/29/20 08/29/20 08/30/20 21:31 23:28 04:14 WBC RBC Hgb Hct MCH MCHC RDW Lymph % (Auto) Lymph # (Auto) Seg Neutrophils % Seg Neuts % (Manual) Lymphocytes % (Manual) Seg Neutrophils # Seg Neutrophils # Man Lymphocytes # (Manual) D-Dimer ABG pH POC ABG pO2 ABG pO2 ABG HCO3 ABG Hemoglobin ABG Oxyhemoglobin ABG Sodium ABG Potassium ABG Glucose Oxyhemoglobin Carboxyhemoglobin Sodium 132 L Potassium Chloride 94.8 L Carbon Dioxide BUN 68 H Creatinine 3.7 H Glucose 214 H POC Glucose 204 H 215 H Lactic Acid Calcium Phosphorus Magnesium AST ALT Troponin T C-Reactive Protein Total Protein Albumin Arterial Blood Glucose Arterial Blood Ionized Calcium Urine WBC (Auto) Urine Creatinine 08/30/20 08/30/20 08/30/20 05:10 11:33 17:32 WBC RBC Hgb Hct MCH MCHC RDW Lymph % (Auto) Lymph # (Auto) Seg Neutrophils % Seg Neuts % (Manual) Lymphocytes % (Manual) Seg Neutrophils # Seg Neutrophils # Man Lymphocytes # (Manual) D-Dimer ABG pH POC ABG pO2 ABG pO2 ABG HCO3 ABG Hemoglobin ABG Oxyhemoglobin ABG Sodium ABG Potassium ABG Glucose Oxyhemoglobin Carboxyhemoglobin Sodium Potassium Chloride Carbon Dioxide BUN Creatinine Glucose POC Glucose 210 H 194 H 202 H Lactic Acid Calcium Phosphorus Magnesium AST ALT Troponin T C-Reactive Protein Total Protein Albumin Arterial Blood Glucose Arterial Blood Ionized Calcium Urine WBC (Auto) Urine Creatinine 08/30/20 08/30/20 08/30/20 21:39 23:21 Unknown WBC RBC Hgb Hct MCH MCHC RDW Lymph % (Auto) Lymph # (Auto) Seg Neutrophils % Seg Neuts % (Manual) Lymphocytes % (Manual) Seg Neutrophils # Seg Neutrophils # Man Lymphocytes # (Manual) D-Dimer ABG pH POC ABG pO2 ABG pO2 99.0 H ABG HCO3 ABG Hemoglobin 9.8 L ABG Oxyhemoglobin ABG Sodium ABG Potassium ABG Glucose Oxyhemoglobin Carboxyhemoglobin Sodium Potassium Chloride Carbon Dioxide BUN Creatinine Glucose POC Glucose 199 H 209 H Lactic Acid Calcium Phosphorus Magnesium AST ALT Troponin T C-Reactive Protein Total Protein Albumin Arterial Blood Glucose Arterial Blood Ionized Calcium Urine WBC (Auto) Urine Creatinine 08/31/20 08/31/20 08/31/20 04:10 05:19 10:57 WBC RBC Hgb Hct MCH MCHC RDW Lymph % (Auto) Lymph # (Auto) Seg Neutrophils % Seg Neuts % (Manual) Lymphocytes % (Manual) Seg Neutrophils # Seg Neutrophils # Man Lymphocytes # (Manual) D-Dimer ABG pH 7.451 H POC ABG pO2 ABG pO2 99.6 H ABG HCO3 ABG Hemoglobin 8.4 L ABG Oxyhemoglobin ABG Sodium ABG Potassium ABG Glucose Oxyhemoglobin Carboxyhemoglobin Sodium 133 L Potassium Chloride 96.4 L Carbon Dioxide BUN 74 H Creatinine 3.8 H Glucose 201 H POC Glucose 182 H Lactic Acid Calcium 7.6 L Phosphorus Magnesium AST ALT Troponin T C-Reactive Protein Total Protein Albumin Arterial Blood Glucose Arterial Blood Ionized Calcium Urine WBC (Auto) Urine Creatinine 08/31/20 08/31/20 08/31/20 10:57 12:32 17:15 WBC 11.4 H RBC 3.24 L Hgb 8.5 L Hct 26.6 L MCH 26 L MCHC RDW 15.6 H Lymph % (Auto) Lymph # (Auto) Seg Neutrophils % Seg Neuts % (Manual) Lymphocytes % (Manual) Seg Neutrophils # Seg Neutrophils # Man Lymphocytes # (Manual) D-Dimer ABG pH POC ABG pO2 ABG pO2 ABG HCO3 ABG Hemoglobin ABG Oxyhemoglobin ABG Sodium ABG Potassium ABG Glucose Oxyhemoglobin Carboxyhemoglobin Sodium Potassium Chloride Carbon Dioxide BUN Creatinine Glucose POC Glucose 217 H 203 H Lactic Acid Calcium Phosphorus Magnesium AST ALT Troponin T C-Reactive Protein Total Protein Albumin Arterial Blood Glucose Arterial Blood Ionized Calcium Urine WBC (Auto) Urine Creatinine 09/01/20 09/01/20 09/01/20 00:06 05:05 09:41 WBC RBC Hgb Hct MCH MCHC RDW Lymph % (Auto) Lymph # (Auto) Seg Neutrophils % Seg Neuts % (Manual) Lymphocytes % (Manual) Seg Neutrophils # Seg Neutrophils # Man Lymphocytes # (Manual) D-Dimer ABG pH POC ABG pO2 ABG pO2 ABG HCO3 ABG Hemoglobin ABG Oxyhemoglobin ABG Sodium ABG Potassium ABG Glucose Oxyhemoglobin Carboxyhemoglobin Sodium 134 L Potassium Chloride 95.2 L Carbon Dioxide BUN 81 H Creatinine 3.7 H Glucose 201 H POC Glucose 223 H 225 H Lactic Acid Calcium Phosphorus 4.60 H Magnesium 2.40 H AST ALT Troponin T C-Reactive Protein Total Protein Albumin Arterial Blood Glucose Arterial Blood Ionized Calcium Urine WBC (Auto) Urine Creatinine 09/01/20 09/01/2021 09:41 12:51 13:08 WBC 11.5 H RBC 3.58 L Hgb 9.2 L Hct 29.7 L MCH 26 L MCHC RDW 16.0 H Lymph % (Auto) Lymph # (Auto) Seg Neutrophils % Seg Neuts % (Manual) Lymphocytes % (Manual) Seg Neutrophils # Seg Neutrophils # Man Lymphocytes # (Manual) D-Dimer ABG pH 7.462 H POC ABG pO2 ABG pO2 ABG HCO3 ABG Hemoglobin 9.5 L ABG Oxyhemoglobin ABG Sodium 130.4 L ABG Potassium ABG Glucose 208 H Oxyhemoglobin Carboxyhemoglobin 0.4 L Sodium Potassium Chloride Carbon Dioxide BUN Creatinine Glucose POC Glucose 182 H Lactic Acid Calcium Phosphorus Magnesium AST ALT Troponin T C-Reactive Protein Total Protein Albumin Arterial Blood Glucose 208 H Arterial Blood Ionized Calcium 4.5 L Urine WBC (Auto) Urine Creatinine 09/01/20 09/01/20 09/02/20 18:34 23:14 05:22 WBC RBC Hgb Hct MCH MCHC RDW Lymph % (Auto) Lymph # (Auto) Seg Neutrophils % Seg Neuts % (Manual) Lymphocytes % (Manual) Seg Neutrophils # Seg Neutrophils # Man Lymphocytes # (Manual) D-Dimer ABG pH POC ABG pO2 ABG pO2 ABG HCO3 ABG Hemoglobin ABG Oxyhemoglobin ABG Sodium ABG Potassium ABG Glucose Oxyhemoglobin Carboxyhemoglobin Sodium Potassium Chloride Carbon Dioxide BUN Creatinine Glucose POC Glucose 183 H 181 H 178 H Lactic Acid Calcium Phosphorus Magnesium AST ALT Troponin T C-Reactive Protein Total Protein Albumin Arterial Blood Glucose Arterial Blood Ionized Calcium Urine WBC (Auto) Urine Creatinine 09/02/20 09/02/20 09/02/20 07:35 11:16 17:39 WBC RBC Hgb Hct MCH MCHC RDW Lymph % (Auto) Lymph # (Auto) Seg Neutrophils % Seg Neuts % (Manual) Lymphocytes % (Manual) Seg Neutrophils # Seg Neutrophils # Man Lymphocytes # (Manual) D-Dimer ABG pH POC ABG pO2 ABG pO2 ABG HCO3 ABG Hemoglobin ABG Oxyhemoglobin ABG Sodium ABG Potassium ABG Glucose Oxyhemoglobin Carboxyhemoglobin Sodium 135 L Potassium Chloride 96.0 L Carbon Dioxide BUN 88 H Creatinine 3.7 H Glucose 187 H POC Glucose 228 H 165 H Lactic Acid Calcium Phosphorus Magnesium AST ALT Troponin T C-Reactive Protein Total Protein Albumin Arterial Blood Glucose Arterial Blood Ionized Calcium Urine WBC (Auto) Urine Creatinine 09/02/20 09/03/20 09/03/20 23:24 05:35 08:31 WBC 18.5 H RBC 2.80 L Hgb 7.8 L Hct 22.7 L D MCH MCHC 35 H RDW 15.3 H Lymph % (Auto) Lymph # (Auto) Seg Neutrophils % Seg Neuts % (Manual) Lymphocytes % (Manual) Seg Neutrophils # Seg Neutrophils # Man Lymphocytes # (Manual) D-Dimer ABG pH POC ABG pO2 ABG pO2 ABG HCO3 ABG Hemoglobin ABG Oxyhemoglobin ABG Sodium ABG Potassium ABG Glucose Oxyhemoglobin Carboxyhemoglobin Sodium Potassium Chloride Carbon Dioxide BUN Creatinine Glucose POC Glucose 167 H 180 H Lactic Acid Calcium Phosphorus Magnesium AST ALT Troponin T C-Reactive Protein Total Protein Albumin Arterial Blood Glucose Arterial Blood Ionized Calcium Urine WBC (Auto) Urine Creatinine 09/03/20 09/03/20 09/03/20 08:31 12:02 17:05 WBC RBC Hgb Hct MCH MCHC RDW Lymph % (Auto) Lymph # (Auto) Seg Neutrophils % Seg Neuts % (Manual) Lymphocytes % (Manual) Seg Neutrophils # Seg Neutrophils # Man Lymphocytes # (Manual) D-Dimer ABG pH POC ABG pO2 ABG pO2 ABG HCO3 ABG Hemoglobin ABG Oxyhemoglobin ABG Sodium ABG Potassium ABG Glucose Oxyhemoglobin Carboxyhemoglobin Sodium 134 L Potassium Chloride 96.6 L Carbon Dioxide BUN 96 H Creatinine 3.7 H Glucose 190 H POC Glucose 156 H 150 H Lactic Acid Calcium 8.1 L Phosphorus Magnesium AST ALT Troponin T C-Reactive Protein Total Protein Albumin Arterial Blood Glucose Arterial Blood Ionized Calcium Urine WBC (Auto) Urine Creatinine 09/03/20 09/04/20 23:31 05:23 WBC RBC Hgb Hct MCH MCHC RDW Lymph % (Auto) Lymph # (Auto) Seg Neutrophils % Seg Neuts % (Manual) Lymphocytes % (Manual) Seg Neutrophils # Seg Neutrophils # Man Lymphocytes # (Manual) D-Dimer ABG pH POC ABG pO2 ABG pO2 ABG HCO3 ABG Hemoglobin ABG Oxyhemoglobin ABG Sodium ABG Potassium ABG Glucose Oxyhemoglobin Carboxyhemoglobin Sodium Potassium Chloride Carbon Dioxide BUN Creatinine Glucose POC Glucose 143 H 165 H Lactic Acid Calcium Phosphorus Magnesium AST ALT Troponin T C-Reactive Protein Total Protein Albumin Arterial Blood Glucose Arterial Blood Ionized Calcium Urine WBC (Auto) Urine Creatinine Assessment and Plan Assessment and Plan Assessment and plan: This is a 75-year-old female with CHF, OHS DM, CKD, morbid obesity, GERD, hypertension, chronic respiratory failure admitted s/p cardiac arrest #NEURO Anoxic encephalopathy -Neurology consulted, appreciate recommendations -08/25 CT head shows no CT evidence of acute abnormality -08/28 MRI brain without contrast shows abnormal diffusion and FLAIR signal abnor mality which may suggest hypoxic/ischemic brain injury, -08/30 EEG- remarkable for diffuse slowing 3-4 Hz no clear epileptif orm discharges is noted - Today she is with facial twitching left>Right face mainly Seizure can not be excluded --- will repeat EEG am tech. is off today -Keppra decrease to 500 mg BID due to elevated creatinine ,give IV, vimpat is to increse to 200 mg IV bid, Ativan as needed for facial twitching -Seizure/aspiration precautions -Prognosis over all is poor -NO mind altering medications -opens eyes spontaneously ; pupils reactive to light; neg threat; pos cough; withdrawal on right to deep pain rare; no response to deep pain on left -Pt has 8 living children- updated on plan of care Case Management following if decision is not made by family in 48 hours we will order trach/Peg Friday (09/04) #CV -NSR -S/p cardiac arrest with prolonged down time- -ddimer elevated on admit following cardiac arrest -Cardiology has seen and signed off- call if needed -08/25 echocardiogram shows LVEF 40 to 45%, LV normal size, LV systolic function mildly decreased, mild diastolic dysfunction, mildly dilated right ventricle, - pulmonary hypertension RVSP 45 mmHg -asa and statin -Hypertension -home norvasc , hydral added -Blood pressure monitoring per protocol -IV hydralazine as needed #RESP Acute hypoxic respiratory failure -Chronic respiratory insufficiency at home with 3 L oxygen via nasal cannula -remains intubated and ventilated on cpap this AM -Wean as tolerated; trend pulse ox -CCM following -VAP bundle -nebs as needed Multifocal pneumonia/ ? aspiration event -08/25 CXR shows worsening patchy bilateral pulmonary opacities -08/25 CTA chest shows no evidence of pulmonary embolism, bilateral pulmonary processes with large bilateral pleural effusions, pneumonia is a concern, pulmonary edema could be a similar appearance versus pulmonary edema # FLORIDALMA on CKD secondary to patient under nephropathy -trend and replace electrolytes as needed -Trend Cr #Urinary retention -Foreman replaced 08/31 for urinary retention #HEME Anemia -Admit H/H 8.6/27.8 #VTE prophylaxis with SCD and SQH #ID -Pneumonia -covid neg on admit #ENDO Diabetes mellitus DVT/GI prophylaxis: SCDs to bilateral lower extremities heparin subcu, PPI Disposition: ICU, need to discuss with family plan of care Lines: PIV; foreman pt. is evaluated in ICU time spent evaluating chart and lab result as well as test and exam pt. is >80 minutes
[2020-09-04] MEDS: HEPARIN 5,000 UNIT/1 ML VIAL SUB-Q SCH ×2 (10:01→21:33)
[2020-09-04] MEDS: ASPIRIN 81 MG TAB CHEW PO SCH (10:02)
[2020-09-04] MEDS: SENNOSIDES/DOCUSATE SODIUM 8.6/50 MG TAB FEEDTUBE SCH ×2 (10:02→21:31)
[2020-09-04] MEDS: METOPROLOL TARTRATE 25 MG TAB PO SCH ×2 (10:02→21:32)
[2020-09-04] MEDS: TAMSULOSIN 0.4 MG CAP PO SCH (10:03)
[2020-09-04] MEDS: amLODIPine 5 MG TAB PO SCH (10:03)
[2020-09-04 10:26] LABS: Calcium 8.8 mg/dL (8.4-10.2)
[2020-09-04] MEDS: FAMOTIDINE 20 MG TAB PO SCH (10:38)
[2020-09-04] MEDS: levETIRAcetam 500 MG in DEXTROSE 5% IN WATER 100 ML IV SCH ×2 (11:01→21:33)
[2020-09-04] MEDS: LACOSAMIDE 200 MG in SODIUM CHLORIDE 0.9% 100 ML IV SCH (11:04)
[2020-09-04] MEDS: hydrALAZINE 20 MG/1 ML INJ IV PRN (11:06)
--- NOTE | 2020-09-04 12:16 | Progress Note ---
Assessment and Plan Acute hypoxemic respiratory failure Cardiac arrest with ROSC Acute encephalopathy Multifocal pneumonia Possible bilateral pulmonary edema Congestive heart failure with an acute exacerbation Anemia Hyperkalemia Lactic acidosis Acute kidney injury Elevated serum transaminases Non-ST elevation UT Oropharyngeal dysphagia - discontinue foreman catheter - repeat EEG ordered - renally adjusted Keppra dosing - Vimpat dose increased by neurologist - will consult for trach and PEG - will consider thortacentesis thereafter depending on clinical status - continue other care as below otherwise - continue Flomax for retention - continue neurology evaluation - continue Daily SAT and SBT assessment as tolerated meantime - continue to wean supplemental oxygen for target O2 sat's > 92% acutely - VAP bundle addressed - continue lung protective strategies - continue bronchodilators with pulmonary hygiene per RT - wean per pulmonary driven protocols otherwise - continue accuchecks with glycemic control per SSI (While critically ill target blood glucose of 140-180 mg/dL; avoid hypoglycemia) - sedation prn for target RASS -1 to -2 - avoid nephrotoxins, renally dose all medications - continue to avoid benzodiazepine's, reduce the possibility of delirium - complete AB's per ID rec's - prn analgesia per CPOT score - Maintenance of sleep-wake cycle, avoid delirium - enteral nutritional support at goal rate as tolerated - G.I. & VTE prophylaxis - PT/OT/ROM exercises - continue mobility protocols for pressure ulcer prophylaxis - Monitor hemodynamics closely - continue other care per attending / other consultants - discharge planning ongoing concurrently COVID SPECIFIC INTERVENTIONS - COVID-19 PCR negative .... Re-evaluate in am & prn CONDITION: CRITICAL PROGNOSIS: GUARDED CODE STATUS: FULL CODE The high probability of a clinically significant, sudden or life-threatening deterioration of the [respiratory, cardiovascular & neurologic] system(s) required my full and direct attention, intervention and personal management. The aggregate critical care time was [36] minutes without overlap. Time includes spent on; [x] Data Review and interpretation [x] Patient assessment and monitoring of vital signs [x] Documentation [x] Medication orders and management Subjective Date of service: 09/04/20 Principal diagnosis: Ac. hypoxemic resp failure; Cardiac arrest; AMS; AE-CHF; Hyperkalemia; FLORIDALMA Interval history: Patient is seen today for: Acute hypoxemic respiratory failure; Cardiac arrest with ROSC; Acute encephalopathy; Multifocal pneumonia; pulmonary edema; AE-CHF; Hyperkalemia; FLORIDALMA; NSTEMI Seen and examined at bedside; 24hour events reviewed; nursing and respiratory care staff consulted; no adverse overnight events reported to me; resting in bed; remains on MVS; AMS is persistent; some intermittent non-lateralized twitching noted to her face but no grand-mal seizures; tolerating SBT well; no emesis or overt aspiration Objective Vital Signs - 12hr 09/04/20 09/04/20 09/04/20 00:30 01:00 01:12 Temperature Pulse Rate 59 L 60 60 Pulse Rate [ From Monitor] Respiratory 13 14 Rate Blood Pressure 126/45 122/45 122/45 O2 Sat by Pulse 100 100 100 Oximetry 09/04/20 09/04/20 09/04/20 01:30 02:01 02:31 Temperature Pulse Rate 61 57 L 57 L Pulse Rate [ From Monitor] Respiratory 23 13 12 Rate Blood Pressure 120/51 114/41 114/41 O2 Sat by Pulse 100 100 100 Oximetry 09/04/20 09/04/20 09/04/20 03:01 03:31 03:59 Temperature 98.8 F Pulse Rate 58 L 60 Pulse Rate [ From Monitor] Respiratory 12 20 Rate Blood Pressure 114/41 114/41 O2 Sat by Pulse 100 100 Oximetry 09/04/20 09/04/20 09/04/20 04:00 04:01 04:08 Temperature Pulse Rate 61 58 L 60 Pulse Rate [ 58 L From Monitor] Respiratory 12 12 Rate Blood Pressure 114/41 O2 Sat by Pulse 99 99 100 Oximetry 09/04/20 09/04/20 09/04/20 04:31 05:01 05:31 Temperature Pulse Rate 59 L 59 L 62 Pulse Rate [ From Monitor] Respiratory 14 13 17 Rate Blood Pressure 114/41 114/41 114/41 O2 Sat by Pulse 100 100 100 Oximetry 09/04/20 09/04/20 09/04/20 06:01 06:31 07:01 Temperature Pulse Rate 61 64 63 Pulse Rate [ From Monitor] Respiratory 16 15 13 Rate Blood Pressure 114/41 193/64 180/77 O2 Sat by Pulse 100 100 99 Oximetry 09/04/20 09/04/20 09/04/20 07:29 07:31 08:00 Temperature 97.9 F Pulse Rate 65 63 Pulse Rate [ From Monitor] Respiratory 13 Rate Blood Pressure 180/77 175/72 O2 Sat by Pulse 100 Oximetry 09/04/20 09/04/20 09/04/20 08:01 08:08 08:11 Temperature Pulse Rate 62 69 66 Pulse Rate [ From Monitor] Respiratory 12 25 H Rate Blood Pressure 167/61 167/61 167/61 O2 Sat by Pulse 100 100 100 Oximetry 09/04/20 09/04/20 09/04/20 08:30 09:00 09:31 Temperature Pulse Rate 67 63 67 Pulse Rate [ From Monitor] Respiratory 25 H 24 27 H Rate Blood Pressure 160/70 168/64 173/74 O2 Sat by Pulse 99 99 99 Oximetry 09/04/20 09/04/20 09/04/20 10:01 10:02 10:03 Temperature Pulse Rate 69 74 73 Pulse Rate [ From Monitor] Respiratory 27 H Rate Blood Pressure 167/72 167/72 167/72 O2 Sat by Pulse 100 Oximetry 09/04/20 09/04/20 09/04/20 10:31 11:06 11:49 Temperature Pulse Rate 76 70 62 Pulse Rate [ From Monitor] Respiratory 28 H 24 Rate Blood Pressure 197/86 214/92 154/58 O2 Sat by Pulse 100 100 Oximetry Constitutional: no acute distress, other (elderly obese female without significant patient ventilator dyssynchrony) Eyes: non-icteric ENT: oropharynx moist, oropharyngeal exudate pre (clear), other (ETT 24 cm DIMAS) Neck: supple, no lymphadenopathy, no JVD Effort: mildly labored Ascultation: Bilateral: diminished breath sounds (bases), rhonchi (scant) Percussion: Bilateral: not dull Cardiovascular: regular rate and rhythm, other (S1,S2) Gastrointestinal: normoactive bowel sounds Integumentary: normal Extremities: no cyanosis, no edema, pulses normal, no ischemia or petechiae Neurologic: pupils equal and round, unable to assess, other (encephalopathic) Psychiatric: other (unable to assess re: AMS) CBC and BMP: 09/03/20 08:31 09/04/20 09:49 ABG, PT/INR, D-dimer: ABG ABG pH 7.462 (7.320-7.450) H 09/01/20 12:51 POC ABG pCO2 39.5 mmHg (32.0-48.0) 09/01/20 12:51 ABG pCO2 36.6 mm Hg 08/31/20 04:10 POC ABG pO2 102.7 mmHg (83-108) 09/01/20 12:51 ABG pO2 99.6 mm Hg (80.0-90.0) H 08/31/20 04:10 POC ABG HCO3 27.6 09/01/20 12:51 ABG O2 Saturation 98.0 (0-100) 09/01/20 12:51 PT/INR, D-dimer D-Dimer > 96590 ng/mlDDU (0-234) H 08/25/20 11:23 Abnormal lab findings: Abnormal Labs 08/25/20 08/25/20 08/25/20 11:14 11:17 11:23 WBC 11.5 H RBC 3.22 L Hgb 8.6 L Hct 27.6 L MCH 27 L MCHC RDW 15.6 H Lymph % (Auto) Lymph # (Auto) Seg Neutrophils % Seg Neuts % (Manual) 89.0 H Lymphocytes % (Manual) 5.0 L Seg Neutrophils # Seg Neutrophils # Man 10.2 H Lymphocytes # (Manual) 0.6 L D-Dimer ABG pH 7.290 L POC ABG pO2 161.1 H ABG pO2 ABG HCO3 ABG Hemoglobin 8.9 L ABG Oxyhemoglobin 98.6 H ABG Sodium 135.2 L ABG Potassium 5.9 H ABG Glucose 210 H Oxyhemoglobin Carboxyhemoglobin 0.4 L Sodium Potassium Chloride Carbon Dioxide BUN Creatinine Glucose POC Glucose Lactic Acid Calcium Phosphorus Magnesium AST ALT Troponin T C-Reactive Protein Total Protein Albumin Arterial Blood Glucose 210 H Arterial Blood Ionized Calcium 4.4 L Urine WBC (Auto) 31.0 H Urine Creatinine 08/25/20 08/25/20 08/25/20 11:23 11:23 11:23 WBC RBC Hgb Hct MCH MCHC RDW Lymph % (Auto) Lymph # (Auto) Seg Neutrophils % Seg Neuts % (Manual) Lymphocytes % (Manual) Seg Neutrophils # Seg Neutrophils # Man Lymphocytes # (Manual) D-Dimer > 95402 H ABG pH POC ABG pO2 ABG pO2 ABG HCO3 ABG Hemoglobin ABG Oxyhemoglobin ABG Sodium ABG Potassium ABG Glucose Oxyhemoglobin Carboxyhemoglobin Sodium Potassium 6.4 H* Chloride Carbon Dioxide 21 L BUN 52 H Creatinine 3.5 H Glucose 194 H POC Glucose Lactic Acid 3.30 H* Calcium 8.1 L Phosphorus Magnesium AST 103 H ALT 77 H Troponin T 0.057 H C-Reactive Protein Total Protein 5.8 L Albumin 3.4 L Arterial Blood Glucose Arterial Blood Ionized Calcium Urine WBC (Auto) Urine Creatinine 08/25/20 08/25/20 08/25/20 13:51 15:45 20:34 WBC RBC Hgb Hct MCH MCHC RDW Lymph % (Auto) Lymph # (Auto) Seg Neutrophils % Seg Neuts % (Manual) Lymphocytes % (Manual) Seg Neutrophils # Seg Neutrophils # Man Lymphocytes # (Manual) D-Dimer ABG pH POC ABG pO2 66.3 L ABG pO2 ABG HCO3 ABG Hemoglobin 9.1 L ABG Oxyhemoglobin 92.5 L ABG Sodium ABG Potassium ABG Glucose 225 H Oxyhemoglobin Carboxyhemoglobin Sodium Potassium Chloride Carbon Dioxide BUN Creatinine Glucose POC Glucose 188 H 233 H Lactic Acid Calcium Phosphorus Magnesium AST ALT Troponin T C-Reactive Protein Total Protein Albumin Arterial Blood Glucose 225 H Arterial Blood Ionized Calcium 4.4 L Urine WBC (Auto) Urine Creatinine 08/26/20 08/26/20 08/26/20 04:14 05:04 05:04 WBC 17.9 H RBC 3.05 L Hgb 8.3 L Hct 25.6 L MCH 27 L MCHC RDW 15.3 H Lymph % (Auto) Lymph # (Auto) Seg Neutrophils % Seg Neuts % (Manual) 96.0 H Lymphocytes % (Manual) 1.0 L Seg Neutrophils # Seg Neutrophils # Man 17.2 H Lymphocytes # (Manual) 0.2 L D-Dimer ABG pH POC ABG pO2 131.3 H ABG pO2 ABG HCO3 ABG Hemoglobin 8.6 L ABG Oxyhemoglobin 98.2 H ABG Sodium ABG Potassium ABG Glucose 182 H Oxyhemoglobin Carboxyhemoglobin 0.2 L Sodium Potassium Chloride Carbon Dioxide BUN 56 H Creatinine 3.4 H Glucose 187 H POC Glucose Lactic Acid Calcium 8.3 L Phosphorus Magnesium AST 54 H ALT 57 H Troponin T C-Reactive Protein Total Protein 5.4 L Albumin 2.9 L Arterial Blood Glucose 182 H Arterial Blood Ionized Calcium 4.3 L Urine WBC (Auto) Urine Creatinine 08/26/20 08/26/20 08/26/20 05:40 07:36 11:54 WBC RBC Hgb Hct MCH MCHC RDW Lymph % (Auto) Lymph # (Auto) Seg Neutrophils % Seg Neuts % (Manual) Lymphocytes % (Manual) Seg Neutrophils # Seg Neutrophils # Man Lymphocytes # (Manual) D-Dimer ABG pH POC ABG pO2 ABG pO2 ABG HCO3 ABG Hemoglobin ABG Oxyhemoglobin ABG Sodium ABG Potassium ABG Glucose Oxyhemoglobin Carboxyhemoglobin Sodium Potassium Chloride Carbon Dioxide BUN Creatinine Glucose POC Glucose 179 H 171 H 190 H Lactic Acid Calcium Phosphorus Magnesium AST ALT Troponin T C-Reactive Protein Total Protein Albumin Arterial Blood Glucose Arterial Blood Ionized Calcium Urine WBC (Auto) Urine Creatinine 08/26/20 08/26/20 08/26/20 15:14 17:00 18:50 WBC RBC Hgb Hct MCH MCHC RDW Lymph % (Auto) Lymph # (Auto) Seg Neutrophils % Seg Neuts % (Manual) Lymphocytes % (Manual) Seg Neutrophils # Seg Neutrophils # Man Lymphocytes # (Manual) D-Dimer ABG pH POC ABG pO2 ABG pO2 ABG HCO3 ABG Hemoglobin ABG Oxyhemoglobin ABG Sodium ABG Potassium ABG Glucose Oxyhemoglobin Carboxyhemoglobin Sodium Potassium Chloride Carbon Dioxide BUN Creatinine Glucose POC Glucose 158 H Lactic Acid Calcium Phosphorus Magnesium AST ALT Troponin T C-Reactive Protein 7.80 H Total Protein Albumin Arterial Blood Glucose Arterial Blood Ionized Calcium Urine WBC (Auto) Urine Creatinine 67.4 H 08/26/20 08/27/20 08/27/20 22:01 04:10 05:12 WBC RBC Hgb Hct MCH MCHC RDW Lymph % (Auto) Lymph # (Auto) Seg Neutrophils % Seg Neuts % (Manual) Lymphocytes % (Manual) Seg Neutrophils # Seg Neutrophils # Man Lymphocytes # (Manual) D-Dimer ABG pH 7.454 H POC ABG pO2 74.9 L ABG pO2 ABG HCO3 ABG Hemoglobin 7.9 L ABG Oxyhemoglobin ABG Sodium ABG Potassium ABG Glucose 117 H Oxyhemoglobin Carboxyhemoglobin Sodium Potassium Chloride Carbon Dioxide BUN Creatinine Glucose POC Glucose 122 H 117 H Lactic Acid Calcium Phosphorus Magnesium AST ALT Troponin T C-Reactive Protein Total Protein Albumin Arterial Blood Glucose 117 H Arterial Blood Ionized Calcium 4.4 L Urine WBC (Auto) Urine Creatinine 08/27/20 08/27/20 08/27/20 07:24 07:24 11:08 WBC 12.7 H RBC 2.92 L Hgb 8.1 L Hct 24.4 L MCH MCHC RDW 15.4 H Lymph % (Auto) 5.9 L Lymph # (Auto) 0.8 L Seg Neutrophils % 86.9 H Seg Neuts % (Manual) Lymphocytes % (Manual) Seg Neutrophils # 11.0 H Seg Neutrophils # Man Lymphocytes # (Manual) D-Dimer ABG pH POC ABG pO2 ABG pO2 ABG HCO3 ABG Hemoglobin ABG Oxyhemoglobin ABG Sodium ABG Potassium ABG Glucose Oxyhemoglobin Carboxyhemoglobin Sodium Potassium Chloride Carbon Dioxide BUN 60 H Creatinine 3.6 H Glucose 135 H POC Glucose 139 H Lactic Acid Calcium Phosphorus Magnesium AST ALT Troponin T C-Reactive Protein Total Protein 5.3 L Albumin 2.6 L Arterial Blood Glucose Arterial Blood Ionized Calcium Urine WBC (Auto) Urine Creatinine 08/27/20 08/27/20 08/27/20 11:19 17:31 23:25 WBC RBC Hgb Hct MCH MCHC RDW Lymph % (Auto) Lymph # (Auto) Seg Neutrophils % Seg Neuts % (Manual) Lymphocytes % (Manual) Seg Neutrophils # Seg Neutrophils # Man Lymphocytes # (Manual) D-Dimer ABG pH POC ABG pO2 ABG pO2 ABG HCO3 ABG Hemoglobin ABG Oxyhemoglobin ABG Sodium ABG Potassium ABG Glucose Oxyhemoglobin Carboxyhemoglobin Sodium Potassium Chloride Carbon Dioxide BUN Creatinine Glucose POC Glucose 143 H 140 H 123 H Lactic Acid Calcium Phosphorus Magnesium AST ALT Troponin T C-Reactive Protein Total Protein Albumin Arterial Blood Glucose Arterial Blood Ionized Calcium Urine WBC (Auto) Urine Creatinine 08/28/20 08/28/20 08/28/20 03:50 04:19 04:19 WBC RBC 2.80 L Hgb 7.8 L Hct 23.6 L MCH MCHC RDW 15.8 H Lymph % (Auto) Lymph # (Auto) Seg Neutrophils % Seg Neuts % (Manual) Lymphocytes % (Manual) Seg Neutrophils # Seg Neutrophils # Man Lymphocytes # (Manual) D-Dimer ABG pH 7.329 L POC ABG pO2 ABG pO2 76.7 L ABG HCO3 27.0 H ABG Hemoglobin 7.5 L ABG Oxyhemoglobin ABG Sodium ABG Potassium ABG Glucose Oxyhemoglobin 93.6 L Carboxyhemoglobin Sodium 135 L Potassium Chloride Carbon Dioxide BUN 64 H Creatinine 3.8 H Glucose 143 H POC Glucose Lactic Acid Calcium 8.0 L Phosphorus Magnesium AST ALT Troponin T C-Reactive Protein Total Protein 4.8 L Albumin 2.4 L Arterial Blood Glucose Arterial Blood Ionized Calcium Urine WBC (Auto) Urine Creatinine 08/28/20 08/28/20 08/28/20 05:35 11:22 17:18 WBC RBC Hgb Hct MCH MCHC RDW Lymph % (Auto) Lymph # (Auto) Seg Neutrophils % Seg Neuts % (Manual) Lymphocytes % (Manual) Seg Neutrophils # Seg Neutrophils # Man Lymphocytes # (Manual) D-Dimer ABG pH POC ABG pO2 ABG pO2 ABG HCO3 ABG Hemoglobin ABG Oxyhemoglobin ABG Sodium ABG Potassium ABG Glucose Oxyhemoglobin Carboxyhemoglobin Sodium Potassium Chloride Carbon Dioxide BUN Creatinine Glucose POC Glucose 147 H 182 H 216 H Lactic Acid Calcium Phosphorus Magnesium AST ALT Troponin T C-Reactive Protein Total Protein Albumin Arterial Blood Glucose Arterial Blood Ionized Calcium Urine WBC (Auto) Urine Creatinine 08/28/20 08/28/20 08/29/20 21:04 23:20 04:32 WBC RBC Hgb Hct MCH MCHC RDW Lymph % (Auto) Lymph # (Auto) Seg Neutrophils % Seg Neuts % (Manual) Lymphocytes % (Manual) Seg Neutrophils # Seg Neutrophils # Man Lymphocytes # (Manual) D-Dimer ABG pH POC ABG pO2 ABG pO2 ABG HCO3 ABG Hemoglobin ABG Oxyhemoglobin ABG Sodium ABG Potassium ABG Glucose Oxyhemoglobin Carboxyhemoglobin Sodium 135 L Potassium Chloride 96.0 L Carbon Dioxide BUN 67 H Creatinine 3.8 H Glucose 200 H POC Glucose 204 H 242 H Lactic Acid Calcium 8.2 L Phosphorus Magnesium AST ALT Troponin T C-Reactive Protein Total Protein Albumin Arterial Blood Glucose Arterial Blood Ionized Calcium Urine WBC (Auto) Urine Creatinine 08/29/20 08/29/20 08/29/20 04:32 04:50 04:59 WBC RBC 3.25 L Hgb 9.0 L Hct 27.0 L MCH MCHC RDW 16.1 H Lymph % (Auto) Lymph # (Auto) Seg Neutrophils % Seg Neuts % (Manual) Lymphocytes % (Manual) Seg Neutrophils # Seg Neutrophils # Man Lymphocytes # (Manual) D-Dimer ABG pH POC ABG pO2 ABG pO2 ABG HCO3 ABG Hemoglobin 8.8 L ABG Oxyhemoglobin ABG Sodium ABG Potassium ABG Glucose Oxyhemoglobin Carboxyhemoglobin Sodium Potassium Chloride Carbon Dioxide BUN Creatinine Glucose POC Glucose 201 H Lactic Acid Calcium Phosphorus Magnesium AST ALT Troponin T C-Reactive Protein Total Protein Albumin Arterial Blood Glucose Arterial Blood Ionized Calcium Urine WBC (Auto) Urine Creatinine 08/29/20 08/29/20 08/29/20 11:10 11:28 17:50 WBC RBC Hgb Hct MCH MCHC RDW Lymph % (Auto) Lymph # (Auto) Seg Neutrophils % Seg Neuts % (Manual) Lymphocytes % (Manual) Seg Neutrophils # Seg Neutrophils # Man Lymphocytes # (Manual) D-Dimer ABG pH POC ABG pO2 ABG pO2 78.7 L ABG HCO3 26.6 H ABG Hemoglobin 9.8 L ABG Oxyhemoglobin ABG Sodium ABG Potassium ABG Glucose Oxyhemoglobin 94.3 L Carboxyhemoglobin Sodium Potassium Chloride Carbon Dioxide BUN Creatinine Glucose POC Glucose 219 H 203 H Lactic Acid Calcium Phosphorus Magnesium AST ALT Troponin T C-Reactive Protein Total Protein Albumin Arterial Blood Glucose Arterial Blood Ionized Calcium Urine WBC (Auto) Urine Creatinine 08/29/20 08/29/20 08/30/20 21:31 23:28 04:14 WBC RBC Hgb Hct MCH MCHC RDW Lymph % (Auto) Lymph # (Auto) Seg Neutrophils % Seg Neuts % (Manual) Lymphocytes % (Manual) Seg Neutrophils # Seg Neutrophils # Man Lymphocytes # (Manual) D-Dimer ABG pH POC ABG pO2 ABG pO2 ABG HCO3 ABG Hemoglobin ABG Oxyhemoglobin ABG Sodium ABG Potassium ABG Glucose Oxyhemoglobin Carboxyhemoglobin Sodium 132 L Potassium Chloride 94.8 L Carbon Dioxide BUN 68 H Creatinine 3.7 H Glucose 214 H POC Glucose 204 H 215 H Lactic Acid Calcium Phosphorus Magnesium AST ALT Troponin T C-Reactive Protein Total Protein Albumin Arterial Blood Glucose Arterial Blood Ionized Calcium Urine WBC (Auto) Urine Creatinine 08/30/20 08/30/20 08/30/20 05:10 11:33 17:32 WBC RBC Hgb Hct MCH MCHC RDW Lymph % (Auto) Lymph # (Auto) Seg Neutrophils % Seg Neuts % (Manual) Lymphocytes % (Manual) Seg Neutrophils # Seg Neutrophils # Man Lymphocytes # (Manual) D-Dimer ABG pH POC ABG pO2 ABG pO2 ABG HCO3 ABG Hemoglobin ABG Oxyhemoglobin ABG Sodium ABG Potassium ABG Glucose Oxyhemoglobin Carboxyhemoglobin Sodium Potassium Chloride Carbon Dioxide BUN Creatinine Glucose POC Glucose 210 H 194 H 202 H Lactic Acid Calcium Phosphorus Magnesium AST ALT Troponin T C-Reactive Protein Total Protein Albumin Arterial Blood Glucose Arterial Blood Ionized Calcium Urine WBC (Auto) Urine Creatinine 08/30/20 08/30/20 08/30/20 21:39 23:21 Unknown WBC RBC Hgb Hct MCH MCHC RDW Lymph % (Auto) Lymph # (Auto) Seg Neutrophils % Seg Neuts % (Manual) Lymphocytes % (Manual) Seg Neutrophils # Seg Neutrophils # Man Lymphocytes # (Manual) D-Dimer ABG pH POC ABG pO2 ABG pO2 99.0 H ABG HCO3 ABG Hemoglobin 9.8 L ABG Oxyhemoglobin ABG Sodium ABG Potassium ABG Glucose Oxyhemoglobin Carboxyhemoglobin Sodium Potassium Chloride Carbon Dioxide BUN Creatinine Glucose POC Glucose 199 H 209 H Lactic Acid Calcium Phosphorus Magnesium AST ALT Troponin T C-Reactive Protein Total Protein Albumin Arterial Blood Glucose Arterial Blood Ionized Calcium Urine WBC (Auto) Urine Creatinine 08/31/20 08/31/20 08/31/20 04:10 05:19 10:57 WBC RBC Hgb Hct MCH MCHC RDW Lymph % (Auto) Lymph # (Auto) Seg Neutrophils % Seg Neuts % (Manual) Lymphocytes % (Manual) Seg Neutrophils # Seg Neutrophils # Man Lymphocytes # (Manual) D-Dimer ABG pH 7.451 H POC ABG pO2 ABG pO2 99.6 H ABG HCO3 ABG Hemoglobin 8.4 L ABG Oxyhemoglobin ABG Sodium ABG Potassium ABG Glucose Oxyhemoglobin Carboxyhemoglobin Sodium 133 L Potassium Chloride 96.4 L Carbon Dioxide BUN 74 H Creatinine 3.8 H Glucose 201 H POC Glucose 182 H Lactic Acid Calcium 7.6 L Phosphorus Magnesium AST ALT Troponin T C-Reactive Protein Total Protein Albumin Arterial Blood Glucose Arterial Blood Ionized Calcium Urine WBC (Auto) Urine Creatinine 08/31/20 08/31/20 08/31/20 10:57 12:32 17:15 WBC 11.4 H RBC 3.24 L Hgb 8.5 L Hct 26.6 L MCH 26 L MCHC RDW 15.6 H Lymph % (Auto) Lymph # (Auto) Seg Neutrophils % Seg Neuts % (Manual) Lymphocytes % (Manual) Seg Neutrophils # Seg Neutrophils # Man Lymphocytes # (Manual) D-Dimer ABG pH POC ABG pO2 ABG pO2 ABG HCO3 ABG Hemoglobin ABG Oxyhemoglobin ABG Sodium ABG Potassium ABG Glucose Oxyhemoglobin Carboxyhemoglobin Sodium Potassium Chloride Carbon Dioxide BUN Creatinine Glucose POC Glucose 217 H 203 H Lactic Acid Calcium Phosphorus Magnesium AST ALT Troponin T C-Reactive Protein Total Protein Albumin Arterial Blood Glucose Arterial Blood Ionized Calcium Urine WBC (Auto) Urine Creatinine 09/01/20 09/01/20 09/01/20 00:06 05:05 09:41 WBC RBC Hgb Hct MCH MCHC RDW Lymph % (Auto) Lymph # (Auto) Seg Neutrophils % Seg Neuts % (Manual) Lymphocytes % (Manual) Seg Neutrophils # Seg Neutrophils # Man Lymphocytes # (Manual) D-Dimer ABG pH POC ABG pO2 ABG pO2 ABG HCO3 ABG Hemoglobin ABG Oxyhemoglobin ABG Sodium ABG Potassium ABG Glucose Oxyhemoglobin Carboxyhemoglobin Sodium 134 L Potassium Chloride 95.2 L Carbon Dioxide BUN 81 H Creatinine 3.7 H Glucose 201 H POC Glucose 223 H 225 H Lactic Acid Calcium Phosphorus 4.60 H Magnesium 2.40 H AST ALT Troponin T C-Reactive Protein Total Protein Albumin Arterial Blood Glucose Arterial Blood Ionized Calcium Urine WBC (Auto) Urine Creatinine 09/01/20 09/01/20 09/01/20 09:41 12:51 13:08 WBC 11.5 H RBC 3.58 L Hgb 9.2 L Hct 29.7 L MCH 26 L MCHC RDW 16.0 H Lymph % (Auto) Lymph # (Auto) Seg Neutrophils % Seg Neuts % (Manual) Lymphocytes % (Manual) Seg Neutrophils # Seg Neutrophils # Man Lymphocytes # (Manual) D-Dimer ABG pH 7.462 H POC ABG pO2 ABG pO2 ABG HCO3 ABG Hemoglobin 9.5 L ABG Oxyhemoglobin ABG Sodium 130.4 L ABG Potassium ABG Glucose 208 H Oxyhemoglobin Carboxyhemoglobin 0.4 L Sodium Potassium Chloride Carbon Dioxide BUN Creatinine Glucose POC Glucose 182 H Lactic Acid Calcium Phosphorus Magnesium AST ALT Troponin T C-Reactive Protein Total Protein Albumin Arterial Blood Glucose 208 H Arterial Blood Ionized Calcium 4.5 L Urine WBC (Auto) Urine Creatinine 09/01/20 09/01/20 09/02/20 18:34 23:14 05:22 WBC RBC Hgb Hct MCH MCHC RDW Lymph % (Auto) Lymph # (Auto) Seg Neutrophils % Seg Neuts % (Manual) Lymphocytes % (Manual) Seg Neutrophils # Seg Neutrophils # Man Lymphocytes # (Manual) D-Dimer ABG pH POC ABG pO2 ABG pO2 ABG HCO3 ABG Hemoglobin ABG Oxyhemoglobin ABG Sodium ABG Potassium ABG Glucose Oxyhemoglobin Carboxyhemoglobin Sodium Potassium Chloride Carbon Dioxide BUN Creatinine Glucose POC Glucose 183 H 181 H 178 H Lactic Acid Calcium Phosphorus Magnesium AST ALT Troponin T C-Reactive Protein Total Protein Albumin Arterial Blood Glucose Arterial Blood Ionized Calcium Urine WBC (Auto) Urine Creatinine 09/02/20 09/02/20 09/02/20 07:35 11:16 17:39 WBC RBC Hgb Hct MCH MCHC RDW Lymph % (Auto) Lymph # (Auto) Seg Neutrophils % Seg Neuts % (Manual) Lymphocytes % (Manual) Seg Neutrophils # Seg Neutrophils # Man Lymphocytes # (Manual) D-Dimer ABG pH POC ABG pO2 ABG pO2 ABG HCO3 ABG Hemoglobin ABG Oxyhemoglobin ABG Sodium ABG Potassium ABG Glucose Oxyhemoglobin Carboxyhemoglobin Sodium 135 L Potassium Chloride 96.0 L Carbon Dioxide BUN 88 H Creatinine 3.7 H Glucose 187 H POC Glucose 228 H 165 H Lactic Acid Calcium Phosphorus Magnesium AST ALT Troponin T C-Reactive Protein Total Protein Albumin Arterial Blood Glucose Arterial Blood Ionized Calcium Urine WBC (Auto) Urine Creatinine 09/02/20 09/03/20 09/03/20 23:24 05:35 08:31 WBC 18.5 H RBC 2.80 L Hgb 7.8 L Hct 22.7 L D MCH MCHC 35 H RDW 15.3 H Lymph % (Auto) Lymph # (Auto) Seg Neutrophils % Seg Neuts % (Manual) Lymphocytes % (Manual) Seg Neutrophils # Seg Neutrophils # Man Lymphocytes # (Manual) D-Dimer ABG pH POC ABG pO2 ABG pO2 ABG HCO3 ABG Hemoglobin ABG Oxyhemoglobin ABG Sodium ABG Potassium ABG Glucose Oxyhemoglobin Carboxyhemoglobin Sodium Potassium Chloride Carbon Dioxide BUN Creatinine Glucose POC Glucose 167 H 180 H Lactic Acid Calcium Phosphorus Magnesium AST ALT Troponin T C-Reactive Protein Total Protein Albumin Arterial Blood Glucose Arterial Blood Ionized Calcium Urine WBC (Auto) Urine Creatinine 09/03/20 09/03/20 09/03/20 08:31 12:02 17:05 WBC RBC Hgb Hct MCH MCHC RDW Lymph % (Auto) Lymph # (Auto) Seg Neutrophils % Seg Neuts % (Manual) Lymphocytes % (Manual) Seg Neutrophils # Seg Neutrophils # Man Lymphocytes # (Manual) D-Dimer ABG pH POC ABG pO2 ABG pO2 ABG HCO3 ABG Hemoglobin ABG Oxyhemoglobin ABG Sodium ABG Potassium ABG Glucose Oxyhemoglobin Carboxyhemoglobin Sodium 134 L Potassium Chloride 96.6 L Carbon Dioxide BUN 96 H Creatinine 3.7 H Glucose 190 H POC Glucose 156 H 150 H Lactic Acid Calcium 8.1 L Phosphorus Magnesium AST ALT Troponin T C-Reactive Protein Total Protein Albumin Arterial Blood Glucose Arterial Blood Ionized Calcium Urine WBC (Auto) Urine Creatinine 09/03/20 09/04/20 09/04/20 23:31 05:23 09:49 WBC RBC Hgb Hct MCH MCHC RDW Lymph % (Auto) Lymph # (Auto) Seg Neutrophils % Seg Neuts % (Manual) Lymphocytes % (Manual) Seg Neutrophils # Seg Neutrophils # Man Lymphocytes # (Manual) D-Dimer ABG pH POC ABG pO2 ABG pO2 ABG HCO3 ABG Hemoglobin ABG Oxyhemoglobin ABG Sodium ABG Potassium ABG Glucose Oxyhemoglobin Carboxyhemoglobin Sodium Potassium Chloride 97.9 L Carbon Dioxide BUN 98 H Creatinine 4.0 H Glucose 171 H POC Glucose 143 H 165 H Lactic Acid Calcium Phosphorus Magnesium AST ALT Troponin T C-Reactive Protein Total Protein Albumin Arterial Blood Glucose Arterial Blood Ionized Calcium Urine WBC (Auto) Urine Creatinine 09/04/20 12:05 WBC RBC Hgb Hct MCH MCHC RDW Lymph % (Auto) Lymph # (Auto) Seg Neutrophils % Seg Neuts % (Manual) Lymphocytes % (Manual) Seg Neutrophils # Seg Neutrophils # Man Lymphocytes # (Manual) D-Dimer ABG pH POC ABG pO2 ABG pO2 ABG HCO3 ABG Hemoglobin ABG Oxyhemoglobin ABG Sodium ABG Potassium ABG Glucose Oxyhemoglobin Carboxyhemoglobin Sodium Potassium Chloride Carbon Dioxide BUN Creatinine Glucose POC Glucose 200 H Lactic Acid Calcium Phosphorus Magnesium AST ALT Troponin T C-Reactive Protein Total Protein Albumin Arterial Blood Glucose Arterial Blood Ionized Calcium Urine WBC (Auto) Urine Creatinine Allied health notes reviewed: nursing
--- NOTE | 2020-09-04 16:32 | Progress Note ---
Assessment and Plan Assessment and plan: This is a 75-year-old female with CHF, OHS DM, CKD, morbid obesity, GERD, hypertension, chronic respiratory failure admitted s/p cardiac arrest NEURO Anoxic encephalopathy -Neurology consulted, appreciate recommendations -08/[address] head shows no CT evidence of acute abnormality -08/28 MRI brain without contrast shows abnormal diffusion and FLAIR signal abnormality which may suggest hypoxic/ischemic brain injury, hypoglycemic encephalopathy and perhaps Creutsfeldt-Cornelius disease otherwise no focal mass, hemorrhage or hydrocephalus seen -08/30 EEG- results pending Seizure -Keppra 500 mg mg BID , vimpat, Ativan as needed for facial twitching -Seizure/aspiration precautions -per neuro prognosis poor based on MRI -NO mind altering medications - to allow for neuro assessment and brain function -opens eyes spontaneously ; pupils not reactive to light; neg threat; pos cough; withdrawal on right to deep pain; no response to deep pain on left Pt has 8 living children- updated on plan of care Case Management following if decision is not made by family we will order trach/Peg consult to surgery Friday (09/04) CV SR S/p cardiac arrest with prolonged down time- see ER note -ddimer elevated on admit following cardiac arrest -Cardiology has seen and signed off- call if needed -08/25 echocardiogram shows LVEF 40 to 45%, LV normal size, LV systolic function mildly decreased, mild diastolic dysfunction, mildly dilated right ventricle, pulmonary hypertension RVSP 45 mmHg -asa and statin Hypertension -home norvasc , hydral added -Blood pressure monitoring per protocol -IV hydralazine as needed RESP Acute hypoxic respiratory failure -Chronic respiratory insufficiency at home with 3 L oxygen via nasal cannula -remains intubated and ventilated on cpap this AM -Wean as tolerated; trend pulse ox -CCM following -VAP bundle -nebs as needed Multifocal pneumonia/ ? aspiration event -08/25 CXR shows worsening patchy bilateral pulmonary opacities -08/25 CTA chest shows no evidence of pulmonary embolism, bilateral pulmonary processes with large bilateral pleural effusions, pneumonia is a concern, pulmonary edema could be a similar appearance versus pulmonary edema GI Protein Calorie Malnutrition TF per nutrition bowel reg. FLORIDALMA on CKD secondary to patient under nephropathy -Nephrology consulted, patient recommendations -Daily weights -Avoid nephrotoxic medications; avoid NITIN/ARB -bladder scan with high residuals requiring frequent intermittent caths so foreman replaced at 1230 -trend and replace electrolytes as needed -Trend Cr Urinary retention -Foreman replaced 08/31 for urinary retention HEME Anemia -Admit H/H 8.6/27.8 -Transfuse for hemoglobin less than 7 -Trend CBC VTE prophylaxis with SCD and SQH ID Pneumonia -trend WBC and temp curve -afebrile -trend cultures -covid neg on admit ENDO Diabetes mellitus -SSI -Lantus, increase as needed -Accu-Cheks every 6h -avoid hypoglycemia -hx obesity DVT/GI prophylaxis: SCDs to bilateral lower extremities heparin subcu, PPI Disposition: ICU, need to discuss with family plan of care, general surgery was consulted for PEG and trach, patient is still making decisions on patient's care. Lines: PIV; foreman The high probability of a clinically significant, sudden or life threatening deterioration of the [cardiac, pulmonary, neuro, renal, infectious disease] system(s) required my full and direct attention, intervention and personal management. The aggregate critical care time was [35] minutes. This time is in addition to time spent performing reported procedures but includes the following: [x] Data Review and interpretation [x] Patient assessment and monitoring of vital signs [x] Documentation [x] Medication orders and management History Interval history: This is a 69-year-old female with OHS, DM, CKD stage IV, morbid obesity CHF, GERD, HTN, chronic respiratory failure on 3 L of home oxygen via nasal cannula who presented to the emergency department on 08/25 after being found down unresponsive at 0950 hours by family and upon EMS arrival she was unresponsive and asystolic arrest. Patient was treated with ACLS protocol with eventual ROSC after at least 15 minutes of ACLS and patient was transported to [facility]. In the emergency department patient was found to have acute hypoxic respiratory failure and subsequently intubated on vasopressor support, she underwent a CXR which showed bilateral pneumonia and exam is consistent with SIRS. CCM and cardiology were consulted and patient was admitted to the hospital service with acute hypoxic respiratory failure, anoxic encephalopathy, s/p cardiac arrest, multifocal pneumonia, FLORIDALMA on CKD. 08/26/20 patient is seen and examined. Patient is on vent. WBC 17.9 and hemoglobin 8.3 hematocrit 25.6. Patient may have 1 episode of questionable seizure. Patient BUN is 56 creatinine 3.4. Will consult nephrology. We also start the patient on Rocephin 2 g IV daily and Zithromax. Aspirin 81 mg p.o. daily and Lipitor. Patient is having echocardiogram. Cardiology and critical care will see the patient as consult tension. Continue current management. We have started on NG tube feeding and consult nutrition for evaluation. Recheck CBC BMP in the morning. Case discussed with daughter Leena [phone] 08/27: Patient remains on full ventilatory support, considering concern for seizure yesterday under the circumstance of out of hospital cardiac arrest, and concern for anoxic encephalopathy, will proceed with Neurology consultation. 08/28: At the time my examination patient sedation of propofol 30 and fentanyl 1 was being held and she was on CMV tidal and 450, rate of 18, PEEP of 6 and FiO2 of 35%. Neurology was consulted. I updated the patient's daughter Leena Payton at bedside and told her of the pending tests the neurologist has ordered. 08/29: Increase in Lantus due to persistent hypoglycemia, chest ultrasound ordered for possible thoracentesis by [facility], MRI brain pending. Remove Foreman catheter if okay with nephrology. Increase in beta-skylar by [facility] however cardiology decreased hydralazine per neurology recommendations. At the time my examination patient was on CPAP trial pressure support of 12, PEEP of 6 and 35% FiO2. RT obtain an ABG we will continue CPAP as tolerated. 08/28: No acute events overnight. Noted to have seizure, addition of vimpat 08/29: Chest US noted to have pleural effusions, cxr shows pulmonary edema, nephro ordered lasix x1. CCM and nephro had conversation son at bedside. Surgery consulted for trach/peg. [facility] plans for IR thora if family decides aggressive care 08/30 No acute overnight events 08/31: given 80mg lasix by nephro, increase in lantus, Dulcolax suppository given for no recorded BM for 5 to 6 days 72: Patient did not have a further response to 80 mg of Lasix yesterday, no acute events reported overnight, patient is having several loose BMs 09/02: Patient was having facial twitching this morning, 1 mg of Ativan was given to the patient, Keppra was increased. No family at the bedside. 09/04: Patient continues to have facial twitching, neurology has made adjustments to medications for seizure control, spoke with critical care and the son at the bedside, family still deciding on the final route of care Hospitalist Physical - Physical exam Narrative exam: General appearance: no acute distress, well-nourished Respiratory: Intubated, crackles and rales heard bilaterally Cardiovascular: Regular rate/rhythm, Normal S1 & S2. No gallop, rub Extremities: no ischemia, No edema, normal temperature, normal color, Full ROM Abdominal: soft, no tenderness, non-distended, normal bowel sounds Integumentary: Present: clear, warm, dry no wounds, no erythema noted Neurologic: No neurological response, pupils not reactive, mild facial twitching - Constitutional Vitals: Temp Pulse Resp BP Pulse Ox 97.5 F L 64 22 136/58 99 09/04/20 12:00 09/04/20 15:00 09/04/20 15:00 09/04/20 15:00 09/04/20 15:00 HEART Score - HEART Score Troponin: Troponin T 0.057 ng/mL (0.00-0.029) H 08/25/20 11:23 Results - Labs CBC & Chem 7: 09/03/20 08:31 09/04/20 09:49 Labs: Laboratory Last Values WBC 18.5 K/mm3 (4.5-11.0) H 09/03/20 08:31 RBC 2.80 M/mm3 (3.65-5.03) L 09/03/20 08:31 Hgb 7.8 gm/dl (10.1-14.3) L 09/03/20 08:31 Hct 22.7 % (30.3-42.9) L D 09/03/20 08:31 MCV 81 fl (79-97) 09/03/20 08:31 MCH 28 pg (28-32) 09/03/20 08:31 MCHC 35 % (30-34) H 09/03/20 08:31 RDW 15.3 % (13.2-15.2) H 09/03/20 08:31 Plt Count 277 K/mm3 (140-440) 09/03/20 08:31 Lymph % (Auto) 5.9 % (13.4-35.0) L 08/27/20 07:24 Coffey % (Auto) 4.6 % (0.0-7.3) 08/27/20 07:24 Eos % (Auto) 2.2 % (0.0-4.3) 08/27/20 07:24 Baso % (Auto) 0.4 % (0.0-1.8) 08/27/20 07:24 Lymph # (Auto) 0.8 K/mm3 (1.2-5.4) L 08/27/20 07:24 Coffey # (Auto) 0.6 K/mm3 (0.0-0.8) 08/27/20 07:24 Eos # (Auto) 0.3 K/mm3 (0.0-0.4) 08/27/20 07:24 Baso # (Auto) 0.0 K/mm3 (0.0-0.1) 08/27/20 07:24 Add Manual Diff Complete 08/26/20 05:04 Total Counted 100 08/26/20 05:04 Seg Neutrophils % 86.9 % (40.0-70.0) H 08/27/20 07:24 Seg Neuts % (Manual) 96.0 % (40.0-70.0) H 08/26/20 05:04 Band Neutrophils % 2.0 % 08/25/20 11:23 Lymphocytes % (Manual) 1.0 % (13.4-35.0) L 08/26/20 05:04 Monocytes % (Manual) 3.0 % (0.0-7.3) 08/26/20 05:04 Eosinophils % (Manual) 3.0 % (0.0-4.3) 08/25/20 11:23 Metamyelocytes % 1.0 % 08/25/20 11:23 Nucleated RBC % Not Reportable 08/26/20 05:04 Seg Neutrophils # 11.0 K/mm3 (1.8-7.7) H 08/27/20 07:24 Seg Neutrophils # Man 17.2 K/mm3 (1.8-7.7) H 08/26/20 05:04 Band Neutrophils # 0.0 K/mm3 08/26/20 05:04 Lymphocytes # (Manual) 0.2 K/mm3 (1.2-5.4) L 08/26/20 05:04 Abs React Lymphs (Man) 0.0 K/mm3 08/26/20 05:04 Monocytes # (Manual) 0.5 K/mm3 (0.0-0.8) 08/26/20 05:04 Eosinophils # (Manual) 0.0 K/mm3 (0.0-0.4) 08/26/20 05:04 Basophils # (Manual) 0.0 K/mm3 (0.0-0.1) 08/26/20 05:04 Metamyelocytes # 0.0 K/mm3 08/26/20 05:04 Myelocytes # 0.0 K/mm3 08/26/20 05:04 Promyelocytes # 0.0 K/mm3 08/26/20 05:04 Blast Cells # 0.0 K/mm3 08/26/20 05:04 WBC Morphology Not Reportable 08/26/20 05:04 Hypersegmented Neuts Not Reportable 08/26/20 05:04 Hyposegmented Neuts Not Reportable 08/26/20 05:04 Hypogranular Neuts Not Reportable 08/26/20 05:04 Smudge Cells Not Reportable 08/26/20 05:04 Toxic Granulation Not Reportable 08/26/20 05:04 Toxic Vacuolation Not Reportable 08/26/20 05:04 Dohle Bodies Not Reportable 08/26/20 05:04 Pelger-Huet Anomaly Not Reportable 08/26/20 05:04 Jannette Rods Not Reportable 08/26/20 05:04 Platelet Estimate Consistent w auto 08/26/20 05:04 Clumped Platelets Not Reportable 08/26/20 05:04 Plt Clumps, EDTA Not Reportable 08/26/20 05:04 Large Platelets Not Reportable 08/26/20 05:04 Giant Platelets Not Reportable 08/26/20 05:04 Platelet Satelliting Not Reportable 08/26/20 05:04 Plt Morphology Comment Not Reportable 08/26/20 05:04 RBC Morphology Not Reportable 08/26/20 05:04 Dimorphic RBCs Not Reportable 08/26/20 05:04 Polychromasia Not Reportable 08/26/20 05:04 Hypochromasia Not Reportable 08/26/20 05:04 Poikilocytosis Not Reportable 08/26/20 05:04 Anisocytosis 1+ 08/26/20 05:04 Microcytosis Not Reportable 08/26/20 05:04 Macrocytosis Not Reportable 08/26/20 05:04 Spherocytes Not Reportable 08/26/20 05:04 Pappenheimer Bodies Not Reportable 08/26/20 05:04 Sickle Cells Not Reportable 08/26/20 05:04 Target Cells Not Reportable 08/26/20 05:04 Tear Drop Cells Not Reportable 08/26/20 05:04 Ovalocytes Not Reportable 08/26/20 05:04 Helmet Cells Not Reportable 08/26/20 05:04 [place] Bodies Not Reportable 08/26/20 05:04 [place] Rings Not Reportable 08/26/20 05:04 [place] Cells Not Reportable 08/26/20 05:04 Bite Cells Not Reportable 08/26/20 05:04 Crenated Cell Not Reportable 08/26/20 05:04 Elliptocytes Not Reportable 08/26/20 05:04 Acanthocytes (Spur) Not Reportable 08/26/20 05:04 Rouleaux Not Reportable 08/26/20 05:04 Hemoglobin C Crystals Not Reportable 08/26/20 05:04 Schistocytes Not Reportable 08/26/20 05:04 Malaria parasites Not Reportable 08/26/20 05:04 Shabbir Bodies Not Reportable 08/26/20 05:04 Hem Pathologist Commnt No 08/26/20 05:04 D-Dimer > 80198 ng/mlDDU (0-234) H 08/25/20 11:23 ABG pH 7.462 (7.320-7.450) H 09/01/20 12:51 POC ABG pCO2 39.5 mmHg (32.0-48.0) 09/01/20 12:51 ABG pCO2 36.6 mm Hg 08/31/20 04:10 POC ABG pO2 102.7 mmHg (83-108) 09/01/20 12:51 ABG pO2 99.6 mm Hg (80.0-90.0) H 08/31/20 04:10 POC ABG HCO3 27.6 09/01/20 12:51 ABG HCO3 24.9 mmol/L (20.0-26.0) 08/31/20 04:10 ABG O2 Saturation 98.0 (0-100) 09/01/20 12:51 ABG O2 Content 11.6 (0.0-44) 08/31/20 04:10 POC ABG Base Excess 3.6 09/01/20 12:51 ABG Base Excess 1.0 mmol/L (-2.0-3.0) 08/31/20 04:10 ABG Hemoglobin 9.5 (12.0-17.5) L 09/01/20 12:51 ABG Oxyhemoglobin 97.3 (94-98) 09/01/20 12:51 ABG Carboxyhemoglobin 1.4 % (0.0-5.0) 08/31/20 04:10 ABG Methemoglobin 0.3 (0.0-1.5) 09/01/20 12:51 ABG Sodium 130.4 mmol/L (136.0-145.0) L 09/01/20 12:51 ABG Potassium 3.4 mmol/L (3.40-4.50) 09/01/20 12:51 ABG Chloride 98.0 mmol/L (98-107) 09/01/20 12:51 ABG Glucose 208 mg/dL (65-95) H 09/01/20 12:51 Oxyhemoglobin 95.9 % (95.0-99.0) 08/31/20 04:10 Carboxyhemoglobin 0.4 (0.5-1.5) L 09/01/20 12:51 FiO2 30 % 08/31/20 04:10 FiO2 % 30.0 09/01/20 12:51 Sodium 138 mmol/L (137-145) 09/04/20 09:49 Potassium 4.0 mmol/L (3.6-5.0) 09/04/20 09:49 Chloride 97.9 mmol/L (98-107) L 09/04/20 09:49 Carbon Dioxide 28 mmol/L (22-30) 09/04/20 09:49 Anion Gap 16 mmol/L 09/04/20 09:49 BUN 98 mg/dL (7-17) H 09/04/20 09:49 Creatinine 4.0 mg/dL (0.6-1.2) H 09/04/20 09:49 Estimated GFR 11 ml/min 09/04/20 09:49 BUN/Creatinine Ratio 25 % 09/04/20 09:49 Glucose 171 mg/dL (65-100) H 09/04/20 09:49 POC Glucose 200 mg/dL (70-105) H 09/04/20 12:05 Lactic Acid 1.80 mmol/L (0.7-2.0) 08/25/20 12:45 Calcium 8.8 mg/dL (8.4-10.2) 09/04/20 09:49 Phosphorus 4.60 mg/dL (2.5-4.5) H 09/01/20 09:41 Magnesium 2.40 mg/dL (1.7-2.3) H 09/01/20 09:41 Total Bilirubin < 0.20 mg/dL (0.1-1.2) 08/28/20 04:19 AST 37 units/L (5-40) 08/28/20 04:19 ALT 27 units/L (7-56) 08/28/20 04:19 Alkaline Phosphatase 84 units/L (35-129) 08/28/20 04:19 Troponin T 0.057 ng/mL (0.00-0.029) H 08/25/20 11:23 C-Reactive Protein 7.80 mg/dL (0.00-1.30) H 08/26/20 18:50 Total Protein 4.8 g/dL (6.3-8.2) L 08/28/20 04:19 Albumin 2.4 g/dL (3.9-5) L 08/28/20 04:19 Albumin/Globulin Ratio 1.0 % 08/28/20 04:19 Triglycerides 111 mg/dL (2-149) 08/29/20 04:32 Cholesterol 158 mg/dL (50-199) 08/25/20 11:23 LDL Cholesterol Direct 101 mg/dL (50-130) 08/25/20 11:23 HDL Cholesterol 50 mg/dL (40-59) 08/25/20 11:23 Cholesterol/HDL Ratio 3.16 % 08/25/20 11:23 Procalcitonin 0.41 ng/mL (<0.15) 08/26/20 18:50 Arterial Blood Glucose 208 mg/dL (65-95) H 09/01/20 12:51 Arterial Blood Ionized Calcium 4.5 mg/dL (4.6-5.3) L 09/01/20 12:51 Urine Color Yellow (Yellow) 08/25/20 11:17 Urine Turbidity Cloudy (Clear) 08/25/20 11:17 Urine pH 7.0 (5.0-7.0) 08/25/20 11:17 Ur Specific [place] 1.012 (1.003-1.030) 08/25/20 11:17 Urine Protein >500 mg/dL (Negative) 08/25/20 11:17 Urine Glucose (UA) >=500 mg/dL (Negative) 08/25/20 11:17 Urine Ketones Neg mg/dL (Negative) 08/25/20 11:17 Urine Blood Sm (Negative) 08/25/20 11:17 Urine Nitrite Neg (Negative) 08/25/20 11:17 Urine Bilirubin Neg (Negative) 08/25/20 11:17 Urine Urobilinogen < 2.0 mg/dL (<2.0) 08/25/20 11:17 Ur Leukocyte Esterase Neg (Negative) 08/25/20 11:17 Urine WBC (Auto) 31.0 /HPF (0.0-6.0) H 08/25/20 11:17 Urine RBC (Auto) 28.0 /HPF (0.0-6.0) 08/25/20 11:17 U Epithel Cells (Auto) 5.0 /HPF (0-13.0) 08/25/20 11:17 Urine Bacteria (Auto) 1+ /HPF (Negative) 08/25/20 11:17 Urine WBC Clumps Few /HPF 08/25/20 11:17 Ur Renal Epithelial Cell 4 /LPF 08/25/20 11:17 Hyaline Casts 28 /LPF 08/25/20 11:17 Urine Creatinine 67.4 mg/dL (0.1-20.0) H 08/26/20 17:00 Urine Sodium 12 mmol/L 08/26/20 17:00 Coronavirus (PCR) Negative (Negative) 08/26/20 Unknown Foreman/IV: Voiding Method Indwelling Catheter Active Medications - Current Medications Current Medications: Generic Name Dose Route Start Last Admin Trade Name Freq PRN Reason Stop Dose Admin Albuterol 2.5 mg 08/25/20 14:55 Albuterol 2.5 Mg/3 Ml Nebu IH Q3HRT PRN Shortness Of Breath Amlodipine Besylate 5 mg 08/28/20 10:00 09/04/20 10:03 Amlodipine 5 Mg Tab PO 5 mg QDAY TERA Administration Lipase/Protease/Amylase 1 each 08/26/20 12:15 Lipase 10,500/Protease 25,000/Amylase 43,750 (Units) Dr Gu FEEDTUBE PRN PRN For Clogged Feeding Tube Aspirin 81 mg 08/27/20 10:00 09/04/20 10:02 Aspirin 81 Mg Tab Chew PO 81 mg QDAY TERA Administration Atorvastatin Calcium 40 mg 08/26/20 22:00 09/03/20 21:22 Atorvastatin 40 Mg Tab PO 40 mg QHS TERA Administration Dextrose 50 ml 08/26/20 19:18 Dextrose 50% In Water (25gm) 50 Ml Syringe IV Q30MIN PRN Hypoglycemia Protocol Famotidine 20 mg 08/28/20 10:00 09/04/20 10:38 Famotidine 20 Mg Tab PO 20 mg DAILY TERA Administration Furosemide 40 mg 09/03/20 11:00 09/04/20 07:29 Furosemide 40 Mg/4 Ml Inj IV 40 mg 0600,1800 TERA Administration Heparin Sodium (Porcine) 5,000 unit 08/26/20 22:00 09/04/20 10:01 Heparin 5,000 Unit/1 Ml Vial SUB-Q 5,000 unit Q12HR TERA Administration Hydralazine HCl 10 mg 08/26/20 01:20 09/04/20 11:06 Hydralazine 20 Mg/1 Ml Inj IV 10 mg Q4HR PRN Administration Blood Pressure Hydralazine HCl 50 mg 09/01/20 14:00 09/04/20 07:29 Hydralazine 25 Mg Tab PO 50 mg Q8HR TERA Administration Hydrophilic Ointment 1 applic 08/25/20 11:07 08/25/20 11:57 Lip Therapy Vaseline TP 1 applic Q2HR PRN Administration Dry Lips Lacosamide 200 mg/ Sodium 120 mls @ 100 mls/hr 09/04/20 11:00 09/04/20 11:04 Chloride IV 100 mls/hr Q12H TERA Administration Levetiracetam 500 mg/ Dextrose 105 mls @ 400 mls/hr 09/04/20 11:00 09/04/20 11:01 IV 400 mls/hr Q12HR TERA Administration Insulin Glargine 25 units 09/01/20 22:00 09/03/20 21:21 Insulin Glargine 100 Units/Ml SUB-Q 25 units QHS TERA Administration Insulin Human Lispro 0 unit 08/27/20 12:00 09/04/20 12:38 Insulin Lispro 100 Unit/Ml SUB-Q 3 unit Q6HR TERA Administration Protocol Lorazepam 2 mg 09/03/20 15:12 09/03/20 15:24 Lorazepam 2 Mg/Ml Vial IV 2 mg Q1H PRN Administration Seizures Metoprolol Tartrate 12.5 mg 08/29/20 22:00 09/04/20 10:02 Metoprolol Tartrate 25 Mg Tab PO 12.5 mg BID TERA Administration Multi-Ingred Cream/Lotion/Oil/Oint 1 applic 08/25/20 11:07 Mineral Oil/Petrolatum, White Ophth Oint 3.5 Gm OU Q4HR PRN Dry Eye(s) Senna/Docusate Sodium 1 tab 08/25/20 22:00 09/04/20 10:02 Sennosides/Docusate Sodium 8.6/50 Mg Tab FEEDTUBE 1 tab BID TERA Administration Simple Syrup 15 ml 08/26/20 12:15 Simple Syrup 15 Ml FEEDTUBE PRN PRN Hypoglycemia Simple Syrup 30 ml 08/26/20 12:15 Simple Syrup 15 Ml FEEDTUBE PRN PRN Hypoglycemia Sodium Bicarbonate 325 mg 08/26/20 12:15 Sodium Bicarbonate 325 Mg Tab FEEDTUBE PRN PRN For Clogged Feeding Tube Sodium Chloride 10 ml 08/25/20 22:00 09/04/20 10:04 Sodium Chloride 0.9% 10 Ml Flush Syringe IV 10 ml BID TERA Administration Sodium Chloride 10 ml 08/25/20 14:55 08/29/20 04:05 Sodium Chloride 0.9% 10 Ml Flush Syringe IV 10 ml PRN PRN Administration LINE FLUSH Tamsulosin HCl 0.4 mg 08/31/20 15:00 09/04/20 10:03 Tamsulosin 0.4 Mg Cap PO 0.4 mg QDAY TERA Administration Nutrition/Malnutrition Assess - Dietary Evaluation Nutrition/Malnutrition Findings: Nutrition Notes Start: 08/26/20 10:21 Freq: Status: Active Protocol: Document 09/01/20 11:05 JUAN (Rec: 09/01/20 11:13 JUAN [id number]) Nutrition Notes Initial or Follow up Reassessment Current Diagnosis Acute Kidney Injury,CKD(stage I-IV),Diabetes,Hypertension, Heart Failure,Respiratory Failure Other Pertinent Diagnosis cardiac arrest, acute encephalopathy, pneu, anoxIC brain injury, GERD Current Diet Nepro 1.8 at 30 ml/hr Labs/Tests Na 134 BUN 81 Cr 3.7 Phos 4.6 Mg 2.4 Pertinent Medications [place] Height 5 ft 5 in Weight 95.4 kg Carr Body Weight (kg) 56.81 BMI 34.9 Weight change and time frame wt change noted, pt has edema Weight Status Obese Subjective/Other Information FU for TF tolerance. Observed TF running at goal rate. No BM in chart, informed RN. Percent of energy/protein needs met: 100%/58% Burn Absent Trauma Absent Current % PO Negligible Minimum of two criteria No physical signs of malnutrition #1 Nutrition Diagnosis Inadequate oral intake Diagnosis Progress(for reassessment Continues documentation) Is patient on ventilator? Yes Is Patient Ambulatory and/or Out of Bed No REE-([place]-St. Jeor-confined to bed) 1740.000 Kcal/Kg value to use for calculation 13 Approximate Energy Requirements Using 1240 kcal/Kg Calculation Used for Recommendations Kcal/kg Additional Notes protein needs: >114g (>2 g/ kgIBW) fluid needs 1500 - 1900 ml or per MD order Nutrition Intervention Change Diet Order: Continue TF Nutrition Support: Nepro at 30 ml/hr with a free water flush of 130 ml q4h Kcal 1,296 Protein (gm) 58 Fluid (mL) 523 Goal #1 Meet at least 75% of kcal and protein needs as best as possible Anticipated Discharge Needs: unable to determine at this time Follow-Up By: 09/06/20 Additional Comments FU for TF tolerance, BM
[2020-09-04] MEDS: INSULIN GLARGINE 100 UNITS/ML SUB-Q SCH (21:34)
--- NOTE | 2020-09-04 23:26 | Progress Note ---
Assessment and Plan 1. Acute kidney injury: Vasomotor FLORIDALMA superimposed on CKD stage 4 in the setting Cardiac arrest. Low FeNa. CT abdomen negative for hydro. Monitor renal function. Slight increase in Creatinine level noted. Remain non-oliguric. Renal prognosis is guarded. Avoid nephrotoxic agents. Meds dosage based on GFR. Monitor for ANSWERER needs. 2. FEN: Volume overload, IV lasix. Hyperkalemia, improved. Metabolic acidosis, improved. Monitor lytes. 3. Acute respiratory failure with hypoxia: 2/2 b/p pneumonia. Covid test negative. Intubated, on vent. Followed by Pulmonary. 4. S/p OOH Cardiac arrest: Prolonged downtime. Followed by Cards. 5. Bladder retention: Christina catheter. 6. Diabetes mellitus type 2: Follow blood glucose. 7. Hypertension: Monitor BP. 8. Anemia, POA: Monitor. 9. 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 Family is aware of slim prognosis. 10. Facial twitching: Vimpat. Subjective: Patient was seen and examined at the bedside. Examination: General appearance: well-developed, well-nourished, appears stated age, intubated, on vent HEENT: ATNC, pupils not reacting to light, facial twitching noted Neck: supple Respiratory: coarse breath sounds Cardiology: regular, S1S2, no murmur Gastrointestinal: soft, bowel sounds heard, not tender Integumentary: no rash, warm and dry Neurologic: not responding Ext: trace dependent edema : Christina catheter Subjective Date of service: 09/04/20 Principal diagnosis: Ac. hypoxemic resp failure; Cardiac arrest; AMS; AE-CHF; Hyperkalemia; FLORIDALMA Objective - Vital Signs Vital signs: Vital Signs - 12hr 09/04/20 09/04/20 09/04/20 11:31 11:49 12:00 Temperature 97.5 F L Pulse Rate 68 62 67 Pulse Rate [ 58 L From Monitor] Respiratory 26 H 24 12 Rate Blood Pressure 154/58 154/58 O2 Sat by Pulse 100 100 99 Oximetry 09/04/20 09/04/20 09/04/20 12:01 12:31 13:01 Temperature Pulse Rate 65 58 L 61 Pulse Rate [ From Monitor] Respiratory 25 H 23 23 Rate Blood Pressure 170/66 128/52 120/60 O2 Sat by Pulse 100 100 100 Oximetry 09/04/20 09/04/2009/04/21 13:31 14:00 14:18 Temperature Pulse Rate 68 66 64 Pulse Rate [ From Monitor] Respiratory 25 H 22 Rate Blood Pressure 180/72 166/63 134/45 O2 Sat by Pulse 100 100 Oximetry 09/04/20 09/04/20 09/04/20 14:31 14:35 15:00 Temperature Pulse Rate 64 64 64 Pulse Rate [ From Monitor] Respiratory 21 23 22 Rate Blood Pressure 135/54 135/54 136/58 O2 Sat by Pulse 100 100 99 Oximetry 09/04/20 09/04/20 09/04/20 15:30 16:00 16:01 Temperature 97.6 F Pulse Rate 63 59 L 64 Pulse Rate [ 61 From Monitor] Respiratory 21 12 23 Rate Blood Pressure 133/57 132/45 O2 Sat by Pulse 99 99 99 Oximetry 09/04/20 09/04/20 09/04/20 16:30 17:00 17:22 Temperature Pulse Rate 61 64 60 Pulse Rate [ From Monitor] Respiratory 23 13 22 Rate Blood Pressure 121/42 122/52 122/52 O2 Sat by Pulse 99 100 99 Oximetry 09/04/20 09/04/20 09/04/20 17:30 18:00 18:30 Temperature Pulse Rate 61 57 L 63 Pulse Rate [ From Monitor] Respiratory 20 23 24 Rate Blood Pressure 138/47 129/46 138/48 O2 Sat by Pulse 99 99 99 Oximetry 09/04/20 09/04/20 09/04/20 19:00 19:30 19:56 Temperature 97.5 F L Pulse Rate 60 59 L Pulse Rate [ 61 From Monitor] Respiratory 21 21 Rate Blood Pressure 121/44 120/42 O2 Sat by Pulse 99 99 Oximetry 09/04/20 09/04/20 09/04/20 20:00 20:30 20:34 Temperature Pulse Rate 61 60 57 L Pulse Rate [ From Monitor] Respiratory 23 23 Rate Blood Pressure 133/45 138/46 138/46 O2 Sat by Pulse 99 99 99 Oximetry 09/04/20 09/04/20 09/04/20 21:00 21:31 21:32 Temperature Pulse Rate 58 L 62 62 Pulse Rate [ From Monitor] Respiratory 14 20 Rate Blood Pressure 130/43 141/53 141/53 O2 Sat by Pulse 99 99 Oximetry - Lab 09/03/20 08:31 09/04/20 09:49 Most recent lab results ABG pH 7.462 (7.320-7.450) H 09/01/20 12:51 ABG pCO2 36.6 mm Hg 08/31/20 04:10 ABG pO2 99.6 mm Hg (80.0-90.0) H 08/31/20 04:10 ABG HCO3 24.9 mmol/L (20.0-26.0) 08/31/20 04:10 ABG O2 Saturation 98.0 (0-100) 09/01/20 12:51 Calcium 8.8 mg/dL (8.4-10.2) 09/04/20 09:49 Phosphorus 4.60 mg/dL (2.5-4.5) H 09/01/20 09:41 Magnesium 2.40 mg/dL (1.7-2.3) H 09/01/20 09:41 Urine Creatinine 67.4 mg/dL (0.1-20.0) H 08/26/20 17:00 Urine Sodium 12 mmol/L 08/26/20 17:00 Medications & Allergies - Medications Allergies/Adverse Reactions: Allergies No Known Allergies Allergy (Verified 07/31/18 07:06) Home Medications: Home Medications Medication Instructions Recorded Confirmed Last Taken Type Albuterol Mdi (or & Nicu Only) 2 puff IH QID PRN #1 inhalation 08/07/18 03/14/20 Unknown Rx [ProAir HFA Inhaler] Sucralfate [Carafate] 1 gm PO ACHS #30 tablet 08/07/18 03/14/20 03/13/20 Rx Insulin Regular, Human [HumuLIN R] 0 unit SQ AC #1 vial 08/11/18 03/14/20 Unknown Rx Labetalol HCl [Labetalol 300mg TAB] 300 mg PO BID #60 tablet 11/11/19 03/14/20 03/14/20 Rx Furosemide [Lasix TAB] 80 mg PO DAILY #14 tablet 03/27/20 Unknown Rx Insulin Glargine [Lantus VIAL] 15 units SUB-Q QAM #1 vial 03/27/20 Unknown Rx amLODIPine 10 mg PO QDAY #30 tablet 03/27/20 Unknown Rx Active Medications: Generic Name Dose Route Start Last Admin Trade Name Freq PRN Reason Stop Dose Admin Albuterol 2.5 mg 08/25/20 14:55 Albuterol 2.5 Mg/3 Ml Nebu IH Q3HRT PRN Shortness Of Breath Amlodipine Besylate 5 mg 08/28/20 10:00 09/04/20 10:03 Amlodipine 5 Mg Tab PO 5 mg QDAY TERA Administration Lipase/Protease/Amylase 1 each 08/26/20 12:15 Lipase 10,500/Protease 25,000/Amylase 43,750 (Units) Dr Gu FEEDTUBE PRN PRN For Clogged Feeding Tube Aspirin 81 mg 08/27/20 10:00 09/04/20 10:02 Aspirin 81 Mg Tab Chew PO 81 mg QDAY TERA Administration Atorvastatin Calcium 40 mg 08/26/20 22:00 09/04/20 21:30 Atorvastatin 40 Mg Tab PO 40 mg QHS TERA Administration Dextrose 50 ml 08/26/20 19:18 Dextrose 50% In Water (25gm) 50 Ml Syringe IV Q30MIN PRN Hypoglycemia Protocol Famotidine 20 mg 08/28/20 10:00 09/04/20 10:38 Famotidine 20 Mg Tab PO 20 mg DAILY TERA Administration Furosemide 40 mg 09/03/20 11:00 09/04/20 18:18 Furosemide 40 Mg/4 Ml Inj IV 40 mg 0600,1800 TERA Administration Heparin Sodium (Porcine) 5,000 unit 08/26/20 22:00 09/04/20 21:33 Heparin 5,000 Unit/1 Ml Vial SUB-Q 5,000 unit Q12HR TERA Administration Hydralazine HCl 10 mg 08/26/20 01:20 09/04/20 11:06 Hydralazine 20 Mg/1 Ml Inj IV 10 mg Q4HR PRN Administration Blood Pressure Hydralazine HCl 50 mg 09/01/20 14:00 09/04/20 21:31 Hydralazine 25 Mg Tab PO 50 mg Q8HR TERA Administration Hydrophilic Ointment 1 applic 08/25/20 11:07 08/25/20 11:57 Lip Therapy Vaseline TP 1 applic Q2HR PRN Administration Dry Lips Lacosamide 200 mg/ Sodium 120 mls @ 100 mls/hr 09/04/20 11:00 09/04/20 11:04 Chloride IV 100 mls/hr Q12H TERA Administration Levetiracetam 500 mg/ Dextrose 105 mls @ 400 mls/hr 09/04/20 11:00 09/04/20 21:33 IV 400 mls/hr Q12HR TERA Administration Insulin Glargine 25 units 09/01/20 22:00 09/04/20 21:34 Insulin Glargine 100 Units/Ml SUB-Q 25 units QHS TERA Administration Insulin Human Lispro 0 unit 08/27/20 12:00 09/04/20 18:18 Insulin Lispro 100 Unit/Ml SUB-Q 3 unit Q6HR TERA Administration Protocol Lorazepam 2 mg 09/03/20 15:12 09/03/20 15:24 Lorazepam 2 Mg/Ml Vial IV 2 mg Q1H PRN Administration Seizures Metoprolol Tartrate 12.5 mg 08/29/20 22:00 09/04/20 21:32 Metoprolol Tartrate 25 Mg Tab PO 12.5 mg BID TERA Administration Multi-Ingred Cream/Lotion/Oil/Oint 1 applic 08/25/20 11:07 Mineral Oil/Petrolatum, White Ophth Oint 3.5 Gm OU Q4HR PRN Dry Eye(s) Senna/Docusate Sodium 1 tab 08/25/20 22:00 09/04/20 21:31 Sennosides/Docusate Sodium 8.6/50 Mg Tab FEEDTUBE 1 tab BID TERA Administration Simple Syrup 15 ml 08/26/20 12:15 Simple Syrup 15 Ml FEEDTUBE PRN PRN Hypoglycemia Simple Syrup 30 ml 08/26/20 12:15 Simple Syrup 15 Ml FEEDTUBE PRN PRN Hypoglycemia Sodium Bicarbonate 325 mg 08/26/20 12:15 Sodium Bicarbonate 325 Mg Tab FEEDTUBE PRN PRN For Clogged Feeding Tube Sodium Chloride 10 ml 08/25/20 22:00 09/04/20 21:32 Sodium Chloride 0.9% 10 Ml Flush Syringe IV 10 ml BID TERA Administration Sodium Chloride 10 ml 08/25/20 14:55 08/29/20 04:05 Sodium Chloride 0.9% 10 Ml Flush Syringe IV 10 ml PRN PRN Administration LINE FLUSH Tamsulosin HCl 0.4 mg 08/31/20 15:00 09/04/20 10:03 Tamsulosin 0.4 Mg Cap PO 0.4 mg QDAY TERA Administration
[2020-09-05] MEDS: LACOSAMIDE 200 MG in SODIUM CHLORIDE 0.9% 100 ML IV SCH ×3 (00:14→22:00)
[2020-09-05] MEDS: INSULIN LISPRO 100 UNIT/ML SUB-Q SCH ×5 (01:10→18:49)
[2020-09-05] MEDS: FUROSEMIDE 40 MG/4 ML INJ IV SCH ×3 (04:38→18:49)
[2020-09-05] MEDS: hydrALAZINE 25 MG TAB PO SCH ×4 (05:10→21:46)
--- NOTE | 2020-09-05 08:16 | Progress Note ---
Assessment and Plan 1. Acute kidney injury: Vasomotor FLORIDALMA superimposed on CKD stage 4 in the setting Cardiac arrest. Low FeNa. CT abdomen negative for hydro. Monitor renal function. Creatinine level around 3.6. Remain non-oliguric. Renal prognosis is guarded. Avoid nephrotoxic agents. Meds dosage based on GFR. Monitor for PRODUCTION ENGINEER TRACK needs. 2. FEN: Volume overload, IV lasix. Hyperkalemia, improved. Metabolic acidosis, improved. Monitor lytes. 3. Acute respiratory failure with hypoxia: 2/2 b/p pneumonia. Covid test negative. Intubated, on vent. Followed by Pulmonary. 4. S/p OOH Cardiac arrest: Prolonged downtime. Followed by Cards. 5. Bladder retention: Follow bladder scan. 6. Diabetes mellitus type 2: Follow blood glucose. 7. Hypertension: Monitor BP. 8. Anemia, POA: Monitor. 9. 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 Family is aware of slim prognosis. 10. Facial twitching: Vimpat. Subjective: Patient was seen and examined at the bedside. Examination: General appearance: well-developed, well-nourished, appears stated age, intubated, on vent HEENT: ATNC, pupils not reacting to light, facial twitching noted Neck: supple Respiratory: coarse breath sounds Cardiology: regular, S1S2, no murmur Gastrointestinal: soft, bowel sounds heard, not tender Integumentary: no rash, warm and dry Neurologic: not responding Ext: no edema Subjective Date of service: 09/05/20 Principal diagnosis: Ac. hypoxemic resp failure; Cardiac arrest; AMS; AE-CHF; Hyperkalemia; FLORIDALMA Objective - Vital Signs Vital signs: Vital Signs - 12hr 09/04/20 09/04/20 09/04/20 20:30 20:34 21:00 Temperature Pulse Rate 60 57 L 57 L Pulse Rate [ From Monitor] Respiratory 23 14 Rate Respiratory Rate [Abdomen] Blood Pressure 138/46 138/46 130/43 O2 Sat by Pulse 99 99 99 Oximetry 09/04/20 09/04/20 09/04/20 21:31 21:32 21:51 Temperature Pulse Rate 62 62 59 L Pulse Rate [ From Monitor] Respiratory 20 13 Rate Respiratory 18 Rate [Abdomen] Blood Pressure 141/53 141/53 141/53 O2 Sat by Pulse 99 99 Oximetry 09/04/20 09/04/20 09/04/20 22:01 22:30 23:00 Temperature Pulse Rate 58 L 54 L 57 L Pulse Rate [ From Monitor] Respiratory 13 13 13 Rate Respiratory Rate [Abdomen] Blood Pressure 130/49 124/47 117/46 O2 Sat by Pulse 99 100 100 Oximetry 09/04/20 09/05/20 09/05/20 23:31 00:00 00:05 Temperature 97.6 F Pulse Rate 56 L 52 L 54 L Pulse Rate [ From Monitor] Respiratory 17 13 Rate Respiratory Rate [Abdomen] Blood Pressure 130/50 122/47 O2 Sat by Pulse 99 98 Oximetry 09/05/20 09/05/20 09/05/20 00:20 00:30 01:00 Temperature Pulse Rate 54 L 56 L 56 L Pulse Rate [ From Monitor] Respiratory 13 16 Rate Respiratory Rate [Abdomen] Blood Pressure 121/49 121/49 121/49 O2 Sat by Pulse 99 99 99 Oximetry 09/05/20 09/05/20 09/05/20 01:31 02:00 02:05 Temperature Pulse Rate 53 L 52 L 55 L Pulse Rate [ 69 From Monitor] Respiratory 11 L 14 12 Rate Respiratory Rate [Abdomen] Blood Pressure 140/53 139/53 O2 Sat by Pulse 100 100 99 Oximetry 09/05/20 09/05/20 09/05/20 02:30 03:00 03:20 Temperature Pulse Rate 58 L 53 L 55 L Pulse Rate [ 69 From Monitor] Respiratory 12 13 12 Rate Respiratory Rate [Abdomen] Blood Pressure 146/60 129/56 O2 Sat by Pulse 100 100 99 Oximetry 09/05/20 09/05/20 09/05/20 03:31 03:47 04:00 Temperature 97.5 F L Pulse Rate 55 L 53 L Pulse Rate [ From Monitor] Respiratory 13 12 Rate Respiratory Rate [Abdomen] Blood Pressure 149/61 134/54 O2 Sat by Pulse 99 100 Oximetry 09/05/20 09/05/20 09/05/20 04:27 04:31 05:00 Temperature Pulse Rate 56 L 55 L 52 L Pulse Rate [ From Monitor] Respiratory 13 12 Rate Respiratory Rate [Abdomen] Blood Pressure 134/54 147/59 132/56 O2 Sat by Pulse 100 100 100 Oximetry 09/05/20 09/05/20 09/05/20 05:10 05:31 06:01 Temperature Pulse Rate 57 L 55 L 50 L Pulse Rate [ 69 From Monitor] Respiratory 14 12 Rate Respiratory Rate [Abdomen] Blood Pressure 132/56 156/65 135/55 O2 Sat by Pulse 99 100 100 Oximetry 09/05/20 09/05/20 07:45 07:52 Temperature Pulse Rate 52 L 54 L Pulse Rate [ From Monitor] Respiratory 21 Rate Respiratory Rate [Abdomen] Blood Pressure 137/56 137/56 O2 Sat by Pulse 98 100 Oximetry - Lab 09/03/20 08:31 09/05/20 08:40 Most recent lab results ABG pH 7.462 (7.320-7.450) H 09/01/20 12:51 ABG pCO2 36.6 mm Hg 08/31/20 04:10 ABG pO2 99.6 mm Hg (80.0-90.0) H 08/31/20 04:10 ABG HCO3 24.9 mmol/L (20.0-26.0) 08/31/20 04:10 ABG O2 Saturation 98.0 (0-100) 09/01/20 12:51 Calcium 8.8 mg/dL (8.4-10.2) 09/04/20 09:49 Phosphorus 4.60 mg/dL (2.5-4.5) H 09/01/20 09:41 Magnesium 2.40 mg/dL (1.7-2.3) H 09/01/20 09:41 Urine Creatinine 67.4 mg/dL (0.1-20.0) H 08/26/20 17:00 Urine Sodium 12 mmol/L 08/26/20 17:00 Medications & Allergies - Medications Allergies/Adverse Reactions: Allergies No Known Allergies Allergy (Verified 07/31/18 07:06) Home Medications: Home Medications Medication Instructions Recorded Confirmed Last Taken Type Albuterol Mdi (or & Nicu Only) 2 puff IH QID PRN #1 inhalation 08/07/18 03/14/20 Unknown Rx [ProAir HFA Inhaler] Sucralfate [Carafate] 1 gm PO ACHS #30 tablet 08/07/18 03/14/20 03/13/20 Rx Insulin Regular, Human [HumuLIN R] 0 unit SQ AC #1 vial 08/11/18 03/14/20 Unknown Rx Labetalol HCl [Labetalol 300mg TAB] 300 mg PO BID #60 tablet 11/11/19 03/14/20 03/14/20 Rx Furosemide [Lasix TAB] 80 mg PO DAILY #14 tablet 03/27/20 Unknown Rx Insulin Glargine [Lantus VIAL] 15 units SUB-Q QAM #1 vial 03/27/20 Unknown Rx amLODIPine 10 mg PO QDAY #30 tablet 03/27/20 Unknown Rx Active Medications: Generic Name Dose Route Start Last Admin Trade Name Freq PRN Reason Stop Dose Admin Albuterol 2.5 mg 08/25/20 14:55 Albuterol 2.5 Mg/3 Ml Nebu IH Q3HRT PRN Shortness Of Breath Amlodipine Besylate 5 mg 08/28/20 10:00 09/04/20 10:03 Amlodipine 5 Mg Tab PO 5 mg QDAY TERA Administration Lipase/Protease/Amylase 1 each 08/26/20 12:15 Lipase 10,500/Protease 25,000/Amylase 43,750 (Units) Dr Gu FEEDTUBE PRN PRN For Clogged Feeding Tube Aspirin 81 mg 08/27/20 10:00 09/04/20 10:02 Aspirin 81 Mg Tab Chew PO 81 mg QDAY TERA Administration Atorvastatin Calcium 40 mg 08/26/20 22:00 09/04/20 21:30 Atorvastatin 40 Mg Tab PO 40 mg QHS TERA Administration Dextrose 50 ml 08/26/20 19:18 Dextrose 50% In Water (25gm) 50 Ml Syringe IV Q30MIN PRN Hypoglycemia Protocol Famotidine 20 mg 08/28/20 10:00 09/04/20 10:38 Famotidine 20 Mg Tab PO 20 mg DAILY TERA Administration Furosemide 40 mg 09/03/20 11:00 09/05/20 05:12 Furosemide 40 Mg/4 Ml Inj IV Not Given 0600,1800 TERA Heparin Sodium (Porcine) 5,000 unit 08/26/20 22:00 09/04/20 21:33 Heparin 5,000 Unit/1 Ml Vial SUB-Q 5,000 unit Q12HR TERA Administration Hydralazine HCl 10 mg 08/26/20 01:20 09/04/20 11:06 Hydralazine 20 Mg/1 Ml Inj IV 10 mg Q4HR PRN Administration Blood Pressure Hydralazine HCl 50 mg 09/01/20 14:00 09/05/20 05:10 Hydralazine 25 Mg Tab PO 50 mg Q8HR TERA Administration Hydrophilic Ointment 1 applic 08/25/20 11:07 08/25/20 11:57 Lip Therapy Vaseline TP 1 applic Q2HR PRN Administration Dry Lips Lacosamide 200 mg/ Sodium 120 mls @ 100 mls/hr 09/04/20 11:00 09/05/20 00:14 Chloride IV 100 mls/hr Q12H TERA Administration Levetiracetam 500 mg/ Dextrose 105 mls @ 400 mls/hr 09/04/20 11:00 09/04/20 21:33 IV 400 mls/hr Q12HR TERA Administration Insulin Glargine 25 units 09/01/20 22:00 09/04/20 21:34 Insulin Glargine 100 Units/Ml SUB-Q 25 units QHS TERA Administration Insulin Human Lispro 0 unit 08/27/20 12:00 09/05/20 05:11 Insulin Lispro 100 Unit/Ml SUB-Q Not Given Q6HR [facility] Protocol Lorazepam 2 mg 09/03/20 15:12 09/03/20 15:24 Lorazepam 2 Mg/Ml Vial IV 2 mg Q1H PRN Administration Seizures Metoprolol Tartrate 12.5 mg 08/29/20 22:00 09/04/20 21:32 Metoprolol Tartrate 25 Mg Tab PO 12.5 mg BID TERA Administration Multi-Ingred Cream/Lotion/Oil/Oint 1 applic 08/25/20 11:07 Mineral Oil/Petrolatum, White Ophth Oint 3.5 Gm OU Q4HR PRN Dry Eye(s) Senna/Docusate Sodium 1 tab 08/25/20 22:00 09/04/20 21:31 Sennosides/Docusate Sodium 8.6/50 Mg Tab FEEDTUBE 1 tab BID TERA Administration Simple Syrup 15 ml 08/26/20 12:15 Simple Syrup 15 Ml FEEDTUBE PRN PRN Hypoglycemia Simple Syrup 30 ml 08/26/20 12:15 Simple Syrup 15 Ml FEEDTUBE PRN PRN Hypoglycemia Sodium Bicarbonate 325 mg 08/26/20 12:15 Sodium Bicarbonate 325 Mg Tab FEEDTUBE PRN PRN For Clogged Feeding Tube Sodium Chloride 10 ml 08/25/20 22:00 09/04/20 21:32 Sodium Chloride 0.9% 10 Ml Flush Syringe IV 10 ml BID TERA Administration Sodium Chloride 10 ml 08/25/20 14:55 08/29/20 04:05 Sodium Chloride 0.9% 10 Ml Flush Syringe IV 10 ml PRN PRN Administration LINE FLUSH Tamsulosin HCl 0.4 mg 08/31/20 15:00 09/04/20 10:03 Tamsulosin 0.4 Mg Cap PO 0.4 mg QDAY TERA Administration
[2020-09-05] MEDS: amLODIPine 5 MG TAB PO SCH (09:54)
[2020-09-05] MEDS: FAMOTIDINE 20 MG TAB PO SCH (09:54)
[2020-09-05] MEDS: TAMSULOSIN 0.4 MG CAP PO SCH (09:54)
[2020-09-05] MEDS: SENNOSIDES/DOCUSATE SODIUM 8.6/50 MG TAB FEEDTUBE SCH ×2 (09:54→21:46)
[2020-09-05] MEDS: METOPROLOL TARTRATE 25 MG TAB PO SCH (09:55)
[2020-09-05] MEDS: HEPARIN 5,000 UNIT/1 ML VIAL SUB-Q SCH ×2 (09:55→21:46)
[2020-09-05] MEDS: ASPIRIN 81 MG TAB CHEW PO SCH (10:57)
[2020-09-05] MEDS: levETIRAcetam 500 MG in DEXTROSE 5% IN WATER 100 ML IV SCH ×2 (10:57→22:01)
--- NOTE | 2020-09-05 11:01 | Progress Note ---
Assessment and Plan Assessment and Plan Assessment and plan: This is a 75-year-old female with CHF, OHS DM, CKD, morbid obesity, GERD, hypertension, chronic respiratory failure admitted s/p cardiac arrest #NEURO -Anoxic encephalopathy -08/[address] head shows no CT evidence of acute abnormality -08/28 MRI brain without contrast shows abnormal diffusion and FLAIR signal abnormality which may suggest hypoxic/ischemic brain injury, -08/30 EEG- remarkable for diffuse slowing 3-4 Hz no clear epileptiform discharges is noted - Today she is with facial twitching left>Right face mainly Seizure can not be excluded --- Repeat EEG is remarkable for recurrent right frontal rubio and a run for over 200 sec. of generalized 3 hz rhythmic activity associated with the left facial twitching with focal seizure is most likley is present ... -Keppra decrease to 500 mg BID due to elevated creatinine ,give IV, vimpat is to increased to 200 mg IV bid will add valproic acid 750 mg IV tid and or in [place] tube , Ativan as needed for facial twitching -Seizure/aspiration precautions -Prognosis over all is poor -NO mind altering medications -opens eyes spontaneously ; pupils reactive to light; neg threat; pos cough; withdrawal on right to deep pain rare; no response to deep pain on left -Pt has 8 living children- updated on plan of care Case Management following if decision is not made by family in 48 hours we will order trach/Peg Friday (09/04) #CV -NSR -S/p cardiac arrest with prolonged down time- -ddimer elevated on admit following cardiac arrest -Cardiology has seen and signed off- call if needed -08/25 echocardiogram shows LVEF 40 to 45%, LV normal size, LV systolic function mildly decreased, mild diastolic dysfunction, mildly dilated right ventricle, - pulmonary hypertension RVSP 45 mmHg -asa and statin -Hypertension -home norvasc , hydral added -Blood pressure monitoring per protocol -IV hydralazine as needed #RESP Acute hypoxic respiratory failure -Chronic respiratory insufficiency at home with 3 L oxygen via nasal cannula -remains intubated and ventilated on cpap this AM -Wean as tolerated; trend pulse ox -CCM following -VAP bundle -nebs as needed Multifocal pneumonia/ ? aspiration event -08/25 CXR shows worsening patchy bilateral pulmonary opacities -08/25 CTA chest shows no evidence of pulmonary embolism, bilateral pulmonary processes with large bilateral pleural effusions, pneumonia is a concern, pulmonary edema could be a similar appearance versus pulmonary edema # FLORIDALMA on CKD secondary to patient under nephropathy -trend and replace electrolytes as needed -Trend Cr #Urinary retention -Ofreman replaced 08/31 for urinary retention #HEME Anemia -Admit H/H 8.6/27.8 #VTE prophylaxis with SCD and SQH #ID -Pneumonia -covid neg on admit #ENDO Diabetes mellitus DVT/GI prophylaxis: SCDs to bilateral lower extremities heparin subcu, PPI Disposition: ICU, need to discuss with family plan of care Lines: PIV; foreman pt. is evaluated in ICU time spent evaluating chart and lab result as well as test and exam pt. is >40 minutes Subjective Date of service: 09/05/20 Principal diagnosis: Ac. hypoxemic resp failure; Cardiac arrest; AMS; AE-CHF; Hyperkalemia; FLORIDALMA Interval history: status is unchanged not following command on Cpap , vital stable , off sedation, not responding to verbal or sternal rub. still with left facial twitching intermittent , eyes open wondering family requested peg tube and tracheostomy done Objective - Vital Sign Vital Signs - 12hr 09/04/20 09/04/20 09/05/20 23:00 23:31 00:00 Temperature 97.6 F Pulse Rate 57 L 56 L 52 L Pulse Rate [ From Monitor] Respiratory 13 17 13 Rate Blood Pressure 117/46 130/50 122/47 O2 Sat by Pulse 100 99 98 Oximetry 09/05/20 09/05/20 09/05/20 00:05 00:20 00:30 Temperature Pulse Rate 54 L 54 L 56 L Pulse Rate [ From Monitor] Respiratory 13 Rate Blood Pressure 121/49 121/49 O2 Sat by Pulse 99 99 Oximetry 09/05/20 09/05/20 09/05/20 01:00 01:31 02:00 Temperature Pulse Rate 56 L 53 L 52 L Pulse Rate [ From Monitor] Respiratory 16 11 L 14 Rate Blood Pressure 121/49 140/53 139/53 O2 Sat by Pulse 99 100 100 Oximetry 09/05/20 09/05/20 09/05/20 02:05 02:30 03:00 Temperature Pulse Rate 55 L 58 L 53 L Pulse Rate [ 69 From Monitor] Respiratory 12 12 13 Rate Blood Pressure 146/60 129/56 O2 Sat by Pulse 99 100 100 Oximetry 09/05/20 09/05/20 09/05/20 03:20 03:31 03:47 Temperature 97.5 F L Pulse Rate 55 L 55 L Pulse Rate [ 69 From Monitor] Respiratory 12 13 Rate Blood Pressure 149/61 O2 Sat by Pulse 99 99 Oximetry 09/05/20 09/05/20 09/05/20 04:00 04:27 04:31 Temperature Pulse Rate 53 L 56 L 55 L Pulse Rate [ From Monitor] Respiratory 12 13 Rate Blood Pressure 134/54 134/54 147/59 O2 Sat by Pulse 100 100 100 Oximetry 09/05/20 09/05/20 09/05/20 05:00 05:10 05:31 Temperature Pulse Rate 52 L 57 L 55 L Pulse Rate [ 69 From Monitor] Respiratory 12 14 Rate Blood Pressure 132/56 132/56 156/65 O2 Sat by Pulse 100 99 100 Oximetry 09/05/20 09/05/20 09/05/20 06:01 06:30 07:00 Temperature Pulse Rate 50 L 52 L 50 L Pulse Rate [ From Monitor] Respiratory 12 12 11 L Rate Blood Pressure 135/55 127/54 126/53 O2 Sat by Pulse 100 100 100 Oximetry 09/05/20 09/05/20 09/05/20 07:30 07:45 07:52 Temperature Pulse Rate 49 L 52 L 54 L Pulse Rate [ From Monitor] Respiratory 13 21 Rate Blood Pressure 137/56 137/56 137/56 O2 Sat by Pulse 100 98 100 Oximetry 09/05/20 09/05/20 09/05/20 08:00 08:01 09:54 Temperature 97.5 F L Pulse Rate 55 L 55 L 58 L Pulse Rate [ 55 L From Monitor] Respiratory 22 17 Rate Blood Pressure 152/60 129/49 O2 Sat by Pulse 98 99 Oximetry 09/05/20 09:55 Temperature Pulse Rate 53 L Pulse Rate [ From Monitor] Respiratory Rate Blood Pressure 129/49 O2 Sat by Pulse Oximetry - General Apperance Constitutional: comfortable, other (intubated on Cpap , eyes open not follow command left facial twitching intermittent ) - EENT EENT: PERRL, mucous membranes moist - Respiratory Respiratory: chest non-tender, lungs clear, rhonchi - Cardiovascular Cardiovascular: normal S1, normal S2 Extremities: no peripheral edema bilat, no clubbing, cyanosis - Gastrointestinal Gastrointestinal: normoactive bowel sounds - Integumentary Integumentary: normal - Neurologic Cranial nerve examination: other (intermittent left facial twitching , not follow command , pupils slightly [id number], corneal intact as well as gag , with spontaneous breathing on vent.) Detailed motor examination: other (no movment is noted verbal or sternal rub .) - Laboratory Findings CBC and BMP: 09/03/20 08:31 09/05/20 08:40 Abnormal Lab Findings: Abnormal Labs 08/25/20 08/25/20 08/25/20 11:14 11:17 11:23 WBC 11.5 H RBC 3.22 L Hgb 8.6 L Hct 27.6 L MCH 27 L MCHC RDW 15.6 H Lymph % (Auto) Lymph # (Auto) Seg Neutrophils % Seg Neuts % (Manual) 89.0 H Lymphocytes % (Manual) 5.0 L Seg Neutrophils # Seg Neutrophils # Man 10.2 H Lymphocytes # (Manual) 0.6 L D-Dimer ABG pH 7.290 L POC ABG pO2 161.1 H ABG pO2 ABG HCO3 ABG Hemoglobin 8.9 L ABG Oxyhemoglobin 98.6 H ABG Sodium 135.2 L ABG Potassium 5.9 H ABG Glucose 210 H Oxyhemoglobin Carboxyhemoglobin 0.4 L Sodium Potassium Chloride Carbon Dioxide BUN Creatinine Glucose POC Glucose Lactic Acid Calcium Phosphorus Magnesium AST ALT Troponin T C-Reactive Protein Total Protein Albumin Arterial Blood Glucose 210 H Arterial Blood Ionized Calcium 4.4 L Urine WBC (Auto) 31.0 H Urine Creatinine 08/25/20 08/25/20 08/25/20 11:23 11:23 11:23 WBC RBC Hgb Hct MCH MCHC RDW Lymph % (Auto) Lymph # (Auto) Seg Neutrophils % Seg Neuts % (Manual) Lymphocytes % (Manual) Seg Neutrophils # Seg Neutrophils # Man Lymphocytes # (Manual) D-Dimer > 58788 H ABG pH POC ABG pO2 ABG pO2 ABG HCO3 ABG Hemoglobin ABG Oxyhemoglobin ABG Sodium ABG Potassium ABG Glucose Oxyhemoglobin Carboxyhemoglobin Sodium Potassium 6.4 H* Chloride Carbon Dioxide 21 L BUN 52 H Creatinine 3.5 H Glucose 194 H POC Glucose Lactic Acid 3.30 H* Calcium 8.1 L Phosphorus Magnesium AST 103 H ALT 77 H Troponin T 0.057 H C-Reactive Protein Total Protein 5.8 L Albumin 3.4 L Arterial Blood Glucose Arterial Blood Ionized Calcium Urine WBC (Auto) Urine Creatinine 08/25/20 08/25/20 08/25/20 13:51 15:45 20:34 WBC RBC Hgb Hct MCH MCHC RDW Lymph % (Auto) Lymph # (Auto) Seg Neutrophils % Seg Neuts % (Manual) Lymphocytes % (Manual) Seg Neutrophils # Seg Neutrophils # Man Lymphocytes # (Manual) D-Dimer ABG pH POC ABG pO2 66.3 L ABG pO2 ABG HCO3 ABG Hemoglobin 9.1 L ABG Oxyhemoglobin 92.5 L ABG Sodium ABG Potassium ABG Glucose 225 H Oxyhemoglobin Carboxyhemoglobin Sodium Potassium Chloride Carbon Dioxide BUN Creatinine Glucose POC Glucose 188 H 233 H Lactic Acid Calcium Phosphorus Magnesium AST ALT Troponin T C-Reactive Protein Total Protein Albumin Arterial Blood Glucose 225 H Arterial Blood Ionized Calcium 4.4 L Urine WBC (Auto) Urine Creatinine 08/26/20 08/26/20 08/26/20 04:14 05:04 05:04 WBC 17.9 H RBC 3.05 L Hgb 8.3 L Hct 25.6 L MCH 27 L MCHC RDW 15.3 H Lymph % (Auto) Lymph # (Auto) Seg Neutrophils % Seg Neuts % (Manual) 96.0 H Lymphocytes % (Manual) 1.0 L Seg Neutrophils # Seg Neutrophils # Man 17.2 H Lymphocytes # (Manual) 0.2 L D-Dimer ABG pH POC ABG pO2 131.3 H ABG pO2 ABG HCO3 ABG Hemoglobin 8.6 L ABG Oxyhemoglobin 98.2 H ABG Sodium ABG Potassium ABG Glucose 182 H Oxyhemoglobin Carboxyhemoglobin 0.2 L Sodium Potassium Chloride Carbon Dioxide BUN 56 H Creatinine 3.4 H Glucose 187 H POC Glucose Lactic Acid Calcium 8.3 L Phosphorus Magnesium AST 54 H ALT 57 H Troponin T C-Reactive Protein Total Protein 5.4 L Albumin 2.9 L Arterial Blood Glucose 182 H Arterial Blood Ionized Calcium 4.3 L Urine WBC (Auto) Urine Creatinine 08/26/20 08/26/20 08/26/20 05:40 07:36 11:54 WBC RBC Hgb Hct MCH MCHC RDW Lymph % (Auto) Lymph # (Auto) Seg Neutrophils % Seg Neuts % (Manual) Lymphocytes % (Manual) Seg Neutrophils # Seg Neutrophils # Man Lymphocytes # (Manual) D-Dimer ABG pH POC ABG pO2 ABG pO2 ABG HCO3 ABG Hemoglobin ABG Oxyhemoglobin ABG Sodium ABG Potassium ABG Glucose Oxyhemoglobin Carboxyhemoglobin Sodium Potassium Chloride Carbon Dioxide BUN Creatinine Glucose POC Glucose 179 H 171 H 190 H Lactic Acid Calcium Phosphorus Magnesium AST ALT Troponin T C-Reactive Protein Total Protein Albumin Arterial Blood Glucose Arterial Blood Ionized Calcium Urine WBC (Auto) Urine Creatinine 08/26/20 08/26/20 08/26/20 15:14 17:00 18:50 WBC RBC Hgb Hct MCH MCHC RDW Lymph % (Auto) Lymph # (Auto) Seg Neutrophils % Seg Neuts % (Manual) Lymphocytes % (Manual) Seg Neutrophils # Seg Neutrophils # Man Lymphocytes # (Manual) D-Dimer ABG pH POC ABG pO2 ABG pO2 ABG HCO3 ABG Hemoglobin ABG Oxyhemoglobin ABG Sodium ABG Potassium ABG Glucose Oxyhemoglobin Carboxyhemoglobin Sodium Potassium Chloride Carbon Dioxide BUN Creatinine Glucose POC Glucose 158 H Lactic Acid Calcium Phosphorus Magnesium AST ALT Troponin T C-Reactive Protein 7.80 H Total Protein Albumin Arterial Blood Glucose Arterial Blood Ionized Calcium Urine WBC (Auto) Urine Creatinine 67.4 H 08/26/20 08/27/20 08/27/20 22:01 04:10 05:12 WBC RBC Hgb Hct MCH MCHC RDW Lymph % (Auto) Lymph # (Auto) Seg Neutrophils % Seg Neuts % (Manual) Lymphocytes % (Manual) Seg Neutrophils # Seg Neutrophils # Man Lymphocytes # (Manual) D-Dimer ABG pH 7.454 H POC ABG pO2 74.9 L ABG pO2 ABG HCO3 ABG Hemoglobin 7.9 L ABG Oxyhemoglobin ABG Sodium ABG Potassium ABG Glucose 117 H Oxyhemoglobin Carboxyhemoglobin Sodium Potassium Chloride Carbon Dioxide BUN Creatinine Glucose POC Glucose 122 H 117 H Lactic Acid Calcium Phosphorus Magnesium AST ALT Troponin T C-Reactive Protein Total Protein Albumin Arterial Blood Glucose 117 H Arterial Blood Ionized Calcium 4.4 L Urine WBC (Auto) Urine Creatinine 08/27/20 08/27/20 08/27/20 07:24 07:24 11:08 WBC 12.7 H RBC 2.92 L Hgb 8.1 L Hct 24.4 L MCH MCHC RDW 15.4 H Lymph % (Auto) 5.9 L Lymph # (Auto) 0.8 L Seg Neutrophils % 86.9 H Seg Neuts % (Manual) Lymphocytes % (Manual) Seg Neutrophils # 11.0 H Seg Neutrophils # Man Lymphocytes # (Manual) D-Dimer ABG pH POC ABG pO2 ABG pO2 ABG HCO3 ABG Hemoglobin ABG Oxyhemoglobin ABG Sodium ABG Potassium ABG Glucose Oxyhemoglobin Carboxyhemoglobin Sodium Potassium Chloride Carbon Dioxide BUN 60 H Creatinine 3.6 H Glucose 135 H POC Glucose 139 H Lactic Acid Calcium Phosphorus Magnesium AST ALT Troponin T C-Reactive Protein Total Protein 5.3 L Albumin 2.6 L Arterial Blood Glucose Arterial Blood Ionized Calcium Urine WBC (Auto) Urine Creatinine 08/27/20 08/27/20 08/27/20 11:19 17:31 23:25 WBC RBC Hgb Hct MCH MCHC RDW Lymph % (Auto) Lymph # (Auto) Seg Neutrophils % Seg Neuts % (Manual) Lymphocytes % (Manual) Seg Neutrophils # Seg Neutrophils # Man Lymphocytes # (Manual) D-Dimer ABG pH POC ABG pO2 ABG pO2 ABG HCO3 ABG Hemoglobin ABG Oxyhemoglobin ABG Sodium ABG Potassium ABG Glucose Oxyhemoglobin Carboxyhemoglobin Sodium Potassium Chloride Carbon Dioxide BUN Creatinine Glucose POC Glucose 143 H 140 H 123 H Lactic Acid Calcium Phosphorus Magnesium AST ALT Troponin T C-Reactive Protein Total Protein Albumin Arterial Blood Glucose Arterial Blood Ionized Calcium Urine WBC (Auto) Urine Creatinine 08/28/20 08/28/20 08/28/20 03:50 04:19 04:19 WBC RBC 2.80 L Hgb 7.8 L Hct 23.6 L MCH MCHC RDW 15.8 H Lymph % (Auto) Lymph # (Auto) Seg Neutrophils % Seg Neuts % (Manual) Lymphocytes % (Manual) Seg Neutrophils # Seg Neutrophils # Man Lymphocytes # (Manual) D-Dimer ABG pH 7.329 L POC ABG pO2 ABG pO2 76.7 L ABG HCO3 27.0 H ABG Hemoglobin 7.5 L ABG Oxyhemoglobin ABG Sodium ABG Potassium ABG Glucose Oxyhemoglobin 93.6 L Carboxyhemoglobin Sodium 135 L Potassium Chloride Carbon Dioxide BUN 64 H Creatinine 3.8 H Glucose 143 H POC Glucose Lactic Acid Calcium 8.0 L Phosphorus Magnesium AST ALT Troponin T C-Reactive Protein Total Protein 4.8 L Albumin 2.4 L Arterial Blood Glucose Arterial Blood Ionized Calcium Urine WBC (Auto) Urine Creatinine 08/28/20 08/28/20 08/28/20 05:35 11:22 17:18 WBC RBC Hgb Hct MCH MCHC RDW Lymph % (Auto) Lymph # (Auto) Seg Neutrophils % Seg Neuts % (Manual) Lymphocytes % (Manual) Seg Neutrophils # Seg Neutrophils # Man Lymphocytes # (Manual) D-Dimer ABG pH POC ABG pO2 ABG pO2 ABG HCO3 ABG Hemoglobin ABG Oxyhemoglobin ABG Sodium ABG Potassium ABG Glucose Oxyhemoglobin Carboxyhemoglobin Sodium Potassium Chloride Carbon Dioxide BUN Creatinine Glucose POC Glucose 147 H 182 H 216 H Lactic Acid Calcium Phosphorus Magnesium AST ALT Troponin T C-Reactive Protein Total Protein Albumin Arterial Blood Glucose Arterial Blood Ionized Calcium Urine WBC (Auto) Urine Creatinine 08/28/20 08/28/20 08/29/20 21:04 23:20 04:32 WBC RBC Hgb Hct MCH MCHC RDW Lymph % (Auto) Lymph # (Auto) Seg Neutrophils % Seg Neuts % (Manual) Lymphocytes % (Manual) Seg Neutrophils # Seg Neutrophils # Man Lymphocytes # (Manual) D-Dimer ABG pH POC ABG pO2 ABG pO2 ABG HCO3 ABG Hemoglobin ABG Oxyhemoglobin ABG Sodium ABG Potassium ABG Glucose Oxyhemoglobin Carboxyhemoglobin Sodium 135 L Potassium Chloride 96.0 L Carbon Dioxide BUN 67 H Creatinine 3.8 H Glucose 200 H POC Glucose 204 H 242 H Lactic Acid Calcium 8.2 L Phosphorus Magnesium AST ALT Troponin T C-Reactive Protein Total Protein Albumin Arterial Blood Glucose Arterial Blood Ionized Calcium Urine WBC (Auto) Urine Creatinine 08/29/20 08/29/20 08/29/20 04:32 04:50 04:59 WBC RBC 3.25 L Hgb 9.0 L Hct 27.0 L MCH MCHC RDW 16.1 H Lymph % (Auto) Lymph # (Auto) Seg Neutrophils % Seg Neuts % (Manual) Lymphocytes % (Manual) Seg Neutrophils # Seg Neutrophils # Man Lymphocytes # (Manual) D-Dimer ABG pH POC ABG pO2 ABG pO2 ABG HCO3 ABG Hemoglobin 8.8 L ABG Oxyhemoglobin ABG Sodium ABG Potassium ABG Glucose Oxyhemoglobin Carboxyhemoglobin Sodium Potassium Chloride Carbon Dioxide BUN Creatinine Glucose POC Glucose 201 H Lactic Acid Calcium Phosphorus Magnesium AST ALT Troponin T C-Reactive Protein Total Protein Albumin Arterial Blood Glucose Arterial Blood Ionized Calcium Urine WBC (Auto) Urine Creatinine 08/29/20 08/29/20 08/29/20 11:10 11:28 17:50 WBC RBC Hgb Hct MCH MCHC RDW Lymph % (Auto) Lymph # (Auto) Seg Neutrophils % Seg Neuts % (Manual) Lymphocytes % (Manual) Seg Neutrophils # Seg Neutrophils # Man Lymphocytes # (Manual) D-Dimer ABG pH POC ABG pO2 ABG pO2 78.7 L ABG HCO3 26.6 H ABG Hemoglobin 9.8 L ABG Oxyhemoglobin ABG Sodium ABG Potassium ABG Glucose Oxyhemoglobin 94.3 L Carboxyhemoglobin Sodium Potassium Chloride Carbon Dioxide BUN Creatinine Glucose POC Glucose 219 H 203 H Lactic Acid Calcium Phosphorus Magnesium AST ALT Troponin T C-Reactive Protein Total Protein Albumin Arterial Blood Glucose Arterial Blood Ionized Calcium Urine WBC (Auto) Urine Creatinine 08/29/20 08/29/20 08/30/20 21:31 23:28 04:14 WBC RBC Hgb Hct MCH MCHC RDW Lymph % (Auto) Lymph # (Auto) Seg Neutrophils % Seg Neuts % (Manual) Lymphocytes % (Manual) Seg Neutrophils # Seg Neutrophils # Man Lymphocytes # (Manual) D-Dimer ABG pH POC ABG pO2 ABG pO2 ABG HCO3 ABG Hemoglobin ABG Oxyhemoglobin ABG Sodium ABG Potassium ABG Glucose Oxyhemoglobin Carboxyhemoglobin Sodium 132 L Potassium Chloride 94.8 L Carbon Dioxide BUN 68 H Creatinine 3.7 H Glucose 214 H POC Glucose 204 H 215 H Lactic Acid Calcium Phosphorus Magnesium AST ALT Troponin T C-Reactive Protein Total Protein Albumin Arterial Blood Glucose Arterial Blood Ionized Calcium Urine WBC (Auto) Urine Creatinine 08/30/20 08/30/20 08/30/20 05:10 11:33 17:32 WBC RBC Hgb Hct MCH MCHC RDW Lymph % (Auto) Lymph # (Auto) Seg Neutrophils % Seg Neuts % (Manual) Lymphocytes % (Manual) Seg Neutrophils # Seg Neutrophils # Man Lymphocytes # (Manual) D-Dimer ABG pH POC ABG pO2 ABG pO2 ABG HCO3 ABG Hemoglobin ABG Oxyhemoglobin ABG Sodium ABG Potassium ABG Glucose Oxyhemoglobin Carboxyhemoglobin Sodium Potassium Chloride Carbon Dioxide BUN Creatinine Glucose POC Glucose 210 H 194 H 202 H Lactic Acid Calcium Phosphorus Magnesium AST ALT Troponin T C-Reactive Protein Total Protein Albumin Arterial Blood Glucose Arterial Blood Ionized Calcium Urine WBC (Auto) Urine Creatinine 08/30/20 08/30/20 08/30/20 21:39 23:21 Unknown WBC RBC Hgb Hct MCH MCHC RDW Lymph % (Auto) Lymph # (Auto) Seg Neutrophils % Seg Neuts % (Manual) Lymphocytes % (Manual) Seg Neutrophils # Seg Neutrophils # Man Lymphocytes # (Manual) D-Dimer ABG pH POC ABG pO2 ABG pO2 99.0 H ABG HCO3 ABG Hemoglobin 9.8 L ABG Oxyhemoglobin ABG Sodium ABG Potassium ABG Glucose Oxyhemoglobin Carboxyhemoglobin Sodium Potassium Chloride Carbon Dioxide BUN Creatinine Glucose POC Glucose 199 H 209 H Lactic Acid Calcium Phosphorus Magnesium AST ALT Troponin T C-Reactive Protein Total Protein Albumin Arterial Blood Glucose Arterial Blood Ionized Calcium Urine WBC (Auto) Urine Creatinine 08/31/20 08/31/20 08/31/20 04:10 05:19 10:57 WBC RBC Hgb Hct MCH MCHC RDW Lymph % (Auto) Lymph # (Auto) Seg Neutrophils % Seg Neuts % (Manual) Lymphocytes % (Manual) Seg Neutrophils # Seg Neutrophils # Man Lymphocytes # (Manual) D-Dimer ABG pH 7.451 H POC ABG pO2 ABG pO2 99.6 H ABG HCO3 ABG Hemoglobin 8.4 L ABG Oxyhemoglobin ABG Sodium ABG Potassium ABG Glucose Oxyhemoglobin Carboxyhemoglobin Sodium 133 L Potassium Chloride 96.4 L Carbon Dioxide BUN 74 H Creatinine 3.8 H Glucose 201 H POC Glucose 182 H Lactic Acid Calcium 7.6 L Phosphorus Magnesium AST ALT Troponin T C-Reactive Protein Total Protein Albumin Arterial Blood Glucose Arterial Blood Ionized Calcium Urine WBC (Auto) Urine Creatinine 08/31/20 08/31/20 08/31/20 10:57 12:32 17:15 WBC 11.4 H RBC 3.24 L Hgb 8.5 L Hct 26.6 L MCH 26 L MCHC RDW 15.6 H Lymph % (Auto) Lymph # (Auto) Seg Neutrophils % Seg Neuts % (Manual) Lymphocytes % (Manual) Seg Neutrophils # Seg Neutrophils # Man Lymphocytes # (Manual) D-Dimer ABG pH POC ABG pO2 ABG pO2 ABG HCO3 ABG Hemoglobin ABG Oxyhemoglobin ABG Sodium ABG Potassium ABG Glucose Oxyhemoglobin Carboxyhemoglobin Sodium Potassium Chloride Carbon Dioxide BUN Creatinine Glucose POC Glucose 217 H 203 H Lactic Acid Calcium Phosphorus Magnesium AST ALT Troponin T C-Reactive Protein Total Protein Albumin Arterial Blood Glucose Arterial Blood Ionized Calcium Urine WBC (Auto) Urine Creatinine 09/01/20 09/01/20 09/01/20 00:06 05:05 09:41 WBC RBC Hgb Hct MCH MCHC RDW Lymph % (Auto) Lymph # (Auto) Seg Neutrophils % Seg Neuts % (Manual) Lymphocytes % (Manual) Seg Neutrophils # Seg Neutrophils # Man Lymphocytes # (Manual) D-Dimer ABG pH POC ABG pO2 ABG pO2 ABG HCO3 ABG Hemoglobin ABG Oxyhemoglobin ABG Sodium ABG Potassium ABG Glucose Oxyhemoglobin Carboxyhemoglobin Sodium 134 L Potassium Chloride 95.2 L Carbon Dioxide BUN 81 H Creatinine 3.7 H Glucose 201 H POC Glucose 223 H 225 H Lactic Acid Calcium Phosphorus 4.60 H Magnesium 2.40 H AST ALT Troponin T C-Reactive Protein Total Protein Albumin Arterial Blood Glucose Arterial Blood Ionized Calcium Urine WBC (Auto) Urine Creatinine 09/01/20 09/01/20 09/01/20 09:41 12:51 13:08 WBC 11.5 H RBC 3.58 L Hgb 9.2 L Hct 29.7 L MCH 26 L MCHC RDW 16.0 H Lymph % (Auto) Lymph # (Auto) Seg Neutrophils % Seg Neuts % (Manual) Lymphocytes % (Manual) Seg Neutrophils # Seg Neutrophils # Man Lymphocytes # (Manual) D-Dimer ABG pH 7.462 H POC ABG pO2 ABG pO2 ABG HCO3 ABG Hemoglobin 9.5 L ABG Oxyhemoglobin ABG Sodium 130.4 L ABG Potassium ABG Glucose 208 H Oxyhemoglobin Carboxyhemoglobin 0.4 L Sodium Potassium Chloride Carbon Dioxide BUN Creatinine Glucose POC Glucose 182 H Lactic Acid Calcium Phosphorus Magnesium AST ALT Troponin T C-Reactive Protein Total Protein Albumin Arterial Blood Glucose 208 H Arterial Blood Ionized Calcium 4.5 L Urine WBC (Auto) Urine Creatinine 09/01/20 09/01/20 09/02/20 18:34 23:14 05:22 WBC RBC Hgb Hct MCH MCHC RDW Lymph % (Auto) Lymph # (Auto) Seg Neutrophils % Seg Neuts % (Manual) Lymphocytes % (Manual) Seg Neutrophils # Seg Neutrophils # Man Lymphocytes # (Manual) D-Dimer ABG pH POC ABG pO2 ABG pO2 ABG HCO3 ABG Hemoglobin ABG Oxyhemoglobin ABG Sodium ABG Potassium ABG Glucose Oxyhemoglobin Carboxyhemoglobin Sodium Potassium Chloride Carbon Dioxide BUN Creatinine Glucose POC Glucose 183 H 181 H 178 H Lactic Acid Calcium Phosphorus Magnesium AST ALT Troponin T C-Reactive Protein Total Protein Albumin Arterial Blood Glucose Arterial Blood Ionized Calcium Urine WBC (Auto) Urine Creatinine 09/02/20 09/02/20 09/02/20 07:35 11:16 17:39 WBC RBC Hgb Hct MCH MCHC RDW Lymph % (Auto) Lymph # (Auto) Seg Neutrophils % Seg Neuts % (Manual) Lymphocytes % (Manual) Seg Neutrophils # Seg Neutrophils # Man Lymphocytes # (Manual) D-Dimer ABG pH POC ABG pO2 ABG pO2 ABG HCO3 ABG Hemoglobin ABG Oxyhemoglobin ABG Sodium ABG Potassium ABG Glucose Oxyhemoglobin Carboxyhemoglobin Sodium 135 L Potassium Chloride 96.0 L Carbon Dioxide BUN 88 H Creatinine 3.7 H Glucose 187 H POC Glucose 228 H 165 H Lactic Acid Calcium Phosphorus Magnesium AST ALT Troponin T C-Reactive Protein Total Protein Albumin Arterial Blood Glucose Arterial Blood Ionized Calcium Urine WBC (Auto) Urine Creatinine 09/02/20 09/03/20 09/03/20 23:24 05:35 08:31 WBC 18.5 H RBC 2.80 L Hgb 7.8 L Hct 22.7 L D MCH MCHC 35 H RDW 15.3 H Lymph % (Auto) Lymph # (Auto) Seg Neutrophils % Seg Neuts % (Manual) Lymphocytes % (Manual) Seg Neutrophils # Seg Neutrophils # Man Lymphocytes # (Manual) D-Dimer ABG pH POC ABG pO2 ABG pO2 ABG HCO3 ABG Hemoglobin ABG Oxyhemoglobin ABG Sodium ABG Potassium ABG Glucose Oxyhemoglobin Carboxyhemoglobin Sodium Potassium Chloride Carbon Dioxide BUN Creatinine Glucose POC Glucose 167 H 180 H Lactic Acid Calcium Phosphorus Magnesium AST ALT Troponin T C-Reactive Protein Total Protein Albumin Arterial Blood Glucose Arterial Blood Ionized Calcium Urine WBC (Auto) Urine Creatinine 09/03/20 09/03/20 09/03/20 08:31 12:02 17:05 WBC RBC Hgb Hct MCH MCHC RDW Lymph % (Auto) Lymph # (Auto) Seg Neutrophils % Seg Neuts % (Manual) Lymphocytes % (Manual) Seg Neutrophils # Seg Neutrophils # Man Lymphocytes # (Manual) D-Dimer ABG pH POC ABG pO2 ABG pO2 ABG HCO3 ABG Hemoglobin ABG Oxyhemoglobin ABG Sodium ABG Potassium ABG Glucose Oxyhemoglobin Carboxyhemoglobin Sodium 134 L Potassium Chloride 96.6 L Carbon Dioxide BUN 96 H Creatinine 3.7 H Glucose 190 H POC Glucose 156 H 150 H Lactic Acid Calcium 8.1 L Phosphorus Magnesium AST ALT Troponin T C-Reactive Protein Total Protein Albumin Arterial Blood Glucose Arterial Blood Ionized Calcium Urine WBC (Auto) Urine Creatinine 09/03/20 09/04/20 09/04/20 23:31 05:23 09:49 WBC RBC Hgb Hct MCH MCHC RDW Lymph % (Auto) Lymph # (Auto) Seg Neutrophils % Seg Neuts % (Manual) Lymphocytes % (Manual) Seg Neutrophils # Seg Neutrophils # Man Lymphocytes # (Manual) D-Dimer ABG pH POC ABG pO2 ABG pO2 ABG HCO3 ABG Hemoglobin ABG Oxyhemoglobin ABG Sodium ABG Potassium ABG Glucose Oxyhemoglobin Carboxyhemoglobin Sodium Potassium Chloride 97.9 L Carbon Dioxide BUN 98 H Creatinine 4.0 H Glucose 171 H POC Glucose 143 H 165 H Lactic Acid Calcium Phosphorus Magnesium AST ALT Troponin T C-Reactive Protein Total Protein Albumin Arterial Blood Glucose Arterial Blood Ionized Calcium Urine WBC (Auto) Urine Creatinine 09/04/20 09/04/20 09/04/20 12:05 17:46 21:25 WBC RBC Hgb Hct MCH MCHC RDW Lymph % (Auto) Lymph # (Auto) Seg Neutrophils % Seg Neuts % (Manual) Lymphocytes % (Manual) Seg Neutrophils # Seg Neutrophils # Man Lymphocytes # (Manual) D-Dimer ABG pH POC ABG pO2 ABG pO2 ABG HCO3 ABG Hemoglobin ABG Oxyhemoglobin ABG Sodium ABG Potassium ABG Glucose Oxyhemoglobin Carboxyhemoglobin Sodium Potassium Chloride Carbon Dioxide BUN Creatinine Glucose POC Glucose 200 H 184 H 177 H Lactic Acid Calcium Phosphorus Magnesium AST ALT Troponin T C-Reactive Protein Total Protein Albumin Arterial Blood Glucose Arterial Blood Ionized Calcium Urine WBC (Auto) Urine Creatinine 09/05/20 09/05/20 09/05/20 00:06 04:34 08:40 WBC RBC Hgb Hct MCH MCHC RDW Lymph % (Auto) Lymph # (Auto) Seg Neutrophils % Seg Neuts % (Manual) Lymphocytes % (Manual) Seg Neutrophils # Seg Neutrophils # Man Lymphocytes # (Manual) D-Dimer ABG pH POC ABG pO2 ABG pO2 ABG HCO3 ABG Hemoglobin ABG Oxyhemoglobin ABG Sodium ABG Potassium ABG Glucose Oxyhemoglobin Carboxyhemoglobin Sodium 133 L Potassium Chloride 92.5 L Carbon Dioxide BUN 99 H Creatinine 3.6 H Glucose 167 H POC Glucose 198 H 189 H Lactic Acid Calcium Phosphorus Magnesium AST ALT Troponin T C-Reactive Protein Total Protein Albumin Arterial Blood Glucose Arterial Blood Ionized Calcium Urine WBC (Auto) Urine Creatinine
--- NOTE | 2020-09-05 11:05 | Consultation ---
History of Present Illness Consult date: 09/05/20 Chief complaint: Needs tracheostomy and PEG - History of present illness History of present illness: 75 yo female with respiratory failure. Needs tracheostomy and PEG. Past History Past Medical History: diabetes, GERD, heart failure, hypertension, renal failure, other (See HPI) Past Surgical History: hysterectomy Social history: , lives with family. denies: smoking, alcohol abuse, prescription drug abuse Family history: diabetes, hypertension Medications and Allergies Allergies Allergy/AdvReac Type Severity Reaction Status Date / Time No Known Allergies Allergy Verified 07/31/18 07:06 Home Medications Medication Instructions Recorded Confirmed Last Taken Type Albuterol Mdi (or & Nicu Only) 2 puff IH QID PRN #1 inhalation 08/07/18 03/14/20 Unknown Rx [ProAir HFA Inhaler] Sucralfate [Carafate] 1 gm PO ACHS #30 tablet 08/07/18 03/14/20 03/13/20 Rx Insulin Regular, Human [HumuLIN R] 0 unit SQ AC #1 vial 08/11/18 03/14/20 Unknown Rx Labetalol HCl [Labetalol 300mg TAB] 300 mg PO BID #60 tablet 11/11/19 03/14/20 03/14/20 Rx Furosemide [Lasix TAB] 80 mg PO DAILY #14 tablet 03/27/20 Unknown Rx Insulin Glargine [Lantus VIAL] 15 units SUB-Q QAM #1 vial 03/27/20 Unknown Rx amLODIPine 10 mg PO QDAY #30 tablet 03/27/20 Unknown Rx Active Meds: Active Medications Albuterol (Albuterol 2.5 Mg/3 Ml Nebu) 2.5 mg IH Q3HRT PRN PRN Reason: Shortness Of Breath Amlodipine Besylate (Amlodipine 5 Mg Tab) 5 mg PO QDAY [facility] [place] Last Admin: 09/05/20 09:54 Dose: 5 mg Documented by: Lipase/Protease/Amylase (Lipase 10,500/Protease 25,000/Amylase 43,750 (Units) Dr Gu) 1 each FEEDTUBE PRN PRN PRN Reason: For Clogged Feeding Tube Aspirin (Aspirin 81 Mg Tab Chew) 81 mg PO QDAY [facility] [place] Last Admin: 09/05/20 10:57 Dose: 81 mg Documented by: Atorvastatin Calcium (Atorvastatin 40 Mg Tab) 40 mg PO QHS [facility] [place] Last Admin: 09/04/20 21:30 Dose: 40 mg Documented by: Dextrose (Dextrose 50% In Water (25gm) 50 Ml Syringe) 50 ml IV Q30MIN PRN; Protocol PRN Reason: Hypoglycemia Famotidine (Famotidine 20 Mg Tab) 20 mg PO DAILY [facility] [place] Last Admin: 09/05/20 09:54 Dose: 20 mg Documented by: Furosemide (Furosemide 40 Mg/4 Ml Inj) 40 mg IV 0600,1800 [facility] [place] Last Admin: 09/05/20 05:12 Dose: Not Given Documented by: Heparin Sodium (Porcine) (Heparin 5,000 Unit/1 Ml Vial) 5,000 unit SUB-Q Q12HR [facility] [place] Last Admin: 09/05/20 09:55 Dose: 5,000 unit Documented by: Hydralazine HCl (Hydralazine 20 Mg/1 Ml Inj) 10 mg IV Q4HR PRN PRN Reason: Blood Pressure Last Admin: 09/04/20 11:06 Dose: 10 mg Documented by: Hydralazine HCl (Hydralazine 25 Mg Tab) 50 mg PO Q8HR [facility] [place] Last Admin: 09/05/20 05:10 Dose: 50 mg Documented by: Hydrophilic Ointment (Lip Therapy Vaseline) 1 applic TP Q2HR PRN PRN Reason: Dry Lips Last Admin: 08/25/20 11:57 Dose: 1 applic Documented by: Lacosamide 200 mg/ Sodium (Chloride) 120 mls @ 100 mls/hr IV Q12H [facility] [place] Last Admin: 09/05/20 00:14 Dose: 100 mls/hr Documented by: Levetiracetam 500 mg/ Dextrose 105 mls @ 400 mls/hr IV Q12HR [facility] [place] Last Admin: 09/05/20 10:57 Dose: 400 mls/hr Documented by: Insulin Glargine (Insulin Glargine 100 Units/Ml) 25 units SUB-Q QHS [facility] [place] Last Admin: 09/04/20 21:34 Dose: 25 units Documented by: Insulin Human Lispro (Insulin Lispro 100 Unit/Ml) 0 unit SUB-Q Q6HR [facility] [place]; Protocol Last Admin: 09/05/20 05:11 Dose: Not Given Documented by: Lorazepam (Lorazepam 2 Mg/Ml Vial) 2 mg IV Q1H PRN PRN Reason: Seizures Last Admin: 09/03/20 15:24 Dose: 2 mg Documented by: Metoprolol Tartrate (Metoprolol Tartrate 25 Mg Tab) 12.5 mg PO BID [facility] [place] Last Admin: 09/05/20 09:55 Dose: Not Given Documented by: Multi-Ingred Cream/Lotion/Oil/Oint (Mineral Oil/Petrolatum, White Ophth Oint 3.5 Gm) 1 applic OU Q4HR PRN PRN Reason: Dry Eye(s) Senna/Docusate Sodium (Sennosides/Docusate Sodium 8.6/50 Mg Tab) 1 tab FEEDTUBE BID [facility] [place] Last Admin: 09/05/20 09:54 Dose: 1 tab Documented by: Simple Syrup (Simple Syrup 15 Ml) 15 ml FEEDTUBE PRN PRN PRN Reason: Hypoglycemia Simple Syrup (Simple Syrup 15 Ml) 30 ml FEEDTUBE PRN PRN PRN Reason: Hypoglycemia Sodium Bicarbonate (Sodium Bicarbonate 325 Mg Tab) 325 mg FEEDTUBE PRN PRN PRN Reason: For Clogged Feeding Tube Sodium Chloride (Sodium Chloride 0.9% 10 Ml Flush Syringe) 10 ml IV BID [facility] [place] Last Admin: 09/05/20 09:57 Dose: 10 ml Documented by: Sodium Chloride (Sodium Chloride 0.9% 10 Ml Flush Syringe) 10 ml IV PRN PRN PRN Reason: LINE FLUSH Last Admin: 08/29/20 04:05 Dose: 10 ml Documented by: Tamsulosin HCl (Tamsulosin 0.4 Mg Cap) 0.4 mg PO QDAY [facility] [place] Last Admin: 09/05/20 09:54 Dose: 0.4 mg Documented by: Review of Systems ROS unobtainable: due to mental status Exam Vital Signs Pulse Resp Pulse Ox 53 L 16 95 08/25/20 10:42 08/25/20 10:42 08/25/20 10:42 - General physical appearance Positive: well developed, well nourished, no distress - Eyes Positive: PERRL - ENT Positive: normal pinna, normal nares, normal mucosa, no hearing loss, no c ongestion - Neck Positive: no masses, no bruits, trachea midline, no venous distension - Respiratory Positive: normal expansion, normal respiratory effort, clear to auscultation - Cardiovascular Rhythm: regular Heart Sounds: Present: S1 & S2. Absent: rub, click - Extremities Extremities: no ischemia, pulses symmetrical, No edema - Breasts Breasts: normal, no mass, no skin changes - Abdomen Abdomen: Present: soft, bowel sounds normal. Absent: tender, distended Hernia: none - Genitourinary Male Genitourinary: normal Female Genitourinary: normal - Integumentary no rash, no growths, no abnormal pigmentation Results - Labs 09/03/20 08:31 09/05/20 08:40 Abnormal lab results 09/04/20 09/04/20 09/04/20 Range/Units 12:05 17:46 21:25 Sodium (137-145) mmol/L Chloride (98-107) mmol/L BUN (7-17) mg/dL Creatinine (0.6-1.2) mg/dL Glucose (65-100) mg/dL POC Glucose 200 H 184 H 177 H (70-105) mg/dL 09/05/20 09/05/20 09/05/20 Range/Units 00:06 04:34 08:40 Sodium 133 L (137-145) mmol/L Chloride 92.5 L (98-107) mmol/L BUN 99 H (7-17) mg/dL Creatinine 3.6 H (0.6-1.2) mg/dL Glucose 167 H (65-100) mg/dL POC Glucose 198 H 189 H (70-105) mg/dL Diabetes panel 09/05/20 Range/Units 08:40 Sodium 133 L (137-145) mmol/L Potassium 3.6 (3.6-5.0) mmol/L Chloride 92.5 L (98-107) mmol/L Carbon Dioxide 26 (22-30) mmol/L BUN 99 H (7-17) mg/dL Creatinine 3.6 H (0.6-1.2) mg/dL Glucose 167 H (65-100) mg/dL Calcium 9.0 (8.4-10.2) mg/dL Calcium panel 09/05/20 Range/Units 08:40 Calcium 9.0 (8.4-10.2) mg/dL Pituitary panel 09/05/20 Range/Units 08:40 Sodium 133 L (137-145) mmol/L Potassium 3.6 (3.6-5.0) mmol/L Chloride 92.5 L (98-107) mmol/L Carbon Dioxide 26 (22-30) mmol/L BUN 99 H (7-17) mg/dL Creatinine 3.6 H (0.6-1.2) mg/dL Glucose 167 H (65-100) mg/dL Calcium 9.0 (8.4-10.2) mg/dL Adrenal panel 09/05/20 Range/Units 08:40 Sodium 133 L (137-145) mmol/L Potassium 3.6 (3.6-5.0) mmol/L Chloride 92.5 L (98-107) mmol/L Carbon Dioxide 26 (22-30) mmol/L BUN 99 H (7-17) mg/dL Creatinine 3.6 H (0.6-1.2) mg/dL Glucose 167 H (65-100) mg/dL Calcium 9.0 (8.4-10.2) mg/dL Assessment and Plan 1) Chronic respiratory failure Plan: 1) Open tracheostomy and PEG in next 24-48 hours 2) CBC in the am 3) Prophylactic Ancef
[2020-09-05] MEDS ORDERED: TAMSULOSIN 0.4 MG CAP PO ONE (13:00)
[2020-09-05] MEDS: VALPROATE SODIUM 750 MG in SODIUM CHLORIDE 0.9% 100 ML IV SCH ×2 (13:08→21:47)
[2020-09-05] MEDS ORDERED: ATROPINE 0.1% (1 MG/10 ML) CARDIAC SYRINGE IV PRN (13:09)
--- NOTE | 2020-09-05 13:09 | Progress Note ---
Assessment and Plan Episodic bradycardia noted on telemetry * Cardiology is currently following in PRN capacity. Patient is not currently considered a candidate for cardiology procedures due to profound anoxic injury has noted via MRI brain. * Due to episodic bradycardia hold all AV denia blocking agents, recommend avoid QT prolonging medications. Initiate atropine 0.5 mg as needed for profound bradycardia not to exceed 3 mg within 24 hours. S/p cardiac arrest with ROSC * Prevailing rhythm during arrest was asystole. Patient is currently off sedation and continues to be unresponsive. 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 Chronic respiratory failure * Currently intubated with plans for trach and PEG placement within the next 48 hours Mild cardiomyopathy * Echocardiogram reviewed: LVEF is 40 to 45%. LV is normal size. LV SF is mildly decreased. Mild diastolic dysfunction. Right ventricle is mildly dilated. Moderate pulmonary hypertension RVSP 45 mmHg. * Continue GDMT: Aspirin 81, atorvastatin 40, metoprolol 2.5 mg IV every 6, no NITIN/ARB in setting of FLORIDALMA. Acute kidney injury in setting of chronic renal disease * No NITIN/ARB in setting of FLORIDALMA. Avoid nephrotoxic agents. Nephrology is following. Patient is scheduled for trach and PEG procedure in a.m. Patient evaluated with revised cardiac risk index: Class IV risk. 15% 30-day risk of , MA or cardiac arrest. Patient has repeat episodes of profound bradycardia, may consider placement of temporary pacemaker if this is in line with family's wishes. Will follow on as- needed basis. This patient was seen in conjunction with Dr. Gallagher who agrees with assessment and plan of care - Patient Problems (1) Cardiac arrest Current Visit: Yes Status: Acute (2) Anoxic encephalopathy Current Visit: Yes Status: Acute (3) Multifocal pneumonia Current Visit: Yes Status: Acute (4) Acute renal failure superimposed on chronic kidney disease Current Visit: Yes Status: Acute (5) Cardiomyopathy Current Visit: Yes Status: Chronic (6) Diabetes Current Visit: Yes Status: Chronic (7) Hypertension Current Visit: Yes Status: Chronic (8) DVT prophylaxis Current Visit: Yes Status: Acute (9) Anemia Current Visit: Yes Status: Chronic Qualifiers: Anemia type: unspecified type Qualified Code(s): D64.9 - Anemia, unspecified Subjective Date of service: 09/05/20 Principal diagnosis: Ac. hypoxemic resp failure; Cardiac arrest; AMS; AE-CHF; Hyperkalemia; FLORIDALMA Interval history: Patient is intubated and unresponsive Objective Last Vital Signs Temp 97.4 F L 09/05/20 12:00 Pulse 39 L 09/05/20 12:35 Resp 22 09/05/20 11:15 BP 147/54 09/05/20 11:15 Pulse Ox 100 09/05/20 12:35 - Physical Examination General: Other (Intubated unresponsive) HEENT: Positive: Normocephaly, Mucus Membranes Moist Neck: Positive: neck supple, trachea midline Cardiac: Positive: Regular Rhythm, S1/S2 Lungs: Positive: Ventilated Respirations Neuro: Positive: Other (Intubated unresponsive. Profound anoxic injury confirmed by MRI) Abdomen: Positive: Unremarkable Skin: Negative: Rash Musculoskeletal: other (Intubated unresponsive) Extremities: Present: upper extr. pulses, lower extr. pulses. Absent: edema - Labs and Meds Comprehensive Metabolic Panel 09/05/20 Range/Units 08:40 Sodium 133 L (137-145) mmol/L Potassium 3.6 (3.6-5.0) mmol/L Chloride 92.5 L (98-107) mmol/L Carbon Dioxide 26 (22-30) mmol/L BUN 99 H (7-17) mg/dL Creatinine 3.6 H (0.6-1.2) mg/dL Glucose 167 H (65-100) mg/dL Calcium 9.0 (8.4-10.2) mg/dL - Imaging and Cardiology EKG: report reviewed, image reviewed Echo: report reviewed (Echocardiogram reviewed: LVEF is 40 to 45%. LV is normal size. LV SF is mildly decreased. Mild diastolic dysfunction. Right ventricle is mildly dilated. Moderate pulmonary hypertension RVSP 45 mmHg. ) - Telemetry EKG Rhythm: Sinus Bradycardia - EKG Sinus rhythms and dysrhythmias: sinus bradycardia - Allied health notes Allied health notes reviewed: nursing
--- NOTE | 2020-09-05 13:12 | Progress Note ---
Assessment and Plan This is a 75-year-old female with CHF, OHS DM, CKD, morbid obesity, GERD, hypertension, chronic respiratory failure admitted s/p cardiac arrest A/P --Anoxic encephalopathy -Neurology consulted, appreciate recommendations -08/25 [address] head shows no CT evidence of acute abnormality -08/28 MRI brain without contrast shows abnormal diffusion and FLAIR signal abnormality which may suggest hypoxic/ischemic brain injury, hypoglycemic encephalopathy and perhaps Creutsfeldt-Cornelius disease otherwise no focal mass, hemorrhage or hydrocephalus seen -08/30 EEG- results pending Seizure -Keppra 500 mg mg BID , vimpat, Ativan as needed for facial twitching -Seizure/aspiration precautions -per neuro prognosis poor based on MRI -NO mind altering medications - to allow for neuro assessment and brain function -opens eyes spontaneously ; pupils not reactive to light; neg threat; pos cough; withdrawal on right to deep pain; no response to deep pain on left Pt has 8 living children- updated on plan of care --S/p cardiac arrest with prolonged down time- see ER note -ddimer elevated on admit following cardiac arrest -Cardiology has seen and signed off- call if needed -08/25 echocardiogram shows LVEF 40 to 45%, LV normal size, LV systolic function mildly decreased, mild diastolic dysfunction, mildly dilated right ventricle, pulmonary hypertension RVSP 45 mmHg -asa and statin Hypertension -home norvasc , hydral added -Blood pressure monitoring per protocol -IV hydralazine as needed --Acute hypoxic respiratory failure -Chronic respiratory insufficiency at home with 3 L oxygen via nasal cannula -remains intubated and ventilated on cpap this AM -Wean as tolerated; trend pulse ox -CCM following -VAP bundle -nebs as needed Multifocal pneumonia/ ? aspiration event -08/25 CXR shows worsening patchy bilateral pulmonary opacities -08/25 CTA chest shows no evidence of pulmonary embolism, bilateral pulmonary processes with large bilateral pleural effusions, pneumonia is a concern, pulmonary edema could be a similar appearance versus pulmonary edema --Protein Calorie Malnutrition TF per nutrition bowel reg. --FLORIDALMA on CKD secondary to patient under nephropathy -Nephrology consulted, patient recommendations -Daily weights -Avoid nephrotoxic medications; avoid NITIN/ARB -bladder scan with high residuals requiring frequent intermittent caths so foreman replaced at 1230 -trend and replace electrolytes as needed -Trend Cr --Urinary retention -Foreman replaced 08/31 for urinary retention --Anemia -Admit H/H 8.6/27.8 -Transfuse for hemoglobin less than 7 -Trend CBC --VTE prophylaxis with SCD and SQH --Pneumonia -trend WBC and temp curve -afebrile -trend cultures -covid neg on admit --Diabetes mellitus -SSI -Lantus, increase as needed -Accu-Cheks every 6h -avoid hypoglycemia -hx obesity DVT/GI prophylaxis: SCDs to bilateral lower extremities heparin subcu, PPI Disposition: ICU, need to discuss with family plan of care, general surgery was consulted for PEG and trach, patient is still making decisions on patient's care. Lines: PIV; foreman The high probability of a clinically significant, sudden or life threatening deterioration of the [cardiac, pulmonary, neuro, renal, infectious disease] system(s) required my full and direct attention, intervention and personal management. The aggregate critical care time was [35] minutes. This time is in addition to time spent performing reported procedures but includes the following: [x] Data Review and interpretation [x] Patient assessment and monitoring of vital signs [x] Documentation [x] Medication orders and management Brief History: This is a 69-year-old female with OHS, DM, CKD stage IV, morbid obesity CHF, GERD, HTN, chronic respiratory failure on 3 L of home oxygen via nasal cannula who presented to the emergency department on 08/25 after being found down unresponsive at 0950 hours by family and upon EMS arrival she was unresponsive and asystolic arrest. Patient was treated with ACLS protocol with eventual ROSC after at least 15 minutes of ACLS and patient was transported to [facility]. In the emergency department patient was found to have acute hypoxic respiratory failure and subsequently intubated on vasopressor support, she underwent a CXR which showed bilateral pneumonia and exam is consistent with SIRS. CCM and cardiology were consulted and patient was admitted to the hospital service with acute hypoxic respiratory failure, anoxic encephalopathy, s/p cardiac arrest, multifocal pneumonia, FLORIDALMA on CKD. Daily clinical course: 08/26/20 patient is seen and examined. Patient is on vent. WBC 17.9 and hemoglobin 8.3 hematocrit 25.6. Patient may have 1 episode of questionable seizure. Patient BUN is 56 creatinine 3.4. Will consult nephrology. We also start the patient on Rocephin 2 g IV daily and Zithromax. Aspirin 81 mg p.o. daily and Lipitor. Patient is having echocardiogram. Cardiology and critical care will see the patient as consult tension. Continue current management. We have started on NG tube feeding and consult nutrition for evaluation. Recheck CBC BMP in the morning. Case discussed with daughter Leena [phone] 08/27: Patient remains on full ventilatory support, considering concern for seizure yesterday under the circumstance of out of hospital cardiac arrest, and concern for anoxic encephalopathy, will proceed with Neurology consultation. 08/28: At the time my examination patient sedation of propofol 30 and fentanyl 1 was being held and she was on CMV tidal and 450, rate of 18, PEEP of 6 and FiO2 of 35%. Neurology was consulted. I updated the patient's daughter Leena Payton at bedside and told her of the pending tests the neurologist has ordered. 08/29: Increase in Lantus due to persistent hypoglycemia, chest ultrasound ordered for possible thoracentesis by [facility], MRI brain pending. Remove Foreman catheter if okay with nephrology. Increase in beta-skylar by [facility] however cardiology decreased hydralazine per neurology recommendations. At the time my examination patient was on CPAP trial pressure support of 12, PEEP of 6 and 35% FiO2. RT obtain an ABG we will continue CPAP as tolerated. 08/28: No acute events overnight. Noted to have seizure, addition of vimpat 08/29: Chest US noted to have pleural effusions, cxr shows pulmonary edema, nephro ordered lasix x1. CCM and nephro had conversation son at bedside. Surgery consulted for trach/peg. [facility] plans for IR thora if family decides aggressive care 08/30 No acute overnight events 08/31: given 80mg lasix by nephro, increase in lantus, Dulcolax suppository given for no recorded BM for 5 to 6 days 72: Patient did not have a further response to 80 mg of Lasix yesterday, no acute events reported overnight, patient is having several loose BMs 09/02: Patient was having facial twitching this morning, 1 mg of Ativan was given to the patient, Keppra was increased. No family at the bedside. 09/04: Patient continues to have facial twitching, neurology has made adjustments to medications for seizure control, spoke with critical care and the son at the bedside, family still deciding on the final route of care 09/05: Patient seen and examined in the ICU, continue to have social drinking. General surgery consulted for trach and PEG. Patient with CPAP vent setting. Subjective Date of service: 09/05/20 Principal diagnosis: Ac. hypoxemic resp failure; Cardiac arrest; AMS; AE-CHF; Hyperkalemia; FLORIDALMA Interval history: Patient seen and examined. Medical records and medication list reviewed. No acute event overnight noted by the RN. Vital reviewed, remains on mechanical ventilation Discussed plan of care at bedside with RN Objective - Exam Narrative Exam: GENERAL: well-developed and well-nourished elderly female lying on bed with ventilator support HEENT: Normocephalic. Atraumatic. No conjunctival congestion or icterus. Patient has moist mucous membranes. NECK: Supple. Trachea midline. CHEST/LUNGS: On mechanical ventilation with CPAP setting HEART/CARDIOVASCULAR: Regular in rate and rhythm. S1 and S2 positive. ABDOMEN: Abdomen is soft, nontender. Patient has normal bowel sounds. SKIN: There is no rash. Warm and dry. NEURO: Does not follow command MUSCULOSKELETAL: No joint effusion or tenderness. EXTRIMITY: No edema, no cyanosis or clubbing. PSYCH: Unable to assess - Constitutional Vitals: Vital Signs - 12hr 09/05/20 09/05/20 09/05/20 01:00 01:31 02:00 Temperature Pulse Rate 56 L 53 L 52 L Pulse Rate [ From Monitor] Respiratory 16 11 L 14 Rate Blood Pressure 121/49 140/53 139/53 O2 Sat by Pulse 99 100 100 Oximetry 09/05/20 09/05/20 09/05/20 02:05 02:30 03:00 Temperature Pulse Rate 55 L 58 L 53 L Pulse Rate [ 69 From Monitor] Respiratory 12 12 13 Rate Blood Pressure 146/60 129/56 O2 Sat by Pulse 99 100 100 Oximetry 09/05/20 09/05/20 09/05/20 03:20 03:31 03:47 Temperature 97.5 F L Pulse Rate 55 L 55 L Pulse Rate [ 69 From Monitor] Respiratory 12 13 Rate Blood Pressure 149/61 O2 Sat by Pulse 99 99 Oximetry 09/05/20 09/05/20 09/05/20 04:00 04:27 04:31 Temperature Pulse Rate 53 L 56 L 55 L Pulse Rate [ From Monitor] Respiratory 12 13 Rate Blood Pressure 134/54 134/54 147/59 O2 Sat by Pulse 100 100 100 Oximetry 09/05/20 09/05/20 09/05/20 05:00 05:10 05:31 Temperature Pulse Rate 52 L 57 L 55 L Pulse Rate [ 69 From Monitor] Respiratory 12 14 Rate Blood Pressure 132/56 132/56 156/65 O2 Sat by Pulse 100 99 100 Oximetry 09/05/20 09/05/20 09/05/20 06:01 06:30 07:00 Temperature Pulse Rate 50 L 52 L 50 L Pulse Rate [ From Monitor] Respiratory 12 12 11 L Rate Blood Pressure 135/55 127/54 126/53 O2 Sat by Pulse 100 100 100 Oximetry 09/05/20 09/05/20 09/05/20 07:30 07:45 07:52 Temperature Pulse Rate 49 L 52 L 54 L Pulse Rate [ From Monitor] Respiratory 13 21 Rate Blood Pressure 137/56 137/56 137/56 O2 Sat by Pulse 100 98 100 Oximetry 09/05/20 09/05/20 09/05/20 08:00 08:01 09:54 Temperature 97.5 F L Pulse Rate 55 L 55 L 58 L Pulse Rate [ 55 L From Monitor] Respiratory 22 17 Rate Blood Pressure 152/60 129/49 O2 Sat by Pulse 98 99 Oximetry 09/05/20 09/05/20 09/05/20 09:55 11:15 12:00 Temperature 97.4 F L Pulse Rate 53 L 55 L Pulse Rate [ From Monitor] Respiratory 22 Rate Blood Pressure 129/49 147/54 O2 Sat by Pulse 95 Oximetry - Labs CBC & Chem 7: 09/03/20 08:31 09/05/20 08:40 Labs: Abnormal lab results 09/04/20 09/04/20 09/05/20 Range/Units 17:46 21:25 00:06 Sodium (137-145) mmol/L Chloride (98-107) mmol/L BUN (7-17) mg/dL Creatinine (0.6-1.2) mg/dL Glucose (65-100) mg/dL POC Glucose 184 H 177 H 198 H (70-105) mg/dL 09/05/20 09/05/20 09/05/20 Range/Units 04:34 08:40 11:28 Sodium 133 L (137-145) mmol/L Chloride 92.5 L (98-107) mmol/L BUN 99 H (7-17) mg/dL Creatinine 3.6 H (0.6-1.2) mg/dL Glucose 167 H (65-100) mg/dL POC Glucose 189 H 171 H (70-105) mg/dL HEART Score - HEART Score Troponin: Troponin T 0.057 ng/mL (0.00-0.029) H 08/25/20 11:23
[2020-09-05] MEDS: LORazepam 2 MG/ML VIAL IV PRN (13:41)
--- NOTE | 2020-09-05 13:48 | Progress Note ---
Assessment and Plan Acute hypoxemic respiratory failure Cardiac arrest with ROSC Acute encephalopathy Multifocal pneumonia Possible bilateral pulmonary edema Congestive heart failure with an acute exacerbation Anemia Hyperkalemia Lactic acidosis Acute kidney injury Elevated serum transaminases Non-ST elevation NV Oropharyngeal dysphagia - Ativan 2mg IV X 1 - Begin Versed drip - get midline - hold SBT - cardiology notified - d/c metoprolol - increased Flomax to 0.98 mg qd re: persistent retention - tentativerly fopr trach and PEG ion am - EEG confirms seizure activity - AED's adjusted per neurologist - if persistent consider transfer for continuous EEG monitoring - consider thoracentesis depending on clinical progress - continue other care as below otherwise - continue Flomax for retention - continue neurology evaluation - continue Daily SAT and SBT assessment as tolerated meantime - continue to wean supplemental oxygen for target O2 sat's > 92% acutely - VAP bundle addressed - continue lung protective strategies - continue bronchodilators with pulmonary hygiene per RT - wean per pulmonary driven protocols otherwise - continue accuchecks with glycemic control per SSI (While critically ill target blood glucose of 140-180 mg/dL; avoid hypoglycemia) - sedation prn for target RASS -1 to -2 - avoid nephrotoxins, renally dose all medications - continue to avoid benzodiazepine's, reduce the possibility of delirium - complete AB's per ID rec's - prn analgesia per CPOT score - Maintenance of sleep-wake cycle, avoid delirium - enteral nutritional support at goal rate as tolerated - G.I. & VTE prophylaxis - PT/OT/ROM exercises - continue mobility protocols for pressure ulcer prophylaxis - Monitor hemodynamics closely - continue other care per attending / other consultants - discharge planning ongoing concurrently COVID SPECIFIC INTERVENTIONS - COVID-19 PCR negative .... Re-evaluate in am & prn CONDITION: CRITICAL PROGNOSIS: GUARDED CODE STATUS: FULL CODE The high probability of a clinically significant, sudden or life-threatening deterioration of the [respiratory, cardiovascular & neurologic] system(s) required my full and direct attention, intervention and personal management. The aggregate critical care time was [45] minutes without overlap. Time includes spent on; [x] Data Review and interpretation [x] Patient assessment and monitoring of vital signs [x] Documentation [x] Medication orders and management Subjective Date of service: 09/05/20 Principal diagnosis: Ac. hypoxemic resp failure; Cardiac arrest; AMS; AE-CHF; Hyperkalemia; FLORIDALMA Interval history: Patient is seen today for: Acute hypoxemic respiratory failure; Cardiac arrest with ROSC; Acute encephalopathy; Multifocal pneumonia; pulmonary edema; AE-CHF; Hyperkalemia; FLORIDALMA; NSTEMI Seen and examined at bedside; 24hour events reviewed; nursing and respiratory care staff consulted; no adverse overnight events reported to me; resting in bed; remains on MVS; AMS is persistent; having bradycardic episodes to the low 30's but did not loose a pulse or bewcome significantly hypotensive; also noticed with seizure activity and posturing at bedside; no emesis or overt a spiration; bitting her tongue during seizure activity; no N/V/F/C Objective Vital Signs - 12hr 09/05/20 09/05/20 09/05/20 02:00 02:05 02:30 Temperature Pulse Rate 52 L 55 L 58 L Pulse Rate [ 69 From Monitor] Respiratory 14 12 12 Rate Blood Pressure 139/53 146/60 O2 Sat by Pulse 100 99 100 Oximetry 09/05/20 09/05/20 09/05/20 03:00 03:20 03:31 Temperature Pulse Rate 53 L 55 L 55 L Pulse Rate [ 69 From Monitor] Respiratory 13 12 13 Rate Blood Pressure 129/56 149/61 O2 Sat by Pulse 100 99 99 Oximetry 09/05/20 09/05/20 09/05/20 03:47 04:00 04:27 Temperature 97.5 F L Pulse Rate 53 L 56 L Pulse Rate [ From Monitor] Respiratory 12 Rate Blood Pressure 134/54 134/54 O2 Sat by Pulse 100 100 Oximetry 09/05/20 09/05/20 09/05/20 04:31 05:00 05:10 Temperature Pulse Rate 55 L 52 L 57 L Pulse Rate [ 69 From Monitor] Respiratory 13 12 Rate Blood Pressure 147/59 132/56 132/56 O2 Sat by Pulse 100 100 99 Oximetry 09/05/20 09/05/20 09/05/20 05:31 06:01 06:30 Temperature Pulse Rate 55 L 50 L 52 L Pulse Rate [ From Monitor] Respiratory 14 12 12 Rate Blood Pressure 156/65 135/55 127/54 O2 Sat by Pulse 100 100 100 Oximetry 09/05/20 09/05/20 09/05/20 07:00 07:30 07:45 Temperature Pulse Rate 50 L 49 L 52 L Pulse Rate [ From Monitor] Respiratory 11 L 13 Rate Blood Pressure 126/53 137/56 137/56 O2 Sat by Pulse 100 100 98 Oximetry 09/05/20 09/05/20 09/05/20 07:52 08:00 08:01 Temperature 97.5 F L Pulse Rate 54 L 55 L 55 L Pulse Rate [ 55 L From Monitor] Respiratory 21 22 17 Rate Blood Pressure 137/56 152/60 O2 Sat by Pulse 100 98 99 Oximetry 09/05/20 09/05/20 09/05/20 09:54 09:55 11:15 Temperature Pulse Rate 58 L 53 L 55 L Pulse Rate [ From Monitor] Respiratory 22 Rate Blood Pressure 129/49 129/49 147/54 O2 Sat by Pulse 95 Oximetry 09/05/20 09/05/20 09/05/20 12:00 12:35 13:14 Temperature 97.4 F L Pulse Rate 39 L 41 L Pulse Rate [ From Monitor] Respiratory Rate Blood Pressure 138/53 O2 Sat by Pulse 100 Oximetry Constitutional: appears uncomfortable, other (elderly obese female with mild patient ventilator dyssynchrony) Eyes: non-icteric ENT: oropharynx moist, oropharyngeal exudate pre (clear, frothy), other (ETT 24 cm DIMAS) Neck: supple, no lymphadenopathy, no JVD Effort: mildly labored Ascultation: Bilateral: diminished breath sounds (bases), rhonchi (scant) Percussion: Bilateral: not dull Cardiovascular: regular rate and rhythm, other (S1,S2) Gastrointestinal: normoactive bowel sounds, soft, non-tender, non-distended Integumentary: normal Extremities: no cyanosis, no edema, pulses normal, no ischemia or petechiae Neurologic: pupils equal and round, unable to assess, other (facial and whole body seizures + bitting tongue) Psychiatric: other (unable to assess re: AMS) CBC and BMP: 09/03/20 08:31 09/05/20 08:40 ABG, PT/INR, D-dimer: ABG ABG pH 7.462 (7.320-7.450) H 09/01/20 12:51 POC ABG pCO2 39.5 mmHg (32.0-48.0) 09/01/20 12:51 ABG pCO2 36.6 mm Hg 08/31/20 04:10 POC ABG pO2 102.7 mmHg (83-108) 09/01/20 12:51 ABG pO2 99.6 mm Hg (80.0-90.0) H 08/31/20 04:10 POC ABG HCO3 27.6 09/01/20 12:51 ABG O2 Saturation 98.0 (0-100) 09/01/20 12:51 PT/INR, D-dimer D-Dimer > 99080 ng/mlDDU (0-234) H 08/25/20 11:23 Abnormal lab findings: Abnormal Labs 08/25/20 08/25/20 08/25/20 11:14 11:17 11:23 WBC 11.5 H RBC 3.22 L Hgb 8.6 L Hct 27.6 L MCH 27 L MCHC RDW 15.6 H Lymph % (Auto) Lymph # (Auto) Seg Neutrophils % Seg Neuts % (Manual) 89.0 H Lymphocytes % (Manual) 5.0 L Seg Neutrophils # Seg Neutrophils # Man 10.2 H Lymphocytes # (Manual) 0.6 L D-Dimer ABG pH 7.290 L POC ABG pO2 161.1 H ABG pO2 ABG HCO3 ABG Hemoglobin 8.9 L ABG Oxyhemoglobin 98.6 H ABG Sodium 135.2 L ABG Potassium 5.9 H ABG Glucose 210 H Oxyhemoglobin Carboxyhemoglobin 0.4 L Sodium Potassium Chloride Carbon Dioxide BUN Creatinine Glucose POC Glucose Lactic Acid Calcium Phosphorus Magnesium AST ALT Troponin T C-Reactive Protein Total Protein Albumin Arterial Blood Glucose 210 H Arterial Blood Ionized Calcium 4.4 L Urine WBC (Auto) 31.0 H Urine Creatinine 08/25/20 08/25/20 08/25/20 11:23 11:23 11:23 WBC RBC Hgb Hct MCH MCHC RDW Lymph % (Auto) Lymph # (Auto) Seg Neutrophils % Seg Neuts % (Manual) Lymphocytes % (Manual) Seg Neutrophils # Seg Neutrophils # Man Lymphocytes # (Manual) D-Dimer > 69596 H ABG pH POC ABG pO2 ABG pO2 ABG HCO3 ABG Hemoglobin ABG Oxyhemoglobin ABG Sodium ABG Potassium ABG Glucose Oxyhemoglobin Carboxyhemoglobin Sodium Potassium 6.4 H* Chloride Carbon Dioxide 21 L BUN 52 H Creatinine 3.5 H Glucose 194 H POC Glucose Lactic Acid 3.30 H* Calcium 8.1 L Phosphorus Magnesium AST 103 H ALT 77 H Troponin T 0.057 H C-Reactive Protein Total Protein 5.8 L Albumin 3.4 L Arterial Blood Glucose Arterial Blood Ionized Calcium Urine WBC (Auto) Urine Creatinine 08/25/20 08/25/20 08/25/20 13:51 15:45 20:34 WBC RBC Hgb Hct MCH MCHC RDW Lymph % (Auto) Lymph # (Auto) Seg Neutrophils % Seg Neuts % (Manual) Lymphocytes % (Manual) Seg Neutrophils # Seg Neutrophils # Man Lymphocytes # (Manual) D-Dimer ABG pH POC ABG pO2 66.3 L ABG pO2 ABG HCO3 ABG Hemoglobin 9.1 L ABG Oxyhemoglobin 92.5 L ABG Sodium ABG Potassium ABG Glucose 225 H Oxyhemoglobin Carboxyhemoglobin Sodium Potassium Chloride Carbon Dioxide BUN Creatinine Glucose POC Glucose 188 H 233 H Lactic Acid Calcium Phosphorus Magnesium AST ALT Troponin T C-Reactive Protein Total Protein Albumin Arterial Blood Glucose 225 H Arterial Blood Ionized Calcium 4.4 L Urine WBC (Auto) Urine Creatinine 08/26/20 08/26/20 08/26/20 04:14 05:04 05:04 WBC 17.9 H RBC 3.05 L Hgb 8.3 L Hct 25.6 L MCH 27 L MCHC RDW 15.3 H Lymph % (Auto) Lymph # (Auto) Seg Neutrophils % Seg Neuts % (Manual) 96.0 H Lymphocytes % (Manual) 1.0 L Seg Neutrophils # Seg Neutrophils # Man 17.2 H Lymphocytes # (Manual) 0.2 L D-Dimer ABG pH POC ABG pO2 131.3 H ABG pO2 ABG HCO3 ABG Hemoglobin 8.6 L ABG Oxyhemoglobin 98.2 H ABG Sodium ABG Potassium ABG Glucose 182 H Oxyhemoglobin Carboxyhemoglobin 0.2 L Sodium Potassium Chloride Carbon Dioxide BUN 56 H Creatinine 3.4 H Glucose 187 H POC Glucose Lactic Acid Calcium 8.3 L Phosphorus Magnesium AST 54 H ALT 57 H Troponin T C-Reactive Protein Total Protein 5.4 L Albumin 2.9 L Arterial Blood Glucose 182 H Arterial Blood Ionized Calcium 4.3 L Urine WBC (Auto) Urine Creatinine 08/26/20 08/26/20 08/26/20 05:40 07:36 11:54 WBC RBC Hgb Hct MCH MCHC RDW Lymph % (Auto) Lymph # (Auto) Seg Neutrophils % Seg Neuts % (Manual) Lymphocytes % (Manual) Seg Neutrophils # Seg Neutrophils # Man Lymphocytes # (Manual) D-Dimer ABG pH POC ABG pO2 ABG pO2 ABG HCO3 ABG Hemoglobin ABG Oxyhemoglobin ABG Sodium ABG Potassium ABG Glucose Oxyhemoglobin Carboxyhemoglobin Sodium Potassium Chloride Carbon Dioxide BUN Creatinine Glucose POC Glucose 179 H 171 H 190 H Lactic Acid Calcium Phosphorus Magnesium AST ALT Troponin T C-Reactive Protein Total Protein Albumin Arterial Blood Glucose Arterial Blood Ionized Calcium Urine WBC (Auto) Urine Creatinine 08/26/20 08/26/20 08/26/20 15:14 17:00 18:50 WBC RBC Hgb Hct MCH MCHC RDW Lymph % (Auto) Lymph # (Auto) Seg Neutrophils % Seg Neuts % (Manual) Lymphocytes % (Manual) Seg Neutrophils # Seg Neutrophils # Man Lymphocytes # (Manual) D-Dimer ABG pH POC ABG pO2 ABG pO2 ABG HCO3 ABG Hemoglobin ABG Oxyhemoglobin ABG Sodium ABG Potassium ABG Glucose Oxyhemoglobin Carboxyhemoglobin Sodium Potassium Chloride Carbon Dioxide BUN Creatinine Glucose POC Glucose 158 H Lactic Acid Calcium Phosphorus Magnesium AST ALT Troponin T C-Reactive Protein 7.80 H Total Protein Albumin Arterial Blood Glucose Arterial Blood Ionized Calcium Urine WBC (Auto) Urine Creatinine 67.4 H 08/26/20 08/27/20 08/27/20 22:01 04:10 05:12 WBC RBC Hgb Hct MCH MCHC RDW Lymph % (Auto) Lymph # (Auto) Seg Neutrophils % Seg Neuts % (Manual) Lymphocytes % (Manual) Seg Neutrophils # Seg Neutrophils # Man Lymphocytes # (Manual) D-Dimer ABG pH 7.454 H POC ABG pO2 74.9 L ABG pO2 ABG HCO3 ABG Hemoglobin 7.9 L ABG Oxyhemoglobin ABG Sodium ABG Potassium ABG Glucose 117 H Oxyhemoglobin Carboxyhemoglobin Sodium Potassium Chloride Carbon Dioxide BUN Creatinine Glucose POC Glucose 122 H 117 H Lactic Acid Calcium Phosphorus Magnesium AST ALT Troponin T C-Reactive Protein Total Protein Albumin Arterial Blood Glucose 117 H Arterial Blood Ionized Calcium 4.4 L Urine WBC (Auto) Urine Creatinine 08/27/20 08/27/20 08/27/20 07:24 07:24 11:08 WBC 12.7 H RBC 2.92 L Hgb 8.1 L Hct 24.4 L MCH MCHC RDW 15.4 H Lymph % (Auto) 5.9 L Lymph # (Auto) 0.8 L Seg Neutrophils % 86.9 H Seg Neuts % (Manual) Lymphocytes % (Manual) Seg Neutrophils # 11.0 H Seg Neutrophils # Man Lymphocytes # (Manual) D-Dimer ABG pH POC ABG pO2 ABG pO2 ABG HCO3 ABG Hemoglobin ABG Oxyhemoglobin ABG Sodium ABG Potassium ABG Glucose Oxyhemoglobin Carboxyhemoglobin Sodium Potassium Chloride Carbon Dioxide BUN 60 H Creatinine 3.6 H Glucose 135 H POC Glucose 139 H Lactic Acid Calcium Phosphorus Magnesium AST ALT Troponin T C-Reactive Protein Total Protein 5.3 L Albumin 2.6 L Arterial Blood Glucose Arterial Blood Ionized Calcium Urine WBC (Auto) Urine Creatinine 08/27/20 08/27/20 08/27/20 11:19 17:31 23:25 WBC RBC Hgb Hct MCH MCHC RDW Lymph % (Auto) Lymph # (Auto) Seg Neutrophils % Seg Neuts % (Manual) Lymphocytes % (Manual) Seg Neutrophils # Seg Neutrophils # Man Lymphocytes # (Manual) D-Dimer ABG pH POC ABG pO2 ABG pO2 ABG HCO3 ABG Hemoglobin ABG Oxyhemoglobin ABG Sodium ABG Potassium ABG Glucose Oxyhemoglobin Carboxyhemoglobin Sodium Potassium Chloride Carbon Dioxide BUN Creatinine Glucose POC Glucose 143 H 140 H 123 H Lactic Acid Calcium Phosphorus Magnesium AST ALT Troponin T C-Reactive Protein Total Protein Albumin Arterial Blood Glucose Arterial Blood Ionized Calcium Urine WBC (Auto) Urine Creatinine 08/28/20 08/28/20 08/28/20 03:50 04:19 04:19 WBC RBC 2.80 L Hgb 7.8 L Hct 23.6 L MCH MCHC RDW 15.8 H Lymph % (Auto) Lymph # (Auto) Seg Neutrophils % Seg Neuts % (Manual) Lymphocytes % (Manual) Seg Neutrophils # Seg Neutrophils # Man Lymphocytes # (Manual) D-Dimer ABG pH 7.329 L POC ABG pO2 ABG pO2 76.7 L ABG HCO3 27.0 H ABG Hemoglobin 7.5 L ABG Oxyhemoglobin ABG Sodium ABG Potassium ABG Glucose Oxyhemoglobin 93.6 L Carboxyhemoglobin Sodium 135 L Potassium Chloride Carbon Dioxide BUN 64 H Creatinine 3.8 H Glucose 143 H POC Glucose Lactic Acid Calcium 8.0 L Phosphorus Magnesium AST ALT Troponin T C-Reactive Protein Total Protein 4.8 L Albumin 2.4 L Arterial Blood Glucose Arterial Blood Ionized Calcium Urine WBC (Auto) Urine Creatinine 08/28/20 08/28/20 08/28/20 05:35 11:22 17:18 WBC RBC Hgb Hct MCH MCHC RDW Lymph % (Auto) Lymph # (Auto) Seg Neutrophils % Seg Neuts % (Manual) Lymphocytes % (Manual) Seg Neutrophils # Seg Neutrophils # Man Lymphocytes # (Manual) D-Dimer ABG pH POC ABG pO2 ABG pO2 ABG HCO3 ABG Hemoglobin ABG Oxyhemoglobin ABG Sodium ABG Potassium ABG Glucose Oxyhemoglobin Carboxyhemoglobin Sodium Potassium Chloride Carbon Dioxide BUN Creatinine Glucose POC Glucose 147 H 182 H 216 H Lactic Acid Calcium Phosphorus Magnesium AST ALT Troponin T C-Reactive Protein Total Protein Albumin Arterial Blood Glucose Arterial Blood Ionized Calcium Urine WBC (Auto) Urine Creatinine 08/28/20 08/28/20 08/29/20 21:04 23:20 04:32 WBC RBC Hgb Hct MCH MCHC RDW Lymph % (Auto) Lymph # (Auto) Seg Neutrophils % Seg Neuts % (Manual) Lymphocytes % (Manual) Seg Neutrophils # Seg Neutrophils # Man Lymphocytes # (Manual) D-Dimer ABG pH POC ABG pO2 ABG pO2 ABG HCO3 ABG Hemoglobin ABG Oxyhemoglobin ABG Sodium ABG Potassium ABG Glucose Oxyhemoglobin Carboxyhemoglobin Sodium 135 L Potassium Chloride 96.0 L Carbon Dioxide BUN 67 H Creatinine 3.8 H Glucose 200 H POC Glucose 204 H 242 H Lactic Acid Calcium 8.2 L Phosphorus Magnesium AST ALT Troponin T C-Reactive Protein Total Protein Albumin Arterial Blood Glucose Arterial Blood Ionized Calcium Urine WBC (Auto) Urine Creatinine 08/29/20 08/29/20 08/29/20 04:32 04:50 04:59 WBC RBC 3.25 L Hgb 9.0 L Hct 27.0 L MCH MCHC RDW 16.1 H Lymph % (Auto) Lymph # (Auto) Seg Neutrophils % Seg Neuts % (Manual) Lymphocytes % (Manual) Seg Neutrophils # Seg Neutrophils # Man Lymphocytes # (Manual) D-Dimer ABG pH POC ABG pO2 ABG pO2 ABG HCO3 ABG Hemoglobin 8.8 L ABG Oxyhemoglobin ABG Sodium ABG Potassium ABG Glucose Oxyhemoglobin Carboxyhemoglobin Sodium Potassium Chloride Carbon Dioxide BUN Creatinine Glucose POC Glucose 201 H Lactic Acid Calcium Phosphorus Magnesium AST ALT Troponin T C-Reactive Protein Total Protein Albumin Arterial Blood Glucose Arterial Blood Ionized Calcium Urine WBC (Auto) Urine Creatinine 08/29/20 08/29/20 08/29/20 11:10 11:28 17:50 WBC RBC Hgb Hct MCH MCHC RDW Lymph % (Auto) Lymph # (Auto) Seg Neutrophils % Seg Neuts % (Manual) Lymphocytes % (Manual) Seg Neutrophils # Seg Neutrophils # Man Lymphocytes # (Manual) D-Dimer ABG pH POC ABG pO2 ABG pO2 78.7 L ABG HCO3 26.6 H ABG Hemoglobin 9.8 L ABG Oxyhemoglobin ABG Sodium ABG Potassium ABG Glucose Oxyhemoglobin 94.3 L Carboxyhemoglobin Sodium Potassium Chloride Carbon Dioxide BUN Creatinine Glucose POC Glucose 219 H 203 H Lactic Acid Calcium Phosphorus Magnesium AST ALT Troponin T C-Reactive Protein Total Protein Albumin Arterial Blood Glucose Arterial Blood Ionized Calcium Urine WBC (Auto) Urine Creatinine 08/29/20 08/29/20 08/30/20 21:31 23:28 04:14 WBC RBC Hgb Hct MCH MCHC RDW Lymph % (Auto) Lymph # (Auto) Seg Neutrophils % Seg Neuts % (Manual) Lymphocytes % (Manual) Seg Neutrophils # Seg Neutrophils # Man Lymphocytes # (Manual) D-Dimer ABG pH POC ABG pO2 ABG pO2 ABG HCO3 ABG Hemoglobin ABG Oxyhemoglobin ABG Sodium ABG Potassium ABG Glucose Oxyhemoglobin Carboxyhemoglobin Sodium 132 L Potassium Chloride 94.8 L Carbon Dioxide BUN 68 H Creatinine 3.7 H Glucose 214 H POC Glucose 204 H 215 H Lactic Acid Calcium Phosphorus Magnesium AST ALT Troponin T C-Reactive Protein Total Protein Albumin Arterial Blood Glucose Arterial Blood Ionized Calcium Urine WBC (Auto) Urine Creatinine 08/30/20 08/30/20 08/30/20 05:10 11:33 17:32 WBC RBC Hgb Hct MCH MCHC RDW Lymph % (Auto) Lymph # (Auto) Seg Neutrophils % Seg Neuts % (Manual) Lymphocytes % (Manual) Seg Neutrophils # Seg Neutrophils # Man Lymphocytes # (Manual) D-Dimer ABG pH POC ABG pO2 ABG pO2 ABG HCO3 ABG Hemoglobin ABG Oxyhemoglobin ABG Sodium ABG Potassium ABG Glucose Oxyhemoglobin Carboxyhemoglobin Sodium Potassium Chloride Carbon Dioxide BUN Creatinine Glucose POC Glucose 210 H 194 H 202 H Lactic Acid Calcium Phosphorus Magnesium AST ALT Troponin T C-Reactive Protein Total Protein Albumin Arterial Blood Glucose Arterial Blood Ionized Calcium Urine WBC (Auto) Urine Creatinine 08/30/20 08/30/20 08/30/20 21:39 23:21 Unknown WBC RBC Hgb Hct MCH MCHC RDW Lymph % (Auto) Lymph # (Auto) Seg Neutrophils % Seg Neuts % (Manual) Lymphocytes % (Manual) Seg Neutrophils # Seg Neutrophils # Man Lymphocytes # (Manual) D-Dimer ABG pH POC ABG pO2 ABG pO2 99.0 H ABG HCO3 ABG Hemoglobin 9.8 L ABG Oxyhemoglobin ABG Sodium ABG Potassium ABG Glucose Oxyhemoglobin Carboxyhemoglobin Sodium Potassium Chloride Carbon Dioxide BUN Creatinine Glucose POC Glucose 199 H 209 H Lactic Acid Calcium Phosphorus Magnesium AST ALT Troponin T C-Reactive Protein Total Protein Albumin Arterial Blood Glucose Arterial Blood Ionized Calcium Urine WBC (Auto) Urine Creatinine 08/31/20 08/31/20 08/31/20 04:10 05:19 10:57 WBC RBC Hgb Hct MCH MCHC RDW Lymph % (Auto) Lymph # (Auto) Seg Neutrophils % Seg Neuts % (Manual) Lymphocytes % (Manual) Seg Neutrophils # Seg Neutrophils # Man Lymphocytes # (Manual) D-Dimer ABG pH 7.451 H POC ABG pO2 ABG pO2 99.6 H ABG HCO3 ABG Hemoglobin 8.4 L ABG Oxyhemoglobin ABG Sodium ABG Potassium ABG Glucose Oxyhemoglobin Carboxyhemoglobin Sodium 133 L Potassium Chloride 96.4 L Carbon Dioxide BUN 74 H Creatinine 3.8 H Glucose 201 H POC Glucose 182 H Lactic Acid Calcium 7.6 L Phosphorus Magnesium AST ALT Troponin T C-Reactive Protein Total Protein Albumin Arterial Blood Glucose Arterial Blood Ionized Calcium Urine WBC (Auto) Urine Creatinine 08/31/20 08/31/20 08/31/20 10:57 12:32 17:15 WBC 11.4 H RBC 3.24 L Hgb 8.5 L Hct 26.6 L MCH 26 L MCHC RDW 15.6 H Lymph % (Auto) Lymph # (Auto) Seg Neutrophils % Seg Neuts % (Manual) Lymphocytes % (Manual) Seg Neutrophils # Seg Neutrophils # Man Lymphocytes # (Manual) D-Dimer ABG pH POC ABG pO2 ABG pO2 ABG HCO3 ABG Hemoglobin ABG Oxyhemoglobin ABG Sodium ABG Potassium ABG Glucose Oxyhemoglobin Carboxyhemoglobin Sodium Potassium Chloride Carbon Dioxide BUN Creatinine Glucose POC Glucose 217 H 203 H Lactic Acid Calcium Phosphorus Magnesium AST ALT Troponin T C-Reactive Protein Total Protein Albumin Arterial Blood Glucose Arterial Blood Ionized Calcium Urine WBC (Auto) Urine Creatinine 09/01/20 09/01/20 09/01/20 00:06 05:05 09:41 WBC RBC Hgb Hct MCH MCHC RDW Lymph % (Auto) Lymph # (Auto) Seg Neutrophils % Seg Neuts % (Manual) Lymphocytes % (Manual) Seg Neutrophils # Seg Neutrophils # Man Lymphocytes # (Manual) D-Dimer ABG pH POC ABG pO2 ABG pO2 ABG HCO3 ABG Hemoglobin ABG Oxyhemoglobin ABG Sodium ABG Potassium ABG Glucose Oxyhemoglobin Carboxyhemoglobin Sodium 134 L Potassium Chloride 95.2 L Carbon Dioxide BUN 81 H Creatinine 3.7 H Glucose 201 H POC Glucose 223 H 225 H Lactic Acid Calcium Phosphorus 4.60 H Magnesium 2.40 H AST ALT Troponin T C-Reactive Protein Total Protein Albumin Arterial Blood Glucose Arterial Blood Ionized Calcium Urine WBC (Auto) Urine Creatinine 09/01/20 09/01/20 09/01/20 09:41 12:51 13:08 WBC 11.5 H RBC 3.58 L Hgb 9.2 L Hct 29.7 L MCH 26 L MCHC RDW 16.0 H Lymph % (Auto) Lymph # (Auto) Seg Neutrophils % Seg Neuts % (Manual) Lymphocytes % (Manual) Seg Neutrophils # Seg Neutrophils # Man Lymphocytes # (Manual) D-Dimer ABG pH 7.462 H POC ABG pO2 ABG pO2 ABG HCO3 ABG Hemoglobin 9.5 L ABG Oxyhemoglobin ABG Sodium 130.4 L ABG Potassium ABG Glucose 208 H Oxyhemoglobin Carboxyhemoglobin 0.4 L Sodium Potassium Chloride Carbon Dioxide BUN Creatinine Glucose POC Glucose 182 H Lactic Acid Calcium Phosphorus Magnesium AST ALT Troponin T C-Reactive Protein Total Protein Albumin Arterial Blood Glucose 208 H Arterial Blood Ionized Calcium 4.5 L Urine WBC (Auto) Urine Creatinine 09/01/20 09/01/20 09/02/20 18:34 23:14 05:22 WBC RBC Hgb Hct MCH MCHC RDW Lymph % (Auto) Lymph # (Auto) Seg Neutrophils % Seg Neuts % (Manual) Lymphocytes % (Manual) Seg Neutrophils # Seg Neutrophils # Man Lymphocytes # (Manual) D-Dimer ABG pH POC ABG pO2 ABG pO2 ABG HCO3 ABG Hemoglobin ABG Oxyhemoglobin ABG Sodium ABG Potassium ABG Glucose Oxyhemoglobin Carboxyhemoglobin Sodium Potassium Chloride Carbon Dioxide BUN Creatinine Glucose POC Glucose 183 H 181 H 178 H Lactic Acid Calcium Phosphorus Magnesium AST ALT Troponin T C-Reactive Protein Total Protein Albumin Arterial Blood Glucose Arterial Blood Ionized Calcium Urine WBC (Auto) Urine Creatinine 09/02/20 09/02/20 09/02/20 07:35 11:16 17:39 WBC RBC Hgb Hct MCH MCHC RDW Lymph % (Auto) Lymph # (Auto) Seg Neutrophils % Seg Neuts % (Manual) Lymphocytes % (Manual) Seg Neutrophils # Seg Neutrophils # Man Lymphocytes # (Manual) D-Dimer ABG pH POC ABG pO2 ABG pO2 ABG HCO3 ABG Hemoglobin ABG Oxyhemoglobin ABG Sodium ABG Potassium ABG Glucose Oxyhemoglobin Carboxyhemoglobin Sodium 135 L Potassium Chloride 96.0 L Carbon Dioxide BUN 88 H Creatinine 3.7 H Glucose 187 H POC Glucose 228 H 165 H Lactic Acid Calcium Phosphorus Magnesium AST ALT Troponin T C-Reactive Protein Total Protein Albumin Arterial Blood Glucose Arterial Blood Ionized Calcium Urine WBC (Auto) Urine Creatinine 09/02/20 09/03/20 09/03/20 23:24 05:35 08:31 WBC 18.5 H RBC 2.80 L Hgb 7.8 L Hct 22.7 L D MCH MCHC 35 H RDW 15.3 H Lymph % (Auto) Lymph # (Auto) Seg Neutrophils % Seg Neuts % (Manual) Lymphocytes % (Manual) Seg Neutrophils # Seg Neutrophils # Man Lymphocytes # (Manual) D-Dimer ABG pH POC ABG pO2 ABG pO2 ABG HCO3 ABG Hemoglobin ABG Oxyhemoglobin ABG Sodium ABG Potassium ABG Glucose Oxyhemoglobin Carboxyhemoglobin Sodium Potassium Chloride Carbon Dioxide BUN Creatinine Glucose POC Glucose 167 H 180 H Lactic Acid Calcium Phosphorus Magnesium AST ALT Troponin T C-Reactive Protein Total Protein Albumin Arterial Blood Glucose Arterial Blood Ionized Calcium Urine WBC (Auto) Urine Creatinine 09/03/20 09/03/20 09/03/20 08:31 12:02 17:05 WBC RBC Hgb Hct MCH MCHC RDW Lymph % (Auto) Lymph # (Auto) Seg Neutrophils % Seg Neuts % (Manual) Lymphocytes % (Manual) Seg Neutrophils # Seg Neutrophils # Man Lymphocytes # (Manual) D-Dimer ABG pH POC ABG pO2 ABG pO2 ABG HCO3 ABG Hemoglobin ABG Oxyhemoglobin ABG Sodium ABG Potassium ABG Glucose Oxyhemoglobin Carboxyhemoglobin Sodium 134 L Potassium Chloride 96.6 L Carbon Dioxide BUN 96 H Creatinine 3.7 H Glucose 190 H POC Glucose 156 H 150 H Lactic Acid Calcium 8.1 L Phosphorus Magnesium AST ALT Troponin T C-Reactive Protein Total Protein Albumin Arterial Blood Glucose Arterial Blood Ionized Calcium Urine WBC (Auto) Urine Creatinine 09/03/20 09/04/20 09/04/20 23:31 05:23 09:49 WBC RBC Hgb Hct MCH MCHC RDW Lymph % (Auto) Lymph # (Auto) Seg Neutrophils % Seg Neuts % (Manual) Lymphocytes % (Manual) Seg Neutrophils # Seg Neutrophils # Man Lymphocytes # (Manual) D-Dimer ABG pH POC ABG pO2 ABG pO2 ABG HCO3 ABG Hemoglobin ABG Oxyhemoglobin ABG Sodium ABG Potassium ABG Glucose Oxyhemoglobin Carboxyhemoglobin Sodium Potassium Chloride 97.9 L Carbon Dioxide BUN 98 H Creatinine 4.0 H Glucose 171 H POC Glucose 143 H 165 H Lactic Acid Calcium Phosphorus Magnesium AST ALT Troponin T C-Reactive Protein Total Protein Albumin Arterial Blood Glucose Arterial Blood Ionized Calcium Urine WBC (Auto) Urine Creatinine 09/04/20 09/04/20 09/04/20 12:05 17:46 21:25 WBC RBC Hgb Hct MCH MCHC RDW Lymph % (Auto) Lymph # (Auto) Seg Neutrophils % Seg Neuts % (Manual) Lymphocytes % (Manual) Seg Neutrophils # Seg Neutrophils # Man Lymphocytes # (Manual) D-Dimer ABG pH POC ABG pO2 ABG pO2 ABG HCO3 ABG Hemoglobin ABG Oxyhemoglobin ABG Sodium ABG Potassium ABG Glucose Oxyhemoglobin Carboxyhemoglobin Sodium Potassium Chloride Carbon Dioxide BUN Creatinine Glucose POC Glucose 200 H 184 H 177 H Lactic Acid Calcium Phosphorus Magnesium AST ALT Troponin T C-Reactive Protein Total Protein Albumin Arterial Blood Glucose Arterial Blood Ionized Calcium Urine WBC (Auto) Urine Creatinine 09/05/20 09/05/20 09/05/20 00:06 04:34 08:40 WBC RBC Hgb Hct MCH MCHC RDW Lymph % (Auto) Lymph # (Auto) Seg Neutrophils % Seg Neuts % (Manual) Lymphocytes % (Manual) Seg Neutrophils # Seg Neutrophils # Man Lymphocytes # (Manual) D-Dimer ABG pH POC ABG pO2 ABG pO2 ABG HCO3 ABG Hemoglobin ABG Oxyhemoglobin ABG Sodium ABG Potassium ABG Glucose Oxyhemoglobin Carboxyhemoglobin Sodium 133 L Potassium Chloride 92.5 L Carbon Dioxide BUN 99 H Creatinine 3.6 H Glucose 167 H POC Glucose 198 H 189 H Lactic Acid Calcium Phosphorus Magnesium AST ALT Troponin T C-Reactive Protein Total Protein Albumin Arterial Blood Glucose Arterial Blood Ionized Calcium Urine WBC (Auto) Urine Creatinine 09/05/20 11:28 WBC RBC Hgb Hct MCH MCHC RDW Lymph % (Auto) Lymph # (Auto) Seg Neutrophils % Seg Neuts % (Manual) Lymphocytes % (Manual) Seg Neutrophils # Seg Neutrophils # Man Lymphocytes # (Manual) D-Dimer ABG pH POC ABG pO2 ABG pO2 ABG HCO3 ABG Hemoglobin ABG Oxyhemoglobin ABG Sodium ABG Potassium ABG Glucose Oxyhemoglobin Carboxyhemoglobin Sodium Potassium Chloride Carbon Dioxide BUN Creatinine Glucose POC Glucose 171 H Lactic Acid Calcium Phosphorus Magnesium AST ALT Troponin T C-Reactive Protein Total Protein Albumin Arterial Blood Glucose Arterial Blood Ionized Calcium Urine WBC (Auto) Urine Creatinine Chest x-ray: other (none today) Allied health notes reviewed: nursing
[2020-09-05] MEDS ORDERED: MIDAZOLAM 100 MG in SODIUM CHLORIDE 0.9% 80 ML IV SCH (14:00)
[2020-09-05] MEDS ORDERED: DOPamine/D5W 800 MG/250 ML 800 MG/250 ML BAG IV ONE (14:23)
[2020-09-05] MEDS: DOPamine/D5W 800 MG/250 ML 800 MG/250 ML BAG IV SCH (14:30)
--- NOTE | 2020-09-05 15:33 | Procedure Note ---
Date of procedure: 09/05/20 Pre-op diagnosis: Hypotension; AV block Post-op diagnosis: same Procedure: RIJ CVL Placement (Full dictation # [id number]) Please see dictated notes for full details
--- NOTE | 2020-09-05 16:02 | XRay Report ---
CHEST 1 VIEW 09/05/2020 3:39 PM INDICATION / CLINICAL INFORMATION: right IJ TLC placement.. COMPARISON: None available. FINDINGS: SUPPORT DEVICES: ET tube is satisfactory position. Right jugular line is satisfactory in position. NG tube extends into the stomach. HEART / MEDIASTINUM: No significant abnormality. LUNGS / PLEURA: Diffuse bilateral pulmonary opacities No pneumothorax. ADDITIONAL FINDINGS: No significant additional findings. IMPRESSION: 1. Diffuse bilateral pulmonary opacities and effusions. Signer Name: Maxwell Corrales MD Signed: 09/05/2020 3:58 PM Workstation Name: [id number]
[2020-09-05] MEDS: INSULIN GLARGINE 100 UNITS/ML SUB-Q SCH (21:46)
[2020-09-06] MEDS: INSULIN LISPRO 100 UNIT/ML SUB-Q SCH ×4 (00:15→18:13)
[2020-09-06] MEDS: VALPROATE SODIUM 750 MG in SODIUM CHLORIDE 0.9% 100 ML IV SCH ×3 (06:43→22:06)
[2020-09-06] MEDS: hydrALAZINE 25 MG TAB PO SCH ×3 (06:43→22:07)
[2020-09-06] MEDS: FUROSEMIDE 40 MG/4 ML INJ IV SCH (06:43)
[2020-09-06 06:52] LABS: Basophils % (Auto) 0.1 % (0.0-1.8); Eosinophils # (Auto) 0.3 K/mm3 (0.0-0.4); Eosinophils % (Auto) 1.9 % (0.0-4.3); Hematocrit 26.2 % (30.3-42.9); Hemoglobin 8.7 gm/dl (10.1-14.3); Lymphocytes # (Auto) 0.8 K/mm3 (1.2-5.4); Lymphocytes % (Auto) 4.4 % (13.4-35.0); Mean Corpuscular HGB Conc 33 % (30-34); Mean Corpuscular Volume 81 fl (79-97); Monocytes # (Auto) 0.7 K/mm3 (0.0-0.8); Monocytes % (Auto) 4.1 % (0.0-7.3); Platelet Count 388 K/mm3 (140-440); Red Blood Count 3.25 M/mm3 (3.65-5.03); Red Cell Distribution Width 15.6 % (13.2-15.2)
[2020-09-06 07:08] LABS: Calcium 8.8 mg/dL (8.4-10.2)
--- NOTE | 2020-09-06 08:10 | Progress Note ---
Assessment and Plan 1. Acute kidney injury: Vasomotor FLORIDALMA superimposed on CKD stage 4 in the setting Cardiac arrest. Low FeNa. CT abdomen negative for hydro. Monitor renal function. Creatinine level around 3.6. Remain non-oliguric. Renal prognosis is guarded. Avoid nephrotoxic agents. Meds dosage based on GFR. 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 2. FEN: Hyperkalemia, improved. Metabolic acidosis, improved. Monitor lytes. 3. Acute respiratory failure with hypoxia: 2/2 b/p pneumonia. Covid test negative. Intubated, on vent. Followed by Pulmonary. 4. S/p OOH Cardiac arrest: Prolonged downtime. Followed by Cards. 5. Bladder retention: Follow bladder scan. 6. Diabetes mellitus type 2: Follow blood glucose. 7. Hypertension: Monitor BP. 8. Anemia, POA: Monitor. 9. Anoxic encephalopathy: Seen by Neuro. Family is aware of slim prognosis. 10. Facial twitching: Vimpat. Subjective: Patient was seen and examined at the bedside. Examination: General appearance: well-developed, well-nourished, appears stated age, intubated, on vent, FiO2 30% HEENT: ATNC, pupils not reacting to light, facial twitching noted Neck: supple Respiratory: coarse breath sounds Cardiology: regular, S1S2, no murmur Gastrointestinal: soft, bowel sounds heard, not tender Integumentary: no rash, warm and dry Neurologic: not responding Ext: no edema Subjective Date of service: 09/06/20 Principal diagnosis: Ac. hypoxemic resp failure; Cardiac arrest; AMS; AE-CHF; Hyperkalemia; FLORIDALMA Objective - Vital Signs Vital signs: Vital Signs - 12hr 09/05/20 09/05/20 09/05/20 20:15 20:19 20:30 Temperature Pulse Rate 64 63 64 Pulse Rate [ From Monitor] Respiratory 15 18 Rate Blood Pressure 125/48 125/48 128/46 O2 Sat by Pulse 96 97 96 Oximetry 09/05/20 09/05/20 09/05/20 20:46 21:00 21:16 Temperature Pulse Rate 63 61 61 Pulse Rate [ 67 From Monitor] Respiratory 14 12 14 Rate Blood Pressure 134/49 127/44 121/43 O2 Sat by Pulse 96 99 97 Oximetry 09/05/20 09/05/20 09/05/20 21:30 21:46 22:00 Temperature Pulse Rate 62 63 61 Pulse Rate [ From Monitor] Respiratory 15 18 16 Rate Blood Pressure 125/44 131/47 112/44 O2 Sat by Pulse 96 97 96 Oximetry 09/05/20 09/05/20 09/05/20 22:16 22:30 22:46 Temperature Pulse Rate 61 61 61 Pulse Rate [ From Monitor] Respiratory 13 14 14 Rate Blood Pressure 113/40 125/45 126/42 O2 Sat by Pulse 97 96 97 Oximetry 09/05/20 09/05/20 09/05/20 23:00 23:16 23:18 Temperature Pulse Rate 60 61 61 Pulse Rate [ From Monitor] Respiratory 13 15 16 Rate Blood Pressure 121/41 118/43 118/43 O2 Sat by Pulse 98 96 98 Oximetry 09/05/20 09/05/20 09/05/20 23:30 23:44 23:45 Temperature 98.7 F Pulse Rate 61 61 Pulse Rate [ From Monitor] Respiratory 17 16 Rate Blood Pressure 112/47 122/44 O2 Sat by Pulse 96 97 Oximetry 09/06/20 09/06/20 09/06/20 00:00 00:16 00:20 Temperature Pulse Rate 61 61 61 Pulse Rate [ From Monitor] Respiratory 17 16 Rate Blood Pressure 127/44 114/43 127/44 O2 Sat by Pulse 95 97 98 Oximetry 09/06/20 09/06/20 09/06/20 00:30 00:46 01:00 Temperature Pulse Rate 61 61 63 Pulse Rate [ 61 From Monitor] Respiratory 15 16 16 Rate Blood Pressure 112/42 119/44 122/44 O2 Sat by Pulse 97 97 96 Oximetry 09/06/20 09/06/20 09/06/20 01:16 01:30 01:46 Temperature Pulse Rate 64 62 62 Pulse Rate [ From Monitor] Respiratory 17 18 15 Rate Blood Pressure 127/45 135/46 132/42 O2 Sat by Pulse 97 96 97 Oximetry 09/06/20 09/06/20 09/06/20 02:00 02:16 02:30 Temperature Pulse Rate 62 62 62 Pulse Rate [ From Monitor] Respiratory 15 16 15 Rate Blood Pressure 127/41 128/45 128/42 O2 Sat by Pulse 97 96 97 Oximetry 09/06/20 09/06/20 09/06/20 02:46 03:00 03:16 Temperature Pulse Rate 60 60 60 Pulse Rate [ From Monitor] Respiratory 13 13 19 Rate Blood Pressure 128/41 122/40 129/41 O2 Sat by Pulse 95 96 97 Oximetry 09/06/20 09/06/20 09/06/20 03:30 03:46 04:00 Temperature 99.0 F Pulse Rate 62 62 63 Pulse Rate [ From Monitor] Respiratory 17 17 16 Rate Blood Pressure 126/43 130/41 133/46 O2 Sat by Pulse 98 97 96 Oximetry 09/06/20 09/06/20 09/06/20 04:16 04:30 04:46 Temperature Pulse Rate 62 62 66 Pulse Rate [ From Monitor] Respiratory 14 17 18 Rate Blood Pressure 135/44 135/54 118/45 O2 Sat by Pulse 96 95 88 Oximetry 09/06/20 09/06/20 09/06/20 04:57 05:00 05:16 Temperature Pulse Rate 64 63 63 Pulse Rate [ 63 From Monitor] Respiratory 15 18 Rate Blood Pressure 131/41 131/41 135/42 O2 Sat by Pulse 99 95 97 Oximetry 09/06/20 09/06/20 09/06/20 05:30 05:46 06:00 Temperature Pulse Rate 64 62 62 Pulse Rate [ From Monitor] Respiratory 16 12 13 Rate Blood Pressure 139/43 135/42 133/42 O2 Sat by Pulse 96 97 97 Oximetry 09/06/20 09/06/20 09/06/20 06:15 06:43 07:55 Temperature Pulse Rate 76 86 86 Pulse Rate [ From Monitor] Respiratory 19 Rate Blood Pressure 155/54 152/57 152/57 O2 Sat by Pulse 96 96 Oximetry - Lab 09/06/20 Unknown 09/06/20 Unknown Most recent lab results ABG pH 7.462 (7.320-7.450) H 09/01/20 12:51 ABG pCO2 36.6 mm Hg 08/31/20 04:10 ABG pO2 99.6 mm Hg (80.0-90.0) H 08/31/20 04:10 ABG HCO3 24.9 mmol/L (20.0-26.0) 08/31/20 04:10 ABG O2 Saturation 98.0 (0-100) 09/01/20 12:51 Calcium 8.8 mg/dL (8.4-10.2) 09/06/20 Unknown Phosphorus 4.60 mg/dL (2.5-4.5) H 09/01/20 09:41 Magnesium 2.60 mg/dL (1.7-2.3) H 09/06/20 Unknown Urine Creatinine 67.4 mg/dL (0.1-20.0) H 08/26/20 17:00 Urine Sodium 12 mmol/L 08/26/20 17:00 Medications & Allergies - Medications Allergies/Adverse Reactions: Allergies No Known Allergies Allergy (Verified 07/31/18 07:06) Home Medications: Home Medications Medication Instructions Recorded Confirmed Last Taken Type Albuterol Mdi (or & Nicu Only) 2 puff IH QID PRN #1 inhalation 08/07/18 03/14/20 Unknown Rx [ProAir HFA Inhaler] Sucralfate [Carafate] 1 gm PO ACHS #30 tablet 08/07/18 03/14/20 03/13/20 Rx Insulin Regular, Human [HumuLIN R] 0 unit SQ AC #1 vial 08/11/18 03/14/20 Unknown Rx Labetalol HCl [Labetalol 300mg TAB] 300 mg PO BID #60 tablet 11/11/19 03/14/20 03/14/20 Rx Furosemide [Lasix TAB] 80 mg PO DAILY #14 tablet 03/27/20 Unknown Rx Insulin Glargine [Lantus VIAL] 15 units SUB-Q QAM #1 vial 03/27/20 Unknown Rx amLODIPine 10 mg PO QDAY #30 tablet 03/27/20 Unknown Rx Active Medications: Generic Name Dose Route Start Last Admin Trade Name Freq PRN Reason Stop Dose Admin Albuterol 2.5 mg 08/25/20 14:55 Albuterol 2.5 Mg/3 Ml Nebu IH Q3HRT PRN Shortness Of Breath Amlodipine Besylate 5 mg 08/28/20 10:00 09/05/20 09:54 Amlodipine 5 Mg Tab PO 5 mg QDAY TERA Administration Lipase/Protease/Amylase 1 each 08/26/20 12:15 Lipase 10,500/Protease 25,000/Amylase 43,750 (Units) Dr Gu FEEDTUBE PRN PRN For Clogged Feeding Tube Aspirin 81 mg 08/27/20 10:00 09/05/20 10:57 Aspirin 81 Mg Tab Chew PO 81 mg QDAY TERA Administration Atorvastatin Calcium 40 mg 08/26/20 22:00 09/05/20 21:46 Atorvastatin 40 Mg Tab PO 40 mg QHS TERA Administration Atropine Sulfate 0.5 mg 09/05/20 13:09 09/05/20 13:44 Atropine 0.1% (1 Mg/10 Ml) Cardiac Syringe IV 0.5 mg Q5MIN PRN Administration Bradycardia Dextrose 50 ml 08/26/20 19:18 Dextrose 50% In Water (25gm) 50 Ml Syringe IV Q30MIN PRN Hypoglycemia Protocol Famotidine 20 mg 08/28/20 10:00 09/05/20 09:54 Famotidine 20 Mg Tab PO 20 mg DAILY TERA Administration Furosemide 40 mg 09/03/20 11:00 09/06/20 06:43 Furosemide 40 Mg/4 Ml Inj IV 40 mg 0600,1800 TERA Administration Heparin Sodium (Porcine) 5,000 unit 08/26/20 22:00 09/05/20 21:46 Heparin 5,000 Unit/1 Ml Vial SUB-Q 5,000 unit Q12HR TERA Administration Hydralazine HCl 10 mg 08/26/20 01:20 09/04/20 11:06 Hydralazine 20 Mg/1 Ml Inj IV 10 mg Q4HR PRN Administration Blood Pressure Hydralazine HCl 50 mg 09/01/20 14:00 09/06/20 06:43 Hydralazine 25 Mg Tab PO 50 mg Q8HR TERA Administration Hydrophilic Ointment 1 applic 08/25/20 11:07 08/25/20 11:57 Lip Therapy Vaseline TP 1 applic Q2HR PRN Administration Dry Lips Lacosamide 200 mg/ Sodium 120 mls @ 100 mls/hr 09/04/20 11:00 09/05/20 22:00 Chloride IV 100 mls/hr Q12H TERA Administration Levetiracetam 500 mg/ Dextrose 105 mls @ 400 mls/hr 09/04/20 11:00 09/05/20 22:01 IV 400 mls/hr Q12HR TERA Administration Valproate Sodium 750 mg/ 107.5 mls @ 100 mls/hr 09/05/20 14:00 09/06/20 06:43 Sodium Chloride IV 100 mls/hr Q8HR TERA Administration Midazolam HCl 100 mg/ Sodium 100 mls @ 1 mls/hr 09/05/20 14:00 09/05/20 14:30 Chloride IV 3 mg/hr TITR TERA 3 mls/hr Titration Protocol 1 MG/HR Dopamine HCl/Dextrose 800 mg in 250 mls @ 3.563 mls/hr 09/05/20 15:00 09/20 05:35 Intropin Drip 800 Mg/D5w 250 Ml IV 8 mcg/kg/min TITR TERA 14.25 mls/hr Titration Protocol 2 MCG/KG/MIN Insulin Glargine 25 units 09/01/20 22:00 09/05/20 21:46 Insulin Glargine 100 Units/Ml SUB-Q Not Given QHS TERA Insulin Human Lispro 0 unit 08/27/20 12:00 09/06/20 06:39 Insulin Lispro 100 Unit/Ml SUB-Q Not Given Q6HR [facility] Protocol Lorazepam 2 mg 09/03/20 15:12 09/05/20 13:41 Lorazepam 2 Mg/Ml Vial IV 2 mg Q1H PRN Administration Seizures Multi-Ingred Cream/Lotion/Oil/Oint 1 applic 08/25/20 11:07 Mineral Oil/Petrolatum, White Ophth Oint 3.5 Gm OU Q4HR PRN Dry Eye(s) Senna/Docusate Sodium 1 tab 08/25/20 22:00 09/05/20 21:46 Sennosides/Docusate Sodium 8.6/50 Mg Tab FEEDTUBE 1 tab BID TERA Administration Simple Syrup 15 ml 08/26/20 12:15 Simple Syrup 15 Ml FEEDTUBE PRN PRN Hypoglycemia Simple Syrup 30 ml 08/26/20 12:15 Simple Syrup 15 Ml FEEDTUBE PRN PRN Hypoglycemia Sodium Bicarbonate 325 mg 08/26/20 12:15 Sodium Bicarbonate 325 Mg Tab FEEDTUBE PRN PRN For Clogged Feeding Tube Sodium Chloride 10 ml 08/25/20 22:00 09/05/20 21:47 Sodium Chloride 0.9% 10 Ml Flush Syringe IV 10 ml BID TERA Administration Sodium Chloride 10 ml 08/25/20 14:55 08/29/20 04:05 Sodium Chloride 0.9% 10 Ml Flush Syringe IV 10 ml PRN PRN Administration LINE FLUSH Tamsulosin HCl 0.8 mg 09/06/20 10:00 Tamsulosin 0.4 Mg Cap PO QDAY [facility]
[2020-09-06] MEDS: DOPamine/D5W 800 MG/250 ML 800 MG/250 ML BAG IV SCH (09:53)
[2020-09-06] MEDS: SENNOSIDES/DOCUSATE SODIUM 8.6/50 MG TAB FEEDTUBE SCH ×2 (09:54→22:06)
[2020-09-06] MEDS: TAMSULOSIN 0.4 MG CAP PO SCH (09:54)
[2020-09-06] MEDS: FAMOTIDINE 20 MG TAB PO SCH (09:54)
[2020-09-06] MEDS: ASPIRIN 81 MG TAB CHEW PO SCH (09:54)
[2020-09-06] MEDS: amLODIPine 5 MG TAB PO SCH (09:57)
[2020-09-06] MEDS: HEPARIN 5,000 UNIT/1 ML VIAL SUB-Q SCH ×2 (09:58→22:06)
--- NOTE | 2020-09-06 10:43 | Progress Note ---
Assessment and Plan - Patient Problems (1) Anoxic brain injury Current Visit: Yes Status: Acute Plan to address problem: 1) Will postpone trach and PEG until after pt is evaluated by cardiology. Subjective Date of service: 09/06/20 Patient Reports: Positive: no new complaints (Pt had significant bradycardia yesterday requiring atropine and a dopamine drip.) Objective Vital Signs - 12hr 09/05/20 09/05/20 09/05/20 22:46 23:00 23:16 Temperature Pulse Rate 61 60 61 Pulse Rate [ From Monitor] Respiratory 14 13 15 Rate Blood Pressure 126/42 121/41 118/43 O2 Sat by Pulse 97 98 96 Oximetry 09/05/20 09/05/20 09/05/20 23:18 23:30 23:44 Temperature 98.7 F Pulse Rate 61 61 Pulse Rate [ From Monitor] Respiratory 16 17 Rate Blood Pressure 118/43 112/47 O2 Sat by Pulse 98 96 Oximetry 09/05/20 09/06/20 09/06/20 23:45 00:00 00:16 Temperature Pulse Rate 61 61 61 Pulse Rate [ From Monitor] Respiratory 16 17 16 Rate Blood Pressure 122/44 127/44 114/43 O2 Sat by Pulse 97 95 97 Oximetry 09/06/20 09/06/20 09/06/20 00:20 00:30 00:46 Temperature Pulse Rate 61 61 61 Pulse Rate [ From Monitor] Respiratory 15 16 Rate Blood Pressure 127/44 112/42 119/44 O2 Sat by Pulse 98 97 97 Oximetry 09/06/20 09/06/20 09/06/20 01:00 01:16 01:30 Temperature Pulse Rate 63 64 62 Pulse Rate [ 61 From Monitor] Respiratory 16 17 18 Rate Blood Pressure 122/44 127/45 135/46 O2 Sat by Pulse 96 97 96 Oximetry 09/06/20 09/06/20 09/06/20 01:46 02:00 02:16 Temperature Pulse Rate 62 62 62 Pulse Rate [ From Monitor] Respiratory 15 15 16 Rate Blood Pressure 132/42 127/41 128/45 O2 Sat by Pulse 97 97 96 Oximetry 09/06/20 09/06/20 09/06/20 02:30 02:46 03:00 Temperature Pulse Rate 62 60 60 Pulse Rate [ From Monitor] Respiratory 15 13 13 Rate Blood Pressure 128/42 128/41 122/40 O2 Sat by Pulse 97 95 96 Oximetry 09/06/20 09/06/20 09/06/20 03:16 03:30 03:46 Temperature Pulse Rate 60 62 62 Pulse Rate [ From Monitor] Respiratory 19 17 17 Rate Blood Pressure 129/41 126/43 130/41 O2 Sat by Pulse 97 98 97 Oximetry 09/06/20 09/06/20 09/06/20 04:00 04:16 04:30 Temperature 99.0 F Pulse Rate 63 62 62 Pulse Rate [ From Monitor] Respiratory 16 14 17 Rate Blood Pressure 133/46 135/44 135/54 O2 Sat by Pulse 96 96 95 Oximetry 09/06/20 09/06/20 09/06/20 04:46 04:57 05:00 Temperature Pulse Rate 66 64 63 Pulse Rate [ 63 From Monitor] Respiratory 18 15 Rate Blood Pressure 118/45 131/41 131/41 O2 Sat by Pulse 88 99 95 Oximetry 09/06/20 09/06/20 09/06/20 05:16 05:30 05:46 Temperature Pulse Rate 63 64 62 Pulse Rate [ From Monitor] Respiratory 18 16 12 Rate Blood Pressure 135/42 139/43 135/42 O2 Sat by Pulse 97 96 97 Oximetry 09/06/20 09/06/20 09/06/20 06:00 06:15 06:30 Temperature Pulse Rate 62 76 85 Pulse Rate [ From Monitor] Respiratory 13 19 16 Rate Blood Pressure 133/42 155/54 152/57 O2 Sat by Pulse 97 96 96 Oximetry 09/06/20 09/06/20 09/06/20 06:43 06:46 07:00 Temperature Pulse Rate 86 86 86 Pulse Rate [ From Monitor] Respiratory 16 15 Rate Blood Pressure 152/57 153/56 155/56 O2 Sat by Pulse 96 Oximetry 09/06/20 09/06/20 09/06/20 07:16 07:30 07:46 Temperature Pulse Rate 84 83 83 Pulse Rate [ From Monitor] Respiratory 14 14 14 Rate Blood Pressure 154/55 147/55 148/58 O2 Sat by Pulse 96 96 96 Oximetry 09/06/20 09/06/20 09/06/20 07:55 08:00 08:16 Temperature 99.2 F Pulse Rate 86 82 80 Pulse Rate [ From Monitor] Respiratory 14 14 Rate Blood Pressure 152/57 149/51 150/53 O2 Sat by Pulse 96 96 96 Oximetry 07/09/2009/06/20 09/06/20 08:30 08:46 09:00 Temperature Pulse Rate 80 79 78 Pulse Rate [ From Monitor] Respiratory 15 13 14 Rate Blood Pressure 149/53 148/53 151/55 O2 Sat by Pulse 96 96 96 Oximetry 09/06/20 09/06/20 09/06/20 09:16 09:30 09:46 Temperature Pulse Rate 73 79 78 Pulse Rate [ From Monitor] Respiratory 20 16 14 Rate Blood Pressure 147/55 156/57 156/54 O2 Sat by Pulse 97 96 96 Oximetry 09/06/20 09/06/20 09:57 10:00 Temperature Pulse Rate 59 L 59 L Pulse Rate [ From Monitor] Respiratory 14 Rate Blood Pressure 156/54 129/41 O2 Sat by Pulse 96 Oximetry - Labs 09/06/20 Unknown 09/06/20 Unknown Diabetes panel 09/06/20 Range/Units Unknown Sodium 132 L (137-145) mmol/L Potassium 4.1 (3.6-5.0) mmol/L Chloride 91.9 L (98-107) mmol/L Carbon Dioxide 29 (22-30) mmol/L BUN 104 H (7-17) mg/dL Creatinine 3.8 H (0.6-1.2) mg/dL Glucose 177 H (65-100) mg/dL Calcium 8.8 (8.4-10.2) mg/dL Calcium panel 09/06/20 Range/Units Unknown Calcium 8.8 (8.4-10.2) mg/dL Pituitary panel 09/06/20 Range/Units Unknown Sodium 132 L (137-145) mmol/L Potassium 4.1 (3.6-5.0) mmol/L Chloride 91.9 L (98-107) mmol/L Carbon Dioxide 29 (22-30) mmol/L BUN 104 H (7-17) mg/dL Creatinine 3.8 H (0.6-1.2) mg/dL Glucose 177 H (65-100) mg/dL Calcium 8.8 (8.4-10.2) mg/dL Adrenal panel 09/06/20 Range/Units Unknown Sodium 132 L (137-145) mmol/L Potassium 4.1 (3.6-5.0) mmol/L Chloride 91.9 L (98-107) mmol/L Carbon Dioxide 29 (22-30) mmol/L BUN 104 H (7-17) mg/dL Creatinine 3.8 H (0.6-1.2) mg/dL Glucose 177 H (65-100) mg/dL Calcium 8.8 (8.4-10.2) mg/dL
[2020-09-06] MEDS: levETIRAcetam 500 MG in DEXTROSE 5% IN WATER 100 ML IV SCH ×2 (11:00→22:06)
--- NOTE | 2020-09-06 11:31 | Progress Note ---
Assessment and Plan Assessment and Plan Assessment and plan: This is a 75-year-old female with CHF, OHS DM, CKD, morbid obesity, GERD, hypertension, chronic respiratory failure admitted s/p cardiac arrest #NEURO -Anoxic encephalopathy -08/[address] head shows no CT evidence of acute abnormality -08/28 MRI brain without contrast shows abnormal diffusion and FLAIR signal abnormality which may suggest hypoxic/ischemic brain injury, -08/30 EEG- remarkable for diffuse slowing 3-4 Hz no clear epileptiform discharges is noted - Today she is with facial twitching left>Right face mainly Seizure can not be excluded --- Repeat EEG is remarkable for recurrent right frontal rubio and a run for over 200 sec. of generalized 3 hz rhythmic activity associated with the left facial twitching with focal seizure is most likley is present ... -Keppra decrease to 500 mg BID due to elevated creatinine ,give IV, vimpat is to increased to 200 mg IV bid will add valproic acid 750 mg IV tid and or in [place] tube , Ativan as needed for facial twitching -Seizure/aspiration precautions -Prognosis over all is poor -opens eyes spontaneously ; pupils reactive to light; neg threat; pos cough; withdrawal on right to deep pain rare; no response to deep pain on left -Pt has 8 living children- updated on plan of care Case Management following if decision is not made by family in 48 hours we will order trach/Peg Friday (09/04) #CV -NSR -S/p cardiac arrest with prolonged down time- -ddimer elevated on admit following cardiac arrest -Cardiology has seen and signed off- call if needed -08/25 echocardiogram shows LVEF 40 to 45%, LV normal size, LV systolic function mildly decreased, mild diastolic dysfunction, mildly dilated right ventricle, - pulmonary hypertension RVSP 45 mmHg -asa and statin -Hypertension -home norvasc , hydral added -Blood pressure monitoring per protocol -IV hydralazine as needed #RESP Acute hypoxic respiratory failure -Chronic respiratory insufficiency at home with 3 L oxygen via nasal cannula -remains intubated and ventilated on cpap this AM -Wean as tolerated; trend pulse ox -CCM following -VAP bundle -nebs as needed Multifocal pneumonia/ ? aspiration event -08/25 CXR shows worsening patchy bilateral pulmonary opacities -08/25 CTA chest shows no evidence of pulmonary embolism, bilateral pulmonary processes with large bilateral pleural effusions, pneumonia is a concern, p ulmonary edema could be a similar appearance versus pulmonary edema # FLORIDALMA on CKD secondary to patient under nephropathy -trend and replace electrolytes as needed -Trend Cr #Urinary retention -Foreman replaced 08/31 for urinary retention #HEME Anemia -Admit H/H 8.6/27.8 #VTE prophylaxis with SCD and SQH #ID -Pneumonia -covid neg on admit #ENDO Diabetes mellitus DVT/GI prophylaxis: SCDs to bilateral lower extremities heparin subcu, PPI Disposition: ICU, need to discuss with family plan of care Lines: PIV; foreman pt. is evaluated in ICU time spent evaluating chart and lab result as well as test and exam pt. is >40 minutes Subjective Date of service: 09/06/20 Principal diagnosis: Ac. hypoxemic resp failure; Cardiac arrest; AMS; AE-CHF; Hyperkalemia; FLORIDALMA Interval history: status is unchanged not following command on vent , vital stable on Dopamin off Bet skylar , on 2 mc versid, not responding to verbal or sternal rub. No more facial twitching is noted , family requested peg tube and trachestomy done EEG to repeat today valproic acid level Objective - Vital Sign Vital Signs - 12hr 09/05/20 09/05/20 09/05/20 23:30 23:44 23:45 Temperature 98.7 F Pulse Rate 61 61 Pulse Rate [ From Monitor] Respiratory 17 16 Rate Blood Pressure 112/47 122/44 O2 Sat by Pulse 96 97 Oximetry 09/06/20 09/06/20 09/06/20 00:00 00:16 00:20 Temperature Pulse Rate 61 61 61 Pulse Rate [ From Monitor] Respiratory 17 16 Rate Blood Pressure 127/44 114/43 127/44 O2 Sat by Pulse 95 97 98 Oximetry 09/06/20 09/06/20 09/06/20 00:30 00:46 01:00 Temperature Pulse Rate 61 61 63 Pulse Rate [ 61 From Monitor] Respiratory 15 16 16 Rate Blood Pressure 112/42 119/44 122/44 O2 Sat by Pulse 97 97 96 Oximetry 09/06/20 09/06/20 09/06/20 01:16 01:30 01:46 Temperature Pulse Rate 64 62 62 Pulse Rate [ From Monitor] Respiratory 17 18 15 Rate Blood Pressure 127/45 135/46 132/42 O2 Sat by Pulse 97 96 97 Oximetry 09/06/20 09/06/20 09/06/20 02:00 02:16 02:30 Temperature Pulse Rate 62 62 62 Pulse Rate [ From Monitor] Respiratory 15 16 15 Rate Blood Pressure 127/41 128/45 128/42 O2 Sat by Pulse 97 96 97 Oximetry 09/06/20 09/06/20 09/06/20 02:46 03:00 03:16 Temperature Pulse Rate 60 60 60 Pulse Rate [ From Monitor] Respiratory 13 13 19 Rate Blood Pressure 128/41 122/40 129/41 O2 Sat by Pulse 95 96 97 Oximetry 09/06/20 09/06/20 09/06/20 03:30 03:46 04:00 Temperature 99.0 F Pulse Rate 62 62 63 Pulse Rate [ From Monitor] Respiratory 17 17 16 Rate Blood Pressure 126/43 130/41 133/46 O2 Sat by Pulse 98 97 96 Oximetry 09/06/20 09/06/20 09/06/20 04:16 04:30 04:46 Temperature Pulse Rate 62 62 66 Pulse Rate [ From Monitor] Respiratory 14 17 18 Rate Blood Pressure 135/44 135/54 118/45 O2 Sat by Pulse 96 95 88 Oximetry 09/06/20 09/06/20 09/06/20 04:57 05:00 05:16 Temperature Pulse Rate 64 63 63 Pulse Rate [ 63 From Monitor] Respiratory 15 18 Rate Blood Pressure 131/41 131/41 135/42 O2 Sat by Pulse 99 95 97 Oximetry 09/06/20 09/06/20 09/06/20 05:30 05:46 06:00 Temperature Pulse Rate 64 62 62 Pulse Rate [ From Monitor] Respiratory 16 12 13 Rate Blood Pressure 139/43 135/42 133/42 O2 Sat by Pulse 96 97 97 Oximetry 09/06/20 09/06/20 09/06/20 06:15 06:30 06:43 Temperature Pulse Rate 76 85 86 Pulse Rate [ From Monitor] Respiratory 19 16 Rate Blood Pressure 155/54 152/57 152/57 O2 Sat by Pulse 96 96 Oximetry 09/06/20 09/06/20 09/06/20 06:46 07:00 07:16 Temperature Pulse Rate 86 86 84 Pulse Rate [ From Monitor] Respiratory 16 15 14 Rate Blood Pressure 153/56 155/56 154/55 O2 Sat by Pulse 96 96 Oximetry 09/06/20 09/06/20 09/06/20 07:30 07:46 07:55 Temperature Pulse Rate 83 83 86 Pulse Rate [ From Monitor] Respiratory 14 14 Rate Blood Pressure 147/55 148/58 152/57 O2 Sat by Pulse 96 96 96 Oximetry 09/06/20 09/06/20 09/06/20 08:00 08:16 08:30 Temperature 99.2 F Pulse Rate 82 80 80 Pulse Rate [ From Monitor] Respiratory 14 14 15 Rate Blood Pressure 149/51 150/53 149/53 O2 Sat by Pulse 96 96 96 Oximetry 09/06/20 09/06/20 09/06/20 08:46 09:00 09:16 Temperature Pulse Rate 79 78 73 Pulse Rate [ From Monitor] Respiratory 13 14 20 Rate Blood Pressure 148/53 151/55 147/55 O2 Sat by Pulse 96 96 97 Oximetry 09/06/20 09/06/20 09/06/20 09:30 09:46 09:57 Temperature Pulse Rate 79 78 59 L Pulse Rate [ From Monitor] Respiratory 16 14 Rate Blood Pressure 156/57 156/54 156/54 O2 Sat by Pulse 96 96 Oximetry 09/06/20 10:00 Temperature Pulse Rate 59 L Pulse Rate [ From Monitor] Respiratory 14 Rate Blood Pressure 129/41 O2 Sat by Pulse 96 Oximetry - General Apperance Constitutional: comfortable - EENT EENT: PERRL, mucous membranes moist - Respiratory Respiratory: chest non-tender, lungs clear, rhonchi - Cardiovascular Cardiovascular: regular rate, normal S1, normal S2 Extremities: no peripheral edema bilat, no clubbing, cyanosis - Gastrointestinal Gastrointestinal: normoactive bowel sounds - Integumentary Integumentary: normal - Neurologic Cranial nerve examination: other (no EOM , no corneal, pupils slightly reactive, no gag no sign of spontaneous breathing today ) - Laboratory Findings CBC and BMP: 09/06/20 Unknown 09/06/20 Unknown Abnormal Lab Findings: Abnormal Labs 08/25/20 08/25/20 08/25/20 11:14 11:17 11:23 WBC 11.5 H RBC 3.22 L Hgb 8.6 L Hct 27.6 L MCH 27 L MCHC RDW 15.6 H Lymph % (Auto) Lymph # (Auto) Seg Neutrophils % Seg Neuts % (Manual) 89.0 H Lymphocytes % (Manual) 5.0 L Seg Neutrophils # Seg Neutrophils # Man 10.2 H Lymphocytes # (Manual) 0.6 L D-Dimer ABG pH 7.290 L POC ABG pO2 161.1 H ABG pO2 ABG HCO3 ABG Hemoglobin 8.9 L ABG Oxyhemoglobin 98.6 H ABG Sodium 135.2 L ABG Potassium 5.9 H ABG Glucose 210 H Oxyhemoglobin Carboxyhemoglobin 0.4 L Sodium Potassium Chloride Carbon Dioxide BUN Creatinine Glucose POC Glucose Lactic Acid Calcium Phosphorus Magnesium AST ALT Troponin T C-Reactive Protein Total Protein Albumin Arterial Blood Glucose 210 H Arterial Blood Ionized Calcium 4.4 L Urine WBC (Auto) 31.0 H Urine Creatinine 08/25/20 08/25/20 08/25/20 11:23 11:23 11:23 WBC RBC Hgb Hct MCH MCHC RDW Lymph % (Auto) Lymph # (Auto) Seg Neutrophils % Seg Neuts % (Manual) Lymphocytes % (Manual) Seg Neutrophils # Seg Neutrophils # Man Lymphocytes # (Manual) D-Dimer > 69194 H ABG pH POC ABG pO2 ABG pO2 ABG HCO3 ABG Hemoglobin ABG Oxyhemoglobin ABG Sodium ABG Potassium ABG Glucose Oxyhemoglobin Carboxyhemoglobin Sodium Potassium 6.4 H* Chloride Carbon Dioxide 21 L BUN 52 H Creatinine 3.5 H Glucose 194 H POC Glucose Lactic Acid 3.30 H* Calcium 8.1 L Phosphorus Magnesium AST 103 H ALT 77 H Troponin T 0.057 H C-Reactive Protein Total Protein 5.8 L Albumin 3.4 L Arterial Blood Glucose Arterial Blood Ionized Calcium Urine WBC (Auto) Urine Creatinine 08/25/20 08/25/20 08/25/20 13:51 15:45 20:34 WBC RBC Hgb Hct MCH MCHC RDW Lymph % (Auto) Lymph # (Auto) Seg Neutrophils % Seg Neuts % (Manual) Lymphocytes % (Manual) Seg Neutrophils # Seg Neutrophils # Man Lymphocytes # (Manual) D-Dimer ABG pH POC ABG pO2 66.3 L ABG pO2 ABG HCO3 ABG Hemoglobin 9.1 L ABG Oxyhemoglobin 92.5 L ABG Sodium ABG Potassium ABG Glucose 225 H Oxyhemoglobin Carboxyhemoglobin Sodium Potassium Chloride Carbon Dioxide BUN Creatinine Glucose POC Glucose 188 H 233 H Lactic Acid Calcium Phosphorus Magnesium AST ALT Troponin T C-Reactive Protein Total Protein Albumin Arterial Blood Glucose 225 H Arterial Blood Ionized Calcium 4.4 L Urine WBC (Auto) Urine Creatinine 08/26/20 08/26/20 08/26/20 04:14 05:04 05:04 WBC 17.9 H RBC 3.05 L Hgb 8.3 L Hct 25.6 L MCH 27 L MCHC RDW 15.3 H Lymph % (Auto) Lymph # (Auto) Seg Neutrophils % Seg Neuts % (Manual) 96.0 H Lymphocytes % (Manual) 1.0 L Seg Neutrophils # Seg Neutrophils # Man 17.2 H Lymphocytes # (Manual) 0.2 L D-Dimer ABG pH POC ABG pO2 131.3 H ABG pO2 ABG HCO3 ABG Hemoglobin 8.6 L ABG Oxyhemoglobin 98.2 H ABG Sodium ABG Potassium ABG Glucose 182 H Oxyhemoglobin Carboxyhemoglobin 0.2 L Sodium Potassium Chloride Carbon Dioxide BUN 56 H Creatinine 3.4 H Glucose 187 H POC Glucose Lactic Acid Calcium 8.3 L Phosphorus Magnesium AST 54 H ALT 57 H Troponin T C-Reactive Protein Total Protein 5.4 L Albumin 2.9 L Arterial Blood Glucose 182 H Arterial Blood Ionized Calcium 4.3 L Urine WBC (Auto) Urine Creatinine 08/26/20 08/26/20 08/26/20 05:40 07:36 11:54 WBC RBC Hgb Hct MCH MCHC RDW Lymph % (Auto) Lymph # (Auto) Seg Neutrophils % Seg Neuts % (Manual) Lymphocytes % (Manual) Seg Neutrophils # Seg Neutrophils # Man Lymphocytes # (Manual) D-Dimer ABG pH POC ABG pO2 ABG pO2 ABG HCO3 ABG Hemoglobin ABG Oxyhemoglobin ABG Sodium ABG Potassium ABG Glucose Oxyhemoglobin Carboxyhemoglobin Sodium Potassium Chloride Carbon Dioxide BUN Creatinine Glucose POC Glucose 179 H 171 H 190 H Lactic Acid Calcium Phosphorus Magnesium AST ALT Troponin T C-Reactive Protein Total Protein Albumin Arterial Blood Glucose Arterial Blood Ionized Calcium Urine WBC (Auto) Urine Creatinine 08/26/20 08/26/20 08/26/20 15:14 17:00 18:50 WBC RBC Hgb Hct MCH MCHC RDW Lymph % (Auto) Lymph # (Auto) Seg Neutrophils % Seg Neuts % (Manual) Lymphocytes % (Manual) Seg Neutrophils # Seg Neutrophils # Man Lymphocytes # (Manual) D-Dimer ABG pH POC ABG pO2 ABG pO2 ABG HCO3 ABG Hemoglobin ABG Oxyhemoglobin ABG Sodium ABG Potassium ABG Glucose Oxyhemoglobin Carboxyhemoglobin Sodium Potassium Chloride Carbon Dioxide BUN Creatinine Glucose POC Glucose 158 H Lactic Acid Calcium Phosphorus Magnesium AST ALT Troponin T C-Reactive Protein 7.80 H Total Protein Albumin Arterial Blood Glucose Arterial Blood Ionized Calcium Urine WBC (Auto) Urine Creatinine 67.4 H 08/26/20 08/27/20 08/27/20 22:01 04:10 05:12 WBC RBC Hgb Hct MCH MCHC RDW Lymph % (Auto) Lymph # (Auto) Seg Neutrophils % Seg Neuts % (Manual) Lymphocytes % (Manual) Seg Neutrophils # Seg Neutrophils # Man Lymphocytes # (Manual) D-Dimer ABG pH 7.454 H POC ABG pO2 74.9 L ABG pO2 ABG HCO3 ABG Hemoglobin 7.9 L ABG Oxyhemoglobin ABG Sodium ABG Potassium ABG Glucose 117 H Oxyhemoglobin Carboxyhemoglobin Sodium Potassium Chloride Carbon Dioxide BUN Creatinine Glucose POC Glucose 122 H 117 H Lactic Acid Calcium Phosphorus Magnesium AST ALT Troponin T C-Reactive Protein Total Protein Albumin Arterial Blood Glucose 117 H Arterial Blood Ionized Calcium 4.4 L Urine WBC (Auto) Urine Creatinine 08/27/20 08/27/20 08/27/20 07:24 07:24 11:08 WBC 12.7 H RBC 2.92 L Hgb 8.1 L Hct 24.4 L MCH MCHC RDW 15.4 H Lymph % (Auto) 5.9 L Lymph # (Auto) 0.8 L Seg Neutrophils % 86.9 H Seg Neuts % (Manual) Lymphocytes % (Manual) Seg Neutrophils # 11.0 H Seg Neutrophils # Man Lymphocytes # (Manual) D-Dimer ABG pH POC ABG pO2 ABG pO2 ABG HCO3 ABG Hemoglobin ABG Oxyhemoglobin ABG Sodium ABG Potassium ABG Glucose Oxyhemoglobin Carboxyhemoglobin Sodium Potassium Chloride Carbon Dioxide BUN 60 H Creatinine 3.6 H Glucose 135 H POC Glucose 139 H Lactic Acid Calcium Phosphorus Magnesium AST ALT Troponin T C-Reactive Protein Total Protein 5.3 L Albumin 2.6 L Arterial Blood Glucose Arterial Blood Ionized Calcium Urine WBC (Auto) Urine Creatinine 08/27/20 08/27/20 08/27/20 11:19 17:31 23:25 WBC RBC Hgb Hct MCH MCHC RDW Lymph % (Auto) Lymph # (Auto) Seg Neutrophils % Seg Neuts % (Manual) Lymphocytes % (Manual) Seg Neutrophils # Seg Neutrophils # Man Lymphocytes # (Manual) D-Dimer ABG pH POC ABG pO2 ABG pO2 ABG HCO3 ABG Hemoglobin ABG Oxyhemoglobin ABG Sodium ABG Potassium ABG Glucose Oxyhemoglobin Carboxyhemoglobin Sodium Potassium Chloride Carbon Dioxide BUN Creatinine Glucose POC Glucose 143 H 140 H 123 H Lactic Acid Calcium Phosphorus Magnesium AST ALT Troponin T C-Reactive Protein Total Protein Albumin Arterial Blood Glucose Arterial Blood Ionized Calcium Urine WBC (Auto) Urine Creatinine 08/28/20 08/28/20 08/28/20 03:50 04:19 04:19 WBC RBC 2.80 L Hgb 7.8 L Hct 23.6 L MCH MCHC RDW 15.8 H Lymph % (Auto) Lymph # (Auto) Seg Neutrophils % Seg Neuts % (Manual) Lymphocytes % (Manual) Seg Neutrophils # Seg Neutrophils # Man Lymphocytes # (Manual) D-Dimer ABG pH 7.329 L POC ABG pO2 ABG pO2 76.7 L ABG HCO3 27.0 H ABG Hemoglobin 7.5 L ABG Oxyhemoglobin ABG Sodium ABG Potassium ABG Glucose Oxyhemoglobin 93.6 L Carboxyhemoglobin Sodium 135 L Potassium Chloride Carbon Dioxide BUN 64 H Creatinine 3.8 H Glucose 143 H POC Glucose Lactic Acid Calcium 8.0 L Phosphorus Magnesium AST ALT Troponin T C-Reactive Protein Total Protein 4.8 L Albumin 2.4 L Arterial Blood Glucose Arterial Blood Ionized Calcium Urine WBC (Auto) Urine Creatinine 08/28/20 08/28/20 08/28/20 05:35 11:22 17:18 WBC RBC Hgb Hct MCH MCHC RDW Lymph % (Auto) Lymph # (Auto) Seg Neutrophils % Seg Neuts % (Manual) Lymphocytes % (Manual) Seg Neutrophils # Seg Neutrophils # Man Lymphocytes # (Manual) D-Dimer ABG pH POC ABG pO2 ABG pO2 ABG HCO3 ABG Hemoglobin ABG Oxyhemoglobin ABG Sodium ABG Potassium ABG Glucose Oxyhemoglobin Carboxyhemoglobin Sodium Potassium Chloride Carbon Dioxide BUN Creatinine Glucose POC Glucose 147 H 182 H 216 H Lactic Acid Calcium Phosphorus Magnesium AST ALT Troponin T C-Reactive Protein Total Protein Albumin Arterial Blood Glucose Arterial Blood Ionized Calcium Urine WBC (Auto) Urine Creatinine 08/28/20 08/28/20 08/29/20 21:04 23:20 04:32 WBC RBC Hgb Hct MCH MCHC RDW Lymph % (Auto) Lymph # (Auto) Seg Neutrophils % Seg Neuts % (Manual) Lymphocytes % (Manual) Seg Neutrophils # Seg Neutrophils # Man Lymphocytes # (Manual) D-Dimer ABG pH POC ABG pO2 ABG pO2 ABG HCO3 ABG Hemoglobin ABG Oxyhemoglobin ABG Sodium ABG Potassium ABG Glucose Oxyhemoglobin Carboxyhemoglobin Sodium 135 L Potassium Chloride 96.0 L Carbon Dioxide BUN 67 H Creatinine 3.8 H Glucose 200 H POC Glucose 204 H 242 H Lactic Acid Calcium 8.2 L Phosphorus Magnesium AST ALT Troponin T C-Reactive Protein Total Protein Albumin Arterial Blood Glucose Arterial Blood Ionized Calcium Urine WBC (Auto) Urine Creatinine 08/29/20 08/29/20 08/29/20 04:32 04:50 04:59 WBC RBC 3.25 L Hgb 9.0 L Hct 27.0 L MCH MCHC RDW 16.1 H Lymph % (Auto) Lymph # (Auto) Seg Neutrophils % Seg Neuts % (Manual) Lymphocytes % (Manual) Seg Neutrophils # Seg Neutrophils # Man Lymphocytes # (Manual) D-Dimer ABG pH POC ABG pO2 ABG pO2 ABG HCO3 ABG Hemoglobin 8.8 L ABG Oxyhemoglobin ABG Sodium ABG Potassium ABG Glucose Oxyhemoglobin Carboxyhemoglobin Sodium Potassium Chloride Carbon Dioxide BUN Creatinine Glucose POC Glucose 201 H Lactic Acid Calcium Phosphorus Magnesium AST ALT Troponin T C-Reactive Protein Total Protein Albumin Arterial Blood Glucose Arterial Blood Ionized Calcium Urine WBC (Auto) Urine Creatinine 08/29/20 08/29/20 08/29/20 11:10 11:28 17:50 WBC RBC Hgb Hct MCH MCHC RDW Lymph % (Auto) Lymph # (Auto) Seg Neutrophils % Seg Neuts % (Manual) Lymphocytes % (Manual) Seg Neutrophils # Seg Neutrophils # Man Lymphocytes # (Manual) D-Dimer ABG pH POC ABG pO2 ABG pO2 78.7 L ABG HCO3 26.6 H ABG Hemoglobin 9.8 L ABG Oxyhemoglobin ABG Sodium ABG Potassium ABG Glucose Oxyhemoglobin 94.3 L Carboxyhemoglobin Sodium Potassium Chloride Carbon Dioxide BUN Creatinine Glucose POC Glucose 219 H 203 H Lactic Acid Calcium Phosphorus Magnesium AST ALT Troponin T C-Reactive Protein Total Protein Albumin Arterial Blood Glucose Arterial Blood Ionized Calcium Urine WBC (Auto) Urine Creatinine 08/29/20 08/29/20 08/30/20 21:31 23:28 04:14 WBC RBC Hgb Hct MCH MCHC RDW Lymph % (Auto) Lymph # (Auto) Seg Neutrophils % Seg Neuts % (Manual) Lymphocytes % (Manual) Seg Neutrophils # Seg Neutrophils # Man Lymphocytes # (Manual) D-Dimer ABG pH POC ABG pO2 ABG pO2 ABG HCO3 ABG Hemoglobin ABG Oxyhemoglobin ABG Sodium ABG Potassium ABG Glucose Oxyhemoglobin Carboxyhemoglobin Sodium 132 L Potassium Chloride 94.8 L Carbon Dioxide BUN 68 H Creatinine 3.7 H Glucose 214 H POC Glucose 204 H 215 H Lactic Acid Calcium Phosphorus Magnesium AST ALT Troponin T C-Reactive Protein Total Protein Albumin Arterial Blood Glucose Arterial Blood Ionized Calcium Urine WBC (Auto) Urine Creatinine 08/30/20 08/30/20 08/30/20 05:10 11:33 17:32 WBC RBC Hgb Hct MCH MCHC RDW Lymph % (Auto) Lymph # (Auto) Seg Neutrophils % Seg Neuts % (Manual) Lymphocytes % (Manual) Seg Neutrophils # Seg Neutrophils # Man Lymphocytes # (Manual) D-Dimer ABG pH POC ABG pO2 ABG pO2 ABG HCO3 ABG Hemoglobin ABG Oxyhemoglobin ABG Sodium ABG Potassium ABG Glucose Oxyhemoglobin Carboxyhemoglobin Sodium Potassium Chloride Carbon Dioxide BUN Creatinine Glucose POC Glucose 210 H 194 H 202 H Lactic Acid Calcium Phosphorus Magnesium AST ALT Troponin T C-Reactive Protein Total Protein Albumin Arterial Blood Glucose Arterial Blood Ionized Calcium Urine WBC (Auto) Urine Creatinine 08/30/20 08/30/20 08/30/20 21:39 23:21 Unknown WBC RBC Hgb Hct MCH MCHC RDW Lymph % (Auto) Lymph # (Auto) Seg Neutrophils % Seg Neuts % (Manual) Lymphocytes % (Manual) Seg Neutrophils # Seg Neutrophils # Man Lymphocytes # (Manual) D-Dimer ABG pH POC ABG pO2 ABG pO2 99.0 H ABG HCO3 ABG Hemoglobin 9.8 L ABG Oxyhemoglobin ABG Sodium ABG Potassium ABG Glucose Oxyhemoglobin Carboxyhemoglobin Sodium Potassium Chloride Carbon Dioxide BUN Creatinine Glucose POC Glucose 199 H 209 H Lactic Acid Calcium Phosphorus Magnesium AST ALT Troponin T C-Reactive Protein Total Protein Albumin Arterial Blood Glucose Arterial Blood Ionized Calcium Urine WBC (Auto) Urine Creatinine 08/31/20 08/31/20 08/31/20 04:10 05:19 10:57 WBC RBC Hgb Hct MCH MCHC RDW Lymph % (Auto) Lymph # (Auto) Seg Neutrophils % Seg Neuts % (Manual) Lymphocytes % (Manual) Seg Neutrophils # Seg Neutrophils # Man Lymphocytes # (Manual) D-Dimer ABG pH 7.451 H POC ABG pO2 ABG pO2 99.6 H ABG HCO3 ABG Hemoglobin 8.4 L ABG Oxyhemoglobin ABG Sodium ABG Potassium ABG Glucose Oxyhemoglobin Carboxyhemoglobin Sodium 133 L Potassium Chloride 96.4 L Carbon Dioxide BUN 74 H Creatinine 3.8 H Glucose 201 H POC Glucose 182 H Lactic Acid Calcium 7.6 L Phosphorus Magnesium AST ALT Troponin T C-Reactive Protein Total Protein Albumin Arterial Blood Glucose Arterial Blood Ionized Calcium Urine WBC (Auto) Urine Creatinine 08/31/20 08/31/20 08/31/20 10:57 12:32 17:15 WBC 11.4 H RBC 3.24 L Hgb 8.5 L Hct 26.6 L MCH 26 L MCHC RDW 15.6 H Lymph % (Auto) Lymph # (Auto) Seg Neutrophils % Seg Neuts % (Manual) Lymphocytes % (Manual) Seg Neutrophils # Seg Neutrophils # Man Lymphocytes # (Manual) D-Dimer ABG pH POC ABG pO2 ABG pO2 ABG HCO3 ABG Hemoglobin ABG Oxyhemoglobin ABG Sodium ABG Potassium ABG Glucose Oxyhemoglobin Carboxyhemoglobin Sodium Potassium Chloride Carbon Dioxide BUN Creatinine Glucose POC Glucose 217 H 203 H Lactic Acid Calcium Phosphorus Magnesium AST ALT Troponin T C-Reactive Protein Total Protein Albumin Arterial Blood Glucose Arterial Blood Ionized Calcium Urine WBC (Auto) Urine Creatinine 09/01/20 09/01/20 09/01/20 00:06 05:05 09:41 WBC RBC Hgb Hct MCH MCHC RDW Lymph % (Auto) Lymph # (Auto) Seg Neutrophils % Seg Neuts % (Manual) Lymphocytes % (Manual) Seg Neutrophils # Seg Neutrophils # Man Lymphocytes # (Manual) D-Dimer ABG pH POC ABG pO2 ABG pO2 ABG HCO3 ABG Hemoglobin ABG Oxyhemoglobin ABG Sodium ABG Potassium ABG Glucose Oxyhemoglobin Carboxyhemoglobin Sodium 134 L Potassium Chloride 95.2 L Carbon Dioxide BUN 81 H Creatinine 3.7 H Glucose 201 H POC Glucose 223 H 225 H Lactic Acid Calcium Phosphorus 4.60 H Magnesium 2.40 H AST ALT Troponin T C-Reactive Protein Total Protein Albumin Arterial Blood Glucose Arterial Blood Ionized Calcium Urine WBC (Auto) Urine Creatinine 09/01/20 09/01/20 09/01/20 09:41 12:51 13:08 WBC 11.5 H RBC 3.58 L Hgb 9.2 L Hct 29.7 L MCH 26 L MCHC RDW 16.0 H Lymph % (Auto) Lymph # (Auto) Seg Neutrophils % Seg Neuts % (Manual) Lymphocytes % (Manual) Seg Neutrophils # Seg Neutrophils # Man Lymphocytes # (Manual) D-Dimer ABG pH 7.462 H POC ABG pO2 ABG pO2 ABG HCO3 ABG Hemoglobin 9.5 L ABG Oxyhemoglobin ABG Sodium 130.4 L ABG Potassium ABG Glucose 208 H Oxyhemoglobin Carboxyhemoglobin 0.4 L Sodium Potassium Chloride Carbon Dioxide BUN Creatinine Glucose POC Glucose 182 H Lactic Acid Calcium Phosphorus Magnesium AST ALT Troponin T C-Reactive Protein Total Protein Albumin Arterial Blood Glucose 208 H Arterial Blood Ionized Calcium 4.5 L Urine WBC (Auto) Urine Creatinine 09/01/20 09/01/20 09/02/20 18:34 23:14 05:22 WBC RBC Hgb Hct MCH MCHC RDW Lymph % (Auto) Lymph # (Auto) Seg Neutrophils % Seg Neuts % (Manual) Lymphocytes % (Manual) Seg Neutrophils # Seg Neutrophils # Man Lymphocytes # (Manual) D-Dimer ABG pH POC ABG pO2 ABG pO2 ABG HCO3 ABG Hemoglobin ABG Oxyhemoglobin ABG Sodium ABG Potassium ABG Glucose Oxyhemoglobin Carboxyhemoglobin Sodium Potassium Chloride Carbon Dioxide BUN Creatinine Glucose POC Glucose 183 H 181 H 178 H Lactic Acid Calcium Phosphorus Magnesium AST ALT Troponin T C-Reactive Protein Total Protein Albumin Arterial Blood Glucose Arterial Blood Ionized Calcium Urine WBC (Auto) Urine Creatinine 09/02/20 09/02/20 09/02/20 07:35 11:16 17:39 WBC RBC Hgb Hct MCH MCHC RDW Lymph % (Auto) Lymph # (Auto) Seg Neutrophils % Seg Neuts % (Manual) Lymphocytes % (Manual) Seg Neutrophils # Seg Neutrophils # Man Lymphocytes # (Manual) D-Dimer ABG pH POC ABG pO2 ABG pO2 ABG HCO3 ABG Hemoglobin ABG Oxyhemoglobin ABG Sodium ABG Potassium ABG Glucose Oxyhemoglobin Carboxyhemoglobin Sodium 135 L Potassium Chloride 96.0 L Carbon Dioxide BUN 88 H Creatinine 3.7 H Glucose 187 H POC Glucose 228 H 165 H Lactic Acid Calcium Phosphorus Magnesium AST ALT Troponin T C-Reactive Protein Total Protein Albumin Arterial Blood Glucose Arterial Blood Ionized Calcium Urine WBC (Auto) Urine Creatinine 09/02/20 09/03/20 09/03/20 23:24 05:35 08:31 WBC 18.5 H RBC 2.80 L Hgb 7.8 L Hct 22.7 L D MCH MCHC 35 H RDW 15.3 H Lymph % (Auto) Lymph # (Auto) Seg Neutrophils % Seg Neuts % (Manual) Lymphocytes % (Manual) Seg Neutrophils # Seg Neutrophils # Man Lymphocytes # (Manual) D-Dimer ABG pH POC ABG pO2 ABG pO2 ABG HCO3 ABG Hemoglobin ABG Oxyhemoglobin ABG Sodium ABG Potassium ABG Glucose Oxyhemoglobin Carboxyhemoglobin Sodium Potassium Chloride Carbon Dioxide BUN Creatinine Glucose POC Glucose 167 H 180 H Lactic Acid Calcium Phosphorus Magnesium AST ALT Troponin T C-Reactive Protein Total Protein Albumin Arterial Blood Glucose Arterial Blood Ionized Calcium Urine WBC (Auto) Urine Creatinine 09/03/20 09/03/20 09/03/20 08:31 12:02 17:05 WBC RBC Hgb Hct MCH MCHC RDW Lymph % (Auto) Lymph # (Auto) Seg Neutrophils % Seg Neuts % (Manual) Lymphocytes % (Manual) Seg Neutrophils # Seg Neutrophils # Man Lymphocytes # (Manual) D-Dimer ABG pH POC ABG pO2 ABG pO2 ABG HCO3 ABG Hemoglobin ABG Oxyhemoglobin ABG Sodium ABG Potassium ABG Glucose Oxyhemoglobin Carboxyhemoglobin Sodium 134 L Potassium Chloride 96.6 L Carbon Dioxide BUN 96 H Creatinine 3.7 H Glucose 190 H POC Glucose 156 H 150 H Lactic Acid Calcium 8.1 L Phosphorus Magnesium AST ALT Troponin T C-Reactive Protein Total Protein Albumin Arterial Blood Glucose Arterial Blood Ionized Calcium Urine WBC (Auto) Urine Creatinine 09/03/20 09/04/20 09/04/20 23:31 05:23 09:49 WBC RBC Hgb Hct MCH MCHC RDW Lymph % (Auto) Lymph # (Auto) Seg Neutrophils % Seg Neuts % (Manual) Lymphocytes % (Manual) Seg Neutrophils # Seg Neutrophils # Man Lymphocytes # (Manual) D-Dimer ABG pH POC ABG pO2 ABG pO2 ABG HCO3 ABG Hemoglobin ABG Oxyhemoglobin ABG Sodium ABG Potassium ABG Glucose Oxyhemoglobin Carboxyhemoglobin Sodium Potassium Chloride 97.9 L Carbon Dioxide BUN 98 H Creatinine 4.0 H Glucose 171 H POC Glucose 143 H 165 H Lactic Acid Calcium Phosphorus Magnesium AST ALT Troponin T C-Reactive Protein Total Protein Albumin Arterial Blood Glucose Arterial Blood Ionized Calcium Urine WBC (Auto) Urine Creatinine 09/04/20 09/04/20 09/04/20 12:05 17:46 21:25 WBC RBC Hgb Hct MCH MCHC RDW Lymph % (Auto) Lymph # (Auto) Seg Neutrophils % Seg Neuts % (Manual) Lymphocytes % (Manual) Seg Neutrophils # Seg Neutrophils # Man Lymphocytes # (Manual) D-Dimer ABG pH POC ABG pO2 ABG pO2 ABG HCO3 ABG Hemoglobin ABG Oxyhemoglobin ABG Sodium ABG Potassium ABG Glucose Oxyhemoglobin Carboxyhemoglobin Sodium Potassium Chloride Carbon Dioxide BUN Creatinine Glucose POC Glucose 200 H 184 H 177 H Lactic Acid Calcium Phosphorus Magnesium AST ALT Troponin T C-Reactive Protein Total Protein Albumin Arterial Blood Glucose Arterial Blood Ionized Calcium Urine WBC (Auto) Urine Creatinine 09/05/20 09/05/20 09/05/20 00:06 04:34 08:40 WBC RBC Hgb Hct MCH MCHC RDW Lymph % (Auto) Lymph # (Auto) Seg Neutrophils % Seg Neuts % (Manual) Lymphocytes % (Manual) Seg Neutrophils # Seg Neutrophils # Man Lymphocytes # (Manual) D-Dimer ABG pH POC ABG pO2 ABG pO2 ABG HCO3 ABG Hemoglobin ABG Oxyhemoglobin ABG Sodium ABG Potassium ABG Glucose Oxyhemoglobin Carboxyhemoglobin Sodium 133 L Potassium Chloride 92.5 L Carbon Dioxide BUN 99 H Creatinine 3.6 H Glucose 167 H POC Glucose 198 H 189 H Lactic Acid Calcium Phosphorus Magnesium AST ALT Troponin T C-Reactive Protein Total Protein Albumin Arterial Blood Glucose Arterial Blood Ionized Calcium Urine WBC (Auto) Urine Creatinine 09/05/20 09/05/20 09/05/20 11:28 17:54 23:28 WBC RBC Hgb Hct MCH MCHC RDW Lymph % (Auto) Lymph # (Auto) Seg Neutrophils % Seg Neuts % (Manual) Lymphocytes % (Manual) Seg Neutrophils # Seg Neutrophils # Man Lymphocytes # (Manual) D-Dimer ABG pH POC ABG pO2 ABG pO2 ABG HCO3 ABG Hemoglobin ABG Oxyhemoglobin ABG Sodium ABG Potassium ABG Glucose Oxyhemoglobin Carboxyhemoglobin Sodium Potassium Chloride Carbon Dioxide BUN Creatinine Glucose POC Glucose 171 H 169 H 163 H Lactic Acid Calcium Phosphorus Magnesium AST ALT Troponin T C-Reactive Protein Total Protein Albumin Arterial Blood Glucose Arterial Blood Ionized Calcium Urine WBC (Auto) Urine Creatinine 09/06/20 09/06/20 09/06/20 05:17 Unknown Unknown WBC 17.3 H RBC 3.25 L Hgb 8.7 L Hct 26.2 L MCH 27 L MCHC RDW 15.6 H Lymph % (Auto) 4.4 L Lymph # (Auto) 0.8 L Seg Neutrophils % 89.5 H Seg Neuts % (Manual) Lymphocytes % (Manual) Seg Neutrophils # 15.5 H Seg Neutrophils # Man Lymphocytes # (Manual) D-Dimer ABG pH POC ABG pO2 ABG pO2 ABG HCO3 ABG Hemoglobin ABG Oxyhemoglobin ABG Sodium ABG Potassium ABG Glucose Oxyhemoglobin Carboxyhemoglobin Sodium 132 L Potassium Chloride 91.9 L Carbon Dioxide BUN 104 H Creatinine 3.8 H Glucose 177 H POC Glucose 151 H Lactic Acid Calcium Phosphorus Magnesium 2.60 H AST ALT Troponin T C-Reactive Protein Total Protein Albumin Arterial Blood Glucose Arterial Blood Ionized Calcium Urine WBC (Auto) Urine Creatinine
[2020-09-06] MEDS: LACOSAMIDE 200 MG in SODIUM CHLORIDE 0.9% 100 ML IV SCH ×2 (11:38→22:05)
--- NOTE | 2020-09-06 12:26 | Progress Note ---
Assessment and Plan Episodic bradycardia noted on telemetry * Due to episodic bradycardia hold all AV denia blocking agents, recommend avoid QT prolonging medications. Initiate atropine 0.5 mg as needed for profound bradycardia not to exceed 3 mg within 24 hours. * Currently on dopamine drip for hypotension. Standing orders for atropine 0.5 mg every 5 minutes PRN not to exceed 3 mg within 24 hours. * Continue to monitor on telemetry. If patient has repeat episodes of bradycardia. Will consider placement of temporary pacemaker if this is in line with family's wishes. S/p cardiac arrest with ROSC * Prevailing rhythm during arrest was asystole. Patient is currently off sedation and continues to be unresponsive. 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 Neurology is following. Chronic respiratory failure * Currently intubated with plans for trach and PEG placement on Friday. Mild cardiomyopathy * Echocardiogram reviewed: LVEF is 40 to 45%. LV is normal size. LV SF is mildly decreased. Mild diastolic dysfunction. Right ventricle is mildly dilated. Moderate pulmonary hypertension RVSP 45 mmHg. * Continue GDMT: Aspirin 81, atorvastatin 40, metoprolol 2.5 mg IV every 6, no NITIN/ARB in setting of FLORIDALMA. Acute kidney injury in setting of chronic renal disease * No NITIN/ARB in setting of FLORIDALMA. Avoid nephrotoxic agents. Nephrology is sandy diehl. Patient is scheduled for trach and PEG procedure on Friday General surgery is requesting cardiac risk assessment: Patient evaluated with revised cardiac risk index: Class IV risk. 15% 30-day risk of , ID or cardiac arrest. Will continue to monitor telemetry. We will follow. This patient was seen in conjunction with Dr. Gallagher who agrees with assessment and plan of care. - Patient Problems (1) Cardiac arrest Current Visit: Yes Status: Acute (2) Anoxic encephalopathy Current Visit: Yes Status: Acute (3) Multifocal pneumonia Current Visit: Yes Status: Acute (4) Acute renal failure superimposed on chronic kidney disease Current Visit: Yes Status: Acute (5) Cardiomyopathy Current Visit: Yes Status: Chronic (6) Diabetes Current Visit: Yes Status: Chronic (7) Hypertension Current Visit: Yes Status: Chronic (8) DVT prophylaxis Current Visit: Yes Status: Acute (9) Anemia Current Visit: Yes Status: Chronic Qualifiers: Anemia type: unspecified type Qualified Code(s): D64.9 - Anemia, unspecified Subjective Date of service: 09/06/20 Principal diagnosis: Ac. hypoxemic resp failure; Cardiac arrest; AMS; AE-CHF; Hyperkalemia; FLORIDALMA Interval history: Patient is currently intubated off sedation and unresponsive. Telemetry reviewed: Sinus rhythm 58 with episode of Sinus Bradycardia HR 34 Objective Last Vital Signs Temp 98.3 F 09/06/20 12:00 Pulse 57 L 09/06/20 12:01 Resp 12 09/06/20 12:01 BP 136/46 09/06/20 12:01 Pulse Ox 98 09/06/20 12:01 - Physical Examination General: Other (Intubated unresponsive) HEENT: Positive: Normocephaly, Mucus Membranes Moist Neck: Positive: neck supple, trachea midline Cardiac: Positive: Reg Rate and Rhythm, S1/S2 Lungs: Positive: Ventilated Respirations Neuro: Positive: Other (Intubated unresponsive. Profound anoxic injury confirmed by MRI) Abdomen: Positive: Unremarkable Skin: Negative: Rash Musculoskeletal: other (Intubated unresponsive) Extremities: Present: upper extr. pulses, lower extr. pulses. Absent: edema - Labs and Meds CBC 09/06/20 Range/Units Unknown WBC 17.3 H (4.5-11.0) K/mm3 RBC 3.25 L (3.65-5.03) M/mm3 Hgb 8.7 L (10.1-14.3) gm/dl Hct 26.2 L (30.3-42.9) % Plt Count 388 (140-440) K/mm3 Lymph # (Auto) 0.8 L (1.2-5.4) K/mm3 Elk # (Auto) 0.7 (0.0-0.8) K/mm3 Eos # (Auto) 0.3 (0.0-0.4) K/mm3 Baso # (Auto) 0.0 (0.0-0.1) K/mm3 Comprehensive Metabolic Panel 09/06/20 Range/Units Unknown Sodium 132 L (137-145) mmol/L Potassium 4.1 (3.6-5.0) mmol/L Chloride 91.9 L (98-107) mmol/L Carbon Dioxide 29 (22-30) mmol/L BUN 104 H (7-17) mg/dL Creatinine 3.8 H (0.6-1.2) mg/dL Glucose 177 H (65-100) mg/dL Calcium 8.8 (8.4-10.2) mg/dL - Imaging and Cardiology EKG: report reviewed, image reviewed Echo: report reviewed (Echocardiogram reviewed: LVEF is 40 to 45%. LV is normal size. LV SF is mildly decreased. Mild diastolic dysfunction. Right ventricle is mildly dilated. Moderate pulmonary hypertension RVSP 45 mmHg. ) - Telemetry EKG Rhythm: Sinus Rhythm - EKG Sinus rhythms and dysrhythmias: sinus bradycardia - Allied health notes Allied health notes reviewed: nursing
--- NOTE | 2020-09-06 13:46 | Operative Report ---
DATE OF SURGERY: 09/05/2020 PROCEDURE: Right internal jugular central venous line placement. INDICATIONS: Acute hypotension in a patient on mechanical ventilatory support, need for vasopressors. CONSENT: Informed and witnessed obtained from the patient's son in the room. COMPLICATIONS: No immediate procedural complications. DESCRIPTION OF PROCEDURE: After informed and witnessed consent as well as premedication, the patient being on a Versed drip at that time, the area of the right upper anterior triangle of the chest was sterilely prepped and draped. Full sterile technique was used throughout the procedure including sterile hat, mask, gown, gloves, and full barrier drape. A generous local anesthetic agent was used. Procedure was done under ultrasound guidance after infiltrating the entrance point for the right IJ placement with lidocaine. The right internal jugular was assessed on the first stick under ultrasound guidance with the provided central venous catheter needle. Good venous looking blood return was obtained. Wire was threaded through the needle. Catheter was advanced over the wire after dilatation. Again, good venous looking blood return was obtained. The patient was in Trendelenburg position throughout the whole procedure. The lumens were flushed and capped and CVL was sutured in place. A postprocedure chest x-ray has been done and shows no postprocedure pneumothorax. Bleeding was minimal. The patient tolerated the procedure well and line has been okayed for use. TID: [id number] RECEIPT: [id number] PAOLA/CARLA
--- NOTE | 2020-09-06 14:04 | Progress Note ---
Assessment and Plan Acute hypoxemic respiratory failure Cardiac arrest with ROSC Acute encephalopathy Multifocal pneumonia Possible bilateral pulmonary edema Congestive heart failure with an acute exacerbation Anemia Hyperkalemia Lactic acidosis Acute kidney injury Elevated serum transaminases Non-ST elevation MS Oropharyngeal dysphagia - Revised cardiac risk index is Class IV so Trach & PEG held till re-evaluated next week - discontinued Amlodipine also - stopped Versed drip and will watch for seizure activity - additional AED added by neurologist - s/p midline - hold SBT - resume Christina catheter as still with retention and Azotemia is worse - consider thoracentesis depending on clinical progress - continue other care as below otherwise - continue Flomax for retention - continue neurology evaluation - continue Daily SAT and SBT assessment as tolerated meantime - continue to wean supplemental oxygen for target O2 sat's > 92% acutely - VAP bundle addressed - continue lung protective strategies - continue bronchodilators with pulmonary hygiene per RT - wean per pulmonary driven protocols otherwise - continue accuchecks with glycemic control per SSI (While critically ill target blood glucose of 140-180 mg/dL; avoid hypoglycemia) - sedation prn for target RASS -1 to -2 - avoid nephrotoxins, renally dose all medications - continue to avoid benzodiazepine's, reduce the possibility of delirium - complete AB's per ID rec's - prn analgesia per CPOT score - Maintenance of sleep-wake cycle, avoid delirium - enteral nutritional support at goal rate as tolerated - G.I. & VTE prophylaxis - PT/OT/ROM exercises - continue mobility protocols for pressure ulcer prophylaxis - Monitor hemodynamics closely - continue other care per attending / other consultants - discharge planning ongoing concurrently COVID SPECIFIC INTERVENTIONS - COVID-19 PCR negative .... Re-evaluate in am & prn CONDITION: CRITICAL PROGNOSIS: GUARDED CODE STATUS: FULL CODE The high probability of a clinically significant, sudden or life-threatening deterioration of the [respiratory, cardiovascular & neurologic] system(s) requ ired my full and direct attention, intervention and personal management. The aggregate critical care time was [35] minutes without overlap. Time includes spent on; [x] Data Review and interpretation [x] Patient assessment and monitoring of vital signs [x] Documentation [x] Medication orders and management Subjective Date of service: 09/06/20 Principal diagnosis: Ac. hypoxemic resp failure; Cardiac arrest; AMS; AE-CHF; Hyperkalemia; FLORIDALMA Interval history: Patient is seen today for: Acute hypoxemic respiratory failure; Cardiac arrest with ROSC; Acute encephalopathy; Multifocal pneumonia; pulmonary edema; AE-CHF; Hyperkalemia; FLORIDALMA; NSTEMI Seen and examined at bedside; 24hour events reviewed; nursing and respiratory care staff consulted; no adverse overnight events reported to me; resting in bed; remains on MVS; no bradycardic episodes overnight but remains on Dopamine drip @ 8 ugille's/min; afebrile; AMS is persistent Objective Vital Signs - 12hr 09/06/20 09/06/20 09/06/20 01:46 02:00 02:16 Temperature Pulse Rate 62 62 62 Pulse Rate [ From Monitor] Respiratory 15 15 16 Rate Blood Pressure 132/42 127/41 128/45 O2 Sat by Pulse 97 97 96 Oximetry 09/06/20 09/06/20 09/06/20 02:30 02:46 03:00 Temperature Pulse Rate 62 60 60 Pulse Rate [ From Monitor] Respiratory 15 13 13 Rate Blood Pressure 128/42 128/41 122/40 O2 Sat by Pulse 97 95 96 Oximetry 09/06/20 09/06/20 09/06/20 03:16 03:30 03:46 Temperature Pulse Rate 60 62 62 Pulse Rate [ From Monitor] Respiratory 19 17 17 Rate Blood Pressure 129/41 126/43 130/41 O2 Sat by Pulse 97 98 97 Oximetry 09/06/20 09/06/20 09/06/20 04:00 04:16 04:30 Temperature 99.0 F Pulse Rate 63 62 62 Pulse Rate [ From Monitor] Respiratory 16 14 17 Rate Blood Pressure 133/46 135/44 135/54 O2 Sat by Pulse 96 96 95 Oximetry 09/06/20 09/06/20 09/06/20 04:46 04:57 05:00 Temperature Pulse Rate 66 64 63 Pulse Rate [ 63 From Monitor] Respiratory 18 15 Rate Blood Pressure 118/45 131/41 131/41 O2 Sat by Pulse 88 99 95 Oximetry 09/06/20 09/06/20 09/06/20 05:16 05:30 05:46 Temperature Pulse Rate 63 64 62 Pulse Rate [ From Monitor] Respiratory 18 16 12 Rate Blood Pressure 135/42 139/43 135/42 O2 Sat by Pulse 97 96 97 Oximetry 09/06/20 09/06/20 09/06/20 06:00 06:15 06:30 Temperature Pulse Rate 62 76 85 Pulse Rate [ From Monitor] Respiratory 13 19 16 Rate Blood Pressure 133/42 155/54 152/57 O2 Sat by Pulse 97 96 96 Oximetry 09/06/20 09/06/20 09/06/20 06:43 06:46 07:00 Temperature Pulse Rate 86 86 86 Pulse Rate [ From Monitor] Respiratory 16 15 Rate Blood Pressure 152/57 153/56 155/56 O2 Sat by Pulse 96 Oximetry 09/06/20 09/06/20 09/06/20 07:16 07:30 07:46 Temperature Pulse Rate 84 83 83 Pulse Rate [ From Monitor] Respiratory 14 14 14 Rate Blood Pressure 154/55 147/55 148/58 O2 Sat by Pulse 96 96 96 Oximetry 09/06/20 09/06/20 09/06/20 07:55 08:00 08:16 Temperature 99.2 F Pulse Rate 86 82 80 Pulse Rate [ From Monitor] Respiratory 14 14 Rate Blood Pressure 152/57 149/51 150/53 O2 Sat by Pulse 96 96 96 Oximetry 09/06/20 09/06/20 09/06/20 08:30 08:46 09:00 Temperature Pulse Rate 80 79 78 Pulse Rate [ From Monitor] Respiratory 15 13 14 Rate Blood Pressure 149/53 148/53 151/55 O2 Sat by Pulse 96 96 96 Oximetry 09/06/20 09/06/20 09/06/20 09:16 09:30 09:46 Temperature Pulse Rate 73 79 78 Pulse Rate [ From Monitor] Respiratory 20 16 14 Rate Blood Pressure 147/55 156/57 156/54 O2 Sat by Pulse 97 96 96 Oximetry 09/06/20 09/06/20 09/06/20 09:57 10:00 10:16 Temperature Pulse Rate 59 L 59 L 65 Pulse Rate [ From Monitor] Respiratory 14 17 Rate Blood Pressure 156/54 129/41 153/56 O2 Sat by Pulse 96 98 Oximetry 09/06/20 09/06/20 09/06/20 10:30 10:46 11:00 Temperature Pulse Rate 58 L 57 L 57 L Pulse Rate [ From Monitor] Respiratory 12 13 14 Rate Blood Pressure 153/56 122/43 120/43 O2 Sat by Pulse 96 97 98 Oximetry 09/06/20 09/06/20 09/06/20 11:16 11:30 11:46 Temperature Pulse Rate 57 L 57 L 57 L Pulse Rate [ From Monitor] Respiratory 13 13 21 Rate Blood Pressure 120/43 122/43 131/45 O2 Sat by Pulse 98 98 98 Oximetry 09/06/20 09/06/20 09/06/20 12:00 12:01 12:16 Temperature 98.3 F Pulse Rate 57 L 57 L 57 L Pulse Rate [ From Monitor] Respiratory 12 14 Rate Blood Pressure 136/46 136/46 140/47 O2 Sat by Pulse 98 98 98 Oximetry 09/06/20 09/06/20 09/06/20 12:30 12:46 13:00 Temperature Pulse Rate 49 L 62 81 Pulse Rate [ From Monitor] Respiratory 15 12 12 Rate Blood Pressure 140/47 115/52 115/52 O2 Sat by Pulse 96 97 Oximetry Constitutional: appears uncomfortable, other (elderly obese female with mild patient ventilator dyssynchrony) Eyes: non-icteric ENT: oropharynx moist, oropharyngeal exudate pre (clear, frothy), other (ETT 24 cm DIMAS) Neck: supple, no lymphadenopathy, no JVD Effort: mildly labored Ascultation: Bilateral: diminished breath sounds (bases), rhonchi (scant) Percussion: Bilateral: not dull Cardiovascular: regular rate and rhythm, other (S1,S2) Gastrointestinal: normoactive bowel sounds Integumentary: normal Extremities: no cyanosis, no edema, pulses normal, no ischemia or petechiae Neurologic: pupils equal and round, unable to assess, other (facial and whole body seizures + bitting tongue) Psychiatric: other (unable to assess re: AMS) CBC and BMP: 09/07/20 Unknown 09/07/20 04:00 ABG, PT/INR, D-dimer: ABG ABG pH 7.462 (7.320-7.450) H 09/01/20 12:51 POC ABG pCO2 39.5 mmHg (32.0-48.0) 09/01/20 12:51 ABG pCO2 36.6 mm Hg 08/31/20 04:10 POC ABG pO2 102.7 mmHg (83-108) 09/01/20 12:51 ABG pO2 99.6 mm Hg (80.0-90.0) H 08/31/20 04:10 POC ABG HCO3 27.6 09/01/20 12:51 ABG O2 Saturation 98.0 (0-100) 09/01/20 12:51 PT/INR, D-dimer D-Dimer > 94240 ng/mlDDU (0-234) H 08/25/20 11:23 Abnormal lab findings: Abnormal Labs 08/25/20 08/25/20 08/25/20 11:14 11:17 11:23 WBC 11.5 H RBC 3.22 L Hgb 8.6 L Hct 27.6 L MCH 27 L MCHC RDW 15.6 H Lymph % (Auto) Lymph # (Auto) Seg Neutrophils % Seg Neuts % (Manual) 89.0 H Lymphocytes % (Manual) 5.0 L Seg Neutrophils # Seg Neutrophils # Man 10.2 H Lymphocytes # (Manual) 0.6 L D-Dimer ABG pH 7.290 L POC ABG pO2 161.1 H ABG pO2 ABG HCO3 ABG Hemoglobin 8.9 L ABG Oxyhemoglobin 98.6 H ABG Sodium 135.2 L ABG Potassium 5.9 H ABG Glucose 210 H Oxyhemoglobin Carboxyhemoglobin 0.4 L Sodium Potassium Chloride Carbon Dioxide BUN Creatinine Glucose POC Glucose Lactic Acid Calcium Phosphorus Magnesium AST ALT Troponin T C-Reactive Protein Total Protein Albumin Arterial Blood Glucose 210 H Arterial Blood Ionized Calcium 4.4 L Urine WBC (Auto) 31.0 H Urine Creatinine 08/25/20 08/25/20 08/25/20 11:23 11:23 11:23 WBC RBC Hgb Hct MCH MCHC RDW Lymph % (Auto) Lymph # (Auto) Seg Neutrophils % Seg Neuts % (Manual) Lymphocytes % (Manual) Seg Neutrophils # Seg Neutrophils # Man Lymphocytes # (Manual) D-Dimer > 73217 H ABG pH POC ABG pO2 ABG pO2 ABG HCO3 ABG Hemoglobin ABG Oxyhemoglobin ABG Sodium ABG Potassium ABG Glucose Oxyhemoglobin Carboxyhemoglobin Sodium Potassium 6.4 H* Chloride Carbon Dioxide 21 L BUN 52 H Creatinine 3.5 H Glucose 194 H POC Glucose Lactic Acid 3.30 H* Calcium 8.1 L Phosphorus Magnesium AST 103 H ALT 77 H Troponin T 0.057 H C-Reactive Protein Total Protein 5.8 L Albumin 3.4 L Arterial Blood Glucose Arterial Blood Ionized Calcium Urine WBC (Auto) Urine Creatinine 08/25/20 08/25/20 08/25/20 13:51 15:45 20:34 WBC RBC Hgb Hct MCH MCHC RDW Lymph % (Auto) Lymph # (Auto) Seg Neutrophils % Seg Neuts % (Manual) Lymphocytes % (Manual) Seg Neutrophils # Seg Neutrophils # Man Lymphocytes # (Manual) D-Dimer ABG pH POC ABG pO2 66.3 L ABG pO2 ABG HCO3 ABG Hemoglobin 9.1 L ABG Oxyhemoglobin 92.5 L ABG Sodium ABG Potassium ABG Glucose 225 H Oxyhemoglobin Carboxyhemoglobin Sodium Potassium Chloride Carbon Dioxide BUN Creatinine Glucose POC Glucose 188 H 233 H Lactic Acid Calcium Phosphorus Magnesium AST ALT Troponin T C-Reactive Protein Total Protein Albumin Arterial Blood Glucose 225 H Arterial Blood Ionized Calcium 4.4 L Urine WBC (Auto) Urine Creatinine 08/26/20 08/26/20 08/26/20 04:14 05:04 05:04 WBC 17.9 H RBC 3.05 L Hgb 8.3 L Hct 25.6 L MCH 27 L MCHC RDW 15.3 H Lymph % (Auto) Lymph # (Auto) Seg Neutrophils % Seg Neuts % (Manual) 96.0 H Lymphocytes % (Manual) 1.0 L Seg Neutrophils # Seg Neutrophils # Man 17.2 H Lymphocytes # (Manual) 0.2 L D-Dimer ABG pH POC ABG pO2 131.3 H ABG pO2 ABG HCO3 ABG Hemoglobin 8.6 L ABG Oxyhemoglobin 98.2 H ABG Sodium ABG Potassium ABG Glucose 182 H Oxyhemoglobin Carboxyhemoglobin 0.2 L Sodium Potassium Chloride Carbon Dioxide BUN 56 H Creatinine 3.4 H Glucose 187 H POC Glucose Lactic Acid Calcium 8.3 L Phosphorus Magnesium AST 54 H ALT 57 H Troponin T C-Reactive Protein Total Protein 5.4 L Albumin 2.9 L Arterial Blood Glucose 182 H Arterial Blood Ionized Calcium 4.3 L Urine WBC (Auto) Urine Creatinine 08/26/20 08/26/20 08/26/20 05:40 07:36 11:54 WBC RBC Hgb Hct MCH MCHC RDW Lymph % (Auto) Lymph # (Auto) Seg Neutrophils % Seg Neuts % (Manual) Lymphocytes % (Manual) Seg Neutrophils # Seg Neutrophils # Man Lymphocytes # (Manual) D-Dimer ABG pH POC ABG pO2 ABG pO2 ABG HCO3 ABG Hemoglobin ABG Oxyhemoglobin ABG Sodium ABG Potassium ABG Glucose Oxyhemoglobin Carboxyhemoglobin Sodium Potassium Chloride Carbon Dioxide BUN Creatinine Glucose POC Glucose 179 H 171 H 190 H Lactic Acid Calcium Phosphorus Magnesium AST ALT Troponin T C-Reactive Protein Total Protein Albumin Arterial Blood Glucose Arterial Blood Ionized Calcium Urine WBC (Auto) Urine Creatinine 08/26/20 08/26/20 08/26/20 15:14 17:00 18:50 WBC RBC Hgb Hct MCH MCHC RDW Lymph % (Auto) Lymph # (Auto) Seg Neutrophils % Seg Neuts % (Manual) Lymphocytes % (Manual) Seg Neutrophils # Seg Neutrophils # Man Lymphocytes # (Manual) D-Dimer ABG pH POC ABG pO2 ABG pO2 ABG HCO3 ABG Hemoglobin ABG Oxyhemoglobin ABG Sodium ABG Potassium ABG Glucose Oxyhemoglobin Carboxyhemoglobin Sodium Potassium Chloride Carbon Dioxide BUN Creatinine Glucose POC Glucose 158 H Lactic Acid Calcium Phosphorus Magnesium AST ALT Troponin T C-Reactive Protein 7.80 H Total Protein Albumin Arterial Blood Glucose Arterial Blood Ionized Calcium Urine WBC (Auto) Urine Creatinine 67.4 H 08/26/20 08/27/20 08/27/20 22:01 04:10 05:12 WBC RBC Hgb Hct MCH MCHC RDW Lymph % (Auto) Lymph # (Auto) Seg Neutrophils % Seg Neuts % (Manual) Lymphocytes % (Manual) Seg Neutrophils # Seg Neutrophils # Man Lymphocytes # (Manual) D-Dimer ABG pH 7.454 H POC ABG pO2 74.9 L ABG pO2 ABG HCO3 ABG Hemoglobin 7.9 L ABG Oxyhemoglobin ABG Sodium ABG Potassium ABG Glucose 117 H Oxyhemoglobin Carboxyhemoglobin Sodium Potassium Chloride Carbon Dioxide BUN Creatinine Glucose POC Glucose 122 H 117 H Lactic Acid Calcium Phosphorus Magnesium AST ALT Troponin T C-Reactive Protein Total Protein Albumin Arterial Blood Glucose 117 H Arterial Blood Ionized Calcium 4.4 L Urine WBC (Auto) Urine Creatinine 08/27/20 08/27/20 08/27/20 07:24 07:24 11:08 WBC 12.7 H RBC 2.92 L Hgb 8.1 L Hct 24.4 L MCH MCHC RDW 15.4 H Lymph % (Auto) 5.9 L Lymph # (Auto) 0.8 L Seg Neutrophils % 86.9 H Seg Neuts % (Manual) Lymphocytes % (Manual) Seg Neutrophils # 11.0 H Seg Neutrophils # Man Lymphocytes # (Manual) D-Dimer ABG pH POC ABG pO2 ABG pO2 ABG HCO3 ABG Hemoglobin ABG Oxyhemoglobin ABG Sodium ABG Potassium ABG Glucose Oxyhemoglobin Carboxyhemoglobin Sodium Potassium Chloride Carbon Dioxide BUN 60 H Creatinine 3.6 H Glucose 135 H POC Glucose 139 H Lactic Acid Calcium Phosphorus Magnesium AST ALT Troponin T C-Reactive Protein Total Protein 5.3 L Albumin 2.6 L Arterial Blood Glucose Arterial Blood Ionized Calcium Urine WBC (Auto) Urine Creatinine 08/27/20 08/27/20 08/27/20 11:19 17:31 23:25 WBC RBC Hgb Hct MCH MCHC RDW Lymph % (Auto) Lymph # (Auto) Seg Neutrophils % Seg Neuts % (Manual) Lymphocytes % (Manual) Seg Neutrophils # Seg Neutrophils # Man Lymphocytes # (Manual) D-Dimer ABG pH POC ABG pO2 ABG pO2 ABG HCO3 ABG Hemoglobin ABG Oxyhemoglobin ABG Sodium ABG Potassium ABG Glucose Oxyhemoglobin Carboxyhemoglobin Sodium Potassium Chloride Carbon Dioxide BUN Creatinine Glucose POC Glucose 143 H 140 H 123 H Lactic Acid Calcium Phosphorus Magnesium AST ALT Troponin T C-Reactive Protein Total Protein Albumin Arterial Blood Glucose Arterial Blood Ionized Calcium Urine WBC (Auto) Urine Creatinine 08/28/20 08/28/20 08/28/20 03:50 04:19 04:19 WBC RBC 2.80 L Hgb 7.8 L Hct 23.6 L MCH MCHC RDW 15.8 H Lymph % (Auto) Lymph # (Auto) Seg Neutrophils % Seg Neuts % (Manual) Lymphocytes % (Manual) Seg Neutrophils # Seg Neutrophils # Man Lymphocytes # (Manual) D-Dimer ABG pH 7.329 L POC ABG pO2 ABG pO2 76.7 L ABG HCO3 27.0 H ABG Hemoglobin 7.5 L ABG Oxyhemoglobin ABG Sodium ABG Potassium ABG Glucose Oxyhemoglobin 93.6 L Carboxyhemoglobin Sodium 135 L Potassium Chloride Carbon Dioxide BUN 64 H Creatinine 3.8 H Glucose 143 H POC Glucose Lactic Acid Calcium 8.0 L Phosphorus Magnesium AST ALT Troponin T C-Reactive Protein Total Protein 4.8 L Albumin 2.4 L Arterial Blood Glucose Arterial Blood Ionized Calcium Urine WBC (Auto) Urine Creatinine 08/28/20 08/28/20 08/28/20 05:35 11:22 17:18 WBC RBC Hgb Hct MCH MCHC RDW Lymph % (Auto) Lymph # (Auto) Seg Neutrophils % Seg Neuts % (Manual) Lymphocytes % (Manual) Seg Neutrophils # Seg Neutrophils # Man Lymphocytes # (Manual) D-Dimer ABG pH POC ABG pO2 ABG pO2 ABG HCO3 ABG Hemoglobin ABG Oxyhemoglobin ABG Sodium ABG Potassium ABG Glucose Oxyhemoglobin Carboxyhemoglobin Sodium Potassium Chloride Carbon Dioxide BUN Creatinine Glucose POC Glucose 147 H 182 H 216 H Lactic Acid Calcium Phosphorus Magnesium AST ALT Troponin T C-Reactive Protein Total Protein Albumin Arterial Blood Glucose Arterial Blood Ionized Calcium Urine WBC (Auto) Urine Creatinine 08/28/20 08/28/20 08/29/20 21:04 23:20 04:32 WBC RBC Hgb Hct MCH MCHC RDW Lymph % (Auto) Lymph # (Auto) Seg Neutrophils % Seg Neuts % (Manual) Lymphocytes % (Manual) Seg Neutrophils # Seg Neutrophils # Man Lymphocytes # (Manual) D-Dimer ABG pH POC ABG pO2 ABG pO2 ABG HCO3 ABG Hemoglobin ABG Oxyhemoglobin ABG Sodium ABG Potassium ABG Glucose Oxyhemoglobin Carboxyhemoglobin Sodium 135 L Potassium Chloride 96.0 L Carbon Dioxide BUN 67 H Creatinine 3.8 H Glucose 200 H POC Glucose 204 H 242 H Lactic Acid Calcium 8.2 L Phosphorus Magnesium AST ALT Troponin T C-Reactive Protein Total Protein Albumin Arterial Blood Glucose Arterial Blood Ionized Calcium Urine WBC (Auto) Urine Creatinine 08/29/20 08/29/20 08/29/20 04:32 04:50 04:59 WBC RBC 3.25 L Hgb 9.0 L Hct 27.0 L MCH MCHC RDW 16.1 H Lymph % (Auto) Lymph # (Auto) Seg Neutrophils % Seg Neuts % (Manual) Lymphocytes % (Manual) Seg Neutrophils # Seg Neutrophils # Man Lymphocytes # (Manual) D-Dimer ABG pH POC ABG pO2 ABG pO2 ABG HCO3 ABG Hemoglobin 8.8 L ABG Oxyhemoglobin ABG Sodium ABG Potassium ABG Glucose Oxyhemoglobin Carboxyhemoglobin Sodium Potassium Chloride Carbon Dioxide BUN Creatinine Glucose POC Glucose 201 H Lactic Acid Calcium Phosphorus Magnesium AST ALT Troponin T C-Reactive Protein Total Protein Albumin Arterial Blood Glucose Arterial Blood Ionized Calcium Urine WBC (Auto) Urine Creatinine 08/29/20 08/29/20 08/29/20 11:10 11:28 17:50 WBC RBC Hgb Hct MCH MCHC RDW Lymph % (Auto) Lymph # (Auto) Seg Neutrophils % Seg Neuts % (Manual) Lymphocytes % (Manual) Seg Neutrophils # Seg Neutrophils # Man Lymphocytes # (Manual) D-Dimer ABG pH POC ABG pO2 ABG pO2 78.7 L ABG HCO3 26.6 H ABG Hemoglobin 9.8 L ABG Oxyhemoglobin ABG Sodium ABG Potassium ABG Glucose Oxyhemoglobin 94.3 L Carboxyhemoglobin Sodium Potassium Chloride Carbon Dioxide BUN Creatinine Glucose POC Glucose 219 H 203 H Lactic Acid Calcium Phosphorus Magnesium AST ALT Troponin T C-Reactive Protein Total Protein Albumin Arterial Blood Glucose Arterial Blood Ionized Calcium Urine WBC (Auto) Urine Creatinine 08/29/20 08/29/20 08/30/20 21:31 23:28 04:14 WBC RBC Hgb Hct MCH MCHC RDW Lymph % (Auto) Lymph # (Auto) Seg Neutrophils % Seg Neuts % (Manual) Lymphocytes % (Manual) Seg Neutrophils # Seg Neutrophils # Man Lymphocytes # (Manual) D-Dimer ABG pH POC ABG pO2 ABG pO2 ABG HCO3 ABG Hemoglobin ABG Oxyhemoglobin ABG Sodium ABG Potassium ABG Glucose Oxyhemoglobin Carboxyhemoglobin Sodium 132 L Potassium Chloride 94.8 L Carbon Dioxide BUN 68 H Creatinine 3.7 H Glucose 214 H POC Glucose 204 H 215 H Lactic Acid Calcium Phosphorus Magnesium AST ALT Troponin T C-Reactive Protein Total Protein Albumin Arterial Blood Glucose Arterial Blood Ionized Calcium Urine WBC (Auto) Urine Creatinine 08/30/20 08/30/20 08/30/20 05:10 11:33 17:32 WBC RBC Hgb Hct MCH MCHC RDW Lymph % (Auto) Lymph # (Auto) Seg Neutrophils % Seg Neuts % (Manual) Lymphocytes % (Manual) Seg Neutrophils # Seg Neutrophils # Man Lymphocytes # (Manual) D-Dimer ABG pH POC ABG pO2 ABG pO2 ABG HCO3 ABG Hemoglobin ABG Oxyhemoglobin ABG Sodium ABG Potassium ABG Glucose Oxyhemoglobin Carboxyhemoglobin Sodium Potassium Chloride Carbon Dioxide BUN Creatinine Glucose POC Glucose 210 H 194 H 202 H Lactic Acid Calcium Phosphorus Magnesium AST ALT Troponin T C-Reactive Protein Total Protein Albumin Arterial Blood Glucose Arterial Blood Ionized Calcium Urine WBC (Auto) Urine Creatinine 08/30/20 08/30/20 08/30/20 21:39 23:21 Unknown WBC RBC Hgb Hct MCH MCHC RDW Lymph % (Auto) Lymph # (Auto) Seg Neutrophils % Seg Neuts % (Manual) Lymphocytes % (Manual) Seg Neutrophils # Seg Neutrophils # Man Lymphocytes # (Manual) D-Dimer ABG pH POC ABG pO2 ABG pO2 99.0 H ABG HCO3 ABG Hemoglobin 9.8 L ABG Oxyhemoglobin ABG Sodium ABG Potassium ABG Glucose Oxyhemoglobin Carboxyhemoglobin Sodium Potassium Chloride Carbon Dioxide BUN Creatinine Glucose POC Glucose 199 H 209 H Lactic Acid Calcium Phosphorus Magnesium AST ALT Troponin T C-Reactive Protein Total Protein Albumin Arterial Blood Glucose Arterial Blood Ionized Calcium Urine WBC (Auto) Urine Creatinine 08/31/20 08/31/20 08/31/20 04:10 05:19 10:57 WBC RBC Hgb Hct MCH MCHC RDW Lymph % (Auto) Lymph # (Auto) Seg Neutrophils % Seg Neuts % (Manual) Lymphocytes % (Manual) Seg Neutrophils # Seg Neutrophils # Man Lymphocytes # (Manual) D-Dimer ABG pH 7.451 H POC ABG pO2 ABG pO2 99.6 H ABG HCO3 ABG Hemoglobin 8.4 L ABG Oxyhemoglobin ABG Sodium ABG Potassium ABG Glucose Oxyhemoglobin Carboxyhemoglobin Sodium 133 L Potassium Chloride 96.4 L Carbon Dioxide BUN 74 H Creatinine 3.8 H Glucose 201 H POC Glucose 182 H Lactic Acid Calcium 7.6 L Phosphorus Magnesium AST ALT Troponin T C-Reactive Protein Total Protein Albumin Arterial Blood Glucose Arterial Blood Ionized Calcium Urine WBC (Auto) Urine Creatinine 08/31/20 08/31/20 08/31/20 10:57 12:32 17:15 WBC 11.4 H RBC 3.24 L Hgb 8.5 L Hct 26.6 L MCH 26 L MCHC RDW 15.6 H Lymph % (Auto) Lymph # (Auto) Seg Neutrophils % Seg Neuts % (Manual) Lymphocytes % (Manual) Seg Neutrophils # Seg Neutrophils # Man Lymphocytes # (Manual) D-Dimer ABG pH POC ABG pO2 ABG pO2 ABG HCO3 ABG Hemoglobin ABG Oxyhemoglobin ABG Sodium ABG Potassium ABG Glucose Oxyhemoglobin Carboxyhemoglobin Sodium Potassium Chloride Carbon Dioxide BUN Creatinine Glucose POC Glucose 217 H 203 H Lactic Acid Calcium Phosphorus Magnesium AST ALT Troponin T C-Reactive Protein Total Protein Albumin Arterial Blood Glucose Arterial Blood Ionized Calcium Urine WBC (Auto) Urine Creatinine 09/01/20 09/01/20 09/01/20 00:06 05:05 09:41 WBC RBC Hgb Hct MCH MCHC RDW Lymph % (Auto) Lymph # (Auto) Seg Neutrophils % Seg Neuts % (Manual) Lymphocytes % (Manual) Seg Neutrophils # Seg Neutrophils # Man Lymphocytes # (Manual) D-Dimer ABG pH POC ABG pO2 ABG pO2 ABG HCO3 ABG Hemoglobin ABG Oxyhemoglobin ABG Sodium ABG Potassium ABG Glucose Oxyhemoglobin Carboxyhemoglobin Sodium 134 L Potassium Chloride 95.2 L Carbon Dioxide BUN 81 H Creatinine 3.7 H Glucose 201 H POC Glucose 223 H 225 H Lactic Acid Calcium Phosphorus 4.60 H Magnesium 2.40 H AST ALT Troponin T C-Reactive Protein Total Protein Albumin Arterial Blood Glucose Arterial Blood Ionized Calcium Urine WBC (Auto) Urine Creatinine 09/01/20 09/01/20 09/01/20 09:41 12:51 13:08 WBC 11.5 H RBC 3.58 L Hgb 9.2 L Hct 29.7 L MCH 26 L MCHC RDW 16.0 H Lymph % (Auto) Lymph # (Auto) Seg Neutrophils % Seg Neuts % (Manual) Lymphocytes % (Manual) Seg Neutrophils # Seg Neutrophils # Man Lymphocytes # (Manual) D-Dimer ABG pH 7.462 H POC ABG pO2 ABG pO2 ABG HCO3 ABG Hemoglobin 9.5 L ABG Oxyhemoglobin ABG Sodium 130.4 L ABG Potassium ABG Glucose 208 H Oxyhemoglobin Carboxyhemoglobin 0.4 L Sodium Potassium Chloride Carbon Dioxide BUN Creatinine Glucose POC Glucose 182 H Lactic Acid Calcium Phosphorus Magnesium AST ALT Troponin T C-Reactive Protein Total Protein Albumin Arterial Blood Glucose 208 H Arterial Blood Ionized Calcium 4.5 L Urine WBC (Auto) Urine Creatinine 09/01/20 09/01/20 09/02/20 18:34 23:14 05:22 WBC RBC Hgb Hct MCH MCHC RDW Lymph % (Auto) Lymph # (Auto) Seg Neutrophils % Seg Neuts % (Manual) Lymphocytes % (Manual) Seg Neutrophils # Seg Neutrophils # Man Lymphocytes # (Manual) D-Dimer ABG pH POC ABG pO2 ABG pO2 ABG HCO3 ABG Hemoglobin ABG Oxyhemoglobin ABG Sodium ABG Potassium ABG Glucose Oxyhemoglobin Carboxyhemoglobin Sodium Potassium Chloride Carbon Dioxide BUN Creatinine Glucose POC Glucose 183 H 181 H 178 H Lactic Acid Calcium Phosphorus Magnesium AST ALT Troponin T C-Reactive Protein Total Protein Albumin Arterial Blood Glucose Arterial Blood Ionized Calcium Urine WBC (Auto) Urine Creatinine 09/02/20 09/02/20 09/02/20 07:35 11:16 17:39 WBC RBC Hgb Hct MCH MCHC RDW Lymph % (Auto) Lymph # (Auto) Seg Neutrophils % Seg Neuts % (Manual) Lymphocytes % (Manual) Seg Neutrophils # Seg Neutrophils # Man Lymphocytes # (Manual) D-Dimer ABG pH POC ABG pO2 ABG pO2 ABG HCO3 ABG Hemoglobin ABG Oxyhemoglobin ABG Sodium ABG Potassium ABG Glucose Oxyhemoglobin Carboxyhemoglobin Sodium 135 L Potassium Chloride 96.0 L Carbon Dioxide BUN 88 H Creatinine 3.7 H Glucose 187 H POC Glucose 228 H 165 H Lactic Acid Calcium Phosphorus Magnesium AST ALT Troponin T C-Reactive Protein Total Protein Albumin Arterial Blood Glucose Arterial Blood Ionized Calcium Urine WBC (Auto) Urine Creatinine 09/02/20 09/03/20 09/03/20 23:24 05:35 08:31 WBC 18.5 H RBC 2.80 L Hgb 7.8 L Hct 22.7 L D MCH MCHC 35 H RDW 15.3 H Lymph % (Auto) Lymph # (Auto) Seg Neutrophils % Seg Neuts % (Manual) Lymphocytes % (Manual) Seg Neutrophils # Seg Neutrophils # Man Lymphocytes # (Manual) D-Dimer ABG pH POC ABG pO2 ABG pO2 ABG HCO3 ABG Hemoglobin ABG Oxyhemoglobin ABG Sodium ABG Potassium ABG Glucose Oxyhemoglobin Carboxyhemoglobin Sodium Potassium Chloride Carbon Dioxide BUN Creatinine Glucose POC Glucose 167 H 180 H Lactic Acid Calcium Phosphorus Magnesium AST ALT Troponin T C-Reactive Protein Total Protein Albumin Arterial Blood Glucose Arterial Blood Ionized Calcium Urine WBC (Auto) Urine Creatinine 09/03/20 09/03/20 09/03/20 08:31 12:02 17:05 WBC RBC Hgb Hct MCH MCHC RDW Lymph % (Auto) Lymph # (Auto) Seg Neutrophils % Seg Neuts % (Manual) Lymphocytes % (Manual) Seg Neutrophils # Seg Neutrophils # Man Lymphocytes # (Manual) D-Dimer ABG pH POC ABG pO2 ABG pO2 ABG HCO3 ABG Hemoglobin ABG Oxyhemoglobin ABG Sodium ABG Potassium ABG Glucose Oxyhemoglobin Carboxyhemoglobin Sodium 134 L Potassium Chloride 96.6 L Carbon Dioxide BUN 96 H Creatinine 3.7 H Glucose 190 H POC Glucose 156 H 150 H Lactic Acid Calcium 8.1 L Phosphorus Magnesium AST ALT Troponin T C-Reactive Protein Total Protein Albumin Arterial Blood Glucose Arterial Blood Ionized Calcium Urine WBC (Auto) Urine Creatinine 09/03/20 09/04/20 09/04/20 23:31 05:23 09:49 WBC RBC Hgb Hct MCH MCHC RDW Lymph % (Auto) Lymph # (Auto) Seg Neutrophils % Seg Neuts % (Manual) Lymphocytes % (Manual) Seg Neutrophils # Seg Neutrophils # Man Lymphocytes # (Manual) D-Dimer ABG pH POC ABG pO2 ABG pO2 ABG HCO3 ABG Hemoglobin ABG Oxyhemoglobin ABG Sodium ABG Potassium ABG Glucose Oxyhemoglobin Carboxyhemoglobin Sodium Potassium Chloride 97.9 L Carbon Dioxide BUN 98 H Creatinine 4.0 H Glucose 171 H POC Glucose 143 H 165 H Lactic Acid Calcium Phosphorus Magnesium AST ALT Troponin T C-Reactive Protein Total Protein Albumin Arterial Blood Glucose Arterial Blood Ionized Calcium Urine WBC (Auto) Urine Creatinine 09/04/20 09/04/20 09/04/20 12:05 17:46 21:25 WBC RBC Hgb Hct MCH MCHC RDW Lymph % (Auto) Lymph # (Auto) Seg Neutrophils % Seg Neuts % (Manual) Lymphocytes % (Manual) Seg Neutrophils # Seg Neutrophils # Man Lymphocytes # (Manual) D-Dimer ABG pH POC ABG pO2 ABG pO2 ABG HCO3 ABG Hemoglobin ABG Oxyhemoglobin ABG Sodium ABG Potassium ABG Glucose Oxyhemoglobin Carboxyhemoglobin Sodium Potassium Chloride Carbon Dioxide BUN Creatinine Glucose POC Glucose 200 H 184 H 177 H Lactic Acid Calcium Phosphorus Magnesium AST ALT Troponin T C-Reactive Protein Total Protein Albumin Arterial Blood Glucose Arterial Blood Ionized Calcium Urine WBC (Auto) Urine Creatinine 09/05/20 09/05/20 09/05/20 00:06 04:34 08:40 WBC RBC Hgb Hct MCH MCHC RDW Lymph % (Auto) Lymph # (Auto) Seg Neutrophils % Seg Neuts % (Manual) Lymphocytes % (Manual) Seg Neutrophils # Seg Neutrophils # Man Lymphocytes # (Manual) D-Dimer ABG pH POC ABG pO2 ABG pO2 ABG HCO3 ABG Hemoglobin ABG Oxyhemoglobin ABG Sodium ABG Potassium ABG Glucose Oxyhemoglobin Carboxyhemoglobin Sodium 133 L Potassium Chloride 92.5 L Carbon Dioxide BUN 99 H Creatinine 3.6 H Glucose 167 H POC Glucose 198 H 189 H Lactic Acid Calcium Phosphorus Magnesium AST ALT Troponin T C-Reactive Protein Total Protein Albumin Arterial Blood Glucose Arterial Blood Ionized Calcium Urine WBC (Auto) Urine Creatinine 09/05/20 09/05/20 09/05/20 11:28 17:54 23:28 WBC RBC Hgb Hct MCH MCHC RDW Lymph % (Auto) Lymph # (Auto) Seg Neutrophils % Seg Neuts % (Manual) Lymphocytes % (Manual) Seg Neutrophils # Seg Neutrophils # Man Lymphocytes # (Manual) D-Dimer ABG pH POC ABG pO2 ABG pO2 ABG HCO3 ABG Hemoglobin ABG Oxyhemoglobin ABG Sodium ABG Potassium ABG Glucose Oxyhemoglobin Carboxyhemoglobin Sodium Potassium Chloride Carbon Dioxide BUN Creatinine Glucose POC Glucose 171 H 169 H 163 H Lactic Acid Calcium Phosphorus Magnesium AST ALT Troponin T C-Reactive Protein Total Protein Albumin Arterial Blood Glucose Arterial Blood Ionized Calcium Urine WBC (Auto) Urine Creatinine 09/06/20 09/06/20 09/06/20 05:17 11:55 Unknown WBC RBC Hgb Hct MCH MCHC RDW Lymph % (Auto) Lymph # (Auto) Seg Neutrophils % Seg Neuts % (Manual) Lymphocytes % (Manual) Seg Neutrophils # Seg Neutrophils # Man Lymphocytes # (Manual) D-Dimer ABG pH POC ABG pO2 ABG pO2 ABG HCO3 ABG Hemoglobin ABG Oxyhemoglobin ABG Sodium ABG Potassium ABG Glucose Oxyhemoglobin Carboxyhemoglobin Sodium 132 L Potassium Chloride 91.9 L Carbon Dioxide BUN 104 H Creatinine 3.8 H Glucose 177 H POC Glucose 151 H 175 H Lactic Acid Calcium Phosphorus Magnesium 2.60 H AST ALT Troponin T C-Reactive Protein Total Protein Albumin Arterial Blood Glucose Arterial Blood Ionized Calcium Urine WBC (Auto) Urine Creatinine 09/06/20 Unknown WBC 17.3 H RBC 3.25 L Hgb 8.7 L Hct 26.2 L MCH 27 L MCHC RDW 15.6 H Lymph % (Auto) 4.4 L Lymph # (Auto) 0.8 L Seg Neutrophils % 89.5 H Seg Neuts % (Manual) Lymphocytes % (Manual) Seg Neutrophils # 15.5 H Seg Neutrophils # Man Lymphocytes # (Manual) D-Dimer ABG pH POC ABG pO2 ABG pO2 ABG HCO3 ABG Hemoglobin ABG Oxyhemoglobin ABG Sodium ABG Potassium ABG Glucose Oxyhemoglobin Carboxyhemoglobin Sodium Potassium Chloride Carbon Dioxide BUN Creatinine Glucose POC Glucose Lactic Acid Calcium Phosphorus Magnesium AST ALT Troponin T C-Reactive Protein Total Protein Albumin Arterial Blood Glucose Arterial Blood Ionized Calcium Urine WBC (Auto) Urine Creatinine Chest x-ray: pending Allied health notes reviewed: nursing
[2020-09-06] MEDS: MIDAZOLAM 100 MG in SODIUM CHLORIDE 0.9% 80 ML IV SCH (15:46)
--- NOTE | 2020-09-06 16:53 | Progress Note ---
Assessment and Plan This is a 75-year-old female with CHF, OHS DM, CKD, morbid obesity, GERD, hypertension, chronic respiratory failure admitted s/p cardiac arrest A/P --Anoxic encephalopathy -Neurology consulted, appreciate recommendations -08/25 [address] head shows no CT evidence of acute abnormality -08/28 MRI brain without contrast shows abnormal diffusion and FLAIR signal abnormality which may suggest hypoxic/ischemic brain injury, hypoglycemic encephalopathy and perhaps Creutsfeldt-Cornelius disease otherwise no focal mass, hemorrhage or hydrocephalus seen -08/30 EEG- results pending Seizure -Keppra 500 mg mg BID , vimpat, Ativan as needed for facial twitching -Seizure/aspiration precautions -per neuro prognosis poor based on MRI -NO mind altering medications - to allow for neuro assessment and brain function -opens eyes spontaneously ; pupils not reactive to light; neg threat; pos cough; withdrawal on right to deep pain; no response to deep pain on left Pt has 8 living children- updated on plan of care --S/p cardiac arrest with prolonged down time- see ER note -ddimer elevated on admit following cardiac arrest -Cardiology has seen and signed off- call if needed -08/25 echocardiogram shows LVEF 40 to 45%, LV normal size, LV systolic function mildly decreased, mild diastolic dysfunction, mildly dilated right ventricle, pulmonary hypertension RVSP 45 mmHg -asa and statin Hypertension -home norvasc , hydral added -Blood pressure monitoring per protocol -IV hydralazine as needed --Acute hypoxic respiratory failure -Chronic respiratory insufficiency at home with 3 L oxygen via nasal cannula -remains intubated and ventilated on cpap this AM -Wean as tolerated; trend pulse ox -CCM following -VAP bundle -nebs as needed Multifocal pneumonia/ ? aspiration event -08/25 CXR shows worsening patchy bilateral pulmonary opacities -08/25 CTA chest shows no evidence of pulmonary embolism, bilateral pulmonary processes with large bilateral pleural effusions, pneumonia is a concern, pulmonary edema could be a similar appearance versus pulmonary edema --Protein Calorie Malnutrition TF per nutrition bowel reg. --FLORIDALMA on CKD secondary to patient under nephropathy -Nephrology consulted, patient recommendations -Daily weights -Avoid nephrotoxic medications; avoid NITIN/ARB -bladder scan with high residuals requiring frequent intermittent caths so foreman replaced at 1230 -trend and replace electrolytes as needed -Trend Cr --Urinary retention -Foreman replaced 08/31 for urinary retention --Anemia -Admit H/H 8.6/27.8 -Transfuse for hemoglobin less than 7 -Trend CBC --VTE prophylaxis with SCD and SQH --Pneumonia -trend WBC and temp curve -afebrile -trend cultures -covid neg on admit --Diabetes mellitus -SSI -Lantus, increase as needed -Accu-Cheks every 6h -avoid hypoglycemia -hx obesity DVT/GI prophylaxis: SCDs to bilateral lower extremities heparin subcu, PPI Disposition: ICU, general surgery was consulted for PEG and trach, patient family is still making decisions on patient's care. Lines: PIV; foreman Extremity poor prognosis due to anoxic brain injury following cardiac arrest. The high probability of a clinically significant, sudden or life threatening deterioration of the [cardiac, pulmonary, neuro, renal, infectious disease] system(s) required my full and direct attention, intervention and personal management. The aggregate critical care time was [35] minutes. This time is in addition to time spent performing reported procedures but includes the following: [x] Data Review and interpretation [x] Patient assessment and monitoring of vital signs [x] Documentation [x] Medication orders and management Brief History: This is a 69-year-old female with OHS, DM, CKD stage IV, morbid obesity CHF, GERD, HTN, chronic respiratory failure on 3 L of home oxygen via nasal cannula who presented to the emergency department on 08/25 after being found down unresponsive at 0950 hours by family and upon EMS arrival she was unresponsive and asystolic arrest. Patient was treated with ACLS protocol with eventual ROSC after at least 15 minutes of ACLS and patient was transported to [facility]. In the emergency department patient was found to have acute hypoxic respiratory failure and subsequently intubated on vasopressor support, she underwent a CXR which showed bilateral pneumonia and exam is consistent with SIRS. CCM and cardiology were consulted and patient was admitted to the hospital service with acute hypoxic respiratory failure, anoxic encephalopathy, s/p cardiac arrest, multifocal pneumonia, FLORIDALMA on CKD. Daily clinical course: 08/26/20 patient is seen and examined. Patient is on vent. WBC 17.9 and hemoglobin 8.3 hematocrit 25.6. Patient may have 1 episode of questionable seizure. Patient BUN is 56 creatinine 3.4. Will consult nephrology. We also start the patient on Rocephin 2 g IV daily and Zithromax. Aspirin 81 mg p.o. daily and Lipitor. Patient is having echocardiogram. Cardiology and critical care will see the patient as consult tension. Continue current management. We have started on NG tube feeding and consult nutrition for evaluation. Recheck CBC BMP in the morning. Case discussed with daughter Leena [phone] 08/27: Patient remains on full ventilatory support, considering concern for seizure yesterday under the circumstance of out of hospital cardiac arrest, and concern for anoxic encephalopathy, will proceed with Neurology consultation. 08/28: At the time my examination patient sedation of propofol 30 and fentanyl 1 was being held and she was on CMV tidal and 450, rate of 18, PEEP of 6 and FiO2 of 35%. Neurology was consulted. I updated the patient's daughter Leena Payton at bedside and told her of the pending tests the neurologist has ordered. 08/29: Increase in Lantus due to persistent hypoglycemia, chest ultrasound ordered for possible thoracentesis by [facility], MRI brain pending. Remove Foreman catheter if okay with nephrology. Increase in beta-skylar by [facility] however cardiology decreased hydralazine per neurology recommendations. At the time my examination patient was on CPAP trial pressure support of 12, PEEP of 6 and 35% FiO2. RT obtain an ABG we will continue CPAP as tolerated. 08/28: No acute events overnight. Noted to have seizure, addition of vimpat 08/29: Chest US noted to have pleural effusions, cxr shows pulmonary edema, nephro ordered lasix x1. CCM and nephro had conversation son at bedside. Surgery consulted for trach/peg. [facility] plans for IR thora if family decides aggressive care 08/30 No acute overnight events 08/31: given 80mg lasix by nephro, increase in lantus, Dulcolax suppository given for no recorded BM for 5 to 6 days 72: Patient did not have a further response to 80 mg of Lasix yesterday, no acute events reported overnight, patient is having several loose BMs 09/02: Patient was having facial twitching this morning, 1 mg of Ativan was given to the patient, Keppra was increased. No family at the bedside. 09/04: Patient continues to have facial twitching, neurology has made adjustments to medications for seizure control, spoke with critical care and the son at the bedside, family still deciding on the final route of care 09/05: Patient seen and examined in the ICU, continue to have social drinking. General surgery consulted for trach and PEG. Patient with CPAP vent setting. 09/06: Patient developed sinus bradycardia, cardiology consulted. Plan for trach and PEG placement postponded. cont supportive care, poor prognosis. Subjective Date of service: 09/06/20 Principal diagnosis: Ac. hypoxemic resp failure; Cardiac arrest; AMS; AE-CHF; Hyperkalemia; FLORIDALMA Interval history: Patient seen and examined. Medical records and medication list reviewed. No acute event overnight noted by the RN. Vital reviewed, remains on mechanical ventilation Discussed plan of care at bedside with RN Objective - Exam Narrative Exam: GENERAL: well-developed and well-nourished elderly female lying on bed with ventilator support HEENT: Normocephalic. Atraumatic. No conjunctival congestion or icterus. Patie nt has moist mucous membranes. NECK: Supple. Trachea midline. CHEST/LUNGS: On mechanical ventilation with CPAP setting HEART/CARDIOVASCULAR: Regular in rate and rhythm. S1 and S2 positive. ABDOMEN: Abdomen is soft, nontender. Patient has normal bowel sounds. SKIN: There is no rash. Warm and dry. NEURO: Does not follow command MUSCULOSKELETAL: No joint effusion or tenderness. EXTRIMITY: No edema, no cyanosis or clubbing. PSYCH: Unable to assess - Constitutional Vitals: Vital Signs - 12hr 09/06/20 09/06/20 09/06/20 04:57 05:00 05:16 Temperature Pulse Rate 64 63 63 Pulse Rate [ 63 From Monitor] Respiratory 15 18 Rate Blood Pressure 131/41 131/41 135/42 O2 Sat by Pulse 99 95 97 Oximetry 09/06/20 09/06/20 09/06/20 05:30 05:46 06:00 Temperature Pulse Rate 64 62 62 Pulse Rate [ From Monitor] Respiratory 16 12 13 Rate Blood Pressure 139/43 135/42 133/42 O2 Sat by Pulse 96 97 97 Oximetry 09/06/20 09/06/20 09/06/20 06:15 06:30 06:43 Temperature Pulse Rate 76 85 86 Pulse Rate [ From Monitor] Respiratory 19 16 Rate Blood Pressure 155/54 152/57 152/57 O2 Sat by Pulse 96 96 Oximetry 09/06/20 09/06/20 09/06/20 06:46 07:00 07:16 Temperature Pulse Rate 86 86 84 Pulse Rate [ From Monitor] Respiratory 16 15 14 Rate Blood Pressure 153/56 155/56 154/55 O2 Sat by Pulse 96 96 Oximetry 09/06/20 09/06/20 09/06/20 07:30 07:46 07:55 Temperature Pulse Rate 83 83 86 Pulse Rate [ From Monitor] Respiratory 14 14 Rate Blood Pressure 147/55 148/58 152/57 O2 Sat by Pulse 96 96 96 Oximetry 09/06/20 09/06/20 09/06/20 08:00 08:16 08:30 Temperature 99.2 F Pulse Rate 82 80 80 Pulse Rate [ From Monitor] Respiratory 14 14 15 Rate Blood Pressure 149/51 150/53 149/53 O2 Sat by Pulse 96 96 96 Oximetry 09/06/20 09/06/20 09/06/20 08:46 09:00 09:16 Temperature Pulse Rate 79 78 73 Pulse Rate [ From Monitor] Respiratory 13 14 20 Rate Blood Pressure 148/53 151/55 147/55 O2 Sat by Pulse 96 96 97 Oximetry 09/06/20 09/06/20 09/06/20 09:30 09:46 09:57 Temperature Pulse Rate 79 78 59 L Pulse Rate [ From Monitor] Respiratory 16 14 Rate Blood Pressure 156/57 156/54 156/54 O2 Sat by Pulse 96 96 Oximetry 09/06/20 09/06/20 09/06/20 10:00 10:16 10:30 Temperature Pulse Rate 59 L 65 58 L Pulse Rate [ From Monitor] Respiratory 14 17 12 Rate Blood Pressure 129/41 153/56 153/56 O2 Sat by Pulse 96 98 96 Oximetry 09/06/20 09/06/20 09/06/20 10:46 11:00 11:16 Temperature Pulse Rate 57 L 57 L 57 L Pulse Rate [ From Monitor] Respiratory 13 14 13 Rate Blood Pressure 122/43 120/43 120/43 O2 Sat by Pulse 97 98 98 Oximetry 09/06/20 09/06/20 09/06/20 11:30 11:46 12:00 Temperature 98.3 F Pulse Rate 57 L 57 L 57 L Pulse Rate [ From Monitor] Respiratory 13 21 Rate Blood Pressure 122/43 131/45 136/46 O2 Sat by Pulse 98 98 98 Oximetry 09/06/20 09/06/20 09/06/20 12:01 12:16 12:30 Temperature Pulse Rate 57 L 57 L 49 L Pulse Rate [ From Monitor] Respiratory 12 14 15 Rate Blood Pressure 136/46 140/47 140/47 O2 Sat by Pulse 98 98 Oximetry 09/06/20 09/06/20 09/06/20 12:46 13:00 16:30 Temperature Pulse Rate 62 81 81 Pulse Rate [ From Monitor] Respiratory 12 12 Rate Blood Pressure 115/52 115/52 115/52 O2 Sat by Pulse 96 97 97 Oximetry - Labs CBC & Chem 7: 09/10/20 06:50 09/11/20 04:30 Labs: Abnormal lab results 09/05/20 09/05/20 09/06/20 Range/Units 17:54 23:28 05:17 WBC (4.5-11.0) K/mm3 RBC (3.65-5.03) M/mm3 Hgb (10.1-14.3) gm/dl Hct (30.3-42.9) % MCH (28-32) pg RDW (13.2-15.2) % Lymph % (Auto) (13.4-35.0) % Lymph # (Auto) (1.2-5.4) K/mm3 Seg Neutrophils % (40.0-70.0) % Seg Neutrophils # (1.8-7.7) K/mm3 Sodium (137-145) mmol/L Chloride (98-107) mmol/L BUN (7-17) mg/dL Creatinine (0.6-1.2) mg/dL Glucose (65-100) mg/dL POC Glucose 169 H 163 H 151 H (70-105) mg/dL Magnesium (1.7-2.3) mg/dL 09/06/20 09/06/20 09/06/20 Range/Units 11:55 Unknown Unknown WBC 17.3 H (4.5-11.0) K/mm3 RBC 3.25 L (3.65-5.03) M/mm3 Hgb 8.7 L (10.1-14.3) gm/dl Hct 26.2 L (30.3-42.9) % MCH 27 L (28-32) pg RDW 15.6 H (13.2-15.2) % Lymph % (Auto) 4.4 L (13.4-35.0) % Lymph # (Auto) 0.8 L (1.2-5.4) K/mm3 Seg Neutrophils % 89.5 H (40.0-70.0) % Seg Neutrophils # 15.5 H (1.8-7.7) K/mm3 Sodium 132 L (137-145) mmol/L Chloride 91.9 L (98-107) mmol/L BUN 104 H (7-17) mg/dL Creatinine 3.8 H (0.6-1.2) mg/dL Glucose 177 H (65-100) mg/dL POC Glucose 175 H (70-105) mg/dL Magnesium 2.60 H (1.7-2.3) mg/dL HEART Score - HEART Score Troponin: Troponin T 0.057 ng/mL (0.00-0.029) H 08/25/20 11:23
--- NOTE | 2020-09-06 17:51 | Electrocardiograph Report ---
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
--- NOTE | 2020-09-06 18:00 | Electrocardiograph Report ---
[facility] Test Date: 2020-09-05 Test Time: 14:36:06 Pat Name: MARI YUSUF Department: Room: A255 1 Gender: F Car Porter: Lambert NESBITT : 1945 Requested By: RODRIGUEZ SALEH Order Number: [id number] Reading MD: Tahir Gil Measurements Intervals [place] Rate: 44 P: OR: QRS: 3 QRSD: 105 T: QT: 531 QTc: 455 Interpretive Statements Consider junctional rhythm, no P waves are evident Nonspecific T abnormalities, diffuse leads Compared to ECG 09/05/2020 01:22:47 P waves are less evident on the current EKG Electronically Signed On 09-06-2020 18:00:30 EDT by Tahir Gil
[2020-09-06] MEDS: INSULIN GLARGINE 100 UNITS/ML SUB-Q SCH (22:06)
[2020-09-07] MEDS: INSULIN LISPRO 100 UNIT/ML SUB-Q SCH ×4 (00:30→18:11)
[2020-09-07] MEDS: VALPROATE SODIUM 750 MG in SODIUM CHLORIDE 0.9% 100 ML IV SCH ×3 (06:25→21:38)
[2020-09-07] MEDS: DOPamine/D5W 800 MG/250 ML 800 MG/250 ML BAG IV SCH (06:25)
[2020-09-07] MEDS: hydrALAZINE 25 MG TAB PO SCH ×3 (06:26→21:40)
[2020-09-07 07:47] LABS: Basophils % (Auto) 0.2 % (0.0-1.8); Eosinophils # (Auto) 0.5 K/mm3 (0.0-0.4); Eosinophils % (Auto) 3.6 % (0.0-4.3); Hematocrit 25.2 % (30.3-42.9); Hemoglobin 8.1 gm/dl (10.1-14.3); Lymphocytes # (Auto) 0.8 K/mm3 (1.2-5.4); Mean Corpuscular HGB Conc 32 % (30-34); Mean Corpuscular Volume 80 fl (79-97); Monocytes # (Auto) 0.6 K/mm3 (0.0-0.8); Monocytes % (Auto) 4.7 % (0.0-7.3); Platelet Count 413 K/mm3 (140-440); Red Blood Count 3.14 M/mm3 (3.65-5.03); Red Cell Distribution Width 15.5 % (13.2-15.2)
[2020-09-07 08:05] LABS: Calcium 8.8 mg/dL (8.4-10.2)
[2020-09-07] MEDS: FAMOTIDINE 20 MG TAB PO SCH (09:38)
[2020-09-07] MEDS: TAMSULOSIN 0.4 MG CAP PO SCH (09:38)
[2020-09-07] MEDS: HEPARIN 5,000 UNIT/1 ML VIAL SUB-Q SCH ×2 (09:39→21:37)
[2020-09-07] MEDS: ASPIRIN 81 MG TAB CHEW PO SCH (09:39)
[2020-09-07] MEDS: SENNOSIDES/DOCUSATE SODIUM 8.6/50 MG TAB FEEDTUBE SCH ×2 (09:40→21:38)
[2020-09-07] MEDS: levETIRAcetam 500 MG in DEXTROSE 5% IN WATER 100 ML IV SCH ×2 (09:46→21:38)
--- NOTE | 2020-09-07 10:15 | Progress Note ---
Assessment and Plan 1. Acute kidney injury: Vasomotor FLORIDALMA superimposed on CKD stage 4 in the setting Cardiac arrest. Low FeNa. CT abdomen negative for hydro. Monitor renal function. Creatinine level around 3.6. Remain non-oliguric. Renal prognosis is guarded. Avoid nephrotoxic agents. Meds dosage based on GFR. Monitor for [employer] needs. 2. FEN: Hyperkalemia, improved. Metabolic acidosis, improved. Monitor lytes. 3. Acute respiratory failure with hypoxia: 2/2 b/p pneumonia. Covid test negative. Intubated, on vent. Followed by Pulmonary. 4. S/p OOH Cardiac arrest: Prolonged downtime. Followed by Cards. 5. Bladder retention: Pt has Foreman catheter now. 6. Diabetes mellitus type 2: Follow blood glucose. 7. Hypertension: Monitor BP. 8. Anemia, POA: Monitor. 9. Anoxic encephalopathy: Seen by Neuro. Family is aware of slim prognosis. 10. Facial twitching: Vimpat. Subjective: Patient was seen and examined at the bedside. Examination: General appearance: well-developed, well-nourished, appears stated age, intuba kenan, on vent, FiO2 30% HEENT: ATNC, pupils not reacting to light Neck: supple Respiratory: coarse breath sounds Cardiology: regular, S1S2, no murmur Gastrointestinal: soft, bowel sounds heard, not tender Integumentary: no rash, warm and dry Neurologic: not responding Ext: no edema : foreman catheter Subjective Date of service: 09/07/20 Principal diagnosis: Ac. hypoxemic resp failure; Cardiac arrest; AMS; AE-CHF; Hyperkalemia; FLORIDALMA Objective - Vital Signs Vital signs: Vital Signs - 12hr 09/06/20 09/06/20 09/06/20 22:16 22:27 22:30 Temperature Pulse Rate 74 70 70 Pulse Rate [ From Monitor] Respiratory 15 13 17 Rate Blood Pressure 125/45 125/45 121/40 O2 Sat by Pulse 98 99 98 Oximetry 09/06/20 09/06/20 09/06/20 22:40 22:46 23:00 Temperature Pulse Rate 68 67 67 Pulse Rate [ From Monitor] Respiratory 15 14 13 Rate Blood Pressure 121/40 120/42 121/48 O2 Sat by Pulse 99 98 98 Oximetry 09/06/20 09/06/20 09/06/20 23:16 23:30 23:40 Temperature 98.7 F Pulse Rate 68 67 Pulse Rate [ From Monitor] Respiratory 14 13 Rate Blood Pressure 118/38 118/41 O2 Sat by Pulse 97 97 Oximetry 09/06/20 09/07/20 09/07/20 23:46 00:00 00:14 Temperature Pulse Rate 68 66 67 Pulse Rate [ From Monitor] Respiratory 16 15 Rate Blood Pressure 111/41 116/40 121/41 O2 Sat by Pulse 97 99 99 Oximetry 09/07/20 09/07/20 09/07/20 00:16 00:30 00:46 Temperature Pulse Rate 66 66 66 Pulse Rate [ From Monitor] Respiratory 15 15 18 Rate Blood Pressure 121/41 118/44 120/40 O2 Sat by Pulse 97 98 98 Oximetry 09/07/20 09/07/20 09/07/20 01:00 01:15 01:30 Temperature Pulse Rate 70 74 71 Pulse Rate [ 65 From Monitor] Respiratory 20 22 17 Rate Blood Pressure 125/43 130/49 132/48 O2 Sat by Pulse 96 97 97 Oximetry 09/07/20 09/07/20 09/07/20 01:46 02:00 02:16 Temperature Pulse Rate 70 71 71 Pulse Rate [ From Monitor] Respiratory 19 18 16 Rate Blood Pressure 139/47 137/50 145/49 O2 Sat by Pulse 98 97 97 Oximetry 09/07/20 09/07/20 09/07/20 02:30 02:46 03:00 Temperature Pulse Rate 71 69 68 Pulse Rate [ From Monitor] Respiratory 14 14 19 Rate Blood Pressure 136/43 122/44 124/43 O2 Sat by Pulse 97 98 97 Oximetry 09/07/20 09/07/20 09/07/20 03:16 03:30 03:35 Temperature 98.8 F Pulse Rate 71 72 Pulse Rate [ From Monitor] Respiratory 17 17 Rate Blood Pressure 133/49 138/49 O2 Sat by Pulse 97 97 Oximetry 09/07/20 09/07/20 09/07/20 03:46 04:00 04:01 Temperature Pulse Rate 71 70 69 Pulse Rate [ From Monitor] Respiratory 17 15 Rate Blood Pressure 132/47 129/47 129/47 O2 Sat by Pulse 97 97 99 Oximetry 09/07/20 09/07/20 09/07/20 04:16 04:30 04:46 Temperature Pulse Rate 71 72 76 Pulse Rate [ From Monitor] Respiratory 15 19 17 Rate Blood Pressure 123/47 127/43 133/52 O2 Sat by Pulse 98 97 97 Oximetry 09/07/20 09/07/20 09/07/20 05:00 05:16 05:30 Temperature Pulse Rate 88 75 77 Pulse Rate [ 69 From Monitor] Respiratory 23 16 17 Rate Blood Pressure 127/43 147/56 144/59 O2 Sat by Pulse 97 97 97 Oximetry 09/07/20 09/07/20 09/07/20 05:46 06:00 06:16 Temperature Pulse Rate 75 71 66 Pulse Rate [ From Monitor] Respiratory 12 13 18 Rate Blood Pressure 140/55 140/55 67/29 O2 Sat by Pulse 97 97 97 Oximetry 09/07/20 09/07/20 09/07/20 06:26 06:30 06:45 Temperature Pulse Rate 65 69 71 Pulse Rate [ From Monitor] Respiratory 15 18 Rate Blood Pressure 89/41 120/46 122/47 O2 Sat by Pulse 96 96 Oximetry 09/07/20 09/07/20 09/07/20 07:00 07:15 07:30 Temperature Pulse Rate 72 74 73 Pulse Rate [ From Monitor] Respiratory 16 17 18 Rate Blood Pressure 132/52 142/56 135/54 O2 Sat by Pulse 97 97 96 Oximetry 09/07/20 09/07/20 09/07/20 07:46 07:54 08:00 Temperature 98.2 F Pulse Rate 69 78 68 Pulse Rate [ From Monitor] Respiratory 9 L 19 Rate Blood Pressure 143/54 143/54 128/47 O2 Sat by Pulse 97 98 96 Oximetry 09/07/20 09/07/20 09/07/20 08:16 08:30 08:45 Temperature Pulse Rate 62 62 54 L Pulse Rate [ From Monitor] Respiratory 15 19 19 Rate Blood Pressure 93/39 99/44 101/41 O2 Sat by Pulse 95 95 96 Oximetry 09/07/20 09:00 Temperature Pulse Rate 68 Pulse Rate [ From Monitor] Respiratory 17 Rate Blood Pressure 140/55 O2 Sat by Pulse 96 Oximetry - Lab 09/07/20 Unknown 09/07/20 04:00 Most recent lab results ABG pH 7.462 (7.320-7.450) H 09/01/20 12:51 ABG pCO2 36.6 mm Hg 08/31/20 04:10 ABG pO2 99.6 mm Hg (80.0-90.0) H 08/31/20 04:10 ABG HCO3 24.9 mmol/L (20.0-26.0) 08/31/20 04:10 ABG O2 Saturation 98.0 (0-100) 09/01/20 12:51 Calcium 8.8 mg/dL (8.4-10.2) 09/07/20 04:00 Phosphorus 4.60 mg/dL (2.5-4.5) H 09/01/20 09:41 Magnesium 2.60 mg/dL (1.7-2.3) H 09/06/20 Unknown Urine Creatinine 67.4 mg/dL (0.1-20.0) H 08/26/20 17:00 Urine Sodium 12 mmol/L 08/26/20 17:00 Medications & Allergies - Medications Allergies/Adverse Reactions: Allergies No Known Allergies Allergy (Verified 07/31/18 07:06) Home Medications: Home Medications Medication Instructions Recorded Confirmed Last Taken Type Albuterol Mdi (or & Nicu Only) 2 puff IH QID PRN #1 inhalation 08/07/18 09/06/20 Unknown Rx [ProAir HFA Inhaler] Sucralfate [Carafate] 1 gm PO ACHS #30 tablet 08/07/18 09/06/20 03/13/20 Rx Insulin Regular, Human [HumuLIN R] 0 unit SQ AC #1 vial 08/11/18 09/06/20 Unknown Rx Labetalol HCl [Labetalol 300mg TAB] 300 mg PO BID #60 tablet 11/11/19 09/06/20 03/14/20 Rx Furosemide [Lasix TAB] 80 mg PO DAILY #14 tablet 03/27/20 09/06/20 Unknown Rx Insulin Glargine [Lantus VIAL] 15 units SUB-Q QAM #1 vial 03/27/20 09/06/20 Unknown Rx amLODIPine 10 mg PO QDAY #30 tablet 03/27/20 09/06/20 Unknown Rx Levemir Flextouch 10 units SUB-Q DAILY 09/06/20 09/06/20 Unknown History Levothyroxine 75 mg PO DAILY 09/06/20 09/06/20 Unknown History Active Medications: Generic Name Dose Route Start Last Admin Trade Name Freq PRN Reason Stop Dose Admin Albuterol 2.5 mg 08/25/20 14:55 Albuterol 2.5 Mg/3 Ml Nebu IH Q3HRT PRN Shortness Of Breath Lipase/Protease/Amylase 1 each 08/26/20 12:15 Lipase 10,500/Protease 25,000/Amylase 43,750 (Units) Dr Gu FEEDTUBE PRN PRN For Clogged Feeding Tube Aspirin 81 mg 08/27/20 10:00 09/07/20 09:39 Aspirin 81 Mg Tab Chew PO 81 mg QDAY TERA Administration Atorvastatin Calcium 40 mg 08/26/20 22:00 09/06/20 22:06 Atorvastatin 40 Mg Tab PO 40 mg QHS TERA Administration Atropine Sulfate 0.5 mg 09/05/20 13:09 09/05/20 13:44 Atropine 0.1% (1 Mg/10 Ml) Cardiac Syringe IV 0.5 mg Q5MIN PRN Administration Bradycardia Dextrose 50 ml 08/26/20 19:18 Dextrose 50% In Water (25gm) 50 Ml Syringe IV Q30MIN PRN Hypoglycemia Protocol Famotidine 20 mg 08/28/20 10:00 09/07/20 09:38 Famotidine 20 Mg Tab PO 20 mg DAILY TERA Administration Heparin Sodium (Porcine) 5,000 unit 08/26/20 22:00 09/07/20 09:39 Heparin 5,000 Unit/1 Ml Vial SUB-Q 5,000 unit Q12HR TERA Administration Hydralazine HCl 10 mg 08/26/20 01:20 09/04/20 11:06 Hydralazine 20 Mg/1 Ml Inj IV 10 mg Q4HR PRN Administration Blood Pressure Hydralazine HCl 50 mg 09/01/20 14:00 09/07/20 06:26 Hydralazine 25 Mg Tab PO Not Given Q8HR TERA Hydrophilic Ointment 1 applic 08/25/20 11:07 08/25/20 11:57 Lip Therapy Vaseline TP 1 applic Q2HR PRN Administration Dry Lips Lacosamide 200 mg/ Sodium 120 mls @ 100 mls/hr 09/04/20 11:00 09/06/20 22:05 Chloride IV 100 mls/hr Q12H TERA Administration Levetiracetam 500 mg/ Dextrose 105 mls @ 400 mls/hr 09/04/20 11:00 09/07/20 09:46 IV 400 mls/hr Q12HR TERA Administration Valproate Sodium 750 mg/ 107.5 mls @ 100 mls/hr 09/05/20 14:00 09/07/20 06:25 Sodium Chloride IV 100 mls/hr Q8HR TERA Administration Dopamine HCl/Dextrose 800 mg in 250 mls @ 3.563 mls/hr 09/05/20 15:00 09/07/20 06:25 Intropin Drip 800 Mg/D5w 250 Ml IV 6 mcg/kg/min TITR TERA 10.688 mls/hr Administration Protocol 2 MCG/KG/MIN Midazolam HCl 100 mg/ Sodium 100 mls @ 1 mls/hr 09/06/20 14:00 09/07/20 09:37 Chloride IV 3 mg/hr TITR TERA 3 mls/hr Titration Protocol 1 MG/HR Insulin Glargine 25 units 09/01/20 22:00 09/06/20 22:06 Insulin Glargine 100 Units/Ml SUB-Q 25 units QHS TERA Administration Insulin Human Lispro 0 unit 08/27/20 12:00 09/07/20 06:27 Insulin Lispro 100 Unit/Ml SUB-Q 2 unit Q6HR TERA Administration Protocol Lorazepam 2 mg 09/03/20 15:12 09/05/20 13:41 Lorazepam 2 Mg/Ml Vial IV 2 mg Q1H PRN Administration Seizures Multi-Ingred Cream/Lotion/Oil/Oint 1 applic 08/25/20 11:07 Mineral Oil/Petrolatum, White Ophth Oint 3.5 Gm OU Q4HR PRN Dry Eye(s) Senna/Docusate Sodium 1 tab 08/25/20 22:00 09/07/20 09:40 Sennosides/Docusate Sodium 8.6/50 Mg Tab FEEDTUBE Not Given BID TERA Simple Syrup 15 ml 08/26/20 12:15 Simple Syrup 15 Ml FEEDTUBE PRN PRN Hypoglycemia Simple Syrup 30 ml 08/26/20 12:15 Simple Syrup 15 Ml FEEDTUBE PRN PRN Hypoglycemia Sodium Bicarbonate 325 mg 08/26/20 12:15 Sodium Bicarbonate 325 Mg Tab FEEDTUBE PRN PRN For Clogged Feeding Tube Sodium Chloride 10 ml 08/25/20 22:00 09/07/20 09:40 Sodium Chloride 0.9% 10 Ml Flush Syringe IV 10 ml BID TERA Administration Sodium Chloride 10 ml 08/25/20 14:55 08/29/20 04:05 Sodium Chloride 0.9% 10 Ml Flush Syringe IV 10 ml PRN PRN Administration LINE FLUSH Tamsulosin HCl 0.8 mg 09/06/20 10:00 09/07/20 09:38 Tamsulosin 0.4 Mg Cap PO 0.8 mg QDAY TERA Administration
[2020-09-07] MEDS: LACOSAMIDE 200 MG in SODIUM CHLORIDE 0.9% 100 ML IV SCH ×2 (10:51→22:08)
--- NOTE | 2020-09-07 11:20 | Progress Note ---
Assessment and Plan Assessment and Plan Assessment and plan: This is a 75-year-old female with CHF, OHS DM, CKD, morbid obesity, GERD, hypertension, chronic respiratory failure admitted s/p cardiac arrest #NEURO -Anoxic encephalopathy -08/[address] head shows no CT evidence of acute abnormality -08/28 MRI brain without contrast shows abnormal diffusion and FLAIR signal abnormality which may suggest hypoxic/ischemic brain injury, -08/30 EEG- remarkable for diffuse slowing 3-4 Hz no clear epileptiform discharges is noted - Today she is with facial twitching left>Right face mainly Seizure can not be excluded --- Repeat EEG is remarkable for recurrent right frontal rubio and a run for over 200 sec. of generalized 3 hz rhythmic activity associated with the left facial twitching with focal seizure is most likley is present ... -repeat EEG yesterday is remarkable for diffuse slowing and BIPLED is noted intermittently , no clear generalized seizure is noted during facial twitching , advance versed resulted in improvment in facial twitching , back ground is in 2- 3 Hz slowing -Keppra decrease to 500 mg BID due to elevated creatinine ,give IV, vimpat is to increased to 200 mg IV bid will add valproic acid 750 mg IV tid and or in [place] tube , Ativan as needed for facial twitching -Seizure/aspiration precautions -Prognosis over all is poor -opens eyes spontaneously ; pupils reactive to light; neg threat; pos cough; withdrawal on right to deep pain rare; no response to deep pain on left -Pt has 8 living children- updated on plan of care Case Management following if decision is not made by family in 48 hours we will order trach/Peg Friday (09/04) #CV -NSR -S/p cardiac arrest with prolonged down time- -ddimer elevated on admit following cardiac arrest -Cardiology has seen and signed off- call if needed -08/25 echocardiogram shows LVEF 40 to 45%, LV normal size, LV systolic function mildly decreased, mild diastolic dysfunction, mildly dilated right ventricle, - pulmonary hypertension RVSP 45 mmHg -asa and statin -Hypertension -home norvasc , hydral added -Blood pressure monitoring per protocol -IV hydralazine as needed #RESP Acute hypoxic respiratory failure -Chronic respiratory insufficiency at home with 3 L oxygen via nasal cannula -remains intubated and ventilated on cpap this AM -Wean as tolerated; trend pulse ox -CCM following -VAP bundle -nebs as needed Multifocal pneumonia/ ? aspiration event -08/25 CXR shows worsening patchy bilateral pulmonary opacities -08/25 CTA chest shows no evidence of pulmonary embolism, bilateral pulmonary processes with large bilateral pleural effusions, pneumonia is a concern, pulmonary edema could be a similar appearance versus pulmonary edema # FLORIDALMA on CKD secondary to patient under nephropathy -trend and replace electrolytes as needed -Trend Cr #Urinary retention -Foreman replaced 08/31 for urinary retention #HEME Anemia -Admit H/H 8.6/27.8 #VTE prophylaxis with SCD and SQH #ID -Pneumonia -covid neg on admit #ENDO Diabetes mellitus DVT/GI prophylaxis: SCDs to bilateral lower extremities heparin subcu, PPI Disposition: ICU, need to discuss with family plan of care Lines: PIV; foreman pt. is evaluated in ICU time spent evaluating chart and lab result as well as test and exam pt. is >40 minutes Subjective Date of service: 09/07/20 Principal diagnosis: Ac. hypoxemic resp failure; Cardiac arrest; AMS; AE-CHF; Hyperkalemia; FLORIDALMA Interval history: status is unchanged not following command on vent , vital stable on Dopamin off Bet skylar , on 3 mc versed, not responding to verbal or sternal rub. she is yawning and slightly move spontaneously left leg increased facial twitching with tappering down of versed family requested peg tube and trachestomy done EEG yesterday is noted valproic acid level is pending Objective - Vital Sign Vital Signs - 12hr 09/06/20 09/06/20 09/06/20 23:16 23:30 23:40 Temperature 98.7 F Pulse Rate 68 67 Pulse Rate [ From Monitor] Respiratory 14 13 Rate Blood Pressure 118/38 118/41 O2 Sat by Pulse 97 97 Oximetry 09/06/20 09/07/20 09/07/20 23:46 00:00 00:14 Temperature Pulse Rate 68 66 67 Pulse Rate [ From Monitor] Respiratory 16 15 Rate Blood Pressure 111/41 116/40 121/41 O2 Sat by Pulse 97 99 99 Oximetry 09/07/20 09/07/20 09/07/20 00:16 00:30 00:46 Temperature Pulse Rate 66 66 66 Pulse Rate [ From Monitor] Respiratory 15 15 18 Rate Blood Pressure 121/41 118/44 120/40 O2 Sat by Pulse 97 98 98 Oximetry 09/07/20 09/07/20 09/07/20 01:00 01:15 01:30 Temperature Pulse Rate 70 74 71 Pulse Rate [ 65 From Monitor] Respiratory 20 22 17 Rate Blood Pressure 125/43 130/49 132/48 O2 Sat by Pulse 96 97 97 Oximetry 09/07/20 09/07/20 09/07/20 01:46 02:00 02:16 Temperature Pulse Rate 70 71 71 Pulse Rate [ From Monitor] Respiratory 19 18 16 Rate Blood Pressure 139/47 137/50 145/49 O2 Sat by Pulse 98 97 97 Oximetry 09/07/20 09/07/20 09/07/20 02:30 02:46 03:00 Temperature Pulse Rate 71 69 68 Pulse Rate [ From Monitor] Respiratory 14 14 19 Rate Blood Pressure 136/43 122/44 124/43 O2 Sat by Pulse 97 98 97 Oximetry 09/07/20 09/07/20 09/07/20 03:16 03:30 03:35 Temperature 98.8 F Pulse Rate 71 72 Pulse Rate [ From Monitor] Respiratory 17 17 Rate Blood Pressure 133/49 138/49 O2 Sat by Pulse 97 97 Oximetry 09/07/20 09/07/20 09/07/20 03:46 04:00 04:01 Temperature Pulse Rate 71 70 69 Pulse Rate [ From Monitor] Respiratory 17 15 Rate Blood Pressure 132/47 129/47 129/47 O2 Sat by Pulse 97 97 99 Oximetry 09/07/20 09/07/20 09/07/20 04:16 04:30 04:46 Temperature Pulse Rate 71 72 76 Pulse Rate [ From Monitor] Respiratory 15 19 17 Rate Blood Pressure 123/47 127/43 133/52 O2 Sat by Pulse 98 97 97 Oximetry 09/07/20 09/07/20 09/07/20 05:00 05:16 05:30 Temperature Pulse Rate 88 75 77 Pulse Rate [ 69 From Monitor] Respiratory 23 16 17 Rate Blood Pressure 127/43 147/56 144/59 O2 Sat by Pulse 97 97 97 Oximetry 09/07/20 09/07/20 09/07/20 05:46 06:00 06:16 Temperature Pulse Rate 75 71 66 Pulse Rate [ From Monitor] Respiratory 12 13 18 Rate Blood Pressure 140/55 140/55 67/29 O2 Sat by Pulse 97 97 97 Oximetry 09/07/20 09/07/20 09/07/20 06:26 06:30 06:45 Temperature Pulse Rate 65 69 71 Pulse Rate [ From Monitor] Respiratory 15 18 Rate Blood Pressure 89/41 120/46 122/47 O2 Sat by Pulse 96 96 Oximetry 09/07/20 09/07/20 09/07/20 07:00 07:15 07:30 Temperature Pulse Rate 72 74 73 Pulse Rate [ From Monitor] Respiratory 16 17 18 Rate Blood Pressure 132/52 142/56 135/54 O2 Sat by Pulse 97 97 96 Oximetry 09/07/20 09/07/20 09/07/20 07:46 07:54 08:00 Temperature 98.2 F Pulse Rate 69 78 68 Pulse Rate [ From Monitor] Respiratory 9 L 19 Rate Blood Pressure 143/54 143/54 128/47 O2 Sat by Pulse 97 98 96 Oximetry 09/07/20 09/07/20 09/07/20 08:16 08:30 08:45 Temperature Pulse Rate 62 62 54 L Pulse Rate [ From Monitor] Respiratory 15 19 19 Rate Blood Pressure 93/39 99/44 101/41 O2 Sat by Pulse 95 95 96 Oximetry 09/07/20 09:00 Temperature Pulse Rate 68 Pulse Rate [ From Monitor] Respiratory 17 Rate Blood Pressure 140/55 O2 Sat by Pulse 96 Oximetry - General Apperance Constitutional: comfortable - EENT EENT: PERRL, mucous membranes moist - Respiratory Respiratory: chest non-tender, lungs clear, rhonchi - Cardiovascular Cardiovascular: normal S1, normal S2 Extremities: no peripheral edema bilat, no clubbing, cyanosis - Gastrointestinal Gastrointestinal: normoactive bowel sounds, absent bowel sounds - Integumentary Integumentary: normal - Neurologic Cranial nerve examination: other (pupils slightly reactive, EOM slightly present , No corneal, yawn and or slight preathing effort ) Detailed motor examination: other (rare spontaneous movment left foot ? reflex or real no respond to stimuli) - Laboratory Findings CBC and BMP: 09/07/20 Unknown 09/07/20 04:00 Abnormal Lab Findings: Abnormal Labs 08/25/20 08/25/20 08/25/20 11:14 11:17 11:23 WBC 11.5 H RBC 3.22 L Hgb 8.6 L Hct 27.6 L MCH 27 L MCHC RDW 15.6 H Lymph % (Auto) Lymph # (Auto) Eos # (Auto) Seg Neutrophils % Seg Neuts % (Manual) 89.0 H Lymphocytes % (Manual) 5.0 L Seg Neutrophils # Seg Neutrophils # Man 10.2 H Lymphocytes # (Manual) 0.6 L D-Dimer ABG pH 7.290 L POC ABG pO2 161.1 H ABG pO2 ABG HCO3 ABG Hemoglobin 8.9 L ABG Oxyhemoglobin 98.6 H ABG Sodium 135.2 L ABG Potassium 5.9 H ABG Glucose 210 H Oxyhemoglobin Carboxyhemoglobin 0.4 L Sodium Potassium Chloride Carbon Dioxide BUN Creatinine Glucose POC Glucose Lactic Acid Calcium Phosphorus Magnesium AST ALT Troponin T C-Reactive Protein Total Protein Albumin Arterial Blood Glucose 210 H Arterial Blood Ionized Calcium 4.4 L Urine WBC (Auto) 31.0 H Urine Creatinine 08/25/20 08/25/20 08/25/20 11:23 11:23 11:23 WBC RBC Hgb Hct MCH MCHC RDW Lymph % (Auto) Lymph # (Auto) Eos # (Auto) Seg Neutrophils % Seg Neuts % (Manual) Lymphocytes % (Manual) Seg Neutrophils # Seg Neutrophils # Man Lymphocytes # (Manual) D-Dimer > 46511 H ABG pH POC ABG pO2 ABG pO2 ABG HCO3 ABG Hemoglobin ABG Oxyhemoglobin ABG Sodium ABG Potassium ABG Glucose Oxyhemoglobin Carboxyhemoglobin Sodium Potassium 6.4 H* Chloride Carbon Dioxide 21 L BUN 52 H Creatinine 3.5 H Glucose 194 H POC Glucose Lactic Acid 3.30 H* Calcium 8.1 L Phosphorus Magnesium AST 103 H ALT 77 H Troponin T 0.057 H C-Reactive Protein Total Protein 5.8 L Albumin 3.4 L Arterial Blood Glucose Arterial Blood Ionized Calcium Urine WBC (Auto) Urine Creatinine 08/25/20 08/25/20 08/25/20 13:51 15:45 20:34 WBC RBC Hgb Hct MCH MCHC RDW Lymph % (Auto) Lymph # (Auto) Eos # (Auto) Seg Neutrophils % Seg Neuts % (Manual) Lymphocytes % (Manual) Seg Neutrophils # Seg Neutrophils # Man Lymphocytes # (Manual) D-Dimer ABG pH POC ABG pO2 66.3 L ABG pO2 ABG HCO3 ABG Hemoglobin 9.1 L ABG Oxyhemoglobin 92.5 L ABG Sodium ABG Potassium ABG Glucose 225 H Oxyhemoglobin Carboxyhemoglobin Sodium Potassium Chloride Carbon Dioxide BUN Creatinine Glucose POC Glucose 188 H 233 H Lactic Acid Calcium Phosphorus Magnesium AST ALT Troponin T C-Reactive Protein Total Protein Albumin Arterial Blood Glucose 225 H Arterial Blood Ionized Calcium 4.4 L Urine WBC (Auto) Urine Creatinine 08/26/20 08/26/20 08/26/20 04:14 05:04 05:04 WBC 17.9 H RBC 3.05 L Hgb 8.3 L Hct 25.6 L MCH 27 L MCHC RDW 15.3 H Lymph % (Auto) Lymph # (Auto) Eos # (Auto) Seg Neutrophils % Seg Neuts % (Manual) 96.0 H Lymphocytes % (Manual) 1.0 L Seg Neutrophils # Seg Neutrophils # Man 17.2 H Lymphocytes # (Manual) 0.2 L D-Dimer ABG pH POC ABG pO2 131.3 H ABG pO2 ABG HCO3 ABG Hemoglobin 8.6 L ABG Oxyhemoglobin 98.2 H ABG Sodium ABG Potassium ABG Glucose 182 H Oxyhemoglobin Carboxyhemoglobin 0.2 L Sodium Potassium Chloride Carbon Dioxide BUN 56 H Creatinine 3.4 H Glucose 187 H POC Glucose Lactic Acid Calcium 8.3 L Phosphorus Magnesium AST 54 H ALT 57 H Troponin T C-Reactive Protein Total Protein 5.4 L Albumin 2.9 L Arterial Blood Glucose 182 H Arterial Blood Ionized Calcium 4.3 L Urine WBC (Auto) Urine Creatinine 08/26/20 08/26/20 08/26/20 05:40 07:36 11:54 WBC RBC Hgb Hct MCH MCHC RDW Lymph % (Auto) Lymph # (Auto) Eos # (Auto) Seg Neutrophils % Seg Neuts % (Manual) Lymphocytes % (Manual) Seg Neutrophils # Seg Neutrophils # Man Lymphocytes # (Manual) D-Dimer ABG pH POC ABG pO2 ABG pO2 ABG HCO3 ABG Hemoglobin ABG Oxyhemoglobin ABG Sodium ABG Potassium ABG Glucose Oxyhemoglobin Carboxyhemoglobin Sodium Potassium Chloride Carbon Dioxide BUN Creatinine Glucose POC Glucose 179 H 171 H 190 H Lactic Acid Calcium Phosphorus Magnesium AST ALT Troponin T C-Reactive Protein Total Protein Albumin Arterial Blood Glucose Arterial Blood Ionized Calcium Urine WBC (Auto) Urine Creatinine 08/26/20 08/26/20 08/26/20 15:14 17:00 18:50 WBC RBC Hgb Hct MCH MCHC RDW Lymph % (Auto) Lymph # (Auto) Eos # (Auto) Seg Neutrophils % Seg Neuts % (Manual) Lymphocytes % (Manual) Seg Neutrophils # Seg Neutrophils # Man Lymphocytes # (Manual) D-Dimer ABG pH POC ABG pO2 ABG pO2 ABG HCO3 ABG Hemoglobin ABG Oxyhemoglobin ABG Sodium ABG Potassium ABG Glucose Oxyhemoglobin Carboxyhemoglobin Sodium Potassium Chloride Carbon Dioxide BUN Creatinine Glucose POC Glucose 158 H Lactic Acid Calcium Phosphorus Magnesium AST ALT Troponin T C-Reactive Protein 7.80 H Total Protein Albumin Arterial Blood Glucose Arterial Blood Ionized Calcium Urine WBC (Auto) Urine Creatinine 67.4 H 08/26/20 08/27/20 08/27/20 22:01 04:10 05:12 WBC RBC Hgb Hct MCH MCHC RDW Lymph % (Auto) Lymph # (Auto) Eos # (Auto) Seg Neutrophils % Seg Neuts % (Manual) Lymphocytes % (Manual) Seg Neutrophils # Seg Neutrophils # Man Lymphocytes # (Manual) D-Dimer ABG pH 7.454 H POC ABG pO2 74.9 L ABG pO2 ABG HCO3 ABG Hemoglobin 7.9 L ABG Oxyhemoglobin ABG Sodium ABG Potassium ABG Glucose 117 H Oxyhemoglobin Carboxyhemoglobin Sodium Potassium Chloride Carbon Dioxide BUN Creatinine Glucose POC Glucose 122 H 117 H Lactic Acid Calcium Phosphorus Magnesium AST ALT Troponin T C-Reactive Protein Total Protein Albumin Arterial Blood Glucose 117 H Arterial Blood Ionized Calcium 4.4 L Urine WBC (Auto) Urine Creatinine 08/27/20 08/27/20 08/27/20 07:24 07:24 11:08 WBC 12.7 H RBC 2.92 L Hgb 8.1 L Hct 24.4 L MCH MCHC RDW 15.4 H Lymph % (Auto) 5.9 L Lymph # (Auto) 0.8 L Eos # (Auto) Seg Neutrophils % 86.9 H Seg Neuts % (Manual) Lymphocytes % (Manual) Seg Neutrophils # 11.0 H Seg Neutrophils # Man Lymphocytes # (Manual) D-Dimer ABG pH POC ABG pO2 ABG pO2 ABG HCO3 ABG Hemoglobin ABG Oxyhemoglobin ABG Sodium ABG Potassium ABG Glucose Oxyhemoglobin Carboxyhemoglobin Sodium Potassium Chloride Carbon Dioxide BUN 60 H Creatinine 3.6 H Glucose 135 H POC Glucose 139 H Lactic Acid Calcium Phosphorus Magnesium AST ALT Troponin T C-Reactive Protein Total Protein 5.3 L Albumin 2.6 L Arterial Blood Glucose Arterial Blood Ionized Calcium Urine WBC (Auto) Urine Creatinine 06/08/27/20 08/27/20 11:19 17:31 23:25 WBC RBC Hgb Hct MCH MCHC RDW Lymph % (Auto) Lymph # (Auto) Eos # (Auto) Seg Neutrophils % Seg Neuts % (Manual) Lymphocytes % (Manual) Seg Neutrophils # Seg Neutrophils # Man Lymphocytes # (Manual) D-Dimer ABG pH POC ABG pO2 ABG pO2 ABG HCO3 ABG Hemoglobin ABG Oxyhemoglobin ABG Sodium ABG Potassium ABG Glucose Oxyhemoglobin Carboxyhemoglobin Sodium Potassium Chloride Carbon Dioxide BUN Creatinine Glucose POC Glucose 143 H 140 H 123 H Lactic Acid Calcium Phosphorus Magnesium AST ALT Troponin T C-Reactive Protein Total Protein Albumin Arterial Blood Glucose Arterial Blood Ionized Calcium Urine WBC (Auto) Urine Creatinine 08/28/20 08/28/20 08/28/20 03:50 04:19 04:19 WBC RBC 2.80 L Hgb 7.8 L Hct 23.6 L MCH MCHC RDW 15.8 H Lymph % (Auto) Lymph # (Auto) Eos # (Auto) Seg Neutrophils % Seg Neuts % (Manual) Lymphocytes % (Manual) Seg Neutrophils # Seg Neutrophils # Man Lymphocytes # (Manual) D-Dimer ABG pH 7.329 L POC ABG pO2 ABG pO2 76.7 L ABG HCO3 27.0 H ABG Hemoglobin 7.5 L ABG Oxyhemoglobin ABG Sodium ABG Potassium ABG Glucose Oxyhemoglobin 93.6 L Carboxyhemoglobin Sodium 135 L Potassium Chloride Carbon Dioxide BUN 64 H Creatinine 3.8 H Glucose 143 H POC Glucose Lactic Acid Calcium 8.0 L Phosphorus Magnesium AST ALT Troponin T C-Reactive Protein Total Protein 4.8 L Albumin 2.4 L Arterial Blood Glucose Arterial Blood Ionized Calcium Urine WBC (Auto) Urine Creatinine 08/28/20 08/28/20 08/28/20 05:35 11:22 17:18 WBC RBC Hgb Hct MCH MCHC RDW Lymph % (Auto) Lymph # (Auto) Eos # (Auto) Seg Neutrophils % Seg Neuts % (Manual) Lymphocytes % (Manual) Seg Neutrophils # Seg Neutrophils # Man Lymphocytes # (Manual) D-Dimer ABG pH POC ABG pO2 ABG pO2 ABG HCO3 ABG Hemoglobin ABG Oxyhemoglobin ABG Sodium ABG Potassium ABG Glucose Oxyhemoglobin Carboxyhemoglobin Sodium Potassium Chloride Carbon Dioxide BUN Creatinine Glucose POC Glucose 147 H 182 H 216 H Lactic Acid Calcium Phosphorus Magnesium AST ALT Troponin T C-Reactive Protein Total Protein Albumin Arterial Blood Glucose Arterial Blood Ionized Calcium Urine WBC (Auto) Urine Creatinine 08/28/20 08/28/20 08/29/20 21:04 23:20 04:32 WBC RBC Hgb Hct MCH MCHC RDW Lymph % (Auto) Lymph # (Auto) Eos # (Auto) Seg Neutrophils % Seg Neuts % (Manual) Lymphocytes % (Manual) Seg Neutrophils # Seg Neutrophils # Man Lymphocytes # (Manual) D-Dimer ABG pH POC ABG pO2 ABG pO2 ABG HCO3 ABG Hemoglobin ABG Oxyhemoglobin ABG Sodium ABG Potassium ABG Glucose Oxyhemoglobin Carboxyhemoglobin Sodium 135 L Potassium Chloride 96.0 L Carbon Dioxide BUN 67 H Creatinine 3.8 H Glucose 200 H POC Glucose 204 H 242 H Lactic Acid Calcium 8.2 L Phosphorus Magnesium AST ALT Troponin T C-Reactive Protein Total Protein Albumin Arterial Blood Glucose Arterial Blood Ionized Calcium Urine WBC (Auto) Urine Creatinine 08/29/20 08/29/20 08/29/20 04:32 04:50 04:59 WBC RBC 3.25 L Hgb 9.0 L Hct 27.0 L MCH MCHC RDW 16.1 H Lymph % (Auto) Lymph # (Auto) Eos # (Auto) Seg Neutrophils % Seg Neuts % (Manual) Lymphocytes % (Manual) Seg Neutrophils # Seg Neutrophils # Man Lymphocytes # (Manual) D-Dimer ABG pH POC ABG pO2 ABG pO2 ABG HCO3 ABG Hemoglobin 8.8 L ABG Oxyhemoglobin ABG Sodium ABG Potassium ABG Glucose Oxyhemoglobin Carboxyhemoglobin Sodium Potassium Chloride Carbon Dioxide BUN Creatinine Glucose POC Glucose 201 H Lactic Acid Calcium Phosphorus Magnesium AST ALT Troponin T C-Reactive Protein Total Protein Albumin Arterial Blood Glucose Arterial Blood Ionized Calcium Urine WBC (Auto) Urine Creatinine 08/29/20 08/29/20 08/29/20 11:10 11:28 17:50 WBC RBC Hgb Hct MCH MCHC RDW Lymph % (Auto) Lymph # (Auto) Eos # (Auto) Seg Neutrophils % Seg Neuts % (Manual) Lymphocytes % (Manual) Seg Neutrophils # Seg Neutrophils # Man Lymphocytes # (Manual) D-Dimer ABG pH POC ABG pO2 ABG pO2 78.7 L ABG HCO3 26.6 H ABG Hemoglobin 9.8 L ABG Oxyhemoglobin ABG Sodium ABG Potassium ABG Glucose Oxyhemoglobin 94.3 L Carboxyhemoglobin Sodium Potassium Chloride Carbon Dioxide BUN Creatinine Glucose POC Glucose 219 H 203 H Lactic Acid Calcium Phosphorus Magnesium AST ALT Troponin T C-Reactive Protein Total Protein Albumin Arterial Blood Glucose Arterial Blood Ionized Calcium Urine WBC (Auto) Urine Creatinine 08/29/20 08/29/20 08/30/20 21:31 23:28 04:14 WBC RBC Hgb Hct MCH MCHC RDW Lymph % (Auto) Lymph # (Auto) Eos # (Auto) Seg Neutrophils % Seg Neuts % (Manual) Lymphocytes % (Manual) Seg Neutrophils # Seg Neutrophils # Man Lymphocytes # (Manual) D-Dimer ABG pH POC ABG pO2 ABG pO2 ABG HCO3 ABG Hemoglobin ABG Oxyhemoglobin ABG Sodium ABG Potassium ABG Glucose Oxyhemoglobin Carboxyhemoglobin Sodium 132 L Potassium Chloride 94.8 L Carbon Dioxide BUN 68 H Creatinine 3.7 H Glucose 214 H POC Glucose 204 H 215 H Lactic Acid Calcium Phosphorus Magnesium AST ALT Troponin T C-Reactive Protein Total Protein Albumin Arterial Blood Glucose Arterial Blood Ionized Calcium Urine WBC (Auto) Urine Creatinine 08/30/20 08/30/20 08/30/20 05:10 11:33 17:32 WBC RBC Hgb Hct MCH MCHC RDW Lymph % (Auto) Lymph # (Auto) Eos # (Auto) Seg Neutrophils % Seg Neuts % (Manual) Lymphocytes % (Manual) Seg Neutrophils # Seg Neutrophils # Man Lymphocytes # (Manual) D-Dimer ABG pH POC ABG pO2 ABG pO2 ABG HCO3 ABG Hemoglobin ABG Oxyhemoglobin ABG Sodium ABG Potassium ABG Glucose Oxyhemoglobin Carboxyhemoglobin Sodium Potassium Chloride Carbon Dioxide BUN Creatinine Glucose POC Glucose 210 H 194 H 202 H Lactic Acid Calcium Phosphorus Magnesium AST ALT Troponin T C-Reactive Protein Total Protein Albumin Arterial Blood Glucose Arterial Blood Ionized Calcium Urine WBC (Auto) Urine Creatinine 08/30/20 08/30/20 08/30/20 21:39 23:21 Unknown WBC RBC Hgb Hct MCH MCHC RDW Lymph % (Auto) Lymph # (Auto) Eos # (Auto) Seg Neutrophils % Seg Neuts % (Manual) Lymphocytes % (Manual) Seg Neutrophils # Seg Neutrophils # Man Lymphocytes # (Manual) D-Dimer ABG pH POC ABG pO2 ABG pO2 99.0 H ABG HCO3 ABG Hemoglobin 9.8 L ABG Oxyhemoglobin ABG Sodium ABG Potassium ABG Glucose Oxyhemoglobin Carboxyhemoglobin Sodium Potassium Chloride Carbon Dioxide BUN Creatinine Glucose POC Glucose 199 H 209 H Lactic Acid Calcium Phosphorus Magnesium AST ALT Troponin T C-Reactive Protein Total Protein Albumin Arterial Blood Glucose Arterial Blood Ionized Calcium Urine WBC (Auto) Urine Creatinine 08/31/20 08/31/20 08/31/20 04:10 05:19 10:57 WBC RBC Hgb Hct MCH MCHC RDW Lymph % (Auto) Lymph # (Auto) Eos # (Auto) Seg Neutrophils % Seg Neuts % (Manual) Lymphocytes % (Manual) Seg Neutrophils # Seg Neutrophils # Man Lymphocytes # (Manual) D-Dimer ABG pH 7.451 H POC ABG pO2 ABG pO2 99.6 H ABG HCO3 ABG Hemoglobin 8.4 L ABG Oxyhemoglobin ABG Sodium ABG Potassium ABG Glucose Oxyhemoglobin Carboxyhemoglobin Sodium 133 L Potassium Chloride 96.4 L Carbon Dioxide BUN 74 H Creatinine 3.8 H Glucose 201 H POC Glucose 182 H Lactic Acid Calcium 7.6 L Phosphorus Magnesium AST ALT Troponin T C-Reactive Protein Total Protein Albumin Arterial Blood Glucose Arterial Blood Ionized Calcium Urine WBC (Auto) Urine Creatinine 08/31/20 08/31/20 08/31/20 10:57 12:32 17:15 WBC 11.4 H RBC 3.24 L Hgb 8.5 L Hct 26.6 L MCH 26 L MCHC RDW 15.6 H Lymph % (Auto) Lymph # (Auto) Eos # (Auto) Seg Neutrophils % Seg Neuts % (Manual) Lymphocytes % (Manual) Seg Neutrophils # Seg Neutrophils # Man Lymphocytes # (Manual) D-Dimer ABG pH POC ABG pO2 ABG pO2 ABG HCO3 ABG Hemoglobin ABG Oxyhemoglobin ABG Sodium ABG Potassium ABG Glucose Oxyhemoglobin Carboxyhemoglobin Sodium Potassium Chloride Carbon Dioxide BUN Creatinine Glucose POC Glucose 217 H 203 H Lactic Acid Calcium Phosphorus Magnesium AST ALT Troponin T C-Reactive Protein Total Protein Albumin Arterial Blood Glucose Arterial Blood Ionized Calcium Urine WBC (Auto) Urine Creatinine 09/01/20 09/01/20 09/01/20 00:06 05:05 09:41 WBC RBC Hgb Hct MCH MCHC RDW Lymph % (Auto) Lymph # (Auto) Eos # (Auto) Seg Neutrophils % Seg Neuts % (Manual) Lymphocytes % (Manual) Seg Neutrophils # Seg Neutrophils # Man Lymphocytes # (Manual) D-Dimer ABG pH POC ABG pO2 ABG pO2 ABG HCO3 ABG Hemoglobin ABG Oxyhemoglobin ABG Sodium ABG Potassium ABG Glucose Oxyhemoglobin Carboxyhemoglobin Sodium 134 L Potassium Chloride 95.2 L Carbon Dioxide BUN 81 H Creatinine 3.7 H Glucose 201 H POC Glucose 223 H 225 H Lactic Acid Calcium Phosphorus 4.60 H Magnesium 2.40 H AST ALT Troponin T C-Reactive Protein Total Protein Albumin Arterial Blood Glucose Arterial Blood Ionized Calcium Urine WBC (Auto) Urine Creatinine 09/01/20 09/01/20 09/01/20 09:41 12:51 13:08 WBC 11.5 H RBC 3.58 L Hgb 9.2 L Hct 29.7 L MCH 26 L MCHC RDW 16.0 H Lymph % (Auto) Lymph # (Auto) Eos # (Auto) Seg Neutrophils % Seg Neuts % (Manual) Lymphocytes % (Manual) Seg Neutrophils # Seg Neutrophils # Man Lymphocytes # (Manual) D-Dimer ABG pH 7.462 H POC ABG pO2 ABG pO2 ABG HCO3 ABG Hemoglobin 9.5 L ABG Oxyhemoglobin ABG Sodium 130.4 L ABG Potassium ABG Glucose 208 H Oxyhemoglobin Carboxyhemoglobin 0.4 L Sodium Potassium Chloride Carbon Dioxide BUN Creatinine Glucose POC Glucose 182 H Lactic Acid Calcium Phosphorus Magnesium AST ALT Troponin T C-Reactive Protein Total Protein Albumin Arterial Blood Glucose 208 H Arterial Blood Ionized Calcium 4.5 L Urine WBC (Auto) Urine Creatinine 09/01/20 09/01/20 09/02/20 18:34 23:14 05:22 WBC RBC Hgb Hct MCH MCHC RDW Lymph % (Auto) Lymph # (Auto) Eos # (Auto) Seg Neutrophils % Seg Neuts % (Manual) Lymphocytes % (Manual) Seg Neutrophils # Seg Neutrophils # Man Lymphocytes # (Manual) D-Dimer ABG pH POC ABG pO2 ABG pO2 ABG HCO3 ABG Hemoglobin ABG Oxyhemoglobin ABG Sodium ABG Potassium ABG Glucose Oxyhemoglobin Carboxyhemoglobin Sodium Potassium Chloride Carbon Dioxide BUN Creatinine Glucose POC Glucose 183 H 181 H 178 H Lactic Acid Calcium Phosphorus Magnesium AST ALT Troponin T C-Reactive Protein Total Protein Albumin Arterial Blood Glucose Arterial Blood Ionized Calcium Urine WBC (Auto) Urine Creatinine 09/02/20 09/02/20 09/02/20 07:35 11:16 17:39 WBC RBC Hgb Hct MCH MCHC RDW Lymph % (Auto) Lymph # (Auto) Eos # (Auto) Seg Neutrophils % Seg Neuts % (Manual) Lymphocytes % (Manual) Seg Neutrophils # Seg Neutrophils # Man Lymphocytes # (Manual) D-Dimer ABG pH POC ABG pO2 ABG pO2 ABG HCO3 ABG Hemoglobin ABG Oxyhemoglobin ABG Sodium ABG Potassium ABG Glucose Oxyhemoglobin Carboxyhemoglobin Sodium 135 L Potassium Chloride 96.0 L Carbon Dioxide BUN 88 H Creatinine 3.7 H Glucose 187 H POC Glucose 228 H 165 H Lactic Acid Calcium Phosphorus Magnesium AST ALT Troponin T C-Reactive Protein Total Protein Albumin Arterial Blood Glucose Arterial Blood Ionized Calcium Urine WBC (Auto) Urine Creatinine 09/02/20 09/03/20 09/03/20 23:24 05:35 08:31 WBC 18.5 H RBC 2.80 L Hgb 7.8 L Hct 22.7 L D MCH MCHC 35 H RDW 15.3 H Lymph % (Auto) Lymph # (Auto) Eos # (Auto) Seg Neutrophils % Seg Neuts % (Manual) Lymphocytes % (Manual) Seg Neutrophils # Seg Neutrophils # Man Lymphocytes # (Manual) D-Dimer ABG pH POC ABG pO2 ABG pO2 ABG HCO3 ABG Hemoglobin ABG Oxyhemoglobin ABG Sodium ABG Potassium ABG Glucose Oxyhemoglobin Carboxyhemoglobin Sodium Potassium Chloride Carbon Dioxide BUN Creatinine Glucose POC Glucose 167 H 180 H Lactic Acid Calcium Phosphorus Magnesium AST ALT Troponin T C-Reactive Protein Total Protein Albumin Arterial Blood Glucose Arterial Blood Ionized Calcium Urine WBC (Auto) Urine Creatinine 09/03/20 09/03/20 09/03/20 08:31 12:02 17:05 WBC RBC Hgb Hct MCH MCHC RDW Lymph % (Auto) Lymph # (Auto) Eos # (Auto) Seg Neutrophils % Seg Neuts % (Manual) Lymphocytes % (Manual) Seg Neutrophils # Seg Neutrophils # Man Lymphocytes # (Manual) D-Dimer ABG pH POC ABG pO2 ABG pO2 ABG HCO3 ABG Hemoglobin ABG Oxyhemoglobin ABG Sodium ABG Potassium ABG Glucose Oxyhemoglobin Carboxyhemoglobin Sodium 134 L Potassium Chloride 96.6 L Carbon Dioxide BUN 96 H Creatinine 3.7 H Glucose 190 H POC Glucose 156 H 150 H Lactic Acid Calcium 8.1 L Phosphorus Magnesium AST ALT Troponin T C-Reactive Protein Total Protein Albumin Arterial Blood Glucose Arterial Blood Ionized Calcium Urine WBC (Auto) Urine Creatinine 09/03/20 09/04/20 09/04/20 23:31 05:23 09:49 WBC RBC Hgb Hct MCH MCHC RDW Lymph % (Auto) Lymph # (Auto) Eos # (Auto) Seg Neutrophils % Seg Neuts % (Manual) Lymphocytes % (Manual) Seg Neutrophils # Seg Neutrophils # Man Lymphocytes # (Manual) D-Dimer ABG pH POC ABG pO2 ABG pO2 ABG HCO3 ABG Hemoglobin ABG Oxyhemoglobin ABG Sodium ABG Potassium ABG Glucose Oxyhemoglobin Carboxyhemoglobin Sodium Potassium Chloride 97.9 L Carbon Dioxide BUN 98 H Creatinine 4.0 H Glucose 171 H POC Glucose 143 H 165 H Lactic Acid Calcium Phosphorus Magnesium AST ALT Troponin T C-Reactive Protein Total Protein Albumin Arterial Blood Glucose Arterial Blood Ionized Calcium Urine WBC (Auto) Urine Creatinine 09/04/20 09/04/20 09/04/20 12:05 17:46 21:25 WBC RBC Hgb Hct MCH MCHC RDW Lymph % (Auto) Lymph # (Auto) Eos # (Auto) Seg Neutrophils % Seg Neuts % (Manual) Lymphocytes % (Manual) Seg Neutrophils # Seg Neutrophils # Man Lymphocytes # (Manual) D-Dimer ABG pH POC ABG pO2 ABG pO2 ABG HCO3 ABG Hemoglobin ABG Oxyhemoglobin ABG Sodium ABG Potassium ABG Glucose Oxyhemoglobin Carboxyhemoglobin Sodium Potassium Chloride Carbon Dioxide BUN Creatinine Glucose POC Glucose 200 H 184 H 177 H Lactic Acid Calcium Phosphorus Magnesium AST ALT Troponin T C-Reactive Protein Total Protein Albumin Arterial Blood Glucose Arterial Blood Ionized Calcium Urine WBC (Auto) Urine Creatinine 09/05/20 09/05/20 09/05/20 00:06 04:34 08:40 WBC RBC Hgb Hct MCH MCHC RDW Lymph % (Auto) Lymph # (Auto) Eos # (Auto) Seg Neutrophils % Seg Neuts % (Manual) Lymphocytes % (Manual) Seg Neutrophils # Seg Neutrophils # Man Lymphocytes # (Manual) D-Dimer ABG pH POC ABG pO2 ABG pO2 ABG HCO3 ABG Hemoglobin ABG Oxyhemoglobin ABG Sodium ABG Potassium ABG Glucose Oxyhemoglobin Carboxyhemoglobin Sodium 133 L Potassium Chloride 92.5 L Carbon Dioxide BUN 99 H Creatinine 3.6 H Glucose 167 H POC Glucose 198 H 189 H Lactic Acid Calcium Phosphorus Magnesium AST ALT Troponin T C-Reactive Protein Total Protein Albumin Arterial Blood Glucose Arterial Blood Ionized Calcium Urine WBC (Auto) Urine Creatinine 09/05/20 09/05/20 09/05/20 11:28 17:54 23:28 WBC RBC Hgb Hct MCH MCHC RDW Lymph % (Auto) Lymph # (Auto) Eos # (Auto) Seg Neutrophils % Seg Neuts % (Manual) Lymphocytes % (Manual) Seg Neutrophils # Seg Neutrophils # Man Lymphocytes # (Manual) D-Dimer ABG pH POC ABG pO2 ABG pO2 ABG HCO3 ABG Hemoglobin ABG Oxyhemoglobin ABG Sodium ABG Potassium ABG Glucose Oxyhemoglobin Carboxyhemoglobin Sodium Potassium Chloride Carbon Dioxide BUN Creatinine Glucose POC Glucose 171 H 169 H 163 H Lactic Acid Calcium Phosphorus Magnesium AST ALT Troponin T C-Reactive Protein Total Protein Albumin Arterial Blood Glucose Arterial Blood Ionized Calcium Urine WBC (Auto) Urine Creatinine 09/06/20 09/06/20 09/06/20 05:17 11:55 18:07 WBC RBC Hgb Hct MCH MCHC RDW Lymph % (Auto) Lymph # (Auto) Eos # (Auto) Seg Neutrophils % Seg Neuts % (Manual) Lymphocytes % (Manual) Seg Neutrophils # Seg Neutrophils # Man Lymphocytes # (Manual) D-Dimer ABG pH POC ABG pO2 ABG pO2 ABG HCO3 ABG Hemoglobin ABG Oxyhemoglobin ABG Sodium ABG Potassium ABG Glucose Oxyhemoglobin Carboxyhemoglobin Sodium Potassium Chloride Carbon Dioxide BUN Creatinine Glucose POC Glucose 151 H 175 H 182 H Lactic Acid Calcium Phosphorus Magnesium AST ALT Troponin T C-Reactive Protein Total Protein Albumin Arterial Blood Glucose Arterial Blood Ionized Calcium Urine WBC (Auto) Urine Creatinine 09/06/20 09/06/20 09/06/20 23:19 Unknown Unknown WBC 17.3 H RBC 3.25 L Hgb 8.7 L Hct 26.2 L MCH 27 L MCHC RDW 15.6 H Lymph % (Auto) 4.4 L Lymph # (Auto) 0.8 L Eos # (Auto) Seg Neutrophils % 89.5 H Seg Neuts % (Manual) Lymphocytes % (Manual) Seg Neutrophils # 15.5 H Seg Neutrophils # Man Lymphocytes # (Manual) D-Dimer ABG pH POC ABG pO2 ABG pO2 ABG HCO3 ABG Hemoglobin ABG Oxyhemoglobin ABG Sodium ABG Potassium ABG Glucose Oxyhemoglobin Carboxyhemoglobin Sodium 132 L Potassium Chloride 91.9 L Carbon Dioxide BUN 104 H Creatinine 3.8 H Glucose 177 H POC Glucose 160 H Lactic Acid Calcium Phosphorus Magnesium 2.60 H AST ALT Troponin T C-Reactive Protein Total Protein Albumin Arterial Blood Glucose Arterial Blood Ionized Calcium Urine WBC (Auto) Urine Creatinine 09/07/20 09/07/20 09/07/20 04:00 05:36 Unknown WBC 13.6 H RBC 3.14 L Hgb 8.1 L Hct 25.2 L MCH 26 L MCHC RDW 15.5 H Lymph % (Auto) 6.0 L Lymph # (Auto) 0.8 L Eos # (Auto) 0.5 H Seg Neutrophils % 85.5 H Seg Neuts % (Manual) Lymphocytes % (Manual) Seg Neutrophils # 11.6 H Seg Neutrophils # Man Lymphocytes # (Manual) D-Dimer ABG pH POC ABG pO2 ABG pO2 ABG HCO3 ABG Hemoglobin ABG Oxyhemoglobin ABG Sodium ABG Potassium ABG Glucose Oxyhemoglobin Carboxyhemoglobin Sodium Potassium Chloride 95.6 L Carbon Dioxide BUN 108 H Creatinine 3.9 H Glucose 129 H POC Glucose 151 H Lactic Acid Calcium Phosphorus Magnesium AST ALT Troponin T C-Reactive Protein Total Protein Albumin Arterial Blood Glucose Arterial Blood Ionized Calcium Urine WBC (Auto) Urine Creatinine
--- NOTE | 2020-09-07 12:56 | Progress Note ---
Assessment and Plan Acute hypoxemic respiratory failure Cardiac arrest with ROSC Acute encephalopathy Multifocal pneumonia Possible bilateral pulmonary edema Congestive heart failure with an acute exacerbation Anemia Hyperkalemia Lactic acidosis Acute kidney injury Elevated serum transaminases Non-ST elevation [place] Oropharyngeal dysphagia - continue Versed for seizure control - adjust AED's per neurologist - s/p midline - continue Daily SAT and SBT assessment as tolerated meantime - continue other care as below otherwise - continue Flomax for retention - continue neurology evaluation - continue to wean supplemental oxygen for target O2 sat's > 92% acutely - VAP bundle addressed - continue lung protective strategies - continue bronchodilators with pulmonary hygiene per RT - wean per pulmonary driven protocols otherwise - continue accuchecks with glycemic control per SSI (While critically ill target blood glucose of 140-180 mg/dL; avoid hypoglycemia) - sedation prn for target RASS -1 to -2 - avoid nephrotoxins, renally dose all medications - continue to avoid benzodiazepine's, reduce the possibility of delirium - complete AB's per ID rec's - prn analgesia per CPOT score - Maintenance of sleep-wake cycle, avoid delirium - enteral nutritional support at goal rate as tolerated - G.I. & VTE prophylaxis - PT/OT/ROM exercises - continue mobility protocols for pressure ulcer prophylaxis - Monitor hemodynamics closely - continue other care per attending / other consultants - discharge planning ongoing concurrently COVID SPECIFIC INTERVENTIONS - COVID-19 PCR negative .... Re-evaluate in am & prn CONDITION: CRITICAL PROGNOSIS: GUARDED CODE STATUS: FULL CODE The high probability of a clinically significant, sudden or life-threatening deterioration of the [respiratory, cardiovascular & neurologic] system(s) required my full and direct attention, intervention and personal management. The aggregate critical care time was [32] minutes without overlap. Time includes spent on; [x] Data Review and interpretation [x] Patient assessment and monitoring of vital signs [x] Documentation [x] Medication orders and management Subjective Date of service: 09/07/20 Principal diagnosis: Ac. hypoxemic resp failure; Cardiac arrest; AMS; AE-CHF; Hyperkalemia; FLORIDALMA Interval history: Patient is seen today for: Acute hypoxemic respiratory failure; Cardiac arrest with ROSC; Acute encephalopathy; Multifocal pneumonia; pulmonary edema; AE-CHF; Hyperkalemia; FLORIDALMA; NSTEMI Seen and examined at bedside; 24hour events reviewed; nursing and respiratory care staff consulted; no adverse overnight events reported to me; resting in bed; remains on MVS; versed resumed due to return of twitches; AMS is persistent; remains on Dopamine; no emesis or overt aspiration Objective Vital Signs - 12hr 09/07/20 09/07/20 09/07/20 01:00 01:15 01:30 Temperature Pulse Rate 70 74 71 Pulse Rate [ 65 From Monitor] Respiratory 20 22 17 Rate Blood Pressure 125/43 130/49 132/48 O2 Sat by Pulse 96 97 97 Oximetry 09/07/20 09/07/20 09/07/20 01:46 02:00 02:16 Temperature Pulse Rate 70 71 71 Pulse Rate [ From Monitor] Respiratory 19 18 16 Rate Blood Pressure 139/47 137/50 145/49 O2 Sat by Pulse 98 97 97 Oximetry 09/07/20 09/07/20 09/07/20 02:30 02:46 03:00 Temperature Pulse Rate 71 69 68 Pulse Rate [ From Monitor] Respiratory 14 14 19 Rate Blood Pressure 136/43 122/44 124/43 O2 Sat by Pulse 97 98 97 Oximetry 09/07/20 09/07/20 09/07/20 03:16 03:30 03:35 Temperature 98.8 F Pulse Rate 71 72 Pulse Rate [ From Monitor] Respiratory 17 17 Rate Blood Pressure 133/49 138/49 O2 Sat by Pulse 97 97 Oximetry 09/07/20 09/07/20 09/07/20 03:46 04:00 04:01 Temperature Pulse Rate 71 70 69 Pulse Rate [ From Monitor] Respiratory 17 15 Rate Blood Pressure 132/47 129/47 129/47 O2 Sat by Pulse 97 97 99 Oximetry 09/07/20 09/07/20 09/07/20 04:16 04:30 04:46 Temperature Pulse Rate 71 72 76 Pulse Rate [ From Monitor] Respiratory 15 19 17 Rate Blood Pressure 123/47 127/43 133/52 O2 Sat by Pulse 98 97 97 Oximetry 09/07/20 09/07/20 09/07/20 05:00 05:16 05:30 Temperature Pulse Rate 88 75 77 Pulse Rate [ 69 From Monitor] Respiratory 23 16 17 Rate Blood Pressure 127/43 147/56 144/59 O2 Sat by Pulse 97 97 97 Oximetry 09/07/20 09/07/20 09/07/20 05:46 06:00 06:16 Temperature Pulse Rate 75 71 66 Pulse Rate [ From Monitor] Respiratory 12 13 18 Rate Blood Pressure 140/55 140/55 67/29 O2 Sat by Pulse 97 97 97 Oximetry 09/07/20 09/07/20 09/07/20 06:26 06:30 06:45 Temperature Pulse Rate 65 69 71 Pulse Rate [ From Monitor] Respiratory 15 18 Rate Blood Pressure 89/41 120/46 122/47 O2 Sat by Pulse 96 96 Oximetry 09/07/20 09/07/20 09/07/20 07:00 07:15 07:30 Temperature Pulse Rate 72 74 73 Pulse Rate [ From Monitor] Respiratory 16 17 18 Rate Blood Pressure 132/52 142/56 135/54 O2 Sat by Pulse 97 97 96 Oximetry 09/07/20 09/07/20 09/07/20 07:46 07:54 08:00 Temperature 98.2 F Pulse Rate 69 78 68 Pulse Rate [ From Monitor] Respiratory 9 L 19 Rate Blood Pressure 143/54 143/54 128/47 O2 Sat by Pulse 97 98 96 Oximetry 09/07/20 09/07/20 09/07/20 08:16 08:30 08:45 Temperature Pulse Rate 62 62 54 L Pulse Rate [ From Monitor] Respiratory 15 19 19 Rate Blood Pressure 93/39 99/44 101/41 O2 Sat by Pulse 95 95 96 Oximetry 09/07/20 09/07/20 09/07/20 09:00 09:16 09:30 Temperature Pulse Rate 68 71 72 Pulse Rate [ From Monitor] Respiratory 17 19 19 Rate Blood Pressure 140/55 141/58 144/61 O2 Sat by Pulse 96 97 97 Oximetry 09/07/20 09/07/20 09/07/20 09:46 10:00 10:16 Temperature Pulse Rate 70 71 72 Pulse Rate [ From Monitor] Respiratory 16 16 12 Rate Blood Pressure 151/60 150/60 149/58 O2 Sat by Pulse 97 97 97 Oximetry 09/07/20 09/07/20 09/07/20 10:30 10:46 11:00 Temperature Pulse Rate 77 77 77 Pulse Rate [ From Monitor] Respiratory 18 17 13 Rate Blood Pressure 155/60 137/53 131/55 O2 Sat by Pulse 96 97 97 Oximetry 09/07/20 09/07/20 09/07/20 11:16 11:30 11:43 Temperature Pulse Rate 76 74 74 Pulse Rate [ From Monitor] Respiratory 12 13 Rate Blood Pressure 127/50 115/44 115/44 O2 Sat by Pulse 97 97 99 Oximetry 09/07/20 09/07/20 09/07/20 11:46 12:00 12:15 Temperature 97.9 F Pulse Rate 74 74 76 Pulse Rate [ From Monitor] Respiratory 15 16 18 Rate Blood Pressure 110/42 118/45 108/51 O2 Sat by Pulse 98 97 97 Oximetry Constitutional: appears uncomfortable, other (elderly obese female with mild patient ventilator dyssynchrony) Eyes: non-icteric ENT: oropharynx moist, oropharyngeal exudate pre (clear, frothy), other (ETT 24 cm DIMAS) Neck: supple, no lymphadenopathy, no JVD Effort: mildly labored Ascultation: Bilateral: diminished breath sounds (bases), rhonchi (scant) Percussion: Bilateral: not dull Cardiovascular: regular rate and rhythm, other (S1,S2) Gastrointestinal: normoactive bowel sounds Integumentary: normal Extremities: no cyanosis, no edema, pulses normal, no ischemia or petechiae Neurologic: pupils equal and round, unable to assess, other (facial and whole body seizures + bitting tongue) Psychiatric: other (unable to assess re: AMS) CBC and BMP: 09/07/20 Unknown 09/07/20 04:00 ABG, PT/INR, D-dimer: ABG ABG pH 7.462 (7.320-7.450) H 09/01/20 12:51 POC ABG pCO2 39.5 mmHg (32.0-48.0) 09/01/20 12:51 ABG pCO2 36.6 mm Hg 08/31/20 04:10 POC ABG pO2 102.7 mmHg (83-108) 09/01/20 12:51 ABG pO2 99.6 mm Hg (80.0-90.0) H 08/31/20 04:10 POC ABG HCO3 27.6 09/01/20 12:51 ABG O2 Saturation 98.0 (0-100) 09/01/20 12:51 PT/INR, D-dimer D-Dimer > 70132 ng/mlDDU (0-234) H 08/25/20 11:23 Abnormal lab findings: Abnormal Labs 08/25/20 08/25/20 08/25/20 11:14 11:17 11:23 WBC 11.5 H RBC 3.22 L Hgb 8.6 L Hct 27.6 L MCH 27 L MCHC RDW 15.6 H Lymph % (Auto) Lymph # (Auto) Eos # (Auto) Seg Neutrophils % Seg Neuts % (Manual) 89.0 H Lymphocytes % (Manual) 5.0 L Seg Neutrophils # Seg Neutrophils # Man 10.2 H Lymphocytes # (Manual) 0.6 L D-Dimer ABG pH 7.290 L POC ABG pO2 161.1 H ABG pO2 ABG HCO3 ABG Hemoglobin 8.9 L ABG Oxyhemoglobin 98.6 H ABG Sodium 135.2 L ABG Potassium 5.9 H ABG Glucose 210 H Oxyhemoglobin Carboxyhemoglobin 0.4 L Sodium Potassium Chloride Carbon Dioxide BUN Creatinine Glucose POC Glucose Lactic Acid Calcium Phosphorus Magnesium AST ALT Troponin T C-Reactive Protein Total Protein Albumin Arterial Blood Glucose 210 H Arterial Blood Ionized Calcium 4.4 L Urine WBC (Auto) 31.0 H Urine Creatinine 08/25/20 08/25/20 08/25/20 11:23 11:23 11:23 WBC RBC Hgb Hct MCH MCHC RDW Lymph % (Auto) Lymph # (Auto) Eos # (Auto) Seg Neutrophils % Seg Neuts % (Manual) Lymphocytes % (Manual) Seg Neutrophils # Seg Neutrophils # Man Lymphocytes # (Manual) D-Dimer > 71753 H ABG pH POC ABG pO2 ABG pO2 ABG HCO3 ABG Hemoglobin ABG Oxyhemoglobin ABG Sodium ABG Potassium ABG Glucose Oxyhemoglobin Carboxyhemoglobin Sodium Potassium 6.4 H* Chloride Carbon Dioxide 21 L BUN 52 H Creatinine 3.5 H Glucose 194 H POC Glucose Lactic Acid 3.30 H* Calcium 8.1 L Phosphorus Magnesium AST 103 H ALT 77 H Troponin T 0.057 H C-Reactive Protein Total Protein 5.8 L Albumin 3.4 L Arterial Blood Glucose Arterial Blood Ionized Calcium Urine WBC (Auto) Urine Creatinine 08/25/20 08/25/20 08/25/20 13:51 15:45 20:34 WBC RBC Hgb Hct MCH MCHC RDW Lymph % (Auto) Lymph # (Auto) Eos # (Auto) Seg Neutrophils % Seg Neuts % (Manual) Lymphocytes % (Manual) Seg Neutrophils # Seg Neutrophils # Man Lymphocytes # (Manual) D-Dimer ABG pH POC ABG pO2 66.3 L ABG pO2 ABG HCO3 ABG Hemoglobin 9.1 L ABG Oxyhemoglobin 92.5 L ABG Sodium ABG Potassium ABG Glucose 225 H Oxyhemoglobin Carboxyhemoglobin Sodium Potassium Chloride Carbon Dioxide BUN Creatinine Glucose POC Glucose 188 H 233 H Lactic Acid Calcium Phosphorus Magnesium AST ALT Troponin T C-Reactive Protein Total Protein Albumin Arterial Blood Glucose 225 H Arterial Blood Ionized Calcium 4.4 L Urine WBC (Auto) Urine Creatinine 08/26/20 08/26/20 08/26/20 04:14 05:04 05:04 WBC 17.9 H RBC 3.05 L Hgb 8.3 L Hct 25.6 L MCH 27 L MCHC RDW 15.3 H Lymph % (Auto) Lymph # (Auto) Eos # (Auto) Seg Neutrophils % Seg Neuts % (Manual) 96.0 H Lymphocytes % (Manual) 1.0 L Seg Neutrophils # Seg Neutrophils # Man 17.2 H Lymphocytes # (Manual) 0.2 L D-Dimer ABG pH POC ABG pO2 131.3 H ABG pO2 ABG HCO3 ABG Hemoglobin 8.6 L ABG Oxyhemoglobin 98.2 H ABG Sodium ABG Potassium ABG Glucose 182 H Oxyhemoglobin Carboxyhemoglobin 0.2 L Sodium Potassium Chloride Carbon Dioxide BUN 56 H Creatinine 3.4 H Glucose 187 H POC Glucose Lactic Acid Calcium 8.3 L Phosphorus Magnesium AST 54 H ALT 57 H Troponin T C-Reactive Protein Total Protein 5.4 L Albumin 2.9 L Arterial Blood Glucose 182 H Arterial Blood Ionized Calcium 4.3 L Urine WBC (Auto) Urine Creatinine 08/26/20 08/26/20 08/26/20 05:40 07:36 11:54 WBC RBC Hgb Hct MCH MCHC RDW Lymph % (Auto) Lymph # (Auto) Eos # (Auto) Seg Neutrophils % Seg Neuts % (Manual) Lymphocytes % (Manual) Seg Neutrophils # Seg Neutrophils # Man Lymphocytes # (Manual) D-Dimer ABG pH POC ABG pO2 ABG pO2 ABG HCO3 ABG Hemoglobin ABG Oxyhemoglobin ABG Sodium ABG Potassium ABG Glucose Oxyhemoglobin Carboxyhemoglobin Sodium Potassium Chloride Carbon Dioxide BUN Creatinine Glucose POC Glucose 179 H 171 H 190 H Lactic Acid Calcium Phosphorus Magnesium AST ALT Troponin T C-Reactive Protein Total Protein Albumin Arterial Blood Glucose Arterial Blood Ionized Calcium Urine WBC (Auto) Urine Creatinine 08/26/20 08/26/20 08/26/20 15:14 17:00 18:50 WBC RBC Hgb Hct MCH MCHC RDW Lymph % (Auto) Lymph # (Auto) Eos # (Auto) Seg Neutrophils % Seg Neuts % (Manual) Lymphocytes % (Manual) Seg Neutrophils # Seg Neutrophils # Man Lymphocytes # (Manual) D-Dimer ABG pH POC ABG pO2 ABG pO2 ABG HCO3 ABG Hemoglobin ABG Oxyhemoglobin ABG Sodium ABG Potassium ABG Glucose Oxyhemoglobin Carboxyhemoglobin Sodium Potassium Chloride Carbon Dioxide BUN Creatinine Glucose POC Glucose 158 H Lactic Acid Calcium Phosphorus Magnesium AST ALT Troponin T C-Reactive Protein 7.80 H Total Protein Albumin Arterial Blood Glucose Arterial Blood Ionized Calcium Urine WBC (Auto) Urine Creatinine 67.4 H 08/26/20 08/27/20 08/27/20 22:01 04:10 05:12 WBC RBC Hgb Hct MCH MCHC RDW Lymph % (Auto) Lymph # (Auto) Eos # (Auto) Seg Neutrophils % Seg Neuts % (Manual) Lymphocytes % (Manual) Seg Neutrophils # Seg Neutrophils # Man Lymphocytes # (Manual) D-Dimer ABG pH 7.454 H POC ABG pO2 74.9 L ABG pO2 ABG HCO3 ABG Hemoglobin 7.9 L ABG Oxyhemoglobin ABG Sodium ABG Potassium ABG Glucose 117 H Oxyhemoglobin Carboxyhemoglobin Sodium Potassium Chloride Carbon Dioxide BUN Creatinine Glucose POC Glucose 122 H 117 H Lactic Acid Calcium Phosphorus Magnesium AST ALT Troponin T C-Reactive Protein Total Protein Albumin Arterial Blood Glucose 117 H Arterial Blood Ionized Calcium 4.4 L Urine WBC (Auto) Urine Creatinine 08/27/20 08/27/20 08/27/20 07:24 07:24 11:08 WBC 12.7 H RBC 2.92 L Hgb 8.1 L Hct 24.4 L MCH MCHC RDW 15.4 H Lymph % (Auto) 5.9 L Lymph # (Auto) 0.8 L Eos # (Auto) Seg Neutrophils % 86.9 H Seg Neuts % (Manual) Lymphocytes % (Manual) Seg Neutrophils # 11.0 H Seg Neutrophils # Man Lymphocytes # (Manual) D-Dimer ABG pH POC ABG pO2 ABG pO2 ABG HCO3 ABG Hemoglobin ABG Oxyhemoglobin ABG Sodium ABG Potassium ABG Glucose Oxyhemoglobin Carboxyhemoglobin Sodium Potassium Chloride Carbon Dioxide BUN 60 H Creatinine 3.6 H Glucose 135 H POC Glucose 139 H Lactic Acid Calcium Phosphorus Magnesium AST ALT Troponin T C-Reactive Protein Total Protein 5.3 L Albumin 2.6 L Arterial Blood Glucose Arterial Blood Ionized Calcium Urine WBC (Auto) Urine Creatinine 08/27/20 08/27/20 08/27/20 11:19 17:31 23:25 WBC RBC Hgb Hct MCH MCHC RDW Lymph % (Auto) Lymph # (Auto) Eos # (Auto) Seg Neutrophils % Seg Neuts % (Manual) Lymphocytes % (Manual) Seg Neutrophils # Seg Neutrophils # Man Lymphocytes # (Manual) D-Dimer ABG pH POC ABG pO2 ABG pO2 ABG HCO3 ABG Hemoglobin ABG Oxyhemoglobin ABG Sodium ABG Potassium ABG Glucose Oxyhemoglobin Carboxyhemoglobin Sodium Potassium Chloride Carbon Dioxide BUN Creatinine Glucose POC Glucose 143 H 140 H 123 H Lactic Acid Calcium Phosphorus Magnesium AST ALT Troponin T C-Reactive Protein Total Protein Albumin Arterial Blood Glucose Arterial Blood Ionized Calcium Urine WBC (Auto) Urine Creatinine 08/28/20 08/28/20 08/28/20 03:50 04:19 04:19 WBC RBC 2.80 L Hgb 7.8 L Hct 23.6 L MCH MCHC RDW 15.8 H Lymph % (Auto) Lymph # (Auto) Eos # (Auto) Seg Neutrophils % Seg Neuts % (Manual) Lymphocytes % (Manual) Seg Neutrophils # Seg Neutrophils # Man Lymphocytes # (Manual) D-Dimer ABG pH 7.329 L POC ABG pO2 ABG pO2 76.7 L ABG HCO3 27.0 H ABG Hemoglobin 7.5 L ABG Oxyhemoglobin ABG Sodium ABG Potassium ABG Glucose Oxyhemoglobin 93.6 L Carboxyhemoglobin Sodium 135 L Potassium Chloride Carbon Dioxide BUN 64 H Creatinine 3.8 H Glucose 143 H POC Glucose Lactic Acid Calcium 8.0 L Phosphorus Magnesium AST ALT Troponin T C-Reactive Protein Total Protein 4.8 L Albumin 2.4 L Arterial Blood Glucose Arterial Blood Ionized Calcium Urine WBC (Auto) Urine Creatinine 08/28/20 08/28/20 08/28/20 05:35 11:22 17:18 WBC RBC Hgb Hct MCH MCHC RDW Lymph % (Auto) Lymph # (Auto) Eos # (Auto) Seg Neutrophils % Seg Neuts % (Manual) Lymphocytes % (Manual) Seg Neutrophils # Seg Neutrophils # Man Lymphocytes # (Manual) D-Dimer ABG pH POC ABG pO2 ABG pO2 ABG HCO3 ABG Hemoglobin ABG Oxyhemoglobin ABG Sodium ABG Potassium ABG Glucose Oxyhemoglobin Carboxyhemoglobin Sodium Potassium Chloride Carbon Dioxide BUN Creatinine Glucose POC Glucose 147 H 182 H 216 H Lactic Acid Calcium Phosphorus Magnesium AST ALT Troponin T C-Reactive Protein Total Protein Albumin Arterial Blood Glucose Arterial Blood Ionized Calcium Urine WBC (Auto) Urine Creatinine 08/28/20 08/28/20 08/29/20 21:04 23:20 04:32 WBC RBC Hgb Hct MCH MCHC RDW Lymph % (Auto) Lymph # (Auto) Eos # (Auto) Seg Neutrophils % Seg Neuts % (Manual) Lymphocytes % (Manual) Seg Neutrophils # Seg Neutrophils # Man Lymphocytes # (Manual) D-Dimer ABG pH POC ABG pO2 ABG pO2 ABG HCO3 ABG Hemoglobin ABG Oxyhemoglobin ABG Sodium ABG Potassium ABG Glucose Oxyhemoglobin Carboxyhemoglobin Sodium 135 L Potassium Chloride 96.0 L Carbon Dioxide BUN 67 H Creatinine 3.8 H Glucose 200 H POC Glucose 204 H 242 H Lactic Acid Calcium 8.2 L Phosphorus Magnesium AST ALT Troponin T C-Reactive Protein Total Protein Albumin Arterial Blood Glucose Arterial Blood Ionized Calcium Urine WBC (Auto) Urine Creatinine 08/29/20 08/29/20 08/29/20 04:32 04:50 04:59 WBC RBC 3.25 L Hgb 9.0 L Hct 27.0 L MCH MCHC RDW 16.1 H Lymph % (Auto) Lymph # (Auto) Eos # (Auto) Seg Neutrophils % Seg Neuts % (Manual) Lymphocytes % (Manual) Seg Neutrophils # Seg Neutrophils # Man Lymphocytes # (Manual) D-Dimer ABG pH POC ABG pO2 ABG pO2 ABG HCO3 ABG Hemoglobin 8.8 L ABG Oxyhemoglobin ABG Sodium ABG Potassium ABG Glucose Oxyhemoglobin Carboxyhemoglobin Sodium Potassium Chloride Carbon Dioxide BUN Creatinine Glucose POC Glucose 201 H Lactic Acid Calcium Phosphorus Magnesium AST ALT Troponin T C-Reactive Protein Total Protein Albumin Arterial Blood Glucose Arterial Blood Ionized Calcium Urine WBC (Auto) Urine Creatinine 08/29/20 08/29/20 08/29/20 11:10 11:28 17:50 WBC RBC Hgb Hct MCH MCHC RDW Lymph % (Auto) Lymph # (Auto) Eos # (Auto) Seg Neutrophils % Seg Neuts % (Manual) Lymphocytes % (Manual) Seg Neutrophils # Seg Neutrophils # Man Lymphocytes # (Manual) D-Dimer ABG pH POC ABG pO2 ABG pO2 78.7 L ABG HCO3 26.6 H ABG Hemoglobin 9.8 L ABG Oxyhemoglobin ABG Sodium ABG Potassium ABG Glucose Oxyhemoglobin 94.3 L Carboxyhemoglobin Sodium Potassium Chloride Carbon Dioxide BUN Creatinine Glucose POC Glucose 219 H 203 H Lactic Acid Calcium Phosphorus Magnesium AST ALT Troponin T C-Reactive Protein Total Protein Albumin Arterial Blood Glucose Arterial Blood Ionized Calcium Urine WBC (Auto) Urine Creatinine 08/29/20 08/29/20 08/30/20 21:31 23:28 04:14 WBC RBC Hgb Hct MCH MCHC RDW Lymph % (Auto) Lymph # (Auto) Eos # (Auto) Seg Neutrophils % Seg Neuts % (Manual) Lymphocytes % (Manual) Seg Neutrophils # Seg Neutrophils # Man Lymphocytes # (Manual) D-Dimer ABG pH POC ABG pO2 ABG pO2 ABG HCO3 ABG Hemoglobin ABG Oxyhemoglobin ABG Sodium ABG Potassium ABG Glucose Oxyhemoglobin Carboxyhemoglobin Sodium 132 L Potassium Chloride 94.8 L Carbon Dioxide BUN 68 H Creatinine 3.7 H Glucose 214 H POC Glucose 204 H 215 H Lactic Acid Calcium Phosphorus Magnesium AST ALT Troponin T C-Reactive Protein Total Protein Albumin Arterial Blood Glucose Arterial Blood Ionized Calcium Urine WBC (Auto) Urine Creatinine 08/30/20 08/30/20 08/30/20 05:10 11:33 17:32 WBC RBC Hgb Hct MCH MCHC RDW Lymph % (Auto) Lymph # (Auto) Eos # (Auto) Seg Neutrophils % Seg Neuts % (Manual) Lymphocytes % (Manual) Seg Neutrophils # Seg Neutrophils # Man Lymphocytes # (Manual) D-Dimer ABG pH POC ABG pO2 ABG pO2 ABG HCO3 ABG Hemoglobin ABG Oxyhemoglobin ABG Sodium ABG Potassium ABG Glucose Oxyhemoglobin Carboxyhemoglobin Sodium Potassium Chloride Carbon Dioxide BUN Creatinine Glucose POC Glucose 210 H 194 H 202 H Lactic Acid Calcium Phosphorus Magnesium AST ALT Troponin T C-Reactive Protein Total Protein Albumin Arterial Blood Glucose Arterial Blood Ionized Calcium Urine WBC (Auto) Urine Creatinine 08/30/20 08/30/20 08/30/20 21:39 23:21 Unknown WBC RBC Hgb Hct MCH MCHC RDW Lymph % (Auto) Lymph # (Auto) Eos # (Auto) Seg Neutrophils % Seg Neuts % (Manual) Lymphocytes % (Manual) Seg Neutrophils # Seg Neutrophils # Man Lymphocytes # (Manual) D-Dimer ABG pH POC ABG pO2 ABG pO2 99.0 H ABG HCO3 ABG Hemoglobin 9.8 L ABG Oxyhemoglobin ABG Sodium ABG Potassium ABG Glucose Oxyhemoglobin Carboxyhemoglobin Sodium Potassium Chloride Carbon Dioxide BUN Creatinine Glucose POC Glucose 199 H 209 H Lactic Acid Calcium Phosphorus Magnesium AST ALT Troponin T C-Reactive Protein Total Protein Albumin Arterial Blood Glucose Arterial Blood Ionized Calcium Urine WBC (Auto) Urine Creatinine 08/31/20 08/31/20 08/31/20 04:10 05:19 10:57 WBC RBC Hgb Hct MCH MCHC RDW Lymph % (Auto) Lymph # (Auto) Eos # (Auto) Seg Neutrophils % Seg Neuts % (Manual) Lymphocytes % (Manual) Seg Neutrophils # Seg Neutrophils # Man Lymphocytes # (Manual) D-Dimer ABG pH 7.451 H POC ABG pO2 ABG pO2 99.6 H ABG HCO3 ABG Hemoglobin 8.4 L ABG Oxyhemoglobin ABG Sodium ABG Potassium ABG Glucose Oxyhemoglobin Carboxyhemoglobin Sodium 133 L Potassium Chloride 96.4 L Carbon Dioxide BUN 74 H Creatinine 3.8 H Glucose 201 H POC Glucose 182 H Lactic Acid Calcium 7.6 L Phosphorus Magnesium AST ALT Troponin T C-Reactive Protein Total Protein Albumin Arterial Blood Glucose Arterial Blood Ionized Calcium Urine WBC (Auto) Urine Creatinine 08/31/20 08/31/20 08/31/20 10:57 12:32 17:15 WBC 11.4 H RBC 3.24 L Hgb 8.5 L Hct 26.6 L MCH 26 L MCHC RDW 15.6 H Lymph % (Auto) Lymph # (Auto) Eos # (Auto) Seg Neutrophils % Seg Neuts % (Manual) Lymphocytes % (Manual) Seg Neutrophils # Seg Neutrophils # Man Lymphocytes # (Manual) D-Dimer ABG pH POC ABG pO2 ABG pO2 ABG HCO3 ABG Hemoglobin ABG Oxyhemoglobin ABG Sodium ABG Potassium ABG Glucose Oxyhemoglobin Carboxyhemoglobin Sodium Potassium Chloride Carbon Dioxide BUN Creatinine Glucose POC Glucose 217 H 203 H Lactic Acid Calcium Phosphorus Magnesium AST ALT Troponin T C-Reactive Protein Total Protein Albumin Arterial Blood Glucose Arterial Blood Ionized Calcium Urine WBC (Auto) Urine Creatinine 09/01/20 09/01/20 09/01/20 00:06 05:05 09:41 WBC RBC Hgb Hct MCH MCHC RDW Lymph % (Auto) Lymph # (Auto) Eos # (Auto) Seg Neutrophils % Seg Neuts % (Manual) Lymphocytes % (Manual) Seg Neutrophils # Seg Neutrophils # Man Lymphocytes # (Manual) D-Dimer ABG pH POC ABG pO2 ABG pO2 ABG HCO3 ABG Hemoglobin ABG Oxyhemoglobin ABG Sodium ABG Potassium ABG Glucose Oxyhemoglobin Carboxyhemoglobin Sodium 134 L Potassium Chloride 95.2 L Carbon Dioxide BUN 81 H Creatinine 3.7 H Glucose 201 H POC Glucose 223 H 225 H Lactic Acid Calcium Phosphorus 4.60 H Magnesium 2.40 H AST ALT Troponin T C-Reactive Protein Total Protein Albumin Arterial Blood Glucose Arterial Blood Ionized Calcium Urine WBC (Auto) Urine Creatinine 09/01/20 09/01/20 09/01/20 09:41 12:51 13:08 WBC 11.5 H RBC 3.58 L Hgb 9.2 L Hct 29.7 L MCH 26 L MCHC RDW 16.0 H Lymph % (Auto) Lymph # (Auto) Eos # (Auto) Seg Neutrophils % Seg Neuts % (Manual) Lymphocytes % (Manual) Seg Neutrophils # Seg Neutrophils # Man Lymphocytes # (Manual) D-Dimer ABG pH 7.462 H POC ABG pO2 ABG pO2 ABG HCO3 ABG Hemoglobin 9.5 L ABG Oxyhemoglobin ABG Sodium 130.4 L ABG Potassium ABG Glucose 208 H Oxyhemoglobin Carboxyhemoglobin 0.4 L Sodium Potassium Chloride Carbon Dioxide BUN Creatinine Glucose POC Glucose 182 H Lactic Acid Calcium Phosphorus Magnesium AST ALT Troponin T C-Reactive Protein Total Protein Albumin Arterial Blood Glucose 208 H Arterial Blood Ionized Calcium 4.5 L Urine WBC (Auto) Urine Creatinine 09/01/20 09/01/20 09/02/20 18:34 23:14 05:22 WBC RBC Hgb Hct MCH MCHC RDW Lymph % (Auto) Lymph # (Auto) Eos # (Auto) Seg Neutrophils % Seg Neuts % (Manual) Lymphocytes % (Manual) Seg Neutrophils # Seg Neutrophils # Man Lymphocytes # (Manual) D-Dimer ABG pH POC ABG pO2 ABG pO2 ABG HCO3 ABG Hemoglobin ABG Oxyhemoglobin ABG Sodium ABG Potassium ABG Glucose Oxyhemoglobin Carboxyhemoglobin Sodium Potassium Chloride Carbon Dioxide BUN Creatinine Glucose POC Glucose 183 H 181 H 178 H Lactic Acid Calcium Phosphorus Magnesium AST ALT Troponin T C-Reactive Protein Total Protein Albumin Arterial Blood Glucose Arterial Blood Ionized Calcium Urine WBC (Auto) Urine Creatinine 09/02/20 09/02/20 09/02/20 07:35 11:16 17:39 WBC RBC Hgb Hct MCH MCHC RDW Lymph % (Auto) Lymph # (Auto) Eos # (Auto) Seg Neutrophils % Seg Neuts % (Manual) Lymphocytes % (Manual) Seg Neutrophils # Seg Neutrophils # Man Lymphocytes # (Manual) D-Dimer ABG pH POC ABG pO2 ABG pO2 ABG HCO3 ABG Hemoglobin ABG Oxyhemoglobin ABG Sodium ABG Potassium ABG Glucose Oxyhemoglobin Carboxyhemoglobin Sodium 135 L Potassium Chloride 96.0 L Carbon Dioxide BUN 88 H Creatinine 3.7 H Glucose 187 H POC Glucose 228 H 165 H Lactic Acid Calcium Phosphorus Magnesium AST ALT Troponin T C-Reactive Protein Total Protein Albumin Arterial Blood Glucose Arterial Blood Ionized Calcium Urine WBC (Auto) Urine Creatinine 09/02/20 09/03/20 09/03/20 23:24 05:35 08:31 WBC 18.5 H RBC 2.80 L Hgb 7.8 L Hct 22.7 L D MCH MCHC 35 H RDW 15.3 H Lymph % (Auto) Lymph # (Auto) Eos # (Auto) Seg Neutrophils % Seg Neuts % (Manual) Lymphocytes % (Manual) Seg Neutrophils # Seg Neutrophils # Man Lymphocytes # (Manual) D-Dimer ABG pH POC ABG pO2 ABG pO2 ABG HCO3 ABG Hemoglobin ABG Oxyhemoglobin ABG Sodium ABG Potassium ABG Glucose Oxyhemoglobin Carboxyhemoglobin Sodium Potassium Chloride Carbon Dioxide BUN Creatinine Glucose POC Glucose 167 H 180 H Lactic Acid Calcium Phosphorus Magnesium AST ALT Troponin T C-Reactive Protein Total Protein Albumin Arterial Blood Glucose Arterial Blood Ionized Calcium Urine WBC (Auto) Urine Creatinine 09/03/20 09/03/20 09/03/20 08:31 12:02 17:05 WBC RBC Hgb Hct MCH MCHC RDW Lymph % (Auto) Lymph # (Auto) Eos # (Auto) Seg Neutrophils % Seg Neuts % (Manual) Lymphocytes % (Manual) Seg Neutrophils # Seg Neutrophils # Man Lymphocytes # (Manual) D-Dimer ABG pH POC ABG pO2 ABG pO2 ABG HCO3 ABG Hemoglobin ABG Oxyhemoglobin ABG Sodium ABG Potassium ABG Glucose Oxyhemoglobin Carboxyhemoglobin Sodium 134 L Potassium Chloride 96.6 L Carbon Dioxide BUN 96 H Creatinine 3.7 H Glucose 190 H POC Glucose 156 H 150 H Lactic Acid Calcium 8.1 L Phosphorus Magnesium AST ALT Troponin T C-Reactive Protein Total Protein Albumin Arterial Blood Glucose Arterial Blood Ionized Calcium Urine WBC (Auto) Urine Creatinine 09/03/20 09/04/20 09/04/20 23:31 05:23 09:49 WBC RBC Hgb Hct MCH MCHC RDW Lymph % (Auto) Lymph # (Auto) Eos # (Auto) Seg Neutrophils % Seg Neuts % (Manual) Lymphocytes % (Manual) Seg Neutrophils # Seg Neutrophils # Man Lymphocytes # (Manual) D-Dimer ABG pH POC ABG pO2 ABG pO2 ABG HCO3 ABG Hemoglobin ABG Oxyhemoglobin ABG Sodium ABG Potassium ABG Glucose Oxyhemoglobin Carboxyhemoglobin Sodium Potassium Chloride 97.9 L Carbon Dioxide BUN 98 H Creatinine 4.0 H Glucose 171 H POC Glucose 143 H 165 H Lactic Acid Calcium Phosphorus Magnesium AST ALT Troponin T C-Reactive Protein Total Protein Albumin Arterial Blood Glucose Arterial Blood Ionized Calcium Urine WBC (Auto) Urine Creatinine 09/04/20 09/04/20 09/04/20 12:05 17:46 21:25 WBC RBC Hgb Hct MCH MCHC RDW Lymph % (Auto) Lymph # (Auto) Eos # (Auto) Seg Neutrophils % Seg Neuts % (Manual) Lymphocytes % (Manual) Seg Neutrophils # Seg Neutrophils # Man Lymphocytes # (Manual) D-Dimer ABG pH POC ABG pO2 ABG pO2 ABG HCO3 ABG Hemoglobin ABG Oxyhemoglobin ABG Sodium ABG Potassium ABG Glucose Oxyhemoglobin Carboxyhemoglobin Sodium Potassium Chloride Carbon Dioxide BUN Creatinine Glucose POC Glucose 200 H 184 H 177 H Lactic Acid Calcium Phosphorus Magnesium AST ALT Troponin T C-Reactive Protein Total Protein Albumin Arterial Blood Glucose Arterial Blood Ionized Calcium Urine WBC (Auto) Urine Creatinine 09/05/20 09/05/20 09/05/20 00:06 04:34 08:40 WBC RBC Hgb Hct MCH MCHC RDW Lymph % (Auto) Lymph # (Auto) Eos # (Auto) Seg Neutrophils % Seg Neuts % (Manual) Lymphocytes % (Manual) Seg Neutrophils # Seg Neutrophils # Man Lymphocytes # (Manual) D-Dimer ABG pH POC ABG pO2 ABG pO2 ABG HCO3 ABG Hemoglobin ABG Oxyhemoglobin ABG Sodium ABG Potassium ABG Glucose Oxyhemoglobin Carboxyhemoglobin Sodium 133 L Potassium Chloride 92.5 L Carbon Dioxide BUN 99 H Creatinine 3.6 H Glucose 167 H POC Glucose 198 H 189 H Lactic Acid Calcium Phosphorus Magnesium AST ALT Troponin T C-Reactive Protein Total Protein Albumin Arterial Blood Glucose Arterial Blood Ionized Calcium Urine WBC (Auto) Urine Creatinine 09/05/20 09/05/20 09/05/20 11:28 17:54 23:28 WBC RBC Hgb Hct MCH MCHC RDW Lymph % (Auto) Lymph # (Auto) Eos # (Auto) Seg Neutrophils % Seg Neuts % (Manual) Lymphocytes % (Manual) Seg Neutrophils # Seg Neutrophils # Man Lymphocytes # (Manual) D-Dimer ABG pH POC ABG pO2 ABG pO2 ABG HCO3 ABG Hemoglobin ABG Oxyhemoglobin ABG Sodium ABG Potassium ABG Glucose Oxyhemoglobin Carboxyhemoglobin Sodium Potassium Chloride Carbon Dioxide BUN Creatinine Glucose POC Glucose 171 H 169 H 163 H Lactic Acid Calcium Phosphorus Magnesium AST ALT Troponin T C-Reactive Protein Total Protein Albumin Arterial Blood Glucose Arterial Blood Ionized Calcium Urine WBC (Auto) Urine Creatinine 09/06/20 09/06/20 09/06/20 05:17 11:55 18:07 WBC RBC Hgb Hct MCH MCHC RDW Lymph % (Auto) Lymph # (Auto) Eos # (Auto) Seg Neutrophils % Seg Neuts % (Manual) Lymphocytes % (Manual) Seg Neutrophils # Seg Neutrophils # Man Lymphocytes # (Manual) D-Dimer ABG pH POC ABG pO2 ABG pO2 ABG HCO3 ABG Hemoglobin ABG Oxyhemoglobin ABG Sodium ABG Potassium ABG Glucose Oxyhemoglobin Carboxyhemoglobin Sodium Potassium Chloride Carbon Dioxide BUN Creatinine Glucose POC Glucose 151 H 175 H 182 H Lactic Acid Calcium Phosphorus Magnesium AST ALT Troponin T C-Reactive Protein Total Protein Albumin Arterial Blood Glucose Arterial Blood Ionized Calcium Urine WBC (Auto) Urine Creatinine 09/06/20 09/06/20 09/06/20 23:19 Unknown Unknown WBC 17.3 H RBC 3.25 L Hgb 8.7 L Hct 26.2 L MCH 27 L MCHC RDW 15.6 H Lymph % (Auto) 4.4 L Lymph # (Auto) 0.8 L Eos # (Auto) Seg Neutrophils % 89.5 H Seg Neuts % (Manual) Lymphocytes % (Manual) Seg Neutrophils # 15.5 H Seg Neutrophils # Man Lymphocytes # (Manual) D-Dimer ABG pH POC ABG pO2 ABG pO2 ABG HCO3 ABG Hemoglobin ABG Oxyhemoglobin ABG Sodium ABG Potassium ABG Glucose Oxyhemoglobin Carboxyhemoglobin Sodium 132 L Potassium Chloride 91.9 L Carbon Dioxide BUN 104 H Creatinine 3.8 H Glucose 177 H POC Glucose 160 H Lactic Acid Calcium Phosphorus Magnesium 2.60 H AST ALT Troponin T C-Reactive Protein Total Protein Albumin Arterial Blood Glucose Arterial Blood Ionized Calcium Urine WBC (Auto) Urine Creatinine 09/07/20 09/07/20 09/07/20 04:00 05:36 12:09 WBC RBC Hgb Hct MCH MCHC RDW Lymph % (Auto) Lymph # (Auto) Eos # (Auto) Seg Neutrophils % Seg Neuts % (Manual) Lymphocytes % (Manual) Seg Neutrophils # Seg Neutrophils # Man Lymphocytes # (Manual) D-Dimer ABG pH POC ABG pO2 ABG pO2 ABG HCO3 ABG Hemoglobin ABG Oxyhemoglobin ABG Sodium ABG Potassium ABG Glucose Oxyhemoglobin Carboxyhemoglobin Sodium Potassium Chloride 95.6 L Carbon Dioxide BUN 108 H Creatinine 3.9 H Glucose 129 H POC Glucose 151 H 172 H Lactic Acid Calcium Phosphorus Magnesium AST ALT Troponin T C-Reactive Protein Total Protein Albumin Arterial Blood Glucose Arterial Blood Ionized Calcium Urine WBC (Auto) Urine Creatinine 09/07/20 Unknown WBC 13.6 H RBC 3.14 L Hgb 8.1 L Hct 25.2 L MCH 26 L MCHC RDW 15.5 H Lymph % (Auto) 6.0 L Lymph # (Auto) 0.8 L Eos # (Auto) 0.5 H Seg Neutrophils % 85.5 H Seg Neuts % (Manual) Lymphocytes % (Manual) Seg Neutrophils # 11.6 H Seg Neutrophils # Man Lymphocytes # (Manual) D-Dimer ABG pH POC ABG pO2 ABG pO2 ABG HCO3 ABG Hemoglobin ABG Oxyhemoglobin ABG Sodium ABG Potassium ABG Glucose Oxyhemoglobin Carboxyhemoglobin Sodium Potassium Chloride Carbon Dioxide BUN Creatinine Glucose POC Glucose Lactic Acid Calcium Phosphorus Magnesium AST ALT Troponin T C-Reactive Protein Total Protein Albumin Arterial Blood Glucose Arterial Blood Ionized Calcium Urine WBC (Auto) Urine Creatinine Chest x-ray: pending Allied health notes reviewed: nursing
--- NOTE | 2020-09-07 16:04 | Progress Note ---
Assessment and Plan This is a 75-year-old female with CHF, OHS DM, CKD, morbid obesity, GERD, hypertension, chronic respiratory failure admitted s/p cardiac arrest A/P --Anoxic encephalopathy -Neurology consulted, appreciate recommendations -08/[address] head shows no CT evidence of acute abnormality -08/28 MRI brain without contrast shows abnormal diffusion and FLAIR signal abnormality which may suggest hypoxic/ischemic brain injury, hypoglycemic encephalopathy and perhaps Creutsfeldt-Cornelius disease otherwise no focal mass, hemorrhage or hydrocephalus seen -08/30 EEG- results pending Seizure -Keppra 500 mg mg BID , vimpat, Ativan as needed for facial twitching -Seizure/aspiration precautions -per neuro prognosis poor based on MRI -NO mind altering medications - to allow for neuro assessment and brain function -opens eyes spontaneously ; pupils not reactive to light; neg threat; pos cough; withdrawal on right to deep pain; no response to deep pain on left Pt has 8 living children- updated on plan of care --S/p cardiac arrest with prolonged down time- see ER note -ddimer elevated on admit following cardiac arrest -Cardiology has seen and signed off- call if needed -08/25 echocardiogram shows LVEF 40 to 45%, LV normal size, LV systolic function mildly decreased, mild diastolic dysfunction, mildly dilated right ventricle, pulmonary hypertension RVSP 45 mmHg -asa and statin Hypertension -home norvasc , hydral added -Blood pressure monitoring per protocol -IV hydralazine as needed --Acute hypoxic respiratory failure -Chronic respiratory insufficiency at home with 3 L oxygen via nasal cannula -remains intubated and ventilated on cpap this AM -Wean as tolerated; trend pulse ox -CCM following -VAP bundle -nebs as needed Multifocal pneumonia/ ? aspiration event -08/25 CXR shows worsening patchy bilateral pulmonary opacities -08/25 CTA chest shows no evidence of pulmonary embolism, bilateral pulmonary processes with large bilateral pleural effusions, pneumonia is a concern, pulmonary edema could be a similar appearance versus pulmonary edema --Protein Calorie Malnutrition TF per nutrition bowel reg. --FLORIDALMA on CKD secondary to patient under nephropathy -Nephrology consulted, patient recommendations -Daily weights -Avoid nephrotoxic medications; avoid NITIN/ARB -bladder scan with high residuals requiring frequent intermittent caths so foreman replaced at 1230 -trend and replace electrolytes as needed -Trend Cr --Urinary retention -Foreman replaced 08/31 for urinary retention --Anemia -Admit H/H 8.6/27.8 -Transfuse for hemoglobin less than 7 -Trend CBC --VTE prophylaxis with SCD and SQH --Pneumonia -trend WBC and temp curve -afebrile -trend cultures -covid neg on admit --Diabetes mellitus -SSI -Lantus, increase as needed -Accu-Cheks every 6h -avoid hypoglycemia -hx obesity DVT/GI prophylaxis: SCDs to bilateral lower extremities heparin subcu, PPI Disposition: ICU, need to discuss with family plan of care, general surgery was consulted for PEG and trach, patient is still making decisions on patient's care. Lines: PIV; foreman The high probability of a clinically significant, sudden or life threatening deterioration of the [cardiac, pulmonary, neuro, renal, infectious disease] system(s) required my full and direct attention, intervention and personal management. The aggregate critical care time was [35] minutes. This time is in addition to time spent performing reported procedures but includes the following: [x] Data Review and interpretation [x] Patient assessment and monitoring of vital signs [x] Documentation [x] Medication orders and management Brief History: This is a 69-year-old female with OHS, DM, CKD stage IV, morbid obesity CHF, GERD, HTN, chronic respiratory failure on 3 L of home oxygen via nasal cannula who presented to the emergency department on 08/25 after being found down unresponsive at 0950 hours by family and upon EMS arrival she was unresponsive and asystolic arrest. Patient was treated with ACLS protocol with eventual ROSC after at least 15 minutes of ACLS and patient was transported to [facility]. In the emergency department patient was found to have acute hypoxic respiratory failure and subsequently intubated on vasopressor support, she underwent a CXR which showed bilateral pneumonia and exam is consistent with SIRS. CCM and cardiology were consulted and patient was admitted to the hospital service with acute hypoxic respiratory failure, anoxic encephalopathy, s/p cardiac arrest, multifocal pneumonia, FLORIDALMA on CKD. Daily clinical course: 08/26/20 patient is seen and examined. Patient is on vent. WBC 17.9 and hemoglobin 8.3 hematocrit 25.6. Patient may have 1 episode of questionable seizure. Patient BUN is 56 creatinine 3.4. Will consult nephrology. We also start the patient on Rocephin 2 g IV daily and Zithromax. Aspirin 81 mg p.o. daily and Lipitor. Patient is having echocardiogram. Cardiology and critical care will see the patient as consult tension. Continue current management. We have started on NG tube feeding and consult nutrition for evaluation. Recheck CBC BMP in the morning. Case discussed with daughter Leena [phone] 08/27: Patient remains on full ventilatory support, considering concern for seizure yesterday under the circumstance of out of hospital cardiac arrest, and concern for anoxic encephalopathy, will proceed with Neurology consultation. 08/28: At the time my examination patient sedation of propofol 30 and fentanyl 1 was being held and she was on CMV tidal and 450, rate of 18, PEEP of 6 and FiO2 of 35%. Neurology was consulted. I updated the patient's daughter Leena Payton at bedside and told her of the pending tests the neurologist has ordered. 08/29: Increase in Lantus due to persistent hypoglycemia, chest ultrasound ordered for possible thoracentesis by [facility], MRI brain pending. Remove Foreman catheter if okay with nephrology. Increase in beta-skylar by [facility] however cardiology decreased hydralazine per neurology recommendations. At the time my examination patient was on CPAP trial pressure support of 12, PEEP of 6 and 35% FiO2. RT obtain an ABG we will continue CPAP as tolerated. 08/28: No acute events overnight. Noted to have seizure, addition of vimpat 08/29: Chest US noted to have pleural effusions, cxr shows pulmonary edema, nephro ordered lasix x1. CCM and nephro had conversation son at bedside. Surgery consulted for trach/peg. [facility] plans for IR thora if family decides aggressive care 08/30 No acute overnight events 08/31: given 80mg lasix by nephro, increase in lantus, Dulcolax suppository given for no recorded BM for 5 to 6 days 72: Patient did not have a further response to 80 mg of Lasix yesterday, no acute events reported overnight, patient is having several loose BMs 09/02: Patient was having facial twitching this morning, 1 mg of Ativan was given to the patient, Keppra was increased. No family at the bedside. 09/04: Patient continues to have facial twitching, neurology has made adjustments to medications for seizure control, spoke with critical care and the son at the bedside, family still deciding on the final route of care 09/05: Patient seen and examined in the ICU, continue to have social drinking. General surgery consulted for trach and PEG. Patient with CPAP vent setting. 09/06: Patient developed sinus bradycardia, cardiology consulted. Plan for trach and PEG placement postponed.. 09/07: Family wish to continue full CODE STATUS and wished to proceed with trach and PEG. Heart rate currently stable with dopamine. Patient remains on mechanical ventilation at CMV setting. Very poor prognosis. Continue to have facial twitching, neurology following appreciate recommendation Subjective Date of service: 09/07/20 Principal diagnosis: Ac. hypoxemic resp failure; Cardiac arrest; AMS; AE-CHF; Hyperkalemia; FLORIDALMA Interval history: Patient seen and examined. Medical records and medication list reviewed. No acute event overnight noted by the RN. Vital reviewed, remains on mechanical ventilation Discussed plan of care at bedside with RN Objective - Exam Narrative Exam: GENERAL: well-developed and well-nourished elderly female lying on bed with ventilator support HEENT: Normocephalic. Atraumatic. No conjunctival congestion or icterus. Patient has moist mucous membranes. NECK: Supple. Trachea midline. CHEST/LUNGS: On mechanical ventilation with CPAP setting HEART/CARDIOVASCULAR: Regular in rate and rhythm. S1 and S2 positive. ABDOMEN: Abdomen is soft, nontender. Patient has normal bowel sounds. SKIN: There is no rash. Warm and dry. NEURO: Does not follow command MUSCULOSKELETAL: No joint effusion or tenderness. EXTRIMITY: No edema, no cyanosis or clubbing. PSYCH: Unable to assess - Constitutional Vitals: Vital Signs - 12hr 09/07/20 09/07/20 09/07/20 04:16 04:30 04:46 Temperature Pulse Rate 71 72 76 Pulse Rate [ From Monitor] Respiratory 15 19 17 Rate Blood Pressure 123/47 127/43 133/52 O2 Sat by Pulse 98 97 97 Oximetry 09/07/20 09/07/20 09/07/20 05:00 05:16 05:30 Temperature Pulse Rate 88 75 77 Pulse Rate [ 69 From Monitor] Respiratory 23 16 17 Rate Blood Pressure 127/43 147/56 144/59 O2 Sat by Pulse 97 97 97 Oximetry 09/07/20 09/07/20 09/07/20 05:46 06:00 06:16 Temperature Pulse Rate 75 71 66 Pulse Rate [ From Monitor] Respiratory 12 13 18 Rate Blood Pressure 140/55 140/55 67/29 O2 Sat by Pulse 97 97 97 Oximetry 09/07/20 09/07/20 09/07/20 06:26 06:30 06:45 Temperature Pulse Rate 65 69 71 Pulse Rate [ From Monitor] Respiratory 15 18 Rate Blood Pressure 89/41 120/46 122/47 O2 Sat by Pulse 96 96 Oximetry 09/07/20 09/07/20 09/07/20 07:00 07:15 07:30 Temperature Pulse Rate 72 74 73 Pulse Rate [ From Monitor] Respiratory 16 17 18 Rate Blood Pressure 132/52 142/56 135/54 O2 Sat by Pulse 97 97 96 Oximetry 09/07/20 09/07/20 09/07/20 07:46 07:54 08:00 Temperature 98.2 F Pulse Rate 69 78 68 Pulse Rate [ From Monitor] Respiratory 9 L 19 Rate Blood Pressure 143/54 143/54 128/47 O2 Sat by Pulse 97 98 96 Oximetry 09/07/20 09/07/20 09/07/20 08:16 08:30 08:45 Temperature Pulse Rate 62 62 54 L Pulse Rate [ From Monitor] Respiratory 15 19 19 Rate Blood Pressure 93/39 99/44 101/41 O2 Sat by Pulse 95 95 96 Oximetry 09/07/20 09/07/20 09/07/20 09:00 09:16 09:30 Temperature Pulse Rate 68 71 72 Pulse Rate [ From Monitor] Respiratory 17 19 19 Rate Blood Pressure 140/55 141/58 144/61 O2 Sat by Pulse 96 97 97 Oximetry 09/07/20 09/07/20 09/07/20 09:46 10:00 10:16 Temperature Pulse Rate 70 71 72 Pulse Rate [ From Monitor] Respiratory 16 16 12 Rate Blood Pressure 151/60 150/60 149/58 O2 Sat by Pulse 97 97 97 Oximetry 09/07/20 09/07/20 09/07/20 10:30 10:46 11:00 Temperature Pulse Rate 77 77 77 Pulse Rate [ From Monitor] Respiratory 18 17 13 Rate Blood Pressure 155/60 137/53 131/55 O2 Sat by Pulse 96 97 97 Oximetry 09/07/20 09/07/20 09/07/20 11:16 11:30 11:43 Temperature Pulse Rate 76 74 74 Pulse Rate [ From Monitor] Respiratory 12 13 Rate Blood Pressure 127/50 115/44 115/44 O2 Sat by Pulse 97 97 99 Oximetry 09/07/20 09/07/20 09/07/20 11:46 12:00 12:15 Temperature 97.9 F Pulse Rate 74 74 76 Pulse Rate [ From Monitor] Respiratory 15 16 18 Rate Blood Pressure 110/42 118/45 108/51 O2 Sat by Pulse 98 97 97 Oximetry 09/07/20 09/07/20 12:30 13:00 Temperature Pulse Rate 74 73 Pulse Rate [ From Monitor] Respiratory 19 12 Rate Blood Pressure 108/51 109/49 O2 Sat by Pulse 98 98 Oximetry - Labs CBC & Chem 7: 09/10/20 06:50 09/11/20 04:30 Labs: Abnormal lab results 09/06/20 09/06/20 09/07/20 Range/Units 18:07 23:19 04:00 WBC (4.5-11.0) K/mm3 RBC (3.65-5.03) M/mm3 Hgb (10.1-14.3) gm/dl Hct (30.3-42.9) % MCH (28-32) pg RDW (13.2-15.2) % Lymph % (Auto) (13.4-35.0) % Lymph # (Auto) (1.2-5.4) K/mm3 Eos # (Auto) (0.0-0.4) K/mm3 Seg Neutrophils % (40.0-70.0) % Seg Neutrophils # (1.8-7.7) K/mm3 Chloride 95.6 L (98-107) mmol/L BUN 108 H (7-17) mg/dL Creatinine 3.9 H (0.6-1.2) mg/dL Glucose 129 H (65-100) mg/dL POC Glucose 182 H 160 H (70-105) mg/dL 09/07/20 09/07/20 09/07/20 Range/Units 05:36 12:09 Unknown WBC 13.6 H (4.5-11.0) K/mm3 RBC 3.14 L (3.65-5.03) M/mm3 Hgb 8.1 L (10.1-14.3) gm/dl Hct 25.2 L (30.3-42.9) % MCH 26 L (28-32) pg RDW 15.5 H (13.2-15.2) % Lymph % (Auto) 6.0 L (13.4-35.0) % Lymph # (Auto) 0.8 L (1.2-5.4) K/mm3 Eos # (Auto) 0.5 H (0.0-0.4) K/mm3 Seg Neutrophils % 85.5 H (40.0-70.0) % Seg Neutrophils # 11.6 H (1.8-7.7) K/mm3 Chloride (98-107) mmol/L BUN (7-17) mg/dL Creatinine (0.6-1.2) mg/dL Glucose (65-100) mg/dL POC Glucose 151 H 172 H (70-105) mg/dL HEART Score - HEART Score Troponin: Troponin T 0.057 ng/mL (0.00-0.029) H 08/25/20 11:23
--- NOTE | 2020-09-07 16:51 | Progress Note ---
Assessment and Plan Episodic bradycardia noted on telemetry * Due to episodic bradycardia hold all AV denia blocking agents, recommend avoid QT prolonging medications. * Currently on dopamine drip for hypotension. Standing orders for atropine 0.5 mg every 5 minutes PRN not to exceed 3 mg within 24 hours. * Review of telemetry shows sinus rhythm with no repeated episodes of bradycardia. S/p cardiac arrest with ROSC * Prevailing rhythm during arrest was asystole. Patient is currentlyintubated, off sedation and continues to be unresponsive. 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 Neurology is following. Mild cardiomyopathy * Echocardiogram reviewed: LVEF is 40 to 45%. LV is normal size. LV SF is mildly decreased. Mild diastolic dysfunction. Right ventricle is mildly dilated. Moderate pulmonary hypertension RVSP 45 mmHg. * Continue GDMT: Aspirin 81, atorvastatin 40, metoprolol 2.5 mg IV every 6, no NITIN/ARB in setting of FLORIDALMA. General surgery is requesting cardiac risk assessment: Patient evaluated with revised cardiac risk index: Class IV risk. 15% 30-day risk of , [place] or cardiac arrest. Per hospitalist discussion with family, patient remains full code and will pursue trach and PEG on Friday. Will follow on as-needed basis. This patient was seen in conjunction with Dr. Gallagher who agrees with assessment and plan of care. - Patient Problems (1) Cardiac arrest Current Visit: Yes Status: Acute (2) Anoxic encephalopathy Current Visit: Yes Status: Acute (3) Multifocal pneumonia Current Visit: Yes Status: Acute (4) Acute renal failure superimposed on chronic kidney disease Current Visit: Yes Status: Acute (5) Cardiomyopathy Current Visit: Yes Status: Chronic (6) Diabetes Current Visit: Yes Status: Chronic (7) Hypertension Current Visit: Yes Status: Chronic (8) DVT prophylaxis Current Visit: Yes Status: Acute (9) Anemia Current Visit: Yes Status: Chronic Qualifiers: Anemia type: unspecified type Qualified Code(s): D64.9 - Anemia, unspecified Subjective Date of service: 09/07/20 Principal diagnosis: Ac. hypoxemic resp failure; Cardiac arrest; AMS; AE-CHF; Hyperkalemia; FLORIDALMA Interval history: Patient is currently intubated off sedation and unresponsive. Telemetry reviewed: Sinus rhythm 73. No events Objective Last Vital Signs Temp 99 F 09/07/20 16:00 Pulse 79 09/07/20 16:44 Resp 20 09/07/20 16:00 BP 127/50 09/07/20 16:44 Pulse Ox 98 09/07/20 16:44 - Physical Examination General: Other (Intubated unresponsive) HEENT: Positive: Normocephaly, Mucus Membranes Moist Neck: Positive: neck supple, trachea midline Cardiac: Positive: Reg Rate and Rhythm, S1/S2 Lungs: Positive: Ventilated Respirations Neuro: Positive: Other (Intubated unresponsive. Profound anoxic injury confirmed by MRI) Abdomen: Positive: Unremarkable Skin: Negative: Rash Musculoskeletal: other (Intubated unresponsive) Extremities: Present: upper extr. pulses, lower extr. pulses. Absent: edema - Labs and Meds CBC 09/07/20 Range/Units Unknown WBC 13.6 H (4.5-11.0) K/mm3 RBC 3.14 L (3.65-5.03) M/mm3 Hgb 8.1 L (10.1-14.3) gm/dl Hct 25.2 L (30.3-42.9) % Plt Count 413 (140-440) K/mm3 Lymph # (Auto) 0.8 L (1.2-5.4) K/mm3 [place] # (Auto) 0.6 (0.0-0.8) K/mm3 Eos # (Auto) 0.5 H (0.0-0.4) K/mm3 Baso # (Auto) 0.0 (0.0-0.1) K/mm3 Comprehensive Metabolic Panel 09/07/20 Range/Units 04:00 Sodium 137 (137-145) mmol/L Potassium 3.8 (3.6-5.0) mmol/L Chloride 95.6 L (98-107) mmol/L Carbon Dioxide 26 (22-30) mmol/L BUN 108 H (7-17) mg/dL Creatinine 3.9 H (0.6-1.2) mg/dL Glucose 129 H (65-100) mg/dL Calcium 8.8 (8.4-10.2) mg/dL - Imaging and Cardiology EKG: report reviewed, image reviewed Echo: report reviewed (Echocardiogram reviewed: LVEF is 40 to 45%. LV is normal size. LV SF is mildly decreased. Mild diastolic dysfunction. Right ventricle is mildly dilated. Moderate pulmonary hypertension RVSP 45 mmHg. ) - Telemetry EKG Rhythm: Sinus Rhythm - EKG Sinus rhythms and dysrhythmias: sinus bradycardia - Allied health notes Allied health notes reviewed: nursing
[2020-09-07] MEDS: INSULIN GLARGINE 100 UNITS/ML SUB-Q SCH (21:41)
[2020-09-08] MEDS: DOPamine/D5W 800 MG/250 ML 800 MG/250 ML BAG IV SCH ×2 (02:41→20:13)
[2020-09-08] MEDS: hydrALAZINE 25 MG TAB PO SCH (06:53)
[2020-09-08] MEDS: INSULIN LISPRO 100 UNIT/ML SUB-Q SCH ×3 (06:53→18:03)
[2020-09-08] MEDS: VALPROATE SODIUM 750 MG in SODIUM CHLORIDE 0.9% 100 ML IV SCH ×3 (07:35→22:02)
--- NOTE | 2020-09-08 08:33 | Progress Note ---
Assessment and Plan Acute hypoxemic respiratory failure Cardiac arrest with ROSC Acute encephalopathy Multifocal pneumonia Possible bilateral pulmonary edema Congestive heart failure with an acute exacerbation Anemia Hyperkalemia Lactic acidosis Acute kidney injury Elevated serum transaminases Non-ST elevation NM Oropharyngeal dysphagia -AEDs, monitor hemodynamics closely -Appears to have swollen tongue possibly from seizure activity. -Low Depakote levels- await Neurology re dose adjustment -Continue to monitor off antibiotics for now. Trend temperature curve and WCC -Plan for trach and PEG placement per family wishes - continue to titrate supplemental oxygen for target sPO2 89-92% - VAP bundle addressed - continue lung protective strategies - continue bronchodilators with pulmonary hygiene per RT - continue Daily SAT and SBT assessment as tolerated - continue accuchecks with glycemic control per SSI (while critically ill target blood glucose of 140-180 mg/dL; avoid hypoglycemia) - avoid nephrotoxins, renally dose all medications - continue to avoid benzodiazepines, reduce the possibility of delirium - enteric nutritional support at goal rate as tolerated -Stress ulcer and VTE prophylaxis - PT/OT/ROM exercises - continue mobility, off loading and frequent turning per facility protocol for pressure ulcer prevention - continue to monitor hemodynamics closely - continue other care per attending / other consultants COVID SPECIFIC INTERVENTIONS - COVID-19 PCR negative CONDITION: CRITICAL PROGNOSIS: GUARDED CODE STATUS: FULL CODE The high probability of a clinically significant, sudden or life-threatening deterioration of the [respiratory, cardiovascular & neurologic] system(s) requir ed my full and direct attention, intervention and personal management. The aggregate critical care time was [33] minutes without overlap. Time includes spent on; [x] Data Review and interpretation [x] Patient assessment and monitoring of vital signs [x] Documentation [x] Medication orders and management Subjective Date of service: 09/08/20 Principal diagnosis: Ac. hypoxemic resp failure; Cardiac arrest; AMS; AE-CHF; Hyperkalemia; FLORIDALMA Interval history: Patient is seen today for: Acute hypoxemic respiratory failure; Cardiac arrest with ROSC; Acute encephalopathy; Multifocal pneumonia; pulmonary edema; AE-CHF; Hyperkalemia; FLORIDALMA; NSTEMI Seen and examined at bedside; 24hour events reviewed; nursing and respiratory care staff consulted; no adverse overnight events reported to me; resting in bed; remains on MVS; AMS is persistent; afebrile; no emesis or overt aspiration and no seizures Tolerating PSV trials, awaiting trach and PEG placement She remains on Dopamine via RIJ CVL, she has a Christina catheter in fro urinary retention Reported seizure like activity( orofacial twitching)-currently on Depakote, Vimpat and Keppra On Midazolam at 3mg Objective Vital Signs - 12hr 09/07/20 09/07/20 09/07/20 21:00 21:30 21:40 Temperature Pulse Rate 76 77 77 Pulse Rate [ From Monitor] Respiratory 17 15 Rate Blood Pressure 140/51 140/54 140/54 O2 Sat by Pulse 97 97 Oximetry 09/07/20 09/07/20 09/07/20 22:00 22:18 22:30 Temperature Pulse Rate 78 80 79 Pulse Rate [ From Monitor] Respiratory 23 12 17 Rate Blood Pressure 143/54 146/53 114/40 O2 Sat by Pulse 97 98 97 Oximetry 09/07/20 09/07/20 09/07/20 23:00 23:22 23:30 Temperature 98 F Pulse Rate 79 78 Pulse Rate [ From Monitor] Respiratory 16 19 Rate Blood Pressure 125/45 135/49 O2 Sat by Pulse 97 97 Oximetry 09/07/20 09/08/20 09/08/20 23:45 00:00 00:30 Temperature Pulse Rate 77 79 78 Pulse Rate [ 78 From Monitor] Respiratory 20 20 Rate Blood Pressure 113/45 144/57 146/56 O2 Sat by Pulse 99 97 97 Oximetry 09/08/20 09/08/20 09/08/20 01:00 01:30 02:00 Temperature Pulse Rate 77 78 76 Pulse Rate [ From Monitor] Respiratory 19 16 13 Rate Blood Pressure 144/57 149/55 143/52 O2 Sat by Pulse 97 97 97 Oximetry 09/08/20 09/08/20 09/08/20 02:30 03:00 03:01 Temperature 98.8 F Pulse Rate 78 73 Pulse Rate [ From Monitor] Respiratory 17 18 Rate Blood Pressure 136/48 149/56 O2 Sat by Pulse 97 97 Oximetry 09/08/20 09/08/20 09/08/20 03:30 04:00 04:04 Temperature 98.8 F Pulse Rate 75 76 75 Pulse Rate [ 76 From Monitor] Respiratory 17 Rate Blood Pressure 156/63 157/61 O2 Sat by Pulse 96 99 98 Oximetry 09/08/20 09/08/20 09/08/20 04:06 04:30 05:00 Temperature Pulse Rate 74 75 75 Pulse Rate [ From Monitor] Respiratory 12 13 14 Rate Blood Pressure 153/63 161/62 O2 Sat by Pulse 98 98 Oximetry 09/08/20 09/08/20 09/08/20 05:30 06:00 06:30 Temperature Pulse Rate 75 61 65 Pulse Rate [ From Monitor] Respiratory 17 16 19 Rate Blood Pressure 159/62 161/62 143/57 O2 Sat by Pulse 97 Oximetry 09/08/20 09/08/20 09/08/20 06:53 07:00 07:30 Temperature Pulse Rate 71 70 69 Pulse Rate [ From Monitor] Respiratory 11 L 9 L Rate Blood Pressure 107/44 122/42 114/47 O2 Sat by Pulse 98 98 Oximetry 09/08/20 09/08/20 07:32 08:00 Temperature 98.6 F Pulse Rate 68 79 Pulse Rate [ 78 From Monitor] Respiratory 20 Rate Blood Pressure 114/47 150/55 O2 Sat by Pulse 99 97 Oximetry Constitutional: no acute distress, other (elderly obese female with no patient ventilator dyssynchrony) Eyes: non-icteric ENT: oropharynx moist, oropharyngeal exudate pre (clear, frothy), other (ETT 24 cm DIMAS, large tongue- apparently had seizure like activity) Neck: supple, no lymphadenopathy, no JVD Effort: mildly labored Ascultation: Bilateral: diminished breath sounds (bases), rhonchi (scant) Percussion: Bilateral: not dull Cardiovascular: regular rate and rhythm, other (S1,S2) Gastrointestinal: normoactive bowel sounds Integumentary: normal Extremities: no cyanosis, no edema, pulses normal, no ischemia or petechiae Neurologic: pupils equal and round, unable to assess, other (facial and whole body seizures + bitting tongue) Psychiatric: other (unable to assess re: AMS) CBC and BMP: 09/07/20 Unknown 09/09/20 04:55 ABG, PT/INR, D-dimer: ABG ABG pH 7.462 (7.320-7.450) H 09/01/20 12:51 POC ABG pCO2 39.5 mmHg (32.0-48.0) 09/01/20 12:51 ABG pCO2 36.6 mm Hg 08/31/20 04:10 POC ABG pO2 102.7 mmHg (83-108) 09/01/20 12:51 ABG pO2 99.6 mm Hg (80.0-90.0) H 08/31/20 04:10 POC ABG HCO3 27.6 09/01/20 12:51 ABG O2 Saturation 98.0 (0-100) 09/01/20 12:51 PT/INR, D-dimer D-Dimer > 31288 ng/mlDDU (0-234) H 08/25/20 11:23 Abnormal lab findings: Abnormal Labs 08/25/20 08/25/20 08/25/20 11:14 11:17 11:23 WBC 11.5 H RBC 3.22 L Hgb 8.6 L Hct 27.6 L MCH 27 L MCHC RDW 15.6 H Lymph % (Auto) Lymph # (Auto) Eos # (Auto) Seg Neutrophils % Seg Neuts % (Manual) 89.0 H Lymphocytes % (Manual) 5.0 L Seg Neutrophils # Seg Neutrophils # Man 10.2 H Lymphocytes # (Manual) 0.6 L D-Dimer ABG pH 7.290 L POC ABG pO2 161.1 H ABG pO2 ABG HCO3 ABG Hemoglobin 8.9 L ABG Oxyhemoglobin 98.6 H ABG Sodium 135.2 L ABG Potassium 5.9 H ABG Glucose 210 H Oxyhemoglobin Carboxyhemoglobin 0.4 L Sodium Potassium Chloride Carbon Dioxide BUN Creatinine Glucose POC Glucose Lactic Acid Calcium Phosphorus Magnesium AST ALT Troponin T C-Reactive Protein Total Protein Albumin Arterial Blood Glucose 210 H Arterial Blood Ionized Calcium 4.4 L Urine WBC (Auto) 31.0 H Urine Creatinine Valproic Acid 08/25/20 08/25/20 08/25/20 11:23 11:23 11:23 WBC RBC Hgb Hct MCH MCHC RDW Lymph % (Auto) Lymph # (Auto) Eos # (Auto) Seg Neutrophils % Seg Neuts % (Manual) Lymphocytes % (Manual) Seg Neutrophils # Seg Neutrophils # Man Lymphocytes # (Manual) D-Dimer > 33012 H ABG pH POC ABG pO2 ABG pO2 ABG HCO3 ABG Hemoglobin ABG Oxyhemoglobin ABG Sodium ABG Potassium ABG Glucose Oxyhemoglobin Carboxyhemoglobin Sodium Potassium 6.4 H* Chloride Carbon Dioxide 21 L BUN 52 H Creatinine 3.5 H Glucose 194 H POC Glucose Lactic Acid 3.30 H* Calcium 8.1 L Phosphorus Magnesium AST 103 H ALT 77 H Troponin T 0.057 H C-Reactive Protein Total Protein 5.8 L Albumin 3.4 L Arterial Blood Glucose Arterial Blood Ionized Calcium Urine WBC (Auto) Urine Creatinine Valproic Acid 08/25/20 08/25/20 08/25/20 13:51 15:45 20:34 WBC RBC Hgb Hct MCH MCHC RDW Lymph % (Auto) Lymph # (Auto) Eos # (Auto) Seg Neutrophils % Seg Neuts % (Manual) Lymphocytes % (Manual) Seg Neutrophils # Seg Neutrophils # Man Lymphocytes # (Manual) D-Dimer ABG pH POC ABG pO2 66.3 L ABG pO2 ABG HCO3 ABG Hemoglobin 9.1 L ABG Oxyhemoglobin 92.5 L ABG Sodium ABG Potassium ABG Glucose 225 H Oxyhemoglobin Carboxyhemoglobin Sodium Potassium Chloride Carbon Dioxide BUN Creatinine Glucose POC Glucose 188 H 233 H Lactic Acid Calcium Phosphorus Magnesium AST ALT Troponin T C-Reactive Protein Total Protein Albumin Arterial Blood Glucose 225 H Arterial Blood Ionized Calcium 4.4 L Urine WBC (Auto) Urine Creatinine Valproic Acid 08/26/20 08/26/20 08/26/20 04:14 05:04 05:04 WBC 17.9 H RBC 3.05 L Hgb 8.3 L Hct 25.6 L MCH 27 L MCHC RDW 15.3 H Lymph % (Auto) Lymph # (Auto) Eos # (Auto) Seg Neutrophils % Seg Neuts % (Manual) 96.0 H Lymphocytes % (Manual) 1.0 L Seg Neutrophils # Seg Neutrophils # Man 17.2 H Lymphocytes # (Manual) 0.2 L D-Dimer ABG pH POC ABG pO2 131.3 H ABG pO2 ABG HCO3 ABG Hemoglobin 8.6 L ABG Oxyhemoglobin 98.2 H ABG Sodium ABG Potassium ABG Glucose 182 H Oxyhemoglobin Carboxyhemoglobin 0.2 L Sodium Potassium Chloride Carbon Dioxide BUN 56 H Creatinine 3.4 H Glucose 187 H POC Glucose Lactic Acid Calcium 8.3 L Phosphorus Magnesium AST 54 H ALT 57 H Troponin T C-Reactive Protein Total Protein 5.4 L Albumin 2.9 L Arterial Blood Glucose 182 H Arterial Blood Ionized Calcium 4.3 L Urine WBC (Auto) Urine Creatinine Valproic Acid 08/26/20 08/26/20 08/26/20 05:40 07:36 11:54 WBC RBC Hgb Hct MCH MCHC RDW Lymph % (Auto) Lymph # (Auto) Eos # (Auto) Seg Neutrophils % Seg Neuts % (Manual) Lymphocytes % (Manual) Seg Neutrophils # Seg Neutrophils # Man Lymphocytes # (Manual) D-Dimer ABG pH POC ABG pO2 ABG pO2 ABG HCO3 ABG Hemoglobin ABG Oxyhemoglobin ABG Sodium ABG Potassium ABG Glucose Oxyhemoglobin Carboxyhemoglobin Sodium Potassium Chloride Carbon Dioxide BUN Creatinine Glucose POC Glucose 179 H 171 H 190 H Lactic Acid Calcium Phosphorus Magnesium AST ALT Troponin T C-Reactive Protein Total Protein Albumin Arterial Blood Glucose Arterial Blood Ionized Calcium Urine WBC (Auto) Urine Creatinine Valproic Acid 08/26/20 08/26/20 08/26/20 15:14 17:00 18:50 WBC RBC Hgb Hct MCH MCHC RDW Lymph % (Auto) Lymph # (Auto) Eos # (Auto) Seg Neutrophils % Seg Neuts % (Manual) Lymphocytes % (Manual) Seg Neutrophils # Seg Neutrophils # Man Lymphocytes # (Manual) D-Dimer ABG pH POC ABG pO2 ABG pO2 ABG HCO3 ABG Hemoglobin ABG Oxyhemoglobin ABG Sodium ABG Potassium ABG Glucose Oxyhemoglobin Carboxyhemoglobin Sodium Potassium Chloride Carbon Dioxide BUN Creatinine Glucose POC Glucose 158 H Lactic Acid Calcium Phosphorus Magnesium AST ALT Troponin T C-Reactive Protein 7.80 H Total Protein Albumin Arterial Blood Glucose Arterial Blood Ionized Calcium Urine WBC (Auto) Urine Creatinine 67.4 H Valproic Acid 08/26/20 08/27/20 08/27/20 22:01 04:10 05:12 WBC RBC Hgb Hct MCH MCHC RDW Lymph % (Auto) Lymph # (Auto) Eos # (Auto) Seg Neutrophils % Seg Neuts % (Manual) Lymphocytes % (Manual) Seg Neutrophils # Seg Neutrophils # Man Lymphocytes # (Manual) D-Dimer ABG pH 7.454 H POC ABG pO2 74.9 L ABG pO2 ABG HCO3 ABG Hemoglobin 7.9 L ABG Oxyhemoglobin ABG Sodium ABG Potassium ABG Glucose 117 H Oxyhemoglobin Carboxyhemoglobin Sodium Potassium Chloride Carbon Dioxide BUN Creatinine Glucose POC Glucose 122 H 117 H Lactic Acid Calcium Phosphorus Magnesium AST ALT Troponin T C-Reactive Protein Total Protein Albumin Arterial Blood Glucose 117 H Arterial Blood Ionized Calcium 4.4 L Urine WBC (Auto) Urine Creatinine Valproic Acid 08/27/20 08/27/20 08/27/20 07:24 07:24 11:08 WBC 12.7 H RBC 2.92 L Hgb 8.1 L Hct 24.4 L MCH MCHC RDW 15.4 H Lymph % (Auto) 5.9 L Lymph # (Auto) 0.8 L Eos # (Auto) Seg Neutrophils % 86.9 H Seg Neuts % (Manual) Lymphocytes % (Manual) Seg Neutrophils # 11.0 H Seg Neutrophils # Man Lymphocytes # (Manual) D-Dimer ABG pH POC ABG pO2 ABG pO2 ABG HCO3 ABG Hemoglobin ABG Oxyhemoglobin ABG Sodium ABG Potassium ABG Glucose Oxyhemoglobin Carboxyhemoglobin Sodium Potassium Chloride Carbon Dioxide BUN 60 H Creatinine 3.6 H Glucose 135 H POC Glucose 139 H Lactic Acid Calcium Phosphorus Magnesium AST ALT Troponin T C-Reactive Protein Total Protein 5.3 L Albumin 2.6 L Arterial Blood Glucose Arterial Blood Ionized Calcium Urine WBC (Auto) Urine Creatinine Valproic Acid 08/27/20 08/27/20 08/27/20 11:19 17:31 23:25 WBC RBC Hgb Hct MCH MCHC RDW Lymph % (Auto) Lymph # (Auto) Eos # (Auto) Seg Neutrophils % Seg Neuts % (Manual) Lymphocytes % (Manual) Seg Neutrophils # Seg Neutrophils # Man Lymphocytes # (Manual) D-Dimer ABG pH POC ABG pO2 ABG pO2 ABG HCO3 ABG Hemoglobin ABG Oxyhemoglobin ABG Sodium ABG Potassium ABG Glucose Oxyhemoglobin Carboxyhemoglobin Sodium Potassium Chloride Carbon Dioxide BUN Creatinine Glucose POC Glucose 143 H 140 H 123 H Lactic Acid Calcium Phosphorus Magnesium AST ALT Troponin T C-Reactive Protein Total Protein Albumin Arterial Blood Glucose Arterial Blood Ionized Calcium Urine WBC (Auto) Urine Creatinine Valproic Acid 08/28/20 08/28/20 08/28/20 03:50 04:19 04:19 WBC RBC 2.80 L Hgb 7.8 L Hct 23.6 L MCH MCHC RDW 15.8 H Lymph % (Auto) Lymph # (Auto) Eos # (Auto) Seg Neutrophils % Seg Neuts % (Manual) Lymphocytes % (Manual) Seg Neutrophils # Seg Neutrophils # Man Lymphocytes # (Manual) D-Dimer ABG pH 7.329 L POC ABG pO2 ABG pO2 76.7 L ABG HCO3 27.0 H ABG Hemoglobin 7.5 L ABG Oxyhemoglobin ABG Sodium ABG Potassium ABG Glucose Oxyhemoglobin 93.6 L Carboxyhemoglobin Sodium 135 L Potassium Chloride Carbon Dioxide BUN 64 H Creatinine 3.8 H Glucose 143 H POC Glucose Lactic Acid Calcium 8.0 L Phosphorus Magnesium AST ALT Troponin T C-Reactive Protein Total Protein 4.8 L Albumin 2.4 L Arterial Blood Glucose Arterial Blood Ionized Calcium Urine WBC (Auto) Urine Creatinine Valproic Acid 08/28/20 08/28/20 08/28/20 05:35 11:22 17:18 WBC RBC Hgb Hct MCH MCHC RDW Lymph % (Auto) Lymph # (Auto) Eos # (Auto) Seg Neutrophils % Seg Neuts % (Manual) Lymphocytes % (Manual) Seg Neutrophils # Seg Neutrophils # Man Lymphocytes # (Manual) D-Dimer ABG pH POC ABG pO2 ABG pO2 ABG HCO3 ABG Hemoglobin ABG Oxyhemoglobin ABG Sodium ABG Potassium ABG Glucose Oxyhemoglobin Carboxyhemoglobin Sodium Potassium Chloride Carbon Dioxide BUN Creatinine Glucose POC Glucose 147 H 182 H 216 H Lactic Acid Calcium Phosphorus Magnesium AST ALT Troponin T C-Reactive Protein Total Protein Albumin Arterial Blood Glucose Arterial Blood Ionized Calcium Urine WBC (Auto) Urine Creatinine Valproic Acid 08/28/20 08/28/20 08/29/20 21:04 23:20 04:32 WBC RBC Hgb Hct MCH MCHC RDW Lymph % (Auto) Lymph # (Auto) Eos # (Auto) Seg Neutrophils % Seg Neuts % (Manual) Lymphocytes % (Manual) Seg Neutrophils # Seg Neutrophils # Man Lymphocytes # (Manual) D-Dimer ABG pH POC ABG pO2 ABG pO2 ABG HCO3 ABG Hemoglobin ABG Oxyhemoglobin ABG Sodium ABG Potassium ABG Glucose Oxyhemoglobin Carboxyhemoglobin Sodium 135 L Potassium Chloride 96.0 L Carbon Dioxide BUN 67 H Creatinine 3.8 H Glucose 200 H POC Glucose 204 H 242 H Lactic Acid Calcium 8.2 L Phosphorus Magnesium AST ALT Troponin T C-Reactive Protein Total Protein Albumin Arterial Blood Glucose Arterial Blood Ionized Calcium Urine WBC (Auto) Urine Creatinine Valproic Acid 08/29/20 08/29/20 08/29/20 04:32 04:50 04:59 WBC RBC 3.25 L Hgb 9.0 L Hct 27.0 L MCH MCHC RDW 16.1 H Lymph % (Auto) Lymph # (Auto) Eos # (Auto) Seg Neutrophils % Seg Neuts % (Manual) Lymphocytes % (Manual) Seg Neutrophils # Seg Neutrophils # Man Lymphocytes # (Manual) D-Dimer ABG pH POC ABG pO2 ABG pO2 ABG HCO3 ABG Hemoglobin 8.8 L ABG Oxyhemoglobin ABG Sodium ABG Potassium ABG Glucose Oxyhemoglobin Carboxyhemoglobin Sodium Potassium Chloride Carbon Dioxide BUN Creatinine Glucose POC Glucose 201 H Lactic Acid Calcium Phosphorus Magnesium AST ALT Troponin T C-Reactive Protein Total Protein Albumin Arterial Blood Glucose Arterial Blood Ionized Calcium Urine WBC (Auto) Urine Creatinine Valproic Acid 08/29/20 08/29/20 08/29/20 11:10 11:28 17:50 WBC RBC Hgb Hct MCH MCHC RDW Lymph % (Auto) Lymph # (Auto) Eos # (Auto) Seg Neutrophils % Seg Neuts % (Manual) Lymphocytes % (Manual) Seg Neutrophils # Seg Neutrophils # Man Lymphocytes # (Manual) D-Dimer ABG pH POC ABG pO2 ABG pO2 78.7 L ABG HCO3 26.6 H ABG Hemoglobin 9.8 L ABG Oxyhemoglobin ABG Sodium ABG Potassium ABG Glucose Oxyhemoglobin 94.3 L Carboxyhemoglobin Sodium Potassium Chloride Carbon Dioxide BUN Creatinine Glucose POC Glucose 219 H 203 H Lactic Acid Calcium Phosphorus Magnesium AST ALT Troponin T C-Reactive Protein Total Protein Albumin Arterial Blood Glucose Arterial Blood Ionized Calcium Urine WBC (Auto) Urine Creatinine Valproic Acid 08/29/20 08/29/20 08/30/20 21:31 23:28 04:14 WBC RBC Hgb Hct MCH MCHC RDW Lymph % (Auto) Lymph # (Auto) Eos # (Auto) Seg Neutrophils % Seg Neuts % (Manual) Lymphocytes % (Manual) Seg Neutrophils # Seg Neutrophils # Man Lymphocytes # (Manual) D-Dimer ABG pH POC ABG pO2 ABG pO2 ABG HCO3 ABG Hemoglobin ABG Oxyhemoglobin ABG Sodium ABG Potassium ABG Glucose Oxyhemoglobin Carboxyhemoglobin Sodium 132 L Potassium Chloride 94.8 L Carbon Dioxide BUN 68 H Creatinine 3.7 H Glucose 214 H POC Glucose 204 H 215 H Lactic Acid Calcium Phosphorus Magnesium AST ALT Troponin T C-Reactive Protein Total Protein Albumin Arterial Blood Glucose Arterial Blood Ionized Calcium Urine WBC (Auto) Urine Creatinine Valproic Acid 08/30/20 08/30/20 08/30/20 05:10 11:33 17:32 WBC RBC Hgb Hct MCH MCHC RDW Lymph % (Auto) Lymph # (Auto) Eos # (Auto) Seg Neutrophils % Seg Neuts % (Manual) Lymphocytes % (Manual) Seg Neutrophils # Seg Neutrophils # Man Lymphocytes # (Manual) D-Dimer ABG pH POC ABG pO2 ABG pO2 ABG HCO3 ABG Hemoglobin ABG Oxyhemoglobin ABG Sodium ABG Potassium ABG Glucose Oxyhemoglobin Carboxyhemoglobin Sodium Potassium Chloride Carbon Dioxide BUN Creatinine Glucose POC Glucose 210 H 194 H 202 H Lactic Acid Calcium Phosphorus Magnesium AST ALT Troponin T C-Reactive Protein Total Protein Albumin Arterial Blood Glucose Arterial Blood Ionized Calcium Urine WBC (Auto) Urine Creatinine Valproic Acid 08/30/20 08/30/20 08/30/20 21:39 23:21 Unknown WBC RBC Hgb Hct MCH MCHC RDW Lymph % (Auto) Lymph # (Auto) Eos # (Auto) Seg Neutrophils % Seg Neuts % (Manual) Lymphocytes % (Manual) Seg Neutrophils # Seg Neutrophils # Man Lymphocytes # (Manual) D-Dimer ABG pH POC ABG pO2 ABG pO2 99.0 H ABG HCO3 ABG Hemoglobin 9.8 L ABG Oxyhemoglobin ABG Sodium ABG Potassium ABG Glucose Oxyhemoglobin Carboxyhemoglobin Sodium Potassium Chloride Carbon Dioxide BUN Creatinine Glucose POC Glucose 199 H 209 H Lactic Acid Calcium Phosphorus Magnesium AST ALT Troponin T C-Reactive Protein Total Protein Albumin Arterial Blood Glucose Arterial Blood Ionized Calcium Urine WBC (Auto) Urine Creatinine Valproic Acid 08/31/20 08/31/20 08/31/20 04:10 05:19 10:57 WBC RBC Hgb Hct MCH MCHC RDW Lymph % (Auto) Lymph # (Auto) Eos # (Auto) Seg Neutrophils % Seg Neuts % (Manual) Lymphocytes % (Manual) Seg Neutrophils # Seg Neutrophils # Man Lymphocytes # (Manual) D-Dimer ABG pH 7.451 H POC ABG pO2 ABG pO2 99.6 H ABG HCO3 ABG Hemoglobin 8.4 L ABG Oxyhemoglobin ABG Sodium ABG Potassium ABG Glucose Oxyhemoglobin Carboxyhemoglobin Sodium 133 L Potassium Chloride 96.4 L Carbon Dioxide BUN 74 H Creatinine 3.8 H Glucose 201 H POC Glucose 182 H Lactic Acid Calcium 7.6 L Phosphorus Magnesium AST ALT Troponin T C-Reactive Protein Total Protein Albumin Arterial Blood Glucose Arterial Blood Ionized Calcium Urine WBC (Auto) Urine Creatinine Valproic Acid 08/31/20 08/31/20 08/31/20 10:57 12:32 17:15 WBC 11.4 H RBC 3.24 L Hgb 8.5 L Hct 26.6 L MCH 26 L MCHC RDW 15.6 H Lymph % (Auto) Lymph # (Auto) Eos # (Auto) Seg Neutrophils % Seg Neuts % (Manual) Lymphocytes % (Manual) Seg Neutrophils # Seg Neutrophils # Man Lymphocytes # (Manual) D-Dimer ABG pH POC ABG pO2 ABG pO2 ABG HCO3 ABG Hemoglobin ABG Oxyhemoglobin ABG Sodium ABG Potassium ABG Glucose Oxyhemoglobin Carboxyhemoglobin Sodium Potassium Chloride Carbon Dioxide BUN Creatinine Glucose POC Glucose 217 H 203 H Lactic Acid Calcium Phosphorus Magnesium AST ALT Troponin T C-Reactive Protein Total Protein Albumin Arterial Blood Glucose Arterial Blood Ionized Calcium Urine WBC (Auto) Urine Creatinine Valproic Acid 09/01/20 09/01/20 09/01/20 00:06 05:05 09:41 WBC RBC Hgb Hct MCH MCHC RDW Lymph % (Auto) Lymph # (Auto) Eos # (Auto) Seg Neutrophils % Seg Neuts % (Manual) Lymphocytes % (Manual) Seg Neutrophils # Seg Neutrophils # Man Lymphocytes # (Manual) D-Dimer ABG pH POC ABG pO2 ABG pO2 ABG HCO3 ABG Hemoglobin ABG Oxyhemoglobin ABG Sodium ABG Potassium ABG Glucose Oxyhemoglobin Carboxyhemoglobin Sodium 134 L Potassium Chloride 95.2 L Carbon Dioxide BUN 81 H Creatinine 3.7 H Glucose 201 H POC Glucose 223 H 225 H Lactic Acid Calcium Phosphorus 4.60 H Magnesium 2.40 H AST ALT Troponin T C-Reactive Protein Total Protein Albumin Arterial Blood Glucose Arterial Blood Ionized Calcium Urine WBC (Auto) Urine Creatinine Valproic Acid 09/01/20 09/01/20 09/01/20 09:41 12:51 13:08 WBC 11.5 H RBC 3.58 L Hgb 9.2 L Hct 29.7 L MCH 26 L MCHC RDW 16.0 H Lymph % (Auto) Lymph # (Auto) Eos # (Auto) Seg Neutrophils % Seg Neuts % (Manual) Lymphocytes % (Manual) Seg Neutrophils # Seg Neutrophils # Man Lymphocytes # (Manual) D-Dimer ABG pH 7.462 H POC ABG pO2 ABG pO2 ABG HCO3 ABG Hemoglobin 9.5 L ABG Oxyhemoglobin ABG Sodium 130.4 L ABG Potassium ABG Glucose 208 H Oxyhemoglobin Carboxyhemoglobin 0.4 L Sodium Potassium Chloride Carbon Dioxide BUN Creatinine Glucose POC Glucose 182 H Lactic Acid Calcium Phosphorus Magnesium AST ALT Troponin T C-Reactive Protein Total Protein Albumin Arterial Blood Glucose 208 H Arterial Blood Ionized Calcium 4.5 L Urine WBC (Auto) Urine Creatinine Valproic Acid 09/01/20 09/01/20 09/02/20 18:34 23:14 05:22 WBC RBC Hgb Hct MCH MCHC RDW Lymph % (Auto) Lymph # (Auto) Eos # (Auto) Seg Neutrophils % Seg Neuts % (Manual) Lymphocytes % (Manual) Seg Neutrophils # Seg Neutrophils # Man Lymphocytes # (Manual) D-Dimer ABG pH POC ABG pO2 ABG pO2 ABG HCO3 ABG Hemoglobin ABG Oxyhemoglobin ABG Sodium ABG Potassium ABG Glucose Oxyhemoglobin Carboxyhemoglobin Sodium Potassium Chloride Carbon Dioxide BUN Creatinine Glucose POC Glucose 183 H 181 H 178 H Lactic Acid Calcium Phosphorus Magnesium AST ALT Troponin T C-Reactive Protein Total Protein Albumin Arterial Blood Glucose Arterial Blood Ionized Calcium Urine WBC (Auto) Urine Creatinine Valproic Acid 09/02/20 09/02/20 09/02/20 07:35 11:16 17:39 WBC RBC Hgb Hct MCH MCHC RDW Lymph % (Auto) Lymph # (Auto) Eos # (Auto) Seg Neutrophils % Seg Neuts % (Manual) Lymphocytes % (Manual) Seg Neutrophils # Seg Neutrophils # Man Lymphocytes # (Manual) D-Dimer ABG pH POC ABG pO2 ABG pO2 ABG HCO3 ABG Hemoglobin ABG Oxyhemoglobin ABG Sodium ABG Potassium ABG Glucose Oxyhemoglobin Carboxyhemoglobin Sodium 135 L Potassium Chloride 96.0 L Carbon Dioxide BUN 88 H Creatinine 3.7 H Glucose 187 H POC Glucose 228 H 165 H Lactic Acid Calcium Phosphorus Magnesium AST ALT Troponin T C-Reactive Protein Total Protein Albumin Arterial Blood Glucose Arterial Blood Ionized Calcium Urine WBC (Auto) Urine Creatinine Valproic Acid 09/02/20 09/03/20 09/03/20 23:24 05:35 08:31 WBC 18.5 H RBC 2.80 L Hgb 7.8 L Hct 22.7 L D MCH MCHC 35 H RDW 15.3 H Lymph % (Auto) Lymph # (Auto) Eos # (Auto) Seg Neutrophils % Seg Neuts % (Manual) Lymphocytes % (Manual) Seg Neutrophils # Seg Neutrophils # Man Lymphocytes # (Manual) D-Dimer ABG pH POC ABG pO2 ABG pO2 ABG HCO3 ABG Hemoglobin ABG Oxyhemoglobin ABG Sodium ABG Potassium ABG Glucose Oxyhemoglobin Carboxyhemoglobin Sodium Potassium Chloride Carbon Dioxide BUN Creatinine Glucose POC Glucose 167 H 180 H Lactic Acid Calcium Phosphorus Magnesium AST ALT Troponin T C-Reactive Protein Total Protein Albumin Arterial Blood Glucose Arterial Blood Ionized Calcium Urine WBC (Auto) Urine Creatinine Valproic Acid 09/03/20 09/03/20 09/03/20 08:31 12:02 17:05 WBC RBC Hgb Hct MCH MCHC RDW Lymph % (Auto) Lymph # (Auto) Eos # (Auto) Seg Neutrophils % Seg Neuts % (Manual) Lymphocytes % (Manual) Seg Neutrophils # Seg Neutrophils # Man Lymphocytes # (Manual) D-Dimer ABG pH POC ABG pO2 ABG pO2 ABG HCO3 ABG Hemoglobin ABG Oxyhemoglobin ABG Sodium ABG Potassium ABG Glucose Oxyhemoglobin Carboxyhemoglobin Sodium 134 L Potassium Chloride 96.6 L Carbon Dioxide BUN 96 H Creatinine 3.7 H Glucose 190 H POC Glucose 156 H 150 H Lactic Acid Calcium 8.1 L Phosphorus Magnesium AST ALT Troponin T C-Reactive Protein Total Protein Albumin Arterial Blood Glucose Arterial Blood Ionized Calcium Urine WBC (Auto) Urine Creatinine Valproic Acid 09/03/20 09/04/20 09/04/20 23:31 05:23 09:49 WBC RBC Hgb Hct MCH MCHC RDW Lymph % (Auto) Lymph # (Auto) Eos # (Auto) Seg Neutrophils % Seg Neuts % (Manual) Lymphocytes % (Manual) Seg Neutrophils # Seg Neutrophils # Man Lymphocytes # (Manual) D-Dimer ABG pH POC ABG pO2 ABG pO2 ABG HCO3 ABG Hemoglobin ABG Oxyhemoglobin ABG Sodium ABG Potassium ABG Glucose Oxyhemoglobin Carboxyhemoglobin Sodium Potassium Chloride 97.9 L Carbon Dioxide BUN 98 H Creatinine 4.0 H Glucose 171 H POC Glucose 143 H 165 H Lactic Acid Calcium Phosphorus Magnesium AST ALT Troponin T C-Reactive Protein Total Protein Albumin Arterial Blood Glucose Arterial Blood Ionized Calcium Urine WBC (Auto) Urine Creatinine Valproic Acid 09/04/20 09/04/20 09/04/20 12:05 17:46 21:25 WBC RBC Hgb Hct MCH MCHC RDW Lymph % (Auto) Lymph # (Auto) Eos # (Auto) Seg Neutrophils % Seg Neuts % (Manual) Lymphocytes % (Manual) Seg Neutrophils # Seg Neutrophils # Man Lymphocytes # (Manual) D-Dimer ABG pH POC ABG pO2 ABG pO2 ABG HCO3 ABG Hemoglobin ABG Oxyhemoglobin ABG Sodium ABG Potassium ABG Glucose Oxyhemoglobin Carboxyhemoglobin Sodium Potassium Chloride Carbon Dioxide BUN Creatinine Glucose POC Glucose 200 H 184 H 177 H Lactic Acid Calcium Phosphorus Magnesium AST ALT Troponin T C-Reactive Protein Total Protein Albumin Arterial Blood Glucose Arterial Blood Ionized Calcium Urine WBC (Auto) Urine Creatinine Valproic Acid 09/05/20 09/05/20 09/05/20 00:06 04:34 08:40 WBC RBC Hgb Hct MCH MCHC RDW Lymph % (Auto) Lymph # (Auto) Eos # (Auto) Seg Neutrophils % Seg Neuts % (Manual) Lymphocytes % (Manual) Seg Neutrophils # Seg Neutrophils # Man Lymphocytes # (Manual) D-Dimer ABG pH POC ABG pO2 ABG pO2 ABG HCO3 ABG Hemoglobin ABG Oxyhemoglobin ABG Sodium ABG Potassium ABG Glucose Oxyhemoglobin Carboxyhemoglobin Sodium 133 L Potassium Chloride 92.5 L Carbon Dioxide BUN 99 H Creatinine 3.6 H Glucose 167 H POC Glucose 198 H 189 H Lactic Acid Calcium Phosphorus Magnesium AST ALT Troponin T C-Reactive Protein Total Protein Albumin Arterial Blood Glucose Arterial Blood Ionized Calcium Urine WBC (Auto) Urine Creatinine Valproic Acid 09/05/20 09/05/20 09/05/20 11:28 17:54 23:28 WBC RBC Hgb Hct MCH MCHC RDW Lymph % (Auto) Lymph # (Auto) Eos # (Auto) Seg Neutrophils % Seg Neuts % (Manual) Lymphocytes % (Manual) Seg Neutrophils # Seg Neutrophils # Man Lymphocytes # (Manual) D-Dimer ABG pH POC ABG pO2 ABG pO2 ABG HCO3 ABG Hemoglobin ABG Oxyhemoglobin ABG Sodium ABG Potassium ABG Glucose Oxyhemoglobin Carboxyhemoglobin Sodium Potassium Chloride Carbon Dioxide BUN Creatinine Glucose POC Glucose 171 H 169 H 163 H Lactic Acid Calcium Phosphorus Magnesium AST ALT Troponin T C-Reactive Protein Total Protein Albumin Arterial Blood Glucose Arterial Blood Ionized Calcium Urine WBC (Auto) Urine Creatinine Valproic Acid 09/06/20 09/06/20 09/06/20 05:17 11:55 18:07 WBC RBC Hgb Hct MCH MCHC RDW Lymph % (Auto) Lymph # (Auto) Eos # (Auto) Seg Neutrophils % Seg Neuts % (Manual) Lymphocytes % (Manual) Seg Neutrophils # Seg Neutrophils # Man Lymphocytes # (Manual) D-Dimer ABG pH POC ABG pO2 ABG pO2 ABG HCO3 ABG Hemoglobin ABG Oxyhemoglobin ABG Sodium ABG Potassium ABG Glucose Oxyhemoglobin Carboxyhemoglobin Sodium Potassium Chloride Carbon Dioxide BUN Creatinine Glucose POC Glucose 151 H 175 H 182 H Lactic Acid Calcium Phosphorus Magnesium AST ALT Troponin T C-Reactive Protein Total Protein Albumin Arterial Blood Glucose Arterial Blood Ionized Calcium Urine WBC (Auto) Urine Creatinine Valproic Acid 09/06/20 09/06/20 09/06/20 23:19 Unknown Unknown WBC 17.3 H RBC 3.25 L Hgb 8.7 L Hct 26.2 L MCH 27 L MCHC RDW 15.6 H Lymph % (Auto) 4.4 L Lymph # (Auto) 0.8 L Eos # (Auto) Seg Neutrophils % 89.5 H Seg Neuts % (Manual) Lymphocytes % (Manual) Seg Neutrophils # 15.5 H Seg Neutrophils # Man Lymphocytes # (Manual) D-Dimer ABG pH POC ABG pO2 ABG pO2 ABG HCO3 ABG Hemoglobin ABG Oxyhemoglobin ABG Sodium ABG Potassium ABG Glucose Oxyhemoglobin Carboxyhemoglobin Sodium 132 L Potassium Chloride 91.9 L Carbon Dioxide BUN 104 H Creatinine 3.8 H Glucose 177 H POC Glucose 160 H Lactic Acid Calcium Phosphorus Magnesium 2.60 H AST ALT Troponin T C-Reactive Protein Total Protein Albumin Arterial Blood Glucose Arterial Blood Ionized Calcium Urine WBC (Auto) Urine Creatinine Valproic Acid 09/07/20 09/07/20 09/07/20 04:00 05:36 12:09 WBC RBC Hgb Hct MCH MCHC RDW Lymph % (Auto) Lymph # (Auto) Eos # (Auto) Seg Neutrophils % Seg Neuts % (Manual) Lymphocytes % (Manual) Seg Neutrophils # Seg Neutrophils # Man Lymphocytes # (Manual) D-Dimer ABG pH POC ABG pO2 ABG pO2 ABG HCO3 ABG Hemoglobin ABG Oxyhemoglobin ABG Sodium ABG Potassium ABG Glucose Oxyhemoglobin Carboxyhemoglobin Sodium Potassium Chloride 95.6 L Carbon Dioxide BUN 108 H Creatinine 3.9 H Glucose 129 H POC Glucose 151 H 172 H Lactic Acid Calcium Phosphorus Magnesium AST ALT Troponin T C-Reactive Protein Total Protein Albumin Arterial Blood Glucose Arterial Blood Ionized Calcium Urine WBC (Auto) Urine Creatinine Valproic Acid 09/07/20 09/07/20 09/07/20 15:28 18:00 21:21 WBC RBC Hgb Hct MCH MCHC RDW Lymph % (Auto) Lymph # (Auto) Eos # (Auto) Seg Neutrophils % Seg Neuts % (Manual) Lymphocytes % (Manual) Seg Neutrophils # Seg Neutrophils # Man Lymphocytes # (Manual) D-Dimer ABG pH POC ABG pO2 ABG pO2 ABG HCO3 ABG Hemoglobin ABG Oxyhemoglobin ABG Sodium ABG Potassium ABG Glucose Oxyhemoglobin Carboxyhemoglobin Sodium Potassium Chloride Carbon Dioxide BUN Creatinine Glucose POC Glucose 153 H 112 H Lactic Acid Calcium Phosphorus Magnesium AST ALT Troponin T C-Reactive Protein Total Protein Albumin Arterial Blood Glucose Arterial Blood Ionized Calcium Urine WBC (Auto) Urine Creatinine Valproic Acid 42.9 L 09/07/20 09/07/20 09/08/20 23:09 Unknown 05:08 WBC 13.6 H RBC 3.14 L Hgb 8.1 L Hct 25.2 L MCH 26 L MCHC RDW 15.5 H Lymph % (Auto) 6.0 L Lymph # (Auto) 0.8 L Eos # (Auto) 0.5 H Seg Neutrophils % 85.5 H Seg Neuts % (Manual) Lymphocytes % (Manual) Seg Neutrophils # 11.6 H Seg Neutrophils # Man Lymphocytes # (Manual) D-Dimer ABG pH POC ABG pO2 ABG pO2 ABG HCO3 ABG Hemoglobin ABG Oxyhemoglobin ABG Sodium ABG Potassium ABG Glucose Oxyhemoglobin Carboxyhemoglobin Sodium Potassium Chloride Carbon Dioxide BUN Creatinine Glucose POC Glucose 149 H 125 H Lactic Acid Calcium Phosphorus Magnesium AST ALT Troponin T C-Reactive Protein Total Protein Albumin Arterial Blood Glucose Arterial Blood Ionized Calcium Urine WBC (Auto) Urine Creatinine Valproic Acid 09/08/20 06:00 WBC RBC Hgb Hct MCH MCHC RDW Lymph % (Auto) Lymph # (Auto) Eos # (Auto) Seg Neutrophils % Seg Neuts % (Manual) Lymphocytes % (Manual) Seg Neutrophils # Seg Neutrophils # Man Lymphocytes # (Manual) D-Dimer ABG pH POC ABG pO2 ABG pO2 ABG HCO3 ABG Hemoglobin ABG Oxyhemoglobin ABG Sodium ABG Potassium ABG Glucose Oxyhemoglobin Carboxyhemoglobin Sodium 135 L Potassium Chloride 94.0 L Carbon Dioxide BUN 110 H Creatinine 3.7 H Glucose 127 H POC Glucose Lactic Acid Calcium Phosphorus Magnesium AST ALT Troponin T C-Reactive Protein Total Protein Albumin Arterial Blood Glucose Arterial Blood Ionized Calcium Urine WBC (Auto) Urine Creatinine Valproic Acid Chest x-ray: image reviewed Allied health notes reviewed: RT
[2020-09-08] MEDS: TAMSULOSIN 0.4 MG CAP PO SCH (09:43)
[2020-09-08] MEDS: FAMOTIDINE 20 MG TAB PO SCH (09:43)
[2020-09-08] MEDS: SENNOSIDES/DOCUSATE SODIUM 8.6/50 MG TAB FEEDTUBE SCH ×2 (09:43→22:00)
[2020-09-08] MEDS: HEPARIN 5,000 UNIT/1 ML VIAL SUB-Q SCH ×2 (09:43→21:59)
[2020-09-08] MEDS: ASPIRIN 81 MG TAB CHEW PO SCH (09:43)
[2020-09-08] MEDS: levETIRAcetam 500 MG in DEXTROSE 5% IN WATER 100 ML IV SCH ×2 (09:44→22:05)
--- NOTE | 2020-09-08 10:48 | Progress Note ---
Assessment and Plan 1. Acute kidney injury: Vasomotor FLORIDALMA superimposed on CKD stage 4 in the setting Cardiac arrest. Low FeNa. CT abdomen negative for hydro. Monitor renal function. Creatinine level around 3.6. Remain non-oliguric. Renal prognosis is guarded. Avoid nephrotoxic agents. Meds dosage based on GFR. Monitor for [facility] [employer] needs. 2. FEN: Hyperkalemia, improved. Metabolic acidosis, improved. Monitor lytes. 3. Acute respiratory failure with hypoxia: 2/2 b/p pneumonia. Covid test negative. Intubated, on vent. Followed by Pulmonary. 4. S/p OOH Cardiac arrest: Prolonged downtime. Followed by Cards. 5. Bladder retention: Pt has Foreman catheter now. 6. Diabetes mellitus type 2: Follow blood glucose. 7. Bradycardia: On Dopamine. Monitor. 8. Hypertension: Monitor BP. 9. Anemia, POA: Monitor. 10. Anoxic encephalopathy: Seen by Neuro. Family is aware of slim / poor prognosis. 11. Facial twitching: Vimpat. Subjective: Patient was seen and examined at the bedside. Examination: General appearance: well-developed, well-nourished, appears stated age, intubated, on vent, FiO2 30% HEENT: ATNC, pupils not reacting to light Neck: supple Respiratory: coarse breath sounds Cardiology: regular, S1S2, no murmur Gastrointestinal: soft, bowel sounds heard, not tender Integumentary: no rash, warm and dry Neurologic: not responding Ext: no edema : foreman catheter Subjective Date of service: 09/08/20 Principal diagnosis: Ac. hypoxemic resp failure; Cardiac arrest; AMS; AE-CHF; Hyperkalemia; FLORIDALMA Objective - Vital Signs Vital signs: Vital Signs - 12hr 09/07/20 09/07/20 09/07/20 23:00 23:22 23:30 Temperature 98 F Pulse Rate 79 78 Pulse Rate [ From Monitor] Respiratory 16 19 Rate Blood Pressure 125/45 135/49 O2 Sat by Pulse 97 97 Oximetry 09/07/20 09/08/20 09/08/20 23:45 00:00 00:30 Temperature Pulse Rate 77 79 78 Pulse Rate [ 78 From Monitor] Respiratory 20 20 Rate Blood Pressure 113/45 144/57 146/56 O2 Sat by Pulse 99 97 97 Oximetry 09/08/20 09/08/20 09/08/20 01:00 01:30 02:00 Temperature Pulse Rate 77 78 76 Pulse Rate [ From Monitor] Respiratory 19 16 13 Rate Blood Pressure 144/57 149/55 143/52 O2 Sat by Pulse 97 97 97 Oximetry 09/08/20 09/08/20 09/08/20 02:30 03:00 03:01 Temperature 98.8 F Pulse Rate 78 73 Pulse Rate [ From Monitor] Respiratory 17 18 Rate Blood Pressure 136/48 149/56 O2 Sat by Pulse 97 97 Oximetry 09/08/20 09/08/20 09/08/20 03:30 04:00 04:04 Temperature 98.8 F Pulse Rate 75 76 75 Pulse Rate [ 76 From Monitor] Respiratory 17 Rate Blood Pressure 156/63 157/61 O2 Sat by Pulse 96 99 98 Oximetry 09/08/20 09/08/20 09/08/20 04:06 04:30 05:00 Temperature Pulse Rate 74 75 75 Pulse Rate [ From Monitor] Respiratory 12 13 14 Rate Blood Pressure 153/63 161/62 O2 Sat by Pulse 98 98 Oximetry 09/08/20 09/08/20 09/08/20 05:30 06:00 06:30 Temperature Pulse Rate 75 61 65 Pulse Rate [ From Monitor] Respiratory 17 16 19 Rate Blood Pressure 159/62 161/62 143/57 O2 Sat by Pulse 97 Oximetry 09/08/20 09/08/20 09/08/20 06:53 07:00 07:30 Temperature Pulse Rate 71 70 69 Pulse Rate [ From Monitor] Respiratory 11 L 9 L Rate Blood Pressure 107/44 122/42 114/47 O2 Sat by Pulse 98 98 Oximetry 09/08/20 09/08/20 07:32 08:00 Temperature 98.6 F Pulse Rate 68 79 Pulse Rate [ 78 From Monitor] Respiratory 20 Rate Blood Pressure 114/47 150/55 O2 Sat by Pulse 99 97 Oximetry - Lab 09/07/20 Unknown 09/08/20 06:00 Most recent lab results ABG pH 7.462 (7.320-7.450) H 09/01/20 12:51 ABG pCO2 36.6 mm Hg 08/31/20 04:10 ABG pO2 99.6 mm Hg (80.0-90.0) H 08/31/20 04:10 ABG HCO3 24.9 mmol/L (20.0-26.0) 08/31/20 04:10 ABG O2 Saturation 98.0 (0-100) 09/01/20 12:51 Calcium 9.0 mg/dL (8.4-10.2) 09/08/20 06:00 Phosphorus 4.60 mg/dL (2.5-4.5) H 09/01/20 09:41 Magnesium 2.60 mg/dL (1.7-2.3) H 09/06/20 Unknown Urine Creatinine 67.4 mg/dL (0.1-20.0) H 08/26/20 17:00 Urine Sodium 12 mmol/L 08/26/20 17:00 Medications & Allergies - Medications Allergies/Adverse Reactions: Allergies No Known Allergies Allergy (Verified 07/31/18 07:06) Home Medications: Home Medications Medication Instructions Recorded Confirmed Last Taken Type Albuterol Mdi (or & Nicu Only) 2 puff IH QID PRN #1 inhalation 08/07/18 09/06/20 Unknown Rx [ProAir HFA Inhaler] Sucralfate [Carafate] 1 gm PO ACHS #30 tablet 08/07/18 09/06/20 03/13/20 Rx Insulin Regular, Human [HumuLIN R] 0 unit SQ AC #1 vial 08/11/18 09/06/20 Unknown Rx Labetalol HCl [Labetalol 300mg TAB] 300 mg PO BID #60 tablet 11/11/19 09/06/20 03/14/20 Rx Furosemide [Lasix TAB] 80 mg PO DAILY #14 tablet 03/27/20 09/06/20 Unknown Rx Insulin Glargine [Lantus VIAL] 15 units SUB-Q QAM #1 vial 03/27/20 09/06/20 Unknown Rx amLODIPine 10 mg PO QDAY #30 tablet 03/27/20 09/06/20 Unknown Rx Levemir Flextouch 10 units SUB-Q DAILY 09/06/20 09/06/20 Unknown History Levothyroxine 75 mg PO DAILY 09/06/20 09/06/20 Unknown History Active Medications: Generic Name Dose Route Start Last Admin Trade Name Freq PRN Reason Stop Dose Admin Albuterol 2.5 mg 08/25/20 14:55 Albuterol 2.5 Mg/3 Ml Nebu IH Q3HRT PRN Shortness Of Breath Lipase/Protease/Amylase 1 each 08/26/20 12:15 Lipase 10,500/Protease 25,000/Amylase 43,750 (Units) Dr Gu FEEDTUBE PRN PRN For Clogged Feeding Tube Aspirin 81 mg 08/27/20 10:00 09/08/20 09:43 Aspirin 81 Mg Tab Chew PO 81 mg QDAY TERA Administration Atorvastatin Calcium 40 mg 08/26/20 22:00 09/07/20 21:37 Atorvastatin 40 Mg Tab PO 40 mg QHS TERA Administration Atropine Sulfate 0.5 mg 09/05/20 13:09 09/05/20 13:44 Atropine 0.1% (1 Mg/10 Ml) Cardiac Syringe IV 0.5 mg Q5MIN PRN Administration Bradycardia Dextrose 50 ml 08/26/20 19:18 Dextrose 50% In Water (25gm) 50 Ml Syringe IV Q30MIN PRN Hypoglycemia Protocol Famotidine 20 mg 08/28/20 10:00 09/08/20 09:43 Famotidine 20 Mg Tab PO 20 mg DAILY TERA Administration Heparin Sodium (Porcine) 5,000 unit 08/26/20 22:00 09/08/20 09:43 Heparin 5,000 Unit/1 Ml Vial SUB-Q 5,000 unit Q12HR TERA Administration Hydralazine HCl 10 mg 08/26/20 01:20 09/04/20 11:06 Hydralazine 20 Mg/1 Ml Inj IV 10 mg Q4HR PRN Administration Blood Pressure Hydrophilic Ointment 1 applic 08/25/20 11:07 08/25/20 11:57 Lip Therapy Vaseline TP 1 applic Q2HR PRN Administration Dry Lips Lacosamide 200 mg/ Sodium 120 mls @ 100 mls/hr 09/04/20 11:00 09/07/20 22:08 Chloride IV 100 mls/hr Q12H TERA Administration Levetiracetam 500 mg/ Dextrose 105 mls @ 400 mls/hr 09/04/20 11:00 09/08/20 09:44 IV 400 mls/hr Q12HR TERA Administration Valproate Sodium 750 mg/ 107.5 mls @ 100 mls/hr 09/05/20 14:00 09/08/20 07:35 Sodium Chloride IV 100 mls/hr Q8HR TERA Administration Dopamine HCl/Dextrose 800 mg in 250 mls @ 3.563 mls/hr 09/05/20 15:00 09/08/20 02:41 Intropin Drip 800 Mg/D5w 250 Ml IV 8 mcg/kg/min TITR TERA 14.25 mls/hr Administration Protocol 2 MCG/KG/MIN Midazolam HCl 100 mg/ Sodium 100 mls @ 1 mls/hr 09/06/20 14:00 09/07/20 09:37 Chloride IV 3 mg/hr TITR TERA 3 mls/hr Titration Protocol 1 MG/HR Insulin Glargine 25 units 09/01/20 22:00 09/07/20 21:41 Insulin Glargine 100 Units/Ml SUB-Q 25 units QHS [facility] Administration Insulin Human Lispro 0 unit 08/27/20 12:00 09/08/20 06:53 Insulin Lispro 100 Unit/Ml SUB-Q Not Given Q6HR [facility] Protocol Lorazepam 2 mg 09/03/20 15:12 09/05/20 13:41 Lorazepam 2 Mg/Ml Vial IV 2 mg Q1H PRN Administration Seizures Multi-Ingred Cream/Lotion/Oil/Oint 1 applic 08/25/20 11:07 Mineral Oil/Petrolatum, White Ophth Oint 3.5 Gm OU Q4HR PRN Dry Eye(s) Senna/Docusate Sodium 1 tab 08/25/20 22:00 09/08/20 09:43 Sennosides/Docusate Sodium 8.6/50 Mg Tab FEEDTUBE 1 tab BID TERA Administration Simple Syrup 15 ml 08/26/20 12:15 Simple Syrup 15 Ml FEEDTUBE PRN PRN Hypoglycemia Simple Syrup 30 ml 08/26/20 12:15 Simple Syrup 15 Ml FEEDTUBE PRN PRN Hypoglycemia Sodium Bicarbonate 325 mg 08/26/20 12:15 Sodium Bicarbonate 325 Mg Tab FEEDTUBE PRN PRN For Clogged Feeding Tube Sodium Chloride 10 ml 08/25/20 22:00 09/08/20 09:45 Sodium Chloride 0.9% 10 Ml Flush Syringe IV 10 ml BID TERA Administration Sodium Chloride 10 ml 08/25/20 14:55 08/29/20 04:05 Sodium Chloride 0.9% 10 Ml Flush Syringe IV 10 ml PRN PRN Administration LINE FLUSH Tamsulosin HCl 0.8 mg 09/06/20 10:00 09/08/20 09:43 Tamsulosin 0.4 Mg Cap PO 0.8 mg QDAY TERA Administration
[2020-09-08] MEDS: LACOSAMIDE 200 MG in SODIUM CHLORIDE 0.9% 100 ML IV SCH (11:32)
--- NOTE | 2020-09-08 11:54 | Progress Note ---
Assessment and Plan Assessment and Plan Assessment and plan: This is a 75-year-old female with CHF, OHS DM, CKD, morbid obesity, GERD, hypertension, chronic respiratory failure admitted s/p cardiac arrest #NEURO -Anoxic encephalopathy -08/[address] head shows no CT evidence of acute abnormality -08/28 MRI brain without contrast shows abnormal diffusion and FLAIR signal abnormality which may suggest hypoxic/ischemic brain injury, -08/30 EEG- remarkable for diffuse slowing 3-4 Hz no clear epileptiform discharges is noted - Today she is with facial twitching left>Right face mainly Seizure can not be excluded --- Repeat EEG is remarkable for recurrent right frontal rubio and a run for over 200 sec. of generalized 3 hz rhythmic activity associated with the left facial twitching with focal seizure is most likley is present ... -repeat EEG yesterday is remarkable for diffuse slowing and BIPLED is noted intermittently , no clear generalized seizure is noted during facial twitching , advance versed resulted in improvment in facial twitching , back ground is in 2- 3 Hz slowing -Keppra decrease to 500 mg BID due to elevated creatinine ,give IV, vimpat is to increased to 200 mg IV bid will add valproic acid 750 mg IV tid and or in [place] tube , Ativan as needed for facial twitching -Seizure/aspiration precautions -Prognosis over all is poor -Only slight gag reflex is present --she is on versed 3mc -Pt has 8 living children- updated on plan of care Case Management following if decision is not made by family in 48 hours we will order trach/Peg Friday (09/04) #CV -NSR -S/p cardiac arrest with prolonged down time- -ddimer elevated on admit following cardiac arrest -Cardiology has seen and signed off- call if needed -08/25 echocardiogram shows LVEF 40 to 45%, LV normal size, LV systolic function mildly decreased, mild diastolic dysfunction, mildly dilated right ventricle, - pulmonary hypertension RVSP 45 mmHg -asa and statin -Hypertension -home norvasc , hydral added -Blood pressure monitoring per protocol -IV hydralazine as needed #RESP Acute hypoxic respiratory failure -Chronic respiratory insufficiency at home with 3 L oxygen via nasal cannula -remains intubated and ventilated on cpap this AM -Wean as tolerated; trend pulse ox -CCM following -VAP bundle -nebs as needed Multifocal pneumonia/ ? aspiration event -08/25 CXR shows worsening patchy bilateral pulmonary opacities -08/25 CTA chest shows no evidence of pulmonary embolism, bilateral pulmonary processes with large bilateral pleural effusions, pneumonia is a concern, pulmonary edema could be a similar appearance versus pulmonary edema # FLORIDALMA on CKD secondary to patient under nephropathy -trend and replace electrolytes as needed -Trend Cr #Urinary retention -Foreman replaced 08/31 for urinary retention #HEME Anemia -Admit H/H 8.6/27.8 #VTE prophylaxis with SCD and SQH #ID -Pneumonia -covid neg on admit #ENDO Diabetes mellitus DVT/GI prophylaxis: SCDs to bilateral lower extremities heparin subcu, PPI Disposition: ICU, need to discuss with family plan of care Lines: PIV; foreman pt. is evaluated in ICU time spent evaluating chart and lab result as well as test and exam pt. is >40 minutes Prognosis is poor Subjective Date of service: 09/08/20 Principal diagnosis: Ac. hypoxemic resp failure; Cardiac arrest; AMS; AE-CHF; Hyperkalemia; FLORIDALMA Interval history: status is unchanged not following command on vent , vital stable on Dopamin off Bet skylar , on 3 mc versed, not responding to verbal or sternal rub. family requested peg tube and trachestomy done EEG noted valproic acid level is #48 Objective - Vital Sign Vital Signs - 12hr 09/08/20 09/08/20 09/08/20 00:00 00:30 01:00 Temperature Pulse Rate 79 78 77 Pulse Rate [ 78 From Monitor] Respiratory 20 20 19 Rate Blood Pressure 144/57 146/56 144/57 O2 Sat by Pulse 97 97 97 Oximetry 09/08/20 09/08/20 09/08/20 01:30 02:00 02:30 Temperature Pulse Rate 78 76 78 Pulse Rate [ From Monitor] Respiratory 16 13 17 Rate Blood Pressure 149/55 143/52 136/48 O2 Sat by Pulse 97 97 97 Oximetry 09/08/20 09/08/20 09/08/20 03:00 03:01 03:30 Temperature 98.8 F Pulse Rate 73 75 Pulse Rate [ From Monitor] Respiratory 18 17 Rate Blood Pressure 149/56 156/63 O2 Sat by Pulse 97 96 Oximetry 09/08/20 09/08/20 09/08/20 04:00 04:04 04:06 Temperature 98.8 F Pulse Rate 76 75 74 Pulse Rate [ 76 From Monitor] Respiratory 12 Rate Blood Pressure 157/61 O2 Sat by Pulse 99 98 98 Oximetry 09/08/20 09/08/20 09/08/20 04:30 05:00 05:30 Temperature Pulse Rate 75 75 75 Pulse Rate [ From Monitor] Respiratory 13 14 17 Rate Blood Pressure 153/63 161/62 159/62 O2 Sat by Pulse 98 97 Oximetry 09/08/20 09/08/20 09/08/20 06:00 06:30 06:53 Temperature Pulse Rate 61 65 71 Pulse Rate [ From Monitor] Respiratory 16 19 Rate Blood Pressure 161/62 143/57 107/44 O2 Sat by Pulse Oximetry 09/08/20 09/08/20 09/08/20 07:00 07:30 07:32 Temperature Pulse Rate 70 69 68 Pulse Rate [ From Monitor] Respiratory 11 L 9 L Rate Blood Pressure 122/42 114/47 114/47 O2 Sat by Pulse 98 98 99 Oximetry 09/08/20 09/08/20 09/08/20 08:00 08:30 08:50 Temperature 98.6 F Pulse Rate 79 79 79 Pulse Rate [ 78 From Monitor] Respiratory 20 15 23 Rate Blood Pressure 150/55 150/55 103/52 O2 Sat by Pulse 97 99 Oximetry 09/08/20 09/08/20 09/08/20 09:00 09:30 10:00 Temperature Pulse Rate 78 77 74 Pulse Rate [ From Monitor] Respiratory 25 H 22 24 Rate Blood Pressure 138/51 129/50 128/47 O2 Sat by Pulse Oximetry 09/08/20 09/08/20 09/08/20 10:30 11:00 11:36 Temperature Pulse Rate 79 79 78 Pulse Rate [ From Monitor] Respiratory 26 H 26 H 25 H Rate Blood Pressure 103/52 145/56 145/56 O2 Sat by Pulse 97 97 99 Oximetry - General Apperance Constitutional: comfortable - EENT EENT: PERRL, mucous membranes moist - Respiratory Respiratory: chest non-tender, lungs clear, rhonchi - Cardiovascular Cardiovascular: regular rate, normal S1, normal S2 Extremities: no peripheral edema bilat, no clubbing, cyanosis, no inflammation - Gastrointestinal Gastrointestinal: normoactive bowel sounds - Integumentary Integumentary: normal - Neurologic Cranial nerve examination: other (pupils 2 mm no reactive no EOM,no corneal slight gag is noted , tonque is sore on left side , no facial twitching is noted) Detailed motor examination: other (no movmnet to pain stimuli ) - Laboratory Findings CBC and BMP: 09/07/20 Unknown 09/08/20 06:00 Abnormal Lab Findings: Abnormal Labs 08/25/20 08/25/20 08/25/20 11:14 11:17 11:23 WBC 11.5 H RBC 3.22 L Hgb 8.6 L Hct 27.6 L MCH 27 L MCHC RDW 15.6 H Lymph % (Auto) Lymph # (Auto) Eos # (Auto) Seg Neutrophils % Seg Neuts % (Manual) 89.0 H Lymphocytes % (Manual) 5.0 L Seg Neutrophils # Seg Neutrophils # Man 10.2 H Lymphocytes # (Manual) 0.6 L D-Dimer ABG pH 7.290 L POC ABG pO2 161.1 H ABG pO2 ABG HCO3 ABG Hemoglobin 8.9 L ABG Oxyhemoglobin 98.6 H ABG Sodium 135.2 L ABG Potassium 5.9 H ABG Glucose 210 H Oxyhemoglobin Carboxyhemoglobin 0.4 L Sodium Potassium Chloride Carbon Dioxide BUN Creatinine Glucose POC Glucose Lactic Acid Calcium Phosphorus Magnesium AST ALT Troponin T C-Reactive Protein Total Protein Albumin Arterial Blood Glucose 210 H Arterial Blood Ionized Calcium 4.4 L Urine WBC (Auto) 31.0 H Urine Creatinine Valproic Acid 08/25/20 08/25/20 08/25/20 11:23 11:23 11:23 WBC RBC Hgb Hct MCH MCHC RDW Lymph % (Auto) Lymph # (Auto) Eos # (Auto) Seg Neutrophils % Seg Neuts % (Manual) Lymphocytes % (Manual) Seg Neutrophils # Seg Neutrophils # Man Lymphocytes # (Manual) D-Dimer > 75948 H ABG pH POC ABG pO2 ABG pO2 ABG HCO3 ABG Hemoglobin ABG Oxyhemoglobin ABG Sodium ABG Potassium ABG Glucose Oxyhemoglobin Carboxyhemoglobin Sodium Potassium 6.4 H* Chloride Carbon Dioxide 21 L BUN 52 H Creatinine 3.5 H Glucose 194 H POC Glucose Lactic Acid 3.30 H* Calcium 8.1 L Phosphorus Magnesium AST 103 H ALT 77 H Troponin T 0.057 H C-Reactive Protein Total Protein 5.8 L Albumin 3.4 L Arterial Blood Glucose Arterial Blood Ionized Calcium Urine WBC (Auto) Urine Creatinine Valproic Acid 08/25/20 08/25/20 08/25/20 13:51 15:45 20:34 WBC RBC Hgb Hct MCH MCHC RDW Lymph % (Auto) Lymph # (Auto) Eos # (Auto) Seg Neutrophils % Seg Neuts % (Manual) Lymphocytes % (Manual) Seg Neutrophils # Seg Neutrophils # Man Lymphocytes # (Manual) D-Dimer ABG pH POC ABG pO2 66.3 L ABG pO2 ABG HCO3 ABG Hemoglobin 9.1 L ABG Oxyhemoglobin 92.5 L ABG Sodium ABG Potassium ABG Glucose 225 H Oxyhemoglobin Carboxyhemoglobin Sodium Potassium Chloride Carbon Dioxide BUN Creatinine Glucose POC Glucose 188 H 233 H Lactic Acid Calcium Phosphorus Magnesium AST ALT Troponin T C-Reactive Protein Total Protein Albumin Arterial Blood Glucose 225 H Arterial Blood Ionized Calcium 4.4 L Urine WBC (Auto) Urine Creatinine Valproic Acid 08/26/20 08/26/20 08/26/20 04:14 05:04 05:04 WBC 17.9 H RBC 3.05 L Hgb 8.3 L Hct 25.6 L MCH 27 L MCHC RDW 15.3 H Lymph % (Auto) Lymph # (Auto) Eos # (Auto) Seg Neutrophils % Seg Neuts % (Manual) 96.0 H Lymphocytes % (Manual) 1.0 L Seg Neutrophils # Seg Neutrophils # Man 17.2 H Lymphocytes # (Manual) 0.2 L D-Dimer ABG pH POC ABG pO2 131.3 H ABG pO2 ABG HCO3 ABG Hemoglobin 8.6 L ABG Oxyhemoglobin 98.2 H ABG Sodium ABG Potassium ABG Glucose 182 H Oxyhemoglobin Carboxyhemoglobin 0.2 L Sodium Potassium Chloride Carbon Dioxide BUN 56 H Creatinine 3.4 H Glucose 187 H POC Glucose Lactic Acid Calcium 8.3 L Phosphorus Magnesium AST 54 H ALT 57 H Troponin T C-Reactive Protein Total Protein 5.4 L Albumin 2.9 L Arterial Blood Glucose 182 H Arterial Blood Ionized Calcium 4.3 L Urine WBC (Auto) Urine Creatinine Valproic Acid 08/26/20 08/26/20 08/26/20 05:40 07:36 11:54 WBC RBC Hgb Hct MCH MCHC RDW Lymph % (Auto) Lymph # (Auto) Eos # (Auto) Seg Neutrophils % Seg Neuts % (Manual) Lymphocytes % (Manual) Seg Neutrophils # Seg Neutrophils # Man Lymphocytes # (Manual) D-Dimer ABG pH POC ABG pO2 ABG pO2 ABG HCO3 ABG Hemoglobin ABG Oxyhemoglobin ABG Sodium ABG Potassium ABG Glucose Oxyhemoglobin Carboxyhemoglobin Sodium Potassium Chloride Carbon Dioxide BUN Creatinine Glucose POC Glucose 179 H 171 H 190 H Lactic Acid Calcium Phosphorus Magnesium AST ALT Troponin T C-Reactive Protein Total Protein Albumin Arterial Blood Glucose Arterial Blood Ionized Calcium Urine WBC (Auto) Urine Creatinine Valproic Acid 08/26/20 08/26/20 08/26/20 15:14 17:00 18:50 WBC RBC Hgb Hct MCH MCHC RDW Lymph % (Auto) Lymph # (Auto) Eos # (Auto) Seg Neutrophils % Seg Neuts % (Manual) Lymphocytes % (Manual) Seg Neutrophils # Seg Neutrophils # Man Lymphocytes # (Manual) D-Dimer ABG pH POC ABG pO2 ABG pO2 ABG HCO3 ABG Hemoglobin ABG Oxyhemoglobin ABG Sodium ABG Potassium ABG Glucose Oxyhemoglobin Carboxyhemoglobin Sodium Potassium Chloride Carbon Dioxide BUN Creatinine Glucose POC Glucose 158 H Lactic Acid Calcium Phosphorus Magnesium AST ALT Troponin T C-Reactive Protein 7.80 H Total Protein Albumin Arterial Blood Glucose Arterial Blood Ionized Calcium Urine WBC (Auto) Urine Creatinine 67.4 H Valproic Acid 08/26/20 08/27/20 08/27/20 22:01 04:10 05:12 WBC RBC Hgb Hct MCH MCHC RDW Lymph % (Auto) Lymph # (Auto) Eos # (Auto) Seg Neutrophils % Seg Neuts % (Manual) Lymphocytes % (Manual) Seg Neutrophils # Seg Neutrophils # Man Lymphocytes # (Manual) D-Dimer ABG pH 7.454 H POC ABG pO2 74.9 L ABG pO2 ABG HCO3 ABG Hemoglobin 7.9 L ABG Oxyhemoglobin ABG Sodium ABG Potassium ABG Glucose 117 H Oxyhemoglobin Carboxyhemoglobin Sodium Potassium Chloride Carbon Dioxide BUN Creatinine Glucose POC Glucose 122 H 117 H Lactic Acid Calcium Phosphorus Magnesium AST ALT Troponin T C-Reactive Protein Total Protein Albumin Arterial Blood Glucose 117 H Arterial Blood Ionized Calcium 4.4 L Urine WBC (Auto) Urine Creatinine Valproic Acid 08/27/20 08/27/20 08/27/20 07:24 07:24 11:08 WBC 12.7 H RBC 2.92 L Hgb 8.1 L Hct 24.4 L MCH MCHC RDW 15.4 H Lymph % (Auto) 5.9 L Lymph # (Auto) 0.8 L Eos # (Auto) Seg Neutrophils % 86.9 H Seg Neuts % (Manual) Lymphocytes % (Manual) Seg Neutrophils # 11.0 H Seg Neutrophils # Man Lymphocytes # (Manual) D-Dimer ABG pH POC ABG pO2 ABG pO2 ABG HCO3 ABG Hemoglobin ABG Oxyhemoglobin ABG Sodium ABG Potassium ABG Glucose Oxyhemoglobin Carboxyhemoglobin Sodium Potassium Chloride Carbon Dioxide BUN 60 H Creatinine 3.6 H Glucose 135 H POC Glucose 139 H Lactic Acid Calcium Phosphorus Magnesium AST ALT Troponin T C-Reactive Protein Total Protein 5.3 L Albumin 2.6 L Arterial Blood Glucose Arterial Blood Ionized Calcium Urine WBC (Auto) Urine Creatinine Valproic Acid 08/27/20 08/27/20 08/27/20 11:19 17:31 23:25 WBC RBC Hgb Hct MCH MCHC RDW Lymph % (Auto) Lymph # (Auto) Eos # (Auto) Seg Neutrophils % Seg Neuts % (Manual) Lymphocytes % (Manual) Seg Neutrophils # Seg Neutrophils # Man Lymphocytes # (Manual) D-Dimer ABG pH POC ABG pO2 ABG pO2 ABG HCO3 ABG Hemoglobin ABG Oxyhemoglobin ABG Sodium ABG Potassium ABG Glucose Oxyhemoglobin Carboxyhemoglobin Sodium Potassium Chloride Carbon Dioxide BUN Creatinine Glucose POC Glucose 143 H 140 H 123 H Lactic Acid Calcium Phosphorus Magnesium AST ALT Troponin T C-Reactive Protein Total Protein Albumin Arterial Blood Glucose Arterial Blood Ionized Calcium Urine WBC (Auto) Urine Creatinine Valproic Acid 08/28/20 08/28/20 08/28/20 03:50 04:19 04:19 WBC RBC 2.80 L Hgb 7.8 L Hct 23.6 L MCH MCHC RDW 15.8 H Lymph % (Auto) Lymph # (Auto) Eos # (Auto) Seg Neutrophils % Seg Neuts % (Manual) Lymphocytes % (Manual) Seg Neutrophils # Seg Neutrophils # Man Lymphocytes # (Manual) D-Dimer ABG pH 7.329 L POC ABG pO2 ABG pO2 76.7 L ABG HCO3 27.0 H ABG Hemoglobin 7.5 L ABG Oxyhemoglobin ABG Sodium ABG Potassium ABG Glucose Oxyhemoglobin 93.6 L Carboxyhemoglobin Sodium 135 L Potassium Chloride Carbon Dioxide BUN 64 H Creatinine 3.8 H Glucose 143 H POC Glucose Lactic Acid Calcium 8.0 L Phosphorus Magnesium AST ALT Troponin T C-Reactive Protein Total Protein 4.8 L Albumin 2.4 L Arterial Blood Glucose Arterial Blood Ionized Calcium Urine WBC (Auto) Urine Creatinine Valproic Acid 08/28/20 08/28/20 08/28/20 05:35 11:22 17:18 WBC RBC Hgb Hct MCH MCHC RDW Lymph % (Auto) Lymph # (Auto) Eos # (Auto) Seg Neutrophils % Seg Neuts % (Manual) Lymphocytes % (Manual) Seg Neutrophils # Seg Neutrophils # Man Lymphocytes # (Manual) D-Dimer ABG pH POC ABG pO2 ABG pO2 ABG HCO3 ABG Hemoglobin ABG Oxyhemoglobin ABG Sodium ABG Potassium ABG Glucose Oxyhemoglobin Carboxyhemoglobin Sodium Potassium Chloride Carbon Dioxide BUN Creatinine Glucose POC Glucose 147 H 182 H 216 H Lactic Acid Calcium Phosphorus Magnesium AST ALT Troponin T C-Reactive Protein Total Protein Albumin Arterial Blood Glucose Arterial Blood Ionized Calcium Urine WBC (Auto) Urine Creatinine Valproic Acid 08/28/20 08/28/20 08/29/20 21:04 23:20 04:32 WBC RBC Hgb Hct MCH MCHC RDW Lymph % (Auto) Lymph # (Auto) Eos # (Auto) Seg Neutrophils % Seg Neuts % (Manual) Lymphocytes % (Manual) Seg Neutrophils # Seg Neutrophils # Man Lymphocytes # (Manual) D-Dimer ABG pH POC ABG pO2 ABG pO2 ABG HCO3 ABG Hemoglobin ABG Oxyhemoglobin ABG Sodium ABG Potassium ABG Glucose Oxyhemoglobin Carboxyhemoglobin Sodium 135 L Potassium Chloride 96.0 L Carbon Dioxide BUN 67 H Creatinine 3.8 H Glucose 200 H POC Glucose 204 H 242 H Lactic Acid Calcium 8.2 L Phosphorus Magnesium AST ALT Troponin T C-Reactive Protein Total Protein Albumin Arterial Blood Glucose Arterial Blood Ionized Calcium Urine WBC (Auto) Urine Creatinine Valproic Acid 08/29/20 08/29/20 08/29/20 04:32 04:50 04:59 WBC RBC 3.25 L Hgb 9.0 L Hct 27.0 L MCH MCHC RDW 16.1 H Lymph % (Auto) Lymph # (Auto) Eos # (Auto) Seg Neutrophils % Seg Neuts % (Manual) Lymphocytes % (Manual) Seg Neutrophils # Seg Neutrophils # Man Lymphocytes # (Manual) D-Dimer ABG pH POC ABG pO2 ABG pO2 ABG HCO3 ABG Hemoglobin 8.8 L ABG Oxyhemoglobin ABG Sodium ABG Potassium ABG Glucose Oxyhemoglobin Carboxyhemoglobin Sodium Potassium Chloride Carbon Dioxide BUN Creatinine Glucose POC Glucose 201 H Lactic Acid Calcium Phosphorus Magnesium AST ALT Troponin T C-Reactive Protein Total Protein Albumin Arterial Blood Glucose Arterial Blood Ionized Calcium Urine WBC (Auto) Urine Creatinine Valproic Acid 08/29/20 08/29/20 08/29/20 11:10 11:28 17:50 WBC RBC Hgb Hct MCH MCHC RDW Lymph % (Auto) Lymph # (Auto) Eos # (Auto) Seg Neutrophils % Seg Neuts % (Manual) Lymphocytes % (Manual) Seg Neutrophils # Seg Neutrophils # Man Lymphocytes # (Manual) D-Dimer ABG pH POC ABG pO2 ABG pO2 78.7 L ABG HCO3 26.6 H ABG Hemoglobin 9.8 L ABG Oxyhemoglobin ABG Sodium ABG Potassium ABG Glucose Oxyhemoglobin 94.3 L Carboxyhemoglobin Sodium Potassium Chloride Carbon Dioxide BUN Creatinine Glucose POC Glucose 219 H 203 H Lactic Acid Calcium Phosphorus Magnesium AST ALT Troponin T C-Reactive Protein Total Protein Albumin Arterial Blood Glucose Arterial Blood Ionized Calcium Urine WBC (Auto) Urine Creatinine Valproic Acid 08/29/20 08/29/20 08/30/20 21:31 23:28 04:14 WBC RBC Hgb Hct MCH MCHC RDW Lymph % (Auto) Lymph # (Auto) Eos # (Auto) Seg Neutrophils % Seg Neuts % (Manual) Lymphocytes % (Manual) Seg Neutrophils # Seg Neutrophils # Man Lymphocytes # (Manual) D-Dimer ABG pH POC ABG pO2 ABG pO2 ABG HCO3 ABG Hemoglobin ABG Oxyhemoglobin ABG Sodium ABG Potassium ABG Glucose Oxyhemoglobin Carboxyhemoglobin Sodium 132 L Potassium Chloride 94.8 L Carbon Dioxide BUN 68 H Creatinine 3.7 H Glucose 214 H POC Glucose 204 H 215 H Lactic Acid Calcium Phosphorus Magnesium AST ALT Troponin T C-Reactive Protein Total Protein Albumin Arterial Blood Glucose Arterial Blood Ionized Calcium Urine WBC (Auto) Urine Creatinine Valproic Acid 08/30/20 08/30/20 08/30/20 05:10 11:33 17:32 WBC RBC Hgb Hct MCH MCHC RDW Lymph % (Auto) Lymph # (Auto) Eos # (Auto) Seg Neutrophils % Seg Neuts % (Manual) Lymphocytes % (Manual) Seg Neutrophils # Seg Neutrophils # Man Lymphocytes # (Manual) D-Dimer ABG pH POC ABG pO2 ABG pO2 ABG HCO3 ABG Hemoglobin ABG Oxyhemoglobin ABG Sodium ABG Potassium ABG Glucose Oxyhemoglobin Carboxyhemoglobin Sodium Potassium Chloride Carbon Dioxide BUN Creatinine Glucose POC Glucose 210 H 194 H 202 H Lactic Acid Calcium Phosphorus Magnesium AST ALT Troponin T C-Reactive Protein Total Protein Albumin Arterial Blood Glucose Arterial Blood Ionized Calcium Urine WBC (Auto) Urine Creatinine Valproic Acid 08/30/20 08/30/20 08/30/20 21:39 23:21 Unknown WBC RBC Hgb Hct MCH MCHC RDW Lymph % (Auto) Lymph # (Auto) Eos # (Auto) Seg Neutrophils % Seg Neuts % (Manual) Lymphocytes % (Manual) Seg Neutrophils # Seg Neutrophils # Man Lymphocytes # (Manual) D-Dimer ABG pH POC ABG pO2 ABG pO2 99.0 H ABG HCO3 ABG Hemoglobin 9.8 L ABG Oxyhemoglobin ABG Sodium ABG Potassium ABG Glucose Oxyhemoglobin Carboxyhemoglobin Sodium Potassium Chloride Carbon Dioxide BUN Creatinine Glucose POC Glucose 199 H 209 H Lactic Acid Calcium Phosphorus Magnesium AST ALT Troponin T C-Reactive Protein Total Protein Albumin Arterial Blood Glucose Arterial Blood Ionized Calcium Urine WBC (Auto) Urine Creatinine Valproic Acid 08/31/20 08/31/20 08/31/20 04:10 05:19 10:57 WBC RBC Hgb Hct MCH MCHC RDW Lymph % (Auto) Lymph # (Auto) Eos # (Auto) Seg Neutrophils % Seg Neuts % (Manual) Lymphocytes % (Manual) Seg Neutrophils # Seg Neutrophils # Man Lymphocytes # (Manual) D-Dimer ABG pH 7.451 H POC ABG pO2 ABG pO2 99.6 H ABG HCO3 ABG Hemoglobin 8.4 L ABG Oxyhemoglobin ABG Sodium ABG Potassium ABG Glucose Oxyhemoglobin Carboxyhemoglobin Sodium 133 L Potassium Chloride 96.4 L Carbon Dioxide BUN 74 H Creatinine 3.8 H Glucose 201 H POC Glucose 182 H Lactic Acid Calcium 7.6 L Phosphorus Magnesium AST ALT Troponin T C-Reactive Protein Total Protein Albumin Arterial Blood Glucose Arterial Blood Ionized Calcium Urine WBC (Auto) Urine Creatinine Valproic Acid 08/31/20 08/31/20 08/31/20 10:57 12:32 17:15 WBC 11.4 H RBC 3.24 L Hgb 8.5 L Hct 26.6 L MCH 26 L MCHC RDW 15.6 H Lymph % (Auto) Lymph # (Auto) Eos # (Auto) Seg Neutrophils % Seg Neuts % (Manual) Lymphocytes % (Manual) Seg Neutrophils # Seg Neutrophils # Man Lymphocytes # (Manual) D-Dimer ABG pH POC ABG pO2 ABG pO2 ABG HCO3 ABG Hemoglobin ABG Oxyhemoglobin ABG Sodium ABG Potassium ABG Glucose Oxyhemoglobin Carboxyhemoglobin Sodium Potassium Chloride Carbon Dioxide BUN Creatinine Glucose POC Glucose 217 H 203 H Lactic Acid Calcium Phosphorus Magnesium AST ALT Troponin T C-Reactive Protein Total Protein Albumin Arterial Blood Glucose Arterial Blood Ionized Calcium Urine WBC (Auto) Urine Creatinine Valproic Acid 09/01/20 09/01/20 09/01/20 00:06 05:05 09:41 WBC RBC Hgb Hct MCH MCHC RDW Lymph % (Auto) Lymph # (Auto) Eos # (Auto) Seg Neutrophils % Seg Neuts % (Manual) Lymphocytes % (Manual) Seg Neutrophils # Seg Neutrophils # Man Lymphocytes # (Manual) D-Dimer ABG pH POC ABG pO2 ABG pO2 ABG HCO3 ABG Hemoglobin ABG Oxyhemoglobin ABG Sodium ABG Potassium ABG Glucose Oxyhemoglobin Carboxyhemoglobin Sodium 134 L Potassium Chloride 95.2 L Carbon Dioxide BUN 81 H Creatinine 3.7 H Glucose 201 H POC Glucose 223 H 225 H Lactic Acid Calcium Phosphorus 4.60 H Magnesium 2.40 H AST ALT Troponin T C-Reactive Protein Total Protein Albumin Arterial Blood Glucose Arterial Blood Ionized Calcium Urine WBC (Auto) Urine Creatinine Valproic Acid 09/01/20 09/01/20 09/01/20 09:41 12:51 13:08 WBC 11.5 H RBC 3.58 L Hgb 9.2 L Hct 29.7 L MCH 26 L MCHC RDW 16.0 H Lymph % (Auto) Lymph # (Auto) Eos # (Auto) Seg Neutrophils % Seg Neuts % (Manual) Lymphocytes % (Manual) Seg Neutrophils # Seg Neutrophils # Man Lymphocytes # (Manual) D-Dimer ABG pH 7.462 H POC ABG pO2 ABG pO2 ABG HCO3 ABG Hemoglobin 9.5 L ABG Oxyhemoglobin ABG Sodium 130.4 L ABG Potassium ABG Glucose 208 H Oxyhemoglobin Carboxyhemoglobin 0.4 L Sodium Potassium Chloride Carbon Dioxide BUN Creatinine Glucose POC Glucose 182 H Lactic Acid Calcium Phosphorus Magnesium AST ALT Troponin T C-Reactive Protein Total Protein Albumin Arterial Blood Glucose 208 H Arterial Blood Ionized Calcium 4.5 L Urine WBC (Auto) Urine Creatinine Valproic Acid 09/01/20 09/01/20 09/02/20 18:34 23:14 05:22 WBC RBC Hgb Hct MCH MCHC RDW Lymph % (Auto) Lymph # (Auto) Eos # (Auto) Seg Neutrophils % Seg Neuts % (Manual) Lymphocytes % (Manual) Seg Neutrophils # Seg Neutrophils # Man Lymphocytes # (Manual) D-Dimer ABG pH POC ABG pO2 ABG pO2 ABG HCO3 ABG Hemoglobin ABG Oxyhemoglobin ABG Sodium ABG Potassium ABG Glucose Oxyhemoglobin Carboxyhemoglobin Sodium Potassium Chloride Carbon Dioxide BUN Creatinine Glucose POC Glucose 183 H 181 H 178 H Lactic Acid Calcium Phosphorus Magnesium AST ALT Troponin T C-Reactive Protein Total Protein Albumin Arterial Blood Glucose Arterial Blood Ionized Calcium Urine WBC (Auto) Urine Creatinine Valproic Acid 09/02/20 09/02/20 09/02/20 07:35 11:16 17:39 WBC RBC Hgb Hct MCH MCHC RDW Lymph % (Auto) Lymph # (Auto) Eos # (Auto) Seg Neutrophils % Seg Neuts % (Manual) Lymphocytes % (Manual) Seg Neutrophils # Seg Neutrophils # Man Lymphocytes # (Manual) D-Dimer ABG pH POC ABG pO2 ABG pO2 ABG HCO3 ABG Hemoglobin ABG Oxyhemoglobin ABG Sodium ABG Potassium ABG Glucose Oxyhemoglobin Carboxyhemoglobin Sodium 135 L Potassium Chloride 96.0 L Carbon Dioxide BUN 88 H Creatinine 3.7 H Glucose 187 H POC Glucose 228 H 165 H Lactic Acid Calcium Phosphorus Magnesium AST ALT Troponin T C-Reactive Protein Total Protein Albumin Arterial Blood Glucose Arterial Blood Ionized Calcium Urine WBC (Auto) Urine Creatinine Valproic Acid 09/02/20 09/03/20 09/03/20 23:24 05:35 08:31 WBC 18.5 H RBC 2.80 L Hgb 7.8 L Hct 22.7 L D MCH MCHC 35 H RDW 15.3 H Lymph % (Auto) Lymph # (Auto) Eos # (Auto) Seg Neutrophils % Seg Neuts % (Manual) Lymphocytes % (Manual) Seg Neutrophils # Seg Neutrophils # Man Lymphocytes # (Manual) D-Dimer ABG pH POC ABG pO2 ABG pO2 ABG HCO3 ABG Hemoglobin ABG Oxyhemoglobin ABG Sodium ABG Potassium ABG Glucose Oxyhemoglobin Carboxyhemoglobin Sodium Potassium Chloride Carbon Dioxide BUN Creatinine Glucose POC Glucose 167 H 180 H Lactic Acid Calcium Phosphorus Magnesium AST ALT Troponin T C-Reactive Protein Total Protein Albumin Arterial Blood Glucose Arterial Blood Ionized Calcium Urine WBC (Auto) Urine Creatinine Valproic Acid 09/03/20 09/03/20 09/03/20 08:31 12:02 17:05 WBC RBC Hgb Hct MCH MCHC RDW Lymph % (Auto) Lymph # (Auto) Eos # (Auto) Seg Neutrophils % Seg Neuts % (Manual) Lymphocytes % (Manual) Seg Neutrophils # Seg Neutrophils # Man Lymphocytes # (Manual) D-Dimer ABG pH POC ABG pO2 ABG pO2 ABG HCO3 ABG Hemoglobin ABG Oxyhemoglobin ABG Sodium ABG Potassium ABG Glucose Oxyhemoglobin Carboxyhemoglobin Sodium 134 L Potassium Chloride 96.6 L Carbon Dioxide BUN 96 H Creatinine 3.7 H Glucose 190 H POC Glucose 156 H 150 H Lactic Acid Calcium 8.1 L Phosphorus Magnesium AST ALT Troponin T C-Reactive Protein Total Protein Albumin Arterial Blood Glucose Arterial Blood Ionized Calcium Urine WBC (Auto) Urine Creatinine Valproic Acid 09/03/20 09/04/20 09/04/20 23:31 05:23 09:49 WBC RBC Hgb Hct MCH MCHC RDW Lymph % (Auto) Lymph # (Auto) Eos # (Auto) Seg Neutrophils % Seg Neuts % (Manual) Lymphocytes % (Manual) Seg Neutrophils # Seg Neutrophils # Man Lymphocytes # (Manual) D-Dimer ABG pH POC ABG pO2 ABG pO2 ABG HCO3 ABG Hemoglobin ABG Oxyhemoglobin ABG Sodium ABG Potassium ABG Glucose Oxyhemoglobin Carboxyhemoglobin Sodium Potassium Chloride 97.9 L Carbon Dioxide BUN 98 H Creatinine 4.0 H Glucose 171 H POC Glucose 143 H 165 H Lactic Acid Calcium Phosphorus Magnesium AST ALT Troponin T C-Reactive Protein Total Protein Albumin Arterial Blood Glucose Arterial Blood Ionized Calcium Urine WBC (Auto) Urine Creatinine Valproic Acid 09/04/20 09/04/20 09/04/20 12:05 17:46 21:25 WBC RBC Hgb Hct MCH MCHC RDW Lymph % (Auto) Lymph # (Auto) Eos # (Auto) Seg Neutrophils % Seg Neuts % (Manual) Lymphocytes % (Manual) Seg Neutrophils # Seg Neutrophils # Man Lymphocytes # (Manual) D-Dimer ABG pH POC ABG pO2 ABG pO2 ABG HCO3 ABG Hemoglobin ABG Oxyhemoglobin ABG Sodium ABG Potassium ABG Glucose Oxyhemoglobin Carboxyhemoglobin Sodium Potassium Chloride Carbon Dioxide BUN Creatinine Glucose POC Glucose 200 H 184 H 177 H Lactic Acid Calcium Phosphorus Magnesium AST ALT Troponin T C-Reactive Protein Total Protein Albumin Arterial Blood Glucose Arterial Blood Ionized Calcium Urine WBC (Auto) Urine Creatinine Valproic Acid 09/05/20 09/05/20 09/05/20 00:06 04:34 08:40 WBC RBC Hgb Hct MCH MCHC RDW Lymph % (Auto) Lymph # (Auto) Eos # (Auto) Seg Neutrophils % Seg Neuts % (Manual) Lymphocytes % (Manual) Seg Neutrophils # Seg Neutrophils # Man Lymphocytes # (Manual) D-Dimer ABG pH POC ABG pO2 ABG pO2 ABG HCO3 ABG Hemoglobin ABG Oxyhemoglobin ABG Sodium ABG Potassium ABG Glucose Oxyhemoglobin Carboxyhemoglobin Sodium 133 L Potassium Chloride 92.5 L Carbon Dioxide BUN 99 H Creatinine 3.6 H Glucose 167 H POC Glucose 198 H 189 H Lactic Acid Calcium Phosphorus Magnesium AST ALT Troponin T C-Reactive Protein Total Protein Albumin Arterial Blood Glucose Arterial Blood Ionized Calcium Urine WBC (Auto) Urine Creatinine Valproic Acid 09/05/20 09/05/20 09/05/20 11:28 17:54 23:28 WBC RBC Hgb Hct MCH MCHC RDW Lymph % (Auto) Lymph # (Auto) Eos # (Auto) Seg Neutrophils % Seg Neuts % (Manual) Lymphocytes % (Manual) Seg Neutrophils # Seg Neutrophils # Man Lymphocytes # (Manual) D-Dimer ABG pH POC ABG pO2 ABG pO2 ABG HCO3 ABG Hemoglobin ABG Oxyhemoglobin ABG Sodium ABG Potassium ABG Glucose Oxyhemoglobin Carboxyhemoglobin Sodium Potassium Chloride Carbon Dioxide BUN Creatinine Glucose POC Glucose 171 H 169 H 163 H Lactic Acid Calcium Phosphorus Magnesium AST ALT Troponin T C-Reactive Protein Total Protein Albumin Arterial Blood Glucose Arterial Blood Ionized Calcium Urine WBC (Auto) Urine Creatinine Valproic Acid 09/06/20 09/06/20 09/06/20 05:17 11:55 18:07 WBC RBC Hgb Hct MCH MCHC RDW Lymph % (Auto) Lymph # (Auto) Eos # (Auto) Seg Neutrophils % Seg Neuts % (Manual) Lymphocytes % (Manual) Seg Neutrophils # Seg Neutrophils # Man Lymphocytes # (Manual) D-Dimer ABG pH POC ABG pO2 ABG pO2 ABG HCO3 ABG Hemoglobin ABG Oxyhemoglobin ABG Sodium ABG Potassium ABG Glucose Oxyhemoglobin Carboxyhemoglobin Sodium Potassium Chloride Carbon Dioxide BUN Creatinine Glucose POC Glucose 151 H 175 H 182 H Lactic Acid Calcium Phosphorus Magnesium AST ALT Troponin T C-Reactive Protein Total Protein Albumin Arterial Blood Glucose Arterial Blood Ionized Calcium Urine WBC (Auto) Urine Creatinine Valproic Acid 09/06/20 09/06/20 09/06/20 23:19 Unknown Unknown WBC 17.3 H RBC 3.25 L Hgb 8.7 L Hct 26.2 L MCH 27 L MCHC RDW 15.6 H Lymph % (Auto) 4.4 L Lymph # (Auto) 0.8 L Eos # (Auto) Seg Neutrophils % 89.5 H Seg Neuts % (Manual) Lymphocytes % (Manual) Seg Neutrophils # 15.5 H Seg Neutrophils # Man Lymphocytes # (Manual) D-Dimer ABG pH POC ABG pO2 ABG pO2 ABG HCO3 ABG Hemoglobin ABG Oxyhemoglobin ABG Sodium ABG Potassium ABG Glucose Oxyhemoglobin Carboxyhemoglobin Sodium 132 L Potassium Chloride 91.9 L Carbon Dioxide BUN 104 H Creatinine 3.8 H Glucose 177 H POC Glucose 160 H Lactic Acid Calcium Phosphorus Magnesium 2.60 H AST ALT Troponin T C-Reactive Protein Total Protein Albumin Arterial Blood Glucose Arterial Blood Ionized Calcium Urine WBC (Auto) Urine Creatinine Valproic Acid 09/07/20 09/07/20 09/07/20 04:00 05:36 12:09 WBC RBC Hgb Hct MCH MCHC RDW Lymph % (Auto) Lymph # (Auto) Eos # (Auto) Seg Neutrophils % Seg Neuts % (Manual) Lymphocytes % (Manual) Seg Neutrophils # Seg Neutrophils # Man Lymphocytes # (Manual) D-Dimer ABG pH POC ABG pO2 ABG pO2 ABG HCO3 ABG Hemoglobin ABG Oxyhemoglobin ABG Sodium ABG Potassium ABG Glucose Oxyhemoglobin Carboxyhemoglobin Sodium Potassium Chloride 95.6 L Carbon Dioxide BUN 108 H Creatinine 3.9 H Glucose 129 H POC Glucose 151 H 172 H Lactic Acid Calcium Phosphorus Magnesium AST ALT Troponin T C-Reactive Protein Total Protein Albumin Arterial Blood Glucose Arterial Blood Ionized Calcium Urine WBC (Auto) Urine Creatinine Valproic Acid 09/07/20 09/07/20 09/07/20 15:28 18:00 21:21 WBC RBC Hgb Hct MCH MCHC RDW Lymph % (Auto) Lymph # (Auto) Eos # (Auto) Seg Neutrophils % Seg Neuts % (Manual) Lymphocytes % (Manual) Seg Neutrophils # Seg Neutrophils # Man Lymphocytes # (Manual) D-Dimer ABG pH POC ABG pO2 ABG pO2 ABG HCO3 ABG Hemoglobin ABG Oxyhemoglobin ABG Sodium ABG Potassium ABG Glucose Oxyhemoglobin Carboxyhemoglobin Sodium Potassium Chloride Carbon Dioxide BUN Creatinine Glucose POC Glucose 153 H 112 H Lactic Acid Calcium Phosphorus Magnesium AST ALT Troponin T C-Reactive Protein Total Protein Albumin Arterial Blood Glucose Arterial Blood Ionized Calcium Urine WBC (Auto) Urine Creatinine Valproic Acid 42.9 L 09/07/20 09/07/20 09/08/20 23:09 Unknown 05:08 WBC 13.6 H RBC 3.14 L Hgb 8.1 L Hct 25.2 L MCH 26 L MCHC RDW 15.5 H Lymph % (Auto) 6.0 L Lymph # (Auto) 0.8 L Eos # (Auto) 0.5 H Seg Neutrophils % 85.5 H Seg Neuts % (Manual) Lymphocytes % (Manual) Seg Neutrophils # 11.6 H Seg Neutrophils # Man Lymphocytes # (Manual) D-Dimer ABG pH POC ABG pO2 ABG pO2 ABG HCO3 ABG Hemoglobin ABG Oxyhemoglobin ABG Sodium ABG Potassium ABG Glucose Oxyhemoglobin Carboxyhemoglobin Sodium Potassium Chloride Carbon Dioxide BUN Creatinine Glucose POC Glucose 149 H 125 H Lactic Acid Calcium Phosphorus Magnesium AST ALT Troponin T C-Reactive Protein Total Protein Albumin Arterial Blood Glucose Arterial Blood Ionized Calcium Urine WBC (Auto) Urine Creatinine Valproic Acid 09/08/20 06:00 WBC RBC Hgb Hct MCH MCHC RDW Lymph % (Auto) Lymph # (Auto) Eos # (Auto) Seg Neutrophils % Seg Neuts % (Manual) Lymphocytes % (Manual) Seg Neutrophils # Seg Neutrophils # Man Lymphocytes # (Manual) D-Dimer ABG pH POC ABG pO2 ABG pO2 ABG HCO3 ABG Hemoglobin ABG Oxyhemoglobin ABG Sodium ABG Potassium ABG Glucose Oxyhemoglobin Carboxyhemoglobin Sodium 135 L Potassium Chloride 94.0 L Carbon Dioxide BUN 110 H Creatinine 3.7 H Glucose 127 H POC Glucose Lactic Acid Calcium Phosphorus Magnesium AST ALT Troponin T C-Reactive Protein Total Protein Albumin Arterial Blood Glucose Arterial Blood Ionized Calcium Urine WBC (Auto) Urine Creatinine Valproic Acid
--- NOTE | 2020-09-08 13:44 | Progress Note ---
Assessment and Plan This is a 75-year-old female with CHF, OHS DM, CKD, morbid obesity, GERD, hypertension, chronic respiratory failure admitted s/p cardiac arrest A/P --Anoxic encephalopathy -Neurology consulted, appreciate recommendations -08/[address] head shows no CT evidence of acute abnormality -08/28 MRI brain without contrast shows abnormal diffusion and FLAIR signal abnormality which may suggest hypoxic/ischemic brain injury, hypoglycemic encephalopathy and perhaps Creutsfeldt-Cornelius disease otherwise no focal mass, hemorrhage or hydrocephalus seen -08/30 EEG- results pending Seizure -Keppra 500 mg mg BID , vimpat, Ativan as needed for facial twitching -Seizure/aspiration precautions -per neuro prognosis poor based on MRI -NO mind altering medications - to allow for neuro assessment and brain function -opens eyes spontaneously ; pupils not reactive to light; neg threat; pos cough; withdrawal on right to deep pain; no response to deep pain on left Pt has 8 living children- updated on plan of care --S/p cardiac arrest with prolonged down time- see ER note -ddimer elevated on admit following cardiac arrest -Cardiology has seen and signed off- call if needed -08/25 echocardiogram shows LVEF 40 to 45%, LV normal size, LV systolic function mildly decreased, mild diastolic dysfunction, mildly dilated right ventricle, pulmonary hypertension RVSP 45 mmHg -asa and statin Hypertension -home norvasc , hydral added -Blood pressure monitoring per protocol -IV hydralazine as needed --Acute hypoxic respiratory failure -Chronic respiratory insufficiency at home with 3 L oxygen via nasal cannula -remains intubated and ventilated on cpap this AM -Wean as tolerated; trend pulse ox -CCM following -VAP bundle -nebs as needed Multifocal pneumonia/ ? aspiration event -08/25 CXR shows worsening patchy bilateral pulmonary opacities -08/25 CTA chest shows no evidence of pulmonary embolism, bilateral pulmonary processes with large bilateral pleural effusions, pneumonia is a concern, pulmonary edema could be a similar appearance versus pulmonary edema --Protein Calorie Malnutrition TF per nutrition bowel reg. --FLORIDALMA on CKD secondary to patient under nephropathy -Nephrology consulted, patient recommendations -Daily weights -Avoid nephrotoxic medications; avoid NITIN/ARB -bladder scan with high residuals requiring frequent intermittent caths so foreman replaced at 1230 -trend and replace electrolytes as needed -Trend Cr --Urinary retention -Foreman replaced 08/31 for urinary retention --Anemia -Admit H/H 8.6/27.8 -Transfuse for hemoglobin less than 7 -Trend CBC --VTE prophylaxis with SCD and SQH --Pneumonia -trend WBC and temp curve -afebrile -trend cultures -covid neg on admit --Diabetes mellitus -SSI -Lantus, increase as needed -Accu-Cheks every 6h -avoid hypoglycemia -hx obesity DVT/GI prophylaxis: SCDs to bilateral lower extremities heparin subcu, PPI Disposition: ICU, need to discuss with family plan of care, general surgery was consulted for PEG and trach, patient is still making decisions on patient's care. Lines: PIV; foreman The high probability of a clinically significant, sudden or life threatening deterioration of the [cardiac, pulmonary, neuro, renal, infectious disease] system(s) required my full and direct attention, intervention and personal management. The aggregate critical care time was [35] minutes. This time is in addition to time spent performing reported procedures but includes the following: [x] Data Review and interpretation [x] Patient assessment and monitoring of vital signs [x] Documentation [x] Medication orders and management Brief History: This is a 69-year-old female with OHS, DM, CKD stage IV, morbid obesity CHF, GERD, HTN, chronic respiratory failure on 3 L of home oxygen via nasal cannula who presented to the emergency department on 08/25 after being found down unresponsive at 0950 hours by family and upon EMS arrival she was unresponsive and asystolic arrest. Patient was treated with ACLS protocol with eventual ROSC after at least 15 minutes of ACLS and patient was transported to [facility]. In the emergency department patient was found to have acute hypoxic respiratory failure and subsequently intubated on vasopressor support, she underwent a CXR which showed bilateral pneumonia and exam is consistent with SIRS. CCM and cardiology were consulted and patient was admitted to the hospital service with acute hypoxic respiratory failure, anoxic encephalopathy, s/p cardiac arrest, multifocal pneumonia, FLORIDALMA on CKD. Daily clinical course: 08/26/20 patient is seen and examined. Patient is on vent. WBC 17.9 and hemoglobin 8.3 hematocrit 25.6. Patient may have 1 episode of questionable seizure. Patient BUN is 56 creatinine 3.4. Will consult nephrology. We also start the patient on Rocephin 2 g IV daily and Zithromax. Aspirin 81 mg p.o. daily and Lipitor. Patient is having echocardiogram. Cardiology and critical care will see the patient as consult tension. Continue current management. We have started on NG tube feeding and consult nutrition for evaluation. Recheck CBC BMP in the morning. Case discussed with daughter Leena [phone] 08/27: Patient remains on full ventilatory support, considering concern for seizure yesterday under the circumstance of out of hospital cardiac arrest, and concern for anoxic encephalopathy, will proceed with Neurology consultation. 08/28: At the time my examination patient sedation of propofol 30 and fentanyl 1 was being held and she was on CMV tidal and 450, rate of 18, PEEP of 6 and FiO2 of 35%. Neurology was consulted. I updated the patient's daughter Leena Payton at bedside and told her of the pending tests the neurologist has ordered. 08/29: Increase in Lantus due to persistent hypoglycemia, chest ultrasound ordered for possible thoracentesis by [facility], MRI brain pending. Remove Foreman catheter if okay with nephrology. Increase in beta-skylar by [facility] however cardiology decreased hydralazine per neurology recommendations. At the time my examination patient was on CPAP trial pressure support of 12, PEEP of 6 and 35% FiO2. RT obtain an ABG we will continue CPAP as tolerated. 08/28: No acute events overnight. Noted to have seizure, addition of vimpat 08/29: Chest US noted to have pleural effusions, cxr shows pulmonary edema, nephro ordered lasix x1. CCM and nephro had conversation son at bedside. Surgery consulted for trach/peg. [facility] plans for IR thora if family decides aggressive care 08/30 No acute overnight events 08/31: given 80mg lasix by nephro, increase in lantus, Dulcolax suppository given for no recorded BM for 5 to 6 days 72: Patient did not have a further response to 80 mg of Lasix yesterday, no acute events reported overnight, patient is having several loose BMs 09/02: Patient was having facial twitching this morning, 1 mg of Ativan was given to the patient, Keppra was increased. No family at the bedside. 09/04: Patient continues to have facial twitching, neurology has made adjustments to medications for seizure control, spoke with critical care and the son at the bedside, family still deciding on the final route of care 09/05: Patient seen and examined in the ICU, continue to have social drinking. General surgery consulted for trach and PEG. Patient with CPAP vent setting. 09/06: Patient developed sinus bradycardia, cardiology consulted. Plan for trach and PEG placement postponed.. 09/07: Family wish to continue full CODE STATUS and wished to proceed with trach and PEG. Heart rate currently stable with dopamine. Patient remains on mechanical ventilation at CMV setting. Very poor prognosis. Continue to have facial twitching, neurology following appreciate recommendation. 09/08/20: clinically no change, on mechanical ventilation. cont current care, plan for trach and PEG on Friday. family want full code. Subjective Date of service: 09/08/20 Principal diagnosis: Ac. hypoxemic resp failure; Cardiac arrest; AMS; AE-CHF; Hyperkalemia; FLORIDALMA Interval history: Patient seen and examined. Medical records and medication list reviewed. No acute event overnight noted by the RN. Vital reviewed, remains on mechanical ventilation Discussed plan of care at bedside with RN Objective - Exam Narrative Exam: GENERAL: well-developed and well-nourished elderly female lying on bed with ventilator support HEENT: Normocephalic. Atraumatic. No conjunctival congestion or icterus. Patient has moist mucous membranes. NECK: Supple. Trachea midline. CHEST/LUNGS: On mechanical ventilation with CPAP setting HEART/CARDIOVASCULAR: Regular in rate and rhythm. S1 and S2 positive. ABDOMEN: Abdomen is soft, nontender. Patient has normal bowel sounds. SKIN: There is no rash. Warm and dry. NEURO: Does not follow command MUSCULOSKELETAL: No joint effusion or tenderness. EXTRIMITY: No edema, no cyanosis or clubbing. PSYCH: Unable to assess - Constitutional Vitals: Vital Signs - 12hr 09/08/20 09/08/20 09/08/20 02:00 02:30 03:00 Temperature Pulse Rate 76 78 73 Pulse Rate [ From Monitor] Respiratory 13 17 18 Rate Blood Pressure 143/52 136/48 149/56 O2 Sat by Pulse 97 97 97 Oximetry 09/08/20 09/08/20 09/08/20 03:01 03:30 04:00 Temperature 98.8 F 98.8 F Pulse Rate 75 76 Pulse Rate [ 76 From Monitor] Respiratory 17 Rate Blood Pressure 156/63 O2 Sat by Pulse 96 99 Oximetry 09/08/20 09/08/20 09/08/20 04:04 04:06 04:30 Temperature Pulse Rate 75 74 75 Pulse Rate [ From Monitor] Respiratory 12 13 Rate Blood Pressure 157/61 153/63 O2 Sat by Pulse 98 98 98 Oximetry 09/08/20 09/08/20 09/08/20 05:00 05:30 06:00 Temperature Pulse Rate 75 75 61 Pulse Rate [ From Monitor] Respiratory 14 17 16 Rate Blood Pressure 161/62 159/62 161/62 O2 Sat by Pulse 97 Oximetry 09/08/20 09/08/20 09/08/20 06:30 06:53 07:00 Temperature Pulse Rate 65 71 70 Pulse Rate [ From Monitor] Respiratory 19 11 L Rate Blood Pressure 143/57 107/44 122/42 O2 Sat by Pulse 98 Oximetry 09/08/20 09/08/20 09/08/20 07:30 07:32 08:00 Temperature 98.6 F Pulse Rate 69 68 79 Pulse Rate [ 78 From Monitor] Respiratory 9 L 20 Rate Blood Pressure 114/47 114/47 150/55 O2 Sat by Pulse 98 99 97 Oximetry 09/08/20 09/08/20 09/08/20 08:30 08:50 09:00 Temperature Pulse Rate 79 79 78 Pulse Rate [ From Monitor] Respiratory 15 23 25 H Rate Blood Pressure 150/55 103/52 138/51 O2 Sat by Pulse 99 Oximetry 09/08/20 09/08/20 09/08/20 09:30 10:00 10:30 Temperature Pulse Rate 77 74 79 Pulse Rate [ From Monitor] Respiratory 22 24 26 H Rate Blood Pressure 129/50 128/47 103/52 O2 Sat by Pulse 97 Oximetry 09/08/20 09/08/20 09/08/20 11:00 11:30 11:36 Temperature Pulse Rate 79 78 78 Pulse Rate [ From Monitor] Respiratory 26 H 26 H 25 H Rate Blood Pressure 145/56 146/57 145/56 O2 Sat by Pulse 97 97 99 Oximetry 09/08/20 09/08/20 09/08/20 12:00 12:30 13:00 Temperature Pulse Rate 76 76 77 Pulse Rate [ 84 From Monitor] Respiratory 27 H 25 H 24 Rate Blood Pressure 144/55 125/47 116/43 O2 Sat by Pulse 100 97 Oximetry 09/08/20 13:30 Temperature Pulse Rate 77 Pulse Rate [ From Monitor] Respiratory 23 Rate Blood Pressure 122/50 O2 Sat by Pulse 96 Oximetry - Labs CBC & Chem 7: 0711/21 06:50 09/11/20 04:30 Labs: Abnormal lab results 09/07/20 09/07/20 09/07/20 Range/Units 15:28 18:00 21:21 Sodium (137-145) mmol/L Chloride (98-107) mmol/L BUN (7-17) mg/dL Creatinine (0.6-1.2) mg/dL Glucose (65-100) mg/dL POC Glucose 153 H 112 H (70-105) mg/dL Valproic Acid 42.9 L (50-100) ug/mL 09/07/20 09/08/20 09/08/20 Range/Units 23:09 05:08 06:00 Sodium 135 L (137-145) mmol/L Chloride 94.0 L (98-107) mmol/L BUN 110 H (7-17) mg/dL Creatinine 3.7 H (0.6-1.2) mg/dL Glucose 127 H (65-100) mg/dL POC Glucose 149 H 125 H (70-105) mg/dL Valproic Acid (50-100) ug/mL HEART Score - HEART Score Troponin: Troponin T 0.057 ng/mL (0.00-0.029) H 08/25/20 11:23
--- NOTE | 2020-09-08 14:14 | Progress Note ---
Assessment and Plan - Patient Problems (1) Anoxic brain injury Current Visit: Yes Status: Acute Plan to address problem: 1) Will place tracheostomy and PEG next week if family/hospital team deem these to be necessary. Subjective Date of service: 09/08/20 Patient Reports: Positive: no new complaints (Hospitalist and Neurology notes read.) Objective Vital Signs - 12hr 09/08/20 09/08/20 09/08/20 02:30 03:00 03:01 Temperature 98.8 F Pulse Rate 78 73 Pulse Rate [ From Monitor] Respiratory 17 18 Rate Blood Pressure 136/48 149/56 O2 Sat by Pulse 97 97 Oximetry 09/08/20 09/08/20 09/08/20 03:30 04:00 04:04 Temperature 98.8 F Pulse Rate 75 76 75 Pulse Rate [ 76 From Monitor] Respiratory 17 Rate Blood Pressure 156/63 157/61 O2 Sat by Pulse 96 99 98 Oximetry 09/08/20 09/08/20 09/08/20 04:06 04:30 05:00 Temperature Pulse Rate 74 75 75 Pulse Rate [ From Monitor] Respiratory 12 13 14 Rate Blood Pressure 153/63 161/62 O2 Sat by Pulse 98 98 Oximetry 09/08/20 09/08/20 09/08/20 05:30 06:00 06:30 Temperature Pulse Rate 75 61 65 Pulse Rate [ From Monitor] Respiratory 17 16 19 Rate Blood Pressure 159/62 161/62 143/57 O2 Sat by Pulse 97 Oximetry 09/08/20 09/08/20 09/08/20 06:53 07:00 07:30 Temperature Pulse Rate 71 70 69 Pulse Rate [ From Monitor] Respiratory 11 L 9 L Rate Blood Pressure 107/44 122/42 114/47 O2 Sat by Pulse 98 98 Oximetry 09/08/20 09/08/20 09/08/20 07:32 08:00 08:30 Temperature 98.6 F Pulse Rate 68 79 79 Pulse Rate [ 78 From Monitor] Respiratory 20 15 Rate Blood Pressure 114/47 150/55 150/55 O2 Sat by Pulse 99 97 Oximetry 09/08/20 09/08/20 09/08/20 08:50 09:00 09:30 Temperature Pulse Rate 79 78 77 Pulse Rate [ From Monitor] Respiratory 23 25 H 22 Rate Blood Pressure 103/52 138/51 129/50 O2 Sat by Pulse 99 Oximetry 09/08/20 09/08/20 09/08/20 10:00 10:30 11:00 Temperature Pulse Rate 74 79 79 Pulse Rate [ From Monitor] Respiratory 24 26 H 26 H Rate Blood Pressure 128/47 103/52 145/56 O2 Sat by Pulse 97 97 Oximetry 09/08/20 09/08/20 09/08/20 11:30 11:36 12:00 Temperature Pulse Rate 78 78 76 Pulse Rate [ 84 From Monitor] Respiratory 26 H 25 H 27 H Rate Blood Pressure 146/57 145/56 144/55 O2 Sat by Pulse 97 99 100 Oximetry 09/08/20 09/08/20 09/08/20 12:30 13:00 13:30 Temperature Pulse Rate 76 77 77 Pulse Rate [ From Monitor] Respiratory 25 H 24 23 Rate Blood Pressure 125/47 116/43 122/50 O2 Sat by Pulse 97 96 Oximetry - Labs 09/07/20 Unknown 09/08/20 06:00 Diabetes panel 09/08/20 Range/Units 06:00 Sodium 135 L (137-145) mmol/L Potassium 4.1 (3.6-5.0) mmol/L Chloride 94.0 L (98-107) mmol/L Carbon Dioxide 25 (22-30) mmol/L BUN 110 H (7-17) mg/dL Creatinine 3.7 H (0.6-1.2) mg/dL Glucose 127 H (65-100) mg/dL Calcium 9.0 (8.4-10.2) mg/dL Calcium panel 09/08/20 Range/Units 06:00 Calcium 9.0 (8.4-10.2) mg/dL Pituitary panel 09/08/20 Range/Units 06:00 Sodium 135 L (137-145) mmol/L Potassium 4.1 (3.6-5.0) mmol/L Chloride 94.0 L (98-107) mmol/L Carbon Dioxide 25 (22-30) mmol/L BUN 110 H (7-17) mg/dL Creatinine 3.7 H (0.6-1.2) mg/dL Glucose 127 H (65-100) mg/dL Calcium 9.0 (8.4-10.2) mg/dL Adrenal panel 09/08/20 Range/Units 06:00 Sodium 135 L (137-145) mmol/L Potassium 4.1 (3.6-5.0) mmol/L Chloride 94.0 L (98-107) mmol/L Carbon Dioxide 25 (22-30) mmol/L BUN 110 H (7-17) mg/dL Creatinine 3.7 H (0.6-1.2) mg/dL Glucose 127 H (65-100) mg/dL Calcium 9.0 (8.4-10.2) mg/dL
[2020-09-08] MEDS: MIDAZOLAM 100 MG in SODIUM CHLORIDE 0.9% 80 ML IV SCH (18:01)
[2020-09-09] MEDS: INSULIN GLARGINE 100 UNITS/ML SUB-Q SCH ×2 (00:30→17:37)
[2020-09-09] MEDS: LACOSAMIDE 200 MG in SODIUM CHLORIDE 0.9% 100 ML IV SCH ×2 (02:13→11:07)
[2020-09-09] MEDS: INSULIN LISPRO 100 UNIT/ML SUB-Q SCH ×4 (02:30→18:38)
[2020-09-09 07:01] LABS: Calcium 7.8 mg/dL (8.4-10.2)
[2020-09-09] MEDS: VALPROATE SODIUM 750 MG in SODIUM CHLORIDE 0.9% 100 ML IV SCH ×3 (08:03→21:21)
[2020-09-09] MEDS: HEPARIN 5,000 UNIT/1 ML VIAL SUB-Q SCH ×2 (09:28→21:19)
[2020-09-09] MEDS: FAMOTIDINE 20 MG TAB PO SCH (09:28)
[2020-09-09] MEDS: SENNOSIDES/DOCUSATE SODIUM 8.6/50 MG TAB FEEDTUBE SCH ×2 (09:28→21:21)
[2020-09-09] MEDS: levETIRAcetam 500 MG in DEXTROSE 5% IN WATER 100 ML IV SCH ×2 (09:28→21:21)
[2020-09-09] MEDS: ASPIRIN 81 MG TAB CHEW PO SCH (09:28)
[2020-09-09] MEDS: TAMSULOSIN 0.4 MG CAP PO SCH (09:28)
--- NOTE | 2020-09-09 11:27 | Progress Note ---
Assessment and Plan Assessment and Plan Assessment and plan: This is a 75-year-old female with CHF, OHS DM, CKD, morbid obesity, GERD, hypertension, chronic respiratory failure admitted s/p cardiac arrest #NEURO -Anoxic encephalopathy -08/[address] head shows no CT evidence of acute abnormality -08/28 MRI brain without contrast shows abnormal diffusion and FLAIR signal abnormality which may suggest hypoxic/ischemic brain injury, -08/30 EEG- remarkable for diffuse slowing 3-4 Hz no clear epileptiform discharges is noted - Today she is with facial twitching left>Right face mainly Seizure can not be excluded --- Repeat EEG is remarkable for recurrent right frontal rubio and a run for over 200 sec. of generalized 3 hz rhythmic activity associated with the left facial twitching with focal seizure is most likley is present ... -repeat EEG yesterday is remarkable for diffuse slowing and BIPLED is noted intermittently , no clear generalized seizure is noted during facial twitching - Consider stop versed if improvment in facial twitching , back ground is in 2- 3 Hz slowing -Keppra decrease to 500 mg BID due to elevated creatinine ,give IV, vimpat is to increased to 200 mg IV bid will add valproic acid 750 mg IV tid and or in [place] tube , Ativan as needed for facial twitching -Seizure/aspiration precautions -Prognosis over all is poor -Only slight gag reflex is present --she is on versed 3mc -Pt has 8 living children- updated on plan of care Case Management following if decision is not made by family in 48 hours we will order trach/Peg Friday (09/04) #CV -NSR -S/p cardiac arrest with prolonged down time- -ddimer elevated on admit following cardiac arrest -Cardiology has seen and signed off- call if needed -08/25 echocardiogram shows LVEF 40 to 45%, LV normal size, LV systolic function mildly decreased, mild diastolic dysfunction, mildly dilated right ventricle, - pulmonary hypertension RVSP 45 mmHg -asa and statin -Hypertension -home norvasc , hydral added -Blood pressure monitoring per protocol -IV hydralazine as needed #RESP Acute hypoxic respiratory failure -Chronic respiratory insufficiency at home with 3 L oxygen via nasal cannula -remains intubated and ventilated on cpap this AM -Wean as tolerated; trend pulse ox -CCM following -VAP bundle -nebs as needed Multifocal pneumonia/ ? aspiration event -08/25 CXR shows worsening patchy bilateral pulmonary opacities -08/25 CTA chest shows no evidence of pulmonary embolism, bilateral pulmonary processes with large bilateral pleural effusions, pneumonia is a concern, pulmonary edema could be a similar appearance versus pulmonary edema # FLORIDALMA on CKD secondary to patient under nephropathy -trend and replace electrolytes as needed -Trend Cr #Urinary retention -Foreman replaced 08/31 for urinary retention #HEME Anemia -Admit H/H 8.6/27.8 #VTE prophylaxis with SCD and SQH #ID -Pneumonia -covid neg on admit #ENDO Diabetes mellitus DVT/GI prophylaxis: SCDs to bilateral lower extremities heparin subcu, PPI Disposition: ICU, need to discuss with family plan of care Lines: PIV; foreman pt. is evaluated in ICU time spent evaluating chart and lab result as well as test and exam pt. is >40 minutes Prognosis is poor Subjective Date of service: 09/09/20 Principal diagnosis: Ac. hypoxemic resp failure; Cardiac arrest; AMS; AE-CHF; Hyperkalemia; FLORIDALMA Interval history: status is unchanged not following command on vent , vital stable Off Dopamin off Bet skylar , on 1 mc versed, not responding to verbal or sternal rub. family requested peg tube and trachestomy done EEG noted valproic acid level is #48 No facial twitching is noted >24 hours Bun/Cr#113/3.7 Objective - Vital Sign Vital Signs - 12hr 09/08/20 09/09/20 09/09/20 23:33 00:00 01:00 Temperature 98.9 F Pulse Rate 68 74 Pulse Rate [ 70 From Monitor] Respiratory 19 19 Rate Blood Pressure 122/46 119/51 O2 Sat by Pulse 97 96 Oximetry 09/09/20 09/09/20 09/09/20 02:00 03:00 03:22 Temperature 98.6 F Pulse Rate 70 66 Pulse Rate [ From Monitor] Respiratory 21 15 Rate Blood Pressure 106/43 88/35 O2 Sat by Pulse 97 Oximetry 09/09/20 09/09/20 09/09/20 03:56 04:00 05:00 Temperature Pulse Rate 68 69 69 Pulse Rate [ 70 From Monitor] Respiratory 22 19 Rate Blood Pressure 113/39 122/51 122/51 O2 Sat by Pulse 99 98 Oximetry 09/09/20 09/09/20 09/09/20 06:01 07:01 07:28 Temperature Pulse Rate 74 71 71 Pulse Rate [ From Monitor] Respiratory 25 H 21 Rate Blood Pressure 102/37 133/45 136/49 O2 Sat by Pulse 96 98 97 Oximetry 09/09/20 09/09/20 09/09/20 07:40 07:47 08:00 Temperature 98.6 F Pulse Rate 74 Pulse Rate [ 74 From Monitor] Respiratory 26 H Rate Blood Pressure 93/42 O2 Sat by Pulse 99 98 Oximetry 09/09/20 09/09/20 09/09/20 08:01 09:01 10:01 Temperature Pulse Rate 70 69 74 Pulse Rate [ From Monitor] Respiratory 31 H 27 H 27 H Rate Blood Pressure 110/37 100/34 141/49 O2 Sat by Pulse 95 99 98 Oximetry 09/09/20 11:01 Temperature Pulse Rate 71 Pulse Rate [ From Monitor] Respiratory 27 H Rate Blood Pressure 118/38 O2 Sat by Pulse 95 Oximetry - General Apperance Constitutional: comfortable - EENT EENT: PERRL, mucous membranes moist - Respiratory Respiratory: chest non-tender, lungs clear, rhonchi - Cardiovascular Cardiovascular: regular rate, normal S1, normal S2 Extremities: no peripheral edema bilat, no clubbing, cyanosis - Gastrointestinal Gastrointestinal: normoactive bowel sounds - Integumentary Integumentary: normal - Neurologic Cranial nerve examination: PERRL, EOMI, VFF, other (EOM slightly intact ,gag is intact ,pupils sluggish 2 mm some breathing effort is noted, no movment . ) - Laboratory Findings CBC and BMP: 09/07/20 Unknown 09/09/20 04:55 Abnormal Lab Findings: Abnormal Labs 08/25/20 08/25/20 08/25/20 11:14 11:17 11:23 WBC 11.5 H RBC 3.22 L Hgb 8.6 L Hct 27.6 L MCH 27 L MCHC RDW 15.6 H Lymph % (Auto) Lymph # (Auto) Eos # (Auto) Seg Neutrophils % Seg Neuts % (Manual) 89.0 H Lymphocytes % (Manual) 5.0 L Seg Neutrophils # Seg Neutrophils # Man 10.2 H Lymphocytes # (Manual) 0.6 L D-Dimer ABG pH 7.290 L POC ABG pO2 161.1 H ABG pO2 ABG HCO3 ABG Hemoglobin 8.9 L ABG Oxyhemoglobin 98.6 H ABG Sodium 135.2 L ABG Potassium 5.9 H ABG Glucose 210 H Oxyhemoglobin Carboxyhemoglobin 0.4 L Sodium Potassium Chloride Carbon Dioxide BUN Creatinine Glucose POC Glucose Lactic Acid Calcium Phosphorus Magnesium AST ALT Troponin T C-Reactive Protein Total Protein Albumin Arterial Blood Glucose 210 H Arterial Blood Ionized Calcium 4.4 L Urine WBC (Auto) 31.0 H Urine Creatinine Valproic Acid 08/25/20 08/25/20 08/25/20 11:23 11:23 11:23 WBC RBC Hgb Hct MCH MCHC RDW Lymph % (Auto) Lymph # (Auto) Eos # (Auto) Seg Neutrophils % Seg Neuts % (Manual) Lymphocytes % (Manual) Seg Neutrophils # Seg Neutrophils # Man Lymphocytes # (Manual) D-Dimer > 40423 H ABG pH POC ABG pO2 ABG pO2 ABG HCO3 ABG Hemoglobin ABG Oxyhemoglobin ABG Sodium ABG Potassium ABG Glucose Oxyhemoglobin Carboxyhemoglobin Sodium Potassium 6.4 H* Chloride Carbon Dioxide 21 L BUN 52 H Creatinine 3.5 H Glucose 194 H POC Glucose Lactic Acid 3.30 H* Calcium 8.1 L Phosphorus Magnesium AST 103 H ALT 77 H Troponin T 0.057 H C-Reactive Protein Total Protein 5.8 L Albumin 3.4 L Arterial Blood Glucose Arterial Blood Ionized Calcium Urine WBC (Auto) Urine Creatinine Valproic Acid 08/25/20 08/25/20 08/25/20 13:51 15:45 20:34 WBC RBC Hgb Hct MCH MCHC RDW Lymph % (Auto) Lymph # (Auto) Eos # (Auto) Seg Neutrophils % Seg Neuts % (Manual) Lymphocytes % (Manual) Seg Neutrophils # Seg Neutrophils # Man Lymphocytes # (Manual) D-Dimer ABG pH POC ABG pO2 66.3 L ABG pO2 ABG HCO3 ABG Hemoglobin 9.1 L ABG Oxyhemoglobin 92.5 L ABG Sodium ABG Potassium ABG Glucose 225 H Oxyhemoglobin Carboxyhemoglobin Sodium Potassium Chloride Carbon Dioxide BUN Creatinine Glucose POC Glucose 188 H 233 H Lactic Acid Calcium Phosphorus Magnesium AST ALT Troponin T C-Reactive Protein Total Protein Albumin Arterial Blood Glucose 225 H Arterial Blood Ionized Calcium 4.4 L Urine WBC (Auto) Urine Creatinine Valproic Acid 08/26/20 08/26/20 08/26/20 04:14 05:04 05:04 WBC 17.9 H RBC 3.05 L Hgb 8.3 L Hct 25.6 L MCH 27 L MCHC RDW 15.3 H Lymph % (Auto) Lymph # (Auto) Eos # (Auto) Seg Neutrophils % Seg Neuts % (Manual) 96.0 H Lymphocytes % (Manual) 1.0 L Seg Neutrophils # Seg Neutrophils # Man 17.2 H Lymphocytes # (Manual) 0.2 L D-Dimer ABG pH POC ABG pO2 131.3 H ABG pO2 ABG HCO3 ABG Hemoglobin 8.6 L ABG Oxyhemoglobin 98.2 H ABG Sodium ABG Potassium ABG Glucose 182 H Oxyhemoglobin Carboxyhemoglobin 0.2 L Sodium Potassium Chloride Carbon Dioxide BUN 56 H Creatinine 3.4 H Glucose 187 H POC Glucose Lactic Acid Calcium 8.3 L Phosphorus Magnesium AST 54 H ALT 57 H Troponin T C-Reactive Protein Total Protein 5.4 L Albumin 2.9 L Arterial Blood Glucose 182 H Arterial Blood Ionized Calcium 4.3 L Urine WBC (Auto) Urine Creatinine Valproic Acid 08/26/20 08/26/20 08/26/20 05:40 07:36 11:54 WBC RBC Hgb Hct MCH MCHC RDW Lymph % (Auto) Lymph # (Auto) Eos # (Auto) Seg Neutrophils % Seg Neuts % (Manual) Lymphocytes % (Manual) Seg Neutrophils # Seg Neutrophils # Man Lymphocytes # (Manual) D-Dimer ABG pH POC ABG pO2 ABG pO2 ABG HCO3 ABG Hemoglobin ABG Oxyhemoglobin ABG Sodium ABG Potassium ABG Glucose Oxyhemoglobin Carboxyhemoglobin Sodium Potassium Chloride Carbon Dioxide BUN Creatinine Glucose POC Glucose 179 H 171 H 190 H Lactic Acid Calcium Phosphorus Magnesium AST ALT Troponin T C-Reactive Protein Total Protein Albumin Arterial Blood Glucose Arterial Blood Ionized Calcium Urine WBC (Auto) Urine Creatinine Valproic Acid 08/26/20 08/26/20 08/26/20 15:14 17:00 18:50 WBC RBC Hgb Hct MCH MCHC RDW Lymph % (Auto) Lymph # (Auto) Eos # (Auto) Seg Neutrophils % Seg Neuts % (Manual) Lymphocytes % (Manual) Seg Neutrophils # Seg Neutrophils # Man Lymphocytes # (Manual) D-Dimer ABG pH POC ABG pO2 ABG pO2 ABG HCO3 ABG Hemoglobin ABG Oxyhemoglobin ABG Sodium ABG Potassium ABG Glucose Oxyhemoglobin Carboxyhemoglobin Sodium Potassium Chloride Carbon Dioxide BUN Creatinine Glucose POC Glucose 158 H Lactic Acid Calcium Phosphorus Magnesium AST ALT Troponin T C-Reactive Protein 7.80 H Total Protein Albumin Arterial Blood Glucose Arterial Blood Ionized Calcium Urine WBC (Auto) Urine Creatinine 67.4 H Valproic Acid 08/26/20 08/27/20 08/27/20 22:01 04:10 05:12 WBC RBC Hgb Hct MCH MCHC RDW Lymph % (Auto) Lymph # (Auto) Eos # (Auto) Seg Neutrophils % Seg Neuts % (Manual) Lymphocytes % (Manual) Seg Neutrophils # Seg Neutrophils # Man Lymphocytes # (Manual) D-Dimer ABG pH 7.454 H POC ABG pO2 74.9 L ABG pO2 ABG HCO3 ABG Hemoglobin 7.9 L ABG Oxyhemoglobin ABG Sodium ABG Potassium ABG Glucose 117 H Oxyhemoglobin Carboxyhemoglobin Sodium Potassium Chloride Carbon Dioxide BUN Creatinine Glucose POC Glucose 122 H 117 H Lactic Acid Calcium Phosphorus Magnesium AST ALT Troponin T C-Reactive Protein Total Protein Albumin Arterial Blood Glucose 117 H Arterial Blood Ionized Calcium 4.4 L Urine WBC (Auto) Urine Creatinine Valproic Acid 08/27/20 08/27/20 08/27/20 07:24 07:24 11:08 WBC 12.7 H RBC 2.92 L Hgb 8.1 L Hct 24.4 L MCH MCHC RDW 15.4 H Lymph % (Auto) 5.9 L Lymph # (Auto) 0.8 L Eos # (Auto) Seg Neutrophils % 86.9 H Seg Neuts % (Manual) Lymphocytes % (Manual) Seg Neutrophils # 11.0 H Seg Neutrophils # Man Lymphocytes # (Manual) D-Dimer ABG pH POC ABG pO2 ABG pO2 ABG HCO3 ABG Hemoglobin ABG Oxyhemoglobin ABG Sodium ABG Potassium ABG Glucose Oxyhemoglobin Carboxyhemoglobin Sodium Potassium Chloride Carbon Dioxide BUN 60 H Creatinine 3.6 H Glucose 135 H POC Glucose 139 H Lactic Acid Calcium Phosphorus Magnesium AST ALT Troponin T C-Reactive Protein Total Protein 5.3 L Albumin 2.6 L Arterial Blood Glucose Arterial Blood Ionized Calcium Urine WBC (Auto) Urine Creatinine Valproic Acid 08/27/20 08/27/20 08/27/20 11:19 17:31 23:25 WBC RBC Hgb Hct MCH MCHC RDW Lymph % (Auto) Lymph # (Auto) Eos # (Auto) Seg Neutrophils % Seg Neuts % (Manual) Lymphocytes % (Manual) Seg Neutrophils # Seg Neutrophils # Man Lymphocytes # (Manual) D-Dimer ABG pH POC ABG pO2 ABG pO2 ABG HCO3 ABG Hemoglobin ABG Oxyhemoglobin ABG Sodium ABG Potassium ABG Glucose Oxyhemoglobin Carboxyhemoglobin Sodium Potassium Chloride Carbon Dioxide BUN Creatinine Glucose POC Glucose 143 H 140 H 123 H Lactic Acid Calcium Phosphorus Magnesium AST ALT Troponin T C-Reactive Protein Total Protein Albumin Arterial Blood Glucose Arterial Blood Ionized Calcium Urine WBC (Auto) Urine Creatinine Valproic Acid 08/28/20 08/28/20 08/28/20 03:50 04:19 04:19 WBC RBC 2.80 L Hgb 7.8 L Hct 23.6 L MCH MCHC RDW 15.8 H Lymph % (Auto) Lymph # (Auto) Eos # (Auto) Seg Neutrophils % Seg Neuts % (Manual) Lymphocytes % (Manual) Seg Neutrophils # Seg Neutrophils # Man Lymphocytes # (Manual) D-Dimer ABG pH 7.329 L POC ABG pO2 ABG pO2 76.7 L ABG HCO3 27.0 H ABG Hemoglobin 7.5 L ABG Oxyhemoglobin ABG Sodium ABG Potassium ABG Glucose Oxyhemoglobin 93.6 L Carboxyhemoglobin Sodium 135 L Potassium Chloride Carbon Dioxide BUN 64 H Creatinine 3.8 H Glucose 143 H POC Glucose Lactic Acid Calcium 8.0 L Phosphorus Magnesium AST ALT Troponin T C-Reactive Protein Total Protein 4.8 L Albumin 2.4 L Arterial Blood Glucose Arterial Blood Ionized Calcium Urine WBC (Auto) Urine Creatinine Valproic Acid 08/28/20 08/28/20 08/28/20 05:35 11:22 17:18 WBC RBC Hgb Hct MCH MCHC RDW Lymph % (Auto) Lymph # (Auto) Eos # (Auto) Seg Neutrophils % Seg Neuts % (Manual) Lymphocytes % (Manual) Seg Neutrophils # Seg Neutrophils # Man Lymphocytes # (Manual) D-Dimer ABG pH POC ABG pO2 ABG pO2 ABG HCO3 ABG Hemoglobin ABG Oxyhemoglobin ABG Sodium ABG Potassium ABG Glucose Oxyhemoglobin Carboxyhemoglobin Sodium Potassium Chloride Carbon Dioxide BUN Creatinine Glucose POC Glucose 147 H 182 H 216 H Lactic Acid Calcium Phosphorus Magnesium AST ALT Troponin T C-Reactive Protein Total Protein Albumin Arterial Blood Glucose Arterial Blood Ionized Calcium Urine WBC (Auto) Urine Creatinine Valproic Acid 08/28/20 08/28/20 08/29/20 21:04 23:20 04:32 WBC RBC Hgb Hct MCH MCHC RDW Lymph % (Auto) Lymph # (Auto) Eos # (Auto) Seg Neutrophils % Seg Neuts % (Manual) Lymphocytes % (Manual) Seg Neutrophils # Seg Neutrophils # Man Lymphocytes # (Manual) D-Dimer ABG pH POC ABG pO2 ABG pO2 ABG HCO3 ABG Hemoglobin ABG Oxyhemoglobin ABG Sodium ABG Potassium ABG Glucose Oxyhemoglobin Carboxyhemoglobin Sodium 135 L Potassium Chloride 96.0 L Carbon Dioxide BUN 67 H Creatinine 3.8 H Glucose 200 H POC Glucose 204 H 242 H Lactic Acid Calcium 8.2 L Phosphorus Magnesium AST ALT Troponin T C-Reactive Protein Total Protein Albumin Arterial Blood Glucose Arterial Blood Ionized Calcium Urine WBC (Auto) Urine Creatinine Valproic Acid 08/29/20 08/29/20 08/29/20 04:32 04:50 04:59 WBC RBC 3.25 L Hgb 9.0 L Hct 27.0 L MCH MCHC RDW 16.1 H Lymph % (Auto) Lymph # (Auto) Eos # (Auto) Seg Neutrophils % Seg Neuts % (Manual) Lymphocytes % (Manual) Seg Neutrophils # Seg Neutrophils # Man Lymphocytes # (Manual) D-Dimer ABG pH POC ABG pO2 ABG pO2 ABG HCO3 ABG Hemoglobin 8.8 L ABG Oxyhemoglobin ABG Sodium ABG Potassium ABG Glucose Oxyhemoglobin Carboxyhemoglobin Sodium Potassium Chloride Carbon Dioxide BUN Creatinine Glucose POC Glucose 201 H Lactic Acid Calcium Phosphorus Magnesium AST ALT Troponin T C-Reactive Protein Total Protein Albumin Arterial Blood Glucose Arterial Blood Ionized Calcium Urine WBC (Auto) Urine Creatinine Valproic Acid 08/29/20 08/29/20 08/29/20 11:10 11:28 17:50 WBC RBC Hgb Hct MCH MCHC RDW Lymph % (Auto) Lymph # (Auto) Eos # (Auto) Seg Neutrophils % Seg Neuts % (Manual) Lymphocytes % (Manual) Seg Neutrophils # Seg Neutrophils # Man Lymphocytes # (Manual) D-Dimer ABG pH POC ABG pO2 ABG pO2 78.7 L ABG HCO3 26.6 H ABG Hemoglobin 9.8 L ABG Oxyhemoglobin ABG Sodium ABG Potassium ABG Glucose Oxyhemoglobin 94.3 L Carboxyhemoglobin Sodium Potassium Chloride Carbon Dioxide BUN Creatinine Glucose POC Glucose 219 H 203 H Lactic Acid Calcium Phosphorus Magnesium AST ALT Troponin T C-Reactive Protein Total Protein Albumin Arterial Blood Glucose Arterial Blood Ionized Calcium Urine WBC (Auto) Urine Creatinine Valproic Acid 08/29/20 08/29/20 08/30/20 21:31 23:28 04:14 WBC RBC Hgb Hct MCH MCHC RDW Lymph % (Auto) Lymph # (Auto) Eos # (Auto) Seg Neutrophils % Seg Neuts % (Manual) Lymphocytes % (Manual) Seg Neutrophils # Seg Neutrophils # Man Lymphocytes # (Manual) D-Dimer ABG pH POC ABG pO2 ABG pO2 ABG HCO3 ABG Hemoglobin ABG Oxyhemoglobin ABG Sodium ABG Potassium ABG Glucose Oxyhemoglobin Carboxyhemoglobin Sodium 132 L Potassium Chloride 94.8 L Carbon Dioxide BUN 68 H Creatinine 3.7 H Glucose 214 H POC Glucose 204 H 215 H Lactic Acid Calcium Phosphorus Magnesium AST ALT Troponin T C-Reactive Protein Total Protein Albumin Arterial Blood Glucose Arterial Blood Ionized Calcium Urine WBC (Auto) Urine Creatinine Valproic Acid 08/30/20 08/30/20 08/30/20 05:10 11:33 17:32 WBC RBC Hgb Hct MCH MCHC RDW Lymph % (Auto) Lymph # (Auto) Eos # (Auto) Seg Neutrophils % Seg Neuts % (Manual) Lymphocytes % (Manual) Seg Neutrophils # Seg Neutrophils # Man Lymphocytes # (Manual) D-Dimer ABG pH POC ABG pO2 ABG pO2 ABG HCO3 ABG Hemoglobin ABG Oxyhemoglobin ABG Sodium ABG Potassium ABG Glucose Oxyhemoglobin Carboxyhemoglobin Sodium Potassium Chloride Carbon Dioxide BUN Creatinine Glucose POC Glucose 210 H 194 H 202 H Lactic Acid Calcium Phosphorus Magnesium AST ALT Troponin T C-Reactive Protein Total Protein Albumin Arterial Blood Glucose Arterial Blood Ionized Calcium Urine WBC (Auto) Urine Creatinine Valproic Acid 08/30/20 08/30/20 08/30/20 21:39 23:21 Unknown WBC RBC Hgb Hct MCH MCHC RDW Lymph % (Auto) Lymph # (Auto) Eos # (Auto) Seg Neutrophils % Seg Neuts % (Manual) Lymphocytes % (Manual) Seg Neutrophils # Seg Neutrophils # Man Lymphocytes # (Manual) D-Dimer ABG pH POC ABG pO2 ABG pO2 99.0 H ABG HCO3 ABG Hemoglobin 9.8 L ABG Oxyhemoglobin ABG Sodium ABG Potassium ABG Glucose Oxyhemoglobin Carboxyhemoglobin Sodium Potassium Chloride Carbon Dioxide BUN Creatinine Glucose POC Glucose 199 H 209 H Lactic Acid Calcium Phosphorus Magnesium AST ALT Troponin T C-Reactive Protein Total Protein Albumin Arterial Blood Glucose Arterial Blood Ionized Calcium Urine WBC (Auto) Urine Creatinine Valproic Acid 08/31/20 08/31/20 08/31/20 04:10 05:19 10:57 WBC RBC Hgb Hct MCH MCHC RDW Lymph % (Auto) Lymph # (Auto) Eos # (Auto) Seg Neutrophils % Seg Neuts % (Manual) Lymphocytes % (Manual) Seg Neutrophils # Seg Neutrophils # Man Lymphocytes # (Manual) D-Dimer ABG pH 7.451 H POC ABG pO2 ABG pO2 99.6 H ABG HCO3 ABG Hemoglobin 8.4 L ABG Oxyhemoglobin ABG Sodium ABG Potassium ABG Glucose Oxyhemoglobin Carboxyhemoglobin Sodium 133 L Potassium Chloride 96.4 L Carbon Dioxide BUN 74 H Creatinine 3.8 H Glucose 201 H POC Glucose 182 H Lactic Acid Calcium 7.6 L Phosphorus Magnesium AST ALT Troponin T C-Reactive Protein Total Protein Albumin Arterial Blood Glucose Arterial Blood Ionized Calcium Urine WBC (Auto) Urine Creatinine Valproic Acid 08/31/20 08/31/20 08/31/20 10:57 12:32 17:15 WBC 11.4 H RBC 3.24 L Hgb 8.5 L Hct 26.6 L MCH 26 L MCHC RDW 15.6 H Lymph % (Auto) Lymph # (Auto) Eos # (Auto) Seg Neutrophils % Seg Neuts % (Manual) Lymphocytes % (Manual) Seg Neutrophils # Seg Neutrophils # Man Lymphocytes # (Manual) D-Dimer ABG pH POC ABG pO2 ABG pO2 ABG HCO3 ABG Hemoglobin ABG Oxyhemoglobin ABG Sodium ABG Potassium ABG Glucose Oxyhemoglobin Carboxyhemoglobin Sodium Potassium Chloride Carbon Dioxide BUN Creatinine Glucose POC Glucose 217 H 203 H Lactic Acid Calcium Phosphorus Magnesium AST ALT Troponin T C-Reactive Protein Total Protein Albumin Arterial Blood Glucose Arterial Blood Ionized Calcium Urine WBC (Auto) Urine Creatinine Valproic Acid 09/01/20 09/01/20 09/01/20 00:06 05:05 09:41 WBC RBC Hgb Hct MCH MCHC RDW Lymph % (Auto) Lymph # (Auto) Eos # (Auto) Seg Neutrophils % Seg Neuts % (Manual) Lymphocytes % (Manual) Seg Neutrophils # Seg Neutrophils # Man Lymphocytes # (Manual) D-Dimer ABG pH POC ABG pO2 ABG pO2 ABG HCO3 ABG Hemoglobin ABG Oxyhemoglobin ABG Sodium ABG Potassium ABG Glucose Oxyhemoglobin Carboxyhemoglobin Sodium 134 L Potassium Chloride 95.2 L Carbon Dioxide BUN 81 H Creatinine 3.7 H Glucose 201 H POC Glucose 223 H 225 H Lactic Acid Calcium Phosphorus 4.60 H Magnesium 2.40 H AST ALT Troponin T C-Reactive Protein Total Protein Albumin Arterial Blood Glucose Arterial Blood Ionized Calcium Urine WBC (Auto) Urine Creatinine Valproic Acid 09/01/20 09/01/20 09/01/20 09:41 12:51 13:08 WBC 11.5 H RBC 3.58 L Hgb 9.2 L Hct 29.7 L MCH 26 L MCHC RDW 16.0 H Lymph % (Auto) Lymph # (Auto) Eos # (Auto) Seg Neutrophils % Seg Neuts % (Manual) Lymphocytes % (Manual) Seg Neutrophils # Seg Neutrophils # Man Lymphocytes # (Manual) D-Dimer ABG pH 7.462 H POC ABG pO2 ABG pO2 ABG HCO3 ABG Hemoglobin 9.5 L ABG Oxyhemoglobin ABG Sodium 130.4 L ABG Potassium ABG Glucose 208 H Oxyhemoglobin Carboxyhemoglobin 0.4 L Sodium Potassium Chloride Carbon Dioxide BUN Creatinine Glucose POC Glucose 182 H Lactic Acid Calcium Phosphorus Magnesium AST ALT Troponin T C-Reactive Protein Total Protein Albumin Arterial Blood Glucose 208 H Arterial Blood Ionized Calcium 4.5 L Urine WBC (Auto) Urine Creatinine Valproic Acid 09/01/20 09/01/20 09/02/20 18:34 23:14 05:22 WBC RBC Hgb Hct MCH MCHC RDW Lymph % (Auto) Lymph # (Auto) Eos # (Auto) Seg Neutrophils % Seg Neuts % (Manual) Lymphocytes % (Manual) Seg Neutrophils # Seg Neutrophils # Man Lymphocytes # (Manual) D-Dimer ABG pH POC ABG pO2 ABG pO2 ABG HCO3 ABG Hemoglobin ABG Oxyhemoglobin ABG Sodium ABG Potassium ABG Glucose Oxyhemoglobin Carboxyhemoglobin Sodium Potassium Chloride Carbon Dioxide BUN Creatinine Glucose POC Glucose 183 H 181 H 178 H Lactic Acid Calcium Phosphorus Magnesium AST ALT Troponin T C-Reactive Protein Total Protein Albumin Arterial Blood Glucose Arterial Blood Ionized Calcium Urine WBC (Auto) Urine Creatinine Valproic Acid 09/02/20 09/02/20 09/02/20 07:35 11:16 17:39 WBC RBC Hgb Hct MCH MCHC RDW Lymph % (Auto) Lymph # (Auto) Eos # (Auto) Seg Neutrophils % Seg Neuts % (Manual) Lymphocytes % (Manual) Seg Neutrophils # Seg Neutrophils # Man Lymphocytes # (Manual) D-Dimer ABG pH POC ABG pO2 ABG pO2 ABG HCO3 ABG Hemoglobin ABG Oxyhemoglobin ABG Sodium ABG Potassium ABG Glucose Oxyhemoglobin Carboxyhemoglobin Sodium 135 L Potassium Chloride 96.0 L Carbon Dioxide BUN 88 H Creatinine 3.7 H Glucose 187 H POC Glucose 228 H 165 H Lactic Acid Calcium Phosphorus Magnesium AST ALT Troponin T C-Reactive Protein Total Protein Albumin Arterial Blood Glucose Arterial Blood Ionized Calcium Urine WBC (Auto) Urine Creatinine Valproic Acid 09/02/20 09/03/20 09/03/20 23:24 05:35 08:31 WBC 18.5 H RBC 2.80 L Hgb 7.8 L Hct 22.7 L D MCH MCHC 35 H RDW 15.3 H Lymph % (Auto) Lymph # (Auto) Eos # (Auto) Seg Neutrophils % Seg Neuts % (Manual) Lymphocytes % (Manual) Seg Neutrophils # Seg Neutrophils # Man Lymphocytes # (Manual) D-Dimer ABG pH POC ABG pO2 ABG pO2 ABG HCO3 ABG Hemoglobin ABG Oxyhemoglobin ABG Sodium ABG Potassium ABG Glucose Oxyhemoglobin Carboxyhemoglobin Sodium Potassium Chloride Carbon Dioxide BUN Creatinine Glucose POC Glucose 167 H 180 H Lactic Acid Calcium Phosphorus Magnesium AST ALT Troponin T C-Reactive Protein Total Protein Albumin Arterial Blood Glucose Arterial Blood Ionized Calcium Urine WBC (Auto) Urine Creatinine Valproic Acid 09/03/20 09/03/20 09/03/20 08:31 12:02 17:05 WBC RBC Hgb Hct MCH MCHC RDW Lymph % (Auto) Lymph # (Auto) Eos # (Auto) Seg Neutrophils % Seg Neuts % (Manual) Lymphocytes % (Manual) Seg Neutrophils # Seg Neutrophils # Man Lymphocytes # (Manual) D-Dimer ABG pH POC ABG pO2 ABG pO2 ABG HCO3 ABG Hemoglobin ABG Oxyhemoglobin ABG Sodium ABG Potassium ABG Glucose Oxyhemoglobin Carboxyhemoglobin Sodium 134 L Potassium Chloride 96.6 L Carbon Dioxide BUN 96 H Creatinine 3.7 H Glucose 190 H POC Glucose 156 H 150 H Lactic Acid Calcium 8.1 L Phosphorus Magnesium AST ALT Troponin T C-Reactive Protein Total Protein Albumin Arterial Blood Glucose Arterial Blood Ionized Calcium Urine WBC (Auto) Urine Creatinine Valproic Acid 07/06/2109/04/20 09/04/20 23:31 05:23 09:49 WBC RBC Hgb Hct MCH MCHC RDW Lymph % (Auto) Lymph # (Auto) Eos # (Auto) Seg Neutrophils % Seg Neuts % (Manual) Lymphocytes % (Manual) Seg Neutrophils # Seg Neutrophils # Man Lymphocytes # (Manual) D-Dimer ABG pH POC ABG pO2 ABG pO2 ABG HCO3 ABG Hemoglobin ABG Oxyhemoglobin ABG Sodium ABG Potassium ABG Glucose Oxyhemoglobin Carboxyhemoglobin Sodium Potassium Chloride 97.9 L Carbon Dioxide BUN 98 H Creatinine 4.0 H Glucose 171 H POC Glucose 143 H 165 H Lactic Acid Calcium Phosphorus Magnesium AST ALT Troponin T C-Reactive Protein Total Protein Albumin Arterial Blood Glucose Arterial Blood Ionized Calcium Urine WBC (Auto) Urine Creatinine Valproic Acid 09/04/20 09/04/20 09/04/20 12:05 17:46 21:25 WBC RBC Hgb Hct MCH MCHC RDW Lymph % (Auto) Lymph # (Auto) Eos # (Auto) Seg Neutrophils % Seg Neuts % (Manual) Lymphocytes % (Manual) Seg Neutrophils # Seg Neutrophils # Man Lymphocytes # (Manual) D-Dimer ABG pH POC ABG pO2 ABG pO2 ABG HCO3 ABG Hemoglobin ABG Oxyhemoglobin ABG Sodium ABG Potassium ABG Glucose Oxyhemoglobin Carboxyhemoglobin Sodium Potassium Chloride Carbon Dioxide BUN Creatinine Glucose POC Glucose 200 H 184 H 177 H Lactic Acid Calcium Phosphorus Magnesium AST ALT Troponin T C-Reactive Protein Total Protein Albumin Arterial Blood Glucose Arterial Blood Ionized Calcium Urine WBC (Auto) Urine Creatinine Valproic Acid 09/05/20 09/05/20 09/05/20 00:06 04:34 08:40 WBC RBC Hgb Hct MCH MCHC RDW Lymph % (Auto) Lymph # (Auto) Eos # (Auto) Seg Neutrophils % Seg Neuts % (Manual) Lymphocytes % (Manual) Seg Neutrophils # Seg Neutrophils # Man Lymphocytes # (Manual) D-Dimer ABG pH POC ABG pO2 ABG pO2 ABG HCO3 ABG Hemoglobin ABG Oxyhemoglobin ABG Sodium ABG Potassium ABG Glucose Oxyhemoglobin Carboxyhemoglobin Sodium 133 L Potassium Chloride 92.5 L Carbon Dioxide BUN 99 H Creatinine 3.6 H Glucose 167 H POC Glucose 198 H 189 H Lactic Acid Calcium Phosphorus Magnesium AST ALT Troponin T C-Reactive Protein Total Protein Albumin Arterial Blood Glucose Arterial Blood Ionized Calcium Urine WBC (Auto) Urine Creatinine Valproic Acid 09/05/20 09/05/20 09/05/20 11:28 17:54 23:28 WBC RBC Hgb Hct MCH MCHC RDW Lymph % (Auto) Lymph # (Auto) Eos # (Auto) Seg Neutrophils % Seg Neuts % (Manual) Lymphocytes % (Manual) Seg Neutrophils # Seg Neutrophils # Man Lymphocytes # (Manual) D-Dimer ABG pH POC ABG pO2 ABG pO2 ABG HCO3 ABG Hemoglobin ABG Oxyhemoglobin ABG Sodium ABG Potassium ABG Glucose Oxyhemoglobin Carboxyhemoglobin Sodium Potassium Chloride Carbon Dioxide BUN Creatinine Glucose POC Glucose 171 H 169 H 163 H Lactic Acid Calcium Phosphorus Magnesium AST ALT Troponin T C-Reactive Protein Total Protein Albumin Arterial Blood Glucose Arterial Blood Ionized Calcium Urine WBC (Auto) Urine Creatinine Valproic Acid 09/06/20 09/06/20 09/06/20 05:17 11:55 18:07 WBC RBC Hgb Hct MCH MCHC RDW Lymph % (Auto) Lymph # (Auto) Eos # (Auto) Seg Neutrophils % Seg Neuts % (Manual) Lymphocytes % (Manual) Seg Neutrophils # Seg Neutrophils # Man Lymphocytes # (Manual) D-Dimer ABG pH POC ABG pO2 ABG pO2 ABG HCO3 ABG Hemoglobin ABG Oxyhemoglobin ABG Sodium ABG Potassium ABG Glucose Oxyhemoglobin Carboxyhemoglobin Sodium Potassium Chloride Carbon Dioxide BUN Creatinine Glucose POC Glucose 151 H 175 H 182 H Lactic Acid Calcium Phosphorus Magnesium AST ALT Troponin T C-Reactive Protein Total Protein Albumin Arterial Blood Glucose Arterial Blood Ionized Calcium Urine WBC (Auto) Urine Creatinine Valproic Acid 09/06/20 09/06/20 09/06/20 23:19 Unknown Unknown WBC 17.3 H RBC 3.25 L Hgb 8.7 L Hct 26.2 L MCH 27 L MCHC RDW 15.6 H Lymph % (Auto) 4.4 L Lymph # (Auto) 0.8 L Eos # (Auto) Seg Neutrophils % 89.5 H Seg Neuts % (Manual) Lymphocytes % (Manual) Seg Neutrophils # 15.5 H Seg Neutrophils # Man Lymphocytes # (Manual) D-Dimer ABG pH POC ABG pO2 ABG pO2 ABG HCO3 ABG Hemoglobin ABG Oxyhemoglobin ABG Sodium ABG Potassium ABG Glucose Oxyhemoglobin Carboxyhemoglobin Sodium 132 L Potassium Chloride 91.9 L Carbon Dioxide BUN 104 H Creatinine 3.8 H Glucose 177 H POC Glucose 160 H Lactic Acid Calcium Phosphorus Magnesium 2.60 H AST ALT Troponin T C-Reactive Protein Total Protein Albumin Arterial Blood Glucose Arterial Blood Ionized Calcium Urine WBC (Auto) Urine Creatinine Valproic Acid 09/07/20 09/07/20 09/07/20 04:00 05:36 12:09 WBC RBC Hgb Hct MCH MCHC RDW Lymph % (Auto) Lymph # (Auto) Eos # (Auto) Seg Neutrophils % Seg Neuts % (Manual) Lymphocytes % (Manual) Seg Neutrophils # Seg Neutrophils # Man Lymphocytes # (Manual) D-Dimer ABG pH POC ABG pO2 ABG pO2 ABG HCO3 ABG Hemoglobin ABG Oxyhemoglobin ABG Sodium ABG Potassium ABG Glucose Oxyhemoglobin Carboxyhemoglobin Sodium Potassium Chloride 95.6 L Carbon Dioxide BUN 108 H Creatinine 3.9 H Glucose 129 H POC Glucose 151 H 172 H Lactic Acid Calcium Phosphorus Magnesium AST ALT Troponin T C-Reactive Protein Total Protein Albumin Arterial Blood Glucose Arterial Blood Ionized Calcium Urine WBC (Auto) Urine Creatinine Valproic Acid 09/07/20 09/07/20 09/07/20 15:28 18:00 21:21 WBC RBC Hgb Hct MCH MCHC RDW Lymph % (Auto) Lymph # (Auto) Eos # (Auto) Seg Neutrophils % Seg Neuts % (Manual) Lymphocytes % (Manual) Seg Neutrophils # Seg Neutrophils # Man Lymphocytes # (Manual) D-Dimer ABG pH POC ABG pO2 ABG pO2 ABG HCO3 ABG Hemoglobin ABG Oxyhemoglobin ABG Sodium ABG Potassium ABG Glucose Oxyhemoglobin Carboxyhemoglobin Sodium Potassium Chloride Carbon Dioxide BUN Creatinine Glucose POC Glucose 153 H 112 H Lactic Acid Calcium Phosphorus Magnesium AST ALT Troponin T C-Reactive Protein Total Protein Albumin Arterial Blood Glucose Arterial Blood Ionized Calcium Urine WBC (Auto) Urine Creatinine Valproic Acid 42.9 L 09/07/20 09/07/20 09/08/20 23:09 Unknown 05:08 WBC 13.6 H RBC 3.14 L Hgb 8.1 L Hct 25.2 L MCH 26 L MCHC RDW 15.5 H Lymph % (Auto) 6.0 L Lymph # (Auto) 0.8 L Eos # (Auto) 0.5 H Seg Neutrophils % 85.5 H Seg Neuts % (Manual) Lymphocytes % (Manual) Seg Neutrophils # 11.6 H Seg Neutrophils # Man Lymphocytes # (Manual) D-Dimer ABG pH POC ABG pO2 ABG pO2 ABG HCO3 ABG Hemoglobin ABG Oxyhemoglobin ABG Sodium ABG Potassium ABG Glucose Oxyhemoglobin Carboxyhemoglobin Sodium Potassium Chloride Carbon Dioxide BUN Creatinine Glucose POC Glucose 149 H 125 H Lactic Acid Calcium Phosphorus Magnesium AST ALT Troponin T C-Reactive Protein Total Protein Albumin Arterial Blood Glucose Arterial Blood Ionized Calcium Urine WBC (Auto) Urine Creatinine Valproic Acid 09/08/20 09/08/20 09/09/20 06:00 23:25 04:55 WBC RBC Hgb Hct MCH MCHC RDW Lymph % (Auto) Lymph # (Auto) Eos # (Auto) Seg Neutrophils % Seg Neuts % (Manual) Lymphocytes % (Manual) Seg Neutrophils # Seg Neutrophils # Man Lymphocytes # (Manual) D-Dimer ABG pH POC ABG pO2 ABG pO2 ABG HCO3 ABG Hemoglobin ABG Oxyhemoglobin ABG Sodium ABG Potassium ABG Glucose Oxyhemoglobin Carboxyhemoglobin Sodium 135 L Potassium Chloride 94.0 L 97.8 L Carbon Dioxide BUN 110 H 113 H Creatinine 3.7 H 3.7 H Glucose 127 H 156 H POC Glucose 135 H Lactic Acid Calcium 7.8 L Phosphorus Magnesium AST ALT Troponin T C-Reactive Protein Total Protein Albumin Arterial Blood Glucose Arterial Blood Ionized Calcium Urine WBC (Auto) Urine Creatinine Valproic Acid 09/09/20 05:10 WBC RBC Hgb Hct MCH MCHC RDW Lymph % (Auto) Lymph # (Auto) Eos # (Auto) Seg Neutrophils % Seg Neuts % (Manual) Lymphocytes % (Manual) Seg Neutrophils # Seg Neutrophils # Man Lymphocytes # (Manual) D-Dimer ABG pH POC ABG pO2 ABG pO2 ABG HCO3 ABG Hemoglobin ABG Oxyhemoglobin ABG Sodium ABG Potassium ABG Glucose Oxyhemoglobin Carboxyhemoglobin Sodium Potassium Chloride Carbon Dioxide BUN Creatinine Glucose POC Glucose 177 H Lactic Acid Calcium Phosphorus Magnesium AST ALT Troponin T C-Reactive Protein Total Protein Albumin Arterial Blood Glucose Arterial Blood Ionized Calcium Urine WBC (Auto) Urine Creatinine Valproic Acid
--- NOTE | 2020-09-09 11:29 | Progress Note ---
Assessment and Plan Acute hypoxemic respiratory failure Cardiac arrest with ROSC Acute encephalopathy Multifocal pneumonia Possible bilateral pulmonary edema Congestive heart failure with an acute exacerbation Anemia Hyperkalemia Lactic acidosis Acute kidney injury Elevated serum transaminases Non-ST elevation MA Oropharyngeal dysphagia -continue with AEDs, monitor for seizures while off Midazolam -Off Dopamine, blood pressures are soft. Monitor closely -Monitor tongue swelling, treat empirically for angioedema -Low Depakote levels- await Neurology re dose adjustment -Continue to monitor off antibiotics for now. Trend temperature curve and WCC -Plan for trach and PEG placement per family wishes - continue to titrate supplemental oxygen for target sPO2 89-92% - VAP bundle addressed - continue lung protective strategies - continue bronchodilators with pulmonary hygiene per RT - continue Daily SAT and SBT assessment as tolerated - continue accuchecks with glycemic control per SSI (while critically ill target blood glucose of 140-180 mg/dL; avoid hypoglycemia) - avoid nephrotoxins, renally dose all medications - continue to avoid benzodiazepines, reduce the possibility of delirium - enteric nutritional support at goal rate as tolerated -Stress ulcer and VTE prophylaxis - PT/OT/ROM exercises - continue mobility, off loading and frequent turning per facility protocol for pressure ulcer prevention - continue to monitor hemodynamics closely - continue other care per attending / other consultants COVID SPECIFIC INTERVENTIONS - COVID-19 PCR negative CONDITION: CRITICAL PROGNOSIS: GUARDED CODE STATUS: FULL CODE The high probability of a clinically significant, sudden or life-threatening deterioration of the [respiratory, cardiovascular & neurologic] system(s) required my full and direct attention, intervention and personal management. The aggregate critical care time was [33] minutes without overlap. Time includes spent on; [x] Data Review and interpretation [x] Patient assessment and monitoring of vital signs [x] Documentation [x] Medication orders and management Subjective Date of service: 09/09/20 Principal diagnosis: Ac. hypoxemic resp failure; Cardiac arrest; AMS; AE-CHF; Hyperkalemia; FLORIDALMA Interval history: Patient is seen today for: Acute hypoxemic respiratory failure; Cardiac arrest with ROSC; Acute encephalopathy; Multifocal pneumonia; pulmonary edema; AE-CHF; Hyperkalemia; FLORIDALMA; NSTEMI Seen and examined at bedside; 24hour events reviewed; nursing and respiratory care staff consulted; no adverse overnight events reported to me; resting in b ed; remains on MVS; AMS is persistent; afebrile; no emesis or overt aspiration and no seizures Tolerating PSV trials, awaiting trach and PEG placement Off Dopamine , she has a Christina catheter in for urinary retention No further episodes of seizure like activity( orofacial twitching)-remains on Depakote, Vimpat and Keppra Off Midazolam Objective Vital Signs - 12hr 09/08/20 09/09/20 09/09/20 23:33 00:00 01:00 Temperature 98.9 F Pulse Rate 68 74 Pulse Rate [ 70 From Monitor] Respiratory 19 19 Rate Blood Pressure 122/46 119/51 O2 Sat by Pulse 97 96 Oximetry 09/09/20 09/09/20 09/09/20 02:00 03:00 03:22 Temperature 98.6 F Pulse Rate 70 66 Pulse Rate [ From Monitor] Respiratory 21 15 Rate Blood Pressure 106/43 88/35 O2 Sat by Pulse 97 Oximetry 09/09/20 09/09/20 09/09/20 03:56 04:00 05:00 Temperature Pulse Rate 68 69 69 Pulse Rate [ 70 From Monitor] Respiratory 22 19 Rate Blood Pressure 113/39 122/51 122/51 O2 Sat by Pulse 99 98 Oximetry 09/09/20 09/09/20 09/09/20 06:01 07:01 07:28 Temperature Pulse Rate 74 71 71 Pulse Rate [ From Monitor] Respiratory 25 H 21 Rate Blood Pressure 102/37 133/45 136/49 O2 Sat by Pulse 96 98 97 Oximetry 09/09/20 09/09/20 09/09/20 07:40 07:47 08:00 Temperature 98.6 F Pulse Rate 74 Pulse Rate [ 74 From Monitor] Respiratory 26 H Rate Blood Pressure 93/42 O2 Sat by Pulse 99 98 Oximetry 09/09/20 09/09/20 09/09/20 08:01 09:01 10:01 Temperature Pulse Rate 70 69 74 Pulse Rate [ From Monitor] Respiratory 31 H 27 H 27 H Rate Blood Pressure 110/37 100/34 141/49 O2 Sat by Pulse 95 99 98 Oximetry 09/09/20 11:01 Temperature Pulse Rate 71 Pulse Rate [ From Monitor] Respiratory 27 H Rate Blood Pressure 118/38 O2 Sat by Pulse 95 Oximetry Constitutional: no acute distress, other (elderly obese female with no patient ventilator dyssynchrony) Eyes: non-icteric ENT: oropharynx moist, oropharyngeal exudate pre (clear, frothy), other (ETT 24 cm DIMAS, large tongue- apparently had seizure like activity) Neck: supple, no lymphadenopathy, no JVD Effort: mildly labored Ascultation: Bilateral: diminished breath sounds (bases), rhonchi (scant) Percussion: Bilateral: not dull Cardiovascular: regular rate and rhythm, other (S1,S2) Gastrointestinal: normoactive bowel sounds Integumentary: normal Extremities: no cyanosis, no edema, pulses normal, no ischemia or petechiae Neurologic: pupils equal and round, unable to assess, other (facial and whole body seizures + bitting tongue) Psychiatric: other (unable to assess re: AMS) CBC and BMP: 09/10/20 06:50 09/10/20 06:50 ABG, PT/INR, D-dimer: ABG ABG pH 7.462 (7.320-7.450) H 09/01/20 12:51 POC ABG pCO2 39.5 mmHg (32.0-48.0) 09/01/20 12:51 ABG pCO2 36.6 mm Hg 08/31/20 04:10 POC ABG pO2 102.7 mmHg (83-108) 09/01/20 12:51 ABG pO2 99.6 mm Hg (80.0-90.0) H 08/31/20 04:10 POC ABG HCO3 27.6 09/01/20 12:51 ABG O2 Saturation 98.0 (0-100) 09/01/20 12:51 PT/INR, D-dimer D-Dimer > 85674 ng/mlDDU (0-234) H 08/25/20 11:23 Abnormal lab findings: Abnormal Labs 08/25/20 08/25/20 08/25/20 11:14 11:17 11:23 WBC 11.5 H RBC 3.22 L Hgb 8.6 L Hct 27.6 L MCH 27 L MCHC RDW 15.6 H Lymph % (Auto) Lymph # (Auto) Eos # (Auto) Seg Neutrophils % Seg Neuts % (Manual) 89.0 H Lymphocytes % (Manual) 5.0 L Seg Neutrophils # Seg Neutrophils # Man 10.2 H Lymphocytes # (Manual) 0.6 L D-Dimer ABG pH 7.290 L POC ABG pO2 161.1 H ABG pO2 ABG HCO3 ABG Hemoglobin 8.9 L ABG Oxyhemoglobin 98.6 H ABG Sodium 135.2 L ABG Potassium 5.9 H ABG Glucose 210 H Oxyhemoglobin Carboxyhemoglobin 0.4 L Sodium Potassium Chloride Carbon Dioxide BUN Creatinine Glucose POC Glucose Lactic Acid Calcium Phosphorus Magnesium AST ALT Troponin T C-Reactive Protein Total Protein Albumin Arterial Blood Glucose 210 H Arterial Blood Ionized Calcium 4.4 L Urine WBC (Auto) 31.0 H Urine Creatinine Valproic Acid 08/25/20 08/25/20 08/25/20 11:23 11:23 11:23 WBC RBC Hgb Hct MCH MCHC RDW Lymph % (Auto) Lymph # (Auto) Eos # (Auto) Seg Neutrophils % Seg Neuts % (Manual) Lymphocytes % (Manual) Seg Neutrophils # Seg Neutrophils # Man Lymphocytes # (Manual) D-Dimer > 34509 H ABG pH POC ABG pO2 ABG pO2 ABG HCO3 ABG Hemoglobin ABG Oxyhemoglobin ABG Sodium ABG Potassium ABG Glucose Oxyhemoglobin Carboxyhemoglobin Sodium Potassium 6.4 H* Chloride Carbon Dioxide 21 L BUN 52 H Creatinine 3.5 H Glucose 194 H POC Glucose Lactic Acid 3.30 H* Calcium 8.1 L Phosphorus Magnesium AST 103 H ALT 77 H Troponin T 0.057 H C-Reactive Protein Total Protein 5.8 L Albumin 3.4 L Arterial Blood Glucose Arterial Blood Ionized Calcium Urine WBC (Auto) Urine Creatinine Valproic Acid 08/25/20 08/25/20 08/25/20 13:51 15:45 20:34 WBC RBC Hgb Hct MCH MCHC RDW Lymph % (Auto) Lymph # (Auto) Eos # (Auto) Seg Neutrophils % Seg Neuts % (Manual) Lymphocytes % (Manual) Seg Neutrophils # Seg Neutrophils # Man Lymphocytes # (Manual) D-Dimer ABG pH POC ABG pO2 66.3 L ABG pO2 ABG HCO3 ABG Hemoglobin 9.1 L ABG Oxyhemoglobin 92.5 L ABG Sodium ABG Potassium ABG Glucose 225 H Oxyhemoglobin Carboxyhemoglobin Sodium Potassium Chloride Carbon Dioxide BUN Creatinine Glucose POC Glucose 188 H 233 H Lactic Acid Calcium Phosphorus Magnesium AST ALT Troponin T C-Reactive Protein Total Protein Albumin Arterial Blood Glucose 225 H Arterial Blood Ionized Calcium 4.4 L Urine WBC (Auto) Urine Creatinine Valproic Acid 08/26/20 08/26/20 08/26/20 04:14 05:04 05:04 WBC 17.9 H RBC 3.05 L Hgb 8.3 L Hct 25.6 L MCH 27 L MCHC RDW 15.3 H Lymph % (Auto) Lymph # (Auto) Eos # (Auto) Seg Neutrophils % Seg Neuts % (Manual) 96.0 H Lymphocytes % (Manual) 1.0 L Seg Neutrophils # Seg Neutrophils # Man 17.2 H Lymphocytes # (Manual) 0.2 L D-Dimer ABG pH POC ABG pO2 131.3 H ABG pO2 ABG HCO3 ABG Hemoglobin 8.6 L ABG Oxyhemoglobin 98.2 H ABG Sodium ABG Potassium ABG Glucose 182 H Oxyhemoglobin Carboxyhemoglobin 0.2 L Sodium Potassium Chloride Carbon Dioxide BUN 56 H Creatinine 3.4 H Glucose 187 H POC Glucose Lactic Acid Calcium 8.3 L Phosphorus Magnesium AST 54 H ALT 57 H Troponin T C-Reactive Protein Total Protein 5.4 L Albumin 2.9 L Arterial Blood Glucose 182 H Arterial Blood Ionized Calcium 4.3 L Urine WBC (Auto) Urine Creatinine Valproic Acid 08/26/20 08/26/20 08/26/20 05:40 07:36 11:54 WBC RBC Hgb Hct MCH MCHC RDW Lymph % (Auto) Lymph # (Auto) Eos # (Auto) Seg Neutrophils % Seg Neuts % (Manual) Lymphocytes % (Manual) Seg Neutrophils # Seg Neutrophils # Man Lymphocytes # (Manual) D-Dimer ABG pH POC ABG pO2 ABG pO2 ABG HCO3 ABG Hemoglobin ABG Oxyhemoglobin ABG Sodium ABG Potassium ABG Glucose Oxyhemoglobin Carboxyhemoglobin Sodium Potassium Chloride Carbon Dioxide BUN Creatinine Glucose POC Glucose 179 H 171 H 190 H Lactic Acid Calcium Phosphorus Magnesium AST ALT Troponin T C-Reactive Protein Total Protein Albumin Arterial Blood Glucose Arterial Blood Ionized Calcium Urine WBC (Auto) Urine Creatinine Valproic Acid 08/26/20 08/26/20 08/26/20 15:14 17:00 18:50 WBC RBC Hgb Hct MCH MCHC RDW Lymph % (Auto) Lymph # (Auto) Eos # (Auto) Seg Neutrophils % Seg Neuts % (Manual) Lymphocytes % (Manual) Seg Neutrophils # Seg Neutrophils # Man Lymphocytes # (Manual) D-Dimer ABG pH POC ABG pO2 ABG pO2 ABG HCO3 ABG Hemoglobin ABG Oxyhemoglobin ABG Sodium ABG Potassium ABG Glucose Oxyhemoglobin Carboxyhemoglobin Sodium Potassium Chloride Carbon Dioxide BUN Creatinine Glucose POC Glucose 158 H Lactic Acid Calcium Phosphorus Magnesium AST ALT Troponin T C-Reactive Protein 7.80 H Total Protein Albumin Arterial Blood Glucose Arterial Blood Ionized Calcium Urine WBC (Auto) Urine Creatinine 67.4 H Valproic Acid 08/26/20 08/27/20 08/27/20 22:01 04:10 05:12 WBC RBC Hgb Hct MCH MCHC RDW Lymph % (Auto) Lymph # (Auto) Eos # (Auto) Seg Neutrophils % Seg Neuts % (Manual) Lymphocytes % (Manual) Seg Neutrophils # Seg Neutrophils # Man Lymphocytes # (Manual) D-Dimer ABG pH 7.454 H POC ABG pO2 74.9 L ABG pO2 ABG HCO3 ABG Hemoglobin 7.9 L ABG Oxyhemoglobin ABG Sodium ABG Potassium ABG Glucose 117 H Oxyhemoglobin Carboxyhemoglobin Sodium Potassium Chloride Carbon Dioxide BUN Creatinine Glucose POC Glucose 122 H 117 H Lactic Acid Calcium Phosphorus Magnesium AST ALT Troponin T C-Reactive Protein Total Protein Albumin Arterial Blood Glucose 117 H Arterial Blood Ionized Calcium 4.4 L Urine WBC (Auto) Urine Creatinine Valproic Acid 08/27/20 08/27/20 08/27/20 07:24 07:24 11:08 WBC 12.7 H RBC 2.92 L Hgb 8.1 L Hct 24.4 L MCH MCHC RDW 15.4 H Lymph % (Auto) 5.9 L Lymph # (Auto) 0.8 L Eos # (Auto) Seg Neutrophils % 86.9 H Seg Neuts % (Manual) Lymphocytes % (Manual) Seg Neutrophils # 11.0 H Seg Neutrophils # Man Lymphocytes # (Manual) D-Dimer ABG pH POC ABG pO2 ABG pO2 ABG HCO3 ABG Hemoglobin ABG Oxyhemoglobin ABG Sodium ABG Potassium ABG Glucose Oxyhemoglobin Carboxyhemoglobin Sodium Potassium Chloride Carbon Dioxide BUN 60 H Creatinine 3.6 H Glucose 135 H POC Glucose 139 H Lactic Acid Calcium Phosphorus Magnesium AST ALT Troponin T C-Reactive Protein Total Protein 5.3 L Albumin 2.6 L Arterial Blood Glucose Arterial Blood Ionized Calcium Urine WBC (Auto) Urine Creatinine Valproic Acid 08/27/20 08/27/20 08/27/20 11:19 17:31 23:25 WBC RBC Hgb Hct MCH MCHC RDW Lymph % (Auto) Lymph # (Auto) Eos # (Auto) Seg Neutrophils % Seg Neuts % (Manual) Lymphocytes % (Manual) Seg Neutrophils # Seg Neutrophils # Man Lymphocytes # (Manual) D-Dimer ABG pH POC ABG pO2 ABG pO2 ABG HCO3 ABG Hemoglobin ABG Oxyhemoglobin ABG Sodium ABG Potassium ABG Glucose Oxyhemoglobin Carboxyhemoglobin Sodium Potassium Chloride Carbon Dioxide BUN Creatinine Glucose POC Glucose 143 H 140 H 123 H Lactic Acid Calcium Phosphorus Magnesium AST ALT Troponin T C-Reactive Protein Total Protein Albumin Arterial Blood Glucose Arterial Blood Ionized Calcium Urine WBC (Auto) Urine Creatinine Valproic Acid 08/28/20 08/28/20 08/28/20 03:50 04:19 04:19 WBC RBC 2.80 L Hgb 7.8 L Hct 23.6 L MCH MCHC RDW 15.8 H Lymph % (Auto) Lymph # (Auto) Eos # (Auto) Seg Neutrophils % Seg Neuts % (Manual) Lymphocytes % (Manual) Seg Neutrophils # Seg Neutrophils # Man Lymphocytes # (Manual) D-Dimer ABG pH 7.329 L POC ABG pO2 ABG pO2 76.7 L ABG HCO3 27.0 H ABG Hemoglobin 7.5 L ABG Oxyhemoglobin ABG Sodium ABG Potassium ABG Glucose Oxyhemoglobin 93.6 L Carboxyhemoglobin Sodium 135 L Potassium Chloride Carbon Dioxide BUN 64 H Creatinine 3.8 H Glucose 143 H POC Glucose Lactic Acid Calcium 8.0 L Phosphorus Magnesium AST ALT Troponin T C-Reactive Protein Total Protein 4.8 L Albumin 2.4 L Arterial Blood Glucose Arterial Blood Ionized Calcium Urine WBC (Auto) Urine Creatinine Valproic Acid 08/28/20 08/28/20 08/28/20 05:35 11:22 17:18 WBC RBC Hgb Hct MCH MCHC RDW Lymph % (Auto) Lymph # (Auto) Eos # (Auto) Seg Neutrophils % Seg Neuts % (Manual) Lymphocytes % (Manual) Seg Neutrophils # Seg Neutrophils # Man Lymphocytes # (Manual) D-Dimer ABG pH POC ABG pO2 ABG pO2 ABG HCO3 ABG Hemoglobin ABG Oxyhemoglobin ABG Sodium ABG Potassium ABG Glucose Oxyhemoglobin Carboxyhemoglobin Sodium Potassium Chloride Carbon Dioxide BUN Creatinine Glucose POC Glucose 147 H 182 H 216 H Lactic Acid Calcium Phosphorus Magnesium AST ALT Troponin T C-Reactive Protein Total Protein Albumin Arterial Blood Glucose Arterial Blood Ionized Calcium Urine WBC (Auto) Urine Creatinine Valproic Acid 08/28/20 08/28/20 08/29/20 21:04 23:20 04:32 WBC RBC Hgb Hct MCH MCHC RDW Lymph % (Auto) Lymph # (Auto) Eos # (Auto) Seg Neutrophils % Seg Neuts % (Manual) Lymphocytes % (Manual) Seg Neutrophils # Seg Neutrophils # Man Lymphocytes # (Manual) D-Dimer ABG pH POC ABG pO2 ABG pO2 ABG HCO3 ABG Hemoglobin ABG Oxyhemoglobin ABG Sodium ABG Potassium ABG Glucose Oxyhemoglobin Carboxyhemoglobin Sodium 135 L Potassium Chloride 96.0 L Carbon Dioxide BUN 67 H Creatinine 3.8 H Glucose 200 H POC Glucose 204 H 242 H Lactic Acid Calcium 8.2 L Phosphorus Magnesium AST ALT Troponin T C-Reactive Protein Total Protein Albumin Arterial Blood Glucose Arterial Blood Ionized Calcium Urine WBC (Auto) Urine Creatinine Valproic Acid 08/29/20 08/29/20 08/29/20 04:32 04:50 04:59 WBC RBC 3.25 L Hgb 9.0 L Hct 27.0 L MCH MCHC RDW 16.1 H Lymph % (Auto) Lymph # (Auto) Eos # (Auto) Seg Neutrophils % Seg Neuts % (Manual) Lymphocytes % (Manual) Seg Neutrophils # Seg Neutrophils # Man Lymphocytes # (Manual) D-Dimer ABG pH POC ABG pO2 ABG pO2 ABG HCO3 ABG Hemoglobin 8.8 L ABG Oxyhemoglobin ABG Sodium ABG Potassium ABG Glucose Oxyhemoglobin Carboxyhemoglobin Sodium Potassium Chloride Carbon Dioxide BUN Creatinine Glucose POC Glucose 201 H Lactic Acid Calcium Phosphorus Magnesium AST ALT Troponin T C-Reactive Protein Total Protein Albumin Arterial Blood Glucose Arterial Blood Ionized Calcium Urine WBC (Auto) Urine Creatinine Valproic Acid 08/29/20 08/29/20 08/29/20 11:10 11:28 17:50 WBC RBC Hgb Hct MCH MCHC RDW Lymph % (Auto) Lymph # (Auto) Eos # (Auto) Seg Neutrophils % Seg Neuts % (Manual) Lymphocytes % (Manual) Seg Neutrophils # Seg Neutrophils # Man Lymphocytes # (Manual) D-Dimer ABG pH POC ABG pO2 ABG pO2 78.7 L ABG HCO3 26.6 H ABG Hemoglobin 9.8 L ABG Oxyhemoglobin ABG Sodium ABG Potassium ABG Glucose Oxyhemoglobin 94.3 L Carboxyhemoglobin Sodium Potassium Chloride Carbon Dioxide BUN Creatinine Glucose POC Glucose 219 H 203 H Lactic Acid Calcium Phosphorus Magnesium AST ALT Troponin T C-Reactive Protein Total Protein Albumin Arterial Blood Glucose Arterial Blood Ionized Calcium Urine WBC (Auto) Urine Creatinine Valproic Acid 08/29/20 08/29/20 08/30/20 21:31 23:28 04:14 WBC RBC Hgb Hct MCH MCHC RDW Lymph % (Auto) Lymph # (Auto) Eos # (Auto) Seg Neutrophils % Seg Neuts % (Manual) Lymphocytes % (Manual) Seg Neutrophils # Seg Neutrophils # Man Lymphocytes # (Manual) D-Dimer ABG pH POC ABG pO2 ABG pO2 ABG HCO3 ABG Hemoglobin ABG Oxyhemoglobin ABG Sodium ABG Potassium ABG Glucose Oxyhemoglobin Carboxyhemoglobin Sodium 132 L Potassium Chloride 94.8 L Carbon Dioxide BUN 68 H Creatinine 3.7 H Glucose 214 H POC Glucose 204 H 215 H Lactic Acid Calcium Phosphorus Magnesium AST ALT Troponin T C-Reactive Protein Total Protein Albumin Arterial Blood Glucose Arterial Blood Ionized Calcium Urine WBC (Auto) Urine Creatinine Valproic Acid 08/30/20 08/30/20 08/30/20 05:10 11:33 17:32 WBC RBC Hgb Hct MCH MCHC RDW Lymph % (Auto) Lymph # (Auto) Eos # (Auto) Seg Neutrophils % Seg Neuts % (Manual) Lymphocytes % (Manual) Seg Neutrophils # Seg Neutrophils # Man Lymphocytes # (Manual) D-Dimer ABG pH POC ABG pO2 ABG pO2 ABG HCO3 ABG Hemoglobin ABG Oxyhemoglobin ABG Sodium ABG Potassium ABG Glucose Oxyhemoglobin Carboxyhemoglobin Sodium Potassium Chloride Carbon Dioxide BUN Creatinine Glucose POC Glucose 210 H 194 H 202 H Lactic Acid Calcium Phosphorus Magnesium AST ALT Troponin T C-Reactive Protein Total Protein Albumin Arterial Blood Glucose Arterial Blood Ionized Calcium Urine WBC (Auto) Urine Creatinine Valproic Acid 08/30/20 08/30/20 08/30/20 21:39 23:21 Unknown WBC RBC Hgb Hct MCH MCHC RDW Lymph % (Auto) Lymph # (Auto) Eos # (Auto) Seg Neutrophils % Seg Neuts % (Manual) Lymphocytes % (Manual) Seg Neutrophils # Seg Neutrophils # Man Lymphocytes # (Manual) D-Dimer ABG pH POC ABG pO2 ABG pO2 99.0 H ABG HCO3 ABG Hemoglobin 9.8 L ABG Oxyhemoglobin ABG Sodium ABG Potassium ABG Glucose Oxyhemoglobin Carboxyhemoglobin Sodium Potassium Chloride Carbon Dioxide BUN Creatinine Glucose POC Glucose 199 H 209 H Lactic Acid Calcium Phosphorus Magnesium AST ALT Troponin T C-Reactive Protein Total Protein Albumin Arterial Blood Glucose Arterial Blood Ionized Calcium Urine WBC (Auto) Urine Creatinine Valproic Acid 08/31/20 08/31/20 08/31/20 04:10 05:19 10:57 WBC RBC Hgb Hct MCH MCHC RDW Lymph % (Auto) Lymph # (Auto) Eos # (Auto) Seg Neutrophils % Seg Neuts % (Manual) Lymphocytes % (Manual) Seg Neutrophils # Seg Neutrophils # Man Lymphocytes # (Manual) D-Dimer ABG pH 7.451 H POC ABG pO2 ABG pO2 99.6 H ABG HCO3 ABG Hemoglobin 8.4 L ABG Oxyhemoglobin ABG Sodium ABG Potassium ABG Glucose Oxyhemoglobin Carboxyhemoglobin Sodium 133 L Potassium Chloride 96.4 L Carbon Dioxide BUN 74 H Creatinine 3.8 H Glucose 201 H POC Glucose 182 H Lactic Acid Calcium 7.6 L Phosphorus Magnesium AST ALT Troponin T C-Reactive Protein Total Protein Albumin Arterial Blood Glucose Arterial Blood Ionized Calcium Urine WBC (Auto) Urine Creatinine Valproic Acid 08/31/20 08/31/20 08/31/20 10:57 12:32 17:15 WBC 11.4 H RBC 3.24 L Hgb 8.5 L Hct 26.6 L MCH 26 L MCHC RDW 15.6 H Lymph % (Auto) Lymph # (Auto) Eos # (Auto) Seg Neutrophils % Seg Neuts % (Manual) Lymphocytes % (Manual) Seg Neutrophils # Seg Neutrophils # Man Lymphocytes # (Manual) D-Dimer ABG pH POC ABG pO2 ABG pO2 ABG HCO3 ABG Hemoglobin ABG Oxyhemoglobin ABG Sodium ABG Potassium ABG Glucose Oxyhemoglobin Carboxyhemoglobin Sodium Potassium Chloride Carbon Dioxide BUN Creatinine Glucose POC Glucose 217 H 203 H Lactic Acid Calcium Phosphorus Magnesium AST ALT Troponin T C-Reactive Protein Total Protein Albumin Arterial Blood Glucose Arterial Blood Ionized Calcium Urine WBC (Auto) Urine Creatinine Valproic Acid 09/01/20 09/01/20 09/01/20 00:06 05:05 09:41 WBC RBC Hgb Hct MCH MCHC RDW Lymph % (Auto) Lymph # (Auto) Eos # (Auto) Seg Neutrophils % Seg Neuts % (Manual) Lymphocytes % (Manual) Seg Neutrophils # Seg Neutrophils # Man Lymphocytes # (Manual) D-Dimer ABG pH POC ABG pO2 ABG pO2 ABG HCO3 ABG Hemoglobin ABG Oxyhemoglobin ABG Sodium ABG Potassium ABG Glucose Oxyhemoglobin Carboxyhemoglobin Sodium 134 L Potassium Chloride 95.2 L Carbon Dioxide BUN 81 H Creatinine 3.7 H Glucose 201 H POC Glucose 223 H 225 H Lactic Acid Calcium Phosphorus 4.60 H Magnesium 2.40 H AST ALT Troponin T C-Reactive Protein Total Protein Albumin Arterial Blood Glucose Arterial Blood Ionized Calcium Urine WBC (Auto) Urine Creatinine Valproic Acid 09/01/20 09/01/20 09/01/20 09:41 12:51 13:08 WBC 11.5 H RBC 3.58 L Hgb 9.2 L Hct 29.7 L MCH 26 L MCHC RDW 16.0 H Lymph % (Auto) Lymph # (Auto) Eos # (Auto) Seg Neutrophils % Seg Neuts % (Manual) Lymphocytes % (Manual) Seg Neutrophils # Seg Neutrophils # Man Lymphocytes # (Manual) D-Dimer ABG pH 7.462 H POC ABG pO2 ABG pO2 ABG HCO3 ABG Hemoglobin 9.5 L ABG Oxyhemoglobin ABG Sodium 130.4 L ABG Potassium ABG Glucose 208 H Oxyhemoglobin Carboxyhemoglobin 0.4 L Sodium Potassium Chloride Carbon Dioxide BUN Creatinine Glucose POC Glucose 182 H Lactic Acid Calcium Phosphorus Magnesium AST ALT Troponin T C-Reactive Protein Total Protein Albumin Arterial Blood Glucose 208 H Arterial Blood Ionized Calcium 4.5 L Urine WBC (Auto) Urine Creatinine Valproic Acid 09/01/20 09/01/20 09/02/20 18:34 23:14 05:22 WBC RBC Hgb Hct MCH MCHC RDW Lymph % (Auto) Lymph # (Auto) Eos # (Auto) Seg Neutrophils % Seg Neuts % (Manual) Lymphocytes % (Manual) Seg Neutrophils # Seg Neutrophils # Man Lymphocytes # (Manual) D-Dimer ABG pH POC ABG pO2 ABG pO2 ABG HCO3 ABG Hemoglobin ABG Oxyhemoglobin ABG Sodium ABG Potassium ABG Glucose Oxyhemoglobin Carboxyhemoglobin Sodium Potassium Chloride Carbon Dioxide BUN Creatinine Glucose POC Glucose 183 H 181 H 178 H Lactic Acid Calcium Phosphorus Magnesium AST ALT Troponin T C-Reactive Protein Total Protein Albumin Arterial Blood Glucose Arterial Blood Ionized Calcium Urine WBC (Auto) Urine Creatinine Valproic Acid 09/02/20 09/02/20 09/02/20 07:35 11:16 17:39 WBC RBC Hgb Hct MCH MCHC RDW Lymph % (Auto) Lymph # (Auto) Eos # (Auto) Seg Neutrophils % Seg Neuts % (Manual) Lymphocytes % (Manual) Seg Neutrophils # Seg Neutrophils # Man Lymphocytes # (Manual) D-Dimer ABG pH POC ABG pO2 ABG pO2 ABG HCO3 ABG Hemoglobin ABG Oxyhemoglobin ABG Sodium ABG Potassium ABG Glucose Oxyhemoglobin Carboxyhemoglobin Sodium 135 L Potassium Chloride 96.0 L Carbon Dioxide BUN 88 H Creatinine 3.7 H Glucose 187 H POC Glucose 228 H 165 H Lactic Acid Calcium Phosphorus Magnesium AST ALT Troponin T C-Reactive Protein Total Protein Albumin Arterial Blood Glucose Arterial Blood Ionized Calcium Urine WBC (Auto) Urine Creatinine Valproic Acid 09/02/20 09/03/20 09/03/20 23:24 05:35 08:31 WBC 18.5 H RBC 2.80 L Hgb 7.8 L Hct 22.7 L D MCH MCHC 35 H RDW 15.3 H Lymph % (Auto) Lymph # (Auto) Eos # (Auto) Seg Neutrophils % Seg Neuts % (Manual) Lymphocytes % (Manual) Seg Neutrophils # Seg Neutrophils # Man Lymphocytes # (Manual) D-Dimer ABG pH POC ABG pO2 ABG pO2 ABG HCO3 ABG Hemoglobin ABG Oxyhemoglobin ABG Sodium ABG Potassium ABG Glucose Oxyhemoglobin Carboxyhemoglobin Sodium Potassium Chloride Carbon Dioxide BUN Creatinine Glucose POC Glucose 167 H 180 H Lactic Acid Calcium Phosphorus Magnesium AST ALT Troponin T C-Reactive Protein Total Protein Albumin Arterial Blood Glucose Arterial Blood Ionized Calcium Urine WBC (Auto) Urine Creatinine Valproic Acid 09/03/20 09/03/20 09/03/20 08:31 12:02 17:05 WBC RBC Hgb Hct MCH MCHC RDW Lymph % (Auto) Lymph # (Auto) Eos # (Auto) Seg Neutrophils % Seg Neuts % (Manual) Lymphocytes % (Manual) Seg Neutrophils # Seg Neutrophils # Man Lymphocytes # (Manual) D-Dimer ABG pH POC ABG pO2 ABG pO2 ABG HCO3 ABG Hemoglobin ABG Oxyhemoglobin ABG Sodium ABG Potassium ABG Glucose Oxyhemoglobin Carboxyhemoglobin Sodium 134 L Potassium Chloride 96.6 L Carbon Dioxide BUN 96 H Creatinine 3.7 H Glucose 190 H POC Glucose 156 H 150 H Lactic Acid Calcium 8.1 L Phosphorus Magnesium AST ALT Troponin T C-Reactive Protein Total Protein Albumin Arterial Blood Glucose Arterial Blood Ionized Calcium Urine WBC (Auto) Urine Creatinine Valproic Acid 07/04/21 07/05/21 07/05/21 23:31 05:23 09:49 WBC RBC Hgb Hct MCH MCHC RDW Lymph % (Auto) Lymph # (Auto) Eos # (Auto) Seg Neutrophils % Seg Neuts % (Manual) Lymphocytes % (Manual) Seg Neutrophils # Seg Neutrophils # Man Lymphocytes # (Manual) D-Dimer ABG pH POC ABG pO2 ABG pO2 ABG HCO3 ABG Hemoglobin ABG Oxyhemoglobin ABG Sodium ABG Potassium ABG Glucose Oxyhemoglobin Carboxyhemoglobin Sodium Potassium Chloride 97.9 L Carbon Dioxide BUN 98 H Creatinine 4.0 H Glucose 171 H POC Glucose 143 H 165 H Lactic Acid Calcium Phosphorus Magnesium AST ALT Troponin T C-Reactive Protein Total Protein Albumin Arterial Blood Glucose Arterial Blood Ionized Calcium Urine WBC (Auto) Urine Creatinine Valproic Acid 09/04/20 09/04/20 09/04/20 12:05 17:46 21:25 WBC RBC Hgb Hct MCH MCHC RDW Lymph % (Auto) Lymph # (Auto) Eos # (Auto) Seg Neutrophils % Seg Neuts % (Manual) Lymphocytes % (Manual) Seg Neutrophils # Seg Neutrophils # Man Lymphocytes # (Manual) D-Dimer ABG pH POC ABG pO2 ABG pO2 ABG HCO3 ABG Hemoglobin ABG Oxyhemoglobin ABG Sodium ABG Potassium ABG Glucose Oxyhemoglobin Carboxyhemoglobin Sodium Potassium Chloride Carbon Dioxide BUN Creatinine Glucose POC Glucose 200 H 184 H 177 H Lactic Acid Calcium Phosphorus Magnesium AST ALT Troponin T C-Reactive Protein Total Protein Albumin Arterial Blood Glucose Arterial Blood Ionized Calcium Urine WBC (Auto) Urine Creatinine Valproic Acid 09/05/20 09/05/20 09/05/20 00:06 04:34 08:40 WBC RBC Hgb Hct MCH MCHC RDW Lymph % (Auto) Lymph # (Auto) Eos # (Auto) Seg Neutrophils % Seg Neuts % (Manual) Lymphocytes % (Manual) Seg Neutrophils # Seg Neutrophils # Man Lymphocytes # (Manual) D-Dimer ABG pH POC ABG pO2 ABG pO2 ABG HCO3 ABG Hemoglobin ABG Oxyhemoglobin ABG Sodium ABG Potassium ABG Glucose Oxyhemoglobin Carboxyhemoglobin Sodium 133 L Potassium Chloride 92.5 L Carbon Dioxide BUN 99 H Creatinine 3.6 H Glucose 167 H POC Glucose 198 H 189 H Lactic Acid Calcium Phosphorus Magnesium AST ALT Troponin T C-Reactive Protein Total Protein Albumin Arterial Blood Glucose Arterial Blood Ionized Calcium Urine WBC (Auto) Urine Creatinine Valproic Acid 09/05/20 09/05/20 09/05/20 11:28 17:54 23:28 WBC RBC Hgb Hct MCH MCHC RDW Lymph % (Auto) Lymph # (Auto) Eos # (Auto) Seg Neutrophils % Seg Neuts % (Manual) Lymphocytes % (Manual) Seg Neutrophils # Seg Neutrophils # Man Lymphocytes # (Manual) D-Dimer ABG pH POC ABG pO2 ABG pO2 ABG HCO3 ABG Hemoglobin ABG Oxyhemoglobin ABG Sodium ABG Potassium ABG Glucose Oxyhemoglobin Carboxyhemoglobin Sodium Potassium Chloride Carbon Dioxide BUN Creatinine Glucose POC Glucose 171 H 169 H 163 H Lactic Acid Calcium Phosphorus Magnesium AST ALT Troponin T C-Reactive Protein Total Protein Albumin Arterial Blood Glucose Arterial Blood Ionized Calcium Urine WBC (Auto) Urine Creatinine Valproic Acid 09/06/20 09/06/20 09/06/20 05:17 11:55 18:07 WBC RBC Hgb Hct MCH MCHC RDW Lymph % (Auto) Lymph # (Auto) Eos # (Auto) Seg Neutrophils % Seg Neuts % (Manual) Lymphocytes % (Manual) Seg Neutrophils # Seg Neutrophils # Man Lymphocytes # (Manual) D-Dimer ABG pH POC ABG pO2 ABG pO2 ABG HCO3 ABG Hemoglobin ABG Oxyhemoglobin ABG Sodium ABG Potassium ABG Glucose Oxyhemoglobin Carboxyhemoglobin Sodium Potassium Chloride Carbon Dioxide BUN Creatinine Glucose POC Glucose 151 H 175 H 182 H Lactic Acid Calcium Phosphorus Magnesium AST ALT Troponin T C-Reactive Protein Total Protein Albumin Arterial Blood Glucose Arterial Blood Ionized Calcium Urine WBC (Auto) Urine Creatinine Valproic Acid 09/06/20 09/06/20 09/06/20 23:19 Unknown Unknown WBC 17.3 H RBC 3.25 L Hgb 8.7 L Hct 26.2 L MCH 27 L MCHC RDW 15.6 H Lymph % (Auto) 4.4 L Lymph # (Auto) 0.8 L Eos # (Auto) Seg Neutrophils % 89.5 H Seg Neuts % (Manual) Lymphocytes % (Manual) Seg Neutrophils # 15.5 H Seg Neutrophils # Man Lymphocytes # (Manual) D-Dimer ABG pH POC ABG pO2 ABG pO2 ABG HCO3 ABG Hemoglobin ABG Oxyhemoglobin ABG Sodium ABG Potassium ABG Glucose Oxyhemoglobin Carboxyhemoglobin Sodium 132 L Potassium Chloride 91.9 L Carbon Dioxide BUN 104 H Creatinine 3.8 H Glucose 177 H POC Glucose 160 H Lactic Acid Calcium Phosphorus Magnesium 2.60 H AST ALT Troponin T C-Reactive Protein Total Protein Albumin Arterial Blood Glucose Arterial Blood Ionized Calcium Urine WBC (Auto) Urine Creatinine Valproic Acid 09/07/20 09/07/20 09/07/20 04:00 05:36 12:09 WBC RBC Hgb Hct MCH MCHC RDW Lymph % (Auto) Lymph # (Auto) Eos # (Auto) Seg Neutrophils % Seg Neuts % (Manual) Lymphocytes % (Manual) Seg Neutrophils # Seg Neutrophils # Man Lymphocytes # (Manual) D-Dimer ABG pH POC ABG pO2 ABG pO2 ABG HCO3 ABG Hemoglobin ABG Oxyhemoglobin ABG Sodium ABG Potassium ABG Glucose Oxyhemoglobin Carboxyhemoglobin Sodium Potassium Chloride 95.6 L Carbon Dioxide BUN 108 H Creatinine 3.9 H Glucose 129 H POC Glucose 151 H 172 H Lactic Acid Calcium Phosphorus Magnesium AST ALT Troponin T C-Reactive Protein Total Protein Albumin Arterial Blood Glucose Arterial Blood Ionized Calcium Urine WBC (Auto) Urine Creatinine Valproic Acid 09/07/20 09/07/20 09/07/20 15:28 18:00 21:21 WBC RBC Hgb Hct MCH MCHC RDW Lymph % (Auto) Lymph # (Auto) Eos # (Auto) Seg Neutrophils % Seg Neuts % (Manual) Lymphocytes % (Manual) Seg Neutrophils # Seg Neutrophils # Man Lymphocytes # (Manual) D-Dimer ABG pH POC ABG pO2 ABG pO2 ABG HCO3 ABG Hemoglobin ABG Oxyhemoglobin ABG Sodium ABG Potassium ABG Glucose Oxyhemoglobin Carboxyhemoglobin Sodium Potassium Chloride Carbon Dioxide BUN Creatinine Glucose POC Glucose 153 H 112 H Lactic Acid Calcium Phosphorus Magnesium AST ALT Troponin T C-Reactive Protein Total Protein Albumin Arterial Blood Glucose Arterial Blood Ionized Calcium Urine WBC (Auto) Urine Creatinine Valproic Acid 42.9 L 09/07/20 09/07/20 09/08/20 23:09 Unknown 05:08 WBC 13.6 H RBC 3.14 L Hgb 8.1 L Hct 25.2 L MCH 26 L MCHC RDW 15.5 H Lymph % (Auto) 6.0 L Lymph # (Auto) 0.8 L Eos # (Auto) 0.5 H Seg Neutrophils % 85.5 H Seg Neuts % (Manual) Lymphocytes % (Manual) Seg Neutrophils # 11.6 H Seg Neutrophils # Man Lymphocytes # (Manual) D-Dimer ABG pH POC ABG pO2 ABG pO2 ABG HCO3 ABG Hemoglobin ABG Oxyhemoglobin ABG Sodium ABG Potassium ABG Glucose Oxyhemoglobin Carboxyhemoglobin Sodium Potassium Chloride Carbon Dioxide BUN Creatinine Glucose POC Glucose 149 H 125 H Lactic Acid Calcium Phosphorus Magnesium AST ALT Troponin T C-Reactive Protein Total Protein Albumin Arterial Blood Glucose Arterial Blood Ionized Calcium Urine WBC (Auto) Urine Creatinine Valproic Acid 09/08/20 09/08/20 09/09/20 06:00 23:25 04:55 WBC RBC Hgb Hct MCH MCHC RDW Lymph % (Auto) Lymph # (Auto) Eos # (Auto) Seg Neutrophils % Seg Neuts % (Manual) Lymphocytes % (Manual) Seg Neutrophils # Seg Neutrophils # Man Lymphocytes # (Manual) D-Dimer ABG pH POC ABG pO2 ABG pO2 ABG HCO3 ABG Hemoglobin ABG Oxyhemoglobin ABG Sodium ABG Potassium ABG Glucose Oxyhemoglobin Carboxyhemoglobin Sodium 135 L Potassium Chloride 94.0 L 97.8 L Carbon Dioxide BUN 110 H 113 H Creatinine 3.7 H 3.7 H Glucose 127 H 156 H POC Glucose 135 H Lactic Acid Calcium 7.8 L Phosphorus Magnesium AST ALT Troponin T C-Reactive Protein Total Protein Albumin Arterial Blood Glucose Arterial Blood Ionized Calcium Urine WBC (Auto) Urine Creatinine Valproic Acid 09/09/20 05:10 WBC RBC Hgb Hct MCH MCHC RDW Lymph % (Auto) Lymph # (Auto) Eos # (Auto) Seg Neutrophils % Seg Neuts % (Manual) Lymphocytes % (Manual) Seg Neutrophils # Seg Neutrophils # Man Lymphocytes # (Manual) D-Dimer ABG pH POC ABG pO2 ABG pO2 ABG HCO3 ABG Hemoglobin ABG Oxyhemoglobin ABG Sodium ABG Potassium ABG Glucose Oxyhemoglobin Carboxyhemoglobin Sodium Potassium Chloride Carbon Dioxide BUN Creatinine Glucose POC Glucose 177 H Lactic Acid Calcium Phosphorus Magnesium AST ALT Troponin T C-Reactive Protein Total Protein Albumin Arterial Blood Glucose Arterial Blood Ionized Calcium Urine WBC (Auto) Urine Creatinine Valproic Acid Allied health notes reviewed: RT
[2020-09-09 12:21] LABS: ABG Base Excess -1.9 mmol/L (-2.0-3.0); ABG HCO3 22.7 mmol/L (20.0-26.0); ABG PCO2 38.1 mm Hg; ABG PH 7.393 pH Units (7.350-7.450); ABG PO2 87.6 mm Hg (80.0-90.0)
[2020-09-09 13:08] LABS: ABG Methemoglobin 0.4 % (0.0-1.5); ABG Oxygen Saturation 98.3 % (95.0-99.0)
[2020-09-09 13:42] LABS: Basophils % (Auto) 0.1 % (0.0-1.8); Eosinophils # (Auto) 0.5 K/mm3 (0.0-0.4); Eosinophils % (Auto) 3.3 % (0.0-4.3); Hematocrit 22.7 % (30.3-42.9); Hemoglobin 7.1 gm/dl (10.1-14.3); Lymphocytes # (Auto) 0.4 K/mm3 (1.2-5.4); Lymphocytes % (Auto) 2.9 % (13.4-35.0); Mean Corpuscular HGB Conc 31 % (30-34); Mean Corpuscular Volume 84 fl (79-97); Monocytes % (Auto) 6.9 % (0.0-7.3); Platelet Count 352 K/mm3 (140-440); Red Blood Count 2.69 M/mm3 (3.65-5.03); Red Cell Distribution Width 15.5 % (13.2-15.2)
--- NOTE | 2020-09-09 14:18 | Progress Note ---
Assessment and Plan 1. Acute kidney injury: Vasomotor FLORIDALMA superimposed on CKD stage 4 in the setting Cardiac arrest. Low FeNa. CT abdomen negative for hydro. Monitor renal function. Creatinine level around 3.6. Remain non-oliguric. Renal prognosis is guarded. Avoid nephrotoxic agents. Meds dosage based on GFR. Monitor for [employer] needs. 2. FEN: Hyperkalemia, improved. Metabolic acidosis, improved. Monitor lytes. 3. Acute respiratory failure with hypoxia: 2/2 b/p pneumonia. Covid test negative. Intubated, on vent. Followed by Pulmonary. 4. S/p OOH Cardiac arrest: Prolonged downtime. Followed by Cards. 5. Bladder retention: Pt has Foreman catheter now. 6. Diabetes mellitus type 2: Follow blood glucose. 7. Bradycardia: Was on Dopamine. Monitor. 8. Hypertension: Monitor BP. 9. Anemia, POA: Monitor. 10. Anoxic encephalopathy: Seen by Neuro. Family is aware of slim / poor prognosis. 11. Facial twitching: Vimpat. Son at the bedside is aware of poor prognosis. He is going to talk to other family members about withdrawing care. Subjective: Patient was seen and examined at the bedside. Son at the bedside. Examination: General appearance: well-developed, well-nourished, appears stated age, intubated, on vent, FiO2 30% HEENT: ATNC, pupils not reacting to light Neck: supple Respiratory: coarse breath sounds Cardiology: regular, S1S2, no murmur Gastrointestinal: soft, bowel sounds heard, not tender Integumentary: no rash, warm and dry Neurologic: not responding Ext: no edema : foreman catheter Subjective Date of service: 09/09/20 Principal diagnosis: Ac. hypoxemic resp failure; Cardiac arrest; AMS; AE-CHF; Hyperkalemia; FLORIDALMA Objective - Vital Signs Vital signs: Vital Signs - 12hr 09/09/20 09/09/20 09/09/20 03:00 03:22 03:56 Temperature 98.6 F Pulse Rate 66 68 Pulse Rate [ From Monitor] Respiratory 15 Rate Blood Pressure 88/35 113/39 O2 Sat by Pulse 99 Oximetry 09/09/20 09/09/20 09/09/20 04:00 05:00 06:01 Temperature Pulse Rate 69 69 74 Pulse Rate [ 70 From Monitor] Respiratory 22 19 25 H Rate Blood Pressure 122/51 122/51 102/37 O2 Sat by Pulse 98 96 Oximetry 09/09/20 09/09/20 09/09/20 07:01 07:28 07:40 Temperature Pulse Rate 71 71 74 Pulse Rate [ From Monitor] Respiratory 21 26 H Rate Blood Pressure 133/45 136/49 93/42 O2 Sat by Pulse 98 97 99 Oximetry 09/09/20 09/09/20 09/09/20 07:47 08:00 08:01 Temperature 98.6 F Pulse Rate 70 Pulse Rate [ 74 From Monitor] Respiratory 31 H Rate Blood Pressure 110/37 O2 Sat by Pulse 98 95 Oximetry 09/09/20 09/09/20 09/09/20 09:01 10:01 11:01 Temperature Pulse Rate 69 74 71 Pulse Rate [ From Monitor] Respiratory 27 H 27 H 27 H Rate Blood Pressure 100/34 141/49 118/38 O2 Sat by Pulse 99 98 95 Oximetry 09/09/20 09/09/20 09/09/20 11:50 12:00 13:01 Temperature 98 F Pulse Rate 70 73 71 Pulse Rate [ 71 From Monitor] Respiratory 27 H 27 H 27 H Rate Blood Pressure 117/41 113/44 135/44 O2 Sat by Pulse 98 97 98 Oximetry - Lab 09/09/20 12:23 09/09/20 04:55 Most recent lab results ABG pH 7.393 pH Units (7.350-7.450) 09/09/20 11:50 ABG pCO2 38.1 mm Hg 09/09/20 11:50 ABG pO2 87.6 mm Hg (80.0-90.0) 09/09/20 11:50 ABG HCO3 22.7 mmol/L (20.0-26.0) 09/09/20 11:50 ABG O2 Saturation 98.3 % (95.0-99.0) 09/09/20 11:50 Calcium 7.8 mg/dL (8.4-10.2) L 09/09/20 04:55 Phosphorus 4.60 mg/dL (2.5-4.5) H 09/01/20 09:41 Magnesium 2.60 mg/dL (1.7-2.3) H 09/06/20 Unknown Urine Creatinine 67.4 mg/dL (0.1-20.0) H 08/26/20 17:00 Urine Sodium 12 mmol/L 08/26/20 17:00 Medications & Allergies - Medications Allergies/Adverse Reactions: Allergies No Known Allergies Allergy (Verified 07/31/18 07:06) Home Medications: Home Medications Medication Instructions Recorded Confirmed Last Taken Type Albuterol Mdi (or & Nicu Only) 2 puff IH QID PRN #1 inhalation 08/07/18 09/06/20 Unknown Rx [ProAir HFA Inhaler] Sucralfate [Carafate] 1 gm PO ACHS #30 tablet 08/07/18 09/06/20 03/13/20 Rx Insulin Regular, Human [HumuLIN R] 0 unit SQ AC #1 vial 08/11/18 09/06/20 Unknown Rx Labetalol HCl [Labetalol 300mg TAB] 300 mg PO BID #60 tablet 11/11/19 09/06/20 03/14/20 Rx Furosemide [Lasix TAB] 80 mg PO DAILY #14 tablet 03/27/20 09/06/20 Unknown Rx Insulin Glargine [Lantus VIAL] 15 units SUB-Q QAM #1 vial 03/27/20 09/06/20 Unknown Rx amLODIPine 10 mg PO QDAY #30 tablet 03/27/20 09/06/20 Unknown Rx Levemir Flextouch 10 units SUB-Q DAILY 09/06/20 09/06/20 Unknown History Levothyroxine 75 mg PO DAILY 09/06/20 09/06/20 Unknown History Active Medications: Generic Name Dose Route Start Last Admin Trade Name Freq PRN Reason Stop Dose Admin Albuterol 2.5 mg 08/25/20 14:55 Albuterol 2.5 Mg/3 Ml Nebu IH Q3HRT PRN Shortness Of Breath Lipase/Protease/Amylase 1 each 08/26/20 12:15 Lipase 10,500/Protease 25,000/Amylase 43,750 (Units) Dr Gu FEEDTUBE PRN PRN For Clogged Feeding Tube Aspirin 81 mg 08/27/20 10:00 09/09/20 09:28 Aspirin 81 Mg Tab Chew PO 81 mg QDAY TERA Administration Atorvastatin Calcium 40 mg 08/26/20 22:00 09/08/20 22:00 Atorvastatin 40 Mg Tab PO 40 mg QHS TERA Administration Atropine Sulfate 0.5 mg 09/05/20 13:09 09/05/20 13:44 Atropine 0.1% (1 Mg/10 Ml) Cardiac Syringe IV 0.5 mg Q5MIN PRN Administration Bradycardia Dextrose 50 ml 08/26/20 19:18 Dextrose 50% In Water (25gm) 50 Ml Syringe IV Q30MIN PRN Hypoglycemia Protocol Famotidine 20 mg 08/28/20 10:00 09/09/20 09:28 Famotidine 20 Mg Tab PO 20 mg DAILY TERA Administration Heparin Sodium (Porcine) 5,000 unit 08/26/20 22:00 09/09/20 09:28 Heparin 5,000 Unit/1 Ml Vial SUB-Q 5,000 unit Q12HR TERA Administration Hydralazine HCl 10 mg 08/26/20 01:20 09/04/20 11:06 Hydralazine 20 Mg/1 Ml Inj IV 10 mg Q4HR PRN Administration Blood Pressure Hydrophilic Ointment 1 applic 08/25/20 11:07 08/25/20 11:57 Lip Therapy Vaseline TP 1 applic Q2HR PRN Administration Dry Lips Lacosamide 200 mg/ Sodium 120 mls @ 100 mls/hr 09/04/20 11:00 09/09/20 11:07 Chloride IV 100 mls/hr Q12H TERA Administration Levetiracetam 500 mg/ Dextrose 105 mls @ 400 mls/hr 09/04/20 11:00 09/09/20 09:28 IV 400 mls/hr Q12HR TERA Administration Valproate Sodium 750 mg/ 107.5 mls @ 100 mls/hr 09/05/20 14:00 09/09/20 13:39 Sodium Chloride IV 100 mls/hr Q8HR TERA Administration Dopamine HCl/Dextrose 800 mg in 250 mls @ 3.563 mls/hr 09/05/20 15:00 0 09/09/20 07:30 Intropin Drip 800 Mg/D5w 250 Ml IV 0 mcg/kg/min TITR TERA 0 mls/hr Titration Protocol 2 MCG/KG/MIN Midazolam HCl 100 mg/ Sodium 100 mls @ 1 mls/hr 09/06/20 14:00 09/09/20 10:30 Chloride IV 0 mg/hr TITR TERA 0 mls/hr Titration Protocol 1 MG/HR Insulin Glargine 25 units 09/01/20 22:00 09/09/20 00:30 Insulin Glargine 100 Units/Ml SUB-Q 25 units QHS TERA Administration Insulin Human Lispro 0 unit 08/27/20 12:00 09/09/20 12:52 Insulin Lispro 100 Unit/Ml SUB-Q Not Given Q6HR [facility] Protocol Lorazepam 2 mg 09/03/20 15:12 09/05/20 13:41 Lorazepam 2 Mg/Ml Vial IV 2 mg Q1H PRN Administration Seizures Multi-Ingred Cream/Lotion/Oil/Oint 1 applic 08/25/20 11:07 Mineral Oil/Petrolatum, White Ophth Oint 3.5 Gm OU Q4HR PRN Dry Eye(s) Senna/Docusate Sodium 1 tab 08/25/20 22:00 09/09/20 09:28 Sennosides/Docusate Sodium 8.6/50 Mg Tab FEEDTUBE 1 tab BID TERA Administration Simple Syrup 15 ml 08/26/20 12:15 Simple Syrup 15 Ml FEEDTUBE PRN PRN Hypoglycemia Simple Syrup 30 ml 08/26/20 12:15 Simple Syrup 15 Ml FEEDTUBE PRN PRN Hypoglycemia Sodium Bicarbonate 325 mg 08/26/20 12:15 Sodium Bicarbonate 325 Mg Tab FEEDTUBE PRN PRN For Clogged Feeding Tube Sodium Chloride 10 ml 08/25/20 22:00 09/08/20 22:05 Sodium Chloride 0.9% 10 Ml Flush Syringe IV 10 ml BID TERA Administration Sodium Chloride 10 ml 08/25/20 14:55 08/29/20 04:05 Sodium Chloride 0.9% 10 Ml Flush Syringe IV 10 ml PRN PRN Administration LINE FLUSH Tamsulosin HCl 0.8 mg 09/06/20 10:00 09/09/20 09:28 Tamsulosin 0.4 Mg Cap PO 0.8 mg QDAY TERA Administration
--- NOTE | 2020-09-09 19:37 | Progress Note ---
Assessment and Plan This is a 75-year-old female with CHF, OHS DM, CKD, morbid obesity, GERD, hypertension, chronic respiratory failure admitted s/p cardiac arrest A/P --Anoxic encephalopathy -Neurology consulted, appreciate recommendations -08/[address] head shows no CT evidence of acute abnormality -08/28 MRI brain without contrast shows abnormal diffusion and FLAIR signal abnormality which may suggest hypoxic/ischemic brain injury, hypoglycemic encephalopathy and perhaps Creutsfeldt-Cornelius disease otherwise no focal mass, hemorrhage or hydrocephalus seen -08/30 EEG- results pending Seizure -Keppra 500 mg mg BID , vimpat, Ativan as needed for facial twitching -Seizure/aspiration precautions -per neuro prognosis poor based on MRI -NO mind altering medications - to allow for neuro assessment and brain function -opens eyes spontaneously ; pupils not reactive to light; neg threat; pos cough; withdrawal on right to deep pain; no response to deep pain on left Pt has 8 living children- updated on plan of care --S/p cardiac arrest with prolonged down time- see ER note -ddimer elevated on admit following cardiac arrest -Cardiology has seen and signed off- call if needed -08/25 echocardiogram shows LVEF 40 to 45%, LV normal size, LV systolic function mildly decreased, mild diastolic dysfunction, mildly dilated right ventricle, pulmonary hypertension RVSP 45 mmHg -asa and statin Hypertension -home norvasc , hydral added -Blood pressure monitoring per protocol -IV hydralazine as needed --Acute hypoxic respiratory failure -Chronic respiratory insufficiency at home with 3 L oxygen via nasal cannula -remains intubated and ventilated on cpap this AM -Wean as tolerated; trend pulse ox -CCM following -VAP bundle -nebs as needed Multifocal pneumonia/ ? aspiration event -08/25 CXR shows worsening patchy bilateral pulmonary opacities -08/25 CTA chest shows no evidence of pulmonary embolism, bilateral pulmonary processes with large bilateral pleural effusions, pneumonia is a concern, pulmonary edema could be a similar appearance versus pulmonary edema --Protein Calorie Malnutrition TF per nutrition bowel reg. --FLORIDALMA on CKD secondary to patient under nephropathy -Nephrology consulted, patient recommendations -Daily weights -Avoid nephrotoxic medications; avoid NITIN/ARB -bladder scan with high residuals requiring frequent intermittent caths so foreman replaced at 1230 -trend and replace electrolytes as needed -Trend Cr --Urinary retention -Foreman replaced 08/31 for urinary retention --Anemia -Admit H/H 8.6/27.8 -Transfuse for hemoglobin less than 7 -Trend CBC --VTE prophylaxis with SCD and SQH --Pneumonia -trend WBC and temp curve -afebrile -trend cultures -covid neg on admit --Diabetes mellitus -SSI -Lantus, increase as needed -Accu-Cheks every 6h -avoid hypoglycemia -hx obesity DVT/GI prophylaxis: SCDs to bilateral lower extremities heparin subcu, PPI Disposition: ICU, need to discuss with family plan of care, general surgery was consulted for PEG and trach, patient is still making decisions on patient's care. Lines: PIV; foreman The high probability of a clinically significant, sudden or life threatening deterioration of the [cardiac, pulmonary, neuro, renal, infectious disease] system(s) required my full and direct attention, intervention and personal management. The aggregate critical care time was [35] minutes. This time is in addition to time spent performing reported procedures but includes the following: [x] Data Review and interpretation [x] Patient assessment and monitoring of vital signs [x] Documentation [x] Medication orders and management Brief History: This is a 69-year-old female with OHS, DM, CKD stage IV, morbid obesity CHF, GERD, HTN, chronic respiratory failure on 3 L of home oxygen via nasal cannula who presented to the emergency department on 08/25 after being found down unresponsive at 0950 hours by family and upon EMS arrival she was unresponsive and asystolic arrest. Patient was treated with ACLS protocol with eventual ROSC after at least 15 minutes of ACLS and patient was transported to [facility]. In the emergency department patient was found to have acute hypoxic respiratory failure and subsequently intubated on vasopressor support, she underwent a CXR which showed bilateral pneumonia and exam is consistent with SIRS. CCM and cardiology were consulted and patient was admitted to the hospital service with acute hypoxic respiratory failure, anoxic encephalopathy, s/p cardiac arrest, multifocal pneumonia, FLORIDALMA on CKD. Daily clinical course: 08/26/20 patient is seen and examined. Patient is on vent. WBC 17.9 and hemoglobin 8.3 hematocrit 25.6. Patient may have 1 episode of questionable seizure. Patient BUN is 56 creatinine 3.4. Will consult nephrology. We also start the patient on Rocephin 2 g IV daily and Zithromax. Aspirin 81 mg p.o. daily and Lipitor. Patient is having echocardiogram. Cardiology and critical care will see the patient as consult tension. Continue current management. We have started on NG tube feeding and consult nutrition for evaluation. Recheck CBC BMP in the morning. Case discussed with daughter Leena [phone] 08/27: Patient remains on full ventilatory support, considering concern for seizure yesterday under the circumstance of out of hospital cardiac arrest, and concern for anoxic encephalopathy, will proceed with Neurology consultation. 08/28: At the time my examination patient sedation of propofol 30 and fentanyl 1 was being held and she was on CMV tidal and 450, rate of 18, PEEP of 6 and FiO2 of 35%. Neurology was consulted. I updated the patient's daughter Leena Payton at bedside and told her of the pending tests the neurologist has ordered. 08/29: Increase in Lantus due to persistent hypoglycemia, chest ultrasound ordered for possible thoracentesis by [facility], MRI brain pending. Remove Foreman catheter if okay with nephrology. Increase in beta-skylar by [facility] however cardiology decreased hydralazine per neurology recommendations. At the time my examination patient was on CPAP trial pressure support of 12, PEEP of 6 and 35% FiO2. RT obtain an ABG we will continue CPAP as tolerated. 08/28: No acute events overnight. Noted to have seizure, addition of vimpat 08/29: Chest US noted to have pleural effusions, cxr shows pulmonary edema, nephro ordered lasix x1. CCM and nephro had conversation son at bedside. Surgery consulted for trach/peg. [facility] plans for IR thora if family decides aggressive care 08/30 No acute overnight events 08/31: given 80mg lasix by nephro, increase in lantus, Dulcolax suppository given for no recorded BM for 5 to 6 days 72: Patient did not have a further response to 80 mg of Lasix yesterday, no acute events reported overnight, patient is having several loose BMs 09/02: Patient was having facial twitching this morning, 1 mg of Ativan was given to the patient, Keppra was increased. No family at the bedside. 09/04: Patient continues to have facial twitching, neurology has made adjustments to medications for seizure control, spoke with critical care and the son at the bedside, family still deciding on the final route of care 09/05: Patient seen and examined in the ICU, continue to have social drinking. General surgery consulted for trach and PEG. Patient with CPAP vent setting. 09/06: Patient developed sinus bradycardia, cardiology consulted. Plan for trach and PEG placement postponed.. 09/07: Family wish to continue full CODE STATUS and wished to proceed with trach and PEG. Heart rate currently stable with dopamine. Patient remains on mechanical ventilation at CMV setting. Very poor prognosis. Continue to have facial twitching, neurology following appreciate recommendation. 09/08/20: clinically no change, on mechanical ventilation. cont current care, plan for trach and PEG on Friday. family want full code. 09/09/20; cont supportive care, follow clinically. planned for trach and PEG next week. Subjective Date of service: 09/09/20 Principal diagnosis: Ac. hypoxemic resp failure; Cardiac arrest; AMS; AE-CHF; Hyperkalemia; FLORIDALMA Interval history: Patient seen and examined. Medical records and medication list reviewed. No acute event overnight noted by the RN. Vital reviewed, remains on mechanical ventilation Discussed plan of care at bedside with RN Objective - Exam Narrative Exam: GENERAL: well-developed and well-nourished elderly female lying on bed with ventilator support HEENT: Normocephalic. Atraumatic. No conjunctival congestion or icterus. Patient has moist mucous membranes. NECK: Supple. Trachea midline. CHEST/LUNGS: On mechanical ventilation with CPAP setting HEART/CARDIOVASCULAR: Regular in rate and rhythm. S1 and S2 positive. ABDOMEN: Abdomen is soft, nontender. Patient has normal bowel sounds. SKIN: There is no rash. Warm and dry. NEURO: Does not follow command MUSCULOSKELETAL: No joint effusion or tenderness. EXTRIMITY: No edema, no cyanosis or clubbing. PSYCH: Unable to assess - Constitutional Vitals: Vital Signs - 12hr 09/09/20 09/09/20 09/09/20 07:40 07:47 08:00 Temperature 98.6 F Pulse Rate 74 72 Pulse Rate [ 74 From Monitor] Respiratory 26 H Rate Blood Pressure 93/42 O2 Sat by Pulse 99 98 Oximetry 09/09/20 09/09/20 09/09/20 08:01 09:01 10:01 Temperature Pulse Rate 70 69 74 Pulse Rate [ From Monitor] Respiratory 31 H 27 H 27 H Rate Blood Pressure 110/37 100/34 141/49 O2 Sat by Pulse 95 99 98 Oximetry 09/09/20 09/09/20 09/09/20 11:01 11:50 12:00 Temperature 98 F Pulse Rate 71 70 69 Pulse Rate [ 71 From Monitor] Respiratory 27 H 27 H 27 H Rate Blood Pressure 118/38 117/41 113/44 O2 Sat by Pulse 95 98 97 Oximetry 09/09/20 09/09/20 09/09/20 13:01 14:01 15:00 Temperature Pulse Rate 71 71 70 Pulse Rate [ From Monitor] Respiratory 27 H 28 H 28 H Rate Blood Pressure 135/44 115/43 113/40 O2 Sat by Pulse 98 97 97 Oximetry 09/09/20 09/09/20 09/09/20 15:33 16:00 16:01 Temperature 99 F Pulse Rate 71 71 69 Pulse Rate [ 85 From Monitor] Respiratory 19 Rate Blood Pressure 127/42 119/39 O2 Sat by Pulse 97 98 97 Oximetry 09/09/20 09/09/20 17:01 18:01 Temperature Pulse Rate 69 79 Pulse Rate [ From Monitor] Respiratory 20 20 Rate Blood Pressure 96/45 102/42 O2 Sat by Pulse 98 96 Oximetry - Labs CBC & Chem 7: 09/10/20 06:50 09/11/20 04:30 Labs: Abnormal lab results 09/08/20 09/09/20 09/09/20 Range/Units 23:25 04:55 05:10 WBC (4.5-11.0) K/mm3 RBC (3.65-5.03) M/mm3 Hgb (10.1-14.3) gm/dl Hct (30.3-42.9) % MCH (28-32) pg RDW (13.2-15.2) % Lymph % (Auto) (13.4-35.0) % Lymph # (Auto) (1.2-5.4) K/mm3 [place] # (Auto) (0.0-0.8) K/mm3 Eos # (Auto) (0.0-0.4) K/mm3 Seg Neutrophils % (40.0-70.0) % Seg Neutrophils # (1.8-7.7) K/mm3 ABG Hemoglobin (12.0-16.0) gm/dl Chloride 97.8 L (98-107) mmol/L BUN 113 H (7-17) mg/dL Creatinine 3.7 H (0.6-1.2) mg/dL Glucose 156 H (65-100) mg/dL POC Glucose 135 H 177 H (70-105) mg/dL Calcium 7.8 L (8.4-10.2) mg/dL 09/09/20 09/09/20 09/09/20 Range/Units 11:39 11:50 12:23 WBC 14.8 H (4.5-11.0) K/mm3 RBC 2.69 L (3.65-5.03) M/mm3 Hgb 7.1 L (10.1-14.3) gm/dl Hct 22.7 L (30.3-42.9) % MCH 26 L (28-32) pg RDW 15.5 H (13.2-15.2) % Lymph % (Auto) 2.9 L (13.4-35.0) % Lymph # (Auto) 0.4 L (1.2-5.4) K/mm3 [place] # (Auto) 1.0 H (0.0-0.8) K/mm3 Eos # (Auto) 0.5 H (0.0-0.4) K/mm3 Seg Neutrophils % 86.8 H (40.0-70.0) % Seg Neutrophils # 12.8 H (1.8-7.7) K/mm3 ABG Hemoglobin 6.3 L (12.0-16.0) gm/dl Chloride (98-107) mmol/L BUN (7-17) mg/dL Creatinine (0.6-1.2) mg/dL Glucose (65-100) mg/dL POC Glucose 127 H (70-105) mg/dL Calcium (8.4-10.2) mg/dL 09/09/20 Range/Units 17:37 WBC (4.5-11.0) K/mm3 RBC (3.65-5.03) M/mm3 Hgb (10.1-14.3) gm/dl Hct (30.3-42.9) % MCH (28-32) pg RDW (13.2-15.2) % Lymph % (Auto) (13.4-35.0) % Lymph # (Auto) (1.2-5.4) K/mm3 [place] # (Auto) (0.0-0.8) K/mm3 Eos # (Auto) (0.0-0.4) K/mm3 Seg Neutrophils % (40.0-70.0) % Seg Neutrophils # (1.8-7.7) K/mm3 ABG Hemoglobin (12.0-16.0) gm/dl Chloride (98-107) mmol/L BUN (7-17) mg/dL Creatinine (0.6-1.2) mg/dL Glucose (65-100) mg/dL POC Glucose 138 H (70-105) mg/dL Calcium (8.4-10.2) mg/dL HEART Score - HEART Score Troponin: Troponin T 0.057 ng/mL (0.00-0.029) H 08/25/20 11:23
[2020-09-10] MEDS: LACOSAMIDE 200 MG in SODIUM CHLORIDE 0.9% 100 ML IV SCH ×2 (02:40→11:18)
[2020-09-10] MEDS: INSULIN LISPRO 100 UNIT/ML SUB-Q SCH ×4 (02:41→18:19)
[2020-09-10] MEDS: VALPROATE SODIUM 750 MG in SODIUM CHLORIDE 0.9% 100 ML IV SCH ×3 (06:50→21:48)
[2020-09-10 07:39] LABS: Basophils % (Auto) 0.1 % (0.0-1.8); Eosinophils # (Auto) 0.5 K/mm3 (0.0-0.4); Eosinophils % (Auto) 4.2 % (0.0-4.3); Hematocrit 22.3 % (30.3-42.9); Hemoglobin 7.1 gm/dl (10.1-14.3); Lymphocytes # (Auto) 0.5 K/mm3 (1.2-5.4); Mean Corpuscular HGB Conc 32 % (30-34); Mean Corpuscular Volume 80 fl (79-97); Monocytes # (Auto) 0.7 K/mm3 (0.0-0.8); Monocytes % (Auto) 5.3 % (0.0-7.3); Platelet Count 368 K/mm3 (140-440); Red Blood Count 2.78 M/mm3 (3.65-5.03); Red Cell Distribution Width 15.6 % (13.2-15.2)
[2020-09-10 08:04] LABS: Calcium 8.4 mg/dL (8.4-10.2)
[2020-09-10] MEDS ORDERED: POTASSIUM CHLORIDE ER 20 MEQ TAB PO SCH (09:00)
[2020-09-10] MEDS: TAMSULOSIN 0.4 MG CAP PO SCH (09:48)
[2020-09-10] MEDS: ASPIRIN 81 MG TAB CHEW PO SCH (09:48)
[2020-09-10] MEDS: levETIRAcetam 500 MG in DEXTROSE 5% IN WATER 100 ML IV SCH ×2 (09:48→21:48)
[2020-09-10] MEDS: SENNOSIDES/DOCUSATE SODIUM 8.6/50 MG TAB FEEDTUBE SCH ×2 (09:48→21:47)
[2020-09-10] MEDS: FAMOTIDINE 20 MG TAB PO SCH (09:48)
[2020-09-10] MEDS: HEPARIN 5,000 UNIT/1 ML VIAL SUB-Q SCH ×2 (09:48→21:47)
[2020-09-10] MEDS: LEVOTHYROXINE 75 MCG TAB PO SCH (09:50)
[2020-09-10] MEDS ORDERED: LEVOTHYROXINE PO SCH (10:00)
--- NOTE | 2020-09-10 10:37 | Progress Note ---
Assessment and Plan Assessment and Plan Assessment and plan: This is a 75-year-old female with CHF, OHS DM, CKD, morbid obesity, GERD, hypertension, chronic respiratory failure admitted s/p cardiac arrest #NEURO -Anoxic encephalopathy -08/[address] head shows no CT evidence of acute abnormality -08/28 MRI brain without contrast shows abnormal diffusion and FLAIR signal abnormality which may suggest hypoxic/ischemic brain injury, -08/30 EEG- remarkable for diffuse slowing 3-4 Hz no clear epileptiform discharges is noted - Today she is with facial twitching left>Right face mainly Seizure can not be excluded --- Repeat EEG is remarkable for recurrent right frontal rubio and a run for over 200 sec. of generalized 3 hz rhythmic activity associated with the left facial twitching with focal seizure is most likley is present ... -repeat EEG yesterday is remarkable for diffuse slowing and BIPLED is noted intermittently , no clear generalized seizure is noted during facial twitching - OFF versed -Keppra decrease to 500 mg BID due to elevated creatinine ,give IV, - vimpat is to increased to 200 mg IV bid- - valproic acid 750 mg IV tid and or in [place] tube , Ativan as needed for facial twitching -Seizure/aspiration precautions -Prognosis over all is poor with worsening in mental status Brain stem reflexes more suppressed Off sedation , no seizure -Only slight pupil reaction today -Pt has 8 living children- updated on plan of care Case Management following if decision is not made by family in 48 hours we will order trach/Peg Friday (09/04) #CV -NSR -S/p cardiac arrest with prolonged down time- -ddimer elevated on admit following cardiac arrest -Cardiology has seen and signed off- call if needed -08/25 echocardiogram shows LVEF 40 to 45%, LV normal size, LV systolic function mildly decreased, mild diastolic dysfunction, mildly dilated right ventricle, - pulmonary hypertension RVSP 45 mmHg -asa and statin -Hypertension -home norvasc , hydral added -Blood pressure monitoring per protocol -IV hydralazine as needed #RESP Acute hypoxic respiratory failure -Chronic respiratory insufficiency at home with 3 L oxygen via nasal cannula -remains intubated and ventilated on cpap this AM -Wean as tolerated; trend pulse ox -CCM following -VAP bundle -nebs as needed Multifocal pneumonia/ ? aspiration event -08/25 CXR shows worsening patchy bilateral pulmonary opacities -08/25 CTA chest shows no evidence of pulmonary embolism, bilateral pulmonary processes with large bilateral pleural effusions, pneumonia is a concern, pulmon alison edema could be a similar appearance versus pulmonary edema # FLORIDALMA on CKD secondary to patient under nephropathy -trend and replace electrolytes as needed -Trend Cr #Urinary retention -Foreman replaced 08/31 for urinary retention #HEME Anemia -Admit H/H 8.6/27.8 #VTE prophylaxis with SCD and SQH #ID -Pneumonia -covid neg on admit #ENDO Diabetes mellitus DVT/GI prophylaxis: SCDs to bilateral lower extremities heparin subcu, PPI Disposition: ICU, need to discuss with family plan of care Lines: PIV; foreman pt. is evaluated in ICU time spent evaluating chart and lab result as well as test and exam pt. is >40 minutes Prognosis is poor will follow as needed Subjective Principal diagnosis: Ac. hypoxemic resp failure; Cardiac arrest; AMS; AE-CHF; Hyperkalemia; FLORIDALMA Interval history: status is unchanged not following command on vent , vital stable Off Dopamin off Beta skylar , Off versed, not responding to verbal or sternal rub. family requested peg tube and trachestomy done EEG noted valproic acid level is #48 No facial twitching is noted >48 hours Bun/Cr#113/3.7---113/3.7 stable No hemodialysis Objective - Vital Sign Vital Signs - 12hr 09/09/20 09/09/20 09/09/20 23:01 23:36 23:43 Temperature 98.5 F Pulse Rate 71 70 Pulse Rate [ From Monitor] Respiratory 20 21 Rate Blood Pressure 106/46 115/49 O2 Sat by Pulse 99 Oximetry 09/10/20 09/10/20 09/10/20 00:00 00:01 00:09 Temperature Pulse Rate 72 71 69 Pulse Rate [ 72 From Monitor] Respiratory 19 Rate Blood Pressure 115/49 O2 Sat by Pulse 98 90 99 Oximetry 09/10/20 09/10/20 09/10/20 01:01 02:01 03:01 Temperature Pulse Rate 71 72 70 Pulse Rate [ From Monitor] Respiratory 21 21 21 Rate Blood Pressure 120/56 76/47 76/47 O2 Sat by Pulse 98 Oximetry 09/10/20 09/10/20 09/10/20 04:00 04:01 04:36 Temperature 98.8 F Pulse Rate 124 H 68 68 Pulse Rate [ From Monitor] Respiratory 22 Rate Blood Pressure 141/54 130/53 O2 Sat by Pulse 98 99 Oximetry 09/10/20 09/10/20 09/10/20 04:49 05:01 06:01 Temperature Pulse Rate 65 66 Pulse Rate [ 69 From Monitor] Respiratory 15 18 Rate Blood Pressure 130/51 134/56 O2 Sat by Pulse 98 97 Oximetry 09/10/20 09/10/20 09/10/20 07:01 07:35 07:36 Temperature 98.3 F Pulse Rate 70 70 Pulse Rate [ From Monitor] Respiratory 21 Rate Blood Pressure 148/66 156/61 O2 Sat by Pulse 100 100 Oximetry 09/10/20 09/10/20 09/10/20 08:00 08:01 09:01 Temperature 98.3 F Pulse Rate 70 70 69 Pulse Rate [ 70 From Monitor] Respiratory 22 21 Rate Blood Pressure 154/61 148/58 O2 Sat by Pulse 98 99 100 Oximetry 09/10/20 10:01 Temperature Pulse Rate 72 Pulse Rate [ From Monitor] Respiratory 22 Rate Blood Pressure 166/70 O2 Sat by Pulse Oximetry - General Apperance Constitutional: comfortable - EENT EENT: PERRL, mucous membranes moist - Respiratory Respiratory: chest non-tender, lungs clear, rhonchi - Cardiovascular Extremities: no peripheral edema bilat, no clubbing, cyanosis - Gastrointestinal Gastrointestinal: normoactive bowel sounds - Integumentary Integumentary: normal - Neurologic Cranial nerve examination: other (No corneal pupils 2 mm sluggish,no EOM is noted , no gag or spontneous movment is noted) - Laboratory Findings CBC and BMP: 09/10/20 06:50 09/10/20 06:50 Abnormal Lab Findings: Abnormal Labs 08/25/20 08/25/20 08/25/20 11:14 11:17 11:23 WBC 11.5 H RBC 3.22 L Hgb 8.6 L Hct 27.6 L MCH 27 L MCHC RDW 15.6 H Lymph % (Auto) Lymph # (Auto) Thomas # (Auto) Eos # (Auto) Seg Neutrophils % Seg Neuts % (Manual) 89.0 H Lymphocytes % (Manual) 5.0 L Seg Neutrophils # Seg Neutrophils # Man 10.2 H Lymphocytes # (Manual) 0.6 L D-Dimer ABG pH 7.290 L POC ABG pO2 161.1 H ABG pO2 ABG HCO3 ABG Hemoglobin 8.9 L ABG Oxyhemoglobin 98.6 H ABG Sodium 135.2 L ABG Potassium 5.9 H ABG Glucose 210 H Oxyhemoglobin Carboxyhemoglobin 0.4 L Sodium Potassium Chloride Carbon Dioxide BUN Creatinine Glucose POC Glucose Lactic Acid Calcium Phosphorus Magnesium AST ALT Troponin T C-Reactive Protein Total Protein Albumin Arterial Blood Glucose 210 H Arterial Blood Ionized Calcium 4.4 L Urine WBC (Auto) 31.0 H Urine Creatinine Valproic Acid 08/25/20 08/25/20 08/25/20 11:23 11:23 11:23 WBC RBC Hgb Hct MCH MCHC RDW Lymph % (Auto) Lymph # (Auto) Thomas # (Auto) Eos # (Auto) Seg Neutrophils % Seg Neuts % (Manual) Lymphocytes % (Manual) Seg Neutrophils # Seg Neutrophils # Man Lymphocytes # (Manual) D-Dimer > 06569 H ABG pH POC ABG pO2 ABG pO2 ABG HCO3 ABG Hemoglobin ABG Oxyhemoglobin ABG Sodium ABG Potassium ABG Glucose Oxyhemoglobin Carboxyhemoglobin Sodium Potassium 6.4 H* Chloride Carbon Dioxide 21 L BUN 52 H Creatinine 3.5 H Glucose 194 H POC Glucose Lactic Acid 3.30 H* Calcium 8.1 L Phosphorus Magnesium AST 103 H ALT 77 H Troponin T 0.057 H C-Reactive Protein Total Protein 5.8 L Albumin 3.4 L Arterial Blood Glucose Arterial Blood Ionized Calcium Urine WBC (Auto) Urine Creatinine Valproic Acid 08/25/20 08/25/20 08/25/20 13:51 15:45 20:34 WBC RBC Hgb Hct MCH MCHC RDW Lymph % (Auto) Lymph # (Auto) Thomas # (Auto) Eos # (Auto) Seg Neutrophils % Seg Neuts % (Manual) Lymphocytes % (Manual) Seg Neutrophils # Seg Neutrophils # Man Lymphocytes # (Manual) D-Dimer ABG pH POC ABG pO2 66.3 L ABG pO2 ABG HCO3 ABG Hemoglobin 9.1 L ABG Oxyhemoglobin 92.5 L ABG Sodium ABG Potassium ABG Glucose 225 H Oxyhemoglobin Carboxyhemoglobin Sodium Potassium Chloride Carbon Dioxide BUN Creatinine Glucose POC Glucose 188 H 233 H Lactic Acid Calcium Phosphorus Magnesium AST ALT Troponin T C-Reactive Protein Total Protein Albumin Arterial Blood Glucose 225 H Arterial Blood Ionized Calcium 4.4 L Urine WBC (Auto) Urine Creatinine Valproic Acid 08/26/20 08/26/20 08/26/20 04:14 05:04 05:04 WBC 17.9 H RBC 3.05 L Hgb 8.3 L Hct 25.6 L MCH 27 L MCHC RDW 15.3 H Lymph % (Auto) Lymph # (Auto) Thomas # (Auto) Eos # (Auto) Seg Neutrophils % Seg Neuts % (Manual) 96.0 H Lymphocytes % (Manual) 1.0 L Seg Neutrophils # Seg Neutrophils # Man 17.2 H Lymphocytes # (Manual) 0.2 L D-Dimer ABG pH POC ABG pO2 131.3 H ABG pO2 ABG HCO3 ABG Hemoglobin 8.6 L ABG Oxyhemoglobin 98.2 H ABG Sodium ABG Potassium ABG Glucose 182 H Oxyhemoglobin Carboxyhemoglobin 0.2 L Sodium Potassium Chloride Carbon Dioxide BUN 56 H Creatinine 3.4 H Glucose 187 H POC Glucose Lactic Acid Calcium 8.3 L Phosphorus Magnesium AST 54 H ALT 57 H Troponin T C-Reactive Protein Total Protein 5.4 L Albumin 2.9 L Arterial Blood Glucose 182 H Arterial Blood Ionized Calcium 4.3 L Urine WBC (Auto) Urine Creatinine Valproic Acid 08/26/20 08/26/20 08/26/20 05:40 07:36 11:54 WBC RBC Hgb Hct MCH MCHC RDW Lymph % (Auto) Lymph # (Auto) Thomas # (Auto) Eos # (Auto) Seg Neutrophils % Seg Neuts % (Manual) Lymphocytes % (Manual) Seg Neutrophils # Seg Neutrophils # Man Lymphocytes # (Manual) D-Dimer ABG pH POC ABG pO2 ABG pO2 ABG HCO3 ABG Hemoglobin ABG Oxyhemoglobin ABG Sodium ABG Potassium ABG Glucose Oxyhemoglobin Carboxyhemoglobin Sodium Potassium Chloride Carbon Dioxide BUN Creatinine Glucose POC Glucose 179 H 171 H 190 H Lactic Acid Calcium Phosphorus Magnesium AST ALT Troponin T C-Reactive Protein Total Protein Albumin Arterial Blood Glucose Arterial Blood Ionized Calcium Urine WBC (Auto) Urine Creatinine Valproic Acid 08/26/20 08/26/20 08/26/20 15:14 17:00 18:50 WBC RBC Hgb Hct MCH MCHC RDW Lymph % (Auto) Lymph # (Auto) Thomas # (Auto) Eos # (Auto) Seg Neutrophils % Seg Neuts % (Manual) Lymphocytes % (Manual) Seg Neutrophils # Seg Neutrophils # Man Lymphocytes # (Manual) D-Dimer ABG pH POC ABG pO2 ABG pO2 ABG HCO3 ABG Hemoglobin ABG Oxyhemoglobin ABG Sodium ABG Potassium ABG Glucose Oxyhemoglobin Carboxyhemoglobin Sodium Potassium Chloride Carbon Dioxide BUN Creatinine Glucose POC Glucose 158 H Lactic Acid Calcium Phosphorus Magnesium AST ALT Troponin T C-Reactive Protein 7.80 H Total Protein Albumin Arterial Blood Glucose Arterial Blood Ionized Calcium Urine WBC (Auto) Urine Creatinine 67.4 H Valproic Acid 08/26/20 08/27/20 08/27/20 22:01 04:10 05:12 WBC RBC Hgb Hct MCH MCHC RDW Lymph % (Auto) Lymph # (Auto) Thomas # (Auto) Eos # (Auto) Seg Neutrophils % Seg Neuts % (Manual) Lymphocytes % (Manual) Seg Neutrophils # Seg Neutrophils # Man Lymphocytes # (Manual) D-Dimer ABG pH 7.454 H POC ABG pO2 74.9 L ABG pO2 ABG HCO3 ABG Hemoglobin 7.9 L ABG Oxyhemoglobin ABG Sodium ABG Potassium ABG Glucose 117 H Oxyhemoglobin Carboxyhemoglobin Sodium Potassium Chloride Carbon Dioxide BUN Creatinine Glucose POC Glucose 122 H 117 H Lactic Acid Calcium Phosphorus Magnesium AST ALT Troponin T C-Reactive Protein Total Protein Albumin Arterial Blood Glucose 117 H Arterial Blood Ionized Calcium 4.4 L Urine WBC (Auto) Urine Creatinine Valproic Acid 08/27/20 08/27/20 08/27/20 07:24 07:24 11:08 WBC 12.7 H RBC 2.92 L Hgb 8.1 L Hct 24.4 L MCH MCHC RDW 15.4 H Lymph % (Auto) 5.9 L Lymph # (Auto) 0.8 L Thomas # (Auto) Eos # (Auto) Seg Neutrophils % 86.9 H Seg Neuts % (Manual) Lymphocytes % (Manual) Seg Neutrophils # 11.0 H Seg Neutrophils # Man Lymphocytes # (Manual) D-Dimer ABG pH POC ABG pO2 ABG pO2 ABG HCO3 ABG Hemoglobin ABG Oxyhemoglobin ABG Sodium ABG Potassium ABG Glucose Oxyhemoglobin Carboxyhemoglobin Sodium Potassium Chloride Carbon Dioxide BUN 60 H Creatinine 3.6 H Glucose 135 H POC Glucose 139 H Lactic Acid Calcium Phosphorus Magnesium AST ALT Troponin T C-Reactive Protein Total Protein 5.3 L Albumin 2.6 L Arterial Blood Glucose Arterial Blood Ionized Calcium Urine WBC (Auto) Urine Creatinine Valproic Acid 08/27/20 08/27/20 08/27/20 11:19 17:31 23:25 WBC RBC Hgb Hct MCH MCHC RDW Lymph % (Auto) Lymph # (Auto) Thomas # (Auto) Eos # (Auto) Seg Neutrophils % Seg Neuts % (Manual) Lymphocytes % (Manual) Seg Neutrophils # Seg Neutrophils # Man Lymphocytes # (Manual) D-Dimer ABG pH POC ABG pO2 ABG pO2 ABG HCO3 ABG Hemoglobin ABG Oxyhemoglobin ABG Sodium ABG Potassium ABG Glucose Oxyhemoglobin Carboxyhemoglobin Sodium Potassium Chloride Carbon Dioxide BUN Creatinine Glucose POC Glucose 143 H 140 H 123 H Lactic Acid Calcium Phosphorus Magnesium AST ALT Troponin T C-Reactive Protein Total Protein Albumin Arterial Blood Glucose Arterial Blood Ionized Calcium Urine WBC (Auto) Urine Creatinine Valproic Acid 08/28/20 08/28/20 08/28/20 03:50 04:19 04:19 WBC RBC 2.80 L Hgb 7.8 L Hct 23.6 L MCH MCHC RDW 15.8 H Lymph % (Auto) Lymph # (Auto) Thomas # (Auto) Eos # (Auto) Seg Neutrophils % Seg Neuts % (Manual) Lymphocytes % (Manual) Seg Neutrophils # Seg Neutrophils # Man Lymphocytes # (Manual) D-Dimer ABG pH 7.329 L POC ABG pO2 ABG pO2 76.7 L ABG HCO3 27.0 H ABG Hemoglobin 7.5 L ABG Oxyhemoglobin ABG Sodium ABG Potassium ABG Glucose Oxyhemoglobin 93.6 L Carboxyhemoglobin Sodium 135 L Potassium Chloride Carbon Dioxide BUN 64 H Creatinine 3.8 H Glucose 143 H POC Glucose Lactic Acid Calcium 8.0 L Phosphorus Magnesium AST ALT Troponin T C-Reactive Protein Total Protein 4.8 L Albumin 2.4 L Arterial Blood Glucose Arterial Blood Ionized Calcium Urine WBC (Auto) Urine Creatinine Valproic Acid 08/28/20 08/28/20 08/28/20 05:35 11:22 17:18 WBC RBC Hgb Hct MCH MCHC RDW Lymph % (Auto) Lymph # (Auto) Thomas # (Auto) Eos # (Auto) Seg Neutrophils % Seg Neuts % (Manual) Lymphocytes % (Manual) Seg Neutrophils # Seg Neutrophils # Man Lymphocytes # (Manual) D-Dimer ABG pH POC ABG pO2 ABG pO2 ABG HCO3 ABG Hemoglobin ABG Oxyhemoglobin ABG Sodium ABG Potassium ABG Glucose Oxyhemoglobin Carboxyhemoglobin Sodium Potassium Chloride Carbon Dioxide BUN Creatinine Glucose POC Glucose 147 H 182 H 216 H Lactic Acid Calcium Phosphorus Magnesium AST ALT Troponin T C-Reactive Protein Total Protein Albumin Arterial Blood Glucose Arterial Blood Ionized Calcium Urine WBC (Auto) Urine Creatinine Valproic Acid 08/28/20 08/28/20 08/29/20 21:04 23:20 04:32 WBC RBC Hgb Hct MCH MCHC RDW Lymph % (Auto) Lymph # (Auto) Thomas # (Auto) Eos # (Auto) Seg Neutrophils % Seg Neuts % (Manual) Lymphocytes % (Manual) Seg Neutrophils # Seg Neutrophils # Man Lymphocytes # (Manual) D-Dimer ABG pH POC ABG pO2 ABG pO2 ABG HCO3 ABG Hemoglobin ABG Oxyhemoglobin ABG Sodium ABG Potassium ABG Glucose Oxyhemoglobin Carboxyhemoglobin Sodium 135 L Potassium Chloride 96.0 L Carbon Dioxide BUN 67 H Creatinine 3.8 H Glucose 200 H POC Glucose 204 H 242 H Lactic Acid Calcium 8.2 L Phosphorus Magnesium AST ALT Troponin T C-Reactive Protein Total Protein Albumin Arterial Blood Glucose Arterial Blood Ionized Calcium Urine WBC (Auto) Urine Creatinine Valproic Acid 08/29/20 08/29/20 08/29/20 04:32 04:50 04:59 WBC RBC 3.25 L Hgb 9.0 L Hct 27.0 L MCH MCHC RDW 16.1 H Lymph % (Auto) Lymph # (Auto) Thomas # (Auto) Eos # (Auto) Seg Neutrophils % Seg Neuts % (Manual) Lymphocytes % (Manual) Seg Neutrophils # Seg Neutrophils # Man Lymphocytes # (Manual) D-Dimer ABG pH POC ABG pO2 ABG pO2 ABG HCO3 ABG Hemoglobin 8.8 L ABG Oxyhemoglobin ABG Sodium ABG Potassium ABG Glucose Oxyhemoglobin Carboxyhemoglobin Sodium Potassium Chloride Carbon Dioxide BUN Creatinine Glucose POC Glucose 201 H Lactic Acid Calcium Phosphorus Magnesium AST ALT Troponin T C-Reactive Protein Total Protein Albumin Arterial Blood Glucose Arterial Blood Ionized Calcium Urine WBC (Auto) Urine Creatinine Valproic Acid 08/29/20 08/29/20 08/29/20 11:10 11:28 17:50 WBC RBC Hgb Hct MCH MCHC RDW Lymph % (Auto) Lymph # (Auto) Thomas # (Auto) Eos # (Auto) Seg Neutrophils % Seg Neuts % (Manual) Lymphocytes % (Manual) Seg Neutrophils # Seg Neutrophils # Man Lymphocytes # (Manual) D-Dimer ABG pH POC ABG pO2 ABG pO2 78.7 L ABG HCO3 26.6 H ABG Hemoglobin 9.8 L ABG Oxyhemoglobin ABG Sodium ABG Potassium ABG Glucose Oxyhemoglobin 94.3 L Carboxyhemoglobin Sodium Potassium Chloride Carbon Dioxide BUN Creatinine Glucose POC Glucose 219 H 203 H Lactic Acid Calcium Phosphorus Magnesium AST ALT Troponin T C-Reactive Protein Total Protein Albumin Arterial Blood Glucose Arterial Blood Ionized Calcium Urine WBC (Auto) Urine Creatinine Valproic Acid 08/29/20 08/29/20 08/30/20 21:31 23:28 04:14 WBC RBC Hgb Hct MCH MCHC RDW Lymph % (Auto) Lymph # (Auto) Thomas # (Auto) Eos # (Auto) Seg Neutrophils % Seg Neuts % (Manual) Lymphocytes % (Manual) Seg Neutrophils # Seg Neutrophils # Man Lymphocytes # (Manual) D-Dimer ABG pH POC ABG pO2 ABG pO2 ABG HCO3 ABG Hemoglobin ABG Oxyhemoglobin ABG Sodium ABG Potassium ABG Glucose Oxyhemoglobin Carboxyhemoglobin Sodium 132 L Potassium Chloride 94.8 L Carbon Dioxide BUN 68 H Creatinine 3.7 H Glucose 214 H POC Glucose 204 H 215 H Lactic Acid Calcium Phosphorus Magnesium AST ALT Troponin T C-Reactive Protein Total Protein Albumin Arterial Blood Glucose Arterial Blood Ionized Calcium Urine WBC (Auto) Urine Creatinine Valproic Acid 08/30/20 08/30/20 08/30/20 05:10 11:33 17:32 WBC RBC Hgb Hct MCH MCHC RDW Lymph % (Auto) Lymph # (Auto) Thomas # (Auto) Eos # (Auto) Seg Neutrophils % Seg Neuts % (Manual) Lymphocytes % (Manual) Seg Neutrophils # Seg Neutrophils # Man Lymphocytes # (Manual) D-Dimer ABG pH POC ABG pO2 ABG pO2 ABG HCO3 ABG Hemoglobin ABG Oxyhemoglobin ABG Sodium ABG Potassium ABG Glucose Oxyhemoglobin Carboxyhemoglobin Sodium Potassium Chloride Carbon Dioxide BUN Creatinine Glucose POC Glucose 210 H 194 H 202 H Lactic Acid Calcium Phosphorus Magnesium AST ALT Troponin T C-Reactive Protein Total Protein Albumin Arterial Blood Glucose Arterial Blood Ionized Calcium Urine WBC (Auto) Urine Creatinine Valproic Acid 08/30/20 08/30/20 08/30/20 21:39 23:21 Unknown WBC RBC Hgb Hct MCH MCHC RDW Lymph % (Auto) Lymph # (Auto) Thomas # (Auto) Eos # (Auto) Seg Neutrophils % Seg Neuts % (Manual) Lymphocytes % (Manual) Seg Neutrophils # Seg Neutrophils # Man Lymphocytes # (Manual) D-Dimer ABG pH POC ABG pO2 ABG pO2 99.0 H ABG HCO3 ABG Hemoglobin 9.8 L ABG Oxyhemoglobin ABG Sodium ABG Potassium ABG Glucose Oxyhemoglobin Carboxyhemoglobin Sodium Potassium Chloride Carbon Dioxide BUN Creatinine Glucose POC Glucose 199 H 209 H Lactic Acid Calcium Phosphorus Magnesium AST ALT Troponin T C-Reactive Protein Total Protein Albumin Arterial Blood Glucose Arterial Blood Ionized Calcium Urine WBC (Auto) Urine Creatinine Valproic Acid 08/31/20 08/31/20 08/31/20 04:10 05:19 10:57 WBC RBC Hgb Hct MCH MCHC RDW Lymph % (Auto) Lymph # (Auto) Thomas # (Auto) Eos # (Auto) Seg Neutrophils % Seg Neuts % (Manual) Lymphocytes % (Manual) Seg Neutrophils # Seg Neutrophils # Man Lymphocytes # (Manual) D-Dimer ABG pH 7.451 H POC ABG pO2 ABG pO2 99.6 H ABG HCO3 ABG Hemoglobin 8.4 L ABG Oxyhemoglobin ABG Sodium ABG Potassium ABG Glucose Oxyhemoglobin Carboxyhemoglobin Sodium 133 L Potassium Chloride 96.4 L Carbon Dioxide BUN 74 H Creatinine 3.8 H Glucose 201 H POC Glucose 182 H Lactic Acid Calcium 7.6 L Phosphorus Magnesium AST ALT Troponin T C-Reactive Protein Total Protein Albumin Arterial Blood Glucose Arterial Blood Ionized Calcium Urine WBC (Auto) Urine Creatinine Valproic Acid 08/31/20 08/31/20 08/31/20 10:57 12:32 17:15 WBC 11.4 H RBC 3.24 L Hgb 8.5 L Hct 26.6 L MCH 26 L MCHC RDW 15.6 H Lymph % (Auto) Lymph # (Auto) Thomas # (Auto) Eos # (Auto) Seg Neutrophils % Seg Neuts % (Manual) Lymphocytes % (Manual) Seg Neutrophils # Seg Neutrophils # Man Lymphocytes # (Manual) D-Dimer ABG pH POC ABG pO2 ABG pO2 ABG HCO3 ABG Hemoglobin ABG Oxyhemoglobin ABG Sodium ABG Potassium ABG Glucose Oxyhemoglobin Carboxyhemoglobin Sodium Potassium Chloride Carbon Dioxide BUN Creatinine Glucose POC Glucose 217 H 203 H Lactic Acid Calcium Phosphorus Magnesium AST ALT Troponin T C-Reactive Protein Total Protein Albumin Arterial Blood Glucose Arterial Blood Ionized Calcium Urine WBC (Auto) Urine Creatinine Valproic Acid 09/01/20 09/01/20 09/01/20 00:06 05:05 09:41 WBC RBC Hgb Hct MCH MCHC RDW Lymph % (Auto) Lymph # (Auto) Thomas # (Auto) Eos # (Auto) Seg Neutrophils % Seg Neuts % (Manual) Lymphocytes % (Manual) Seg Neutrophils # Seg Neutrophils # Man Lymphocytes # (Manual) D-Dimer ABG pH POC ABG pO2 ABG pO2 ABG HCO3 ABG Hemoglobin ABG Oxyhemoglobin ABG Sodium ABG Potassium ABG Glucose Oxyhemoglobin Carboxyhemoglobin Sodium 134 L Potassium Chloride 95.2 L Carbon Dioxide BUN 81 H Creatinine 3.7 H Glucose 201 H POC Glucose 223 H 225 H Lactic Acid Calcium Phosphorus 4.60 H Magnesium 2.40 H AST ALT Troponin T C-Reactive Protein Total Protein Albumin Arterial Blood Glucose Arterial Blood Ionized Calcium Urine WBC (Auto) Urine Creatinine Valproic Acid 09/01/20 09/01/20 09/01/20 09:41 12:51 13:08 WBC 11.5 H RBC 3.58 L Hgb 9.2 L Hct 29.7 L MCH 26 L MCHC RDW 16.0 H Lymph % (Auto) Lymph # (Auto) Thomas # (Auto) Eos # (Auto) Seg Neutrophils % Seg Neuts % (Manual) Lymphocytes % (Manual) Seg Neutrophils # Seg Neutrophils # Man Lymphocytes # (Manual) D-Dimer ABG pH 7.462 H POC ABG pO2 ABG pO2 ABG HCO3 ABG Hemoglobin 9.5 L ABG Oxyhemoglobin ABG Sodium 130.4 L ABG Potassium ABG Glucose 208 H Oxyhemoglobin Carboxyhemoglobin 0.4 L Sodium Potassium Chloride Carbon Dioxide BUN Creatinine Glucose POC Glucose 182 H Lactic Acid Calcium Phosphorus Magnesium AST ALT Troponin T C-Reactive Protein Total Protein Albumin Arterial Blood Glucose 208 H Arterial Blood Ionized Calcium 4.5 L Urine WBC (Auto) Urine Creatinine Valproic Acid 09/01/20 09/01/20 09/02/20 18:34 23:14 05:22 WBC RBC Hgb Hct MCH MCHC RDW Lymph % (Auto) Lymph # (Auto) Thomas # (Auto) Eos # (Auto) Seg Neutrophils % Seg Neuts % (Manual) Lymphocytes % (Manual) Seg Neutrophils # Seg Neutrophils # Man Lymphocytes # (Manual) D-Dimer ABG pH POC ABG pO2 ABG pO2 ABG HCO3 ABG Hemoglobin ABG Oxyhemoglobin ABG Sodium ABG Potassium ABG Glucose Oxyhemoglobin Carboxyhemoglobin Sodium Potassium Chloride Carbon Dioxide BUN Creatinine Glucose POC Glucose 183 H 181 H 178 H Lactic Acid Calcium Phosphorus Magnesium AST ALT Troponin T C-Reactive Protein Total Protein Albumin Arterial Blood Glucose Arterial Blood Ionized Calcium Urine WBC (Auto) Urine Creatinine Valproic Acid 09/02/20 09/02/20 09/02/20 07:35 11:16 17:39 WBC RBC Hgb Hct MCH MCHC RDW Lymph % (Auto) Lymph # (Auto) Thomas # (Auto) Eos # (Auto) Seg Neutrophils % Seg Neuts % (Manual) Lymphocytes % (Manual) Seg Neutrophils # Seg Neutrophils # Man Lymphocytes # (Manual) D-Dimer ABG pH POC ABG pO2 ABG pO2 ABG HCO3 ABG Hemoglobin ABG Oxyhemoglobin ABG Sodium ABG Potassium ABG Glucose Oxyhemoglobin Carboxyhemoglobin Sodium 135 L Potassium Chloride 96.0 L Carbon Dioxide BUN 88 H Creatinine 3.7 H Glucose 187 H POC Glucose 228 H 165 H Lactic Acid Calcium Phosphorus Magnesium AST ALT Troponin T C-Reactive Protein Total Protein Albumin Arterial Blood Glucose Arterial Blood Ionized Calcium Urine WBC (Auto) Urine Creatinine Valproic Acid 09/02/20 09/03/20 09/03/20 23:24 05:35 08:31 WBC 18.5 H RBC 2.80 L Hgb 7.8 L Hct 22.7 L D MCH MCHC 35 H RDW 15.3 H Lymph % (Auto) Lymph # (Auto) Thomas # (Auto) Eos # (Auto) Seg Neutrophils % Seg Neuts % (Manual) Lymphocytes % (Manual) Seg Neutrophils # Seg Neutrophils # Man Lymphocytes # (Manual) D-Dimer ABG pH POC ABG pO2 ABG pO2 ABG HCO3 ABG Hemoglobin ABG Oxyhemoglobin ABG Sodium ABG Potassium ABG Glucose Oxyhemoglobin Carboxyhemoglobin Sodium Potassium Chloride Carbon Dioxide BUN Creatinine Glucose POC Glucose 167 H 180 H Lactic Acid Calcium Phosphorus Magnesium AST ALT Troponin T C-Reactive Protein Total Protein Albumin Arterial Blood Glucose Arterial Blood Ionized Calcium Urine WBC (Auto) Urine Creatinine Valproic Acid 09/03/20 09/03/20 09/03/20 08:31 12:02 17:05 WBC RBC Hgb Hct MCH MCHC RDW Lymph % (Auto) Lymph # (Auto) Thomas # (Auto) Eos # (Auto) Seg Neutrophils % Seg Neuts % (Manual) Lymphocytes % (Manual) Seg Neutrophils # Seg Neutrophils # Man Lymphocytes # (Manual) D-Dimer ABG pH POC ABG pO2 ABG pO2 ABG HCO3 ABG Hemoglobin ABG Oxyhemoglobin ABG Sodium ABG Potassium ABG Glucose Oxyhemoglobin Carboxyhemoglobin Sodium 134 L Potassium Chloride 96.6 L Carbon Dioxide BUN 96 H Creatinine 3.7 H Glucose 190 H POC Glucose 156 H 150 H Lactic Acid Calcium 8.1 L Phosphorus Magnesium AST ALT Troponin T C-Reactive Protein Total Protein Albumin Arterial Blood Glucose Arterial Blood Ionized Calcium Urine WBC (Auto) Urine Creatinine Valproic Acid 09/03/20 09/04/20 09/04/20 23:31 05:23 09:49 WBC RBC Hgb Hct MCH MCHC RDW Lymph % (Auto) Lymph # (Auto) Thomas # (Auto) Eos # (Auto) Seg Neutrophils % Seg Neuts % (Manual) Lymphocytes % (Manual) Seg Neutrophils # Seg Neutrophils # Man Lymphocytes # (Manual) D-Dimer ABG pH POC ABG pO2 ABG pO2 ABG HCO3 ABG Hemoglobin ABG Oxyhemoglobin ABG Sodium ABG Potassium ABG Glucose Oxyhemoglobin Carboxyhemoglobin Sodium Potassium Chloride 97.9 L Carbon Dioxide BUN 98 H Creatinine 4.0 H Glucose 171 H POC Glucose 143 H 165 H Lactic Acid Calcium Phosphorus Magnesium AST ALT Troponin T C-Reactive Protein Total Protein Albumin Arterial Blood Glucose Arterial Blood Ionized Calcium Urine WBC (Auto) Urine Creatinine Valproic Acid 09/04/20 09/04/20 09/04/20 12:05 17:46 21:25 WBC RBC Hgb Hct MCH MCHC RDW Lymph % (Auto) Lymph # (Auto) Thomas # (Auto) Eos # (Auto) Seg Neutrophils % Seg Neuts % (Manual) Lymphocytes % (Manual) Seg Neutrophils # Seg Neutrophils # Man Lymphocytes # (Manual) D-Dimer ABG pH POC ABG pO2 ABG pO2 ABG HCO3 ABG Hemoglobin ABG Oxyhemoglobin ABG Sodium ABG Potassium ABG Glucose Oxyhemoglobin Carboxyhemoglobin Sodium Potassium Chloride Carbon Dioxide BUN Creatinine Glucose POC Glucose 200 H 184 H 177 H Lactic Acid Calcium Phosphorus Magnesium AST ALT Troponin T C-Reactive Protein Total Protein Albumin Arterial Blood Glucose Arterial Blood Ionized Calcium Urine WBC (Auto) Urine Creatinine Valproic Acid 09/05/20 09/05/20 09/05/20 00:06 04:34 08:40 WBC RBC Hgb Hct MCH MCHC RDW Lymph % (Auto) Lymph # (Auto) Thomas # (Auto) Eos # (Auto) Seg Neutrophils % Seg Neuts % (Manual) Lymphocytes % (Manual) Seg Neutrophils # Seg Neutrophils # Man Lymphocytes # (Manual) D-Dimer ABG pH POC ABG pO2 ABG pO2 ABG HCO3 ABG Hemoglobin ABG Oxyhemoglobin ABG Sodium ABG Potassium ABG Glucose Oxyhemoglobin Carboxyhemoglobin Sodium 133 L Potassium Chloride 92.5 L Carbon Dioxide BUN 99 H Creatinine 3.6 H Glucose 167 H POC Glucose 198 H 189 H Lactic Acid Calcium Phosphorus Magnesium AST ALT Troponin T C-Reactive Protein Total Protein Albumin Arterial Blood Glucose Arterial Blood Ionized Calcium Urine WBC (Auto) Urine Creatinine Valproic Acid 09/05/20 09/05/20 09/05/20 11:28 17:54 23:28 WBC RBC Hgb Hct MCH MCHC RDW Lymph % (Auto) Lymph # (Auto) Thomas # (Auto) Eos # (Auto) Seg Neutrophils % Seg Neuts % (Manual) Lymphocytes % (Manual) Seg Neutrophils # Seg Neutrophils # Man Lymphocytes # (Manual) D-Dimer ABG pH POC ABG pO2 ABG pO2 ABG HCO3 ABG Hemoglobin ABG Oxyhemoglobin ABG Sodium ABG Potassium ABG Glucose Oxyhemoglobin Carboxyhemoglobin Sodium Potassium Chloride Carbon Dioxide BUN Creatinine Glucose POC Glucose 171 H 169 H 163 H Lactic Acid Calcium Phosphorus Magnesium AST ALT Troponin T C-Reactive Protein Total Protein Albumin Arterial Blood Glucose Arterial Blood Ionized Calcium Urine WBC (Auto) Urine Creatinine Valproic Acid 09/06/20 09/06/20 09/06/20 05:17 11:55 18:07 WBC RBC Hgb Hct MCH MCHC RDW Lymph % (Auto) Lymph # (Auto) Thomas # (Auto) Eos # (Auto) Seg Neutrophils % Seg Neuts % (Manual) Lymphocytes % (Manual) Seg Neutrophils # Seg Neutrophils # Man Lymphocytes # (Manual) D-Dimer ABG pH POC ABG pO2 ABG pO2 ABG HCO3 ABG Hemoglobin ABG Oxyhemoglobin ABG Sodium ABG Potassium ABG Glucose Oxyhemoglobin Carboxyhemoglobin Sodium Potassium Chloride Carbon Dioxide BUN Creatinine Glucose POC Glucose 151 H 175 H 182 H Lactic Acid Calcium Phosphorus Magnesium AST ALT Troponin T C-Reactive Protein Total Protein Albumin Arterial Blood Glucose Arterial Blood Ionized Calcium Urine WBC (Auto) Urine Creatinine Valproic Acid 09/06/20 09/06/20 09/06/20 23:19 Unknown Unknown WBC 17.3 H RBC 3.25 L Hgb 8.7 L Hct 26.2 L MCH 27 L MCHC RDW 15.6 H Lymph % (Auto) 4.4 L Lymph # (Auto) 0.8 L Thomas # (Auto) Eos # (Auto) Seg Neutrophils % 89.5 H Seg Neuts % (Manual) Lymphocytes % (Manual) Seg Neutrophils # 15.5 H Seg Neutrophils # Man Lymphocytes # (Manual) D-Dimer ABG pH POC ABG pO2 ABG pO2 ABG HCO3 ABG Hemoglobin ABG Oxyhemoglobin ABG Sodium ABG Potassium ABG Glucose Oxyhemoglobin Carboxyhemoglobin Sodium 132 L Potassium Chloride 91.9 L Carbon Dioxide BUN 104 H Creatinine 3.8 H Glucose 177 H POC Glucose 160 H Lactic Acid Calcium Phosphorus Magnesium 2.60 H AST ALT Troponin T C-Reactive Protein Total Protein Albumin Arterial Blood Glucose Arterial Blood Ionized Calcium Urine WBC (Auto) Urine Creatinine Valproic Acid 09/07/20 09/07/20 09/07/20 04:00 05:36 12:09 WBC RBC Hgb Hct MCH MCHC RDW Lymph % (Auto) Lymph # (Auto) Thomas # (Auto) Eos # (Auto) Seg Neutrophils % Seg Neuts % (Manual) Lymphocytes % (Manual) Seg Neutrophils # Seg Neutrophils # Man Lymphocytes # (Manual) D-Dimer ABG pH POC ABG pO2 ABG pO2 ABG HCO3 ABG Hemoglobin ABG Oxyhemoglobin ABG Sodium ABG Potassium ABG Glucose Oxyhemoglobin Carboxyhemoglobin Sodium Potassium Chloride 95.6 L Carbon Dioxide BUN 108 H Creatinine 3.9 H Glucose 129 H POC Glucose 151 H 172 H Lactic Acid Calcium Phosphorus Magnesium AST ALT Troponin T C-Reactive Protein Total Protein Albumin Arterial Blood Glucose Arterial Blood Ionized Calcium Urine WBC (Auto) Urine Creatinine Valproic Acid 09/07/20 09/07/20 09/07/20 15:28 18:00 21:21 WBC RBC Hgb Hct MCH MCHC RDW Lymph % (Auto) Lymph # (Auto) Thomas # (Auto) Eos # (Auto) Seg Neutrophils % Seg Neuts % (Manual) Lymphocytes % (Manual) Seg Neutrophils # Seg Neutrophils # Man Lymphocytes # (Manual) D-Dimer ABG pH POC ABG pO2 ABG pO2 ABG HCO3 ABG Hemoglobin ABG Oxyhemoglobin ABG Sodium ABG Potassium ABG Glucose Oxyhemoglobin Carboxyhemoglobin Sodium Potassium Chloride Carbon Dioxide BUN Creatinine Glucose POC Glucose 153 H 112 H Lactic Acid Calcium Phosphorus Magnesium AST ALT Troponin T C-Reactive Protein Total Protein Albumin Arterial Blood Glucose Arterial Blood Ionized Calcium Urine WBC (Auto) Urine Creatinine Valproic Acid 42.9 L 09/07/20 09/07/20 09/08/20 23:09 Unknown 05:08 WBC 13.6 H RBC 3.14 L Hgb 8.1 L Hct 25.2 L MCH 26 L MCHC RDW 15.5 H Lymph % (Auto) 6.0 L Lymph # (Auto) 0.8 L Thomas # (Auto) Eos # (Auto) 0.5 H Seg Neutrophils % 85.5 H Seg Neuts % (Manual) Lymphocytes % (Manual) Seg Neutrophils # 11.6 H Seg Neutrophils # Man Lymphocytes # (Manual) D-Dimer ABG pH POC ABG pO2 ABG pO2 ABG HCO3 ABG Hemoglobin ABG Oxyhemoglobin ABG Sodium ABG Potassium ABG Glucose Oxyhemoglobin Carboxyhemoglobin Sodium Potassium Chloride Carbon Dioxide BUN Creatinine Glucose POC Glucose 149 H 125 H Lactic Acid Calcium Phosphorus Magnesium AST ALT Troponin T C-Reactive Protein Total Protein Albumin Arterial Blood Glucose Arterial Blood Ionized Calcium Urine WBC (Auto) Urine Creatinine Valproic Acid 09/08/20 09/08/20 09/09/20 06:00 23:25 04:55 WBC RBC Hgb Hct MCH MCHC RDW Lymph % (Auto) Lymph # (Auto) Thomas # (Auto) Eos # (Auto) Seg Neutrophils % Seg Neuts % (Manual) Lymphocytes % (Manual) Seg Neutrophils # Seg Neutrophils # Man Lymphocytes # (Manual) D-Dimer ABG pH POC ABG pO2 ABG pO2 ABG HCO3 ABG Hemoglobin ABG Oxyhemoglobin ABG Sodium ABG Potassium ABG Glucose Oxyhemoglobin Carboxyhemoglobin Sodium 135 L Potassium Chloride 94.0 L 97.8 L Carbon Dioxide BUN 110 H 113 H Creatinine 3.7 H 3.7 H Glucose 127 H 156 H POC Glucose 135 H Lactic Acid Calcium 7.8 L Phosphorus Magnesium AST ALT Troponin T C-Reactive Protein Total Protein Albumin Arterial Blood Glucose Arterial Blood Ionized Calcium Urine WBC (Auto) Urine Creatinine Valproic Acid 09/09/20 09/09/20 09/09/20 05:10 11:39 11:50 WBC RBC Hgb Hct MCH MCHC RDW Lymph % (Auto) Lymph # (Auto) Thomas # (Auto) Eos # (Auto) Seg Neutrophils % Seg Neuts % (Manual) Lymphocytes % (Manual) Seg Neutrophils # Seg Neutrophils # Man Lymphocytes # (Manual) D-Dimer ABG pH POC ABG pO2 ABG pO2 ABG HCO3 ABG Hemoglobin 6.3 L ABG Oxyhemoglobin ABG Sodium ABG Potassium ABG Glucose Oxyhemoglobin Carboxyhemoglobin Sodium Potassium Chloride Carbon Dioxide BUN Creatinine Glucose POC Glucose 177 H 127 H Lactic Acid Calcium Phosphorus Magnesium AST ALT Troponin T C-Reactive Protein Total Protein Albumin Arterial Blood Glucose Arterial Blood Ionized Calcium Urine WBC (Auto) Urine Creatinine Valproic Acid 09/09/20 09/09/20 09/09/20 12:23 17:37 23:15 WBC 14.8 H RBC 2.69 L Hgb 7.1 L Hct 22.7 L MCH 26 L MCHC RDW 15.5 H Lymph % (Auto) 2.9 L Lymph # (Auto) 0.4 L Thomas # (Auto) 1.0 H Eos # (Auto) 0.5 H Seg Neutrophils % 86.8 H Seg Neuts % (Manual) Lymphocytes % (Manual) Seg Neutrophils # 12.8 H Seg Neutrophils # Man Lymphocytes # (Manual) D-Dimer ABG pH POC ABG pO2 ABG pO2 ABG HCO3 ABG Hemoglobin ABG Oxyhemoglobin ABG Sodium ABG Potassium ABG Glucose Oxyhemoglobin Carboxyhemoglobin Sodium Potassium Chloride Carbon Dioxide BUN Creatinine Glucose POC Glucose 138 H 157 H Lactic Acid Calcium Phosphorus Magnesium AST ALT Troponin T C-Reactive Protein Total Protein Albumin Arterial Blood Glucose Arterial Blood Ionized Calcium Urine WBC (Auto) Urine Creatinine Valproic Acid 09/10/20 09/10/20 09/10/20 03:19 05:17 06:50 WBC RBC Hgb Hct MCH MCHC RDW Lymph % (Auto) Lymph # (Auto) Thomas # (Auto) Eos # (Auto) Seg Neutrophils % Seg Neuts % (Manual) Lymphocytes % (Manual) Seg Neutrophils # Seg Neutrophils # Man Lymphocytes # (Manual) D-Dimer ABG pH POC ABG pO2 ABG pO2 ABG HCO3 ABG Hemoglobin 8.4 L ABG Oxyhemoglobin ABG Sodium 130.4 L ABG Potassium 3.3 L ABG Glucose 158 H Oxyhemoglobin Carboxyhemoglobin Sodium Potassium 3.5 L Chloride Carbon Dioxide BUN 111 H Creatinine 3.5 H Glucose 133 H POC Glucose 137 H Lactic Acid Calcium Phosphorus Magnesium AST ALT Troponin T C-Reactive Protein Total Protein Albumin Arterial Blood Glucose 158 H Arterial Blood Ionized Calcium 4.5 L Urine WBC (Auto) Urine Creatinine Valproic Acid 09/10/20 06:50 WBC 12.7 H RBC 2.78 L Hgb 7.1 L Hct 22.3 L MCH 26 L MCHC RDW 15.6 H Lymph % (Auto) 4.0 L Lymph # (Auto) 0.5 L Thomas # (Auto) Eos # (Auto) 0.5 H Seg Neutrophils % 86.4 H Seg Neuts % (Manual) Lymphocytes % (Manual) Seg Neutrophils # 11.0 H Seg Neutrophils # Man Lymphocytes # (Manual) D-Dimer ABG pH POC ABG pO2 ABG pO2 ABG HCO3 ABG Hemoglobin ABG Oxyhemoglobin ABG Sodium ABG Potassium ABG Glucose Oxyhemoglobin Carboxyhemoglobin Sodium Potassium Chloride Carbon Dioxide BUN Creatinine Glucose POC Glucose Lactic Acid Calcium Phosphorus Magnesium AST ALT Troponin T C-Reactive Protein Total Protein Albumin Arterial Blood Glucose Arterial Blood Ionized Calcium Urine WBC (Auto) Urine Creatinine Valproic Acid
--- NOTE | 2020-09-10 10:45 | Progress Note ---
Assessment and Plan 1. Acute kidney injury: Vasomotor FLORIDALMA superimposed on CKD stage 4 in the setting Cardiac arrest. Low FeNa. CT abdomen negative for hydro. Monitor renal function. Creatinine level around 3.6. Remain non-oliguric. Renal prognosis is guarded. Avoid nephrotoxic agents. Meds dosage based on GFR. 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 2. FEN: Hypokalemia, replete K. Metabolic acidosis, improved. Monitor lytes. 3. Acute respiratory failure with hypoxia: 2/2 b/p pneumonia. Covid test negative. Intubated, on vent. Followed by Pulmonary. 4. S/p OOH Cardiac arrest: Prolonged downtime. Followed by Cards. 5. Bladder retention: Pt has Foreman catheter now. 6. Diabetes mellitus type 2: Follow blood glucose. 7. Bradycardia: Was on Dopamine. Monitor. 8. Hypertension: Monitor BP. 9. Anemia, POA: Monitor. 10. Anoxic encephalopathy: Seen by Neuro. Family is aware of slim / poor prognosis. 11. Facial twitching: Vimpat. D/w Son at the bedside (09/09) and he is going to talk to other family members about withdrawing care. Subjective: Patient was seen and examined at the bedside. Examination: General appearance: well-developed, well-nourished, appears stated age, in tubated, on vent HEENT: ATNC, pupils not reacting to light Neck: supple Respiratory: coarse breath sounds Cardiology: regular, S1S2, no murmur Gastrointestinal: soft, bowel sounds heard, not tender Integumentary: no rash, warm and dry Neurologic: not responding Ext: no edema : foreman catheter Subjective Date of service: 09/10/20 Principal diagnosis: Ac. hypoxemic resp failure; Cardiac arrest; AMS; AE-CHF; Hyperkalemia; FLORIDALMA Objective - Vital Signs Vital signs: Vital Signs - 12hr 09/09/20 09/09/20 09/09/20 23:01 23:36 23:43 Temperature 98.5 F Pulse Rate 71 70 Pulse Rate [ From Monitor] Respiratory 20 21 Rate Blood Pressure 106/46 115/49 O2 Sat by Pulse 99 Oximetry 09/10/20 09/10/20 09/10/20 00:00 00:01 00:09 Temperature Pulse Rate 72 71 69 Pulse Rate [ 72 From Monitor] Respiratory 19 Rate Blood Pressure 115/49 O2 Sat by Pulse 98 90 99 Oximetry 09/10/20 09/10/20 09/10/20 01:01 02:01 03:01 Temperature Pulse Rate 71 72 70 Pulse Rate [ From Monitor] Respiratory 21 21 Rate Blood Pressure 120/56 76/47 76/47 O2 Sat by Pulse 98 Oximetry 09/10/20 09/10/20 09/10/20 04:00 04:01 04:36 Temperature 98.8 F Pulse Rate 124 H 68 68 Pulse Rate [ From Monitor] Respiratory 22 Rate Blood Pressure 141/54 130/53 O2 Sat by Pulse 98 99 Oximetry 09/10/20 09/10/20 09/10/20 04:49 05:01 06:01 Temperature Pulse Rate 65 66 Pulse Rate [ 69 From Monitor] Respiratory 15 18 Rate Blood Pressure 130/51 134/56 O2 Sat by Pulse 98 97 Oximetry 09/10/20 09/10/20 09/10/20 07:01 07:35 07:36 Temperature 98.3 F Pulse Rate 70 70 Pulse Rate [ From Monitor] Respiratory 21 Rate Blood Pressure 148/66 156/61 O2 Sat by Pulse 100 100 Oximetry 09/10/20 09/10/20 09/10/20 08:00 08:01 09:01 Temperature 98.3 F Pulse Rate 70 70 69 Pulse Rate [ 70 From Monitor] Respiratory 22 21 Rate Blood Pressure 154/61 148/58 O2 Sat by Pulse 98 99 100 Oximetry 09/10/20 10:01 Temperature Pulse Rate 72 Pulse Rate [ From Monitor] Respiratory 22 Rate Blood Pressure 166/70 O2 Sat by Pulse Oximetry - Lab 09/10/20 06:50 09/10/20 06:50 Most recent lab results ABG pH 7.447 (7.320-7.450) 09/10/20 03:19 ABG pCO2 38.1 mm Hg 09/09/20 11:50 ABG pO2 87.6 mm Hg (80.0-90.0) 09/09/20 11:50 ABG HCO3 22.7 mmol/L (20.0-26.0) 09/09/20 11:50 ABG O2 Saturation 97.5 (0-100) 09/10/20 03:19 Calcium 8.4 mg/dL (8.4-10.2) 09/10/20 06:50 Phosphorus 4.60 mg/dL (2.5-4.5) H 09/01/20 09:41 Magnesium 2.60 mg/dL (1.7-2.3) H 09/06/20 Unknown Urine Creatinine 67.4 mg/dL (0.1-20.0) H 08/26/20 17:00 Urine Sodium 12 mmol/L 08/26/20 17:00 Medications & Allergies - Medications Allergies/Adverse Reactions: Allergies No Known Allergies Allergy (Verified 07/31/18 07:06) Home Medications: Home Medications Medication Instructions Recorded Confirmed Last Taken Type Albuterol Mdi (or & Nicu Only) 2 puff IH QID PRN #1 inhalation 08/07/18 09/06/20 Unknown Rx [ProAir HFA Inhaler] Sucralfate [Carafate] 1 gm PO ACHS #30 tablet 08/07/18 09/06/20 03/13/20 Rx Insulin Regular, Human [HumuLIN R] 0 unit SQ AC #1 vial 08/11/18 09/06/20 Unknown Rx Labetalol HCl [Labetalol 300mg TAB] 300 mg PO BID #60 tablet 11/11/19 09/06/20 03/14/20 Rx Furosemide [Lasix TAB] 80 mg PO DAILY #14 tablet 03/27/20 09/06/20 Unknown Rx Insulin Glargine [Lantus VIAL] 15 units SUB-Q QAM #1 vial 03/27/20 09/06/20 Unknown Rx amLODIPine 10 mg PO QDAY #30 tablet 03/27/20 09/06/20 Unknown Rx Levemir Flextouch 10 units SUB-Q DAILY 09/06/20 09/06/20 Unknown History Levothyroxine 75 mg PO DAILY 09/06/20 09/06/20 Unknown History Active Medications: Generic Name Dose Route Start Last Admin Trade Name Freq PRN Reason Stop Dose Admin Albuterol 2.5 mg 08/25/20 14:55 Albuterol 2.5 Mg/3 Ml Nebu IH Q3HRT PRN Shortness Of Breath Lipase/Protease/Amylase 1 each 08/26/20 12:15 Lipase 10,500/Protease 25,000/Amylase 43,750 (Units) Dr Gu FEEDTUBE PRN PRN For Clogged Feeding Tube Aspirin 81 mg 08/27/20 10:00 09/10/20 09:48 Aspirin 81 Mg Tab Chew PO 81 mg QDAY TERA Administration Atorvastatin Calcium 40 mg 08/26/20 22:00 09/09/20 21:21 Atorvastatin 40 Mg Tab PO 40 mg QHS TERA Administration Atropine Sulfate 0.5 mg 09/05/20 13:09 09/05/20 13:44 Atropine 0.1% (1 Mg/10 Ml) Cardiac Syringe IV 0.5 mg Q5MIN PRN Administration Bradycardia Dextrose 50 ml 08/26/20 19:18 Dextrose 50% In Water (25gm) 50 Ml Syringe IV Q30MIN PRN Hypoglycemia Protocol Famotidine 20 mg 08/28/20 10:00 09/10/20 09:48 Famotidine 20 Mg Tab PO 20 mg DAILY TERA Administration Heparin Sodium (Porcine) 5,000 unit 08/26/20 22:00 09/10/20 09:48 Heparin 5,000 Unit/1 Ml Vial SUB-Q 5,000 unit Q12HR TERA Administration Hydralazine HCl 10 mg 08/26/20 01:20 09/04/20 11:06 Hydralazine 20 Mg/1 Ml Inj IV 10 mg Q4HR PRN Administration Blood Pressure Hydrophilic Ointment 1 applic 08/25/20 11:07 08/25/20 11:57 Lip Therapy Vaseline TP 1 applic Q2HR PRN Administration Dry Lips Lacosamide 200 mg/ Sodium 120 mls @ 100 mls/hr 09/04/20 11:00 09/10/20 02:40 Chloride IV 100 mls/hr Q12H TERA Administration Levetiracetam 500 mg/ Dextrose 105 mls @ 400 mls/hr 09/04/20 11:00 09/10/20 09:48 IV 400 mls/hr Q12HR TERA Administration Valproate Sodium 750 mg/ 107.5 mls @ 100 mls/hr 09/05/20 14:00 09/10/20 06:50 Sodium Chloride IV 100 mls/hr Q8HR TERA Administration Dopamine HCl/Dextrose 800 mg in 250 mls @ 3.563 mls/hr 09/05/20 15:00 09/09/20 07:30 Intropin Drip 800 Mg/D5w 250 Ml IV 0 mcg/kg/min TITR TERA 0 mls/hr Titration Protocol 2 MCG/KG/MIN Midazolam HCl 100 mg/ Sodium 100 mls @ 1 mls/hr 09/06/20 14:00 09/09/20 10:30 Chloride IV 0 mg/hr TITR TERA 0 mls/hr Titration Protocol 1 MG/HR Insulin Glargine 25 units 09/01/20 22:00 09/09/20 17:37 Insulin Glargine 100 Units/Ml SUB-Q 25 units QHS TERA Administration Insulin Human Lispro 0 unit 08/27/20 12:00 09/10/20 06:39 Insulin Lispro 100 Unit/Ml SUB-Q Not Given Q6HR TERA Protocol Levothyroxine Sodium 75 mcg 09/10/20 09:00 09/10/20 09:50 Levothyroxine 75 Mcg Tab PO 75 mcg DAILY@0600 TERA Administration Lorazepam 2 mg 09/03/20 15:12 09/05/20 13:41 Lorazepam 2 Mg/Ml Vial IV 2 mg Q1H PRN Administration Seizures Multi-Ingred Cream/Lotion/Oil/Oint 1 applic 08/25/20 11:07 Mineral Oil/Petrolatum, White Ophth Oint 3.5 Gm OU Q4HR PRN Dry Eye(s) Potassium Chloride 40 meq 09/10/20 09:00 09/10/20 09:48 Potassium Chloride Er 20 Meq Tab PO 09/10/20 13:00 40 meq ONCE TERA Administration Senna/Docusate Sodium 1 tab 08/25/20 22:00 09/10/20 09:48 Sennosides/Docusate Sodium 8.6/50 Mg Tab FEEDTUBE 1 tab BID TERA Administration Simple Syrup 15 ml 08/26/20 12:15 Simple Syrup 15 Ml FEEDTUBE PRN PRN Hypoglycemia Simple Syrup 30 ml 08/26/20 12:15 Simple Syrup 15 Ml FEEDTUBE PRN PRN Hypoglycemia Sodium Bicarbonate 325 mg 08/26/20 12:15 Sodium Bicarbonate 325 Mg Tab FEEDTUBE PRN PRN For Clogged Feeding Tube Sodium Chloride 10 ml 08/25/20 22:00 09/10/20 09:49 Sodium Chloride 0.9% 10 Ml Flush Syringe IV 10 ml BID TERA Administration Sodium Chloride 10 ml 08/25/20 14:55 08/29/20 04:05 Sodium Chloride 0.9% 10 Ml Flush Syringe IV 10 ml PRN PRN Administration LINE FLUSH Tamsulosin HCl 0.8 mg 09/06/20 10:00 09/10/20 09:48 Tamsulosin 0.4 Mg Cap PO 0.8 mg QDAY TERA Administration
--- NOTE | 2020-09-10 11:11 | Progress Note ---
Assessment and Plan Acute hypoxemic respiratory failure Cardiac arrest with ROSC Acute encephalopathy Multifocal pneumonia Possible bilateral pulmonary edema Congestive heart failure with an acute exacerbation Anemia Hyperkalemia Lactic acidosis Acute kidney injury Elevated serum transaminases Non-ST elevation MD Oropharyngeal dysphagia -continue with AEDs, continue to monitor for seizures while off Midazolam -Off Dopamine, blood pressures are better, continue to monitor hemodynamics closely -Monitor tongue swelling, -Continue to monitor off antibiotics for now. Trend temperature curve and WCC -Per discussion with CM, family discussions re goals of care are ongoing. Patient is DNAR in the event of a cardiopulmonary arrest. Will reach out to the daughter who is listed as POA for further clarification. In the interim continue all care - continue to titrate supplemental oxygen for target sPO2 89-92% - VAP bundle addressed - continue lung protective strategies - continue bronchodilators with pulmonary hygiene per RT - continue Daily SAT and SBT assessment as tolerated - continue accuchecks with glycemic control per SSI (while critically ill target blood glucose of 140-180 mg/dL; avoid hypoglycemia) - avoid nephrotoxins, renally dose all medications - continue to avoid benzodiazepines, reduce the possibility of delirium - enteric nutritional support at goal rate as tolerated -Stress ulcer and VTE prophylaxis - PT/OT/ROM exercises - continue mobility, off loading and frequent turning per facility protocol for pressure ulcer prevention - continue to monitor hemodynamics closely - continue other care per attending / other consultants COVID SPECIFIC INTERVENTIONS - COVID-19 PCR negative CONDITION: CRITICAL PROGNOSIS: GUARDED CODE STATUS: DNAR The high probability of a clinically significant, sudden or life-threatening deterioration of the [respiratory, cardiovascular & neurologic] system(s) required my full and direct attention, intervention and personal management. The aggregate critical care time was [33] minutes without overlap. Time includes spent on; [x] Data Review and interpretation [x] Patient assessment and monitoring of vital signs [x] Documentation [x] Medication orders and management Subjective Date of service: 09/10/20 Principal diagnosis: Ac. hypoxemic resp failure; Cardiac arrest; AMS; AE-CHF; Hyperkalemia; FLORIDALMA Interval history: Patient is seen today for: Acute hypoxemic respiratory failure; Cardiac arrest with ROSC; Acute encephalopathy; Multifocal pneumonia; pulmonary edema; AE-CHF; Hyperkalemia; FLORIDALMA; NSTEMI Seen and examined at bedside; 24hour events reviewed; nursing and respiratory care staff consulted; no adverse overnight events reported to me; resting in bed; remains on MVS; AMS is persistent; afebrile; no emesis or overt aspiration and no seizures Off Dopamine , she has a Christina catheter in for urinary retention No further episodes of seizure like activity( orofacial twitching)-remains on Depakote, Vimpat and Keppra Off Midazolam Objective Vital Signs - 12hr 09/09/20 09/09/20 09/10/20 23:36 23:43 00:00 Temperature 98.5 F Pulse Rate 70 72 Pulse Rate [ 72 From Monitor] Respiratory 21 Rate Blood Pressure 115/49 O2 Sat by Pulse 99 98 Oximetry 09/10/20 09/10/20 09/10/20 00:01 00:09 01:01 Temperature Pulse Rate 71 69 71 Pulse Rate [ From Monitor] Respiratory 19 21 Rate Blood Pressure 115/49 120/56 O2 Sat by Pulse 90 99 Oximetry 09/10/20 09/10/20 09/10/20 02:01 03:01 04:00 Temperature 98.8 F Pulse Rate 72 70 124 H Pulse Rate [ From Monitor] Respiratory 21 21 Rate Blood Pressure 76/47 76/47 O2 Sat by Pulse 98 Oximetry 09/10/20 09/10/20 09/10/20 04:01 04:36 04:49 Temperature Pulse Rate 68 68 Pulse Rate [ 69 From Monitor] Respiratory 22 Rate Blood Pressure 141/54 130/53 O2 Sat by Pulse 98 99 98 Oximetry 09/10/20 09/10/20 09/10/20 05:01 06:01 07:01 Temperature Pulse Rate 65 66 70 Pulse Rate [ From Monitor] Respiratory 15 18 21 Rate Blood Pressure 130/51 134/56 148/66 O2 Sat by Pulse 97 100 Oximetry 09/10/20 09/10/20 09/10/20 07:35 07:36 08:00 Temperature 98.3 F 98.3 F Pulse Rate 70 70 Pulse Rate [ 70 From Monitor] Respiratory Rate Blood Pressure 156/61 O2 Sat by Pulse 100 98 Oximetry 09/10/20 09/10/20 09/10/20 08:01 09:01 10:01 Temperature Pulse Rate 70 69 72 Pulse Rate [ From Monitor] Respiratory 22 21 22 Rate Blood Pressure 154/61 148/58 166/70 O2 Sat by Pulse 99 100 Oximetry Constitutional: no acute distress, other (elderly obese female with no patient ventilator dyssynchrony) Eyes: non-icteric ENT: oropharynx moist, oropharyngeal exudate pre (clear, frothy), other (ETT 24 cm DIMAS, large tongue- apparently had seizure like activity) Neck: supple, no lymphadenopathy, no JVD Effort: mildly labored Ascultation: Bilateral: diminished breath sounds (bases), rhonchi (scant) Percussion: Bilateral: not dull Cardiovascular: regular rate and rhythm, other (S1,S2) Gastrointestinal: normoactive bowel sounds Integumentary: normal Extremities: no cyanosis, no edema, pulses normal, no ischemia or petechiae Neurologic: pupils equal and round, unable to assess, other (facial and whole body seizures + bitting tongue) Psychiatric: other (unable to assess re: AMS) CBC and BMP: 09/10/20 06:50 09/11/20 04:30 ABG, PT/INR, D-dimer: ABG ABG pH 7.447 (7.320-7.450) 09/10/20 03:19 POC ABG pCO2 33.5 mmHg (32.0-48.0) 09/10/20 03:19 ABG pCO2 38.1 mm Hg 09/09/20 11:50 POC ABG pO2 97.5 mmHg (83-108) 09/10/20 03:19 ABG pO2 87.6 mm Hg (80.0-90.0) 09/09/20 11:50 POC ABG HCO3 22.6 09/10/20 03:19 ABG O2 Saturation 97.5 (0-100) 09/10/20 03:19 PT/INR, D-dimer D-Dimer > 79810 ng/mlDDU (0-234) H 08/25/20 11:23 Abnormal lab findings: Abnormal Labs 08/25/20 08/25/20 08/25/20 11:14 11:17 11:23 WBC 11.5 H RBC 3.22 L Hgb 8.6 L Hct 27.6 L MCH 27 L MCHC RDW 15.6 H Lymph % (Auto) Lymph # (Auto) [place] # (Auto) Eos # (Auto) Seg Neutrophils % Seg Neuts % (Manual) 89.0 H Lymphocytes % (Manual) 5.0 L Seg Neutrophils # Seg Neutrophils # Man 10.2 H Lymphocytes # (Manual) 0.6 L D-Dimer ABG pH 7.290 L POC ABG pO2 161.1 H ABG pO2 ABG HCO3 ABG Hemoglobin 8.9 L ABG Oxyhemoglobin 98.6 H ABG Sodium 135.2 L ABG Potassium 5.9 H ABG Glucose 210 H Oxyhemoglobin Carboxyhemoglobin 0.4 L Sodium Potassium Chloride Carbon Dioxide BUN Creatinine Glucose POC Glucose Lactic Acid Calcium Phosphorus Magnesium AST ALT Troponin T C-Reactive Protein Total Protein Albumin Arterial Blood Glucose 210 H Arterial Blood Ionized Calcium 4.4 L Urine WBC (Auto) 31.0 H Urine Creatinine Valproic Acid 08/25/20 08/25/20 08/25/20 11:23 11:23 11:23 WBC RBC Hgb Hct MCH MCHC RDW Lymph % (Auto) Lymph # (Auto) [place] # (Auto) Eos # (Auto) Seg Neutrophils % Seg Neuts % (Manual) Lymphocytes % (Manual) Seg Neutrophils # Seg Neutrophils # Man Lymphocytes # (Manual) D-Dimer > 97284 H ABG pH POC ABG pO2 ABG pO2 ABG HCO3 ABG Hemoglobin ABG Oxyhemoglobin ABG Sodium ABG Potassium ABG Glucose Oxyhemoglobin Carboxyhemoglobin Sodium Potassium 6.4 H* Chloride Carbon Dioxide 21 L BUN 52 H Creatinine 3.5 H Glucose 194 H POC Glucose Lactic Acid 3.30 H* Calcium 8.1 L Phosphorus Magnesium AST 103 H ALT 77 H Troponin T 0.057 H C-Reactive Protein Total Protein 5.8 L Albumin 3.4 L Arterial Blood Glucose Arterial Blood Ionized Calcium Urine WBC (Auto) Urine Creatinine Valproic Acid 08/25/20 08/25/20 08/25/20 13:51 15:45 20:34 WBC RBC Hgb Hct MCH MCHC RDW Lymph % (Auto) Lymph # (Auto) [place] # (Auto) Eos # (Auto) Seg Neutrophils % Seg Neuts % (Manual) Lymphocytes % (Manual) Seg Neutrophils # Seg Neutrophils # Man Lymphocytes # (Manual) D-Dimer ABG pH POC ABG pO2 66.3 L ABG pO2 ABG HCO3 ABG Hemoglobin 9.1 L ABG Oxyhemoglobin 92.5 L ABG Sodium ABG Potassium ABG Glucose 225 H Oxyhemoglobin Carboxyhemoglobin Sodium Potassium Chloride Carbon Dioxide BUN Creatinine Glucose POC Glucose 188 H 233 H Lactic Acid Calcium Phosphorus Magnesium AST ALT Troponin T C-Reactive Protein Total Protein Albumin Arterial Blood Glucose 225 H Arterial Blood Ionized Calcium 4.4 L Urine WBC (Auto) Urine Creatinine Valproic Acid 08/26/20 08/26/20 08/26/20 04:14 05:04 05:04 WBC 17.9 H RBC 3.05 L Hgb 8.3 L Hct 25.6 L MCH 27 L MCHC RDW 15.3 H Lymph % (Auto) Lymph # (Auto) [place] # (Auto) Eos # (Auto) Seg Neutrophils % Seg Neuts % (Manual) 96.0 H Lymphocytes % (Manual) 1.0 L Seg Neutrophils # Seg Neutrophils # Man 17.2 H Lymphocytes # (Manual) 0.2 L D-Dimer ABG pH POC ABG pO2 131.3 H ABG pO2 ABG HCO3 ABG Hemoglobin 8.6 L ABG Oxyhemoglobin 98.2 H ABG Sodium ABG Potassium ABG Glucose 182 H Oxyhemoglobin Carboxyhemoglobin 0.2 L Sodium Potassium Chloride Carbon Dioxide BUN 56 H Creatinine 3.4 H Glucose 187 H POC Glucose Lactic Acid Calcium 8.3 L Phosphorus Magnesium AST 54 H ALT 57 H Troponin T C-Reactive Protein Total Protein 5.4 L Albumin 2.9 L Arterial Blood Glucose 182 H Arterial Blood Ionized Calcium 4.3 L Urine WBC (Auto) Urine Creatinine Valproic Acid 08/26/20 08/26/20 08/26/20 05:40 07:36 11:54 WBC RBC Hgb Hct MCH MCHC RDW Lymph % (Auto) Lymph # (Auto) [place] # (Auto) Eos # (Auto) Seg Neutrophils % Seg Neuts % (Manual) Lymphocytes % (Manual) Seg Neutrophils # Seg Neutrophils # Man Lymphocytes # (Manual) D-Dimer ABG pH POC ABG pO2 ABG pO2 ABG HCO3 ABG Hemoglobin ABG Oxyhemoglobin ABG Sodium ABG Potassium ABG Glucose Oxyhemoglobin Carboxyhemoglobin Sodium Potassium Chloride Carbon Dioxide BUN Creatinine Glucose POC Glucose 179 H 171 H 190 H Lactic Acid Calcium Phosphorus Magnesium AST ALT Troponin T C-Reactive Protein Total Protein Albumin Arterial Blood Glucose Arterial Blood Ionized Calcium Urine WBC (Auto) Urine Creatinine Valproic Acid 08/26/20 08/26/20 08/26/20 15:14 17:00 18:50 WBC RBC Hgb Hct MCH MCHC RDW Lymph % (Auto) Lymph # (Auto) [place] # (Auto) Eos # (Auto) Seg Neutrophils % Seg Neuts % (Manual) Lymphocytes % (Manual) Seg Neutrophils # Seg Neutrophils # Man Lymphocytes # (Manual) D-Dimer ABG pH POC ABG pO2 ABG pO2 ABG HCO3 ABG Hemoglobin ABG Oxyhemoglobin ABG Sodium ABG Potassium ABG Glucose Oxyhemoglobin Carboxyhemoglobin Sodium Potassium Chloride Carbon Dioxide BUN Creatinine Glucose POC Glucose 158 H Lactic Acid Calcium Phosphorus Magnesium AST ALT Troponin T C-Reactive Protein 7.80 H Total Protein Albumin Arterial Blood Glucose Arterial Blood Ionized Calcium Urine WBC (Auto) Urine Creatinine 67.4 H Valproic Acid 08/26/20 08/27/20 08/27/20 22:01 04:10 05:12 WBC RBC Hgb Hct MCH MCHC RDW Lymph % (Auto) Lymph # (Auto) [place] # (Auto) Eos # (Auto) Seg Neutrophils % Seg Neuts % (Manual) Lymphocytes % (Manual) Seg Neutrophils # Seg Neutrophils # Man Lymphocytes # (Manual) D-Dimer ABG pH 7.454 H POC ABG pO2 74.9 L ABG pO2 ABG HCO3 ABG Hemoglobin 7.9 L ABG Oxyhemoglobin ABG Sodium ABG Potassium ABG Glucose 117 H Oxyhemoglobin Carboxyhemoglobin Sodium Potassium Chloride Carbon Dioxide BUN Creatinine Glucose POC Glucose 122 H 117 H Lactic Acid Calcium Phosphorus Magnesium AST ALT Troponin T C-Reactive Protein Total Protein Albumin Arterial Blood Glucose 117 H Arterial Blood Ionized Calcium 4.4 L Urine WBC (Auto) Urine Creatinine Valproic Acid 08/27/20 08/27/20 08/27/20 07:24 07:24 11:08 WBC 12.7 H RBC 2.92 L Hgb 8.1 L Hct 24.4 L MCH MCHC RDW 15.4 H Lymph % (Auto) 5.9 L Lymph # (Auto) 0.8 L [place] # (Auto) Eos # (Auto) Seg Neutrophils % 86.9 H Seg Neuts % (Manual) Lymphocytes % (Manual) Seg Neutrophils # 11.0 H Seg Neutrophils # Man Lymphocytes # (Manual) D-Dimer ABG pH POC ABG pO2 ABG pO2 ABG HCO3 ABG Hemoglobin ABG Oxyhemoglobin ABG Sodium ABG Potassium ABG Glucose Oxyhemoglobin Carboxyhemoglobin Sodium Potassium Chloride Carbon Dioxide BUN 60 H Creatinine 3.6 H Glucose 135 H POC Glucose 139 H Lactic Acid Calcium Phosphorus Magnesium AST ALT Troponin T C-Reactive Protein Total Protein 5.3 L Albumin 2.6 L Arterial Blood Glucose Arterial Blood Ionized Calcium Urine WBC (Auto) Urine Creatinine Valproic Acid 08/27/20 08/27/20 08/27/20 11:19 17:31 23:25 WBC RBC Hgb Hct MCH MCHC RDW Lymph % (Auto) Lymph # (Auto) [place] # (Auto) Eos # (Auto) Seg Neutrophils % Seg Neuts % (Manual) Lymphocytes % (Manual) Seg Neutrophils # Seg Neutrophils # Man Lymphocytes # (Manual) D-Dimer ABG pH POC ABG pO2 ABG pO2 ABG HCO3 ABG Hemoglobin ABG Oxyhemoglobin ABG Sodium ABG Potassium ABG Glucose Oxyhemoglobin Carboxyhemoglobin Sodium Potassium Chloride Carbon Dioxide BUN Creatinine Glucose POC Glucose 143 H 140 H 123 H Lactic Acid Calcium Phosphorus Magnesium AST ALT Troponin T C-Reactive Protein Total Protein Albumin Arterial Blood Glucose Arterial Blood Ionized Calcium Urine WBC (Auto) Urine Creatinine Valproic Acid 08/28/20 08/28/20 08/28/20 03:50 04:19 04:19 WBC RBC 2.80 L Hgb 7.8 L Hct 23.6 L MCH MCHC RDW 15.8 H Lymph % (Auto) Lymph # (Auto) [place] # (Auto) Eos # (Auto) Seg Neutrophils % Seg Neuts % (Manual) Lymphocytes % (Manual) Seg Neutrophils # Seg Neutrophils # Man Lymphocytes # (Manual) D-Dimer ABG pH 7.329 L POC ABG pO2 ABG pO2 76.7 L ABG HCO3 27.0 H ABG Hemoglobin 7.5 L ABG Oxyhemoglobin ABG Sodium ABG Potassium ABG Glucose Oxyhemoglobin 93.6 L Carboxyhemoglobin Sodium 135 L Potassium Chloride Carbon Dioxide BUN 64 H Creatinine 3.8 H Glucose 143 H POC Glucose Lactic Acid Calcium 8.0 L Phosphorus Magnesium AST ALT Troponin T C-Reactive Protein Total Protein 4.8 L Albumin 2.4 L Arterial Blood Glucose Arterial Blood Ionized Calcium Urine WBC (Auto) Urine Creatinine Valproic Acid 08/28/20 08/28/20 08/28/20 05:35 11:22 17:18 WBC RBC Hgb Hct MCH MCHC RDW Lymph % (Auto) Lymph # (Auto) [place] # (Auto) Eos # (Auto) Seg Neutrophils % Seg Neuts % (Manual) Lymphocytes % (Manual) Seg Neutrophils # Seg Neutrophils # Man Lymphocytes # (Manual) D-Dimer ABG pH POC ABG pO2 ABG pO2 ABG HCO3 ABG Hemoglobin ABG Oxyhemoglobin ABG Sodium ABG Potassium ABG Glucose Oxyhemoglobin Carboxyhemoglobin Sodium Potassium Chloride Carbon Dioxide BUN Creatinine Glucose POC Glucose 147 H 182 H 216 H Lactic Acid Calcium Phosphorus Magnesium AST ALT Troponin T C-Reactive Protein Total Protein Albumin Arterial Blood Glucose Arterial Blood Ionized Calcium Urine WBC (Auto) Urine Creatinine Valproic Acid 08/28/20 08/28/20 08/29/20 21:04 23:20 04:32 WBC RBC Hgb Hct MCH MCHC RDW Lymph % (Auto) Lymph # (Auto) [place] # (Auto) Eos # (Auto) Seg Neutrophils % Seg Neuts % (Manual) Lymphocytes % (Manual) Seg Neutrophils # Seg Neutrophils # Man Lymphocytes # (Manual) D-Dimer ABG pH POC ABG pO2 ABG pO2 ABG HCO3 ABG Hemoglobin ABG Oxyhemoglobin ABG Sodium ABG Potassium ABG Glucose Oxyhemoglobin Carboxyhemoglobin Sodium 135 L Potassium Chloride 96.0 L Carbon Dioxide BUN 67 H Creatinine 3.8 H Glucose 200 H POC Glucose 204 H 242 H Lactic Acid Calcium 8.2 L Phosphorus Magnesium AST ALT Troponin T C-Reactive Protein Total Protein Albumin Arterial Blood Glucose Arterial Blood Ionized Calcium Urine WBC (Auto) Urine Creatinine Valproic Acid 08/29/20 08/29/20 08/29/20 04:32 04:50 04:59 WBC RBC 3.25 L Hgb 9.0 L Hct 27.0 L MCH MCHC RDW 16.1 H Lymph % (Auto) Lymph # (Auto) [place] # (Auto) Eos # (Auto) Seg Neutrophils % Seg Neuts % (Manual) Lymphocytes % (Manual) Seg Neutrophils # Seg Neutrophils # Man Lymphocytes # (Manual) D-Dimer ABG pH POC ABG pO2 ABG pO2 ABG HCO3 ABG Hemoglobin 8.8 L ABG Oxyhemoglobin ABG Sodium ABG Potassium ABG Glucose Oxyhemoglobin Carboxyhemoglobin Sodium Potassium Chloride Carbon Dioxide BUN Creatinine Glucose POC Glucose 201 H Lactic Acid Calcium Phosphorus Magnesium AST ALT Troponin T C-Reactive Protein Total Protein Albumin Arterial Blood Glucose Arterial Blood Ionized Calcium Urine WBC (Auto) Urine Creatinine Valproic Acid 08/29/20 08/29/20 08/29/20 11:10 11:28 17:50 WBC RBC Hgb Hct MCH MCHC RDW Lymph % (Auto) Lymph # (Auto) [place] # (Auto) Eos # (Auto) Seg Neutrophils % Seg Neuts % (Manual) Lymphocytes % (Manual) Seg Neutrophils # Seg Neutrophils # Man Lymphocytes # (Manual) D-Dimer ABG pH POC ABG pO2 ABG pO2 78.7 L ABG HCO3 26.6 H ABG Hemoglobin 9.8 L ABG Oxyhemoglobin ABG Sodium ABG Potassium ABG Glucose Oxyhemoglobin 94.3 L Carboxyhemoglobin Sodium Potassium Chloride Carbon Dioxide BUN Creatinine Glucose POC Glucose 219 H 203 H Lactic Acid Calcium Phosphorus Magnesium AST ALT Troponin T C-Reactive Protein Total Protein Albumin Arterial Blood Glucose Arterial Blood Ionized Calcium Urine WBC (Auto) Urine Creatinine Valproic Acid 08/29/20 08/29/20 08/30/20 21:31 23:28 04:14 WBC RBC Hgb Hct MCH MCHC RDW Lymph % (Auto) Lymph # (Auto) [place] # (Auto) Eos # (Auto) Seg Neutrophils % Seg Neuts % (Manual) Lymphocytes % (Manual) Seg Neutrophils # Seg Neutrophils # Man Lymphocytes # (Manual) D-Dimer ABG pH POC ABG pO2 ABG pO2 ABG HCO3 ABG Hemoglobin ABG Oxyhemoglobin ABG Sodium ABG Potassium ABG Glucose Oxyhemoglobin Carboxyhemoglobin Sodium 132 L Potassium Chloride 94.8 L Carbon Dioxide BUN 68 H Creatinine 3.7 H Glucose 214 H POC Glucose 204 H 215 H Lactic Acid Calcium Phosphorus Magnesium AST ALT Troponin T C-Reactive Protein Total Protein Albumin Arterial Blood Glucose Arterial Blood Ionized Calcium Urine WBC (Auto) Urine Creatinine Valproic Acid 08/30/20 08/30/20 08/30/20 05:10 11:33 17:32 WBC RBC Hgb Hct MCH MCHC RDW Lymph % (Auto) Lymph # (Auto) [place] # (Auto) Eos # (Auto) Seg Neutrophils % Seg Neuts % (Manual) Lymphocytes % (Manual) Seg Neutrophils # Seg Neutrophils # Man Lymphocytes # (Manual) D-Dimer ABG pH POC ABG pO2 ABG pO2 ABG HCO3 ABG Hemoglobin ABG Oxyhemoglobin ABG Sodium ABG Potassium ABG Glucose Oxyhemoglobin Carboxyhemoglobin Sodium Potassium Chloride Carbon Dioxide BUN Creatinine Glucose POC Glucose 210 H 194 H 202 H Lactic Acid Calcium Phosphorus Magnesium AST ALT Troponin T C-Reactive Protein Total Protein Albumin Arterial Blood Glucose Arterial Blood Ionized Calcium Urine WBC (Auto) Urine Creatinine Valproic Acid 08/30/20 08/30/20 08/30/20 21:39 23:21 Unknown WBC RBC Hgb Hct MCH MCHC RDW Lymph % (Auto) Lymph # (Auto) [place] # (Auto) Eos # (Auto) Seg Neutrophils % Seg Neuts % (Manual) Lymphocytes % (Manual) Seg Neutrophils # Seg Neutrophils # Man Lymphocytes # (Manual) D-Dimer ABG pH POC ABG pO2 ABG pO2 99.0 H ABG HCO3 ABG Hemoglobin 9.8 L ABG Oxyhemoglobin ABG Sodium ABG Potassium ABG Glucose Oxyhemoglobin Carboxyhemoglobin Sodium Potassium Chloride Carbon Dioxide BUN Creatinine Glucose POC Glucose 199 H 209 H Lactic Acid Calcium Phosphorus Magnesium AST ALT Troponin T C-Reactive Protein Total Protein Albumin Arterial Blood Glucose Arterial Blood Ionized Calcium Urine WBC (Auto) Urine Creatinine Valproic Acid 08/31/20 08/31/20 08/31/20 04:10 05:19 10:57 WBC RBC Hgb Hct MCH MCHC RDW Lymph % (Auto) Lymph # (Auto) [place] # (Auto) Eos # (Auto) Seg Neutrophils % Seg Neuts % (Manual) Lymphocytes % (Manual) Seg Neutrophils # Seg Neutrophils # Man Lymphocytes # (Manual) D-Dimer ABG pH 7.451 H POC ABG pO2 ABG pO2 99.6 H ABG HCO3 ABG Hemoglobin 8.4 L ABG Oxyhemoglobin ABG Sodium ABG Potassium ABG Glucose Oxyhemoglobin Carboxyhemoglobin Sodium 133 L Potassium Chloride 96.4 L Carbon Dioxide BUN 74 H Creatinine 3.8 H Glucose 201 H POC Glucose 182 H Lactic Acid Calcium 7.6 L Phosphorus Magnesium AST ALT Troponin T C-Reactive Protein Total Protein Albumin Arterial Blood Glucose Arterial Blood Ionized Calcium Urine WBC (Auto) Urine Creatinine Valproic Acid 08/31/20 08/31/20 08/31/20 10:57 12:32 17:15 WBC 11.4 H RBC 3.24 L Hgb 8.5 L Hct 26.6 L MCH 26 L MCHC RDW 15.6 H Lymph % (Auto) Lymph # (Auto) [place] # (Auto) Eos # (Auto) Seg Neutrophils % Seg Neuts % (Manual) Lymphocytes % (Manual) Seg Neutrophils # Seg Neutrophils # Man Lymphocytes # (Manual) D-Dimer ABG pH POC ABG pO2 ABG pO2 ABG HCO3 ABG Hemoglobin ABG Oxyhemoglobin ABG Sodium ABG Potassium ABG Glucose Oxyhemoglobin Carboxyhemoglobin Sodium Potassium Chloride Carbon Dioxide BUN Creatinine Glucose POC Glucose 217 H 203 H Lactic Acid Calcium Phosphorus Magnesium AST ALT Troponin T C-Reactive Protein Total Protein Albumin Arterial Blood Glucose Arterial Blood Ionized Calcium Urine WBC (Auto) Urine Creatinine Valproic Acid 09/01/20 09/01/20 09/01/20 00:06 05:05 09:41 WBC RBC Hgb Hct MCH MCHC RDW Lymph % (Auto) Lymph # (Auto) [place] # (Auto) Eos # (Auto) Seg Neutrophils % Seg Neuts % (Manual) Lymphocytes % (Manual) Seg Neutrophils # Seg Neutrophils # Man Lymphocytes # (Manual) D-Dimer ABG pH POC ABG pO2 ABG pO2 ABG HCO3 ABG Hemoglobin ABG Oxyhemoglobin ABG Sodium ABG Potassium ABG Glucose Oxyhemoglobin Carboxyhemoglobin Sodium 134 L Potassium Chloride 95.2 L Carbon Dioxide BUN 81 H Creatinine 3.7 H Glucose 201 H POC Glucose 223 H 225 H Lactic Acid Calcium Phosphorus 4.60 H Magnesium 2.40 H AST ALT Troponin T C-Reactive Protein Total Protein Albumin Arterial Blood Glucose Arterial Blood Ionized Calcium Urine WBC (Auto) Urine Creatinine Valproic Acid 09/01/20 09/01/20 09/01/20 09:41 12:51 13:08 WBC 11.5 H RBC 3.58 L Hgb 9.2 L Hct 29.7 L MCH 26 L MCHC RDW 16.0 H Lymph % (Auto) Lymph # (Auto) [place] # (Auto) Eos # (Auto) Seg Neutrophils % Seg Neuts % (Manual) Lymphocytes % (Manual) Seg Neutrophils # Seg Neutrophils # Man Lymphocytes # (Manual) D-Dimer ABG pH 7.462 H POC ABG pO2 ABG pO2 ABG HCO3 ABG Hemoglobin 9.5 L ABG Oxyhemoglobin ABG Sodium 130.4 L ABG Potassium ABG Glucose 208 H Oxyhemoglobin Carboxyhemoglobin 0.4 L Sodium Potassium Chloride Carbon Dioxide BUN Creatinine Glucose POC Glucose 182 H Lactic Acid Calcium Phosphorus Magnesium AST ALT Troponin T C-Reactive Protein Total Protein Albumin Arterial Blood Glucose 208 H Arterial Blood Ionized Calcium 4.5 L Urine WBC (Auto) Urine Creatinine Valproic Acid 09/01/20 09/01/20 09/02/20 18:34 23:14 05:22 WBC RBC Hgb Hct MCH MCHC RDW Lymph % (Auto) Lymph # (Auto) [place] # (Auto) Eos # (Auto) Seg Neutrophils % Seg Neuts % (Manual) Lymphocytes % (Manual) Seg Neutrophils # Seg Neutrophils # Man Lymphocytes # (Manual) D-Dimer ABG pH POC ABG pO2 ABG pO2 ABG HCO3 ABG Hemoglobin ABG Oxyhemoglobin ABG Sodium ABG Potassium ABG Glucose Oxyhemoglobin Carboxyhemoglobin Sodium Potassium Chloride Carbon Dioxide BUN Creatinine Glucose POC Glucose 183 H 181 H 178 H Lactic Acid Calcium Phosphorus Magnesium AST ALT Troponin T C-Reactive Protein Total Protein Albumin Arterial Blood Glucose Arterial Blood Ionized Calcium Urine WBC (Auto) Urine Creatinine Valproic Acid 09/02/20 09/02/20 09/02/20 07:35 11:16 17:39 WBC RBC Hgb Hct MCH MCHC RDW Lymph % (Auto) Lymph # (Auto) [place] # (Auto) Eos # (Auto) Seg Neutrophils % Seg Neuts % (Manual) Lymphocytes % (Manual) Seg Neutrophils # Seg Neutrophils # Man Lymphocytes # (Manual) D-Dimer ABG pH POC ABG pO2 ABG pO2 ABG HCO3 ABG Hemoglobin ABG Oxyhemoglobin ABG Sodium ABG Potassium ABG Glucose Oxyhemoglobin Carboxyhemoglobin Sodium 135 L Potassium Chloride 96.0 L Carbon Dioxide BUN 88 H Creatinine 3.7 H Glucose 187 H POC Glucose 228 H 165 H Lactic Acid Calcium Phosphorus Magnesium AST ALT Troponin T C-Reactive Protein Total Protein Albumin Arterial Blood Glucose Arterial Blood Ionized Calcium Urine WBC (Auto) Urine Creatinine Valproic Acid 09/02/20 09/03/20 09/03/20 23:24 05:35 08:31 WBC 18.5 H RBC 2.80 L Hgb 7.8 L Hct 22.7 L D MCH MCHC 35 H RDW 15.3 H Lymph % (Auto) Lymph # (Auto) [place] # (Auto) Eos # (Auto) Seg Neutrophils % Seg Neuts % (Manual) Lymphocytes % (Manual) Seg Neutrophils # Seg Neutrophils # Man Lymphocytes # (Manual) D-Dimer ABG pH POC ABG pO2 ABG pO2 ABG HCO3 ABG Hemoglobin ABG Oxyhemoglobin ABG Sodium ABG Potassium ABG Glucose Oxyhemoglobin Carboxyhemoglobin Sodium Potassium Chloride Carbon Dioxide BUN Creatinine Glucose POC Glucose 167 H 180 H Lactic Acid Calcium Phosphorus Magnesium AST ALT Troponin T C-Reactive Protein Total Protein Albumin Arterial Blood Glucose Arterial Blood Ionized Calcium Urine WBC (Auto) Urine Creatinine Valproic Acid 09/03/20 09/03/20 09/03/20 08:31 12:02 17:05 WBC RBC Hgb Hct MCH MCHC RDW Lymph % (Auto) Lymph # (Auto) [place] # (Auto) Eos # (Auto) Seg Neutrophils % Seg Neuts % (Manual) Lymphocytes % (Manual) Seg Neutrophils # Seg Neutrophils # Man Lymphocytes # (Manual) D-Dimer ABG pH POC ABG pO2 ABG pO2 ABG HCO3 ABG Hemoglobin ABG Oxyhemoglobin ABG Sodium ABG Potassium ABG Glucose Oxyhemoglobin Carboxyhemoglobin Sodium 134 L Potassium Chloride 96.6 L Carbon Dioxide BUN 96 H Creatinine 3.7 H Glucose 190 H POC Glucose 156 H 150 H Lactic Acid Calcium 8.1 L Phosphorus Magnesium AST ALT Troponin T C-Reactive Protein Total Protein Albumin Arterial Blood Glucose Arterial Blood Ionized Calcium Urine WBC (Auto) Urine Creatinine Valproic Acid 09/03/20 09/04/20 09/04/20 23:31 05:23 09:49 WBC RBC Hgb Hct MCH MCHC RDW Lymph % (Auto) Lymph # (Auto) Island # (Auto) Eos # (Auto) Seg Neutrophils % Seg Neuts % (Manual) Lymphocytes % (Manual) Seg Neutrophils # Seg Neutrophils # Man Lymphocytes # (Manual) D-Dimer ABG pH POC ABG pO2 ABG pO2 ABG HCO3 ABG Hemoglobin ABG Oxyhemoglobin ABG Sodium ABG Potassium ABG Glucose Oxyhemoglobin Carboxyhemoglobin Sodium Potassium Chloride 97.9 L Carbon Dioxide BUN 98 H Creatinine 4.0 H Glucose 171 H POC Glucose 143 H 165 H Lactic Acid Calcium Phosphorus Magnesium AST ALT Troponin T C-Reactive Protein Total Protein Albumin Arterial Blood Glucose Arterial Blood Ionized Calcium Urine WBC (Auto) Urine Creatinine Valproic Acid 09/04/20 09/04/20 09/04/20 12:05 17:46 21:25 WBC RBC Hgb Hct MCH MCHC RDW Lymph % (Auto) Lymph # (Auto) Island # (Auto) Eos # (Auto) Seg Neutrophils % Seg Neuts % (Manual) Lymphocytes % (Manual) Seg Neutrophils # Seg Neutrophils # Man Lymphocytes # (Manual) D-Dimer ABG pH POC ABG pO2 ABG pO2 ABG HCO3 ABG Hemoglobin ABG Oxyhemoglobin ABG Sodium ABG Potassium ABG Glucose Oxyhemoglobin Carboxyhemoglobin Sodium Potassium Chloride Carbon Dioxide BUN Creatinine Glucose POC Glucose 200 H 184 H 177 H Lactic Acid Calcium Phosphorus Magnesium AST ALT Troponin T C-Reactive Protein Total Protein Albumin Arterial Blood Glucose Arterial Blood Ionized Calcium Urine WBC (Auto) Urine Creatinine Valproic Acid 09/05/20 09/05/20 09/05/20 00:06 04:34 08:40 WBC RBC Hgb Hct MCH MCHC RDW Lymph % (Auto) Lymph # (Auto) Island # (Auto) Eos # (Auto) Seg Neutrophils % Seg Neuts % (Manual) Lymphocytes % (Manual) Seg Neutrophils # Seg Neutrophils # Man Lymphocytes # (Manual) D-Dimer ABG pH POC ABG pO2 ABG pO2 ABG HCO3 ABG Hemoglobin ABG Oxyhemoglobin ABG Sodium ABG Potassium ABG Glucose Oxyhemoglobin Carboxyhemoglobin Sodium 133 L Potassium Chloride 92.5 L Carbon Dioxide BUN 99 H Creatinine 3.6 H Glucose 167 H POC Glucose 198 H 189 H Lactic Acid Calcium Phosphorus Magnesium AST ALT Troponin T C-Reactive Protein Total Protein Albumin Arterial Blood Glucose Arterial Blood Ionized Calcium Urine WBC (Auto) Urine Creatinine Valproic Acid 09/05/20 09/05/20 09/05/20 11:28 17:54 23:28 WBC RBC Hgb Hct MCH MCHC RDW Lymph % (Auto) Lymph # (Auto) Island # (Auto) Eos # (Auto) Seg Neutrophils % Seg Neuts % (Manual) Lymphocytes % (Manual) Seg Neutrophils # Seg Neutrophils # Man Lymphocytes # (Manual) D-Dimer ABG pH POC ABG pO2 ABG pO2 ABG HCO3 ABG Hemoglobin ABG Oxyhemoglobin ABG Sodium ABG Potassium ABG Glucose Oxyhemoglobin Carboxyhemoglobin Sodium Potassium Chloride Carbon Dioxide BUN Creatinine Glucose POC Glucose 171 H 169 H 163 H Lactic Acid Calcium Phosphorus Magnesium AST ALT Troponin T C-Reactive Protein Total Protein Albumin Arterial Blood Glucose Arterial Blood Ionized Calcium Urine WBC (Auto) Urine Creatinine Valproic Acid 09/06/20 09/06/20 09/06/20 05:17 11:55 18:07 WBC RBC Hgb Hct MCH MCHC RDW Lymph % (Auto) Lymph # (Auto) Island # (Auto) Eos # (Auto) Seg Neutrophils % Seg Neuts % (Manual) Lymphocytes % (Manual) Seg Neutrophils # Seg Neutrophils # Man Lymphocytes # (Manual) D-Dimer ABG pH POC ABG pO2 ABG pO2 ABG HCO3 ABG Hemoglobin ABG Oxyhemoglobin ABG Sodium ABG Potassium ABG Glucose Oxyhemoglobin Carboxyhemoglobin Sodium Potassium Chloride Carbon Dioxide BUN Creatinine Glucose POC Glucose 151 H 175 H 182 H Lactic Acid Calcium Phosphorus Magnesium AST ALT Troponin T C-Reactive Protein Total Protein Albumin Arterial Blood Glucose Arterial Blood Ionized Calcium Urine WBC (Auto) Urine Creatinine Valproic Acid 09/06/20 09/06/20 09/06/20 23:19 Unknown Unknown WBC 17.3 H RBC 3.25 L Hgb 8.7 L Hct 26.2 L MCH 27 L MCHC RDW 15.6 H Lymph % (Auto) 4.4 L Lymph # (Auto) 0.8 L Island # (Auto) Eos # (Auto) Seg Neutrophils % 89.5 H Seg Neuts % (Manual) Lymphocytes % (Manual) Seg Neutrophils # 15.5 H Seg Neutrophils # Man Lymphocytes # (Manual) D-Dimer ABG pH POC ABG pO2 ABG pO2 ABG HCO3 ABG Hemoglobin ABG Oxyhemoglobin ABG Sodium ABG Potassium ABG Glucose Oxyhemoglobin Carboxyhemoglobin Sodium 132 L Potassium Chloride 91.9 L Carbon Dioxide BUN 104 H Creatinine 3.8 H Glucose 177 H POC Glucose 160 H Lactic Acid Calcium Phosphorus Magnesium 2.60 H AST ALT Troponin T C-Reactive Protein Total Protein Albumin Arterial Blood Glucose Arterial Blood Ionized Calcium Urine WBC (Auto) Urine Creatinine Valproic Acid 09/07/20 09/07/20 09/07/20 04:00 05:36 12:09 WBC RBC Hgb Hct MCH MCHC RDW Lymph % (Auto) Lymph # (Auto) Island # (Auto) Eos # (Auto) Seg Neutrophils % Seg Neuts % (Manual) Lymphocytes % (Manual) Seg Neutrophils # Seg Neutrophils # Man Lymphocytes # (Manual) D-Dimer ABG pH POC ABG pO2 ABG pO2 ABG HCO3 ABG Hemoglobin ABG Oxyhemoglobin ABG Sodium ABG Potassium ABG Glucose Oxyhemoglobin Carboxyhemoglobin Sodium Potassium Chloride 95.6 L Carbon Dioxide BUN 108 H Creatinine 3.9 H Glucose 129 H POC Glucose 151 H 172 H Lactic Acid Calcium Phosphorus Magnesium AST ALT Troponin T C-Reactive Protein Total Protein Albumin Arterial Blood Glucose Arterial Blood Ionized Calcium Urine WBC (Auto) Urine Creatinine Valproic Acid 09/07/20 09/07/20 09/07/20 15:28 18:00 21:21 WBC RBC Hgb Hct MCH MCHC RDW Lymph % (Auto) Lymph # (Auto) Island # (Auto) Eos # (Auto) Seg Neutrophils % Seg Neuts % (Manual) Lymphocytes % (Manual) Seg Neutrophils # Seg Neutrophils # Man Lymphocytes # (Manual) D-Dimer ABG pH POC ABG pO2 ABG pO2 ABG HCO3 ABG Hemoglobin ABG Oxyhemoglobin ABG Sodium ABG Potassium ABG Glucose Oxyhemoglobin Carboxyhemoglobin Sodium Potassium Chloride Carbon Dioxide BUN Creatinine Glucose POC Glucose 153 H 112 H Lactic Acid Calcium Phosphorus Magnesium AST ALT Troponin T C-Reactive Protein Total Protein Albumin Arterial Blood Glucose Arterial Blood Ionized Calcium Urine WBC (Auto) Urine Creatinine Valproic Acid 42.9 L 09/07/20 09/07/20 09/08/20 23:09 Unknown 05:08 WBC 13.6 H RBC 3.14 L Hgb 8.1 L Hct 25.2 L MCH 26 L MCHC RDW 15.5 H Lymph % (Auto) 6.0 L Lymph # (Auto) 0.8 L Island # (Auto) Eos # (Auto) 0.5 H Seg Neutrophils % 85.5 H Seg Neuts % (Manual) Lymphocytes % (Manual) Seg Neutrophils # 11.6 H Seg Neutrophils # Man Lymphocytes # (Manual) D-Dimer ABG pH POC ABG pO2 ABG pO2 ABG HCO3 ABG Hemoglobin ABG Oxyhemoglobin ABG Sodium ABG Potassium ABG Glucose Oxyhemoglobin Carboxyhemoglobin Sodium Potassium Chloride Carbon Dioxide BUN Creatinine Glucose POC Glucose 149 H 125 H Lactic Acid Calcium Phosphorus Magnesium AST ALT Troponin T C-Reactive Protein Total Protein Albumin Arterial Blood Glucose Arterial Blood Ionized Calcium Urine WBC (Auto) Urine Creatinine Valproic Acid 09/08/20 09/08/20 09/09/20 06:00 23:25 04:55 WBC RBC Hgb Hct MCH MCHC RDW Lymph % (Auto) Lymph # (Auto) Island # (Auto) Eos # (Auto) Seg Neutrophils % Seg Neuts % (Manual) Lymphocytes % (Manual) Seg Neutrophils # Seg Neutrophils # Man Lymphocytes # (Manual) D-Dimer ABG pH POC ABG pO2 ABG pO2 ABG HCO3 ABG Hemoglobin ABG Oxyhemoglobin ABG Sodium ABG Potassium ABG Glucose Oxyhemoglobin Carboxyhemoglobin Sodium 135 L Potassium Chloride 94.0 L 97.8 L Carbon Dioxide BUN 110 H 113 H Creatinine 3.7 H 3.7 H Glucose 127 H 156 H POC Glucose 135 H Lactic Acid Calcium 7.8 L Phosphorus Magnesium AST ALT Troponin T C-Reactive Protein Total Protein Albumin Arterial Blood Glucose Arterial Blood Ionized Calcium Urine WBC (Auto) Urine Creatinine Valproic Acid 09/09/20 09/09/20 09/09/20 05:10 11:39 11:50 WBC RBC Hgb Hct MCH MCHC RDW Lymph % (Auto) Lymph # (Auto) Island # (Auto) Eos # (Auto) Seg Neutrophils % Seg Neuts % (Manual) Lymphocytes % (Manual) Seg Neutrophils # Seg Neutrophils # Man Lymphocytes # (Manual) D-Dimer ABG pH POC ABG pO2 ABG pO2 ABG HCO3 ABG Hemoglobin 6.3 L ABG Oxyhemoglobin ABG Sodium ABG Potassium ABG Glucose Oxyhemoglobin Carboxyhemoglobin Sodium Potassium Chloride Carbon Dioxide BUN Creatinine Glucose POC Glucose 177 H 127 H Lactic Acid Calcium Phosphorus Magnesium AST ALT Troponin T C-Reactive Protein Total Protein Albumin Arterial Blood Glucose Arterial Blood Ionized Calcium Urine WBC (Auto) Urine Creatinine Valproic Acid 09/09/20 09/09/20 09/09/20 12:23 17:37 23:15 WBC 14.8 H RBC 2.69 L Hgb 7.1 L Hct 22.7 L MCH 26 L MCHC RDW 15.5 H Lymph % (Auto) 2.9 L Lymph # (Auto) 0.4 L Island # (Auto) 1.0 H Eos # (Auto) 0.5 H Seg Neutrophils % 86.8 H Seg Neuts % (Manual) Lymphocytes % (Manual) Seg Neutrophils # 12.8 H Seg Neutrophils # Man Lymphocytes # (Manual) D-Dimer ABG pH POC ABG pO2 ABG pO2 ABG HCO3 ABG Hemoglobin ABG Oxyhemoglobin ABG Sodium ABG Potassium ABG Glucose Oxyhemoglobin Carboxyhemoglobin Sodium Potassium Chloride Carbon Dioxide BUN Creatinine Glucose POC Glucose 138 H 157 H Lactic Acid Calcium Phosphorus Magnesium AST ALT Troponin T C-Reactive Protein Total Protein Albumin Arterial Blood Glucose Arterial Blood Ionized Calcium Urine WBC (Auto) Urine Creatinine Valproic Acid 09/10/20 09/10/20 09/10/20 03:19 05:17 06:50 WBC RBC Hgb Hct MCH MCHC RDW Lymph % (Auto) Lymph # (Auto) Island # (Auto) Eos # (Auto) Seg Neutrophils % Seg Neuts % (Manual) Lymphocytes % (Manual) Seg Neutrophils # Seg Neutrophils # Man Lymphocytes # (Manual) D-Dimer ABG pH POC ABG pO2 ABG pO2 ABG HCO3 ABG Hemoglobin 8.4 L ABG Oxyhemoglobin ABG Sodium 130.4 L ABG Potassium 3.3 L ABG Glucose 158 H Oxyhemoglobin Carboxyhemoglobin Sodium Potassium 3.5 L Chloride Carbon Dioxide BUN 111 H Creatinine 3.5 H Glucose 133 H POC Glucose 137 H Lactic Acid Calcium Phosphorus Magnesium AST ALT Troponin T C-Reactive Protein Total Protein Albumin Arterial Blood Glucose 158 H Arterial Blood Ionized Calcium 4.5 L Urine WBC (Auto) Urine Creatinine Valproic Acid 09/10/20 06:50 WBC 12.7 H RBC 2.78 L Hgb 7.1 L Hct 22.3 L MCH 26 L MCHC RDW 15.6 H Lymph % (Auto) 4.0 L Lymph # (Auto) 0.5 L Island # (Auto) Eos # (Auto) 0.5 H Seg Neutrophils % 86.4 H Seg Neuts % (Manual) Lymphocytes % (Manual) Seg Neutrophils # 11.0 H Seg Neutrophils # Man Lymphocytes # (Manual) D-Dimer ABG pH POC ABG pO2 ABG pO2 ABG HCO3 ABG Hemoglobin ABG Oxyhemoglobin ABG Sodium ABG Potassium ABG Glucose Oxyhemoglobin Carboxyhemoglobin Sodium Potassium Chloride Carbon Dioxide BUN Creatinine Glucose POC Glucose Lactic Acid Calcium Phosphorus Magnesium AST ALT Troponin T C-Reactive Protein Total Protein Albumin Arterial Blood Glucose Arterial Blood Ionized Calcium Urine WBC (Auto) Urine Creatinine Valproic Acid Allied health notes reviewed: RT
--- NOTE | 2020-09-10 15:49 | Progress Note ---
Assessment and Plan This is a 75-year-old female with CHF, OHS DM, CKD, morbid obesity, GERD, hypertension, chronic respiratory failure admitted s/p cardiac arrest A/P --Anoxic encephalopathy -Neurology consulted, appreciate recommendations -08/[address] head shows no CT evidence of acute abnormality -08/28 MRI brain without contrast shows abnormal diffusion and FLAIR signal abnormality which may suggest hypoxic/ischemic brain injury, hypoglycemic encephalopathy and perhaps Creutsfeldt-Cornelius disease otherwise no focal mass, hemorrhage or hydrocephalus seen -08/30 EEG- results pending Seizure -Keppra 500 mg mg BID , vimpat, Ativan as needed for facial twitching -Seizure/aspiration precautions -per neuro prognosis poor based on MRI -NO mind altering medications - to allow for neuro assessment and brain function -opens eyes spontaneously ; pupils not reactive to light; neg threat; pos cough; withdrawal on right to deep pain; no response to deep pain on left Pt has 8 living children- updated on plan of care --S/p cardiac arrest with prolonged down time- see ER note -ddimer elevated on admit following cardiac arrest -Cardiology has seen and signed off- call if needed -08/25 echocardiogram shows LVEF 40 to 45%, LV normal size, LV systolic function mildly decreased, mild diastolic dysfunction, mildly dilated right ventricle, pulmonary hypertension RVSP 45 mmHg -asa and statin Hypertension -home norvasc , hydral added -Blood pressure monitoring per protocol -IV hydralazine as needed --Acute hypoxic respiratory failure -Chronic respiratory insufficiency at home with 3 L oxygen via nasal cannula -remains intubated and ventilated on cpap this AM -Wean as tolerated; trend pulse ox -CCM following -VAP bundle -nebs as needed Multifocal pneumonia/ ? aspiration event -08/25 CXR shows worsening patchy bilateral pulmonary opacities -08/25 CTA chest shows no evidence of pulmonary embolism, bilateral pulmonary processes with large bilateral pleural effusions, pneumonia is a concern, pulmonary edema could be a similar appearance versus pulmonary edema --Protein Calorie Malnutrition TF per nutrition bowel reg. --FLORIDALMA on CKD secondary to patient under nephropathy -Nephrology consulted, patient recommendations -Daily weights -Avoid nephrotoxic medications; avoid NITIN/ARB -bladder scan with high residuals requiring frequent intermittent caths so foreman replaced at 1230 -trend and replace electrolytes as needed -Trend Cr --Urinary retention -Foreman replaced 08/31 for urinary retention --Anemia -Admit H/H 8.6/27.8 -Transfuse for hemoglobin less than 7 -Trend CBC --VTE prophylaxis with SCD and SQH --Pneumonia -trend WBC and temp curve -afebrile -trend cultures -covid neg on admit --Diabetes mellitus -SSI -Lantus, increase as needed -Accu-Cheks every 6h -avoid hypoglycemia -hx obesity DVT/GI prophylaxis: SCDs to bilateral lower extremities heparin subcu, PPI Disposition: inpt hospice Lines: PIV; foreman DNR code status The high probability of a clinically significant, sudden or life threatening deterioration of the [cardiac, pulmonary, neuro, renal, infectious disease] system(s) required my full and direct attention, intervention and personal management. The aggregate critical care time was [35] minutes. This time is in addition to time spent performing reported procedures but includes the following: [x] Data Review and interpretation [x] Patient assessment and monitoring of vital signs [x] Documentation [x] Medication orders and management Brief History: This is a 69-year-old female with OHS, DM, CKD stage IV, morbid obesity CHF, GERD, HTN, chronic respiratory failure on 3 L of home oxygen via nasal cannula who presented to the emergency department on 08/25 after being found down unresponsive at 0950 hours by family and upon EMS arrival she was unresponsive and asystolic arrest. Patient was treated with ACLS protocol with eventual ROSC after at least 15 minutes of ACLS and patient was transported to [facility]. In the emergency department patient was found to have acute hypoxic respiratory f ailure and subsequently intubated on vasopressor support, she underwent a CXR which showed bilateral pneumonia and exam is consistent with SIRS. [facility] and cardiology were consulted and patient was admitted to the hospital service with acute hypoxic respiratory failure, anoxic encephalopathy, s/p cardiac arrest, multifocal pneumonia, FLORIDALMA on CKD. Daily clinical course: 08/26/20 patient is seen and examined. Patient is on vent. WBC 17.9 and hemoglobin 8.3 hematocrit 25.6. Patient may have 1 episode of questionable seizure. Patient BUN is 56 creatinine 3.4. Will consult nephrology. We also start the patient on Rocephin 2 g IV daily and Zithromax. Aspirin 81 mg p.o. daily and Lipitor. Patient is having echocardiogram. Cardiology and critical care will see the patient as consult tension. Continue current management. We have started on NG tube feeding and consult nutrition for evaluation. Recheck CBC BMP in the morning. Case discussed with daughter Leena [phone] 08/27: Patient remains on full ventilatory support, considering concern for seizure yesterday under the circumstance of out of hospital cardiac arrest, and concern for anoxic encephalopathy, will proceed with Neurology consultation. 08/28: At the time my examination patient sedation of propofol 30 and fentanyl 1 was being held and she was on CMV tidal and 450, rate of 18, PEEP of 6 and FiO2 of 35%. Neurology was consulted. I updated the patient's daughter Leena Payton at bedside and told her of the pending tests the neurologist has ordered. 08/29: Increase in Lantus due to persistent hypoglycemia, chest ultrasound ordered for possible thoracentesis by [facility], MRI brain pending. Remove Foreman catheter if okay with nephrology. Increase in beta-skylar by [facility] however cardiology decreased hydralazine per neurology recommendations. At the time my examination patient was on CPAP trial pressure support of 12, PEEP of 6 and 35% FiO2. RT obtain an ABG we will continue CPAP as tolerated. 08/28: No acute events overnight. Noted to have seizure, addition of vimpat 08/29: Chest US noted to have pleural effusions, cxr shows pulmonary edema, nephro ordered lasix x1. [facility] and nephro had conversation son at bedside. Surgery consulted for trach/peg. [facility] plans for IR thora if family decides aggressive care 08/30 No acute overnight events 08/31: given 80mg lasix by nephro, increase in lantus, Dulcolax suppository given for no recorded BM for 5 to 6 days 09/01: Patient did not have a further response to 80 mg of Lasix yesterday, no acute events reported overnight, patient is having several loose BMs 09/02: Patient was having facial twitching this morning, 1 mg of Ativan was given to the patient, Keppra was increased. No family at the bedside. 09/04: Patient continues to have facial twitching, neurology has made adjustments to medications for seizure control, spoke with critical care and the son at the bedside, family still deciding on the final route of care 09/05: Patient seen and examined in the ICU, continue to have social drinking. General surgery consulted for trach and PEG. Patient with CPAP vent setting. 09/06: Patient developed sinus bradycardia, cardiology consulted. Plan for trach and PEG placement postponed.. 09/07: Family wish to continue full CODE STATUS and wished to proceed with trach and PEG. Heart rate currently stable with dopamine. Patient remains on mechanical ventilation at [facility] setting. Very poor prognosis. Continue to have facial twitching, neurology following appreciate recommendation 09/08/20: clinically no change, on mechanical ventilation. cont current care, plan for trach and PEG on Friday. family want full code. 09/09/20; cont supportive care, follow clinically. planned for trach and PEG next week. 09/10: Patients eldest Son at bedside and I updated him with all details. he informed me that family has decided to change code status to DNR and hospice. order placed. cont supportive care. Subjective Date of service: 09/10/20 Principal diagnosis: Ac. hypoxemic resp failure; Cardiac arrest; AMS; AE-CHF; Hyperkalemia; FLORIDALMA Interval history: Patient seen and examined. Medical records and medication list reviewed. No acute event overnight noted by the RN. Vital reviewed, remains on mechanical ventilation Discussed plan of care at bedside with RN Patient's Son at bedside and wished to proceed with DNR and inpt hospice Objective - Exam Narrative Exam: GENERAL: well-developed and well-nourished elderly female lying on bed with ventilator support HEENT: Normocephalic. Atraumatic. No conjunctival congestion or icterus. Patient has moist mucous membranes. NECK: Supple. Trachea midline. CHEST/LUNGS: On mechanical ventilation with CPAP setting HEART/CARDIOVASCULAR: Regular in rate and rhythm. S1 and S2 positive. ABDOMEN: Abdomen is soft, nontender. Patient has normal bowel sounds. SKIN: There is no rash. Warm and dry. NEURO: Does not follow command MUSCULOSKELETAL: No joint effusion or tenderness. EXTRIMITY: No edema, no cyanosis or clubbing. PSYCH: Unable to assess - Constitutional Vitals: Vital Signs - 12hr 09/10/20 09/10/20 09/10/20 04:00 04:01 04:36 Temperature 98.8 F Pulse Rate 124 H 68 68 Pulse Rate [ From Monitor] Respiratory 22 Rate Blood Pressure 141/54 130/53 O2 Sat by Pulse 98 99 Oximetry 09/10/20 09/10/20 09/10/20 04:49 05:01 06:01 Temperature Pulse Rate 65 66 Pulse Rate [ 69 From Monitor] Respiratory 15 18 Rate Blood Pressure 130/51 134/56 O2 Sat by Pulse 98 97 Oximetry 09/10/20 09/10/20 09/10/20 07:01 07:35 07:36 Temperature 98.3 F Pulse Rate 70 70 Pulse Rate [ From Monitor] Respiratory 21 Rate Blood Pressure 148/66 156/61 O2 Sat by Pulse 100 100 Oximetry 09/10/20 09/10/20 09/10/20 08:00 08:01 09:01 Temperature 98.3 F Pulse Rate 70 70 69 Pulse Rate [ 70 From Monitor] Respiratory 22 21 Rate Blood Pressure 154/61 148/58 O2 Sat by Pulse 98 99 100 Oximetry 09/10/20 09/10/20 09/10/20 10:01 11:01 11:54 Temperature Pulse Rate 72 73 67 Pulse Rate [ From Monitor] Respiratory 22 23 Rate Blood Pressure 166/70 169/66 139/52 O2 Sat by Pulse 97 100 Oximetry 09/10/20 09/10/20 09/10/20 12:00 12:06 13:00 Temperature 98.6 F Pulse Rate 65 71 Pulse Rate [ 75 From Monitor] Respiratory 19 22 Rate Blood Pressure 131/52 171/67 O2 Sat by Pulse 98 Oximetry 09/10/20 09/10/20 14:00 14:48 Temperature Pulse Rate 70 71 Pulse Rate [ From Monitor] Respiratory 21 Rate Blood Pressure 162/62 154/57 O2 Sat by Pulse 100 Oximetry - Labs CBC & Chem 7: 09/10/20 06:50 09/11/20 04:30 Labs: Abnormal lab results 09/09/20 09/09/20 09/10/20 Range/Units 17:37 23:15 03:19 WBC (4.5-11.0) K/mm3 RBC (3.65-5.03) M/mm3 Hgb (10.1-14.3) gm/dl Hct (30.3-42.9) % MCH (28-32) pg RDW (13.2-15.2) % Lymph % (Auto) (13.4-35.0) % Lymph # (Auto) (1.2-5.4) K/mm3 Eos # (Auto) (0.0-0.4) K/mm3 Seg Neutrophils % (40.0-70.0) % Seg Neutrophils # (1.8-7.7) K/mm3 ABG Hemoglobin 8.4 L (12.0-17.5) ABG Sodium 130.4 L (136.0-145.0) mmol/L ABG Potassium 3.3 L (3.40-4.50) mmol/L ABG Glucose 158 H (65-95) mg/dL Potassium (3.6-5.0) mmol/L BUN (7-17) mg/dL Creatinine (0.6-1.2) mg/dL Glucose (65-100) mg/dL POC Glucose 138 H 157 H (70-105) mg/dL Arterial Blood Glucose 158 H (65-95) mg/dL Arterial Blood Ionized Calcium 4.5 L (4.6-5.3) mg/dL 09/10/20 09/10/20 09/10/20 Range/Units 05:17 06:50 06:50 WBC 12.7 H (4.5-11.0) K/mm3 RBC 2.78 L (3.65-5.03) M/mm3 Hgb 7.1 L (10.1-14.3) gm/dl Hct 22.3 L (30.3-42.9) % MCH 26 L (28-32) pg RDW 15.6 H (13.2-15.2) % Lymph % (Auto) 4.0 L (13.4-35.0) % Lymph # (Auto) 0.5 L (1.2-5.4) K/mm3 Eos # (Auto) 0.5 H (0.0-0.4) K/mm3 Seg Neutrophils % 86.4 H (40.0-70.0) % Seg Neutrophils # 11.0 H (1.8-7.7) K/mm3 ABG Hemoglobin (12.0-17.5) ABG Sodium (136.0-145.0) mmol/L ABG Potassium (3.40-4.50) mmol/L ABG Glucose (65-95) mg/dL Potassium 3.5 L (3.6-5.0) mmol/L BUN 111 H (7-17) mg/dL Creatinine 3.5 H (0.6-1.2) mg/dL Glucose 133 H (65-100) mg/dL POC Glucose 137 H (70-105) mg/dL Arterial Blood Glucose (65-95) mg/dL Arterial Blood Ionized Calcium (4.6-5.3) mg/dL 09/10/20 Range/Units 11:38 WBC (4.5-11.0) K/mm3 RBC (3.65-5.03) M/mm3 Hgb (10.1-14.3) gm/dl Hct (30.3-42.9) % MCH (28-32) pg RDW (13.2-15.2) % Lymph % (Auto) (13.4-35.0) % Lymph # (Auto) (1.2-5.4) K/mm3 Eos # (Auto) (0.0-0.4) K/mm3 Seg Neutrophils % (40.0-70.0) % Seg Neutrophils # (1.8-7.7) K/mm3 ABG Hemoglobin (12.0-17.5) ABG Sodium (136.0-145.0) mmol/L ABG Potassium (3.40-4.50) mmol/L ABG Glucose (65-95) mg/dL Potassium (3.6-5.0) mmol/L BUN (7-17) mg/dL Creatinine (0.6-1.2) mg/dL Glucose (65-100) mg/dL POC Glucose 145 H (70-105) mg/dL Arterial Blood Glucose (65-95) mg/dL Arterial Blood Ionized Calcium (4.6-5.3) mg/dL HEART Score - HEART Score Troponin: Troponin T 0.057 ng/mL (0.00-0.029) H 08/25/20 11:23
[2020-09-10] MEDS: INSULIN GLARGINE 100 UNITS/ML SUB-Q SCH (21:48)
[2020-09-11 05:25] LABS: Calcium 7.9 mg/dL (8.4-10.2)
[2020-09-11] MEDS: LEVOTHYROXINE 75 MCG TAB PO SCH (05:52)
[2020-09-11] MEDS: VALPROATE SODIUM 750 MG in SODIUM CHLORIDE 0.9% 100 ML IV SCH ×2 (05:53→14:10)
[2020-09-11] MEDS: LACOSAMIDE 200 MG in SODIUM CHLORIDE 0.9% 100 ML IV SCH (06:08)
[2020-09-11] MEDS: INSULIN LISPRO 100 UNIT/ML SUB-Q SCH ×4 (06:16→18:03)
--- NOTE | 2020-09-11 10:11 | Progress Note ---
Assessment and Plan Acute hypoxemic respiratory failure Cardiac arrest with ROSC Acute encephalopathy Multifocal pneumonia Possible bilateral pulmonary edema Congestive heart failure with an acute exacerbation Anemia Hyperkalemia Lactic acidosis Acute kidney injury Elevated serum transaminases Non-ST elevation HI Oropharyngeal dysphagia Diarrhea -continue with AEDs, continue to monitor for seizures while off Midazolam -continue to monitor hemodynamics closely -Continue to monitor off antibiotics for now. Trend temperature curve and WCC -Stop all laxatives -I called the daughter who is listed as POVeronique ( [phone]), left a generic message introducing myself and asked her to call me back In the interim continue all care - continue to titrate supplemental oxygen for target sPO2 89-92% - VAP bundle addressed - continue lung protective strategies - continue bronchodilators with pulmonary hygiene per RT - continue Daily SAT and SBT assessment as tolerated - continue accuchecks with glycemic control per SSI (while critically ill target blood glucose of 140-180 mg/dL; avoid hypoglycemia) - avoid nephrotoxins, renally dose all medications - continue to avoid benzodiazepines, reduce the possibility of delirium - enteric nutritional support at goal rate as tolerated -Stress ulcer and VTE prophylaxis( Famotidien adn Heparin) - PT/OT/ROM exercises - continue mobility, off loading and frequent turning per facility protocol for pressure ulcer prevention - continue to monitor hemodynamics closely - continue other care per attending / other consultants COVID SPECIFIC INTERVENTIONS - COVID-19 PCR negative CONDITION: CRITICAL PROGNOSIS: GUARDED CODE STATUS: DNAR The high probability of a clinically significant, sudden or life-threatening deterioration of the [respiratory, cardiovascular & neurologic] system(s) r equired my full and direct attention, intervention and personal management. The aggregate critical care time was [33] minutes without overlap. Time includes spent on; [x] Data Review and interpretation [x] Patient assessment and monitoring of vital signs [x] Documentation [x] Medication orders and management Subjective Date of service: 09/11/20 Principal diagnosis: Ac. hypoxemic resp failure; Cardiac arrest; AMS; AE-CHF; Hy perkalemia; FLORIDALMA Interval history: Patient is seen today for: Acute hypoxemic respiratory failure; Cardiac arrest with ROSC; Acute encephalopathy; Multifocal pneumonia; pulmonary edema; AE-CHF; Hyperkalemia; FLORIDALMA; NSTEMI Seen and examined at bedside; 24hour events reviewed; nursing and respiratory care staff consulted; no adverse overnight events reported to me; resting in bed; remains on MVS; AMS is persistent; afebrile; no emesis or overt aspiration and no seizures Diarrhea reported. Discussed in MDR Objective Vital Signs - 12hr 09/10/20 09/10/20 09/10/20 22:10 22:43 23:00 Temperature Pulse Rate 76 74 78 Pulse Rate [ From Monitor] Respiratory 13 17 Rate Blood Pressure 171/66 168/64 165/69 O2 Sat by Pulse 97 95 96 Oximetry 09/11/20 09/11/20 09/11/20 00:00 01:00 02:00 Temperature 100.1 F H Pulse Rate 79 76 86 Pulse Rate [ 80 From Monitor] Respiratory 19 18 25 H Rate Blood Pressure 170/68 160/63 166/64 O2 Sat by Pulse 96 95 Oximetry 09/11/20 09/11/20 09/11/20 03:00 03:25 03:39 Temperature 99.8 F H Pulse Rate 76 71 Pulse Rate [ From Monitor] Respiratory 15 Rate Blood Pressure 134/51 130/45 O2 Sat by Pulse 97 98 Oximetry 09/11/20 09/11/20 09/11/20 04:00 05:00 06:00 Temperature Pulse Rate 72 75 69 Pulse Rate [ 75 From Monitor] Respiratory 16 13 19 Rate Blood Pressure 126/48 148/54 128/49 O2 Sat by Pulse 97 97 Oximetry 09/11/20 09/11/20 09/11/20 07:00 07:30 07:56 Temperature 99.4 F Pulse Rate 73 74 Pulse Rate [ From Monitor] Respiratory 19 Rate Blood Pressure 160/60 126/46 O2 Sat by Pulse 99 Oximetry 09/11/20 09/11/20 09/11/20 08:00 08:05 09:00 Temperature Pulse Rate 73 70 67 Pulse Rate [ From Monitor] Respiratory 23 23 19 Rate Blood Pressure 126/46 149/53 130/47 O2 Sat by Pulse 97 99 100 Oximetry Constitutional: no acute distress, other (elderly obese female with no patient ventilator dyssynchrony) Eyes: non-icteric ENT: oropharynx moist, oropharyngeal exudate pre (clear, frothy), other (ETT 24 cm DIMAS, large tongue- apparently had seizure like activity) Neck: supple, no lymphadenopathy, no JVD Effort: mildly labored Ascultation: Bilateral: diminished breath sounds (bases), rhonchi (scant) Percussion: Bilateral: not dull Cardiovascular: regular rate and rhythm, other (S1,S2) Gastrointestinal: normoactive bowel sounds Integumentary: normal Extremities: no cyanosis, no edema, pulses normal, no ischemia or petechiae Neurologic: pupils equal and round, unable to assess, other (facial and whole body seizures + bitting tongue) Psychiatric: other (unable to assess re: AMS) CBC and BMP: 09/10/20 06:50 09/11/20 04:30 ABG, PT/INR, D-dimer: ABG ABG pH 7.447 (7.320-7.450) 09/10/20 03:19 POC ABG pCO2 33.5 mmHg (32.0-48.0) 09/10/20 03:19 ABG pCO2 38.1 mm Hg 09/09/20 11:50 POC ABG pO2 97.5 mmHg (83-108) 09/10/20 03:19 ABG pO2 87.6 mm Hg (80.0-90.0) 09/09/20 11:50 POC ABG HCO3 22.6 09/10/20 03:19 ABG O2 Saturation 97.5 (0-100) 09/10/20 03:19 PT/INR, D-dimer D-Dimer > 34876 ng/mlDDU (0-234) H 08/25/20 11:23 Abnormal lab findings: Abnormal Labs 08/25/20 08/25/20 08/25/20 11:14 11:17 11:23 WBC 11.5 H RBC 3.22 L Hgb 8.6 L Hct 27.6 L MCH 27 L MCHC RDW 15.6 H Lymph % (Auto) Lymph # (Auto) [place] # (Auto) Eos # (Auto) Seg Neutrophils % Seg Neuts % (Manual) 89.0 H Lymphocytes % (Manual) 5.0 L Seg Neutrophils # Seg Neutrophils # Man 10.2 H Lymphocytes # (Manual) 0.6 L D-Dimer ABG pH 7.290 L POC ABG pO2 161.1 H ABG pO2 ABG HCO3 ABG Hemoglobin 8.9 L ABG Oxyhemoglobin 98.6 H ABG Sodium 135.2 L ABG Potassium 5.9 H ABG Glucose 210 H Oxyhemoglobin Carboxyhemoglobin 0.4 L Sodium Potassium Chloride Carbon Dioxide BUN Creatinine Glucose POC Glucose Lactic Acid Calcium Phosphorus Magnesium AST ALT Troponin T C-Reactive Protein Total Protein Albumin Arterial Blood Glucose 210 H Arterial Blood Ionized Calcium 4.4 L Urine WBC (Auto) 31.0 H Urine Creatinine Valproic Acid 08/25/20 08/25/20 08/25/20 11:23 11:23 11:23 WBC RBC Hgb Hct MCH MCHC RDW Lymph % (Auto) Lymph # (Auto) [place] # (Auto) Eos # (Auto) Seg Neutrophils % Seg Neuts % (Manual) Lymphocytes % (Manual) Seg Neutrophils # Seg Neutrophils # Man Lymphocytes # (Manual) D-Dimer > 77336 H ABG pH POC ABG pO2 ABG pO2 ABG HCO3 ABG Hemoglobin ABG Oxyhemoglobin ABG Sodium ABG Potassium ABG Glucose Oxyhemoglobin Carboxyhemoglobin Sodium Potassium 6.4 H* Chloride Carbon Dioxide 21 L BUN 52 H Creatinine 3.5 H Glucose 194 H POC Glucose Lactic Acid 3.30 H* Calcium 8.1 L Phosphorus Magnesium AST 103 H ALT 77 H Troponin T 0.057 H C-Reactive Protein Total Protein 5.8 L Albumin 3.4 L Arterial Blood Glucose Arterial Blood Ionized Calcium Urine WBC (Auto) Urine Creatinine Valproic Acid 08/25/20 08/25/20 08/25/20 13:51 15:45 20:34 WBC RBC Hgb Hct MCH MCHC RDW Lymph % (Auto) Lymph # (Auto) [place] # (Auto) Eos # (Auto) Seg Neutrophils % Seg Neuts % (Manual) Lymphocytes % (Manual) Seg Neutrophils # Seg Neutrophils # Man Lymphocytes # (Manual) D-Dimer ABG pH POC ABG pO2 66.3 L ABG pO2 ABG HCO3 ABG Hemoglobin 9.1 L ABG Oxyhemoglobin 92.5 L ABG Sodium ABG Potassium ABG Glucose 225 H Oxyhemoglobin Carboxyhemoglobin Sodium Potassium Chloride Carbon Dioxide BUN Creatinine Glucose POC Glucose 188 H 233 H Lactic Acid Calcium Phosphorus Magnesium AST ALT Troponin T C-Reactive Protein Total Protein Albumin Arterial Blood Glucose 225 H Arterial Blood Ionized Calcium 4.4 L Urine WBC (Auto) Urine Creatinine Valproic Acid 08/26/20 08/26/20 08/26/20 04:14 05:04 05:04 WBC 17.9 H RBC 3.05 L Hgb 8.3 L Hct 25.6 L MCH 27 L MCHC RDW 15.3 H Lymph % (Auto) Lymph # (Auto) [place] # (Auto) Eos # (Auto) Seg Neutrophils % Seg Neuts % (Manual) 96.0 H Lymphocytes % (Manual) 1.0 L Seg Neutrophils # Seg Neutrophils # Man 17.2 H Lymphocytes # (Manual) 0.2 L D-Dimer ABG pH POC ABG pO2 131.3 H ABG pO2 ABG HCO3 ABG Hemoglobin 8.6 L ABG Oxyhemoglobin 98.2 H ABG Sodium ABG Potassium ABG Glucose 182 H Oxyhemoglobin Carboxyhemoglobin 0.2 L Sodium Potassium Chloride Carbon Dioxide BUN 56 H Creatinine 3.4 H Glucose 187 H POC Glucose Lactic Acid Calcium 8.3 L Phosphorus Magnesium AST 54 H ALT 57 H Troponin T C-Reactive Protein Total Protein 5.4 L Albumin 2.9 L Arterial Blood Glucose 182 H Arterial Blood Ionized Calcium 4.3 L Urine WBC (Auto) Urine Creatinine Valproic Acid 08/26/20 08/26/20 08/26/20 05:40 07:36 11:54 WBC RBC Hgb Hct MCH MCHC RDW Lymph % (Auto) Lymph # (Auto) [place] # (Auto) Eos # (Auto) Seg Neutrophils % Seg Neuts % (Manual) Lymphocytes % (Manual) Seg Neutrophils # Seg Neutrophils # Man Lymphocytes # (Manual) D-Dimer ABG pH POC ABG pO2 ABG pO2 ABG HCO3 ABG Hemoglobin ABG Oxyhemoglobin ABG Sodium ABG Potassium ABG Glucose Oxyhemoglobin Carboxyhemoglobin Sodium Potassium Chloride Carbon Dioxide BUN Creatinine Glucose POC Glucose 179 H 171 H 190 H Lactic Acid Calcium Phosphorus Magnesium AST ALT Troponin T C-Reactive Protein Total Protein Albumin Arterial Blood Glucose Arterial Blood Ionized Calcium Urine WBC (Auto) Urine Creatinine Valproic Acid 08/26/20 08/26/20 08/26/20 15:14 17:00 18:50 WBC RBC Hgb Hct MCH MCHC RDW Lymph % (Auto) Lymph # (Auto) [place] # (Auto) Eos # (Auto) Seg Neutrophils % Seg Neuts % (Manual) Lymphocytes % (Manual) Seg Neutrophils # Seg Neutrophils # Man Lymphocytes # (Manual) D-Dimer ABG pH POC ABG pO2 ABG pO2 ABG HCO3 ABG Hemoglobin ABG Oxyhemoglobin ABG Sodium ABG Potassium ABG Glucose Oxyhemoglobin Carboxyhemoglobin Sodium Potassium Chloride Carbon Dioxide BUN Creatinine Glucose POC Glucose 158 H Lactic Acid Calcium Phosphorus Magnesium AST ALT Troponin T C-Reactive Protein 7.80 H Total Protein Albumin Arterial Blood Glucose Arterial Blood Ionized Calcium Urine WBC (Auto) Urine Creatinine 67.4 H Valproic Acid 08/26/20 08/27/20 08/27/20 22:01 04:10 05:12 WBC RBC Hgb Hct MCH MCHC RDW Lymph % (Auto) Lymph # (Auto) [place] # (Auto) Eos # (Auto) Seg Neutrophils % Seg Neuts % (Manual) Lymphocytes % (Manual) Seg Neutrophils # Seg Neutrophils # Man Lymphocytes # (Manual) D-Dimer ABG pH 7.454 H POC ABG pO2 74.9 L ABG pO2 ABG HCO3 ABG Hemoglobin 7.9 L ABG Oxyhemoglobin ABG Sodium ABG Potassium ABG Glucose 117 H Oxyhemoglobin Carboxyhemoglobin Sodium Potassium Chloride Carbon Dioxide BUN Creatinine Glucose POC Glucose 122 H 117 H Lactic Acid Calcium Phosphorus Magnesium AST ALT Troponin T C-Reactive Protein Total Protein Albumin Arterial Blood Glucose 117 H Arterial Blood Ionized Calcium 4.4 L Urine WBC (Auto) Urine Creatinine Valproic Acid 08/27/20 08/27/20 08/27/20 07:24 07:24 11:08 WBC 12.7 H RBC 2.92 L Hgb 8.1 L Hct 24.4 L MCH MCHC RDW 15.4 H Lymph % (Auto) 5.9 L Lymph # (Auto) 0.8 L [place] # (Auto) Eos # (Auto) Seg Neutrophils % 86.9 H Seg Neuts % (Manual) Lymphocytes % (Manual) Seg Neutrophils # 11.0 H Seg Neutrophils # Man Lymphocytes # (Manual) D-Dimer ABG pH POC ABG pO2 ABG pO2 ABG HCO3 ABG Hemoglobin ABG Oxyhemoglobin ABG Sodium ABG Potassium ABG Glucose Oxyhemoglobin Carboxyhemoglobin Sodium Potassium Chloride Carbon Dioxide BUN 60 H Creatinine 3.6 H Glucose 135 H POC Glucose 139 H Lactic Acid Calcium Phosphorus Magnesium AST ALT Troponin T C-Reactive Protein Total Protein 5.3 L Albumin 2.6 L Arterial Blood Glucose Arterial Blood Ionized Calcium Urine WBC (Auto) Urine Creatinine Valproic Acid 08/27/20 08/27/20 08/27/20 11:19 17:31 23:25 WBC RBC Hgb Hct MCH MCHC RDW Lymph % (Auto) Lymph # (Auto) [place] # (Auto) Eos # (Auto) Seg Neutrophils % Seg Neuts % (Manual) Lymphocytes % (Manual) Seg Neutrophils # Seg Neutrophils # Man Lymphocytes # (Manual) D-Dimer ABG pH POC ABG pO2 ABG pO2 ABG HCO3 ABG Hemoglobin ABG Oxyhemoglobin ABG Sodium ABG Potassium ABG Glucose Oxyhemoglobin Carboxyhemoglobin Sodium Potassium Chloride Carbon Dioxide BUN Creatinine Glucose POC Glucose 143 H 140 H 123 H Lactic Acid Calcium Phosphorus Magnesium AST ALT Troponin T C-Reactive Protein Total Protein Albumin Arterial Blood Glucose Arterial Blood Ionized Calcium Urine WBC (Auto) Urine Creatinine Valproic Acid 08/28/20 08/28/20 08/28/20 03:50 04:19 04:19 WBC RBC 2.80 L Hgb 7.8 L Hct 23.6 L MCH MCHC RDW 15.8 H Lymph % (Auto) Lymph # (Auto) [place] # (Auto) Eos # (Auto) Seg Neutrophils % Seg Neuts % (Manual) Lymphocytes % (Manual) Seg Neutrophils # Seg Neutrophils # Man Lymphocytes # (Manual) D-Dimer ABG pH 7.329 L POC ABG pO2 ABG pO2 76.7 L ABG HCO3 27.0 H ABG Hemoglobin 7.5 L ABG Oxyhemoglobin ABG Sodium ABG Potassium ABG Glucose Oxyhemoglobin 93.6 L Carboxyhemoglobin Sodium 135 L Potassium Chloride Carbon Dioxide BUN 64 H Creatinine 3.8 H Glucose 143 H POC Glucose Lactic Acid Calcium 8.0 L Phosphorus Magnesium AST ALT Troponin T C-Reactive Protein Total Protein 4.8 L Albumin 2.4 L Arterial Blood Glucose Arterial Blood Ionized Calcium Urine WBC (Auto) Urine Creatinine Valproic Acid 08/28/20 08/28/20 08/28/20 05:35 11:22 17:18 WBC RBC Hgb Hct MCH MCHC RDW Lymph % (Auto) Lymph # (Auto) [place] # (Auto) Eos # (Auto) Seg Neutrophils % Seg Neuts % (Manual) Lymphocytes % (Manual) Seg Neutrophils # Seg Neutrophils # Man Lymphocytes # (Manual) D-Dimer ABG pH POC ABG pO2 ABG pO2 ABG HCO3 ABG Hemoglobin ABG Oxyhemoglobin ABG Sodium ABG Potassium ABG Glucose Oxyhemoglobin Carboxyhemoglobin Sodium Potassium Chloride Carbon Dioxide BUN Creatinine Glucose POC Glucose 147 H 182 H 216 H Lactic Acid Calcium Phosphorus Magnesium AST ALT Troponin T C-Reactive Protein Total Protein Albumin Arterial Blood Glucose Arterial Blood Ionized Calcium Urine WBC (Auto) Urine Creatinine Valproic Acid 08/28/20 08/28/20 08/29/20 21:04 23:20 04:32 WBC RBC Hgb Hct MCH MCHC RDW Lymph % (Auto) Lymph # (Auto) [place] # (Auto) Eos # (Auto) Seg Neutrophils % Seg Neuts % (Manual) Lymphocytes % (Manual) Seg Neutrophils # Seg Neutrophils # Man Lymphocytes # (Manual) D-Dimer ABG pH POC ABG pO2 ABG pO2 ABG HCO3 ABG Hemoglobin ABG Oxyhemoglobin ABG Sodium ABG Potassium ABG Glucose Oxyhemoglobin Carboxyhemoglobin Sodium 135 L Potassium Chloride 96.0 L Carbon Dioxide BUN 67 H Creatinine 3.8 H Glucose 200 H POC Glucose 204 H 242 H Lactic Acid Calcium 8.2 L Phosphorus Magnesium AST ALT Troponin T C-Reactive Protein Total Protein Albumin Arterial Blood Glucose Arterial Blood Ionized Calcium Urine WBC (Auto) Urine Creatinine Valproic Acid 08/29/20 08/29/20 08/29/20 04:32 04:50 04:59 WBC RBC 3.25 L Hgb 9.0 L Hct 27.0 L MCH MCHC RDW 16.1 H Lymph % (Auto) Lymph # (Auto) [place] # (Auto) Eos # (Auto) Seg Neutrophils % Seg Neuts % (Manual) Lymphocytes % (Manual) Seg Neutrophils # Seg Neutrophils # Man Lymphocytes # (Manual) D-Dimer ABG pH POC ABG pO2 ABG pO2 ABG HCO3 ABG Hemoglobin 8.8 L ABG Oxyhemoglobin ABG Sodium ABG Potassium ABG Glucose Oxyhemoglobin Carboxyhemoglobin Sodium Potassium Chloride Carbon Dioxide BUN Creatinine Glucose POC Glucose 201 H Lactic Acid Calcium Phosphorus Magnesium AST ALT Troponin T C-Reactive Protein Total Protein Albumin Arterial Blood Glucose Arterial Blood Ionized Calcium Urine WBC (Auto) Urine Creatinine Valproic Acid 08/29/20 08/29/20 08/29/20 11:10 11:28 17:50 WBC RBC Hgb Hct MCH MCHC RDW Lymph % (Auto) Lymph # (Auto) [place] # (Auto) Eos # (Auto) Seg Neutrophils % Seg Neuts % (Manual) Lymphocytes % (Manual) Seg Neutrophils # Seg Neutrophils # Man Lymphocytes # (Manual) D-Dimer ABG pH POC ABG pO2 ABG pO2 78.7 L ABG HCO3 26.6 H ABG Hemoglobin 9.8 L ABG Oxyhemoglobin ABG Sodium ABG Potassium ABG Glucose Oxyhemoglobin 94.3 L Carboxyhemoglobin Sodium Potassium Chloride Carbon Dioxide BUN Creatinine Glucose POC Glucose 219 H 203 H Lactic Acid Calcium Phosphorus Magnesium AST ALT Troponin T C-Reactive Protein Total Protein Albumin Arterial Blood Glucose Arterial Blood Ionized Calcium Urine WBC (Auto) Urine Creatinine Valproic Acid 08/29/20 08/29/20 08/30/20 21:31 23:28 04:14 WBC RBC Hgb Hct MCH MCHC RDW Lymph % (Auto) Lymph # (Auto) [place] # (Auto) Eos # (Auto) Seg Neutrophils % Seg Neuts % (Manual) Lymphocytes % (Manual) Seg Neutrophils # Seg Neutrophils # Man Lymphocytes # (Manual) D-Dimer ABG pH POC ABG pO2 ABG pO2 ABG HCO3 ABG Hemoglobin ABG Oxyhemoglobin ABG Sodium ABG Potassium ABG Glucose Oxyhemoglobin Carboxyhemoglobin Sodium 132 L Potassium Chloride 94.8 L Carbon Dioxide BUN 68 H Creatinine 3.7 H Glucose 214 H POC Glucose 204 H 215 H Lactic Acid Calcium Phosphorus Magnesium AST ALT Troponin T C-Reactive Protein Total Protein Albumin Arterial Blood Glucose Arterial Blood Ionized Calcium Urine WBC (Auto) Urine Creatinine Valproic Acid 08/30/20 08/30/20 08/30/20 05:10 11:33 17:32 WBC RBC Hgb Hct MCH MCHC RDW Lymph % (Auto) Lymph # (Auto) [place] # (Auto) Eos # (Auto) Seg Neutrophils % Seg Neuts % (Manual) Lymphocytes % (Manual) Seg Neutrophils # Seg Neutrophils # Man Lymphocytes # (Manual) D-Dimer ABG pH POC ABG pO2 ABG pO2 ABG HCO3 ABG Hemoglobin ABG Oxyhemoglobin ABG Sodium ABG Potassium ABG Glucose Oxyhemoglobin Carboxyhemoglobin Sodium Potassium Chloride Carbon Dioxide BUN Creatinine Glucose POC Glucose 210 H 194 H 202 H Lactic Acid Calcium Phosphorus Magnesium AST ALT Troponin T C-Reactive Protein Total Protein Albumin Arterial Blood Glucose Arterial Blood Ionized Calcium Urine WBC (Auto) Urine Creatinine Valproic Acid 08/30/20 08/30/20 08/30/20 21:39 23:21 Unknown WBC RBC Hgb Hct MCH MCHC RDW Lymph % (Auto) Lymph # (Auto) [place] # (Auto) Eos # (Auto) Seg Neutrophils % Seg Neuts % (Manual) Lymphocytes % (Manual) Seg Neutrophils # Seg Neutrophils # Man Lymphocytes # (Manual) D-Dimer ABG pH POC ABG pO2 ABG pO2 99.0 H ABG HCO3 ABG Hemoglobin 9.8 L ABG Oxyhemoglobin ABG Sodium ABG Potassium ABG Glucose Oxyhemoglobin Carboxyhemoglobin Sodium Potassium Chloride Carbon Dioxide BUN Creatinine Glucose POC Glucose 199 H 209 H Lactic Acid Calcium Phosphorus Magnesium AST ALT Troponin T C-Reactive Protein Total Protein Albumin Arterial Blood Glucose Arterial Blood Ionized Calcium Urine WBC (Auto) Urine Creatinine Valproic Acid 08/31/20 08/31/20 08/31/20 04:10 05:19 10:57 WBC RBC Hgb Hct MCH MCHC RDW Lymph % (Auto) Lymph # (Auto) [place] # (Auto) Eos # (Auto) Seg Neutrophils % Seg Neuts % (Manual) Lymphocytes % (Manual) Seg Neutrophils # Seg Neutrophils # Man Lymphocytes # (Manual) D-Dimer ABG pH 7.451 H POC ABG pO2 ABG pO2 99.6 H ABG HCO3 ABG Hemoglobin 8.4 L ABG Oxyhemoglobin ABG Sodium ABG Potassium ABG Glucose Oxyhemoglobin Carboxyhemoglobin Sodium 133 L Potassium Chloride 96.4 L Carbon Dioxide BUN 74 H Creatinine 3.8 H Glucose 201 H POC Glucose 182 H Lactic Acid Calcium 7.6 L Phosphorus Magnesium AST ALT Troponin T C-Reactive Protein Total Protein Albumin Arterial Blood Glucose Arterial Blood Ionized Calcium Urine WBC (Auto) Urine Creatinine Valproic Acid 08/31/20 08/31/20 08/31/20 10:57 12:32 17:15 WBC 11.4 H RBC 3.24 L Hgb 8.5 L Hct 26.6 L MCH 26 L MCHC RDW 15.6 H Lymph % (Auto) Lymph # (Auto) [place] # (Auto) Eos # (Auto) Seg Neutrophils % Seg Neuts % (Manual) Lymphocytes % (Manual) Seg Neutrophils # Seg Neutrophils # Man Lymphocytes # (Manual) D-Dimer ABG pH POC ABG pO2 ABG pO2 ABG HCO3 ABG Hemoglobin ABG Oxyhemoglobin ABG Sodium ABG Potassium ABG Glucose Oxyhemoglobin Carboxyhemoglobin Sodium Potassium Chloride Carbon Dioxide BUN Creatinine Glucose POC Glucose 217 H 203 H Lactic Acid Calcium Phosphorus Magnesium AST ALT Troponin T C-Reactive Protein Total Protein Albumin Arterial Blood Glucose Arterial Blood Ionized Calcium Urine WBC (Auto) Urine Creatinine Valproic Acid 09/01/20 09/01/20 09/01/20 00:06 05:05 09:41 WBC RBC Hgb Hct MCH MCHC RDW Lymph % (Auto) Lymph # (Auto) [place] # (Auto) Eos # (Auto) Seg Neutrophils % Seg Neuts % (Manual) Lymphocytes % (Manual) Seg Neutrophils # Seg Neutrophils # Man Lymphocytes # (Manual) D-Dimer ABG pH POC ABG pO2 ABG pO2 ABG HCO3 ABG Hemoglobin ABG Oxyhemoglobin ABG Sodium ABG Potassium ABG Glucose Oxyhemoglobin Carboxyhemoglobin Sodium 134 L Potassium Chloride 95.2 L Carbon Dioxide BUN 81 H Creatinine 3.7 H Glucose 201 H POC Glucose 223 H 225 H Lactic Acid Calcium Phosphorus 4.60 H Magnesium 2.40 H AST ALT Troponin T C-Reactive Protein Total Protein Albumin Arterial Blood Glucose Arterial Blood Ionized Calcium Urine WBC (Auto) Urine Creatinine Valproic Acid 09/01/20 09/01/20 09/01/20 09:41 12:51 13:08 WBC 11.5 H RBC 3.58 L Hgb 9.2 L Hct 29.7 L MCH 26 L MCHC RDW 16.0 H Lymph % (Auto) Lymph # (Auto) [place] # (Auto) Eos # (Auto) Seg Neutrophils % Seg Neuts % (Manual) Lymphocytes % (Manual) Seg Neutrophils # Seg Neutrophils # Man Lymphocytes # (Manual) D-Dimer ABG pH 7.462 H POC ABG pO2 ABG pO2 ABG HCO3 ABG Hemoglobin 9.5 L ABG Oxyhemoglobin ABG Sodium 130.4 L ABG Potassium ABG Glucose 208 H Oxyhemoglobin Carboxyhemoglobin 0.4 L Sodium Potassium Chloride Carbon Dioxide BUN Creatinine Glucose POC Glucose 182 H Lactic Acid Calcium Phosphorus Magnesium AST ALT Troponin T C-Reactive Protein Total Protein Albumin Arterial Blood Glucose 208 H Arterial Blood Ionized Calcium 4.5 L Urine WBC (Auto) Urine Creatinine Valproic Acid 09/01/20 09/01/20 09/02/20 18:34 23:14 05:22 WBC RBC Hgb Hct MCH MCHC RDW Lymph % (Auto) Lymph # (Auto) [place] # (Auto) Eos # (Auto) Seg Neutrophils % Seg Neuts % (Manual) Lymphocytes % (Manual) Seg Neutrophils # Seg Neutrophils # Man Lymphocytes # (Manual) D-Dimer ABG pH POC ABG pO2 ABG pO2 ABG HCO3 ABG Hemoglobin ABG Oxyhemoglobin ABG Sodium ABG Potassium ABG Glucose Oxyhemoglobin Carboxyhemoglobin Sodium Potassium Chloride Carbon Dioxide BUN Creatinine Glucose POC Glucose 183 H 181 H 178 H Lactic Acid Calcium Phosphorus Magnesium AST ALT Troponin T C-Reactive Protein Total Protein Albumin Arterial Blood Glucose Arterial Blood Ionized Calcium Urine WBC (Auto) Urine Creatinine Valproic Acid 09/02/20 09/02/20 09/02/20 07:35 11:16 17:39 WBC RBC Hgb Hct MCH MCHC RDW Lymph % (Auto) Lymph # (Auto) [place] # (Auto) Eos # (Auto) Seg Neutrophils % Seg Neuts % (Manual) Lymphocytes % (Manual) Seg Neutrophils # Seg Neutrophils # Man Lymphocytes # (Manual) D-Dimer ABG pH POC ABG pO2 ABG pO2 ABG HCO3 ABG Hemoglobin ABG Oxyhemoglobin ABG Sodium ABG Potassium ABG Glucose Oxyhemoglobin Carboxyhemoglobin Sodium 135 L Potassium Chloride 96.0 L Carbon Dioxide BUN 88 H Creatinine 3.7 H Glucose 187 H POC Glucose 228 H 165 H Lactic Acid Calcium Phosphorus Magnesium AST ALT Troponin T C-Reactive Protein Total Protein Albumin Arterial Blood Glucose Arterial Blood Ionized Calcium Urine WBC (Auto) Urine Creatinine Valproic Acid 09/02/20 09/03/20 09/03/20 23:24 05:35 08:31 WBC 18.5 H RBC 2.80 L Hgb 7.8 L Hct 22.7 L D MCH MCHC 35 H RDW 15.3 H Lymph % (Auto) Lymph # (Auto) [place] # (Auto) Eos # (Auto) Seg Neutrophils % Seg Neuts % (Manual) Lymphocytes % (Manual) Seg Neutrophils # Seg Neutrophils # Man Lymphocytes # (Manual) D-Dimer ABG pH POC ABG pO2 ABG pO2 ABG HCO3 ABG Hemoglobin ABG Oxyhemoglobin ABG Sodium ABG Potassium ABG Glucose Oxyhemoglobin Carboxyhemoglobin Sodium Potassium Chloride Carbon Dioxide BUN Creatinine Glucose POC Glucose 167 H 180 H Lactic Acid Calcium Phosphorus Magnesium AST ALT Troponin T C-Reactive Protein Total Protein Albumin Arterial Blood Glucose Arterial Blood Ionized Calcium Urine WBC (Auto) Urine Creatinine Valproic Acid 09/03/20 09/03/20 09/03/20 08:31 12:02 17:05 WBC RBC Hgb Hct MCH MCHC RDW Lymph % (Auto) Lymph # (Auto) [place] # (Auto) Eos # (Auto) Seg Neutrophils % Seg Neuts % (Manual) Lymphocytes % (Manual) Seg Neutrophils # Seg Neutrophils # Man Lymphocytes # (Manual) D-Dimer ABG pH POC ABG pO2 ABG pO2 ABG HCO3 ABG Hemoglobin ABG Oxyhemoglobin ABG Sodium ABG Potassium ABG Glucose Oxyhemoglobin Carboxyhemoglobin Sodium 134 L Potassium Chloride 96.6 L Carbon Dioxide BUN 96 H Creatinine 3.7 H Glucose 190 H POC Glucose 156 H 150 H Lactic Acid Calcium 8.1 L Phosphorus Magnesium AST ALT Troponin T C-Reactive Protein Total Protein Albumin Arterial Blood Glucose Arterial Blood Ionized Calcium Urine WBC (Auto) Urine Creatinine Valproic Acid 09/03/20 09/04/20 09/04/20 23:31 05:23 09:49 WBC RBC Hgb Hct MCH MCHC RDW Lymph % (Auto) Lymph # (Auto) [place] # (Auto) Eos # (Auto) Seg Neutrophils % Seg Neuts % (Manual) Lymphocytes % (Manual) Seg Neutrophils # Seg Neutrophils # Man Lymphocytes # (Manual) D-Dimer ABG pH POC ABG pO2 ABG pO2 ABG HCO3 ABG Hemoglobin ABG Oxyhemoglobin ABG Sodium ABG Potassium ABG Glucose Oxyhemoglobin Carboxyhemoglobin Sodium Potassium Chloride 97.9 L Carbon Dioxide BUN 98 H Creatinine 4.0 H Glucose 171 H POC Glucose 143 H 165 H Lactic Acid Calcium Phosphorus Magnesium AST ALT Troponin T C-Reactive Protein Total Protein Albumin Arterial Blood Glucose Arterial Blood Ionized Calcium Urine WBC (Auto) Urine Creatinine Valproic Acid 09/04/20 09/04/20 09/04/20 12:05 17:46 21:25 WBC RBC Hgb Hct MCH MCHC RDW Lymph % (Auto) Lymph # (Auto) [place] # (Auto) Eos # (Auto) Seg Neutrophils % Seg Neuts % (Manual) Lymphocytes % (Manual) Seg Neutrophils # Seg Neutrophils # Man Lymphocytes # (Manual) D-Dimer ABG pH POC ABG pO2 ABG pO2 ABG HCO3 ABG Hemoglobin ABG Oxyhemoglobin ABG Sodium ABG Potassium ABG Glucose Oxyhemoglobin Carboxyhemoglobin Sodium Potassium Chloride Carbon Dioxide BUN Creatinine Glucose POC Glucose 200 H 184 H 177 H Lactic Acid Calcium Phosphorus Magnesium AST ALT Troponin T C-Reactive Protein Total Protein Albumin Arterial Blood Glucose Arterial Blood Ionized Calcium Urine WBC (Auto) Urine Creatinine Valproic Acid 09/05/20 09/05/20 09/05/20 00:06 04:34 08:40 WBC RBC Hgb Hct MCH MCHC RDW Lymph % (Auto) Lymph # (Auto) [place] # (Auto) Eos # (Auto) Seg Neutrophils % Seg Neuts % (Manual) Lymphocytes % (Manual) Seg Neutrophils # Seg Neutrophils # Man Lymphocytes # (Manual) D-Dimer ABG pH POC ABG pO2 ABG pO2 ABG HCO3 ABG Hemoglobin ABG Oxyhemoglobin ABG Sodium ABG Potassium ABG Glucose Oxyhemoglobin Carboxyhemoglobin Sodium 133 L Potassium Chloride 92.5 L Carbon Dioxide BUN 99 H Creatinine 3.6 H Glucose 167 H POC Glucose 198 H 189 H Lactic Acid Calcium Phosphorus Magnesium AST ALT Troponin T C-Reactive Protein Total Protein Albumin Arterial Blood Glucose Arterial Blood Ionized Calcium Urine WBC (Auto) Urine Creatinine Valproic Acid 09/05/20 09/05/20 09/05/20 11:28 17:54 23:28 WBC RBC Hgb Hct MCH MCHC RDW Lymph % (Auto) Lymph # (Auto) [place] # (Auto) Eos # (Auto) Seg Neutrophils % Seg Neuts % (Manual) Lymphocytes % (Manual) Seg Neutrophils # Seg Neutrophils # Man Lymphocytes # (Manual) D-Dimer ABG pH POC ABG pO2 ABG pO2 ABG HCO3 ABG Hemoglobin ABG Oxyhemoglobin ABG Sodium ABG Potassium ABG Glucose Oxyhemoglobin Carboxyhemoglobin Sodium Potassium Chloride Carbon Dioxide BUN Creatinine Glucose POC Glucose 171 H 169 H 163 H Lactic Acid Calcium Phosphorus Magnesium AST ALT Troponin T C-Reactive Protein Total Protein Albumin Arterial Blood Glucose Arterial Blood Ionized Calcium Urine WBC (Auto) Urine Creatinine Valproic Acid 09/06/20 09/06/20 09/06/20 05:17 11:55 18:07 WBC RBC Hgb Hct MCH MCHC RDW Lymph % (Auto) Lymph # (Auto) [place] # (Auto) Eos # (Auto) Seg Neutrophils % Seg Neuts % (Manual) Lymphocytes % (Manual) Seg Neutrophils # Seg Neutrophils # Man Lymphocytes # (Manual) D-Dimer ABG pH POC ABG pO2 ABG pO2 ABG HCO3 ABG Hemoglobin ABG Oxyhemoglobin ABG Sodium ABG Potassium ABG Glucose Oxyhemoglobin Carboxyhemoglobin Sodium Potassium Chloride Carbon Dioxide BUN Creatinine Glucose POC Glucose 151 H 175 H 182 H Lactic Acid Calcium Phosphorus Magnesium AST ALT Troponin T C-Reactive Protein Total Protein Albumin Arterial Blood Glucose Arterial Blood Ionized Calcium Urine WBC (Auto) Urine Creatinine Valproic Acid 09/06/20 09/06/20 09/06/20 23:19 Unknown Unknown WBC 17.3 H RBC 3.25 L Hgb 8.7 L Hct 26.2 L MCH 27 L MCHC RDW 15.6 H Lymph % (Auto) 4.4 L Lymph # (Auto) 0.8 L [place] # (Auto) Eos # (Auto) Seg Neutrophils % 89.5 H Seg Neuts % (Manual) Lymphocytes % (Manual) Seg Neutrophils # 15.5 H Seg Neutrophils # Man Lymphocytes # (Manual) D-Dimer ABG pH POC ABG pO2 ABG pO2 ABG HCO3 ABG Hemoglobin ABG Oxyhemoglobin ABG Sodium ABG Potassium ABG Glucose Oxyhemoglobin Carboxyhemoglobin Sodium 132 L Potassium Chloride 91.9 L Carbon Dioxide BUN 104 H Creatinine 3.8 H Glucose 177 H POC Glucose 160 H Lactic Acid Calcium Phosphorus Magnesium 2.60 H AST ALT Troponin T C-Reactive Protein Total Protein Albumin Arterial Blood Glucose Arterial Blood Ionized Calcium Urine WBC (Auto) Urine Creatinine Valproic Acid 09/07/20 09/07/20 09/07/20 04:00 05:36 12:09 WBC RBC Hgb Hct MCH MCHC RDW Lymph % (Auto) Lymph # (Auto) [place] # (Auto) Eos # (Auto) Seg Neutrophils % Seg Neuts % (Manual) Lymphocytes % (Manual) Seg Neutrophils # Seg Neutrophils # Man Lymphocytes # (Manual) D-Dimer ABG pH POC ABG pO2 ABG pO2 ABG HCO3 ABG Hemoglobin ABG Oxyhemoglobin ABG Sodium ABG Potassium ABG Glucose Oxyhemoglobin Carboxyhemoglobin Sodium Potassium Chloride 95.6 L Carbon Dioxide BUN 108 H Creatinine 3.9 H Glucose 129 H POC Glucose 151 H 172 H Lactic Acid Calcium Phosphorus Magnesium AST ALT Troponin T C-Reactive Protein Total Protein Albumin Arterial Blood Glucose Arterial Blood Ionized Calcium Urine WBC (Auto) Urine Creatinine Valproic Acid 09/07/20 09/07/20 09/07/20 15:28 18:00 21:21 WBC RBC Hgb Hct MCH MCHC RDW Lymph % (Auto) Lymph # (Auto) [place] # (Auto) Eos # (Auto) Seg Neutrophils % Seg Neuts % (Manual) Lymphocytes % (Manual) Seg Neutrophils # Seg Neutrophils # Man Lymphocytes # (Manual) D-Dimer ABG pH POC ABG pO2 ABG pO2 ABG HCO3 ABG Hemoglobin ABG Oxyhemoglobin ABG Sodium ABG Potassium ABG Glucose Oxyhemoglobin Carboxyhemoglobin Sodium Potassium Chloride Carbon Dioxide BUN Creatinine Glucose POC Glucose 153 H 112 H Lactic Acid Calcium Phosphorus Magnesium AST ALT Troponin T C-Reactive Protein Total Protein Albumin Arterial Blood Glucose Arterial Blood Ionized Calcium Urine WBC (Auto) Urine Creatinine Valproic Acid 42.9 L 09/07/20 09/07/20 09/08/20 23:09 Unknown 05:08 WBC 13.6 H RBC 3.14 L Hgb 8.1 L Hct 25.2 L MCH 26 L MCHC RDW 15.5 H Lymph % (Auto) 6.0 L Lymph # (Auto) 0.8 L [place] # (Auto) Eos # (Auto) 0.5 H Seg Neutrophils % 85.5 H Seg Neuts % (Manual) Lymphocytes % (Manual) Seg Neutrophils # 11.6 H Seg Neutrophils # Man Lymphocytes # (Manual) D-Dimer ABG pH POC ABG pO2 ABG pO2 ABG HCO3 ABG Hemoglobin ABG Oxyhemoglobin ABG Sodium ABG Potassium ABG Glucose Oxyhemoglobin Carboxyhemoglobin Sodium Potassium Chloride Carbon Dioxide BUN Creatinine Glucose POC Glucose 149 H 125 H Lactic Acid Calcium Phosphorus Magnesium AST ALT Troponin T C-Reactive Protein Total Protein Albumin Arterial Blood Glucose Arterial Blood Ionized Calcium Urine WBC (Auto) Urine Creatinine Valproic Acid 09/08/20 09/08/20 09/09/20 06:00 23:25 04:55 WBC RBC Hgb Hct MCH MCHC RDW Lymph % (Auto) Lymph # (Auto) [place] # (Auto) Eos # (Auto) Seg Neutrophils % Seg Neuts % (Manual) Lymphocytes % (Manual) Seg Neutrophils # Seg Neutrophils # Man Lymphocytes # (Manual) D-Dimer ABG pH POC ABG pO2 ABG pO2 ABG HCO3 ABG Hemoglobin ABG Oxyhemoglobin ABG Sodium ABG Potassium ABG Glucose Oxyhemoglobin Carboxyhemoglobin Sodium 135 L Potassium Chloride 94.0 L 97.8 L Carbon Dioxide BUN 110 H 113 H Creatinine 3.7 H 3.7 H Glucose 127 H 156 H POC Glucose 135 H Lactic Acid Calcium 7.8 L Phosphorus Magnesium AST ALT Troponin T C-Reactive Protein Total Protein Albumin Arterial Blood Glucose Arterial Blood Ionized Calcium Urine WBC (Auto) Urine Creatinine Valproic Acid 09/09/20 09/09/20 09/09/20 05:10 11:39 11:50 WBC RBC Hgb Hct MCH MCHC RDW Lymph % (Auto) Lymph # (Auto) [place] # (Auto) Eos # (Auto) Seg Neutrophils % Seg Neuts % (Manual) Lymphocytes % (Manual) Seg Neutrophils # Seg Neutrophils # Man Lymphocytes # (Manual) D-Dimer ABG pH POC ABG pO2 ABG pO2 ABG HCO3 ABG Hemoglobin 6.3 L ABG Oxyhemoglobin ABG Sodium ABG Potassium ABG Glucose Oxyhemoglobin Carboxyhemoglobin Sodium Potassium Chloride Carbon Dioxide BUN Creatinine Glucose POC Glucose 177 H 127 H Lactic Acid Calcium Phosphorus Magnesium AST ALT Troponin T C-Reactive Protein Total Protein Albumin Arterial Blood Glucose Arterial Blood Ionized Calcium Urine WBC (Auto) Urine Creatinine Valproic Acid 09/09/20 09/09/20 09/09/20 12:23 17:37 23:15 WBC 14.8 H RBC 2.69 L Hgb 7.1 L Hct 22.7 L MCH 26 L MCHC RDW 15.5 H Lymph % (Auto) 2.9 L Lymph # (Auto) 0.4 L [place] # (Auto) 1.0 H Eos # (Auto) 0.5 H Seg Neutrophils % 86.8 H Seg Neuts % (Manual) Lymphocytes % (Manual) Seg Neutrophils # 12.8 H Seg Neutrophils # Man Lymphocytes # (Manual) D-Dimer ABG pH POC ABG pO2 ABG pO2 ABG HCO3 ABG Hemoglobin ABG Oxyhemoglobin ABG Sodium ABG Potassium ABG Glucose Oxyhemoglobin Carboxyhemoglobin Sodium Potassium Chloride Carbon Dioxide BUN Creatinine Glucose POC Glucose 138 H 157 H Lactic Acid Calcium Phosphorus Magnesium AST ALT Troponin T C-Reactive Protein Total Protein Albumin Arterial Blood Glucose Arterial Blood Ionized Calcium Urine WBC (Auto) Urine Creatinine Valproic Acid 09/10/20 09/10/20 09/10/20 03:19 05:17 06:50 WBC RBC Hgb Hct MCH MCHC RDW Lymph % (Auto) Lymph # (Auto) [place] # (Auto) Eos # (Auto) Seg Neutrophils % Seg Neuts % (Manual) Lymphocytes % (Manual) Seg Neutrophils # Seg Neutrophils # Man Lymphocytes # (Manual) D-Dimer ABG pH POC ABG pO2 ABG pO2 ABG HCO3 ABG Hemoglobin 8.4 L ABG Oxyhemoglobin ABG Sodium 130.4 L ABG Potassium 3.3 L ABG Glucose 158 H Oxyhemoglobin Carboxyhemoglobin Sodium Potassium 3.5 L Chloride Carbon Dioxide BUN 111 H Creatinine 3.5 H Glucose 133 H POC Glucose 137 H Lactic Acid Calcium Phosphorus Magnesium AST ALT Troponin T C-Reactive Protein Total Protein Albumin Arterial Blood Glucose 158 H Arterial Blood Ionized Calcium 4.5 L Urine WBC (Auto) Urine Creatinine Valproic Acid 09/10/20 09/10/20 09/10/20 06:50 11:38 17:49 WBC 12.7 H RBC 2.78 L Hgb 7.1 L Hct 22.3 L MCH 26 L MCHC RDW 15.6 H Lymph % (Auto) 4.0 L Lymph # (Auto) 0.5 L [place] # (Auto) Eos # (Auto) 0.5 H Seg Neutrophils % 86.4 H Seg Neuts % (Manual) Lymphocytes % (Manual) Seg Neutrophils # 11.0 H Seg Neutrophils # Man Lymphocytes # (Manual) D-Dimer ABG pH POC ABG pO2 ABG pO2 ABG HCO3 ABG Hemoglobin ABG Oxyhemoglobin ABG Sodium ABG Potassium ABG Glucose Oxyhemoglobin Carboxyhemoglobin Sodium Potassium Chloride Carbon Dioxide BUN Creatinine Glucose POC Glucose 145 H 140 H Lactic Acid Calcium Phosphorus Magnesium AST ALT Troponin T C-Reactive Protein Total Protein Albumin Arterial Blood Glucose Arterial Blood Ionized Calcium Urine WBC (Auto) Urine Creatinine Valproic Acid 09/10/20 09/10/20 09/11/20 21:17 23:31 04:30 WBC RBC Hgb Hct MCH MCHC RDW Lymph % (Auto) Lymph # (Auto) [place] # (Auto) Eos # (Auto) Seg Neutrophils % Seg Neuts % (Manual) Lymphocytes % (Manual) Seg Neutrophils # Seg Neutrophils # Man Lymphocytes # (Manual) D-Dimer ABG pH POC ABG pO2 ABG pO2 ABG HCO3 ABG Hemoglobin ABG Oxyhemoglobin ABG Sodium ABG Potassium ABG Glucose Oxyhemoglobin Carboxyhemoglobin Sodium Potassium Chloride Carbon Dioxide BUN 109 H Creatinine 3.4 H Glucose 153 H POC Glucose 139 H 146 H Lactic Acid Calcium 7.9 L Phosphorus Magnesium AST ALT Troponin T C-Reactive Protein Total Protein Albumin Arterial Blood Glucose Arterial Blood Ionized Calcium Urine WBC (Auto) Urine Creatinine Valproic Acid 09/11/20 05:25 WBC RBC Hgb Hct MCH MCHC RDW Lymph % (Auto) Lymph # (Auto) [place] # (Auto) Eos # (Auto) Seg Neutrophils % Seg Neuts % (Manual) Lymphocytes % (Manual) Seg Neutrophils # Seg Neutrophils # Man Lymphocytes # (Manual) D-Dimer ABG pH POC ABG pO2 ABG pO2 ABG HCO3 ABG Hemoglobin ABG Oxyhemoglobin ABG Sodium ABG Potassium ABG Glucose Oxyhemoglobin Carboxyhemoglobin Sodium Potassium Chloride Carbon Dioxide BUN Creatinine Glucose POC Glucose 139 H Lactic Acid Calcium Phosphorus Magnesium AST ALT Troponin T C-Reactive Protein Total Protein Albumin Arterial Blood Glucose Arterial Blood Ionized Calcium Urine WBC (Auto) Urine Creatinine Valproic Acid Allied health notes reviewed: RT
[2020-09-11] MEDS: ASPIRIN 81 MG TAB CHEW PO SCH (10:39)
[2020-09-11] MEDS: levETIRAcetam 500 MG in DEXTROSE 5% IN WATER 100 ML IV SCH (10:39)
[2020-09-11] MEDS: FAMOTIDINE 20 MG TAB PO SCH (10:39)
[2020-09-11] MEDS: HEPARIN 5,000 UNIT/1 ML VIAL SUB-Q SCH (10:39)
[2020-09-11] MEDS: TAMSULOSIN 0.4 MG CAP PO SCH (10:39)
[2020-09-11] MEDS: hydrALAZINE 20 MG/1 ML INJ IV PRN (12:16)
--- NOTE | 2020-09-11 12:23 | Progress Note ---
Assessment and Plan 1. Acute kidney injury: Vasomotor FLORIDALMA superimposed on CKD stage 4 in the setting Cardiac arrest. Low FeNa. CT abdomen negative for hydro. Monitor renal function. Creatinine level around 3.6. Remain non-oliguric. Renal prognosis is guarded. Avoid nephrotoxic agents. Meds dosage based on GFR. Monitor for [employer] needs. 2. FEN: Hypokalemia, replete K as needed. Metabolic acidosis, improved. Monitor lytes. 3. Acute respiratory failure with hypoxia: 2/2 b/p pneumonia. Covid test negative. Intubated, on vent. Followed by Pulmonary. 4. S/p OOH Cardiac arrest: Prolonged downtime. Followed by Cards. 5. Bladder retention: Pt has Foreman catheter now. 6. Diabetes mellitus type 2: Follow blood glucose. 7. Bradycardia: Was on Dopamine. Monitor. 8. Hypertension: Monitor BP. 9. Anemia, POA: Monitor. 10. Anoxic encephalopathy: Seen by Neuro. Family is aware of slim / poor prognosis. 11. Facial twitching: Vimpat. D/w Son at the bedside (09/09) and he is going to talk to other family members about withdrawing care. Await family decision. Subjective: Patient was seen and examined at the bedside. Examination: General appearance: well-developed, well-nourished, appears stated age, intubated, on vent HEENT: ATNC, pupils not reacting to light Neck: supple Respiratory: coarse breath sounds Cardiology: regular, S1S2, no murmur Gastrointestinal: soft, bowel sounds heard, not tender Integumentary: no rash, warm and dry Neurologic: not responding Ext: no edema : foreman catheter Subjective Date of service: 09/11/20 Principal diagnosis: Ac. hypoxemic resp failure; Cardiac arrest; AMS; AE-CHF; Hyperkalemia; FLORIDALMA Objective - Vital Signs Vital signs: Vital Signs - 12hr 09/11/20 09/11/20 09/11/20 01:00 02:00 03:00 Temperature Pulse Rate 76 86 76 Pulse Rate [ From Monitor] Respiratory 18 25 H 15 Rate Blood Pressure 160/63 166/64 134/51 O2 Sat by Pulse 95 97 Oximetry 09/11/20 09/11/20 09/11/20 03:25 03:39 04:00 Temperature 99.8 F H Pulse Rate 71 72 Pulse Rate [ 75 From Monitor] Respiratory 16 Rate Blood Pressure 130/45 126/48 O2 Sat by Pulse 98 97 Oximetry 09/11/20 09/11/20 09/11/20 05:00 06:00 07:00 Temperature Pulse Rate 75 69 73 Pulse Rate [ From Monitor] Respiratory 13 19 19 Rate Blood Pressure 148/54 128/49 160/60 O2 Sat by Pulse 97 Oximetry 09/11/20 09/11/20 09/11/20 07:30 07:56 08:00 Temperature 99.4 F Pulse Rate 74 73 Pulse Rate [ From Monitor] Respiratory 23 Rate Blood Pressure 126/46 126/46 O2 Sat by Pulse 99 97 Oximetry 09/11/20 09/11/20 09/11/20 08:05 09:00 11:23 Temperature Pulse Rate 70 67 71 Pulse Rate [ From Monitor] Respiratory 23 19 23 Rate Blood Pressure 149/53 130/47 156/59 O2 Sat by Pulse 99 100 99 Oximetry 09/11/20 12:16 Temperature Pulse Rate 72 Pulse Rate [ From Monitor] Respiratory Rate Blood Pressure 171/63 O2 Sat by Pulse Oximetry - Lab 09/10/20 06:50 09/11/20 04:30 Most recent lab results ABG pH 7.447 (7.320-7.450) 09/10/20 03:19 ABG pCO2 38.1 mm Hg 09/09/20 11:50 ABG pO2 87.6 mm Hg (80.0-90.0) 09/09/20 11:50 ABG HCO3 22.7 mmol/L (20.0-26.0) 09/09/20 11:50 ABG O2 Saturation 97.5 (0-100) 09/10/20 03:19 Calcium 7.9 mg/dL (8.4-10.2) L 09/11/20 04:30 Phosphorus 4.60 mg/dL (2.5-4.5) H 09/01/20 09:41 Magnesium 2.60 mg/dL (1.7-2.3) H 09/06/20 Unknown Urine Creatinine 67.4 mg/dL (0.1-20.0) H 08/26/20 17:00 Urine Sodium 12 mmol/L 08/26/20 17:00 Medications & Allergies - Medications Allergies/Adverse Reactions: Allergies No Known Allergies Allergy (Verified 07/31/18 07:06) Home Medications: Home Medications Medication Instructions Recorded Confirmed Last Taken Type Albuterol Mdi (or & Nicu Only) 2 puff IH QID PRN #1 inhalation 08/07/18 09/06/20 Unknown Rx [ProAir HFA Inhaler] Sucralfate [Carafate] 1 gm PO ACHS #30 tablet 08/07/18 09/06/20 03/13/20 Rx Insulin Regular, Human [HumuLIN R] 0 unit SQ AC #1 vial 08/11/18 09/06/20 Unknown Rx Labetalol HCl [Labetalol 300mg TAB] 300 mg PO BID #60 tablet 11/11/19 09/06/20 03/14/20 Rx Furosemide [Lasix TAB] 80 mg PO DAILY #14 tablet 03/27/20 09/06/20 Unknown Rx Insulin Glargine [Lantus VIAL] 15 units SUB-Q QAM #1 vial 03/27/20 09/06/20 Unknown Rx amLODIPine 10 mg PO QDAY #30 tablet 03/27/20 09/06/20 Unknown Rx Levemir Flextouch 10 units SUB-Q DAILY 09/06/20 09/06/20 Unknown History Levothyroxine 75 mg PO DAILY 09/06/20 09/06/20 Unknown History Active Medications: Generic Name Dose Route Start Last Admin Trade Name Freq PRN Reason Stop Dose Admin Albuterol 2.5 mg 08/25/20 14:55 Albuterol 2.5 Mg/3 Ml Nebu IH Q3HRT PRN Shortness Of Breath Lipase/Protease/Amylase 1 each 08/26/20 12:15 Lipase 10,500/Protease 25,000/Amylase 43,750 (Units) Dr Gu FEEDTUBE PRN PRN For Clogged Feeding Tube Aspirin 81 mg 08/27/20 10:00 09/11/20 10:39 Aspirin 81 Mg Tab Chew PO 81 mg QDAY TERA Administration Atorvastatin Calcium 40 mg 08/26/20 22:00 09/10/20 21:48 Atorvastatin 40 Mg Tab PO 40 mg QHS TERA Administration Atropine Sulfate 0.5 mg 09/05/20 13:09 09/05/20 13:44 Atropine 0.1% (1 Mg/10 Ml) Cardiac Syringe IV 0.5 mg Q5MIN PRN Administration Bradycardia Dextrose 50 ml 08/26/20 19:18 Dextrose 50% In Water (25gm) 50 Ml Syringe IV Q30MIN PRN Hypoglycemia Protocol Famotidine 20 mg 08/28/20 10:00 09/11/20 10:39 Famotidine 20 Mg Tab PO 20 mg DAILY TERA Administration Heparin Sodium (Porcine) 5,000 unit 08/26/20 22:00 09/11/20 10:39 Heparin 5,000 Unit/1 Ml Vial SUB-Q 5,000 unit Q12HR TERA Administration Hydralazine HCl 10 mg 08/26/20 01:20 09/11/20 12:16 Hydralazine 20 Mg/1 Ml Inj IV 10 mg Q4HR PRN Administration Blood Pressure Hydrophilic Ointment 1 applic 08/25/20 11:07 08/25/20 11:57 Lip Therapy Vaseline TP 1 applic Q2HR PRN Administration Dry Lips Levetiracetam 500 mg/ Dextrose 105 mls @ 400 mls/hr 09/04/20 11:00 09/11/20 10:39 IV 400 mls/hr Q12HR TERA Administration Valproate Sodium 750 mg/ 107.5 mls @ 100 mls/hr 09/05/20 14:00 09/11/20 05:53 Sodium Chloride IV 100 mls/hr Q8HR TERA Administration Dopamine HCl/Dextrose 800 mg in 250 mls @ 3.563 mls/hr 09/05/20 15:00 09/09/20 07:30 Intropin Drip 800 Mg/D5w 250 Ml IV 0 mcg/kg/min TITR TERA 0 mls/hr Titration Protocol 2 MCG/KG/MIN Midazolam HCl 100 mg/ Sodium 100 mls @ 1 mls/hr 09/06/20 14:00 09/09/20 10:30 Chloride IV 0 mg/hr TITR TERA 0 mls/hr Titration Protocol 1 MG/HR Lacosamide 200 mg/ Sodium 120 mls @ 100 mls/hr 09/11/20 18:00 Chloride IV Q12H TERA Insulin Glargine 25 units 09/01/20 22:00 09/10/20 21:48 Insulin Glargine 100 Units/Ml SUB-Q 25 units QHS TERA Administration Insulin Human Lispro 0 unit 08/27/20 12:00 09/11/20 12:17 Insulin Lispro 100 Unit/Ml SUB-Q Not Given Q6HR [facility] Protocol Levothyroxine Sodium 75 mcg 09/10/20 09:00 09/11/20 05:52 Levothyroxine 75 Mcg Tab PO 75 mcg DAILY@0600 TERA Administration Lorazepam 2 mg 09/03/20 15:12 09/05/20 13:41 Lorazepam 2 Mg/Ml Vial IV 2 mg Q1H PRN Administration Seizures Multi-Ingred Cream/Lotion/Oil/Oint 1 applic 08/25/20 11:07 Mineral Oil/Petrolatum, White Ophth Oint 3.5 Gm OU Q4HR PRN Dry Eye(s) Simple Syrup 15 ml 08/26/20 12:15 Simple Syrup 15 Ml FEEDTUBE PRN PRN Hypoglycemia Simple Syrup 30 ml 08/26/20 12:15 Simple Syrup 15 Ml FEEDTUBE PRN PRN Hypoglycemia Sodium Bicarbonate 325 mg 08/26/20 12:15 Sodium Bicarbonate 325 Mg Tab FEEDTUBE PRN PRN For Clogged Feeding Tube Sodium Chloride 10 ml 08/25/20 22:00 09/11/20 10:39 Sodium Chloride 0.9% 10 Ml Flush Syringe IV 10 ml BID TERA Administration Sodium Chloride 10 ml 08/25/20 14:55 08/29/20 04:05 Sodium Chloride 0.9% 10 Ml Flush Syringe IV 10 ml PRN PRN Administration LINE FLUSH Tamsulosin HCl 0.8 mg 09/06/20 10:00 09/11/20 10:39 Tamsulosin 0.4 Mg Cap PO 0.8 mg QDAY TERA Administration
--- NOTE | 2020-09-11 13:41 | Progress Note ---
<JENNY AMOS Veronique - Last Filed: 09/11/20 16:19> Assessment and Plan Assessment and plan: This is a 75-year-old female with CHF, OHS DM, CKD, morbid obesity, GERD, hypertension, chronic respiratory failure admitted s/p cardiac arrest NEURO Anoxic encephalopathy -Neurology consulted, appreciate recommendations -08/[address] head shows no CT evidence of acute abnormality -08/28 MRI brain without contrast -08/30 EEG completed see report Seizure -Keppra, vimpat and depakote -Seizure/aspiration precautions -opens eyes; PERRL; neg threat; pos cough; withdrawal to painful stimuli x 4 extremitires Pt has 8 living children- daughter at bedside and has expressed that the family has decided to pursue hospice are- [employer] aware DNR Case Management following 1600 UPDATE- pt will discharge from ICU to inpt hospice today family at bedside CV- bradycardia resolved SR- no further jo ann; rate in 70's monitor QT given sz medications had been on dopamine gtt; has PRN atropine if needed S/p cardiac arrest with prolonged down time- see ER note -ddimer elevated on admit following cardiac arrest -Cardiology has seen and signed off- call if needed -08/25 echocardiogram shows LVEF 40 to 45%, LV normal size, LV systolic function mildly decreased, mild diastolic dysfunction, mildly dilated right ventricle, pulmonary hypertension RVSP 45 mmHg -asa and statin Hypertension -home norvasc -Blood pressure monitoring per protocol -PRN hydral for HTN RESP Acute hypoxic respiratory failure; chronic resp failure -Chronic respiratory insufficiency at home with 3 L oxygen via nasal cannula -remains intubated and ventilated -Wean as tolerated; trend pulse ox -CCM following -VAP bundle -nebs as needed Multifocal pneumonia/ ? aspiration event -08/25 CXR shows worsening patchy bilateral pulmonary opacities -08/25 CTA chest shows no evidence of pulmonary embolism, bilateral pulmonary processes with large bilateral pleural effusions, pneumonia is a concern, pulmonary edema could be a similar appearance versus pulmonary edema GI protein roberto carlos malnutrition; diarrhea PPI for GI prophylaxis TF per nutrition BMS for diarrhea adding fiber to diet FLORIDALMA on CKD secondary to patient under nephropathy; hypok -Nephrology consulted, patient recommendations -Daily weights -Avoid nephrotoxic medications; avoid NITIN/ARB -trend and replace electrolytes as needed -Trend Cr -foreman in place for strict I/O has had urinary retention when foreman was d/c and bladder scanning was done flomax d/c now that foreman has been placed -pt was net pos 112 ml over the last 24 hours HEME Anemia -Admit H/H 8.6/27.8 -Transfuse for hemoglobin less than 7 -Trend CBC -no bleeding on exam VTE prophylaxis with SCD and SQH ID pneumonia- improved -trend WBC and temp curve -afebrile -on no antibiotics -covid neg on admit ENDO Diabetes mellitus -SSI and scheduled lantus -Accu-Cheks every 6h -avoid hypoglycemia -hx obesity DVT/GI prophylaxis: SCDs to bilateral lower extremities heparin subcu, PPI Disposition: ICU Lines: PIV; foreman The high probability of a clinically significant, sudden or life threatening deterioration of the [cardiac, pulmonary, neuro, renal, infectious disease] system(s) required my full and direct attention, intervention and personal management. The aggregate critical care time was [35] minutes. This time is in addition to time spent performing reported procedures but includes the following: [x] Data Review and interpretation [x] Patient assessment and monitoring of vital signs [x] Documentation [x] Medication orders and management HPI This is a 69-year-old female with OHS, DM, CKD stage IV, morbid obesity CHF, GERD, HTN, chronic respiratory failure on 3 L of home oxygen via nasal cannula who presented to the emergency department on 08/25 after being found down unresponsive at 0950 hours by family and upon EMS arrival she was unresponsive and asystolic arrest. Patient was treated with ACLS protocol with eventual ROSC after at least 15 minutes of ACLS and patient was transported to [facility] In the emergency department patient was found to have acute hypoxic respiratory failure and subsequently intubated on vasopressor support, she underwent a CXR which showed bilateral pneumonia and exam is consistent with SIRS. CCM and cardiology were consulted and patient was admitted to the hospital service with acute hypoxic respiratory failure, anoxic encephalopathy, s/p cardiac arrest, multifocal pneumonia, FLORIDALMA on CKD. 08/26/20 patient is seen and examined. Patient is on vent. WBC 17.9 and hemoglobin 8.3 hematocrit 25.6. Patient may have 1 episode of questionable seizure. Patient BUN is 56 creatinine 3.4. Will consult nephrology. We also start the patient on Rocephin 2 g IV daily and Zithromax. Aspirin 81 mg p.o. daily and Lipitor. Patient is having echocardiogram. Cardiology and critical care will see the patient as consult tension. Continue current management. We have started on NG tube feeding and consult nutrition for evaluation. Recheck CBC BMP in the morning. Case discussed with daughter Leena [phone] 08/27: Patient remains on full ventilatory support, considering concern for seizure yesterday under the circumstance of out of hospital cardiac arrest, and concern for anoxic encephalopathy, will proceed with Neurology consultation. 08/28: At the time my examination patient sedation of propofol 30 and fentanyl 1 was being held and she was on CMV tidal and 450, rate of 18, PEEP of 6 and FiO2 of 35%. Neurology was consulted. I updated the patient's daughter Leena Payton at bedside and told her of the pending tests the neurologist has ordered. 08/29: Increase in Lantus due to persistent hypoglycemia, chest ultrasound ordered for possible thoracentesis by [facility], MRI brain pending. Remove Foreman catheter if okay with nephrology. Increase in beta-skylar by [facility] however cardiology decreased hydralazine per neurology recommendatiuons. At the time my examination patient was on CPAP trial pressure support of 12, PEEP of 6 and 35% FiO2. RT obtain an ABG we will continue CPAP as tolerated. 08/30 No acute overnight events 7: given 80mg lasix by nephro, increase in lantus, Dulcolax suppository given for no recorded BM for 5 to 6 days 7/2: Patient did not have a further response to 80 mg of Lasix yesterday, no acute events reported overnight, patient is having several loose BMs 7/3: Patient was having facial twitching this morning, 1 mg of Ativan was given to the patient, Keppra was increased. No family at the bedside. 09/04: Patient continues to have facial twitching, neurology has made adjustments to medications for seizure control, spoke with critical care and the son at the bedside, family still deciding on the final route of care 09/05: Patient seen and examined in the ICU, continue to have social drinking. General surgery consulted for trach and PEG. Patient with CPAP vent setting. 09/06: Patient developed sinus bradycardia, cardiology consulted. Plan for trach and PEG placement postponed.. 09/07: Family wish to continue full CODE STATUS and wished to proceed with trach and PEG. Heart rate currently stable with dopamine. Patient remains on mechanical ventilation at CMV setting. Very poor prognosis. Continue to have facial twitching, neurology following appreciate recommendation 09/08/20: clinically no change, on mechanical ventilation. cont current care, plan for trach and PEG on Friday. family want full code. 09/09/20; cont supportive care, follow clinically. planned for trach and PEG next week. 09/10: Patients eldest Son at bedside and I updated him with all details. he informed me that family has decided to change code status to DNR and hospice. order placed. cont supportive care. 09/11 ELIJAH overnight; supportive care; pending family decision for trach/peg v hospice care Disposition Plan: hospice per family request Total Time Spent with Patient (Minutes): 60 - Patient Problems (1) Acute renal failure superimposed on chronic kidney disease Status: Acute (2) Acute respiratory failure Status: Deleted (3) Advance care planning Status: Acute (4) Anoxic brain injury Status: Acute (5) Anoxic encephalopathy Status: Acute (6) Cardiac arrest Status: Acute (7) DVT prophylaxis Status: Acute (8) Anemia Status: Chronic Qualifiers: Anemia type: unspecified type Qualified Code(s): D64.9 - Anemia, unspecified (9) Cardiomyopathy Status: Chronic (10) Diabetes Status: Chronic (11) Morbid obesity with BMI of 40.0-44.9, adult Status: Deleted History Interval history: No acute events overnight Hospitalist Physical - Constitutional Vitals: Temp Pulse Resp BP Pulse Ox 98.9 F 78 25 H 154/55 99 09/11/20 12:00 09/11/20 13:00 09/11/20 13:00 09/11/20 13:00 09/11/20 11:23 General appearance: Present: no acute distress, obese, other (pallor) - EENT Eyes: Present: PERRL ENT: clear oral mucosa - Neck Neck: Present: supple - Respiratory Respiratory effort: normal - Cardiovascular Rhythm: regular Heart Sounds: Present: S1 & S2 - Extremities Extremity abnormal: edema - Abdominal General gastrointestinal: soft - Integumentary Integumentary: Present: clear, warm, dry - Psychiatric Psychiatric: other - Allied Health Allied health notes reviewed: nursing, RT, social work, case management HEART Score - HEART Score Troponin: Troponin T 0.057 ng/mL (0.00-0.029) H 08/25/20 11:23 Results - Labs CBC & Chem 7: 09/10/20 06:50 09/11/20 04:30 Labs: Laboratory Last Values WBC 12.7 K/mm3 (4.5-11.0) H 09/10/20 06:50 RBC 2.78 M/mm3 (3.65-5.03) L 09/10/20 06:50 Hgb 7.1 gm/dl (10.1-14.3) L 09/10/20 06:50 Hct 22.3 % (30.3-42.9) L 09/10/20 06:50 MCV 80 fl (79-97) 09/10/20 06:50 MCH 26 pg (28-32) L 09/10/20 06:50 MCHC 32 % (30-34) 09/10/20 06:50 RDW 15.6 % (13.2-15.2) H 09/10/20 06:50 Plt Count 368 K/mm3 (140-440) 09/10/20 06:50 Lymph % (Auto) 4.0 % (13.4-35.0) L 09/10/20 06:50 [place] % (Auto) 5.3 % (0.0-7.3) 09/10/20 06:50 Eos % (Auto) 4.2 % (0.0-4.3) 09/10/20 06:50 Baso % (Auto) 0.1 % (0.0-1.8) 09/10/20 06:50 Lymph # (Auto) 0.5 K/mm3 (1.2-5.4) L 09/10/20 06:50 [place] # (Auto) 0.7 K/mm3 (0.0-0.8) 09/10/20 06:50 Eos # (Auto) 0.5 K/mm3 (0.0-0.4) H 09/10/20 06:50 Baso # (Auto) 0.0 K/mm3 (0.0-0.1) 09/10/20 06:50 Add Manual Diff Complete 08/26/20 05:04 Total Counted 100 08/26/20 05:04 Seg Neutrophils % 86.4 % (40.0-70.0) H 09/10/20 06:50 Seg Neuts % (Manual) 96.0 % (40.0-70.0) H 08/26/20 05:04 Band Neutrophils % 2.0 % 08/25/20 11:23 Lymphocytes % (Manual) 1.0 % (13.4-35.0) L 08/26/20 05:04 Monocytes % (Manual) 3.0 % (0.0-7.3) 08/26/20 05:04 Eosinophils % (Manual) 3.0 % (0.0-4.3) 08/25/20 11:23 Metamyelocytes % 1.0 % 08/25/20 11:23 Nucleated RBC % Not Reportable 08/26/20 05:04 Seg Neutrophils # 11.0 K/mm3 (1.8-7.7) H 09/10/20 06:50 Seg Neutrophils # Man 17.2 K/mm3 (1.8-7.7) H 08/26/20 05:04 Band Neutrophils # 0.0 K/mm3 08/26/20 05:04 Lymphocytes # (Manual) 0.2 K/mm3 (1.2-5.4) L 08/26/20 05:04 Abs React Lymphs (Man) 0.0 K/mm3 08/26/20 05:04 Monocytes # (Manual) 0.5 K/mm3 (0.0-0.8) 08/26/20 05:04 Eosinophils # (Manual) 0.0 K/mm3 (0.0-0.4) 08/26/20 05:04 Basophils # (Manual) 0.0 K/mm3 (0.0-0.1) 08/26/20 05:04 Metamyelocytes # 0.0 K/mm3 08/26/20 05:04 Myelocytes # 0.0 K/mm3 08/26/20 05:04 Promyelocytes # 0.0 K/mm3 08/26/20 05:04 Blast Cells # 0.0 K/mm3 08/26/20 05:04 WBC Morphology Not Reportable 08/26/20 05:04 Hypersegmented Neuts Not Reportable 08/26/20 05:04 Hyposegmented Neuts Not Reportable 08/26/20 05:04 Hypogranular Neuts Not Reportable 08/26/20 05:04 Smudge Cells Not Reportable 08/26/20 05:04 Toxic Granulation Not Reportable 08/26/20 05:04 Toxic Vacuolation Not Reportable 08/26/20 05:04 Dohle Bodies Not Reportable 08/26/20 05:04 Pelger-Huet Anomaly Not Reportable 08/26/20 05:04 Jannette Rods Not Reportable 08/26/20 05:04 Platelet Estimate Consistent w auto 08/26/20 05:04 Clumped Platelets Not Reportable 08/26/20 05:04 Plt Clumps, EDTA Not Reportable 08/26/20 05:04 Large Platelets Not Reportable 08/26/20 05:04 Giant Platelets Not Reportable 08/26/20 05:04 Platelet Satelliting Not Reportable 08/26/20 05:04 Plt Morphology Comment Not Reportable 08/26/20 05:04 RBC Morphology Not Reportable 08/26/20 05:04 Dimorphic RBCs Not Reportable 08/26/20 05:04 Polychromasia Not Reportable 08/26/20 05:04 Hypochromasia Not Reportable 08/26/20 05:04 Poikilocytosis Not Reportable 08/26/20 05:04 Anisocytosis 1+ 08/26/20 05:04 Microcytosis Not Reportable 08/26/20 05:04 Macrocytosis Not Reportable 08/26/20 05:04 Spherocytes Not Reportable 08/26/20 05:04 Pappenheimer Bodies Not Reportable 08/26/20 05:04 Sickle Cells Not Reportable 08/26/20 05:04 Target Cells Not Reportable 08/26/20 05:04 Tear Drop Cells Not Reportable 08/26/20 05:04 Ovalocytes Not Reportable 08/26/20 05:04 Helmet Cells Not Reportable 08/26/20 05:04 Fernando-[place] Bodies Not Reportable 08/26/20 05:04 [place] Rings Not Reportable 08/26/20 05:04 Lindsey Cells Not Reportable 08/26/20 05:04 Bite Cells Not Reportable 08/26/20 05:04 Crenated Cell Not Reportable 08/26/20 05:04 Elliptocytes Not Reportable 08/26/20 05:04 Acanthocytes (Spur) Not Reportable 08/26/20 05:04 Rouleaux Not Reportable 08/26/20 05:04 Hemoglobin C Crystals Not Reportable 08/26/20 05:04 Schistocytes Not Reportable 08/26/20 05:04 Malaria parasites Not Reportable 08/26/20 05:04 Shabbir Bodies Not Reportable 08/26/20 05:04 Hem Pathologist Commnt No 08/26/20 05:04 D-Dimer > 90124 ng/mlDDU (0-234) H 08/25/20 11:23 ABG pH 7.447 (7.320-7.450) 09/10/20 03:19 POC ABG pCO2 33.5 mmHg (32.0-48.0) 09/10/20 03:19 ABG pCO2 38.1 mm Hg 09/09/20 11:50 POC ABG pO2 97.5 mmHg (83-108) 09/10/20 03:19 ABG pO2 87.6 mm Hg (80.0-90.0) 09/09/20 11:50 POC ABG HCO3 22.6 09/10/20 03:19 ABG HCO3 22.7 mmol/L (20.0-26.0) 09/09/20 11:50 ABG O2 Saturation 97.5 (0-100) 09/10/20 03:19 ABG O2 Content 20.4 (0.0-44) 09/09/20 11:50 POC ABG Base Excess -1.1 09/10/20 03:19 ABG Base Excess -1.9 mmol/L (-2.0-3.0) 09/09/20 11:50 ABG Hemoglobin 8.4 (12.0-17.5) L 09/10/20 03:19 ABG Oxyhemoglobin 97.3 (94-98) 09/01/20 12:51 ABG Carboxyhemoglobin 1.7 % (0.0-5.0) 09/09/20 11:50 ABG Methemoglobin 0.4 % (0.0-1.5) 09/09/20 11:50 ABG Sodium 130.4 mmol/L (136.0-145.0) L 09/10/20 03:19 ABG Potassium 3.3 mmol/L (3.40-4.50) L 09/10/20 03:19 ABG Chloride 101.0 mmol/L (98-107) 09/10/20 03:19 ABG Glucose 158 mg/dL (65-95) H 09/10/20 03:19 Oxyhemoglobin 96.3 % (95.0-99.0) 09/09/20 11:50 Carboxyhemoglobin 0.4 (0.5-1.5) L 09/01/20 12:51 FiO2 30 % 09/09/20 11:50 FiO2 % 30.0 09/10/20 03:19 Sodium 138 mmol/L (137-145) 09/11/20 04:30 Potassium 3.6 mmol/L (3.6-5.0) 09/11/20 04:30 Chloride 101.8 mmol/L (98-107) 09/11/20 04:30 Carbon Dioxide 23 mmol/L (22-30) 09/11/20 04:30 Anion Gap 17 mmol/L 09/11/20 04:30 BUN 109 mg/dL (7-17) H 09/11/20 04:30 Creatinine 3.4 mg/dL (0.6-1.2) H 09/11/20 04:30 Estimated GFR 13 ml/min 09/11/20 04:30 BUN/Creatinine Ratio 32 % 09/11/20 04:30 Glucose 153 mg/dL (65-100) H 09/11/20 04:30 POC Glucose 142 mg/dL (70-105) H 09/11/20 11:46 Lactic Acid 1.80 mmol/L (0.7-2.0) 08/25/20 12:45 Calcium 7.9 mg/dL (8.4-10.2) L 09/11/20 04:30 Phosphorus 4.60 mg/dL (2.5-4.5) H 09/01/20 09:41 Magnesium 2.60 mg/dL (1.7-2.3) H 09/06/20 Unknown Total Bilirubin < 0.20 mg/dL (0.1-1.2) 08/28/20 04:19 AST 37 units/L (5-40) 08/28/20 04:19 ALT 27 units/L (7-56) 08/28/20 04:19 Alkaline Phosphatase 84 units/L (35-129) 08/28/20 04:19 Troponin T 0.057 ng/mL (0.00-0.029) H 08/25/20 11:23 C-Reactive Protein 7.80 mg/dL (0.00-1.30) H 08/26/20 18:50 Total Protein 4.8 g/dL (6.3-8.2) L 08/28/20 04:19 Albumin 2.4 g/dL (3.9-5) L 08/28/20 04:19 Albumin/Globulin Ratio 1.0 % 08/28/20 04:19 Triglycerides 111 mg/dL (2-149) 08/29/20 04:32 Cholesterol 158 mg/dL (50-199) 08/25/20 11:23 LDL Cholesterol Direct 101 mg/dL (50-130) 08/25/20 11:23 HDL Cholesterol 50 mg/dL (40-59) 08/25/20 11:23 Cholesterol/HDL Ratio 3.16 % 08/25/20 11:23 Procalcitonin 0.41 ng/mL (<0.15) 08/26/20 18:50 Arterial Blood Glucose 158 mg/dL (65-95) H 09/10/20 03:19 Arterial Blood Ionized Calcium 4.5 mg/dL (4.6-5.3) L 09/10/20 03:19 Urine Color Yellow (Yellow) 08/25/20 11:17 Urine Turbidity Cloudy (Clear) 08/25/20 11:17 Urine pH 7.0 (5.0-7.0) 08/25/20 11:17 Ur Specific [place] 1.012 (1.003-1.030) 08/25/20 11:17 Urine Protein >500 mg/dL (Negative) 08/25/20 11:17 Urine Glucose (UA) >=500 mg/dL (Negative) 08/25/20 11:17 Urine Ketones Neg mg/dL (Negative) 08/25/20 11:17 Urine Blood Sm (Negative) 08/25/20 11:17 Urine Nitrite Neg (Negative) 08/25/20 11:17 Urine Bilirubin Neg (Negative) 08/25/20 11:17 Urine Urobilinogen < 2.0 mg/dL (<2.0) 08/25/20 11:17 Ur Leukocyte Esterase Neg (Negative) 08/25/20 11:17 Urine WBC (Auto) 31.0 /HPF (0.0-6.0) H 08/25/20 11:17 Urine RBC (Auto) 28.0 /HPF (0.0-6.0) 08/25/20 11:17 U Epithel Cells (Auto) 5.0 /HPF (0-13.0) 08/25/20 11:17 Urine Bacteria (Auto) 1+ /HPF (Negative) 08/25/20 11:17 Urine WBC Clumps Few /HPF 08/25/20 11:17 Ur Renal Epithelial Cell 4 /LPF 08/25/20 11:17 Hyaline Casts 28 /LPF 08/25/20 11:17 Urine Creatinine 67.4 mg/dL (0.1-20.0) H 08/26/20 17:00 Urine Sodium 12 mmol/L 08/26/20 17:00 Valproic Acid 42.9 ug/mL (50-100) L 09/07/20 15:28 Coronavirus (PCR) Negative (Negative) 08/26/20 Unknown Foreman/IV: Voiding Method Indwelling Catheter Active Medications - Current Medications Current Medications: Generic Name Dose Route Start Last Admin Trade Name Freq PRN Reason Stop Dose Admin Albuterol 2.5 mg 08/25/20 14:55 Albuterol 2.5 Mg/3 Ml Nebu IH Q3HRT PRN Shortness Of Breath Lipase/Protease/Amylase 1 each 08/26/20 12:15 Lipase 10,500/Protease 25,000/Amylase 43,750 (Units) Dr Gu FEEDTUBE PRN PRN For Clogged Feeding Tube Aspirin 81 mg 08/27/20 10:00 09/11/20 10:39 Aspirin 81 Mg Tab Chew PO 81 mg QDAY TERA Administration Atorvastatin Calcium 40 mg 08/26/20 22:00 09/10/20 21:48 Atorvastatin 40 Mg Tab PO 40 mg QHS TERA Administration Atropine Sulfate 0.5 mg 09/05/20 13:09 09/05/20 13:44 Atropine 0.1% (1 Mg/10 Ml) Cardiac Syringe IV 0.5 mg Q5MIN PRN Administration Bradycardia Dextrose 50 ml 08/26/20 19:18 Dextrose 50% In Water (25gm) 50 Ml Syringe IV Q30MIN PRN Hypoglycemia Protocol Famotidine 20 mg 08/28/20 10:00 09/11/20 10:39 Famotidine 20 Mg Tab PO 20 mg DAILY TERA Administration Heparin Sodium (Porcine) 5,000 unit 08/26/20 22:00 09/11/20 10:39 Heparin 5,000 Unit/1 Ml Vial SUB-Q 5,000 unit Q12HR TERA Administration Hydralazine HCl 10 mg 08/26/20 01:20 09/11/20 12:16 Hydralazine 20 Mg/1 Ml Inj IV 10 mg Q4HR PRN Administration Blood Pressure Hydrophilic Ointment 1 applic 08/25/20 11:07 08/25/20 11:57 Lip Therapy Vaseline TP 1 applic Q2HR PRN Administration Dry Lips Levetiracetam 500 mg/ Dextrose 105 mls @ 400 mls/hr 09/04/20 11:00 09/11/20 10:39 IV 400 mls/hr Q12HR TERA Administration Valproate Sodium 750 mg/ 107.5 mls @ 100 mls/hr 09/05/20 14:00 09/11/20 05:53 Sodium Chloride IV 100 mls/hr Q8HR TERA Administration Dopamine HCl/Dextrose 800 mg in 250 mls @ 3.563 mls/hr 09/05/20 15:00 09/09/20 07:30 Intropin Drip 800 Mg/D5w 250 Ml IV 0 mcg/kg/min TITR TERA 0 mls/hr Titration Protocol 2 MCG/KG/MIN Midazolam HCl 100 mg/ Sodium 100 mls @ 1 mls/hr 09/06/20 14:00 09/09/20 10:30 Chloride IV 0 mg/hr TITR TERA 0 mls/hr Titration Protocol 1 MG/HR Lacosamide 200 mg/ Sodium 120 mls @ 100 mls/hr 09/11/20 18:00 Chloride IV Q12H TERA Insulin Glargine 25 units 09/01/20 22:00 09/10/20 21:48 Insulin Glargine 100 Units/Ml SUB-Q 25 units QHS TERA Administration Insulin Human Lispro 0 unit 08/27/20 12:00 09/11/20 12:17 Insulin Lispro 100 Unit/Ml SUB-Q Not Given Q6HR [facility] Protocol Levothyroxine Sodium 75 mcg 09/10/20 09:00 09/11/20 05:52 Levothyroxine 75 Mcg Tab PO 75 mcg DAILY@0600 TERA Administration Lorazepam 2 mg 09/03/20 15:12 09/05/20 13:41 Lorazepam 2 Mg/Ml Vial IV 2 mg Q1H PRN Administration Seizures Multi-Ingred Cream/Lotion/Oil/Oint 1 applic 08/25/20 11:07 Mineral Oil/Petrolatum, White Ophth Oint 3.5 Gm OU Q4HR PRN Dry Eye(s) Simple Syrup 15 ml 08/26/20 12:15 Simple Syrup 15 Ml FEEDTUBE PRN PRN Hypoglycemia Simple Syrup 30 ml 08/26/20 12:15 Simple Syrup 15 Ml FEEDTUBE PRN PRN Hypoglycemia Sodium Bicarbonate 325 mg 08/26/20 12:15 Sodium Bicarbonate 325 Mg Tab FEEDTUBE PRN PRN For Clogged Feeding Tube Sodium Chloride 10 ml 08/25/20 22:00 09/11/20 10:39 Sodium Chloride 0.9% 10 Ml Flush Syringe IV 10 ml BID TERA Administration Sodium Chloride 10 ml 08/25/20 14:55 08/29/20 04:05 Sodium Chloride 0.9% 10 Ml Flush Syringe IV 10 ml PRN PRN Administration LINE FLUSH Tamsulosin HCl 0.8 mg 09/06/20 10:00 09/11/20 10:39 Tamsulosin 0.4 Mg Cap PO 0.8 mg QDAY TERA Administration Nutrition/Malnutrition Assess - Dietary Evaluation Nutrition/Malnutrition Findings: Nutrition Notes Start: 08/26/20 10:21 Freq: Status: Active Protocol: Document 09/08/20 11:19 (Rec: 09/08/20 11:22 [id number]) Nutrition Notes Initial or Follow up Reassessment Current Diagnosis Acute Kidney Injury,CKD(stage I-IV),Diabetes,Hypertension, Heart Failure,Respiratory Failure Other Pertinent Diagnosis cardiac arrest, acute encephalopathy, pneu, anoxIC brain injury, GERD Current Diet Nepro 1.8 at 30 ml/hr Labs/Tests Na 135 BUN 110 Cr 3.7 Pertinent Medications dopamine Height 5 ft 5 in Weight 95 kg [place] Body Weight (kg) 56.81 BMI 34.8 Weight Status Obese Subjective/Other Information Observed TF at goal rate and pt is tolerating. Percent of energy/protein needs met: 100%/58% Burn Absent Trauma Absent Current % PO Negligible Minimum of two criteria No physical signs of malnutrition #1 Nutrition Diagnosis Inadequate oral intake Diagnosis Progress(for reassessment Continues documentation) Is patient on ventilator? Yes Is Patient Ambulatory and/or Out of Bed No REE-([place]. Jeor-confined to bed) 1735.212 Kcal/Kg value to use for calculation 13 Approximate Energy Requirements Using 1235 kcal/Kg Calculation Used for Recommendations Kcal/kg Additional Notes protein needs: >114g (>2 g/ kgIBW) fluid needs 1500 - 1900 ml or per MD order Nutrition Intervention Change Diet Order: Continue TF Nutrition Support: Nepro at 30 ml/hr with a free water flush of 130 ml q4h Kcal 1,296 Protein (gm) 58 Fluid (mL) 523 Goal #1 Meet at least 75% of kcal and protein needs as best as possible Anticipated Discharge Needs: unable to determine at this time Follow-Up By: 09/15/20 Additional Comments FU for TF tolerance - Attestation Statement I have reviewed and agreed w/ Malnutrition eval & tx plan: Yes <BRIAN RAM - Last Filed: 09/12/20 12:20> Assessment and Plan Assessment and plan: I saw and evaluated the patient. I agree with the findings and the plan of care as documented in the Nurse Practitioner's~note, with the following corrections and additions. Discussed with CM and patient will be discharged with inpt hospice per family wish Hospitalist Physical - Constitutional Vitals: Temp Pulse Resp BP Pulse Ox 98.1 F 79 21 167/61 96 09/11/20 17:00 09/11/20 18:00 09/11/20 18:00 09/11/20 18:00 09/11/20 17:00 HEART Score - HEART Score Troponin: Troponin T 0.057 ng/mL (0.00-0.029) H 08/25/20 11:23 Results - Labs CBC & Chem 7: 09/10/20 06:50 09/11/20 04:30 Labs: Laboratory Last Values WBC 12.7 K/mm3 (4.5-11.0) H 09/10/20 06:50 RBC 2.78 M/mm3 (3.65-5.03) L 09/10/20 06:50 Hgb 7.1 gm/dl (10.1-14.3) L 09/10/20 06:50 Hct 22.3 % (30.3-42.9) L 09/10/20 06:50 MCV 80 fl (79-97) 09/10/20 06:50 MCH 26 pg (28-32) L 09/10/20 06:50 MCHC 32 % (30-34) 09/10/20 06:50 RDW 15.6 % (13.2-15.2) H 09/10/20 06:50 Plt Count 368 K/mm3 (140-440) 09/10/20 06:50 Lymph % (Auto) 4.0 % (13.4-35.0) L 09/10/20 06:50 [place] % (Auto) 5.3 % (0.0-7.3) 09/10/20 06:50 Eos % (Auto) 4.2 % (0.0-4.3) 09/10/20 06:50 Baso % (Auto) 0.1 % (0.0-1.8) 09/10/20 06:50 Lymph # (Auto) 0.5 K/mm3 (1.2-5.4) L 09/10/20 06:50 [place] # (Auto) 0.7 K/mm3 (0.0-0.8) 09/10/20 06:50 Eos # (Auto) 0.5 K/mm3 (0.0-0.4) H 09/10/20 06:50 Baso # (Auto) 0.0 K/mm3 (0.0-0.1) 09/10/20 06:50 Add Manual Diff Complete 08/26/20 05:04 Total Counted 100 08/26/20 05:04 Seg Neutrophils % 86.4 % (40.0-70.0) H 09/10/20 06:50 Seg Neuts % (Manual) 96.0 % (40.0-70.0) H 08/26/20 05:04 Band Neutrophils % 2.0 % 08/25/20 11:23 Lymphocytes % (Manual) 1.0 % (13.4-35.0) L 08/26/20 05:04 Monocytes % (Manual) 3.0 % (0.0-7.3) 08/26/20 05:04 Eosinophils % (Manual) 3.0 % (0.0-4.3) 08/25/20 11:23 Metamyelocytes % 1.0 % 08/25/20 11:23 Nucleated RBC % Not Reportable 08/26/20 05:04 Seg Neutrophils # 11.0 K/mm3 (1.8-7.7) H 09/10/20 06:50 Seg Neutrophils # Man 17.2 K/mm3 (1.8-7.7) H 08/26/20 05:04 Band Neutrophils # 0.0 K/mm3 08/26/20 05:04 Lymphocytes # (Manual) 0.2 K/mm3 (1.2-5.4) L 08/26/20 05:04 Abs React Lymphs (Man) 0.0 K/mm3 08/26/20 05:04 Monocytes # (Manual) 0.5 K/mm3 (0.0-0.8) 08/26/20 05:04 Eosinophils # (Manual) 0.0 K/mm3 (0.0-0.4) 08/26/20 05:04 Basophils # (Manual) 0.0 K/mm3 (0.0-0.1) 08/26/20 05:04 Metamyelocytes # 0.0 K/mm3 08/26/20 05:04 Myelocytes # 0.0 K/mm3 08/26/20 05:04 Promyelocytes # 0.0 K/mm3 08/26/20 05:04 Blast Cells # 0.0 K/mm3 08/26/20 05:04 WBC Morphology Not Reportable 08/26/20 05:04 Hypersegmented Neuts Not Reportable 08/26/20 05:04 Hyposegmented Neuts Not Reportable 08/26/20 05:04 Hypogranular Neuts Not Reportable 08/26/20 05:04 Smudge Cells Not Reportable 08/26/20 05:04 Toxic Granulation Not Reportable 08/26/20 05:04 Toxic Vacuolation Not Reportable 08/26/20 05:04 Dohle Bodies Not Reportable 08/26/20 05:04 Pelger-Huet Anomaly Not Reportable 08/26/20 05:04 Jannette Rods Not Reportable 08/26/20 05:04 Platelet Estimate Consistent w auto 08/26/20 05:04 Clumped Platelets Not Reportable 08/26/20 05:04 Plt Clumps, EDTA Not Reportable 08/26/20 05:04 Large Platelets Not Reportable 08/26/20 05:04 Giant Platelets Not Reportable 08/26/20 05:04 Platelet Satelliting Not Reportable 08/26/20 05:04 Plt Morphology Comment Not Reportable 08/26/20 05:04 RBC Morphology Not Reportable 08/26/20 05:04 Dimorphic RBCs Not Reportable 08/26/20 05:04 Polychromasia Not Reportable 08/26/20 05:04 Hypochromasia Not Reportable 08/26/20 05:04 Poikilocytosis Not Reportable 08/26/20 05:04 Anisocytosis 1+ 08/26/20 05:04 Microcytosis Not Reportable 08/26/20 05:04 Macrocytosis Not Reportable 08/26/20 05:04 Spherocytes Not Reportable 08/26/20 05:04 Pappenheimer Bodies Not Reportable 08/26/20 05:04 Sickle Cells Not Reportable 08/26/20 05:04 Target Cells Not Reportable 08/26/20 05:04 Tear Drop Cells Not Reportable 08/26/20 05:04 Ovalocytes Not Reportable 08/26/20 05:04 Helmet Cells Not Reportable 08/26/20 05:04 [place] Bodies Not Reportable 08/26/20 05:04 [place] Rings Not Reportable 08/26/20 05:04 Freedom Cells Not Reportable 08/26/20 05:04 Bite Cells Not Reportable 08/26/20 05:04 Crenated Cell Not Reportable 08/26/20 05:04 Elliptocytes Not Reportable 08/26/20 05:04 Acanthocytes (Spur) Not Reportable 08/26/20 05:04 Rouleaux Not Reportable 08/26/20 05:04 Hemoglobin C Crystals Not Reportable 08/26/20 05:04 Schistocytes Not Reportable 08/26/20 05:04 Malaria parasites Not Reportable 08/26/20 05:04 Shabbir Bodies Not Reportable 08/26/20 05:04 Hem Pathologist Commnt No 08/26/20 05:04 D-Dimer > 29516 ng/mlDDU (0-234) H 08/25/20 11:23 ABG pH 7.447 (7.320-7.450) 09/10/20 03:19 POC ABG pCO2 33.5 mmHg (32.0-48.0) 09/10/20 03:19 ABG pCO2 38.1 mm Hg 09/09/20 11:50 POC ABG pO2 97.5 mmHg (83-108) 09/10/20 03:19 ABG pO2 87.6 mm Hg (80.0-90.0) 09/09/20 11:50 POC ABG HCO3 22.6 09/10/20 03:19 ABG HCO3 22.7 mmol/L (20.0-26.0) 09/09/20 11:50 ABG O2 Saturation 97.5 (0-100) 09/10/20 03:19 ABG O2 Content 20.4 (0.0-44) 09/09/20 11:50 POC ABG Base Excess -1.1 09/10/20 03:19 ABG Base Excess -1.9 mmol/L (-2.0-3.0) 09/09/20 11:50 ABG Hemoglobin 8.4 (12.0-17.5) L 09/10/20 03:19 ABG Oxyhemoglobin 97.3 (94-98) 09/01/20 12:51 ABG Carboxyhemoglobin 1.7 % (0.0-5.0) 09/09/20 11:50 ABG Methemoglobin 0.4 % (0.0-1.5) 09/09/20 11:50 ABG Sodium 130.4 mmol/L (136.0-145.0) L 09/10/20 03:19 ABG Potassium 3.3 mmol/L (3.40-4.50) L 09/10/20 03:19 ABG Chloride 101.0 mmol/L (98-107) 09/10/20 03:19 ABG Glucose 158 mg/dL (65-95) H 09/10/20 03:19 Oxyhemoglobin 96.3 % (95.0-99.0) 09/09/20 11:50 Carboxyhemoglobin 0.4 (0.5-1.5) L 09/01/20 12:51 FiO2 30 % 09/09/20 11:50 FiO2 % 30.0 09/10/20 03:19 Sodium 138 mmol/L (137-145) 09/11/20 04:30 Potassium 3.6 mmol/L (3.6-5.0) 09/11/20 04:30 Chloride 101.8 mmol/L (98-107) 09/11/20 04:30 Carbon Dioxide 23 mmol/L (22-30) 09/11/20 04:30 Anion Gap 17 mmol/L 09/11/20 04:30 BUN 109 mg/dL (7-17) H 09/11/20 04:30 Creatinine 3.4 mg/dL (0.6-1.2) H 09/11/20 04:30 Estimated GFR 13 ml/min 09/11/20 04:30 BUN/Creatinine Ratio 32 % 09/11/20 04:30 Glucose 153 mg/dL (65-100) H 09/11/20 04:30 POC Glucose 193 mg/dL (70-105) H 09/11/20 17:16 Lactic Acid 1.80 mmol/L (0.7-2.0) 08/25/20 12:45 Calcium 7.9 mg/dL (8.4-10.2) L 09/11/20 04:30 Phosphorus 4.60 mg/dL (2.5-4.5) H 09/01/20 09:41 Magnesium 2.60 mg/dL (1.7-2.3) H 09/06/20 Unknown Total Bilirubin < 0.20 mg/dL (0.1-1.2) 08/28/20 04:19 AST 37 units/L (5-40) 08/28/20 04:19 ALT 27 units/L (7-56) 08/28/20 04:19 Alkaline Phosphatase 84 units/L (35-129) 08/28/20 04:19 Troponin T 0.057 ng/mL (0.00-0.029) H 08/25/20 11:23 C-Reactive Protein 7.80 mg/dL (0.00-1.30) H 08/26/20 18:50 Total Protein 4.8 g/dL (6.3-8.2) L 08/28/20 04:19 Albumin 2.4 g/dL (3.9-5) L 08/28/20 04:19 Albumin/Globulin Ratio 1.0 % 08/28/20 04:19 Triglycerides 111 mg/dL (2-149) 08/29/20 04:32 Cholesterol 158 mg/dL (50-199) 08/25/20 11:23 LDL Cholesterol Direct 101 mg/dL (50-130) 08/25/20 11:23 HDL Cholesterol 50 mg/dL (40-59) 08/25/20 11:23 Cholesterol/HDL Ratio 3.16 % 08/25/20 11:23 Procalcitonin 0.41 ng/mL (<0.15) 08/26/20 18:50 Arterial Blood Glucose 158 mg/dL (65-95) H 09/10/20 03:19 Arterial Blood Ionized Calcium 4.5 mg/dL (4.6-5.3) L 09/10/20 03:19 Urine Color Yellow (Yellow) 08/25/20 11:17 Urine Turbidity Cloudy (Clear) 08/25/20 11:17 Urine pH 7.0 (5.0-7.0) 08/25/20 11:17 Ur Specific [place] 1.012 (1.003-1.030) 08/25/20 11:17 Urine Protein >500 mg/dL (Negative) 08/25/20 11:17 Urine Glucose (UA) >=500 mg/dL (Negative) 08/25/20 11:17 Urine Ketones Neg mg/dL (Negative) 08/25/20 11:17 Urine Blood Sm (Negative) 08/25/20 11:17 Urine Nitrite Neg (Negative) 08/25/20 11:17 Urine Bilirubin Neg (Negative) 08/25/20 11:17 Urine Urobilinogen < 2.0 mg/dL (<2.0) 08/25/20 11:17 Ur Leukocyte Esterase Neg (Negative) 08/25/20 11:17 Urine WBC (Auto) 31.0 /HPF (0.0-6.0) H 08/25/20 11:17 Urine RBC (Auto) 28.0 /HPF (0.0-6.0) 08/25/20 11:17 U Epithel Cells (Auto) 5.0 /HPF (0-13.0) 08/25/20 11:17 Urine Bacteria (Auto) 1+ /HPF (Negative) 08/25/20 11:17 Urine WBC Clumps Few /HPF 08/25/20 11:17 Ur Renal Epithelial Cell 4 /LPF 08/25/20 11:17 Hyaline Casts 28 /LPF 08/25/20 11:17 Urine Creatinine 67.4 mg/dL (0.1-20.0) H 08/26/20 17:00 Urine Sodium 12 mmol/L 08/26/20 17:00 Valproic Acid 42.9 ug/mL (50-100) L 09/07/20 15:28 Coronavirus (PCR) Negative (Negative) 08/26/20 Unknown Foreman/IV: Voiding Method Indwelling Catheter Nutrition/Malnutrition Assess - Dietary Evaluation Nutrition/Malnutrition Findings: Nutrition Notes Start: 08/26/20 10:21 Freq: Status: Discharge Protocol: Document 09/08/20 11:19 (Rec: 09/08/20 11:22 [id number]) Nutrition Notes Initial or Follow up Reassessment Current Diagnosis Acute Kidney Injury,CKD(stage I-IV),Diabetes,Hypertension, Heart Failure,Respiratory Failure Other Pertinent Diagnosis cardiac arrest, acute encephalopathy, pneu, anoxIC brain injury, GERD Current Diet Nepro 1.8 at 30 ml/hr Labs/Tests Na 135 BUN 110 Cr 3.7 Pertinent Medications dopamine Height 5 ft 5 in Weight 95 kg [place] Body Weight (kg) 56.81 BMI 34.8 Weight Status Obese Subjective/Other Information Observed TF at goal rate and pt is tolerating. Percent of energy/protein needs met: 100%/58% Burn Absent Trauma Absent Current % PO Negligible Minimum of two criteria No physical signs of malnutrition #1 Nutrition Diagnosis Inadequate oral intake Diagnosis Progress(for reassessment Continues documentation) Is patient on ventilator? Yes Is Patient Ambulatory and/or Out of Bed No REE-([facility]-confined to bed) 1735.212 Kcal/Kg value to use for calculation 13 Approximate Energy Requirements Using 1235 kcal/Kg Calculation Used for Recommendations Kcal/kg Additional Notes protein needs: >114g (>2 g/ kgIBW) fluid needs 1500 - 1900 ml or per MD order Nutrition Intervention Change Diet Order: Continue TF Nutrition Support: Nepro at 30 ml/hr with a free water flush of 130 ml q4h Kcal 1,296 Protein (gm) 58 Fluid (mL) 523 Goal #1 Meet at least 75% of kcal and protein needs as best as possible Anticipated Discharge Needs: unable to determine at this time Follow-Up By: 09/15/20 Additional Comments FU for TF tolerance
[2020-09-11] MEDS ORDERED: LACOSAMIDE 200 MG in SODIUM CHLORIDE 0.9% 100 ML IV SCH (18:00)
[2020-09-11 18:59] VITALS: BP 167/61
[2020-09-11] MEDS ORDERED: CALCIUM POLYCARBOPHIL 625 MG TAB PO SCH (22:00)
--- NOTE | 2020-09-12 15:16 | Discharge Summary ---
<ERICHMIN H. - Last Filed: 09/12/20 15:17> Providers - Providers Date of Admission: 08/25/20 14:55 Date of discharge: 09/11/20 Attending physician: BRIAN RAM 08/25/20 14:55 Consult to Physician [CONS] Routine Comment: Consulting Provider: RODRIGUEZ SALEH Physician Instructions: Reason For Exam: Respiratory Failure, cardiac arrest 08/25/20 19:04 Consult to Physician [CONS] Routine Comment: Consulting Provider: CHARLES CRAWFORD Physician Instructions: Reason For Exam: cardiac arrest 08/26/20 08:16 Consult to Physician [CONS] Routine Comment: Consulting Provider: JOSE ADLER Physician Instructions: Reason For Exam: ckd 08/26/20 11:04 Consult to Dietitian/Nutrition [CONS] Stat Physician Instructions: Reason For Exam: Reason for Consult: Write/Manage Tube Feeding 08/26/20 17:15 Consult to Physician [CONS] Routine Comment: Consulting Provider: JEREL STODDARD Physician Instructions: Reason For Exam: acute encephalopathy s/p cardiac arrest 09/04/20 12:47 Consult to Physician [CONS] Routine Comment: left mess. / dany Consulting Provider: SERVANDO MONTERROSO Physician Instructions: Reason For Exam: Trach & PEG 09/05/20 13:55 Midline [Consult to PICC Line RN] [CONS] Urgent Reason For Exam: poor venous access Type Line:: Midline Primary care physician: RN SANE Hospitalization Condition: Stable Hospital course: This is a 69-year-old female with OHS, DM, CKD stage IV, morbid obesity CHF, GERD, HTN, chronic respiratory failure on 3 L of home oxygen via nasal cannula who presented to the emergency department on 08/25 after being found down unresponsive at 0950 hours by family and upon EMS arrival she was unresponsive and asystolic arrest. Patient was treated with ACLS protocol with eventual ROSC after at least 15 minutes of ACLS and patient was transported to [facility]. In the emergency department patient was found to have acute hypoxic respiratory failure and subsequently intubated on vasopressor support, she underwent a CXR which showed bilateral pneumonia and exam is consistent with SIRS. CCM and cardiology were consulted and patient was admitted to the hospital service with acute hypoxic respiratory failure, anoxic encephalopathy, s/p cardiac arrest, multifocal pneumonia, FLORIDALMA on CKD. 08/26/20 patient is seen and examined. Patient is on vent. WBC 17.9 and hemoglobin 8.3 hematocrit 25.6. Patient may have 1 episode of questionable seizure. Patient BUN is 56 creatinine 3.4. Will consult nephrology. We also s tart the patient on Rocephin 2 g IV daily and Zithromax. Aspirin 81 mg p.o. daily and Lipitor. Patient is having echocardiogram. Cardiology and critical care will see the patient as consult tension. Continue current management. We have started on NG tube feeding and consult nutrition for evaluation. Recheck CBC BMP in the morning. Case discussed with daughter Leena [phone] 08/27: Patient remains on full ventilatory support, considering concern for seizure yesterday under the circumstance of out of hospital cardiac arrest, and concern for anoxic encephalopathy, will proceed with Neurology consultation. 08/28: At the time my examination patient sedation of propofol 30 and fentanyl 1 was being held and she was on CMV tidal and 450, rate of 18, PEEP of 6 and FiO2 of 35%. Neurology was consulted. I updated the patient's daughter Leena Payton at bedside and told her of the pending tests the neurologist has ordered. 08/29: Increase in Lantus due to persistent hypoglycemia, chest ultrasound ordered for possible thoracentesis by [facility], MRI brain pending. Remove Foreman catheter if okay with nephrology. Increase in beta-skylar by [facility] however cardiology decreased hydralazine per neurology recommendatiuons. At the time my examination patient was on CPAP trial pressure support of 12, PEEP of 6 and 35% FiO2. RT obtain an ABG we will continue CPAP as tolerated. 08/30 No acute overnight events 08/31: given 80mg lasix by nephro, increase in lantus, Dulcolax suppository given for no recorded BM for 5 to 6 days 7: Patient did not have a further response to 80 mg of Lasix yesterday, no acute events reported overnight, patient is having several loose BMs 09/02: Patient was having facial twitching this morning, 1 mg of Ativan was given to the patient, Keppra was increased. No family at the bedside. 09/04: Patient continues to have facial twitching, neurology has made adjustments to medications for seizure control, spoke with critical care and the son at the bedside, family still deciding on the final route of care 09/05: Patient seen and examined in the ICU, continue to have social drinking. General surgery consulted for trach and PEG. Patient with CPAP vent setting. 09/06: Patient developed sinus bradycardia, cardiology consulted. Plan for trach and PEG placement postponed.. 09/07: Family wish to continue full CODE STATUS and wished to proceed with trach and PEG. Heart rate currently stable with dopamine. Patient remains on mechanical ventilation at CMV setting. Very poor prognosis. Continue to have facial twitching, neurology following appreciate recommendation 09/08/20: clinically no change, on mechanical ventilation. cont current care, plan for trach and PEG on Friday. family want full code. 09/09/20; cont supportive care, follow clinically. planned for trach and PEG next week. 09/10: Patients eldest Son at bedside and I updated him with all details. he informed me that family has decided to change code status to DNR and hospice. order placed. cont supportive care. 09/11 ELIJAH overnight; supportive care; pending family decision for trach/peg v hospice care Assessment and Plan Assessment and plan: This is a 75-year-old female with CHF, OHS DM, CKD, morbid obesity, GERD, hypertension, chronic respiratory failure admitted s/p cardiac arrest NEURO Anoxic encephalopathy -Neurology consulted, appreciate recommendations -08/25 [address] head shows no CT evidence of acute abnormality -08/28 MRI brain without contrast -08/30 EEG completed see report Seizure -Keppra, vimpat and depakote -Seizure/aspiration precautions -opens eyes; PERRL; neg threat; pos cough; withdrawal to painful stimuli x 4 extremitires Pt has 8 living children- daughter at bedside and has expressed that the family has decided to pursue hospice are- Director Of Distribution aware DNR Case Management following 1600 UPDATE- pt will discharge from ICU to inpt hospice today family at bedside CV- bradycardia resolved SR- no further jo ann; rate in 70's monitor QT given sz medications had been on dopamine gtt; has PRN atropine if needed S/p cardiac arrest with prolonged down time- see ER note -ddimer elevated on admit following cardiac arrest -Cardiology has seen and signed off- call if needed -08/25 echocardiogram shows LVEF 40 to 45%, LV normal size, LV systolic function mildly decreased, mild diastolic dysfunction, mildly dilated right ventricle, pulmonary hypertension RVSP 45 mmHg -asa and statin Hypertension -home norvasc -Blood pressure monitoring per protocol -PRN hydral for HTN RESP Acute hypoxic respiratory failure; chronic resp failure -Chronic respiratory insufficiency at home with 3 L oxygen via nasal cannula -remains intubated and ventilated -Wean as tolerated; trend pulse ox -CCM following -VAP bundle -nebs as needed Multifocal pneumonia/ ? aspiration event -08/25 CXR shows worsening patchy bilateral pulmonary opacities -08/25 CTA chest shows no evidence of pulmonary embolism, bilateral pulmonary processes with large bilateral pleural effusions, pneumonia is a concern, pulmonary edema could be a similar appearance versus pulmonary edema GI protein roberto carlos malnutrition; diarrhea PPI for GI prophylaxis TF per nutrition BMS for diarrhea adding fiber to diet FLORIDALMA on CKD secondary to patient under nephropathy; hypok -Nephrology consulted, patient recommendations -Daily weights -Avoid nephrotoxic medications; avoid NITIN/ARB -trend and replace electrolytes as needed -Trend Cr -foreman in place for strict I/O has had urinary retention when foreman was d/c and bladder scanning was done flomax d/c now that foreman has been placed -pt was net pos 112 ml over the last 24 hours HEME Anemia -Admit H/H 8.6/27.8 -Transfuse for hemoglobin less than 7 -Trend CBC -no bleeding on exam VTE prophylaxis with SCD and SQH ID pneumonia- improved -trend WBC and temp curve -afebrile -on no antibiotics -covid neg on admit ENDO Diabetes mellitus -SSI and scheduled lantus -Accu-Cheks every 6h -avoid hypoglycemia -hx obesity DVT/GI prophylaxis: SCDs to bilateral lower extremities heparin subcu, PPI Disposition: transfer to hospice Lines: PIV; foreman [facility] Final Discharge Diagnosis (Prints w/discharge instructions): PREMA, Seizure, Bradycardia, s/p cardiac arrest, hypertension, acute on chronic hypoxic respiratory failure, PNA, FLORIDALMA on CKDAnemia, DM, obesity Time spent for discharge: 35 Core Measure Documentation - Palliative Care Palliative Care/ Comfort Measures: Hospice Care Exam - Physical Exam Narrative exam: General appearance: Present: no acute distress, obese, other (pallor) - EENT Eyes: Present: PERRL ENT: clear oral mucosa - Neck Neck: Present: supple - Respiratory Respiratory effort: normal - Cardiovascular Rhythm: regular Heart Sounds: Present: S1 & S2 - Extremities Extremity abnormal: edema - Abdominal General gastrointestinal: soft - Integumentary Integumentary: Present: clear, warm, dry - Psychiatric Psychiatric: other - Allied Health Allied health notes reviewed: nursing, RT, social work, case management - Constitutional Vitals: Temp Pulse Resp BP Pulse Ox 98.1 F 79 21 167/61 96 09/11/20 17:00 09/11/20 18:00 09/11/20 18:00 09/11/20 18:00 09/11/20 17:00 Plan Activity: other Wound: per wound nurse instructions Special Instructions: home hospice Follow up with: PRIMARY CARE, [Primary Care Provider] - 7 Days <BRIAN RAM - Last Filed: 09/14/20 09:25> Providers - Providers Date of Admission: 08/25/20 14:55 Attending physician: BRIAN RAM 08/25/20 14:55 Consult to Physician [CONS] Routine Comment: Consulting Provider: RODRIGUEZ SALEH Physician Instructions: Reason For Exam: Respiratory Failure, cardiac arrest 08/25/20 19:04 Consult to Physician [CONS] Routine Comment: Consulting Provider: CHARLES CRAWFORD Physician Instructions: Reason For Exam: cardiac arrest 08/26/20 08:16 Consult to Physician [CONS] Routine Comment: Consulting Provider: JOSE ADLER Physician Instructions: Reason For Exam: ckd 08/26/20 11:04 Consult to Dietitian/Nutrition [CONS] Stat Physician Instructions: Reason For Exam: Reason for Consult: Write/Manage Tube Feeding 08/26/20 17:15 Consult to Physician [CONS] Routine Comment: Consulting Provider: JEREL STODDARD Physician Instructions: Reason For Exam: acute encephalopathy s/p cardiac arrest 09/04/20 12:47 Consult to Physician [CONS] Routine Comment: left mess. / dany Consulting Provider: SERVANDO MONTERROSO Physician Instructions: Reason For Exam: Trach & PEG 09/05/20 13:55 Midline [Consult to PICC Line RN] [CONS] Urgent Reason For Exam: poor venous access Type Line:: Midline Primary care physician: RN SANE Hospitalization Hospital course: I saw and evaluated the patient. I agree with the findings and the plan of care as documented in the Nurse Practitioner's~note, Exam - Constitutional Vitals: Temp Pulse Resp BP Pulse Ox 98.1 F 79 21 167/61 96 07/12/21 17:00 09/11/20 18:00 09/11/20 18:00 09/11/20 18:00 09/11/20 17:00
== END 2020-09-11 18:50 | disposition hospice, inpatient (51) | DRG 207 ==
LOC: ED 10:58 → CC1 14:55
PROVIDERS: ADMIT Internal Medicine; ATTEND Internal Medicine
PROC: 5A1955Z Respiratory Ventilation, Greater than 96 Consecutive Hours (ICD-10-PCS; principal; 2020-08-25)
PROC: 0BH17EZ Insertion of Endotracheal Airway into Trachea, Via Natural or Artificial Opening (ICD-10-PCS; 2020-08-25)
PROC: 4A033R1 Measurement of Arterial Saturation, Peripheral, Percutaneous Approach (ICD-10-PCS; 2020-08-25)
PROC: 06HY33Z Insertion of Infusion Device into Lower Vein, Percutaneous Approach (ICD-10-PCS; 2020-09-05)
DX: J96.01 Acute respiratory failure with hypoxia (principal); I46.9 Cardiac arrest, cause unspecified; J18.9 Pneumonia, unspecified organism; N17.0 Acute kidney failure with tubular necrosis; I21.4 Non-ST elevation (NSTEMI) myocardial infarction; G93.41 Metabolic encephalopathy; I63.9 Cerebral infarction, unspecified; G93.1 Anoxic brain damage, not elsewhere classified; N18.4 Chronic kidney disease, stage 4 (severe); E66.2 Morbid (severe) obesity with alveolar hypoventilation; I42.9 Cardiomyopathy, unspecified; G45.9 Transient cerebral ischemic attack, unspecified; G25.9 Extrapyramidal and movement disorder, unspecified; E87.2 Acidosis; Z20.822 Contact with and (suspected) exposure to COVID-19; R13.12 Dysphagia, oropharyngeal phase; E87.70 Fluid overload, unspecified; R56.9 Unspecified convulsions; E87.5 Hyperkalemia; R33.9 Retention of urine, unspecified; D64.9 Anemia, unspecified; I50.9 Heart failure, unspecified; R74.01 Elevation of levels of liver transaminase levels; I11.0 Hypertensive heart disease with heart failure; E11.22 Type 2 diabetes mellitus with diabetic chronic kidney disease; E11.21 Type 2 diabetes mellitus with diabetic nephropathy; E11.40 Type 2 diabetes mellitus with diabetic neuropathy, unspecified; P19.9 Metabolic acidemia in newborn, unspecified; K21.9 Gastro-esophageal reflux disease without esophagitis; Z83.3 Family history of diabetes mellitus; Z82.49 Family history of ischemic heart disease and other diseases of the circulatory system; Z63.5 Disruption of family by separation and divorce; Z68.33 Body mass index [BMI] 33.0-33.9, adult; Z90.710 Acquired absence of both cervix and uterus; Z79.4 Long term (current) use of insulin
CPT/HCPCS: 36415; 36600; 70450; 70551; 71045; 71275; 74177; 76604; 80048; 80053; 80061; 80164; 81001; 82140; 82570; 82803; 82805; 82962; 83735; 84100; 84145; 84300; 84478; 84484; 85007; 85025; 85027; 85379; 86140; 87040; 87070; 87086; 87205; 93005; 93306; 94002; 94003; 95819; 96365; 96375; G0378; A9270-GY; C9254; J0360; J0461; J0610; J0696; J1265; J1644; J1815; J1940; J1953; J1956; J2060; J2250; J2704; J3010; J7030; Q9967; U0003